=== PATIENT | female | born 1965 | race Two or more races ===

== ENCOUNTER 2025-03-26 10:30 | Inpatient (IN) | payer MEDICAID, SELFPAY ==
[2025-03-26] VITALS (82 sets, daily range): BP systolic 72–193; BP diastolic 50–134; PULSE 66–100; RESP 12–48; TEMP 36.9–38.8; O2SAT 77–100; BMI 35.6
--- NOTE | 2025-03-26 | XR_ITS ---
Examinations: MRI Brain without intravenous contrast. MRA brain without intravenous contrast. MRA carotids without intravenous contrast 3-D vascular reconstructions Date and time of exam: March 26, 2025, 1659 hours INDICATIONS: Altered mental status today, Acute-appearing right frontal lobe areas of edema on CT brain scan today Technique: Multiple axial and sagittal images of the brain have been obtained MRA brain carotid images without contrast obtained, including 3-D postprocessing, vascular maximum intensity projection images Findings: [place] is not enlarged. The optic chiasm and infundibular stalk are not remarkable. Prepontine and interpeduncular cisterns are not enlarged. No localized enlargement of the medulla or barbara. Fourth ventricle and cerebellar tonsils normal in position. Subacute hemorrhage is not seen. Fourth ventricle is midline. Mass in the cerebellopontine angle region is not evident. 7th and 8th nerve complexes exhibits symmetry. Globes are symmetrical with no retro-orbital mass. Increased white matter signal prominent Diffusion-weighted images demonstrate foci restricted diffusion including deficits on the ADC map, including right occipital lobe, left occipital lobe, bilateral frontal lobes, bilateral parietal lobes Mass-effect upon the ventricular system is not identified. MRA carotid images degraded by patient motion. MRA brain images no large vessel occlusions Impression: Multiple embolic-type foci of restricted diffusion bilateral occipital lobes, bilateral frontal and bilateral parietal lobes most consistent with acute infarcts I would recommend follow-up brain MRI post intravenous contrast to exclude less likely possibility of cerebral metastases
--- NOTE | 2025-03-26 10:38 | EDNOTE_ITS ---
Altered Mental Status RME/HPI General Chief Complaint: Altered Mental Status Stated Complaint: AMS Time Seen by Provider: 03/26/25 10:38 Arrival date/time: 03/26/25 10:30 RME / HPI RME / HPI narrative: DR. BATES MAIN ED EVALUATION: 59-year-old female with past medical history of diabetes mellitus and opioid use presents to the Emergency Department [facility] from home with complaint of altered mental status. Per EMS, patient was noted to have altered mental status with respiratory rate of 4 en route. Narcan was administered, total of 8 mg, resulting in improved mentation. Upon becoming more awake she complained of hurting in the bones , but continues to be altered. History is limited. Related Data Allergies Allergy/AdvReac Type Severity Reaction Status Date / Time No Known Allergies Allergy Verified 03/26/25 11:03 Review of Systems Review of Systems ROS Unobtainable: unobtainable due to mental status Past Medical History Past Medical History Comments PMH COMMENT: diabetes mellitus and opioid use ED Exam Narrative Physical exam: Constitutional: Awake, alert, nontoxic, no acute distress HEENT: NC, AT, EOMI Neck: Supple CV: RRR, no m/r/g Lungs: CTAB, no w/r/r, no respiratory distress. Abd: Soft, NT, NT, no HSM noted to palpation Extremities: Large ulceration in the right distal leg, anterior aspect; chronic venous changes in bilateral legs. Neuro: AAOx3, CN 2-12 GIBL, no acute neuro deficit noted. Skin: Warm, dry, intact Course Course Course Narrative: 1138h: Patient with history of diabetes, on methadone. Likely opiate overdose this morning. Did respond to 4 mg intranasal Narcan x 2 for total 8 mg prior to arrival with improved mentation though still quite sleepy on arrival. Was given an additional 0.4 mg IV Narcan with significant improvement in mentation as well as blood pressure though now is quite combative and requiring restraints. Patient did require BiPAP due to hypoxia and respiratory distress on arrival. ABG has been ordered and is currently pending at this time. Patient combative, stating that she hurts all over and stating 'I gotta get out of here , yelling loudly. Required dose of versed 2mg IV. Sepsis alert was called due to abnormal vitals and elevated rectal temperature. All labs pending at this time. Chest x-ray does show infiltrate in addition to pulmonary edema. Aspiration? Dose of Abx ordered in addition to lasix given concern for pb mild pulmonary edema possibly secondary to narcan used for narcotic reversal. 1237h: labs reviewed - bgl noted to be elevated 500's. Insulin dose ordered. 1245: Reviewed head CT findings, most consistent with acute right frontal lobe infarcts. A stroke alert was called. 1310h: Teleneurology evaluated patient. Stroke is noted on CT. Likely greater than 4 hours old. Patient does have renal dysfunction -unknown if new or not. GFR is 19. Teleneurology requesting numbers of family to discuss. ED had tried calling them, no answer. Numbers were given to neuro. 1324h: Teleneurology called back. Request that instead of CT angio we do an MRA of the head and neck as well as MRI brain without contrast. Ordered. 1358h: Patient going for MRI now. Family is at bedside and confirmed that patient's last known well was at 1030 last night. Patient was found on the floor by her at 5:00 this morning. He tried to arouse her and when he could not he left her there and went to work after he called patient's sister. Patient's sister arrived at around 9:00 this morning and found patient still lying on the floor of the bathroom. Patient sister reports that her medical history includes diabetes, asthma, hypertension, chronic right leg wound for the past year. Notes that she used to be on methadone but has been off methadone for a while as patient stopped the medication herself. Patient's lactate has come back elevated at 4. Blood pressure is in the 80s systolic. Patient's sister notes also that she has had a cough ongoing for the past few days. Given the cough, fever, abnormal lung sounds, x-ray findings, and lab results thus far, consistent with pneumonia. She is already receiving IV antibiotics now. Will give fluid bolus. 1450h: While preparing to take patient to MRI, they were unable to take her with BiPAP. When removing BiPAP, sats noted to dip down to the low 90s. Airway not secure. Decision made to intubate patient. See procedure note. Breath sounds heard bilaterally. Post intubation x-ray ordered. 1525h: Chest x-ray reviewed. Initial x-ray showing tube just at the right bronchus. Pulled back 2 cm and x-ray repeated. Repeat chest x-ray okay. Tube secured at 22 cm at the lip. 1800h: Patient currently in MRI. In stable condition at this time. Diagnoses include pneumonia, stroke, sepsis, UTI. Receiving IV fluids, IV antibiotics. Repeat lactate pending. Repeat blood gas pending as well. ICU has evaluated patient for admission. If MRI is negative, plan to admit at this facility. Patient is signed out to Dr. Wilkins pending MRI. Quality Measures none Orders Category Date Time Status 24 HR Medical Restraints Q2HR Care 03/26/25 10:30 Completed Pool Finisher NOW Care 03/26/25 10:38 Active Continuous Pulse Oximetry NOW Care 03/26/25 10:38 Completed EKG (ED ONLY) *Do not use* NOW Care 03/26/25 10:38 Completed Insert IV STAT Care 03/26/25 10:38 Active MRI Screening NOW Care 03/26/25 13:23 Active Consult to Neurology / Tele-Neurology Routine Cons 03/26/25 12:[address] angio stroke protocol Stat Exams 03/26/25 12:[address] head/brain wo con Stat Exams 03/26/25 11:28 Completed EKG (ED Only) Stat Exams 03/26/25 10:38 Draft MR stroke protocol brain wo con with MRA head and neck Exams 03/26/25 Ordered Stat XR chest 1V portable Stat Exams 03/26/25 10:38 Completed XR chest 1V post procedure Stat Exams 03/26/25 14:53 Completed ABG [Arterial Blood Gas] Stat Lab 03/26/25 15:42 Ordered ABG [Arterial Blood Gas] Stat Lab 03/26/25 16:23 Ordered Arterial Blood Gas Stat Lab 03/26/25 11:44 Completed B-Type Natriuretic Peptide Stat Lab 03/26/25 12:05 Completed Beta Hydroxybutyrate Stat Lab 03/26/25 15:02 Completed Blood Culture (Lab) Stat Lab 03/26/25 12:05 Received CBC Stat Lab 03/26/25 12:05 Completed Comprehensive Metabolic Panel Stat Lab 03/26/25 11:18 Completed Creatine Kinase Stat Lab 03/26/25 11:18 Completed Drug Screen,Urine Stat Lab 03/26/25 13:27 Completed Lactate (Lactic Acid) Stat Lab 03/26/25 13:36 Completed Lactic Acid, 3 HR Stat Lab 03/26/25 16:46 Ordered Magnesium Stat Lab 03/26/25 11:18 Completed Partial Thromboplastin Time Stat Lab 03/26/25 12:05 Completed Procalcitonin Stat Lab 03/26/25 11:18 Completed Prothrombin Time with INR Stat Lab 03/26/25 12:05 Completed Sputum Culture and Gram Stain Stat Lab 03/26/25 16:20 Received Troponin I Stat Lab 03/26/25 11:18 Completed Urinalysis Stat Lab 03/26/25 13:27 Completed Urine Culture Stat Lab 03/26/25 13:27 Received VBG [Venous Blood Gas] Stat Lab 03/26/25 11:18 Completed ALBUTEROL RT 3ml [Proventil Rt 3ml] Med 03/26/25 10:39 Discontinued 2.5 mg INH X1 ONE Acetaminophen Ivpb [Ofirmev Inj] Med 03/26/25 13:25 Discontinued 1,000 mg in 100 ml IV NOW Albuterol/Ipratr Rt Jennifer [Duoneb Rt Jennifer] Med 03/26/25 10:39 Discontinued 3 ml INH X1 ONE Dexmedetomidine 400 Mcg Ivpb [Precedex Ivpb] Med 03/26/25 14:22 Active 400 mcg in 100 ml IV 0.2 mcg/kg/hr Doxycycline Inj [Vibramycin Inj] 100 mg Med 03/26/25 12:40 Discontinued Sodium Chloride 0.9% (Pop) [NS 0.9% mini bag] 100 ml IV X1 Etomidate Inj [Amidate Inj] Med 03/26/25 14:12 Discontinued 20 mg .ROUTE .STK-MED ONE Furosemide Inj [Lasix Inj] Med 03/26/25 11:27 Discontinued 60 mg IVP X1 ONE Insulin Regular Med 03/26/25 12:36 Discontinued 10 unit IV X1 ONE Ketamine Inj Med 03/26/25 14:18 Discontinued 100 mg IVP X1 ONE Midazolam Inj [Versed Inj] Med 03/26/25 11:16 Discontinued 2 mg IV PRN ONE NALOXONE INJ (Syringe) [Narcan Inj (Syringe)] Med 03/26/25 10:39 Discontinued 0.4 mg IV X1 ONE Ringers Lactated 1000 ml [Lactated Ringers] 1,000 ml Med 03/26/25 17:51 Active IV 999 mls/hr Rocuronium Inj [Zemuron Inj] Med 03/26/25 14:13 Discontinued 100 mg .ROUTE .STK-MED ONE Rocuronium Inj [Zemuron Inj] Med 03/26/25 14:18 Discontinued 88 mg IV X1 ONE Sodium Chloride 0.9% 1000 ml [Ns] 1,000 ml Med 03/26/25 13:58 Discontinued IV 999 mls/hr Sodium Chloride Rt Jennifer 10% [NS Rt Jennifer 10%] Med 03/26/25 15:42 Discontinued 5 ml INH X1 ONE cefTRIAXone/D5w 1gm IV premix [Rocephin/D5w 1gm IV Med 03/26/25 12:40 Active premix] 1 gm in 50 ml IV QDAY BiPAP / CPAP NOW RT 03/26/25 11:10 Active Oxygen Delivery NOW RT 03/26/25 10:38 Active Sputum Induction PRN RT 03/26/25 15:45 Ordered Vital Signs Vital signs: Vital Signs Temperature 101.3 F H 03/26/25 10:30 Pulse Rate 94 03/26/25 10:30 Respiratory Rate 35 H 03/26/25 10:30 Blood Pressure 107/78 03/26/25 10:30 Pulse Oximetry (%) 98 03/26/25 10:30 Oxygen Delivery Method BiPAP 03/26/25 10:30 Fraction of Inspired Oxygen 100 03/26/25 10:30 PROCEDURES: Intubation Time out performed: Yes sedative: Ketamine Mg Given: 100 paralytic: Rocuronium Mg Given: 88 Laryngoscope: Ava (4) ET Tube Size: 7 ET Tube Uncuffed: No Tube Secured Depth (cm): 24 Tube Secured Location: lips Tube Placement Confirmation: visualized tube passing through cords, equal breath sounds bilaterally, no breath sounds over epigastrium and confirmation by capnometry Patient Tolerated Procedure: well and no complications Intubation Complications: none Altered Mental Status MDM Narrative MDM Narrative:: INancy, am scribing for and in the presence of Dr. Bates. Patient data External records reviewed:: EMS form Clinical information provided by:: EMS Social determinants that could affect healthcare access:: substance use Patient has the following chronic illnesses:: diabetes mellitus and opioid use How is presenting disease/condition affected by chronic disease/condition?: exacerbated by Evaluation data The following diagnostics were reviewed and interpreted by me:: lab results, radiology exam(s) and EKG tracing(s) (My interpretation: EKG performed at 1042 hours, sinus rhythm, rate 92, no STEMI ) Lab and/or radiology exams considered but not ordered:: none Interpretation Summary: Procedure(s): CT head/brain wo con Accession Number(s): [id number] cc: Rao Weller MD; Lila Bates MD; NO PRIMARY/FAMILY,PHYSICIAN~ Examination: CT brain head without contrast. 2-D sagittal coronal reconstructions Date and time of exam:March 26, 2025, 1230 hours INDICATIONS: Altered mental status today CTDI: vol (mGy):49.1 DLP: (mGycm):1036 Technique: Multiple CT axial sections of the brain have been obtained, 5 mm slice thickness. Contrast has not been administered. 2-D sagittal, coronal reconstructions have been obtained Low dose protocols were performed. One or more of the following dose reduction techniques were used; automated exposure control, adjustment of the mA and/or KV according to patient size, use of iterative reconstruction technique. Findings: Abnormal low density areas in the right frontal lobe which appear acute, axial image 13 measuring 16 mm and axial image 23, measuring 19 mm No acute hemorrhage Ventricles are normal in size Cranial vault intact IMPRESSION: Findings most consistent with acute right frontal lobe infarcts, recommend brain MRI MRA stroke protocol follow-up Dictated By: Rao Weller MD Procedure(s): XR chest 1V post procedure Accession Number(s): [id number] cc: Rao Weller MD; Lila Bates MD; NO PRIMARY/FAMILY,PHYSICIAN~ Examination: AP chest single view TECHNIQUE: AP portable supine chest single view Date and time: 03/26/2025 1524 hours, comparison March 26, 2025 INDICATIONS: Hypoxic respiratory failure postintubation FINDINGS: Endotracheal tube tip 11 mm above jerardo Heart failure with cardiomegaly vascular congestion no pulmonary edema Bibasilar pneumonia Prominent osteopenia IMPRESSION: Heart failure pattern Significant bibasilar pneumonia and/or edema, clinical correlation advised Endotracheal tube tip 11 mm above jerardo Dictated By: Rao Weller MD Procedure(s): XR chest 1V portable Accession Number(s): [id number] cc: Rao Weller MD; Lila Bates MD~ Examination: AP chest single view TECHNIQUE: AP portable semiupright chest single view Date and time: March 26, 2025 1053 hours INDICATIONS: Shortness of breath today. FINDINGS: Bibasilar pneumonia. Mild prominence left ventricle Moderate vascular congestion including central vascular engorgement Prominent osteopenia IMPRESSION: Bibasilar pneumonia Suspicious for mild associated heart failure Dictated By: Rao Weller MD Medications / Prescriptions Medications or Prescriptions considered but not ordered:: none Medication administrations:: Medication Administration History Ceftriaxone Sodium/Dextrose (Rocephin/D5w 1gm Iv Premix) 1 gm in 50 mls @ 100 mls/hr IV QDAY CRIS Stop: 04/02/25 12:39 Last Infusion: 03/26/25 14:09 Dose: Infused Documented By: Admin: 03/26/25 13:09 Dose: 100 mls/hr Documented By: ELLIE Dexmedetomidine/Sodium Chloride (Precedex Ivpb) 400 mcg in 100 mls @ 4.423 mls/hr IV .[id number] PRN; Protocol PRN Reason: Per PROTOCOL Stop: 04/25/25 14:17 Last Titration: 03/26/25 15:28 Dose: 0.2 mcg/kg/hr, 4.423 mls/hr Documented By: Admin: 03/26/25 15:27 Dose: 0.2 mcg/kg/hr, 4.423 mls/hr Documented By: ELLIE Co-signed By: GISEL Lactated Ringer's (Lactated Ringers) 1,000 mls @ 999 mls/hr IV .Q1H1M ONE Stop: 03/26/25 18:51 Discontinued Medications Albuterol (Albuterol Rt 2.5 Mg/3 Ml Nebu) 2.5 mg INH X1 ONE Stop: 03/26/25 10:40 Last Admin: 03/26/25 11:41 Dose: 2.5 mg Documented By: DANIE Albuterol/Ipratropium (Albuterol/Ipratropium (Duoneb) Rt Jennifer 3 Ml Nebu) 3 ml INH X1 ONE Stop: 03/26/25 10:40 Last Admin: 03/26/25 11:41 Dose: 3 ml Documented By: DANIE Etomidate (Etomidate Inj 2 Mg/Ml Vial 10 Ml) Confirm Administered Dose 20 mg .ROUTE .STK-MED ONE Stop: 03/26/25 14:13 Furosemide (Furosemide Inj 10 Mg/Ml 4ml Vial) 60 mg IVP X1 ONE Stop: 03/26/25 11:28 Last Admin: 03/26/25 11:36 Dose: 60 mg Documented By: KORINA Doxycycline Hyclate 100 mg/ (Sodium Chloride) 100 mls @ 100 mls/hr IV X1 ONE Stop: 03/26/25 13:39 Last Infusion: 03/26/25 16:43 Dose: Infused Documented By: Admin: 03/26/25 13:35 Dose: 100 mls/hr Documented By: ELLIE Acetaminophen (Ofirmev Inj) 1,000 mg in 100 mls @ 250 mls/hr IV NOW ONE Stop: 03/26/25 13:48 Last Infusion: 03/26/25 14:10 Dose: Infused Documented By: Admin: 03/26/25 13:35 Dose: 250 mls/hr Documented By: ELLIE Sodium Chloride (Ns) 1,000 mls @ 999 mls/hr IV .Q1H1M ONE Stop: 03/26/25 14:58 Last Infusion: 03/26/25 15:00 Dose: Infused Documented By: Admin: 03/26/25 14:09 Dose: 999 mls/hr Documented By: ELLIE Insulin Human Regular (Insulin Hum Regular 1 Unit/0.01 Ml (Per Unit)) 10 unit IV X1 ONE Stop: 03/26/25 12:37 Last Admin: 03/26/25 13:08 Dose: 10 unit Documented By: ELLIE Co-signed By: Ketamine HCl (Ketamine 50 Mg/Ml Vial 10 Ml) 100 mg IVP X1 ONE Stop: 03/26/25 14:19 Last Admin: 03/26/25 14:39 Dose: 100 mg Documented By: ELLIE Midazolam HCl (Midazolam Inj 1 Mg/Ml Vial 2 Ml) 2 mg IV PRN ONE Stop: 03/26/25 11:17 Last Admin: 03/26/25 11:36 Dose: 2 mg Documented By: KORINA Naloxone HCl (Naloxone Inj 1 Mg/Ml Syringe 2 Ml) 0.4 mg IV X1 ONE Stop: 03/26/25 10:40 Last Admin: 03/26/25 10:45 Dose: 0.4 mg Documented By: ELLIE Rocuronium [place] (Rocuronium Inj 10 Mg/Ml Vial 10 Ml) 88 mg 1 mg/kg (88 mg) IV X1 ONE Stop: 03/26/25 14:19 Last Admin: 03/26/25 14:45 Dose: 88 mg Documented By: ELLIE Co-signed By: Rocuronium [place] (Rocuronium Inj 10 Mg/Ml Vial 10 Ml) Confirm Administered Dose 100 mg .ROUTE .STK-MED ONE Stop: 03/26/25 14:14 Sodium Chloride (Sodium Chloride Rt 10% 15 Ml Nebu) 5 ml INH X1 ONE Stop: 03/26/25 15:43 see above Consultations Consultation(s) initiated? (list below): Yes Consultation #1 (Physician, Specialty, Details): See above under course. Diagnosis Differential diagnosis altered mental status: other (opioid overdose, diabetic foot infection/osteomyelitis, cellulitis) Most likely diagnosis given after review of the tests above:: Pneumonia CVA Uncontrolled diabetes mellitus Sepsis UTI Admission Indicated Admission indicated?: indicated Admission Request Was there a request for admission?: Yes Admission Attestation Admission request attestation: Discussed case with stone repairer regarding admission. Discussed patients ED course, exam findings, labs, and radiology results. The stone repairer agrees to accept the patient for admission pending the MRI brain. Disposition Plan Disposition Plan: Admit Critical Care Time Critical Care Time Critical Care Time: Yes Total Critical Care Time (min.): 72 Attestation: The high probability of a clinically significant, sudden or life threatening deterioration of the [cardiovascular and neurologic] system(s) required my full and direct attention, intervention and personal management. The aggregate critical care time was [72] minutes. This time is in addition to time spent performing reported procedures but includes the following: [x] Data Review and interpretation [x] Patient assessment and monitoring of vital signs [x] Documentation [x] Medication orders and management Discharge Plan Plan Patient Disposition: Admit Acute Care w/in Hospital Patient condition on transfer: Stable Prescriptions/Referrals Referrals: No Primary/Family,Physician [Primary Care Provider] - In 1 week Problem List Clinical Impression: Pneumonia, Ischemic cerebrovascular accident (CVA), Uncontrolled diabetes mellitus Patient/Caregiver Discharge Instructions Print Language: [place] Stand Alone Forms: Rosa Elena Award Info., Patient Portal Info Letter
--- NOTE | 2025-03-26 10:38 | EKG_ITS ---
[facility] Test Date: 2025-03-26 Pat Name: MARCOS MULLER Department: Room: - Gender: Female Director Of Respiratory Therapy: : 1965 Requested By: Lila Combs Order Number: [id number] Reading MD: Lila Combs Measurements Intervals [place] Rate: 92 P: 56 RI: 173 QRS: 32 QRSD: 90 T: 64 QT: 356 QTc: 442 Interpretive Statements SINUS RHYTHM LOW QRS VOLTAGE IN PRECORDIAL LEADS [QRS DEFLECTION < 1.0 mV IN CHEST LEADS] No previous ECG available for comparison /store/S0/[id number].pdf
[2025-03-26] MEDS: NALOXONE INJ 1 MG/ML SYRINGE 2 ML 0.4 MG IV (10:45)
--- NOTE | 2025-03-26 11:01 | PC.NURSE ---
rt at bedside to place pt on bipap
--- NOTE | 2025-03-26 11:28 | XR_ITS ---
Examination: CT brain head without contrast. 2-D sagittal coronal reconstructions Date and time of exam:March 26, 2025, 1230 hours INDICATIONS: Altered mental status today CTDI: vol (mGy):49.1 DLP: (mGycm):1036 Technique: Multiple CT axial sections of the brain have been obtained, 5 mm slice thickness. Contrast has not been administered. 2-D sagittal, coronal reconstructions have been obtained Low dose protocols were performed. One or more of the following dose reduction techniques were used; automated exposure control, adjustment of the mA and/or KV according to patient size, use of iterative reconstruction technique. Findings: Abnormal low density areas in the right frontal lobe which appear acute, axial image 13 measuring 16 mm and axial image 23, measuring 19 mm No acute hemorrhage Ventricles are normal in size Cranial vault intact IMPRESSION: Findings most consistent with acute right frontal lobe infarcts, recommend brain MRI MRA stroke protocol follow-up
--- NOTE | 2025-03-26 11:30 | PC.NURSE ---
pt increased agitation md aware and ordered versed ivp. pt is moving all over bed and pulling her lines and monitor off. pt unable to sitt still on gurney. placed side pad on bed for safety.
[2025-03-26 11:36] LABS: Base Excess, Venous -10 (-3-3); O2 Saturation, Venous 64 % (96-97); PCO2, Venous 48 mmHg (36-56); PO2, Venous 37 mmHg (15-58); pH, Venous 7.19 (7.33-7.66)
[2025-03-26] MEDS: MIDAZOLAM INJ 1 MG/ML VIAL 2 ML 2 MG IV (11:36)
[2025-03-26] MEDS: FUROSEMIDE INJ 10 MG/ML 4ML VIAL 60 MG IVP (11:36)
[2025-03-26] MEDS: ALBUTEROL/IPRATROPIUM (Duoneb) RT SOL 3 ML NEBU INH (11:41)
[2025-03-26] MEDS: ALBUTEROL RT 2.5 MG/3 ML NEBU INH (11:41)
[2025-03-26 11:50] LABS: Base Excess -8 (-3-3); HCO3 18 mEq/L (20-26); Inspired Oxygen, FIO2 100 %; O2 Saturation 100 % (91-98); PCO2 40 mmHg (32.0-48.0); PO2 146 mmHg (83-108); pH, Arterial 7.27 (7.35-7.45)
[2025-03-26 11:52] LABS: Allen Test Performed/OK; Puncture Site Left Radial
[2025-03-26 12:13] LABS: Alanine Aminotransferase 61 U/L (10-49); Albumin, Serum 4.1 gm/dL (3.5-5.0); Albumin/Globulin Ratio 1.5 (1.2-2.2); Alkaline Phosphatase 87 U/L (46-116); Anion Gap 19 (7-16); Aspartate Amino Transferase 146 U/L (0-34); BUN/Creatinine Ratio 5 Ratio (12-20); Bilirubin,Total 1.6 mg/dL (0.3-1.2); Blood Urea Nitrogen 14 mg/dL (9-23); Calcium 9.4 mg/dL (8.3-10.6); Calcium (Corrected) 9.4 mg/dL (8.5-10.1); Carbon Dioxide 18.1 mMol/L (20.0-31.0); Chloride 99 mMol/L (98-107); Creatinine (Component) 2.8 mg/dL (0.6-1.3); Estimated Creatinine Clearance 22.6 mL/min (>60); Globulin 2.8 gm/dL (2.3-3.5); Magnesium 2.0 mg/dL (1.6-2.6); Osmolality,Calculated 297 (275-295); Potassium 4.3 mMol/L (3.4-5.1); Sodium 136 mMol/L (136-145); Total Protein 6.9 gm/dL (5.7-8.2); eGFR 19 See Note
[2025-03-26 12:18] LABS: Troponin I 0.427 ng/mL (0.0-0.045)
[2025-03-26 12:19] LABS: Basophils # (Auto) 0.1 Thou/mm3 (0.0-0.2); Basophils % (Auto) 0 % (0-2.5); Eosinophils # (Auto) 0.1 Thou/mm3 (0.0-0.5); Eosinophils % (Auto) 1 % (0-10); Hematocrit 48.3 % (36.0-46.0); Hemoglobin 15.1 g/dL (12.0-16.0); Immature Granulocytes Auto 0.12 Thou/mm3 (0.00-0.00); Lymphocytes # (Auto) 1.2 Thou/mm3 (1.0-4.8); Lymphocytes % (Auto) 9 % (10-50); Mean Corpuscular HGB Conc 31.3 g/dl (31.0-37.0); Mean Corpuscular Hemoglobin 29.5 pg (25.0-35.0); Mean Corpuscular Volume 95 fL (80-100); Monocytes # (Auto) 0.7 Thou/mm3 (0.0-0.8); Monocytes % (Auto) 6 % (0-12); Neutrophils # (Auto) 10.9 Thou/mm3 (1.8-7.7); Neutrophils % (Auto) 83 % (37-80); Nucleated Red Blood Cell # 0.21 Thou/mm3 (0.00-0.00); Nucleated Red Blood Cell % 2 /100 WBC (0); Platelet Count 279 Thou/mm3 (140-440); RDW Standard Deviation 54.2 fL (36.4-46.3); Red Blood Count 5.11 Miln/mm3 (4.00-5.20); White Blood Count 13.1 Thou/mm3 (3.6-11.0)
[2025-03-26 12:20] LABS: Glucose 550 mg/dL (74-106)
[2025-03-26 12:35] LABS: INR 1.2 (0.9-1.3); Partial Thromboplastin Time 26.0 Seconds (22.0-36.0); Prothrombin Time 13.3 Seconds (9.0-12.2)
--- NOTE | 2025-03-26 12:45 | PC.NURSE ---
md at bedside and pt ct is showing infarct and she wants stroke alert called. sister is at bedside and stated that she talk to her yesterday night on phone around 2230. so last known well is called at 2230 yesterday.
[2025-03-26] MEDS: INSULIN HUM REGULAR 1 UNIT/0.01 ML (PER UNIT) 10 UNIT IV (13:08)
[2025-03-26] MEDS: cefTRIAXone/D5w 1gm IV premix 1 GM/50 ML BAG IV (13:09)
[2025-03-26 13:24] LABS: B-Type Natriuretic Peptide 297 pg/mL (0-100)
--- NOTE | 2025-03-26 13:24 | ESCONSULT_ITS ---
Tele Neuro Consultation Consultation Date 03/26/25 Most Recent Vital Signs Last Vital Signs Temp 101.3 F H 03/26/25 10:30 Pulse 89 03/26/25 13:06 Resp 23 H 03/26/25 13:06 BP 91/74 03/26/25 13:06 Pulse Ox 94 L 03/26/25 13:06 O2 Del Method BiPAP 03/26/25 13:06 O2 Flow Rate 15 03/26/25 10:59 FiO2 100 03/26/25 11:57 Laboratory-Coagulation Panel PT 13.3 Seconds (9.0-12.2) H 03/26/25 12:05 INR 1.2 (0.9-1.3) 03/26/25 12:05 APTT 26.0 Seconds (22.0-36.0) 03/26/25 12:05 Consultation Narrative [facility] Tele[facility]urology Consult Services Patient Name:???Vashti Ross Date of :???1965 Identification Number:???N - [id number] Date of Service:???03/26/2025 12:46:36 Diagnosis:?I63.89 - Cerebrovascular accident (CVA) due to other mechanism ([facility]) Impression: ?59F presented after she was found down with AMS and pinpoint pupils and HCT shows 2 right frontal lobe infarcts. Hx methadone use and had some response to narcan but now comatose again. Not a thrombolytic candidate 2/2 unable to verify care eligibility and completed infarcts noted on HCT. Stat vessel imaging (MRA H&N and MRI wo) to assure not an IR candidate given exam out of proportion to HCT findings but AMS may be 2/2 opiate overdose given response to narcan. Rec toxic metabolic infectious workup (U/A, COVID/flu +/-RSV, chest xray, UDS, NH3 etc as per ED MD/primary team discretion), rec admission for CVA workup. ASA 325 mg for now (or ASA rectally) Our recommendations are outlined below. Recommendations: ? Stroke/Telemetry Floor ? Neuro Checks (Q1) ? Bedside Swallow Eval ? DVT Prophylaxis ? IV Fluids, Normal Saline ? Head of Bed 30 Degrees ? Euglycemia and Avoid Hyperthermia (PRN Acetaminophen) ? Aspirin per rectum ? Antihypertensives PRN if Blood pressure is greater than 220/120 or there is a concern for End organ damage/contraindications for permissive HTN. If blood pressure is greater than 220/120 give labetalol PO or IV or Vasotec IV with a goal of 15% reduction in BP during the first 24 hours. ?TTE with bubble (if not done in the past 2-3 months) Sign Out: ? Discussed with Emergency Department Provider Advanced Imaging: Advanced Imaging Deferred because: Advanced Imaging not obtained at this time. Reason: ED MD to arrange for Stat MRA H&N and MRI brain wo imaging as Cr too elevated for CTA H&N Metrics: Last Known Well: 03/26/2025 08:45:00 Dispatch Time: 03/26/2025 12:46:36 Arrival Time: 03/26/2025 10:38:00 Initial Response Time: 03/26/2025 12:49:32Symptoms: found down with AMS and pinpoint pupils and HCT shows 2 right frontal lobe infarcts. Initial patient interaction: 03/26/2025 12:52:09 NIHSS Assessment Completed: 03/26/2025 12:56:17Patient is not a candidate for Thrombolytic. Thrombolytic Medical Decision: 03/26/2025 12:56:20Patient was not deemed candidate for Thrombolytic because of following reasons: Significant head trauma or stroke in previous [address] Head: I personally reviewed all the CT images that were available to me and it showed: 2 acute infarcts in right frontal lobe. Primary Provider Notified of Diagnostic Impression and Management Plan on: 03/26/2025 13:23:40 History of Present Illness:Patient is a 59 year old Female. Patient was brought by EMS for symptoms of found down with AMS and pinpoint pupils and HCT shows 2 right frontal lobe infarcts. 59F was found down in bathroom of her home and HCT shows 2 right frontal lobe infarcts so code stroke was called. Had reportedly been in bathroom for 1 hour. Had pinpoint pupils and decreased respirations. Was hypotensive and hypoxic in the 80s and altered. Got narcan with EMS x 2 with EMS and then another dose in ED. She is on methadone at home. Had family at the house when EMS arrived but limited history was given to EMS. Patient is unable to give own history so history taken from review of the medical record and from EMS and/or family. In ED got versed 2 mg to get HCT scan. She was combative after the narcan in the ED and now she is on bipap and comatose again. HCT shows 2 acute infarcts in right frontal lobe and code stroke was called. LKN: 8:45 to 9:15 am possibly Sister [phone] and mother [phone] were called and no answer Past Medical History: Other PMH:? methadone use Medications: Anticoagulant use:??Unknown Antiplatelet use:?Unknown Reviewed EMR for current medications Allergies:? Reviewed Social History: Smoking: No Alcohol Use: No Drug Use: No Family History: There is no family history of premature cerebrovascular disease pertinent to this consultation ROS : 14 Points Review of Systems was performed and was negative except mentioned in HPI. Past Surgical History: There Is No Surgical History Contributory To Today?s Visit NIHSS may not be reliable due to: Patient is comatose Examination: BP(94/63),?Pulse(91),?Blood Glucose(550) 1A: Level of Consciousness - Postures or Unresponsive?+ 3 1B: Ask Month and Age - Could Not Answer Either Question Correctly?+ 2 1C: Blink Eyes & Squeeze Hands - Performs Both Tasks?+ 0 2: Test Horizontal Extraocular Movements - Normal?+ 0 3: Test Visual Meyer - No Visual Loss?+ 0 4: Test Facial Palsy (Use Grimace if Obtunded) - Normal symmetry?+ 0 5A: Test Left Arm Motor Drift - No Movement?+ 4 5B: Test Right Arm Motor Drift - No Movement?+ 4 6A: Test Left Leg Motor Drift - No Movement?+ 4 6B: Test Right Leg Motor Drift - No Movement?+ 4 7: Test Limb Ataxia (FNF/Heel-Palma) - Does Not Understand?+ 0 8: Test Sensation - Complete Loss: Cannot Sense Being Touched At All?+ 2 9: Test Language/Aphasia - Coma/Unresponsive?+ 3 10: Test Dysarthria - Mute/Anarthric?+ 2 11: Test Extinction/Inattention - No abnormality?+ 0 NIHSS Score:?28 NIHSS Free Text :?comatose, no spontaneous movements, no WD to pain, + doll's Pre-Morbid Modified [place] Scale:Unable to assess Spoke with :?Dr. Lila Grady This consult was conducted in real time using interactive audio and video technology. Patient was informed of the technology being used for this visit and agreed to proceed. Patient located in hospital and provider located at home/office setting. Patient is being evaluated for possible acute neurologic impairment and high probability of imminent or life-threatening deterioration. I spent total of 37 minutes providing care to this patient, including time for face to face visit via telemedicine, review of medical records, imaging studies and discussion of findings with providers, the patient and/or family. Dr Sachin Garcia [facility] For Inpatient follow-up with [facility] physician please call [facility] at . As we are not an outpatient service for any post hospital discharge needs please contact the hospital for assistance. If you have any questions for the [facility] physicians or need to reconsult for clinical or diagnostic changes please contact us via [facility] at . Signature :Mendel Garcia
[2025-03-26 13:31] LABS: Collection Type, Urine Clean Catch
[2025-03-26] MEDS: ACETAMINOPHEN IVPB 1,000 MG/100 ML VIAL 250 MG IV (13:35)
[2025-03-26] MEDS: DOXYCYCLINE INJ 100 MG in SODIUM CHLORIDE 0.9% (POP) 100 ML IV (13:35)
--- NOTE | 2025-03-26 13:37 | PC.CC ---
Richelle OCONNELL and Stroke and Sepsis Coordinator, Mamie RN made contact with [facility] as the patient does not have family at bedside and patient is requiring some medical consensus. ANISH and Mamie attempted to contact family on demographics but one number was disconnected and the other one no one answered. [facility] will [facility] out to the home and will make contact with HAILE Hatch
[2025-03-26 13:43] LABS: Creatine Kinase 9752 U/L (34-171); Procalcitonin 43.23 ng/ml (0.0-0.49)
[2025-03-26 13:55] LABS: Lactate (Lactic Acid) 4.7 mMol/L (0.4-2.0)
[2025-03-26] MEDS: SODIUM CHLORIDE 0.9% 1000 ML 1,000 ML 999 ML IV ×2 (14:09→20:00)
[2025-03-26 14:10] LABS: Bacteria,Urine 4+; Bilirubin,Urine Negative (Negative); Blood,Urine 3+ (Negative); Calcium Oxalate Crystals,Urine 3+; Color,Urine Drk-Yellow (Lt Yel-Yel); Glucose, Urine 3+ (Negative); Ketones,Urine 1+ (Negative); Leukocyte Esterase,Urine Positive (Negative); Nitrite,Urine Negative (Negative); PH,Urine 5.5 (5.0-7.0); Protein,Urine 2+ (Neg - Trace); RBC,Urine 10 /hpf (0-3); Specific Gravity,Urine 1.024 (1.001-1.035); Squamous Epithelial Cell,Urine 10 /hpf (0-5); Urobilinogen,Urine 2.0 mg/dL (0.0-1.0); WBC,Urine 112 /hpf (0-5)
[2025-03-26 14:13] LABS: Clarity,Urine Turbid (Clear/Hazy)
[2025-03-26 14:18] LABS: Amphetamine/Methamp Scrn,U Positive (Negative); Barbiturate Screen,Urine Negative (Negative); Benzodiazepines Screen,Urine Negative (Negative); Benzoylecgonine Screen, Ur Negative (Negative); Fentanyl Screen,Urine Negative (Negative); Opiate Screen,Urine Negative (Negative); THC Screen,Urine Positive (Negative)
[2025-03-26] MEDS: KETAMINE 50 MG/ML VIAL 10 ML 100 MG IVP (14:39)
[2025-03-26] MEDS: ROCURONIUM INJ 10 MG/ML VIAL 10 ML 88 MG IV (14:45)
--- NOTE | 2025-03-26 14:50 | PC.NURSE ---
pt intubated by doctor Grady. pt intubated with size 7 tube and placement 24 at lip, + color change on detector, and lung sound heard bilateral with + chest rise a fall. rt also at bedside.
--- NOTE | 2025-03-26 14:53 | XR_ITS ---
Examination: AP chest single view TECHNIQUE: AP portable supine chest single view Date and time: 03/26/2025 1524 hours, comparison March 26, 2025 INDICATIONS: Hypoxic respiratory failure postintubation FINDINGS: Endotracheal tube tip 11 mm above jerardo Heart failure with cardiomegaly vascular congestion no pulmonary edema Bibasilar pneumonia Prominent osteopenia IMPRESSION: Heart failure pattern Significant bibasilar pneumonia and/or edema, clinical correlation advised Endotracheal tube tip 11 mm above jerardo
[2025-03-26 15:18] LABS: Beta Hydroxybutyrate 0.3 mmol/L (<0.6)
--- NOTE | 2025-03-26 15:22 | PC.NURSE ---
MD Grady moved et tube according to xray placement of tube 22cm at lip.
[2025-03-26] MEDS: DEXMEDETOMIDINE 400 MCG IVPB 400 MCG/100 ML BAG IV (15:27)
[2025-03-26 16:46] LABS: Reflex Lactate? Y
--- NOTE | 2025-03-26 17:43 | PC.NURSE ---
pt is in MRI
--- NOTE | 2025-03-26 17:49 | PC.NURSE ---
pt brought in by ambulance due to altered mental status found in bathroom on the ground by family. unknown down time. per ems pt had pinpoint pupils and low/shallow resp rate of 8 so Narcan 8mg was given IN in total. pt bs was 554 and has hx of dm, pt s/p narcan woke up and had low o2 sat in the 90s and became more alert, so pt was placed on o2 and gcs of 11/12. pt still confused. breathing labored and even. pt is on alarm security or surveillance monitor and pulse ox doctor vazquez at bedside. pt will be placed on bipap and is not keeping monitor and line in place, rt called to bedside.
--- NOTE | 2025-03-26 18:41 | PC.NURSE ---
pt is back from mri
--- NOTE | 2025-03-26 18:41 | PC.NURSE ---
removed old linen and cleaned pt.
[2025-03-26 18:49] LABS: Base Excess -9 (-3-3); HCO3 21 mEq/L (20-26); Inspired Oxygen, FIO2 100 %; O2 Saturation 90 % (91-98); PCO2 58 mmHg (32.0-48.0); PO2 68 mmHg (83-108)
[2025-03-26 18:53] LABS: Lactic Acid, 3 HR 4.4 mMol/L (0.4-2.0)
[2025-03-26 18:54] LABS: Allen Test Performed/OK; Puncture Site Right Radial; pH, Arterial 7.16 (7.35-7.45)
[2025-03-26] MEDS: RINGERS LACTATED 1000 ML 1,000 ML 999 ML IV (18:57)
--- NOTE | 2025-03-26 18:58 | ECHO_ITS ---
Transthoracic Echo Report Ht (in): 62 Wt (lb): 195 Exam Location: Echo Lab Status: Emergency Mount Loader: Maddy Sosa Indications: Procedure Performed: BP: 87 / 58 HR: 78 MEASUREMENTS (Male / Female) Normal Values 2D ECHO LV Diastolic Diameter PLAX 4.0 cm 4.2 - 5.9 / 3.9 - 5.3 cm LV Systolic Diameter PLAX 3.0 cm IVS Diastolic Thickness 1.1 cm 0.6 - 1.0 / 0.6 - 0.9 cm LVPW Diastolic Thickness 1.1 cm 0.6 - 1.0 / 0.6 - 0.9 cm LV Relative Wall Thickness 0.6 LVOT Diameter 1.8 cm LA Systolic Diameter LX 3.4 cm 3.0 - 4.0 / 2.7 - 3.8 cm LV Ejection Fraction MOD BP 43.2 % >= 55 % LV Cardiac Index MOD BP 1549.5 cm?/min?m? LV Ejection Fraction MOD 4C 45.8 % LV Cardiac Index MOD 4C 1506.7 cm?/min?m? LV Ejection Fraction 4C AL 45.5 % LV Cardiac Index 4C AL 1500.8 cm?/min?m? LV Ejection Fraction MOD 2C 40.5 % LV Cardiac Index MOD 2C 1467.9 cm?/min?m? LV Ejection Fraction 2C AL 40.7 % LV Cardiac Index 2C AL 1481.8 cm?/min?m? LA Volume Index 19.5 cm?/m? 16 - 28 cm?/m? Ascending Aorta Diameter 2.2 cm M-MODE Aortic Root Diameter MM 2.4 cm LA Systolic Diameter MM 4.1 cm LA Ao Ratio MM 1.7 AV Cusp Separation MM 1.9 cm DOPPLER AV Peak Velocity 123.0 cm/s AV Peak Gradient 6.1 mmHg AV Mean Gradient 4.0 mmHg AV Velocity Time Integral 26.4 cm AI Peak Velocity 406.0 cm/s AI Peak Gradient 65.9 mmHg AI Pressure Half Time 751.0 ms LVOT Peak Velocity 93.1 cm/s LVOT Peak Gradient 3.5 mmHg LVOT Velocity Time Integral 14.5 cm LVOT Cardiac Index 1432.9 cm?/min?m? AV Area Cont Eq vti 1.4 cm? AV Area Cont Eq pk 1.9 cm? MV Area PHT 3.9 cm? MR Peak Velocity 327.0 cm/s MR Peak Gradient 42.8 mmHg Mitral E Point Velocity 49.0 cm/s Mitral A Point Velocity 74.7 cm/s Mitral E to A Ratio 0.7 LV E' Lateral Velocity 4.1 cm/s Mitral E to LV E' Lateral Ratio 11.9 LV E' Septal Velocity 3.4 cm/s Mitral E to LV E' Septal Ratio 14.5 PV Peak Velocity 78.7 cm/s PV Peak Gradient 2.5 mmHg FINDINGS Left Ventricle Normal left ventricular size, wall thickness. Normal left ventricular diastolic filling pattern for age. The ejection fraction is visually estimated at 35-40%. Global left ventricular systolic function is moderately decreased. There is grade I diastolic dysfunction of the left ventricle (impaired relaxation pattern). Right Ventricle The right ventricle is normal in size. The right ventricular systolic function is mildly decreased. Left Atrium The left atrium is normal by two-dimensional, color flow and Doppler imaging with no structural abnormalities, no thrombus formation present. Right Atrium The right atrium is normal by two-dimensional imaging, color flow and Doppler imaging with no structural abnormalities, no thrombus formation present. Atrial Septum The interatrial septum appears normal with no evidence of a shunt. Aorta The aorta is normal by two-dimensional, color flow and Doppler interrogation. Mitral Valve The mitral valve is normal by two-dimensional, color flow and Doppler interrogation. Mild mitral regurgitation. Aortic Valve [id number] aortic valve regurgitation. Tricuspid Valve There is trace tricuspid valve regurgitation. Small vegetation seen on the tricuspid valve. Pulmonic Valve The pulmonic valve is not well visualized. There is no significant pulmonic valve regurgitation. Vessels The pulmonary artery appears normal. The inferior vena cava pulmonary and hepatic veins appear normal. Pericardium The pericardium is normal by two-dimensional imaging. There is no significant pericardial effusion. CONCLUSIONS Indication: stroke Normal size left bentricle with mild apical and global hypokinesis LVEF 40-45% Evidence of Tricuspid valve vegetation suggestive of endocarditis The RV is normal in size. The right ventricular systolic function is mildly decreased. Aortic valve sclerosis thickened wih mild aortic regurgitation Mitral valve thickening with mild mitral regurgitation. Matilde Julian (Electronically Signed) Final Date: 28 March 2025 00:18
--- NOTE | 2025-03-26 19:05 | PC.NURSE ---
New order for ventilator changes per Dr. Grady via telephone and read back as follows: increase Respiratory rate to 28 and I-time to 0.5, notified RT at bedside of new orders
--- NOTE | 2025-03-26 19:10 | PC.LAC ---
Notified by Dr. Grady to adjust vent settings to Respirations to 28 and I-time to 0.5 notified RT of new order
--- NOTE | 2025-03-26 19:14 | XR_ITS ---
Examination: Retroperitoneal ultrasound, complete Technique: Multiple high resolution grayscale images of the retroperitoneum obtained, including kidneys and bladder. Exam date and time:March 26, 20252010 hours INDICATIONS: Acute renal insufficiency today on laboratory examination FINDINGS: Right kidney 9.7 cm renal cortex 1.4 cm Lateral 21 mm cyst Left kidney 10.6 cm renal cortex 2.0 cm Mild right and moderate left renal parenchymal scar formation No hydronephrosis Contracted urinary bladder IMPRESSION: Small kidneys, right renal cortical thinning Mild right and moderate left renal parenchymal scar formation
--- NOTE | 2025-03-26 19:29 | PC.NURSE ---
Clarified b/p parameters with Dr. Grady-current B/p 103/66, Per Dr. Grady b/p navin.
--- NOTE | 2025-03-26 19:32 | PC.RT ---
per DR. og vent settings change to RR28, ti of .28 per abg results no other changes at this time spo2 92%
--- NOTE | 2025-03-26 19:46 | PC.NURSE ---
PT B/P 78/50 MAP 59, saturations 84% on ventilator. RT called to bedside-pt bagged, notified Dr. Grady via phone new orders received for levophed and 1 liter bolus-see OCT.
[2025-03-26] MEDS: Norepinephrine/D5W 8mg/250ml 8 MG/250 ML BAG 8.292 MG IV (20:00)
[2025-03-26 20:01] LABS: Thyroid Stimulating Hormone 1.59 uIU/mL (0.55-4.78)
--- NOTE | 2025-03-26 20:20 | ESHP_ITS ---
<Statement entered by Vj Anna MD - 03/28/25 22:39> Patient is intubated and could not take history, most of the history is taken from the chart review and the mother A 59-year-old female with significant past medical history of diabetes mellitus, hypertension, asthma, chronic right leg wound is brought to the hospital in view of altered sensorium. Patient appeared to be lying unconscious on the floor around 4 AM on the day of admission by her but he left for work and patient was lying down on the floor. Informed her mother and sister about her condition who came home and found the patient unconscious, patient following which EMS was called and patient was brought into the hospital. EMS noted that patient had pinpoint pupils and respiratory rate of 4 for which she was given multiple doses of Narcan to total dose of around 8 mg following which patient appears to be more alert. In the ED, patient was noted to have febrile episode of 101.3 ?F 8 and respiratory rate, 35 with low saturation for which patient was started on BiPAP. Later as patient is becoming more altered and hypoxic patient was intubated in the ED. Patient also noted to have bilateral inspiratory crackles for which she was given a dose of Lasix 60 mg and also later 2 L of fluid is given in view of suspected sepsis. Labs done at that time showed elevated WBC 13.1, creatinine 2.8, bicarb 18.1, lactate 4.7, glucose 550, AST 146, ALT 61, creatinine kinase 9752, procalcitonin 43.23. Also patient noted to have multiple embolic stroke on MRI with MR angiogram for which teleneuro was consulted and patient was started on aspirin and atorvastatin, could not give thrombolysis as patient came out of the window.. Patient is admitted into the ICU for acute hypoxic respiratory failure, severe sepsis, acute kidney injury and shock requiring the vasopressors. Patient plan of care was discussed with the Coal Handling Supervisor Dr. Miguel A Anna, PGY2 Documentation for date of: 03/26/25 HPI History of Present Illness History of present illness: Limited history as patient was being intubated A 59-year-old female with a past medical history of diabetes, hypertension, asthma, and a chronic right leg wound was brought to the Emergency Department after being found unresponsive. According to her mother at the bedside, the patient's last known well was at 10:30 PM the previous night and did not complain of anything. She was discovered on the bathroom floor at 5:00 AM by her , who was unable to rouse her. He contacted the patient's sister and then left for work. Patient's mother arrived at 9:00 AM and found the patient still on the floor, at which point she called for an ambulance. EMS noted pinpoint pupils, a respiratory rate of 4, hypotension, and hypoxia in the 80s. A total of 8 mg of Narcan was administered, which improved her mentation. ED course: In ED: Initial vitals were temperature 101.3, heart rate 94, respiratory rate 35, blood pressure 107/78, 88% on BiPAP. Patient did require BiPAP due to hypoxia and respiratory distress on arrival. CT head showed 2 right frontal lobe infarcts and no hemorrhage. ABG showed pH 7.27, PCO2 40. Bicarb level was 18.1, anion gap 19, creatinine 2.8, glucose 550, lactic acid 4.7, total bilirubin 1.6, AST 146, ALT 61, creatinine kinase 9752, troponin I 0.427, BNP 297, procalcitonin 43.23. Patient received 0.4 mg IV Narcan with significant improvement in mentation as well as blood pressure though was quite combative and requiring restraints. However became very combative and therefore received Versed 2 mg IV x 1. Chest x-ray shows cardiomegaly with vascular congestion and no pulmonary edema, possible bibasilar pneumonia. Urine tox showed positive for urine amphetamine/methamphetamine and marijuana. Patient was intubated in the ER as GCS was <8. Past medical history: As stated above Medications: pending med recon Allergies: NKDA Past surgical history: Unable to obtain at this time Past social history: Active smoker 18-mhtr-ywtq history, remote heroin abuse, methamphetamine use, marijuana use Patient has been admitted to ICU as intubated due to low GCS. Review of Systems Review of Systems Narrative Review of Systems: All systems reviewed negative unless stated otherwise above. Exam Vital Signs Temp Pulse Resp BP Pulse Ox O2 Del Method O2 Flow Rate 99.1 F 90 23 H 78/50 L 94 L BiPAP 15 03/26/25 19:00 03/26/25 20:00 03/26/25 19:20 03/26/25 20:00 03/26/25 19:20 03/26/25 13:26 03/26/25 10:59 FiO2 100 03/26/25 14:50 Narrative Exam General: Awake, slightly drowsy as being currently intubated, nontoxic, no acute distress HEENT: NC, AT, EOMI Neck: Supple CV: S1+S2. RRR. No m/r/g Lungs: Reduced air entry bilaterally, insp crackles, no work of breathing, no respiratory distress. Abd: Soft, nontender, nondistended, bowel sounds present, no organomegaly Extremities: From the neck to the top of the chest there was erythema noted likely from pressure lesion, large ulceration in the right distal leg in anterior aspect as well as pressure lesion; chronic venous changes in bilateral legs, pedal pulses present bilaterally Neuro: Limited however the patient was following command and no focal neurologic deficit could be appreciated Skin: Warm, dry, intact Results: Labs 03/28/25 15:25 03/28/25 15:25 Labs: Short CBC 03/26/25 Range/Units 12:05 WBC 13.1 H (3.6-11.0) Thou/mm3 Hgb 15.1 (12.0-16.0) g/dL Hct 48.3 H (36.0-46.0) % Plt Count 279 (140-440) Thou/mm3 BMP 03/26/25 11:18 Sodium 136 Potassium 4.3 Chloride 99 Carbon Dioxide 18.1 L BUN 14 Creatinine 2.8 H Glucose 550 H* Calcium 9.4 Cardiac Enzymes 03/26/25 Range/Units 11:18 Total Creatine Kinase 9752 H (34-171) U/L Troponin I 0.427 H* (0.0-0.045) ng/mL Liver Function 03/26/25 Range/Units 11:18 Total Bilirubin 1.6 H (0.3-1.2) mg/dL AST 146 H (0-34) U/L ALT 61 H (10-49) U/L Alkaline Phosphatase 87 (46-116) U/L Albumin 4.1 (3.5-5.0) gm/dL Urine 03/26/25 Range/Units 13:27 Urine Color Drk-Yellow A (Lt Yel-Yel) Urine Clarity Turbid A (Clear/Hazy) Urine pH 5.5 (5.0-7.0) Ur Specific [place] 1.024 (1.001-1.035) Urine Protein 2+ A (Neg - Trace) Urine Glucose (UA) 3+ A (Negative) ABG Interpretation ABG results: 03/26/25 03/26/25 03/26/25 11:18 11:44 16:23 ABG pH 7.27 L Cancelled ABG pCO2 40 Cancelled ABG pO2 146 H Cancelled ABG HCO3 18 L Cancelled ABG O2 Saturation 100 H Cancelled ABG Base Excess -8 L Cancelled VBG pH 7.19 L VBG pCO2 48 VBG pO2 37 VBG Base Excess -10 L 03/26/25 18:43 ABG pH 7.16 L* D ABG pCO2 58 H D ABG pO2 68 L D ABG HCO3 21 ABG O2 Saturation 90 L ABG Base Excess -9 L VBG pH VBG pCO2 VBG pO2 VBG Base Excess Quality Measures Quality Measures none Medications Home Medications and Allergies Allergies Allergy/AdvReac Type Severity Reaction Status Date / Time No Known Allergies Allergy Verified 03/26/25 11:03 Visit Medications Acetaminophen (Acetaminophen 325 Mg Tablet) 650 mg PO Q4HR PRN PRN Reason: Pain Scale 1-3 fever >100.4 Stop: 04/25/25 18:57 Albuterol/Ipratropium (Albuterol/Ipratropium (Duoneb) Rt Jennifer 3 Ml Nebu) 3 ml INH Q6HRRT [facility] Stop: 04/26/25 00:59 Aspirin (Aspirin Ec 81 Mg Tabec) 81 mg PO QDAY [facility] Stop: 04/26/25 08:59 Atorvastatin Calcium (Atorvastatin Calcium 20 Mg Tablet) 80 mg PO HS [facility] Stop: 04/25/25 20:59 Clopidogrel Bisulfate (Clopidogrel Bisulfate 75 Mg Tablet) 75 mg PO QDAY [facility] Stop: 04/25/25 19:14 Dextrose (Dextrose 50%-Water Inj 50 Ml Syringe) 25 ml IV Q15MIN PRN PRN Reason: BG 50-70 responsive npo pt Stop: 04/25/25 19:08 Dextrose (Dextrose 50%-Water Inj 50 Ml Syringe) 50 ml IV Q15MIN PRN PRN Reason: BG <50 OR BG <70 & pt unresponsive Stop: 04/25/25 19:08 Glucagon (Glucagon Inj 1 Mg Vial) 1 mg IM Q15MIN PRN PRN Reason: BG <70, and no IV access Heparin Sodium (Porcine) (Heparin Sod Inj 5000 Unit/Ml Vial) 5,000 unit SC Q12HR [facility] Stop: 04/09/25 20:59 Dexmedetomidine/Sodium Chloride (Precedex Ivpb) 400 mcg in 100 mls @ 4.423 mls/hr IV .[id number] PRN; Protocol PRN Reason: Per PROTOCOL Stop: 04/25/25 14:17 Last Titration: 03/26/25 19:13 Dose: 0.4 mcg/kg/hr, 8.845 mls/hr Vancomycin HCl 1,500 mg/ (Sodium Chloride) 500 mls @ 198 mls/hr IV X1 ONE Stop: 03/26/25 22:01 Norepinephrine/Dextrose (Levophed In D5w 8mg/250ml) 8 mg in 250 mls @ 8.292 mls/hr IV .Q24H PRN; Protocol PRN Reason: PER PROTOCOL Stop: 04/25/25 19:49 Last Admin: 03/26/25 20:00 Dose: 0.05 mcg/kg/min, 8.292 mls/hr Piperacillin/Tazobactam/Dextrose (Zosyn) 2.25 gm in 50 mls @ 100 mls/hr IV QDAY [facility] Stop: 04/02/25 20:14 Sodium Chloride (Ns) 1,000 mls @ 999 mls/hr IV .Q1H1M ONE Stop: 03/26/25 21:17 Insulin Human Lispro (Insulin Lispro (Admelog) 1 Unit/0.01 Ml Unit) 0 unit SC AC [facility]; Protocol Stop: 04/26/25 07:29 Pantoprazole Sodium (Pantoprazole Inj 40 Mg Vial) 40 mg IVP QDAY [facility] Stop: 04/25/25 19:14 Pharmacy Consult (Vancomycin Pharmacy To Dose 1 Each Each) 1 each IV QDAY [facility] Stop: 04/25/25 19:14 Discontinued Medications Albuterol (Albuterol Rt 2.5 Mg/3 Ml Nebu) 2.5 mg INH X1 ONE Stop: 03/26/25 10:40 Last Admin: 03/26/25 11:41 Dose: 2.5 mg Albuterol/Ipratropium (Albuterol/Ipratropium (Duoneb) Rt Jennifer 3 Ml Nebu) 3 ml INH X1 ONE Stop: 03/26/25 10:40 Last Admin: 03/26/25 11:41 Dose: 3 ml Aspirin (Aspirin 81 Mg Chew) 324 mg PO X1 ONE Stop: 03/26/25 19:06 Furosemide (Furosemide Inj 10 Mg/Ml 4ml Vial) 60 mg IVP X1 ONE Stop: 03/26/25 11:28 Last Admin: 03/26/25 11:36 Dose: 60 mg Ceftriaxone Sodium/Dextrose (Rocephin/D5w 1gm Iv Premix) 1 gm in 50 mls @ 100 mls/hr IV QDAY [facility] Stop: 04/02/25 12:39 Last Infusion: 03/26/25 14:09 Dose: Infused Doxycycline Hyclate 100 mg/ (Sodium Chloride) 100 mls @ 100 mls/hr IV X1 ONE Stop: 03/26/25 13:39 Last Infusion: 03/26/25 16:43 Dose: Infused Acetaminophen (Ofirmev Inj) 1,000 mg in 100 mls @ 250 mls/hr IV NOW ONE Stop: 03/26/25 13:48 Last Infusion: 03/26/25 14:10 Dose: Infused Sodium Chloride (Ns) 1,000 mls @ 999 mls/hr IV .Q1H1M ONE Stop: 03/26/25 14:58 Last Infusion: 03/26/25 15:00 Dose: Infused Lactated Ringer's (Lactated Ringers) 1,000 mls @ 999 mls/hr IV .Q1H1M ONE Stop: 03/26/25 18:51 Last Admin: 03/26/25 18:57 Dose: 999 mls/hr Insulin Human Regular (Insulin Hum Regular 1 Unit/0.01 Ml (Per Unit)) 10 unit IV X1 ONE Stop: 03/26/25 12:37 Last Admin: 03/26/25 13:08 Dose: 10 unit Ketamine HCl (Ketamine 50 Mg/Ml Vial 10 Ml) 100 mg IVP X1 ONE Stop: 03/26/25 14:19 Last Admin: 03/26/25 14:39 Dose: 100 mg Midazolam HCl (Midazolam Inj 1 Mg/Ml Vial 2 Ml) 2 mg IV PRN ONE Stop: 03/26/25 11:17 Last Admin: 03/26/25 11:36 Dose: 2 mg Naloxone HCl (Naloxone Inj 1 Mg/Ml Syringe 2 Ml) 0.4 mg IV X1 ONE Stop: 03/26/25 10:40 Last Admin: 03/26/25 10:45 Dose: 0.4 mg Rocuronium [place] (Rocuronium Inj 10 Mg/Ml Vial 10 Ml) 88 mg 1 mg/kg (88 mg) IV X1 ONE Stop: 03/26/25 14:19 Last Admin: 03/26/25 14:45 Dose: 88 mg Sodium Chloride (Sodium Chloride Rt 10% 15 Ml Nebu) 5 ml INH X1 ONE Stop: 03/26/25 15:43 Last Admin: 03/26/25 19:33 Dose: Not Given Assessment & Plan Plan Summary A 59-year-old female with a past medical history of diabetes, hypertension, asthma, and a chronic right leg wound was brought to the Emergency Department after being found unresponsive. Patient found to have embolic type stroke. Patient intubated and admitted to ICU for low GCS. ENERGY SYSTEMS ENGINEER: #CVA CT head showed right frontal lobe infarcts MRI brain showed Multiple embolic-type foci of restricted diffusion bilateral occipital lobes, bilateral frontal and bilateral parietal lobes most consistent with acute infarcts. No large vessel occlusion. Plan - ASA 324mg loading dose followed by ASA 81mg daily + Plavix 75mg daily - Atorvastatin 80mg daily - ECHO with bubble study - Carotid doppler study - Ordered TSH, A1C, Vit B12 - Neuro Checks q1hr - Speech referral - PT referral - DVT Prophylaxis heparin - Antihypertensives PRN if Blood pressure is greater than 220/120 or there is a concern for end organ damage #Acute encephalopathy Found unconscious DDx Sepsis vs Metabolic vs Drugs vs Stroke Urine tox positive for meth and marijuana Stroke positive Drug overdose -> patient responded to narcan Plan - Intubate and mechanical ventilation and on precedex and want to make sure patient not too sedated to perform neurochecks - RAAS 0 - Treat sepsis - Correct acidosis - Trend lactate CVS: #NSTEMI, Type 1 vs 2 Trop elevated but CK also elevated EKG showed sinus rythym, no elevation in ST Plan - Trend trop q6h - ECHO to check wall motion abnormality - Hold off on heparin drip #Possible CHF BNP 297 Bilat insp crackles lungs Bital pitting edema +2 CXR shows vascular congestion Plan - ECHO - Strict I/Os - Daily weights RESP: #Acute Hypoxic resp failure #Respiratory acidosis 2/2 to sepsis, altered mental status, and pulmonary edema ABG: pH 7.16, pCO2 58, pO2 68, FiO2 100 Plan - Intubate + Mechanical ventilation - Increase RR on ventilator - Duonebs #Community-acquired pneumonia Based on the patient's fever, ongoing cough, and abnormal lung sounds, coupled with supporting chest x-ray and lab results, the findings are consistent with pneumonia Plan - Obtain sputum culture - Start Zosyn and Vancomycin empirically #Hx of Asthma - Does not appear to have asthma exacerbation GI: #Transaminitis + Hyperbilirubminmia Alcohol vs Viral infection vs CBD stone Plan - Viral hep panel - Trend LFTs - Consider doing abdominal US (later consider CT abdomen if LFTS worsening) - GI ppx protonix 40mg daily NEPHRO #KINJAL DDX: Pre-renal vs Intra-renal vs Post-renal vs Rhabdo vs CKD vs Cardiorenal Cr 2.8 BUN 14 Plan - Jane - Strict I/Os - NICOM to check fluid status and if fluid responsive give fluids - Urine electrolytes - Renal US - Avoid nephrotoxins - Renally dose meds #Rhabdomyolsis CK 9752 Received 2L in ED Plan - Need to be cautious as suspecting vol overload state #HAGMA 2/2 to LA from sepsis Betahydroxy level normal Plan - Tx sepsis ENDO: #Hx of T2DM BG 550 Plan - Ordered A1c - Insulin SS - Hypoglycemia protocol HEME: #Leukocytosis WBC 13.1 2/2 to sepsis Plan - Tx sepsis ID: #Severe sepsis Increased WBC, SBP <90, RR >22, Procal elevated, LA Source likely Urine in combo with CAP UA turbid, 2+protein, 3+ glucose, ketone +1, blood 3+, leuk positive, calcium oxalate crystals, WBC 112. Rbc 10 Plan - Received 2L LR so far - Need to be cautious as vol overloaded - Zosyn (renally-dosed) and Vancomycin - MRSA screen pending - Follow Blood, urine culture, - Send sputum sample - Trend lactic acid q6h Health Maintenance: Diet: N.p.o. GI prophylaxis: Protonix DVT prophylaxis: Heparin subcut 5000 units every 12 hours Antibiotics: Vancomycin and Zosyn CODE STATUS: Full Disposition: ICU Case discussed with my attending Dr. Grady, and senior resident, Dr. Shoshana Johnson MD PGY-1 Attending Provider Attestation/Addendum Patient seen and examined in the ER and discussed with ICU residents. In brief this is a 59-year-old female who was brought to the ER for altered mentation. She was found down at home last known well time was 1030. Head CT showed 2 acute embolic CVAs. A MRI was ordered for further evaluation to exclude LVO. The MRI was negative therefore patient was admitted to the ICU. In the ED she was found to be altered with a progressive decline in her mentation requiring intubation. She was noted to have acute kidney injury likely secondary to her rhabdomyolysis, fluids were started and a Jane was placed. She has minimal urinary output therefore anticipate she might progress to requiring dialysis. On physical exam she was obtunded and on BiPAP, pupils equal and reactive, neck supple, lungs clear to auscultation no expiratory wheezes or crackles heard at time of exam. There was a small pressure injury located on the patient's chest wall and neck. Heart rate regular and rhythmic, no bruits or murmurs auscultated, no increased work of breathing. Abdomen is obese, soft, nontender, bowel sounds present, no rebound or guarding. Extremities with edema of bilateral lower extremities both feet are cool and dusky to touch, radial pulses are palpable, no clubbing or cyanosis. Subtle mottling over bilateral distal lower extremities. There are demarcations on bilateral upper thighs consistent with tissue pressure injuries. Later in the evening she started to become hypotensive requiring vasopressor support. There was also some difficulty oxygenating her and she required an elevated PEEP with a heart percent FiO2. She will be deeply sedated and NMB as needed. 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
[2025-03-26 20:30] LABS: Chloride,Urine Random 23.2 mMol/L (55.0-125.0); Potassium,Urine Random 26 mMol/L (12-62); Sodium,Urine Random 34.2 mMol/L (20.0-110.0)
--- NOTE | 2025-03-26 20:30 | XR_ITS ---
Examination: Carotid arterial duplex scan, ultrasound. Date and time of exam: March 26, 2025 2038 hours INDICATIONS: Onset altered mental status today, multiple embolic-type acute infarcts on brain MRI study today Technique: Multiple sonographic images have been obtained of the carotid arteries and vertebral arteries, B-mode/grayscale imaging and Doppler spectral analysis and color flow Peak systolic and diastolic velocities have been recorded. Systolic diastolic ratios have been calculated. Findings: Right peak systolic velocities: Distal internal carotid artery peak systolic velocity is 1.2 M/sec Proximal internal carotid artery peak systolic velocity is 0.4 M/sec Carotid bifurcation peak systolic velocity is 0.6 M/sec External carotid artery peak systolic velocity is 1.4 M/sec Vertebral artery flow is antegrade. Left peak systolic velocities: Distal internal carotid artery peak systolic velocity is 0.6 M/sec Proximal internal carotid artery peak systolic velocity is .4 M/sec Carotid bifurcation peak systolic velocity is 0.6 M/sec External carotid artery peak systolic velocity is 0.9 M/sec Vertebral artery flow is antegrade Doppler waveform analysis demonstrates spectral broadening on the right Impression: Right internal carotid artery demonstrates 20-40% stenosis. Left internal carotid artery demonstrates 0-10% stenosis.
--- NOTE | 2025-03-26 20:33 | XR_ITS ---
Examination: AP chest single view TECHNIQUE: AP portable supine chest single view Date and time: March 26, 2025 2105 hours Comparison March 26, 2025 1524 hours INDICATIONS: Shortness of breath weakness chest pain beginning today. FINDINGS: Significant bibasilar pneumonia. Mild retrocardiac contour with prominent vascular congestion. Orogastric tube tip at the GE junction Tracheal tube tip 3 cm above jerardo IMPRESSION: Significant bibasilar pneumonia Early heart failure. Advance the orogastric tube 10 cm
--- NOTE | 2025-03-26 20:52 | PC.NURSE ---
Belongings given to Mother, clothing as follows shirt, pants, underwear.
[2025-03-26 22:27] LABS: Hepatitis B Surface Antigen Non Reactive (Non React); Vitamin B12 529 pg/mL (211-911)
[2025-03-26 22:32] LABS: Basophils # (Auto) 0.0 Thou/mm3 (0.0-0.2); Basophils % (Auto) 0 % (0-2.5); Eosinophils # (Auto) 0.1 Thou/mm3 (0.0-0.5); Eosinophils % (Auto) 1 % (0-10); Hematocrit 45.2 % (36.0-46.0); Hemoglobin 13.6 g/dL (12.0-16.0); Immature Granulocytes Auto 0.10 Thou/mm3 (0.00-0.00); Lymphocytes # (Auto) 1.4 Thou/mm3 (1.0-4.8); Lymphocytes % (Auto) 13 % (10-50); Mean Corpuscular HGB Conc 30.1 g/dl (31.0-37.0); Mean Corpuscular Hemoglobin 29.1 pg (25.0-35.0); Mean Corpuscular Volume 97 fL (80-100); Monocytes # (Auto) 0.8 Thou/mm3 (0.0-0.8); Monocytes % (Auto) 7 % (0-12); Neutrophils # (Auto) 8.6 Thou/mm3 (1.8-7.7); Neutrophils % (Auto) 78 % (37-80); Nucleated Red Blood Cell # 0.05 Thou/mm3 (0.00-0.00); Nucleated Red Blood Cell % 1 /100 WBC (0); Platelet Count 224 Thou/mm3 (140-440); RDW Standard Deviation 56.6 fL (36.4-46.3); Red Blood Count 4.67 Miln/mm3 (4.00-5.20); White Blood Count 11.1 Thou/mm3 (3.6-11.0)
[2025-03-26 22:41] LABS: Hepatitis A Antibody IgM Non Reactive (Non React); Hepatitis B Core Antibody IgM Non Reactive (Non React); Hepatitis C Antibody Reactive (Non React)
[2025-03-26] MEDS: ASPIRIN 81 MG CHEW 324 MG PO (22:46)
[2025-03-26] MEDS: HEPARIN SOD INJ 5000 UNIT/ML VIAL SC (22:48)
[2025-03-26] MEDS: ATORVASTATIN CALCIUM 20 MG TABLET 80 MG PO (22:49)
[2025-03-26] MEDS: CLOPIDOGREL BISULFATE 75 MG TABLET PO (22:49)
[2025-03-26] MEDS: Vancomycin Inj 1,500 MG in SODIUM CHLORIDE 0.9% 500 ML 500 ML 198 MG IV (22:50)
[2025-03-26] MEDS: PIPER/TAZO INJ 3.375 GM in SODIUM CHLORIDE 0.9% (Popper) 50 ML IV (22:53)
[2025-03-26 22:55] LABS: Lactate (Lactic Acid) 4.5 mMol/L (0.4-2.0)
[2025-03-26] MEDS: INSULIN DEGLUDEC 5 UNIT/0.05 ML (PER 5 UNITS) 18 UNIT SC (22:55)
[2025-03-26 23:01] LABS: Alanine Aminotransferase 110 U/L (10-49); Albumin, Serum 3.0 gm/dL (3.5-5.0); Albumin/Globulin Ratio 1.3 (1.2-2.2); Alkaline Phosphatase 67 U/L (46-116); Anion Gap 12 (7-16); Aspartate Amino Transferase 242 U/L (0-34); BUN/Creatinine Ratio 5 Ratio (12-20); Bilirubin,Total 0.8 mg/dL (0.3-1.2); Blood Urea Nitrogen 14 mg/dL (9-23); Calcium 7.5 mg/dL (8.3-10.6); Calcium (Corrected) 8.3 mg/dL (8.5-10.1); Carbon Dioxide 19.1 mMol/L (20.0-31.0); Chloride 97 mMol/L (98-107); Creatine Kinase 13418 U/L (34-171); Creatinine (Component) 2.7 mg/dL (0.6-1.3); Estimated Creatinine Clearance 23.5 mL/min (>60); Globulin 2.4 gm/dL (2.3-3.5); Magnesium 1.6 mg/dL (1.6-2.6); Osmolality,Calculated 291 (275-295); Phosphorous 5.0 mg/dL (2.4-5.1); Potassium 4.6 mMol/L (3.4-5.1); Sodium 128 mMol/L (136-145); Total Protein 5.4 gm/dL (5.7-8.2); eGFR 20 See Note
--- NOTE | 2025-03-26 23:15 | XR_ITS ---
Examination: AP chest single view TECHNIQUE: AP portable supine chest single view Date and time: 2024 0252 hours Comparison March 26, 2025 INDICATIONS: Post orogastric tube placement, hypoxic respiratory failure postintubation FINDINGS: Bibasilar pneumonia mild improvement at the right base compared with March 26, 2025 Endotracheal tube tip 4 cm above [place]. Orogastric tube in the stomach satisfactory position Enlarged cardiac contour with prominent vascular congestion IMPRESSION: Interval orogastric tube in satisfactory position
[2025-03-26 23:23] LABS: Glucose > 700 mg/dL (74-106); Troponin I 0.954 ng/mL (0.0-0.045)
[2025-03-27] VITALS (153 sets, daily range): BP systolic 34–300; BP diastolic 8–138; PULSE 49–133; RESP 23–42; TEMP 37.1–37.9; O2SAT 51–100; BMI 37.6; BMI 37.8
[2025-03-27] MEDS: fentaNYL CIT INJ 50 mCg/ML AMP 2ML IVP ×2 (00:01→06:40)
[2025-03-27 00:23] LABS: Base Excess -8 (-3-3); HCO3 19 mEq/L (20-26); Inspired Oxygen, FIO2 80 %; O2 Saturation 96 % (91-98); PCO2 44 mmHg (32.0-48.0); PO2 80 mmHg (83-108); pH, Arterial 7.24 (7.35-7.45)
[2025-03-27 00:24] LABS: Allen Test Performed/OK; Puncture Site Right Radial
[2025-03-27] MEDS: INSULIN LISPRO (AdmeLOG) 1 UNIT/0.01 ML UNIT SC ×5 (00:28→23:32)
[2025-03-27] MEDS: DEXMEDETOMIDINE 400 MCG IVPB 400 MCG/100 ML BAG 17.69 MCG IV (00:51)
[2025-03-27] MEDS: fentaNYL 2,500 MCG/250 ML BAG 2,500 MCG/250 ML BAG IV (00:59)
[2025-03-27 01:45] LABS: Reflex Lactate? Y
[2025-03-27 02:10] LABS: Anion Gap 12 (7-16); BUN/Creatinine Ratio 7 Ratio (12-20); Blood Urea Nitrogen 20 mg/dL (9-23); Calcium 7.8 mg/dL (8.3-10.6); Carbon Dioxide 19.0 mMol/L (20.0-31.0); Chloride 108 mMol/L (98-107); Creatinine (Component) 2.8 mg/dL (0.6-1.3); Estimated Creatinine Clearance 22.6 mL/min (>60); Osmolality,Calculated 299 (275-295); Potassium 4.5 mMol/L (3.4-5.1); Sodium 139 mMol/L (136-145); eGFR 19 See Note
[2025-03-27 02:13] LABS: Glucose 434 mg/dL (74-106)
[2025-03-27 02:32] LABS: Lactic Acid, 3 HR 2.9 mMol/L (0.4-2.0)
--- NOTE | 2025-03-27 02:37 | PC.RT ---
releaved RT Don at 17:30 from MRI spo2 at 93% at 17:30, hr 80s, at 18:21 hr 97 spo2 89% pt was reposition and changed spo2 improved to 94% pt on ACVC 480, Ti .90, RR20, fio2 100% peep of 12, RT dc at 18:43
--- NOTE | 2025-03-27 02:40 | PC.RT ---
at 19:43 RT called due to low spo2, immediately responded to assessed pt, spo2 84% suctined pt, sats not improving, started ventilating with ambu bag at 100% fio2 peep 12, sats not improving pt hypotensive at 19:52 b/p 70/53, spo2 86%, at 20:05 113/[address] pt back on ventilator on current settings, sats to low 90s at 20:05 113/72 DR. echo San at bedside by this time, DR. holden with acvc of 480, RR28, Ti .50, peep of 12 no other changes RT dc 20:05
[2025-03-27 02:46] LABS: Basophils # (Auto) 0.0 Thou/mm3 (0.0-0.2); Basophils % (Auto) 0 % (0-2.5); Eosinophils # (Auto) 0.1 Thou/mm3 (0.0-0.5); Eosinophils % (Auto) 1 % (0-10); Hematocrit 44.9 % (36.0-46.0); Hemoglobin 13.8 g/dL (12.0-16.0); Immature Granulocytes Auto 0.15 Thou/mm3 (0.00-0.00); Lymphocytes # (Auto) 1.3 Thou/mm3 (1.0-4.8); Lymphocytes % (Auto) 10 % (10-50); Mean Corpuscular HGB Conc 30.7 g/dl (31.0-37.0); Mean Corpuscular Hemoglobin 29.0 pg (25.0-35.0); Mean Corpuscular Volume 94 fL (80-100); Monocytes # (Auto) 1.0 Thou/mm3 (0.0-0.8); Monocytes % (Auto) 7 % (0-12); Neutrophils # (Auto) 10.5 Thou/mm3 (1.8-7.7); Neutrophils % (Auto) 81 % (37-80); Nucleated Red Blood Cell # 0.06 Thou/mm3 (0.00-0.00); Nucleated Red Blood Cell % 1 /100 WBC (0); Platelet Count 262 Thou/mm3 (140-440); RDW Standard Deviation 54.6 fL (36.4-46.3); Red Blood Count 4.76 Miln/mm3 (4.00-5.20); White Blood Count 13.0 Thou/mm3 (3.6-11.0)
[2025-03-27 03:13] LABS: Alanine Aminotransferase 115 U/L (10-49); Albumin, Serum 3.1 gm/dL (3.5-5.0); Albumin/Globulin Ratio 1.3 (1.2-2.2); Alkaline Phosphatase 70 U/L (46-116); Anion Gap 11 (7-16); Aspartate Amino Transferase 216 U/L (0-34); BUN/Creatinine Ratio 7 Ratio (12-20); Bilirubin,Total 1.0 mg/dL (0.3-1.2); Blood Urea Nitrogen 20 mg/dL (9-23); Calcium 7.9 mg/dL (8.3-10.6); Calcium (Corrected) 8.6 mg/dL (8.5-10.1); Carbon Dioxide 18.7 mMol/L (20.0-31.0); Cardiac Risk Estimate 3.0 RATIO (3.7-5.6); Chloride 109 mMol/L (98-107); Cholesterol 90 mg/dL (132-200); Creatinine (Component) 2.8 mg/dL (0.6-1.3); Estimated Creatinine Clearance 22.6 mL/min (>60); Globulin 2.4 gm/dL (2.3-3.5); HDL Cholesterol 30 mg/dL (40-60); LDL Cholesterol,Calculated 22 mg/dL (0-130); Osmolality,Calculated 298 (275-295); Potassium 4.5 mMol/L (3.4-5.1); Sodium 139 mMol/L (136-145); Thyroid Stimulating Hormone 2.43 uIU/mL (0.55-4.78); Total Protein 5.5 gm/dL (5.7-8.2); Triglycerides 190 mg/dL (30-150); eGFR 19 See Note
[2025-03-27 03:19] LABS: Creatine Kinase 10800 U/L (34-171)
[2025-03-27 03:21] LABS: Glucose 421 mg/dL (74-106)
[2025-03-27 03:22] LABS: Troponin I 0.956 ng/mL (0.0-0.045)
[2025-03-27 04:13] LABS: Base Excess -7 (-3-3); HCO3 19 mEq/L (20-26); O2 Saturation 97 % (91-98); PCO2 43 mmHg (32.0-48.0); PO2 83 mmHg (83-108); pH, Arterial 7.26 (7.35-7.45)
[2025-03-27] MEDS: INSULIN LISPRO (AdmeLOG) 1 UNIT/0.01 ML UNIT 10 UNIT SC (04:13)
[2025-03-27 04:15] LABS: Allen Test Performed/OK; Inspired Oxygen, FIO2 75 %; Puncture Site Right Radial
[2025-03-27] MEDS: DEXMEDETOMIDINE 400 MCG IVPB 400 MCG/100 ML BAG 26.535 MCG IV ×4 (05:32→23:37)
[2025-03-27] MEDS: PIPER/TAZO INJ 3.375 GM in SODIUM CHLORIDE 0.9% (Popper) 50 ML IV (05:39)
[2025-03-27 05:48] LABS: Lactate (Lactic Acid) 2.5 mMol/L (0.4-2.0)
[2025-03-27] MEDS: ALBUTEROL/IPRATROPIUM (Duoneb) RT SOL 3 ML NEBU INH ×3 (06:24→19:04)
[2025-03-27] MEDS: MIDAZOLAM INJ 1 MG/ML VIAL 2 ML 2 MG IVP (07:24)
[2025-03-27 07:27] LABS: Vancomycin,Random 35.1 mcg/mL
[2025-03-27 07:34] LABS: Misc Send Out* See Sep Rpt
--- NOTE | 2025-03-27 07:53 | XR_ITS ---
Examination: AP chest single view Technique one AP portable supine chest single view Date and time: March 27, 2025 0810 hours Comparison March 27, 2025 INDICATIONS: Hypoxic respiratory failure postintubation, status post placement temporary dialysis catheter today FINDINGS: Mild prominence cardiac contour Bibasilar mild opacity., Consider mild pneumonia Endotracheal tube tip 4.4 cm above jerardo. The orogastric tube is in the stomach the tip is below the level of the film Right internal jugular temporary dialysis catheter tip SVC no pneumothorax Prominent vascular congestion IMPRESSION: Right internal jugular temporary dialysis catheter tip SVC satisfactory position, no pneumothorax
[2025-03-27] MEDS: Norepinephrine/D5W 8mg/250ml 8 MG/250 ML BAG 165.846 MG IV (08:08)
[2025-03-27] MEDS: DOBUTamine/D5w 500 MG IVPB 500 MG/250 ML BAG 6.998 MG IV (08:10)
[2025-03-27] MEDS: EPINEPHrine in NS 16 MG IVPB 16 MG/250 ML BAG 4.373 MG IV (08:10)
[2025-03-27 08:12] LABS: Base Excess, Venous -8 (-3-3); O2 Saturation, Venous 85 % (96-97); PCO2, Venous 49 mmHg (36-56); PO2, Venous 54 mmHg (15-58); pH, Venous 7.21 (7.33-7.66)
[2025-03-27 08:13] LABS: Base Excess -8 (-3-3); HCO3 18 mEq/L (20-26); Inspired Oxygen, FIO2 80 %; O2 Saturation 101 % (91-98); PCO2 37 mmHg (32.0-48.0); PO2 174 mmHg (83-108); pH, Arterial 7.30 (7.35-7.45)
[2025-03-27] MEDS: VASOPRESSIN IN NS IVPB 20 UNIT/100 ML BAG 9 UNIT IV (08:13)
[2025-03-27 08:17] LABS: Lactate (Lactic Acid) 2.7 mMol/L (0.4-2.0)
[2025-03-27 08:19] LABS: Allen Test Not Performed; Puncture Site Arterial Line
--- NOTE | 2025-03-27 08:27 | EKG_ITS ---
[facility] Test Date: 2025-03-27 Pat Name: MARCOS MULLER Department: Room: S254A Gender: Female Beater Out Leveling Machine: BRANDI : [id number] Requested By: Anna Marie San Order Number: [id number] Reading MD: Anna Marie San Measurements Intervals [place] Rate: 84 P: -84 GA: 225 QRS: -74 QRSD: 134 T: 76 QT: 434 QTc: 516 Interpretive Statements SINUS RHYTHM WITH FIRST DEGREE AV BLOCK INTRAVENTRICULAR CONDUCTION DELAY POSSIBLE ANTERIOR MYOCARDIAL INFARCTION , OF INDETERMINATE AGE Compared to ECG 03/26/2025 10:42:05 First degree AV block now present Intraventricular conduction delay now present Myocardial infarct finding now present /store/S0/[id number].pdf
--- NOTE | 2025-03-27 08:38 | PC.PT ---
Per ICU coating and embossing unit operator and chart review, patient is currently intubated and not stable to work with PT. Will cancel PT eval at this time.
[2025-03-27 08:40] LABS: Alanine Aminotransferase 109 U/L (10-49); Albumin, Serum 2.9 gm/dL (3.5-5.0); Albumin/Globulin Ratio 1.5 (1.2-2.2); Alkaline Phosphatase 70 U/L (46-116); Anion Gap 12 (7-16); Aspartate Amino Transferase 170 U/L (0-34); BUN/Creatinine Ratio 8 Ratio (12-20); Bilirubin,Total 0.7 mg/dL (0.3-1.2); Blood Urea Nitrogen 25 mg/dL (9-23); Calcium 7.9 mg/dL (8.3-10.6); Calcium (Corrected) 8.8 mg/dL (8.5-10.1); Carbon Dioxide 19.2 mMol/L (20.0-31.0); Chloride 109 mMol/L (98-107); Creatinine (Component) 3.3 mg/dL (0.6-1.3); Estimated Creatinine Clearance 19.8 mL/min (>60); Globulin 2.0 gm/dL (2.3-3.5); Glucose 327 mg/dL (74-106); Osmolality,Calculated 296 (275-295); Potassium 4.4 mMol/L (3.4-5.1); Sodium 140 mMol/L (136-145); Total Protein 4.9 gm/dL (5.7-8.2); eGFR 16 See Note
[2025-03-27 08:45] LABS: Basophils # (Auto) 0.0 Thou/mm3 (0.0-0.2); Basophils % (Auto) 0 % (0-2.5); Eosinophils # (Auto) 0.0 Thou/mm3 (0.0-0.5); Eosinophils % (Auto) 0 % (0-10); Hematocrit 44.0 % (36.0-46.0); Hemoglobin 13.6 g/dL (12.0-16.0); Immature Granulocytes Auto 0.34 Thou/mm3 (0.00-0.00); Lymphocytes # (Auto) 4.1 Thou/mm3 (1.0-4.8); Lymphocytes % (Auto) 24 % (10-50); Mean Corpuscular HGB Conc 30.9 g/dl (31.0-37.0); Mean Corpuscular Hemoglobin 29.4 pg (25.0-35.0); Mean Corpuscular Volume 95 fL (80-100); Monocytes # (Auto) 1.2 Thou/mm3 (0.0-0.8); Monocytes % (Auto) 7 % (0-12); Neutrophils # (Auto) 11.9 Thou/mm3 (1.8-7.7); Neutrophils % (Auto) 67 % (37-80); Nucleated Red Blood Cell # 0.15 Thou/mm3 (0.00-0.00); Nucleated Red Blood Cell % 1 /100 WBC (0); Platelet Count 269 Thou/mm3 (140-440); RDW Standard Deviation 55.4 fL (36.4-46.3); Red Blood Count 4.62 Miln/mm3 (4.00-5.20); White Blood Count 17.6 Thou/mm3 (3.6-11.0)
[2025-03-27 08:47] LABS: Reflex Lactate? Y
--- NOTE | 2025-03-27 08:53 | PC.SS ---
Patient is a 59 year old female presenting to the hospital for stroke. WATER SKI ASSEMBLER made bedside contact with patient, at bedside was doctors. Patient was not alert and oriented. WATER SKI ASSEMBLER placed phone call to sister Germaine, phone disconnected. WATER SKI ASSEMBLER called mother Daphne ph:[phone]. Patient stated that in case of emergency she will make medical decisions on her behalf. Prior to hospitalization patient did not use any DME, does not have PCP but mother reported that when she is not feeling well patient goes to [facility] [place]. Patients pharmacy [facility] choice is [facility] [address]. Patients mother stated that once medically clear patient will return home with mother. WATER SKI ASSEMBLER informed patients mother that doctors/bedside nurse may call to provide updates or in case of emergency and to make sure someone is available to speak, mother confirmed. D/C: HOME PCP: [facility] Next of kin: Daphne Schroeder, mother,
--- NOTE | 2025-03-27 09:10 | PC.SS ---
ss update: Patient is still intubated, on catheter, IV antibiotics.
[2025-03-27] MEDS: ALBUMIN HUMAN 25% IVPB 25 GM/100 ML BTL IV ×2 (09:18→09:29)
[2025-03-27 09:20] LABS: Lactic Acid, 3 HR 3.0 mMol/L (0.4-2.0)
--- NOTE | 2025-03-27 09:45 | ESOP_ITS ---
PROCEDURES: Procedure Date / Time 03/27/25 07:30 Central Line Placement Right IJ: Indication(s): shock and poor, or inadequate peripheral venous access Informed consent obtained: implied and procedure done urgently Time out done, and the following verified: correct patient, side and site, procedure, patient position and implants and/or equipment Patient placed on monitor/pulse ox: Yes Hand Hygiene: scrub, soap & water and alcohol-based hand rub Max Sterile Barrier Techniques used: cap, mask, sterile gown, sterile gloves and sterile full body drape Central line prep: Chlorhexidine scrub and sterile drapes applied Local anesthesia used: other anesthetic Ultrasound used for placement: Yes Sterile Technique if Ultrasound used, including sterile gel: yes Central line lumen inserted: triple Post procedure: sutured in place, good blood return, all ports aspirated, flushed, capped and sterile dressing applied Post procedure x-ray: tip of catheter in good position and no pneumothorax seen Patient tolerated procedure: well and no complications EBL(ml): 10 Complications: none Procedure comment: A time out was performed. My hands were washed immediately prior to the procedure. I wore a surgical cap, mask with protective eyewear, full gown and sterile gloves throughout the procedure. The patient was placed in Trendelenburg position. The Right neck was prepped using chlorhexidine scrub and draped in sterile fashion using a three quarter sheet drape and sterile towels. Skin preparation was allowed to dry prior to skin puncture. Anatomic landmarks were identified. Using real-time ultrasound, with sterile probe cover and sterile gel, the introducer needle was inserted into the vein under direct ultrasound visualization. Venous blood was withdrawn. The syringe was removed and a guidewire was advanced into the introducer needle. The guidewire was visualized in the appropriate vein by ultrasound. A small incision was made at the skin surface with a scalpel and the introducer needle was exchanged for a dilator over the guidewire. After appropriate dilation was obtained, the dilator was exchanged over the wire for an [antimicrobial coated] Triflow catheter. The wire was removed and the catheter was sutured in place. A biopatch was placed at the insertion site. A sterile op-site was placed over the catheter and biopatch. The patient tolerated the procedure without any hemodynamic compromise. At time of procedure completion, all ports aspirated and flushed properly. Procedure done under supervision of Rubbish Collection Supervisor, Dr. Miguel A Anna, [email or web address] Attending note I was present and available for the entire procedure.
[2025-03-27] MEDS: CLOPIDOGREL BISULFATE 75 MG TABLET NG (09:54)
[2025-03-27] MEDS: ASPIRIN 81 MG CHEW NG (09:54)
[2025-03-27] MEDS: HEPARIN SOD INJ 5000 UNIT/ML VIAL SC ×3 (09:54→21:28)
[2025-03-27 11:18] LABS: Reflex Lactate? Y
[2025-03-27] MEDS: BUMETANIDE INJ 0.25 MG/ML VIAL 4 ML 1 MG IVP (11:23)
--- NOTE | 2025-03-27 11:30 | XR_ITS ---
Examination: Arterial duplex lower extremity study. Date and time of exam: March 27, 2025 1150 hours INDICATIONS: Decreased peripheral pulses in the right leg on clinical examination today Findings: Duplex sonographic imaging of the lower extremity arteries using B-mode/Canales scale imaging and Doppler spectral analysis and color flow. Right common femoral artery demonstrates triphasic flow. Right superficial femoral artery demonstrates triphasic flow. Right popliteal artery demonstrates triphasic flow. Right posterior tibial artery demonstrated triphasic flow. Left common femoral artery demonstrates triphasic flow. Left superficial femoral artery demonstrates triphasic flow. Left popliteal artery demonstrates triphasic flow. Left posterior tibial artery demonstrates triphasic flow Impression: No significant obstructive arterial disease
--- NOTE | 2025-03-27 11:31 | XR_ITS ---
Examination: Abdomen sonogram, Limited Date and time of exam: March 27, 2025 1206 hours INDICATIONS: Elevated transaminase laboratory values on examination today Technique: Real-time arzate scale transabdominal sonographic images of the upper abdomen obtained. Findings: 10 mm gallstone Gallbladder wall 0.3 cm with free fluid around the gallbladder wall Common bile duct enlarged 0.6 cm Pancreatic head 2.3 cm Liver 18.5 cm fatty infiltration Normal hepatopedal portal venous flow Patent IVC IMPRESSION: Cholelithiasis Thickened gallbladder wall with fluid around the gallbladder and enlarged common bile duct 0.6 mm, consider MRCP follow-up to exclude cholecystitis
[2025-03-27 11:51] LABS: Troponin I 2.032 ng/mL (0.0-0.045)
[2025-03-27] MEDS: PIPER/TAZO 3.375 GM PREMIX 3.375 GM/50 ML BAG IV ×2 (14:38→21:28)
[2025-03-27] MEDS: fentaNYL 2,500 MCG/250 ML BAG 2,500 MCG/250 ML BAG 30 MCG IV ×2 (14:42→23:01)
--- NOTE | 2025-03-27 14:59 | PD.RESCONSUL ---
HPI Data of Consult Consult date: 03/27/25 Requesting Physician: Luann Grady MD Admitting Provider: Luann Grady MD Attending Provider: Luann Grady MD Primary Care Provider: Physician No Primary/Family Consult Narrative Reason for consult: KINJAL, oligoanuria-needing CRRT History of present illness: (patient was intubated during this short story writer's visit so the following narrative was constructed primarily via chart checking) Vashti Ross is a 59-year-old F with a PMH of diabetes, hypertension, asthma, substance use disorder (including opiates, probable methamphetamine, and marijuana) on methadone previously, and a chronic right leg wound brought in by ambulance from her home for altered mental status. Per ED rendition of EMS report, patient was noted to be altered with a respiratory rate of 4 en route to [facility]. A total of 8 mg of Narcan was administered at this time which initially improved mentation. Upon arrival, patient was noted to be somnolent and given an additional 0.4 mg of IV Narcan which made her more active but also more combative. She was also noted to be hypoxic and in respiratory distress upon arrival which led her to be put on BiPAP. During her agitated episode, patient endorsed that she hurt all over and loudly yelled that I gotta get out of here . She was eventually given 2 mg of IV Versed and put on restraints due to her continued agitation. Later, she was taken for an MRI which required removal of her BiPAP but upon removal a subsequent drop in O2 saturation to the low 90s was noted. It was deemed that her airway was not secure and the decision was made to intubate the patient. After the MRI was performed, patient was eventually admitted to the ICU. From family collateral, it was learned that patient's last known well time was 22:30 on 03/26. Patient had been found on the floor by her at 05:00 on 03/27 whereupon he tried to rouse her from her stupor, failed, called patient's sister to notify her about patient's condition, and finally left her to go to work. Patient's sister arrived around 09:00 and found patient still lying on the bathroom whereupon this short story writer assumes she called for an ambulance to bring the patient to the ED. In the ED, vitals showed: BP 107/78 HR 94 RR 35 Temp 101.3 SpO2 98% on 15 L BiPAP ED Course: CBC showed high WBC 13.1 w/ neutrophilic predominance but was otherwise WNL. Coagulation panel showed high PT 13.3. ABG showed acidic pH 7.27, normal pCO2 40, high pO2 146, low HCO3 18. CMP showed low carbon dioxide 18.1, high anion gap 19, high creatinine 2.8, low eGFR 19, very high blood glucose 550, very high lactic acid 4.7, high bilirubin 1.6, high AST 146, high ALT 61, high total creatine kinase 9752, very high troponin I 0.427, high BNP 297, and high procalcitonin 43.23. UA showed 2+ protein, 3+ glucose, 1+ ketones, 3+ blood, high RBC 10, high WBC 112, 3+ calcium oxalate crystals, 4+ bacteria, normal random sodium 34.2, normal random potassium 26, and low random chloride 23.2. UDS was (+) for amphetamines/methamphetamines and marijuana. Serological studies were reactive for hepatitis C antibody. Imaging: Head CT showed findings most consistent with acute right frontal lobe infarcts. Brain MRI showed multiple embolic-type foci of restricted diffusion in the bilateral occipital lobes, bilateral frontal lobes, and bilateral parietal lobes most consistent with acute infarcts. CXR showed bibasilar pneumonia and findings suspicious for mild associated heart failure. Renal US showed small kidneys with right renal cortical thinning as well as mild right and moderate left renal parenchymal scar formation. Carotid doppler study showed 20-40% stenosis of the right internal carotid artery and 0-10% stenosis of the left internal carotid artery. EKG was unremarkable. In the ED, patient was given Duoneb Precedex, doxycycline, etomidate, Lasix, regular insulin, ketamine, Versed, naloxone, 1 L LR bolus, Zemuron, and 1 L NS bolus. Patient was intubated due to low GCS and was admitted to the ICU. Nephrology was consulted due to patient's need for urgent hemodialysis. Neurology is also following. cc:: cc: Luann Grady MD Review of Systems Review of Systems ROS Unobtainable: unobtainable due to mental status and due to endotracheal tube Past Medical History Past Medical History CARDIAC: Negative Congestive Heart Failure RESPIRATORY: Positive Respiratory Disorders (asthma); Negative Chronic Obstructive Pulmonary Disease (COPD) GENITOURINARY: Negative Renal Disease MUSCULOSKELETAL: Positive Musculoskeletal Disorders ENDOCRINE: Positive Diabetes Mellitus Type 2; Negative Diabetes Mellitus Type 1 Social History SMOKING STATUS: Unknown if ever smoked Past Medical History Comments PMH COMMENT: unobtainable due to mental status and due to endotracheal tube Exam Vital Signs Temp Pulse Resp BP Pulse Ox O2 Del Method O2 Flow Rate 100.0 F 61 34 H 48/36 L 87 L Mechanical Ventilation 15 03/26/25 21:20 03/27/25 08:10 03/27/25 06:24 03/27/25 08:10 03/27/25 07:20 03/26/25 21:05 03/26/25 10:59 FiO2 80 03/27/25 06:24 Narrative Exam General: Intubated, unconscious HEENT: NCAT Neck: Supple CV: S1+S2. RRR. No m/r/g Lungs: Reduced air entry bilaterally, insp crackles, no work of breathing, no respiratory distress. Abd: Soft, nontender, nondistended, bowel sounds present, no organomegaly Extremities: From the neck to the top of the chest there was erythema noted likely from pressure lesion, large ulceration in the right distal leg in anterior aspect as well as pressure lesion; chronic venous changes in bilateral legs, pedal pulses present bilaterally Neuro: Unable to assess due to patient's level of consciousness and intubated status Skin: Warm, dry, intact Results Labs 03/27/25 18:48 03/27/25 18:43 Labs: Short CBC 03/26/25 03/26/25 03/27/25 Range/Units 12:05 22:10 02:17 WBC 13.1 H 11.1 H 13.0 H (3.6-11.0) Thou/mm3 Hgb 15.1 13.6 13.8 (12.0-16.0) g/dL Hct 48.3 H 45.2 44.9 (36.0-46.0) % Plt Count 279 224 D 262 D (140-440) Thou/mm3 03/27/25 Range/Units 08:29 WBC 17.6 H (3.6-11.0) Thou/mm3 Hgb 13.6 (12.0-16.0) g/dL Hct 44.0 (36.0-46.0) % Plt Count 269 (140-440) Thou/mm3 BMP 03/26/25 03/26/25 03/27/25 11:18 22:10 01:20 Sodium 136 128 L 139 D Potassium 4.3 4.6 4.5 Chloride 99 97 L 108 H Carbon Dioxide 18.1 L 19.1 L 19.0 L BUN 14 14 20 Creatinine 2.8 H 2.7 H 2.8 H Glucose 550 H* > 700 H* D 434 H* D Calcium 9.4 7.5 L D 7.8 L 03/27/25 03/27/25 02:17 07:55 Sodium 139 140 Potassium 4.5 4.4 Chloride 109 H 109 H Carbon Dioxide 18.7 L 19.2 L BUN 20 25 H Creatinine 2.8 H 3.3 H D Glucose 421 H* 327 H D Calcium 7.9 L 7.9 L Cardiac Enzymes 03/26/25 03/26/25 03/27/25 Range/Units 11:18 22:10 02:17 Total Creatine Kinase 9752 H 93510 H D 35477 H D (34-171) U/L Troponin I 0.427 H* 0.954 H* D 0.956 H* (0.0-0.045) ng/mL Liver Function 03/26/25 03/26/25 03/27/25 Range/Units 11:18 22:10 02:17 Total Bilirubin 1.6 H 0.8 D 1.0 (0.3-1.2) mg/dL AST 146 H 242 H 216 H (0-34) U/L ALT 61 H 110 H 115 H (10-49) U/L Alkaline Phosphatase 87 67 D 70 (46-116) U/L Albumin 4.1 3.0 L D 3.1 L (3.5-5.0) gm/dL 03/27/25 Range/Units 07:55 Total Bilirubin 0.7 (0.3-1.2) mg/dL AST 170 H (0-34) U/L ALT 109 H (10-49) U/L Alkaline Phosphatase 70 (46-116) U/L Albumin 2.9 L (3.5-5.0) gm/dL Urine 03/26/25 Range/Units 13:27 Urine Color Drk-Yellow A (Lt Yel-Yel) Urine Clarity Turbid A (Clear/Hazy) Urine pH 5.5 (5.0-7.0) Ur Specific [place] 1.024 (1.001-1.035) Urine Protein 2+ A (Neg - Trace) Urine Glucose (UA) 3+ A (Negative) ABG Interpretation ABG results: 03/26/25 03/26/25 03/26/25 11:18 11:44 16:23 ABG pH 7.27 L Cancelled ABG pCO2 40 Cancelled ABG pO2 146 H Cancelled ABG HCO3 18 L Cancelled ABG O2 Saturation 100 H Cancelled ABG Base Excess -8 L Cancelled VBG pH 7.19 L VBG pCO2 48 VBG pO2 37 VBG Base Excess -10 L 03/26/25 03/27/25 03/27/25 18:43 00:17 04:04 ABG pH 7.16 L* D 7.24 L 7.26 L ABG pCO2 58 H D 44 D 43 ABG pO2 68 L D 80 L 83 ABG HCO3 21 19 L 19 L ABG O2 Saturation 90 L 96 97 ABG Base Excess -9 L -8 L -7 L VBG pH VBG pCO2 VBG pO2 VBG Base Excess 03/27/25 07:55 ABG pH 7.30 L ABG pCO2 37 ABG pO2 174 H D ABG HCO3 18 L ABG O2 Saturation 101 H ABG Base Excess -8 L VBG pH 7.21 L VBG pCO2 49 VBG pO2 54 VBG Base Excess -8 L Quality Measures Quality Measures none Medications Home Medications and Allergies Allergies Allergy/AdvReac Type Severity Reaction Status Date / Time No Known Allergies Allergy Verified 03/26/25 11:03 Visit Medications Acetaminophen (Acetaminophen 325 Mg Tablet) 650 mg PO Q4HR PRN PRN Reason: Pain Scale 1-3 fever >100.4 Stop: 04/25/25 18:57 Albuterol/Ipratropium (Albuterol/Ipratropium (Duoneb) Rt Jennifer 3 Ml Nebu) 3 ml INH Q6HRRT CRIS Stop: 04/26/25 00:59 Last Admin: 03/27/25 07:27 Dose: Not Given Aspirin (Aspirin 81 Mg Chew) 81 mg NG QDAY CRIS Stop: 04/26/25 08:59 Last Admin: 03/27/25 09:54 Dose: 81 mg Atorvastatin Calcium (Atorvastatin Calcium 20 Mg Tablet) 80 mg PO HS CRIS Stop: 04/25/25 20:59 Last Admin: 03/26/25 22:49 Dose: 80 mg Dextrose (Dextrose 50%-Water Inj 50 Ml Syringe) 25 ml IV Q15MIN PRN PRN Reason: BG 50-70 responsive npo pt Stop: 04/25/25 20:19 Dextrose (Dextrose 50%-Water Inj 50 Ml Syringe) 50 ml IV Q15MIN PRN PRN Reason: BG <50 OR BG <70 & pt unresponsive Stop: 04/25/25 20:19 Glucagon (Glucagon Inj 1 Mg Vial) 1 mg IM Q15MIN PRN PRN Reason: BG <70, and no IV access Heparin Sodium (Porcine) (Heparin Sod Inj 5000 Unit/Ml Vial) 5,000 unit SC Q12HR CRIS Stop: 04/09/25 20:59 Last Admin: 03/27/25 09:54 Dose: 5,000 unit Norepinephrine/Dextrose (Levophed In D5w 8mg/250ml) 8 mg in 250 mls @ 8.292 mls/hr IV .Q24H PRN; Protocol PRN Reason: PER PROTOCOL Stop: 04/25/25 19:49 Last Titration: 03/27/25 10:45 Dose: 0.09 mcg/kg/min, 14.926 mls/hr Dexmedetomidine/Sodium Chloride (Precedex Ivpb) 400 mcg in 100 mls @ 4.423 mls/hr IV .[id number] PRN; Protocol PRN Reason: Per PROTOCOL Stop: 04/25/25 14:17 Last Admin: 03/27/25 10:08 Dose: 1.2 mcg/kg/hr, 26.535 mls/hr Fentanyl Citrate (Sublimaze Inj 2,500 Mcg/250 Ml Bag) 2,500 mcg in 250 mls @ 2.5 mls/hr IV .Q24H PRN; Protocol PRN Reason: PER PROTOCOL Stop: 03/31/25 23:52 Last Titration: 03/27/25 10:00 Dose: 175 mcg/hr, 17.5 mls/hr Piperacillin/Tazobactam/Dextrose (Zosyn) 3.375 gm in 50 mls @ 12.5 mls/hr IV Q8HR CRIS Stop: 04/03/25 13:59 Vasopressin/Sodium Chloride (Vasostrict/Ns Ivpb) 20 unit in 100 mls @ 9 mls/hr IV .Q11H7M PRN; Protocol PRN Reason: PER PROTOCOL Stop: 04/26/25 07:13 Last Titration: 03/27/25 08:23 Dose: 0 unit/min, 0 mls/hr Epinephrine/Sodium Chloride (Adrenalin/Ns 16 Mg Ivpb) 16 mg in 250 mls @ 4.373 mls/hr IV .Q24H PRN; Protocol PRN Reason: Per Protocol Stop: 04/26/25 07:41 Last Titration: 03/27/25 08:22 Dose: 132 mcg/kg/min, 11,545.875 mls/hr Dobutamine HCl/Dextrose (Dobutrex/D5w Ivpb) 500 mg in 250 mls @ 2.799 mls/hr IV .Q24H CRIS Stop: 04/26/25 08:09 Last Infusion: 03/27/25 08:22 Dose: 0 mcg/kg/min, 0 mls/hr Esmolol HCl (Esmolol In Ns 2000 Mg Ivpb) 2,000 mg in 100 mls @ 13.995 mls/hr IV .Q7H9M PRN; Protocol PRN Reason: PER PROTOCOL Stop: 04/26/25 08:23 Insulin Human Lispro (Insulin Lispro (Admelog) 1 Unit/0.01 Ml Unit) 0 unit SC Q6HR CRIS; Protocol Stop: 04/25/25 20:29 Pantoprazole Sodium (Pantoprazole Inj 40 Mg Vial) 40 mg IVP QDAY [facility] Stop: 04/25/25 19:14 Last Admin: 03/27/25 09:53 Dose: 40 mg Pharmacy Consult (Vancomycin Pharmacy To Dose 1 Each Each) 1 each IV QDAY [facility] Stop: 04/25/25 19:14 Last Admin: 03/27/25 10:04 Dose: Not Given Discontinued Medications Albuterol (Albuterol Rt 2.5 Mg/3 Ml Nebu) 2.5 mg INH X1 ONE Stop: 03/26/25 10:40 Last Admin: 03/26/25 11:41 Dose: 2.5 mg Albuterol/Ipratropium (Albuterol/Ipratropium (Duoneb) Rt Jennifer 3 Ml Nebu) 3 ml INH X1 ONE Stop: 03/26/25 10:40 Last Admin: 03/26/25 11:41 Dose: 3 ml Aspirin (Aspirin 81 Mg Chew) 324 mg PO X1 ONE Stop: 03/26/25 19:06 Last Admin: 03/26/25 22:46 Dose: 324 mg Aspirin (Aspirin Ec 81 Mg Tabec) 81 mg PO QDAY [facility] Stop: 04/26/25 08:59 Last Admin: 03/27/25 10:18 Dose: Not Given Bumetanide (Bumetanide Inj 0.25 Mg/Ml Vial 4 Ml) 1 mg IVP X1 ONE Stop: 03/27/25 10:47 Clopidogrel Bisulfate (Clopidogrel Bisulfate 75 Mg Tablet) 75 mg PO QDAY [facility] Stop: 04/25/25 19:14 Last Admin: 03/27/25 10:18 Dose: Not Given Clopidogrel Bisulfate (Clopidogrel Bisulfate 75 Mg Tablet) 75 mg NG QDAY [facility] Stop: 04/25/25 19:14 Last Admin: 03/27/25 09:54 Dose: 75 mg Esmolol HCl (Esmolol Inj 10 Mg/Ml Vial 10 Ml) 45 mg IVP X1 ONE Stop: 03/27/25 08:31 Last Admin: 03/27/25 10:04 Dose: Not Given Fentanyl Citrate (Fentanyl Cit Inj 50 Mcg/Ml Amp 2ml) 50 mcg IVP X1 ONE Stop: 03/26/25 23:50 Last Admin: 03/27/25 00:01 Dose: 50 mcg Fentanyl Citrate (Fentanyl Cit Inj 50 Mcg/Ml Amp 2ml) 50 mcg IM X1 ONE Stop: 03/26/25 23:51 Fentanyl Citrate (Fentanyl Cit Inj 50 Mcg/Ml Amp 2ml) 50 mcg IVP X1 ONE Stop: 03/27/25 06:36 Last Admin: 03/27/25 06:40 Dose: 50 mcg Furosemide (Furosemide Inj 10 Mg/Ml 4ml Vial) 60 mg IVP X1 ONE Stop: 03/26/25 11:28 Last Admin: 03/26/25 11:36 Dose: 60 mg Ceftriaxone Sodium/Dextrose (Rocephin/D5w 1gm Iv Premix) 1 gm in 50 mls @ 100 mls/hr IV QDAY [facility] Stop: 04/02/25 12:39 Last Infusion: 03/26/25 14:09 Dose: Infused Doxycycline Hyclate 100 mg/ (Sodium Chloride) 100 mls @ 100 mls/hr IV X1 ONE Stop: 03/26/25 13:39 Last Infusion: 03/26/25 16:43 Dose: Infused Acetaminophen (Ofirmev Inj) 1,000 mg in 100 mls @ 250 mls/hr IV NOW ONE Stop: 03/26/25 13:48 Last Infusion: 03/26/25 14:10 Dose: Infused Sodium Chloride (Ns) 1,000 mls @ 999 mls/hr IV .Q1H1M ONE Stop: 03/26/25 14:58 Last Infusion: 03/26/25 15:00 Dose: Infused Dexmedetomidine/Sodium Chloride (Precedex Ivpb) 400 mcg in 100 mls @ 4.423 mls/hr IV .[id number] PRN; Protocol PRN Reason: Per PROTOCOL Stop: 04/25/25 14:17 Last Titration: 03/27/25 00:43 Dose: 0.8 mcg/kg/hr, 17.69 mls/hr Lactated Ringer's (Lactated Ringers) 1,000 mls @ 999 mls/hr IV .Q1H1M ONE Stop: 03/26/25 18:51 Last Admin: 03/26/25 18:57 Dose: 999 mls/hr Vancomycin HCl 1,500 mg/ (Sodium Chloride) 500 mls @ 198 mls/hr IV X1 ONE Stop: 03/26/25 22:01 Last Admin: 03/26/25 22:50 Dose: 198 mls/hr Piperacillin Sod/Tazobactam (Sod 3.375 gm/ Sodium Chloride) 50 mls @ 100 mls/hr IV X1 ONE Stop: 03/26/25 20:44 Last Admin: 03/26/25 22:53 Dose: 100 mls/hr Sodium Chloride (Ns) 1,000 mls @ 999 mls/hr IV .Q1H1M ONE Stop: 03/26/25 21:17 Last Infusion: 03/26/25 21:00 Dose: Infused Dexmedetomidine/Sodium Chloride (Precedex Ivpb) 400 mcg in 100 mls @ 4.423 mls/hr IV .[id number] PRN; Protocol PRN Reason: Per PROTOCOL Stop: 04/25/25 14:17 Piperacillin/Tazobactam/Dextrose (Zosyn) 2.25 gm in 50 mls @ 100 mls/hr IV X1 ONE Stop: 03/26/25 21:14 Last Admin: 03/27/25 00:38 Dose: Not Given Piperacillin Sod/Tazobactam (Sod 3.375 gm/ Sodium Chloride) 50 mls @ 12.5 mls/hr IV Q12HR [facility] Stop: 04/03/25 08:59 Piperacillin Sod/Tazobactam (Sod 3.375 gm/ Sodium Chloride) 50 mls @ 12.5 mls/hr IV Q6HR [facility] Stop: 04/03/25 04:59 Last Admin: 03/27/25 05:39 Dose: 12.5 mls/hr Sodium Chloride (Ns) 500 mls @ 999 mls/hr IV .Q31M ONE Stop: 03/27/25 07:53 Last Admin: 03/27/25 10:03 Dose: Not Given Albumin Human (Albuminar-25 Ivpb) 25 gm in 100 mls @ 100 mls/hr IV QDAY [facility]IS Stop: 03/30/25 07:45 Last Admin: 03/27/25 09:29 Dose: 100 mls/hr Esmolol HCl (Esmolol In Ns 2000 Mg Ivpb) 2,000 mg in 100 mls @ 139.95 mls/hr IV .Q43M PRN; Protocol PRN Reason: PER PROTOCOL Stop: 04/26/25 08:23 Insulin Degludec (Insulin Degludec 5 Unit/0.05 Ml (Per 5 Units)) 18 unit SC X1 ONE Stop: 03/26/25 20:46 Last Admin: 03/26/25 22:55 Dose: 18 unit Insulin Human Lispro (Insulin Lispro (Admelog) 1 Unit/0.01 Ml Unit) 0 unit SC AC CRIS; Protocol Stop: 04/26/25 07:29 Insulin Human Lispro (Insulin Lispro (Admelog) 1 Unit/0.01 Ml Unit) 0 unit SC Q6HR CRIS; Protocol Stop: 04/25/25 20:29 Insulin Human Lispro (Insulin Lispro (Admelog) 1 Unit/0.01 Ml Unit) 0 unit SC Q6HR CRIS; Protocol Stop: 04/25/25 20:29 Last Admin: 03/27/25 05:40 Dose: 5 unit Insulin Human Lispro (Insulin Lispro (Admelog) 1 Unit/0.01 Ml Unit) 10 unit SC X1 ONE Stop: 03/27/25 04:00 Last Admin: 03/27/25 04:13 Dose: 10 unit Insulin Human Regular (Insulin Hum Regular 1 Unit/0.01 Ml (Per Unit)) 10 unit IV X1 ONE Stop: 03/26/25 12:37 Last Admin: 03/26/25 13:08 Dose: 10 unit Ketamine HCl (Ketamine 50 Mg/Ml Vial 10 Ml) 100 mg IVP X1 ONE Stop: 03/26/25 14:19 Last Admin: 03/26/25 14:39 Dose: 100 mg Midazolam HCl (Midazolam Inj 1 Mg/Ml Vial 2 Ml) 2 mg IV PRN ONE Stop: 03/26/25 11:17 Last Admin: 03/26/25 11:36 Dose: 2 mg Midazolam HCl (Midazolam Inj 1 Mg/Ml Vial 2 Ml) 2 mg IVP X1 ONE Stop: 03/27/25 07:25 Last Admin: 03/27/25 07:24 Dose: 2 mg Naloxone HCl (Naloxone Inj 1 Mg/Ml Syringe 2 Ml) 0.4 mg IV X1 ONE Stop: 03/26/25 10:40 Last Admin: 03/26/25 10:45 Dose: 0.4 mg Rocuronium [place] (Rocuronium Inj 10 Mg/Ml Vial 10 Ml) 88 mg 1 mg/kg (88 mg) IV X1 ONE Stop: 03/26/25 14:19 Last Admin: 03/26/25 14:45 Dose: 88 mg Sodium Chloride (Sodium Chloride Rt 10% 15 Ml Nebu) 5 ml INH X1 ONE Stop: 03/26/25 15:43 Last Admin: 03/26/25 19:33 Dose: Not Given Assessment & Plan Plan Vashti Ross is a 59-year-old F with a PMH of diabetes, hypertension, asthma, substance use disorder (including opiates, probable methamphetamine, and marijuana) on methadone previously, and a chronic right leg wound brought in by ambulance from her home for altered mental status. Patient was intubated due to low GCS and was admitted to the ICU. Nephrology was consulted due to patient's need for urgent hemodialysis and will be receiving it today. #KINJAL vs. KINJAL on CKD vs. CKD Stage IV #likely 2/2 multifactorial etiologies including intravascular depletion, diabetic nephropathy, blood pressure derangements, glomerular diseases, sepsis-induced ATN, rhabdomyolysis, cardiorenal syndrome, crystalline nephropathy associated with oxalate, or atheroembolic disease #Rhabdomyolysis Admission creatinine 2.8 (baseline: unknown), eGFR 19 Other notable labs include: blood glucose 550, total CK 9752, troponin 0.427, UDS(+) for amphetamines/methamphetamines In the contexts of fluids, patient is s/p 3.5 L Diagnostic Inquiry -No current recommendation Treatment Plan -Urgent hemodialysis today -Monitor renal panel -Avoid nephrotoxic agents (aminoglycosides, NSAIDs, radiographic contrast) -Adjust medication dosing based on patient's impaired renal function -Hold any KRISSY/ARB/diuretics #Other medical problems #CVA #Acute encephalopathy #NSTEMI, Type 1 vs Type 2 #??CHF #Acute hypoxic respiratory failure #Respiratory acidosis #Community-acquired pneumonia #Transaminitis + hyperbilirubinemia #HAGMA #Hx of T2DM #Leukocytosis #Severe sepsis Treatment Plan -Continue management per primary care team (ICU) Health Maintenance: Diet: N.p.o. GI prophylaxis: Protonix DVT prophylaxis: Heparin subcut 5000 units every 12 hours Antibiotics: Vancomycin and Zosyn CODE STATUS: Full Disposition: ICU I have examined the patient and conferred with my attending, Dr. Zelaya, regarding them. James Collins, PGY-1 Internal Medicine Attending Provider Attestation/Addendum Patient seen and examined with resident physician Dr. Collins. Note reviewed, agree with findings and recommendations. Patient currently seen in ICU. On the ventilator. Currently on pressors. Significant edema noted. Decided to proceed with CRRT due to hemodynamic instability. Etiology remains multifactorial. CRRT 16 hours- Tablo Blood flow 150-200 Dialysate flow 100 mL Saline flush 50 to 80 mL/h 2K 3.5 calcium Ultrafiltration 1 to 2 L 40 bicarbonate Citrasate No heparin Renal panel every 6 hours while on CRRT Plan of care discussed with the ICU nurse. Please see dialysis flowsheet for further details. Spoke to ICU team, Dr. Grady. Critical care time spent more than 45 minutes regarding plan of care and disease management. Thank you Luann for allowing me to participate in the care of Ms. Kingston 712 pm-spoke to ICU team apparently patient has high venous pressures and clotted off the dialyzer. Will resume with heparin 100 units/h with the same above orders. Have been talking to ICU nurses and guiding them.
--- NOTE | 2025-03-27 15:38 | PC.DIETICIAN ---
Nutrition prescription Vital 1.2 at 20 ml/hr via NG tube by pump. Advance 10 ml every 8 hrs to goal rate of 50 ml/hr x 24 hrs. If no IV fluids, water flushes of 25 ml/hr (or per MD).
[2025-03-27 15:39] LABS: Lactate (Lactic Acid) 2.3 mMol/L (0.4-2.0)
--- NOTE | 2025-03-27 15:46 | PC.CC ---
Urology Teacher received request from ICU care team to go and speak to Pt Mother Daphne Schroeder [phone] and Scottie Barone [phone] regarding next of kin/person to notify for care of Pt. Urology Teacher encounter Pt mother and at bedside. Pt mother explained is person to notify/decision maker for Pt. confirmed and agreed to be person to notify/decision maker. Both Pt mother and in agreement. Demographics were confirmed with Pt mother and . ICU care team and registration were notified of the change.
--- NOTE | 2025-03-27 16:01 | ESPR_ITS ---
Documentation for date of: 03/27/25 Subjective Subjective Interval history: A 59-year-old female with a past medical history of diabetes, hypertension, asthma, and a chronic right leg wound was brought to the Emergency Department after being found unresponsive. According to her mother at the bedside, the patient's last known well was at 10:30 PM the previous night and did not complain of anything. She was discovered on the bathroom floor at 5:00 AM by her , who was unable to rouse her. He contacted the patient's sister and then left for work. Patient's mother arrived at 9:00 AM and found the patient still on the floor, at which point she called for an ambulance. EMS noted pinpoint pupils, a respiratory rate of 4, hypotension, and hypoxia in the 80s. A total of 8 mg of Narcan was administered, which improved her mentation. ED course: In ED: Initial vitals were temperature 101.3, heart rate 94, respiratory rate 35, blood pressure 107/78, 88% on BiPAP. Patient did require BiPAP due to hypoxia and respiratory distress on arrival. CT head showed 2 right frontal lobe infarcts and no hemorrhage. ABG showed pH 7.27, PCO2 40. Bicarb level was 18.1, anion gap 19, creatinine 2.8, glucose 550, lactic acid 4.7, total bilirubin 1.6, AST 146, ALT 61, creatinine kinase 9752, troponin I 0.427, BNP 297, procalcitonin 43.23. Patient received 0.4 mg IV Narcan with significant improvement in mentation as well as blood pressure though was quite combative and requiring restraints. However became very combative and therefore received Versed 2 mg IV x 1. Chest x-ray shows cardiomegaly with vascular congestion and no pulmonary edema, possible bibasilar pneumonia. Urine tox showed positive for urine amphetamine/methamphetamine and marijuana. Patient was intubated in the ER as GCS was <8. 03/27/2025: Patient is seen and examined at bedside in the ICU. This morning, patient suddenly developed hypotension around 7 AM for which a bolus of LR is given followed by patient was started on dobutamine, Levophed and epinephrine drip. Immediately arterial line and dialysis line with the prior flow is placed in the right internal jugular vein. Later the blood pressure improved significantly and dobutamine, epinephrine drip was discontinued. During the time of hypotension, patient was found to have multiple arrhythmias which resolved after discontinuation of dobutamine and epinephrine drip. Repeat labs were sent at that time that showed WBC 17.6, bicarb 19.2, BUN 25, creatinine 3.3, glucose 327, lactate 2.7, AST 170, ALT 109. Continued vasopressors. Later in the afternoon, patient was noted to have elevation in the troponin from 2-20.9 and noted no EKG changes showing ST and T wave changes. Metal Dealer, Dr. Nayak is consulted in view of suspected infective endocarditis and elevated troponins. He recommended no heparin drip for now as patient had suspected infective endocarditis. Neurologist, Dr Oliver is consulted regarding the anticoagulation. Consulted, Dr. Zelaya the data software engineer for acute kidney injury and fluid overload for which patient was started on CRRT. Exam Vital Signs Temp Pulse Resp BP Pulse Ox O2 Del Method O2 Flow Rate 100.0 F 76 35 H 108/65 100 Mechanical Ventilation 15 03/27/25 14:00 03/27/25 15:45 03/27/25 14:00 03/27/25 15:45 03/27/25 14:00 03/27/25 12:00 03/26/25 10:59 FiO2 80 03/27/25 14:00 Narrative Exam General: Sedated and mechanically ventilated. obese. HEENT: Normocephalic, atraumatic, mucous membranes moist. Heart: Regular rate and rhythm, no murmurs. Lungs: Clear to auscultation with no wheezing or crackles. Abdomen: Soft, nondistended, nontender, positive bowel sounds. ?No guarding or rebound tenderness. Neurologic: Sedated and mechanically ventilated.Bilateral pupils are equal and reacting to light. Extremities: Noted bilateral pitting edema edema extending up to the knees, noted surgical scar on the left knee likely from TKR. Noted chronic wound of 5 x 6 cm in the right lower extremity. Noted tissue pressure injuries on the upper lateral right and left thigh. Also noted infected area in the right toe. Peripheral pulses are feeble Skin: No rash or ecchymoses. Objective Labs 03/28/25 15:25 03/28/25 18:41 Labs: Laboratory Results - last 24 hr 03/26/25 03/26/25 03/26/25 12:05 13:27 16:23 WBC RBC Hgb Hct MCV MCH MCHC RDW Std Deviation Plt Count Neut % (Auto) Lymph % (Auto) [place] % (Auto) Eos % (Auto) Baso % (Auto) Neut # (Auto) Lymph # (Auto) [place] # (Auto) Eos # (Auto) Baso # (Auto) Immature Gran # (Auto) Absolute Nucleated RBC Immature Gran % Nucleated RBC % Puncture Site Cancelled ABG pH Cancelled ABG pCO2 Cancelled ABG pO2 Cancelled ABG HCO3 Cancelled ABG O2 Saturation Cancelled ABG Base Excess Cancelled VBG pH VBG pCO2 VBG pO2 VBG O2 Sat (Slime) VBG Base Excess Oxygen Liter Flow Cancelled FiO2 Cancelled Sodium Potassium Chloride Carbon Dioxide Anion Gap BUN Creatinine Estim Creat Clear Calc eGFR BUN/Creatinine Ratio Glucose Estimated Ave Glu mg/dL Hemoglobin A1c Calculated Osmolality Lactic Acid Calcium Corrected Calcium Phosphorus Magnesium Total Bilirubin AST ALT Alkaline Phosphatase Total Creatine Kinase Troponin I Total Protein Albumin Globulin Albumin/Globulin Ratio Triglycerides Cholesterol LDL Cholesterol, Calc HDL Cholesterol Cholesterol/HDL Ratio Vitamin B12 529 TSH 1.59 Ur Random Sodium 34.2 Ur Random Potassium 26 Ur Random Chloride 23.2 L Random Vancomycin Hepatitis A IgM Ab Non Reactive Hep Bs Antigen Non Reactive Hep B Core IgM Ab Non Reactive Hepatitis C Antibody Reactive A 03/26/25 03/26/25 03/26/25 18:40 18:43 22:10 WBC 11.1 H RBC 4.67 Hgb 13.6 Hct 45.2 MCV 97 MCH 29.1 MCHC 30.1 L RDW Std Deviation 56.6 H Plt Count 224 D Neut % (Auto) 78 Lymph % (Auto) 13 [place] % (Auto) 7 Eos % (Auto) 1 Baso % (Auto) 0 Neut # (Auto) 8.6 H Lymph # (Auto) 1.4 [place] # (Auto) 0.8 Eos # (Auto) 0.1 Baso # (Auto) 0.0 Immature Gran # (Auto) 0.10 H Absolute Nucleated RBC 0.05 H Immature Gran % 1 H Nucleated RBC % 1 H Puncture Site Right Radial ABG pH 7.16 L* D ABG pCO2 58 H D ABG pO2 68 L D ABG HCO3 21 ABG O2 Saturation 90 L ABG Base Excess -9 L VBG pH VBG pCO2 VBG pO2 VBG O2 Sat (Slime) VBG Base Excess Oxygen Liter Flow FiO2 100 Sodium 128 L Potassium 4.6 Chloride 97 L Carbon Dioxide 19.1 L Anion Gap 12 BUN 14 Creatinine 2.7 H Estim Creat Clear Calc 23.5 L eGFR 20 L BUN/Creatinine Ratio 5 L Glucose > 700 H* D Estimated Ave Glu mg/dL Hemoglobin A1c Calculated Osmolality 291 Lactic Acid 4.4 H* Calcium 7.5 L D Corrected Calcium 8.3 L Phosphorus 5.0 Magnesium 1.6 Total Bilirubin 0.8 D AST 242 H ALT 110 H Alkaline Phosphatase 67 D Total Creatine Kinase 84221 H D Troponin I 0.954 H* D Total Protein 5.4 L Albumin 3.0 L D Globulin 2.4 Albumin/Globulin Ratio 1.3 Triglycerides Cholesterol LDL Cholesterol, Calc HDL Cholesterol Cholesterol/HDL Ratio Vitamin B12 TSH Ur Random Sodium Ur Random Potassium Ur Random Chloride Random Vancomycin Hepatitis A IgM Ab Hep Bs Antigen Hep B Core IgM Ab Hepatitis C Antibody 03/26/25 03/27/25 03/27/25 22:39 00:17 01:20 WBC RBC Hgb Hct MCV MCH MCHC RDW Std Deviation Plt Count Neut % (Auto) Lymph % (Auto) [place] % (Auto) Eos % (Auto) Baso % (Auto) Neut # (Auto) Lymph # (Auto) [place] # (Auto) Eos # (Auto) Baso # (Auto) Immature Gran # (Auto) Absolute Nucleated RBC Immature Gran % Nucleated RBC % Puncture Site Right Radial ABG pH 7.24 L ABG pCO2 44 D ABG pO2 80 L ABG HCO3 19 L ABG O2 Saturation 96 ABG Base Excess -8 L VBG pH VBG pCO2 VBG pO2 VBG O2 Sat (Slime) VBG Base Excess Oxygen Liter Flow FiO2 80 Sodium 139 D Potassium 4.5 Chloride 108 H Carbon Dioxide 19.0 L Anion Gap 12 BUN 20 Creatinine 2.8 H Estim Creat Clear Calc 22.6 L eGFR 19 L BUN/Creatinine Ratio 7 L Glucose 434 H* D Estimated Ave Glu mg/dL Hemoglobin A1c Calculated Osmolality 299 H Lactic Acid 4.5 H* Calcium 7.8 L Corrected Calcium Phosphorus Magnesium Total Bilirubin AST ALT Alkaline Phosphatase Total Creatine Kinase Troponin I Total Protein Albumin Globulin Albumin/Globulin Ratio Triglycerides Cholesterol LDL Cholesterol, Calc HDL Cholesterol Cholesterol/HDL Ratio Vitamin B12 TSH Ur Random Sodium Ur Random Potassium Ur Random Chloride Random Vancomycin Hepatitis A IgM Ab Hep Bs Antigen Hep B Core IgM Ab Hepatitis C Antibody 03/27/25 03/27/2525 02:17 03:42 04:04 WBC 13.0 H RBC 4.76 Hgb 13.8 Hct 44.9 MCV 94 MCH 29.0 MCHC 30.7 L RDW Std Deviation 54.6 H Plt Count 262 D Neut % (Auto) 81 H Lymph % (Auto) 10 [place] % (Auto) 7 Eos % (Auto) 1 Baso % (Auto) 0 Neut # (Auto) 10.5 H Lymph # (Auto) 1.3 [place] # (Auto) 1.0 H Eos # (Auto) 0.1 Baso # (Auto) 0.0 Immature Gran # (Auto) 0.15 H Absolute Nucleated RBC 0.06 H Immature Gran % 1 H Nucleated RBC % 1 H Puncture Site Cancelled Right Radial ABG pH Cancelled 7.26 L ABG pCO2 Cancelled 43 ABG pO2 Cancelled 83 ABG HCO3 Cancelled 19 L ABG O2 Saturation Cancelled 97 ABG Base Excess Cancelled -7 L VBG pH VBG pCO2 VBG pO2 VBG O2 Sat (Slime) VBG Base Excess Oxygen Liter Flow Cancelled FiO2 Cancelled 75 Sodium 139 Potassium 4.5 Chloride 109 H Carbon Dioxide 18.7 L Anion Gap 11 BUN 20 Creatinine 2.8 H Estim Creat Clear Calc 22.6 L eGFR 19 L BUN/Creatinine Ratio 7 L Glucose 421 H* Estimated Ave Glu mg/dL Cancelled Hemoglobin A1c Cancelled Calculated Osmolality 298 H Lactic Acid 2.9 H 2.5 H Calcium 7.9 L Corrected Calcium 8.6 Phosphorus Magnesium Total Bilirubin 1.0 AST 216 H ALT 115 H Alkaline Phosphatase 70 Total Creatine Kinase 95653 H D Troponin I 0.956 H* Total Protein 5.5 L Albumin 3.1 L Globulin 2.4 Albumin/Globulin Ratio 1.3 Triglycerides 190 H Cholesterol 90 L LDL Cholesterol, Calc 22 HDL Cholesterol 30 L Cholesterol/HDL Ratio 3.0 L Vitamin B12 TSH 2.43 Ur Random Sodium Ur Random Potassium Ur Random Chloride Random Vancomycin 35.1 Hepatitis A IgM Ab Hep Bs Antigen Hep B Core IgM Ab Hepatitis C Antibody 03/27/25 03/27/25 03/27/25 07:55 08:29 09:10 WBC 17.6 H RBC 4.62 Hgb 13.6 Hct 44.0 MCV 95 MCH 29.4 MCHC 30.9 L RDW Std Deviation 55.4 H Plt Count 269 Neut % (Auto) 67 Lymph % (Auto) 24 [place] % (Auto) 7 Eos % (Auto) 0 Baso % (Auto) 0 Neut # (Auto) 11.9 H Lymph # (Auto) 4.1 [place] # (Auto) 1.2 H Eos # (Auto) 0.0 Baso # (Auto) 0.0 Immature Gran # (Auto) 0.34 H Absolute Nucleated RBC 0.15 H Immature Gran % 2 H Nucleated RBC % 1 H Puncture Site Arterial Line ABG pH 7.30 L ABG pCO2 37 ABG pO2 174 H D ABG HCO3 18 L ABG O2 Saturation 101 H ABG Base Excess -8 L VBG pH 7.21 L VBG pCO2 49 VBG pO2 54 VBG O2 Sat (Slime) 85 L VBG Base Excess -8 L Oxygen Liter Flow FiO2 80 Sodium 140 Potassium 4.4 Chloride 109 H Carbon Dioxide 19.2 L Anion Gap 12 BUN 25 H Creatinine 3.3 H D Estim Creat Clear Calc 19.8 L eGFR 16 L BUN/Creatinine Ratio 8 L Glucose [address] Glu mg/dL Hemoglobin A1c Calculated Osmolality 296 H Lactic Acid 2.7 H 3.0 H Calcium 7.9 L Corrected Calcium 8.8 Phosphorus Magnesium Total Bilirubin 0.7 AST 170 H ALT 109 H Alkaline Phosphatase 70 Total Creatine Kinase Troponin I 2.032 H* D Total Protein 4.9 L Albumin 2.9 L Globulin 2.0 L Albumin/Globulin Ratio 1.5 Triglycerides Cholesterol LDL Cholesterol, Calc HDL Cholesterol Cholesterol/HDL Ratio Vitamin B12 TSH Ur Random Sodium Ur Random Potassium Ur Random Chloride Random Vancomycin Hepatitis A IgM Ab Hep Bs Antigen Hep B Core IgM Ab Hepatitis C Antibody 03/27/25 15:09 WBC RBC Hgb Hct MCV MCH MCHC RDW Std Deviation Plt Count Neut % (Auto) Lymph % (Auto) [place] % (Auto) Eos % (Auto) Baso % (Auto) Neut # (Auto) Lymph # (Auto) [place] # (Auto) Eos # (Auto) Baso # (Auto) Immature Gran # (Auto) Absolute Nucleated RBC Immature Gran % Nucleated RBC % Puncture Site ABG pH ABG pCO2 ABG pO2 ABG HCO3 ABG O2 Saturation ABG Base Excess VBG pH VBG pCO2 VBG pO2 VBG O2 Sat (Slime) VBG Base Excess Oxygen Liter Flow FiO2 Sodium Potassium Chloride Carbon Dioxide Anion Gap BUN Creatinine Estim Creat Clear Calc eGFR BUN/Creatinine Ratio Glucose Estimated Ave Glu mg/dL Hemoglobin A1c Calculated Osmolality Lactic Acid 2.3 H Calcium Corrected Calcium Phosphorus Magnesium Total Bilirubin AST ALT Alkaline Phosphatase Total Creatine Kinase Troponin I Total Protein Albumin Globulin Albumin/Globulin Ratio Triglycerides Cholesterol LDL Cholesterol, Calc HDL Cholesterol Cholesterol/HDL Ratio Vitamin B12 TSH Ur Random Sodium Ur Random Potassium Ur Random Chloride Random Vancomycin Hepatitis A IgM Ab Hep Bs Antigen Hep B Core IgM Ab Hepatitis C Antibody ABG Interpretation ABG results: 03/26/25 03/26/25 03/26/25 11:18 11:44 16:23 ABG pH 7.27 L Cancelled ABG pCO2 40 Cancelled ABG pO2 146 H Cancelled ABG HCO3 18 L Cancelled ABG O2 Saturation 100 H Cancelled ABG Base Excess -8 L Cancelled VBG pH 7.19 L VBG pCO2 48 VBG pO2 37 VBG Base Excess -10 L 03/26/25 03/27/25 03/27/25 18:43 00:17 03:42 ABG pH 7.16 L* D 7.24 L Cancelled ABG pCO2 58 H D 44 D Cancelled ABG pO2 68 L D 80 L Cancelled ABG HCO3 21 19 L Cancelled ABG O2 Saturation 90 L 96 Cancelled ABG Base Excess -9 L -8 L Cancelled VBG pH VBG pCO2 VBG pO2 VBG Base Excess 03/27/25 03/27/25 04:04 07:55 ABG pH 7.26 L 7.30 L ABG pCO2 43 37 ABG pO2 83 174 H D ABG HCO3 19 L 18 L ABG O2 Saturation 97 101 H ABG Base Excess -7 L -8 L VBG pH 7.21 L VBG pCO2 49 VBG pO2 54 VBG Base Excess -8 L Quality Measures Quality Measures none Assessment & Plan Assessment Current Active Medications: Generic Name Dose Route Start Last Admin Trade Name Freq PRN Reason Stop Dose Admin Acetaminophen 650 mg 03/26/25 18:58 Acetaminophen 325 Mg Tablet PO 04/25/25 18:57 Q4HR PRN Pain Scale 1-3 fever >100.4 Albuterol/Ipratropium 3 ml 03/27/25 01:00 03/27/25 07:27 Albuterol/Ipratropium (Duoneb) Rt Jennifer 3 Ml Nebu INH 04/26/25 00:59 Not Given Q6HRRT CRIS Aspirin 81 mg 03/27/25 10:00 03/27/25 09:54 Aspirin 81 Mg Chew NG 04/26/25 08:59 81 mg QDAY CRIS Administration Atorvastatin Calcium 80 mg 03/26/25 21:00 03/26/25 22:49 Atorvastatin Calcium 20 Mg Tablet PO 04/25/25 20:59 80 mg HS CRIS Administration Dextrose 25 ml 03/26/25 20:20 Dextrose 50%-Water Inj 50 Ml Syringe IV 04/25/25 20:19 Q15MIN PRN BG 50-70 responsive npo pt Dextrose 50 ml 03/26/25 20:20 Dextrose 50%-Water Inj 50 Ml Syringe IV 04/25/25 20:19 Q15MIN PRN BG <50 OR BG <70 & pt unresponsive Glucagon 1 mg 03/26/25 20:20 Glucagon Inj 1 Mg Vial IM Q15MIN PRN BG <70, and no IV access Heparin Sodium (Porcine) 5,000 unit 03/27/25 14:00 03/27/25 14:39 Heparin Sod Inj 5000 Unit/Ml Vial SC 04/10/25 13:59 5,000 unit Q8HR CRIS Administration Norepinephrine/Dextrose 8 mg in 250 mls @ 8.292 mls/hr 03/26/25 19:50 03/27/25 15:40 Levophed In D5w 8mg/250ml IV 04/25/25 19:49 0.07 mcg/kg/min .Q24H PRN 11.609 mls/hr PER PROTOCOL Titration Protocol 0.05 MCG/KG/MIN Dexmedetomidine/Sodium Chloride 400 mcg in 100 mls @ 4.423 mls/hr 03/26/25 23:53 03/27/25 15:00 Precedex Ivpb IV 04/25/25 14:17 1.4 mcg/kg/hr .[id number] PRN 30.958 mls/hr Per PROTOCOL Titration Protocol 0.2 MCG/KG/HR Fentanyl Citrate 2,500 mcg in 250 mls @ 2.5 mls/hr 03/26/25 23:53 03/27/25 15:00 Sublimaze Inj 2,500 Mcg/250 Ml Bag IV 03/31/25 23:52 300 mcg/hr .Q24H PRN 30 mls/hr PER PROTOCOL Titration Protocol 25 MCG/HR Piperacillin/Tazobactam/Dextrose 3.375 gm in 50 mls @ 12.5 mls/hr 03/27/25 14:00 03/27/25 14:38 Zosyn IV 04/03/25 13:59 12.5 mls/hr Q8HR CRIS Administration Vasopressin/Sodium Chloride 20 unit in 100 mls @ 9 mls/hr 03/27/25 07:14 03/27/25 08:23 Vasostrict/Ns Ivpb IV 04/26/25 07:13 0 unit/min .Q11H7M PRN 0 mls/hr PER PROTOCOL Titration Protocol 0.03 UNIT/MIN Epinephrine/Sodium Chloride 16 mg in 250 mls @ 4.373 mls/hr 03/27/25 07:42 03/27/25 08:22 Adrenalin/Ns 16 Mg Ivpb IV 04/26/25 07:41 132 mcg/kg/min .Q24H PRN 11,545.875 mls/hr Per Protocol Titration Protocol 0.05 MCG/KG/MIN Dobutamine HCl/Dextrose 500 mg in 250 mls @ 2.799 mls/hr 03/27/25 08:10 03/27/25 08:22 Dobutrex/D5w Ivpb IV 04/26/25 08:09 0 mcg/kg/min .Q24H CRIS 0 mls/hr Infusion 1 MCG/KG/MIN Esmolol HCl 2,000 mg in 100 mls @ 13.995 mls/hr 03/27/25 08:32 Esmolol In Ns 2000 Mg Ivpb IV 04/26/25 08:23 .Q7H9M PRN PER PROTOCOL Protocol 50 MCG/KG/MIN Insulin Human Lispro 0 unit 03/27/25 06:33 03/27/25 12:53 Insulin Lispro (Admelog) 1 Unit/0.01 Ml Unit SC 04/25/25 20:29 6 unit Q6HR CRIS Administration Protocol Pantoprazole Sodium 40 mg 03/26/25 19:15 03/27/25 09:53 Pantoprazole Inj 40 Mg Vial IVP 04/25/25 19:14 40 mg QDAY CRIS Administration Pharmacy Consult 1 each 03/26/25 19:15 03/27/25 10:04 Vancomycin Pharmacy To Dose 1 Each Each IV 04/25/25 19:14 Not Given QDAY CRIS Plan A 59-year-old female with a past medical history of diabetes, hypertension, asthma, and a chronic right leg wound was brought to the Emergency Department after being found unresponsive. Patient found to have embolic type stroke. Patient intubated and admitted to ICU for low GCS. 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 He informed patient's sister and mother about her condition and they came back to home around 9 AM and patient is still unconscious for which EMS is called and patient is brought to the ED. - En route to the hospital, in view of respiratory rate of 4 patient was given multiple doses of Narcan total of 8 mg that resulted in improving the mentations following which patient appears to be more alert - At the time of examination in the ED, patient is able to follow some commands appropriately but appeared very lethargic. Dx: - Labs at the time of admission showed WBC 13.1, bicarb 18.1, anion gap 19, glucose 550, lactate 4.7, total bilirubin 1.6, AST 146, ALT 61, total creatinine kinase 9752, procalcitonin 43.23 - Urine analysis showed turbid urine with 2+ proteinuria, 3+ glucosuria, 1+ ketones, 3+ blood, 10 RBC, 112 WBC, 10 squamous epithelial cells, 3+ calcium oxalate crystals, 4+ urine bacteria - Urine toxicology tested positive for amphetamines and marijuana - CT head showed abnormal low-density areas in the right frontal lobe - Brain MRI with MR angiogram showed multiple embolic foci of restricted diffusion bilateral occipital lobes, bilateral frontal and bilateral parotid lobes, most consistent with acute infarct Rx: - Will continue sedation for now as patient is becoming agitated and pulling out the tubes and becoming dyssynchronous with the ventilator. - RAAS score = -2 - Will treat underlying sepsis, stroke, metabolic causes, rhabdomyolysis RRx: - If despite all the underlying conditions are treated and patient is still altered, we will repeat brain imaging # CVA - bilateral embolic stroke - DDx: Cardiac thrombus versus infective endocarditis vegetation versus paroxysmal A-fib - Infective endocarditis: Patient presented to the hospital with chief complaints of fever, tachycardia and altered sensorium and on examination, also noted to have left right great toe ischemic area. In the setting of all of this, suspected to have infective endocarditis - Cardiac thrombus: Patient tested positive for methamphetamine abuse. Also noted to have features of heart failure including bilateral pedal edema and bilateral diffuse crackles at the time of admission. Patient might be having cardiomyopathy causing LV dysfunction and a formation of LV thrombus, but less suspected as patient had multiple bilateral embolic strokes -Paroxysmal A-fib: Patient does not follow-up with any primary care provider and exact history was not known. As the patient is having embolic stroke could be having possible paroxysmal A-fib causing the stroke Dx: - Echocardiogram with bubble study is ordered - Will continue telemetry monitoring - TSH is 2.43, A1c did not result due to lab error and was sent to [facility], [id number] Rx: - Will continue aspirin and atorvastatin for now - Will look for the causes of emboli CVS: # Shock DDx: Combined cardiogenic and septic shock - At the time of admission, patient was noted to have bilateral lower extremity edema and bilateral diffuse inspiratory crackles -possible heart failure in the setting of methamphetamine abuse, diabetes, hypertension - Also noted to have temperature of 101.8 ?F at the time of admission, likely due to some ongoing infection. Fits into 2/3 qsofa criteria. Noted to have GCS less than 15 and respiratory rate 35/min. - Suspecting sepsis worsening the underlying heart failure resulting in suspected possible combined septic and cardiogenic shock. - Patient Lasix 60 mg and 2 L bolus in the ED Dx: - Labs at the time of admission showed WBC 13.1, procalcitonin 43.23 - Urinalysis showed turbid urine with 2+ proteinuria, 3+ glucosuria, 112 WBC, 4+ bacteria suggestive of UTI - Blood cultures and urine cultures were sent - Echocardiogram is ordered Rx: - Patient appears fluid overloaded, will not give any more IV fluids - Patient is started on Levophed and will be titrate according to the blood pressures - Will continue antibiotics [vancomycin and Zosyn [03/27- - Will continue to monitor vitals RRx: -If needed will start vasopressin and epinephrine as needed # NSTEMI, likely type II - In the setting of demand ischemia - Troponin at the time of admission is 0.427, peaked at 20.920 and later down trended - EKG did not show any ST-T wave changes Plan - Will continue telemetry monitoring - Metal Dealer, Dr. Nayak is consulted and will follow the recommendations # Suspected possible CHF - Unsure whether patient is regular methamphetamine user, as family members is not aware of the use - Patient also have severe uncontrolled diabetes mellitus, which could also contribute to the ischemic heart disease and CHF Plan - Will follow-up on echocardiogram - Removing fluid through CRRT Pulmoary # Acute hypoxic respiratory failure # Respiratory acidosis DDx: Sepsis, acute encephalopathy, pulmonary edema, combined - Per patient family, patient does not have any previous history of respiratory problems and is not using any inhalers. Not a smoker Dx: - ABG at the time of admission showed pH 7.16, pCO2 58, pO2 68, FiO2 100% - Repeat ABG done on 03/27/2024 showed pH 7.3, pCO2 37, bicarb 18. Rx: - Patient is intubated, sedated and placed on mechanical ventilator - Will treat the underlying cause - Once the patient mentation improves and becomes hemodynamically stable, we will trying to wean off the ventilator if patient successfully passes SBT # History of asthma - Unclear if patient is using inhalers or if she has recent exacerbations - Currently does not appear to be in any exacerbations GI # Transaminitis # Hyperbilirubinemia - At the time of admission patient was found to have bilirubin of 1.6, AST 146, ALT 61 DDx: Fatty liver versus chronic liver disease versus viral hepatitis versus secondary to ongoing septic shock and possible suspected ischemia Dx: - Tested positive for hepatitis C antibody - Liver ultrasound showed 10 mm gallstone, CBD enlarged 0.6 cm, liver 18.5 cm fatty infiltration Rx: -Will continue to monitor liver functions - Will treat underlying sepsis and shock - Patient has to follow-up with professional soccer player on discharge on outpatient basis for follow-up on hepatitis C, currently does not suspect any active viral hepatitis # Renal # KINJAL DDx: Prerenal versus ATN in the setting of shock versus possible cardiorenal syndrome versus CKD in the setting of diabetes mellitus and hypertension versus atheroembolic versus rhabdomyolysis - Patient does not follow-up any primary care doctor and unsure of her baseline kidney functions Dx: - Patient noted to have decreased urine output and oliguric since the time of admission - Creatinine at the time of admission is 2.8 Rx: - Will continue to monitor renal functions - Will continue to monitor urine output - Will renally dose medication and avoid nephrotoxic medications - [employer], Dr. Zelaya is consulted and patient is started on CRRT through dialysis catheter placement in the right IJV. # High anion gap metabolic acidosis, resolved # Lactic acidosis - Likely in the setting of ongoing shock, likely due to sepsis - At the time of admission, anion gap is 19, lactate is 4.7 - Anion gap improved on day of admission and lactic acidosis is slowly improving after starting CRRT Rx: - Will continue CRRT - Will continue to monitor lab values # Rhabdomyolysis, resolving - Patient happened to be on the floor lying down for 4 to 5 hours - CT head at the time of presentation is 9752 and received 2 L of fluid in the ED, as patient is fluid overloaded cannot give more fluids - CK levels continue to trend down slowly Rx: - Will continue to monitor CK levels - Will continue CRRT Endo # Uncontrolled type 2 diabetes mellitus - Patient is not following any primary care provider and not taking medications properly per patient's family - Blood glucose at the time of admission is 550 for which patient was given 10 units of lispro in the ED - The patient had high anion gap metabolic acidosis, tested negative for beta- hydroxybutyrate and DKA is ruled out Plan - HbA1c sent, but did not result at due to lab error and the sample was sent to [facility] per chart review - Started on insulin lispro sliding scale and degludec 12 units subcutaneous at bedtime - Will titrate degludec according to FBS Hematology # Leukocytosis - WBC at the time of admission is 13.1, likely due to active ongoing sepsis Plan - Will continue to monitor CBC and will treat with antibiotics ID # Severe sepsis - Patient presented 2/3 qSOFA criteria including GCS less than 15 and respiratory rate 35 - Blood culture, urine culture were sent - Urinalysis is suggestive of UTI, likely the source of infection Plan - Will continue Zosyn and vancomycin - Will tailor antibiotics according to the culture results Musculoskeletal # Chronic right leg wound - Likely from uncontrolled diabetes mellitus and venous congestion - On physical examination, noted 5 x 6 cm wound with well-healing granulation tissue Plan - Will refer to wound care - Arterial Doppler was ordered which showed no PAD in bilateral lower extremities Health Maintenance: Diet: N.p.o. GI prophylaxis: Protonix DVT prophylaxis: Heparin subcut 5000 units every 8 hours Antibiotics: Vancomycin and Zosyn CODE STATUS: Full Disposition: ICU Case discussed with my attending Dr. Miguel A Anna, PGY2 Attending Provider Attestation/Addendum Patient seen and examined with resident. In brief is a 59-year-old female who was found at home unresponsive. 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 She was intubated for airway protection. She was brought up to the ICU. Overnight she was hypotensive requiring vasopressor support. On physical exam she is intubated, sedated, ET tube and OG tube are in place, lungs are clear, tachycardic, no increased work of breathing, no murmurs auscultated at this time, abdomen is soft and nontender, mobilizes all 4 extremities. There is evidence of pressure injury to the tissues on bilateral thighs as well as on her chest and neck. She has developed acute kidney injury with no urinary output requiring dialysis. The acute kidney injury is in the setting of shock as well as rhabdomyolysis. There is a high suspicion for underlying endocarditis given the multiple embolic CVAs that she has. An echocardiogram is currently pending. A bedside echo was performed and she appears to have a somewhat decreased EF with no significant pericardial effusion. This was done at the time the patient was on 3 vasopressors and dobutamine. Initially patient dropped her pressures requiring increase in the Levophed to 1 claus per kilogram per minute and then the rapid addition of vasopressin. She still had a MAP in the high 40s low 50s therefore an epinephrine drip was started. Given the results of the bedside echo dobutamine was ordered. After approximately 5 to 10 minutes her blood pressure rapidly increased to a reported systolic blood pressure of 300. All vasopressors were stopped as was a dobutamine. Esmolol was ordered. However prior to being able to give the esmolol patient's blood pressure returned to the low 140s 150s. After about another 20 minutes she required Levophed once more for MAP less than 65. She has been hemodynamically labile. She did not require any additional vasopressor support after that initial episode. For her respiratory failure she is intubated and on mechanical ventilation. Overnight she was on a high PEEP due to difficulty with oxygenation. This morning able to calm down somewhat on her FiO2. She did not require any additional vasopressor support after that initial episode. She has been tenuous throughout the day. Given her rhabdo and KINJAL along with lactic acidosis CRRT was initiated. Case was discussed with ICU team and family at bedside Case was discussed with nephrology Labs, imaging and records reviewed Approximately 95 critical care minutes required for evaluation, exam, review, intervention, discussion formulation plan of care of this critically ill patient who is hemodynamically unstable along with respiratory failure at high risk for further and ongoing decompensation. This time is not inclusive of any procedures.
[2025-03-27] MEDS: DEXMEDETOMIDINE 400 MCG IVPB 400 MCG/100 ML BAG 30.958 MCG IV ×2 (17:05→20:22)
[2025-03-27 17:27] LABS: Creatine Kinase 5964 U/L (34-171)
[2025-03-27] MEDS: PROPOFOL 1,000 MG IVPB 1,000 MG/100 ML VIAL 2.799 MG IV (17:32)
[2025-03-27 17:45] LABS: Troponin I 20.920 ng/mL (0.0-0.045)
--- NOTE | 2025-03-27 18:01 | EKG_ITS ---
[facility] Test Date: 2025-03-27 Pat Name: MARCOS MULLER [facility] [employer]: BALDEMAR : 1965 Requested By: Vj Anna Order Number: [id number] Reading MD: Vj Anna Measurements Intervals [place] Rate: 72 P: 40 TN: 172 QRS: 41 QRSD: 92 T: 85 QT: 369 QTc: 404 Interpretive Statements SINUS RHYTHM NONSPECIFIC T-WAVE ABNORMALITY Compared to ECG 03/27/2025 08:44:44 T-wave abnormality now present First degree AV block no longer present Intraventricular conduction delay no longer present Myocardial infarct finding no longer present /store/[id number]
[2025-03-27 18:38] LABS: Reflex Lactate? Y
[2025-03-27 19:10] LABS: Basophils # (Auto) 0.1 Thou/mm3 (0.0-0.2); Basophils % (Auto) 1 % (0-2.5); Eosinophils # (Auto) 0.0 Thou/mm3 (0.0-0.5); Eosinophils % (Auto) 0 % (0-10); Hematocrit 43.5 % (36.0-46.0); Hemoglobin 13.6 g/dL (12.0-16.0); Immature Granulocytes Auto 0.46 Thou/mm3 (0.00-0.00); Lymphocytes # (Auto) 1.6 Thou/mm3 (1.0-4.8); Lymphocytes % (Auto) 10 % (10-50); Mean Corpuscular HGB Conc 31.3 g/dl (31.0-37.0); Mean Corpuscular Hemoglobin 29.1 pg (25.0-35.0); Mean Corpuscular Volume 93 fL (80-100); Monocytes # (Auto) 1.2 Thou/mm3 (0.0-0.8); Monocytes % (Auto) 8 % (0-12); Neutrophils # (Auto) 11.6 Thou/mm3 (1.8-7.7); Neutrophils % (Auto) 77 % (37-80); Nucleated Red Blood Cell # 0.21 Thou/mm3 (0.00-0.00); Nucleated Red Blood Cell % 1 /100 WBC (0); Platelet Count 212 Thou/mm3 (140-440); RDW Standard Deviation 52.4 fL (36.4-46.3); Red Blood Count 4.67 Miln/mm3 (4.00-5.20); White Blood Count 15.0 Thou/mm3 (3.6-11.0)
[2025-03-27 19:13] LABS: Base Excess, Venous -2 (-3-3); Lactic Acid, 3 HR 2.1 mMol/L (0.4-2.0); O2 Saturation, Venous 86 % (96-97); PCO2, Venous 48 mmHg (36-56); PO2, Venous 52 mmHg (15-58); pH, Venous 7.31 (7.33-7.66)
[2025-03-27 19:18] LABS: Base Excess -2 (-3-3); HCO3 23 mEq/L (20-26); Inspired Oxygen, FIO2 80 %; O2 Saturation 97 % (91-98); PCO2 41 mmHg (32.0-48.0); PO2 79 mmHg (83-108); pH, Arterial 7.36 (7.35-7.45)
[2025-03-27 19:21] LABS: Allen Test Performed/OK; Puncture Site Arterial Line
[2025-03-27 19:38] LABS: Alanine Aminotransferase 114 U/L (10-49); Albumin, Serum 3.1 gm/dL (3.5-5.0); Albumin/Globulin Ratio 1.4 (1.2-2.2); Alkaline Phosphatase 93 U/L (46-116); Anion Gap 12 (7-16); Aspartate Amino Transferase 179 U/L (0-34); BUN/Creatinine Ratio 8 Ratio (12-20); Bilirubin,Total 0.7 mg/dL (0.3-1.2); Blood Urea Nitrogen 20 mg/dL (9-23); Calcium 8.0 mg/dL (8.3-10.6); Calcium (Corrected) 8.7 mg/dL (8.5-10.1); Carbon Dioxide 22.2 mMol/L (20.0-31.0); Chloride 104 mMol/L (98-107); Creatinine (Component) 2.4 mg/dL (0.6-1.3); Estimated Creatinine Clearance 26.6 mL/min (>60); Globulin 2.2 gm/dL (2.3-3.5); Glucose 226 mg/dL (74-106); Osmolality,Calculated 285 (275-295); Potassium 3.8 mMol/L (3.4-5.1); Sodium 138 mMol/L (136-145); Total Protein 5.3 gm/dL (5.7-8.2); eGFR 23 See Note
--- NOTE | 2025-03-27 19:39 | ESCONSULT_ITS ---
<Statement entered by Michael Nayak MD - 03/29/25 19:20> I personally evaluated examined this patient who has methamphetamine abuse came to the hospital with multiple problems hypoxic respiratory failure hypotension requiring vasopressors after multiple vasopressors troponin level jumped up to 20 appears to be combination of possible septic shock and cardiogenic shock. Clinically she has embolic phenomena bilateral cerebral infarctions as well as embolic phenomena to the foot possibly acute kidney injury with embolization to kidney critically ill unstable patient. Will obtain a cardiac echo for assessment of cardiac thrombi and endocarditis. She has had a high fever and GPC bacteria blood cultures hence we will continue to monitor the results. There is a possibility patient may have have infective endocarditis bacterial endocarditis with embolic phenomena hence anticoagulation should be withheld. Evaluate the patient with resident physician agree with the treatment plan and recommendation as documented by Dr. Dasilva HPI Data of Consult Requesting Physician: Luann Grady MD Admitting Provider: Luann Grady MD Attending Provider: Luann Grady MD Primary Care Provider: Physician No Primary/Family Consult Narrative History of present illness: Hospital Course: A 59-year-old F with PMH of DM, HTN, asthma, and chronic R leg wound was found unresponsive at home. LKW was 10:30 PM, discovered on the bathroom floor at 5 AM with pinpoint pupils, hypoventilation (RR 4), hypotension, and hypoxia. EMS gave total 8 mg Narcan with improved mentation. In ED, T 101.3, HR 94, BP 107/78, RR 35, SpO2 88% on BiPAP. She was intubated for GCS <8. CT head revealed R frontal infarcts, later MRI confirmed multiple embolic infarcts bilaterally. Utox positive for meth and marijuana. CXR showed cardiomegaly, vascular congestion, possible bibasilar PNA. Labs significant for AG metabolic acidosis, BG >700, KINJAL (Cr 2.7?3.3), rhabdomyolysis (CK >13k), transaminitis, elevated lactate, procalcitonin, and troponin. Current management include acute encephalopathy from multifactorial causes (stroke, sepsis, drug intoxication), acute hypoxic respiratory failure, severe sepsis likely 2/2 CAP and UTI, NSTEMI, KINJAL with rhabdo, and metabolic acidosis. Also concern for CHF given BNP elevation, vascular congestion, and edema. Cardiology was consulted for concern for acute coronary syndrome. Past medical history: As stated above Medications: pending med recon Allergies: NKDA Past surgical history: Unable to obtain at this time Past social history: Active smoker [id number]-wese history, remote heroin abuse, methamphetamine use, marijuana use Assessment: Presentation with bacteremia, endocarditis, acute cephalopathy, renal failure, troponinemia as a result of myocardial infarction, and distal extremity embolic phenomena is consistent with widespread, multisystem embolic disease. The likely nature is septic emboli with the source most likely cardiac given history of substance abuse disorder including METHAMPHETAMINE use.. TTE showed tricuspid vegetation, unable to rule out left valvular vegetation and will need further evaluation with SYLVIE. Anticoagulation are contraindicated in this case. Recommended continue ANTIBIOTICS and medical management including mechanical ventilation and pressor support. cc:: cc: Luann Grady MD Exam Vital Signs Temp Pulse Resp BP Pulse Ox O2 Del Method O2 Flow Rate 99.7 F 74 32 H 138/92 H 100 Mechanical Ventilation 15 03/27/25 16:03/27/25 19:22 03/27/25 19:22 03/27/25 19:22 03/27/25 19:22 03/27/25 16:02 03/26/25 10:59 FiO2 80 03/27/25 19:22 Narrative Exam General: Sedated and mechanically ventilated. obese. HEENT: Normocephalic, atraumatic, mucous membranes moist. Heart: Regular rate and rhythm, no murmurs. Lungs: Clear to auscultation with no wheezing or crackles. Abdomen: Soft, nondistended, nontender, positive bowel sounds. ?No guarding or rebound tenderness. Neurologic: Sedated and mechanically ventilated.Bilateral pupils are equal and reacting to light. Extremities: Noted bilateral pitting edema edema extending up to the knees, noted surgical scar on the left knee likely from TKR. Noted chronic wound of 5 x 6 cm in the right lower extremity. Noted tissue pressure injuries on the upper lateral right and left thigh. Also noted infected area in the right toe. Peripheral pulses are feeble Skin: No rash or ecchymoses. Results Labs 03/28/25:03/28/25 18:41 Labs: Short CBC 03/26/25 03/27/25 03/27/25 Range/Units 22:10 02:17 08:29 WBC 11.1 H 13.0 H 17.6 H (3.6-11.0) Thou/mm3 Hgb 13.6 13.8 13.6 (12.0-16.0) g/dL Hct 45.2 44.9 44.0 (36.0-46.0) % Plt Count 224 D 262 D 269 (140-440) Thou/mm3 03/27/25 Range/Units 18:48 WBC 15.0 H (3.6-11.0) Thou/mm3 Hgb 13.6 (12.0-16.0) g/dL Hct 43.5 (36.0-46.0) % Plt Count 212 D (140-440) Thou/mm3 BMP 03/26/25 03/27/25 03/27/25 22:10 01:20 02:17 Sodium 128 L 139 D 139 Potassium 4.6 4.5 4.5 Chloride 97 L 108 H 109 H Carbon Dioxide 19.1 L 19.0 L 18.7 L BUN 14 20 20 Creatinine 2.7 H 2.8 H 2.8 H Glucose > 700 H* D 434 H* D 421 H* Calcium 7.5 L D 7.8 L 7.9 L 03/27/25 07:55 Sodium 140 Potassium 4.4 Chloride 109 H Carbon Dioxide 19.2 L BUN 25 H Creatinine 3.3 H D Glucose 327 H D Calcium 7.9 L Cardiac Enzymes 03/26/25 03/27/25 03/27/25 Range/Units 22:10 02:17 09:10 Total Creatine Kinase 69030 H D 92081 H D (34-171) U/L Troponin I 0.954 H* D 0.956 H* 2.032 H* D (0.0-0.045) ng/mL 03/27/25 Range/Units 15:09 Total Creatine Kinase 5964 H D (34-171) U/L Troponin I 20.920 H* D (0.0-0.045) ng/mL Liver Function 03/26/25 03/27/25 03/27/25 Range/Units 22:10 02:17 07:55 Total Bilirubin 0.8 D 1.0 0.7 (0.3-1.2) mg/dL AST 242 H 216 H 170 H (0-34) U/L ALT 110 H 115 H 109 H (10-49) U/L Alkaline Phosphatase 67 D 70 70 (46-116) U/L Albumin 3.0 L D 3.1 L 2.9 L (3.5-5.0) gm/dL ABG Interpretation ABG results: 03/26/25 03/26/25 03/26/25 11:18 11:44 16:23 ABG pH 7.27 L Cancelled ABG pCO2 40 Cancelled ABG pO2 146 H Cancelled ABG HCO3 18 L Cancelled ABG O2 Saturation 100 H Cancelled ABG Base Excess -8 L Cancelled VBG pH 7.19 L VBG pCO2 48 VBG pO2 37 VBG Base Excess -10 L 03/26/25 03/27/25 03/27/25 18:43 00:17 03:42 ABG pH 7.16 L* D 7.24 L Cancelled ABG pCO2 58 H D 44 D Cancelled ABG pO2 68 L D 80 L Cancelled ABG HCO3 21 19 L Cancelled ABG O2 Saturation 90 L 96 Cancelled ABG Base Excess -9 L -8 L Cancelled VBG pH VBG pCO2 VBG pO2 VBG Base Excess 03/27/25 03/27/25 03/27/25 04:04 07:55 18:48 ABG pH 7.26 L 7.30 L ABG pCO2 43 37 ABG pO2 83 174 H D ABG HCO3 19 L 18 L ABG O2 Saturation 97 101 H ABG Base Excess -7 L -8 L VBG pH 7.21 L 7.31 L VBG pCO2 49 48 VBG pO2 54 52 VBG Base Excess -8 L -2 03/27/25 19:07 ABG pH 7.36 ABG pCO2 41 ABG pO2 79 L D ABG HCO3 23 ABG O2 Saturation 97 ABG Base Excess -2 VBG pH VBG pCO2 VBG pO2 VBG Base Excess Quality Measures Quality Measures none Medications Home Medications and Allergies Allergies Allergy/AdvReac Type Severity Reaction Status Date / Time No Known Allergies Allergy Verified 03/26/25 11:03 Visit Medications Acetaminophen (Acetaminophen 325 Mg Tablet) 650 mg PO Q4HR PRN PRN Reason: Pain Scale 1-3 fever >100.4 Stop: 04/25/25 18:57 Albuterol/Ipratropium (Albuterol/Ipratropium (Duoneb) Rt Jennifer 3 Ml Nebu) 3 ml INH Q6HRRT [facility] Stop: 04/26/25 00:59 Last Admin: 03/27/25 19:04 Dose: 3 ml Aspirin (Aspirin 81 Mg Chew) 81 mg NG QDAY CRIS Stop: 04/26/25 08:59 Last Admin: 03/27/25 09:54 Dose: 81 mg Atorvastatin Calcium (Atorvastatin Calcium 20 Mg Tablet) 80 mg PO HS CRIS Stop: 04/25/25 20:59 Last Admin: 03/26/25 22:49 Dose: 80 mg Dextrose (Dextrose 50%-Water Inj 50 Ml Syringe) 25 ml IV Q15MIN PRN PRN Reason: BG 50-70 responsive npo pt Stop: 04/25/25 20:19 Dextrose (Dextrose 50%-Water Inj 50 Ml Syringe) 50 ml IV Q15MIN PRN PRN Reason: BG <50 OR BG <70 & pt unresponsive Stop: 04/25/25 20:19 Glucagon (Glucagon Inj 1 Mg Vial) 1 mg IM Q15MIN PRN PRN Reason: BG <70, and no IV access Heparin Sodium (Porcine) (Heparin Sod Inj 5000 Unit/Ml Vial) 5,000 unit SC Q8HR CRIS Stop: 04/10/25 13:59 Last Admin: 03/27/25 14:39 Dose: 5,000 unit Norepinephrine/Dextrose (Levophed In D5w 8mg/250ml) 8 mg in 250 mls @ 8.292 mls/hr IV .Q24H PRN; Protocol PRN Reason: PER PROTOCOL Stop: 04/25/25 19:49 Last Titration: 03/27/25 18:00 Dose: 0.05 mcg/kg/min, 8.292 mls/hr Dexmedetomidine/Sodium Chloride (Precedex Ivpb) 400 mcg in 100 mls @ 4.423 mls/hr IV .[id number] PRN; Protocol PRN Reason: Per PROTOCOL Stop: 04/25/25 14:17 Last Titration: 03/27/25 18:00 Dose: 1.4 mcg/kg/hr, 30.958 mls/hr Fentanyl Citrate (Sublimaze Inj 2,500 Mcg/250 Ml Bag) 2,500 mcg in 250 mls @ 2.5 mls/hr IV .Q24H PRN; Protocol PRN Reason: PER PROTOCOL Stop: 03/31/25 23:52 Last Titration: 03/27/25 18:00 Dose: 300 mcg/hr, 30 mls/hr Piperacillin/Tazobactam/Dextrose (Zosyn) 3.375 gm in 50 mls @ 12.5 mls/hr IV Q8HR CRIS Stop: 04/03/25 13:59 Last Admin: 03/27/25 14:38 Dose: 12.5 mls/hr Vasopressin/Sodium Chloride (Vasostrict/Ns Ivpb) 20 unit in 100 mls @ 9 mls/hr IV .Q11H7M PRN; Protocol PRN Reason: PER PROTOCOL Stop: 04/26/25 07:13 Last Titration: 03/27/25 08:23 Dose: 0 unit/min, 0 mls/hr Epinephrine/Sodium Chloride (Adrenalin/Ns 16 Mg Ivpb) 16 mg in 250 mls @ 4.373 mls/hr IV .Q24H PRN; Protocol PRN Reason: Per Protocol Stop: 04/26/25 07:41 Last Titration: 03/27/25 08:22 Dose: 132 mcg/kg/min, 11,545.875 mls/hr Dobutamine HCl/Dextrose (Dobutrex/D5w Ivpb) 500 mg in 250 mls @ 2.799 mls/hr IV .Q24H CRIS Stop: 04/26/25 08:09 Last Infusion: 03/27/25 08:22 Dose: 0 mcg/kg/min, 0 mls/hr Esmolol HCl (Esmolol In Ns 2000 Mg Ivpb) 2,000 mg in 100 mls @ 13.995 mls/hr IV .Q7H9M PRN; Protocol PRN Reason: PER PROTOCOL Stop: 04/26/25 08:23 Propofol (Diprivan Ivpb) 1,000 mg in 100 mls @ 2.799 mls/hr IV .Q24H PRN; Protocol PRN Reason: PER PROTOCOL Stop: 04/26/25 17:33 Last Titration: 03/27/25 18:00 Dose: 15 mcg/kg/min, 8.397 mls/hr Insulin Human Lispro (Insulin Lispro (Admelog) 1 Unit/0.01 Ml Unit) 0 unit SC Q6HR CRIS; Protocol Stop: 04/25/25 20:29 Last Admin: 03/27/25 18:45 Dose: 4 unit Pantoprazole Sodium (Pantoprazole Inj 40 Mg Vial) 40 mg IVP QDAY [facility] Stop: 04/25/25 19:14 Last Admin: 03/27/25 09:53 Dose: 40 mg Pharmacy Consult (Vancomycin Pharmacy To Dose 1 Each Each) 1 each IV QDAY [facility] Stop: 04/25/25 19:14 Last Admin: 03/27/25 10:04 Dose: Not Given Discontinued Medications Albuterol (Albuterol Rt 2.5 Mg/3 Ml Nebu) 2.5 mg INH X1 ONE Stop: 03/26/25 10:40 Last Admin: 03/26/25 11:41 Dose: 2.5 mg Albuterol/Ipratropium (Albuterol/Ipratropium (Duoneb) Rt Jennifer 3 Ml Nebu) 3 ml INH X1 ONE Stop: 03/26/25 10:40 Last Admin: 03/26/25 11:41 Dose: 3 ml Aspirin (Aspirin 81 Mg Chew) 324 mg PO X1 ONE Stop: 03/26/25 19:06 Last Admin: 03/26/25 22:46 Dose: 324 mg Aspirin (Aspirin Ec 81 Mg Tabec) 81 mg PO QDAY [facility] Stop: 04/26/25 08:59 Last Admin: 03/27/25 10:18 Dose: Not Given Bumetanide (Bumetanide Inj 0.25 Mg/Ml Vial 4 Ml) 1 mg IVP X1 ONE Stop: 03/27/25 10:47 Last Admin: 03/27/25 11:23 Dose: 1 mg Clopidogrel Bisulfate (Clopidogrel Bisulfate 75 Mg Tablet) 75 mg PO QDAY [facility] Stop: 04/25/25 19:14 Last Admin: 03/27/25 10:18 Dose: Not Given Clopidogrel Bisulfate (Clopidogrel Bisulfate 75 Mg Tablet) 75 mg NG QDAY [facility] Stop: 04/25/25 19:14 Last Admin: 03/27/25 09:54 Dose: 75 mg Esmolol HCl (Esmolol Inj 10 Mg/Ml Vial 10 Ml) 45 mg IVP X1 ONE Stop: 03/27/25 08:31 Last Admin: 03/27/25 10:04 Dose: Not Given Fentanyl Citrate (Fentanyl Cit Inj 50 Mcg/Ml Amp 2ml) 50 mcg IVP X1 ONE Stop: 03/26/25 23:50 Last Admin: 03/27/25 00:01 Dose: 50 mcg Fentanyl Citrate (Fentanyl Cit Inj 50 Mcg/Ml Amp 2ml) 50 mcg IM X1 ONE Stop: 03/26/25 23:51 Fentanyl Citrate (Fentanyl Cit Inj 50 Mcg/Ml Amp 2ml) 50 mcg IVP X1 ONE Stop: 03/27/25 06:36 Last Admin: 03/27/25 06:40 Dose: 50 mcg Furosemide (Furosemide Inj 10 Mg/Ml 4ml Vial) 60 mg IVP X1 ONE Stop: 03/26/25 11:28 Last Admin: 03/26/25 11:36 Dose: 60 mg Heparin Sodium (Porcine) (Heparin Sod Inj 5000 Unit/Ml Vial) 5,000 unit SC Q12HR [facility] Stop: 04/09/25 20:59 Last Admin: 03/27/25 09:54 Dose: 5,000 unit Ceftriaxone Sodium/Dextrose (Rocephin/D5w 1gm Iv Premix) 1 gm in 50 mls @ 100 mls/hr IV QDAY CRIS Stop: 04/02/25 12:39 Last Infusion: 03/26/25 14:09 Dose: Infused Doxycycline Hyclate 100 mg/ (Sodium Chloride) 100 mls @ 100 mls/hr IV X1 ONE Stop: 03/26/25 13:39 Last Infusion: 03/26/25 16:43 Dose: Infused Acetaminophen (Ofirmev Inj) 1,000 mg in 100 mls @ 250 mls/hr IV NOW ONE Stop: 03/26/25 13:48 Last Infusion: 03/26/25 14:10 Dose: Infused Sodium Chloride (Ns) 1,000 mls @ 999 mls/hr IV .Q1H1M ONE Stop: 03/26/25 14:58 Last Infusion: 03/26/25 15:00 Dose: Infused Dexmedetomidine/Sodium Chloride (Precedex Ivpb) 400 mcg in 100 mls @ 4.423 mls/hr IV .[id number] PRN; Protocol PRN Reason: Per PROTOCOL Stop: 04/25/25 14:17 Last Titration: 03/27/25 00:43 Dose: 0.8 mcg/kg/hr, 17.69 mls/hr Lactated Ringer's (Lactated Ringers) 1,000 mls @ 999 mls/hr IV .Q1H1M ONE Stop: 03/26/25 18:51 Last Admin: 03/26/25 18:57 Dose: 999 mls/hr Vancomycin HCl 1,500 mg/ (Sodium Chloride) 500 mls @ 198 mls/hr IV X1 ONE Stop: 03/26/25 22:01 Last Admin: 03/26/25 22:50 Dose: 198 mls/hr Piperacillin Sod/Tazobactam (Sod 3.375 gm/ Sodium Chloride) 50 mls @ 100 mls/hr IV X1 ONE Stop: 03/26/25 20:44 Last Admin: 03/26/25 22:53 Dose: 100 mls/hr Sodium Chloride (Ns) 1,000 mls @ 999 mls/hr IV .Q1H1M ONE Stop: 03/26/25 21:17 Last Infusion: 03/26/25 21:00 Dose: Infused Dexmedetomidine/Sodium Chloride (Precedex Ivpb) 400 mcg in 100 mls @ 4.423 mls/hr IV .[id number] PRN; Protocol PRN Reason: Per PROTOCOL Stop: 04/25/25 14:17 Piperacillin/Tazobactam/Dextrose (Zosyn) 2.25 gm in 50 mls @ 100 mls/hr IV X1 ONE Stop: 03/26/25 21:14 Last Admin: 03/27/25 00:38 Dose: Not Given Piperacillin Sod/Tazobactam (Sod 3.375 gm/ Sodium Chloride) 50 mls @ 12.5 mls/hr IV Q12HR CRIS Stop: 04/03/25 08:59 Piperacillin Sod/Tazobactam (Sod 3.375 gm/ Sodium Chloride) 50 mls @ 12.5 mls/hr IV Q6HR CRIS Stop: 04/03/25 04:59 Last Admin: 03/27/25 05:39 Dose: 12.5 mls/hr Sodium Chloride (Ns) 500 mls @ 999 mls/hr IV .Q31M ONE Stop: 03/27/25 07:53 Last Admin: 03/27/25 10:03 Dose: Not Given Albumin Human (Albuminar-25 Ivpb) 25 gm in 100 mls @ 100 mls/hr IV QDAY [facility] Stop: 03/30/25 07:45 Last Admin: 03/27/25 09:29 Dose: 100 mls/hr Esmolol HCl (Esmolol In Ns 2000 Mg Ivpb) 2,000 mg in 100 mls @ 139.95 mls/hr IV .Q43M PRN; Protocol PRN Reason: PER PROTOCOL Stop: 04/26/25 08:23 Insulin Degludec (Insulin Degludec 5 Unit/0.05 Ml (Per 5 Units)) 18 unit SC X1 ONE Stop: 03/26/25 20:46 Last Admin: 03/26/25 22:55 Dose: 18 unit Insulin Human Lispro (Insulin Lispro (Admelog) 1 Unit/0.01 Ml Unit) 0 unit SC AC CRSI; Protocol Stop: 04/26/25 07:29 Insulin Human Lispro (Insulin Lispro (Admelog) 1 Unit/0.01 Ml Unit) 0 unit SC Q6HR CRIS; Protocol Stop: 04/25/25 20:29 Insulin Human Lispro (Insulin Lispro (Admelog) 1 Unit/0.01 Ml Unit) 0 unit SC Q6HR CRIS; Protocol Stop: 04/25/25 20:29 Last Admin: 03/27/25 05:40 Dose: 5 unit Insulin Human Lispro (Insulin Lispro (Admelog) 1 Unit/0.01 Ml Unit) 10 unit SC X1 ONE Stop: 03/27/25 04:00 Last Admin: 03/27/25 04:13 Dose: 10 unit Insulin Human Regular (Insulin Hum Regular 1 Unit/0.01 Ml (Per Unit)) 10 unit IV X1 ONE Stop: 03/26/25 12:37 Last Admin: 03/26/25 13:08 Dose: 10 unit Ketamine HCl (Ketamine 50 Mg/Ml Vial 10 Ml) 100 mg IVP X1 ONE Stop: 03/26/25 14:19 Last Admin: 03/26/25 14:39 Dose: 100 mg Midazolam HCl (Midazolam Inj 1 Mg/Ml Vial 2 Ml) 2 mg IV PRN ONE Stop: 03/26/25 11:17 Last Admin: 03/26/25 11:36 Dose: 2 mg Midazolam HCl (Midazolam Inj 1 Mg/Ml Vial 2 Ml) 2 mg IVP X1 ONE Stop: 03/27/25 07:25 Last Admin: 03/27/25 07:24 Dose: 2 mg Naloxone HCl (Naloxone Inj 1 Mg/Ml Syringe 2 Ml) 0.4 mg IV X1 ONE Stop: 03/26/25 10:40 Last Admin: 03/26/25 10:45 Dose: 0.4 mg Rocuronium [place] (Rocuronium Inj 10 Mg/Ml Vial 10 Ml) 88 mg 1 mg/kg (88 mg) IV X1 ONE Stop: 03/26/25 14:19 Last Admin: 03/26/25 14:45 Dose: 88 mg Sodium Chloride (Sodium Chloride Rt 10% 15 Ml Nebu) 5 ml INH X1 ONE Stop: 03/26/25 15:43 Last Admin: 03/26/25 19:33 Dose: Not Given Assessment & Plan Plan This is a 59-year-old female with PMHx of drug use disorder, presented to ED with acute encephalopathy requiring intubation with findings of multi embolic disease involving multiple systems including brain and left distal extremity, acute and failure with the cause likely renal emboli, with findings of vegetations on SYLVIE. Admitted to ICU for ventilator support, pressor support for likely septic shock, and CRRT. 1. Acute encephalopathy, multifactorial, related to metabolic derangement and embolic CVA. 2. Septic shock in settings of endocarditis with bacteremia 3. Heart failure with reduced ejection fraction EF 40-45%. 3. NSTEMI type type I (embolic GA) vs. Type 2 (demand ischemia 2/2 shock) 4. Acute renal failure likely 2/2 septic shock vs. renal emboli vs. rhabdomyolysis IMPRESSION: This is a critically ill patient with multifactorial encephalopathy and acute multifocal embolic strokes, likely secondary to infective endocarditis. Echocardiogram shows a normal-sized LV with mild apical and global hypokinesis, LVEF 40?45%, mildly decreased RV systolic function, and tricuspid valve vegetation. Additional valvular findings include aortic valve sclerosis with mild AR and mitral valve thickening with mild MR. She is in septic shock, requiring vasopressors, and has developed troponinemia related to hemodynamic instability. The patient is intubated for acute hypoxemic respiratory failure with significant space ventilation and concern for PE. She also has acute kidney injury from sepsis and rhabdomyolysis, a newly diagnosed hepatitis C with transaminitis, poorly controlled diabetes, leukocytosis, UTI with pansensitive E. coli, and ischemic changes in the left toe likely due to vasopressor use or embolic phenomena. She has a history of methamphetamine use contributing to overall risk, and her condition is complicated by recurrent ventricular arrhythmias. RECOMMENDATIONS: Prognosis overall is guarded. Management should focus on medical therapy and supportive care, as the patient is not a candidate for surgical or percutaneous intervention given the combination of septic endocarditis, impaired ventricular function, and poor overall prognosis. Anticoagulation is much indicated in this case given the nature of the emboli and septic. Continue with ASPIRIN and high-dose statin, and careful hemodynamic support with vasopressors while avoiding wide BP fluctuations. Treat the endocarditis with appropriate IV antibiotics and will follow-up with SYLVIE to evaluate for left-sided vegetations. Continue with CRRT for renal failure. Case was discussed with attending physician, Dr. Nayak. Wandy Dasilva DO PGY II This document was transcribed using voice recognition technology. Minor inaccuracies may be present.
[2025-03-27 19:41] LABS: INR 1.2 (0.9-1.3); Partial Thromboplastin Time 28.2 Seconds (22.0-36.0); Prothrombin Time 13.3 Seconds (9.0-12.2)
[2025-03-27 21:14] LABS: Lactate (Lactic Acid) 1.8 mMol/L (0.4-2.0)
[2025-03-27] MEDS: INSULIN DEGLUDEC 5 UNIT/0.05 ML (PER 5 UNITS) 12 UNIT SC (21:28)
[2025-03-27] MEDS: ATORVASTATIN CALCIUM 20 MG TABLET 80 MG PO (21:28)
[2025-03-27 22:24] LABS: Troponin I 14.934 ng/mL (0.0-0.045)
[2025-03-28] VITALS (129 sets, daily range): BP systolic 47–228; BP diastolic 0–111; PULSE 42–83; RESP 21–36; TEMP 36.4–36.9; O2SAT 43–100
[2025-03-28] MEDS: ALBUTEROL/IPRATROPIUM (Duoneb) RT SOL 3 ML NEBU INH ×3 (00:22→18:23)
--- NOTE | 2025-03-28 00:28 | PD.EDADDENDU ---
Emergency Room Addendum Addendum Narrative: Procedure note: I was called the patient's bedside up in the ICU room [address] Celis to put in a dialysis catheter. The patient's left groin was prepped using chlorhexidine for skin cleansing and the left femoral vein was entered with the needle and the guidewire was threaded. The skin was incised and is 11 blade scalpel and using 2 sequential dilators the left femoral vein was expanded. The dialysis catheter was then threaded over a wire into the vessel. There was blood return from each of the lines and each of the lines was flushed and sutured in place and sterilely dressed.
--- NOTE | 2025-03-28 01:07 | XR_ITS ---
Examination: AP chest single view Technique one AP portable semiupright chest single view Date and time: March 28, 2025, 0118 hours COMPARISON: March 27, 2025 INDICATIONS: Hypoxic respiratory failure, postintubation FINDINGS: Minor prominence left ventricle. Moderate vascular congestion. Right perihilar opacity consistent with pneumonia. Endotracheal tube tip 5.8 cm above Toma. Temporary right internal jugular dialysis catheter tip SVC. The orogastric tube is in the stomach satisfactory position IMPRESSION: Right perihilar basilar pneumonia
[2025-03-28] MEDS: HEPARIN SOD INJ 1000 UNIT/ML VIAL 10 ML 1600 UNIT INDWELLCAT (01:36)
--- NOTE | 2025-03-28 01:39 | PD.RESPROC ---
PROCEDURES: Procedure Date / Time 03/28/25 0139 Central Line Placement Right IJ: Indication(s): other (Initial R dialysis line wasn't working with CRRT, threaded new line in same location of R IJ) Informed consent obtained: implied Time out done, and the following verified: correct patient, side and site, procedure, patient position and implants and/or equipment Patient placed on monitor/pulse ox: Yes Hand Hygiene: scrub, soap & water and alcohol-based hand rub Max Sterile Barrier Techniques used: cap, mask, sterile gown, sterile gloves and sterile full body drape Central line prep: Chlorhexidine scrub and sterile drapes applied Central line lumen inserted: triple Post procedure: sutured in place, good blood return, all ports aspirated, flushed, capped and sterile dressing applied Post procedure x-ray: tip of catheter in good position Patient tolerated procedure: well and no complications EBL(ml): 5 Complications: none Procedure comment: Previous R IJ dialysis line was exchanged with new dialysis line. Lots of clots noted after replacing line. CXR appears to have R IJ dialysis line in place, and resumed CRRT. Procedure done under supervision of ED physician, DO. Amanda Saunders, PGY-3
[2025-03-28] MEDS: Norepinephrine/D5W 8mg/250ml 8 MG/250 ML BAG 33.169 MG IV (01:49)
[2025-03-28 04:17] LABS: Base Excess 1 (-3-3); HCO3 27 mEq/L (20-26); Inspired Oxygen, FIO2 21 %; O2 Saturation 96 % (91-98); PCO2 45 mmHg (32.0-48.0); PO2 73 mmHg (83-108); pH, Arterial 7.38 (7.35-7.45)
[2025-03-28 04:18] LABS: Allen Test Performed/OK; Puncture Site Arterial Line
[2025-03-28] MEDS: PROPOFOL 1,000 MG IVPB 1,000 MG/100 ML VIAL 8.397 MG IV (04:54)
--- NOTE | 2025-03-28 05:00 | XR_ITS ---
Examination: AP chest single view Technique one AP portable semiupright chest single view Date and time: March 28, 2025, 0742 hrs., Comparison March 28, 2025 Indications: Hypoxic respiratory failure. Findings: Mild enlargement cardiac contour Right perihilar basilar pneumonia Right temporary dialysis catheter via internal jugular vein satisfactory position Tracheal tube tip 4.5 cm above jerardo. Orogastric tube in stomach Impression: Persistent right perihilar basilar pneumonia.
[2025-03-28] MEDS: HEPARIN SOD INJ 5000 UNIT/ML VIAL SC ×3 (05:27→21:27)
[2025-03-28] MEDS: PIPER/TAZO 3.375 GM PREMIX 3.375 GM/50 ML BAG IV ×3 (05:27→21:26)
[2025-03-28 05:53] LABS: Basophils # (Auto) 0.0 Thou/mm3 (0.0-0.2); Basophils % (Auto) 0 % (0-2.5); Eosinophils # (Auto) 0.1 Thou/mm3 (0.0-0.5); Eosinophils % (Auto) 1 % (0-10); Hematocrit 43.1 % (36.0-46.0); Hemoglobin 13.6 g/dL (12.0-16.0); Immature Granulocytes Auto 0.33 Thou/mm3 (0.00-0.00); Lymphocytes # (Auto) 1.6 Thou/mm3 (1.0-4.8); Lymphocytes % (Auto) 11 % (10-50); Mean Corpuscular HGB Conc 31.6 g/dl (31.0-37.0); Mean Corpuscular Hemoglobin 29.4 pg (25.0-35.0); Mean Corpuscular Volume 93 fL (80-100); Monocytes # (Auto) 1.0 Thou/mm3 (0.0-0.8); Monocytes % (Auto) 6 % (0-12); Neutrophils # (Auto) 12.6 Thou/mm3 (1.8-7.7); Neutrophils % (Auto) 81 % (37-80); Nucleated Red Blood Cell # 0.12 Thou/mm3 (0.00-0.00); Nucleated Red Blood Cell % 1 /100 WBC (0); Platelet Count 198 Thou/mm3 (140-440); RDW Standard Deviation 52.7 fL (36.4-46.3); Red Blood Count 4.63 Miln/mm3 (4.00-5.20); White Blood Count 15.7 Thou/mm3 (3.6-11.0)
[2025-03-28 06:33] LABS: Alanine Aminotransferase 104 U/L (10-49); Albumin, Serum 3.0 gm/dL (3.5-5.0); Albumin/Globulin Ratio 1.3 (1.2-2.2); Alkaline Phosphatase 107 U/L (46-116); Anion Gap 12 (7-16); Aspartate Amino Transferase 148 U/L (0-34); BUN/Creatinine Ratio 9 Ratio (12-20); Bilirubin,Total 0.8 mg/dL (0.3-1.2); Blood Urea Nitrogen 15 mg/dL (9-23); Calcium 8.6 mg/dL (8.3-10.6); Calcium (Corrected) 9.4 mg/dL (8.5-10.1); Carbon Dioxide 25.4 mMol/L (20.0-31.0); Chloride 101 mMol/L (98-107); Creatinine (Component) 1.6 mg/dL (0.6-1.3); Estimated Creatinine Clearance 40.0 mL/min (>60); Globulin 2.4 gm/dL (2.3-3.5); Glucose 170 mg/dL (74-106); Osmolality,Calculated 280 (275-295); Potassium 3.8 mMol/L (3.4-5.1); Sodium 138 mMol/L (136-145); Total Protein 5.4 gm/dL (5.7-8.2); Vancomycin,Random 7.7 mcg/mL; eGFR 37 See Note
[2025-03-28 06:39] LABS: Troponin I 8.789 ng/mL (0.0-0.045)
[2025-03-28] MEDS: fentaNYL 2,500 MCG/250 ML BAG 2,500 MCG/250 ML BAG 15 MCG IV (07:25)
--- NOTE | 2025-03-28 08:42 | PCS.ST ---
Pt is intubated at this time. Will cancel Speech consult.
--- NOTE | 2025-03-28 08:54 | PD.INTPROC ---
PROCEDURES: Procedure Date / Time 03/27/25 0715 Arterial Line Indication(s): shock and inability to monitor non-invasive BP Informed consent obtained: procedure done urgently Time out done, and the following verified: correct patient, side and site, procedure and patient position Technique used: guide wire technique Post-Procedure: line sutured into place and dry sterile dressing placed Patient tolerated procedure: well and no complications EBL(ml): 5 Complications: none Site: right and femoral
[2025-03-28 09:47] LABS: Creatine Kinase 3666 U/L (34-171)
[2025-03-28] MEDS: VANCOMYCIN/NS 500 MG IVPB 100 ML 120 MG IV (09:50)
[2025-03-28] MEDS: ASPIRIN 81 MG CHEW NG (09:59)
--- NOTE | 2025-03-28 10:25 | PC.NURSE ---
Dr. Zelaya and Dr. BATES AT bedside, Dr. Zelaya increase goal removal to 2400 and increased time to 17 hours ( 1 hour increased).
--- NOTE | 2025-03-28 11:28 | ESPR_ITS ---
Documentation for date of: 03/28/25 Subjective Subjective Interval history: Reason for consult: KINJAL, oligoanuria-needing CRRT History of present illness: (patient was intubated during this program writer's visit so the following narrative was constructed primarily via chart checking) Vashti Ross is a 59-year-old F with a PMH of diabetes, hypertension, asthma, substance use disorder (including opiates, probable methamphetamine, and marijuana) on methadone previously, and a chronic right leg wound brought in by ambulance from her home for altered mental status. Per ED rendition of EMS report, patient was noted to be altered with a respiratory rate of 4 en route to [facility]. A total of 8 mg of Narcan was administered at this time which initially improved mentation. Upon arrival, patient was noted to be somnolent and given an additional 0.4 mg of IV Narcan which made her more active but also more combative. She was also noted to be hypoxic and in respiratory distress upon arrival which led her to be put on BiPAP. During her agitated episode, patient endorsed that she hurt all over and loudly yelled that I gotta get out of here . She was eventually given 2 mg of IV Versed and put on restraints due to her continued agitation. Later, she was taken for an MRI which required removal of her BiPAP but upon removal a subsequent drop in O2 saturation to the low 90s was noted. It was deemed that her airway was not secure and the decision was made to intubate the patient. After the MRI was performed, patient was eventually admitted to the ICU. From family collateral, it was learned that patient's last known well time was 22:30 on 03/26. Patient had been found on the floor by her at 05:00 on 03/27 whereupon he tried to rouse her from her stupor, failed, called patient's sister to notify her about patient's condition, and finally left her to go to work. Patient's sister arrived around 09:00 and found patient still lying on the bathroom whereupon this program writer assumes she called for an ambulance to bring the patient to the ED. In the ED, vitals showed: BP 107/78 HR 94 RR 35 Temp 101.3 SpO2 98% on 15 L BiPAP ED Course: CBC showed high WBC 13.1 w/ neutrophilic predominance but was otherwise WNL. Coagulation panel showed high PT 13.3. ABG showed acidic pH 7.27, normal pCO2 40, high pO2 146, low HCO3 18. CMP showed low carbon dioxide 18.1, high anion gap 19, high creatinine 2.8, low eGFR 19, very high blood glucose 550, very high lactic acid 4.7, high bilirubin 1.6, high AST 146, high ALT 61, high total creatine kinase 9752, very high troponin I 0.427, high BNP 297, and high procalcitonin 43.23. UA showed 2+ protein, 3+ glucose, 1+ ketones, 3+ blood, high RBC 10, high WBC 112, 3+ calcium oxalate crystals, 4+ bacteria, normal random sodium 34.2, normal random potassium 26, and low random chloride 23.2. UDS was (+) for amphetamines/methamphetamines and marijuana. Serological studies were reactive for hepatitis C antibody. Imaging: Head CT showed findings most consistent with acute right frontal lobe infarcts. Brain MRI showed multiple embolic-type foci of restricted diffusion in the b ilateral occipital lobes, bilateral frontal lobes, and bilateral parietal lobes most consistent with acute infarcts. CXR showed bibasilar pneumonia and findings suspicious for mild associated heart failure. Renal US showed small kidneys with right renal cortical thinning as well as mild right and moderate left renal parenchymal scar formation. Carotid doppler study showed 20-40% stenosis of the right internal carotid artery and 0-10% stenosis of the left internal carotid artery. EKG was unremarkable. In the ED, patient was given Duoneb Precedex, doxycycline, etomidate, Lasix, regular insulin, ketamine, Versed, naloxone, 1 L LR bolus, Zemuron, and 1 L NS bolus. Patient was intubated due to low GCS and was admitted to the ICU. Nephrology was consulted due to patient's need for urgent hemodialysis. Neurology is also following. Interval History 03/28/2025: No overnight events. Patient seen and examined at bedside; they remained intubated and unable to describe their current experience. Notable labs today include: WBC bump to 15.7 from 15.0, creatinine drop to 1.6 from 2.4, blood glucose 170, AST drop to 148 from 179, ALT dropped to 104 from 114, total CK drop to 3666 from 5964, and troponin I drop to 8.789 from 14.934. Urine culture was positive for E. coli and 1 of 2 blood cultures was positive for GPC's (current speciation still pending). She remains without urinary output and has required CRRT. Her echocardiogram came back today showing decreased ejection fraction of 40 to 45% along with vegetations of the tricuspid valve (suggestive of endocarditis). From nephrology's standpoint, patient will be receiving hemodialysis today. Exam Vital Signs Temp Pulse Resp BP Pulse Ox O2 Del Method O2 Flow Rate 97.9 F 65 32 H 126/74 97 Mechanical Ventilation 15 03/28/25 08:00 03/28/25 11:14 03/28/25 06:38 03/28/25 11:14 03/28/25 10:27 03/28/25 10:00 03/26/25 10:59 FiO2 80 03/28/25 10:27 Narrative Exam General: Intubated, unconscious HEENT: NCAT Neck: Supple CV: S1+S2. RRR. No m/r/g Lungs: Reduced air entry bilaterally, insp crackles, no work of breathing, no respiratory distress. Abd: Soft, nontender, nondistended, bowel sounds present, no organomegaly Extremities: Left toe appears slightly darker than right toe. From the neck to the top of the chest there was erythema noted likely from pressure lesion, large ulceration in the right distal leg in anterior aspect as well as pressure lesion; chronic venous changes in bilateral legs, pedal pulses present bilaterally Neuro: Unable to assess due to patient's level of consciousness and intubated status Skin: Warm, dry, intact Objective Labs 03/28/25 15:25 03/28/25 18:41 Labs: Laboratory Results - last 24 hr 03/27/25 03/27/25 03/27/25 03:42 09:10 15:09 WBC RBC Hgb Hct MCV MCH MCHC RDW Std Deviation Plt Count Neut % (Auto) Lymph % (Auto) Franklin % (Auto) Eos % (Auto) Baso % (Auto) Neut # (Auto) Lymph # (Auto) Franklin # (Auto) Eos # (Auto) Baso # (Auto) Immature Gran # (Auto) Absolute Nucleated RBC Immature Gran % Nucleated RBC % PT INR APTT Puncture Site Cancelled ABG pH Cancelled ABG pCO2 Cancelled ABG pO2 Cancelled ABG HCO3 Cancelled ABG O2 Saturation Cancelled ABG Base Excess Cancelled VBG pH VBG pCO2 VBG pO2 VBG O2 Sat (Slime) VBG Base Excess Oxygen Liter Flow Cancelled FiO2 Cancelled Sodium Potassium Chloride Carbon Dioxide Anion Gap BUN Creatinine Estim Creat Clear Calc eGFR BUN/Creatinine Ratio Glucose Calculated Osmolality Lactic Acid 2.3 H Calcium Corrected Calcium Total Bilirubin AST ALT Alkaline Phosphatase Total Creatine Kinase 5964 H D Troponin I 2.032 H* D 20.920 H* D Total Protein Albumin Globulin Albumin/Globulin Ratio Random Vancomycin 03/27/25 03/27/25 03/27/25 18:43 18:48 19:07 WBC 15.0 H RBC 4.67 Hgb 13.6 Hct 43.5 MCV 93 MCH 29.1 MCHC 31.3 RDW Std Deviation 52.4 H Plt Count 212 D Neut % (Auto) 77 Lymph % (Auto) 10 Franklin % (Auto) 8 Eos % (Auto) 0 Baso % (Auto) 1 Neut # (Auto) 11.6 H Lymph # (Auto) 1.6 Franklin # (Auto) 1.2 H Eos # (Auto) 0.0 Baso # (Auto) 0.1 Immature Gran # (Auto) 0.46 H Absolute Nucleated RBC 0.21 H Immature Gran % 3 H Nucleated RBC % 1 H PT 13.3 H INR 1.2 APTT 28.2 Puncture Site Arterial Line ABG pH 7.36 ABG pCO2 41 ABG pO2 79 L D ABG HCO3 23 ABG O2 Saturation 97 ABG Base Excess -2 VBG pH 7.31 L VBG pCO2 48 VBG pO2 52 VBG O2 Sat (Slime) 86 L VBG Base Excess -2 Oxygen Liter Flow FiO2 80 Sodium 138 Potassium 3.8 D Chloride 104 Carbon Dioxide 22.2 Anion Gap 12 BUN 20 Creatinine 2.4 H D Estim Creat Clear Calc 26.6 L eGFR 23 L BUN/Creatinine Ratio 8 L Glucose 226 H D Calculated Osmolality 285 Lactic Acid 2.1 H Calcium 8.0 L Corrected Calcium 8.7 Total Bilirubin 0.7 AST 179 H ALT 114 H Alkaline Phosphatase 93 D Total Creatine Kinase Troponin I Total Protein 5.3 L Albumin 3.1 L Globulin 2.2 L Albumin/Globulin Ratio 1.4 Random Vancomycin 03/27/25 03/28/25 03/28/25 20:50 04:06 05:15 WBC 15.7 H RBC 4.63 Hgb 13.6 Hct 43.1 MCV 93 MCH 29.4 MCHC 31.6 RDW Std Deviation 52.7 H Plt Count 198 Neut % (Auto) 81 H Lymph % (Auto) 11 Franklin % (Auto) 6 Eos % (Auto) 1 Baso % (Auto) 0 Neut # (Auto) 12.6 H Lymph # (Auto) 1.6 Franklin # (Auto) 1.0 H Eos # (Auto) 0.1 Baso # (Auto) 0.0 Immature Gran # (Auto) 0.33 H Absolute Nucleated RBC 0.12 H Immature Gran % 2 H Nucleated RBC % 1 H PT INR APTT Puncture Site Arterial Line ABG pH 7.38 ABG pCO2 45 ABG pO2 73 L ABG HCO3 27 H ABG O2 Saturation 96 ABG Base Excess 1 VBG pH VBG pCO2 VBG pO2 VBG O2 Sat (Slime) VBG Base Excess Oxygen Liter Flow FiO2 21 Sodium 138 Potassium 3.8 Chloride 101 Carbon Dioxide 25.4 Anion Gap 12 BUN 15 Creatinine 1.6 H D Estim Creat Clear Calc 40.0 L eGFR 37 L BUN/Creatinine Ratio 9 L Glucose 170 H D Calculated Osmolality 280 Lactic Acid 1.8 Calcium 8.6 Corrected Calcium 9.4 Total Bilirubin 0.8 AST 148 H ALT 104 H Alkaline Phosphatase 107 Total Creatine Kinase 3666 H D Troponin I 14.934 H* D 8.789 H* D Total Protein 5.4 L Albumin 3.0 L Globulin 2.4 Albumin/Globulin Ratio 1.3 Random Vancomycin 7.7 ABG Interpretation ABG results: 03/26/25 03/26/25 03/26/25 11:18 11:44 16:23 ABG pH 7.27 L Cancelled ABG pCO2 40 Cancelled ABG pO2 146 H Cancelled ABG HCO3 18 L Cancelled ABG O2 Saturation 100 H Cancelled ABG Base Excess -8 L Cancelled VBG pH 7.19 L VBG pCO2 48 VBG pO2 37 VBG Base Excess -10 L 03/26/25 03/27/25 03/27/25 18:43 00:17 03:42 ABG pH 7.16 L* D 7.24 L Cancelled ABG pCO2 58 H D 44 D Cancelled ABG pO2 68 L D 80 L Cancelled ABG HCO3 21 19 L Cancelled ABG O2 Saturation 90 L 96 Cancelled ABG Base Excess -9 L -8 L Cancelled VBG pH VBG pCO2 VBG pO2 VBG Base Excess 03/27/25 03/27/25 03/27/25 04:04 07:55 18:48 ABG pH 7.26 L 7.30 L ABG pCO2 43 37 ABG pO2 83 174 H D ABG HCO3 19 L 18 L ABG O2 Saturation 97 101 H ABG Base Excess -7 L -8 L VBG pH 7.21 L 7.31 L VBG pCO2 49 48 VBG pO2 54 52 VBG Base Excess -8 L -2 03/27/25 03/28/25 19:07 04:06 ABG pH 7.36 7.38 ABG pCO2 41 45 ABG pO2 79 L D 73 L ABG HCO3 23 27 H ABG O2 Saturation 97 96 ABG Base Excess -2 1 VBG pH VBG pCO2 VBG pO2 VBG Base Excess Quality Measures Quality Measures none Assessment & Plan Assessment Current Active Medications: Generic Name Dose Route Start Last Admin Trade Name Freq PRN Reason Stop Dose Admin Acetaminophen 650 mg 03/26/25 18:58 Acetaminophen 325 Mg Tablet PO 04/25/25 18:57 Q4HR PRN Pain Scale 1-3 fever >100.4 Albuterol/Ipratropium 3 ml 03/27/25 01:00 03/28/25 06:29 Albuterol/Ipratropium (Duoneb) Rt Jennifer 3 Ml Nebu INH 04/26/25 00:59 3 ml Q6HRRT CRIS Administration Aspirin 81 mg 03/28/25 10:00 03/28/25 09:59 Aspirin 81 Mg Chew NG 04/27/25 09:59 81 mg QDAY CRIS Administration Atorvastatin Calcium 80 mg 03/26/25 21:00 03/27/25 21:28 Atorvastatin Calcium 20 Mg Tablet PO 04/25/25 20:59 80 mg HS CRIS Administration Dextrose 25 ml 03/26/25 20:20 Dextrose 50%-Water Inj 50 Ml Syringe IV 04/25/25 20:19 Q15MIN PRN BG 50-70 responsive npo pt Dextrose 50 ml 03/26/25 20:20 Dextrose 50%-Water Inj 50 Ml Syringe IV 04/25/25 20:19 Q15MIN PRN BG <50 OR BG <70 & pt unresponsive Glucagon 1 mg 03/26/25 20:20 Glucagon Inj 1 Mg Vial IM Q15MIN PRN BG <70, and no IV access Heparin Sodium (Porcine) 5,000 unit 03/27/25 14:00 03/28/25 05:27 Heparin Sod Inj 5000 Unit/Ml Vial SC 04/10/25 13:59 5,000 unit Q8HR CRIS Administration Norepinephrine/Dextrose 8 mg in 250 mls @ 8.292 mls/hr 03/26/25 19:50 03/28/25 10:30 Levophed In D5w 8mg/250ml IV 04/25/25 19:49 0.12 mcg/kg/min .Q24H PRN 19.901 mls/hr PER PROTOCOL Titration Protocol 0.05 MCG/KG/MIN Dexmedetomidine/Sodium Chloride 400 mcg in 100 mls @ 4.423 mls/hr 03/26/25 23:53 03/28/25 10:00 Precedex Ivpb IV 04/25/25 14:17 0.2 mcg/kg/hr .[id number] PRN 4.423 mls/hr Per PROTOCOL Titration Protocol 0.2 MCG/KG/HR Fentanyl Citrate 2,500 mcg in 250 mls @ 2.5 mls/hr 03/26/25 23:53 03/28/25 10:00 Sublimaze Inj 2,500 Mcg/250 Ml Bag IV 03/31/25 23:52 150 mcg/hr .Q24H PRN 15 mls/hr PER PROTOCOL Titration Protocol 25 MCG/HR Piperacillin/Tazobactam/Dextrose 3.375 gm in 50 mls @ 12.5 mls/hr 03/27/25 14:00 03/28/25 05:27 Zosyn IV 04/03/25 13:59 12.5 mls/hr Q8HR CRIS Administration Vasopressin/Sodium Chloride 20 unit in 100 mls @ 9 mls/hr 03/27/25 07:14 03/27/25 08:23 Vasostrict/Ns Ivpb IV 04/26/25 07:13 0 unit/min .Q11H7M PRN 0 mls/hr PER PROTOCOL Titration Protocol 0.03 UNIT/MIN Epinephrine/Sodium Chloride 16 mg in 250 mls @ 4.373 mls/hr 03/27/25 07:42 03/27/25 08:22 Adrenalin/Ns 16 Mg Ivpb IV 04/26/25 07:41 0 mcg/kg/min .Q24H PRN 0 mls/hr Per Protocol Titration Protocol 0.05 MCG/KG/MIN Dobutamine HCl/Dextrose 500 mg in 250 mls @ 2.799 mls/hr 03/27/25 08:10 03/28/25 09:43 Dobutrex/D5w Ivpb IV 04/26/25 08:09 Not Given .Q24H CRIS 1 MCG/KG/MIN Esmolol HCl 2,000 mg in 100 mls @ 13.995 mls/hr 03/27/25 08:32 Esmolol In Ns 2000 Mg Ivpb IV 04/26/25 08:23 .Q7H9M PRN PER PROTOCOL Protocol 50 MCG/KG/MIN Propofol 1,000 mg in 100 mls @ 2.799 mls/hr 03/27/25 17:34 03/28/25 10:00 Diprivan Ivpb IV 04/26/25 17:33 20 mcg/kg/min .Q24H PRN 11.196 mls/hr PER PROTOCOL Titration Protocol 5 MCG/KG/MIN Insulin Degludec 12 unit 03/27/25 21:00 03/27/25 21:28 Insulin Degludec 5 Unit/0.05 Ml (Per 5 Units) SC 04/26/25 20:59 12 unit HS CRIS Administration Insulin Human Lispro 0 unit 03/27/25 06:33 03/28/25 05:25 Insulin Lispro (Admelog) 1 Unit/0.01 Ml Unit SC 04/25/25 20:29 Not Given Q6HR CRIS Protocol Pantoprazole Sodium 40 mg 03/26/25 19:15 03/28/25 09:50 Pantoprazole Inj 40 Mg Vial IVP 04/25/25 19:14 40 mg QDAY CRIS Administration Pharmacy Consult 1 each 03/26/25 19:15 03/28/25 09:59 Vancomycin Pharmacy To Dose 1 Each Each IV 04/25/25 19:14 Not Given QDAY CRIS Plan Vashti Ross is a 59-year-old F with a PMH of diabetes, hypertension, asthma, substance use disorder (including opiates, probable methamphetamine, and marijuana) on methadone previously, and a chronic right leg wound brought in by ambulance from her home for altered mental status. Patient was intubated due to low GCS and was admitted to the ICU. Today, she remains without urinary output and has required CRRT. Her echocardiogram came back showing decreased ejection fraction of 40 to 45% along with vegetations of the tricuspid valve. From nephrology's standpoint, patient will be receiving hemodialysis today. #KINJAL vs. KINJAL on CKD vs. CKD Stage IV #likely 2/2 multifactorial etiologies including intravascular depletion, diabetic nephropathy, blood pressure derangements, glomerular diseases, sepsis- induced ATN, rhabdomyolysis, cardiorenal syndrome, crystalline nephropathy associated with oxalate, or atheroembolic disease #Rhabdomyolysis Admission creatinine 2.8 (baseline: unknown), eGFR 19 Other notable labs include: blood glucose 550, total CK 9752, troponin 0.427, UDS(+) for amphetamines/methamphetamines Diagnostic Inquiry -No current recommendation Treatment Plan -Urgent hemodialysis today -Monitor renal panel -Avoid nephrotoxic agents (aminoglycosides, NSAIDs, radiographic contrast) -Adjust medication dosing based on patient's impaired renal function -Hold any KRISSY/ARB/diuretics #Other medical problems #CVA #Acute encephalopathy #NSTEMI, Type 1 vs Type 2 #??CHF #Acute hypoxic respiratory failure #Respiratory acidosis #Community-acquired pneumonia #Transaminitis + hyperbilirubinemia #HAGMA #Hx of T2DM #Leukocytosis #Severe sepsis Treatment Plan -Continue management per primary care team (ICU) Health Maintenance: Diet: N.p.o. GI prophylaxis: Protonix DVT prophylaxis: Heparin subcut 5000 units every 12 hours Antibiotics: Vancomycin and Zosyn CODE STATUS: Full Disposition: ICU I have examined the patient and conferred with my attending, Dr. Zelaya, regarding them. James Collins, PGY-1 Internal Medicine Attending Provider Attestation/Addendum Patient seen and examined with resident physician Dr. Collins. Note reviewed, agree with findings and recommendations. Patient currently seen in ICU. On the ventilator. Currently on pressors. Significant edema noted. Decided to proceed with CRRT due to hemodynamic instability. Etiology remains multifactorial. at bedside. CRRT 16 hours- Tablo Blood flow 150-200 Dialysate flow 100 mL Saline flush 50 to 100 mL/h 2K 3.5 calcium Ultrafiltration 1 to 2 L 40 bicarbonate Citrasate Due to high TMP-added heparin 100- 200 units/h Renal panel every 6 hours while on CRRT Plan of care discussed with the ICU nurse. Please see dialysis flowsheet for further details. Spoke to ICU team, Dr. Grady. Critical care time spent more than 45 minutes regarding plan of care and disease management. Thank you Luann for allowing me to participate in the care of Ms. Kingston 4 pm-spoke to ICU team apparently patient has high TMP- and clotted off the dialyzer. Will resume with heparin 200 units/h with the same above orders. Have been talking to ICU nurses and guiding them.
--- NOTE | 2025-03-28 12:44 | PD.INTPROG ---
Documentation for date of: 03/28/25 Subjective Subjective Interval history: This is a 59-year-old female who presented to the ER on 26 March. She was brought to the ER for altered mentation. She was found unresponsive lying on the bathroom floor. Her last known well time was 1030 night prior. Upon arrival to the ER she was found to be altered slightly combative. However her mental status declined and she was ultimately intubated for airway protection with a GCS less than 8. She was also noted to have rhabdomyolysis and acute kidney injury. MRI revealed multiple embolic infarcts bilaterally throughout all hemispheres. She was initially hypotensive and given IV fluids for resuscitation however she remained hypotensive requiring vasopressor support. Cultures were obtained. Urine culture was positive for E. coli. 1 out of 2 blood culture on arrival was positive for GPC's current speciation still pending. She is on broad-spectrum antibiotic coverage. She has had no urinary output and has required CRRT. 03/28-her echocardiogram came back overnight which shows a decreased EF of 40 to 45% along with vegetations on tricuspid valve. She remains afebrile with a Tmax of 100.2 yesterday afternoon. She has had minimal urinary output. She does wake up and become restless and agitated when sedation is lightened. Critical Care Note Critical care time (min.): 53 Exam Vital Signs Temp Pulse Resp BP Pulse Ox O2 Del Method O2 Flow Rate 97.9 F 66 32 H 114/70 93 L Mechanical Ventilation 15 03/28/25 08:00 03/28/25 12:30 03/28/25 06:38 03/28/25 12:30 03/28/25 11:43 03/28/25 11:43 03/26/25 10:59 FiO2 80 03/28/25 11:43 Narrative Exam General-no acute distress, intubated, sedated, critically ill, obese HEENT-normocephalic, atraumatic, sclera anicteric, oral mucosa is hydrated, ET tube and OG tube in place Chest-lung avalos are diminished, no wheezes auscultated, heart rate regular and rhythmic, no increased work of breathing Abdomen-obese, soft, nontender, bowel sounds present, no rebound or guarding Extremities-edema, ischemia of left foot 1st and 2nd digits, the area of ischemia has been demarcated and does not appear to be increasing, bilateral feet are cool to touch however left greater than right, pulses are not palpable however are dopplerable on both feet. 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 Labs 03/28/25 05:15 03/28/25 05:15 Labs: Laboratory Results - last 24 hr 03/27/25 03/27/25 03/27/25 03:42 15:09 18:43 WBC RBC Hgb Hct MCV MCH MCHC RDW Std Deviation Plt Count Neut % (Auto) Lymph % (Auto) [place] % (Auto) Eos % (Auto) Baso % (Auto) Neut # (Auto) Lymph # (Auto) [place] # (Auto) Eos # (Auto) Baso # (Auto) Immature Gran # (Auto) Absolute Nucleated RBC Immature Gran % Nucleated RBC % PT 13.3 H INR 1.2 APTT 28.2 Puncture Site Cancelled ABG pH Cancelled ABG pCO2 Cancelled ABG pO2 Cancelled ABG HCO3 Cancelled ABG O2 Saturation Cancelled ABG Base Excess Cancelled VBG pH VBG pCO2 VBG pO2 VBG O2 Sat (Slime) VBG Base Excess Oxygen Liter Flow Cancelled FiO2 Cancelled Sodium 138 Potassium 3.8 D Chloride 104 Carbon Dioxide 22.2 Anion Gap 12 BUN 20 Creatinine 2.4 H D Estim Creat Clear Calc 26.6 L eGFR 23 L BUN/Creatinine Ratio 8 L Glucose 226 H D Calculated Osmolality 285 Lactic Acid 2.3 H Calcium 8.0 L Corrected Calcium 8.7 Total Bilirubin 0.7 AST 179 H ALT 114 H Alkaline Phosphatase 93 D Total Creatine Kinase 5964 H D Troponin I 20.920 H* D Total Protein 5.3 L Albumin 3.1 L Globulin 2.2 L Albumin/Globulin Ratio 1.4 Random Vancomycin 03/27/25 03/27/25 03/27/25 18:48 19:07 20:50 WBC 15.0 H RBC 4.67 Hgb 13.6 Hct 43.5 MCV 93 MCH 29.1 MCHC 31.3 RDW Std Deviation 52.4 H Plt Count 212 D Neut % (Auto) 77 Lymph % (Auto) 10 [place] % (Auto) 8 Eos % (Auto) 0 Baso % (Auto) 1 Neut # (Auto) 11.6 H Lymph # (Auto) 1.6 [place] # (Auto) 1.2 H Eos # (Auto) 0.0 Baso # (Auto) 0.1 Immature Gran # (Auto) 0.46 H Absolute Nucleated RBC 0.21 H Immature Gran % 3 H Nucleated RBC % 1 H PT INR APTT Puncture Site Arterial Line ABG pH 7.36 ABG pCO2 41 ABG pO2 79 L D ABG HCO3 23 ABG O2 Saturation 97 ABG Base Excess -2 VBG pH 7.31 L VBG pCO2 48 VBG pO2 52 VBG O2 Sat (Slime) 86 L VBG Base Excess -2 Oxygen Liter Flow FiO2 80 Sodium Potassium Chloride Carbon Dioxide Anion Gap BUN Creatinine Estim Creat Clear Calc eGFR BUN/Creatinine Ratio Glucose Calculated Osmolality Lactic Acid 2.1 H 1.8 Calcium Corrected Calcium Total Bilirubin AST ALT Alkaline Phosphatase Total Creatine Kinase Troponin I 14.934 H* D Total Protein Albumin Globulin Albumin/Globulin Ratio Random Vancomycin 03/28/25 03/28/25 04:06 05:15 WBC 15.7 H RBC 4.63 Hgb 13.6 Hct 43.1 MCV 93 MCH 29.4 MCHC 31.6 RDW Std Deviation 52.7 H Plt Count 198 Neut % (Auto) 81 H Lymph % (Auto) 11 [place] % (Auto) 6 Eos % (Auto) 1 Baso % (Auto) 0 Neut # (Auto) 12.6 H Lymph # (Auto) 1.6 [place] # (Auto) 1.0 H Eos # (Auto) 0.1 Baso # (Auto) 0.0 Immature Gran # (Auto) 0.33 H Absolute Nucleated RBC 0.12 H Immature Gran % 2 H Nucleated RBC % 1 H PT INR APTT Puncture Site Arterial Line ABG pH 7.38 ABG pCO2 45 ABG pO2 73 L ABG HCO3 27 H ABG O2 Saturation 96 ABG Base Excess 1 VBG pH VBG pCO2 VBG pO2 VBG O2 Sat (Slime) VBG Base Excess Oxygen Liter Flow FiO2 21 Sodium 138 Potassium 3.8 Chloride 101 Carbon Dioxide 25.4 Anion Gap 12 BUN 15 Creatinine 1.6 H D Estim Creat Clear Calc 40.0 L eGFR 37 L BUN/Creatinine Ratio 9 L Glucose 170 H D Calculated Osmolality 280 Lactic Acid Calcium 8.6 Corrected Calcium 9.4 Total Bilirubin 0.8 AST 148 H ALT 104 H Alkaline Phosphatase 107 Total Creatine Kinase 3666 H D Troponin I 8.789 H* D Total Protein 5.4 L Albumin 3.0 L Globulin 2.4 Albumin/Globulin Ratio 1.3 Random Vancomycin 7.7 Assessment & Plan Additional Assessment Additional Assessment: In summary this is a 59-year-old female admitted to the ICU with septic shock, acute renal failure and 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 Encephalopathy- multifactorial and related to both metabolic issues and mult acute embolic strokes - remains on sedation 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 -Neurology consulted Drug use-utox pos for meth CV Endocarditis-1 culture is positive for GPC's however these have not been identified as of yet -Echocardiogram shows vegetations on the tricuspid valve -Tricuspid valve vegetations do not readily explain the patient's bilateral embolic CVAs -May require SYLVIE to evaluate for any vegetations on the aortic valve Troponinemia-this was in the setting of shock followed by extreme hypertension -Patient had had a systolic blood pressure in the 60s on vasopressors and then systolic blood pressure increased to 300 which rapidly dropped once pressors were held -Patient's troponin of 20 at 3 PM 03/27 likely related to this event now trending down -On aspirin and statin - EKG obtained -Discussed with cardiology Shock-currently on Levophed and vasopressin -Hemodynamic numbers obtained and suggestive of distributive picture -Bedside echo was performed which showed a bit of a decrease in the patient's contractility -Formal echocardiogram obtained which showed a EF of 40 to 45% along with a tricuspid vegetation -Patient is not fluid responsive Ischemic left toe-this has been delineated and does not appear to be increasing -May be secondary to vasopressors versus embolic shower to the foot - arterial doppler did not show occlusion or severe PAD Resp Acute respiratory failure-patient is intubated on mechanical ventilation - She is currently requiring high FiO2 and PEEP though her chest x-ray does not appear that bad - Question any underlying PE - CO2 on ABG is 45 and her end-tidal CO2 is 20 - Patient has significant space - Will send for CT angio Renal Acute renal failure-in the setting of sepsis, shock and rhabdomyolysis -Likely secondary to rhabdo with a component of sepsis -Given her embolic CVAs cannot rule out embolic event to the kidneys as well Rhabdomyolysis-originally given IV fluids however patient developed renal failure - CK levels have trended down - Improved with dialysis GI GI prophylaxis-currently on a PPI Hepatitis C-this is a new diagnosis and will need follow-up as an outpatient Transaminitis-patient's LFTs were elevated upon arrival - This is in the setting of shock and therefore may be related to an ischemic hepatitis - Patient does also have positive hepatitis C therefore the elevated LFTs may also be due to active hep C - Currently improving Nutrition-to be started on tube feeds today Endo Diabetes-poorly controlled, she has been started on long-acting along with a sliding scale - Adjust as needed Heme Leukocytosis-likely secondary to underlying infection DVT prophylaxis-heparin 5000 units every 8 ID Sepsis-currently on vancomycin and Zosyn. Initial blood cultures 1 out of 2 bottles was positive for GPC however further edification are still pending. Her MRSA swab is positive UTI-her urine culture grew out E. coli which is pansensitive Case discussed with ICU team and nephrology Labs, imaging and records reviewed Discussed with family at bedside Approximately 53 critical care minutes required for evaluation, exam, review, intervention, discussion formation plan of care for this critically ill patient with shock and respiratory failure at high risk for further ongoing decompensation Provider Notation Provider Notation: Although this document has been carefully reviewed, there may still be some phonetic and other typographical errors. These errors are purely grammatical due to imperfections in the software program and should not be construed in any way to compromise the substance of the patient's medical care during this visit. Thank you for the opportunity and privilege in assisting you with this patient's care and management.
--- NOTE | 2025-03-28 13:04 | XR_ITS ---
Examination: CTA chest with intravenous contrast 2-D reconstructions 3-D reconstructions, vascular Date and time of exam: March 28, 2000 2514 hours INDICATIONS: Hypoxemia hypoxemic respiratory failure CTDI: vol (mGy) today DLP: (mGycm) 630 Technique: Multiple axial sections of the thorax have been obtained. 3 mm slice thickness, from below the hemidiaphragms to above the apices of the lungs. Mediastinal and lung density settings have been obtained. 2-D sagittal and coronal reconstructions. 3-D angiographic renderings, 3-D volume renderings, 3D post processing, vascular maximum intensity projections obtained. Contrast administered is 100 cc Isovue-370 intravenous. Low dose protocols were performed. One or more of the following dose reduction techniques were used; automated exposure control, adjustment of the mA and/or KV according to patient size, use of iterative reconstruction technique. Findings: No thoracic aortic aneurysmal dilatation or dissection Positive for multiple right lower pulmonary artery filling defects Positive for left upper lobe pulmonary artery filling defects No emboli in the main pulmonary artery segments Pneumonia versus infarction in both lower lung zones The liver is irregular in contour Orogastric tube in satisfactory position Endotracheal tube 4 cm above [place] IMPRESSION: Positive for multiple right lower lobe pulmonary artery and left upper lobe pulmonary artery emboli Infarction versus pneumonia at the lung bases
[2025-03-28] MEDS: PROPOFOL 1,000 MG IVPB 1,000 MG/100 ML VIAL 13.995 MG IV ×2 (13:10→22:13)
[2025-03-28] MEDS: DEXMEDETOMIDINE 400 MCG IVPB 400 MCG/100 ML BAG 8.845 MCG IV (13:11)
[2025-03-28 13:45] LABS: Base Excess 2 (-3-3); HCO3 27 mEq/L (20-26); Inspired Oxygen, FIO2 80 %; O2 Saturation 99 % (91-98); PCO2 44 mmHg (32.0-48.0); PO2 105 mmHg (83-108); pH, Arterial 7.41 (7.35-7.45)
[2025-03-28 13:46] LABS: Allen Test Not Performed; Puncture Site Arterial Line
[2025-03-28] MEDS: HEPARIN SOD INJ 1000 UNIT/ML VIAL 10 ML 2600 UNIT INDWELLCAT ×2 (14:50→19:33)
[2025-03-28] MEDS: Norepinephrine/D5W 8mg/250ml 8 MG/250 ML BAG 23.218 MG IV (16:00)
[2025-03-28 16:45] LABS: Albumin, Serum 2.5 gm/dL (3.5-5.0); Anion Gap 12 (7-16); BUN/Creatinine Ratio 8 Ratio (12-20); Blood Urea Nitrogen 8 mg/dL (9-23); Calcium 7.1 mg/dL (8.3-10.6); Calcium (Corrected) 8.3 mg/dL (8.5-10.1); Carbon Dioxide 22.4 mMol/L (20.0-31.0); Chloride 106 mMol/L (98-107); Creatinine (Component) 1.0 mg/dL (0.6-1.3); Estimated Creatinine Clearance 64.2 mL/min (>60); Glucose 131 mg/dL (74-106); Osmolality,Calculated 279 (275-295); Phosphorous 2.1 mg/dL (2.4-5.1); Potassium 3.2 mMol/L (3.4-5.1); Sodium 140 mMol/L (136-145); eGFR > 60 See Note
[2025-03-28 16:58] LABS: Syphilis Nonreactive (Nonreactive)
--- NOTE | 2025-03-28 17:07 | PC.NURSE ---
Addendum entered by Julia Wagoner RN 03/28/25 20:14: at approx 1625- pt's blood pressure dropped to 47/33 HR in 40's, emergency titration entered and sedation held momentarily, Dr. Dotty Nayak and Dr. Mcginnis at bedside. at approx 1720 pt become agitated emergency titration order entered, Dr. Mcdowell at beside. Original Note: at 1409, tablo alerted high venous pressure, unable to clear, unable to return blood, wasted cartridge and lines with blood. at [address] Zelaya and Dr. Grady made aware, new labs ordered
[2025-03-28 17:19] LABS: Basophils # (Auto) 0.0 Thou/mm3 (0.0-0.2); Basophils % (Auto) 0 % (0-2.5); Eosinophils # (Auto) 0.1 Thou/mm3 (0.0-0.5); Eosinophils % (Auto) 1 % (0-10); Hematocrit 34.6 % (36.0-46.0); Hemoglobin 10.9 g/dL (12.0-16.0); Immature Granulocytes Auto 0.86 Thou/mm3 (0.00-0.00); Lymphocytes # (Auto) 1.0 Thou/mm3 (1.0-4.8); Lymphocytes % (Auto) 7 % (10-50); Mean Corpuscular HGB Conc 31.5 g/dl (31.0-37.0); Mean Corpuscular Hemoglobin 29.4 pg (25.0-35.0); Mean Corpuscular Volume 93 fL (80-100); Monocytes # (Auto) 0.8 Thou/mm3 (0.0-0.8); Monocytes % (Auto) 5 % (0-12); Neutrophils # (Auto) 12.4 Thou/mm3 (1.8-7.7); Neutrophils % (Auto) 82 % (37-80); Nucleated Red Blood Cell # 0.19 Thou/mm3 (0.00-0.00); Nucleated Red Blood Cell % 1 /100 WBC (0); Platelet Count 145 Thou/mm3 (140-440); RDW Standard Deviation 52.5 fL (36.4-46.3); Red Blood Count 3.71 Miln/mm3 (4.00-5.20); White Blood Count 15.2 Thou/mm3 (3.6-11.0)
[2025-03-28] MEDS: POT PHOS 15 mMol in NS 250 ML 15 MMOL/250 ML BAG 62.5 MMOL IV ×2 (17:45→21:28)
[2025-03-28 19:11] LABS: Lactate (Lactic Acid) 1.8 mMol/L (0.4-2.0)
[2025-03-28 19:32] LABS: Albumin, Serum 2.6 gm/dL (3.5-5.0); Anion Gap 12 (7-16); BUN/Creatinine Ratio 10 Ratio (12-20); Blood Urea Nitrogen 8 mg/dL (9-23); Calcium 7.8 mg/dL (8.3-10.6); Calcium (Corrected) 8.9 mg/dL (8.5-10.1); Carbon Dioxide 23.6 mMol/L (20.0-31.0); Chloride 103 mMol/L (98-107); Creatinine (Component) 0.8 mg/dL (0.6-1.3); Estimated Creatinine Clearance 80.3 mL/min (>60); Glucose 129 mg/dL (74-106); Osmolality,Calculated 277 (275-295); Phosphorous 2.4 mg/dL (2.4-5.1); Potassium 3.5 mMol/L (3.4-5.1); Sodium 139 mMol/L (136-145); eGFR > 60 See Note
[2025-03-28] MEDS: DEXMEDETOMIDINE 400 MCG IVPB 400 MCG/100 ML BAG 30.958 MCG IV (19:42)
--- NOTE | 2025-03-28 20:42 | ESPR_ITS ---
<Statement entered by Michael Nayak MD - 03/29/25 19:21> I personally examined this patient evaluated reviewed a cardiac echo that showed evidence of tricuspid valve vegetation does not explain the left-sided systemic embolization patient may have pulmonary evaluation with septic emboli. Clinically patient is very unstable having a lot of fluctuation hypertension and hypotension requiring multiple vasopressors quite sensitive. Cardiac echo showed evidence of mild LV dysfunction ejection fraction 45% with apical hypokinesis and definite evidence of tricuspid valve vegetation but nothing on the left side. Yamilet alanmendy SYLVIE for confirmation of left-sided findings to explain embolization and systemic emboli. Prognosis poor condition critical. Documentation for date of: 03/28/25 Subjective Subjective Interval history: No acute overnight events. Continued with sedation and mechanical ventilation. Continued on pressure support for low MAP appears to be fluctuating, sensitive to VASOPRESSIN, as expected and septic shock. Exam Vital Signs Temp Pulse Resp BP Pulse Ox O2 Del Method O2 Flow Rate 98.4 F 64 28 H 120/61 92 L Mechanical Ventilation 15 03/28/25 19:45 03/28/25 19:45 03/28/25 19:45 03/28/25 19:45 03/28/25 19:45 03/28/25 16:16 03/26/25 10:59 FiO2 70 03/28/25 18:23 Narrative Exam General: Sedated and mechanically ventilated. obese. HEENT: Normocephalic, atraumatic, mucous membranes moist. Heart: Regular rate and rhythm, no murmurs. Lungs: Clear to auscultation with no wheezing or crackles. Abdomen: Soft, nondistended, nontender, positive bowel sounds. ?No guarding or rebound tenderness. Neurologic: Sedated and mechanically ventilated.Bilateral pupils are equal and reacting to light. Extremities: Noted bilateral pitting edema edema extending up to the knees, noted surgical scar on the left knee likely from TKR. Noted chronic wound of 5 x 6 cm in the right lower extremity. Noted tissue pressure injuries on the upper lateral right and left thigh. Also noted infected area in the right toe. Peripheral pulses are feeble Skin: No rash or ecchymoses. Objective Labs 03/28/25 15:25 03/28/25 18:41 Labs: Laboratory Results - last 24 hr 03/27/25 03/28/25 03/28/25 20:50 04:06 05:15 WBC 15.7 H RBC 4.63 Hgb 13.6 Hct 43.1 MCV 93 MCH 29.4 MCHC 31.6 RDW Std Deviation 52.7 H Plt Count 198 Neut % (Auto) 81 H Lymph % (Auto) 11 [place] % (Auto) 6 Eos % (Auto) 1 Baso % (Auto) 0 Neut # (Auto) 12.6 H Lymph # (Auto) 1.6 [place] # (Auto) 1.0 H Eos # (Auto) 0.1 Baso # (Auto) 0.0 Immature Gran # (Auto) 0.33 H Absolute Nucleated RBC 0.12 H Immature Gran % 2 H Nucleated RBC % 1 H Puncture Site Arterial Line ABG pH 7.38 ABG pCO2 45 ABG pO2 73 L ABG HCO3 27 H ABG O2 Saturation 96 ABG Base Excess 1 FiO2 21 Sodium 138 Potassium 3.8 Chloride 101 Carbon Dioxide 25.4 Anion Gap 12 BUN 15 Creatinine 1.6 H D Estim Creat Clear Calc 40.0 L eGFR 37 L BUN/Creatinine Ratio 9 L Glucose 170 H D Calculated Osmolality 280 Lactic Acid 1.8 Calcium 8.6 Corrected Calcium 9.4 Phosphorus Total Bilirubin 0.8 AST 148 H ALT 104 H Alkaline Phosphatase 107 Total Creatine Kinase 3666 H D Troponin I 14.934 H* D 8.789 H* D Total Protein 5.4 L Albumin 3.0 L Globulin 2.4 Albumin/Globulin Ratio 1.3 Random Vancomycin 7.7 Syphilis Serology 03/28/25 03/28/25 03/28/25 13:37 15:25 18:41 WBC 15.2 H RBC 3.71 L Hgb 10.9 L D Hct 34.6 L MCV 93 MCH 29.4 MCHC 31.5 RDW Std Deviation 52.5 H Plt Count 145 D Neut % (Auto) 82 H Lymph % (Auto) 7 L [place] % (Auto) 5 Eos % (Auto) 1 Baso % (Auto) 0 Neut # (Auto) 12.4 H Lymph # (Auto) 1.0 [place] # (Auto) 0.8 Eos # (Auto) 0.1 Baso # (Auto) 0.0 Immature Gran # (Auto) 0.86 H Absolute Nucleated RBC 0.19 H Immature Gran % 6 H Nucleated RBC % 1 H Puncture Site Arterial Line ABG pH 7.41 ABG pCO2 44 ABG pO2 105 D ABG HCO3 27 H ABG O2 Saturation 99 H ABG Base Excess 2 FiO2 80 Sodium 140 139 Potassium 3.2 L D 3.5 Chloride 106 103 Carbon Dioxide 22.4 23.6 Anion Gap 12 12 BUN 8 L 8 L Creatinine 1.0 D 0.8 Estim Creat Clear Calc 64.2 80.3 eGFR > 60 > 60 BUN/Creatinine Ratio 8 L 10 L Glucose 131 H 129 H Calculated Osmolality 279 277 Lactic Acid 1.8 Calcium 7.1 L D 7.8 L Corrected Calcium 8.3 L 8.9 Phosphorus 2.1 L 2.4 Total Bilirubin AST ALT Alkaline Phosphatase Total Creatine Kinase Troponin I Total Protein Albumin 2.5 L D 2.6 L Globulin Albumin/Globulin Ratio Random Vancomycin Syphilis Serology Nonreactive ABG Interpretation ABG results: 03/26/25 03/26/25 03/26/25 11:18 11:44 16:23 ABG pH 7.27 L Cancelled ABG pCO2 40 Cancelled ABG pO2 146 H Cancelled ABG HCO3 18 L Cancelled ABG O2 Saturation 100 H Cancelled ABG Base Excess -8 L Cancelled VBG pH 7.19 L VBG pCO2 48 VBG pO2 37 VBG Base Excess -10 L 03/26/25 03/27/25 03/27/25 18:43 00:17 03:42 ABG pH 7.16 L* D 7.24 L Cancelled ABG pCO2 58 H D 44 D Cancelled ABG pO2 68 L D 80 L Cancelled ABG HCO3 21 19 L Cancelled ABG O2 Saturation 90 L 96 Cancelled ABG Base Excess -9 L -8 L Cancelled VBG pH VBG pCO2 VBG pO2 VBG Base Excess 03/27/25 03/27/25 03/27/25 04:04 07:55 18:48 ABG pH 7.26 L 7.30 L ABG pCO2 43 37 ABG pO2 83 174 H D ABG HCO3 19 L 18 L ABG O2 Saturation 97 101 H ABG Base Excess -7 L -8 L VBG pH 7.21 L 7.31 L VBG pCO2 49 48 VBG pO2 54 52 VBG Base Excess -8 L -2 03/27/25 03/28/25 03/28/25 19:07 04:06 13:37 ABG pH 7.36 7.38 7.41 ABG pCO2 41 45 44 ABG pO2 79 L D 73 L 105 D ABG HCO3 23 27 H 27 H ABG O2 Saturation 97 96 99 H ABG Base Excess -2 1 2 VBG pH VBG pCO2 VBG pO2 VBG Base Excess Quality Measures Quality Measures none Assessment & Plan Assessment Current Active Medications: Generic Name Dose Route Start Last Admin Trade Name Freq PRN Reason Stop Dose Admin Acetaminophen 650 mg 03/26/25 18:58 Acetaminophen 325 Mg Tablet PO 04/25/25 18:57 Q4HR PRN Pain Scale 1-3 fever >100.4 Albuterol/Ipratropium 3 ml 03/27/25 01:00 03/28/25 18:23 Albuterol/Ipratropium (Duoneb) Rt Jennifer 3 Ml Nebu INH 04/26/25 00:59 3 ml Q6HRRT CRIS Administration Aspirin 81 mg 03/28/25 10:00 03/28/25 09:59 Aspirin 81 Mg Chew NG 04/27/25 09:59 81 mg QDAY CRIS Administration Atorvastatin Calcium 80 mg 03/26/25 21:00 03/27/25 21:28 Atorvastatin Calcium 20 Mg Tablet PO 04/25/25 20:59 80 mg HS CRIS Administration Dextrose 25 ml 03/26/25 20:20 Dextrose 50%-Water Inj 50 Ml Syringe IV 04/25/25 20:19 Q15MIN PRN BG 50-70 responsive npo pt Dextrose 50 ml 03/26/25 20:20 Dextrose 50%-Water Inj 50 Ml Syringe IV 04/25/25 20:19 Q15MIN PRN BG <50 OR BG <70 & pt unresponsive Glucagon 1 mg 03/26/25 20:20 Glucagon Inj 1 Mg Vial IM Q15MIN PRN BG <70, and no IV access Heparin Sodium (Porcine) 5,000 unit 03/27/25 14:00 03/28/25 15:36 Heparin Sod Inj 5000 Unit/Ml Vial SC 04/10/25 13:59 5,000 unit Q8HR CRIS Administration Norepinephrine/Dextrose 8 mg in 250 mls @ 8.292 mls/hr 03/26/25 19:50 03/28/25 18:00 Levophed In D5w 8mg/250ml IV 04/25/25 19:49 0.12 mcg/kg/min .Q24H PRN 19.901 mls/hr PER PROTOCOL Titration Protocol 0.05 MCG/KG/MIN Dexmedetomidine/Sodium Chloride 400 mcg in 100 mls @ 4.423 mls/hr 03/26/25 23:53 03/28/25 17:20 Precedex Ivpb IV 04/25/25 14:17 1.4 mcg/kg/hr .[id number] PRN 30.958 mls/hr Per PROTOCOL Titration Protocol 0.2 MCG/KG/HR Fentanyl Citrate 2,500 mcg in 250 mls @ 2.5 mls/hr 03/26/25 23:53 03/28/25 18:00 Sublimaze Inj 2,500 Mcg/250 Ml Bag IV 03/31/25 23:52 250 mcg/hr .Q24H PRN 25 mls/hr PER PROTOCOL Titration Protocol 25 MCG/HR Piperacillin/Tazobactam/Dextrose 3.375 gm in 50 mls @ 12.5 mls/hr 03/27/25 14:00 03/28/25 15:36 Zosyn IV 04/03/25 13:59 12.5 mls/hr Q8HR CRIS Administration Propofol 1,000 mg in 100 mls @ 2.799 mls/hr 03/27/25 17:34 03/28/25 16:00 Diprivan Ivpb IV 04/26/25 17:33 25 mcg/kg/min .Q24H PRN 13.995 mls/hr PER PROTOCOL Titration Protocol 5 MCG/KG/MIN Vasopressin/Sodium Chloride 20 unit in 100 mls @ 9 mls/hr 03/28/25 16:27 Vasostrict/Ns Ivpb IV 04/27/25 16:26 .Q11H7M PRN PER PROTOCOL Protocol 0.03 UNIT/MIN Epinephrine/Sodium Chloride 16 mg in 250 mls @ 4.416 mls/hr 03/28/25 16:28 Adrenalin/Ns 16 Mg Ivpb IV 04/27/25 16:27 .Q24H PRN Per Protocol Protocol 0.05 MCG/KG/MIN Potassium Phosphate 15 mmol in 250 mls @ 62.5 mls/hr 03/28/25 17:34 03/28/25 17:45 Pot Phos 15 Mmol In Ns 250 Ml IV 03/29/25 01:33 62.5 mls/hr Q4H CRIS Administration Insulin Degludec 12 unit 03/27/25 21:00 03/27/25 21:28 Insulin Degludec 5 Unit/0.05 Ml (Per 5 Units) SC 04/26/25 20:59 12 unit HS CRIS Administration Insulin Human Lispro 0 unit 03/27/25 06:33 03/28/25 18:30 Insulin Lispro (Admelog) 1 Unit/0.01 Ml Unit SC 04/25/25 20:29 Not Given Q6HR [facility] Protocol Pantoprazole Sodium 40 mg 03/26/25 19:15 03/28/25 09:50 Pantoprazole Inj 40 Mg Vial IVP 04/25/25 19:14 40 mg QDAY CRIS Administration Pharmacy Consult 1 each 03/26/25 19:15 03/28/25 09:59 Vancomycin Pharmacy To Dose 1 Each Each IV 04/25/25 19:14 Not Given QDAY [facility] Plan This is a 59-year-old female with PMHx of drug use disorder, presented to ED with acute encephalopathy requiring intubation with findings of multi embolic disease involving multiple systems including brain and left distal extremity, acute and failure with the cause likely renal emboli, with findings of vegetations on SYLVIE. Admitted to ICU for ventilator support, pressor support for likely septic shock, and CRRT. 1. Acute encephalopathy, multifactorial, related to metabolic derangement and embolic CVA. 2. Septic shock in settings of endocarditis with bacteremia 3. Heart failure with reduced ejection fraction EF 40-45%. 3. NSTEMI type type I (embolic IL) vs. Type 2 (demand ischemia 2/2 shock) 4. Acute renal failure likely 2/2 septic shock vs. renal emboli vs. rhabdomyolysis IMPRESSION: This is a critically ill patient with multifactorial encephalopathy and acute multifocal embolic strokes, likely secondary to infective endocarditis. Echocardiogram shows a normal-sized LV with mild apical and global hypokinesis, LVEF 40?45%, mildly decreased RV systolic function, and tricuspid valve vegetation. Additional valvular findings include aortic valve sclerosis with mild AR and mitral valve thickening with mild MR. She is in septic shock, requiring vasopressors, and has developed troponinemia related to hemodynamic instability. The patient is intubated for acute hypoxemic respiratory failure with significant space ventilation and concern for PE. She also has acute kidney injury from sepsis and rhabdomyolysis, a newly diagnosed hepatitis C with transaminitis, poorly controlled diabetes, leukocytosis, UTI with pansensitive E. coli, and ischemic changes in the left toe likely due to vasopressor use or embolic phenomena. She has a history of methamphetamine use contributing to overall risk, and her condition is complicated by recurrent ventricular arrhythmias. RECOMMENDATIONS: Prognosis overall is guarded. Management should focus on medical therapy and supportive care, as the patient is not a candidate for surgical or percutaneous intervention given the combination of septic endocarditis, impaired ventricular function, and poor overall prognosis. Anticoagulation is much indicated in this case given the nature of the emboli and septic. Continue with ASPIRIN and high-dose statin, and careful hemodynamic support with vasopressors while avoiding wide BP fluctuations. Treat the endocarditis with appropriate IV antibiotics and will follow-up with SYLVIE to evaluate for left-sided vegetations. Continue with CRRT for renal failure. Case was discussed with attending physician, Dr. Nayak. Wandy Dasilva, PGY II This docu
[2025-03-28] MEDS: ATORVASTATIN CALCIUM 20 MG TABLET 80 MG PO (21:28)
--- NOTE | 2025-03-28 22:07 | ESPR_ITS ---
Documentation for date of: 03/28/25 Subjective Subjective Interval history: Patient was seen in ICU today, continues to remain intubated and on [facility] vent support, receiving sedation and pressors. No changes reported. Exam - Neurology Vital Signs Temp Pulse Resp BP Pulse Ox O2 Del Method O2 Flow Rate 98.4 F 64 28 H 120/61 92 L Mechanical Ventilation 15 03/28/25 19:45 03/28/25 19:45 03/28/25 19:45 03/28/25 19:45 03/28/25 19:45 03/28/25 16:16 03/26/25 10:59 FiO2 70 03/28/25 18:23 Narrative Exam GENERAL APPEARANCE: Well hydrated, well-nourished in no acute distress. HEENT: Normocephalic, atraumatic, extraocular movements intact. Pupils: Equal reacting to light and accommodation NECK: Supple, no JVD or bruits. CARDIOVASULAR: Heart: S1, S2 heard, regular without S3-S4 or murmur no rubs or gallops. LUNGS/CHEST: Clear to auscultation bilaterally. No rails, rhonchi, or wheezing. Normal inspection. ABDOMEN: Soft, nontender, with normal bowel sounds. No pulsatile masses. No rebound, rigidity, or guarding. Normal inspection and palpation. EXTREMITIES: Normal inspection and palpation. No edema, clubbing or cyanosis. SKIN: Warm and dry without rashes. Normal inspection. MUSCULOSKELETAL: No cervical, thoracic, lumbar or midline bony tenderness. Normal inspection. NEURO: Resting under the effect of sedation, exam is limited but no focal neurological deficit noted. No signs of meningeal irritation noted. PSYCHIATRIC: Limited Objective Labs 04/12/25 07:36 04/12/25 07:36 Labs: Laboratory Results - last 24 hr 03/27/25 03/28/25 03/28/25 20:50 04:06 05:15 WBC 15.7 H RBC 4.63 Hgb 13.6 Hct 43.1 MCV 93 MCH 29.4 MCHC 31.6 RDW Std Deviation 52.7 H Plt Count 198 Neut % (Auto) 81 H Lymph % (Auto) 11 [place] % (Auto) 6 Eos % (Auto) 1 Baso % (Auto) 0 Neut # (Auto) 12.6 H Lymph # (Auto) 1.6 [place] # (Auto) 1.0 H Eos # (Auto) 0.1 Baso # (Auto) 0.0 Immature Gran # (Auto) 0.33 H Absolute Nucleated RBC 0.12 H Immature Gran % 2 H Nucleated RBC % 1 H Puncture Site Arterial Line ABG pH 7.38 ABG pCO2 45 ABG pO2 73 L ABG HCO3 27 H ABG O2 Saturation 96 ABG Base Excess 1 FiO2 21 Sodium 138 Potassium 3.8 Chloride 101 Carbon Dioxide 25.4 Anion Gap 12 BUN 15 Creatinine 1.6 H D Estim Creat Clear Calc 40.0 L eGFR 37 L BUN/Creatinine Ratio 9 L Glucose 170 H D Calculated Osmolality 280 Lactic Acid Calcium 8.6 Corrected Calcium 9.4 Phosphorus Total Bilirubin 0.8 AST 148 H ALT 104 H Alkaline Phosphatase 107 Total Creatine Kinase 3666 H D Troponin I 14.934 H* D 8.789 H* D Total Protein 5.4 L Albumin 3.0 L Globulin 2.4 Albumin/Globulin Ratio 1.3 Random Vancomycin 7.7 Syphilis Serology 03/28/25 03/28/25 03/28/25 13:37 15:25 18:41 WBC 15.2 H RBC 3.71 L Hgb 10.9 L D Hct 34.6 L MCV 93 MCH 29.4 MCHC 31.5 RDW Std Deviation 52.5 H Plt Count 145 D Neut % (Auto) 82 H Lymph % (Auto) 7 L [place] % (Auto) 5 Eos % (Auto) 1 Baso % (Auto) 0 Neut # (Auto) 12.4 H Lymph # (Auto) 1.0 [place] # (Auto) 0.8 Eos # (Auto) 0.1 Baso # (Auto) 0.0 Immature Gran # (Auto) 0.86 H Absolute Nucleated RBC 0.19 H Immature Gran % 6 H Nucleated RBC % 1 H Puncture Site Arterial Line ABG pH 7.41 ABG pCO2 44 ABG pO2 105 D ABG HCO3 27 H ABG O2 Saturation 99 H ABG Base Excess 2 FiO2 80 Sodium 140 139 Potassium 3.2 L D 3.5 Chloride 106 103 Carbon Dioxide 22.4 23.6 Anion Gap 12 12 BUN 8 L 8 L Creatinine 1.0 D 0.8 Estim Creat Clear Calc 64.2 80.3 eGFR > 60 > 60 BUN/Creatinine Ratio 8 L 10 L Glucose 131 H 129 H Calculated Osmolality 279 277 Lactic Acid 1.8 Calcium 7.1 L D 7.8 L Corrected Calcium 8.3 L 8.9 Phosphorus 2.1 L 2.4 Total Bilirubin AST ALT Alkaline Phosphatase Total Creatine Kinase Troponin I Total Protein Albumin 2.5 L D 2.6 L Globulin Albumin/Globulin Ratio Random Vancomycin Syphilis Serology Nonreactive ABG Interpretation ABG results: 03/26/25 03/26/25 03/26/25 11:18 11:44 16:23 ABG pH 7.27 L Cancelled ABG pCO2 40 Cancelled ABG pO2 146 H Cancelled ABG HCO3 18 L Cancelled ABG O2 Saturation 100 H Cancelled ABG Base Excess -8 L Cancelled VBG pH 7.19 L VBG pCO2 48 VBG pO2 37 VBG Base Excess -10 L 03/26/25 03/27/25 03/27/25 18:43 00:17 03:42 ABG pH 7.16 L* D 7.24 L Cancelled ABG pCO2 58 H D 44 D Cancelled ABG pO2 68 L D 80 L Cancelled ABG HCO3 21 19 L Cancelled ABG O2 Saturation 90 L 96 Cancelled ABG Base Excess -9 L -8 L Cancelled VBG pH VBG pCO2 VBG pO2 VBG Base Excess 03/27/25 03/27/25 03/27/25 04:04 07:55 18:48 ABG pH 7.26 L 7.30 L ABG pCO2 43 37 ABG pO2 83 174 H D ABG HCO3 19 L 18 L ABG O2 Saturation 97 101 H ABG Base Excess -7 L -8 L VBG pH 7.21 L 7.31 L VBG pCO2 49 48 VBG pO2 54 52 VBG Base Excess -8 L -2 03/27/25 03/28/25 03/28/25 19:07 04:06 13:37 ABG pH 7.36 7.38 7.41 ABG pCO2 41 45 44 ABG pO2 79 L D 73 L 105 D ABG HCO3 23 27 H 27 H ABG O2 Saturation 97 96 99 H ABG Base Excess -2 1 2 VBG pH VBG pCO2 VBG pO2 VBG Base Excess Assessment & Plan Assessment and plan (1) Ischemic cerebrovascular accident (CVA): Status: Acute Assessment and plan: MRI brain: Multiple embolic-type foci of restricted diffusion bilateral occipital lobes, bilateral frontal and bilateral parietal lobes most consistent with acute infarcts Echo: Normal size left bentricle with mild apical and global hypokinesis LVEF 40-45% Evidence of Tricuspid valve vegetation suggestive of endocarditis The RV is normal in size. The right ventricular systolic function is mildly decreased. Aortic valve sclerosis thickened wih mild aortic regurgitation Mitral valve thickening with mild mitral regurgitation. Recommend to hold off on anticoagulation. FU with SYLVIE and repeat CT head in 48 hours when she is stable. (2) Uncontrolled diabetes mellitus: Status: Chronic Assessment and plan: now improving on Insulin per sliding scale. (3) Pneumonia: Status: Acute Assessment and plan: on IV antibiotics Additional Assessment & Plan Additional Plan: (1) Ischemic cerebrovascular accident (CVA): Status: Acute Assessment and plan: With the recent CTs showing findings suspicious for subarachnoid and intracerebral hemorrhage Continue with aspirin 81 mg and statin Follow-up with the hypercoagulopathy workup Her condition is very unfortunate and family is made aware of the situation with the repeat CT head findings of persistent bleed and not being able to go back on antiocoagulant therapy. Will do a repeat CT head without contrast tomorrow. (2) Uncontrolled diabetes mellitus: Status: Chronic Assessment and plan: Continue to check fingerstick glucose and follow sliding scale insulin per protocol (3) Pulmonary embolism: Status: Chronic Assessment and plan: She got the IVC filter placement Anticoagulation is difficult to decide from concurrent intracerebral and subarachnoid hemorrhage on the CT head
[2025-03-28 22:09] LABS: Hematocrit 36.9 % (36.0-46.0); Hemoglobin 11.9 g/dL (12.0-16.0)
[2025-03-28 22:25] LABS: Albumin, Serum 2.8 gm/dL (3.5-5.0); Anion Gap 10 (7-16); BUN/Creatinine Ratio 9 Ratio (12-20); Blood Urea Nitrogen 12 mg/dL (9-23); Calcium 8.3 mg/dL (8.3-10.6); Calcium (Corrected) 9.3 mg/dL (8.5-10.1); Carbon Dioxide 26.7 mMol/L (20.0-31.0); Chloride 99 mMol/L (98-107); Creatinine (Component) 1.3 mg/dL (0.6-1.3); Estimated Creatinine Clearance 49.4 mL/min (>60); Glucose 160 mg/dL (74-106); Osmolality,Calculated 274 (275-295); Phosphorous 4.4 mg/dL (2.4-5.1); Potassium 4.2 mMol/L (3.4-5.1); Sodium 136 mMol/L (136-145); eGFR 48 See Note
[2025-03-29] VITALS (125 sets, daily range): BP systolic 72–190; BP diastolic 40–98; PULSE 44–91; RESP 19–44; TEMP 36.7–37.2; O2SAT 83–100; BMI 37.2
[2025-03-29] MEDS: fentaNYL 2,500 MCG/250 ML BAG 2,500 MCG/250 ML BAG IV (00:01)
[2025-03-29] MEDS: DEXMEDETOMIDINE 400 MCG IVPB 400 MCG/100 ML BAG 30.958 MCG IV ×8 (00:01→23:32)
[2025-03-29] MEDS: ALBUTEROL/IPRATROPIUM (Duoneb) RT SOL 3 ML NEBU INH ×4 (00:34→17:59)
[2025-03-29] MEDS: PROPOFOL 1,000 MG IVPB 1,000 MG/100 ML VIAL 13.995 MG IV (04:19)
--- NOTE | 2025-03-29 05:00 | XR_ITS ---
Examination: AP chest single view Technique one AP portable semiupright chest single view Date and time: March 29, 2025 0548 hours, comparison March 28, 2025 INDICATIONS: Hypoxic respiratory failure postintubation today FINDINGS: Bibasilar significant pneumonia Normal heart size. Endotracheal tube tip 6.9 cm above [place]. Right internal jugular temporary dialysis catheter tip in SVC Moderate vascular congestion IMPRESSION: Significant bibasilar pneumonia
[2025-03-29 05:11] LABS: Base Excess 1 (-3-3); HCO3 27 mEq/L (20-26); Inspired Oxygen, FIO2 21 %; O2 Saturation 98 % (91-98); PCO2 45 mmHg (32.0-48.0); PO2 72 mmHg (83-108); pH, Arterial 7.38 (7.35-7.45)
[2025-03-29 05:15] LABS: Allen Test Performed/OK; Puncture Site Right Femoral
[2025-03-29 05:21] LABS: Basophils # (Auto) 0.0 Thou/mm3 (0.0-0.2); Basophils % (Auto) 0 % (0-2.5); Eosinophils # (Auto) 0.1 Thou/mm3 (0.0-0.5); Eosinophils % (Auto) 0 % (0-10); Hematocrit 34.9 % (36.0-46.0); Hemoglobin 11.1 g/dL (12.0-16.0); Immature Granulocytes Auto 1.09 Thou/mm3 (0.00-0.00); Lymphocytes # (Auto) 1.3 Thou/mm3 (1.0-4.8); Lymphocytes % (Auto) 8 % (10-50); Mean Corpuscular HGB Conc 31.8 g/dl (31.0-37.0); Mean Corpuscular Hemoglobin 29.4 pg (25.0-35.0); Mean Corpuscular Volume 92 fL (80-100); Monocytes # (Auto) 1.2 Thou/mm3 (0.0-0.8); Monocytes % (Auto) 7 % (0-12); Neutrophils # (Auto) 13.2 Thou/mm3 (1.8-7.7); Neutrophils % (Auto) 78 % (37-80); Nucleated Red Blood Cell # 0.05 Thou/mm3 (0.00-0.00); Nucleated Red Blood Cell % 0 /100 WBC (0); Platelet Count 139 Thou/mm3 (140-440); RDW Standard Deviation 51.1 fL (36.4-46.3); Red Blood Count 3.78 Miln/mm3 (4.00-5.20); White Blood Count 16.8 Thou/mm3 (3.6-11.0)
[2025-03-29 05:41] LABS: Alanine Aminotransferase 77 U/L (10-49); Albumin, Serum 2.6 gm/dL (3.5-5.0); Albumin/Globulin Ratio 1.2 (1.2-2.2); Alkaline Phosphatase 126 U/L (46-116); Anion Gap 12 (7-16); Aspartate Amino Transferase 88 U/L (0-34); BUN/Creatinine Ratio 10 Ratio (12-20); Bilirubin,Total 0.7 mg/dL (0.3-1.2); Blood Urea Nitrogen 18 mg/dL (9-23); Calcium 7.9 mg/dL (8.3-10.6); Calcium (Corrected) 9.0 mg/dL (8.5-10.1); Carbon Dioxide 25.3 mMol/L (20.0-31.0); Chloride 99 mMol/L (98-107); Creatinine (Component) 1.8 mg/dL (0.6-1.3); Estimated Creatinine Clearance 35.7 mL/min (>60); Globulin 2.2 gm/dL (2.3-3.5); Glucose 197 mg/dL (74-106); Osmolality,Calculated 278 (275-295); Potassium 4.1 mMol/L (3.4-5.1); Sodium 136 mMol/L (136-145); Total Protein 4.8 gm/dL (5.7-8.2); eGFR 32 See Note
[2025-03-29] MEDS: HEPARIN SOD INJ 5000 UNIT/ML VIAL SC ×3 (06:06→21:41)
[2025-03-29] MEDS: PIPER/TAZO 3.375 GM PREMIX 3.375 GM/50 ML BAG IV ×3 (06:08→21:43)
[2025-03-29] MEDS: ASPIRIN 81 MG CHEW NG (08:01)
--- NOTE | 2025-03-29 10:00 | XR_ITS ---
Examination: Venous duplex lower extremity sonogram, bilateral. Date and time of exam: March 29, 2025 1042 hrs. Indications: Positive for pulmonary artery emboli on CT chest study March 28, 2025 Technique: Multiple sonographic images of the deep venous system have been obtained. B-mode/2-D grayscale imaging of vascular structures and Doppler spectral analysis (waveforms) and color performed Both legs are examined. Findings: Negative for DVT in the right lower extremity Extensive chronic nonocclusive DVT involving the common femoral left superficial femoral, popliteal, peroneal, posterior tibial and greater saphenous veins Tubular structures in the right popliteal fossa 6.0 cm in left popliteal fossa 4.6 cm which may represent popliteal cysts Impression: Extensive nonocclusive DVT in the left lower extremity since
[2025-03-29] MEDS: VANCOMYCIN/NS 500 MG IVPB 100 ML 120 MG IV (10:11)
--- NOTE | 2025-03-29 11:08 | ESPR_ITS ---
Documentation for date of: 03/29/25 Subjective Subjective Interval history: Reason for consult: KINJAL, oligoanuria-needing CRRT History of present illness: (patient was intubated during this auto service writer's visit so the following narrative was constructed primarily via chart checking) Vashti Ross is a 59-year-old F with a PMH of diabetes, hypertension, asthma, substance use disorder (including opiates, probable methamphetamine, and marijuana) on methadone previously, and a chronic right leg wound brought in by ambulance from her home for altered mental status. Per ED rendition of EMS report, patient was noted to be altered with a respiratory rate of 4 en route to [facility]. A total of 8 mg of Narcan was administered at this time which initially improved mentation. Upon arrival, patient was noted to be somnolent and given an additional 0.4 mg of IV Narcan which made her more active but also more combative. She was also noted to be hypoxic and in respiratory distress upon arrival which led her to be put on BiPAP. During her agitated episode, patient endorsed that she hurt all over and loudly yelled that I gotta get out of here . She was eventually given 2 mg of IV Versed and put on restraints due to her continued agitation. Later, she was taken for an MRI which required removal of her BiPAP but upon removal a subsequent drop in O2 saturation to the low 90s was noted. It was deemed that her airway was not secure and the decision was made to intubate the patient. After the MRI was performed, patient was eventually admitted to the ICU. From family collateral, it was learned that patient's last known well time was 22:30 on 03/26. Patient had been found on the floor by her at 05:00 on 03/27 whereupon he tried to rouse her from her stupor, failed, called patient's sister to notify her about patient's condition, and finally left her to go to work. Patient's sister arrived around 09:00 and found patient still lying on the bathroom whereupon this auto service writer assumes she called for an ambulance to bring the patient to the ED. In the ED, vitals showed: BP 107/78 HR 94 RR 35 Temp 101.3 SpO2 98% on 15 L BiPAP ED Course: CBC showed high WBC 13.1 w/ neutrophilic predominance but was otherwise WNL. Coagulation panel showed high PT 13.3. ABG showed acidic pH 7.27, normal pCO2 40, high pO2 146, low HCO3 18. CMP showed low carbon dioxide 18.1, high anion gap 19, high creatinine 2.8, low eGFR 19, very high blood glucose 550, very high lactic acid 4.7, high bilirubin 1.6, high AST 146, high ALT 61, high total creatine kinase 9752, very high troponin I 0.427, high BNP 297, and high procalcitonin 43.23. UA showed 2+ protein, 3+ glucose, 1+ ketones, 3+ blood, high RBC 10, high WBC 112, 3+ calcium oxalate crystals, 4+ bacteria, normal random sodium 34.2, normal random potassium 26, and low random chloride 23.2. UDS was (+) for amphetamines/methamphetamines and marijuana. Serological studies were reactive for hepatitis C antibody. Imaging: Head CT showed findings most consistent with acute right frontal lobe infarcts. Brain MRI showed multiple embolic-type foci of restricted diffusion in the b ilateral occipital lobes, bilateral frontal lobes, and bilateral parietal lobes most consistent with acute infarcts. CXR showed bibasilar pneumonia and findings suspicious for mild associated heart failure. Renal US showed small kidneys with right renal cortical thinning as well as mild right and moderate left renal parenchymal scar formation. Carotid doppler study showed 20-40% stenosis of the right internal carotid artery and 0-10% stenosis of the left internal carotid artery. EKG was unremarkable. In the ED, patient was given Duoneb Precedex, doxycycline, etomidate, Lasix, regular insulin, ketamine, Versed, naloxone, 1 L LR bolus, Zemuron, and 1 L NS bolus. Patient was intubated due to low GCS and was admitted to the ICU. Nephrology was consulted due to patient's need for urgent hemodialysis. Neurology is also following. Interval History 03/28/2025: No overnight events. Patient seen and examined at bedside; they remained intubated and unable to describe their current experience. Notable labs today include: WBC bump to 15.7 from 15.0, creatinine drop to 1.6 from 2.4, blood glucose 170, AST drop to 148 from 179, ALT dropped to 104 from 114, total CK drop to 3666 from 5964, and troponin I drop to 8.789 from 14.934. Urine culture was positive for E. coli and 1 of 2 blood cultures was positive for GPC's (current speciation still pending). She remains without urinary output and has required CRRT. Her echocardiogram came back today showing decreased ejection fraction of 40 to 45% along with vegetations of the tricuspid valve (suggestive of endocarditis). From nephrology's standpoint, patient will be receiving hemodialysis today. 03/29/2025: Patient seen and examined in the ICU. Intubated and unable to follow commands. On exam, she opens eyes spontaneously, extremities are cold and edematous. she remains on pressors,BP 90s/50s wbc 16.8, Cr 1.8 from 1.3. HD today Exam Vital Signs Temp Pulse Resp BP Pulse Ox O2 Del Method O2 Flow Rate 98.2 F 51 L 36 H 125/98 H 97 Mechanical Ventilation 15 03/29/25 04:00 03/29/25 10:06 03/29/25 06:40 03/29/25 10:06 03/29/25 10:06 03/28/25 16:16 03/26/25 10:59 FiO2 40 03/29/25 10:06 Narrative Exam General: Intubated, spontaneously eye opening HEENT: NCAT CV: S1+S2. RRR. No m/r/g Lungs: scattered ronchi, no wheezing appreciated today Abd: Soft, nontender, nondistended, bowel sounds present, no organomegaly Extremities: Left toe appears slightly darker than right toe. From the neck to the top of the chest there was erythema noted likely from pressure lesion, large ulceration in the right distal leg in anterior aspect as well as pressure lesion; chronic venous changes in bilateral legs, pedal pulses present bilaterally Neuro: not able to follow commands of open eyes. Objective Labs 03/29/25 04:56 03/29/25 04:56 Labs: Laboratory Results - last 24 hr 03/28/25 03/28/25 03/28/25 13:37 15:25 18:41 WBC 15.2 H RBC 3.71 L Hgb 10.9 L D Hct 34.6 L MCV 93 MCH 29.4 MCHC 31.5 RDW Std Deviation 52.5 H Plt Count 145 D Neut % (Auto) 82 H Lymph % (Auto) 7 L [place] % (Auto) 5 Eos % (Auto) 1 Baso % (Auto) 0 Neut # (Auto) 12.4 H Lymph # (Auto) 1.0 [place] # (Auto) 0.8 Eos # (Auto) 0.1 Baso # (Auto) 0.0 Immature Gran # (Auto) 0.86 H Absolute Nucleated RBC 0.19 H Immature Gran % 6 H Nucleated RBC % 1 H Puncture Site Arterial Line ABG pH 7.41 ABG pCO2 44 ABG pO2 105 D ABG HCO3 27 H ABG O2 Saturation 99 H ABG Base Excess 2 FiO2 80 Sodium 140 139 Potassium 3.2 L D 3.5 Chloride 106 103 Carbon Dioxide 22.4 23.6 Anion Gap 12 12 BUN 8 L 8 L Creatinine 1.0 D 0.8 Estim Creat Clear Calc 64.2 80.3 eGFR > 60 > 60 BUN/Creatinine Ratio 8 L 10 L Glucose 131 H 129 H Calculated Osmolality 279 277 Lactic Acid 1.8 Calcium 7.1 L D 7.8 L Corrected Calcium 8.3 L 8.9 Phosphorus 2.1 L 2.4 Total Bilirubin AST ALT Alkaline Phosphatase Total Protein Albumin 2.5 L D 2.6 L Globulin Albumin/Globulin Ratio Syphilis Serology Nonreactive 03/28/25 03/29/25 03/29/25 21:58 04:45 04:56 WBC 16.8 H RBC 3.78 L Hgb 11.9 L 11.1 L Hct 36.9 34.9 L MCV 92 MCH 29.4 MCHC 31.8 RDW Std Deviation 51.1 H Plt Count 139 L Neut % (Auto) 78 Lymph % (Auto) 8 L [place] % (Auto) 7 Eos % (Auto) 0 Baso % (Auto) 0 Neut # (Auto) 13.2 H Lymph # (Auto) 1.3 [place] # (Auto) 1.2 H Eos # (Auto) 0.1 Baso # (Auto) 0.0 Immature Gran # (Auto) 1.09 H Absolute Nucleated RBC 0.05 H Immature Gran % 7 H Nucleated RBC % 0 Puncture Site Right Femoral ABG pH 7.38 ABG pCO2 45 ABG pO2 72 L D ABG HCO3 27 H ABG O2 Saturation 98 ABG Base Excess 1 FiO2 21 Sodium 136 136 Potassium 4.2 D 4.1 Chloride 99 99 Carbon Dioxide 26.7 25.3 Anion Gap 10 12 BUN 12 18 Creatinine 1.3 D 1.8 H D Estim Creat Clear Calc 49.4 L 35.7 L eGFR 48 L 32 L BUN/Creatinine Ratio 9 L 10 L Glucose 160 H 197 H Calculated Osmolality 274 L 278 Lactic Acid Calcium 8.3 7.9 L Corrected Calcium 9.3 9.0 Phosphorus 4.4 Total Bilirubin 0.7 AST 88 H ALT 77 H Alkaline Phosphatase 126 H Total Protein 4.8 L Albumin 2.8 L 2.6 L Globulin 2.2 L Albumin/Globulin Ratio 1.2 Syphilis Serology ABG Interpretation ABG results: 03/26/25 03/26/25 03/26/25 11:18 11:44 16:23 ABG pH 7.27 L Cancelled ABG pCO2 40 Cancelled ABG pO2 146 H Cancelled ABG HCO3 18 L Cancelled ABG O2 Saturation 100 H Cancelled ABG Base Excess -8 L Cancelled VBG pH 7.19 L VBG pCO2 48 VBG pO2 37 VBG Base Excess -10 L 03/26/25 03/27/25 03/27/25 18:43 00:17 03:42 ABG pH 7.16 L* D 7.24 L Cancelled ABG pCO2 58 H D 44 D Cancelled ABG pO2 68 L D 80 L Cancelled ABG HCO3 21 19 L Cancelled ABG O2 Saturation 90 L 96 Cancelled ABG Base Excess -9 L -8 L Cancelled VBG pH VBG pCO2 VBG pO2 VBG Base Excess 03/27/25 03/27/25 03/27/25 04:04 07:55 18:48 ABG pH 7.26 L 7.30 L ABG pCO2 43 37 ABG pO2 83 174 H D ABG HCO3 19 L 18 L ABG O2 Saturation 97 101 H ABG Base Excess -7 L -8 L VBG pH 7.21 L 7.31 L VBG pCO2 49 48 VBG pO2 54 52 VBG Base Excess -8 L -2 03/27/25 03/28/25 03/28/25 19:07 04:06 13:37 ABG pH 7.36 7.38 7.41 ABG pCO2 41 45 44 ABG pO2 79 L D 73 L 105 D ABG HCO3 23 27 H 27 H ABG O2 Saturation 97 96 99 H ABG Base Excess -2 1 2 VBG pH VBG pCO2 VBG pO2 VBG Base Excess 03/29/25 04:45 ABG pH 7.38 ABG pCO2 45 ABG pO2 72 L D ABG HCO3 27 H ABG O2 Saturation 98 ABG Base Excess 1 VBG pH VBG pCO2 VBG pO2 VBG Base Excess Quality Measures Quality Measures none Assessment & Plan Assessment Current Active Medications: Generic Name Dose Route Start Last Admin Trade Name Freq PRN Reason Stop Dose Admin Acetaminophen 650 mg 03/26/25 18:58 Acetaminophen 325 Mg Tablet PO 04/25/25 18:57 Q4HR PRN Pain Scale 1-3 fever >100.4 Albuterol/Ipratropium 3 ml 03/27/25 01:00 03/29/25 06:39 Albuterol/Ipratropium (Duoneb) Rt Jennifer 3 Ml Nebu INH 04/26/25 00:59 3 ml Q6HRRT CRIS Administration Aspirin 81 mg 03/28/25 10:00 03/29/25 08:01 Aspirin 81 Mg Chew NG 04/27/25 09:59 81 mg QDAY CRIS Administration Atorvastatin Calcium 80 mg 03/26/25 21:00 03/28/25 21:28 Atorvastatin Calcium 20 Mg Tablet PO 04/25/25 20:59 80 mg HS CRIS Administration Dextrose 25 ml 03/26/25 20:20 Dextrose 50%-Water Inj 50 Ml Syringe IV 04/25/25 20:19 Q15MIN PRN BG 50-70 responsive npo pt Dextrose 50 ml 03/26/25 20:20 Dextrose 50%-Water Inj 50 Ml Syringe IV 04/25/25 20:19 Q15MIN PRN BG <50 OR BG <70 & pt unresponsive Epoetin Servando 10,000 unit 03/29/25 15:00 Epoetin Servando-Epbx Inj 10,000 Unit/Ml Vial (Esrd) SC 03/29/25 15:01 X1 ONE Glucagon 1 mg 03/26/25 20:20 Glucagon Inj 1 Mg Vial IM Q15MIN PRN BG <70, and no IV access Heparin Sodium (Porcine) 5,000 unit 03/27/25 14:00 03/29/25 06:06 Heparin Sod Inj 5000 Unit/Ml Vial SC 04/10/25 13:59 5,000 unit Q8HR RCIS Administration Heparin Sodium (Porcine) 2,600 unit 03/28/25 19:33 03/28/25 19:33 Heparin Sod Inj 1000 Unit/Ml Vial 10 Ml INDWELLCAT 04/11/25 19:32 2,600 unit X1 PRN Administration DIALYSIS Norepinephrine/Dextrose 8 mg in 250 mls @ 8.292 mls/hr 03/26/25 19:50 03/29/25 10:00 Levophed In D5w 8mg/250ml IV 04/25/25 19:49 0.06 mcg/kg/min .Q24H PRN 9.951 mls/hr PER PROTOCOL Titration Protocol 0.05 MCG/KG/MIN Dexmedetomidine/Sodium Chloride 400 mcg in 100 mls @ 4.423 mls/hr 03/26/25 23:53 03/29/25 10:18 Precedex Ivpb IV 04/25/25 14:17 1.4 mcg/kg/hr .[id number] PRN 30.958 mls/hr Per PROTOCOL Administration Protocol 0.2 MCG/KG/HR Fentanyl Citrate 2,500 mcg in 250 mls @ 2.5 mls/hr 03/26/25 23:53 03/29/25 10:03 Sublimaze Inj 2,500 Mcg/250 Ml Bag IV 03/31/25 23:52 0 mcg/hr .Q24H PRN 0 mls/hr PER PROTOCOL Titration Protocol 25 MCG/HR Piperacillin/Tazobactam/Dextrose 3.375 gm in 50 mls @ 12.5 mls/hr 03/27/25 14:00 03/29/25 06:08 Zosyn IV 04/03/25 13:59 12.5 mls/hr Q8HR CRIS Administration Propofol 1,000 mg in 100 mls @ 2.799 mls/hr 03/27/25 17:34 03/29/25 10:03 Diprivan Ivpb IV 04/26/25 17:33 0 mcg/kg/min .Q24H PRN 0 mls/hr PER PROTOCOL Titration Protocol 5 MCG/KG/MIN Vasopressin/Sodium Chloride 20 unit in 100 mls @ 9 mls/hr 03/28/25 16:27 Vasostrict/Ns Ivpb IV 04/27/25 16:26 .[id number] PRN PER PROTOCOL Protocol 0.03 UNIT/MIN Epinephrine/Sodium Chloride 16 mg in 250 mls @ 4.416 mls/hr 03/28/25 16:28 Adrenalin/Ns 16 Mg Ivpb IV 04/27/25 16:27 .Q24H PRN Per Protocol Protocol 0.05 MCG/KG/MIN Albumin Human 25 gm in 100 mls @ 100 mls/min 03/29/25 10:36 Albuminar-25 Ivpb IV PRN PRN DIALYSIS Insulin Degludec 12 unit 03/27/25 21:00 03/29/25 02:48 Insulin Degludec 5 Unit/0.05 Ml (Per 5 Units) SC 04/26/25 20:59 Not Given HS [facility] Insulin Human Lispro 0 unit 03/27/25 06:33 03/29/25 06:28 Insulin Lispro (Admelog) 1 Unit/0.01 Ml Unit SC 04/25/25 20:29 Not Given Q6HR [facility] Protocol Mupirocin 0 gm 03/29/25 08:30 Mupirocin Oint 2% 15 Gm Tube TOP 04/05/25 08:29 TID [facility] Pantoprazole Sodium 40 mg 03/26/25 19:15 03/29/25 08:01 Pantoprazole Inj 40 Mg Vial IVP 04/25/25 19:14 40 mg QDAY [facility] Administration Pharmacy Consult 1 each 03/26/25 19:15 03/29/25 10:11 Vancomycin Pharmacy To Dose 1 Each Each IV 04/25/25 19:14 Not Given QDAY [facility] Plan Vashti Ross is a 59-year-old F with a PMH of diabetes, hypertension, asthma, substance use disorder (including opiates, probable methamphetamine, and marijuana) on methadone previously, and a chronic right leg wound brought in by ambulance from her home for altered mental status. Patient was intubated due to low GCS and was admitted to the ICU. Plan for HD today #KINJAL vs. KINJAL on CKD vs. CKD Stage IV #likely 2/2 multifactorial etiologies including intravascular depletion, diabetic nephropathy, blood pressure derangements, glomerular diseases, sepsis- induced ATN, rhabdomyolysis, cardiorenal syndrome, crystalline nephropathy associated with oxalate, or atheroembolic disease #Rhabdomyolysis Admission creatinine 2.8 (baseline: unknown), eGFR 19 Other notable labs include: blood glucose 550, total CK 9752, troponin 0.427, UDS(+) for amphetamines/methamphetamines on 03/29 BUN 18 from 12, Cr 1.8 from 1.3 HD: 03/28 CRRT, HD 03/29 Treatment Plan -hemodialysis today -Monitor renal panel -Avoid nephrotoxic agents (aminoglycosides, NSAIDs, radiographic contrast) -Adjust medication dosing based on patient's impaired renal function -Hold any KRISSY/ARB/diuretics #Other medical problems #CVA #Acute encephalopathy #NSTEMI, Type 1 vs Type 2 #??CHF #Acute hypoxic respiratory failure #Respiratory acidosis #Community-acquired pneumonia #Transaminitis + hyperbilirubinemia #HAGMA #Hx of T2DM #Leukocytosis #Severe sepsis Treatment Plan -Continue management per primary care team (ICU) Plan discussed with nephrology attending Dr. Nathalie Vallejo MD Internal Medicine PGY-1 Attending Provider Attestation/Addendum Patient seen and examined with resident physician Dr. Vallejo. Note reviewed, agree with findings and recommendations. Patient currently seen in ICU. On the ventilator. Currently on pressors. Significant edema noted. Patient received 2 days of CRRT. On minimal dose of pressors. Decided to proceed with conventional dialysis. Patient open her eyes today. Patient currently seen on dialysis. Tolerating dialysis without any problems. Hemodialysis for 3 hours, 2K, ultrafiltration 2-3 L, Epogen 6000, no heparin ordered. Plan of care discussed with the dialysis nurse. Please see dialysis flowsheet for further details. Plan of care discussed with the ICU nurse. Spoke to ICU team, Dr. Grady. Critical care time spent more than 35 minutes regarding plan of care and disease management. Thank you Luann for allowing me to participate in the care of Ms. Kingston
[2025-03-29] MEDS: INSULIN LISPRO (AdmeLOG) 1 UNIT/0.01 ML UNIT SC (11:45)
[2025-03-29] MEDS: MUPIROCIN OINT 2% 15 GM TUBE TOP ×3 (11:46→21:44)
--- NOTE | 2025-03-29 12:26 | ESPR_ITS ---
Documentation for date of: 03/29/25 Subjective Subjective Interval history: A 59-year-old female with a past medical history of diabetes, hypertension, asthma, and a chronic right leg wound was brought to the Emergency Department after being found unresponsive. According to her mother at the bedside, the patient's last known well was at 10:30 PM the previous night and did not complain of anything. She was discovered on the bathroom floor at 5:00 AM by her , who was unable to rouse her. He contacted the patient's sister and then left for work. Patient's mother arrived at 9:00 AM and found the patient still on the floor, at which point she called for an ambulance. EMS noted pinpoint pupils, a respiratory rate of 4, hypotension, and hypoxia in the 80s. A total of 8 mg of Narcan was administered, which improved her mentation. Interval History: 03/27/2025: Patient is seen and examined at bedside in the ICU. This morning, patient suddenly developed hypotension around 7 AM for which a bolus of LR is given followed by patient was started on dobutamine, Levophed and epinephrine drip. Immediately arterial line and dialysis line with the prior flow is placed in the right internal jugular vein. Later the blood pressure improved significantly and dobutamine, epinephrine drip was discontinued. During the time of hypotension, patient was found to have multiple arrhythmias which resolved after discontinuation of dobutamine and epinephrine drip. Repeat labs were sent at that time that showed WBC 17.6, bicarb 19.2, BUN 25, creatinine 3.3, glucose 327, lactate 2.7, AST 170, ALT 109. Continued vasopressors. Later in the afternoon, patient was noted to have elevation in the troponin from 2-20.9 and noted no EKG changes showing ST and T wave changes. Ultrasound Supervisor, Dr. Nayak is consulted in view of suspected infective endocarditis and elevated troponins. He recommended no heparin drip for now as patient had suspected infective endocarditis. Neurologist, Dr Oliver is consulted regarding the anticoagulation. Consulted, Dr. Zelaya the rn transport for acute kidney injury and fluid overload for which patient was started on CRRT. 03/28/2025 The overnight echocardiogram showed a decreased ejection fraction of 40-45% and vegetations on the tricuspid valve. The patient remains largely afebrile, with a maximum temperature of 100.2?F yesterday afternoon. Her urinary output is minimal. When sedation is lightened, she becomes restless and agitated. 03/29/2025 Yesterday evening, the patient experienced vasovagal episodes while being transported for a CT pulmonary angiogram. She has been weaned from three sedatives down to a single agent, now on Precedex. The first three digits of her right hand appear more dusky than yesterday, raising concern for septic emboli. Cardiology is scheduled to perform a transesophageal echocardiogram tomorrow to assess for any left-sided cardiac vegetations. Neurology, unable to perform a full assessment yesterday due to her deep sedation, has ordered an EEG and feels it is still high-risk to initiate therapeutic anticoagulation at this stage due to the risk of hemorrhagic conversion. A final decision on anticoagulation will be deferred until the SYLVIE results are available. One of four blood culture bottles from March 26 was positive for gram-positive cocci, which could be a contaminant. Another set of blood cultures was drawn on March 27, and the 48- hour final results are pending. Exam Vital Signs Temp Pulse Resp BP Pulse Ox O2 Del Method O2 Flow Rate 98.2 F 61 29 H 125/98 H 100 Mechanical Ventilation 15 03/29/25 04:00 03/29/25 12:15 03/29/25 12:15 03/29/25 10:06 03/29/25 12:15 03/28/25 16:16 03/26/25 10:59 FiO2 40 03/29/25 12:15 Narrative Exam General: Sedated and mechanically ventilated. obese. HEENT: Normocephalic, atraumatic, mucous membranes moist. Heart: Regular rate and rhythm, no murmurs. Lungs: Clear to auscultation with no wheezing or crackles. Abdomen: Soft, nondistended, nontender, positive bowel sounds. ?No guarding or rebound tenderness. Neurologic: Sedated and mechanically ventilated.Bilateral pupils are equal and reacting to light. Extremities:There is demarcated ischemia of the 1st and 2nd digits of the left foot, which does not appear to be progressing. Both feet are cool to the touch, with the left being more so. While pulses are not palpable, they are audible by Doppler on both feet. A surgical scar is noted on the left knee, likely from a TKR. Additionally, there is a chronic 5 x 6 cm wound on the right lower extremity with an infected area on the right toe The 2nd and 3rd digits of the right hand appear dusky today, raising concern for septic emboli. The patient's left upper arm has open sores from popped blisters. Both arms are noted to be edematous. Bilateral pitting edema extends up to the knees. Tissue pressure injuries are also present on the upper lateral aspects of both thighs. Objective Labs 03/29/25 04:56 03/29/25 04:56 Labs: Laboratory Results - last 24 hr 03/28/25 03/28/25 03/28/25 13:37 15:25 18:41 WBC 15.2 H RBC 3.71 L Hgb 10.9 L D Hct 34.6 L MCV 93 MCH 29.4 MCHC 31.5 RDW Std Deviation 52.5 H Plt Count 145 D Neut % (Auto) 82 H Lymph % (Auto) 7 L Jun[place] % (Auto) 5 Eos % (Auto) 1 Baso % (Auto) 0 Neut # (Auto) 12.4 H Lymph # (Auto) 1.0 [place] # (Auto) 0.8 Eos # (Auto) 0.1 Baso # (Auto) 0.0 Immature Gran # (Auto) 0.86 H Absolute Nucleated RBC 0.19 H Immature Gran % 6 H Nucleated RBC % 1 H Puncture Site Arterial Line ABG pH 7.41 ABG pCO2 44 ABG pO2 105 D ABG HCO3 27 H ABG O2 Saturation 99 H ABG Base Excess 2 FiO2 80 Sodium 140 139 Potassium 3.2 L D 3.5 Chloride 106 103 Carbon Dioxide 22.4 23.6 Anion Gap 12 12 BUN 8 L 8 L Creatinine 1.0 D 0.8 Estim Creat Clear Calc 64.2 80.3 eGFR > 60 > 60 BUN/Creatinine Ratio 8 L 10 L Glucose 131 H 129 H Calculated Osmolality 279 277 Lactic Acid 1.8 Calcium 7.1 L D 7.8 L Corrected Calcium 8.3 L 8.9 Phosphorus 2.1 L 2.4 Total Bilirubin AST ALT Alkaline Phosphatase Total Protein Albumin 2.5 L D 2.6 L Globulin Albumin/Globulin Ratio Syphilis Serology Nonreactive 03/28/25 03/29/25 03/29/25 21:58 04:45 04:56 WBC 16.8 H RBC 3.78 L Hgb 11.9 L 11.1 L Hct 36.9 34.9 L MCV 92 MCH 29.4 MCHC 31.8 RDW Std Deviation 51.1 H Plt Count 139 L Neut % (Auto) 78 Lymph % (Auto) 8 L Jun[place] % (Auto) 7 Eos % (Auto) 0 Baso % (Auto) 0 Neut # (Auto) 13.2 H Lymph # (Auto) 1.3 [place] # (Auto) 1.2 H Eos # (Auto) 0.1 Baso # (Auto) 0.0 Immature Gran # (Auto) 1.09 H Absolute Nucleated RBC 0.05 H Immature Gran % 7 H Nucleated RBC % 0 Puncture Site Right Femoral ABG pH 7.38 ABG pCO2 45 ABG pO2 72 L D ABG HCO3 27 H ABG O2 Saturation 98 ABG Base Excess 1 FiO2 21 Sodium 136 136 Potassium 4.2 D 4.1 Chloride 99 99 Carbon Dioxide 26.7 25.3 Anion Gap 10 12 BUN 12 18 Creatinine 1.3 D 1.8 H D Estim Creat Clear Calc 49.4 L 35.7 L eGFR 48 L 32 L BUN/Creatinine Ratio 9 L 10 L Glucose 160 H 197 H Calculated Osmolality 274 L 278 Lactic Acid Calcium 8.3 7.9 L Corrected Calcium 9.3 9.0 Phosphorus 4.4 Total Bilirubin 0.7 AST 88 H ALT 77 H Alkaline Phosphatase 126 H Total Protein 4.8 L Albumin 2.8 L 2.6 L Globulin 2.2 L Albumin/Globulin Ratio 1.2 Syphilis Serology ABG Interpretation ABG results: 03/26/25 03/26/25 03/26/25 11:18 11:44 16:23 ABG pH 7.27 L Cancelled ABG pCO2 40 Cancelled ABG pO2 146 H Cancelled ABG HCO3 18 L Cancelled ABG O2 Saturation 100 H Cancelled ABG Base Excess -8 L Cancelled VBG pH 7.19 L VBG pCO2 48 VBG pO2 37 VBG Base Excess -10 L 03/26/25 03/27/25 03/27/25 18:43 00:17 03:42 ABG pH 7.16 L* D 7.24 L Cancelled ABG pCO2 58 H D 44 D Cancelled ABG pO2 68 L D 80 L Cancelled ABG HCO3 21 19 L Cancelled ABG O2 Saturation 90 L 96 Cancelled ABG Base Excess -9 L -8 L Cancelled VBG pH VBG pCO2 VBG pO2 VBG Base Excess 03/27/25 03/27/25 03/27/25 04:04 07:55 18:48 ABG pH 7.26 L 7.30 L ABG pCO2 43 37 ABG pO2 83 174 H D ABG HCO3 19 L 18 L ABG O2 Saturation 97 101 H ABG Base Excess -7 L -8 L VBG pH 7.21 L 7.31 L VBG pCO2 49 48 VBG pO2 54 52 VBG Base Excess -8 L -2 03/27/25 03/28/25 03/28/25 19:07 04:06 13:37 ABG pH 7.36 7.38 7.41 ABG pCO2 41 45 44 ABG pO2 79 L D 73 L 105 D ABG HCO3 23 27 H 27 H ABG O2 Saturation 97 96 99 H ABG Base Excess -2 1 2 VBG pH VBG pCO2 VBG pO2 VBG Base Excess 03/29/25 04:45 ABG pH 7.38 ABG pCO2 45 ABG pO2 72 L D ABG HCO3 27 H ABG O2 Saturation 98 ABG Base Excess 1 VBG pH VBG pCO2 VBG pO2 VBG Base Excess Quality Measures Quality Measures none Assessment & Plan Assessment Current Active Medications: Generic Name Dose Route Start Last Admin Trade Name Freq PRN Reason Stop Dose Admin Acetaminophen 650 mg 03/26/25 18:58 Acetaminophen 325 Mg Tablet PO 04/25/25 18:57 Q4HR PRN Pain Scale 1-3 fever >100.4 Albuterol/Ipratropium 3 ml 03/27/25 01:00 03/29/25 12:14 Albuterol/Ipratropium (Duoneb) Rt Jennifer 3 Ml Nebu INH 04/26/25 00:59 3 ml Q6HRRT CRIS Administration Aspirin 81 mg 03/28/25 10:00 03/29/25 08:01 Aspirin 81 Mg Chew NG 04/27/25 09:59 81 mg QDAY CRIS Administration Atorvastatin Calcium 80 mg 03/26/25 21:00 03/28/25 21:28 Atorvastatin Calcium 20 Mg Tablet PO 04/25/25 20:59 80 mg HS CRIS Administration Dextrose 25 ml 03/26/25 20:20 Dextrose 50%-Water Inj 50 Ml Syringe IV 04/25/25 20:19 Q15MIN PRN BG 50-70 responsive npo pt Dextrose 50 ml 03/26/25 20:20 Dextrose 50%-Water Inj 50 Ml Syringe IV 04/25/25 20:19 Q15MIN PRN BG <50 OR BG <70 & pt unresponsive Epoetin Servando 10,000 unit 03/29/25 15:00 Epoetin Servando-Epbx Inj 10,000 Unit/Ml Vial (Esrd) SC 03/29/25 15:01 X1 ONE Glucagon 1 mg 03/26/25 20:20 Glucagon Inj 1 Mg Vial IM Q15MIN PRN BG <70, and no IV access Heparin Sodium (Porcine) 5,000 unit 03/27/25 14:00 03/29/25 06:06 Heparin Sod Inj 5000 Unit/Ml Vial SC 04/10/25 13:59 5,000 unit Q8HR CRIS Administration Heparin Sodium (Porcine) 2,600 unit 03/28/25 19:33 03/28/25 19:33 Heparin Sod Inj 1000 Unit/Ml Vial 10 Ml INDWELLCAT 04/11/25 19:32 2,600 unit X1 PRN Administration DIALYSIS Norepinephrine/Dextrose 8 mg in 250 mls @ 8.292 mls/hr 03/26/25 19:50 03/29/25 10:00 Levophed In D5w 8mg/250ml IV 04/25/25 19:49 0.06 mcg/kg/min .Q24H PRN 9.951 mls/hr PER PROTOCOL Titration Protocol 0.05 MCG/KG/MIN Dexmedetomidine/Sodium Chloride 400 mcg in 100 mls @ 4.423 mls/hr 03/26/25 23:53 03/29/25 10:18 Precedex Ivpb IV 04/25/25 14:17 1.4 mcg/kg/hr .[id number] PRN 30.958 mls/hr Per PROTOCOL Administration Protocol 0.2 MCG/KG/HR Fentanyl Citrate 2,500 mcg in 250 mls @ 2.5 mls/hr 03/26/25 23:53 03/29/25 10:03 Sublimaze Inj 2,500 Mcg/250 Ml Bag IV 03/31/25 23:52 0 mcg/hr .Q24H PRN 0 mls/hr PER PROTOCOL Titration Protocol 25 MCG/HR Piperacillin/Tazobactam/Dextrose 3.375 gm in 50 mls @ 12.5 mls/hr 03/27/25 14:00 03/29/25 06:08 Zosyn IV 04/03/25 13:59 12.5 mls/hr Q8HR CRIS Administration Propofol 1,000 mg in 100 mls @ 2.799 mls/hr 03/27/25 17:34 03/29/25 10:03 Diprivan Ivpb IV 04/26/25 17:33 0 mcg/kg/min .Q24H PRN 0 mls/hr PER PROTOCOL Titration Protocol 5 MCG/KG/MIN Vasopressin/Sodium Chloride 20 unit in 100 mls @ 9 mls/hr 03/28/25 16:27 Vasostrict/Ns Ivpb IV 04/27/25 16:26 .Q11H7M PRN PER PROTOCOL Protocol 0.03 UNIT/MIN Epinephrine/Sodium Chloride 16 mg in 250 mls @ 4.416 mls/hr 03/28/25 16:28 Adrenalin/Ns 16 Mg Ivpb IV 04/27/25 16:27 .Q24H PRN Per Protocol Protocol 0.05 MCG/KG/MIN Albumin Human 25 gm in 100 mls @ 100 mls/min 03/29/25 10:36 Albuminar-25 Ivpb IV PRN PRN DIALYSIS Insulin Degludec 12 unit 03/27/25 21:00 03/29/25 02:48 Insulin Degludec 5 Unit/0.05 Ml (Per 5 Units) PA 04/26/25 20:59 Not Given HS [facility] Insulin Human Lispro 0 unit 03/27/25 06:33 03/29/25 11:45 Insulin Lispro (Admelog) 1 Unit/0.01 Ml Unit PA 04/25/25 20:29 3 unit Q6HR CRIS Administration Protocol Mupirocin 0 gm 03/29/25 08:30 03/29/25 11:46 Mupirocin Oint 2% 15 Gm Tube TOP 04/05/25 08:29 1 applicator TID CRIS Administration Pantoprazole Sodium 40 mg 03/26/25 19:15 03/29/25 08:01 Pantoprazole Inj 40 Mg Vial IVP 04/25/25 19:14 40 mg QDAY CRIS Administration Pharmacy Consult 1 each 03/26/25 19:15 03/29/25 10:11 Vancomycin Pharmacy To Dose 1 Each Each IV 04/25/25 19:14 Not Given QDAY CRIS Plan A 59-year-old female with a past medical history of diabetes, hypertension, asthma, and a chronic right leg wound was brought to the Emergency Department after being found unresponsive. Patient admitted to the ICU with septic shock, acute renal failure and acute respiratory failure. 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: #Possible Endocarditis ECHO shows vegetagetions on tricuspid valve CTPA shows multiple right lower lobe pulmonary artery and left upper lobe pulmonary artery emboli Right hand 2nd and 3rd digits appear more ischemic today Patel's Criteria not fully met (currently 1 major and 2 minor) for infective endocarditis Plan ?Cardiology to do SYLVIE tomorrow to assess for vegetations in the left heart #Troponinemia, resolving Likely was in the setting of shock followed by really high hypertension Troponins peaked at 20 on 03/27 at 3 PM Troponins have been since trending down Rx ?EKG obtained ?Continue aspirin and high intensity statin ?Cardiology following, appreciate recs #Shock Likely distributive based on the NICOM readings Bedside echo showed decrease in contractility of the heart Echocardiogram showed ejection fraction of 40 to 45% along with tricuspid vegetations Patient is not fluid responsive Patient is currently just on Levophed RX: ?Treat underlying infection #Ischemic left toe Demarcated and has not been increasing in size DDX: 2/2 to vasopressors vs. embolism to the foot Arterial doppler showed no occlusion or severe PAD RX: ?Monitor PULM: #Acute respiratory failure Likely secondary to bilateral pulmonary embolism Patient is intubated and on AC/VC mechanical ventilation Requiring high FiO2 and high PEEP ABG CO2 45 and end-tidal CO2 27 today Patient has multiple PEs and it explains the significant space RX: - AC/VC mechanical ventilation adjustments as necessary #Bilateral pulmonary embolism Etiology unclear at this stage tricuspid vegetation versus left lower extremity vegetation Due to multiple embolic CVAs patient is not a candidate for heparin drip at this point in time RX: ?Patient requires IVC filter, ordered to tomorrow AM NEPRO: #KINJAL In the setting of sepsis, shock, and rhabdomyolysis RX: ?Continue dialysis as recommended by nephrology, Dr. Zelaya following #Rhabdomyolysis, improving 03/27 CK peaked at 10,800 03/28 CK level 3666 RX: ?Levels improving with dialysis GI: #New diagnosis of Hepatitis C Rx ? Follow-up outpatient #Transaminitis, improving Likely due to ischemic hepatitis but patient also is hep C positive RX: ?Follow with a.m. labs ENDO: #Type 2 diabetes mellitus, poorly controlled RX: ?Started on insulin degludec 12 units nightly ?Insulin sliding scale HEME: #Leukocytosis, stable Likely due to to infection RX: ?Continue antibiotics #Normocytic anemia Likely in the setting of blood loss from CRRT RX: ?Monitor with a.m. labs ?Transfuse if hemoglobin less than 7 ID: #Sepsis Source urinary tract infection, urine culture grew E. coli which is pansensitive 1 blood culture from March 26 positive for Staphylococcus hominis However the other 3 blood culture bottles have been negative MRSA swab positive RX: ?Continue Zosyn ?Continue vancomycin ?Added mupirocin ointment Health Maintenance: Diet: Tube feeds with 100 mL flushes every 4 hours GI prophylaxis: Protonix DVT prophylaxis: Heparin 5000 units every 8 hours Antibiotics: Zosyn and vancomycin (03/26? CODE STATUS: Full code Disposition: ICU Case discussed with my attending Dr. Miguel A Johnson MD PGY-1
--- NOTE | 2025-03-29 13:02 | ESPR_ITS ---
Documentation for date of: 03/29/25 Subjective Subjective Interval history: This is a 59-year-old female who presented to the ER on 26 March. She was brought to the ER for altered mentation. She was found unresponsive lying on the bathroom floor. Her last known well time was 1030 night prior. Upon arrival to the ER she was found to be altered slightly combative. However her mental status declined and she was ultimately intubated for airway protection with a GCS less than 8. She was also noted to have rhabdomyolysis and acute kidney injury. MRI revealed multiple embolic infarcts bilaterally throughout all hemispheres. She was initially hypotensive and given IV fluids for resuscitation however she remained hypotensive requiring vasopressor support. Cultures were obtained. Urine culture was positive for E. coli. 1 out of 2 blood culture on arrival was positive for GPC's current speciation still pending. She is on broad-spectrum antibiotic coverage. She has had no urinary output and has required CRRT. 03/28-her echocardiogram came back overnight which shows a decreased EF of 40 to 45% along with vegetations on tricuspid valve. She remains afebrile with a Tmax of 100.2 yesterday afternoon. She has had minimal urinary output. She does wake up and become restless and agitated when sedation is lightened. 03/29-no acute overnight events, patient underwent CT angio of the chest overnight which demonstrated multiple PEs both on the left and right. Continues to be in a virtually anuric state with minimal urinary output and approximately 5 cc an hour. She is afebrile. She is agitated when sedation is lightened however does not follow commands Critical Care Note Critical care time (min.): 50 Exam Vital Signs Temp Pulse Resp BP Pulse Ox O2 Del Method O2 Flow Rate 98.2 F 61 29 H 125/98 H 100 Mechanical Ventilation 15 03/29/25 04:00 03/29/25 12:15 03/29/25 12:15 03/29/25 10:06 03/29/25 12:15 03/28/25 16:16 03/26/25 10:59 FiO2 40 03/29/25 12:15 Narrative Exam [id number], intubated, sedated, obese HEENT-normocephalic, atraumatic, sclera anicteric, pupils small and sluggish, ET tube and OG tube in place Chest-lungs clear to auscultation bilaterally, heart rate regular rhythmic, no bridge murmurs auscultated on exam, no increased work of breathing Abdomen-soft, nontender, bowel sounds diminished, no apparent discomfort on deep palpation Extremities-edema, pulses dopplerable in bilateral lower extremities, left foot with ischemic toes mostly the greater toe, both feet are cool to touch, right 2nd and 3rd digits appear more ischemic today than they did yesterday, there is a bullae present on the patient's left upper arm and an area of denuded skin from prior IV insertion site, there are pressure injuries on the left shoulder as well as bilateral thighs Drips Levophed Vent AC VC Physical Exam Completion Physical Exam Complete?: Yes 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 Labs 03/29/25 04:56 03/29/25 04:56 Labs: Laboratory Results - last 24 hr 03/28/25 03/28/25 03/28/25 13:37 15:25 18:41 WBC 15.2 H RBC 3.71 L Hgb 10.9 L D Hct 34.6 L MCV 93 MCH 29.4 MCHC 31.5 RDW Std Deviation 52.5 H Plt Count 145 D Neut % (Auto) 82 H Lymph % (Auto) 7 L [place] % (Auto) 5 Eos % (Auto) 1 Baso % (Auto) 0 Neut # (Auto) 12.4 H Lymph # (Auto) 1.0 [place] # (Auto) 0.8 Eos # (Auto) 0.1 Baso # (Auto) 0.0 Immature Gran # (Auto) 0.86 H Absolute Nucleated RBC 0.19 H Immature Gran % 6 H Nucleated RBC % 1 H Puncture Site Arterial Line ABG pH 7.41 ABG pCO2 44 ABG pO2 105 D ABG HCO3 27 H ABG O2 Saturation 99 H ABG Base Excess 2 FiO2 80 Sodium 140 139 Potassium 3.2 L D 3.5 Chloride 106 103 Carbon Dioxide 22.4 23.6 Anion Gap 12 12 BUN 8 L 8 L Creatinine 1.0 D 0.8 Estim Creat Clear Calc 64.2 80.3 eGFR > 60 > 60 BUN/Creatinine Ratio 8 L 10 L Glucose 131 H 129 H Calculated Osmolality 279 277 Lactic Acid 1.8 Calcium 7.1 L D 7.8 L Corrected Calcium 8.3 L 8.9 Phosphorus 2.1 L 2.4 Total Bilirubin AST ALT Alkaline Phosphatase Total Protein Albumin 2.5 L D 2.6 L Globulin Albumin/Globulin Ratio Syphilis Serology Nonreactive 03/28/25 03/29/25 03/29/25 21:58 04:45 04:56 WBC 16.8 H RBC 3.78 L Hgb 11.9 L 11.1 L Hct 36.9 34.9 L MCV 92 MCH 29.4 MCHC 31.8 RDW Std Deviation 51.1 H Plt Count 139 L Neut % (Auto) 78 Lymph % (Auto) 8 L [place] % (Auto) 7 Eos % (Auto) 0 Baso % (Auto) 0 Neut # (Auto) 13.2 H Lymph # (Auto) 1.3 [place] # (Auto) 1.2 H Eos # (Auto) 0.1 Baso # (Auto) 0.0 Immature Gran # (Auto) 1.09 H Absolute Nucleated RBC 0.05 H Immature Gran % 7 H Nucleated RBC % 0 Puncture Site Right Femoral ABG pH 7.38 ABG pCO2 45 ABG pO2 72 L D ABG HCO3 27 H ABG O2 Saturation 98 ABG Base Excess 1 FiO2 21 Sodium 136 136 Potassium 4.2 D 4.1 Chloride 99 99 Carbon Dioxide 26.7 25.3 Anion Gap 10 12 BUN 12 18 Creatinine 1.3 D 1.8 H D Estim Creat Clear Calc 49.4 L 35.7 L eGFR 48 L 32 L BUN/Creatinine Ratio 9 L 10 L Glucose 160 H 197 H Calculated Osmolality 274 L 278 Lactic Acid Calcium 8.3 7.9 L Corrected Calcium 9.3 9.0 Phosphorus 4.4 Total Bilirubin 0.7 AST 88 H ALT 77 H Alkaline Phosphatase 126 H Total Protein 4.8 L Albumin 2.8 L 2.6 L Globulin 2.2 L Albumin/Globulin Ratio 1.2 Syphilis Serology Assessment & Plan Additional Assessment Additional Assessment: In summary this is a 59-year-old female admitted to the ICU with septic shock, acute renal failure and acute respiratory failure 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 Encephalopathy- multifactorial and related to both metabolic issues and mult acute embolic strokes - Sedation vacation today and see if the patient is able to be oriented 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 -Neurology consulted Drug use-utox pos for meth CV Endocarditis-1 culture is positive for GPC's however these have not been identified as of yet -Echocardiogram shows vegetations on the tricuspid valve -Tricuspid valve vegetations do not readily explain the patient's bilateral embolic CVAs -May require SYLVIE to evaluate for any vegetations on the aortic valve - Discussed with cardiology today and SYLVIE for tomorrow Troponinemia-this was in the setting of shock followed by extreme hypertension -Patient had had a systolic blood pressure in the 60s on vasopressors and then systolic blood pressure increased to 300 which rapidly dropped once pressors were held -Patient's troponin of 20 at 3 PM 03/27 likely related to this event now trending down -On aspirin and statin - EKG obtained -Discussed with cardiology Shock-currently on Levophed and vasopressin -Hemodynamic numbers obtained and suggestive of distributive picture -Bedside echo was performed which showed a bit of a decrease in the patient's contractility -Formal echocardiogram obtained which showed a EF of 40 to 45% along with a tricuspid vegetation -Patient is not fluid responsive Ischemic left toe-this has been delineated and does not appear to be increasing -May be secondary to vasopressors versus embolic shower to the foot - arterial doppler did not show occlusion or severe PAD Resp Acute respiratory failure-patient is intubated on mechanical ventilation - She is currently requiring high FiO2 and PEEP though her chest x-ray does not appear that bad - Question any underlying PE - CO2 on ABG is 45 and her end-tidal CO2 is 20 - Patient has significant space - CT angio done last night shows mult b/l PE -> LE venous doppler - Multiple PEs explain the patient's significant space Pulmonary embolism-unclear if this is from patient's tricuspid vegetation versus a lower extremity Doppler - Given the question of infective endocarditis resulting in multiple embolic CVAs patient is not a great candidate for a heparin drip - Should the patient have a DVT would require an IVC filter Renal Acute renal failure-in the setting of sepsis, shock and rhabdomyolysis -Likely secondary to rhabdo with a component of sepsis -Given her embolic CVAs cannot rule out embolic event to the kidneys as well - No significant renal recovery as of yet Rhabdomyolysis-originally given IV fluids however patient developed renal failure - CK levels have trended down - Improved with dialysis GI GI prophylaxis-currently on a PPI Hepatitis C-this is a new diagnosis and will need follow-up as an outpatient Transaminitis-patient's LFTs were elevated upon arrival - This is in the setting of shock and therefore may be related to an ischemic hepatitis - Patient does also have positive hepatitis C therefore the elevated LFTs may also be due to active hep C - Currently improving Nutrition-to be started on tube feeds today Endo Diabetes-poorly controlled, she has been started on long-acting along with a sliding scale - Adjust as needed Heme Leukocytosis-likely secondary to underlying infection -More or less stable Anemia-patient had a drop in his hemoglobin and this is from blood loss on CRRT yesterday -Patient had issues with clotting on the CRRT machine and had a significant blood loss -Hemoglobin is 11.1 no indication for transfusion DVT prophylaxis-heparin 5000 units every 8 ID Sepsis-currently on vancomycin and Zosyn. Initial blood cultures 1 out of 2 bottles was positive for GPC however further edification are still pending. Her MRSA swab is positive UTI-her urine culture grew out E. coli which is pansensitive Case discussed with ICU team and nephrology Labs, imaging and records reviewed Discussed with family at bedside Approximately 50 critical care minutes required for evaluation, exam, review, intervention, discussion formation plan of care for this critically ill patient with shock and respiratory failure at high risk for further ongoing decompensation Provider Notation Provider Notation: Although this document has been carefully reviewed, there may still be some phonetic and other typographical errors. These errors are purely grammatical due to imperfections in the software program and should not be construed in any way to compromise the substance of the patient's medical care during this visit. Thank you for the opportunity and privilege in assisting you with this patient's care and management.
--- NOTE | 2025-03-29 14:30 | XR_ITS ---
Examination: AP chest single view Technique one AP portable supine chest single view Date and time: March 29, 2025, 1441 hrs., Comparison March 29, 2025 0548 hrs. Indications: Post orogastric tube placement. Findings: Orogastric tube in the stomach, tip is below level of the film Right internal jugular temporary dialysis catheter satisfactory position Endotracheal tube tip 6.8 cm above jerardo. Enlarged cardiac contour again noted with bibasilar pneumonia Impression: Orogastric tube satisfactory position
[2025-03-29] MEDS: ALBUMIN HUMAN 25% IVPB 25 GM/100 ML BTL IV (14:38)
--- NOTE | 2025-03-29 14:39 | PC.NURSE ---
BP TRENDING DOWN, WILL ADMIN PRN ALBUMIN AND CONT. TO MONITOR. BEDSIDE NURSE MARCELLUS NOTIFED.
--- NOTE | 2025-03-29 14:44 | ESPR_ITS ---
<Statement entered by Michael Nayak MD - 03/29/25 19:22> I personally evaluated the patient examined in intensive care and remains critical condition hypotensive on vasopressors multiple vasopressors still have embolization systemic embolization with possible cardiogenic emboli versus septic emboli continue to monitor blood culture results we will plan on transesophageal echo tomorrow. Able to the patient present physician and team agree with the treatment plan and recommendations condition critical prognosis poor agree with the findings of Dr. Clif Portillo PGY1 will continue to monitor the patient closely Documentation for date of: 03/29/25 Subjective Subjective Interval history: Patient had a CTA done overnight that was positive for extensive chronic nonocclusive DVT involving the common femoral, left superficial femoral, popliteal, peroneal, posterior tibial, and greater saphenous veins. Chest x-ray this morning was positive for significant bibasilar pneumonia. She has physical exam findings suspicious for septic emboli including dusky digits on the right hand. She is still sedated and intubated. Cardiology plans for SYLVIE on 03/30/2025 Exam Vital Signs Temp Pulse Resp BP Pulse Ox O2 Del Method O2 Flow Rate 98.1 F 58 L 29 H 95/59 L 91 L Mechanical Ventilation 15 03/29/25 12:56 03/29/25 14:35 03/29/25 12:56 03/29/25 14:35 03/29/25 12:56 03/28/25 16:16 03/26/25 10:59 FiO2 40 03/29/25 12:15 Narrative Exam General: Ill-appearing obese lady, sedated, mechanically ventilated. Neurologic: Sedated, pupils are round and reactive to light. HEENT: Normocephalic, atraumatic, mucous membranes moist. Heart: Regular rate and rhythm, normal S1 and S2, no murmurs. Lungs: Clear to auscultation bilaterally with no wheezing or crackles. Abdomen: Obese, soft, nondistended, positive bowel sounds. No guarding or rebound tenderness. Extremities: Bilateral lower extremity pitting edema below the knees. Surgical scar left knee. Chronic wound of 5 x 6 cm in the right lower extremity. Tissue pressure injuries on the upper lateral right and left thigh. Infected area in the right toe. Dusky right handed digits. Skin: Warm. Dry. No rash or ecchymoses. Objective Labs 03/29/25 04:56 03/29/25 04:56 Labs: Laboratory Results - last 24 hr 03/28/25 03/28/25 03/28/25 15:25 18:41 21:58 WBC 15.2 H RBC 3.71 L Hgb 10.9 L D 11.9 L Hct 34.6 L 36.9 MCV 93 MCH 29.4 MCHC 31.5 RDW Std Deviation 52.5 H Plt Count 145 D Neut % (Auto) 82 H Lymph % (Auto) 7 L [place] % (Auto) 5 Eos % (Auto) 1 Baso % (Auto) 0 Neut # (Auto) 12.4 H Lymph # (Auto) 1.0 [place] # (Auto) 0.8 Eos # (Auto) 0.1 Baso # (Auto) 0.0 Immature Gran # (Auto) 0.86 H Absolute Nucleated RBC 0.19 H Immature Gran % 6 H Nucleated RBC % 1 H Puncture Site ABG pH ABG pCO2 ABG pO2 ABG HCO3 ABG O2 Saturation ABG Base Excess FiO2 Sodium 140 139 136 Potassium 3.2 L D 3.5 4.2 D Chloride 106 103 99 Carbon Dioxide 22.4 23.6 26.7 Anion Gap 12 12 10 BUN 8 L 8 L 12 Creatinine 1.0 D 0.8 1.3 D Estim Creat Clear Calc 64.2 80.3 49.4 L eGFR > 60 > 60 48 L BUN/Creatinine Ratio 8 L 10 L 9 L Glucose 131 H 129 H 160 H Calculated Osmolality 279 277 274 L Lactic Acid 1.8 Calcium 7.1 L D 7.8 L 8.3 Corrected Calcium 8.3 L 8.9 9.3 Phosphorus 2.1 L 2.4 4.4 Total Bilirubin AST ALT Alkaline Phosphatase Total Protein Albumin 2.5 L D 2.6 L 2.8 L Globulin Albumin/Globulin Ratio Syphilis Serology Nonreactive 03/29/25 03/29/25 04:45 04:56 WBC 16.8 H RBC 3.78 L Hgb 11.1 L Hct 34.9 L MCV 92 MCH 29.4 MCHC 31.8 RDW Std Deviation 51.1 H Plt Count 139 L Neut % (Auto) 78 Lymph % (Auto) 8 L [place] % (Auto) 7 Eos % (Auto) 0 Baso % (Auto) 0 Neut # (Auto) 13.2 H Lymph # (Auto) 1.3 [place] # (Auto) 1.2 H Eos # (Auto) 0.1 Baso # (Auto) 0.0 Immature Gran # (Auto) 1.09 H Absolute Nucleated RBC 0.05 H Immature Gran % 7 H Nucleated RBC % 0 Puncture Site Right Femoral ABG pH 7.38 ABG pCO2 45 ABG pO2 72 L D ABG HCO3 27 H ABG O2 Saturation 98 ABG Base Excess 1 FiO2 21 Sodium 136 Potassium 4.1 Chloride 99 Carbon Dioxide 25.3 Anion Gap 12 BUN 18 Creatinine 1.8 H D Estim Creat Clear Calc 35.7 L eGFR 32 L BUN/Creatinine Ratio 10 L Glucose 197 H Calculated Osmolality 278 Lactic Acid Calcium 7.9 L Corrected Calcium 9.0 Phosphorus Total Bilirubin 0.7 AST 88 H ALT 77 H Alkaline Phosphatase 126 H Total Protein 4.8 L Albumin 2.6 L Globulin 2.2 L Albumin/Globulin Ratio 1.2 Syphilis Serology ABG Interpretation ABG results: 03/26/25 03/26/25 03/26/25 11:18 11:44 16:23 ABG pH 7.27 L Cancelled ABG pCO2 40 Cancelled ABG pO2 146 H Cancelled ABG HCO3 18 L Cancelled ABG O2 Saturation 100 H Cancelled ABG Base Excess -8 L Cancelled VBG pH 7.19 L VBG pCO2 48 VBG pO2 37 VBG Base Excess -10 L 03/26/25 03/27/25 03/27/25 18:43 00:17 03:42 ABG pH 7.16 L* D 7.24 L Cancelled ABG pCO2 58 H D 44 D Cancelled ABG pO2 68 L D 80 L Cancelled ABG HCO3 21 19 L Cancelled ABG O2 Saturation 90 L 96 Cancelled ABG Base Excess -9 L -8 L Cancelled VBG pH VBG pCO2 VBG pO2 VBG Base Excess 03/27/25 03/27/25 03/27/25 04:04 07:55 18:48 ABG pH 7.26 L 7.30 L ABG pCO2 43 37 ABG pO2 83 174 H D ABG HCO3 19 L 18 L ABG O2 Saturation 97 101 H ABG Base Excess -7 L -8 L VBG pH 7.21 L 7.31 L VBG pCO2 49 48 VBG pO2 54 52 VBG Base Excess -8 L -2 08/03/28/25 03/28/25 19:07 04:06 13:37 ABG pH 7.36 7.38 7.41 ABG pCO2 41 45 44 ABG pO2 79 L D 73 L 105 D ABG HCO3 23 27 H 27 H ABG O2 Saturation 97 96 99 H ABG Base Excess -2 1 2 VBG pH VBG pCO2 VBG pO2 VBG Base Excess 03/29/25 04:45 ABG pH 7.38 ABG pCO2 45 ABG pO2 72 L D ABG HCO3 27 H ABG O2 Saturation 98 ABG Base Excess 1 VBG pH VBG pCO2 VBG pO2 VBG Base Excess Quality Measures Quality Measures none Assessment & Plan Assessment Current Active Medications: Generic Name Dose Route Start Last Admin Trade Name Freq PRN Reason Stop Dose Admin Acetaminophen 650 mg 03/26/25 18:58 Acetaminophen 325 Mg Tablet PO 04/25/25 18:57 Q4HR PRN Pain Scale 1-3 fever >100.4 Albuterol/Ipratropium 3 ml 03/27/25 01:00 03/29/25 12:14 Albuterol/Ipratropium (Duoneb) Rt Jennifer 3 Ml Nebu INH 04/26/25 00:59 3 ml Q6HRRT CRIS Administration Aspirin 81 mg 03/28/25 10:00 03/29/25 08:01 Aspirin 81 Mg Chew NG 04/27/25 09:59 81 mg QDAY CRIS Administration Atorvastatin Calcium 80 mg 03/26/25 21:00 03/28/25 21:28 Atorvastatin Calcium 20 Mg Tablet PO 04/25/25 20:59 80 mg HS CRIS Administration Dextrose 25 ml 03/26/25 20:20 Dextrose 50%-Water Inj 50 Ml Syringe IV 04/25/25 20:19 Q15MIN PRN BG 50-70 responsive npo pt Dextrose 50 ml 03/26/25 20:20 Dextrose 50%-Water Inj 50 Ml Syringe IV 04/25/25 20:19 Q15MIN PRN BG <50 OR BG <70 & pt unresponsive Epoetin Servando 10,000 unit 03/29/25 15:00 Epoetin Servando-Epbx Inj 10,000 Unit/Ml Vial (Esrd) SC 03/29/25 15:01 X1 ONE Glucagon 1 mg 03/26/25 20:20 Glucagon Inj 1 Mg Vial IM Q15MIN PRN BG <70, and no IV access Heparin Sodium (Porcine) 5,000 unit 03/27/25 14:00 03/29/25 13:34 Heparin Sod Inj 5000 Unit/Ml Vial SC 04/10/25 13:59 5,000 unit Q8HR CRIS Administration Heparin Sodium (Porcine) 2,600 unit 03/28/25 19:33 03/28/25 19:33 Heparin Sod Inj 1000 Unit/Ml Vial 10 Ml INDWELLCAT 04/11/25 19:32 2,600 unit X1 PRN Administration DIALYSIS Norepinephrine/Dextrose 8 mg in 250 mls @ 8.292 mls/hr 03/26/25 19:50 03/29/25 13:00 Levophed In D5w 8mg/250ml IV 04/25/25 19:49 0.04 mcg/kg/min .Q24H PRN 6.634 mls/hr PER PROTOCOL Titration Protocol 0.05 MCG/KG/MIN Dexmedetomidine/Sodium Chloride 400 mcg in 100 mls @ 4.423 mls/hr 03/26/25 23:53 03/29/25 13:23 Precedex Ivpb IV 04/25/25 14:17 1.4 mcg/kg/hr .[id number] PRN 30.958 mls/hr Per PROTOCOL Administration Protocol 0.2 MCG/KG/HR Fentanyl Citrate 2,500 mcg in 250 mls @ 2.5 mls/hr 03/26/25 23:53 03/29/25 10:03 Sublimaze Inj 2,500 Mcg/250 Ml Bag IV 03/31/25 23:52 0 mcg/hr .Q24H PRN 0 mls/hr PER PROTOCOL Titration Protocol 25 MCG/HR Piperacillin/Tazobactam/Dextrose 3.375 gm in 50 mls @ 12.5 mls/hr 03/27/25 14:00 03/29/25 13:34 Zosyn IV 04/03/25 13:59 12.5 mls/hr Q8HR CRIS Administration Propofol 1,000 mg in 100 mls @ 2.799 mls/hr 03/27/25 17:34 03/29/25 10:03 Diprivan Ivpb IV 04/26/25 17:33 0 mcg/kg/min .Q24H PRN 0 mls/hr PER PROTOCOL Titration Protocol 5 MCG/KG/MIN Vasopressin/Sodium Chloride 20 unit in 100 mls @ 9 mls/hr 03/28/25 16:27 Vasostrict/Ns Ivpb IV 04/27/25 16:26 .[id number] PRN PER PROTOCOL Protocol 0.03 UNIT/MIN Epinephrine/Sodium Chloride 16 mg in 250 mls @ 4.416 mls/hr 03/28/25 16:28 Adrenalin/Ns 16 Mg Ivpb IV 04/27/25 16:27 .Q24H PRN Per Protocol Protocol 0.05 MCG/KG/MIN Albumin Human 25 gm in 100 mls @ 100 mls/min 03/29/25 10:36 03/29/25 14:38 Albuminar-25 Ivpb IV 100 mls/min PRN PRN Administration DIALYSIS Insulin Degludec 12 unit 03/27/25 21:00 03/29/25 02:48 Insulin Degludec 5 Unit/0.05 Ml (Per 5 Units) SC 04/26/25 20:59 Not Given HS [facility] Insulin Human Lispro 0 unit 03/27/25 06:33 03/29/25 11:45 Insulin Lispro (Admelog) 1 Unit/0.01 Ml Unit SC 04/25/25 20:29 3 unit Q6HR [facility] Administration Protocol Mupirocin 0 gm 03/29/25 08:30 03/29/25 13:34 Mupirocin Oint 2% 15 Gm Tube TOP 04/05/25 08:29 1 applicatio TID CRIS Administration Pantoprazole Sodium 40 mg 03/26/25 19:15 03/29/25 08:01 Pantoprazole Inj 40 Mg Vial IVP 04/25/25 19:14 40 mg QDAY [facility] Administration Pharmacy Consult 1 each 03/26/25 19:15 03/29/25 10:11 Vancomycin Pharmacy To Dose 1 Each Each IV 04/25/25 19:14 Not Given QDAY [facility] Plan This is a 59-year-old female with PMHx of drug use disorder, presented to ED with acute encephalopathy requiring intubation with findings of multi embolic disease involving multiple systems including brain and left distal extremity, acute and failure with the cause likely renal emboli, with findings of vegetations on SYLVIE. Admitted to ICU for ventilator support, pressor support for likely septic shock, and CRRT. 1. Acute encephalopathy, multifactorial, related to metabolic derangement and embolic CVA. 2. Septic shock in settings of endocarditis with bacteremia 3. Heart failure with reduced ejection fraction EF 40-45%. 3. NSTEMI type type I (embolic CA) vs. Type 2 (demand ischemia 2/2 shock) 4. Acute renal failure likely 2/2 septic shock vs. renal emboli vs. rhabdomyolysis IMPRESSION: This is a critically ill patient with multifactorial encephalopathy and acute multifocal embolic strokes, likely secondary to infective endocarditis. Echocardiogram shows a normal-sized LV with mild apical and global hypokinesis, LVEF 40?45%, mildly decreased RV systolic function, and tricuspid valve vegetation. Additional valvular findings include aortic valve sclerosis with mild AR and mitral valve thickening with mild MR. She is in septic shock, requiring vasopressors, and has developed troponinemia related to hemodynamic instability. The patient is intubated for acute hypoxemic respiratory failure with significant space ventilation and concern for PE. She also has acute kidney injury from sepsis and rhabdomyolysis, a newly diagnosed hepatitis C with transaminitis, poorly controlled diabetes, leukocytosis, UTI with pansensitive E. coli, and ischemic changes in the left toe likely due to vasopressor use or embolic phenomena. She has a history of methamphetamine use contributing to overall risk, and her condition is complicated by recurrent ventricular arrhythmias. RECOMMENDATIONS: Prognosis overall is guarded. Management should focus on medical therapy and supportive care, as the patient is not a candidate for surgical or percutaneous intervention given the combination of septic endocarditis, impaired ventricular function, and poor overall prognosis. Anticoagulation is much indicated in this case given the nature of the emboli and septic. Continue with ASPIRIN and high-dose statin, and careful hemodynamic support with vasopressors while avoiding wide BP fluctuations. Treat the endocarditis with appropriate IV antibiotics and will follow-up with SYLVIE (planned for 03/30/2025) to evaluate for left-sided vegetations. Continue with CRRT for renal failure. Patient was seen and discussed with my attending physician Dr. Nayak. Clif Portillo DO PGY-1.
--- NOTE | 2025-03-29 15:30 | PC.RT ---
Attempted to do EEG at this time; however patient was receiving approx. 2 more hours of bedside dialysis which did not leave me adequate space for me to set up EEG.
[2025-03-29] MEDS: HEPARIN SOD INJ 1000 UNIT/ML VIAL 10 ML 2600 UNIT INDWELLCAT (16:53)
[2025-03-29] MEDS: Norepinephrine/D5W 8mg/250ml 8 MG/250 ML BAG 9.951 MG IV (16:54)
[2025-03-29] MEDS: EPOETIN ALFA-EPBX INJ 10,000 UNIT/ML VIAL (ESRD) 10000 UNIT SC (16:59)
[2025-03-29] MEDS: PROPOFOL 1,000 MG IVPB 1,000 MG/100 ML VIAL 11.196 MG IV (19:24)
--- NOTE | 2025-03-29 21:23 | PD.NEUROPROG ---
Documentation for date of: 03/29/25 Subjective Subjective Interval history: Patient was seen in ICU today, continues to remain intubated and on [facility] vent support, receiving sedation and pressors. No changes reported. Exam - Neurology Vital Signs Temp Pulse Resp BP Pulse Ox O2 Del Method O2 Flow Rate 98.9 F 64 28 H 131/68 H 95 Mechanical Ventilation 15 03/29/25 20:00 03/29/25 21:15 03/29/25 18:00 03/29/25 21:15 03/29/25 21:15 03/29/25 16:01 03/26/25 10:59 FiO2 40 03/29/25 20:00 Narrative Exam GENERAL APPEARANCE: Well hydrated, well-nourished in no acute distress. HEENT: Normocephalic, atraumatic, extraocular movements intact. Pupils: Equal reacting to light and accommodation NECK: Supple, no JVD or bruits. CARDIOVASULAR: Heart: S1, S2 heard, regular without S3-S4 or murmur no rubs or gallops. LUNGS/CHEST: Clear to auscultation bilaterally. No rails, rhonchi, or wheezing. Normal inspection. ABDOMEN: Soft, nontender, with normal bowel sounds. No pulsatile masses. No rebound, rigidity, or guarding. Normal inspection and palpation. EXTREMITIES: Normal inspection and palpation. No edema, clubbing or cyanosis. SKIN: Warm and dry without rashes. Normal inspection. MUSCULOSKELETAL: No cervical, thoracic, lumbar or midline bony tenderness. Normal inspection. NEURO: Resting under the effect of sedation, exam is limited but no focal neurological deficit noted. No signs of meningeal irritation noted. PSYCHIATRIC: Limited Objective Labs 04/12/25 07:36 04/12/25 07:36 Labs: Laboratory Results - last 24 hr 03/26/25 03/28/25 03/29/25 12:05 21:58 04:45 WBC 13.1 H RBC 5.11 Hgb 15.1 11.9 L Hct 48.3 H 36.9 MCV 95 MCH 29.5 MCHC 31.3 RDW Std Deviation 54.2 H Plt Count 279 Neut % (Auto) 83 H Lymph % (Auto) 9 L [place] % (Auto) 6 Eos % (Auto) 1 Baso % (Auto) 0 Neut # (Auto) 10.9 H Lymph # (Auto) 1.2 [place] # (Auto) 0.7 Eos # (Auto) 0.1 Baso # (Auto) 0.1 Immature Gran # (Auto) 0.12 H Absolute Nucleated RBC 0.21 H Immature Gran % 1 H Nucleated RBC % 2 H Puncture Site Right Femoral ABG pH 7.38 ABG pCO2 45 ABG pO2 72 L D ABG HCO3 27 H ABG O2 Saturation 98 ABG Base Excess 1 FiO2 21 Sodium 136 Potassium 4.2 D Chloride 99 Carbon Dioxide 26.7 Anion Gap 10 BUN 12 Creatinine 1.3 D Estim Creat Clear Calc 49.4 L eGFR 48 L BUN/Creatinine Ratio 9 L Glucose 160 H Calculated Osmolality 274 L Calcium 8.3 Corrected Calcium 9.3 Phosphorus 4.4 Total Bilirubin AST ALT Alkaline Phosphatase Total Protein Albumin 2.8 L Globulin Albumin/Globulin Ratio 03/29/25 04:56 WBC 16.8 H RBC 3.78 L Hgb 11.1 L Hct 34.9 L MCV 92 MCH 29.4 MCHC 31.8 RDW Std Deviation 51.1 H Plt Count 139 L Neut % (Auto) 78 Lymph % (Auto) 8 L [place] % (Auto) 7 Eos % (Auto) 0 Baso % (Auto) 0 Neut # (Auto) 13.2 H Lymph # (Auto) 1.3 [place] # (Auto) 1.2 H Eos # (Auto) 0.1 Baso # (Auto) 0.0 Immature Gran # (Auto) 1.09 H Absolute Nucleated RBC 0.05 H Immature Gran % 7 H Nucleated RBC % 0 Puncture Site ABG pH ABG pCO2 ABG pO2 ABG HCO3 ABG O2 Saturation ABG Base Excess FiO2 Sodium 136 Potassium 4.1 Chloride 99 Carbon Dioxide 25.3 Anion Gap 12 BUN 18 Creatinine 1.8 H D Estim Creat Clear Calc 35.7 L eGFR 32 L BUN/Creatinine Ratio 10 L Glucose 197 H Calculated Osmolality 278 Calcium 7.9 L Corrected Calcium 9.0 Phosphorus Total Bilirubin 0.7 AST 88 H ALT 77 H Alkaline Phosphatase 126 H Total Protein 4.8 L Albumin 2.6 L Globulin 2.2 L Albumin/Globulin Ratio 1.2 ABG Interpretation ABG results: 03/26/25 03/26/25 03/26/25 11:18 11:44 16:23 ABG pH 7.27 L Cancelled ABG pCO2 40 Cancelled ABG pO2 146 H Cancelled ABG HCO3 18 L Cancelled ABG O2 Saturation 100 H Cancelled ABG Base Excess -8 L Cancelled VBG pH 7.19 L VBG pCO2 48 VBG pO2 37 VBG Base Excess -10 L 03/26/25 03/27/25 03/27/25 18:43 00:17 03:42 ABG pH 7.16 L* D 7.24 L Cancelled ABG pCO2 58 H D 44 D Cancelled ABG pO2 68 L D 80 L Cancelled ABG HCO3 21 19 L Cancelled ABG O2 Saturation 90 L 96 Cancelled ABG Base Excess -9 L -8 L Cancelled VBG pH VBG pCO2 VBG pO2 VBG Base Excess 03/27/25 03/27/25 03/27/25 04:04 07:55 18:48 ABG pH 7.26 L 7.30 L ABG pCO2 43 37 ABG pO2 83 174 H D ABG HCO3 19 L 18 L ABG O2 Saturation 97 101 H ABG Base Excess -7 L -8 L VBG pH 7.21 L 7.31 L VBG pCO2 49 48 VBG pO2 54 52 VBG Base Excess -8 L -2 03/27/25 03/28/25 03/28/25 19:07 04:06 13:37 ABG pH 7.36 7.38 7.41 ABG pCO2 41 45 44 ABG pO2 79 L D 73 L 105 D ABG HCO3 23 27 H 27 H ABG O2 Saturation 97 96 99 H ABG Base Excess -2 1 2 VBG pH VBG pCO2 VBG pO2 VBG Base Excess 03/29/25 04:45 ABG pH 7.38 ABG pCO2 45 ABG pO2 72 L D ABG HCO3 27 H ABG O2 Saturation 98 ABG Base Excess 1 VBG pH VBG pCO2 VBG pO2 VBG Base Excess Assessment & Plan Assessment and plan (1) Ischemic cerebrovascular accident (CVA): Status: Acute Assessment and plan: MRI brain Echo: FU with SYLVIE and repeat CT head without tomorrow when she is stable. ordered EEG as well. (2) Uncontrolled diabetes mellitus: Status: Chronic Assessment and plan: now improving on Insulin per sliding scale. (3) Pneumonia: Status: Acute Assessment and plan: on antibiotics (4) Pulmonary embolism: Status: Chronic Assessment and plan: will decide about Anticoagulation after the repeat CT head tomorrow. Additional Assessment & Plan Additional Plan: (1) Ischemic cerebrovascular accident (CVA): Status: Acute Assessment and plan: With the recent CTs showing findings suspicious for subarachnoid and intracerebral hemorrhage Continue with aspirin 81 mg and statin Follow-up with the hypercoagulopathy workup Her condition is very unfortunate and family is made aware of the situation with the repeat CT head findings of persistent bleed and not being able to go back on antiocoagulant therapy. Will do a repeat CT head without contrast tomorrow. (2) Uncontrolled diabetes mellitus: Status: Chronic Assessment and plan: Continue to check fingerstick glucose and follow sliding scale insulin per protocol (3) Pulmonary embolism: Status: Chronic Assessment and plan: She got the IVC filter placement Anticoagulation is difficult to decide from concurrent intracerebral and subarachnoid hemorrhage on the CT head
[2025-03-29] MEDS: ATORVASTATIN CALCIUM 20 MG TABLET 80 MG PO (21:38)
[2025-03-30] VITALS (121 sets, daily range): BP systolic 85–200; BP diastolic 18–112; PULSE 55–81; RESP 15–38; TEMP 35.9–37.7; O2SAT 85–98; BMI 38.0
[2025-03-30] MEDS: DEXMEDETOMIDINE 400 MCG IVPB 400 MCG/100 ML BAG 30.958 MCG IV ×7 (02:50→23:23)
--- NOTE | 2025-03-30 04:46 | RESP.EEG ---
EEG completed and ready for review
--- NOTE | 2025-03-30 05:00 | XR_ITS ---
Examination: AP chest single view Technique : AP portable semiupright chest single view Date and time: March 30, 2025 0528 hours, comparison March 29, 2025 INDICATIONS: Hypoxic respiratory failure this week. FINDINGS: Significant bibasilar pneumonia. Mild prominence left ventricle. Endotracheal tube tip 6 cm above jerardo. Temporary dialysis catheter tip right atrium Moderate vascular congestion IMPRESSION: Significant bibasilar pneumonia remains Orogastric tube in the stomach, the tip is below the level film
[2025-03-30 05:07] LABS: Base Excess 2 (-3-3); HCO3 26 mEq/L (20-26); O2 Saturation 93 % (91-98); PCO2 40 mmHg (32.0-48.0); PO2 66 mmHg (83-108); pH, Arterial 7.42 (7.35-7.45)
[2025-03-30 05:08] LABS: Allen Test Performed/OK; Inspired Oxygen, FIO2 40 %; Puncture Site Arterial Line
[2025-03-30] MEDS: PROPOFOL 1,000 MG IVPB 1,000 MG/100 ML VIAL 11.196 MG IV (06:00)
[2025-03-30] MEDS: MUPIROCIN OINT 2% 15 GM TUBE TOP ×3 (06:04→21:55)
[2025-03-30] MEDS: HEPARIN SOD INJ 5000 UNIT/ML VIAL SC ×3 (06:05→21:53)
[2025-03-30 06:18] LABS: Basophils # (Auto) 0.0 Thou/mm3 (0.0-0.2); Basophils % (Auto) 0 % (0-2.5); Eosinophils # (Auto) 0.1 Thou/mm3 (0.0-0.5); Eosinophils % (Auto) 1 % (0-10); Hematocrit 30.5 % (36.0-46.0); Hemoglobin 9.7 g/dL (12.0-16.0); Immature Granulocytes Auto 1.52 Thou/mm3 (0.00-0.00); Lymphocytes # (Auto) 1.1 Thou/mm3 (1.0-4.8); Lymphocytes % (Auto) 9 % (10-50); Mean Corpuscular HGB Conc 31.8 g/dl (31.0-37.0); Mean Corpuscular Hemoglobin 29.0 pg (25.0-35.0); Mean Corpuscular Volume 91 fL (80-100); Monocytes # (Auto) 0.6 Thou/mm3 (0.0-0.8); Monocytes % (Auto) 6 % (0-12); Neutrophils # (Auto) 8.0 Thou/mm3 (1.8-7.7); Neutrophils % (Auto) 71 % (37-80); Nucleated Red Blood Cell # 0.05 Thou/mm3 (0.00-0.00); Nucleated Red Blood Cell % 0 /100 WBC (0); Platelet Count 137 Thou/mm3 (140-440); RDW Standard Deviation 50.6 fL (36.4-46.3); Red Blood Count 3.34 Miln/mm3 (4.00-5.20); White Blood Count 11.4 Thou/mm3 (3.6-11.0)
[2025-03-30] MEDS: PIPER/TAZO 3.375 GM PREMIX 3.375 GM/50 ML BAG IV (06:43)
[2025-03-30] MEDS: ALBUTEROL/IPRATROPIUM (Duoneb) RT SOL 3 ML NEBU INH ×3 (06:50→19:14)
[2025-03-30 07:00] LABS: Alanine Aminotransferase 59 U/L (10-49); Albumin, Serum 2.9 gm/dL (3.5-5.0); Albumin/Globulin Ratio 1.4 (1.2-2.2); Alkaline Phosphatase 98 U/L (46-116); Anion Gap 12 (7-16); Aspartate Amino Transferase 64 U/L (0-34); BUN/Creatinine Ratio 10 Ratio (12-20); Bilirubin,Total 0.5 mg/dL (0.3-1.2); Blood Urea Nitrogen 25 mg/dL (9-23); Calcium 8.1 mg/dL (8.3-10.6); Calcium (Corrected) 9.0 mg/dL (8.5-10.1); Carbon Dioxide 24.9 mMol/L (20.0-31.0); Chloride 99 mMol/L (98-107); Creatinine (Component) 2.4 mg/dL (0.6-1.3); Estimated Creatinine Clearance 27.4 mL/min (>60); Globulin 2.1 gm/dL (2.3-3.5); Glucose 203 mg/dL (74-106); Osmolality,Calculated 282 (275-295); Potassium 3.6 mMol/L (3.4-5.1); Sodium 136 mMol/L (136-145); Total Protein 5.0 gm/dL (5.7-8.2); Vancomycin,Random 12.6 mcg/mL; eGFR 23 See Note
[2025-03-30] MEDS: fentaNYL 2,500 MCG/250 ML BAG 2,500 MCG/250 ML BAG 12.5 MCG IV (07:00)
[2025-03-30] MEDS: VANCOMYCIN/NS 500 MG IVPB 100 ML 120 MG IV (09:25)
[2025-03-30] MEDS: ASPIRIN 81 MG CHEW NG (09:25)
--- NOTE | 2025-03-30 09:30 | PC.NURSE ---
Nurse notified of no radiologist being available to do IVC filter today.
--- NOTE | 2025-03-30 09:33 | XR_ITS ---
Examination: CT brain head without contrast. 2-D sagittal coronal reconstructions Date and time of exam:March 30, 2025 1056 hours, comparison March 26, 2025 INDICATIONS: Altered mental status today CTDI: vol (mGy):51.5 DLP: (mGycm):1081 Technique: Multiple CT axial sections of the brain have been obtained, 5 mm slice thickness. Contrast has not been administered. 2-D sagittal, coronal reconstructions have been obtained Low dose protocols were performed. One or more of the following dose reduction techniques were used; automated exposure control, adjustment of the mA and/or KV according to patient size, use of iterative reconstruction technique. Findings: Again noted focal edema in the right frontal lobe stable compared to the prior study Interval focal edema in the left frontal parietal lobe, axial image 10, measuring 13 mm Interval low density in the left occipital parietal lobe, 25 mm, axial image 21 and additional low density in the left occipital lobe 16 mm axial image 29 Ventricles are not enlarged No acute hemorrhage density IMPRESSION: Additional focal areas of edema most consistent with hemorrhagic infarcts in the left frontal parietal lobe and left occipital lobe as above
--- NOTE | 2025-03-30 10:05 | PD.RESPRO ---
Documentation for date of: 03/30/25 Subjective Subjective Interval history: Reason for consult: KINJAL, oligoanuria-needing CRRT History of present illness: (patient was intubated during this software writer's visit so the following narrative was constructed primarily via chart checking) Vashti Ross is a 59-year-old F with a PMH of diabetes, hypertension, asthma, substance use disorder (including opiates, probable methamphetamine, and marijuana) on methadone previously, and a chronic right leg wound brought in by ambulance from her home for altered mental status. Per ED rendition of EMS report, patient was noted to be altered with a respiratory rate of 4 en route to [facility]. A total of 8 mg of Narcan was administered at this time which initially improved mentation. Upon arrival, patient was noted to be somnolent and given an additional 0.4 mg of IV Narcan which made her more active but also more combative. She was also noted to be hypoxic and in respiratory distress upon arrival which led her to be put on BiPAP. During her agitated episode, patient endorsed that she hurt all over and loudly yelled that I gotta get out of here . She was eventually given 2 mg of IV Versed and put on restraints due to her continued agitation. Later, she was taken for an MRI which required removal of her BiPAP but upon removal a subsequent drop in O2 saturation to the low 90s was noted. It was deemed that her airway was not secure and the decision was made to intubate the patient. After the MRI was performed, patient was eventually admitted to the ICU. From family collateral, it was learned that patient's last known well time was 22:30 on 03/26. Patient had been found on the floor by her at 05:00 on 03/27 whereupon he tried to rouse her from her stupor, failed, called patient's sister to notify her about patient's condition, and finally left her to go to work. Patient's sister arrived around 09:00 and found patient still lying on the bathroom whereupon this software writer assumes she called for an ambulance to bring the patient to the ED. In the ED, vitals showed: BP 107/78 HR 94 RR 35 Temp 101.3 SpO2 98% on 15 L BiPAP ED Course: CBC showed high WBC 13.1 w/ neutrophilic predominance but was otherwise WNL. Coagulation panel showed high PT 13.3. ABG showed acidic pH 7.27, normal pCO2 40, high pO2 146, low HCO3 18. CMP showed low carbon dioxide 18.1, high anion gap 19, high creatinine 2.8, low eGFR 19, very high blood glucose 550, very high lactic acid 4.7, high bilirubin 1.6, high AST 146, high ALT 61, high total creatine kinase 9752, very high troponin I 0.427, high BNP 297, and high procalcitonin 43.23. UA showed 2+ protein, 3+ glucose, 1+ ketones, 3+ blood, high RBC 10, high WBC 112, 3+ calcium oxalate crystals, 4+ bacteria, normal random sodium 34.2, normal random potassium 26, and low random chloride 23.2. UDS was (+) for amphetamines/methamphetamines and marijuana. Serological studies were reactive for hepatitis C antibody. Imaging: Head CT showed findings most consistent with acute right frontal lobe infarcts. Brain MRI showed multiple embolic-type foci of restricted diffusion in the bilateral occipital lobes, bilateral frontal lobes, and bilateral parietal lobes most consistent with acute infarcts. CXR showed bibasilar pneumonia and findings suspicious for mild associated heart failure. Renal US showed small kidneys with right renal cortical thinning as well as mild right and moderate left renal parenchymal scar formation. Carotid doppler study showed 20-40% stenosis of the right internal carotid artery and 0-10% stenosis of the left internal carotid artery. EKG was unremarkable. In the ED, patient was given Duoneb Precedex, doxycycline, etomidate, Lasix, regular insulin, ketamine, Versed, naloxone, 1 L LR bolus, Zemuron, and 1 L NS bolus. Patient was intubated due to low GCS and was admitted to the ICU. Nephrology was consulted due to patient's need for urgent hemodialysis. Neurology is also following. Interval History 03/28/2025: No overnight events. Patient seen and examined at bedside; they remained intubated and unable to describe their current experience. Notable labs today include: WBC bump to 15.7 from 15.0, creatinine drop to 1.6 from 2.4, blood glucose 170, AST drop to 148 from 179, ALT dropped to 104 from 114, total CK drop to 3666 from 5964, and troponin I drop to 8.789 from 14.934. Urine culture was positive for E. coli and 1 of 2 blood cultures was positive for GPC's (current speciation still pending). She remains without urinary output and has required CRRT. Her echocardiogram came back today showing decreased ejection fraction of 40 to 45% along with vegetations of the tricuspid valve (suggestive of endocarditis). From nephrology's standpoint, patient will be receiving hemodialysis today. 03/29/2025: Patient seen and examined in the ICU. Intubated and unable to follow commands. On exam, she opens eyes spontaneously, extremities are cold and edematous. she remains on pressors,BP 90s/50s wbc 16.8, Cr 1.8 from 1.3.Extensive chronic nonocclusive DVT involving the common femoral left superficial femoral, popliteal, peroneal, posterior tibial and greater saphenous veins HD today 03/30/2025: Patient seen and examined in the ICU, yesterday she was noted to be following commands in the afternoon, today however she is on several sedative medications. She remains on pressors, BP 110s to 120s/60s, WBC 11 from 16. LFT downtrending. BUN 25 from 18, Cr 2.4 from 1.8. On exam her LLE has dark fourth toe and big toe suspect embolic etiology, pending IVC filter per primary team. Exam Vital Signs Temp Pulse Resp BP Pulse Ox O2 Del Method O2 Flow Rate 98.7 F 58 L 28 H 96/57 L 87 L Mechanical Ventilation 15 03/30/25 04:00 03/30/25 07:30 03/30/25 06:50 03/30/25 07:30 03/30/25 07:30 03/29/25 16:01 03/26/25 10:59 FiO2 40 03/30/25 07:47 Narrative Exam General: Sedated and intubated and mechanically ventilated. HEENT: Normocephalic, atraumatic, mucous membranes moist. Heart: Regular rate and rhythm, no murmurs. Lungs: scattered ronchi. Abdomen: Soft, nondistended, nontender, positive bowel sounds. Neurologic: Sedated and mechanically ventilated.Bilateral pupils are equal and reacting to light. Extremities:There is demarcated ischemia of left foot of 1st and 4th digit. L knee surgical scar. UE bandaged. and restrained. Objective Labs 03/30/25 12:39 03/30/25 05:37 Labs: Laboratory Results - last 24 hr 03/26/25 03/27/25 03/30/25 12:05 02:17 04:50 WBC 13.1 H RBC 5.11 Hgb 15.1 Hct 48.3 H MCV 95 MCH 29.5 MCHC 31.3 RDW Std Deviation 54.2 H Plt Count 279 Neut % (Auto) 83 H Lymph % (Auto) 9 L [place] % (Auto) 6 Eos % (Auto) 1 Baso % (Auto) 0 Neut # (Auto) 10.9 H Lymph # (Auto) 1.2 [place] # (Auto) 0.7 Eos # (Auto) 0.1 Baso # (Auto) 0.1 Immature Gran # (Auto) 0.12 H Absolute Nucleated RBC 0.21 H Immature Gran % 1 H Nucleated RBC % 2 H Puncture Site Arterial Line ABG pH 7.42 ABG pCO2 40 ABG pO2 66 L ABG HCO3 26 ABG O2 Saturation 93 ABG Base Excess 2 FiO2 40 Sodium Potassium Chloride Carbon Dioxide Anion Gap BUN Creatinine Estim Creat Clear Calc eGFR BUN/Creatinine Ratio Glucose Calculated Osmolality Calcium Corrected Calcium Total Bilirubin AST ALT Alkaline Phosphatase Total Protein Albumin Globulin Albumin/Globulin Ratio Random Vancomycin Misc Test Result See Sep Rpt 03/30/25 05:37 WBC 11.4 H D RBC 3.34 L Hgb 9.7 L Hct 30.5 L MCV 91 MCH 29.0 MCHC 31.8 RDW Std Deviation 50.6 H Plt Count 137 L Neut % (Auto) 71 Lymph % (Auto) 9 L [place] % (Auto) 6 Eos % (Auto) 1 Baso % (Auto) 0 Neut # (Auto) 8.0 H Lymph # (Auto) 1.1 [place] # (Auto) 0.6 Eos # (Auto) 0.1 Baso # (Auto) 0.0 Immature Gran # (Auto) 1.52 H Absolute Nucleated RBC 0.05 H Immature Gran % 13 H Nucleated RBC % 0 Puncture Site ABG pH ABG pCO2 ABG pO2 ABG HCO3 ABG O2 Saturation ABG Base Excess FiO2 Sodium 136 Potassium 3.6 D Chloride 99 Carbon Dioxide 24.9 Anion Gap 12 BUN 25 H Creatinine 2.4 H D Estim Creat Clear Calc 27.4 L eGFR 23 L BUN/Creatinine Ratio 10 L Glucose 203 H Calculated Osmolality 282 Calcium 8.1 L Corrected Calcium 9.0 Total Bilirubin 0.5 AST 64 H ALT 59 H Alkaline Phosphatase 98 D Total Protein 5.0 L Albumin 2.9 L Globulin 2.1 L Albumin/Globulin Ratio 1.4 Random Vancomycin 12.6 Misc Test Result ABG Interpretation ABG results: 03/26/25 03/26/25 03/26/25 11:18 11:44 16:23 ABG pH 7.27 L Cancelled ABG pCO2 40 Cancelled ABG pO2 146 H Cancelled ABG HCO3 18 L Cancelled ABG O2 Saturation 100 H Cancelled ABG Base Excess -8 L Cancelled VBG pH 7.19 L VBG pCO2 48 VBG pO2 37 VBG Base Excess -10 L 03/26/25 03/27/25 03/27/25 18:43 00:17 03:42 ABG pH 7.16 L* D 7.24 L Cancelled ABG pCO2 58 H D 44 D Cancelled ABG pO2 68 L D 80 L Cancelled ABG HCO3 21 19 L Cancelled ABG O2 Saturation 90 L 96 Cancelled ABG Base Excess -9 L -8 L Cancelled VBG pH VBG pCO2 VBG pO2 VBG Base Excess 03/27/25 03/27/25 03/27/25 04:04 07:55 18:48 ABG pH 7.26 L 7.30 L ABG pCO2 43 37 ABG pO2 83 174 H D ABG HCO3 19 L 18 L ABG O2 Saturation 97 101 H ABG Base Excess -7 L -8 L VBG pH 7.21 L 7.31 L VBG pCO2 49 48 VBG pO2 54 52 VBG Base Excess -8 L -2 03/27/25 03/28/25 03/28/25 19:07 04:06 13:37 ABG pH 7.36 7.38 7.41 ABG pCO2 41 45 44 ABG pO2 79 L D 73 L 105 D ABG HCO3 23 27 H 27 H ABG O2 Saturation 97 96 99 H ABG Base Excess -2 1 2 VBG pH VBG pCO2 VBG pO2 VBG Base Excess 03/29/25 03/30/25 04:45 04:50 ABG pH 7.38 7.42 ABG pCO2 45 40 ABG pO2 72 L D 66 L ABG HCO3 27 H 26 ABG O2 Saturation 98 93 ABG Base Excess 1 2 VBG pH VBG pCO2 VBG pO2 VBG Base Excess Quality Measures Quality Measures VTE prophylaxis Assessment & Plan Assessment Current Active Medications: Generic Name Dose Route Start Last Admin Trade Name Juan Manuel PRN Reason Stop Dose Admin Acetaminophen 650 mg 03/26/25 18:58 Acetaminophen 325 Mg Tablet PO 04/25/25 18:57 Q4HR PRN Pain Scale 1-3 fever >100.4 Albuterol/Ipratropium 3 ml 03/27/25 01:00 03/30/25 06:50 Albuterol/Ipratropium (Duoneb) Rt Jennifer 3 Ml Nebu INH 04/26/25 00:59 3 ml Q6HRRT CRIS Administration Aspirin 81 mg 03/28/25 10:00 03/30/25 09:25 Aspirin 81 Mg Chew NG 04/27/25 09:59 81 mg QDAY CRIS Administration Atorvastatin Calcium 80 mg 03/26/25 21:00 03/29/25 21:38 Atorvastatin Calcium 20 Mg Tablet PO 04/25/25 20:59 80 mg HS CRIS Administration Dextrose 25 ml 03/26/25 20:20 Dextrose 50%-Water Inj 50 Ml Syringe IV 04/25/25 20:19 Q15MIN PRN BG 50-70 responsive npo pt Dextrose 50 ml 03/26/25 20:20 Dextrose 50%-Water Inj 50 Ml Syringe IV 04/25/25 20:19 Q15MIN PRN BG <50 OR BG <70 & pt unresponsive Glucagon 1 mg 03/26/25 20:20 Glucagon Inj 1 Mg Vial IM Q15MIN PRN BG <70, and no IV access Heparin Sodium (Porcine) 5,000 unit 03/27/25 14:00 03/30/25 06:05 Heparin Sod Inj 5000 Unit/Ml Vial SC 04/10/25 13:59 5,000 unit Q8HR CRIS Administration Heparin Sodium (Porcine) 2,600 unit 03/28/25 19:33 03/29/25 16:53 Heparin Sod Inj 1000 Unit/Ml Vial 10 Ml INDWELLCAT 04/11/25 19:32 2,600 unit X1 PRN Administration DIALYSIS Norepinephrine/Dextrose 8 mg in 250 mls @ 8.292 mls/hr 03/26/25 19:50 03/30/25 09:35 Levophed In D5w 8mg/250ml IV 04/25/25 19:49 0.03 mcg/kg/min .Q24H PRN 4.975 mls/hr PER PROTOCOL Titration Protocol 0.05 MCG/KG/MIN Dexmedetomidine/Sodium Chloride 400 mcg in 100 mls @ 4.423 mls/hr 03/26/25 23:53 03/30/25 09:18 Precedex Ivpb IV 04/25/25 14:17 1.4 mcg/kg/hr .[id number] PRN 30.958 mls/hr Per PROTOCOL Administration Protocol 0.2 MCG/KG/HR Fentanyl Citrate 2,500 mcg in 250 mls @ 2.5 mls/hr 03/26/25 23:53 03/30/25 08:00 Sublimaze Inj 2,500 Mcg/250 Ml Bag IV 03/31/25 23:52 125 mcg/hr .Q24H PRN 12.5 mls/hr PER PROTOCOL Titration Protocol 25 MCG/HR Piperacillin/Tazobactam/Dextrose 3.375 gm in 50 mls @ 12.5 mls/hr 03/27/25 14:00 03/30/25 06:43 Zosyn IV 04/03/25 13:59 12.5 mls/hr Q8HR CRIS Administration Propofol 1,000 mg in 100 mls @ 2.799 mls/hr 03/27/25 17:34 03/30/25 08:00 Diprivan Ivpb IV 04/26/25 17:33 20 mcg/kg/min .Q24H PRN 11.196 mls/hr PER PROTOCOL Titration Protocol 5 MCG/KG/MIN Epinephrine/Sodium Chloride 16 mg in 250 mls @ 4.416 mls/hr 03/28/25 16:28 Adrenalin/Ns 16 Mg Ivpb IV 04/27/25 16:27 .Q24H PRN Per Protocol Protocol 0.05 MCG/KG/MIN Albumin Human 25 gm in 100 mls @ 100 mls/min 03/29/25 10:36 03/29/25 14:38 Albuminar-25 Ivpb IV 100 mls/min PRN PRN Administration DIALYSIS Vancomycin/Sodium Chloride 100 mls @ 120 mls/hr 03/30/25 10:00 03/30/25 09:25 Vancomycin/Ns 500 Mg Ivpb IV 03/30/25 10:49 120 mls/hr X1 ONE Administration Insulin Degludec 20 unit 03/30/25 21:00 Insulin Degludec 5 Unit/0.05 Ml (Per 5 Units) SC 04/29/25 20:59 HS [facility] Insulin Human Lispro 0 unit 03/27/25 06:33 03/30/25 08:46 Insulin Lispro (Admelog) 1 Unit/0.01 Ml Unit SC 04/25/25 20:29 Not Given Q6HR [facility] Protocol Mupirocin 0 gm 03/29/25 08:30 03/30/25 06:04 Mupirocin Oint 2% 15 Gm Tube TOP 04/05/25 08:29 1 applicatio TID [facility] Administration Pantoprazole Sodium 40 mg 03/26/25 19:15 03/30/25 09:25 Pantoprazole Inj 40 Mg Vial IVP 04/25/25 19:14 40 mg QDAY CRIS Administration Pharmacy Consult 1 each 03/26/25 19:15 03/30/25 09:26 Vancomycin Pharmacy To Dose 1 Each Each IV 04/25/25 19:14 Not Given QDAY [facility] Plan Vashti Ross is a 59-year-old F with a PMH of diabetes, hypertension, asthma, substance use disorder (including opiates, probable methamphetamine, and marijuana) on methadone previously, and a chronic right leg wound brought in by ambulance from her home for altered mental status. Patient was intubated due to low GCS and was admitted to the ICU. echo with tricuspid vegitations and EF 40-45%, pending SYLVIE, pt with extensive PE and extensive non occlusive DVT of LLE, pending IVC filter. Plan for HD today #KINJAL vs. KINJAL on CKD vs. CKD Stage IV- resolving #likely 2/2 multifactorial etiologies including intravascular depletion, diabetic nephropathy, blood pressure derangements, glomerular diseases, sepsis-induced ATN, rhabdomyolysis, cardiorenal syndrome, crystalline nephropathy associated with oxalate, or atheroembolic disease #Rhabdomyolysis Admission creatinine 2.8 (baseline: unknown), eGFR 19 Other notable labs include: blood glucose 550, total CK 9752, troponin 0.427, UDS(+) for amphetamines/methamphetamines on 03/29 BUN 18 from 12, Cr 1.8 from 1.3 on 03/30 BUN 24 from 18, Cr 2.4 from 1.8 HD: 03/28 CRRT, HD 03/29, 03/30 Treatment Plan -HD today -Monitor renal panel -Avoid nephrotoxic agents (aminoglycosides, NSAIDs, radiographic contrast) -Adjust medication dosing based on patient's impaired renal function -Hold any KRISSY/ARB/diuretics #Other medical problems #CVA #Acute encephalopathy #NSTEMI, Type 1 vs Type 2 #Multiple PE - CTA Positive for multiple right lower lobe pulmonary artery and left upper lobe pulmonary artery emboli #Extensive nonocclusive DVT LLE -pending IVC filter #CHF - echo with EF 40 -45% #Endocarditis -TTE with tricuspid vegitations -pending SYLVIE #Acute hypoxic respiratory failure #Respiratory acidosis #Community-acquired pneumonia #Transaminitis + hyperbilirubinemia #HAGMA #Hx of T2DM #Leukocytosis #septic shock -Continue management per primary care team (ICU) Plan discussed with nephrology attending Dr. Nathalie Vallejo MD Internal Medicine PGY-1 Attending Provider Attestation/Addendum Patient seen and examined with resident physician Dr. Vallejo. Note reviewed, agree with findings and recommendations. Patient currently seen in ICU. On the ventilator. Currently on pressors. Significant edema noted. Patient received 2 days of CRRT. On minimal dose of pressors. Decided to proceed with conventional dialysis. Patient currently seen on dialysis. Tolerating dialysis without any problems. Hemodialysis for 3 hours, 2K, ultrafiltration 2-3 L, Epogen 6000, no heparin ordered. Plan of care discussed with the dialysis nurse. Please see dialysis flowsheet for further details. Plan of care discussed with the ICU nurse. Spoke to ICU team, Dr. Grady. Critical care time spent more than 35 minutes regarding plan of care and disease management. Thank you Luann for allowing me to participate in the care of Ms. Kingston
[2025-03-30] MEDS: cefTRIAXone 2 GM in SODIUM CHLORIDE 0.9% (Popper) 50 ML IV (11:26)
[2025-03-30 13:01] LABS: Hematocrit 34.1 % (36.0-46.0); Hemoglobin 10.8 g/dL (12.0-16.0)
[2025-03-30 13:21] LABS: AFP Non-Pregnant 2.00 ng/mL (<8.10); Carcinoembryonic Antigen 4.8 ng/mL (0.0-5.0)
[2025-03-30 13:28] LABS: C-Reactive Protein 22.1 mg/dL (0.0-0.9)
[2025-03-30 13:41] LABS: Sed Rate (ESR) 79 mm/hr (0-30)
--- NOTE | 2025-03-30 14:13 | XR_ITS ---
Examination: Tibia-Fibula, right , 2 views Technique: Tibia-fibula AP lateral 2 views Date and time of exam: March 30, 2025 1446 hours INDICATIONS: Nonhealing ulcer right lower leg this week. FINDINGS: Severe osteopenia No cortical bone destruction involving the tibia fibula No foreign bodies Cortex of the anterior tibia is diffusely thickened IMPRESSION: No evelina cortical bone destruction Cortex of the anterior tibia is diffusely thickened, seen with chronic osteomyelitis, consider MRI lower extremity without contrast follow-up
[2025-03-30] MEDS: HEPARIN SOD INJ 1000 UNIT/ML VIAL 10 ML 2600 UNIT INDWELLCAT (14:24)
--- NOTE | 2025-03-30 14:25 | ESPR_ITS ---
Documentation for date of: 03/30/25 Subjective Subjective Interval history: Patient is a 59 year old female with a past medical history of hypertension, diabetes mellitus, asthma, chronic right leg wound who was admitted on 03/26/2025 stroke, with multiple embolic type foci who required ICU for mechanical ventilation as patient unable to protect airway. 03/30/2025: Patient is currently schedule for SYLVIE at 2 PM. Weaned off sedation and able to follow commands. Currently holding off heparin drip until SYLVIE, edema and possible hemorrhage noted on repeat Ct. Exam Vital Signs Temp Pulse Resp BP Pulse Ox O2 Del Method O2 Flow Rate 96.6 F L 56 L 29 H 106/49 L 98 Mechanical Ventilation 15 03/30/25 14:04 03/30/25 14:15 03/30/25 14:04 03/30/25 14:15 03/30/25 14:04 03/30/25 12:15 03/26/25 10:59 FiO2 40 03/30/25 14:04 Narrative Exam General Appearance: Alert & Oriented X0, well-nourished [sex] who is lying in bed in mild distress, left 1st and 2nd digit noted for echomosis. HEENT: Skull symmetrical and atraumatic. Conjunctivae pale pink and moist. Pupils equal, round, reactive to light and accommodation (PERRL). External ear without lesion or discharge. Straight, nares patient, mucosa pink, no discharge. No thyroid nodule appreciated. Cardio: Normal Rate and Rhythm with S1 and S2 heart sounds. No murmurs or extra heart sounds auscultated. No bruits on carotid auscultation. No peripheral edema or cyanosis. Lungs: Symmetric with good expansion. Chest and back non-tender. Breath sounds vesicular without crackles, wheezing or rhonchi Abdomen: Non-tender, Non-distended, Normal Reactive Bowel Sounds Neuro: Alert, Yes cooperative, oriented to person, place, and time. Speech not clear as pateint is currently sedated. CN grossly intact. Upper motor strength 4/5 and Lower motor strength 4/5. withdrawals to painful stimuli Objective Labs 04/01/25 04:44 04/01/25 04:44 Labs: Laboratory Results - last 24 hr 03/26/25 03/27/25 03/30/25 12:05 02:17 04:50 WBC 13.1 H RBC 5.11 Hgb 15.1 Hct 48.3 H MCV 95 MCH 29.5 MCHC 31.3 RDW Std Deviation 54.2 H Plt Count 279 Neut % (Auto) 83 H Lymph % (Auto) 9 L Nelson % (Auto) 6 Eos % (Auto) 1 Baso % (Auto) 0 Neut # (Auto) 10.9 H Lymph # (Auto) 1.2 Nelson # (Auto) 0.7 Eos # (Auto) 0.1 Baso # (Auto) 0.1 Immature Gran # (Auto) 0.12 H Absolute Nucleated RBC 0.21 H Immature Gran % 1 H Nucleated RBC % 2 H ESR Puncture Site Arterial Line ABG pH 7.42 ABG pCO2 40 ABG pO2 66 L ABG HCO3 26 ABG O2 Saturation 93 ABG Base Excess 2 FiO2 40 Sodium Potassium Chloride Carbon Dioxide Anion Gap BUN Creatinine Estim Creat Clear Calc eGFR BUN/Creatinine Ratio Glucose Calculated Osmolality Calcium Corrected Calcium Total Bilirubin AST ALT Alkaline Phosphatase C-Reactive Prot, Quant Total Protein Albumin Globulin Albumin/Globulin Ratio Tumor Marker AFP Carcinoembryonic Ag Random Vancomycin Misc Test Result See Apr03/30/25 03/30/25 05:37 12:39 WBC 11.4 H D RBC 3.34 L Hgb 9.7 L 10.8 L Hct 30.5 L 34.1 L MCV 91 MCH 29.0 MCHC 31.8 RDW Std Deviation 50.6 H Plt Count 137 L Neut % (Auto) 71 Lymph % (Auto) 9 L Nelson % (Auto) 6 Eos % (Auto) 1 Baso % (Auto) 0 Neut # (Auto) 8.0 H Lymph # (Auto) 1.1 Nelson # (Auto) 0.6 Eos # (Auto) 0.1 Baso # (Auto) 0.0 Immature Gran # (Auto) 1.52 H Absolute Nucleated RBC 0.05 H Immature Gran % 13 H Nucleated RBC % 0 ESR 79 H Puncture Site ABG pH ABG pCO2 ABG pO2 ABG HCO3 ABG O2 Saturation ABG Base Excess FiO2 Sodium 136 Potassium 3.6 D Chloride 99 Carbon Dioxide 24.9 Anion Gap 12 BUN 25 H Creatinine 2.4 H D Estim Creat Clear Calc 27.4 L eGFR 23 L BUN/Creatinine Ratio 10 L Glucose 203 H Calculated Osmolality 282 Calcium 8.1 L Corrected Calcium 9.0 Total Bilirubin 0.5 AST 64 H ALT 59 H Alkaline Phosphatase 98 D C-Reactive Prot, Quant 22.1 H Total Protein 5.0 L Albumin 2.9 L Globulin 2.1 L Albumin/Globulin Ratio 1.4 Tumor Marker AFP 2.00 Carcinoembryonic Ag 4.8 Random Vancomycin 12.6 Misc Test Result ABG Interpretation ABG results: 03/26/25 03/26/25 03/26/25 11:18 11:44 16:23 ABG pH 7.27 L Cancelled ABG pCO2 40 Cancelled ABG pO2 146 H Cancelled ABG HCO3 18 L Cancelled ABG O2 Saturation 100 H Cancelled ABG Base Excess -8 L Cancelled VBG pH 7.19 L VBG pCO2 48 VBG pO2 37 VBG Base Excess -10 L 03/26/25 03/27/25 03/27/25 18:43 00:17 03:42 ABG pH 7.16 L* D 7.24 L Cancelled ABG pCO2 58 H D 44 D Cancelled ABG pO2 68 L D 80 L Cancelled ABG HCO3 21 19 L Cancelled ABG O2 Saturation 90 L 96 Cancelled ABG Base Excess -9 L -8 L Cancelled VBG pH VBG pCO2 VBG pO2 VBG Base Excess 03/27/25 03/27/25 03/27/25 04:04 07:55 18:48 ABG pH 7.26 L 7.30 L ABG pCO2 43 37 ABG pO2 83 174 H D ABG HCO3 19 L 18 L ABG O2 Saturation 97 101 H ABG Base Excess -7 L -8 L VBG pH 7.21 L 7.31 L VBG pCO2 49 48 VBG pO2 54 52 VBG Base Excess -8 L -2 03/27/25 03/28/25 03/28/25 19:07 04:06 13:37 ABG pH 7.36 7.38 7.41 ABG pCO2 41 45 44 ABG pO2 79 L D 73 L 105 D ABG HCO3 23 27 H 27 H ABG O2 Saturation 97 96 99 H ABG Base Excess -2 1 2 VBG pH VBG pCO2 VBG pO2 VBG Base Excess 03/29/25 03/30/25 04:45 04:50 ABG pH 7.38 7.42 ABG pCO2 45 40 ABG pO2 72 L D 66 L ABG HCO3 27 H 26 ABG O2 Saturation 98 93 ABG Base Excess 1 2 VBG pH VBG pCO2 VBG pO2 VBG Base Excess Quality Measures Quality Measures VTE prophylaxis Assessment & Plan Assessment Current Active Medications: Generic Name Dose Route Start Last Admin Trade Name Juan Manuel PRN Reason Stop Dose Admin Acetaminophen 650 mg 03/26/25 18:58 Acetaminophen 325 Mg Tablet PO 04/25/25 18:57 Q4HR PRN Pain Scale 1-3 fever >100.4 Albuterol/Ipratropium 3 ml 03/27/25 01:00 03/30/25 12:47 Albuterol/Ipratropium (Duoneb) Rt Jennifer 3 Ml Nebu INH 04/26/25 00:59 3 ml Q6HRRT CRIS Administration Aspirin 81 mg 03/28/25 10:00 03/30/25 09:25 Aspirin 81 Mg Chew NG 04/27/25 09:59 81 mg QDAY CRIS Administration Atorvastatin Calcium 80 mg 03/26/25 21:00 03/29/25 21:38 Atorvastatin Calcium 20 Mg Tablet PO 04/25/25 20:59 80 mg HS CRIS Administration Atropine Sulfate 1 mg 03/30/25 10:33 Atropine Sulf Inj 0.1 Mg/Ml Syr 10 Ml IV 04/29/25 10:32 X1 PRN Bradycardia < 35 for greater t Dextrose 25 ml 03/26/25 20:20 Dextrose 50%-Water Inj 50 Ml Syringe IV 04/25/25 20:19 Q15MIN PRN BG 50-70 responsive npo pt Dextrose 50 ml 03/26/25 20:20 Dextrose 50%-Water Inj 50 Ml Syringe IV 04/25/25 20:19 Q15MIN PRN BG <50 OR BG <70 & pt unresponsive Glucagon 1 mg 03/26/25 20:20 Glucagon Inj 1 Mg Vial IM Q15MIN PRN BG <70, and no IV access Heparin Sodium (Porcine) 5,000 unit 03/27/25 14:00 03/30/25 13:41 Heparin Sod Inj 5000 Unit/Ml Vial SC 04/10/25 13:59 5,000 unit Q8HR CRIS Administration Heparin Sodium (Porcine) 2,600 unit 03/28/25 19:33 03/30/25 14:24 Heparin Sod Inj 1000 Unit/Ml Vial 10 Ml INDWELLCAT 04/11/25 19:32 2,600 unit X1 PRN Administration DIALYSIS Norepinephrine/Dextrose 8 mg in 250 mls @ 8.292 mls/hr 03/26/25 19:50 03/30/25 13:55 Levophed In D5w 8mg/250ml IV 04/25/25 19:49 0 mcg/kg/min .Q24H PRN 0 mls/hr PER PROTOCOL Titration Protocol 0.05 MCG/KG/MIN Dexmedetomidine/Sodium Chloride 400 mcg in 100 mls @ 4.423 mls/hr 03/26/25 23:53 03/30/25 14:00 Precedex Ivpb IV 04/25/25 14:17 1.4 mcg/kg/hr .[id number] PRN 30.958 mls/hr Per PROTOCOL Titration Protocol 0.2 MCG/KG/HR Fentanyl Citrate 2,500 mcg in 250 mls @ 2.5 mls/hr 03/26/25 23:53 03/30/25 11:24 Sublimaze Inj 2,500 Mcg/250 Ml Bag IV 03/31/25 23:52 0 mcg/hr .Q24H PRN 0 mls/hr PER PROTOCOL Titration Protocol 25 MCG/HR Propofol 1,000 mg in 100 mls @ 2.799 mls/hr 03/27/25 17:34 03/30/25 11:24 Diprivan Ivpb IV 04/26/25 17:33 0 mcg/kg/min .Q24H PRN 0 mls/hr PER PROTOCOL Titration Protocol 5 MCG/KG/MIN Epinephrine/Sodium Chloride 16 mg in 250 mls @ 4.416 mls/hr 03/28/25 16:28 Adrenalin/Ns 16 Mg Ivpb IV 04/27/25 16:27 .Q24H PRN Per Protocol Protocol 0.05 MCG/KG/MIN Albumin Human 25 gm in 100 mls @ 100 mls/min 03/29/25 10:36 03/29/25 14:38 Albuminar-25 Ivpb IV 100 mls/min PRN PRN Administration DIALYSIS Ceftriaxone Sodium 2 gm/ 50 mls @ 100 mls/hr 03/30/25 10:45 03/30/25 11:26 Sodium Chloride IV 04/06/25 10:44 100 mls/hr QDAY CRIS Administration Insulin Degludec 20 unit 03/30/25 21:00 Insulin Degludec 5 Unit/0.05 Ml (Per 5 Units) SC 04/29/25 20:59 HS COUNTS INCLUDE 234 BEDS AT THE [facility] Insulin Human Lispro 0 unit 03/27/25 06:33 03/30/25 13:12 Insulin Lispro (Admelog) 1 Unit/0.01 Ml Unit NM 04/25/25 20:29 Not Given Q6HR COUNTS INCLUDE 234 BEDS AT THE [facility] Protocol Mupirocin 0 gm 03/29/25 08:30 03/30/25 06:04 Mupirocin Oint 2% 15 Gm Tube TOP 04/05/25 08:29 1 applicatio TID COUNTS INCLUDE 234 BEDS AT THE [facility] Administration Pantoprazole Sodium 40 mg 03/26/25 19:15 03/30/25 09:25 Pantoprazole Inj 40 Mg Vial IVP 04/25/25 19:14 40 mg QDAY COUNTS INCLUDE 234 BEDS AT THE [facility] Administration Pharmacy Consult 1 each 03/26/25 19:15 03/30/25 09:26 Vancomycin Pharmacy To Dose 1 Each Each IV 04/25/25 19:14 Not Given QDAY COUNTS INCLUDE 234 BEDS AT THE [facility] Plan Patient is a 59 year old female with a past medical history of hypertension, diabetes mellitus, asthma, chronic right leg wound who was admitted on 03/26/2025 stroke, with multiple embolic type foci who required ICU for mechanical ventilation as patient unable to protect airway. #Acute Encephaloapthy, likely multifactorial given substance use disorder and CVA #Acute Multiple mbolic type foci occipital lobes, bilateral frontal and bilateral parietal lobe Given possible history of substance use disorder with positive Utox, heart failure, and emoblic stroke, concern for endocarditis given ehco finding of vegetation like structure. CT head Repeat (03/30/2025): Additional focal areas of edema most consistent w/ hemorrhagic infarcts in the left pareital lobe and left occipital lobe MRI: Multiple Embolic type Foci Utox positive: meth and THC Plan: -ICU team working on transfer -continue Atorvastatin 80 mg HS -Holding Aspirin 81 mg HS given repeat CT noted edema and possible hemorrhagic infarcts. -Pending SYLVIE report -EGG pending read -Aspiration precautions. #Shock #Luekocytosis #Sepsis, concern for bacteremia, concern for endocarditis #CHF HFrEF 40-45% (03/26/2025) #Tricuspid valve vegetation, endocarditis #Acute renal failure #Rhabdomyolysis #Acute Respiraotry fialure, mechanical ventilation #PE #Hepatitis C #Hyperglycemia, uncontroleld #Diabetes Mellitus #Substance Use Disorder - The patient's plan was discussed with attending Dr. Benito Sy MD PGY2 Internal Medicine Attending Provider Attestation/Addendum I personally have seen and examined the patient at the bedside and agreed with the residents findings, assessment and plan of care. Impression Acute embolic CVA Ischemic encephalopathy Plan/recommendations: follow-up with repeat CT head and transesophageal echocardiogram to decide about anticoagulation therapy to be safe.
--- NOTE | 2025-03-30 14:27 | ECHO_ITS ---
Transesophageal Echo Report Ht (in): 5 Wt (lb): 208 Exam Location: Echo Lab Status: Inpatient Director Of Online Merchandising: Jeane Recio Indications: Procedure Performed: BP: 115 / 60 HR: 120 Medications 100mcg fentanyl and 4mg versed FINDINGS Left Ventricle Normal left ventricular size, wall thickness, systolic function with no obvious regional wall motion abnormalities Right Ventricle The right ventricle is normal in size and systolic function. Left Atrium The left atrial cavity size is severely increased. Atrial Appendages The left atrial appendage appears normal with no evidence for thrombus. Atrial Septum A patent foramen ovale is present with [id number] shunt a patent foramen ovale is present demonstrated by agitated saline injection. Aorta The aorta is normal by two-dimensional measuring 3.1 cm , color flow and Doppler interrogation. Mitral Valve The mitral valve is normal by two-dimensional, color flow and Doppler interrogation. Moderate mitral regurgitation. Aortic Valve The aortic valve is trileaflet and normal by two-dimensional, color flow and Doppler interrogation. Trace to mild aortic valve regurgitation. Tricuspid Valve The tricuspid valve is normal by two-dimensional, color flow and Doppler interrogation. There is trace tricuspid valve regurgitation. Pulmonic Valve The pulmonic valve is normal by two-dimensional, color flow and Doppler interrogation. There is no significant pulmonic valve regurgitation. Vessels The pulmonary artery appears normal. The inferior vena cava pulmonary and hepatic veins appear normal. Pericardium The pericardium is normal by two-dimensional imaging. There is no significant pericardial effusion. CONCLUSIONS Indication: Stroke Atrial septal aneurysm present and bubble study positive for PFO especially with increased right atrial pressure. [Maximal oscillation of the atrial septal aneurysm up to 15 mm into the left atrium and base measured up to 23 mm] No evidence of any echodensities or vegetations on any of the valves. Mild MR, mild AI and trace TR. Normal LV size and function. Normal RV size and function. No evidence of any LA or MARISELA thrombus. Normal pulmonary vein flow. No evidence of any pericardial effusion. Joshua Fernandez (Electronically Signed) Final Date: 30 March 2025 20:14
--- NOTE | 2025-03-30 14:47 | ESCONSULT_ITS ---
HPI Data of Consult Requesting Physician: Luann Grady MD Admitting Provider: Luann Grady MD Attending Provider: Luann Grady MD Primary Care Provider: Physician No Primary/Family Consult Narrative History of present illness: The patient is a 59-year-old female with a past medical history of diabetes mellitus type 2, hypertension, asthma, chronic right leg wounds, history of methamphetamine abuse, HCV positive status, who was admitted to the hospital for septic shock and acute encephalopathy requiring intubation, NSTEMI, heart failure with reduced ejection fraction, acute kidney injury, and concern for vegetations. Airport Operations Specialist Dr. Tamra Nayak was consulted initially, echocardiogram was done which showed normal-sized LV with apical and global hypokinesis, LVEF 40 to 45%, and tricuspid valve regurgitation mildly decreased RV systolic function. The patient was found unconscious at home, patient was brought to hospital [facility] by EMS, Patient was given Narcan with some initial response but then became comatose again, stroke alert was called in the ER, initial head CT showed 2 acute infarction right frontal lobe. Patient was also noted to be febrile and respiratory rate 35. Hypoxia, patient was started on BiPAP, but later as patient GCS continue to worsen, patient was intubated for airway protection. Patient also received IV fluids in the emergency room as part of sepsis protocol but he was concern for volume overload as he was noted to have bilateral respiratory crackles for which she was given Lasix . Initially fish fryer Dr. Tamra Nayak was consulted for possible cardiogenic shock and an echocardiogram was ordered to rule out cardioembolic phenomenon or endocarditis. Given that patient had high-grade fever and the GPC blood cultures were positive, echocardiogram showed evidence of mild LV dysfunction EF 45%, with apical hypokinesis, and definite evidence of tricuspid valve vegetation. Structural fish fryer Dr. Fernandez was consulted for SYLVIE to confirm evidence of vegetation versus presence of shunt. Neurologist Dr. Oliver also followed the patient, recommended getting SYLVIE, improving glycemic control, no recommendation for anticoagulation at this point due to concern for septic emboli and concern for hemorrhagic conversion. Outbound Sales Professional Dr Zelaya is following the patient for acute on chronic kidney injury, patient currently on hemodialysis Airport Operations Specialist Dr. Landon Nayak is following the patient for acute on chronic heart failure. Structural fish fryer Dr Fernandez is consulted for SYLVIE Head CT showed finding consistent with acute right lobe infarcts Brain MRI showed multiple areas of restricted diffusion consistent with embolic type infarcts in the bilateral occipital lobe, bilateral frontal lobe, bilateral parietal lobes. Chest x-ray consistent with bibasilar pneumonia and findings concerning for mild heart failure. Renal ultrasound showed small kidneys with parenchymal scar formation Carotid duplex study showed 20 to 40% stenosis of right ICA and 0 to 10% stenosis of left ICA. EKG showed sinus rhythm CT angiogram on 03/28/2025 positive for multiple right lower lobe pulmonary artery and left upper lobe pulmonary artery emboli, infarction versus pneumonia at lung bases. Repeat head CT on 03/30/2025 showed additional focal areas of edema most consistent with hemorrhagic infarcts in the left frontal parietal lobe and left occipital lobe. cc:: cc: Luann Grady MD Review of Systems Review of Systems ROS Unobtainable: unobtainable due to mental status and due to endotracheal tube Past Medical History Past Medical History CARDIAC: Negative Cardiac Disorders (post menopause) or Congestive Heart Failure RESPIRATORY: Positive Respiratory Disorders (asthma) and Asthma; Negative Chronic Obstructive Pulmonary Disease (COPD) GENITOURINARY: Positive Renal Disease MUSCULOSKELETAL: Positive Musculoskeletal Disorders ENDOCRINE: Positive Diabetes Mellitus Type 2; Negative Diabetes Mellitus Type 1 HEMATOLOGIC: Negative Sickle Cell Disease Social History SMOKING STATUS: Unknown if ever smoked Past Medical History Comments PMH COMMENT: unobtainable due to mental status and due to endotracheal tube Exam Vital Signs Temp Pulse Resp BP Pulse Ox O2 Del Method O2 Flow Rate 96.6 F L 62 25 H 92/59 L 95 Mechanical Ventilation 15 03/30/25 14:04 03/30/25 14:30 03/30/25 14:30 03/30/25 14:30 03/30/25 14:30 03/30/25 12:15 03/26/25 10:59 FiO2 40 03/30/25 14:04 Narrative Exam General: Currently intubated and mechanically ventilated, G-tube in place, currently undergoing hemodialysis Skin: Intact, no cyanosis or edema noted. HEENT: Atraumatic/normocephalic, JACKLYN, neck supple Heart: RRR, S1 and S2 without clicks or murmurs Lungs: Clear on auscultation bilaterally, no difficulty breathing Abdomen: Soft, nontender. Bowel sounds present . Vascular: Peripheral pulses palpable Neuro: No focal neurological deficits noted. Extremities: Bilateral lower extremity chronic wounds, right leg is covered in surgical gauze which is clean and dry. Results Labs 03/30/25 12:39 03/30/25 05:37 Labs: Short CBC 03/26/25 03/30/25 03/30/25 Range/Units 12:05 05:37 12:39 WBC 13.1 H 11.4 H D (3.6-11.0) Thou/mm3 Hgb 15.1 9.7 L 10.8 L (12.0-16.0) g/dL Hct 48.3 H 30.5 L 34.1 L (36.0-46.0) % Plt Count 279 137 L (140-440) Thou/mm3 BMP 03/30/25 05:37 Sodium 136 Potassium 3.6 D Chloride 99 Carbon Dioxide 24.9 BUN 25 H Creatinine 2.4 H D Glucose 203 H Calcium 8.1 L Liver Function 03/30/25 Range/Units 05:37 Total Bilirubin 0.5 (0.3-1.2) mg/dL AST 64 H (0-34) U/L ALT 59 H (10-49) U/L Alkaline Phosphatase 98 D (46-116) U/L Albumin 2.9 L (3.5-5.0) gm/dL ABG Interpretation ABG results: 03/26/25 03/26/25 03/26/25 11:18 11:44 16:23 ABG pH 7.27 L Cancelled ABG pCO2 40 Cancelled ABG pO2 146 H Cancelled ABG HCO3 18 L Cancelled ABG O2 Saturation 100 H Cancelled ABG Base Excess -8 L Cancelled VBG pH 7.19 L VBG pCO2 48 VBG pO2 37 VBG Base Excess -10 L 03/26/25 03/27/25 03/27/25 18:43 00:17 03:42 ABG pH 7.16 L* D 7.24 L Cancelled ABG pCO2 58 H D 44 D Cancelled ABG pO2 68 L D 80 L Cancelled ABG HCO3 21 19 L Cancelled ABG O2 Saturation 90 L 96 Cancelled ABG Base Excess -9 L -8 L Cancelled VBG pH VBG pCO2 VBG pO2 VBG Base Excess 03/27/25 03/27/25 03/27/25 04:04 07:55 18:48 ABG pH 7.26 L 7.30 L ABG pCO2 43 37 ABG pO2 83 174 H D ABG HCO3 19 L 18 L ABG O2 Saturation 97 101 H ABG Base Excess -7 L -8 L VBG pH 7.21 L 7.31 L VBG pCO2 49 48 VBG pO2 54 52 VBG Base Excess -8 L -2 03/27/25 03/28/25 03/28/25 19:07 04:06 13:37 ABG pH 7.36 7.38 7.41 ABG pCO2 41 45 44 ABG pO2 79 L D 73 L 105 D ABG HCO3 23 27 H 27 H ABG O2 Saturation 97 96 99 H ABG Base Excess -2 1 2 VBG pH VBG pCO2 VBG pO2 VBG Base Excess 03/29/25 03/30/25 04:45 04:50 ABG pH 7.38 7.42 ABG pCO2 45 40 ABG pO2 72 L D 66 L ABG HCO3 27 H 26 ABG O2 Saturation 98 93 ABG Base Excess 1 2 VBG pH VBG pCO2 VBG pO2 VBG Base Excess Quality Measures Quality Measures VTE prophylaxis Medications Home Medications and Allergies Allergies Allergy/AdvReac Type Severity Reaction Status Date / Time No Known Allergies Allergy Verified 03/26/25 11:03 Visit Medications Acetaminophen (Acetaminophen 325 Mg Tablet) 650 mg PO Q4HR PRN PRN Reason: Pain Scale 1-3 fever >100.4 Stop: 04/25/25 18:57 Albuterol/Ipratropium (Albuterol/Ipratropium (Duoneb) Rt Jennifer 3 Ml Nebu) 3 ml INH Q6HRRT [facility] Stop: 04/26/25 00:59 Last Admin: 03/30/25 12:47 Dose: 3 ml Aspirin (Aspirin 81 Mg Chew) 81 mg NG QDAY [facility] Stop: 04/27/25 09:59 Last Admin: 03/30/25 09:25 Dose: 81 mg Atorvastatin Calcium (Atorvastatin Calcium 20 Mg Tablet) 80 mg PO HS [facility] Stop: 04/25/25 20:59 Last Admin: 03/29/25 21:38 Dose: 80 mg Atropine Sulfate (Atropine Sulf Inj 0.1 Mg/Ml Syr 10 Ml) 1 mg IV X1 PRN PRN Reason: Bradycardia < 35 for greater t Stop: 04/29/25 10:32 Dextrose (Dextrose 50%-Water Inj 50 Ml Syringe) 25 ml IV Q15MIN PRN PRN Reason: BG 50-70 responsive npo pt Stop: 04/25/25 20:19 Dextrose (Dextrose 50%-Water Inj 50 Ml Syringe) 50 ml IV Q15MIN PRN PRN Reason: BG <50 OR BG <70 & pt unresponsive Stop: 04/25/25 20:19 Glucagon (Glucagon Inj 1 Mg Vial) 1 mg IM Q15MIN PRN PRN Reason: BG <70, and no IV access Heparin Sodium (Porcine) (Heparin Sod Inj 5000 Unit/Ml Vial) 5,000 unit SC Q8HR [facility] Stop: 04/10/25 13:59 Last Admin: 03/30/25 13:41 Dose: 5,000 unit Heparin Sodium (Porcine) (Heparin Sod Inj 1000 Unit/Ml Vial 10 Ml) 2,600 unit INDWELLCAT X1 PRN PRN Reason: DIALYSIS Stop: 04/11/25 19:32 Last Admin: 03/30/25 14:24 Dose: 2,600 unit Norepinephrine/Dextrose (Levophed In D5w 8mg/250ml) 8 mg in 250 mls @ 8.292 mls/hr IV .Q24H PRN; Protocol PRN Reason: PER PROTOCOL Stop: 04/25/25 19:49 Last Titration: 03/30/25 13:55 Dose: 0 mcg/kg/min, 0 mls/hr Dexmedetomidine/Sodium Chloride (Precedex Ivpb) 400 mcg in 100 mls @ 4.423 mls/hr IV .[id number] PRN; Protocol PRN Reason: Per PROTOCOL Stop: 04/25/25 14:17 Last Titration: 03/30/25 14:00 Dose: 1.4 mcg/kg/hr, 30.958 mls/hr Fentanyl Citrate (Sublimaze Inj 2,500 Mcg/250 Ml Bag) 2,500 mcg in 250 mls @ 2.5 mls/hr IV .Q24H PRN; Protocol PRN Reason: PER PROTOCOL Stop: 03/31/25 23:52 Last Titration: 03/30/25 11:24 Dose: 0 mcg/hr, 0 mls/hr Propofol (Diprivan Ivpb) 1,000 mg in 100 mls @ 2.799 mls/hr IV .Q24H PRN; Protocol PRN Reason: PER PROTOCOL Stop: 04/26/25 17:33 Last Titration: 03/30/25 11:24 Dose: 0 mcg/kg/min, 0 mls/hr Epinephrine/Sodium Chloride (Adrenalin/Ns 16 Mg Ivpb) 16 mg in 250 mls @ 4.416 mls/hr IV .Q24H PRN; Protocol PRN Reason: Per Protocol Stop: 04/27/25 16:27 Albumin Human (Albuminar-25 Ivpb) 25 gm in 100 mls @ 100 mls/min IV PRN PRN PRN Reason: DIALYSIS Last Admin: 03/29/25 14:38 Dose: 100 mls/min Ceftriaxone Sodium 2 gm/ (Sodium Chloride) 50 mls @ 100 mls/hr IV QDAY [facility] Stop: 04/06/25 10:44 Last Admin: 03/30/25 11:26 Dose: 100 mls/hr Insulin Degludec (Insulin Degludec 5 Unit/0.05 Ml (Per 5 Units)) 20 unit SC HS [facility] Stop: 04/29/25 20:59 Insulin Human Lispro (Insulin Lispro (Admelog) 1 Unit/0.01 Ml Unit) 0 unit SC Q6HR [facility]; Protocol Stop: 04/25/25 20:29 Last Admin: 03/30/25 13:12 Dose: Not Given Mupirocin (Mupirocin Oint 2% 15 Gm Tube) 0 gm TOP TID [facility] Stop: 04/05/25 08:29 Last Admin: 03/30/25 06:04 Dose: 1 applicatio Pantoprazole Sodium (Pantoprazole Inj 40 Mg Vial) 40 mg IVP QDAY [facility] Stop: 04/25/25 19:14 Last Admin: 03/30/25 09:25 Dose: 40 mg Pharmacy Consult (Vancomycin Pharmacy To Dose 1 Each Each) 1 each IV QDAY [facility] Stop: 04/25/25 19:14 Last Admin: 03/30/25 09:26 Dose: Not Given Discontinued Medications Albuterol (Albuterol Rt 2.5 Mg/3 Ml Nebu) 2.5 mg INH X1 ONE Stop: 03/26/25 10:40 Last Admin: 03/26/25 11:41 Dose: 2.5 mg Albuterol/Ipratropium (Albuterol/Ipratropium (Duoneb) Rt Jennifer 3 Ml Nebu) 3 ml INH X1 ONE Stop: 03/26/25 10:40 Last Admin: 03/26/25 11:41 Dose: 3 ml Aspirin (Aspirin 81 Mg Chew) 324 mg PO X1 ONE Stop: 03/26/25 19:06 Last Admin: 03/26/25 22:46 Dose: 324 mg Aspirin (Aspirin Ec 81 Mg Tabec) 81 mg PO QDAY [facility] Stop: 04/26/25 08:59 Last Admin: 03/27/25 10:18 Dose: Not Given Aspirin (Aspirin 81 Mg Chew) 81 mg NG QDAY [facility] Stop: 04/26/25 08:59 Last Admin: 03/28/25 09:58 Dose: Not Given Aspirin (Aspirin 81 Mg Chew) 81 mg NG QDAY [facility] Stop: 04/26/25 08:59 Bumetanide (Bumetanide Inj 0.25 Mg/Ml Vial 4 Ml) 1 mg IVP X1 ONE Stop: 03/27/25 10:47 Last Admin: 03/27/25 11:23 Dose: 1 mg Clopidogrel Bisulfate (Clopidogrel Bisulfate 75 Mg Tablet) 75 mg PO QDAY [facility] Stop: 04/25/25 19:14 Last Admin: 03/27/25 10:18 Dose: Not Given Clopidogrel Bisulfate (Clopidogrel Bisulfate 75 Mg Tablet) 75 mg NG QDAY [facility] Stop: 04/25/25 19:14 Last Admin: 03/27/25 09:54 Dose: 75 mg Epoetin Servando (Epoetin Servando-Epbx Inj 10,000 Unit/Ml Vial (Esrd)) 10,000 unit SC X1 ONE Stop: 03/29/25 15:01 Last Admin: 03/29/25 16:59 Dose: 10,000 unit Esmolol HCl (Esmolol Inj 10 Mg/Ml Vial 10 Ml) 45 mg IVP X1 ONE Stop: 03/27/25 08:31 Last Admin: 03/27/25 10:04 Dose: Not Given Fentanyl Citrate (Fentanyl Cit Inj 50 Mcg/Ml Amp 2ml) 50 mcg IVP X1 ONE Stop: 03/26/25 23:50 Last Admin: 03/27/25 00:01 Dose: 50 mcg Fentanyl Citrate (Fentanyl Cit Inj 50 Mcg/Ml Amp 2ml) 50 mcg IM X1 ONE Stop: 03/26/25 23:51 Fentanyl Citrate (Fentanyl Cit Inj 50 Mcg/Ml Amp 2ml) 50 mcg IVP X1 ONE Stop: 03/27/25 06:36 Last Admin: 03/27/25 06:40 Dose: 50 mcg Furosemide (Furosemide Inj 10 Mg/Ml 4ml Vial) 60 mg IVP X1 ONE Stop: 03/26/25 11:28 Last Admin: 03/26/25 11:36 Dose: 60 mg Heparin Sodium (Porcine) (Heparin Sod Inj 5000 Unit/Ml Vial) 5,000 unit SC Q12HR [facility] Stop: 04/09/25 20:59 Last Admin: 03/27/25 09:54 Dose: 5,000 unit Heparin Sodium (Porcine) (Heparin Sod Inj 1000 Unit/Ml Vial 10 Ml) 1,600 unit INDWELLCAT X1 ONE Stop: 03/27/25 20:07 Last Admin: 03/28/25 01:36 Dose: 1,600 unit Heparin Sodium (Porcine) (Heparin Sod Inj 1000 Unit/Ml Vial 10 Ml) 2,600 unit INDWELLCAT X1 ONE Stop: 03/28/25 19:05 Last Admin: 03/28/25 14:50 Dose: 2,600 unit Heparin Sodium (Porcine) (Heparin Sod Inj 1000 Unit/Ml Vial 10 Ml) 2.6 unit INDWELLCAT X1 PRN PRN Reason: Dialysis Stop: 04/11/25 20:48 Ceftriaxone Sodium/Dextrose (Rocephin/D5w 1gm Iv Premix) 1 gm in 50 mls @ 100 mls/hr IV QDAY [facility] Stop: 04/02/25 12:39 Last Infusion: 03/26/25 14:09 Dose: Infused Doxycycline Hyclate 100 mg/ (Sodium Chloride) 100 mls @ 100 mls/hr IV X1 ONE Stop: 03/26/25 13:39 Last Infusion: 03/26/25 16:43 Dose: Infused Acetaminophen (Ofirmev Inj) 1,000 mg in 100 mls @ 250 mls/hr IV NOW ONE Stop: 03/26/25 13:48 Last Infusion: 03/26/25 14:10 Dose: Infused Sodium Chloride (Ns) 1,000 mls @ 999 mls/hr IV .Q1H1M ONE Stop: 03/26/25 14:58 Last Infusion: 03/26/25 15:00 Dose: Infused Dexmedetomidine/Sodium Chloride (Precedex Ivpb) 400 mcg in 100 mls @ 4.423 mls/hr IV .[id number] PRN; Protocol PRN Reason: Per PROTOCOL Stop: 04/25/25 14:17 Last Titration: 03/27/25 00:43 Dose: 0.8 mcg/kg/hr, 17.69 mls/hr Lactated Ringer's (Lactated Ringers) 1,000 mls @ 999 mls/hr IV .Q1H1M ONE Stop: 03/26/25 18:51 Last Admin: 03/26/25 18:57 Dose: 999 mls/hr Vancomycin HCl 1,500 mg/ (Sodium Chloride) 500 mls @ 198 mls/hr IV X1 ONE Stop: 03/26/25 22:01 Last Admin: 03/26/25 22:50 Dose: 198 mls/hr Piperacillin Sod/Tazobactam (Sod 3.375 gm/ Sodium Chloride) 50 mls @ 100 mls/hr IV X1 ONE Stop: 03/26/25 20:44 Last Admin: 03/26/25 22:53 Dose: 100 mls/hr Sodium Chloride (Ns) 1,000 mls @ 999 mls/hr IV .Q1H1M ONE Stop: 03/26/25 21:17 Last Infusion: 03/26/25 21:00 Dose: Infused Dexmedetomidine/Sodium Chloride (Precedex Ivpb) 400 mcg in 100 mls @ 4.423 mls/hr IV .[id number] PRN; Protocol PRN Reason: Per PROTOCOL Stop: 04/25/25 14:17 Piperacillin/Tazobactam/Dextrose (Zosyn) 2.25 gm in 50 mls @ 100 mls/hr IV X1 ONE Stop: 03/26/25 21:14 Last Admin: 03/27/25 00:38 Dose: Not Given Piperacillin Sod/Tazobactam (Sod 3.375 gm/ Sodium Chloride) 50 mls @ 12.5 mls/hr IV Q12HR [facility] Stop: 04/03/25 08:59 Piperacillin Sod/Tazobactam (Sod 3.375 gm/ Sodium Chloride) 50 mls @ 12.5 mls/hr IV Q6HR [facility] Stop: 04/03/25 04:59 Last Infusion: 03/27/25 19:00 Dose: Infused Piperacillin/Tazobactam/Dextrose (Zosyn) 3.375 gm in 50 mls @ 12.5 mls/hr IV Q8HR [facility] Stop: 04/03/25 13:59 Last Admin: 03/30/25 06:43 Dose: 12.5 mls/hr Vasopressin/Sodium Chloride (Vasostrict/Ns Ivpb) 20 unit in 100 mls @ 9 mls/hr IV .Q11H7M PRN; Protocol PRN Reason: PER PROTOCOL Stop: 04/26/25 07:13 Last Titration: 03/27/25 08:23 Dose: 0 unit/min, 0 mls/hr Sodium Chloride (Ns) 500 mls @ 999 mls/hr IV .Q31M ONE Stop: 03/27/25 07:53 Last Admin: 03/27/25 10:03 Dose: Not Given Epinephrine/Sodium Chloride (Adrenalin/Ns 16 Mg Ivpb) 16 mg in 250 mls @ 4.373 mls/hr IV .Q24H PRN; Protocol PRN Reason: Per Protocol Stop: 04/26/25 07:41 Last Titration: 03/27/25 08:22 Dose: 0 mcg/kg/min, 0 mls/hr Albumin Human (Albuminar-25 Ivpb) 25 gm in 100 mls @ 100 mls/hr IV QDAY [facility] Stop: 03/30/25 07:45 Last Infusion: 03/27/25 19:00 Dose: Infused Dobutamine HCl/Dextrose (Dobutrex/D5w Ivpb) 500 mg in 250 mls @ 2.799 mls/hr IV .Q24H [facility] Stop: 04/26/25 08:09 Last Admin: 03/28/25 09:43 Dose: Not Given Esmolol HCl (Esmolol In Ns 2000 Mg Ivpb) 2,000 mg in 100 mls @ 139.95 mls/hr IV .Q43M PRN; Protocol PRN Reason: PER PROTOCOL Stop: 04/26/25 08:23 Esmolol HCl (Esmolol In Ns 2000 Mg Ivpb) 2,000 mg in 100 mls @ 13.995 mls/hr IV .Q7H9M PRN; Protocol PRN Reason: PER PROTOCOL Stop: 04/26/25 08:23 Vancomycin/Sodium Chloride (Vancomycin/Ns 500 Mg Ivpb) 100 mls @ 120 mls/hr IV X1 ONE Stop: 03/28/25 10:49 Last Admin: 03/28/25 09:50 Dose: 120 mls/hr Vasopressin/Sodium Chloride (Vasostrict/Ns Ivpb) 20 unit in 100 mls @ 9 mls/hr IV .Q11H7M PRN; Protocol PRN Reason: PER PROTOCOL Stop: 04/27/25 16:26 Potassium Phosphate (Pot Phos 15 Mmol In Ns 250 Ml) 15 mmol in 250 mls @ 62.5 mls/hr IV Q4H [facility] Stop: 03/29/25 01:33 Last Admin: 03/28/25 21:28 Dose: 62.5 mls/hr Vancomycin/Sodium Chloride (Vancomycin/Ns 500 Mg Ivpb) 100 mls @ 120 mls/hr IV X1 ONE Stop: 03/29/25 10:49 Last Admin: 03/29/25 10:11 Dose: 120 mls/hr Vancomycin/Sodium Chloride (Vancomycin/Ns 750 Mg Ivpb) 750 mg in 150 mls @ 120 mls/hr IV X1 ONE Stop: 03/30/25 11:14 Vancomycin/Sodium Chloride (Vancomycin/Ns 500 Mg Ivpb) 100 mls @ 120 mls/hr IV X1 ONE Stop: 03/30/25 10:49 Last Admin: 03/30/25 09:25 Dose: 120 mls/hr Insulin Degludec (Insulin Degludec 5 Unit/0.05 Ml (Per 5 Units)) 18 unit SC X1 ONE Stop: 03/26/25 20:46 Last Admin: 03/26/25 22:55 Dose: 18 unit Insulin Degludec (Insulin Degludec 5 Unit/0.05 Ml (Per 5 Units)) 12 unit SC HS [facility] Stop: 04/26/25 20:59 Last Admin: 03/29/25 21:51 Dose: Not Given Insulin Degludec (Insulin Degludec 5 Unit/0.05 Ml (Per 5 Units)) 18 unit SC HS [facility] Stop: 04/29/25 20:59 Insulin Human Lispro (Insulin Lispro (Admelog) 1 Unit/0.01 Ml Unit) 0 unit SC AC [facility]; Protocol Stop: 04/26/25 07:29 Insulin Human Lispro (Insulin Lispro (Admelog) 1 Unit/0.01 Ml Unit) 0 unit SC Q6HR [facility]; Protocol Stop: 04/25/25 20:29 Insulin Human Lispro (Insulin Lispro (Admelog) 1 Unit/0.01 Ml Unit) 0 unit SC Q6HR [facility]; Protocol Stop: 04/25/25 20:29 Last Admin: 03/27/25 05:40 Dose: 5 unit Insulin Human Lispro (Insulin Lispro (Admelog) 1 Unit/0.01 Ml Unit) 10 unit SC X1 ONE Stop: 03/27/25 04:00 Last Admin: 03/27/25 04:13 Dose: 10 unit Insulin Human Regular (Insulin Hum Regular 1 Unit/0.01 Ml (Per Unit)) 10 unit IV X1 ONE Stop: 03/26/25 12:37 Last Admin: 03/26/25 13:08 Dose: 10 unit Ketamine HCl (Ketamine 50 Mg/Ml Vial 10 Ml) 100 mg IVP X1 ONE Stop: 03/26/25 14:19 Last Admin: 03/26/25 14:39 Dose: 100 mg Midazolam HCl (Midazolam Inj 1 Mg/Ml Vial 2 Ml) 2 mg IV PRN ONE Stop: 03/26/25 11:17 Last Admin: 03/26/25 11:36 Dose: 2 mg Midazolam HCl (Midazolam Inj 1 Mg/Ml Vial 2 Ml) 2 mg IVP X1 ONE Stop: 03/27/25 07:25 Last Admin: 03/27/25 07:24 Dose: 2 mg Midazolam HCl (Midazolam Inj 1 Mg/Ml Vial 2 Ml) 2 mg IVP X1 ONE Stop: 03/28/25 18:11 Last Admin: 03/28/25 18:24 Dose: Not Given Naloxone HCl (Naloxone Inj 1 Mg/Ml Syringe 2 Ml) 0.4 mg IV X1 ONE Stop: 03/26/25 10:40 Last Admin: 03/26/25 10:45 Dose: 0.4 mg Rocuronium [place] (Rocuronium Inj 10 Mg/Ml Vial 10 Ml) 88 mg 1 mg/kg (88 mg) IV X1 ONE Stop: 03/26/25 14:19 Last Admin: 03/26/25 14:45 Dose: 88 mg Sodium Chloride (Sodium Chloride Rt 10% 15 Ml Nebu) 5 ml INH X1 ONE Stop: 03/26/25 15:43 Last Admin: 03/26/25 19:33 Dose: Not Given Assessment & Plan Plan The patient is a 59-year-old female with a past medical history of diabetes mellitus type 2, hypertension, asthma, chronic right leg wounds, history of methamphetamine abuse, HCV positive status, who was admitted to the hospital for septic shock and acute encephalopathy requiring intubation, NSTEMI, heart failure with reduced ejection fraction, acute kidney injury, and concern for vegetations. Airport Operations Specialist Dr. Tamra Nayak was consulted initially, echocardiogram was done which showed normal-sized LV with apical and global hypokinesis, LVEF 40 to 45%, and tricuspid valve regurgitation mildly decreased RV systolic function. The patient was found unconscious at home, patient was brought to hospital [facility] by EMS, Patient was given Narcan with some initial response but then became comatose again, stroke alert was called in the ER, initial head CT showed 2 acute infarction right frontal lobe. Patient was also noted to be febrile and respiratory rate 35 and Hypoxic, patient was started on BiPAP, but later as patient GCS continue to worsen, patient was intubated for airway protection. Patient also received IV fluids in the emergency room as part of sepsis protocol but he was concern for volume overload as he was noted to have bilateral respiratory crackles for which she was given Lasix . Initially fish fryer Dr. Landon Nayak was consulted for possible cardiogenic shock and an echocardiogram was ordered to rule out cardioembolic phenomenon or endocarditis. Given that patient had high-grade fever and the GPC blood cultures were positive, echocardiogram showed evidence of mild LV dysfunction EF 45%, with apical hypokinesis, and definite evidence of tricuspid valve vegetation. Structural fish fryer Dr. Fernandez was consulted for SYLVIE to confirm evidence of vegetation and or presence of shunt. Problems: 1. Acute stroke-rule out cardioembolic source 2. Acute hypoxic respiratory failure on mechanical ventilation 3. 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 Bilateral pulmonary embolism 5. KINJAL/ATN requiring hemodialysis 6. Septic shock 7. Sepsis 8. GPC bacteremia?staph hominis 1/2 bottles, negative repeat blood cultures 9. Pneumonia secondary to Klebsiella pneumonia, Streptococcus pneumonia 10. Acute Encephalopathy 11. LLE DVT 12. NSTEMI , type [address] Oliver also followed the patient, recommended getting SYLVIE, improving glycemic control, no recommendation for anticoagulation at this point due to concern for septic emboli and concern for hemorrhagic conversion. Outbound Sales Professional Dr Zelaya is following the patient for acute on chronic kidney injury, patient currently on hemodialysis. [employer] Operations Specialist Dr. Tamra Nayak is following the patient for acute on chronic heart failure. Structural fish fryer Dr Fernandez is consulted for SYLVIE. Head CT showed finding consistent with acute right lobe infarcts, Brain MRI showed multiple areas of restricted diffusion consistent with embolic type infarcts in the bilateral occipital lobe, bilateral frontal lobe, bilateral parietal lobes. Chest x-ray consistent with bibasilar pneumonia and findings concerning for mild heart failure. Renal ultrasound showed small kidneys with parenchymal scar formation, Carotid duplex study showed 20 to 40% stenosis of right ICA and 0 to 10% stenosis of left ICA. EKG showed sinus rhythm, CT angiogram on 03/28/2025 positive for multiple right lower lobe pulmonary artery and left upper lobe pulmonary artery emboli, infarction versus pneumonia at lung bases. Repeat head CT on 03/30/2025 showed additional focal areas of edema most consistent with hemorrhagic infarcts in the left frontal parietal lobe and left occipital lobe. LE Duplex US shows extensive non occlusive DVT left lower extremity . Patient presents with pulmonary embolism of uncertain origin, possibly secondary to tricuspid valve vegetations or lower extremity deep vein thrombosis (DVT) confirmed on Doppler ultrasound. Due to suspected infective endocarditis with multiple embolic cerebrovascular accidents, anticoagulation with a heparin drip is contraindicated. An inferior vena cava (IVC) filter placement is planned to mitigate further embolic risk. MRI confirmed multiple embolic cerebrovascular accidents, likely secondary to infective endocarditis. Neurology has been consulted. A repeat head CT revealed new lesions concerning for possible hemorrhagic transformation. Urine toxicology was positive for methamphetamine, which may have contributed to the patient's clinical instability. Patient is being treated for sepsis with vancomycin and piperacillin-tazobactam; initial blood cultures show one of two bottles positive for gram-positive cocci, pending further speciation. MRSA nasal screening is positive. Urine culture grew pansensitive Escherichia coli, consistent with a urinary tract infection. Imaging of the right lower extremity ulcer reveals possible cortical thickening on X-ray, prompting recommendation for MRI to evaluate for osteomyelitis. On 03/27/2025 Patient experienced significant troponinemia, likely secondary to demand ischemia in the setting of hemodynamic instability?initial hypotension requiring vasopressors (SBP in 60s), followed by a hypertensive surge (SBP up to 300 mmHg) that resolved after discontinuation of vasopressors. Peak troponin reached 20 ng/mL on 03/27 at 3 PM and is now trending downward, consistent with Type 2 MA. Recommendations: to follow ? Keep pt NPO for SYLVIE today afternoon. ? Keep K > 4 and Magnesium > 2 ? Continue aspirin and high-dose statin therapy. ? Continue appropriate intravenous antibiotics for treatment of possible endocarditis and bacteremia. ? Continue CRRT/HD for ongoing renal failure management. Rest of the management deferred to primary team. Thank you for cardiology consultation. We appreciate the opportunity to participate in this patient's care. Will continue to follow-up on this patient This case was discussed with fish fryer, Dr. Fernandez. Raul Chu MD PG3 Attending Provider Attestation/Addendum I have personally seen and examined the patient separately on the above date of service and discussed the plan of care with the resident. I reviewed the resident Dr. Carter consultation progress note and agree with the resident findings and plan in the note above and have also edited the documentation to reflect my findings and plan. A 59-year-old female with multiple comorbidities as noted above presented to the hospital for further evaluation of acute encephalopathy and was found unresponsive at home. Had some response to Narcan but still was comatose and unresponsive on arrival. Patient was intubated and placed on mechanical ventilation and admitted to the ICU. Patient also had NSTEMI with troponins elevated up to 20 along with mild systolic congestive heart failure with an EF of 40 to 45%. Patient was also being treated for septic shock. Further evaluation with a CT head showed acute right sided infarct and eventually brain MRI was done which showed embolic type infarcts in the bilateral occipital lobe bilateral frontal lobe and bilateral bilateral lobes. Patient had CT chest which also showed multiple right lower lobe pulmonary artery as well as left upper lobe pulmonary artery emboli along with infectious versus pneumonia at lung bases. Duplex showed extensive nonocclusive DVT of the left lower extremity. Carotid duplex study showed mild disease. EKG with normal sinus rhythm and telemetry showed the same. Cardiology Dr. Tamra Nayak was consulted for further evaluation of the elevated troponins as well as the heart failure. An echocardiogram was performed to rule out cardioembolic phenomenon for the stroke and showed questionable evidence of vegetation on the tricuspid valve and patient also had high-grade fever along with GPC positive blood cultures. EF is 40 to 45% with some apical hypokinesis but overall image quality was poor given the patient's intubated status and on mechanical ventilation. I was consulted for further evaluation of cardioembolic source for acute bilateral stroke. Patient has high clinical probability of cardioembolic stroke and will need to rule out left-sided sedations elevated as any paradoxical embolism of the right side vegetations. Also will need to rule out any kind of PFO or ASD. Patient has an appropriate indication for the SYLVIE. Patient unable to provide much history as she is intubated and sedated. She does have a history of positive methamphetamine abuse. Most of the history was obtained from chart review There is no history of any swallowing problems or any kind of esophageal interventions or previous surgeries. No evidence of any previous gastric ulcers bleeding and any other hematemesis or hematochezia. No issues with anesthesia as patient already been intubated and sedated. Patient will benefit from the SYLVIE and discussed with the primary fish fryer Dr. Nayak as well as the ICU team Dr. Nayak and decision was made to perform the SYLVIE. Patient has been n.p.o. since this morning and the tube feeds have been stopped. Will plan for the SYLVIE later this afternoon and will follow-up with results. Joshua Fernandez M.D. Interventional Cardiology
[2025-03-30 15:23] LABS: HIV (1&2) Antibody Rapid Non-Reactive
--- NOTE | 2025-03-30 15:28 | PD.INTPROG ---
Documentation for date of: 03/30/25 Subjective Subjective Interval history: This is a 59-year-old female who presented to the ER on 26 March. She was brought to the ER for altered mentation. She was found unresponsive lying on the bathroom floor. Her last known well time was 1030 night prior. Upon arrival to the ER she was found to be altered slightly combative. However her mental status declined and she was ultimately intubated for airway protection with a GCS less than 8. She was also noted to have rhabdomyolysis and acute kidney injury. MRI revealed multiple embolic infarcts bilaterally throughout all hemispheres. She was initially hypotensive and given IV fluids for resuscitation however she remained hypotensive requiring vasopressor support. Cultures were obtained. Urine culture was positive for E. coli. 1 out of 2 blood culture on arrival was positive for GPC's current speciation still pending. She is on broad-spectrum antibiotic coverage. She has had no urinary output and has required CRRT. 03/28-her echocardiogram came back overnight which shows a decreased EF of 40 to 45% along with vegetations on tricuspid valve. She remains afebrile with a Tmax of 100.2 yesterday afternoon. She has had minimal urinary output. She does wake up and become restless and agitated when sedation is lightened. 03/29-no acute overnight events, patient underwent CT angio of the chest overnight which demonstrated multiple PEs both on the left and right. Continues to be in a virtually anuric state with minimal urinary output and approximately 5 cc an hour. She is afebrile. She is agitated when sedation is lightened however does not follow commands 03/30-no acute overnight events, this morning when sedation held the patient is able to follow commands. Remains anuric, afebrile Critical Care Note Critical care time (min.): 53 Exam Vital Signs Temp Pulse Resp BP Pulse Ox O2 Del Method O2 Flow Rate 96.6 F L 61 31 H 92/56 L 96 Mechanical Ventilation 15 03/30/25 14:04 03/30/25 15:00 03/30/25 15:00 03/30/25 15:00 03/30/25 15:00 03/30/25 12:15 03/26/25 10:59 FiO2 40 03/30/25 14:04 Narrative Exam General-no acute distress, GCS 11 T, obese HEENT-normocephalic, atraumatic, sclera icteric, pupils equal and reactive, ET tube and OG tube in place Chest-diminished with occasional expiratory wheeze, heart regular rhythmic, no bridge murmurs auscultated at time of exam, no increased work of breathing Abdomen-obese, soft, nontender, bowel sounds present, no rebound or guarding Extremities-improving edema bilateral lower extremities, improving ischemia of the left toes where the left great 3rd and 5th toe have began to demarcate, improved ischemia of the right hand, ulcerated lesion which does not appear grossly infected on the right lower extremity Vent AC VC Drips Precedex propofol Fentanyl Physical Exam Completion Physical Exam Complete?: Yes Objective - [employer] Labs 03/30/25 12:39 03/30/25 05:37 Labs: Laboratory Results - last 24 hr 03/27/25 03/30/25 03/30/25 02:17 04:50 05:37 WBC 11.4 H D RBC 3.34 L Hgb 9.7 L Hct 30.5 L MCV 91 MCH 29.0 MCHC 31.8 RDW Std Deviation 50.6 H Plt Count 137 L Neut % (Auto) 71 Lymph % (Auto) 9 L Edmunds % (Auto) 6 Eos % (Auto) 1 Baso % (Auto) 0 Neut # (Auto) 8.0 H Lymph # (Auto) 1.1 Edmunds # (Auto) 0.6 Eos # (Auto) 0.1 Baso # (Auto) 0.0 Immature Gran # (Auto) 1.52 H Absolute Nucleated RBC 0.05 H Immature Gran % 13 H Nucleated RBC % 0 ESR Puncture Site Arterial Line ABG pH 7.42 ABG pCO2 40 ABG pO2 66 L ABG HCO3 26 ABG O2 Saturation 93 ABG Base Excess 2 FiO2 40 Sodium 136 Potassium 3.6 D Chloride 99 Carbon Dioxide 24.9 Anion Gap 12 BUN 25 H Creatinine 2.4 H D Estim Creat Clear Calc 27.4 L eGFR 23 L BUN/Creatinine Ratio 10 L Glucose 203 H Calculated Osmolality 282 Calcium 8.1 L Corrected Calcium 9.0 Total Bilirubin 0.5 AST 64 H ALT 59 H Alkaline Phosphatase 98 D C-Reactive Prot, Quant Total Protein 5.0 L Albumin 2.9 L Globulin 2.1 L Albumin/Globulin Ratio 1.4 Tumor Marker AFP Carcinoembryonic Ag Random Vancomycin 12.6 HIV 1&2 Antibody Rapid Misc Test Result See Apr Rpt 03/30/25 12:39 WBC RBC Hgb 10.8 L Hct 34.1 L MCV MCH MCHC RDW Std Deviation Plt Count Neut % (Auto) Lymph % (Auto) Edmunds % (Auto) Eos % (Auto) Baso % (Auto) Neut # (Auto) Lymph # (Auto) Edmunds # (Auto) Eos # (Auto) Baso # (Auto) Immature Gran # (Auto) Absolute Nucleated RBC Immature Gran % Nucleated RBC % ESR 79 H Puncture Site ABG pH ABG pCO2 ABG pO2 ABG HCO3 ABG O2 Saturation ABG Base Excess FiO2 Sodium Potassium Chloride Carbon Dioxide Anion Gap BUN Creatinine Estim Creat Clear Calc eGFR BUN/Creatinine Ratio Glucose Calculated Osmolality Calcium Corrected Calcium Total Bilirubin AST ALT Alkaline Phosphatase C-Reactive Prot, Quant 22.1 H Total Protein Albumin Globulin Albumin/Globulin Ratio Tumor Marker AFP 2.00 Carcinoembryonic Ag 4.8 Random Vancomycin HIV 1&2 Antibody Rapid Non-Reactive Misc Test Result Assessment & Plan Problem List (1) Ischemic cerebrovascular accident (CVA): Status: Acute (2) Uncontrolled diabetes mellitus: Status: Acute (3) Pneumonia: Status: Acute Additional Assessment Additional Assessment: In summary this is a 59-year-old female admitted to the ICU with septic shock, acute renal failure and acute respiratory failure a/p [employer] Encephalopathy- multifactorial and related to both metabolic issues and mult acute embolic strokes - Sedation vacation performed and patient found to be able to follow commands 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 -Neurology consulted -Repeat head CT read as new lesions question of hemorrhage Drug use-utox pos for meth - Unclear if there is any IVDA CV Endocarditis-1 culture is positive for GPC's identified as Staph hominis therefore likely contaminant -Other 3 cultures have been negative to date -Echocardiogram shows vegetations on the tricuspid valve -Tricuspid valve vegetations do not readily explain the patient's bilateral embolic CVAs -Patient pending a SYLVIE today if this is negative will obtain a CT angio of the aorta Troponinemia-this was in the setting of shock followed by extreme hypertension -Patient had had a systolic blood pressure in the 60s on vasopressors and then systolic blood pressure increased to 300 which rapidly dropped once pressors were held -Patient's troponin of 20 at 3 PM 03/27 likely related to this event now trending down -On aspirin and statin - EKG obtained -Discussed with cardiology Shock-currently resolved -Had been distributive secondary to sepsis -Bedside echo was performed which showed a bit of a decrease in the patient's contractility -Formal echocardiogram obtained which showed a EF of 40 to 45% along with a tricuspid vegetation -Patient is not fluid responsive Ischemic left toe-this has been delineated and does not appear to be increasing -May be secondary to vasopressors versus embolic shower to the foot - arterial doppler did not show occlusion or severe PAD - Will eventually need surgical consultation for possible amputation of toe Resp Acute respiratory failure-patient is intubated on mechanical ventilation -Patient had multiple PEs that were seen - CO2 on ABG is 45 and her end-tidal CO2 is 20 - Patient has significant space - CT angio done last night shows mult b/l PE -> LE venous doppler - Multiple PEs explain the patient's significant space - Today patient tolerating PSV with good weaning parameters Pulmonary embolism-unclear if this is from patient's tricuspid vegetation versus a lower extremity Doppler - Given the question of infective endocarditis resulting in multiple embolic CVAs patient is not a great candidate for a heparin drip -DVT noted on lower extremity Doppler - Will need IVC filter Pneumonia-patient's cultures grew out strep pneumo and Klebsiella pneumo both are pansensitive -Continue for 7 days of antibiotics Renal Acute renal failure-in the setting of sepsis, shock and rhabdomyolysis -Likely secondary to rhabdo with a component of sepsis -Given her embolic CVAs cannot rule out embolic event to the kidneys as well - No significant renal recovery as of yet - Continues on intermittent hemodialysis Rhabdomyolysis-improved GI GI prophylaxis-currently on a PPI Hepatitis C-this is a new diagnosis and will need follow-up as an outpatient Transaminitis-patient's LFTs were elevated upon arrival - This is in the setting of shock and therefore may be related to an ischemic hepatitis - Patient does also have positive hepatitis C therefore the elevated LFTs may also be due to active hep C - Currently improving Nutrition-tolerating tube feeds Endo Diabetes-poorly controlled, she has been started on long-acting along with a sliding scale - Adjust as needed Heme Leukocytosis-likely secondary to underlying infection -More or less stable Anemia-patient had a drop in his hemoglobin and this is from blood loss on CRRT yesterday -Patient had issues with clotting on the CRRT machine and had a significant blood loss -Hemoglobin is 11.1 no indication for transfusion DVT prophylaxis-heparin 5000 units every 8 ID Sepsis-currently on vancomycin and Zosyn. Initial blood cultures 1 out of 2 bottles was positive for GPC however further edification are still pending. Her MRSA swab is positive UTI-her urine culture grew out E. coli which is pansensitive Right lower extremity ulcer- x-ray performed and shows question of cortical thickening and recommended MRI to eval for osteo Case discussed with ICU team and nephrology Labs, imaging and records reviewed Approximately 53 critical care minutes required for evaluation, exam, review, intervention, discussion formation plan of care for this critically ill patient with shock and respiratory failure at high risk for further ongoing decompensation Provider Notation Provider Notation: Although this document has been carefully reviewed, there may still be some phonetic and other typographical errors. These errors are purely grammatical due to imperfections in the software program and should not be construed in any way to compromise the substance of the patient's medical care during this visit. Thank you for the opportunity and privilege in assisting you with this patient's care and management.
[2025-03-30] MEDS: fentaNYL CIT INJ 50 mCg/ML AMP 2ML 100 MCG IVP (15:38)
[2025-03-30] MEDS: MIDAZOLAM INJ 1 MG/ML VIAL 2 ML 4 MG IVP (15:38)
--- NOTE | 2025-03-30 17:23 | PC.CC ---
Addendum entered by Saqib Cristobal RN 03/30/25 19:28: confirmed with Nanci at [facility] receipt of images. She stated she will push it through. She will reach out if she needs anything else. Informed my phone will roll over to the house sup or she can call the unit directly. contact info provided. Addendum entered by Saqib Cristobal RN 03/30/25 19:23: completed uploading images via [employer]. transfer packet initiated w/ 2 CDS. Packet left on Transfer nurse desk. Handoff report given to ICU charge Kari. Original Note: received transfer request for [facility] for PFO repair. Pt has mult suresh infarct in brain and ext BLE Dvt's and PE's. pt is intubated. Clinicals sent to [facility] TC.
--- NOTE | 2025-03-30 17:28 | PD.RESPRO ---
Documentation for date of: 03/30/25 Subjective Subjective Interval history: Patient is seen and examined at bedside in the ICU. Noted no acute overnight events. Patient is still anuric. Vitals are stable and patient is coming down on vasopressor needs and stopped in the morning. Still on sedation, propofol, fentanyl and Precedex. Noted to have episodes of bradycardia when patient is moved around. Labs done this morning showed WBC 11.4, hemoglobin 10.8, platelets 137. BUN 25, creatinine 2.4, glucose 203, AST and ALT are continuously downtrending. Patient appears to be responding when weaned off sedation but is not able to follow the commands. Received HD today. SYLVIE is done by Dr. Fernandez and noted to have atrial septal aneurysm, PFO which is likely cause of multiple embolic stroke. Repeat head CT done this morning showed new infarcts and hemorrhagic transformation. Patient could not be anticoagulated in view of hemorrhagic transformation. Patient was pending IVC filter placement today but could not be done as Dr. Orona is not available. Trying to transfer the patient out as patient needs PFO closure for further prevention of strokes. Exam Vital Signs Temp Pulse Resp BP Pulse Ox O2 Del Method O2 Flow Rate 96.6 F L 66 27 H 144/72 H 96 Mechanical Ventilation 15 03/30/25 14:04 03/30/25 15:31 03/30/25 15:31 03/30/25 15:31 03/30/25 15:31 03/30/25 12:15 03/26/25 10:59 FiO2 40 03/30/25 14:04 Narrative Exam General: sedated and mechanically ventilated HEENT: Normocephalic, atraumatic, mucous membranes moist. Heart: Regular rate and rhythm, no murmurs. Lungs: Clear to auscultation with no wheezing or crackles. Abdomen: Soft, nondistended, nontender, positive bowel sounds. ?No guarding or rebound tenderness. Neurologic: sedated and mechanically ventilated Extremities: Bilateral pitting 4+ pedal edema extending up to the knees. Noted scar on the left knee likely from TKR. Chronic ulcer 5 x 6 cm is noted on right lateral lower extremity approximately 10 cm below the knee. Skin: Noted tissue pressure injuries on right thigh and left thigh. Objective Labs 03/30/25 12:39 03/30/25 05:37 Labs: Laboratory Results - last 24 hr 03/27/25 03/30/25 03/30/25 02:17 04:50 05:37 WBC 11.4 H D RBC 3.34 L Hgb 9.7 L Hct 30.5 L MCV 91 MCH 29.0 MCHC 31.8 RDW Std Deviation 50.6 H Plt Count 137 L Neut % (Auto) 71 Lymph % (Auto) 9 L Preston % (Auto) 6 Eos % (Auto) 1 Baso % (Auto) 0 Neut # (Auto) 8.0 H Lymph # (Auto) 1.1 Preston # (Auto) 0.6 Eos # (Auto) 0.1 Baso # (Auto) 0.0 Immature Gran # (Auto) 1.52 H Absolute Nucleated RBC 0.05 H Immature Gran % 13 H Nucleated RBC % 0 ESR Puncture Site Arterial Line ABG pH 7.42 ABG pCO2 40 ABG pO2 66 L ABG HCO3 26 ABG O2 Saturation 93 ABG Base Excess 2 FiO2 40 Sodium 136 Potassium 3.6 D Chloride 99 Carbon Dioxide 24.9 Anion Gap 12 BUN 25 H Creatinine 2.4 H D Estim Creat Clear Calc 27.4 L eGFR 23 L BUN/Creatinine Ratio 10 L Glucose 203 H Calculated Osmolality 282 Calcium 8.1 L Corrected Calcium 9.0 Total Bilirubin 0.5 AST 64 H ALT 59 H Alkaline Phosphatase 98 D C-Reactive Prot, Quant Total Protein 5.0 L Albumin 2.9 L Globulin 2.1 L Albumin/Globulin Ratio 1.4 Tumor Marker AFP Carcinoembryonic Ag Random Vancomycin 12.6 HIV 1&2 Antibody Rapid Misc Test Result See Apr Rpt 03/30/25 12:39 WBC RBC Hgb 10.8 L Hct 34.1 L MCV MCH MCHC RDW Std Deviation Plt Count Neut % (Auto) Lymph % (Auto) Preston % (Auto) Eos % (Auto) Baso % (Auto) Neut # (Auto) Lymph # (Auto) Preston # (Auto) Eos # (Auto) Baso # (Auto) Immature Gran # (Auto) Absolute Nucleated RBC Immature Gran % Nucleated RBC % ESR 79 H Puncture Site ABG pH ABG pCO2 ABG pO2 ABG HCO3 ABG O2 Saturation ABG Base Excess FiO2 Sodium Potassium Chloride Carbon Dioxide Anion Gap BUN Creatinine Estim Creat Clear Calc eGFR BUN/Creatinine Ratio Glucose Calculated Osmolality Calcium Corrected Calcium Total Bilirubin AST ALT Alkaline Phosphatase C-Reactive Prot, Quant 22.1 H Total Protein Albumin Globulin Albumin/Globulin Ratio Tumor Marker AFP 2.00 Carcinoembryonic Ag 4.8 Random Vancomycin HIV 1&2 Antibody Rapid Non-Reactive Misc Test Result ABG Interpretation ABG results: 03/26/25 03/26/25 03/26/25 11:18 11:44 16:23 ABG pH 7.27 L Cancelled ABG pCO2 40 Cancelled ABG pO2 146 H Cancelled ABG HCO3 18 L Cancelled ABG O2 Saturation 100 H Cancelled ABG Base Excess -8 L Cancelled VBG pH 7.19 L VBG pCO2 48 VBG pO2 37 VBG Base Excess -10 L 03/26/25 03/27/25 03/27/25 18:43 00:17 03:42 ABG pH 7.16 L* D 7.24 L Cancelled ABG pCO2 58 H D 44 D Cancelled ABG pO2 68 L D 80 L Cancelled ABG HCO3 21 19 L Cancelled ABG O2 Saturation 90 L 96 Cancelled ABG Base Excess -9 L -8 L Cancelled VBG pH VBG pCO2 VBG pO2 VBG Base Excess 03/27/25 03/27/25 03/27/25 04:04 07:55 18:48 ABG pH 7.26 L 7.30 L ABG pCO2 43 37 ABG pO2 83 174 H D ABG HCO3 19 L 18 L ABG O2 Saturation 97 101 H ABG Base Excess -7 L -8 L VBG pH 7.21 L 7.31 L VBG pCO2 49 48 VBG pO2 54 52 VBG Base Excess -8 L -2 03/27/25 03/28/25 03/28/25 19:07 04:06 13:37 ABG pH 7.36 7.38 7.41 ABG pCO2 41 45 44 ABG pO2 79 L D 73 L 105 D ABG HCO3 23 27 H 27 H ABG O2 Saturation 97 96 99 H ABG Base Excess -2 1 2 VBG pH VBG pCO2 VBG pO2 VBG Base Excess 03/29/25 03/30/25 04:45 04:50 ABG pH 7.38 7.42 ABG pCO2 45 40 ABG pO2 72 L D 66 L ABG HCO3 27 H 26 ABG O2 Saturation 98 93 ABG Base Excess 1 2 VBG pH VBG pCO2 VBG pO2 VBG Base Excess Quality Measures Quality Measures VTE prophylaxis Assessment & Plan Assessment Current Active Medications: Generic Name Dose Route Start Last Admin Trade Name Frejulissa PRN Reason Stop Dose Admin Acetaminophen 650 mg 03/26/25 18:58 Acetaminophen 325 Mg Tablet PO 04/25/25 18:57 Q4HR PRN Pain Scale 1-3 fever >100.4 Albuterol/Ipratropium 3 ml 03/27/25 01:00 03/30/25 12:47 Albuterol/Ipratropium (Duoneb) Rt Jennifer 3 Ml Nebu INH 04/26/25 00:59 3 ml Q6HRRT CRIS Administration Aspirin 81 mg 03/28/25 10:00 03/30/25 09:25 Aspirin 81 Mg Chew NG 04/27/25 09:59 81 mg QDAY CRIS Administration Atorvastatin Calcium 80 mg 03/26/25 21:00 03/29/25 21:38 Atorvastatin Calcium 20 Mg Tablet PO 04/25/25 20:59 80 mg HS CRIS Administration Atropine Sulfate 1 mg 03/30/25 10:33 Atropine Sulf Inj 0.1 Mg/Ml Syr 10 Ml IV 04/29/25 10:32 X1 PRN Bradycardia < 35 for greater t Dextrose 25 ml 03/26/25 20:20 Dextrose 50%-Water Inj 50 Ml Syringe IV 04/25/25 20:19 Q15MIN PRN BG 50-70 responsive npo pt Dextrose 50 ml 03/26/25 20:20 Dextrose 50%-Water Inj 50 Ml Syringe IV 04/25/25 20:19 Q15MIN PRN BG <50 OR BG <70 & pt unresponsive Glucagon 1 mg 03/26/25 20:20 Glucagon Inj 1 Mg Vial IM Q15MIN PRN BG <70, and no IV access Heparin Sodium (Porcine) 5,000 unit 03/27/25 14:00 03/30/25 13:41 Heparin Sod Inj 5000 Unit/Ml Vial SC 04/10/25 13:59 5,000 unit Q8HR CRIS Administration Heparin Sodium (Porcine) 2,600 unit 03/28/25 19:33 03/30/25 14:24 Heparin Sod Inj 1000 Unit/Ml Vial 10 Ml INDWELLCAT 04/11/25 19:32 2,600 unit X1 PRN Administration DIALYSIS Norepinephrine/Dextrose 8 mg in 250 mls @ 8.292 mls/hr 03/26/25 19:50 03/30/25 17:00 Levophed In D5w 8mg/250ml IV 04/25/25 19:49 0.01 mcg/kg/min .Q24H PRN 1.658 mls/hr PER PROTOCOL Titration Protocol 0.05 MCG/KG/MIN Dexmedetomidine/Sodium Chloride 400 mcg in 100 mls @ 4.423 mls/hr 03/26/25 23:53 03/30/25 17:00 Precedex Ivpb IV 04/25/25 14:17 1.4 mcg/kg/hr .[id number] PRN 30.958 mls/hr Per PROTOCOL Titration Protocol 0.2 MCG/KG/HR Fentanyl Citrate 2,500 mcg in 250 mls @ 2.5 mls/hr 03/26/25 23:53 03/30/25 11:24 Sublimaze Inj 2,500 Mcg/250 Ml Bag IV 03/31/25 23:52 0 mcg/hr .Q24H PRN 0 mls/hr PER PROTOCOL Titration Protocol 25 MCG/HR Propofol 1,000 mg in 100 mls @ 2.799 mls/hr 03/27/25 17:34 03/30/25 11:24 Diprivan Ivpb IV 04/26/25 17:33 0 mcg/kg/min .Q24H PRN 0 mls/hr PER PROTOCOL Titration Protocol 5 MCG/KG/MIN Epinephrine/Sodium Chloride 16 mg in 250 mls @ 4.416 mls/hr 03/28/25 16:28 Adrenalin/Ns 16 Mg Ivpb IV 04/27/25 16:27 .Q24H PRN Per Protocol Protocol 0.05 MCG/KG/MIN Albumin Human 25 gm in 100 mls @ 100 mls/min 03/29/25 10:36 03/29/25 14:38 Albuminar-25 Ivpb IV 100 mls/min PRN PRN Administration DIALYSIS Ceftriaxone Sodium 2 gm/ 50 mls @ 100 mls/hr 03/30/25 10:45 03/30/25 11:26 Sodium Chloride IV 04/06/25 10:44 100 mls/hr QDAY CRIS Administration Insulin Degludec 20 unit 03/30/25 21:00 Insulin Degludec 5 Unit/0.05 Ml (Per 5 Units) SC 04/29/25 20:59 HS CRIS Insulin Human Lispro 0 unit 03/27/25 06:33 03/30/25 13:12 Insulin Lispro (Admelog) 1 Unit/0.01 Ml Unit SC 04/25/25 20:29 Not Given Q6HR [facility] Protocol Mupirocin 0 gm 03/29/25 08:30 03/30/25 06:04 Mupirocin Oint 2% 15 Gm Tube TOP 04/05/25 08:29 1 applicatio TID [facility] Administration Pantoprazole Sodium 40 mg 03/26/25 19:15 03/30/25 09:25 Pantoprazole Inj 40 Mg Vial IVP 04/25/25 19:14 40 mg QDAY [facility] Administration Pharmacy Consult 1 each 03/26/25 19:15 03/30/25 09:26 Vancomycin Pharmacy To Dose 1 Each Each IV 04/25/25 19:14 Not Given QDAY [facility] Plan A 59-year-old female with a past medical history of diabetes, hypertension, asthma, and a chronic right leg wound was brought to the Emergency Department after being found unresponsive. Patient found to have embolic type stroke. 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 He informed patient's sister and mother about her condition and they came back to home around 9 AM and patient is still unconscious for which EMS is called and patient is brought to the ED. - En route to the hospital, in view of respiratory rate of 4 patient was given multiple doses of Narcan total of 8 mg that resulted in improving the mentations following which patient appears to be more alert - At the time of examination in the ED, patient is able to follow some commands appropriately but appeared very lethargic. Dx: - Labs at the time of admission showed WBC 13.1, bicarb 18.1, anion gap 19, glucose 550, lactate 4.7, total bilirubin 1.6, AST 146, ALT 61, total creatinine kinase 9752, procalcitonin 43.23 - Urine analysis showed turbid urine with 2+ proteinuria, 3+ glucosuria, 1+ ketones, 3+ blood, 10 RBC, 112 WBC, 10 squamous epithelial cells, 3+ calcium oxalate crystals, 4+ urine bacteria - Urine toxicology tested positive for amphetamines and marijuana - CT head showed abnormal low-density areas in the right frontal lobe - Brain MRI with MR angiogram showed multiple embolic foci of restricted diffusion bilateral occipital lobes, bilateral frontal and bilateral parotid lobes, most consistent with acute infarct Rx: - Will continue sedation for now as patient is becoming agitated and pulling out the tubes and becoming dyssynchronous with the ventilator. - RAAS score = -2 - Patient should be ideally on anticoagulation but repeat CT head done on 03/30/2025 showed hemorrhagic infarcts due to which patient cannot be placed on anticoagulation. Planning to place IVC filter tomorrow RRx: - If despite all the underlying conditions are treated and patient is still altered, we will repeat brain imaging # CVA - bilateral embolic stroke - Patient came in with altered sensorium and head CT at the time showed multiple bilateral infarcts, likely embolic - Patient has extensive DVT in the left lower extremity also noted to have pulmonary embolism, patient might be having embolism through PFO and reaching the systemic circulation. Dx: - Echocardiogram - Normal size left bentricle with mild apical and global hypokinesis LVEF 40-45%. Evidence of Tricuspid valve vegetation suggestive of endocarditis The RV is normal in size. The right ventricular systolic function is mildly decreased. Aortic valve sclerosis thickened wih mild aortic regurgitation. Mitral valve thickening with mild mitral regurgitation. - SYLVIE was done on 03/30/2025 that confirmed no vegetations noted to have atrial aneurysm bulging into left atrium, bubble study done showed PFO -Venous Doppler of left lower extremity extensive chronic nonocclusive DVT involving the common femoral left superficial femoral, popliteal, peroneal, posterior tibial and greater saphenous veins. Tubular structures in the right popliteal fossa 6.0 cm in left popliteal fossa 4.6 cm which may represent popliteal cysts - TSH is 2.43, A1c - 13.6, B12 529 Rx: - Will continue aspirin and atorvastatin for now - Cannot start on heparin drip as patient noted to have hemorrhagic infarcts on repeat CT head done on 03/30/2025 - IVC filter placement is ordered, pending - Will transfer outpatient for further management. CVS: # Shock, resolved DDx: Combined cardiogenic and septic shock - At the time of admission, patient was noted to have bilateral lower extremity edema and bilateral diffuse inspiratory crackles -possible heart failure in the setting of methamphetamine abuse, diabetes, hypertension - Also noted to have temperature of 101.8 ?F at the time of admission, likely due to some ongoing infection. Fits into 2/3 qsofa criteria. Noted to have GCS less than 15 and respiratory rate 35/min. - Suspecting sepsis worsening the underlying heart failure resulting in suspected possible combined septic and cardiogenic shock. - Patient Lasix 60 mg and 2 L bolus in the ED Dx: - Labs at the time of admission showed WBC 13.1, procalcitonin 43.23 - Urinalysis showed turbid urine with 2+ proteinuria, 3+ glucosuria, 112 WBC, 4+ bacteria suggestive of UTI - Blood cultures and urine cultures were sent, E.coli in the urine and pansensitive, Blood cultures is negative - Echocardiogram is ordered Rx: - Patient is started on Levophed and weaned off completely as of 03/30/2025 - Initially patient was started on vancomycin and Zosyn [03/27-03/30], discontinued Vanco and Zosyn, started on ceftriaxone 2 g IV once daily [03/30- - Will continue to monitor vitals # NSTEMI, likely type II - In the setting of demand ischemia - Troponin at the time of admission is 0.427, peaked at 20.920 and later down trended - EKG did not show any ST-T wave changes Plan - Will continue telemetry monitoring - Water Main Installer Helper, Dr. Nayak is consulted and will follow the recommendations # HFrEF, EF 40 to 45% - Unsure whether patient is regular methamphetamine user, as family members is not aware of the use - Patient also have severe uncontrolled diabetes mellitus, which could also contribute to the ischemic heart disease and CHF Plan - Patient should be started on GDMT but in the setting of ongoing acute kidney injury and recovering shock, will hold GDMT for now - Once the patient is hemodynamically stable and off the ventilator, will recommend to do repeat echocardiogram and if still found to have HFrEF, needed to be started on GDMT - Removing fluid through CRRT Pulmoary # Pulmonary embolism - Patient was noted to have mismatch between end-tidal CO2 and arterial CO2, also noted to have increased oxygen requirements on the ventilator for which CTA chest was ordered on 03/28/2025 - CTA chest - Positive for multiple right lower pulmonary artery filling defects. Positive for left upper lobe pulmonary artery filling defects. No emboli in the main pulmonary artery segments Pneumonia versus infarction in both lower lung zones - Echocardiogram did not show any RV strain, though patient noted to have elevated troponin with peak level at 20.920, later down trended - EKG did not show any signs suggestive of pulmonary embolism Rx: - Patient cannot be anticoagulated as of now as patient had hemorrhagic infarcts in the brain - Pending IVC filter by Dr. Murillo, will reach out to him again tomorrow - Patient is not a candidate of mechanical thrombectomy as of now and does not seem to be in right heart failure # Acute hypoxic respiratory failure # Respiratory acidosis, resolved DDx: Sepsis, acute encephalopathy, pulmonary edema, pulmonary embolism, combined - Per patient family, patient does not have any previous history of respiratory problems and is not using any inhalers. Not a smoker Dx: - ABG at the time of admission showed pH 7.16, pCO2 58, pO2 68, FiO2 100% - Repeat ABG done on 03/27/2024 showed pH 7.3, pCO2 37, bicarb 18. - Repeat ABGs done after 03/28/2025 is within normal limits - CTA chest Positive for multiple right lower pulmonary artery filling defects. Positive for left upper lobe pulmonary artery filling defects. No emboli in the main pulmonary artery segments Pneumonia versus infarction in both lower lung zones Rx: - Patient is intubated, sedated and placed on mechanical ventilator - Though patient had pulmonary embolism, patient oxygen needs on the ventilator is coming down and noted to have only mild pulmonary embolism. - Planning to place patient on pressure support followed by SBT and if patient passes it, we will try to extubate her tomorrow if the transfer process is still pending by that time - Will continue Precedex drip for now # History of asthma - Unclear if patient is using inhalers or if she has recent exacerbations - Currently does not appear to be in any exacerbations GI # Transaminitis, resolving # Hyperbilirubinemia, resolved - At the time of admission patient was found to have bilirubin of 1.6, AST 146, ALT 61 ---> 8/18, AST 64, ALT 59 DDx: Fatty liver versus chronic liver disease versus viral hepatitis versus secondary to ongoing septic shock and possible suspected ischemia Dx: - Tested positive for hepatitis C antibody - Liver ultrasound showed 10 mm gallstone, CBD enlarged 0.6 cm, liver 18.5 cm fatty infiltration Rx: - Will continue to monitor liver functions - Underlying shock - resolved - Patient has to follow-up with education administrator on discharge on outpatient basis for follow-up on hepatitis C, currently does not suspect any active viral hepatitis # Renal # KINJAL DDx: Prerenal versus ATN in the setting of shock versus possible cardiorenal syndrome versus CKD in the setting of diabetes mellitus and hypertension versus embolic versus rhabdomyolysis - Patient does not follow-up any primary care doctor and unsure of her baseline kidney functions Dx: - Patient noted to have decreased urine output and oliguric since the time of admission - Creatinine at the time of admission is 2.8 --> 03/30, 2.4 - Patient is still anuric Rx: - Will continue to monitor renal functions - Will continue to monitor urine output - Will renally dose medication and avoid nephrotoxic medications - Rag Cutting Machine Feeder, Dr. Zelaya is consulted and patient is started on CRRT through dialysis catheter placement in the right IJV on 03/27 - Received HD on 03/29, 03/30 # High anion gap metabolic acidosis, resolved # Lactic acidosis, resolved - Likely in the setting of ongoing shock, likely due to sepsis - At the time of admission, anion gap is 19, lactate is 4.7 ---> 03/30, AG 12, Lactate 1.8 - Anion gap improved on day of admission and lactic acidosis is slowly improving after starting CRRT Rx: - Received CRRT on 03/27 and 03/28, HD on 03/29, 03/30 - Will continue to monitor lab values # Rhabdomyolysis, resolving - Patient happened to be on the floor lying down for 4 to 5 hours - CT head at the time of presentation is 9752 and received 2 L of fluid in the ED, as patient is fluid overloaded cannot give more fluids - CK levels continue to trend down slowly Rx: - Will continue to monitor CK levels Endo # Uncontrolled type 2 diabetes mellitus - Patient is not following any primary care provider and not taking medications properly per patient's family - Blood glucose at the time of admission is 550 for which patient was given 10 units of lispro in the ED - The patient had high anion gap metabolic acidosis, tested negative for beta-hydroxybutyrate and DKA is ruled out Plan - HbA1c sent - 13.6 - Started on insulin lispro sliding scale and degludec 12 units subcutaneous at bedtime, increased to 18 units on 03/30 bassed on morning blood sugars - Will titrate degludec according to FBS Hematology # Leukocytosis, resolving - WBC at the time of admission is 13.1, likely due to active ongoing sepsis ---> 03/30, 11.4 Plan - Will continue to monitor CBC and will treat with antibiotics ID # Severe sepsis - Patient presented 2/3 qSOFA criteria including GCS less than 15 and respiratory rate 35 - Blood culture, urine culture were sent - Urinalysis is suggestive of UTI, likely the source of infection - E.Coli , pansensitive Plan - Stopped Zosyn and vancomycin on 03/30, will continue ceftriaxone 2g IV (03/30 - # UTI - Urinalysis at the time of admission is significant for urinary tract infection - Urine culture showed E. coli which is pansensitive Plan - Will continue ceftriaxone Musculoskeletal # Chronic right leg wound - Likely from uncontrolled diabetes mellitus and venous congestion - On physical examination, noted 5 x 6 cm wound with well-healing granulation tissue Plan - Will refer to wound care - Arterial Doppler was ordered which showed no PAD in bilateral lower extremities Health Maintenance: Diet: OG tube feeds GI prophylaxis: Protonix DVT prophylaxis: Heparin subcut 5000 units every 8 hours Antibiotics: Ceftriaxone CODE STATUS: Full Disposition: ICU Case discussed with my attending Dr. Miguel A Anna, PGY2
[2025-03-30 19:02] LABS: Creatine Kinase 1187 U/L (34-171)
--- NOTE | 2025-03-30 19:20 | PD.RESDS ---
Planned Discharge Date 03/30/25 DS: Providers Provider Date of admission: 03/26/25 18:59 Primary care physician: Physician No Primary/Family Admitting Provider: Luann Grady MD Attending Provider on Admission: Luann Grady MD Consults: 03/26/25 12:47 Consult to Neurology / Tele-Neurology Routine Comment: Consulting Provider: [facility] 03/27/25 09:42 Consult to Nephrology Routine Comment: Acute kidney injury Consulting Provider: Jr Zelaya 03/27/25 18:32 Consult to Cardiology Routine Comment: Consulting Provider: Michael Nayak 03/27/25 19:26 Consult to Neurology / Tele-Neurology Routine Comment: Consulting Provider: Jose Oliver 03/27/25 19:37 Referral Wound Care Routine Comment: mult. areas of sdti, ulceration to right lower leg Attending Provider on DC: Vj Anna MD Discharging Provider: Vj Anna MD Hospital Course Hospital Course Hospital course: 59-year-old female with significant past medical history of diabetes mellitus, hypertension, asthma, chronic right leg ulcer presented to the hospital in view of altered mental status. ED course: Initially patient was given multiple doses of Narcan up to 8 mg by the EMS and woke pinpoint pupils and respiratory rate of 4 for which patient appeared to be responded well at the time of time. In the ED, patient noted to have temperature of 101.3 ?F, respiratory rate 35 with low saturation for which patient was initially started on BiPAP and as the patient's oxygen needs are increasing and also getting more altered patient was intubated in the ED and later admitted to ICU for further management. Hospital course: Labs done at the time of admission showed elevated WBC 13.1, creatinine 2.8, bicarb 18.1, lactate 4.7, glucose 550, AST 146, ALT 61, creatinine kinase 9752, procalcitonin 43.23. CT head done on 03/26/2025 showed acute right frontal lobe infarcts. Brain MRI with MR angiogram showed multiple embolic type foci of restricted diffusion bilateral occipital lobes, bilateral frontal and parietal lobes consistent with acute infarct. Patient was admitted in view of stroke, acute kidney injury, acute liver failure, shock. Emergency Room Clinician, regional sales associate and neurologist was consulted. Patient was started on CRRT on 03/27/2025 in view of multisystem organ failure and shock, likely distributive [septic]. Echocardiogram done on 03/26/2025 showed mild apical and global hypokinesis, LVEF 40 to 45% with evidence of tricuspid valve vegetation suggestive of endocarditis. Later as the patient's FiO2 needs continued to go up on the ventilator, suspected pulmonary embolism and CTA chest on 03/28/2025 which showed bilateral multiple pulmonary emboli involving mainly right lower lobe pulmonary artery and left upper lobe. Venous Doppler showed extensive nonocclusive DVT in the left lower extremity extending up to common femoral vein. Could not start on anticoagulation as patient is suspected to have infective endocarditis. Repeat head CT was done on 03/30/2025 showed hemorrhagic transformation of the infarct so could not start patient on the heparin drip. SYLVIE done on 03/30/2025 showed no vegetations but showed atrial septal aneurysm and PFO. Blood cultures came back positive for staphylococcus hominis only in 1 bottle, likely contaminant. Urine culture showed E. coli which is pansensitive. Patient is treated with vasopressors, antibiotics, renal replacement therapy. Patient received 2 hemodialysis sessions on 03/29, 03/30. Patient was weaned off vasopressors as of 03/30/2025. In view of multiple embolic strokes in the setting of PFO and as it needs closure to prevent further embolic strokes, patient will need higher level of care, so we will transfer the patient out for further management Time Spent with Patient Time attestation: Total time spent providing and/or coordinating discharge services: Exam Vital Signs Temp Pulse Resp BP Pulse Ox O2 Del Method O2 Flow Rate 96.6 F L 70 25 H 151/76 H 93 L Mechanical Ventilation 15 03/30/25 14:04 03/30/25 19:04 03/30/25 18:30 03/30/25 19:04 03/30/25 19:04 03/30/25 12:15 03/26/25 10:59 FiO2 40 03/30/25 19:04 Discharge Plan Plan Patient condition on transfer: Stable Prescriptions/Referrals Referrals: No Primary/Family,Physician [Primary Care Provider] - Patient/Caregiver Discharge Instructions Print Language: Faroese
--- NOTE | 2025-03-30 20:43 | ESPR_ITS ---
<Statement entered by Michael Nayak MD - 04/02/25 22:47> I personally evaluated this patient in the ICU still critical condition intubated mechanical ventilation underwent transesophageal echo that showed evidence of interatrial septal floppiness though his described aneurysms not really aneurysm with fenestrated septum with possibly significant [id number] shunting with bubble study positive patient also has DVT high likelihood that she probably has thromboembolism paradoxical through the right atrium to the left side and systemic embolization multiple organs including multi-infarct strokes and hemorrhagic transformation splenic infarction possibly AKA from kidney embolization and also left lower extremity bluish discoloration. Patient's condition is critical do not think there is any indication to transfer this patient at this time for any emergency closure of PFO which is not indicated maybe once she is stable. Patient does not have any evidence of endocarditis. The patient the resident physician PGY [address] EDINSON HALL Documentation for date of: 03/30/25 Subjective Subjective Interval history: Continued on intubation and MV. Evidently, she had findings of new infarcts and hemorrhagic conversion on head CT today. SYLVIE was done by Dr. Fernandez, showing atrial septal aneurysm, PFO which is likely cause of multiple embolic stroke at this point. She is currently pending transfer to higher level of care. Exam Vital Signs Temp Pulse Resp BP Pulse Ox O2 Del Method O2 Flow Rate 100 F 66 25 H 110/59 L 92 L Mechanical Ventilation 15 03/30/25 20:00 03/30/25 20:00 03/30/25 20:00 03/30/25 20:00 03/30/25 20:00 03/30/25 12:15 03/26/25 10:59 FiO2 40 03/30/25 20:00 Narrative Exam General: Sedated and mechanically ventilated. obese. HEENT: Normocephalic, atraumatic, mucous membranes moist. Heart: Regular rate and rhythm, no murmurs. Lungs: Clear to auscultation with no wheezing or crackles. Abdomen: Soft, nondistended, nontender, positive bowel sounds. ?No guarding or rebound tenderness. Neurologic: Sedated and mechanically ventilated.Bilateral pupils are equal and reacting to light. Extremities: Noted bilateral pitting edema edema extending up to the knees, noted surgical scar on the left knee likely from TKR. Noted chronic wound of 5 x 6 cm in the right lower extremity. Noted tissue pressure injuries on the upper lateral right and left thigh. Also noted infected area in the right toe. Peripheral pulses are feeble Skin: No rash or ecchymoses. Objective Labs 03/30/25 12:39 03/30/25 05:37 Labs: Laboratory Results - last 24 hr 03/27/25 03/30/25 03/30/25 02:17 04:50 05:37 WBC 11.4 H D RBC 3.34 L Hgb 9.7 L Hct 30.5 L MCV 91 MCH 29.0 MCHC 31.8 RDW Std Deviation 50.6 H Plt Count 137 L Neut % (Auto) 71 Lymph % (Auto) 9 L [place] % (Auto) 6 Eos % (Auto) 1 Baso % (Auto) 0 Neut # (Auto) 8.0 H Lymph # (Auto) 1.1 [place] # (Auto) 0.6 Eos # (Auto) 0.1 Baso # (Auto) 0.0 Immature Gran # (Auto) 1.52 H Absolute Nucleated RBC 0.05 H Immature Gran % 13 H Nucleated RBC % 0 ESR Puncture Site Arterial Line ABG pH 7.42 ABG pCO2 40 ABG pO2 66 L ABG HCO3 26 ABG O2 Saturation 93 ABG Base Excess 2 FiO2 40 Sodium 136 Potassium 3.6 D Chloride 99 Carbon Dioxide 24.9 Anion Gap 12 BUN 25 H Creatinine 2.4 H D Estim Creat Clear Calc 27.4 L eGFR 23 L BUN/Creatinine Ratio 10 L Glucose 203 H Calculated Osmolality 282 Calcium 8.1 L Corrected Calcium 9.0 Total Bilirubin 0.5 AST 64 H ALT 59 H Alkaline Phosphatase 98 D Total Creatine Kinase C-Reactive Prot, Quant Total Protein 5.0 L Albumin 2.9 L Globulin 2.1 L Albumin/Globulin Ratio 1.4 Tumor Marker AFP Carcinoembryonic Ag Random Vancomycin 12.6 HIV 1&2 Antibody Rapid Misc Test Result See Apr Rpt 03/30/25 03/30/25 12:39 18:25 WBC RBC Hgb 10.8 L Hct 34.1 L MCV MCH MCHC RDW Std Deviation Plt Count Neut % (Auto) Lymph % (Auto) [place] % (Auto) Eos % (Auto) Baso % (Auto) Neut # (Auto) Lymph # (Auto) [place] # (Auto) Eos # (Auto) Baso # (Auto) Immature Gran # (Auto) Absolute Nucleated RBC Immature Gran % Nucleated RBC % ESR 79 H Puncture Site ABG pH ABG pCO2 ABG pO2 ABG HCO3 ABG O2 Saturation ABG Base Excess FiO2 Sodium Potassium Chloride Carbon Dioxide Anion Gap BUN Creatinine Estim Creat Clear Calc eGFR BUN/Creatinine Ratio Glucose Calculated Osmolality Calcium Corrected Calcium Total Bilirubin AST ALT Alkaline Phosphatase Total Creatine Kinase 1187 H D C-Reactive Prot, Quant 22.1 H Total Protein Albumin Globulin Albumin/Globulin Ratio Tumor Marker AFP 2.00 Carcinoembryonic Ag 4.8 Random Vancomycin HIV 1&2 Antibody Rapid Non-Reactive Misc Test Result ABG Interpretation ABG results: 03/26/25 03/26/25 03/26/25 11:18 11:44 16:23 ABG pH 7.27 L Cancelled ABG pCO2 40 Cancelled ABG pO2 146 H Cancelled ABG HCO3 18 L Cancelled ABG O2 Saturation 100 H Cancelled ABG Base Excess -8 L Cancelled VBG pH 7.19 L VBG pCO2 48 VBG pO2 37 VBG Base Excess -10 L 03/26/25 03/27/25 03/27/25 18:43 00:17 03:42 ABG pH 7.16 L* D 7.24 L Cancelled ABG pCO2 58 H D 44 D Cancelled ABG pO2 68 L D 80 L Cancelled ABG HCO3 21 19 L Cancelled ABG O2 Saturation 90 L 96 Cancelled ABG Base Excess -9 L -8 L Cancelled VBG pH VBG pCO2 VBG pO2 VBG Base Excess 03/27/25 03/27/25 03/27/25 04:04 07:55 18:48 ABG pH 7.26 L 7.30 L ABG pCO2 43 37 ABG pO2 83 174 H D ABG HCO3 19 L 18 L ABG O2 Saturation 97 101 H ABG Base Excess -7 L -8 L VBG pH 7.21 L 7.31 L VBG pCO2 49 48 VBG pO2 54 52 VBG Base Excess -8 L -2 03/27/25 03/28/25 03/28/25 19:07 04:06 13:37 ABG pH 7.36 7.38 7.41 ABG pCO2 41 45 44 ABG pO2 79 L D 73 L 105 D ABG HCO3 23 27 H 27 H ABG O2 Saturation 97 96 99 H ABG Base Excess -2 1 2 VBG pH VBG pCO2 VBG pO2 VBG Base Excess 03/29/25 03/30/25 04:45 04:50 ABG pH 7.38 7.42 ABG pCO2 45 40 ABG pO2 72 L D 66 L ABG HCO3 27 H 26 ABG O2 Saturation 98 93 ABG Base Excess 1 2 VBG pH VBG pCO2 VBG pO2 VBG Base Excess Quality Measures Quality Measures VTE prophylaxis Assessment & Plan Assessment Current Active Medications: Generic Name Dose Route Start Last Admin Trade Name Freq PRN Reason Stop Dose Admin Acetaminophen 650 mg 03/26/25 18:58 Acetaminophen 325 Mg Tablet PO 04/25/25 18:57 Q4HR PRN Pain Scale 1-3 fever >100.4 Albuterol/Ipratropium 3 ml 03/27/25 01:00 03/30/25 19:14 Albuterol/Ipratropium (Duoneb) Rt Jennifer 3 Ml Nebu INH 04/26/25 00:59 3 ml Q6HRRT CRIS Administration Aspirin 81 mg 03/28/25 10:00 03/30/25 09:25 Aspirin 81 Mg Chew NG 04/27/25 09:59 81 mg QDAY CRIS Administration Atorvastatin Calcium 80 mg 03/26/25 21:00 03/29/25 21:38 Atorvastatin Calcium 20 Mg Tablet PO 04/25/25 20:59 80 mg HS CRIS Administration Atropine Sulfate 1 mg 03/30/25 10:33 Atropine Sulf Inj 0.1 Mg/Ml Syr 10 Ml IV 04/29/25 10:32 X1 PRN Bradycardia < 35 for greater t Dextrose 25 ml 03/26/25 20:20 Dextrose 50%-Water Inj 50 Ml Syringe IV 04/25/25 20:19 Q15MIN PRN BG 50-70 responsive npo pt Dextrose 50 ml 03/26/25 20:20 Dextrose 50%-Water Inj 50 Ml Syringe IV 04/25/25 20:19 Q15MIN PRN BG <50 OR BG <70 & pt unresponsive Glucagon 1 mg 03/26/25 20:20 Glucagon Inj 1 Mg Vial IM Q15MIN PRN BG <70, and no IV access Heparin Sodium (Porcine) 5,000 unit 03/27/25 14:00 03/30/25 13:41 Heparin Sod Inj 5000 Unit/Ml Vial SC 04/10/25 13:59 5,000 unit Q8HR CRIS Administration Heparin Sodium (Porcine) 2,600 unit 03/28/25 19:33 03/30/25 14:24 Heparin Sod Inj 1000 Unit/Ml Vial 10 Ml INDWELLCAT 04/11/25 19:32 2,600 unit X1 PRN Administration DIALYSIS Norepinephrine/Dextrose 8 mg in 250 mls @ 8.292 mls/hr 03/26/25 19:50 03/30/25 17:43 Levophed In D5w 8mg/250ml IV 04/25/25 19:49 0 mcg/kg/min .Q24H PRN 0 mls/hr PER PROTOCOL Titration Protocol 0.05 MCG/KG/MIN Dexmedetomidine/Sodium Chloride 400 mcg in 100 mls @ 4.423 mls/hr 03/26/25 23:53 03/30/25 20:00 Precedex Ivpb IV 04/25/25 14:17 1.4 mcg/kg/hr .[id number] PRN 30.958 mls/hr Per PROTOCOL Titration Protocol 0.2 MCG/KG/HR Fentanyl Citrate 2,500 mcg in 250 mls @ 2.5 mls/hr 03/26/25 23:53 03/30/25 11:24 Sublimaze Inj 2,500 Mcg/250 Ml Bag IV 03/31/25 23:52 0 mcg/hr .Q24H PRN 0 mls/hr PER PROTOCOL Titration Protocol 25 MCG/HR Propofol 1,000 mg in 100 mls @ 2.799 mls/hr 03/27/25 17:34 03/30/25 11:24 Diprivan Ivpb IV 04/26/25 17:33 0 mcg/kg/min .Q24H PRN 0 mls/hr PER PROTOCOL Titration Protocol 5 MCG/KG/MIN Epinephrine/Sodium Chloride 16 mg in 250 mls @ 4.416 mls/hr 03/28/25 16:28 Adrenalin/Ns 16 Mg Ivpb IV 04/27/25 16:27 .Q24H PRN Per Protocol Protocol 0.05 MCG/KG/MIN Albumin Human 25 gm in 100 mls @ 100 mls/min 03/29/25 10:36 03/29/25 14:38 Albuminar-25 Ivpb IV 100 mls/min PRN PRN Administration DIALYSIS Ceftriaxone Sodium 2 gm/ 50 mls @ 100 mls/hr 03/30/25 10:45 03/30/25 11:26 Sodium Chloride IV 04/06/25 10:44 100 mls/hr QDAY CRIS Administration Insulin Degludec 20 unit 03/30/25 21:00 Insulin Degludec 5 Unit/0.05 Ml (Per 5 Units) SC 04/29/25 20:59 HS [facility] Insulin Human Lispro 0 unit 03/27/25 06:33 03/30/25 18:19 Insulin Lispro (Admelog) 1 Unit/0.01 Ml Unit SC 04/25/25 20:29 Not Given Q6HR [facility] Protocol Mupirocin 0 gm 03/29/25 08:30 03/30/25 14:00 Mupirocin Oint 2% 15 Gm Tube TOP 04/05/25 08:29 1 applicatio TID [facility] Administration Pantoprazole Sodium 40 mg 03/26/25 19:15 03/30/25 09:25 Pantoprazole Inj 40 Mg Vial IVP 04/25/25 19:14 40 mg QDAY CRIS Administration Pharmacy Consult 1 each 03/26/25 19:15 03/30/25 09:26 Vancomycin Pharmacy To Dose 1 Each Each IV 04/25/25 19:14 Not Given QDAY [facility] Plan This is a 59-year-old female with PMHx of drug use disorder, presented to ED with acute encephalopathy requiring intubation with findings of multi embolic disease involving multiple systems including brain and left distal extremity, acute and failure with the cause likely renal emboli, with findings of vegetations on SYLVIE. Admitted to ICU for ventilator support, pressor support for likely septic shock, and CRRT. 1. Acute encephalopathy, multifactorial, related to metabolic derangement and embolic CVA. 2. Septic shock in settings of endocarditis with bacteremia 3. Heart failure with reduced ejection fraction EF 40-45%. 3. NSTEMI type type I (embolic [place]) vs. Type 2 (demand ischemia 2/2 shock) 4. Acute renal failure likely 2/2 septic shock vs. renal emboli vs. rhabdomyolysis 5. Atrial septal aneurysm and PFO noted on SYLVIE IMPRESSION: The patient suffered multiple embolic strokes, as confirmed by MRI showing restricted diffusion in bilateral occipital, frontal, and parietal lobes. SYLVIE is pending but suspected source of emboli includes tricuspid valve vegetations in the setting of possible infective endocarditis, supported by gram-positive cocci in blood cultures, MRSA nasal positivity, and clinical sepsis. Anticoagulation is withheld due to concern for septic emboli and hemorrhagic transformation, as repeat CT revealed new hemorrhagic infarcts. Additional embolic sources include extensive non-occlusive DVT in the left leg and pulmonary emboli on CTA. An IVC filter is planned. The patient also has [id number] kidney injury on hemodialysis, Type 2 [place] with elevated troponin likely from hemodynamic instability, and is being treated empirically for sepsis and a UTI. RECOMMENDATIONS: Prognosis overall is guarded. Anticoagulation remains contraindicated due to evidence of hemorrhagic conversion on repeat head CT, making management complex. The patient is being transferred to a higher level of care [facility] for further evaluation and management, including potential PFO closure once clinically stable. In the interim, continue high-dose statin therapy. Maintain close hemodynamic monitoring with avoidance of blood pressure extremes to minimize further neurologic injury. The patient is not a candidate for surgical or percutaneous intervention at this time due to ongoing sepsis, reduced ventricular function, and overall poor prognosis. Infective endocarditis treatment with IV antibiotics should continue as planned. CRRT should be maintained for renal support, and multidisciplinary coordination remains essential during this transition of care. Maintain potassium >4.0 and magnesium >2.0. Continue with presser support as needed to maintain a MAP > 65. Patient was seen and discussed with my attending physician Dr. Nayak. Clif Portillo DO PGY-1.
--- NOTE | 2025-03-30 21:32 | EVENTNT_ITS ---
Documentation for date of: 03/30/25 Event Note Event Note: Peer to peer discussion was done at 9 PM today, with cardiothoracic surgeon at [facility]. The case was presented to him, and he reported that there is low suspicion of embolic stroke because of the small PFO, and recommended getting further hypercoagulability workup before considering PFO closure. He also suggested considering anticoagulation, but was informed that there was questionable hemorrhagic stroke conversion on CT head done today. However, he also reported that he would reach out to his neurology team, and have further discussion regarding the patient. The patient's management plan was discussed with my attending physician MD Juvencio Cota MD, PGY3
[2025-03-30] MEDS: ATORVASTATIN CALCIUM 20 MG TABLET 80 MG PO (21:55)
[2025-03-31] VITALS (111 sets, daily range): BP systolic 69–223; BP diastolic 38–127; PULSE 57–92; RESP 11–63; TEMP 36.2–37.7; O2SAT 72–99; BMI 37.3
--- NOTE | 2025-03-31 00:01 | PC.RT ---
patient desating, heart rate unstable to adminsiter, patient jeni's down and desated to 80's
[2025-03-31] MEDS: DEXMEDETOMIDINE 400 MCG IVPB 400 MCG/100 ML BAG 30.958 MCG IV ×4 (02:33→19:29)
[2025-03-31 04:55] LABS: Base Excess 0 (-3-3); HCO3 25 mEq/L (20-26); Inspired Oxygen, FIO2 50 %; O2 Saturation 92 % (91-98); PCO2 41 mmHg (32.0-48.0); PO2 63 mmHg (83-108); pH, Arterial 7.39 (7.35-7.45)
--- NOTE | 2025-03-31 05:00 | XR_ITS ---
Examination: AP chest single view TECHNIQUE: AP portable semiupright chest single view Date and time: March 31, 2025 0525 hours, comparison March 30, 2025 INDICATIONS: Hypoxic respiratory failure, history significant pneumonia FINDINGS: Mild heart failure with prominent vascular congestion Bibasilar pneumonia. Right internal jugular dialysis catheter tip SVC Endotracheal tube tip 5.7 cm above jerardo. The orogastric tube is in the stomach. IMPRESSION: Mild heart failure. Bibasilar pneumonia again noted
[2025-03-31 05:01] LABS: Allen Test Not Performed; Puncture Site Arterial Line
[2025-03-31] MEDS: HEPARIN SOD INJ 5000 UNIT/ML VIAL SC ×3 (05:57→21:24)
[2025-03-31] MEDS: MUPIROCIN OINT 2% 15 GM TUBE TOP ×3 (05:58→21:24)
[2025-03-31] MEDS: ALBUTEROL/IPRATROPIUM (Duoneb) RT SOL 3 ML NEBU INH ×2 (06:24→18:06)
[2025-03-31] MEDS: fentaNYL 2,500 MCG/250 ML BAG 2,500 MCG/250 ML BAG 22.5 MCG IV (06:44)
[2025-03-31 06:54] LABS: Vancomycin,Random 16.4 mcg/mL
--- NOTE | 2025-03-31 07:29 | PC.CC ---
Addendum entered by Toya Kan RN 03/31/25 17:01: Made aware by lFaquita BE that transfer was cancelled Addendum entered by Toya Kan RN 03/31/25 16:45: [place] [facility] [place], gave them ICU phone number for return call. Hand off given to Charge Nurse Flaquita. Addendum entered by Toya Kan RN 03/31/25 16:35: Vu called back at this time and asked for [facility] financial department Renetta Sanchez called back and states they are not contracted with [facility] and suggested to try [facility] Addendum entered by Toya Kan RN 03/31/25 15:22: Laura from [facility] called at this time, she states she got the request for auth and she will send it to her director, her phone number is [phone] Addendum entered by Toya Kan RN 03/31/25 15:03: I called the call Center and was given the oscar number of Marisa Duarte her phone number is [phone], called and left voicemail will wait for call back Addendum entered by Toya Kan RN 03/31/25 13:56: Spoke to Michell at [facility], she verified patient is assigned to them and states to fax the request to [phone], chart faxed, she also gave phone number for urgent auth [phone]. Called the urgent prior auth tayler and Rao stated they only handle outpatient and to call face sheet and clinicals now faxed to [phone] and [phone] and to call the call center at [phone] Addendum entered by Toya Kan RN 03/31/25 13:40: Spoke to Joan at [facility] who states patient can be transferred to any hospital as long as they submit a one time signle case auth. She also states to try and call [facility] at [phone] Addendum entered by Toya Kan RN 03/31/25 13:00: Called [facility] who states ken do not have request for transfer, asked what hospitals they are contracted with and they state they don't have any hospital on file for patient and that patient goes by last name Barone for their info. I was told to call the hospital notification line to start request, I called and was told I needed to discuss cse with [facility], I explained [facility] sent me to them they said it takes 24 hours to get auth processed and their is no way to know if they got request. Again they directed me to call [facility] and to refax the request. Chart was refaxed to [phone]. Attempted to call [facility] back and phone continued to ring and then just stopped unable to leave message. Addendum entered by Toya Kan RN 03/31/25 12:55: [facility] called back at this time and declined due to insurance not working with [facility], explained its an emergent case and they still declined Addendum entered by Toya Kan RN 03/31/25 12:08: Cathryn from [facility] insurance called asking for patient face sheet, face sheet faxed. Addendum entered by Toya Kan RN 03/31/25 10:00: Spoke to Maryanne at [facility] for possible transfer, chart faxed will wait for call back Addendum entered by Toya Kan RN 03/31/25 09:33: Spoke to Elva [employer], she said a request for auth needs to be faxed, request faxed with all clinical documentation, she said for updates call [facility] department at [phone] Addendum entered by Toya Kan RN 03/31/25 08:29: 0815- Spoke to Bernard at [facility] initiate transfer, chart faxed, Bernard asked to notify insurance, will follow up Addendum entered by Toya Kan RN 03/31/25 07:47: Spoke to Celia at [facility] who states they are waiting for their Student Affairs Dean to speak with Neurology no update since last night, case is still open, [facility] has no beds will keep trying other facilities. Original Note: 0710- Spoke to Shameka at [facility] who states they are in report and no beds are available and to call back at 0730 for more information 0725- Spoke to Bernard at [facility] for possible transfer, he states they are giving report and to call back in 15 minutes
--- NOTE | 2025-03-31 08:00 | XR_ITS ---
Examination: Percutaneous placement retrievable inferior venacavogram filter Inferior venacavogram Fluoroscopy Selective catheterization inferior vena cava Ultrasound-guided venous access right common femoral vein. AP Abdomen, portable, 11 Date: March 31, 2025, 1215 hours INDICATIONS: Venous Doppler March 29, 2025 extensive DVT in the left lower extremity Informed consent provided. Time out performed Technique And Findings: Skin prepped over the right groin. 1 % Lidocaine administered for local anesthesia. Sterile drape applied. Maximum sterile barrier technique, hand hygiene, ultrasound sterile technique. Ultrasound utilized for localization right common femoral vein. Utilizing ultrasonographic guidance, puncture right common femoral vein with a 21-gauge needle. Placement 0.18 wire guide through the needle into the common femoral vein under fluoroscopic guidance. Placement 5 Andorran introducer catheter over the wire guide. Core removed and 0.35 wire guide and placed in the IVC under fluoroscopic guidance. Percutaneous retrievable IVC filter deployment catheter then placed over the wire guide under fluoroscopic guidance to the level L4 level. Inferior venacavogram performed, hand injection 20 cc Isovue 300, serial filming 2 frames per second with the [facility] [place] subtraction apparatus Normal caliber inferior vena cava and normal position renal veins. Retrievable IVC filter then deployed below the renal veins and above the IVC bifurcation. No complications observed. Impression: Successful percutaneous placement retrievable IVC filter Normal inferior vena cavogram. Selective catheterization inferior vena cava. Successful ultrasound-guided venous access right common femoral vein. Fluoroscopy 0.5 minute radiation dose 147.36 milligray 11 spot fluoroscopic abdomen films. AP abdomen completion procedure demonstrates satisfactory position IVC filter.
--- NOTE | 2025-03-31 08:30 | ESPR_ITS ---
Documentation for date of: 03/31/25 Subjective Subjective Interval history: The patient is evaluated bedside, currently seen off sedation, off pressors, continued mechanical ventilation, the patient is able to respond to simple commands and elevate her limbs when asked. IVC filter placement scheduled for today. SYLVIE yesterday had showed A patent foramen ovale with [id number] shunt a patent foramen ovale is present demonstrated by agitated saline injection as well as Atrial septal aneurysm, likely source of Paradoxical Embolism causing strokes in the setting of DVT. Currently holding off on anticoagulation due to concern for hemorrhagic conversion of infarct. Dr Fernandez recommended transfer to [facility] for closure of shunt. We will sign off on this case, care handed over to Dr Goins. Exam Vital Signs Temp Pulse Resp BP Pulse Ox O2 Del Method O2 Flow Rate 99.1 F 58 L 26 H 101/60 99 Mechanical Ventilation 15 03/31/25 03:35 03/31/25 06:30 03/31/25 07:37 03/31/25 06:30 03/31/25 06:30 03/31/25 03:35 03/26/25 10:59 FiO2 40 03/31/25 07:37 Narrative Exam General: Off sedation, off pressors, mechanically ventilated. Able to follow simple commands. HEENT: Normocephalic, atraumatic, mucous membranes moist. Heart: Regular rate and rhythm, no murmurs. Lungs: Clear to auscultation with no wheezing or crackles. Abdomen: Soft, nondistended, nontender, positive bowel sounds. ?No guarding or rebound tenderness. Neurologic: Off sedation, mechanically ventilated.Bilateral pupils are equal and reacting to light. Extremities: Noted improvement bilateral pitting edema edema extending up to the knees, noted surgical scar on the left knee likely from TKR. Noted chronic wound of 5 x 6 cm in the right lower extremity. Noted tissue pressure injuries on the upper lateral right and left thigh. Also noted infected area in the right toe. Peripheral pulses are feeble. Noted left toe area of purpleish discolored, well-demarcated, possible gangrene Skin: No rash or ecchymoses. Tattoos anterior chest noted Objective Labs 04/12/25 07:36 04/12/25 07:36 Labs: Laboratory Results - last 24 hr 03/30/25 03/30/25 03/31/25 12:39 18:25 04:40 Hgb 10.8 L Hct 34.1 L ESR 79 H Puncture Site Arterial Line ABG pH 7.39 ABG pCO2 41 ABG pO2 63 L ABG HCO3 25 ABG O2 Saturation 92 ABG Base Excess 0 FiO2 50 Total Creatine Kinase 1187 H D C-Reactive Prot, Quant 22.1 H Tumor Marker AFP 2.00 Carcinoembryonic Ag 4.8 Random Vancomycin HIV 1&2 Antibody Rapid Non-Reactive 03/31/25 04:43 Hgb Hct ESR Puncture Site ABG pH ABG pCO2 ABG pO2 ABG HCO3 ABG O2 Saturation ABG Base Excess FiO2 Total Creatine Kinase C-Reactive Prot, Quant Tumor Marker AFP Carcinoembryonic Ag Random Vancomycin 16.4 HIV 1&2 Antibody Rapid ABG Interpretation ABG results: 03/26/25 03/26/25 03/26/25 11:18 11:44 16:23 ABG pH 7.27 L Cancelled ABG pCO2 40 Cancelled ABG pO2 146 H Cancelled ABG HCO3 18 L Cancelled ABG O2 Saturation 100 H Cancelled ABG Base Excess -8 L Cancelled VBG pH 7.19 L VBG pCO2 48 VBG pO2 37 VBG Base Excess -10 L 03/26/25 03/27/25 03/27/25 18:43 00:17 03:42 ABG pH 7.16 L* D 7.24 L Cancelled ABG pCO2 58 H D 44 D Cancelled ABG pO2 68 L D 80 L Cancelled ABG HCO3 21 19 L Cancelled ABG O2 Saturation 90 L 96 Cancelled ABG Base Excess -9 L -8 L Cancelled VBG pH VBG pCO2 VBG pO2 VBG Base Excess 03/27/25 03/27/25 03/27/25 04:04 07:55 18:48 ABG pH 7.26 L 7.30 L ABG pCO2 43 37 ABG pO2 83 174 H D ABG HCO3 19 L 18 L ABG O2 Saturation 97 101 H ABG Base Excess -7 L -8 L VBG pH 7.21 L 7.31 L VBG pCO2 49 48 VBG pO2 54 52 VBG Base Excess -8 L -2 03/27/25 03/28/25 03/28/25 19:07 04:06 13:37 ABG pH 7.36 7.38 7.41 ABG pCO2 41 45 44 ABG pO2 79 L D 73 L 105 D ABG HCO3 23 27 H 27 H ABG O2 Saturation 97 96 99 H ABG Base Excess -2 1 2 VBG pH VBG pCO2 VBG pO2 VBG Base Excess 03/29/25 03/30/25 03/31/25 04:45 04:50 04:40 ABG pH 7.38 7.42 7.39 ABG pCO2 45 40 41 ABG pO2 72 L D 66 L 63 L ABG HCO3 27 H 26 25 ABG O2 Saturation 98 93 92 ABG Base Excess 1 2 0 VBG pH VBG pCO2 VBG pO2 VBG Base Excess Quality Measures Quality Measures VTE prophylaxis Assessment & Plan Assessment Current Active Medications: Generic Name Dose Route Start Last Admin Trade Name Freq PRN Reason Stop Dose Admin Acetaminophen 650 mg 03/26/25 18:58 Acetaminophen 325 Mg Tablet PO 04/25/25 18:57 Q4HR PRN Pain Scale 1-3 fever >100.4 Albuterol/Ipratropium 3 ml 03/27/25 01:00 03/31/25 06:24 Albuterol/Ipratropium (Duoneb) Rt Jennifer 3 Ml Nebu INH 04/26/25 00:59 3 ml Q6HRRT CRIS Administration Aspirin 81 mg 03/28/25 10:00 03/30/25 09:25 Aspirin 81 Mg Chew NG 04/27/25 09:59 81 mg QDAY CRIS Administration Atorvastatin Calcium 80 mg 03/26/25 21:00 03/30/25 21:55 Atorvastatin Calcium 20 Mg Tablet PO 04/25/25 20:59 80 mg HS CRIS Administration Atropine Sulfate 1 mg 03/30/25 10:33 Atropine Sulf Inj 0.1 Mg/Ml Syr 10 Ml IV 04/29/25 10:32 X1 PRN Bradycardia < 35 for greater t Dextrose 25 ml 03/26/25 20:20 Dextrose 50%-Water Inj 50 Ml Syringe IV 04/25/25 20:19 Q15MIN PRN BG 50-70 responsive npo pt Dextrose 50 ml 03/26/25 20:20 Dextrose 50%-Water Inj 50 Ml Syringe IV 04/25/25 20:19 Q15MIN PRN BG <50 OR BG <70 & pt unresponsive Glucagon 1 mg 03/26/25 20:20 Glucagon Inj 1 Mg Vial IM Q15MIN PRN BG <70, and no IV access Heparin Sodium (Porcine) 5,000 unit 03/27/25 14:00 03/31/25 05:57 Heparin Sod Inj 5000 Unit/Ml Vial SC 04/10/25 13:59 5,000 unit Q8HR CRIS Administration Heparin Sodium (Porcine) 2,600 unit 03/28/25 19:33 03/30/25 14:24 Heparin Sod Inj 1000 Unit/Ml Vial 10 Ml INDWELLCAT 04/11/25 19:32 2,600 unit X1 PRN Administration DIALYSIS Norepinephrine/Dextrose 8 mg in 250 mls @ 8.292 mls/hr 03/26/25 19:50 03/31/25 08:00 Levophed In D5w 8mg/250ml IV 04/25/25 19:49 0 mcg/kg/min .Q24H PRN 0 mls/hr PER PROTOCOL Titration Protocol 0.05 MCG/KG/MIN Dexmedetomidine/Sodium Chloride 400 mcg in 100 mls @ 4.423 mls/hr 03/26/25 23:53 03/31/25 08:00 Precedex Ivpb IV 04/25/25 14:17 1.4 mcg/kg/hr .[id number] PRN 30.958 mls/hr Per PROTOCOL Titration Protocol 0.2 MCG/KG/HR Fentanyl Citrate 2,500 mcg in 250 mls @ 2.5 mls/hr 03/26/25 23:53 03/31/25 07:12 Sublimaze Inj 2,500 Mcg/250 Ml Bag IV 03/31/25 23:52 0 mcg/hr .Q24H PRN 0 mls/hr PER PROTOCOL Titration Protocol 25 MCG/HR Propofol 1,000 mg in 100 mls @ 2.799 mls/hr 03/27/25 17:34 03/31/25 07:12 Diprivan Ivpb IV 04/26/25 17:33 0 mcg/kg/min .Q24H PRN 0 mls/hr PER PROTOCOL Titration Protocol 5 MCG/KG/MIN Epinephrine/Sodium Chloride 16 mg in 250 mls @ 4.416 mls/hr 03/28/25 16:28 Adrenalin/Ns 16 Mg Ivpb IV 04/27/25 16:27 .Q24H PRN Per Protocol Protocol 0.05 MCG/KG/MIN Albumin Human 25 gm in 100 mls @ 100 mls/min 03/29/25 10:36 03/29/25 14:38 Albuminar-25 Ivpb IV 100 mls/min PRN PRN Administration DIALYSIS Ceftriaxone Sodium 2 gm/ 50 mls @ 100 mls/hr 03/30/25 10:45 03/30/25 11:26 Sodium Chloride IV 04/06/25 10:44 100 mls/hr QDAY CRIS Administration Vancomycin/Sodium Chloride 100 mls @ 120 mls/hr 03/31/25 10:00 Vancomycin/Ns 500 Mg Ivpb IV 03/31/25 10:49 X1 ONE Insulin Degludec 20 unit 03/30/25 21:00 03/30/25 21:55 Insulin Degludec 5 Unit/0.05 Ml (Per 5 Units) SC 04/29/25 20:59 Not Given HS [facility] Insulin Human Lispro 0 unit 03/27/25 06:33 03/31/25 05:52 Insulin Lispro (Admelog) 1 Unit/0.01 Ml Unit SC 04/25/25 20:29 Not Given Q6HR [facility] Protocol Mupirocin 0 gm 03/29/25 08:30 03/31/25 05:58 Mupirocin Oint 2% 15 Gm Tube TOP 04/05/25 08:29 1 applicatio TID CRIS Administration Pantoprazole Sodium 40 mg 03/26/25 19:15 03/30/25 09:25 Pantoprazole Inj 40 Mg Vial IVP 04/25/25 19:14 40 mg QDAY CRIS Administration Pharmacy Consult 1 each 03/26/25 19:15 03/30/25 09:26 Vancomycin Pharmacy To Dose 1 Each Each IV 04/25/25 19:14 Not Given QDAY CRIS Plan The patient is a 59-year-old female with a past medical history of diabetes mellitus type 2, hypertension, asthma, chronic right leg wounds, history of methamphetamine abuse, HCV positive status, who was admitted to the hospital for septic shock and acute encephalopathy requiring intubation, NSTEMI, heart failure with reduced ejection fraction, acute kidney injury, and concern for vegetations. Press Worker Helper Dr. Tamra Nayak was consulted initially, echocardiogram was done which showed normal-sized LV with apical and global hypokinesis, LVEF 40 to 45%, and tricuspid valve regurgitation mildly decreased RV systolic function. The patient was found unconscious at home, patient was brought to hospital BIBA by EMS, Patient was given Narcan with some initial response but then became comatose again, stroke alert was called in the ER, initial head CT showed 2 acute infarction right frontal lobe. Patient was also noted to be febrile and respiratory rate 35 and Hypoxic, patient was started on BiPAP, but later as patient GCS continue to worsen, patient was intubated for airway protection. Patient also received IV fluids in the emergency room as part of sepsis protocol but he was concern for volume overload as he was noted to have bilateral respiratory crackles for which she was given Lasix . Initially adapted physical education aide Dr. Landon Nayak was consulted for possible cardiogenic shock and an echocardiogram was ordered to rule out cardioembolic phenomenon or endocarditis. Given that patient had high-grade fever and the GPC blood cultures were positive, echocardiogram showed evidence of mild LV dysfunction EF 45%, with apical hypokinesis, and definite evidence of tricuspid valve vegetation. Structural adapted physical education aide Dr. Fernandez was consulted for SYLVIE to confirm evidence of vegetation and or presence of shunt. Problems: 1. Acute stroke-2/2 Paradoxical Embolism 2. Acute hypoxic respiratory failure on mechanical ventilation 3. Ruled out tricuspid valve infective endocarditis 4. Bilateral pulmonary embolism 5. KINJAL/ATN requiring hemodialysis 6. Septic shock 7. Sepsis 8. GPC bacteremia?staph hominis 1/2 bottles, negative repeat blood cultures 9. Pneumonia secondary to Klebsiella pneumonia, Streptococcus pneumonia 10. Acute Encephalopathy 11. LLE DVT 12. NSTEMI , type [address] Oliver also followed the patient, recommended getting SYLVIE, improving glycemic control, no recommendation for anticoagulation at this point due to concern for septic emboli and concern for hemorrhagic conversion. Worker'S Compensation Claims Examiner Dr Zelaya is following the patient for acute on chronic kidney injury, patient currently on hemodialysis. Press Worker Helper Dr. Tamra Nayak is following the patient for acute on chronic heart failure. Structural adapted physical education aide Dr Fernandez is consulted for SYLVIE. Head CT showed finding consistent with acute right lobe infarcts, Brain MRI showed multiple areas of restricted diffusion consistent with embolic type infarcts in the bilateral occipital lobe, bilateral frontal lobe, bilateral parietal lobes. Chest x-ray consistent with bibasilar pneumonia and findings concerning for mild heart failure. Renal ultrasound showed small kidneys with parenchymal scar formation, Carotid duplex study showed 20 to 40% stenosis of right ICA and 0 to 10% stenosis of left ICA. EKG showed sinus rhythm, CT angiogram on 03/28/2025 positive for multiple right lower lobe pulmonary artery and left upper lobe pulmonary artery emboli, infarction versus pneumonia at lung bases. Repeat head CT on 03/30/2025 showed additional focal areas of edema most consistent with hemorrhagic infarcts in the left frontal parietal lobe and left occipital lobe. LE Duplex US shows extensive non occlusive DVT left lower extremity . Patient presents with pulmonary embolism of uncertain origin, possibly secondary to tricuspid valve vegetations or lower extremity deep vein thrombosis (DVT) confirmed on Doppler ultrasound. Due to suspected infective endocarditis with multiple embolic cerebrovascular accidents, anticoagulation with a heparin drip is contraindicated. An inferior vena cava (IVC) filter placement is planned to mitigate further embolic risk. MRI confirmed multiple embolic cerebrovascular accidents, likely secondary to infective endocarditis. Neurology has been consulted. A repeat head CT revealed new lesions concerning for possible hemorrhagic transformation. Urine toxicology was positive for methamphetamine, which may have contributed to the patient's clinical instability. Patient is being treated for sepsis with vancomycin and piperacillin-tazobactam; initial blood cultures show one of two bottles positive for gram-positive cocci, pending further speciation. MRSA nasal screening is positive. Urine culture grew pansensitive Escherichia coli, consistent with a urinary tract infection. Imaging of the right lower extremity ulcer reveals possible cortical thickening on X-ray, prompting recommendation for MRI to evaluate for osteomyelitis. Of note, on 03/27/2025 Patient experienced significant troponinemia, likely secondary to demand ischemia in the setting of hemodynamic instability?initial hypotension requiring vasopressors (SBP in 60s), followed by a hypertensive surge (SBP up to 300 mmHg) that resolved after discontinuation of vasopressors. Peak troponin reached 20 ng/mL on 03/27 at 3 PM and is now trending downward, consistent with Type 2 MT. SYLVIE findings: 03/30/2025. Atrial septal aneurysm present and bubble study positive for PFO especially with increased right atrial pressure. Maximal oscillation of the atrial septal aneurysm up to 15 mm into the left atrium and base measured up to 23 mm, No evidence of any echo densities or vegetations on any of the valves. Mild MR, mild AI and trace TR. 03/31/2025- The patient is evaluated bedside, currently seen off sedation, off pressors, continued mechanical ventilation, the patient is able to respond to simple commands and elevate her limbs when asked. IVC filter placement scheduled for today. SYLVIE yesterday had showed atrial septal aneurysm, likely source of embolic strokes in the setting of DVT. Currently holding off on anticoagulation due to concern for hemorrhagic conversion of infarct. Recommendations: ? Dr Fernandez recommended transfer to higher center for further care if the patient continues to deteriorate given the complex multisystem involvement with the acute stroke and hypoxic respiratory failure, septic shock - Alternatively patient could get an IVC filter for now to prevent further clot burden which is leading to the paradoxical embolism with the stroke. ? Keep K > 4 and Magnesium > 2 ? Continue aspirin and high-dose statin therapy. ? Continue appropriate intravenous antibiotics for treatment of possible endocarditis and bacteremia. ? Continue CRRT/HD for ongoing renal failure management. Rest of the management deferred to primary team. Thank you for cardiology consultation. We appreciate the opportunity to participate in this patient's care. We will sign off on this case, care handed over to Dr Goins. This case was discussed with adapted physical education aide, Dr. Fernandez. Raul Chu MD PG3 Attending Provider Attestation/Addendum I have personally seen and examined the patient separately on the above date of service and discussed the plan of care with the resident. I reviewed the resident Dr. Carter consultation progress note and agree with the resident findings and plan in the note above and have also edited the documentation to reflect my findings and plan. I have personally seen and examined the patient separately on the above date of service and discussed the plan of care with the resident. I reviewed the resident Dr. Carter consultation progress note and agree with the resident findings and plan in the note above and have also edited the documentation to reflect my findings and plan. A 59-year-old female with multiple comorbidities as noted above presented to the hospital for further evaluation of acute encephalopathy and was found unresponsive at home. Had some response to Narcan but still was comatose and unresponsive on arrival. Patient was intubated and placed on mechanical ventilation and admitted to the ICU. Patient also had NSTEMI with troponins elevated up to 20 along with mild systolic congestive heart failure with an EF of 40 to 45%. Patient was also being treated for septic shock. Further evaluation with a CT head showed acute right sided infarct and eventually brain MRI was done which showed embolic type infarcts in the bilateral occipital lobe bilateral frontal lobe and bilateral bilateral lobes. Patient had CT chest which also showed multiple right lower lobe pulmonary artery as well as left upper lobe pulmonary artery emboli along with infectious versus pneumonia at lung bases. Duplex showed extensive nonocclusive DVT of the left lower extremity. Carotid duplex study showed mild disease. EKG with normal sinus rhythm and telemetry showed the same. Cardiology Dr. Tamra Nayak was consulted for further evaluation of the elevated troponins as well as the heart failure. An echocardiogram was performed to rule out cardioembolic phenomenon for the stroke and showed questionable evidence of vegetation on the tricuspid valve and patient also had high-grade fever along with GPC positive blood cultures. EF is 40 to 45% with some apical hypokinesis but overall image quality was poor given the patient's intubated status and on mechanical ventilation. I was consulted for further evaluation of cardioembolic source for acute bilateral stroke. Patient has high clinical probability of cardioembolic stroke and will need to rule out left-sided sedations elevated as any paradoxical embolism of the right side vegetations. Also will need to rule out any kind of PFO or ASD. Patient has an appropriate indication for the SYLVIE. Patient unable to provide much history as she is intubated and sedated. She does have a history of positive methamphetamine abuse. Most of the history was obtained from chart review There is no history of any swallowing problems or any kind of esophageal interventions or previous surgeries. No evidence of any previous gastric ulcers bleeding and any other hematemesis or hematochezia. No issues with anesthesia as patient already been intubated and sedated. Patient will benefit from the SYLVIE and discussed with the primary adapted physical education aide Dr. Nayak as well as the ICU team Dr. Nayak and decision was made to perform the SYLVIE. Patient has been n.p.o. since this morning and the tube feeds have been stopped. Will plan for the SYLVIE later this afternoon and will follow-up with results. SYLVIE completed on 03/31/2025 showed Atrial septal aneurysm present and bubble study positive for PFO especially with increased right atrial pressure. Maximal oscillation of the atrial septal aneurysm up to 15 mm into the left atrium and base measured up to 23 mm, No evidence of any echo densities or vegetations on any of the valves. Mild MR, mild AI and trace TR. Given her overall presentation and the workup till now, patient most likely has paradoxical embolism in the setting of DVT due to the significant atrial septal aneurysm along with small PFO. No anticoagulation could be given because of the possible hemorrhagic transformation of the recent acute infarcts. Primary team planning for IVC filter placement today which is also an appropriate approach to prevent further clot burden that is causing a paradoxical embolism and the strokes. If the patient continues to deteriorate and patient should be transferred to a higher level of care given her presentation of acute stroke, acute hypoxic respiratory failure on mechanical ventilation, septic shock and the DVT with PFO Management of rest of the medical conditions as per primary team and other consultants. Thank you for the consult and allowing me to participate in the care of the patient. Cardiology will sign off for now and Dr. Nayak will follow Joshua Fernandez M.D. Interventional Cardiology
[2025-03-31 08:58] LABS: Basophils # (Auto) 0.0 Thou/mm3 (0.0-0.2); Basophils % (Auto) 0 % (0-2.5); Eosinophils # (Auto) 0.2 Thou/mm3 (0.0-0.5); Eosinophils % (Auto) 1 % (0-10); Hematocrit 33.2 % (36.0-46.0); Hemoglobin 10.4 g/dL (12.0-16.0); Immature Granulocytes Auto 2.66 Thou/mm3 (0.00-0.00); Lymphocytes # (Auto) 2.3 Thou/mm3 (1.0-4.8); Lymphocytes % (Auto) 13 % (10-50); Mean Corpuscular HGB Conc 31.3 g/dl (31.0-37.0); Mean Corpuscular Hemoglobin 29.4 pg (25.0-35.0); Mean Corpuscular Volume 94 fL (80-100); Monocytes # (Auto) 1.2 Thou/mm3 (0.0-0.8); Monocytes % (Auto) 7 % (0-12); Neutrophils # (Auto) 10.6 Thou/mm3 (1.8-7.7); Neutrophils % (Auto) 62 % (37-80); Nucleated Red Blood Cell # 0.08 Thou/mm3 (0.00-0.00); Nucleated Red Blood Cell % 1 /100 WBC (0); Platelet Count 157 Thou/mm3 (140-440); RDW Standard Deviation 52.0 fL (36.4-46.3); Red Blood Count 3.54 Miln/mm3 (4.00-5.20); White Blood Count 16.9 Thou/mm3 (3.6-11.0)
[2025-03-31] MEDS: cefTRIAXone 2 GM in SODIUM CHLORIDE 0.9% (Popper) 50 ML IV (09:02)
[2025-03-31 09:20] LABS: INR 1.1 (0.9-1.3); Partial Thromboplastin Time 28.0 Seconds (22.0-36.0); Prothrombin Time 11.7 Seconds (9.0-12.2)
[2025-03-31 09:24] LABS: Alanine Aminotransferase 70 U/L (10-49); Albumin, Serum 3.2 gm/dL (3.5-5.0); Albumin/Globulin Ratio 1.4 (1.2-2.2); Alkaline Phosphatase 112 U/L (46-116); Anion Gap 14 (7-16); Aspartate Amino Transferase 76 U/L (0-34); BUN/Creatinine Ratio 10 Ratio (12-20); Bilirubin,Total 0.4 mg/dL (0.3-1.2); Blood Urea Nitrogen 32 mg/dL (9-23); Calcium 8.9 mg/dL (8.3-10.6); Calcium (Corrected) 9.5 mg/dL (8.5-10.1); Carbon Dioxide 24.7 mMol/L (20.0-31.0); Chloride 100 mMol/L (98-107); Creatinine (Component) 3.1 mg/dL (0.6-1.3); Estimated Creatinine Clearance 20.9 mL/min (>60); Globulin 2.3 gm/dL (2.3-3.5); Glucose 175 mg/dL (74-106); Osmolality,Calculated 288 (275-295); Potassium 3.8 mMol/L (3.4-5.1); Sodium 139 mMol/L (136-145); Total Protein 5.5 gm/dL (5.7-8.2); eGFR 17 See Note
--- NOTE | 2025-03-31 09:47 | XR_ITS ---
Examination: CTA chest, with intravenous contrast. CTA abdomen, with intravenous contrast. CTA pelvis, with intravenous contrast. 2-D sagittal and coronal reconstructions. 3-D reconstructions. Date and time of exam: March 31, 2025 1408 hours INDICATIONS: Unresponsive patient with multiple embolic acute infarcts on brain MRI this morning CTDI vol (mgy) 20.3 DLP (MGycm) 1272 Technique: Multiple CTA images, 2.0 mm slice thickness, obtained chest, abdomen, pelvis, with the high-resolution 64 slice scanner. 100 cc Isovue-370 is administered intravenously. Sagittal and coronal 2-D reconstructions are obtained. 3-D reconstructions, angiographic images are obtained. 3-D postprocessing, including vascular maximum intensity projections. Low dose protocols were performed. One or more of the following dose reduction techniques were used; automated exposure control, adjustment of the mA and/or KV according to patient size, use of iterative reconstruction technique. Findings: No thoracic aortic aneurysm dilatation Positive for pulmonary artery emboli in left upper lobe, bilateral lower lobe as well as right upper lobe pulmonary arteries No left atrial thrombus depicted Large splenic artery infarct with decreased opacification splenic parenchyma and thrombus in upper lobe splenic artery Mild enlargement cardiac contour COPD Pneumonia versus infarction in the right upper lobe and both bases IMPRESSION: No left atrial thrombus noted Again noted pulmonary artery emboli in upper and lower lobe pulmonary artery branches Pneumonia versus infarction in the right upper lobe and both bases Large splenic infarct with thrombus in upper lobe splenic arteries
[2025-03-31] MEDS: VANCOMYCIN/NS 500 MG IVPB 100 ML 120 MG IV (09:49)
[2025-03-31] MEDS: DEXMEDETOMIDINE 400 MCG IVPB 400 MCG/100 ML BAG IV (10:30)
--- NOTE | 2025-03-31 10:43 | PD.RESPRO ---
Documentation for date of: 03/31/25 Subjective Subjective Interval history: Reason for consult: KINJAL, oligoanuria-needing CRRT History of present illness: (patient was intubated during this ticket writer's visit so the following narrative was constructed primarily via chart checking) Vashti Ross is a 59-year-old F with a PMH of diabetes, hypertension, asthma, substance use disorder (including opiates, probable methamphetamine, and marijuana) on methadone previously, and a chronic right leg wound brought in by ambulance from her home for altered mental status. Per ED rendition of EMS report, patient was noted to be altered with a respiratory rate of 4 en route to [facility]. A total of 8 mg of Narcan was administered at this time which initially improved mentation. Upon arrival, patient was noted to be somnolent and given an additional 0.4 mg of IV Narcan which made her more active but also more combative. She was also noted to be hypoxic and in respiratory distress upon arrival which led her to be put on BiPAP. During her agitated episode, patient endorsed that she hurt all over and loudly yelled that I gotta get out of here . She was eventually given 2 mg of IV Versed and put on restraints due to her continued agitation. Later, she was taken for an MRI which required removal of her BiPAP but upon removal a subsequent drop in O2 saturation to the low 90s was noted. It was deemed that her airway was not secure and the decision was made to intubate the patient. After the MRI was performed, patient was eventually admitted to the ICU. From family collateral, it was learned that patient's last known well time was 22:30 on 03/26. Patient had been found on the floor by her at 05:00 on 03/27 whereupon he tried to rouse her from her stupor, failed, called patient's sister to notify her about patient's condition, and finally left her to go to work. Patient's sister arrived around 09:00 and found patient still lying on the bathroom whereupon this ticket writer assumes she called for an ambulance to bring the patient to the ED. In the ED, vitals showed: BP 107/78 HR 94 RR 35 Temp 101.3 SpO2 98% on 15 L BiPAP ED Course: CBC showed high WBC 13.1 w/ neutrophilic predominance but was otherwise WNL. Coagulation panel showed high PT 13.3. ABG showed acidic pH 7.27, normal pCO2 40, high pO2 146, low HCO3 18. CMP showed low carbon dioxide 18.1, high anion gap 19, high creatinine 2.8, low eGFR 19, very high blood glucose 550, very high lactic acid 4.7, high bilirubin 1.6, high AST 146, high ALT 61, high total creatine kinase 9752, very high troponin I 0.427, high BNP 297, and high procalcitonin 43.23. UA showed 2+ protein, 3+ glucose, 1+ ketones, 3+ blood, high RBC 10, high WBC 112, 3+ calcium oxalate crystals, 4+ bacteria, normal random sodium 34.2, normal random potassium 26, and low random chloride 23.2. UDS was (+) for amphetamines/methamphetamines and marijuana. Serological studies were reactive for hepatitis C antibody. Imaging: Head CT showed findings most consistent with acute right frontal lobe infarcts. Brain MRI showed multiple embolic-type foci of restricted diffusion in the bilateral occipital lobes, bilateral frontal lobes, and bilateral parietal lobes most consistent with acute infarcts. CXR showed bibasilar pneumonia and findings suspicious for mild associated heart failure. Renal US showed small kidneys with right renal cortical thinning as well as mild right and moderate left renal parenchymal scar formation. Carotid doppler study showed 20-40% stenosis of the right internal carotid artery and 0-10% stenosis of the left internal carotid artery. EKG was unremarkable. In the ED, patient was given Duoneb Precedex, doxycycline, etomidate, Lasix, regular insulin, ketamine, Versed, naloxone, 1 L LR bolus, Zemuron, and 1 L NS bolus. Patient was intubated due to low GCS and was admitted to the ICU. Nephrology was consulted due to patient's need for urgent hemodialysis. Neurology is also following. Interval History 03/28/2025: No overnight events. Patient seen and examined at bedside; they remained intubated and unable to describe their current experience. Notable labs today include: WBC bump to 15.7 from 15.0, creatinine drop to 1.6 from 2.4, blood glucose 170, AST drop to 148 from 179, ALT dropped to 104 from 114, total CK drop to 3666 from 5964, and troponin I drop to 8.789 from 14.934. Urine culture was positive for E. coli and 1 of 2 blood cultures was positive for GPC's (current speciation still pending). She remains without urinary output and has required CRRT. Her echocardiogram came back today showing decreased ejection fraction of 40 to 45% along with vegetations of the tricuspid valve (suggestive of endocarditis). From nephrology's standpoint, patient will be receiving hemodialysis today. 03/29/2025: Patient seen and examined in the ICU. Intubated and unable to follow commands. On exam, she opens eyes spontaneously, extremities are cold and edematous. she remains on pressors,BP 90s/50s wbc 16.8, Cr 1.8 from 1.3.Extensive chronic nonocclusive DVT involving the common femoral left superficial femoral, popliteal, peroneal, posterior tibial and greater saphenous veins HD today 03/30/2025: Patient seen and examined in the ICU, yesterday she was noted to be following commands in the afternoon, today however she is on several sedative medications. She remains on pressors, BP 110s to 120s/60s, WBC 11 from 16. LFT downtrending. BUN 25 from 18, Cr 2.4 from 1.8. On exam her LLE has dark fourth toe and big toe suspect embolic etiology, pending IVC filter per primary team. 03/31/2025: Patient seen and examined in the ICU, pt is noted to be able to follow simple comands, she remains intubated. SBP 130s-160s. WBC 16 from 11, BUN 32 from 25, Cr 3.1 from 2.4. IVC filter placement scheduled for today. SYLVIE yesterday had showed atrial septal aneurysm, likely source of embolic strokes in the setting of DVT. Currently holding off on anticoagulation due to concern for hemorrhagic conversion of infarct per CARDS, Dr Fernandez recommended transfer to [facility] for closure of shunt. Plan for HD today. Exam Vital Signs Temp Pulse Resp BP Pulse Ox O2 Del Method O2 Flow Rate 98.4 F 72 26 H 137/66 H 88 L Mechanical Ventilation 15 03/31/25 08:01 03/31/25 10:30 03/31/25 07:37 03/31/25 10:30 03/31/25 10:30 03/31/25 08:01 08/14/25 10:59 FiO2 40 03/31/25 09:17 Narrative Exam General: Off sedation, mechanically ventilated. Able to follow simple commands. HEENT: Normocephalic, atraumatic, mucous membranes moist. Heart: Regular rate and rhythm, no murmurs. Lungs: Clear to auscultation . Abdomen: Soft, nondistended, nontender, positive bowel sounds. ?No guarding or rebound tenderness. Neurologic: Off sedation, mechanically ventilated. Extremities: Noted improvement bilateral pitting edema edema extending up to the knees, noted surgical scar on the left knee likely from TKR. Noted chronic wound of 5 x 6 cm in the right lower extremity. Noted tissue pressure injuries on the upper lateral right and left thigh. Also noted infected area in the right toe. Peripheral pulses are difficult to appreciate by palpation. There is demarcated ischemia of left foot of 1st and 4th digit. L knee surgical scar. UE bandaged. and restrained Objective Labs 03/31/25 08:22 03/31/25 08:22 Labs: Laboratory Results - last 24 hr 03/30/25 03/30/25 03/31/25 12:39 18:25 04:40 WBC RBC Hgb 10.8 L Hct 34.1 L MCV MCH MCHC RDW Std Deviation Plt Count Neut % (Auto) Lymph % (Auto) [place] % (Auto) Eos % (Auto) Baso % (Auto) Neut # (Auto) Lymph # (Auto) [place] # (Auto) Eos # (Auto) Baso # (Auto) Immature Gran # (Auto) Absolute Nucleated RBC Immature Gran % Nucleated RBC % ESR 79 H PT INR APTT Puncture Site Arterial Line ABG pH 7.39 ABG pCO2 41 ABG pO2 63 L ABG HCO3 25 ABG O2 Saturation 92 ABG Base Excess 0 FiO2 50 Sodium Potassium Chloride Carbon Dioxide Anion Gap BUN Creatinine Estim Creat Clear Calc eGFR BUN/Creatinine Ratio Glucose Calculated Osmolality Calcium Corrected Calcium Total Bilirubin AST ALT Alkaline Phosphatase Total Creatine Kinase 1187 H D C-Reactive Prot, Quant 22.1 H Total Protein Albumin Globulin Albumin/Globulin Ratio Tumor Marker AFP 2.00 Carcinoembryonic Ag 4.8 Random Vancomycin HIV 1&2 Antibody Rapid Non-Reactive 03/31/25 03/31/25 04:43 08:22 WBC 16.9 H D RBC 3.54 L Hgb 10.4 L Hct 33.2 L MCV 94 MCH 29.4 MCHC 31.3 RDW Std Deviation 52.0 H Plt Count 157 Neut % (Auto) 62 Lymph % (Auto) 13 [place] % (Auto) 7 Eos % (Auto) 1 Baso % (Auto) 0 Neut # (Auto) 10.6 H Lymph # (Auto) 2.3 [place] # (Auto) 1.2 H Eos # (Auto) 0.2 Baso # (Auto) 0.0 Immature Gran # (Auto) 2.66 H Absolute Nucleated RBC 0.08 H Immature Gran % 16 H Nucleated RBC % 1 H ESR PT 11.7 INR 1.1 APTT 28.0 Puncture Site ABG pH ABG pCO2 ABG pO2 ABG HCO3 ABG O2 Saturation ABG Base Excess FiO2 Sodium 139 Potassium 3.8 Chloride 100 Carbon Dioxide 24.7 Anion Gap 14 BUN 32 H Creatinine 3.1 H D Estim Creat Clear Calc 20.9 L eGFR 17 L BUN/Creatinine Ratio 10 L Glucose 175 H Calculated Osmolality 288 Calcium 8.9 Corrected Calcium 9.5 Total Bilirubin 0.4 AST 76 H ALT 70 H Alkaline Phosphatase 112 Total Creatine Kinase C-Reactive Prot, Quant Total Protein 5.5 L Albumin 3.2 L Globulin 2.3 Albumin/Globulin Ratio 1.4 Tumor Marker AFP Carcinoembryonic Ag Random Vancomycin 16.4 HIV 1&2 Antibody Rapid ABG Interpretation ABG results: 03/26/25 03/26/25 03/26/25 11:18 11:44 16:23 ABG pH 7.27 L Cancelled ABG pCO2 40 Cancelled ABG pO2 146 H Cancelled ABG HCO3 18 L Cancelled ABG O2 Saturation 100 H Cancelled ABG Base Excess -8 L Cancelled VBG pH 7.19 L VBG pCO2 48 VBG pO2 37 VBG Base Excess -10 L 03/26/25 03/27/25 03/27/25 18:43 00:17 03:42 ABG pH 7.16 L* D 7.24 L Cancelled ABG pCO2 58 H D 44 D Cancelled ABG pO2 68 L D 80 L Cancelled ABG HCO3 21 19 L Cancelled ABG O2 Saturation 90 L 96 Cancelled ABG Base Excess -9 L -8 L Cancelled VBG pH VBG pCO2 VBG pO2 VBG Base Excess 03/27/25 03/27/25 03/27/25 04:04 07:55 18:48 ABG pH 7.26 L 7.30 L ABG pCO2 43 37 ABG pO2 83 174 H D ABG HCO3 19 L 18 L ABG O2 Saturation 97 101 H ABG Base Excess -7 L -8 L VBG pH 7.21 L 7.31 L VBG pCO2 49 48 VBG pO2 54 52 VBG Base Excess -8 L -2 03/27/25 03/28/25 03/28/25 19:07 04:06 13:37 ABG pH 7.36 7.38 7.41 ABG pCO2 41 45 44 ABG pO2 79 L D 73 L 105 D ABG HCO3 23 27 H 27 H ABG O2 Saturation 97 96 99 H ABG Base Excess -2 1 2 VBG pH VBG pCO2 VBG pO2 VBG Base Excess 03/29/25 03/30/25 03/31/25 04:45 04:50 04:40 ABG pH 7.38 7.42 7.39 ABG pCO2 45 40 41 ABG pO2 72 L D 66 L 63 L ABG HCO3 27 H 26 25 ABG O2 Saturation 98 93 92 ABG Base Excess 1 2 0 VBG pH VBG pCO2 VBG pO2 VBG Base Excess Quality Measures Quality Measures VTE prophylaxis Assessment & Plan Assessment Current Active Medications: Generic Name Dose Route Start Last Admin Trade Name Freq PRN Reason Stop Dose Admin Acetaminophen 650 mg 03/26/25 18:58 Acetaminophen 325 Mg Tablet PO 04/25/25 18:57 Q4HR PRN Pain Scale 1-3 fever >100.4 Albuterol/Ipratropium 3 ml 03/27/25 01:00 03/31/25 06:24 Albuterol/Ipratropium (Duoneb) Rt Jennifer 3 Ml Nebu INH 04/26/25 00:59 3 ml Q6HRRT CRIS Administration Atorvastatin Calcium 80 mg 03/26/25 21:00 03/30/25 21:55 Atorvastatin Calcium 20 Mg Tablet PO 04/25/25 20:59 80 mg HS CRIS Administration Atropine Sulfate 1 mg 03/30/25 10:33 Atropine Sulf Inj 0.1 Mg/Ml Syr 10 Ml IV 04/29/25 10:32 X1 PRN Bradycardia < 35 for greater t Dextrose 25 ml 03/26/25 20:20 Dextrose 50%-Water Inj 50 Ml Syringe IV 04/25/25 20:19 Q15MIN PRN BG 50-70 responsive npo pt Dextrose 50 ml 03/26/25 20:20 Dextrose 50%-Water Inj 50 Ml Syringe IV 04/25/25 20:19 Q15MIN PRN BG <50 OR BG <70 & pt unresponsive Glucagon 1 mg 03/26/25 20:20 Glucagon Inj 1 Mg Vial IM Q15MIN PRN BG <70, and no IV access Heparin Sodium (Porcine) 5,000 unit 03/27/25 14:00 03/31/25 05:57 Heparin Sod Inj 5000 Unit/Ml Vial SC 04/10/25 13:59 5,000 unit Q8HR CRIS Administration Heparin Sodium (Porcine) 2,600 unit 03/28/25 19:33 03/30/25 14:24 Heparin Sod Inj 1000 Unit/Ml Vial 10 Ml INDWELLCAT 04/11/25 19:32 2,600 unit X1 PRN Administration DIALYSIS Norepinephrine/Dextrose 8 mg in 250 mls @ 8.292 mls/hr 03/26/25 19:50 03/31/25 08:00 Levophed In D5w 8mg/250ml IV 04/25/25 19:49 0 mcg/kg/min .Q24H PRN 0 mls/hr PER PROTOCOL Titration Protocol 0.05 MCG/KG/MIN Dexmedetomidine/Sodium Chloride 400 mcg in 100 mls @ 4.423 mls/hr 03/26/25 23:53 03/31/25 09:17 Precedex Ivpb IV 04/25/25 14:17 Infused .[id number] PRN Titration Per PROTOCOL Protocol 0.2 MCG/KG/HR Fentanyl Citrate 2,500 mcg in 250 mls @ 2.5 mls/hr 03/26/25 23:53 03/31/25 07:12 Sublimaze Inj 2,500 Mcg/250 Ml Bag IV 03/31/25 23:52 0 mcg/hr .Q24H PRN 0 mls/hr PER PROTOCOL Titration Protocol 25 MCG/HR Propofol 1,000 mg in 100 mls @ 2.799 mls/hr 03/27/25 17:34 03/31/25 07:12 Diprivan Ivpb IV 04/26/25 17:33 0 mcg/kg/min .Q24H PRN 0 mls/hr PER PROTOCOL Titration Protocol 5 MCG/KG/MIN Epinephrine/Sodium Chloride 16 mg in 250 mls @ 4.416 mls/hr 03/28/25 16:28 Adrenalin/Ns 16 Mg Ivpb IV 04/27/25 16:27 .Q24H PRN Per Protocol Protocol 0.05 MCG/KG/MIN Albumin Human 25 gm in 100 mls @ 100 mls/min 03/29/25 10:36 03/29/25 14:38 Albuminar-25 Ivpb IV 100 mls/min PRN PRN Administration DIALYSIS Ceftriaxone Sodium 2 gm/ 50 mls @ 100 mls/hr 03/30/25 10:45 03/31/25 09:02 Sodium Chloride IV 04/06/25 10:44 100 mls/hr QDAY CRIS Administration Vancomycin/Sodium Chloride 100 mls @ 120 mls/hr 03/31/25 10:00 03/31/25 09:49 Vancomycin/Ns 500 Mg Ivpb IV 03/31/25 10:49 120 mls/hr X1 ONE Administration Insulin Degludec 20 unit 03/30/25 21:00 03/30/25 21:55 Insulin Degludec 5 Unit/0.05 Ml (Per 5 Units) SC 04/29/25 20:59 Not Given HS CRIS Insulin Human Lispro 0 unit 03/27/25 06:33 03/31/25 05:52 Insulin Lispro (Admelog) 1 Unit/0.01 Ml Unit SC 04/25/25 20:29 Not Given Q6HR [facility] Protocol Mupirocin 0 gm 03/29/25 08:30 03/31/25 05:58 Mupirocin Oint 2% 15 Gm Tube TOP 04/05/25 08:29 1 applicatio TID CRIS Administration Pantoprazole Sodium 40 mg 03/26/25 19:15 03/31/25 09:03 Pantoprazole Inj 40 Mg Vial IVP 04/25/25 19:14 40 mg QDAY CRIS Administration Pharmacy Consult 1 each 03/26/25 19:15 03/31/25 09:53 Vancomycin Pharmacy To Dose 1 Each Each IV 04/25/25 19:14 Not Given QDAY CRIS Plan Vashti Ross is a 59-year-old F with a PMH of diabetes, hypertension, asthma, substance use disorder (including opiates, probable methamphetamine, and marijuana) on methadone previously, and a chronic right leg wound brought in by ambulance from her home for altered mental status. Patient was intubated due to low GCS and was admitted to the ICU. echo with tricuspid vegitations and EF 40-45%, pt with extensive PE and extensive non occlusive DVT of LLE, SYLVIE performed yesterday revealed atrial septal aneurysm, likely source of embolic strokes in the setting of DVT. per cards, holding off on anticoagulation due to concern for hemorrhagic conversion of infarct. Dr Fernandez recommended transfer to [facility] for closure of shunt. s/p IVC filter today, Plan for HD today #KINJAL vs. KINJAL on CKD vs. CKD Stage IV #likely 2/2 multifactorial etiologies including intravascular depletion, diabetic nephropathy, blood pressure derangements, glomerular diseases, sepsis-induced ATN, rhabdomyolysis, cardiorenal syndrome, crystalline nephropathy associated with oxalate, or atheroembolic disease #Rhabdomyolysis Admission creatinine 2.8 (baseline: unknown), eGFR 19 Other notable labs include: blood glucose 550, total CK 9752, troponin 0.427, UDS(+) for amphetamines/methamphetamines on 03/29 BUN 18 from 12, Cr 1.8 from 1.3 on 03/30 BUN 24 from 18, Cr 2.4 from 1.8 on 03/31 BUN 32 from 24, Cr 3.1 from 2.4 HD: 03/28 CRRT, HD 03/29, 03/30, 03/31 Treatment Plan -HD today -Monitor renal panel -Avoid nephrotoxic agents (aminoglycosides, NSAIDs, radiographic contrast) -Adjust medication dosing based on patient's impaired renal function -Hold any KRISSY/ARB/diuretics #Other medical problems #CVA #Acute encephalopathy #NSTEMI, Type 1 vs Type 2 #Multiple PE - CTA Positive for multiple right lower lobe pulmonary artery and left upper lobe pulmonary artery emboli #Extensive nonocclusive DVT LLE -s/p IVC filter #CHF - echo with EF 40 -45% #Endocarditis -TTE with tricuspid vegitations #Atrial aneurysm - SYLVIE with Atrial septal aneurysm present and bubble study positive for PFO especially with increased right atrial pressure. - pending transfer for repair shunt #Acute hypoxic respiratory failure #Respiratory acidosis #Community-acquired pneumonia #Transaminitis + hyperbilirubinemia #HAGMA #Hx of T2DM #Leukocytosis uptrending #septic shock #Left toes gangreen vs Atheroembolism of left lower extremity toes -Continue management per primary care team (ICU) Plan discussed with nephrology attending Dr. Nathalie Vallejo MD Internal Medicine PGY-1 Attending Provider Attestation/Addendum Patient seen and examined with resident physician Dr. Vallejo. Note reviewed, agree with findings and recommendations. Patient currently seen in ICU. Currently on pressors. Significant edema noted. Patient received 2 days of CRRT. On minimal dose of pressors. Decided to proceed with conventional dialysis. Patient currently seen on dialysis. Tolerating dialysis without any problems. Hemodialysis for 3 hours, 2K, ultrafiltration 2-3 L, Epogen 6000, no heparin ordered. Plan of care discussed with the dialysis nurse. Please see dialysis flowsheet for further details. Plan of care discussed with the ICU nurse. Spoke to ICU team, Dr. Grady. Critical care time spent more than 35 minutes regarding plan of care and disease management. Thank you Luann for allowing me to participate in the care of Ms. Kingston
--- NOTE | 2025-03-31 11:31 | PD.INTPROG ---
Documentation for date of: 03/31/25 Subjective Subjective Interval history: This is a 59-year-old female who presented to the ER on 26 March. She was brought to the ER for altered mentation. She was found unresponsive lying on the bathroom floor. Her last known well time was 1030 night prior. Upon arrival to the ER she was found to be altered slightly combative. However her mental status declined and she was ultimately intubated for airway protection with a GCS less than 8. She was also noted to have rhabdomyolysis and acute kidney injury. MRI revealed multiple embolic infarcts bilaterally throughout all hemispheres. She was initially hypotensive and given IV fluids for resuscitation however she remained hypotensive requiring vasopressor support. Cultures were obtained. Urine culture was positive for E. coli. 1 out of 2 blood culture on arrival was positive for GPC's current speciation still pending. She is on broad-spectrum antibiotic coverage. She has had no urinary output and has required CRRT. 03/28-her echocardiogram came back overnight which shows a decreased EF of 40 to 45% along with vegetations on tricuspid valve. She remains afebrile with a Tmax of 100.2 yesterday afternoon. She has had minimal urinary output. She does wake up and become restless and agitated when sedation is lightened. 03/29-no acute overnight events, patient underwent CT angio of the chest overnight which demonstrated multiple PEs both on the left and right. Continues to be in a virtually anuric state with minimal urinary output and approximately 5 cc an hour. She is afebrile. She is agitated when sedation is lightened however does not follow commands 03/30-no acute overnight events, this morning when sedation held the patient is able to follow commands. Remains with minimal urinary output though appears to have picked up a little bit this morning, afebrile , yesterday underwent transesophageal echocardiogram where a atrial septal aneurysm was noted as well as a small PFO. There were no vegetations reported on any of the valves Critical Care Note Critical care time (min.): 50 Exam Vital Signs Temp Pulse Resp BP Pulse Ox O2 Del Method O2 Flow Rate 98.4 F 72 26 H 137/66 H 88 L Mechanical Ventilation 15 03/31/25 08:01 03/31/25 10:30 03/31/25 07:37 03/31/25 10:30 03/31/25 10:30 03/31/25 08:01 03/26/25 10:59 FiO2 40 03/31/25 09:17 Narrative Exam General-intubated, sedated, obese body habitus, GCS 11 T when stimulated HEENT-normocephalic, atraumatic, sclera anicteric, pupils equal and reactive, oral mucosa is hydrated, ET tube in OG tube Chest-lungs clear to auscultation bilaterally, heart rate regular rhythmic, no bridge murmurs auscultated times exam, no increase in work of breathing Abdomen-obese, soft, nontender, bowel sounds present, no rebound or guarding Extremities- improving edema of bilateral lower extremities,ischemic area on left great toe and left fifth toe, pulses palpable, no clubbing, no mottling, patient does appear to move all 4 extremities Vent PSV Drips Propofol Precedex Fentanyl Physical Exam Completion Physical Exam Complete?: Yes 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 [employer] Labs 03/31/25 08:22 03/31/25 08:22 Labs: Laboratory Results - last 24 hr 03/30/25 03/30/25 03/31/25 12:39 18:25 04:40 WBC RBC Hgb 10.8 L Hct 34.1 L MCV MCH MCHC RDW Std Deviation Plt Count Neut % (Auto) Lymph % (Auto) [place] % (Auto) Eos % (Auto) Baso % (Auto) Neut # (Auto) Lymph # (Auto) [place] # (Auto) Eos # (Auto) Baso # (Auto) Immature Gran # (Auto) Absolute Nucleated RBC Immature Gran % Nucleated RBC % ESR 79 H PT INR APTT Puncture Site Arterial Line ABG pH 7.39 ABG pCO2 41 ABG pO2 63 L ABG HCO3 25 ABG O2 Saturation 92 ABG Base Excess 0 FiO2 50 Sodium Potassium Chloride Carbon Dioxide Anion Gap BUN Creatinine Estim Creat Clear Calc eGFR BUN/Creatinine Ratio Glucose Calculated Osmolality Calcium Corrected Calcium Total Bilirubin AST ALT Alkaline Phosphatase Total Creatine Kinase 1187 H D C-Reactive Prot, Quant 22.1 H Total Protein Albumin Globulin Albumin/Globulin Ratio Tumor Marker AFP 2.00 Carcinoembryonic Ag 4.8 Random Vancomycin HIV 1&2 Antibody Rapid Non-Reactive 03/31/25 03/31/25 04:43 08:22 WBC 16.9 H D RBC 3.54 L Hgb 10.4 L Hct 33.2 L MCV 94 MCH 29.4 MCHC 31.3 RDW Std Deviation 52.0 H Plt Count 157 Neut % (Auto) 62 Lymph % (Auto) 13 [place] % (Auto) 7 Eos % (Auto) 1 Baso % (Auto) 0 Neut # (Auto) 10.6 H Lymph # (Auto) 2.3 [place] # (Auto) 1.2 H Eos # (Auto) 0.2 Baso # (Auto) 0.0 Immature Gran # (Auto) 2.66 H Absolute Nucleated RBC 0.08 H Immature Gran % 16 H Nucleated RBC % 1 H ESR PT 11.7 INR 1.1 APTT 28.0 Puncture Site ABG pH ABG pCO2 ABG pO2 ABG HCO3 ABG O2 Saturation ABG Base Excess FiO2 Sodium 139 Potassium 3.8 Chloride 100 Carbon Dioxide 24.7 Anion Gap 14 BUN 32 H Creatinine 3.1 H D Estim Creat Clear Calc 20.9 L eGFR 17 L BUN/Creatinine Ratio 10 L Glucose 175 H Calculated Osmolality 288 Calcium 8.9 Corrected Calcium 9.5 Total Bilirubin 0.4 AST 76 H ALT 70 H Alkaline Phosphatase 112 Total Creatine Kinase C-Reactive Prot, Quant Total Protein 5.5 L Albumin 3.2 L Globulin 2.3 Albumin/Globulin Ratio 1.4 Tumor Marker AFP Carcinoembryonic Ag Random Vancomycin 16.4 HIV 1&2 Antibody Rapid Assessment & Plan Problem List (1) Ischemic cerebrovascular accident (CVA): Status: Acute (2) Uncontrolled diabetes mellitus: Status: Acute (3) Pneumonia: Status: Acute Additional Assessment Additional Assessment: In summary this is a 59-year-old female admitted to the ICU with septic shock, acute renal failure and acute 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 Encephalopathy- multifactorial and related to both metabolic issues and mult acute embolic strokes -Patient is off all sedation - Gradual improvement Embolic CVA- 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 -Neurology consulted -Repeat head CT read as new lesions question of hemorrhage -Given the results of the patient's transesophageal echocardiogram yesterday which did not show any valvular lesions unclear the source of patient's emboli -Will perform CT angio of the aorta to evaluate for pathology -Patient's PEs can be explained by her lower extremity DVT however her multiple embolic CVAs and evidence of distal embolic events are unclear Drug use-utox pos for meth - Unclear if there is any IVDA CV Endocarditis-this diagnosis does not appear to be present now - Her echocardiogram reported a tricuspid vegetation however this was not seen on transesophageal echocardiogram. There were no valvular lesions reported - She does not have any persistently positive blood cultures Troponinemia-this was in the setting of shock followed by extreme hypertension -Patient had had a systolic blood pressure in the 60s on vasopressors and then systolic blood pressure increased to 300 which rapidly dropped once pressors were held -Patient's troponin of 20 at 3 PM 03/27 likely related to this event now trending down -On aspirin and statin - EKG obtained -Discussed with cardiology Shock-currently resolved Heart failure with reduced EF-patient's echocardiogram reported EF of 40 to 45% -Will need additional workup once she is overall improved -Will need beta-alisia and ACEI/ARB Ischemic left toe-this has been delineated and does not appear to be increasing -May be secondary to vasopressors versus embolic shower to the foot - arterial doppler did not show occlusion or severe PAD - Will eventually need surgical consultation for possible amputation of toe Resp Acute respiratory failure- improved - Today she has good weaning parameters and will extubate Pulmonary embolism- 2/2 LE DVT - has mult embolic CVAs with some hemorrhagic component - place IVC filter due to bleeding risk Pneumonia-patient's cultures grew out strep pneumo and Klebsiella pneumo both are pansensitive -Continue for 7 days of antibiotics Renal Acute renal failure-in the setting of sepsis, shock and rhabdomyolysis -Likely secondary to rhabdo with a component of sepsis -Given her embolic CVAs cannot rule out embolic event to the kidneys as well - No significant renal recovery as of yet - Continues on intermittent hemodialysis Rhabdomyolysis-improved GI GI prophylaxis-currently on a PPI Hepatitis C-this is a new diagnosis and will need follow-up as an outpatient Transaminitis-patient's LFTs were elevated upon arrival - This is in the setting of shock and therefore may be related to an ischemic hepatitis - Patient does also have positive hepatitis C therefore the elevated LFTs may also be due to active hep C - Currently improving Nutrition- NPO till swallow eval Endo Diabetes-poorly controlled, she has been started on long-acting along with a sliding scale - Adjust as needed Heme Leukocytosis-likely secondary to underlying infection -More or less stable Anemia- no active bleeding - stable DVT prophylaxis-heparin 5000 units every 8 ID Sepsis-2/2 PNA - bcx grew staph hominis -> likely contaminant - sputum cx with strep and klebsiella UTI-her urine culture grew out E. coli which is pansensitive Right lower extremity ulcer- x-ray performed and shows question of cortical thickening and recommended MRI to eval for osteo Case discussed with ICU team and nephrology d/w cardiology yesterday who recommended transfer for repair of PFO and aneurysm Labs, imaging and records reviewed Approximately 50 critical care minutes required for evaluation, exam, review, intervention, discussion formation plan of care for this critically ill patient with shock and respiratory failure at high risk for further ongoing decompensation Provider Notation Provider Notation: Although this document has been carefully reviewed, there may still be some phonetic and other typographical errors. These errors are purely grammatical due to imperfections in the software program and should not be construed in any way to compromise the substance of the patient's medical care during this visit. Thank you for the opportunity and privilege in assisting you with this patient's care and management.
[2025-03-31] MEDS: HALOPERIDOL LACT INJ 5 MG/ML VIAL IV (13:39)
--- NOTE | 2025-03-31 14:41 | PD.RESPRO ---
Documentation for date of: 03/31/25 Subjective Subjective Interval history: Patient is a 59 year old female with a past medical history of hypertension, diabetes mellitus, asthma, chronic right leg wound who was admitted on 03/26/2025 stroke, with multiple embolic type foci who required ICU for mechanical ventilation as patient unable to protect airway. 03/30/2025: Patient is currently schedule for SYLVIE at 2 PM. Weaned off sedation and able to follow commands. Currently holding off heparin drip until SYLVIE, edema and possible hemorrhage noted on repeat Ct. 03/31/2025: Overnight, ICU team spoke with cardiothoracic surgeon, given small PFO currently hodling off transfer until they speak with neurology. Given concern for cerebral edema and possible hemorrhage no anticoagulation. Primary team ordered IVC filter given new emoblic like strokes, placement completed. Precedex resumed, propofolol, and fentany. Chest/Abdomen/Pelvis CTA obtained noted penumonia versus infarct in the right upper lobes and both bases. Large splenic infract with thrombus in upper lobe splenic arteries (consider follow up, US) Exam Vital Signs Temp Pulse Resp BP Pulse Ox O2 Del Method O2 Flow Rate 98.4 F 73 23 H 158/69 H 93 L Oxy Mask 6 03/31/25 08:01 03/31/25 13:12 03/31/25 13:12 03/31/25 13:12 03/31/25 13:12 03/31/25 13:12 03/31/25 13:12 FiO2 40 03/31/25 09:17 Narrative Exam General Appearance: Alert & Oriented X0, well-nourished female who is lying in bed in mild distress, left 1st and 2nd digit noted for echomosis. HEENT: Skull symmetrical and atraumatic. Conjunctivae pale pink and moist. Pupils equal, round, reactive to light and accommodation (PERRL). External ear without lesion or discharge. Straight, nares patient, mucosa pink, no discharge. No thyroid nodule appreciated. Cardio: Normal Rate and Rhythm with S1 and S2 heart sounds. No murmurs or extra heart sounds auscultated. No bruits on carotid auscultation. No peripheral edema or cyanosis. Lungs: Symmetric with good expansion. Chest and back non-tender. Breath sounds vesicular without crackles, wheezing or rhonchi Abdomen: Non-tender, Non-distended, Normal Reactive Bowel Sounds Neuro: Alert, Yes cooperative, oriented to person, place, and time. Speech not clear as pateint is currently sedated. CN grossly intact. Upper motor strength 4/5 and Lower motor strength 4/5. withdrawals to painful stimuli Objective Labs 04/01/25 04:44 04/01/25 04:44 Labs: Laboratory Results - last 24 hr 03/30/25 03/30/25 03/31/25 12:39 18:25 04:40 WBC RBC Hgb Hct MCV MCH MCHC RDW Std Deviation Plt Count Neut % (Auto) Lymph % (Auto) [place] % (Auto) Eos % (Auto) Baso % (Auto) Neut # (Auto) Lymph # (Auto) [place] # (Auto) Eos # (Auto) Baso # (Auto) Immature Gran # (Auto) Absolute Nucleated RBC Immature Gran % Nucleated RBC % PT INR APTT Puncture Site Arterial Line ABG pH 7.39 ABG pCO2 41 ABG pO2 63 L ABG HCO3 25 ABG O2 Saturation 92 ABG Base Excess 0 FiO2 50 Sodium Potassium Chloride Carbon Dioxide Anion Gap BUN Creatinine Estim Creat Clear Calc eGFR BUN/Creatinine Ratio Glucose Calculated Osmolality Calcium Corrected Calcium Total Bilirubin AST ALT Alkaline Phosphatase Total Creatine Kinase 1187 H D Total Protein Albumin Globulin Albumin/Globulin Ratio Random Vancomycin HIV 1&2 Antibody Rapid Non-Reactive 03/31/25 03/31/25 04:43 08:22 WBC 16.9 H D RBC 3.54 L Hgb 10.4 L Hct 33.2 L MCV 94 MCH 29.4 MCHC 31.3 RDW Std Deviation 52.0 H Plt Count 157 Neut % (Auto) 62 Lymph % (Auto) 13 [place] % (Auto) 7 Eos % (Auto) 1 Baso % (Auto) 0 Neut # (Auto) 10.6 H Lymph # (Auto) 2.3 [place] # (Auto) 1.2 H Eos # (Auto) 0.2 Baso # (Auto) 0.0 Immature Gran # (Auto) 2.66 H Absolute Nucleated RBC 0.08 H Immature Gran % 16 H Nucleated RBC % 1 H PT 11.7 INR 1.1 APTT 28.0 Puncture Site ABG pH ABG pCO2 ABG pO2 ABG HCO3 ABG O2 Saturation ABG Base Excess FiO2 Sodium 139 Potassium 3.8 Chloride 100 Carbon Dioxide 24.7 Anion Gap 14 BUN 32 H Creatinine 3.1 H D Estim Creat Clear Calc 20.9 L eGFR 17 L BUN/Creatinine Ratio 10 L Glucose 175 H Calculated Osmolality 288 Calcium 8.9 Corrected Calcium 9.5 Total Bilirubin 0.4 AST 76 H ALT 70 H Alkaline Phosphatase 112 Total Creatine Kinase Total Protein 5.5 L Albumin 3.2 L Globulin 2.3 Albumin/Globulin Ratio 1.4 Random Vancomycin 16.4 HIV 1&2 Antibody Rapid ABG Interpretation ABG results: 03/26/25 03/26/25 03/26/25 11:18 11:44 16:23 ABG pH 7.27 L Cancelled ABG pCO2 40 Cancelled ABG pO2 146 H Cancelled ABG HCO3 18 L Cancelled ABG O2 Saturation 100 H Cancelled ABG Base Excess -8 L Cancelled VBG pH 7.19 L VBG pCO2 48 VBG pO2 37 VBG Base Excess -10 L 03/26/25 03/27/25 03/27/25 18:43 00:17 03:42 ABG pH 7.16 L* D 7.24 L Cancelled ABG pCO2 58 H D 44 D Cancelled ABG pO2 68 L D 80 L Cancelled ABG HCO3 21 19 L Cancelled ABG O2 Saturation 90 L 96 Cancelled ABG Base Excess -9 L -8 L Cancelled VBG pH VBG pCO2 VBG pO2 VBG Base Excess 03/27/25 03/27/25 03/27/25 04:04 07:55 18:48 ABG pH 7.26 L 7.30 L ABG pCO2 43 37 ABG pO2 83 174 H D ABG HCO3 19 L 18 L ABG O2 Saturation 97 101 H ABG Base Excess -7 L -8 L VBG pH 7.21 L 7.31 L VBG pCO2 49 48 VBG pO2 54 52 VBG Base Excess -8 L -2 03/27/25 03/28/25 03/28/25 19:07 04:06 13:37 ABG pH 7.36 7.38 7.41 ABG pCO2 41 45 44 ABG pO2 79 L D 73 L 105 D ABG HCO3 23 27 H 27 H ABG O2 Saturation 97 96 99 H ABG Base Excess -2 1 2 VBG pH VBG pCO2 VBG pO2 VBG Base Excess 03/29/25 03/30/25 03/31/25 04:45 04:50 04:40 ABG pH 7.38 7.42 7.39 ABG pCO2 45 40 41 ABG pO2 72 L D 66 L 63 L ABG HCO3 27 H 26 25 ABG O2 Saturation 98 93 92 ABG Base Excess 1 2 0 VBG pH VBG pCO2 VBG pO2 VBG Base Excess Quality Measures Quality Measures VTE prophylaxis Assessment & Plan Assessment Current Active Medications: Generic Name Dose Route Start Last Admin Trade Name Alanq PRN Reason Stop Dose Admin Acetaminophen 650 mg 03/26/25 18:58 Acetaminophen 325 Mg Tablet PO 04/25/25 18:57 Q4HR PRN Pain Scale 1-3 fever >100.4 Albuterol/Ipratropium 3 ml 03/27/25 01:00 03/31/25 14:28 Albuterol/Ipratropium (Duoneb) Rt Jennifer 3 Ml Nebu INH 04/26/25 00:59 Not Given Q6HRRT CRIS Atorvastatin Calcium 80 mg 03/26/25 21:00 03/30/25 21:55 Atorvastatin Calcium 20 Mg Tablet PO 04/25/25 20:59 80 mg HS CRIS Administration Atropine Sulfate 1 mg 03/30/25 10:33 Atropine Sulf Inj 0.1 Mg/Ml Syr 10 Ml IV 04/29/25 10:32 X1 PRN Bradycardia < 35 for greater t Dextrose 25 ml 03/26/25 20:20 Dextrose 50%-Water Inj 50 Ml Syringe IV 04/25/25 20:19 Q15MIN PRN BG 50-70 responsive npo pt Dextrose 50 ml 03/26/25 20:20 Dextrose 50%-Water Inj 50 Ml Syringe IV 04/25/25 20:19 Q15MIN PRN BG <50 OR BG <70 & pt unresponsive Glucagon 1 mg 03/26/25 20:20 Glucagon Inj 1 Mg Vial IM Q15MIN PRN BG <70, and no IV access Haloperidol Lactate 5 mg 03/31/25 12:00 Haloperidol Lact Inj 5 Mg/Ml Vial IV 04/05/25 11:59 X1 PRN AGITATION (SEVERE) Heparin Sodium (Porcine) 5,000 unit 03/27/25 14:00 03/31/25 05:57 Heparin Sod Inj 5000 Unit/Ml Vial SC 04/10/25 13:59 5,000 unit Q8HR CRIS Administration Heparin Sodium (Porcine) 2,600 unit 03/28/25 19:33 03/30/25 14:24 Heparin Sod Inj 1000 Unit/Ml Vial 10 Ml INDWELLCAT 04/11/25 19:32 2,600 unit X1 PRN Administration DIALYSIS Norepinephrine/Dextrose 8 mg in 250 mls @ 8.292 mls/hr 03/26/25 19:50 03/31/25 08:00 Levophed In D5w 8mg/250ml IV 04/25/25 19:49 0 mcg/kg/min .Q24H PRN 0 mls/hr PER PROTOCOL Titration Protocol 0.05 MCG/KG/MIN Dexmedetomidine/Sodium Chloride 400 mcg in 100 mls @ 4.423 mls/hr 03/26/25 23:53 03/31/25 11:00 Precedex Ivpb IV 04/25/25 14:17 0.4 mcg/kg/hr .[id number] PRN 8.845 mls/hr Per PROTOCOL Titration Protocol 0.2 MCG/KG/HR Fentanyl Citrate 2,500 mcg in 250 mls @ 2.5 mls/hr 03/26/25 23:53 03/31/25 07:12 Sublimaze Inj 2,500 Mcg/250 Ml Bag IV 03/31/25 23:52 0 mcg/hr .Q24H PRN 0 mls/hr PER PROTOCOL Titration Protocol 25 MCG/HR Propofol 1,000 mg in 100 mls @ 2.799 mls/hr 03/27/25 17:34 03/31/25 07:12 Diprivan Ivpb IV 04/26/25 17:33 0 mcg/kg/min .Q24H PRN 0 mls/hr PER PROTOCOL Titration Protocol 5 MCG/KG/MIN Epinephrine/Sodium Chloride 16 mg in 250 mls @ 4.416 mls/hr 03/28/25 16:28 Adrenalin/Ns 16 Mg Ivpb IV 04/27/25 16:27 .Q24H PRN Per Protocol Protocol 0.05 MCG/KG/MIN Albumin Human 25 gm in 100 mls @ 100 mls/min 03/29/25 10:36 03/29/25 14:38 Albuminar-25 Ivpb IV 100 mls/min PRN PRN Administration DIALYSIS Ceftriaxone Sodium 2 gm/ 50 mls @ 100 mls/hr 03/30/25 10:45 03/31/25 09:02 Sodium Chloride IV 04/06/25 10:44 100 mls/hr QDAY CRIS Administration Insulin Degludec 20 unit 03/30/25 21:00 03/30/25 21:55 Insulin Degludec 5 Unit/0.05 Ml (Per 5 Units) SC 04/29/25 20:59 Not Given HS CRIS Insulin Human Lispro 0 unit 03/27/25 06:33 03/31/25 05:52 Insulin Lispro (Admelog) 1 Unit/0.01 Ml Unit SC 04/25/25 20:29 Not Given Q6HR CRIS Protocol Mupirocin 0 gm 03/29/25 08:30 03/31/25 05:58 Mupirocin Oint 2% 15 Gm Tube TOP 04/05/25 08:29 1 applicatio TID CRIS Administration Pantoprazole Sodium 40 mg 03/26/25 19:15 03/31/25 09:03 Pantoprazole Inj 40 Mg Vial IVP 04/25/25 19:14 40 mg QDAY CRIS Administration Pharmacy Consult 1 each 03/26/25 19:15 03/31/25 09:53 Vancomycin Pharmacy To Dose 1 Each Each IV 04/25/25 19:14 Not Given QDAY CRIS Plan Patient is a 59 year old female with a past medical history of hypertension, diabetes mellitus, asthma, chronic right leg wound who was admitted on 03/26/2025 stroke, with multiple embolic type foci who required ICU for mechanical ventilation as patient unable to protect airway. #Acute Encephaloapthy, likely multifactorial given substance use disorder and CVA #Acute Multiple mbolic type foci occipital lobes, bilateral frontal and bilateral parietal lobe Currently holding off anticoagulation given concern for CT images noted to hemorrhagic areas. Given PE and small PFO, PE could be the cause of embolism vs endocardititis but less likely as negative SYLVIE for vegation. Although leukocytosis noted, less likely secondary to endocarditis in origin and more likely secondary to ischemia vs less likely increased coagulopathy as no previous history of DVTs. IVC filtered ordered by primary team. Lydia would benefit from [facility] per cardiology, likely not a candidate from thrombectomy as patient is unstable. Chest/Abdomen/Pelvis CTA obtained noted penumonia versus infarct in the right upper lobes and both bases. Large splenic infract with thrombus in upper lobe splenic arteries (consider follow up, US to confirm splenic thrombus) CT head Repeat (03/30/2025): Additional focal areas of edema most consistent w/ hemorrhagic infarcts in the left pareital lobe and left occipital lobe MRI: Multiple Embolic type Foci Utox positive: meth and THC Plan: -ICU team working on transfer -continue Atorvastatin 80 mg HS -Holding Aspirin 81 mg HS & Plavix given repeat CT noted edema and possible hemorrhagic infarcts. -EGG pending read -Aspiration precautions. #Shock, improved. #Luekocytosis #Sepsis, concern for bacteremia, concern for endocarditis #CHF HFrEF 40-45% (03/26/2025) #Tricuspid valve vegetation, endocarditis #Acute renal failure #Rhabdomyolysis #Acute Respiraotry fialure, mechanical ventilation #PE #Hepatitis C #Hyperglycemia, uncontroleld #Diabetes Mellitus #Substance Use Disorder - The patient's plan was discussed with attending Dr. Benito Sy MD PGY2 Internal Medicine Attending Provider Attestation/Addendum I personally have seen and examined the patient at the bedside and agreed with the residents findings, assessment and plan of care. Impression Acute embolic CVA Ischemic encephalopathy with mental status improving: Plan/recommendations: follow-up with repeat CT head to decide about anticoagulation therapy to be safe as she is having embolic phenomena in multiple areas PFO alone cannot explain the process Will discuss with tertiary center colleagues to decide about optimal management as transfer is not possible.
--- NOTE | 2025-03-31 16:07 | PC.SS ---
Update: Patient has been extubated. On oxymask. Speech evaluation is pending. Patient receiving dialyis today. Neprology consulting, Dr. Zelaya. Patient is NPO. Patient receiving IV antibiotics. Patient not receiving pressor support.
[2025-03-31] MEDS: ALBUMIN HUMAN 25% IVPB 25 GM/100 ML BTL IV (17:00)
--- NOTE | 2025-03-31 17:03 | PC.NURSE ---
BP LOW, WILL ADMIN PRN ALBUMIN AND CONT. TO MONITOR
--- NOTE | 2025-03-31 17:05 | XR_ITS ---
Examination: CT brain head without contrast. 2-D sagittal coronal reconstructions Date and time of exam:April 01, 2025 0837 hours, comparison March 30, 2025 INDICATIONS: Generalized headaches today, focal areas of edema in the left parietal lobe on CT brain study March 30, 2025 CTDI: vol (mGy):57.5 DLP: (mGycm):1202 Technique: Multiple CT axial sections of the brain have been obtained, 5 mm slice thickness. Contrast has not been administered. 2-D sagittal, coronal reconstructions have been obtained Low dose protocols were performed. One or more of the following dose reduction techniques were used; automated exposure control, adjustment of the mA and/or KV according to patient size, use of iterative reconstruction technique. Findings: Interval hemorrhage density likely subarachnoid in the right frontal convexity axial image 12 and left frontal parietal convexity axial image 12 Interval hemorrhage density in the right frontal sulci axial image 21 No midline shift Ventricles are not enlarged IMPRESSION: Interval multiple areas of subarachnoid hemorrhage as above, suggest continued follow-up
[2025-03-31 17:43] LABS: Base Excess -3 (-3-3); HCO3 21 mEq/L (20-26); Inspired O2, VO2 Liters 4 L/min; O2 Saturation 96 % (91-98); PCO2 36 mmHg (32.0-48.0); PO2 80 mmHg (83-108); pH, Arterial 7.39 (7.35-7.45)
[2025-03-31 17:44] LABS: Puncture Site Arterial Line
[2025-03-31 17:45] LABS: Allen Test Not Performed
[2025-03-31] MEDS: HEPARIN SOD INJ 1000 UNIT/ML VIAL 10 ML 2600 UNIT INDWELLCAT (18:01)
--- NOTE | 2025-03-31 18:01 | PD.RESPRO ---
Documentation for date of: 03/31/25 Subjective Subjective Interval history: 03/30/2025: Patient is seen and examined at bedside in the ICU. Noted no acute overnight events. Patient is still anuric. Vitals are stable and patient is coming down on vasopressor needs and stopped in the morning. Still on sedation, propofol, fentanyl and Precedex. Noted to have episodes of bradycardia when patient is moved around. Labs done this morning showed WBC 11.4, hemoglobin 10.8, platelets 137. BUN 25, creatinine 2.4, glucose 203, AST and ALT are continuously downtrending. Patient appears to be responding when weaned off sedation but is not able to follow the commands. Received HD today. SYLVIE is done by Dr. Fernandez and noted to have atrial septal aneurysm, PFO which is likely cause of multiple embolic stroke. Repeat head CT done this morning showed new infarcts and hemorrhagic transformation. Patient could not be anticoagulated in view of hemorrhagic transformation. Patient was pending IVC filter placement today but could not be done as Dr. Orona is not available. Trying to transfer the patient out as patient needs PFO closure for further prevention of strokes. 03/31/2025: No acute overnight events. Overnight, Dr. Olivarez talked to [facility] for transfer in view of PFO closure, but cardiothoracic surgeon from [facility] reported that patient is unlikely to have embolic strokes from a small PFO and recommended further workup to look for other causes of embolic strokes. Patient is still anuric. Vitals are stable and patient is off the vasopressors. All the sedation was turned off and patient was started on SBT which she passed when and later got extubated to oxygen. Labs done today showed leukocytosis 16.9, BUN 32, creatinine 3.1, AST 76, ALT 70, CK 1187. Ordered CT angio chest to look for any abnormalities in the aorta that could be causing the embolus and it did not reveal anything significant but abdomen/pelvis imaging showed splenic infarct, noted thrombus in the left upper splenic arteries. Neurologist, Dr. Oliver recommended to repeat head CT to look for any further hemorrhage before starting anticoagulation. Head CT will be done tomorrow as patient got contrast today and the radiologist recommended that contrast could be still present in the body resulting in the false results. Consulted heme-onc specialist, Dr. Krishna. Hypercoagulable workup was sent. Received HD after CT angio was done Exam Vital Signs Temp Pulse Resp BP Pulse Ox O2 Del Method O2 Flow Rate 97.2 F 65 24 H 109/48 L 97 Oxy Mask 4 03/31/25 17:53 03/31/25 18:01 03/31/25 17:53 03/31/25 18:01 03/31/25 17:53 03/31/25 13:12 03/31/25 17:53 FiO2 40 03/31/25 09:17 Narrative Exam General: sedated and mechanically ventilated HEENT: Normocephalic, atraumatic, mucous membranes moist. Heart: Regular rate and rhythm, no murmurs. Lungs: Clear to auscultation with no wheezing or crackles. Abdomen: Soft, nondistended, nontender, positive bowel sounds. ?No guarding or rebound tenderness. Neurologic: sedated and mechanically ventilated Extremities: Bilateral pitting 4+ pedal edema extending up to the knees. Noted scar on the left knee likely from TKR. Chronic ulcer 5 x 6 cm is noted on right lateral lower extremity approximately 10 cm below the knee. Skin: Noted tissue pressure injuries on right thigh and left thigh. Objective Labs 03/31/25 08:22 03/31/25 08:22 Labs: Laboratory Results - last 24 hr 03/30/25 03/31/25 03/31/25 18:25 04:40 04:43 WBC RBC Hgb Hct MCV MCH MCHC RDW Std Deviation Plt Count Neut % (Auto) Lymph % (Auto) [place] % (Auto) Eos % (Auto) Baso % (Auto) Neut # (Auto) Lymph # (Auto) [place] # (Auto) Eos # (Auto) Baso # (Auto) Immature Gran # (Auto) Absolute Nucleated RBC Immature Gran % Nucleated RBC % PT INR APTT Puncture Site Arterial Line ABG pH 7.39 ABG pCO2 41 ABG pO2 63 L ABG HCO3 25 ABG O2 Saturation 92 ABG Base Excess 0 Oxygen Liter Flow FiO2 50 Sodium Potassium Chloride Carbon Dioxide Anion Gap BUN Creatinine Estim Creat Clear Calc eGFR BUN/Creatinine Ratio Glucose Calculated Osmolality Calcium Corrected Calcium Total Bilirubin AST ALT Alkaline Phosphatase Total Creatine Kinase 1187 H D Total Protein Albumin Globulin Albumin/Globulin Ratio Random Vancomycin 16.4 03/31/25 03/31/25 08:22 17:30 WBC 16.9 H D RBC 3.54 L Hgb 10.4 L Hct 33.2 L MCV 94 MCH 29.4 MCHC 31.3 RDW Std Deviation 52.0 H Plt Count 157 Neut % (Auto) 62 Lymph % (Auto) 13 [place] % (Auto) 7 Eos % (Auto) 1 Baso % (Auto) 0 Neut # (Auto) 10.6 H Lymph # (Auto) 2.3 [place] # (Auto) 1.2 H Eos # (Auto) 0.2 Baso # (Auto) 0.0 Immature Gran # (Auto) 2.66 H Absolute Nucleated RBC 0.08 H Immature Gran % 16 H Nucleated RBC % 1 H PT 11.7 INR 1.1 APTT 28.0 Puncture Site Arterial Line ABG pH 7.39 ABG pCO2 36 ABG pO2 80 L ABG HCO3 21 ABG O2 Saturation 96 ABG Base Excess -3 Oxygen Liter Flow 4 FiO2 Sodium 139 Potassium 3.8 Chloride 100 Carbon Dioxide 24.7 Anion Gap 14 BUN 32 H Creatinine 3.1 H D Estim Creat Clear Calc 20.9 L eGFR 17 L BUN/Creatinine Ratio 10 L Glucose 175 H Calculated Osmolality 288 Calcium 8.9 Corrected Calcium 9.5 Total Bilirubin 0.4 AST 76 H ALT 70 H Alkaline Phosphatase 112 Total Creatine Kinase Total Protein 5.5 L Albumin 3.2 L Globulin 2.3 Albumin/Globulin Ratio 1.4 Random Vancomycin ABG Interpretation ABG results: 03/26/25 03/26/25 03/26/25 11:18 11:44 16:23 ABG pH 7.27 L Cancelled ABG pCO2 40 Cancelled ABG pO2 146 H Cancelled ABG HCO3 18 L Cancelled ABG O2 Saturation 100 H Cancelled ABG Base Excess -8 L Cancelled VBG pH 7.19 L VBG pCO2 48 VBG pO2 37 VBG Base Excess -10 L 03/26/25 03/27/25 03/27/25 18:43 00:17 03:42 ABG pH 7.16 L* D 7.24 L Cancelled ABG pCO2 58 H D 44 D Cancelled ABG pO2 68 L D 80 L Cancelled ABG HCO3 21 19 L Cancelled ABG O2 Saturation 90 L 96 Cancelled ABG Base Excess -9 L -8 L Cancelled VBG pH VBG pCO2 VBG pO2 VBG Base Excess 03/27/25 03/27/25 03/27/25 04:04 07:55 18:48 ABG pH 7.26 L 7.30 L ABG pCO2 43 37 ABG pO2 83 174 H D ABG HCO3 19 L 18 L ABG O2 Saturation 97 101 H ABG Base Excess -7 L -8 L VBG pH 7.21 L 7.31 L VBG pCO2 49 48 VBG pO2 54 52 VBG Base Excess -8 L -2 03/27/25 03/28/25 03/28/25 19:07 04:06 13:37 ABG pH 7.36 7.38 7.41 ABG pCO2 41 45 44 ABG pO2 79 L D 73 L 105 D ABG HCO3 23 27 H 27 H ABG O2 Saturation 97 96 99 H ABG Base Excess -2 1 2 VBG pH VBG pCO2 VBG pO2 VBG Base Excess 03/29/25 03/30/25 03/31/25 04:45 04:50 04:40 ABG pH 7.38 7.42 7.39 ABG pCO2 45 40 41 ABG pO2 72 L D 66 L 63 L ABG HCO3 27 H 26 25 ABG O2 Saturation 98 93 92 ABG Base Excess 1 2 0 VBG pH VBG pCO2 VBG pO2 VBG Base Excess 03/31/25 17:30 ABG pH 7.39 ABG pCO2 36 ABG pO2 80 L ABG HCO3 21 ABG O2 Saturation 96 ABG Base Excess -3 VBG pH VBG pCO2 VBG pO2 VBG Base Excess Quality Measures Quality Measures VTE prophylaxis Assessment & Plan Assessment Current Active Medications: Generic Name Dose Route Start Last Admin Trade Name Freq PRN Reason Stop Dose Admin Acetaminophen 650 mg 03/26/25 18:58 Acetaminophen 325 Mg Tablet PO 04/25/25 18:57 Q4HR PRN Pain Scale 1-3 fever >100.4 Albuterol/Ipratropium 3 ml 03/27/25 01:00 03/31/25 14:28 Albuterol/Ipratropium (Duoneb) Rt Jennifer 3 Ml Nebu INH 04/26/25 00:59 Not Given Q6HRRT CRIS Atorvastatin Calcium 80 mg 03/26/25 21:00 03/30/25 21:55 Atorvastatin Calcium 20 Mg Tablet PO 04/25/25 20:59 80 mg HS CRIS Administration Atropine Sulfate 1 mg 03/30/25 10:33 Atropine Sulf Inj 0.1 Mg/Ml Syr 10 Ml IV 04/29/25 10:32 X1 PRN Bradycardia < 35 for greater t Dextrose 25 ml 03/26/25 20:20 Dextrose 50%-Water Inj 50 Ml Syringe IV 04/25/25 20:19 Q15MIN PRN BG 50-70 responsive npo pt Dextrose 50 ml 03/26/25 20:20 Dextrose 50%-Water Inj 50 Ml Syringe IV 04/25/25 20:19 Q15MIN PRN BG <50 OR BG <70 & pt unresponsive Glucagon 1 mg 03/26/25 20:20 Glucagon Inj 1 Mg Vial IM Q15MIN PRN BG <70, and no IV access Haloperidol Lactate 5 mg 03/31/25 12:00 03/31/25 13:39 Haloperidol Lact Inj 5 Mg/Ml Vial IV 04/05/25 11:59 5 mg X1 PRN Administration AGITATION (SEVERE) Heparin Sodium (Porcine) 5,000 unit 03/27/25 14:00 03/31/25 14:47 Heparin Sod Inj 5000 Unit/Ml Vial SC 04/10/25 13:59 5,000 unit Q8HR CRIS Administration Heparin Sodium (Porcine) 2,600 unit 03/28/25 19:33 03/30/25 14:24 Heparin Sod Inj 1000 Unit/Ml Vial 10 Ml INDWELLCAT 04/11/25 19:32 2,600 unit X1 PRN Administration DIALYSIS Norepinephrine/Dextrose 8 mg in 250 mls @ 8.292 mls/hr 03/26/25 19:50 03/31/25 08:00 Levophed In D5w 8mg/250ml IV 04/25/25 19:49 0 mcg/kg/min .Q24H PRN 0 mls/hr PER PROTOCOL Titration Protocol 0.05 MCG/KG/MIN Dexmedetomidine/Sodium Chloride 400 mcg in 100 mls @ 4.423 mls/hr 03/26/25 23:53 03/31/25 17:00 Precedex Ivpb IV 04/25/25 14:17 1.4 mcg/kg/hr .[id number] PRN 30.958 mls/hr Per PROTOCOL Titration Protocol 0.2 MCG/KG/HR Fentanyl Citrate 2,500 mcg in 250 mls @ 2.5 mls/hr 03/26/25 23:53 03/31/25 07:12 Sublimaze Inj 2,500 Mcg/250 Ml Bag IV 03/31/25 23:52 0 mcg/hr .Q24H PRN 0 mls/hr PER PROTOCOL Titration Protocol 25 MCG/HR Propofol 1,000 mg in 100 mls @ 2.799 mls/hr 03/27/25 17:34 03/31/25 07:12 Diprivan Ivpb IV 04/26/25 17:33 0 mcg/kg/min .Q24H PRN 0 mls/hr PER PROTOCOL Titration Protocol 5 MCG/KG/MIN Epinephrine/Sodium Chloride 16 mg in 250 mls @ 4.416 mls/hr 03/28/25 16:28 Adrenalin/Ns 16 Mg Ivpb IV 04/27/25 16:27 .Q24H PRN Per Protocol Protocol 0.05 MCG/KG/MIN Albumin Human 25 gm in 100 mls @ 100 mls/min 03/29/25 10:36 03/31/25 17:00 Albuminar-25 Ivpb IV 100 mls/min PRN PRN Administration DIALYSIS Ceftriaxone Sodium 2 gm/ 50 mls @ 100 mls/hr 03/30/25 10:45 03/31/25 09:02 Sodium Chloride IV 04/06/25 10:44 100 mls/hr QDAY [facility] Administration Insulin Degludec 20 unit 03/30/25 21:00 03/30/25 21:55 Insulin Degludec 5 Unit/0.05 Ml (Per 5 Units) NC 04/29/25 20:59 Not Given HS [facility] Insulin Human Lispro 0 unit 03/27/25 06:33 03/31/25 17:22 Insulin Lispro (Admelog) 1 Unit/0.01 Ml Unit SC 04/25/25 20:29 Not Given Q6HR [facility] Protocol Mupirocin 0 gm 03/29/25 08:30 03/31/25 14:48 Mupirocin Oint 2% 15 Gm Tube TOP 04/05/25 08:29 1 applicatio TID CRIS Administration Pantoprazole Sodium 40 mg 03/26/25 19:15 03/31/25 09:03 Pantoprazole Inj 40 Mg Vial IVP 04/25/25 19:14 40 mg QDAY CRIS Administration Pharmacy Consult 1 each 03/26/25 19:15 03/31/25 09:53 Vancomycin Pharmacy To Dose 1 Each Each IV 04/25/25 19:14 Not Given QDAY CRIS Plan A 59-year-old female with a past medical history of diabetes, hypertension, asthma, and a chronic right leg wound was brought to the Emergency Department after being found unresponsive. Patient found to have embolic type stroke. 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 - Likely due to multiple strokes Plan - Will try to reorient patient - Will try to wean her off the Precedex drip - Will repeat head CT tomorrow to see if there is any further bleeding from the infarcts # CVA - bilateral embolic stroke - Patient came in with altered sensorium and head CT at the time showed multiple bilateral infarcts, likely embolic - Patient has extensive DVT in the left lower extremity also noted to have pulmonary embolism, patient might be having embolism through PFO and reaching the systemic circulation. Dx: - Echocardiogram - Normal size left bentricle with mild apical and global hypokinesis LVEF 40-45%. Evidence of Tricuspid valve vegetation suggestive of endocarditis The RV is normal in size. The right ventricular systolic function is mildly decreased. Aortic valve sclerosis thickened wih mild aortic regurgitation. Mitral valve thickening with mild mitral regurgitation. - SYLVIE was done on 03/30/2025 that confirmed no vegetations noted to have atrial aneurysm bulging into left atrium, bubble study done showed PFO -Venous Doppler of left lower extremity extensive chronic nonocclusive DVT involving the common femoral left superficial femoral, popliteal, peroneal, posterior tibial and greater saphenous veins. Tubular structures in the right popliteal fossa 6.0 cm in left popliteal fossa 4.6 cm which may represent popliteal cysts - TSH is 2.43, A1c - 13.6, B12 529 Rx: - Will continue atorvastatin and stopped Aspirin for now as patient had embolic stroke - Cannot start on heparin drip as patient noted to have hemorrhagic infarcts on repeat CT head done on 03/30/2025, Repeat Head CT on 03/31/2025. - IVC filter placement is done on 03/31/2025 to prevent further embolic strokes through PFO from DVT - No need of urgent PFO closure as per Dr. Nayak. CVS: # Shock, resolved DDx: Combined cardiogenic and septic shock - At the time of admission, patient was noted to have bilateral lower extremity edema and bilateral diffuse inspiratory crackles -possible heart failure in the setting of methamphetamine abuse, diabetes, hypertension - Also noted to have temperature of 101.8 ?F at the time of admission, likely due to some ongoing infection. Fits into 2/3 qsofa criteria. Noted to have GCS less than 15 and respiratory rate 35/min. - Suspecting sepsis worsening the underlying heart failure resulting in suspected possible combined septic and cardiogenic shock. - Patient Lasix 60 mg and 2 L bolus in the ED Dx: - Labs at the time of admission showed WBC 13.1, procalcitonin 43.23 - Urinalysis showed turbid urine with 2+ proteinuria, 3+ glucosuria, 112 WBC, 4+ bacteria suggestive of UTI - Blood cultures and urine cultures were sent, E.coli in the urine and pansensitive, Blood cultures is negative - Echocardiogram is ordered Rx: - Patient is started on Levophed and weaned off completely as of 03/30/2025 - Initially patient was started on vancomycin and Zosyn [03/27-03/30], discontinued Vanco and Zosyn, started on ceftriaxone 2 g IV once daily [03/30- - Will continue to monitor vitals # NSTEMI, likely type II - In the setting of demand ischemia - Troponin at the time of admission is 0.427, peaked at 20.920 and later down trended - EKG did not show any ST-T wave changes Plan - Will continue telemetry monitoring - Heavy Mobile Equipment Operator, Dr. Nayak is consulted and will follow the recommendations # HFrEF, EF 40 to 45% - Unsure whether patient is regular methamphetamine user, as family members is not aware of the use - Patient also have severe uncontrolled diabetes mellitus, which could also contribute to the ischemic heart disease and CHF Plan - Patient should be started on GDMT but in the setting of ongoing acute kidney injury and recovering shock, will hold GDMT for now - Once the patient is hemodynamically stable and off the ventilator, will recommend to do repeat echocardiogram and if still found to have HFrEF, needed to be started on GDMT - Removing fluid through CRRT/HD # DVT - Patient was noted to have left lower extremity nonocclusive chronic DVT extending up to the left common femoral vein - Could not place on anticoagulation due to suspected hemorrhages in the head - IVC filter was placed on 03/31/2025 to prevent further pulmonary embolism and paradoxical emboli. Pulmoary # Pulmonary embolism - Patient was noted to have mismatch between end-tidal CO2 and arterial CO2, also noted to have increased oxygen requirements on the ventilator for which CTA chest was ordered on 03/28/2025 - CTA chest - Positive for multiple right lower pulmonary artery filling defects. Positive for left upper lobe pulmonary artery filling defects. No emboli in the main pulmonary artery segments Pneumonia versus infarction in both lower lung zones - Echocardiogram did not show any RV strain, though patient noted to have elevated troponin with peak level at 20.920, later down trended - EKG did not show any signs suggestive of pulmonary embolism Rx: - Patient cannot be anticoagulated as of now as patient had hemorrhagic infarcts in the brain - IVC filter is by Dr. Murillo on 03/31/2025 - Patient is not a candidate of mechanical thrombectomy as of now and does not seem to be in right heart failure # Acute hypoxic respiratory failure, resolving # Respiratory acidosis, resolved DDx: Sepsis, acute encephalopathy, pulmonary edema, pulmonary embolism, combined - Per patient family, patient does not have any previous history of respiratory problems and is not using any inhalers. Not a smoker Dx: - ABG at the time of admission showed pH 7.16, pCO2 58, pO2 68, FiO2 100% - Repeat ABG done on 03/27/2024 showed pH 7.3, pCO2 37, bicarb 18. - Repeat ABGs done after 03/28/2025 is within normal limits - CTA chest Positive for multiple right lower pulmonary artery filling defects. Positive for left upper lobe pulmonary artery filling defects. No emboli in the main pulmonary artery segments Pneumonia versus infarction in both lower lung zones Rx: - Patient is intubated, sedated and placed on mechanical ventilator on 03/26 and extubated on 03/31 - Though patient had pulmonary embolism, patient oxygen needs is coming down and noted to have only mild pulmonary embolism. - Will continue oxygen as needed for now. # History of asthma - Unclear if patient is using inhalers or if she has recent exacerbations - Currently does not appear to be in any exacerbations GI # Transaminitis, resolving # Hyperbilirubinemia, resolved - At the time of admission patient was found to have bilirubin of 1.6, AST 146, ALT 61 ---> 03/30, AST 64, ALT 59 DDx: Fatty liver versus chronic liver disease versus viral hepatitis versus secondary to ongoing septic shock and possible suspected ischemia Dx: - Tested positive for hepatitis C antibody - Liver ultrasound showed 10 mm gallstone, CBD enlarged 0.6 cm, liver 18.5 cm fatty infiltration Rx: - Will continue to monitor liver functions - Underlying shock - resolved - Patient has to follow-up with etcher hand on discharge on outpatient basis for follow-up on hepatitis C, currently does not suspect any active viral hepatitis # Renal # KINJAL DDx: Prerenal versus ATN in the setting of shock versus possible cardiorenal syndrome versus CKD in the setting of diabetes mellitus and hypertension versus embolic versus rhabdomyolysis - Patient does not follow-up any primary care doctor and unsure of her baseline kidney functions Dx: - Patient noted to have decreased urine output and oliguric since the time of admission - Creatinine at the time of admission is 2.8 --> 03/30, 2.4 --> 03/31, 3.1 - Patient is still anuric Rx: - Will continue to monitor renal functions - Will continue to monitor urine output - Will renally dose medication and avoid nephrotoxic medications - Game Breeding Farm Manager, Dr. Zelaya is consulted and patient is started on CRRT through dialysis catheter placement in the right IJV on 03/27 - Received HD on 03/29, 03/30, 03/31 # High anion gap metabolic acidosis, resolved # Lactic acidosis, resolved - Likely in the setting of ongoing shock, likely due to sepsis - At the time of admission, anion gap is 19, lactate is 4.7 ---> 03/30, AG 12, Lactate 1.8 - Anion gap improved on day of admission and lactic acidosis is slowly improving after starting CRRT Rx: - Received CRRT on 03/27 and 03/28, HD on 03/29, 03/30, 03/31 - Will continue to monitor lab values # Rhabdomyolysis, resolved - Patient happened to be on the floor lying down for 4 to 5 hours - CT head at the time of presentation is 9752 and received 2 L of fluid in the ED, as patient is fluid overloaded cannot give more fluids - CK levels continue to trend down slowly to 1187 Endo # Uncontrolled type 2 diabetes mellitus - Patient is not following any primary care provider and not taking medications properly per patient's family - Blood glucose at the time of admission is 550 for which patient was given 10 units of lispro in the ED - The patient had high anion gap metabolic acidosis, tested negative for beta-hydroxybutyrate and DKA is ruled out Plan - HbA1c sent - 13.6 - Started on insulin lispro sliding scale and degludec 12 units subcutaneous at bedtime, increased to 18 units on 03/30 based on morning blood sugars - Will titrate degludec according to FBS Hematology # Leukocytosis, resolving - WBC at the time of admission is 13.1, likely due to active ongoing sepsis ---> 03/30, 11.4 Plan - Will continue to monitor CBC and will treat with antibiotics ID # Severe sepsis - Patient presented 2/3 qSOFA criteria including GCS less than 15 and respiratory rate 35 - Blood culture, urine culture were sent - Urinalysis is suggestive of UTI, likely the source of infection - E.Coli , pansensitive Plan - Stopped Zosyn and vancomycin on 03/30, will continue ceftriaxone 2g IV (03/30 - # UTI - Urinalysis at the time of admission is significant for urinary tract infection - Urine culture showed E. coli which is pansensitive Plan - Will continue ceftriaxone Musculoskeletal # Chronic right leg wound - Likely from uncontrolled diabetes mellitus and venous congestion - On physical examination, noted 5 x 6 cm wound with well-healing granulation tissue Plan - Will refer to wound care - Arterial Doppler was ordered which showed no PAD in bilateral lower extremities Health Maintenance: Diet: NPO GI prophylaxis: Protonix DVT prophylaxis: Heparin subcut 5000 units every 8 hours Antibiotics: Ceftriaxone CODE STATUS: Full Disposition: ICU Case discussed with my attending Dr. Miguel A Anna, PGY2
--- NOTE | 2025-03-31 20:43 | ESPR_ITS ---
<Statement entered by Michael Nayak MD - 04/02/25 22:48> I personally examined the patient evaluate the patient and educated with PGY [address] WANDY HALL and agree with the treatment plan recommendation patient did have multi infarction severe embolization from paradoxical emboli evidence of endocarditis hemorrhagic transformation hence anticoagulation was withheld. Patient's condition somewhat more stable but still critical condition evaluated patient with resident physician agree with treatment plan recommendation as documented Documentation for date of: 03/31/25 Subjective Subjective Interval history: No acute overnight events. She was successfully extubated, showing some improvement in neurological status. Transfer for PFO closure was discussed but deemed unnecessary as the small PFO was unlikely to explain embolic strokes. Patient remains stable, off vasopressors, successfully extubated to oxygen, and continues further workup for embolic stroke including hypercoagulable evaluation and repeat head CT. Exam Vital Signs Temp Pulse Resp BP Pulse Ox O2 Del Method O2 Flow Rate 97.2 F 70 17 100/55 L 94 L Oxy Mask 4 03/31/25 18:36 03/31/25 19:45 03/31/25 19:45 03/31/25 19:45 03/31/25 19:45 03/31/25 13:12 03/31/25 18:36 FiO2 40 03/31/25 09:17 Narrative Exam General: Off sedation, appears comfortable. HEENT: Normocephalic, atraumatic, mucous membranes moist. Heart: Regular rate and rhythm, no murmurs. Lungs: Clear to auscultation with no wheezing or crackles. Abdomen: Soft, nondistended, nontender, positive bowel sounds. ?No guarding or rebound tenderness. Neurologic: Sedated and mechanically ventilated.Bilateral pupils are equal and reacting to light. Extremities: Noted bilateral pitting edema edema extending up to the knees, noted surgical scar on the left knee likely from TKR. Noted chronic wound of 5 x 6 cm in the right lower extremity. Noted tissue pressure injuries on the upper lateral right and left thigh. Also noted infected area in the right toe. Peripheral pulses are feeble Skin: No rash or ecchymoses. Objective Labs 03/31/25 08:22 03/31/25 08:22 Labs: Laboratory Results - last 24 hr 03/31/25 03/31/25 03/31/25 04:40 04:43 08:22 WBC 16.9 H D RBC 3.54 L Hgb 10.4 L Hct 33.2 L MCV 94 MCH 29.4 MCHC 31.3 RDW Std Deviation 52.0 H Plt Count 157 Neut % (Auto) 62 Lymph % (Auto) 13 [place] % (Auto) 7 Eos % (Auto) 1 Baso % (Auto) 0 Neut # (Auto) 10.6 H Lymph # (Auto) 2.3 [place] # (Auto) 1.2 H Eos # (Auto) 0.2 Baso # (Auto) 0.0 Immature Gran # (Auto) 2.66 H Absolute Nucleated RBC 0.08 H Immature Gran % 16 H Nucleated RBC % 1 H PT 11.7 INR 1.1 APTT 28.0 Puncture Site Arterial Line ABG pH 7.39 ABG pCO2 41 ABG pO2 63 L ABG HCO3 25 ABG O2 Saturation 92 ABG Base Excess 0 Oxygen Liter Flow FiO2 50 Sodium 139 Potassium 3.8 Chloride 100 Carbon Dioxide 24.7 Anion Gap 14 BUN 32 H Creatinine 3.1 H D Estim Creat Clear Calc 20.9 L eGFR 17 L BUN/Creatinine Ratio 10 L Glucose 175 H Calculated Osmolality 288 Calcium 8.9 Corrected Calcium 9.5 Total Bilirubin 0.4 AST 76 H ALT 70 H Alkaline Phosphatase 112 Total Protein 5.5 L Albumin 3.2 L Globulin 2.3 Albumin/Globulin Ratio 1.4 Random Vancomycin 16.4 03/31/25 17:30 WBC RBC Hgb Hct MCV MCH MCHC RDW Std Deviation Plt Count Neut % (Auto) Lymph % (Auto) [place] % (Auto) Eos % (Auto) Baso % (Auto) Neut # (Auto) Lymph # (Auto) [place] # (Auto) Eos # (Auto) Baso # (Auto) Immature Gran # (Auto) Absolute Nucleated RBC Immature Gran % Nucleated RBC % PT INR APTT Puncture Site Arterial Line ABG pH 7.39 ABG pCO2 36 ABG pO2 80 L ABG HCO3 21 ABG O2 Saturation 96 ABG Base Excess -3 Oxygen Liter Flow 4 FiO2 Sodium Potassium Chloride Carbon Dioxide Anion Gap BUN Creatinine Estim Creat Clear Calc eGFR BUN/Creatinine Ratio Glucose Calculated Osmolality Calcium Corrected Calcium Total Bilirubin AST ALT Alkaline Phosphatase Total Protein Albumin Globulin Albumin/Globulin Ratio Random Vancomycin ABG Interpretation ABG results: 03/26/25 03/26/25 03/26/25 11:18 11:44 16:23 ABG pH 7.27 L Cancelled ABG pCO2 40 Cancelled ABG pO2 146 H Cancelled ABG HCO3 18 L Cancelled ABG O2 Saturation 100 H Cancelled ABG Base Excess -8 L Cancelled VBG pH 7.19 L VBG pCO2 48 VBG pO2 37 VBG Base Excess -10 L 03/26/25 03/27/25 03/27/25 18:43 00:17 03:42 ABG pH 7.16 L* D 7.24 L Cancelled ABG pCO2 58 H D 44 D Cancelled ABG pO2 68 L D 80 L Cancelled ABG HCO3 21 19 L Cancelled ABG O2 Saturation 90 L 96 Cancelled ABG Base Excess -9 L -8 L Cancelled VBG pH VBG pCO2 VBG pO2 VBG Base Excess 03/27/25 03/27/25 03/27/25 04:04 07:55 18:48 ABG pH 7.26 L 7.30 L ABG pCO2 43 37 ABG pO2 83 174 H D ABG HCO3 19 L 18 L ABG O2 Saturation 97 101 H ABG Base Excess -7 L -8 L VBG pH 7.21 L 7.31 L VBG pCO2 49 48 VBG pO2 54 52 VBG Base Excess -8 L -2 03/27/25 03/28/25 03/28/25 19:07 04:06 13:37 ABG pH 7.36 7.38 7.41 ABG pCO2 41 45 44 ABG pO2 79 L D 73 L 105 D ABG HCO3 23 27 H 27 H ABG O2 Saturation 97 96 99 H ABG Base Excess -2 1 2 VBG pH VBG pCO2 VBG pO2 VBG Base Excess 03/29/25 03/30/25 03/31/25 04:45 04:50 04:40 ABG pH 7.38 7.42 7.39 ABG pCO2 45 40 41 ABG pO2 72 L D 66 L 63 L ABG HCO3 27 H 26 25 ABG O2 Saturation 98 93 92 ABG Base Excess 1 2 0 VBG pH VBG pCO2 VBG pO2 VBG Base Excess 03/31/25 17:30 ABG pH 7.39 ABG pCO2 36 ABG pO2 80 L ABG HCO3 21 ABG O2 Saturation 96 ABG Base Excess -3 VBG pH VBG pCO2 VBG pO2 VBG Base Excess Quality Measures Quality Measures VTE prophylaxis Assessment & Plan Assessment Current Active Medications: Generic Name Dose Route Start Last Admin Trade Name Juan Manuel PRN Reason Stop Dose Admin Acetaminophen 650 mg 03/26/25 18:58 Acetaminophen 325 Mg Tablet PO 04/25/25 18:57 Q4HR PRN Pain Scale 1-3 fever >100.4 Albuterol/Ipratropium 3 ml 03/27/25 01:00 03/31/25 18:06 Albuterol/Ipratropium (Duoneb) Rt Jennifer 3 Ml Nebu INH 04/26/25 00:59 3 ml Q6HRRT [facility] Administration Atorvastatin Calcium 80 mg 03/26/25 21:00 03/30/25 21:55 Atorvastatin Calcium 20 Mg Tablet PO 04/25/25 20:59 80 mg HS [facility] Administration Atropine Sulfate 1 mg 03/30/25 10:33 Atropine Sulf Inj 0.1 Mg/Ml Syr 10 Ml IV 04/29/25 10:32 X1 PRN Bradycardia < 35 for greater t Dextrose 25 ml 03/26/25 20:20 Dextrose 50%-Water Inj 50 Ml Syringe IV 04/25/25 20:19 Q15MIN PRN BG 50-70 responsive npo pt Dextrose 50 ml 03/26/25 20:20 Dextrose 50%-Water Inj 50 Ml Syringe IV 04/25/25 20:19 Q15MIN PRN BG <50 OR BG <70 & pt unresponsive Glucagon 1 mg 03/26/25 20:20 Glucagon Inj 1 Mg Vial IM Q15MIN PRN BG <70, and no IV access Haloperidol Lactate 5 mg 03/31/25 12:00 03/31/25 13:39 Haloperidol Lact Inj 5 Mg/Ml Vial IV 04/05/25 11:59 5 mg X1 PRN Administration AGITATION (SEVERE) Heparin Sodium (Porcine) 5,000 unit 03/27/25 14:00 03/31/25 14:47 Heparin Sod Inj 5000 Unit/Ml Vial SC 04/10/25 13:59 5,000 unit Q8HR [facility] Administration Heparin Sodium (Porcine) 2,600 unit 03/28/25 19:33 03/31/25 18:01 Heparin Sod Inj 1000 Unit/Ml Vial 10 Ml INDWELLCAT 04/11/25 19:32 2,600 unit X1 PRN Administration DIALYSIS Norepinephrine/Dextrose 8 mg in 250 mls @ 8.292 mls/hr 03/26/25 19:50 03/31/25 08:00 Levophed In D5w 8mg/250ml IV 04/25/25 19:49 0 mcg/kg/min .Q24H PRN 0 mls/hr PER PROTOCOL Titration Protocol 0.05 MCG/KG/MIN Dexmedetomidine/Sodium Chloride 400 mcg in 100 mls @ 4.423 mls/hr 03/26/25 23:53 03/31/25 19:31 Precedex Ivpb IV 04/25/25 14:17 1.2 mcg/kg/hr .[id number] PRN 26.535 mls/hr Per PROTOCOL Titration Protocol 0.2 MCG/KG/HR Fentanyl Citrate 2,500 mcg in 250 mls @ 2.5 mls/hr 03/26/25 23:53 03/31/25 07:12 Sublimaze Inj 2,500 Mcg/250 Ml Bag IV 03/31/25 23:52 0 mcg/hr .Q24H PRN 0 mls/hr PER PROTOCOL Titration Protocol 25 MCG/HR Propofol 1,000 mg in 100 mls @ 2.799 mls/hr 03/27/25 17:34 03/31/25 07:12 Diprivan Ivpb IV 04/26/25 17:33 0 mcg/kg/min .Q24H PRN 0 mls/hr PER PROTOCOL Titration Protocol 5 MCG/KG/MIN Epinephrine/Sodium Chloride 16 mg in 250 mls @ 4.416 mls/hr 03/28/25 16:28 Adrenalin/Ns 16 Mg Ivpb IV 04/27/25 16:27 .Q24H PRN Per Protocol Protocol 0.05 MCG/KG/MIN Albumin Human 25 gm in 100 mls @ 100 mls/min 03/29/25 10:36 03/31/25 17:00 Albuminar-25 Ivpb IV 100 mls/min PRN PRN Administration DIALYSIS Ceftriaxone Sodium 2 gm/ 50 mls @ 100 mls/hr 03/30/25 10:45 03/31/25 09:02 Sodium Chloride IV 04/06/25 10:44 100 mls/hr QDAY [facility] Administration Insulin Degludec 20 unit 03/30/25 21:00 03/30/25 21:55 Insulin Degludec 5 Unit/0.05 Ml (Per 5 Units) SC 04/29/25 20:59 Not Given HS [facility] Insulin Human Lispro 0 unit 03/27/25 06:33 03/31/25 17:22 Insulin Lispro (Admelog) 1 Unit/0.01 Ml Unit SC 04/25/25 20:29 Not Given Q6HR [facility] Protocol Mupirocin 0 gm 03/29/25 08:30 03/31/25 14:48 Mupirocin Oint 2% 15 Gm Tube TOP 04/05/25 08:29 1 applicatio TID [facility] Administration Pantoprazole Sodium 40 mg 03/26/25 19:15 03/31/25 09:03 Pantoprazole Inj 40 Mg Vial IVP 04/25/25 19:14 40 mg QDAY [facility] Administration Pharmacy Consult 1 each 03/26/25 19:15 03/31/25 09:53 Vancomycin Pharmacy To Dose 1 Each Each IV 04/25/25 19:14 Not Given QDAY [facility] Plan This is a 59-year-old female with PMHx of drug use disorder, presented to ED with acute encephalopathy requiring intubation with findings of multi embolic disease involving multiple systems including brain and left distal extremity, acute and failure with the cause likely renal emboli, with findings of vegetations on SYLVIE. Admitted to ICU for ventilator support, pressor support for likely septic shock, and CRRT. 1. Acute encephalopathy, multifactorial, related to metabolic derangement and embolic CVA. 2. Septic shock in settings of endocarditis with bacteremia 3. Heart failure with reduced ejection fraction EF 40-45%. 3. NSTEMI type type I (embolic HI) vs. Type 2 (demand ischemia 2/2 shock) 4. Acute renal failure likely 2/2 septic shock vs. renal emboli vs. rhabdomyolysis 5. Atrial septal aneurysm and PFO noted on SYLVIE 6. Pulmonary embolism 7. DVT IMPRESSION: Patient remains anuric but hemodynamically stable and off vasopressors. Sedation has been discontinued, she passed a spontaneous breathing trial, and was successfully extubated to oxygen. Transfer for PFO closure was discussed with [facility] but deemed unnecessary, as the small PFO is unlikely to account for embolic strokes. Further evaluation is ongoing. CT angiography of the chest revealed no aortic abnormalities, but abdomen/pelvis imaging showed a splenic infarct with thrombus in the left upper splenic artery. Neurology recommends a repeat head CT prior to initiating anticoagulation to exclude further hemorrhage; this is planned for tomorrow due to recent contrast administration. A hypercoagulable workup has been sent. Patient has a left lower extremity non-occlusive chronic DVT extending to the left common femoral vein. Anticoagulation is currently withheld due to suspected intracranial hemorrhages. An IVC filter was placed on 03/31/2025 to prevent further pulmonary or paradoxical emboli. Patient demonstrated a mismatch between end-tidal and arterial CO? and increased oxygen requirements, prompting CTA chest on 03/28/2025. Imaging showed multiple right lower and left upper pulmonary artery filling defects, with no emboli in the main pulmonary arteries. Pneumonia versus infarction was noted in both lower lung zones. Echocardiogram showed no right ventricular strain, though troponin peaked at 20.920 before downtrending. EKG did not suggest PE. Anticoagulation is currently deferred due to hemorrhagic brain infarcts. Patient is not a candidate for mechanical thrombectomy and shows no evidence of right heart failure. The IVC filter was placed. RECOMMENDATIONS: Prognosis overall remains guarded. Anticoagulation remains contraindicated due to evidence of hemorrhagic conversion on repeat head CT, making management complex. The patient is being transferred to a higher level of care [facility] for further evaluation and management, including potential PFO closure once clinically stable. In the interim, continue high-dose statin therapy. Maintain close hemodynamic monitoring with avoidance of blood pressure extremes to minimize further neurologic injury. The patient is not a candidate for surgical or percutaneous intervention at this time due to ongoing sepsis, reduced ventricular function, and overall poor prognosis. CRRT should be maintained for renal support, and multidisciplinary coordination remains essential during this transition of care. Maintain potassium >4.0 and magnesium >2.0. Continue with presser support as needed to maintain a MAP > 65. Case was discussed with attending physician, Dr. Nayak. Wandy Hall, PGY II This document was transcribed using voice recognition technology. Minor inaccuracies may be present.
[2025-04-01] VITALS (77 sets, daily range): BP systolic 78–213; BP diastolic 42–113; PULSE 53–85; RESP 14–27; TEMP 36.6–37.2; O2SAT 85–98; BMI 36.1
[2025-04-01] MEDS: ALBUTEROL/IPRATROPIUM (Duoneb) RT SOL 3 ML NEBU INH ×4 (00:04→19:22)
[2025-04-01] MEDS: DEXMEDETOMIDINE 400 MCG IVPB 400 MCG/100 ML BAG 17.69 MCG IV (00:07)
[2025-04-01] MEDS: MUPIROCIN OINT 2% 15 GM TUBE TOP ×3 (05:48→21:51)
[2025-04-01] MEDS: HEPARIN SOD INJ 5000 UNIT/ML VIAL SC ×3 (05:49→21:41)
[2025-04-01 06:09] LABS: Basophils # (Auto) 0.0 Thou/mm3 (0.0-0.2); Basophils % (Auto) 0 % (0-2.5); Eosinophils # (Auto) 0.1 Thou/mm3 (0.0-0.5); Eosinophils % (Auto) 1 % (0-10); Hematocrit 31.9 % (36.0-46.0); Hemoglobin 10.0 g/dL (12.0-16.0); Immature Granulocytes Auto 3.55 Thou/mm3 (0.00-0.00); Lymphocytes # (Auto) 1.7 Thou/mm3 (1.0-4.8); Lymphocytes % (Auto) 10 % (10-50); Mean Corpuscular HGB Conc 31.3 g/dl (31.0-37.0); Mean Corpuscular Hemoglobin 29.2 pg (25.0-35.0); Mean Corpuscular Volume 93 fL (80-100); Monocytes # (Auto) 1.2 Thou/mm3 (0.0-0.8); Monocytes % (Auto) 7 % (0-12); Neutrophils # (Auto) 10.6 Thou/mm3 (1.8-7.7); Neutrophils % (Auto) 62 % (37-80); Nucleated Red Blood Cell # 0.05 Thou/mm3 (0.00-0.00); Nucleated Red Blood Cell % 0 /100 WBC (0); Platelet Count 204 Thou/mm3 (140-440); RDW Standard Deviation 52.9 fL (36.4-46.3); Red Blood Count 3.43 Miln/mm3 (4.00-5.20); White Blood Count 17.2 Thou/mm3 (3.6-11.0)
[2025-04-01 06:46] LABS: Alanine Aminotransferase 74 U/L (10-49); Albumin, Serum 3.4 gm/dL (3.5-5.0); Albumin/Globulin Ratio 1.4 (1.2-2.2); Alkaline Phosphatase 113 U/L (46-116); Anion Gap 22 (7-16); Aspartate Amino Transferase 76 U/L (0-34); BUN/Creatinine Ratio 9 Ratio (12-20); Bilirubin,Total 0.3 mg/dL (0.3-1.2); Blood Urea Nitrogen 34 mg/dL (9-23); Calcium 9.1 mg/dL (8.3-10.6); Calcium (Corrected) 9.6 mg/dL (8.5-10.1); Carbon Dioxide 19.2 mMol/L (20.0-31.0); Chloride 100 mMol/L (98-107); Creatinine (Component) 3.6 mg/dL (0.6-1.3); Estimated Creatinine Clearance 17.7 mL/min (>60); Globulin 2.4 gm/dL (2.3-3.5); Glucose 176 mg/dL (74-106); Osmolality,Calculated 292 (275-295); Potassium 3.8 mMol/L (3.4-5.1); Sodium 141 mMol/L (136-145); Total Protein 5.8 gm/dL (5.7-8.2); Vancomycin,Random 19.8 mcg/mL; eGFR 14 See Note
--- NOTE | 2025-04-01 07:38 | PD.RESPRO ---
Documentation for date of: 04/01/25 Exam Vital Signs Temp Pulse Resp BP Pulse Ox O2 Del Method O2 Flow Rate 98.9 F 83 14 152/50 H 95 Oxy Mask 4 03/31/25 20:00 04/01/25 06:07 04/01/25 06:07 04/01/25 06:01 04/01/25 06:07 03/31/25 13:12 04/01/25 06:07 FiO2 40 03/31/25 09:17 Objective Labs 04/01/25 04:44 04/01/25 04:44 Labs: Laboratory Results - last 24 hr 03/31/25 03/31/25 04/01/25 08:22 17:30 04:44 WBC 16.9 H D 17.2 H RBC 3.54 L 3.43 L Hgb 10.4 L 10.0 L Hct 33.2 L 31.9 L MCV 94 93 MCH 29.4 29.2 MCHC 31.3 31.3 RDW Std Deviation 52.0 H 52.9 H Plt Count 157 204 D Neut % (Auto) 62 62 Lymph % (Auto) 13 10 [place] % (Auto) 7 7 Eos % (Auto) 1 1 Baso % (Auto) 0 0 Neut # (Auto) 10.6 H 10.6 H Lymph # (Auto) 2.3 1.7 [place] # (Auto) 1.2 H 1.2 H Eos # (Auto) 0.2 0.1 Baso # (Auto) 0.0 0.0 Immature Gran # (Auto) 2.66 H 3.55 H Absolute Nucleated RBC 0.08 H 0.05 H Immature Gran % 16 H 21 H Nucleated RBC % 1 H 0 PT 11.7 INR 1.1 APTT 28.0 Puncture Site Arterial Line ABG pH 7.39 ABG pCO2 36 ABG pO2 80 L ABG HCO3 21 ABG O2 Saturation 96 ABG Base Excess -3 Oxygen Liter Flow 4 Sodium 139 141 Potassium 3.8 3.8 Chloride 100 100 Carbon Dioxide 24.7 19.2 L Anion Gap 14 22 H BUN 32 H 34 H Creatinine 3.1 H D 3.6 H D Estim Creat Clear Calc 20.9 L 17.7 L eGFR 17 L 14 L* BUN/Creatinine Ratio 10 L 9 L Glucose 175 H 176 H Calculated Osmolality 288 292 Calcium 8.9 9.1 Corrected Calcium 9.5 9.6 Total Bilirubin 0.4 0.3 AST 76 H 76 H ALT 70 H 74 H Alkaline Phosphatase 112 113 Total Protein 5.5 L 5.8 Albumin 3.2 L 3.4 L Globulin 2.3 2.4 Albumin/Globulin Ratio 1.4 1.4 Random Vancomycin 19.8 ABG Interpretation ABG results: 03/26/25 03/26/25 03/26/25 11:18 11:44 16:23 ABG pH 7.27 L Cancelled ABG pCO2 40 Cancelled ABG pO2 146 H Cancelled ABG HCO3 18 L Cancelled ABG O2 Saturation 100 H Cancelled ABG Base Excess -8 L Cancelled VBG pH 7.19 L VBG pCO2 48 VBG pO2 37 VBG Base Excess -10 L 03/26/25 03/27/25 03/27/25 18:43 00:17 03:42 ABG pH 7.16 L* D 7.24 L Cancelled ABG pCO2 58 H D 44 D Cancelled ABG pO2 68 L D 80 L Cancelled ABG HCO3 21 19 L Cancelled ABG O2 Saturation 90 L 96 Cancelled ABG Base Excess -9 L -8 L Cancelled VBG pH VBG pCO2 VBG pO2 VBG Base Excess 03/27/25 03/27/25 03/27/25 04:04 07:55 18:48 ABG pH 7.26 L 7.30 L ABG pCO2 43 37 ABG pO2 83 174 H D ABG HCO3 19 L 18 L ABG O2 Saturation 97 101 H ABG Base Excess -7 L -8 L VBG pH 7.21 L 7.31 L VBG pCO2 49 48 VBG pO2 54 52 VBG Base Excess -8 L -2 03/27/25 03/28/25 03/28/25 19:07 04:06 13:37 ABG pH 7.36 7.38 7.41 ABG pCO2 41 45 44 ABG pO2 79 L D 73 L 105 D ABG HCO3 23 27 H 27 H ABG O2 Saturation 97 96 99 H ABG Base Excess -2 1 2 VBG pH VBG pCO2 VBG pO2 VBG Base Excess 03/29/25 03/30/25 03/31/25 04:45 04:50 04:40 ABG pH 7.38 7.42 7.39 ABG pCO2 45 40 41 ABG pO2 72 L D 66 L 63 L ABG HCO3 27 H 26 25 ABG O2 Saturation 98 93 92 ABG Base Excess 1 2 0 VBG pH VBG pCO2 VBG pO2 VBG Base Excess 03/31/25 17:30 ABG pH 7.39 ABG pCO2 36 ABG pO2 80 L ABG HCO3 21 ABG O2 Saturation 96 ABG Base Excess -3 VBG pH VBG pCO2 VBG pO2 VBG Base Excess Quality Measures Quality Measures VTE prophylaxis Assessment & Plan Assessment Current Active Medications: Generic Name Dose Route Start Last Admin Trade Name Freq PRN Reason Stop Dose Admin Acetaminophen 650 mg 03/26/25 18:58 Acetaminophen 325 Mg Tablet PO 04/25/25 18:57 Q4HR PRN Pain Scale 1-3 fever >100.4 Albuterol/Ipratropium 3 ml 03/27/25 01:00 04/01/25 06:06 Albuterol/Ipratropium (Duoneb) Rt Jennifer 3 Ml Nebu INH 04/26/25 00:59 3 ml Q6HRRT [facility] Administration Atorvastatin Calcium 80 mg 03/26/25 21:00 03/31/25 21:22 Atorvastatin Calcium 20 Mg Tablet PO 04/25/25 20:59 Not Given HS [facility] Atropine Sulfate 1 mg 03/30/25 10:33 Atropine Sulf Inj 0.1 Mg/Ml Syr 10 Ml IV 04/29/25 10:32 X1 PRN Bradycardia < 35 for greater t Dextrose 25 ml 03/26/25 20:20 Dextrose 50%-Water Inj 50 Ml Syringe IV 04/25/25 20:19 Q15MIN PRN BG 50-70 responsive npo pt Dextrose 50 ml 03/26/25 20:20 Dextrose 50%-Water Inj 50 Ml Syringe IV 04/25/25 20:19 Q15MIN PRN BG <50 OR BG <70 & pt unresponsive Glucagon 1 mg 03/26/25 20:20 Glucagon Inj 1 Mg Vial IM Q15MIN PRN BG <70, and no IV access Haloperidol Lactate 5 mg 03/31/25 12:00 03/31/25 13:39 Haloperidol Lact Inj 5 Mg/Ml Vial IV 04/05/25 11:59 5 mg X1 PRN Administration AGITATION (SEVERE) Heparin Sodium (Porcine) 5,000 unit 03/27/25 14:00 04/01/25 05:49 Heparin Sod Inj 5000 Unit/Ml Vial SC 04/10/25 13:59 5,000 unit Q8HR [facility] Administration Heparin Sodium (Porcine) 2,600 unit 03/28/25 19:33 03/31/25 18:01 Heparin Sod Inj 1000 Unit/Ml Vial 10 Ml INDWELLCAT 04/11/25 19:32 2,600 unit X1 PRN Administration DIALYSIS Norepinephrine/Dextrose 8 mg in 250 mls @ 8.292 mls/hr 03/26/25 19:50 03/31/25 08:00 Levophed In D5w 8mg/250ml IV 04/25/25 19:49 0 mcg/kg/min .Q24H PRN 0 mls/hr PER PROTOCOL Titration Protocol 0.05 MCG/KG/MIN Dexmedetomidine/Sodium Chloride 400 mcg in 100 mls @ 4.423 mls/hr 03/26/25 23:53 04/01/25 07:00 Precedex Ivpb IV 04/25/25 14:17 Infused .[id number] PRN Titration Per PROTOCOL Protocol 0.2 MCG/KG/HR Propofol 1,000 mg in 100 mls @ 2.799 mls/hr 03/27/25 17:34 03/31/25 07:12 Diprivan Ivpb IV 04/26/25 17:33 0 mcg/kg/min .Q24H PRN 0 mls/hr PER PROTOCOL Titration Protocol 5 MCG/KG/MIN Epinephrine/Sodium Chloride 16 mg in 250 mls @ 4.416 mls/hr 03/28/25 16:28 Adrenalin/Ns 16 Mg Ivpb IV 04/27/25 16:27 .Q24H PRN Per Protocol Protocol 0.05 MCG/KG/MIN Albumin Human 25 gm in 100 mls @ 100 mls/min 03/29/25 10:36 03/31/25 18:45 Albuminar-25 Ivpb IV Infused PRN PRN Infusion DIALYSIS Ceftriaxone Sodium 2 gm/ 50 mls @ 100 mls/hr 03/30/25 10:45 03/31/25 09:02 Sodium Chloride IV 04/06/25 10:44 100 mls/hr QDAY [facility] Administration Insulin Degludec 20 unit 03/30/25 21:00 04/01/25 00:10 Insulin Degludec 5 Unit/0.05 Ml (Per 5 Units) SC 04/29/25 20:59 Not Given HS [facility] Insulin Human Lispro 0 unit 03/27/25 06:33 04/01/25 05:57 Insulin Lispro (Admelog) 1 Unit/0.01 Ml Unit SC 04/25/25 20:29 Not Given Q6HR [facility] Protocol Mupirocin 0 gm 03/29/25 08:30 04/01/25 05:48 Mupirocin Oint 2% 15 Gm Tube TOP 04/05/25 08:29 1 applicatio TID [facility] Administration Pantoprazole Sodium 40 mg 03/26/25 19:15 03/31/25 09:03 Pantoprazole Inj 40 Mg Vial IVP 04/25/25 19:14 40 mg QDAY [facility] Administration Pharmacy Consult 1 each 03/26/25 19:15 03/31/25 09:53 Vancomycin Pharmacy To Dose 1 Each Each IV 04/25/25 19:14 Not Given QDAY [facility]
[2025-04-01] MEDS: DEXMEDETOMIDINE 400 MCG IVPB 400 MCG/100 ML BAG 22.113 MCG IV ×4 (08:00→23:05)
--- NOTE | 2025-04-01 08:21 | PD.INTPROG ---
Documentation for date of: 04/01/25 Subjective Subjective Interval history: This is a 59-year-old female who presented to the ER on 26 March. She was brought to the ER for altered mentation. She was found unresponsive lying on the bathroom floor. Her last known well time was 1030 night prior. Upon arrival to the ER she was found to be altered slightly combative. However her mental status declined and she was ultimately intubated for airway protection with a GCS less than 8. She was also noted to have rhabdomyolysis and acute kidney injury. MRI revealed multiple embolic infarcts bilaterally throughout all hemispheres. She was initially hypotensive and given IV fluids for resuscitation however she remained hypotensive requiring vasopressor support. Cultures were obtained. Urine culture was positive for E. coli. 1 out of 2 blood culture on arrival was positive for GPC's current speciation still pending. She is on broad-spectrum antibiotic coverage. She has had no urinary output and has required CRRT. 03/28-her echocardiogram came back overnight which shows a decreased EF of 40 to 45% along with vegetations on tricuspid valve. She remains afebrile with a Tmax of 100.2 yesterday afternoon. She has had minimal urinary output. She does wake up and become restless and agitated when sedation is lightened. 03/29-no acute overnight events, patient underwent CT angio of the chest overnight which demonstrated multiple PEs both on the left and right. Continues to be in a virtually anuric state with minimal urinary output and approximately 5 cc an hour. She is afebrile. She is agitated when sedation is lightened however does not follow commands 03/31-no acute overnight events, this morning when sedation held the patient is able to follow commands. Remains with minimal urinary output though appears to have picked up a little bit this morning, afebrile , yesterday underwent transesophageal echocardiogram where a atrial septal aneurysm was noted as well as a small PFO. There were no vegetations reported on any of the valves 04/01- no acute overnight events, extubated on 03/31 and doing well, today is verbalizing that she wants to go home but a bit confused, afebrile, has started to have an increase in UOP with 670cc out over the last 24hrs transfer cancelled yesterday since there is no large PFO and no vegetations for endocarditis Critical Care Note Critical care time (min.): 48 Exam Vital Signs Temp Pulse Resp BP Pulse Ox O2 Del Method O2 Flow Rate 98.9 F 83 14 152/50 H 95 Oxy Mask 4 03/31/25 20:00 04/01/25 06:07 04/01/25 06:07 04/01/25 06:01 04/01/25 06:07 03/31/25 13:12 04/01/25 06:07 FiO2 40 03/31/25 09:17 Narrative Exam Gen- NAD, awake and talking, appears to be oriented, obese, restless HEENT- NC/AT, mucosa dry, sclera anicteric, EOMI Chest- LCTAB, HRRR, no increase in WOB Abd- obese, s/nt/bs+ Ext- localized area of ischemic on L great and 5toe, pulses palp, no clubbing, area of livedo reticularis on thighs Drips precedex Physical Exam Completion Physical Exam Complete?: Yes Objective - [employer] Labs 04/01/25 04:44 04/01/25 04:44 Labs: Laboratory Results - last 24 hr 03/31/25 03/31/25 04/01/25 08:22 17:30 04:44 WBC 16.9 H D 17.2 H RBC 3.54 L 3.43 L Hgb 10.4 L 10.0 L Hct 33.2 L 31.9 L MCV 94 93 MCH 29.4 29.2 MCHC 31.3 31.3 RDW Std Deviation 52.0 H 52.9 H Plt Count 157 204 D Neut % (Auto) 62 62 Lymph % (Auto) 13 10 [place] % (Auto) 7 7 Eos % (Auto) 1 1 Baso % (Auto) 0 0 Neut # (Auto) 10.6 H 10.6 H Lymph # (Auto) 2.3 1.7 [place] # (Auto) 1.2 H 1.2 H Eos # (Auto) 0.2 0.1 Baso # (Auto) 0.0 0.0 Immature Gran # (Auto) 2.66 H 3.55 H Absolute Nucleated RBC 0.08 H 0.05 H Immature Gran % 16 H 21 H Nucleated RBC % 1 H 0 PT 11.7 INR 1.1 APTT 28.0 Puncture Site Arterial Line ABG pH 7.39 ABG pCO2 36 ABG pO2 80 L ABG HCO3 21 ABG O2 Saturation 96 ABG Base Excess -3 Oxygen Liter Flow 4 Sodium 139 141 Potassium 3.8 3.8 Chloride 100 100 Carbon Dioxide 24.7 19.2 L Anion Gap 14 22 H BUN 32 H 34 H Creatinine 3.1 H D 3.6 H D Estim Creat Clear Calc 20.9 L 17.7 L eGFR 17 L 14 L* BUN/Creatinine Ratio 10 L 9 L Glucose 175 H 176 H Calculated Osmolality 288 292 Calcium 8.9 9.1 Corrected Calcium 9.5 9.6 Total Bilirubin 0.4 0.3 AST 76 H 76 H ALT 70 H 74 H Alkaline Phosphatase 112 113 Total Protein 5.5 L 5.8 Albumin 3.2 L 3.4 L Globulin 2.3 2.4 Albumin/Globulin Ratio 1.4 1.4 Random Vancomycin 19.8 Assessment & Plan Problem List (1) Ischemic cerebrovascular accident (CVA): Status: Acute (2) Uncontrolled diabetes mellitus: Status: Acute (3) Pneumonia: Status: Acute Additional Assessment Additional Assessment: In summary this is a 59-year-old female admitted to the ICU with septic shock, acute renal failure and acute respiratory failure a/p WHEAT WASHER Encephalopathy- multifactorial and related to both metabolic issues and mult acute embolic strokes - Gradual resolving - will need reorientation however shows daily improvement Embolic CVA- 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 -Neurology consulted -Repeat head CT read as new lesions question of hemorrhage -Given the results of the patient's transesophageal echocardiogram 03/30 which did not show any valvular lesions unclear the source of patient's emboli -Will perform CT angio of the aorta to evaluate for pathology -Patient's PEs can be explained by her lower extremity DVT however her multiple embolic CVAs and evidence of distal embolic events are unclear Drug use-utox pos for meth CV Endocarditis-this diagnosis does not appear to be present now - Her echocardiogram reported a tricuspid vegetation however this was not seen on transesophageal echocardiogram. There were no valvular lesions reported - She does not have any persistently positive blood cultures - no endocarditis Troponinemia-this was in the setting of shock followed by extreme hypertension -Patient had had a systolic blood pressure in the 60s on vasopressors and then systolic blood pressure increased to 300 which rapidly dropped once pressors were held -Patient's troponin of 20 at 3 PM 03/27 likely related to this event now trending down -On aspirin and statin - EKG obtained -Discussed with cardiology Shock-currently resolved Heart failure with reduced EF-patient's echocardiogram reported EF of 40 to 45% -Will need additional workup once she is overall improved -Will need and ACEI/ARB - started on coreg 3.125mg q12 today Ischemic left toe-this has been delineated and does not appear to be increasing -May be secondary to vasopressors versus embolic shower to the foot - arterial doppler did not show occlusion or severe PAD - Will eventually need surgical consultation for possible amputation of toe - no change Resp Acute respiratory failure- extubated - on 3lts NC Pulmonary embolism- 2/2 LE DVT - has mult embolic CVAs with some hemorrhagic component - place IVC filter due to bleeding risk Pneumonia-patient's cultures grew out strep pneumo and Klebsiella pneumo both are pansensitive -Continue for 7 days of abx - on ceftri Renal Acute renal failure-in the setting of sepsis, shock and rhabdomyolysis -Likely secondary to rhabdo with a component of sepsis -Given her embolic CVAs cannot rule out embolic event to the kidneys as well - showing recovery with UOP of 600+cc over the last 24hrs - give additional bumex today - d/w nephrology - renal biopsy AGMA- check LA, beta hydroxy - may be in setting of KINJAL with no HD in the last 48hrs Rhabdomyolysis-improved GI GI prophylaxis- extubated therefore will stop PPI Hepatitis C-this is a new diagnosis and will need follow-up as an outpatient Transaminitis-patient's LFTs were elevated upon arrival - This is in the setting of shock and therefore may be related to an ischemic hepatitis - Patient does also have positive hepatitis C therefore the elevated LFTs may also be due to active hep C - Currently improving Nutrition- NPO till swallow eval Endo Diabetes-poorly controlled, she has been started on long-acting along with a sliding scale - Adjust as needed Heme Leukocytosis-likely secondary to underlying infection -More or less stable Anemia- no active bleeding - stable DVT prophylaxis-heparin 5000 units every 8 thrombosis- pt has been found to have a R DVT which appeared chronic along with PE, arterial splenic thrombosus, embolic CVAs - a IVC filter was placed for DVT given the concern for hemorrhage on prior HCT - CTA chest/abd/pelvis done yesterday - given the new finding of arterial thrombosis as well the likelihood of an underlying hypercoagulable state is high - suspect antiphospholipid syndrome and possible CAPS given that there are more than 3 systems involved - Abs pending and will eval feasibility of obtaining renal biopsy or skin biopsy ID Sepsis-2/2 PNA - bcx grew staph hominis -> likely contaminant - sputum cx with strep and klebsiella UTI-her urine culture grew out E. coli which is pansensitive Right lower extremity ulcer- x-ray performed and shows question of cortical thickening and recommended MRI to eval for osteo Case discussed with ICU team and nephrology Labs, imaging and records reviewed Approximately 48 critical care minutes required for evaluation, exam, review, intervention, discussion formation plan of care for this critically ill patient with shock and respiratory failure at high risk for further ongoing decompensation Provider Notation Provider Notation: Although this document has been carefully reviewed, there may still be some phonetic and other typographical errors. These errors are purely grammatical due to imperfections in the software program and should not be construed in any way to compromise the substance of the patient's medical care during this visit. Thank you for the opportunity and privilege in assisting you with this patient's care and management.
--- NOTE | 2025-04-01 08:49 | ESPR_ITS ---
Documentation for date of: 04/01/25 Subjective Subjective Interval history: 03/30/2025: Patient is seen and examined at bedside in the ICU. Noted no acute overnight events. Patient is still anuric. Vitals are stable and patient is coming down on vasopressor needs and stopped in the morning. Still on sedation, propofol, fentanyl and Precedex. Noted to have episodes of bradycardia when patient is moved around. Labs done this morning showed WBC 11.4, hemoglobin 10.8, platelets 137. BUN 25, creatinine 2.4, glucose 203, AST and ALT are continuously downtrending. Patient appears to be responding when weaned off sedation but is not able to follow the commands. Received HD today. SYLVIE is done by Dr. Fernandez and noted to have atrial septal aneurysm, PFO which is likely cause of multiple embolic stroke. Repeat head CT done this morning showed new infarcts and hemorrhagic transformation. Patient could not be anticoagulated in view of hemorrhagic transformation. Patient was pending IVC filter placement today but could not be done as Dr. Orona is not available. Trying to transfer the patient out as patient needs PFO closure for further prevention of strokes. 03/31/2025: No acute overnight events. Overnight, Dr. Olivarez talked to [facility] for transfer in view of PFO closure, but cardiothoracic surgeon from [facility] reported that patient is unlikely to have embolic strokes from a small PFO and recommended further workup to look for other causes of embolic strokes. Patient is still anuric. Vitals are stable and patient is off the vasopressors. All the sedation was turned off and patient was started on SBT which she passed when and later got extubated to oxygen. Labs done today showed leukocytosis 16.9, BUN 32, creatinine 3.1, AST 76, ALT 70, CK 1187. Ordered CT angio chest to look for any abnormalities in the aorta that could be causing the embolus and it did not reveal anything significant but abdomen/pelvis imaging showed splenic infarct, noted thrombus in the left upper splenic arteries. Neurologist, Dr. Oliver recommended to repeat head CT to look for any further hemorrhage before starting anticoagulation. Head CT will be done tomorrow as patient got contrast today and the radiologist recommended that contrast could be still present in the body resulting in the false results. Consulted heme-onc specialist, Dr. Krishna. Hypercoagulable workup was sent. Received HD after CT angio was done 04/01/2025: Overnight, patient appears to be a little bit agitated for which patient was started on Precedex drip and noted to be singing all night. Otherwise patient is doing well and noted to have improvement in her speech and mental status overnight. Noted to have 670 mL of urine output in the last 24 hours. Vitals are stable and patient is off vasopressors and noted to be having elevated blood pressures this morning for which patient was started on carvedilol and amlodipine. Labs done today showed mildly elevated WBC likely reactive in the setting of contrast that patient received yesterday. CBC showed high anion gap metabolic acidosis likely due to mild uremia and lactate is 1.1. Hypercoagulable workup was sent as patient noted to have both arterial and venous thrombi, still pending results. Will continue aspirin for now. Repeat head CT was done to rule out any hemorrhage to start patient on coagulation, results are still pending. Will follow-up with Dr Oliver further decision on starting anticoagulation. Referral to speech therapy and physical therapy was done. Reservoir Engineering Manager, Dr. Zelaya is following the patient and recommended no HD for today as patient's urine output is improving. Will do CT-guided renal biopsy to rule out autoimmune diseases. Stopped transfer process for now. I signed anticipating downgrade in the next 24 hours. Exam Vital Signs Temp Pulse Resp BP Pulse Ox O2 Del Method O2 Flow Rate 98.9 F 83 14 152/50 H 95 Oxy Mask 4 03/31/25 20:00 04/01/25 06:07 04/01/25 06:07 04/01/25 06:01 04/01/25 06:07 03/31/25 13:12 04/01/25 06:07 FiO2 40 03/31/25 09:17 Narrative Exam General: Awake. Oriented HEENT: Normocephalic, atraumatic, mucous membranes moist. Heart: Regular rate and rhythm, no murmurs. Lungs: Clear to auscultation with no wheezing or crackles. on oxygen through oxymask, 2 litres Abdomen: Soft, nondistended, nontender, positive bowel sounds. ?No guarding or rebound tenderness. Neurologic: Alert and oriented x3, no gross neurological deficit, and patient able to move all 4 extremities. Extremities: Bilateral pitting 2+ pedal edema noted in lower extremities, noted necrosis and distal part of left great toe and fifth toe. Noted large chronic ulcer on the right lower extremity Skin: Noted livedo reticularis in the bilateral lower extremities. Objective Labs 04/01/25 04:44 04/01/25 04:44 Labs: Laboratory Results - last 24 hr 03/31/25 03/31/25 04/01/25 08:22 17:30 04:44 WBC 16.9 H D 17.2 H RBC 3.54 L 3.43 L Hgb 10.4 L 10.0 L Hct 33.2 L 31.9 L MCV 94 93 MCH 29.4 29.2 MCHC 31.3 31.3 RDW Std Deviation 52.0 H 52.9 H Plt Count 157 204 D Neut % (Auto) 62 62 Lymph % (Auto) 13 10 Walsh % (Auto) 7 7 Eos % (Auto) 1 1 Baso % (Auto) 0 0 Neut # (Auto) 10.6 H 10.6 H Lymph # (Auto) 2.3 1.7 Walsh # (Auto) 1.2 H 1.2 H Eos # (Auto) 0.2 0.1 Baso # (Auto) 0.0 0.0 Immature Gran # (Auto) 2.66 H 3.55 H Absolute Nucleated RBC 0.08 H 0.05 H Immature Gran % 16 H 21 H Nucleated RBC % 1 H 0 PT 11.7 INR 1.1 APTT 28.0 Puncture Site Arterial Line ABG pH 7.39 ABG pCO2 36 ABG pO2 80 L ABG HCO3 21 ABG O2 Saturation 96 ABG Base Excess -3 Oxygen Liter Flow 4 Sodium 139 141 Potassium 3.8 3.8 Chloride 100 100 Carbon Dioxide 24.7 19.2 L Anion Gap 14 22 H BUN 32 H 34 H Creatinine 3.1 H D 3.6 H D Estim Creat Clear Calc 20.9 L 17.7 L eGFR 17 L 14 L* BUN/Creatinine Ratio 10 L 9 L Glucose 175 H 176 H Calculated Osmolality 288 292 Calcium 8.9 9.1 Corrected Calcium 9.5 9.6 Total Bilirubin 0.4 0.3 AST 76 H 76 H ALT 70 H 74 H Alkaline Phosphatase 112 113 Total Protein 5.5 L 5.8 Albumin 3.2 L 3.4 L Globulin 2.3 2.4 Albumin/Globulin Ratio 1.4 1.4 Random Vancomycin 19.8 ABG Interpretation ABG results: 03/26/25 03/26/25 03/26/25 11:18 11:44 16:23 ABG pH 7.27 L Cancelled ABG pCO2 40 Cancelled ABG pO2 146 H Cancelled ABG HCO3 18 L Cancelled ABG O2 Saturation 100 H Cancelled ABG Base Excess -8 L Cancelled VBG pH 7.19 L VBG pCO2 48 VBG pO2 37 VBG Base Excess -10 L 03/26/25 03/27/25 03/27/25 18:43 00:17 03:42 ABG pH 7.16 L* D 7.24 L Cancelled ABG pCO2 58 H D 44 D Cancelled ABG pO2 68 L D 80 L Cancelled ABG HCO3 21 19 L Cancelled ABG O2 Saturation 90 L 96 Cancelled ABG Base Excess -9 L -8 L Cancelled VBG pH VBG pCO2 VBG pO2 VBG Base Excess 03/27/25 03/27/25 03/27/25 04:04 07:55 18:48 ABG pH 7.26 L 7.30 L ABG pCO2 43 37 ABG pO2 83 174 H D ABG HCO3 19 L 18 L ABG O2 Saturation 97 101 H ABG Base Excess -7 L -8 L VBG pH 7.21 L 7.31 L VBG pCO2 49 48 VBG pO2 54 52 VBG Base Excess -8 L -2 03/27/25 03/28/25 03/28/25 19:07 04:06 13:37 ABG pH 7.36 7.38 7.41 ABG pCO2 41 45 44 ABG pO2 79 L D 73 L 105 D ABG HCO3 23 27 H 27 H ABG O2 Saturation 97 96 99 H ABG Base Excess -2 1 2 VBG pH VBG pCO2 VBG pO2 VBG Base Excess 03/29/25 03/30/25 03/31/25 04:45 04:50 04:40 ABG pH 7.38 7.42 7.39 ABG pCO2 45 40 41 ABG pO2 72 L D 66 L 63 L ABG HCO3 27 H 26 25 ABG O2 Saturation 98 93 92 ABG Base Excess 1 2 0 VBG pH VBG pCO2 VBG pO2 VBG Base Excess 03/31/25 17:30 ABG pH 7.39 ABG pCO2 36 ABG pO2 80 L ABG HCO3 21 ABG O2 Saturation 96 ABG Base Excess -3 VBG pH VBG pCO2 VBG pO2 VBG Base Excess Quality Measures Quality Measures VTE prophylaxis Assessment & Plan Assessment Current Active Medications: Generic Name Dose Route Start Last Admin Trade Name Frejulissa PRN Reason Stop Dose Admin Acetaminophen 650 mg 03/26/25 18:58 Acetaminophen 325 Mg Tablet PO 04/25/25 18:57 Q4HR PRN Pain Scale 1-3 fever >100.4 Albuterol/Ipratropium 3 ml 03/27/25 01:00 04/01/25 06:06 Albuterol/Ipratropium (Duoneb) Rt Jennifer 3 Ml Nebu INH 04/26/25 00:59 3 ml Q6HRRT CRIS Administration Atorvastatin Calcium 80 mg 03/26/25 21:00 03/31/25 21:22 Atorvastatin Calcium 20 Mg Tablet PO 04/25/25 20:59 Not Given HS CRIS Atropine Sulfate 1 mg 03/30/25 10:33 Atropine Sulf Inj 0.1 Mg/Ml Syr 10 Ml IV 04/29/25 10:32 X1 PRN Bradycardia < 35 for greater t Dextrose 25 ml 03/26/25 20:20 Dextrose 50%-Water Inj 50 Ml Syringe IV 04/25/25 20:19 Q15MIN PRN BG 50-70 responsive npo pt Dextrose 50 ml 03/26/25 20:20 Dextrose 50%-Water Inj 50 Ml Syringe IV 04/25/25 20:19 Q15MIN PRN BG <50 OR BG <70 & pt unresponsive Glucagon 1 mg 03/26/25 20:20 Glucagon Inj 1 Mg Vial IM Q15MIN PRN BG <70, and no IV access Haloperidol Lactate 5 mg 03/31/25 12:00 03/31/25 13:39 Haloperidol Lact Inj 5 Mg/Ml Vial IV 04/05/25 11:59 5 mg X1 PRN Administration AGITATION (SEVERE) Haloperidol Lactate 5 mg 04/01/25 08:21 Haloperidol Lact Inj 5 Mg/Ml Vial IV X1 PRN AGITATION (SEVERE) Heparin Sodium (Porcine) 5,000 unit 03/27/25 14:00 04/01/25 05:49 Heparin Sod Inj 5000 Unit/Ml Vial SC 04/10/25 13:59 5,000 unit Q8HR CRIS Administration Heparin Sodium (Porcine) 2,600 unit 03/28/25 19:33 03/31/25 18:01 Heparin Sod Inj 1000 Unit/Ml Vial 10 Ml INDWELLCAT 04/11/25 19:32 2,600 unit X1 PRN Administration DIALYSIS Norepinephrine/Dextrose 8 mg in 250 mls @ 8.292 mls/hr 03/26/25 19:50 03/31/25 08:00 Levophed In D5w 8mg/250ml IV 04/25/25 19:49 0 mcg/kg/min .Q24H PRN 0 mls/hr PER PROTOCOL Titration Protocol 0.05 MCG/KG/MIN Dexmedetomidine/Sodium Chloride 400 mcg in 100 mls @ 4.423 mls/hr 03/26/25 23:53 04/01/25 08:00 Precedex Ivpb IV 04/25/25 14:17 1 mcg/kg/hr .[id number] PRN 22.113 mls/hr Per PROTOCOL Administration Protocol 0.2 MCG/KG/HR Propofol 1,000 mg in 100 mls @ 2.799 mls/hr 03/27/25 17:34 03/31/25 07:12 Diprivan Ivpb IV 04/26/25 17:33 0 mcg/kg/min .Q24H PRN 0 mls/hr PER PROTOCOL Titration Protocol 5 MCG/KG/MIN Albumin Human 25 gm in 100 mls @ 100 mls/min 03/29/25 10:36 03/31/25 18:45 Albuminar-25 Ivpb IV Infused PRN PRN Infusion DIALYSIS Ceftriaxone Sodium/Dextrose 1 gm in 50 mls @ 100 mls/hr 04/01/25 09:00 Rocephin/D5w 1gm Iv Premix IV 04/08/25 08:59 QDAY [facility] Insulin Degludec 20 unit 03/30/25 21:00 04/01/25 00:10 Insulin Degludec 5 Unit/0.05 Ml (Per 5 Units) SC 04/29/25 20:59 Not Given HS [facility] Insulin Human Lispro 0 unit 03/27/25 06:33 04/01/25 05:57 Insulin Lispro (Admelog) 1 Unit/0.01 Ml Unit SC 04/25/25 20:29 Not Given Q6HR [facility] Protocol Mupirocin 0 gm 03/29/25 08:30 04/01/25 05:48 Mupirocin Oint 2% 15 Gm Tube TOP 04/05/25 08:29 1 applicatio TID CRIS Administration Pantoprazole Sodium 40 mg 03/26/25 19:15 03/31/25 09:03 Pantoprazole Inj 40 Mg Vial IVP 04/25/25 19:14 40 mg QDAY CRIS Administration Plan A 59-year-old female with a past medical history of diabetes, hypertension, asthma, and a chronic right leg wound was brought to the Emergency Department after being found unresponsive. Patient found to have embolic type stroke. 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 - Likely due to multiple strokes Plan - Will try to reorient patient - Will try to wean her off the Precedex drip - Repeat Head CT, pending today # CVA - bilateral embolic stroke - Patient came in with altered sensorium and head CT at the time showed multiple bilateral infarcts, likely embolic - Patient has extensive DVT in the left lower extremity also noted to have pulmonary embolism, patient might be having embolism through PFO and reaching the systemic circulation. Dx: - Echocardiogram - Normal size left bentricle with mild apical and global hypokinesis LVEF 40-45%. Evidence of Tricuspid valve vegetation suggestive of endocarditis The RV is normal in size. The right ventricular systolic function is mildly decreased. Aortic valve sclerosis thickened wih mild aortic regurgitation. Mitral valve thickening with mild mitral regurgitation. - SYLVIE was done on 03/30/2025 that confirmed no vegetations noted to have atrial aneurysm bulging into left atrium, bubble study done showed PFO -Venous Doppler of left lower extremity extensive chronic nonocclusive DVT involving the common femoral left superficial femoral, popliteal, peroneal, posterior tibial and greater saphenous veins. Tubular structures in the right popliteal fossa 6.0 cm in left popliteal fossa 4.6 cm which may represent popliteal cysts - TSH is 2.43, A1c - 13.6, B12 529 Rx: - Will continue atorvastatin and Aspirin for now - Cannot start on heparin drip as patient noted to have hemorrhagic infarcts on repeat CT head done on 03/30/2025, Repeat Head CT on 04/01/2025. Pending read - IVC filter placement is done on 03/31/2025 to prevent further embolic strokes through PFO from DVT - No need of urgent PFO closure as per Dr. Nayak. - Referral speech therapy and physical therapy was done, pending recommendations - Hypercoaugulable workup ordered in view of suspected Antiphospholipid syndrome due to DVT and other infarcts CVS: # Shock, resolved DDx: Combined cardiogenic and septic shock - At the time of admission, patient was noted to have bilateral lower extremity edema and bilateral diffuse inspiratory crackles -possible heart failure in the setting of methamphetamine abuse, diabetes, hypertension - Also noted to have temperature of 101.8 ?F at the time of admission, likely due to some ongoing infection. Fits into 2/3 qsofa criteria. Noted to have GCS less than 15 and respiratory rate 35/min. - Suspecting sepsis worsening the underlying heart failure resulting in suspected possible combined septic and cardiogenic shock. - Patient Lasix 60 mg and 2 L bolus in the ED Dx: - Labs at the time of admission showed WBC 13.1, procalcitonin 43.23 - Urinalysis showed turbid urine with 2+ proteinuria, 3+ glucosuria, 112 WBC, 4+ bacteria suggestive of UTI - Blood cultures and urine cultures were sent, E.coli in the urine and pansensitive, Blood cultures is negative - Echocardiogram is ordered Rx: - Patient is started on Levophed and weaned off completely as of 03/30/2025 - Initially patient was started on vancomycin and Zosyn [03/27-03/30], discontinued Vanco and Zosyn, started on ceftriaxone 2 g IV once daily [03/30- - Will continue to monitor vitals # Hypertension - Patient noted to have history of hypertension but not using any medications before coming to the hospital - As of 04/01/2025, patient blood pressure was noted to be elevated with systolic blood pressure around 180-190 Plan - Patient was started on amlodipine and carvedilol - Will continue to monitor blood pressures and titrate medications as needed # NSTEMI, likely type II - In the setting of demand ischemia - Troponin at the time of admission is 0.427, peaked at 20.920 and later down trended - EKG did not show any ST-T wave changes Plan - Will continue telemetry monitoring - Medication Assistant, Dr. Nayak is consulted and will follow the recommendations # HFrEF, EF 40 to 45% - Unsure whether patient is regular methamphetamine user, as family members is not aware of the use - Patient also have severe uncontrolled diabetes mellitus, which could also contribute to the ischemic heart disease and CHF Plan - Patient should be started on GDMT but in the setting of ongoing acute kidney injury and recovering shock, will hold GDMT for now - Once the patient is hemodynamically stable and off the ventilator, will recommend to do repeat echocardiogram and if still found to have HFrEF, needed to be started on GDMT - Removed fluid through CRRT/HD - 1 dose of Bumex is given on 03/31 and 04/01. # DVT - Patient was noted to have left lower extremity nonocclusive chronic DVT extending up to the left common femoral vein. - Could not place on anticoagulation due to suspected hemorrhages in the head. - IVC filter was placed on 03/31/2025 to prevent further pulmonary embolism and suspected paradoxical emboli. Pulmoary # Pulmonary embolism - Patient was noted to have mismatch between end-tidal CO2 and arterial CO2, also noted to have increased oxygen requirements on the ventilator for which CTA chest was ordered on 03/28/2025 - CTA chest - Positive for multiple right lower pulmonary artery filling defects. Positive for left upper lobe pulmonary artery filling defects. No emboli in the main pulmonary artery segments Pneumonia versus infarction in both lower lung zones - Echocardiogram did not show any RV strain, though patient noted to have elevated troponin with peak level at 20.920, later down trended - EKG did not show any signs suggestive of pulmonary embolism Rx: - Patient cannot be anticoagulated as of now as patient had hemorrhagic infarcts in the brain - IVC filter is by Dr. Murillo on 03/31/2025 - Patient is not a candidate of mechanical thrombectomy as of now and does not seem to be in right heart failure # Acute hypoxic respiratory failure, resolving # Respiratory acidosis, resolved DDx: Sepsis, acute encephalopathy, pulmonary edema, pulmonary embolism, combined - Per patient family, patient does not have any previous history of respiratory problems and is not using any inhalers. Not a smoker Dx: - ABG at the time of admission showed pH 7.16, pCO2 58, pO2 68, FiO2 100% - Repeat ABG done on 03/27/2024 showed pH 7.3, pCO2 37, bicarb 18. - Repeat ABGs done after 03/28/2025 is within normal limits - CTA chest Positive for multiple right lower pulmonary artery filling defects. Positive for left upper lobe pulmonary artery filling defects. No emboli in the main pulmonary artery segments Pneumonia versus infarction in both lower lung zones Rx: - Patient is intubated, sedated and placed on mechanical ventilator on 03/26 and extubated on 03/31 - Though patient had pulmonary embolism, patient oxygen needs is coming down and noted to have only mild pulmonary embolism. - Will continue oxygen as needed for now. # History of asthma - Unclear if patient is using inhalers or if she has recent exacerbations - Currently does not appear to be in any exacerbations GI # Transaminitis, resolving # Hyperbilirubinemia, resolved - At the time of admission patient was found to have bilirubin of 1.6, AST 146, ALT 61 ---> 03/31, AST 76, ALT 74 DDx: Fatty liver versus chronic liver disease versus viral hepatitis versus secondary to ongoing septic shock and possible suspected ischemia Dx: - Tested positive for hepatitis C antibody - Liver ultrasound showed 10 mm gallstone, CBD enlarged 0.6 cm, liver 18.5 cm fatty infiltration Rx: - Will continue to monitor liver functions - Underlying shock - resolved - Patient has to follow-up with carburetor rebuilder on discharge on outpatient basis for follow-up on hepatitis C, currently does not suspect any active viral hepatitis # Renal # KINJAL DDx: Prerenal versus ATN in the setting of shock versus possible cardiorenal syndrome versus CKD in the setting of diabetes mellitus and hypertension versus embolic versus rhabdomyolysis - Patient does not follow-up any primary care doctor and unsure of her baseline kidney functions Dx: - Patient noted to have decreased urine output and oliguric since the time of admission - Creatinine at the time of admission is 2.8 --> 03/30, 2.4 --> 03/31, 3.1 - Patient is still anuric Rx: - Will continue to monitor renal functions - Will continue to monitor urine output - Will renally dose medication and avoid nephrotoxic medications - Reservoir Engineering Manager, Dr. Zelaya is consulted and patient is started on CRRT through dialysis catheter placement in the right IJV on 03/27 - Received HD on 03/29, 03/30, 03/31 # High anion gap metabolic acidosis # Lactic acidosis, resolved - Likely in the setting of ongoing shock, likely due to sepsis - At the time of admission, anion gap is 19, lactate is 4.7 ---> 04/01, AG 22, Lactate 1.1 - Anion gap improved on day of admission and lactic acidosis is slowly improving after starting CRRT Rx: - Received CRRT on 03/27 and 03/28, HD on 03/29, 03/30, 03/31 - Will continue to monitor lab values # Rhabdomyolysis, resolved - Patient happened to be on the floor lying down for 4 to 5 hours and also tested positive for methamphetamine on urine toxicology - CT head at the time of presentation is 9752 and received 2 L of fluid in the ED, as patient is fluid overloaded cannot give more fluids - CK levels continue to trend down slowly to 1187 Endo # Uncontrolled type 2 diabetes mellitus - Patient is not following any primary care provider and not taking medications properly per patient's family - Blood glucose at the time of admission is 550 for which patient was given 10 units of lispro in the ED - The patient had high anion gap metabolic acidosis, tested negative for beta- hydroxybutyrate and DKA is ruled out Plan - HbA1c sent - 13.6 - Started on insulin lispro sliding scale and degludec 12 units subcutaneous at bedtime, increased to 18 units on 03/30 based on morning blood sugars - Will titrate degludec according to FBS Hematology # Leukocytosis, resolving - WBC at the time of admission is 13.1, likely due to active ongoing sepsis ---> 04/01, 17.2 - likely elevated in the setting of contrast Plan - Will continue to monitor CBC and will treat with antibiotics ID # Severe sepsis - Patient presented 2/3 qSOFA criteria including GCS less than 15 and respiratory rate 35 - Blood culture, urine culture were sent - Urinalysis is suggestive of UTI, likely the source of infection - E.Coli , pansensitive Plan - Stopped Zosyn and vancomycin on 03/30, will continue ceftriaxone 2g IV (03/30 - # UTI - Urinalysis at the time of admission is significant for urinary tract infection - Urine culture showed E. coli which is pansensitive Plan - Will continue ceftriaxone Musculoskeletal # Chronic right leg wound - Likely from uncontrolled diabetes mellitus and venous congestion - On physical examination, noted 5 x 6 cm wound with well-healing granulation tissue Plan - Will refer to wound care - Arterial Doppler was ordered which showed no PAD in bilateral lower extremities Health Maintenance: Diet: NPO, pending speech eval GI prophylaxis: Protonix DVT prophylaxis: Heparin subcut 5000 units every 8 hours Antibiotics: Ceftriaxone CODE STATUS: Full Disposition: ICU Case discussed with my attending Dr. Miguel A Anna, PGY2
--- NOTE | 2025-04-01 08:53 | PD.RESPRO ---
Documentation for date of: 04/01/25 Subjective Subjective Interval history: Reason for consult: KINJAL, oligoanuria-needing CRRT History of present illness: (patient was intubated during this greeting card writer's visit so the following narrative was constructed primarily via chart checking) Vashti Ross is a 59-year-old F with a PMH of diabetes, hypertension, asthma, substance use disorder (including opiates, probable methamphetamine, and marijuana) on methadone previously, and a chronic right leg wound brought in by ambulance from her home for altered mental status. Per ED rendition of EMS report, patient was noted to be altered with a respiratory rate of 4 en route to [facility]. A total of 8 mg of Narcan was administered at this time which initially improved mentation. Upon arrival, patient was noted to be somnolent and given an additional 0.4 mg of IV Narcan which made her more active but also more combative. She was also noted to be hypoxic and in respiratory distress upon arrival which led her to be put on BiPAP. During her agitated episode, patient endorsed that she hurt all over and loudly yelled that I gotta get out of here . She was eventually given 2 mg of IV Versed and put on restraints due to her continued agitation. Later, she was taken for an MRI which required removal of her BiPAP but upon removal a subsequent drop in O2 saturation to the low 90s was noted. It was deemed that her airway was not secure and the decision was made to intubate the patient. After the MRI was performed, patient was eventually admitted to the ICU. From family collateral, it was learned that patient's last known well time was 22:30 on 03/26. Patient had been found on the floor by her at 05:00 on 03/27 whereupon he tried to rouse her from her stupor, failed, called patient's sister to notify her about patient's condition, and finally left her to go to work. Patient's sister arrived around 09:00 and found patient still lying on the bathroom whereupon this greeting card writer assumes she called for an ambulance to bring the patient to the ED. In the ED, vitals showed: BP 107/78 HR 94 RR 35 Temp 101.3 SpO2 98% on 15 L BiPAP ED Course: CBC showed high WBC 13.1 w/ neutrophilic predominance but was otherwise WNL. Coagulation panel showed high PT 13.3. ABG showed acidic pH 7.27, normal pCO2 40, high pO2 146, low HCO3 18. CMP showed low carbon dioxide 18.1, high anion gap 19, high creatinine 2.8, low eGFR 19, very high blood glucose 550, very high lactic acid 4.7, high bilirubin 1.6, high AST 146, high ALT 61, high total creatine kinase 9752, very high troponin I 0.427, high BNP 297, and high procalcitonin 43.23. UA showed 2+ protein, 3+ glucose, 1+ ketones, 3+ blood, high RBC 10, high WBC 112, 3+ calcium oxalate crystals, 4+ bacteria, normal random sodium 34.2, normal random potassium 26, and low random chloride 23.2. UDS was (+) for amphetamines/methamphetamines and marijuana. Serological studies were reactive for hepatitis C antibody. Imaging: Head CT showed findings most consistent with acute right frontal lobe infarcts. Brain MRI showed multiple embolic-type foci of restricted diffusion in the bilateral occipital lobes, bilateral frontal lobes, and bilateral parietal lobes most consistent with acute infarcts. CXR showed bibasilar pneumonia and findings suspicious for mild associated heart failure. Renal US showed small kidneys with right renal cortical thinning as well as mild right and moderate left renal parenchymal scar formation. Carotid doppler study showed 20-40% stenosis of the right internal carotid artery and 0-10% stenosis of the left internal carotid artery. EKG was unremarkable. In the ED, patient was given Duoneb Precedex, doxycycline, etomidate, Lasix, regular insulin, ketamine, Versed, naloxone, 1 L LR bolus, Zemuron, and 1 L NS bolus. Patient was intubated due to low GCS and was admitted to the ICU. Nephrology was consulted due to patient's need for urgent hemodialysis. Neurology is also following. Interval History 03/28/2025: No overnight events. Patient seen and examined at bedside; they remained intubated and unable to describe their current experience. Notable labs today include: WBC bump to 15.7 from 15.0, creatinine drop to 1.6 from 2.4, blood glucose 170, AST drop to 148 from 179, ALT dropped to 104 from 114, total CK drop to 3666 from 5964, and troponin I drop to 8.789 from 14.934. Urine culture was positive for E. coli and 1 of 2 blood cultures was positive for GPC's (current speciation still pending). She remains without urinary output and has required CRRT. Her echocardiogram came back today showing decreased ejection fraction of 40 to 45% along with vegetations of the tricuspid valve (suggestive of endocarditis). From nephrology's standpoint, patient will be receiving hemodialysis today. 03/29/2025: Patient seen and examined in the ICU. Intubated and unable to follow commands. On exam, she opens eyes spontaneously, extremities are cold and edematous. she remains on pressors,BP 90s/50s wbc 16.8, Cr 1.8 from 1.3.Extensive chronic nonocclusive DVT involving the common femoral left superficial femoral, popliteal, peroneal, posterior tibial and greater saphenous veins HD today 03/30/2025: Patient seen and examined in the ICU, yesterday she was noted to be following commands in the afternoon, today however she is on several sedative medications. She remains on pressors, BP 110s to 120s/60s, WBC 11 from 16. LFT downtrending. BUN 25 from 18, Cr 2.4 from 1.8. On exam her LLE has dark fourth toe and big toe suspect embolic etiology, pending IVC filter per primary team. 03/31/2025: Patient seen and examined in the ICU, pt is noted to be able to follow simple comands, she remains intubated. SBP 130s-160s. WBC 16 from 11, BUN 32 from 25, Cr 3.1 from 2.4. IVC filter placement scheduled for today. SYLVIE yesterday had showed atrial septal aneurysm, likely source of embolic strokes in the setting of DVT. Currently holding off on anticoagulation due to concern for hemorrhagic conversion of infarct per CARDS, Dr Fernandez recommended transfer to [facility] for closure of shunt. Plan for HD today. 04/01/2025: Patient seen and examined in the ICU. pt is extubated, oxymask in place. alert and oriented, answering questions appropriately and following commands. SBP 150s, WBC 17 from 16, CO 19, BUN 34, Cr 3.6, eGFR 14, Lactic acid 1.1, UOP 650 very clear urine. had 1x bumex yesterday, d/c transfer order for PFO repair, pt states that she has had 2 miscarrages in the past, query antiphospholipid syndrome. CTA chest/ AP Large splenic infarct with thrombus in upper lobe splenic arteries. Plan to hold HD. Exam Vital Signs Temp Pulse Resp BP Pulse Ox O2 Del Method O2 Flow Rate 98.9 F 83 14 152/50 H 95 Oxy Mask 4 03/31/25 20:00 04/01/25 06:07 04/01/25 06:07 04/01/25 06:01 04/01/25 06:07 03/31/25 13:12 04/01/25 06:07 FiO2 40 03/31/25 09:17 Narrative Exam General: alert and oriented, following commands, conversational, answering questions appropriately HEENT: Normocephalic, atraumatic, mucous membranes moist, Mouth with stickly mucus Heart: Regular rate and rhythm, no murmurs. Lungs: Clear to auscultation . Abdomen: Soft, nondistended, nontender, positive bowel sounds. ?No guarding or rebound tenderness. , hernandez in place with clear dilute urine Neurologic: alert and oriented, Extremities: Noted chronic wound of 5 x 6 cm in the right lower extremity. Noted tissue pressure injuries on the upper lateral right and left thigh. Also noted infected area in the right toe. Peripheral pulses are 2+ There is demarcated ischemia of left foot of 1st and 5th digit. L knee surgical scar. UE bandaged. and restrained Objective Labs 04/01/25 04:44 04/01/25 04:44 Labs: Laboratory Results - last 24 hr 03/31/25 03/31/25 04/01/25 08:22 17:30 04:44 WBC 16.9 H D 17.2 H RBC 3.54 L 3.43 L Hgb 10.4 L 10.0 L Hct 33.2 L 31.9 L MCV 94 93 MCH 29.4 29.2 MCHC 31.3 31.3 RDW Std Deviation 52.0 H 52.9 H Plt Count 157 204 D Neut % (Auto) 62 62 Lymph % (Auto) 13 10 [place] % (Auto) 7 7 Eos % (Auto) 1 1 Baso % (Auto) 0 0 Neut # (Auto) 10.6 H 10.6 H Lymph # (Auto) 2.3 1.7 [place] # (Auto) 1.2 H 1.2 H Eos # (Auto) 0.2 0.1 Baso # (Auto) 0.0 0.0 Immature Gran # (Auto) 2.66 H 3.55 H Absolute Nucleated RBC 0.08 H 0.05 H Immature Gran % 16 H 21 H Nucleated RBC % 1 H 0 PT 11.7 INR 1.1 APTT 28.0 Puncture Site Arterial Line ABG pH 7.39 ABG pCO2 36 ABG pO2 80 L ABG HCO3 21 ABG O2 Saturation 96 ABG Base Excess -3 Oxygen Liter Flow 4 Sodium 139 141 Potassium 3.8 3.8 Chloride 100 100 Carbon Dioxide 24.7 19.2 L Anion Gap 14 22 H BUN 32 H 34 H Creatinine 3.1 H D 3.6 H D Estim Creat Clear Calc 20.9 L 17.7 L eGFR 17 L 14 L* BUN/Creatinine Ratio 10 L 9 L Glucose 175 H 176 H Calculated Osmolality 288 292 Calcium 8.9 9.1 Corrected Calcium 9.5 9.6 Total Bilirubin 0.4 0.3 AST 76 H 76 H ALT 70 H 74 H Alkaline Phosphatase 112 113 Total Protein 5.5 L 5.8 Albumin 3.2 L 3.4 L Globulin 2.3 2.4 Albumin/Globulin Ratio 1.4 1.4 Random Vancomycin 19.8 ABG Interpretation ABG results: 03/26/25 03/26/25 03/26/25 11:18 11:44 16:23 ABG pH 7.27 L Cancelled ABG pCO2 40 Cancelled ABG pO2 146 H Cancelled ABG HCO3 18 L Cancelled ABG O2 Saturation 100 H Cancelled ABG Base Excess -8 L Cancelled VBG pH 7.19 L VBG pCO2 48 VBG pO2 37 VBG Base Excess -10 L 03/26/25 03/27/25 03/27/25 18:43 00:17 03:42 ABG pH 7.16 L* D 7.24 L Cancelled ABG pCO2 58 H D 44 D Cancelled ABG pO2 68 L D 80 L Cancelled ABG HCO3 21 19 L Cancelled ABG O2 Saturation 90 L 96 Cancelled ABG Base Excess -9 L -8 L Cancelled VBG pH VBG pCO2 VBG pO2 VBG Base Excess 03/27/25 03/27/25 03/27/25 04:04 07:55 18:48 ABG pH 7.26 L 7.30 L ABG pCO2 43 37 ABG pO2 83 174 H D ABG HCO3 19 L 18 L ABG O2 Saturation 97 101 H ABG Base Excess -7 L -8 L VBG pH 7.21 L 7.31 L VBG pCO2 49 48 VBG pO2 54 52 VBG Base Excess -8 L -2 03/27/25 03/28/25 03/28/25 19:07 04:06 13:37 ABG pH 7.36 7.38 7.41 ABG pCO2 41 45 44 ABG pO2 79 L D 73 L 105 D ABG HCO3 23 27 H 27 H ABG O2 Saturation 97 96 99 H ABG Base Excess -2 1 2 VBG pH VBG pCO2 VBG pO2 VBG Base Excess 03/29/25 03/30/25 03/31/25 04:45 04:50 04:40 ABG pH 7.38 7.42 7.39 ABG pCO2 45 40 41 ABG pO2 72 L D 66 L 63 L ABG HCO3 27 H 26 25 ABG O2 Saturation 98 93 92 ABG Base Excess 1 2 0 VBG pH VBG pCO2 VBG pO2 VBG Base Excess 03/31/25 17:30 ABG pH 7.39 ABG pCO2 36 ABG pO2 80 L ABG HCO3 21 ABG O2 Saturation 96 ABG Base Excess -3 VBG pH VBG pCO2 VBG pO2 VBG Base Excess Quality Measures Quality Measures VTE prophylaxis Assessment & Plan Assessment Current Active Medications: Generic Name Dose Route Start Last Admin Trade Name Freq PRN Reason Stop Dose Admin Acetaminophen 650 mg 03/26/25 18:58 Acetaminophen 325 Mg Tablet PO 04/25/25 18:57 Q4HR PRN Pain Scale 1-3 fever >100.4 Albuterol/Ipratropium 3 ml 03/27/25 01:00 04/01/25 06:06 Albuterol/Ipratropium (Duoneb) Rt Jennifer 3 Ml Nebu INH 04/26/25 00:59 3 ml Q6HRRT CRIS Administration Atorvastatin Calcium 80 mg 03/26/25 21:00 03/31/25 21:22 Atorvastatin Calcium 20 Mg Tablet PO 04/25/25 20:59 Not Given HS CRIS Atropine Sulfate 1 mg 03/30/25 10:33 Atropine Sulf Inj 0.1 Mg/Ml Syr 10 Ml IV 04/29/25 10:32 X1 PRN Bradycardia < 35 for greater t Carvedilol 3.125 mg 04/01/25 17:30 Carvedilol 3.125 Mg Tablet PO 05/01/25 17:29 BIDWM CRIS Dextrose 25 ml 03/26/25 20:20 Dextrose 50%-Water Inj 50 Ml Syringe IV 04/25/25 20:19 Q15MIN PRN BG 50-70 responsive npo pt Dextrose 50 ml 03/26/25 20:20 Dextrose 50%-Water Inj 50 Ml Syringe IV 04/25/25 20:19 Q15MIN PRN BG <50 OR BG <70 & pt unresponsive Glucagon 1 mg 03/26/25 20:20 Glucagon Inj 1 Mg Vial IM Q15MIN PRN BG <70, and no IV access Haloperidol Lactate 5 mg 03/31/25 12:00 03/31/25 13:39 Haloperidol Lact Inj 5 Mg/Ml Vial IV 04/05/25 11:59 5 mg X1 PRN Administration AGITATION (SEVERE) Haloperidol Lactate 5 mg 04/01/25 08:21 Haloperidol Lact Inj 5 Mg/Ml Vial IV X1 PRN AGITATION (SEVERE) Heparin Sodium (Porcine) 5,000 unit 03/27/25 14:00 04/01/25 05:49 Heparin Sod Inj 5000 Unit/Ml Vial SC 04/10/25 13:59 5,000 unit Q8HR CRIS Administration Heparin Sodium (Porcine) 2,600 unit 03/28/25 19:33 03/31/25 18:01 Heparin Sod Inj 1000 Unit/Ml Vial 10 Ml INDWELLCAT 04/11/25 19:32 2,600 unit X1 PRN Administration DIALYSIS Norepinephrine/Dextrose 8 mg in 250 mls @ 8.292 mls/hr 03/26/25 19:50 03/31/25 08:00 Levophed In D5w 8mg/250ml IV 04/25/25 19:49 0 mcg/kg/min .Q24H PRN 0 mls/hr PER PROTOCOL Titration Protocol 0.05 MCG/KG/MIN Dexmedetomidine/Sodium Chloride 400 mcg in 100 mls @ 4.423 mls/hr 03/26/25 23:53 04/01/25 08:00 Precedex Ivpb IV 04/25/25 14:17 1 mcg/kg/hr .[id number] PRN 22.113 mls/hr Per PROTOCOL Administration Protocol 0.2 MCG/KG/HR Albumin Human 25 gm in 100 mls @ 100 mls/min 03/29/25 10:36 03/31/25 18:45 Albuminar-25 Ivpb IV Infused PRN PRN Infusion DIALYSIS Ceftriaxone Sodium/Dextrose 1 gm in 50 mls @ 100 mls/hr 04/01/25 09:00 Rocephin/D5w 1gm Iv Premix IV 04/08/25 08:59 QDAY [facility] Insulin Degludec 20 unit 03/30/25 21:00 04/01/25 00:10 Insulin Degludec 5 Unit/0.05 Ml (Per 5 Units) SC 04/29/25 20:59 Not Given HS CRIS Insulin Human Lispro 0 unit 03/27/25 06:33 04/01/25 05:57 Insulin Lispro (Admelog) 1 Unit/0.01 Ml Unit SC 04/25/25 20:29 Not Given Q6HR [facility] Protocol Mupirocin 0 gm 03/29/25 08:30 04/01/25 05:48 Mupirocin Oint 2% 15 Gm Tube TOP 04/05/25 08:29 1 applicatio TID [facility] Administration Plan Vashti Ross is a 59-year-old F with a PMH of diabetes, hypertension, asthma, substance use disorder (including opiates, probable methamphetamine, and marijuana) on methadone previously, and a chronic right leg wound brought in by ambulance from her home for altered mental status. Patient was intubated due to low GCS and was admitted to the ICU. echo with tricuspid vegitations and EF 40-45%, pt with extensive PE and extensive non occlusive DVT of LLE, SYLVIE revealed atrial septal aneurysm, likely source of embolic strokes in the setting of DVT. per cards, holding off on anticoagulation due to concern for hemorrhagic conversion of infarct. d/c transfer order to [facility] for closure of shunt (PFO is likely chronic) . s/p IVC filter, Hold HD today, good UOP dilute #KINJAL vs. KINJAL on CKD vs. CKD Stage IV #likely 2/2 multifactorial etiologies including intravascular depletion, diabetic nephropathy, blood pressure derangements, glomerular diseases, sepsis-induced ATN, rhabdomyolysis, cardiorenal syndrome, crystalline nephropathy associated with oxalate, or atheroembolic disease #Rhabdomyolysis Admission creatinine 2.8 (baseline: unknown), eGFR 19 Other notable labs include: blood glucose 550, total CK 9752, troponin 0.427, UDS(+) for amphetamines/methamphetamines on 03/29 BUN 18 from 12, Cr 1.8 from 1.3 on 03/30 BUN 24 from 18, Cr 2.4 from 1.8 on 03/31 BUN 32 from 24, Cr 3.1 from 2.4 on 04/01 BUN 34 from 32, Cr 3.6 from 3.1, 650 UOP clear and dilute HD: 03/28 CRRT, HD 03/29, 03/30, 03/31 Treatment Plan - HOLD HD today -Monitor renal panel -Avoid nephrotoxic agents (aminoglycosides, NSAIDs, radiographic contrast) -Adjust medication dosing based on patient's impaired renal function -Hold any KRISSY/ARB/diuretics #Other medical problems #CVA- pending repeat CT head #Acute encephalopathy #NSTEMI, Type 1 vs Type 2 #query APS (hx of miscarriages) #Multiple PE - CTA Positive for multiple right lower lobe pulmonary artery and left upper lobe pulmonary artery emboli #Extensive nonocclusive DVT LLE -s/p IVC filter #CHF - echo with EF 40 -45% #Endocarditis -TTE with tricuspid vegitations #Atrial aneurysm - SYLVIE with Atrial septal aneurysm present and bubble study positive for PFO especially with increased right atrial pressure. #Large splenic infarct with thrombus in upper lobe splenic arteries #Acute hypoxic respiratory failure #Respiratory acidosis #Community-acquired pneumonia #Transaminitis + hyperbilirubinemia #HAGMA #T2DM #Leukocytosis uptrending #septic shock #Left toes gangreen vs Atheroembolism of left lower extremity toes -Continue management per primary care team (ICU) Plan discussed with nephrology attending Dr. Nathalie Vallejo MD Internal Medicine PGY-1 Attending Provider Attestation/Addendum Patient seen and examined with resident physician Dr. Vallejo. Note reviewed, agree with findings and recommendations. Patient currently seen in ICU. Currently on pressors. Significant edema noted. Patient received 2 days of CRRT. On minimal dose of pressors. Decided to proceed with conventional dialysis. Patient so far received 3 dialysis treatments. Started to make urine. 1 dose of Bumex was given yesterday. Will hold dialysis today. Spoke to Dr. Grady-probably patient has hypercoagulable // thrombotic disorder. Patient has both arterial infarcts, venous thrombosis CT brain yesterday showed questionable subarachnoid hemorrhage. With KINJAL-repeat urinalysis to rule out hematuria/proteinuria. Patient stated she had 2 abortions in the past. Not sure on history. Plan of care discussed with the ICU nurse. Spoke to ICU team, Dr. Grady. Critical care time spent more than 42 minutes regarding plan of care and disease management. Will proceed with CT-guided renal biopsy to rule out atheroembolic disease in the kidney vs other etiology Thank you Luann for allowing me to participate in the care of Ms. Kingston
[2025-04-01 09:11] LABS: Lactate (Lactic Acid) 1.1 mMol/L (0.4-2.0)
[2025-04-01] MEDS: cefTRIAXone/D5w 1gm IV premix 1 GM/50 ML BAG IV (09:25)
[2025-04-01] MEDS: BUMETANIDE INJ 0.25 MG/ML VIAL 4 ML 1 MG IVP (10:03)
--- NOTE | 2025-04-01 10:10 | PD.RESPRO ---
Documentation for date of: 04/01/25 Subjective Subjective Interval history: Patient is a 59 year old female with a past medical history of hypertension, diabetes mellitus, asthma, chronic right leg wound who was admitted on 03/26/2025 stroke, with multiple embolic type foci who required ICU for mechanical ventilation as patient unable to protect airway. 03/30/2025: Patient is currently schedule for SYLVIE at 2 PM. Weaned off sedation and able to follow commands. Currently holding off heparin drip until SYLVIE, edema and possible hemorrhage noted on repeat Ct. 03/31/2025: Overnight, ICU team spoke with cardiothoracic surgeon, given small PFO currently hodling off transfer until they speak with neurology. Given concern for cerebral edema and possible hemorrhage no anticoagulation. Primary team ordered IVC filter given new emoblic like strokes, placement completed. Precedex resumed, propofolol, and fentany. Chest/Abdomen/Pelvis CTA obtained noted penumonia versus infarct in the right upper lobes and both bases. Large splenic infract with thrombus in upper lobe splenic arteries (consider follow up, US) 04/01/2025: Patient is currently off sedation and off mechanical ventilation, saturnating well on 4 liters oxy mask. Patient is alert and orientated to name, location, and but not time. Patient albe to follow commands but still appears tired from sedation. Patient slow to track. NO dialysis today. Repeat CT (03/31/2025): Interval hemorrhage likely subarachnoid in the right frontal convexity. Interval hemorrhage desnity in the right front sulci. No midline shift. Ventrilces not enlarged. Repeat CT head in the next 24 hours. Asprin & Atorvastatin. Exam Vital Signs Temp Pulse Resp BP Pulse Ox O2 Del Method O2 Flow Rate 98.9 F 77 14 174/66 H 95 Oxy Mask 4 03/31/25 20:00 04/01/25 10:03 04/01/25 06:07 04/01/25 10:03 04/01/25 06:07 03/31/25 13:12 04/01/25 06:07 FiO2 40 03/31/25 09:17 Narrative Exam General Appearance: Alert & Oriented X2, well-nourished female who is lying in bed in mild distress, left 1st and 2nd digit noted for echomosis. HEENT: Skull symmetrical and atraumatic. Conjunctivae pale pink and moist. Pupils equal, round, reactive to light and accommodation (PERRL). Able to track but delayed. no nystagmus noted. Cardio: Normal Rate and Rhythm with S1 and S2 heart sounds. No murmurs or extra heart sounds auscultated. No bruits on carotid auscultation. No peripheral edema or cyanosis. Lungs: Symmetric with good expansion. Chest and back non-tender. Breath sounds vesicular without crackles, wheezing or rhonchi Abdomen: Non-tender, Non-distended, Normal Reactive Bowel Sounds Neuro: Alert, Yes cooperative, Yes oriented to person, place, and time. Speech not clear as patient is currently sedated. CN grossly intact. Upper motor strength 3/5 and Lower motor strength 2/5. withdrawals to painful stimuli Objective Labs 04/02/25 04:25 04/02/25 04:25 Labs: Laboratory Results - last 24 hr 03/31/25 04/01/25 04/01/25 17:30 04:44 09:01 WBC 17.2 H RBC 3.43 L Hgb 10.0 L Hct 31.9 L MCV 93 MCH 29.2 MCHC 31.3 RDW Std Deviation 52.9 H Plt Count 204 D Neut % (Auto) 62 Lymph % (Auto) 10 [place] % (Auto) 7 Eos % (Auto) 1 Baso % (Auto) 0 Neut # (Auto) 10.6 H Lymph # (Auto) 1.7 [place] # (Auto) 1.2 H Eos # (Auto) 0.1 Baso # (Auto) 0.0 Immature Gran # (Auto) 3.55 H Absolute Nucleated RBC 0.05 H Immature Gran % 21 H Nucleated RBC % 0 Puncture Site Arterial Line ABG pH 7.39 ABG pCO2 36 ABG pO2 80 L ABG HCO3 21 ABG O2 Saturation 96 ABG Base Excess -3 Oxygen Liter Flow 4 Sodium 141 Potassium 3.8 Chloride 100 Carbon Dioxide 19.2 L Anion Gap 22 H BUN 34 H Creatinine 3.6 H D Estim Creat Clear Calc 17.7 L eGFR 14 L* BUN/Creatinine Ratio 9 L Glucose 176 H Calculated Osmolality 292 Lactic Acid 1.1 Calcium 9.1 Corrected Calcium 9.6 Total Bilirubin 0.3 AST 76 H ALT 74 H Alkaline Phosphatase 113 Total Protein 5.8 Albumin 3.4 L Globulin 2.4 Albumin/Globulin Ratio 1.4 Random Vancomycin 19.8 ABG Interpretation ABG results: 03/26/25 03/26/25 03/26/25 11:18 11:44 16:23 ABG pH 7.27 L Cancelled ABG pCO2 40 Cancelled ABG pO2 146 H Cancelled ABG HCO3 18 L Cancelled ABG O2 Saturation 100 H Cancelled ABG Base Excess -8 L Cancelled VBG pH 7.19 L VBG pCO2 48 VBG pO2 37 VBG Base Excess -10 L 03/26/25 03/27/25 03/27/25 18:43 00:17 03:42 ABG pH 7.16 L* D 7.24 L Cancelled ABG pCO2 58 H D 44 D Cancelled ABG pO2 68 L D 80 L Cancelled ABG HCO3 21 19 L Cancelled ABG O2 Saturation 90 L 96 Cancelled ABG Base Excess -9 L -8 L Cancelled VBG pH VBG pCO2 VBG pO2 VBG Base Excess 03/27/25 03/27/25 03/27/25 04:04 07:55 18:48 ABG pH 7.26 L 7.30 L ABG pCO2 43 37 ABG pO2 83 174 H D ABG HCO3 19 L 18 L ABG O2 Saturation 97 101 H ABG Base Excess -7 L -8 L VBG pH 7.21 L 7.31 L VBG pCO2 49 48 VBG pO2 54 52 VBG Base Excess -8 L -2 03/27/25 03/28/25 03/28/25 19:07 04:06 13:37 ABG pH 7.36 7.38 7.41 ABG pCO2 41 45 44 ABG pO2 79 L D 73 L 105 D ABG HCO3 23 27 H 27 H ABG O2 Saturation 97 96 99 H ABG Base Excess -2 1 2 VBG pH VBG pCO2 VBG pO2 VBG Base Excess 03/29/25 03/30/25 03/31/25 04:45 04:50 04:40 ABG pH 7.38 7.42 7.39 ABG pCO2 45 40 41 ABG pO2 72 L D 66 L 63 L ABG HCO3 27 H 26 25 ABG O2 Saturation 98 93 92 ABG Base Excess 1 2 0 VBG pH VBG pCO2 VBG pO2 VBG Base Excess 03/31/25 17:30 ABG pH 7.39 ABG pCO2 36 ABG pO2 80 L ABG HCO3 21 ABG O2 Saturation 96 ABG Base Excess -3 VBG pH VBG pCO2 VBG pO2 VBG Base Excess Quality Measures Quality Measures VTE prophylaxis Assessment & Plan Assessment Current Active Medications: Generic Name Dose Route Start Last Admin Trade Name Freq PRN Reason Stop Dose Admin Acetaminophen 650 mg 04/01/25 09:12 Acetaminophen 325 Mg Tablet PO 04/25/25 18:57 Q4HR PRN Pain Scale 1-3 OR fever >100.4 Albuterol/Ipratropium 3 ml 03/27/25 01:00 04/01/25 06:06 Albuterol/Ipratropium (Duoneb) Rt Jennifer 3 Ml Nebu INH 04/26/25 00:59 3 ml Q6HRRT CRIS Administration Amlodipine Besylate 5 mg 04/01/25 09:30 04/01/25 10:03 Amlodipine Besylate 5 Mg Tablet PO 05/01/25 09:29 5 mg QDAY CRIS Administration Aspirin 81 mg 04/01/25 09:30 Aspirin Ec 81 Mg Tabec PO 05/01/25 09:29 QDAY CRIS Atorvastatin Calcium 80 mg 03/26/25 21:00 03/31/25 21:22 Atorvastatin Calcium 20 Mg Tablet PO 04/25/25 20:59 Not Given HS CRIS Atropine Sulfate 1 mg 03/30/25 10:33 Atropine Sulf Inj 0.1 Mg/Ml Syr 10 Ml IV 04/29/25 10:32 X1 PRN Bradycardia < 35 for greater t Carvedilol 6.25 mg 04/01/25 17:30 Carvedilol 3.125 Mg Tablet PO 05/01/25 17:29 BIDWM CRIS Dextrose 25 ml 03/26/25 20:20 Dextrose 50%-Water Inj 50 Ml Syringe IV 04/25/25 20:19 Q15MIN PRN BG 50-70 responsive npo pt Dextrose 50 ml 03/26/25 20:20 Dextrose 50%-Water Inj 50 Ml Syringe IV 04/25/25 20:19 Q15MIN PRN BG <50 OR BG <70 & pt unresponsive Glucagon 1 mg 03/26/25 20:20 Glucagon Inj 1 Mg Vial IM Q15MIN PRN BG <70, and no IV access Haloperidol Lactate 5 mg 04/01/25 08:21 Haloperidol Lact Inj 5 Mg/Ml Vial IV X1 PRN AGITATION (SEVERE) Heparin Sodium (Porcine) 5,000 unit 03/27/25 14:00 04/01/25 05:49 Heparin Sod Inj 5000 Unit/Ml Vial SC 04/10/25 13:59 5,000 unit Q8HR CRIS Administration Heparin Sodium (Porcine) 2,600 unit 03/28/25 19:33 03/31/25 18:01 Heparin Sod Inj 1000 Unit/Ml Vial 10 Ml INDWELLCAT 04/11/25 19:32 2,600 unit X1 PRN Administration DIALYSIS Norepinephrine/Dextrose 8 mg in 250 mls @ 8.292 mls/hr 03/26/25 19:50 03/31/25 08:00 Levophed In D5w 8mg/250ml IV 04/25/25 19:49 0 mcg/kg/min .Q24H PRN 0 mls/hr PER PROTOCOL Titration Protocol 0.05 MCG/KG/MIN Dexmedetomidine/Sodium Chloride 400 mcg in 100 mls @ 4.423 mls/hr 03/26/25 23:53 04/01/25 08:00 Precedex Ivpb IV 04/25/25 14:17 1 mcg/kg/hr .[id number] PRN 22.113 mls/hr Per PROTOCOL Administration Protocol 0.2 MCG/KG/HR Albumin Human 25 gm in 100 mls @ 100 mls/min 03/29/25 10:36 03/31/25 18:45 Albuminar-25 Ivpb IV Infused PRN PRN Infusion DIALYSIS Ceftriaxone Sodium/Dextrose 1 gm in 50 mls @ 100 mls/hr 04/01/25 09:00 04/01/25 09:25 Rocephin/D5w 1gm Iv Premix IV 04/08/25 08:59 100 mls/hr QDAY CRIS Administration Insulin Degludec 20 unit 03/30/25 21:00 04/01/25 00:10 Insulin Degludec 5 Unit/0.05 Ml (Per 5 Units) SC 04/29/25 20:59 Not Given HS CRIS Insulin Human Lispro 0 unit 03/27/25 06:33 04/01/25 05:57 Insulin Lispro (Admelog) 1 Unit/0.01 Ml Unit SC 04/25/25 20:29 Not Given Q6HR [facility] Protocol Mupirocin 0 gm 03/29/25 08:30 04/01/25 05:48 Mupirocin Oint 2% 15 Gm Tube TOP 04/05/25 08:29 1 applicatio TID [facility] Administration Plan Patient is a 59 year old female with a past medical history of hypertension, diabetes mellitus, asthma, chronic right leg wound who was admitted on 03/26/2025 stroke, with multiple embolic type foci who required ICU for mechanical ventilation as patient unable to protect airway. #Acute Encephaloapthy, likely multifactorial given substance use disorder and CVA #Acute Multiple mbolic type foci occipital lobes, bilateral frontal and bilateral parietal lobe Currently holding off anticoagulation given concern for CT images noted to hemorrhagic areas. Given PE and small PFO, PE could be the cause of embolism vs endocardititis but less likely as negative SYLVIE for vegation. Although leukocytosis noted, less likely secondary to endocarditis in origin and more likely secondary to ischemia vs less likely increased coagulopathy as no previous history of DVTs. Coagulopathy panel ordered by primary team. IVC filtered ordered by primary team. Patient would benefit from [facility] per cardiology, likely not a candidate from thrombectomy as patient is unstable. CT Head: Interval multiple areas of subarachnoid hemorrhage as above Chest/Abdomen/Pelvis CTA obtained noted penumonia versus infarct in the right upper lobes and both bases. Large splenic infract with thrombus in upper lobe splenic arteries (consider follow up, US to confirm splenic thrombus) CT head Repeat (03/30/2025): Additional focal areas of edema most consistent w/ hemorrhagic infarcts in the left pareital lobe and left occipital lobe MRI: Multiple Embolic type Foci Utox positive: meth and THC Plan: -Repeat CT head in 24 hours. -Transfer less likely -continue Atorvastatin 80 mg HS & Aspirin 81 mg once daily -Aspiration precautions. #Shock, improved. #Luekocytosis #Sepsis, concern for bacteremia, concern for endocarditis #CHF HFrEF 40-45% (03/26/2025) #Tricuspid valve vegetation, endocarditis #Acute renal failure #Rhabdomyolysis #Acute Respiraotry fialure, mechanical ventilation #PE #Hepatitis C #Hyperglycemia, uncontroleld #Diabetes Mellitus #Substance Use Disorder - The patient's plan was discussed with attending Dr. Benito Sy MD PGY2 Internal Medicine Attending Provider Attestation/Addendum I personally have seen and examined the patient at the bedside and I agreed with the resident's findings, assessment and plan of care. Impression: Multiple embolic phenomena including ischemic CVA involving multiple vascular territories with possible subarachnoid hemorrhage/subdural hemorrhage Plan/recommendations will follow-up with repeat CT head to decide about further treatment and possibility of starting anticoagulant therapy
[2025-04-01 10:17] LABS: Path Review Blood Smear Sent to Pathologist
[2025-04-01] MEDS: LABETALOL INJ 5 MG/ML VIAL 20 ML 10 MG IVP (11:09)
[2025-04-01 13:33] LABS: Beta Hydroxybutyrate 1.6 mmol/L (<0.6)
--- NOTE | 2025-04-01 16:56 | PC.SS ---
Update: Patient on 4L oxymask. P.O. feeding. Patient receiving IV antibiotics. Patient not receiving pressor support. Cardiology and nephrology are consulting.
--- NOTE | 2025-04-01 16:57 | PC.SS ---
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 Referral for outpatient dialysis to be submitted. Cardiologist is Dr. Zelaya.
[2025-04-01] MEDS: INSULIN LISPRO (AdmeLOG) 1 UNIT/0.01 ML UNIT SC (17:57)
[2025-04-01 19:30] LABS: Albumin, Serum 3.2 gm/dL (3.5-5.0); Anion Gap 15 (7-16); BUN/Creatinine Ratio 8 Ratio (12-20); Blood Urea Nitrogen 38 mg/dL (9-23); Calcium 8.3 mg/dL (8.3-10.6); Calcium (Corrected) 8.9 mg/dL (8.5-10.1); Carbon Dioxide 22.8 mMol/L (20.0-31.0); Chloride 100 mMol/L (98-107); Creatinine (Component) 4.5 mg/dL (0.6-1.3); Estimated Creatinine Clearance 14.2 mL/min (>60); Glucose 221 mg/dL (74-106); Osmolality,Calculated 291 (275-295); Phosphorous 6.6 mg/dL (2.4-5.1); Potassium 3.6 mMol/L (3.4-5.1); Sodium 138 mMol/L (136-145); eGFR 11 See Note
--- NOTE | 2025-04-01 19:44 | ESPR_ITS ---
<Statement entered by Michael Nayak MD - 04/02/25 22:49> I personally examined evaluated the patient was extubated successfully improving clinically not have any further embolization Shortness of breath or chest pain was not reported. Patient did have IVC filter placed successfully decrease the chance of further embolization hopefully the stability for now but patient may be candidate for PFO closure later on but for now she is too unstable to have any particular invasive procedures or transfer to any other hospital not indicated. I will sign of the patient's cardiology care right now if there is a problem with cardiovascular issues or arrhythmias or other issues I will be glad to see your patient again treatment plan recommendations discussed agree with treatment plan recommendation as documented by PGY [address] WANDY HALL Documentation for date of: 04/01/25 Subjective Subjective Interval history: No acute overnight events. Neurologically, she is making good progress overall, off sedation, continued on OxiMax. She is starting to make some urine, vitals are stable, off pressors. Repeat head CT showed new hemorrhagic conversion's. Exam Vital Signs Temp Pulse Resp BP Pulse Ox O2 Del Method O2 Flow Rate 97.8 F 66 19 101/54 L 94 L Oxy Mask 4 04/01/25 12:00 04/01/25 19:22 04/01/25 19:22 04/01/25 18:45 04/01/25 19:22 04/01/25 12:00 04/01/25 19:22 FiO2 40 03/31/25 09:17 Narrative Exam General: Off sedation, appears comfortable. HEENT: Normocephalic, atraumatic, mucous membranes moist. Heart: Regular rate and rhythm, no murmurs. Lungs: Clear to auscultation with no wheezing or crackles. Abdomen: Soft, nondistended, nontender, positive bowel sounds. ?No guarding or rebound tenderness. Neurologic: Sedated and mechanically ventilated.Bilateral pupils are equal and reacting to light. Extremities: Noted bilateral pitting edema edema extending up to the knees, noted surgical scar on the left knee likely from TKR. Noted chronic wound of 5 x 6 cm in the right lower extremity. Noted tissue pressure injuries on the upper lateral right and left thigh. Also noted infected area in the right toe. Peripheral pulses are feeble Skin: No rash or ecchymoses. Objective Labs 04/01/25 04:44 04/01/25 18:49 Labs: Laboratory Results - last 24 hr 04/01/25 04/01/25 04/01/25 04:44 09:01 13:00 WBC 17.2 H RBC 3.43 L Hgb 10.0 L Hct 31.9 L MCV 93 MCH 29.2 MCHC 31.3 RDW Std Deviation 52.9 H Plt Count 204 D Neut % (Auto) 62 Lymph % (Auto) 10 [place] % (Auto) 7 Eos % (Auto) 1 Baso % (Auto) 0 Neut # (Auto) 10.6 H Lymph # (Auto) 1.7 [place] # (Auto) 1.2 H Eos # (Auto) 0.1 Baso # (Auto) 0.0 Immature Gran # (Auto) 3.55 H Absolute Nucleated RBC 0.05 H Immature Gran % 21 H Nucleated RBC % 0 Smear Path Review Sent to Pathologist Sodium 141 Potassium 3.8 Chloride 100 Carbon Dioxide 19.2 L Anion Gap 22 H BUN 34 H Creatinine 3.6 H D Estim Creat Clear Calc 17.7 L eGFR 14 L* BUN/Creatinine Ratio 9 L Glucose 176 H Calculated Osmolality 292 Lactic Acid 1.1 Calcium 9.1 Corrected Calcium 9.6 Phosphorus Total Bilirubin 0.3 AST 76 H ALT 74 H Alkaline Phosphatase 113 Total Protein 5.8 Albumin 3.4 L Globulin 2.4 Albumin/Globulin Ratio 1.4 Beta-Hydroxybutyrate/Acetoacetate 1.6 H Random Vancomycin 19.8 04/01/25 18:49 WBC RBC Hgb Hct MCV MCH MCHC RDW Std Deviation Plt Count Neut % (Auto) Lymph % (Auto) [place] % (Auto) Eos % (Auto) Baso % (Auto) Neut # (Auto) Lymph # (Auto) [place] # (Auto) Eos # (Auto) Baso # (Auto) Immature Gran # (Auto) Absolute Nucleated RBC Immature Gran % Nucleated RBC % Smear Path Review Sodium 138 Potassium 3.6 Chloride 100 Carbon Dioxide 22.8 Anion Gap 15 BUN 38 H Creatinine 4.5 H* D Estim Creat Clear Calc 14.2 L eGFR 11 L* BUN/Creatinine Ratio 8 L Glucose 221 H Calculated Osmolality 291 Lactic Acid Calcium 8.3 Corrected Calcium 8.9 Phosphorus 6.6 H Total Bilirubin AST ALT Alkaline Phosphatase Total Protein Albumin 3.2 L Globulin Albumin/Globulin Ratio Beta-Hydroxybutyrate/Acetoacetate Random Vancomycin ABG Interpretation ABG results: 03/26/25 03/26/25 03/26/25 11:18 11:44 16:23 ABG pH 7.27 L Cancelled ABG pCO2 40 Cancelled ABG pO2 146 H Cancelled ABG HCO3 18 L Cancelled ABG O2 Saturation 100 H Cancelled ABG Base Excess -8 L Cancelled VBG pH 7.19 L VBG pCO2 48 VBG pO2 37 VBG Base Excess -10 L 03/26/25 03/27/25 03/27/25 18:43 00:17 03:42 ABG pH 7.16 L* D 7.24 L Cancelled ABG pCO2 58 H D 44 D Cancelled ABG pO2 68 L D 80 L Cancelled ABG HCO3 21 19 L Cancelled ABG O2 Saturation 90 L 96 Cancelled ABG Base Excess -9 L -8 L Cancelled VBG pH VBG pCO2 VBG pO2 VBG Base Excess 03/27/25 03/27/25 03/27/25 04:04 07:55 18:48 ABG pH 7.26 L 7.30 L ABG pCO2 43 37 ABG pO2 83 174 H D ABG HCO3 19 L 18 L ABG O2 Saturation 97 101 H ABG Base Excess -7 L -8 L VBG pH 7.21 L 7.31 L VBG pCO2 49 48 VBG pO2 54 52 VBG Base Excess -8 L -2 03/27/25 03/28/25 03/28/25 19:07 04:06 13:37 ABG pH 7.36 7.38 7.41 ABG pCO2 41 45 44 ABG pO2 79 L D 73 L 105 D ABG HCO3 23 27 H 27 H ABG O2 Saturation 97 96 99 H ABG Base Excess -2 1 2 VBG pH VBG pCO2 VBG pO2 VBG Base Excess 03/29/25 03/30/25 03/31/25 04:45 04:50 04:40 ABG pH 7.38 7.42 7.39 ABG pCO2 45 40 41 ABG pO2 72 L D 66 L 63 L ABG HCO3 27 H 26 25 ABG O2 Saturation 98 93 92 ABG Base Excess 1 2 0 VBG pH VBG pCO2 VBG pO2 VBG Base Excess 03/31/25 17:30 ABG pH 7.39 ABG pCO2 36 ABG pO2 80 L ABG HCO3 21 ABG O2 Saturation 96 ABG Base Excess -3 VBG pH VBG pCO2 VBG pO2 VBG Base Excess Quality Measures Quality Measures VTE prophylaxis Assessment & Plan Assessment Current Active Medications: Generic Name Dose Route Start Last Admin Trade Name Freq PRN Reason Stop Dose Admin Acetaminophen 650 mg 04/01/25 09:12 Acetaminophen 325 Mg Tablet PO 04/25/25 18:57 Q4HR PRN Pain Scale 1-3 OR fever >100.4 Albuterol/Ipratropium 3 ml 03/27/25 01:00 04/01/25 19:22 Albuterol/Ipratropium (Duoneb) Rt Jennifer 3 Ml Nebu INH 04/26/25 00:59 3 ml Q6HRRT CRIS Administration Amlodipine Besylate 10 mg 04/02/25 09:00 Amlodipine Besylate 5 Mg Tablet PO 05/02/25 08:59 QDAY CRIS Aspirin 81 mg 04/01/25 09:30 04/01/25 12:43 Aspirin Ec 81 Mg Tabec PO 05/01/25 09:29 Not Given QDAY CRIS Atorvastatin Calcium 80 mg 03/26/25 21:00 03/31/25 21:22 Atorvastatin Calcium 20 Mg Tablet PO 04/25/25 20:59 Not Given HS CRIS Atropine Sulfate 1 mg 03/30/25 10:33 Atropine Sulf Inj 0.1 Mg/Ml Syr 10 Ml IV 04/29/25 10:32 X1 PRN Bradycardia < 35 for greater t Carvedilol 6.25 mg 04/01/25 17:30 04/01/25 17:57 Carvedilol 3.125 Mg Tablet PO 05/01/25 17:29 6.25 mg BIDWM CRIS Administration Dextrose 25 ml 03/26/25 20:20 Dextrose 50%-Water Inj 50 Ml Syringe IV 04/25/25 20:19 Q15MIN PRN BG 50-70 responsive npo pt Dextrose 50 ml 03/26/25 20:20 Dextrose 50%-Water Inj 50 Ml Syringe IV 04/25/25 20:19 Q15MIN PRN BG <50 OR BG <70 & pt unresponsive Glucagon 1 mg 03/26/25 20:20 Glucagon Inj 1 Mg Vial IM Q15MIN PRN BG <70, and no IV access Haloperidol Lactate 5 mg 04/01/25 08:21 Haloperidol Lact Inj 5 Mg/Ml Vial IV X1 PRN AGITATION (SEVERE) Heparin Sodium (Porcine) 5,000 unit 03/27/25 14:00 04/01/25 14:34 Heparin Sod Inj 5000 Unit/Ml Vial SC 04/10/25 13:59 5,000 unit Q8HR CRIS Administration Heparin Sodium (Porcine) 2,600 unit 03/28/25 19:33 03/31/25 18:01 Heparin Sod Inj 1000 Unit/Ml Vial 10 Ml INDWELLCAT 04/11/25 19:32 2,600 unit X1 PRN Administration DIALYSIS Hydralazine HCl 25 mg 04/01/25 14:00 04/01/25 14:33 Hydralazine Hcl 25 Mg Tablet PO 05/01/25 13:59 25 mg TID CRIS Administration Norepinephrine/Dextrose 8 mg in 250 mls @ 8.292 mls/hr 03/26/25 19:50 03/31/25 08:00 Levophed In D5w 8mg/250ml IV 04/25/25 19:49 0 mcg/kg/min .Q24H PRN 0 mls/hr PER PROTOCOL Titration Protocol 0.05 MCG/KG/MIN Dexmedetomidine/Sodium Chloride 400 mcg in 100 mls @ 4.423 mls/hr 03/26/25 23:53 04/01/25 18:00 Precedex Ivpb IV 04/25/25 14:17 1 mcg/kg/hr .[id number] PRN 22.113 mls/hr Per PROTOCOL Administration Protocol 0.2 MCG/KG/HR Albumin Human 25 gm in 100 mls @ 100 mls/min 03/29/25 10:36 03/31/25 18:45 Albuminar-25 Ivpb IV Infused PRN PRN Infusion DIALYSIS Ceftriaxone Sodium/Dextrose 1 gm in 50 mls @ 100 mls/hr 04/01/25 09:00 04/01/25 09:25 Rocephin/D5w 1gm Iv Premix IV 04/08/25 08:59 100 mls/hr QDAY CRIS Administration Insulin Degludec 24 unit 04/01/25 21:00 Insulin Degludec 5 Unit/0.05 Ml (Per 5 Units) SC 05/01/25 20:59 HS CRIS Insulin Human Lispro 0 unit 03/27/25 06:33 04/01/25 17:57 Insulin Lispro (Admelog) 1 Unit/0.01 Ml Unit SC 04/25/25 20:29 3 unit Q6HR CRIS Administration Protocol Labetalol HCl 10 mg 04/01/25 11:16 Labetalol Inj 5 Mg/Ml Vial 20 Ml IVP 05/01/25 11:29 Q4HR PRN if SBP>140 Mupirocin 0 gm 03/29/25 08:30 04/01/25 14:42 Mupirocin Oint 2% 15 Gm Tube TOP 04/05/25 08:29 1 applicatio TID CRIS Administration Plan This is a 59-year-old female with PMHx of drug use disorder, presented to ED with acute encephalopathy requiring intubation with findings of multi embolic disease involving multiple systems including brain and left distal extremity, acute and failure with the cause likely renal emboli, with findings of vegetations on SYLVIE. Admitted to ICU for ventilator support, pressor support for likely septic shock, and CRRT. 1. Acute encephalopathy, multifactorial, related to metabolic derangement and embolic CVA. 2. Septic shock in settings of endocarditis with bacteremia 3. Heart failure with reduced ejection fraction EF 40-45%. 3. NSTEMI type type I (embolic [place]) vs. Type 2 (demand ischemia 2/2 shock) 4. Acute renal failure likely 2/2 septic shock vs. renal emboli vs. rhabdomyolysis 5. Atrial septal aneurysm and PFO noted on SYLVIE 6. Pulmonary embolism 7. DVT IMPRESSION: Patient remains anuric but hemodynamically stable and off vasopressors. Sedation has been discontinued, she passed a spontaneous breathing trial, and was successfully extubated to oxygen. Transfer for PFO closure was discussed with [place] but deemed unnecessary, as the small PFO is unlikely to account for embolic strokes. Further evaluation is ongoing. CT angiography of the chest revealed no aortic abnormalities, but abdomen/pelvis imaging showed a splenic infarct with thrombus in the left upper splenic artery. Neurology recommends a repeat head CT prior to initiating anticoagulation to exclude further hemorrhage; this is planned for tomorrow due to recent contrast administration. A hypercoagulable workup has been sent. Patient has a left lower extremity non-occlusive chronic DVT extending to the left common femoral vein. Anticoagulation is currently withheld due to suspected intracranial hemorrhages. An IVC filter was placed on 03/31/2025 to prevent further pulmonary or paradoxical emboli. Patient demonstrated a mismatch between end-tidal and arterial CO? and increased oxygen requirements, prompting CTA chest on 03/28/2025. Imaging showed multiple right lower and left upper pulmonary artery filling defects, with no emboli in the main pulmonary arteries. Pneumonia versus infarction was noted in both lower lung zones. Echocardiogram showed no right ventricular strain, though troponin peaked at 20.920 before downtrending. EKG did not suggest PE. Anticoagulation is currently deferred due to hemorrhagic brain infarcts. Patient is not a candidate for mechanical thrombectomy and shows no evidence of right heart failure. The IVC filter was placed. RECOMMENDATIONS: Prognosis overall remains guarded. Anticoagulation remains contraindicated due to evidence of hemorrhagic conversion on repeat head CT, making management complex. The patient is being transferred to a higher level of care HLOC for further evaluation and management, including potential PFO closure once clinically stable. In the interim, continue high-dose statin therapy. Maintain close hemodynamic monitoring with avoidance of blood pressure extremes to minimize further neurologic injury. The patient is not a candidate for surgical or percutaneous intervention at this time due to ongoing sepsis, reduced ventricular function, and overall poor prognosis. CRRT should be maintained for renal support, and multidisciplinary coordination remains essential during this transition of care. Maintain potassium >4.0 and magnesium >2.0. Cardiology will sign off. Please consult as needed. Case was discussed with attending physician, Dr. Nayak. Wandy Hall DO PGY II This document was transcribed using voice recognition technology. Minor inaccuracies may be present.
[2025-04-01 20:13] LABS: Collection Type, Urine Catheter
[2025-04-01 20:41] LABS: Bacteria,Urine 1+; Bilirubin,Urine Negative (Negative); Blood,Urine 2+ (Negative); Budding Yeast,Urine Present; Clarity,Urine Turbid (Clear/Hazy); Color,Urine Lt-Yellow (Lt Yel-Yel); Glucose, Urine Negative (Negative); Ketones,Urine Negative (Negative); Leukocyte Esterase,Urine Positive (Negative); Nitrite,Urine Negative (Negative); PH,Urine 6.5 (5.0-7.0); Protein,Urine Trace (Neg - Trace); RBC,Urine 176 /hpf (0-3); Specific Gravity,Urine 1.010 (1.001-1.035); Squamous Epithelial Cell,Urine 3 /hpf (0-5); Urobilinogen,Urine Negative mg/dL (0.0-1.0); WBC,Urine 54 /hpf (0-5)
[2025-04-01 21:07] LABS: Creatinine,Random Urine 20 mg/dL (30-125); Protein Total, Random Urine 68 mg/dL (1-14)
[2025-04-01] MEDS: INSULIN DEGLUDEC 5 UNIT/0.05 ML (PER 5 UNITS) 24 UNIT SC (21:30)
[2025-04-01] MEDS: ATORVASTATIN CALCIUM 20 MG TABLET 80 MG PO (21:44)
[2025-04-02] VITALS (31 sets, daily range): BP systolic 117–193; BP diastolic 49–88; PULSE 52–160; RESP 9–39; TEMP 36–36.6; O2SAT 85–100; BMI 36.3; BMI 12.0
[2025-04-02] MEDS: INSULIN LISPRO (AdmeLOG) 1 UNIT/0.01 ML UNIT SC ×4 (00:16→21:16)
[2025-04-02] MEDS: hydrALAZINE INJ 20 MG/ML VIAL 10 MG IVP (03:25)
[2025-04-02] MEDS: DEXMEDETOMIDINE 400 MCG IVPB 400 MCG/100 ML BAG 22.113 MCG IV ×2 (03:37→08:04)
--- NOTE | 2025-04-02 04:19 | EKG_ITS ---
[facility] Test Date: 2025-04-02 Pat Name: MARCOS MULLER [facility] Gender[facility] Female Security And Compliance Analyst: ECOBN1 : 1965 Requested By: Juvencio Olivarez Order Number: [id number] Reading MD: Juvencio Olivarez Measurements Intervals [place] Rate: 57 P: 59 [place]: 170 QRS: 31 QRSD: 94 T: 57 QT: 409 QTc: 400 Interpretive Statements SINUS BRADYCARDIA WITH SINUS ARRHYTHMIA Compared to ECG 03/27/2025 20:01:33 Sinus rhythm no longer present T-wave abnormality no longer present /store/S0/[id number]/ecg/[id number].pdf
--- NOTE | 2025-04-02 04:25 | PC.NURSE ---
pt complaining of midsternal chest pressure called Dr Olivarez orders for ekg and troponin
[2025-04-02] MEDS: HEPARIN SOD INJ 5000 UNIT/ML VIAL SC ×3 (05:42→21:16)
[2025-04-02] MEDS: MUPIROCIN OINT 2% 15 GM TUBE TOP ×3 (05:43→21:17)
[2025-04-02 06:01] LABS: Basophils # (Auto) 0.1 Thou/mm3 (0.0-0.2); Basophils % (Auto) 0 % (0-2.5); Eosinophils # (Auto) 0.2 Thou/mm3 (0.0-0.5); Eosinophils % (Auto) 1 % (0-10); Hematocrit 32.8 % (36.0-46.0); Hemoglobin 10.7 g/dL (12.0-16.0); Immature Granulocytes Auto 2.63 Thou/mm3 (0.00-0.00); Lymphocytes # (Auto) 1.9 Thou/mm3 (1.0-4.8); Lymphocytes % (Auto) 12 % (10-50); Mean Corpuscular HGB Conc 32.6 g/dl (31.0-37.0); Mean Corpuscular Hemoglobin 29.2 pg (25.0-35.0); Mean Corpuscular Volume 90 fL (80-100); Monocytes # (Auto) 1.0 Thou/mm3 (0.0-0.8); Monocytes % (Auto) 6 % (0-12); Neutrophils # (Auto) 10.9 Thou/mm3 (1.8-7.7); Neutrophils % (Auto) 65 % (37-80); Nucleated Red Blood Cell # 0.04 Thou/mm3 (0.00-0.00); Nucleated Red Blood Cell % 0 /100 WBC (0); Platelet Count 251 Thou/mm3 (140-440); RDW Standard Deviation 49.6 fL (36.4-46.3); Red Blood Count 3.66 Miln/mm3 (4.00-5.20); White Blood Count 16.7 Thou/mm3 (3.6-11.0)
[2025-04-02] MEDS: ALBUTEROL/IPRATROPIUM (Duoneb) RT SOL 3 ML NEBU INH ×4 (06:31→19:16)
[2025-04-02 06:35] LABS: Alanine Aminotransferase 70 U/L (10-49); Albumin, Serum 3.3 gm/dL (3.5-5.0); Albumin/Globulin Ratio 1.3 (1.2-2.2); Alkaline Phosphatase 118 U/L (46-116); Anion Gap 14 (7-16); Aspartate Amino Transferase 49 U/L (0-34); BUN/Creatinine Ratio 11 Ratio (12-20); Bilirubin,Total 0.3 mg/dL (0.3-1.2); Blood Urea Nitrogen 52 mg/dL (9-23); Calcium 9.3 mg/dL (8.3-10.6); Calcium (Corrected) 9.9 mg/dL (8.5-10.1); Carbon Dioxide 22.6 mMol/L (20.0-31.0); Chloride 101 mMol/L (98-107); Creatinine (Component) 4.9 mg/dL (0.6-1.3); Estimated Creatinine Clearance 13.1 mL/min (>60); Globulin 2.5 gm/dL (2.3-3.5); Glucose 144 mg/dL (74-106); Osmolality,Calculated 292 (275-295); Potassium 3.8 mMol/L (3.4-5.1); Sodium 138 mMol/L (136-145); Total Protein 5.8 gm/dL (5.7-8.2); Vancomycin,Random 18.6 mcg/mL; eGFR 10 See Note
[2025-04-02 06:39] LABS: Troponin I 0.373 ng/mL (0.0-0.045)
--- NOTE | 2025-04-02 07:43 | PC.SS ---
SHUTTLE SPOTTER conducted phone contact with [facility] staff, Ashanti [phone]; to provide update that patient might require outpatient dialysis. SHUTTLE SPOTTER informed that patient is being monitored and that [facility] has access to [employer] enabling dialysis center to review/obtain clinicals to initiate chair time schedule. Due to this capacity no need to generate referral on [facility] per [facility] staff. SHUTTLE SPOTTER confirmed that order for TB test and Hep panel has been requested.
[2025-04-02] MEDS: ASPIRIN EC 81 MG TABEC PO (08:03)
[2025-04-02] MEDS: cefTRIAXone/D5w 1gm IV premix 1 GM/50 ML BAG IV (08:04)
--- NOTE | 2025-04-02 08:57 | ESPR_ITS ---
Documentation for date of: 04/02/25 Subjective Subjective Interval history: Reason for consult: KINJAL, oligoanuria-needing CRRT History of present illness: (patient was intubated during this senior copywriter's visit so the following narrative was constructed primarily via chart checking) Vashti Ross is a 59-year-old F with a PMH of diabetes, hypertension, asthma, substance use disorder (including opiates, probable methamphetamine, and marijuana) on methadone previously, and a chronic right leg wound brought in by ambulance from her home for altered mental status. Per ED rendition of EMS report, patient was noted to be altered with a respiratory rate of 4 en route to [facility]. A total of 8 mg of Narcan was administered at this time which initially improved mentation. Upon arrival, patient was noted to be somnolent and given an additional 0.4 mg of IV Narcan which made her more active but also more combative. She was also noted to be hypoxic and in respiratory distress upon arrival which led her to be put on BiPAP. During her agitated episode, patient endorsed that she hurt all over and loudly yelled that I gotta get out of here . She was eventually given 2 mg of IV Versed and put on restraints due to her continued agitation. Later, she was taken for an MRI which required removal of her BiPAP but upon removal a subsequent drop in O2 saturation to the low 90s was noted. It was deemed that her airway was not secure and the decision was made to intubate the patient. After the MRI was performed, patient was eventually admitted to the ICU. From family collateral, it was learned that patient's last known well time was 22:30 on 03/26. Patient had been found on the floor by her at 05:00 on 03/27 whereupon he tried to rouse her from her stupor, failed, called patient's sister to notify her about patient's condition, and finally left her to go to work. Patient's sister arrived around 09:00 and found patient still lying on the bathroom whereupon this senior copywriter assumes she called for an ambulance to bring the patient to the ED. In the ED, vitals showed: BP 107/78 HR 94 RR 35 Temp 101.3 SpO2 98% on 15 L BiPAP ED Course: CBC showed high WBC 13.1 w/ neutrophilic predominance but was otherwise WNL. Coagulation panel showed high PT 13.3. ABG showed acidic pH 7.27, normal pCO2 40, high pO2 146, low HCO3 18. CMP showed low carbon dioxide 18.1, high anion gap 19, high creatinine 2.8, low eGFR 19, very high blood glucose 550, very high lactic acid 4.7, high bilirubin 1.6, high AST 146, high ALT 61, high total creatine kinase 9752, very high troponin I 0.427, high BNP 297, and high procalcitonin 43.23. UA showed 2+ protein, 3+ glucose, 1+ ketones, 3+ blood, high RBC 10, high WBC 112, 3+ calcium oxalate crystals, 4+ bacteria, normal random sodium 34.2, normal random potassium 26, and low random chloride 23.2. UDS was (+) for amphetamines/methamphetamines and marijuana. Serological studies were reactive for hepatitis C antibody. Imaging: Head CT showed findings most consistent with acute right frontal lobe infarcts. Brain MRI showed multiple embolic-type foci of restricted diffusion in the b ilateral occipital lobes, bilateral frontal lobes, and bilateral parietal lobes most consistent with acute infarcts. CXR showed bibasilar pneumonia and findings suspicious for mild associated heart failure. Renal US showed small kidneys with right renal cortical thinning as well as mild right and moderate left renal parenchymal scar formation. Carotid doppler study showed 20-40% stenosis of the right internal carotid artery and 0-10% stenosis of the left internal carotid artery. EKG was unremarkable. In the ED, patient was given Duoneb Precedex, doxycycline, etomidate, Lasix, regular insulin, ketamine, Versed, naloxone, 1 L LR bolus, Zemuron, and 1 L NS bolus. Patient was intubated due to low GCS and was admitted to the ICU. Nephrology was consulted due to patient's need for urgent hemodialysis. Neurology is also following. Interval History 03/28/2025: No overnight events. Patient seen and examined at bedside; they remained intubated and unable to describe their current experience. Notable labs today include: WBC bump to 15.7 from 15.0, creatinine drop to 1.6 from 2.4, blood glucose 170, AST drop to 148 from 179, ALT dropped to 104 from 114, total CK drop to 3666 from 5964, and troponin I drop to 8.789 from 14.934. Urine culture was positive for E. coli and 1 of 2 blood cultures was positive for GPC's (current speciation still pending). She remains without urinary output and has required CRRT. Her echocardiogram came back today showing decreased ejection fraction of 40 to 45% along with vegetations of the tricuspid valve (suggestive of endocarditis). From nephrology's standpoint, patient will be receiving hemodialysis today. 03/29/2025: Patient seen and examined in the ICU. Intubated and unable to follow commands. On exam, she opens eyes spontaneously, extremities are cold and edematous. she remains on pressors,BP 90s/50s wbc 16.8, Cr 1.8 from 1.3.Extensive chronic nonocclusive DVT involving the common femoral left superficial femoral, popliteal, peroneal, posterior tibial and greater saphenous veins HD today 03/30/2025: Patient seen and examined in the ICU, yesterday she was noted to be following commands in the afternoon, today however she is on several sedative medications. She remains on pressors, BP 110s to 120s/60s, WBC 11 from 16. LFT downtrending. BUN 25 from 18, Cr 2.4 from 1.8. On exam her LLE has dark fourth toe and big toe suspect embolic etiology, pending IVC filter per primary team. 03/31/2025: Patient seen and examined in the ICU, pt is noted to be able to follow simple comands, she remains intubated. SBP 130s-160s. WBC 16 from 11, BUN 32 from 25, Cr 3.1 from 2.4. IVC filter placement scheduled for today. SYLVIE yesterday had showed atrial septal aneurysm, likely source of embolic strokes in the setting of DVT. Currently holding off on anticoagulation due to concern for hemorrhagic conversion of infarct per CARDS, Dr Fernandez recommended transfer to [facility] for closure of shunt. Plan for HD today. 04/01/2025: Patient seen and examined in the ICU. pt is extubated, oxymask in place. alert and oriented, answering questions appropriately and following commands. SBP 150s, WBC 17 from 16, CO 19, BUN 34, Cr 3.6, eGFR 14, Lactic acid 1.1, UOP 650 very clear urine. had 1x bumex yesterday, d/c transfer order for PFO repair, pt states that she has had 2 miscarrages in the past, query antiphospholipid syndrome. CTA chest/ AP Large splenic infarct with thrombus in upper lobe splenic arteries. Plan to hold HD. 04/02/2025: Patient seen and examined in the ICU. pt remains extubated, on NC. alert and oriented x3, SBP 130s -150s WBC 16, K 3.5, BUN 52 from 34, Cr 4.9 from 3.6, eGFR 10, phos 6.6. pending hypercoag labs. UOP 1700cc (urine protein creatnine ratio: 3.4) hold off on renal biopsy today, Plan to HOLD HD. Plan to give IV bumex and albumin. Exam Vital Signs Temp Pulse Resp BP Pulse Ox O2 Del Method O2 Flow Rate 97.3 F 74 22 H 159/82 H 92 L Oxy Mask 4 04/02/25 04:01 04/02/25 08:04 04/02/25 07:00 04/02/25 08:04 04/02/25 07:00 04/01/25 12:00 04/02/25 00:00 FiO2 40 03/31/25 09:17 Narrative Exam General: alert and orientedx3 following commands, conversational, answering questions appropriately HEENT: Normocephalic, atraumatic, mucous membranes moist, Heart: Regular rate and rhythm, no murmurs. Lungs: Clear to auscultation . Abdomen: Soft, nondistended, nontender, positive bowel sounds. ?No guarding or rebound tenderness. , hernandez in place with clear dilute urine Neurologic: alert and oriented, Extremities: Noted chronic wound of 5 x 6 cm in the right lower extremity. Noted tissue pressure injuries on the upper lateral right and left thigh. Also noted infected area in the right toe. Peripheral pulses are 2+ There is demarcated ischemia of left foot of 1st and 5th digit. L knee surgical scar. UE bandaged. Objective Labs 04/02/25 04:25 04/02/25 04:25 Labs: Laboratory Results - last 24 hr 04/01/25 04/01/25 04/01/25 04:44 09:01 13:00 WBC RBC Hgb Hct MCV MCH MCHC RDW Std Deviation Plt Count Neut % (Auto) Lymph % (Auto) [place] % (Auto) Eos % (Auto) Baso % (Auto) Neut # (Auto) Lymph # (Auto) [place] # (Auto) Eos # (Auto) Baso # (Auto) Immature Gran # (Auto) Absolute Nucleated RBC Immature Gran % Nucleated RBC % Smear Path Review Sent to Pathologist Sodium Potassium Chloride Carbon Dioxide Anion Gap BUN Creatinine Estim Creat Clear Calc eGFR BUN/Creatinine Ratio Glucose Calculated Osmolality Lactic Acid 1.1 Calcium Corrected Calcium Phosphorus Total Bilirubin AST ALT Alkaline Phosphatase Troponin I Total Protein Albumin Globulin Albumin/Globulin Ratio Beta-Hydroxybutyrate/Acetoacetate 1.6 H Ur Collection Type Urine Color Urine Clarity Urine pH Ur Specific [place] Urine Protein Urine Glucose (UA) Urine Ketones Urine Blood Urine Nitrite Urine Bilirubin Urine Urobilinogen (Auto) Ur Leukocyte Esterase Urine RBC Urine WBC Ur Squamous Epith Cells Urine Bacteria Urine Yeast (Budding) Ur Random Creatinine U Random Total Protein Random Vancomycin 04/01/25 04/01/25 04/02/25 18:49 19:45 04:25 WBC 16.7 H RBC 3.66 L Hgb 10.7 L Hct 32.8 L MCV 90 MCH 29.2 MCHC 32.6 RDW Std Deviation 49.6 H Plt Count 251 D Neut % (Auto) 65 Lymph % (Auto) 12 [place] % (Auto) 6 Eos % (Auto) 1 Baso % (Auto) 0 Neut # (Auto) 10.9 H Lymph # (Auto) 1.9 [place] # (Auto) 1.0 H Eos # (Auto) 0.2 Baso # (Auto) 0.1 Immature Gran # (Auto) 2.63 H Absolute Nucleated RBC 0.04 H Immature Gran % 16 H Nucleated RBC % 0 Smear Path Review Sodium 138 138 Potassium 3.6 3.8 Chloride 100 101 Carbon Dioxide 22.8 22.6 Anion Gap 15 14 BUN 38 H 52 H Creatinine 4.5 H* D 4.9 H* Estim Creat Clear Calc 14.2 L 13.1 L eGFR 11 L* 10 L* BUN/Creatinine Ratio 8 L 11 L Glucose 221 H 144 H D Calculated Osmolality 291 292 Lactic Acid Calcium 8.3 9.3 Corrected Calcium 8.9 9.9 Phosphorus 6.6 H Total Bilirubin 0.3 AST 49 H ALT 70 H Alkaline Phosphatase 118 H Troponin I 0.373 H* Total Protein 5.8 Albumin 3.2 L 3.3 L Globulin 2.5 Albumin/Globulin Ratio 1.3 Beta-Hydroxybutyrate/Acetoacetate Ur Collection Type Catheter Urine Color Lt-Yellow Urine Clarity Turbid A Urine pH 6.5 Ur Specific [place] 1.010 Urine Protein Trace Urine Glucose (UA) Negative Urine Ketones Negative Urine Blood 2+ A Urine Nitrite Negative Urine Bilirubin Negative Urine Urobilinogen (Auto) Negative Ur Leukocyte Esterase Positive Urine RBC 176 H Urine WBC 54 H Ur Squamous Epith Cells 3 Urine Bacteria 1+ A Urine Yeast (Budding) Present A Ur Random Creatinine 20 L U Random Total Protein 68 H Random Vancomycin 18.6 ABG Interpretation ABG results: 03/26/25 03/26/25 03/26/25 11:18 11:44 16:23 ABG pH 7.27 L Cancelled ABG pCO2 40 Cancelled ABG pO2 146 H Cancelled ABG HCO3 18 L Cancelled ABG O2 Saturation 100 H Cancelled ABG Base Excess -8 L Cancelled VBG pH 7.19 L VBG pCO2 48 VBG pO2 37 VBG Base Excess -10 L 03/26/25 03/27/25 03/27/25 18:43 00:17 03:42 ABG pH 7.16 L* D 7.24 L Cancelled ABG pCO2 58 H D 44 D Cancelled ABG pO2 68 L D 80 L Cancelled ABG HCO3 21 19 L Cancelled ABG O2 Saturation 90 L 96 Cancelled ABG Base Excess -9 L -8 L Cancelled VBG pH VBG pCO2 VBG pO2 VBG Base Excess 03/27/25 03/27/25 03/27/25 04:04 07:55 18:48 ABG pH 7.26 L 7.30 L ABG pCO2 43 37 ABG pO2 83 174 H D ABG HCO3 19 L 18 L ABG O2 Saturation 97 101 H ABG Base Excess -7 L -8 L VBG pH 7.21 L 7.31 L VBG pCO2 49 48 VBG pO2 54 52 VBG Base Excess -8 L -2 03/27/25 03/28/25 03/28/25 19:07 04:06 13:37 ABG pH 7.36 7.38 7.41 ABG pCO2 41 45 44 ABG pO2 79 L D 73 L 105 D ABG HCO3 23 27 H 27 H ABG O2 Saturation 97 96 99 H ABG Base Excess -2 1 2 VBG pH VBG pCO2 VBG pO2 VBG Base Excess 03/29/25 03/30/25 03/31/25 04:45 04:50 04:40 ABG pH 7.38 7.42 7.39 ABG pCO2 45 40 41 ABG pO2 72 L D 66 L 63 L ABG HCO3 27 H 26 25 ABG O2 Saturation 98 93 92 ABG Base Excess 1 2 0 VBG pH VBG pCO2 VBG pO2 VBG Base Excess 03/31/25 17:30 ABG pH 7.39 ABG pCO2 36 ABG pO2 80 L ABG HCO3 21 ABG O2 Saturation 96 ABG Base Excess -3 VBG pH VBG pCO2 VBG pO2 VBG Base Excess Quality Measures Quality Measures VTE prophylaxis Assessment & Plan Assessment Current Active Medications: Generic Name Dose Route Start Last Admin Trade Name Freq PRN Reason Stop Dose Admin Acetaminophen 650 mg 04/01/25 09:12 Acetaminophen 325 Mg Tablet PO 04/25/25 18:57 Q4HR PRN Pain Scale 1-3 OR fever >100.4 Albuterol/Ipratropium 3 ml 03/27/25 01:00 04/02/25 06:31 Albuterol/Ipratropium (Duoneb) Rt Jennifer 3 Ml Nebu INH 04/26/25 00:59 3 ml Q6HRRT CRIS Administration Amlodipine Besylate 10 mg 04/02/25 09:00 04/02/25 08:04 Amlodipine Besylate 5 Mg Tablet PO 05/02/25 08:59 10 mg QDAY CRIS Administration Aspirin 81 mg 04/01/25 09:30 04/02/25 08:03 Aspirin Ec 81 Mg Tabec PO 05/01/25 09:29 81 mg QDAY CRIS Administration Atorvastatin Calcium 80 mg 03/26/25 21:00 04/01/25 21:44 Atorvastatin Calcium 20 Mg Tablet PO 04/25/25 20:59 80 mg HS CRIS Administration Atropine Sulfate 1 mg 03/30/25 10:33 Atropine Sulf Inj 0.1 Mg/Ml Syr 10 Ml IV 04/29/25 10:32 X1 PRN Bradycardia < 35 for greater t Carvedilol 6.25 mg 04/01/25 17:30 04/02/25 07:45 Carvedilol 3.125 Mg Tablet PO 05/01/25 17:29 6.25 mg BIDWM CRIS Administration Dextrose 25 ml 03/26/25 20:20 Dextrose 50%-Water Inj 50 Ml Syringe IV 04/25/25 20:19 Q15MIN PRN BG 50-70 responsive npo pt Dextrose 50 ml 03/26/25 20:20 Dextrose 50%-Water Inj 50 Ml Syringe IV 04/25/25 20:19 Q15MIN PRN BG <50 OR BG <70 & pt unresponsive Glucagon 1 mg 03/26/25 20:20 Glucagon Inj 1 Mg Vial IM Q15MIN PRN BG <70, and no IV access Haloperidol Lactate 5 mg 04/01/25 08:21 Haloperidol Lact Inj 5 Mg/Ml Vial IV X1 PRN AGITATION (SEVERE) Heparin Sodium (Porcine) 5,000 unit 03/27/25 14:00 04/02/25 05:42 Heparin Sod Inj 5000 Unit/Ml Vial SC 04/10/25 13:59 5,000 unit Q8HR CRIS Administration Heparin Sodium (Porcine) 2,600 unit 03/28/25 19:33 03/31/25 18:01 Heparin Sod Inj 1000 Unit/Ml Vial 10 Ml INDWELLCAT 04/11/25 19:32 2,600 unit X1 PRN Administration DIALYSIS Hydralazine HCl 25 mg 04/01/25 14:00 04/02/25 05:42 Hydralazine Hcl 25 Mg Tablet PO 05/01/25 13:59 25 mg TID CRIS Administration Norepinephrine/Dextrose 8 mg in 250 mls @ 8.292 mls/hr 03/26/25 19:50 03/31/25 08:00 Levophed In D5w 8mg/250ml IV 04/25/25 19:49 0 mcg/kg/min .Q24H PRN 0 mls/hr PER PROTOCOL Titration Protocol 0.05 MCG/KG/MIN Dexmedetomidine/Sodium Chloride 400 mcg in 100 mls @ 4.423 mls/hr 03/26/25 23:53 04/02/25 08:04 Precedex Ivpb IV 04/25/25 14:17 1 mcg/kg/hr .[id number] PRN 22.113 mls/hr Per PROTOCOL Administration Protocol 0.2 MCG/KG/HR Albumin Human 25 gm in 100 mls @ 100 mls/min 03/29/25 10:36 03/31/25 18:45 Albuminar-25 Ivpb IV Infused PRN PRN Infusion DIALYSIS Ceftriaxone Sodium/Dextrose 1 gm in 50 mls @ 100 mls/hr 04/01/25 09:00 04/02/25 08:04 Rocephin/D5w 1gm Iv Premix IV 04/08/25 08:59 100 mls/hr QDAY CRIS Administration Albumin Human 25 gm in 100 mls @ 100 mls/hr 04/02/25 08:19 Albuminar-25 Ivpb IV 04/02/25 09:18 X1 ONE Insulin Degludec 24 unit 04/01/25 21:00 04/01/25 21:30 Insulin Degludec 5 Unit/0.05 Ml (Per 5 Units) SC 05/01/25 20:59 24 unit HS CRIS Administration Insulin Human Lispro 0 unit 04/02/25 07:30 04/02/25 07:54 Insulin Lispro (Admelog) 1 Unit/0.01 Ml Unit SC 05/02/25 07:29 Not Given ACHS CRIS Protocol Labetalol HCl 10 mg 04/01/25 11:16 Labetalol Inj 5 Mg/Ml Vial 20 Ml IVP 05/01/25 11:29 Q4HR PRN if SBP>140 Mupirocin 0 gm 03/29/25 08:30 04/02/25 05:43 Mupirocin Oint 2% 15 Gm Tube TOP 04/05/25 08:29 1 applicatio TID CRIS Administration Plan Vashti Ross is a 59-year-old F with a PMH of diabetes, hypertension, asthma, substance use disorder (including opiates, probable methamphetamine, and marijuana) on methadone previously, and a chronic right leg wound brought in by ambulance from her home for altered mental status. Patient was intubated due to low GCS and was admitted to the ICU. echo with tricuspid vegitations and EF 40- 45%, pt with extensive PE and extensive non occlusive DVT of LLE, SYLVIE revealed atrial septal aneurysm, likely source of embolic strokes in the setting of DVT. per cards, holding off on anticoagulation due to concern for hemorrhagic conversion of infarct. s/p IVC filter, found to have borderline nephrotic range proteinuria, pending renal biopsy, continue holding hd, plan for IV bumex and lasix #KINJAL vs. KINJAL on CKD vs. CKD Stage IV #likely 2/2 multifactorial etiologies including intravascular depletion, diabetic nephropathy, blood pressure derangements, glomerular diseases, sepsis- induced ATN, rhabdomyolysis, cardiorenal syndrome, crystalline nephropathy associated with oxalate, or atheroembolic disease #borderline nephrotic range proteinuria #Rhabdomyolysis Admission creatinine 2.8 (baseline: unknown), eGFR 19 Other notable labs include: blood glucose 550, total CK 9752, troponin 0.427, UDS(+) for amphetamines/methamphetamines on 03/29 BUN 18 from 12, Cr 1.8 from 1.3 on 03/30 BUN 24 from 18, Cr 2.4 from 1.8 on 03/31 BUN 32 from 24, Cr 3.1 from 2.4 on 04/01 BUN 34 from 32, Cr 3.6 from 3.1, 650 UOP clear and dilute, UrProt:Cr: 3.4. on 04/02 BUN 54 from 38, Cr 4.9 from 4.5, UOP 1770 clear and dilute HD: 03/28 CRRT, HD 03/29, 03/30, 03/31 Treatment Plan - HOLD HD today - hold getting CT guided renal biopsy, to assess proteinuria - IV bumex - IV albumin -Monitor renal panel -Avoid nephrotoxic agents (aminoglycosides, NSAIDs, radiographic contrast) -Adjust medication dosing based on patient's impaired renal function -Hold any KRISSY/ARB/diuretics #Other medical problems #CVA #?subarachnoid hemorrhage #Acute encephalopathy #NSTEMI, Type 1 vs Type 2 #query APS (hx of miscarriages) #Multiple PE - CTA Positive for multiple right lower lobe pulmonary artery and left upper lobe pulmonary artery emboli #Extensive nonocclusive DVT LLE -s/p IVC filter #CHF - echo with EF 40 -45% #Endocarditis -TTE with tricuspid vegitations #Atrial aneurysm - SYLVIE with Atrial septal aneurysm present and bubble study positive for PFO especially with increased right atrial pressure. #Large splenic infarct with thrombus in upper lobe splenic arteries #Acute hypoxic respiratory failure #Respiratory acidosis #Community-acquired pneumonia #Transaminitis + hyperbilirubinemia #HAGMA #T2DM #Leukocytosis uptrending #septic shock #Left toes gangreen vs Atheroembolism of left lower extremity toes -Continue management per primary care team (ICU) Plan discussed with nephrology attending Dr. Nathalie Vallejo MD Internal Medicine PGY-1 Attending Provider Attestation/Addendum Patient seen and examined with resident physician Dr. Vallejo. Note reviewed, agree with findings and recommendations. Patient currently seen in ICU. Currently on pressors. Significant edema noted. Patient received 2 days of CRRT. On minimal dose of pressors. Decided to proceed with conventional dialysis. Patient so far received 3 dialysis treatments. Started to make urine. 1 dose of Bumex was given yesterday. Will hold dialysis today. Spoke to Dr. Grady-probably patient has hypercoagulable // thrombotic disorder. Patient has both arterial infarcts, venous thrombosis CT brain yesterday showed questionable subarachnoid hemorrhage. With KINJAL-repeat urinalysis to rule out hematuria/proteinuria. Patient stated she had 2 abortions in the past. Not sure on history. Plan of care discussed with the ICU nurse. Spoke to ICU team, Dr. Grady. Critical care time spent more than 40 minutes regarding plan of care and disease management. Patient started to make urine. Suspect ischemic ATN. Hold off on kidney biopsy. hold off on dialysis today.. Patient more alert and awake.
[2025-04-02 10:22] LABS: ANA Screen, IFA POSITIVE (NEGATIVE); ANA Titer 1:40 titer
[2025-04-02 11:14] LABS: Misc Send Out* See Sep Rpt
--- NOTE | 2025-04-02 11:36 | ESPR_ITS ---
Documentation for date of: 04/02/25 Subjective Subjective Interval history: 03/30/2025: Patient is seen and examined at bedside in the ICU. Noted no acute overnight events. Patient is still anuric. Vitals are stable and patient is coming down on vasopressor needs and stopped in the morning. Still on sedation, propofol, fentanyl and Precedex. Noted to have episodes of bradycardia when patient is moved around. Labs done this morning showed WBC 11.4, hemoglobin 10.8, platelets 137. BUN 25, creatinine 2.4, glucose 203, AST and ALT are continuously downtrending. Patient appears to be responding when weaned off sedation but is not able to follow the commands. Received HD today. SYLVIE is done by Dr. Fernandez and noted to have atrial septal aneurysm, PFO which is likely cause of multiple embolic stroke. Repeat head CT done this morning showed new infarcts and hemorrhagic transformation. Patient could not be anticoagulated in view of hemorrhagic transformation. Patient was pending IVC filter placement today but could not be done as Dr. Orona is not available. Trying to transfer the patient out as patient needs PFO closure for further prevention of strokes. 03/31/2025: No acute overnight events. Overnight, Dr. Olivarez talked to [facility] for transfer in view of PFO closure, but cardiothoracic surgeon from [place] reported that patient is unlikely to have embolic strokes from a small PFO and recommended further workup to look for other causes of embolic strokes. Patient is still anuric. Vitals are stable and patient is off the vasopressors. All the sedation was turned off and patient was started on SBT which she passed when and later got extubated to oxygen. Labs done today showed leukocytosis 16.9, BUN 32, creatinine 3.1, AST 76, ALT 70, CK 1187. Ordered CT angio chest to look for any abnormalities in the aorta that could be causing the embolus and it did not reveal anything significant but abdomen/pelvis imaging showed splenic infarct, noted thrombus in the left upper splenic arteries. Neurologist, Dr. Oliver recommended to repeat head CT to look for any further hemorrhage before starting anticoagulation. Head CT will be done tomorrow as patient got contrast today and the radiologist recommended that contrast could be still present in the body resulting in the false results. Consulted heme-onc specialist, Dr. Krishna. Hypercoagulable workup was sent. Received HD after CT angio was done 04/01/2025: Overnight, patient appears to be a little bit agitated for which patient was started on Precedex drip and noted to be singing all night. Otherwise patient is doing well and noted to have improvement in her speech and mental status overnight. Noted to have 670 mL of urine output in the last 24 hours. Vitals are stable and patient is off vasopressors and noted to be having elevated blood pressures this morning for which patient was started on carvedilol and amlodipine. Labs done today showed mildly elevated WBC likely reactive in the setting of contrast that patient received yesterday. CBC showed high anion gap metabolic acidosis likely due to mild uremia and lactate is 1.1. Hypercoagulable workup was sent as patient noted to have both arterial and venous thrombi, still pending results. Will continue aspirin for now. Repeat head CT was done to rule out any hemorrhage to start patient on coagulation, results are still pending. Will follow-up with Dr Oliver further decision on starting anticoagulation. Referral to speech therapy and physical therapy was done. [employer], Dr. Zelaya is following the patient and recommended no HD for today as patient's urine output is improving. Will do CT-guided renal biopsy to rule out autoimmune diseases. Stopped transfer process for now. Anticipating downgrade in the next 24 hours. 04/02/2025: No acute overnight events. Patient is off vasopressors and is alert, awake and oriented. On physical examination, has difficulty in raising the objects but noted no weakness in the extremities. Maintaining adequate amount of urine output. Vitals are stable. Labs done this morning showed mildly elevated creatinine. Still although hypercoagulable workup is pending. Repeat CT head was done today to monitor progression of hemorrhage but appears to be stable. As patient vitals are stable and does not require any ICU level of care, will downgrade to floors for further management. Recommended to follow-up on hypercoagulable workup and start on appropriate treatment as needed Exam Vital Signs Temp Pulse Resp BP Pulse Ox O2 Del Method O2 Flow Rate 97.3 F 74 22 H 159/82 H 92 L Oxy Mask 4 04/02/25 04:01 04/02/25 08:04 04/02/25 07:00 04/02/25 08:04 04/02/25 07:00 04/01/25 12:00 04/02/25 00:00 FiO2 40 03/31/25 09:17 Narrative Exam General: Awake. Oriented HEENT: Normocephalic, atraumatic, mucous membranes moist. Heart: Regular rate and rhythm, no murmurs. Lungs: Clear to auscultation with no wheezing or crackles. on oxygen through oxymask, 2 litres Abdomen: Soft, nondistended, nontender, positive bowel sounds. ?No guarding or rebound tenderness. Neurologic: Alert and oriented x3, noted difficulty in tracing objects, and patient able to move all 4 extremities. Extremities: Bilateral pitting 2+ pedal edema noted in lower extremities, noted necrosis and distal part of left great toe and fifth toe. Noted large chronic ulcer on the right lower extremity Skin: Noted livedo reticularis in the bilateral lower extremities. Objective Labs 04/03/25 05:28 04/03/25 20:58 Labs: Laboratory Results - last 24 hr 03/28/25 04/01/25 04/01/25 15:25 13:00 18:49 WBC RBC Hgb Hct MCV MCH MCHC RDW Std Deviation Plt Count Neut % (Auto) Lymph % (Auto) Fannin % (Auto) Eos % (Auto) Baso % (Auto) Neut # (Auto) Lymph # (Auto) Fannin # (Auto) Eos # (Auto) Baso # (Auto) Immature Gran # (Auto) Absolute Nucleated RBC Immature Gran % Nucleated RBC % Sodium 138 Potassium 3.6 Chloride 100 Carbon Dioxide 22.8 Anion Gap 15 BUN 38 H Creatinine 4.5 H* D Estim Creat Clear Calc 14.2 L eGFR 11 L* BUN/Creatinine Ratio 8 L Glucose 221 H Calculated Osmolality 291 Calcium 8.3 Corrected Calcium 8.9 Phosphorus 6.6 H Total Bilirubin AST ALT Alkaline Phosphatase Troponin I Total Protein Albumin 3.2 L Globulin Albumin/Globulin Ratio Beta-Hydroxybutyrate/Acetoacetate 1.6 H Ur Collection Type Urine Color Urine Clarity Urine pH Ur Specific Sheldon Urine Protein Urine Glucose (UA) Urine Ketones Urine Blood Urine Nitrite Urine Bilirubin Urine Urobilinogen (Auto) Ur Leukocyte Esterase Urine RBC Urine WBC Ur Squamous Epith Cells Urine Bacteria Urine Yeast (Budding) Ur Random Creatinine U Random Total Protein Random Vancomycin EFFIE Screen POSITIVE A EFFIE Titer 1:40 H EFFIE Titer 2 1:40 H EFFIE Titer 3 TNP EFFIE Pattern EFFIE Pattern 2 EFFIE Pattern 3 TNP 04/01/25 04/02/25 19:45 04:25 WBC 16.7 H RBC 3.66 L Hgb 10.7 L Hct 32.8 L MCV 90 MCH 29.2 MCHC 32.6 RDW Std Deviation 49.6 H Plt Count 251 D Neut % (Auto) 65 Lymph % (Auto) 12 Fannin % (Auto) 6 Eos % (Auto) 1 Baso % (Auto) 0 Neut # (Auto) 10.9 H Lymph # (Auto) 1.9 Fannin # (Auto) 1.0 H Eos # (Auto) 0.2 Baso # (Auto) 0.1 Immature Gran # (Auto) 2.63 H Absolute Nucleated RBC 0.04 H Immature Gran % 16 H Nucleated RBC % 0 Sodium 138 Potassium 3.8 Chloride 101 Carbon Dioxide 22.6 Anion Gap 14 BUN 52 H Creatinine 4.9 H* Estim Creat Clear Calc 13.1 L eGFR 10 L* BUN/Creatinine Ratio 11 L Glucose 144 H D Calculated Osmolality 292 Calcium 9.3 Corrected Calcium 9.9 Phosphorus Total Bilirubin 0.3 AST 49 H ALT 70 H Alkaline Phosphatase 118 H Troponin I 0.373 H* Total Protein 5.8 Albumin 3.3 L Globulin 2.5 Albumin/Globulin Ratio 1.3 Beta-Hydroxybutyrate/Acetoacetate Ur Collection Type Catheter Urine Color Lt-Yellow Urine Clarity Turbid A Urine pH 6.5 Ur Specific Sheldon 1.010 Urine Protein Trace Urine Glucose (UA) Negative Urine Ketones Negative Urine Blood 2+ A Urine Nitrite Negative Urine Bilirubin Negative Urine Urobilinogen (Auto) Negative Ur Leukocyte Esterase Positive Urine RBC 176 H Urine WBC 54 H Ur Squamous Epith Cells 3 Urine Bacteria 1+ A Urine Yeast (Budding) Present A Ur Random Creatinine 20 L U Random Total Protein 68 H Random Vancomycin 18.6 EFFIE Screen EFFIE Titer EFFIE Titer 2 EFFIE Titer 3 EFFIE Pattern EFFIE Pattern 2 EFFIE Pattern 3 ABG Interpretation ABG results: 03/26/25 03/26/25 03/26/25 11:18 11:44 16:23 ABG pH 7.27 L Cancelled ABG pCO2 40 Cancelled ABG pO2 146 H Cancelled ABG HCO3 18 L Cancelled ABG O2 Saturation 100 H Cancelled ABG Base Excess -8 L Cancelled VBG pH 7.19 L VBG pCO2 48 VBG pO2 37 VBG Base Excess -10 L 03/26/25 03/27/25 03/27/25 18:43 00:17 03:42 ABG pH 7.16 L* D 7.24 L Cancelled ABG pCO2 58 H D 44 D Cancelled ABG pO2 68 L D 80 L Cancelled ABG HCO3 21 19 L Cancelled ABG O2 Saturation 90 L 96 Cancelled ABG Base Excess -9 L -8 L Cancelled VBG pH VBG pCO2 VBG pO2 VBG Base Excess 03/27/25 03/27/25 03/27/25 04:04 07:55 18:48 ABG pH 7.26 L 7.30 L ABG pCO2 43 37 ABG pO2 83 174 H D ABG HCO3 19 L 18 L ABG O2 Saturation 97 101 H ABG Base Excess -7 L -8 L VBG pH 7.21 L 7.31 L VBG pCO2 49 48 VBG pO2 54 52 VBG Base Excess -8 L -2 03/27/25 03/28/25 03/28/25 19:07 04:06 13:37 ABG pH 7.36 7.38 7.41 ABG pCO2 41 45 44 ABG pO2 79 L D 73 L 105 D ABG HCO3 23 27 H 27 H ABG O2 Saturation 97 96 99 H ABG Base Excess -2 1 2 VBG pH VBG pCO2 VBG pO2 VBG Base Excess 03/29/25 03/30/25 03/31/25 04:45 04:50 04:40 ABG pH 7.38 7.42 7.39 ABG pCO2 45 40 41 ABG pO2 72 L D 66 L 63 L ABG HCO3 27 H 26 25 ABG O2 Saturation 98 93 92 ABG Base Excess 1 2 0 VBG pH VBG pCO2 VBG pO2 VBG Base Excess 03/31/25 17:30 ABG pH 7.39 ABG pCO2 36 ABG pO2 80 L ABG HCO3 21 ABG O2 Saturation 96 ABG Base Excess -3 VBG pH VBG pCO2 VBG pO2 VBG Base Excess Quality Measures Quality Measures VTE prophylaxis Assessment & Plan Assessment Current Active Medications: Generic Name Dose Route Start Last Admin Trade Name Freq PRN Reason Stop Dose Admin Acetaminophen 650 mg 04/01/25 09:12 Acetaminophen 325 Mg Tablet PO 04/25/25 18:57 Q4HR PRN Pain Scale 1-3 OR fever >100.4 Albuterol/Ipratropium 3 ml 03/27/25 01:00 04/02/25 06:31 Albuterol/Ipratropium (Duoneb) Rt Jennifer 3 Ml Nebu INH 04/26/25 00:59 3 ml Q6HRRT CRIS Administration Amlodipine Besylate 10 mg 04/02/25 09:00 04/02/25 08:04 Amlodipine Besylate 5 Mg Tablet PO 05/02/25 08:59 10 mg QDAY CRIS Administration Aspirin 81 mg 04/01/25 09:30 04/02/25 08:03 Aspirin Ec 81 Mg Tabec PO 05/01/25 09:29 81 mg QDAY CRIS Administration Atorvastatin Calcium 80 mg 03/26/25 21:00 04/01/25 21:44 Atorvastatin Calcium 20 Mg Tablet PO 04/25/25 20:59 80 mg HS CRIS Administration Carvedilol 6.25 mg 04/01/25 17:30 04/02/25 07:45 Carvedilol 3.125 Mg Tablet PO 05/01/25 17:29 6.25 mg BIDWM CRIS Administration Dextrose 25 ml 03/26/25 20:20 Dextrose 50%-Water Inj 50 Ml Syringe IV 04/25/25 20:19 Q15MIN PRN BG 50-70 responsive npo pt Dextrose 50 ml 03/26/25 20:20 Dextrose 50%-Water Inj 50 Ml Syringe IV 04/25/25 20:19 Q15MIN PRN BG <50 OR BG <70 & pt unresponsive Glucagon 1 mg 03/26/25 20:20 Glucagon Inj 1 Mg Vial IM Q15MIN PRN BG <70, and no IV access Heparin Sodium (Porcine) 5,000 unit 03/27/25 14:00 04/02/25 05:42 Heparin Sod Inj 5000 Unit/Ml Vial SC 04/10/25 13:59 5,000 unit Q8HR CRIS Administration Heparin Sodium (Porcine) 2,600 unit 03/28/25 19:33 03/31/25 18:01 Heparin Sod Inj 1000 Unit/Ml Vial 10 Ml INDWELLCAT 04/11/25 19:32 2,600 unit X1 PRN Administration DIALYSIS Hydralazine HCl 25 mg 04/01/25 14:00 04/02/25 05:42 Hydralazine Hcl 25 Mg Tablet PO 05/01/25 13:59 25 mg TID CRIS Administration Albumin Human 25 gm in 100 mls @ 100 mls/min 03/29/25 10:36 03/31/25 18:45 Albuminar-25 Ivpb IV Infused PRN PRN Infusion DIALYSIS Ceftriaxone Sodium/Dextrose 1 gm in 50 mls @ 100 mls/hr 04/01/25 09:00 04/02/25 08:04 Rocephin/D5w 1gm Iv Premix IV 04/08/25 08:59 100 mls/hr QDAY CRIS Administration Insulin Degludec 24 unit 04/01/25 21:00 04/01/25 21:30 Insulin Degludec 5 Unit/0.05 Ml (Per 5 Units) SC 05/01/25 20:59 24 unit HS CRIS Administration Insulin Human Lispro 0 unit 04/02/25 07:30 04/02/25 07:54 Insulin Lispro (Admelog) 1 Unit/0.01 Ml Unit SC 05/02/25 07:29 Not Given ACHS CRIS Protocol Labetalol HCl 10 mg 04/01/25 11:16 Labetalol Inj 5 Mg/Ml Vial 20 Ml IVP 05/01/25 11:29 Q4HR PRN if SBP>140 Mupirocin 0 gm 03/29/25 08:30 04/02/25 05:43 Mupirocin Oint 2% 15 Gm Tube TOP 04/05/25 08:29 1 applicatio TID CRIS Administration Plan A 59-year-old female with a past medical history of diabetes, hypertension, asthma, and a chronic right leg wound was brought to the Emergency Department after being found unresponsive. Patient found to have embolic type stroke. Patient intubated and admitted to ICU for low GCS. 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 - Likely due to multiple strokes Plan - Will try to reorient patient - Will try to wean her off the Precedex drip - Repeat Head CT on 04/02/2025 did show stable hemorrhage # CVA - bilateral embolic stroke - Patient came in with altered sensorium and head CT at the time showed multiple bilateral infarcts, likely embolic - Patient has extensive DVT in the left lower extremity also noted to have pulmonary embolism, patient might be having embolism through PFO and reaching the systemic circulation. Dx: - Echocardiogram - Normal size left bentricle with mild apical and global hypokinesis LVEF 40-45%. Evidence of Tricuspid valve vegetation suggestive of endocarditis The RV is normal in size. The right ventricular systolic function is mildly decreased. Aortic valve sclerosis thickened wih mild aortic regurgitation. Mitral valve thickening with mild mitral regurgitation. - SYLVIE was done on 03/30/2025 that confirmed no vegetations noted to have atrial aneurysm bulging into left atrium, bubble study done showed PFO -Venous Doppler of left lower extremity extensive chronic nonocclusive DVT involving the common femoral left superficial femoral, popliteal, peroneal, posterior tibial and greater saphenous veins. Tubular structures in the right popliteal fossa 6.0 cm in left popliteal fossa 4.6 cm which may represent popliteal cysts - TSH is 2.43, A1c - 13.6, B12 529 Rx: - Will continue atorvastatin and Aspirin for now - Cannot start on heparin drip as patient noted to have hemorrhagic infarcts on repeat CT head done on 03/30/2025, Repeat Head CT on 04/01/2025. Pending read - IVC filter placement is done on 03/31/2025 to prevent further embolic strokes through PFO from DVT - No need of urgent PFO closure as per Dr. Nayak. - Referral speech therapy and physical therapy was done, will appreciate recommendations - Hypercoaugulable workup ordered in view of suspected Antiphospholipid syndrome due to DVT and other infarcts CVS: # Shock, resolved DDx: Combined cardiogenic and septic shock - At the time of admission, patient was noted to have bilateral lower extremity edema and bilateral diffuse inspiratory crackles -possible heart failure in the setting of methamphetamine abuse, diabetes, hypertension - Also noted to have temperature of 101.8 ?F at the time of admission, likely due to some ongoing infection. Fits into 2/3 qsofa criteria. Noted to have GCS less than 15 and respiratory rate 35/min. - Suspecting sepsis worsening the underlying heart failure resulting in suspected possible combined septic and cardiogenic shock. - Patient Lasix 60 mg and 2 L bolus in the ED Dx: - Labs at the time of admission showed WBC 13.1, procalcitonin 43.23 - Urinalysis showed turbid urine with 2+ proteinuria, 3+ glucosuria, 112 WBC, 4+ bacteria suggestive of UTI - Blood cultures and urine cultures were sent, E.coli in the urine and pansensitive, Blood cultures is negative - Echocardiogram is ordered Rx: - Patient is started on Levophed and weaned off completely as of 03/30/2025 - Initially patient was started on vancomycin and Zosyn [03/27-03/30], discontinued Vanco and Zosyn, started on ceftriaxone 2 g IV once daily [03/30- - Will continue to monitor vitals # Hypertension - Patient noted to have history of hypertension but not using any medications before coming to the hospital - As of 04/01/2025, patient blood pressure was noted to be elevated with systolic blood pressure around 180-190 Plan - Patient was started on amlodipine and carvedilol - Will continue to monitor blood pressures and titrate medications as needed # NSTEMI, likely type II - In the setting of demand ischemia - Troponin at the time of admission is 0.427, peaked at 20.920 and later down trended - EKG did not show any ST-T wave changes Plan - Will continue telemetry monitoring - [employer], Dr. Nayak is consulted and will follow the recommendations # HFrEF, EF 40 to 45% - Unsure whether patient is regular methamphetamine user, as family members is not aware of the use - Patient also have severe uncontrolled diabetes mellitus, which could also contribute to the ischemic heart disease and CHF Plan - Patient should be started on GDMT but in the setting of ongoing acute kidney injury and recovering shock, will hold GDMT for now - Once the patient is hemodynamically stable and off the ventilator, will recommend to do repeat echocardiogram and if still found to have HFrEF, needed to be started on GDMT - Removed fluid through CRRT/HD - 1 dose of Bumex is given on 03/31 and 04/01. # DVT - Patient was noted to have left lower extremity nonocclusive chronic DVT extending up to the left common femoral vein. - Could not place on anticoagulation due to suspected hemorrhages in the head. - IVC filter was placed on 03/31/2025 to prevent further pulmonary embolism and suspected paradoxical emboli. Pulmoary # Pulmonary embolism - Patient was noted to have mismatch between end-tidal CO2 and arterial CO2, also noted to have increased oxygen requirements on the ventilator for which CTA chest was ordered on 03/28/2025 - CTA chest - Positive for multiple right lower pulmonary artery filling defects. Positive for left upper lobe pulmonary artery filling defects. No emboli in the main pulmonary artery segments Pneumonia versus infarction in both lower lung zones - Echocardiogram did not show any RV strain, though patient noted to have elevated troponin with peak level at 20.920, later down trended - EKG did not show any signs suggestive of pulmonary embolism Rx: - Patient cannot be anticoagulated as of now as patient had hemorrhagic infarcts in the brain - IVC filter is by Dr. Murillo on 03/31/2025 - Patient is not a candidate of mechanical thrombectomy as of now and does not seem to be in right heart failure # Acute hypoxic respiratory failure, resolving # Respiratory acidosis, resolved DDx: Sepsis, acute encephalopathy, pulmonary edema, pulmonary embolism, combined - Per patient family, patient does not have any previous history of respiratory problems and is not using any inhalers. Not a smoker Dx: - ABG at the time of admission showed pH 7.16, pCO2 58, pO2 68, FiO2 100% - Repeat ABG done on 03/27/2024 showed pH 7.3, pCO2 37, bicarb 18. - Repeat ABGs done after 03/28/2025 is within normal limits - CTA chest Positive for multiple right lower pulmonary artery filling defects. Positive for left upper lobe pulmonary artery filling defects. No emboli in the main pulmonary artery segments Pneumonia versus infarction in both lower lung zones Rx: - Patient is intubated, sedated and placed on mechanical ventilator on 03/26 and extubated on 03/31 - Though patient had pulmonary embolism, patient oxygen needs is coming down and noted to have only mild pulmonary embolism. - Will continue oxygen as needed for now. # History of asthma - Unclear if patient is using inhalers or if she has recent exacerbations - Currently does not appear to be in any exacerbations GI # Transaminitis, resolving # Hyperbilirubinemia, resolved - At the time of admission patient was found to have bilirubin of 1.6, AST 146, ALT 61 ---> 03/31, AST 76, ALT 74 DDx: Fatty liver versus chronic liver disease versus viral hepatitis versus secondary to ongoing septic shock and possible suspected ischemia Dx: - Tested positive for hepatitis C antibody - Liver ultrasound showed 10 mm gallstone, CBD enlarged 0.6 cm, liver 18.5 cm fatty infiltration Rx: - Will continue to monitor liver functions - Underlying shock - resolved - Patient has to follow-up with operating room coordinator on discharge on outpatient basis for follow-up on hepatitis C, currently does not suspect any active viral hepatitis # Renal # KINJAL DDx: Prerenal versus ATN in the setting of shock versus possible cardiorenal syndrome versus CKD in the setting of diabetes mellitus and hypertension versus embolic versus rhabdomyolysis - Patient does not follow-up any primary care doctor and unsure of her baseline kidney functions Dx: - Patient noted to have decreased urine output and oliguric since the time of admission - Creatinine at the time of admission is 2.8 --> 03/30, 2.4 --> 03/31, 3.1 - Patient is still anuric Rx: - Will continue to monitor renal functions - Will continue to monitor urine output - Will renally dose medication and avoid nephrotoxic medications - [employer], Dr. Zelaya is consulted and patient is started on CRRT through dialysis catheter placement in the right IJV on 03/27 - Received HD on 03/29, 03/30, 03/31 # High anion gap metabolic acidosis # Lactic acidosis, resolved - Likely in the setting of ongoing shock, likely due to sepsis - At the time of admission, anion gap is 19, lactate is 4.7 ---> 04/01, AG 22, Lactate 1.1 - Anion gap improved on day of admission and lactic acidosis is slowly improving after starting CRRT Rx: - Received CRRT on 03/27 and 03/28, HD on 03/29, 03/30, 03/31 - Will continue to monitor lab values # Rhabdomyolysis, resolved - Patient happened to be on the floor lying down for 4 to 5 hours and also tested positive for methamphetamine on urine toxicology - CT head at the time of presentation is 9752 and received 2 L of fluid in the ED, as patient is fluid overloaded cannot give more fluids - CK levels continue to trend down slowly to 1187 Endo # Uncontrolled type 2 diabetes mellitus - Patient is not following any primary care provider and not taking medications properly per patient's family - Blood glucose at the time of admission is 550 for which patient was given 10 units of lispro in the ED - The patient had high anion gap metabolic acidosis, tested negative for beta- hydroxybutyrate and DKA is ruled out Plan - HbA1c sent - 13.6 - Started on insulin lispro sliding scale and degludec 12 units subcutaneous at bedtime, increased to 18 units on 03/30 based on morning blood sugars - Will titrate degludec according to FBS Hematology # Leukocytosis, resolving - WBC at the time of admission is 13.1, likely due to active ongoing sepsis ---> 04/01, 17.2 - likely elevated in the setting of contrast Plan - Will continue to monitor CBC and will treat with antibiotics ID # Severe sepsis - Patient presented 2/3 qSOFA criteria including GCS less than 15 and respiratory rate 35 - Blood culture, urine culture were sent - Urinalysis is suggestive of UTI, likely the source of infection - E.Coli , pansensitive Plan - Stopped Zosyn and vancomycin on 03/30, will continue ceftriaxone 2g IV (03/30 - # UTI - Urinalysis at the time of admission is significant for urinary tract infection - Urine culture showed E. coli which is pansensitive Plan - Will continue ceftriaxone Musculoskeletal # Chronic right leg wound - Likely from uncontrolled diabetes mellitus and venous congestion - On physical examination, noted 5 x 6 cm wound with well-healing granulation tissue Plan - Will refer to wound care - Arterial Doppler was ordered which showed no PAD in bilateral lower extremities Health Maintenance: Diet: Npureed GI prophylaxis: Protonix DVT prophylaxis: Heparin subcut 5000 units every 8 hours Antibiotics: Ceftriaxone CODE STATUS: Full Disposition: ICU Case discussed with my attending Dr. Ravi Anna, PGY2 Attending Provider Attestation/Addendum Patient seen and examined with the above resident, Vj Anna MD. I agree with the findings, assessment, and plan of care as documented except for any differences below. 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 Small PFO possible cause of paradoxical emboli though would not explain other findings. Hypercoaguable workup appropriately being done. Also features of vascuilitis. Will send additional testing for ANCA though history not suggestive of typical GPA/eGPA. 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 At this point, serial head CT shows stable findings with no expansion of small ICH. Patient's neurologic exam is unchanged. Hold off on steroids at this time until serologic markers help to make diagnosis. A punch biopsy was sent already though not from lateral wound on right ordonez. May warrant renal biopsy as well especially if rneal recovery garza snot occur, favor ATN form shock. Wound reportedly was after trauma and delayed healing for months though granulation tissue shows improvement with surrounding scar noted. Vasculitis can be associated with pyoderma gangrenosum and wounds as such. Ultimately to be answered still is role of anticoagulation with significant ICH. reasonable to start VTE prophylaxis but will need to concur with neurology about role of systemic AC. AN IVC filter is in place for now, but still may warrant AC due to arterial embolic phenomenon as well. Complete course of ceftriaxone as UTI and pneumonia possible cause of septic shock which has now resolved. Patient and family updated on plan of care. Can be transferred to medicine zuñiga for ongoing management and monitoring given neurologic stability on exam and by imaging. Total critical care time: I personally spent 45 minutes for review of physiologic parameters, directing plan of care, and coordination of care with other specialists. This is exclusive of time spent teaching housestaff or performing any separate billable procedures. Patient remained at significant risk of further morbidity and mortality warranting close monitoring and care only available in the ICU. Critical care services for pulmonary embolis, intracranial hemorrhage, and acute renal failure.
[2025-04-02] MEDS: BUMETANIDE INJ 0.25 MG/ML VIAL 4 ML 2 MG IVP (11:45)
[2025-04-02] MEDS: ALBUMIN HUMAN 25% IVPB 25 GM/100 ML BTL IV (11:46)
[2025-04-02 11:51] LABS: RA Screen Negative (Negative)
--- NOTE | 2025-04-02 13:14 | XR_ITS ---
Examination: CT brain head without contrast. 2-D sagittal coronal reconstructions Date and time of exam:April 02, 2025 1422 hours, comparison April 01, 2025 INDICATIONS: Multiple areas of subarachnoid hemorrhage on CT brain scan April 01, 2025 CTDI: vol (mGy):52.7 DLP: (mGycm):1071 Technique: Multiple CT axial sections of the brain have been obtained, 5 mm slice thickness. Contrast has not been administered. 2-D sagittal, coronal reconstructions have been obtained Low dose protocols were performed. One or more of the following dose reduction techniques were used; automated exposure control, adjustment of the mA and/or KV according to patient size, use of iterative reconstruction technique. Findings: Again noted areas of subarachnoid hemorrhage right frontal convexity, axial image 13, left parietal convexity axial image 13 and more caudad in the right frontal convexity axial image 22 No additional areas of hemorrhage density The ventricles are not enlarged No mass effect or midline shift IMPRESSION: Stable multiple areas of subarachnoid hemorrhage compared to April 01, 2025
--- NOTE | 2025-04-02 14:27 | ESPR_ITS ---
Documentation for date of: 04/02/25 Subjective Subjective Interval history: Patient is a 59 year old female with a past medical history of hypertension, diabetes mellitus, asthma, chronic right leg wound who was admitted on 03/26/2025 stroke, with multiple embolic type foci who required ICU for mechanical ventilation as patient unable to protect airway. 03/30/2025: Patient is currently schedule for SYLVIE at 2 PM. Weaned off sedation and able to follow commands. Currently holding off heparin drip until SYLVIE, edema and possible hemorrhage noted on repeat Ct. 03/31/2025: Overnight, ICU team spoke with cardiothoracic surgeon, given small PFO currently hodling off transfer until they speak with neurology. Given concern for cerebral edema and possible hemorrhage no anticoagulation. Primary team ordered IVC filter given new emoblic like strokes, placement completed. Precedex resumed, propofolol, and fentany. Chest/Abdomen/Pelvis CTA obtained noted penumonia versus infarct in the right upper lobes and both bases. Large splenic infract with thrombus in upper lobe splenic arteries (consider follow up, US) 04/01/2025: Patient is currently off sedation and off mechanical ventilation, saturnating well on 4 liters oxy mask. Patient is alert and orientated to name, location, and but not time. Patient albe to follow commands but still appears tired from sedation. Patient slow to track. NO dialysis today. Repeat CT (03/31/2025): Interval hemorrhage likely subarachnoid in the right frontal convexity. Interval hemorrhage desnity in the right front sulci. No midline shift. Ventrilces not enlarged. Repeat CT head in the next 24 hours. Asprin & Atorvastatin. 04/02/2025: Patient downgraded this evening to floors team. Pending hypercoagulable labs. NO dialysis scheduled for today. Repeat CT head noted for stable multiple areas of subarachonid hemorrhage. No changes to Aspirin & Atorvastatin. Improved confusion. Concern for loss of vision right eye field. Exam Vital Signs Temp Pulse Resp BP Pulse Ox O2 Del Method O2 Flow Rate 97.3 F 81 20 133/55 H 99 Oxy Mask 2 04/02/25 04:01 04/02/25 12:57 04/02/25 12:57 04/02/25 11:45 04/02/25 12:57 04/01/25 12:00 04/02/25 12:57 FiO2 40 03/31/25 09:17 Narrative Exam General Appearance: Alert & Oriented X2, well-nourished female who is lying in bed in mild distress, left 1st and 2nd digit noted for echomosis. HEENT: Skull symmetrical and atraumatic. Conjunctivae pale pink and moist. Pupils equal, round, reactive to light and accommodation (PERRL). Able to track but delayed. no nystagmus noted. Concern for Right eye vision loss Cardio: Normal Rate and Rhythm with S1 and S2 heart sounds. No murmurs or extra heart sounds auscultated. No bruits on carotid auscultation. No peripheral edema or cyanosis. Lungs: Symmetric with good expansion. Chest and back non-tender. Breath sounds vesicular without crackles, wheezing or rhonchi Abdomen: Non-tender, Non-distended, Normal Reactive Bowel Sounds Neuro: Alert, Yes cooperative, Yes oriented to person, place, and time. Speech not clear as patient is currently sedated. CN grossly intact. Upper motor strength 3/5 and Lower motor strength 2/5. withdrawals to painful stimuli Objective Labs 04/02/25 04:25 04/02/25 04:25 Labs: Laboratory Results - last 24 hr 03/28/25 04/01/25 04/01/25 15:25 18:49 19:45 WBC RBC Hgb Hct MCV MCH MCHC RDW Std Deviation Plt Count Neut % (Auto) Lymph % (Auto) [place] % (Auto) Eos % (Auto) Baso % (Auto) Neut # (Auto) Lymph # (Auto) [place] # (Auto) Eos # (Auto) Baso # (Auto) Immature Gran # (Auto) Absolute Nucleated RBC Immature Gran % Nucleated RBC % Sodium 138 Potassium 3.6 Chloride 100 Carbon Dioxide 22.8 Anion Gap 15 BUN 38 H Creatinine 4.5 H* D Estim Creat Clear Calc 14.2 L eGFR 11 L* BUN/Creatinine Ratio 8 L Glucose 221 H Calculated Osmolality 291 Calcium 8.3 Corrected Calcium 8.9 Phosphorus 6.6 H Total Bilirubin AST ALT Alkaline Phosphatase Troponin I Total Protein Albumin 3.2 L Globulin Albumin/Globulin Ratio Ur Collection Type Catheter Urine Color Lt-Yellow Urine Clarity Turbid A Urine pH 6.5 Ur Specific [place] 1.010 Urine Protein Trace Urine Glucose (UA) Negative Urine Ketones Negative Urine Blood 2+ A Urine Nitrite Negative Urine Bilirubin Negative Urine Urobilinogen (Auto) Negative Ur Leukocyte Esterase Positive Urine RBC 176 H Urine WBC 54 H Ur Squamous Epith Cells 3 Urine Bacteria 1+ A Urine Yeast (Budding) Present A Ur Random Creatinine 20 L U Random Total Protein 68 H Random Vancomycin Rheumatoid Factor EFFIE Screen POSITIVE A EFFIE Titer 1:40 H EFFIE Titer 2 1:40 H EFFIE Titer 3 TNP EFFIE Pattern EFFIE Pattern 2 EFFIE Pattern 3 TNP 04/02/25 04:25 WBC 16.7 H RBC 3.66 L Hgb 10.7 L Hct 32.8 L MCV 90 MCH 29.2 MCHC 32.6 RDW Std Deviation 49.6 H Plt Count 251 D Neut % (Auto) 65 Lymph % (Auto) 12 [place] % (Auto) 6 Eos % (Auto) 1 Baso % (Auto) 0 Neut # (Auto) 10.9 H Lymph # (Auto) 1.9 [place] # (Auto) 1.0 H Eos # (Auto) 0.2 Baso # (Auto) 0.1 Immature Gran # (Auto) 2.63 H Absolute Nucleated RBC 0.04 H Immature Gran % 16 H Nucleated RBC % 0 Sodium 138 Potassium 3.8 Chloride 101 Carbon Dioxide 22.6 Anion Gap 14 BUN 52 H Creatinine 4.9 H* Estim Creat Clear Calc 13.1 L eGFR 10 L* BUN/Creatinine Ratio 11 L Glucose 144 H D Calculated Osmolality 292 Calcium 9.3 Corrected Calcium 9.9 Phosphorus Total Bilirubin 0.3 AST 49 H ALT 70 H Alkaline Phosphatase 118 H Troponin I 0.373 H* Total Protein 5.8 Albumin 3.3 L Globulin 2.5 Albumin/Globulin Ratio 1.3 Ur Collection Type Urine Color Urine Clarity Urine pH Ur Specific [place] Urine Protein Urine Glucose (UA) Urine Ketones Urine Blood Urine Nitrite Urine Bilirubin Urine Urobilinogen (Auto) Ur Leukocyte Esterase Urine RBC Urine WBC Ur Squamous Epith Cells Urine Bacteria Urine Yeast (Budding) Ur Random Creatinine U Random Total Protein Random Vancomycin 18.6 Rheumatoid Factor Negative EFFIE Screen EFFIE Titer EFFIE Titer 2 EFFIE Titer 3 EFFIE Pattern EFFIE Pattern 2 EFFIE Pattern 3 ABG Interpretation ABG results: 03/26/25 03/26/25 03/26/25 11:18 11:44 16:23 ABG pH 7.27 L Cancelled ABG pCO2 40 Cancelled ABG pO2 146 H Cancelled ABG HCO3 18 L Cancelled ABG O2 Saturation 100 H Cancelled ABG Base Excess -8 L Cancelled VBG pH 7.19 L VBG pCO2 48 VBG pO2 37 VBG Base Excess -10 L 03/26/25 03/27/25 03/27/25 18:43 00:17 03:42 ABG pH 7.16 L* D 7.24 L Cancelled ABG pCO2 58 H D 44 D Cancelled ABG pO2 68 L D 80 L Cancelled ABG HCO3 21 19 L Cancelled ABG O2 Saturation 90 L 96 Cancelled ABG Base Excess -9 L -8 L Cancelled VBG pH VBG pCO2 VBG pO2 VBG Base Excess 03/27/25 03/27/25 03/27/25 04:04 07:55 18:48 ABG pH 7.26 L 7.30 L ABG pCO2 43 37 ABG pO2 83 174 H D ABG HCO3 19 L 18 L ABG O2 Saturation 97 101 H ABG Base Excess -7 L -8 L VBG pH 7.21 L 7.31 L VBG pCO2 49 48 VBG pO2 54 52 VBG Base Excess -8 L -2 03/27/25 03/28/25 03/28/25 19:07 04:06 13:37 ABG pH 7.36 7.38 7.41 ABG pCO2 41 45 44 ABG pO2 79 L D 73 L 105 D ABG HCO3 23 27 H 27 H ABG O2 Saturation 97 96 99 H ABG Base Excess -2 1 2 VBG pH VBG pCO2 VBG pO2 VBG Base Excess 03/29/25 03/30/25 03/31/25 04:45 04:50 04:40 ABG pH 7.38 7.42 7.39 ABG pCO2 45 40 41 ABG pO2 72 L D 66 L 63 L ABG HCO3 27 H 26 25 ABG O2 Saturation 98 93 92 ABG Base Excess 1 2 0 VBG pH VBG pCO2 VBG pO2 VBG Base Excess 03/31/25 17:30 ABG pH 7.39 ABG pCO2 36 ABG pO2 80 L ABG HCO3 21 ABG O2 Saturation 96 ABG Base Excess -3 VBG pH VBG pCO2 VBG pO2 VBG Base Excess Quality Measures Quality Measures VTE prophylaxis Assessment & Plan Assessment Current Active Medications: Generic Name Dose Route Start Last Admin Trade Name Freq PRN Reason Stop Dose Admin Acetaminophen 650 mg 04/01/25 09:12 Acetaminophen 325 Mg Tablet PO 04/25/25 18:57 Q4HR PRN Pain Scale 1-3 OR fever >100.4 Albuterol/Ipratropium 3 ml 03/27/25 01:00 04/02/25 12:57 Albuterol/Ipratropium (Duoneb) Rt Jennifer 3 Ml Nebu INH 04/26/25 00:59 3 ml Q6HRRT CRIS Administration Amlodipine Besylate 10 mg 04/02/25 09:00 04/02/25 08:04 Amlodipine Besylate 5 Mg Tablet PO 05/02/25 08:59 10 mg QDAY CRIS Administration Aspirin 81 mg 04/01/25 09:30 04/02/25 08:03 Aspirin Ec 81 Mg Tabec PO 05/01/25 09:29 81 mg QDAY CRIS Administration Atorvastatin Calcium 80 mg 03/26/25 21:00 04/01/25 21:44 Atorvastatin Calcium 20 Mg Tablet PO 04/25/25 20:59 80 mg HS CRIS Administration Carvedilol 6.25 mg 04/01/25 17:30 04/02/25 07:45 Carvedilol 3.125 Mg Tablet PO 05/01/25 17:29 6.25 mg BIDWM CRIS Administration Dextrose 25 ml 03/26/25 20:20 Dextrose 50%-Water Inj 50 Ml Syringe IV 04/25/25 20:19 Q15MIN PRN BG 50-70 responsive npo pt Dextrose 50 ml 03/26/25 20:20 Dextrose 50%-Water Inj 50 Ml Syringe IV 04/25/25 20:19 Q15MIN PRN BG <50 OR BG <70 & pt unresponsive Glucagon 1 mg 03/26/25 20:20 Glucagon Inj 1 Mg Vial IM Q15MIN PRN BG <70, and no IV access Heparin Sodium (Porcine) 5,000 unit 03/27/25 14:00 04/02/25 05:42 Heparin Sod Inj 5000 Unit/Ml Vial SC 04/10/25 13:59 5,000 unit Q8HR CRIS Administration Heparin Sodium (Porcine) 2,600 unit 03/28/25 19:33 03/31/25 18:01 Heparin Sod Inj 1000 Unit/Ml Vial 10 Ml INDWELLCAT 04/11/25 19:32 2,600 unit X1 PRN Administration DIALYSIS Hydralazine HCl 25 mg 04/01/25 14:00 04/02/25 05:42 Hydralazine Hcl 25 Mg Tablet PO 05/01/25 13:59 25 mg TID CRIS Administration Albumin Human 25 gm in 100 mls @ 100 mls/min 03/29/25 10:36 03/31/25 18:45 Albuminar-25 Ivpb IV Infused PRN PRN Infusion DIALYSIS Ceftriaxone Sodium/Dextrose 1 gm in 50 mls @ 100 mls/hr 04/01/25 09:00 04/02/25 08:04 Rocephin/D5w 1gm Iv Premix IV 04/08/25 08:59 100 mls/hr QDAY CRIS Administration Insulin Degludec 24 unit 04/01/25 21:00 04/01/25 21:30 Insulin Degludec 5 Unit/0.05 Ml (Per 5 Units) SC 05/01/25 20:59 24 unit HS CRIS Administration Insulin Human Lispro 0 unit 04/02/25 07:30 04/02/25 07:54 Insulin Lispro (Admelog) 1 Unit/0.01 Ml Unit SC 05/02/25 07:29 Not Given ACHS [facility] Protocol Labetalol HCl 10 mg 04/01/25 11:16 Labetalol Inj 5 Mg/Ml Vial 20 Ml IVP 05/01/25 11:29 Q4HR PRN if SBP>140 Mupirocin 0 gm 03/29/25 08:30 04/02/25 05:43 Mupirocin Oint 2% 15 Gm Tube TOP 04/05/25 08:29 1 applicatio TID CRIS Administration Plan Patient is a 59 year old female with a past medical history of hypertension, diabetes mellitus, asthma, chronic right leg wound who was admitted on 03/26/2025 stroke, with multiple embolic type foci who required ICU for mechanical ventilation as patient unable to protect airway. #Acute Encephaloapthy, likely multifactorial given substance use disorder and CVA #Acute Multiple mbolic type foci occipital lobes, bilateral frontal and bilateral parietal lobe Currently holding off anticoagulation given concern for CT images noted to hemorrhagic areas. Given PE and small PFO, PE could be the cause of embolism vs endocardititis but less likely as negative SYLVIE for vegation. Although leukocytosis noted, less likely secondary to endocarditis in origin and more likely secondary to ischemia vs less likely increased coagulopathy as no previous history of DVTs. Coagulopathy panel ordered by primary team. IVC filtered ordered by primary team. Patient would benefit from [facility] center per cardiology, likely not a candidate from thrombectomy as patient is unstable. CT Head: Interval multiple areas of subarachnoid hemorrhage as above Chest/Abdomen/Pelvis CTA obtained noted penumonia versus infarct in the right upper lobes and both bases. Large splenic infract with thrombus in upper lobe splenic arteries (consider follow up, US to confirm splenic thrombus) CT head Repeat (03/30/2025): Additional focal areas of edema most consistent w/ hemorrhagic infarcts in the left pareital lobe and left occipital lobe MRI: Multiple Embolic type Foci Utox positive: meth and THC Plan: -continue Atorvastatin 80 mg HS & Aspirin 81 mg once daily -Pending hypercoagulatin panel -Aspiration precautions. #Shock, improved. #Luekocytosis #Sepsis, concern for bacteremia, concern for endocarditis #CHF HFrEF 40-45% (03/26/2025) #Tricuspid valve vegetation, endocarditis #Acute renal failure #Rhabdomyolysis #Acute Respiraotry fialure, mechanical ventilation #PE #Hepatitis C #Hyperglycemia, uncontroleld #Diabetes Mellitus #Substance Use Disorder - The patient's plan was discussed with attending Dr. Benito Sy MD PGY2 Internal Medicine Attending Provider Attestation/Addendum I personally have seen and examined the patient at the bedside and agree with resident's findings, assessment and plan of care. Impression: Multiple embolic phenomena: Etiology unknown, likely vasculitis from systemic causes, workup is pending Plan/recommendations As the CT head continue to show stable subarachnoid hemorrhage, hold off on anticoagulant, follow-up with the hypercoagulopathy workup Continue with aspirin and statin and physical therapy evaluation
--- NOTE | 2025-04-02 16:29 | ESPR_ITS ---
<Statement entered by Mele Rivera MD - 04/02/25 17:45> Senior Resident Attestation: I supervised/discussed management plan with internet marketing consultant physician Dr. Rand, and was involved in the care of this patient. I personally saw and examined the patient and discussed the assessment and plan with the entire medicine team, including my attending. I agree with the assessment and plan as documented. Patient was downgraded from ICU today. Her neurological status is improving. Pending workup for antiphospholipid syndrome. Neurology and cardiology are following. Patient's care was discussed with attending physician, Dr. Graham. Mele Rivera MD PGY-3. Documentation for date of: 04/02/25 Subjective Subjective Interval history: 59F with PMH of DM, HTN, asthma, drug use disorder, and a chronic right leg wound was brought to the ED after being found unresponsive at home where she was found to have acute encephalopathy with low GCS requiring intubation and ICU admission for ventilator support, pressor support for likely septic shock, and CRRT.. Patient found to have multi embolic disease involving multiple systems including brain and left distal extremity, acute and failure with the cause likely renal emboli. Patient is currently undergoing hypercoagulable workup as source of emboli remains unclear. 04/02/25: At 1600 sign out was received from the ICU team for down grade to the medicine floor. Patient was examined and evaluated at bedside. Patient did not have any complaints. Per ICU team, no acute overnight events. Neurologically, she is making good progress overall, off sedation, continued on OxiMax. She is starting to make some urine, vitals are stable, off pressors. UOP 1700cc. Exam Vital Signs Temp Pulse Resp BP Pulse Ox O2 Del Method O2 Flow Rate 97.3 F 81 20 133/55 H 99 Oxy Mask 2 04/02/25 04:01 04/02/25 12:57 04/02/25 12:57 04/02/25 11:45 04/02/25 12:57 04/01/25 12:00 04/02/25 12:57 FiO2 40 03/31/25 09:17 Narrative Exam General: Off sedation, appears comfortable. Poor hygiene. HEENT: Normocephalic, atraumatic, mucous membranes moist. Heart: Regular rate and rhythm, no murmurs. Lungs: Clear to auscultation with no wheezing or crackles. Abdomen: Soft, nondistended, nontender, positive bowel sounds. ?No guarding or rebound tenderness. Neurologic: Bilateral pupils are equal and reacting to light. Able to move all extremities. Muscle strength 4/5 throughout. Extremities: Noted surgical scar on the left knee likely from TKR. Noted chronic wound of 5 x 6 cm in the right lower extremity. Noted tissue pressure injuries on the upper lateral right and left thigh. Also noted infected area in the right toe and left 1st and 5th toes. Skin: No rash or ecchymoses. Objective Labs 04/03/25 05:28 04/03/25 05:28 Labs: Laboratory Results - last 24 hr 03/28/25 04/01/25 04/01/25 15:25 18:49 19:45 WBC RBC Hgb Hct MCV MCH MCHC RDW Std Deviation Plt Count Neut % (Auto) Lymph % (Auto) Day % (Auto) Eos % (Auto) Baso % (Auto) Neut # (Auto) Lymph # (Auto) Day # (Auto) Eos # (Auto) Baso # (Auto) Immature Gran # (Auto) Absolute Nucleated RBC Immature Gran % Nucleated RBC % Sodium 138 Potassium 3.6 Chloride 100 Carbon Dioxide 22.8 Anion Gap 15 BUN 38 H Creatinine 4.5 H* D Estim Creat Clear Calc 14.2 L eGFR 11 L* BUN/Creatinine Ratio 8 L Glucose 221 H Calculated Osmolality 291 Calcium 8.3 Corrected Calcium 8.9 Phosphorus 6.6 H Total Bilirubin AST ALT Alkaline Phosphatase Troponin I Total Protein Albumin 3.2 L Globulin Albumin/Globulin Ratio Ur Collection Type Catheter Urine Color Lt-Yellow Urine Clarity Turbid A Urine pH 6.5 Ur Specific [place] 1.010 Urine Protein Trace Urine Glucose (UA) Negative Urine Ketones Negative Urine Blood 2+ A Urine Nitrite Negative Urine Bilirubin Negative Urine Urobilinogen (Auto) Negative Ur Leukocyte Esterase Positive Urine RBC 176 H Urine WBC 54 H Ur Squamous Epith Cells 3 Urine Bacteria 1+ A Urine Yeast (Budding) Present A Ur Random Creatinine 20 L U Random Total Protein 68 H Random Vancomycin Rheumatoid Factor EFFIE Screen POSITIVE A EFFIE Titer 1:40 H EFFIE Titer 2 1:40 H EFFIE Titer 3 TNP EFFIE Pattern EFFIE Pattern 2 EFFIE Pattern 3 TNP 04/02/25 04:25 WBC 16.7 H RBC 3.66 L Hgb 10.7 L Hct 32.8 L MCV 90 MCH 29.2 MCHC 32.6 RDW Std Deviation 49.6 H Plt Count 251 D Neut % (Auto) 65 Lymph % (Auto) 12 Day % (Auto) 6 Eos % (Auto) 1 Baso % (Auto) 0 Neut # (Auto) 10.9 H Lymph # (Auto) 1.9 Day # (Auto) 1.0 H Eos # (Auto) 0.2 Baso # (Auto) 0.1 Immature Gran # (Auto) 2.63 H Absolute Nucleated RBC 0.04 H Immature Gran % 16 H Nucleated RBC % 0 Sodium 138 Potassium 3.8 Chloride 101 Carbon Dioxide 22.6 Anion Gap 14 BUN 52 H Creatinine 4.9 H* Estim Creat Clear Calc 13.1 L eGFR 10 L* BUN/Creatinine Ratio 11 L Glucose 144 H D Calculated Osmolality 292 Calcium 9.3 Corrected Calcium 9.9 Phosphorus Total Bilirubin 0.3 AST 49 H ALT 70 H Alkaline Phosphatase 118 H Troponin I 0.373 H* Total Protein 5.8 Albumin 3.3 L Globulin 2.5 Albumin/Globulin Ratio 1.3 Ur Collection Type Urine Color Urine Clarity Urine pH Ur Specific [place] Urine Protein Urine Glucose (UA) Urine Ketones Urine Blood Urine Nitrite Urine Bilirubin Urine Urobilinogen (Auto) Ur Leukocyte Esterase Urine RBC Urine WBC Ur Squamous Epith Cells Urine Bacteria Urine Yeast (Budding) Ur Random Creatinine U Random Total Protein Random Vancomycin 18.6 Rheumatoid Factor Negative EFFIE Screen EFFIE Titer EFFIE Titer 2 EFFIE Titer 3 EFFIE Pattern EFFIE Pattern 2 EFFIE Pattern 3 ABG Interpretation ABG results: 03/26/25 03/26/25 03/26/25 11:18 11:44 16:23 ABG pH 7.27 L Cancelled ABG pCO2 40 Cancelled ABG pO2 146 H Cancelled ABG HCO3 18 L Cancelled ABG O2 Saturation 100 H Cancelled ABG Base Excess -8 L Cancelled VBG pH 7.19 L VBG pCO2 48 VBG pO2 37 VBG Base Excess -10 L 03/26/25 03/27/25 03/27/25 18:43 00:17 03:42 ABG pH 7.16 L* D 7.24 L Cancelled ABG pCO2 58 H D 44 D Cancelled ABG pO2 68 L D 80 L Cancelled ABG HCO3 21 19 L Cancelled ABG O2 Saturation 90 L 96 Cancelled ABG Base Excess -9 L -8 L Cancelled VBG pH VBG pCO2 VBG pO2 VBG Base Excess 03/27/25 03/27/25 03/27/25 04:04 07:55 18:48 ABG pH 7.26 L 7.30 L ABG pCO2 43 37 ABG pO2 83 174 H D ABG HCO3 19 L 18 L ABG O2 Saturation 97 101 H ABG Base Excess -7 L -8 L VBG pH 7.21 L 7.31 L VBG pCO2 49 48 VBG pO2 54 52 VBG Base Excess -8 L -2 03/27/25 03/28/25 03/28/25 19:07 04:06 13:37 ABG pH 7.36 7.38 7.41 ABG pCO2 41 45 44 ABG pO2 79 L D 73 L 105 D ABG HCO3 23 27 H 27 H ABG O2 Saturation 97 96 99 H ABG Base Excess -2 1 2 VBG pH VBG pCO2 VBG pO2 VBG Base Excess 03/29/25 03/30/25 03/31/25 04:45 04:50 04:40 ABG pH 7.38 7.42 7.39 ABG pCO2 45 40 41 ABG pO2 72 L D 66 L 63 L ABG HCO3 27 H 26 25 ABG O2 Saturation 98 93 92 ABG Base Excess 1 2 0 VBG pH VBG pCO2 VBG pO2 VBG Base Excess 03/31/25 17:30 ABG pH 7.39 ABG pCO2 36 ABG pO2 80 L ABG HCO3 21 ABG O2 Saturation 96 ABG Base Excess -3 VBG pH VBG pCO2 VBG pO2 VBG Base Excess Quality Measures Quality Measures VTE prophylaxis Assessment & Plan Assessment Current Active Medications: Generic Name Dose Route Start Last Admin Trade Name Freq PRN Reason Stop Dose Admin Acetaminophen 650 mg 04/01/25 09:12 Acetaminophen 325 Mg Tablet PO 04/25/25 18:57 Q4HR PRN Pain Scale 1-3 OR fever >100.4 Albuterol/Ipratropium 3 ml 03/27/25 01:00 04/02/25 12:57 Albuterol/Ipratropium (Duoneb) Rt Jennifer 3 Ml Nebu INH 04/26/25 00:59 3 ml Q6HRRT CRIS Administration Amlodipine Besylate 10 mg 04/02/25 09:00 04/02/25 08:04 Amlodipine Besylate 5 Mg Tablet PO 05/02/25 08:59 10 mg QDAY CRIS Administration Aspirin 81 mg 04/01/25 09:30 04/02/25 08:03 Aspirin Ec 81 Mg Tabec PO 05/01/25 09:29 81 mg QDAY CRIS Administration Atorvastatin Calcium 80 mg 03/26/25 21:00 04/01/25 21:44 Atorvastatin Calcium 20 Mg Tablet PO 04/25/25 20:59 80 mg HS CRIS Administration Carvedilol 6.25 mg 04/01/25 17:30 04/02/25 07:45 Carvedilol 3.125 Mg Tablet PO 05/01/25 17:29 6.25 mg BIDWM CRIS Administration Dextrose 25 ml 03/26/25 20:20 Dextrose 50%-Water Inj 50 Ml Syringe IV 04/25/25 20:19 Q15MIN PRN BG 50-70 responsive npo pt Dextrose 50 ml 03/26/25 20:20 Dextrose 50%-Water Inj 50 Ml Syringe IV 04/25/25 20:19 Q15MIN PRN BG <50 OR BG <70 & pt unresponsive Glucagon 1 mg 03/26/25 20:20 Glucagon Inj 1 Mg Vial IM Q15MIN PRN BG <70, and no IV access Heparin Sodium (Porcine) 5,000 unit 03/27/25 14:00 04/02/25 05:42 Heparin Sod Inj 5000 Unit/Ml Vial SC 04/10/25 13:59 5,000 unit Q8HR CRIS Administration Heparin Sodium (Porcine) 2,600 unit 03/28/25 19:33 03/31/25 18:01 Heparin Sod Inj 1000 Unit/Ml Vial 10 Ml INDWELLCAT 04/11/25 19:32 2,600 unit X1 PRN Administration DIALYSIS Hydralazine HCl 25 mg 04/01/25 14:00 04/02/25 05:42 Hydralazine Hcl 25 Mg Tablet PO 05/01/25 13:59 25 mg TID CRIS Administration Albumin Human 25 gm in 100 mls @ 100 mls/min 03/29/25 10:36 03/31/25 18:45 Albuminar-25 Ivpb IV Infused PRN PRN Infusion DIALYSIS Ceftriaxone Sodium/Dextrose 1 gm in 50 mls @ 100 mls/hr 04/01/25 09:00 04/02/25 08:04 Rocephin/D5w 1gm Iv Premix IV 04/08/25 08:59 100 mls/hr QDAY CRIS Administration Insulin Degludec 24 unit 04/01/25 21:00 04/01/25 21:30 Insulin Degludec 5 Unit/0.05 Ml (Per 5 Units) SC 05/01/25 20:59 24 unit HS CRIS Administration Insulin Human Lispro 0 unit 04/02/25 07:30 04/02/25 07:54 Insulin Lispro (Admelog) 1 Unit/0.01 Ml Unit SC 05/02/25 07:29 Not Given ACHS [facility] Protocol Labetalol HCl 10 mg 04/01/25 11:16 Labetalol Inj 5 Mg/Ml Vial 20 Ml IVP 05/01/25 11:29 Q4HR PRN if SBP>140 Mupirocin 0 gm 03/29/25 08:30 04/02/25 05:43 Mupirocin Oint 2% 15 Gm Tube TOP 04/05/25 08:29 1 applicatio TID [facility] Administration Plan 59F with PMH of DM, HTN, asthma, drug use disorder, and a chronic right leg wound was brought to the ED after being found unresponsive at home where she was found to have acute encephalopathy with low GCS requiring intubation and ICU admission for ventilator support, pressor support for likely septic shock, and CRRT.. Patient found to have multi embolic disease involving multiple systems including brain and left distal extremity, acute and failure with the cause likely renal emboli. #Acute encephalopathy, multifactorial, related to metabolic derangement, substance use, and embolic CVA (Resolving) #Acute Multiple mbolic type foci occipital lobes, bilateral frontal and bilateral parietal lobe #Atrial septal aneurysm #PFO #Subarachnoid hemorrhage #Endocarditis #Tricuspid valve vegetation Patient came in with altered sensorium and head CT at the time showed multiple bilateral infarcts, likely embolic. Patient was weaned off sedation and extubated on 03/31/2025, tolerated well. Currently, patient is improving and is alert and oriented. Patient has extensive DVT in the left lower extremity also noted to have pulmonary embolism, patient might be having embolism through PFO and reaching the systemic circulation. TTE showed normal size left ventricle with mild apical and global hypokinesis LVEF 40-45%. Evidence of Tricuspid valve vegetation suggestive of endocarditis The RV is normal in size. The right ventricular systolic function is mildly decreased. Aortic valve sclerosis thickened wih mild aortic regurgitation. Mitral valve thickening with mild mitral regurgitation. SYLVIE (03/30/25) confirmed no vegetations. Noted to have atrial aneurysm bulging into left atrium, bubble study done showed PFO EEG from 04/02/25 shows diffuse slowing suggestive of a diffuse encephalopathy of vascular origin. Per neurology team, given PE and small PFO, PE could be the cause of embolism vs endocardititis but less likely as negative SYLVIE for vegation. Although leukocytosis noted, less likely secondary to endocarditis in origin and more likely secondary to ischemia vs less likely increased coagulopathy as no previous history of DVTs Plan: - Will continue atorvastatin and Aspirin for now - Cannot start on heparin drip as patient noted to have hemorrhagic infarcts on repeat CT head done on 03/30/2025. Repeat CT head from 04/02 showed stable multiple areas of subarachnoid hemorrhage compared to 04/01 - IVC filter placement is done on 03/31/2025 to prevent further embolic strokes through PFO from DVT - No need of urgent PFO closure as per Dr. Nayak. - PT and speech therapy - Pending hypercoaugulable workup due to suspected Antiphospholipid syndrome due to DVT and other infarcts - Pending MR venogram brain - Hematology Dr. Krishna was consulted, appreciate recs #Septic shock in settings of endocarditis with bacteremia (Resolved) # UTI At the time of admission, patient was noted to have bilateral lower extremity edema and bilateral diffuse inspiratory crackles -possible heart failure in the setting of methamphetamine abuse, diabetes, hypertension. Also noted to have temperature of 101.8 ?F at the time of admission, likely due to some ongoing infection. Fits into 2/3 qsofa criteria. Noted to have GCS less than 15 and respiratory rate 35/min. Suspecting sepsis worsening the underlying heart failure resulting in suspected possible combined septic and cardiogenic shock. DDx: Combined cardiogenic and septic shock WBC on admission 13.1 now at 16.7 (likely elevated in the setting of contrast), procalcitonin 43.23. UA showed turbid urine with 2+ proteinuria, 3+ glucosuria, 112 WBC, 4+ bacteria suggestive of UTI. Urine culture positive for E.coli, blood cultures negative. Echo confirmed no vegetation. Patient was started on Levophed and weaned off completely on 03/30/2025 Plan: - Initially patient was started on vancomycin and Zosyn [03/27-03/30], discontinued Vanco and Zosyn, - Continue ceftriaxone 2 g IV once daily (03/30-) - Will continue to monitor vitals # Acute hypoxic respiratory failure, resolving # Respiratory acidosis, resolved #Pneumonia Per patient family, patient does not have any previous history of respiratory problems and is not using any inhalers. Not a smoker. ABG at the time of admission showed pH 7.16, pCO2 58, pO2 68, FiO2 100%. Repeat ABG done on 03/27/2024 showed pH 7.3, pCO2 37, bicarb 18. Repeat ABGs done after 03/28/2025 is within normal limits. CTA chest Positive for multiple right lower pulmonary artery filling defects. Positive for left upper lobe pulmonary artery filling defects. No emboli in the main pulmonary artery segments. Pneumonia versus infarction in both lower lung zones. CXR shows bibasilar pneumonia DDx: Sepsis, acute encephalopathy, pulmonary edema, pulmonary embolism, combined. Patient was intubated, sedated and placed on mechanical ventilator on 03/26 and extubated on 03/31. Though patient had pulmonary embolism, patient oxygen needs is coming down. Currently saturating 92% at RA. Plan: - Continue ABx as above - Will continue oxygen as needed for now. # KINJAL #Acute renal failure likely 2/2 septic shock vs. renal emboli vs. rhabdomyolysis Patient does not follow-up any primary care doctor and unsure of her baseline kidney functions. Patient noted to have decreased urine output and oliguric since the time of admission. Creatinine at the time of admission is 2.8 --> 03/30, 2.4 --> 03/31, 3.1 --> 04/01, 4.9 Patient was anuric however now makes urine with UOP of 1700cc. DDx: Prerenal versus ATN in the setting of shock versus possible cardiorenal syndrome versus CKD in the setting of diabetes mellitus and hypertension versus embolic versus rhabdomyolysis Plan: - IV albumin - IV Bumex as needed - Will continue to monitor urine output - Monitor renal panel - Avoid nephrotoxic agents (aminoglycosides, NSAIDs, radiographic contrast) - Adjust medication dosing based on patient's impaired renal function - Hold any KRISSY/ARB/diuretics - Rotary Drier Operator, Dr. Zelaya is consulted and patient is started on CRRT through dialysis catheter placement in the right IJV on 03/27 - Received HD on 03/29, 03/30, 03/31 - Hold getting CT guided renal biopsy, to assess proteinuria # HFrEF, EF 40 to 45% #Substance Use Disorder Unsure whether patient is regular methamphetamine user, as family members is not aware of the use. Patient also have severe uncontrolled diabetes mellitus, which could also contribute to the ischemic heart disease and CHF. Plan: - Ordered repeat TTE. Patient is hemodynamically stable and off ventilator, if still found to have HFrEF, needed to be started on GDMT - Patient should be started on GDMT but in the setting of ongoing acute kidney injury and recovering shock, will hold GDMT for now\ - Removed fluid through CRRT/HD #NSTEMI type type I (embolic NC) vs. Type 2 (demand ischemia 2/2 shock) In the setting of demand ischemia. Troponin at the time of admission is 0.427, peaked at 20.920 and later down trended. EKG did not show any ST-T wave changes Plan: - Will continue telemetry monitoring - Shark Biologist, Dr. Nayak is consulted and will follow the recommendations # Pulmonary embolism # DVT Patient was noted to have mismatch between end-tidal CO2 and arterial CO2, also noted to have increased oxygen requirements on the ventilator for which CTA chest was ordered on 03/28/2025 CTA chest was positive for multiple right lower pulmonary artery filling defects. Positive for left upper lobe pulmonary artery filling defects. No emboli in the main pulmonary artery segments. Pneumonia versus infarction in both lower lung zones. Echocardiogram did not show any RV strain, though patient noted to have elevated troponin with peak level at 20.920, later down trended. EKG did not show any signs suggestive of pulmonary embolism. Venous doppler of LLE showed extensive chronic nonocclusive DVT involving the common femoral left superficial femoral, popliteal, peroneal, posterior tibial and greater saphenous veins. Tubular structures in the right popliteal fossa 6.0 cm in left popliteal fossa Plan: - Patient cannot be anticoagulated as of now as patient had hemorrhagic infarcts in the brain and is high risk for bleeding - IVC filter is by Dr. Murillo on 03/31/2025 - Patient is not a candidate of mechanical thrombectomy as of now and does not seem to be in right heart failure #Hypertension Patient noted to have history of hypertension but not using any medications before coming to the hospital BP initially elevated with SBP around 180-190. Now stablizied around 130s-140s. Plan - Continue amlodipine and carvedilol - Will continue to monitor blood pressures and titrate medications as needed # Transaminitis, resolving # Hyperbilirubinemia, resolved #Hepatitis C At the time of admission patient was found to have bilirubin of 1.6, AST 146, ALT 61 ---> 03/31, AST 76, ALT 74 DDx: Fatty liver versus chronic liver disease versus viral hepatitis versus secondary to ongoing septic shock and possible suspected ischemia Tested positive for hepatitis C antibody. Liver ultrasound showed 10 mm gallstone, CBD enlarged 0.6 cm, liver 18.5 cm fatty infiltration Plan: - Will continue to monitor liver functions - Patient has to follow-up with clinical rehab specialist on discharge on outpatient basis for follow-up on hepatitis C, currently does not suspect any active viral hepatitis # High anion gap metabolic acidosis # Lactic acidosis, resolved Likely in the setting of ongoing shock, likely due to sepsis. At the time of admission, anion gap is 19, lactate is 4.7 ---> 04/01, AG 22, Lactate 1.1 Anion gap improved on day of admission and lactic acidosis is slowly improving after starting CRRT. Plan: - Received CRRT on 03/27 and 03/28, HD on 03/29, 03/30, 03/31 - Will continue to monitor lab values # Rhabdomyolysis, resolved Patient happened to be on the floor lying down for 4 to 5 hours and also tested positive for methamphetamine on urine toxicology CK at the time of presentation is 9752 and received 2 L of fluid in the ED, as patient is fluid overloaded cannot give more fluids CK levels continue to trend down slowly to 1187. Plan: -CTM # Uncontrolled type 2 diabetes mellitus Patient is not following any primary care provider and not taking medications properly per patient's family. Blood glucose at the time of admission is 550 for which patient was given 10 units of lispro in the ED. The patient had high anion gap metabolic acidosis, tested negative for beta- hydroxybutyrate and DKA is ruled out. A1C: 13.6 Plan: - Started on insulin lispro sliding scale and degludec 12 units subcutaneous at bedtime, increased to 18 units on 03/30 based on morning blood sugars - Will titrate degludec according to FBS # Chronic right leg wound Likely from uncontrolled diabetes mellitus and venous congestion. On physical examination, noted 5 x 6 cm wound with well-healing granulation tissue. Arterial Doppler was ordered which showed no PAD in bilateral lower extremities Plan - Referral placed for wound care # History of asthma Unclear if patient is using inhalers or if she has recent exacerbations. Currently does not appear to be in any exacerbations Plan: -CTM Health Maintenance: Diet: cons carb GI prophylaxis: Protonix DVT prophylaxis: Heparin subcut 5000 units every 8 hours Antibiotics: Ceftriaxone CODE STATUS: Full Disposition: ICU downgrade to tele Case discussed with attending Dr. Graham and senior resident Dr. Miguel Rand DO, PGY-1 Attending Provider Attestation/Addendum Ran, Florecita Graham DO, attest that I was physically present for the ramos portions of the service and evaluated the patient with the resident and I reviewed and discussed the case with the resident and agree with the resident's findings and plans of care as documented above Patient is a 59-year-old female with past medical history of diabetes mellitus, hypertension, asthma, chronic right leg ulcer who was brought to the ED due to altered mental starts. Patient was found unresponsive by her family members with pinpoint pupils. Patient was down for at least 7 hours. She received Narcan by EMS with some improvement of mentation. Upon evaluation in the ED, patient had a GCS of less than 8 and was subsequently intubated for airway protection. She was also noted to have a temperature of 101.3, respiratory rate of 35, blood pressure 107/78 heart rate of 94 at the time of presentation. Labs done at that time showed elevated WBC 13.1, creatinine 2.8, bicarb 18.1, lactate 4.7, glucose 550, AST 146, ALT 61, creatinine kinase 9752, procalcitonin 43.23. UDS was noted to be positive for marijuana and methamphetamine. Head CT was done showing 2 acute embolic CVAs. An MRI was also done showing multiple embolic type foci of restricted diffusion in bilateral occipital lobes, bilateral frontal and bilateral parietal lobes. Patient was subsequently admitted to the ICU for acute hypoxic respiratory failure, acute toxic metabolic encephalopathy and rhabdomyolysis. Due to KINJAL on CKD due to multiorgan failure and septic shock, patient was started on CRRT over the course of her ICU stay. An echocardiogram was done on during which patient was found to have a mild apical and global hypokinesis, LVEF of 40 to 45% with tricuspid valve vegetations suggestive of endocarditis. A CTA was also done due to patient's increasing negative FiO2 on the ventilator on 03/28/2025 during which she was found to have multiple bilateral PEs and moving mainly the right lower lobe pulmonary artery and left upper lobe. A venous Doppler also showed extensive nonocclusive DVT in the left lower extremity extending up to the common femoral vein. Due to the concern for hemorrhagic transformation of the patient's embolic CVA, anticoagulation was held. Moreover, the suspicion for infective endocarditis as the cause for the multiple emboli would not indicate for anticoagulation. A repeat head CT was done during 03/1820 which did show hemorrhagic transformation with interval multiple areas of subarachnoid hemorrhage involving the right frontal convexity, left frontal parietal convexity in the right frontal sulci. A SYLVIE had been done as well on 03/30/2025 during which no vegetations were seen, but patient had a atrial septal aneurysm and PFO. Blood cultures have been positive for Staph hominis only 1 bottle, more likely secondary to contamination. A urine culture was done showing pansensitive E. coli. Patient had initially been on vancomycin and Zosyn since admission and switched to Rocephin current 2 g IV daily since 03/30. Transfer had been initially initiated on 03/30 for higher level of care due to the concern of multiple embolic strokes in the setting of PFO. However, cardiothoracic surgery at [facility] had low suspicion for embolic stroke caused by small PFO and recommended hypercoagulable workup before considering PFO closure. An IVC filter was placed on 03/31/2025. CT a of chest abdomen pelvis was also done that day showing no left atrial thrombus, PE in upper and lower pulmonary artery branches,pneumonia versus infarct in the right upper lobe and both bases and large splenic infarct with thrombus in upper lobe splenic arteries. Patient was extubated on 03/31. Patient's mental status has been improving, did not require any dialysis yesterday. Hypercoagulable workup has been initiated. Repeat CT head was done showing stable areas of subarachnoid hemorrhage. Anticoagulation remains to be held. Skin biopsy was done at bedside yesterday of livedo reticularis. Patient has since been downgraded from the ICU. He appears to have a right-sided neglect on exam. She does require some prompting with commands. Left right leg ulcer appears to be healing and no drainage noted. It does not appear to be infected. Left big toe and fifth digit appears to be necrotic. No peripheral edema noted. No murmurs noted on cardiac exam. Lungs are clear to auscultation bilaterally. Patient cannot recall why she came to the hospital. She appears to be somewhat confused but is A and O x 3. Gross sensation is intact. Muscle strength is 4+ out of 5 in all 4 extremities. Remains on 2 L nasal cannula at this time. Patient is in no acute distress. and mother are at bedside. Will follow with hypercoagulable workup. Will order physical therapy to work with patient. Patient has an A1c of 13.6. And patient states that she only takes metformin outpatient. She also reports history of hypertension with which she takes medication for. Blood glucose currently within normal range. Will uptitrate insulin as needed. Will have diabetic education provided to patient. Patient may need a biopsy of the kidneys to assess for proteinuria as recommended by nephrology. Cardiology had been following for NSTEMI. However, patient is deemed a poor candidate for surgical or percutaneous intervention at this time.
--- NOTE | 2025-04-02 16:37 | PC.SS ---
Patient downgraded from ICU on today's date, 04-02-25.
--- NOTE | 2025-04-02 17:10 | ECHO_ITS ---
Transthoracic Echo Report Ht (in): 62 Wt (lb): 198 Exam Location: Echo Lab Status: Inpatient Yarn Carrier: Maddy Sosa Indications: Procedure Performed: BP: 110 / 58 HR: 73 Technical Quality: Poor MEASUREMENTS (Male / Female) Normal Values 2D ECHO LV Diastolic Diameter PLAX 4.7 cm 4.2 - 5.9 / 3.9 - 5.3 cm LV Systolic Diameter PLAX 2.8 cm IVS Diastolic Thickness 1.1 cm 0.6 - 1.0 / 0.6 - 0.9 cm LVPW Diastolic Thickness 1.0 cm 0.6 - 1.0 / 0.6 - 0.9 cm LV Relative Wall Thickness 0.4 LVOT Diameter 1.9 cm LA Volume Index 14.5 cm?/m? 16 - 28 cm?/m? M-MODE Aortic Root Diameter MM 2.8 cm LA Systolic Diameter MM 4.0 cm LA Ao Ratio MM 1.4 AV Cusp Separation MM 2.1 cm DOPPLER AV Peak Velocity 204.0 cm/s AV Peak Gradient 16.6 mmHg AV Mean Gradient 9.0 mmHg AV Velocity Time Integral 34.7 cm LVOT Peak Velocity 154.0 cm/s LVOT Peak Gradient 9.5 mmHg LVOT Velocity Time Integral 36.0 cm LVOT Cardiac Index 3679.3 cm?/min?m? AV Area Cont Eq vti 2.9 cm? AV Area Cont Eq pk 2.1 cm? MV Area PHT 4.6 cm? Mitral E Point Velocity 65.0 cm/s Mitral A Point Velocity 85.4 cm/s Mitral E to A Ratio 0.8 LV E' Lateral Velocity 9.7 cm/s Mitral E to LV E' Lateral Ratio 6.7 LV E' Septal Velocity 6.0 cm/s Mitral E to LV E' Septal Ratio 10.9 TR Peak Velocity 246.0 cm/s TR Peak Gradient 24.2 mmHg PV Peak Velocity 156.0 cm/s PV Peak Gradient 9.7 mmHg FINDINGS Left Ventricle Normal left ventricular size, wall thickness, systolic function with no obvious regional wall motion abnormalities. The ejection fraction is visually estimated at 65-70 %. There is grade I diastolic dysfunction of the left ventricle (impaired relaxation pattern). Right Ventricle The right ventricle is normal in size and systolic function. Left Atrium The left atrium is normal by two-dimensional, color flow and Doppler imaging with no structural abnormalities, no thrombus formation present. Right Atrium The right atrium is normal by two-dimensional imaging, color flow and Doppler imaging with no structural abnormalities, no thrombus formation present. Atrial Septum The interatrial septum appears normal with no evidence of a shunt. Aorta The aorta is normal by two-dimensional, color flow and Doppler interrogation. Mitral Valve The mitral valve is normal by two-dimensional, color flow and Doppler interrogation. Trace mitral regurgitation. Aortic Valve The aortic valve is trileaflet and normal by two-dimensional, color flow and Doppler interrogation. There is no significant aortic valve regurgitation. Tricuspid Valve The tricuspid valve is normal by two-dimensional, color flow and Doppler interrogation. There is trace tricuspid valve regurgitation. Pulmonic Valve The pulmonic valve is not well visualized. There is no significant pulmonic valve regurgitation. Vessels The pulmonary artery appears normal. The inferior vena cava pulmonary and hepatic veins appear normal. Pericardium The pericardium is normal by two-dimensional imaging. There is no significant pericardial effusion. CONCLUSIONS Indication: Evaluate for HFrEF Normal LV size and hyperdynamic function. There is grade I diastolic dysfunction. Estimated EF is 65-70%. Normal RV size and function. Estimated RVSP 25-30 mm hg. 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 Trace to mild AI. Mild MR and trace TR. No evidence of any pericardial effusion. Atrial septal aneurysm present but not well visualized as the SYLVIE completed previously. No bubbl;e study performed but was positive on SYLVIE. Joshua Fernandez (Electronically Signed) Final Date: 05 April 2025 14:34
--- NOTE | 2025-04-02 18:08 | ESPR_ITS ---
RE: MARCOS MULLER : 1965 DATE OF SERVICE: 04/02/2025 SUBJECTIVE: The patient is a 59-year-old female admitted to the hospital because of respiratory failure, multiple thrombotic emboli to the brain, pulmonary embolus and splenic infarct. She is extubated. She is currently on telemetry. She is alert, responding to verbal command. PHYSICAL EXAMINATION: General: She is alert. Vital Signs: She is afebrile. Vitals stable. HEENT: Pupils are reactive to light and accommodation. Sclerae nonicteric. Neck: Supple. There are no JVD or palpable masses. Lungs: There is good air entry bilaterally. Heart: Regular. Abdomen: Soft. Bowel sounds are present. Extremities: With more than 3+ pitting edema bilaterally. She has a chronic wound on her right lower leg. Central Nervous System: The patient follows simple commands. PLAN AND RECOMMENDATIONS: The patient's coagulation blood work is all pending. Her WBC count is 16.7, hemoglobin 10.7, hematocrit 32.8 with normal indices, platelet count 251,000. We will continue the present plan of treatment. DT: 17:23:27 TT: 18:07:00 Ref: [id number] - TID: [id number]
[2025-04-02] MEDS: INSULIN DEGLUDEC 5 UNIT/0.05 ML (PER 5 UNITS) 24 UNIT SC (21:15)
[2025-04-02] MEDS: ATORVASTATIN CALCIUM 20 MG TABLET 80 MG PO (21:15)
[2025-04-02] MEDS: ACETAMINOPHEN 325 MG TABLET 650 MG PO (21:21)
[2025-04-03] VITALS (24 sets, daily range): BP systolic 86–149; BP diastolic 46–108; PULSE 45–97; RESP 13–26; TEMP 36.1–36.6; O2SAT 85–98; BMI 36.4
--- NOTE | 2025-04-03 | XR_ITS ---
Examination: MRV brain without contrast Date and time: April 03, 2025, 1836 hours INDICATIONS: Altered mental status beginning March 26, 2025, brain MRI March 26, 2025 multiple embolic type acute infarcts TECHNIQUE AND FINDINGS: MR venous angiographic images obtained without intravenous contrast, top over right left lateral rotational images. Sagittal sinus is open Straight sinus internal cerebral vein as well as right transverse sinus visualized Left transverse sinus is not visualized, which probably relates to the larger right transverse sinus Portions of the internal jugular vein also fill on the right IMPRESSION: Sagittal sinus straight sinus and right transverse sinus do fill No diagnostic finding of the left transverse sinus or left internal jugular vein, suggest ultrasound venous Doppler upper extremities to confirm no thrombus in the internal jugular veins
[2025-04-03] MEDS: ALBUTEROL/IPRATROPIUM (Duoneb) RT SOL 3 ML NEBU INH ×3 (00:48→19:33)
[2025-04-03] MEDS: HEPARIN SOD INJ 5000 UNIT/ML VIAL SC ×2 (05:31→21:41)
[2025-04-03] MEDS: MUPIROCIN OINT 2% 15 GM TUBE TOP ×2 (05:31→21:39)
[2025-04-03 06:16] LABS: Basophils # (Auto) 0.0 Thou/mm3 (0.0-0.2); Basophils % (Auto) 0 % (0-2.5); Eosinophils # (Auto) 0.2 Thou/mm3 (0.0-0.5); Eosinophils % (Auto) 1 % (0-10); Hematocrit 34.0 % (36.0-46.0); Hemoglobin 10.9 g/dL (12.0-16.0); Immature Granulocytes Auto 1.67 Thou/mm3 (0.00-0.00); Lymphocytes # (Auto) 1.7 Thou/mm3 (1.0-4.8); Lymphocytes % (Auto) 10 % (10-50); Mean Corpuscular HGB Conc 32.1 g/dl (31.0-37.0); Mean Corpuscular Hemoglobin 28.8 pg (25.0-35.0); Mean Corpuscular Volume 90 fL (80-100); Monocytes # (Auto) 0.9 Thou/mm3 (0.0-0.8); Monocytes % (Auto) 6 % (0-12); Neutrophils # (Auto) 11.9 Thou/mm3 (1.8-7.7); Neutrophils % (Auto) 73 % (37-80); Nucleated Red Blood Cell # 0.00 Thou/mm3 (0.00-0.00); Nucleated Red Blood Cell % 0 /100 WBC (0); Platelet Count 332 Thou/mm3 (140-440); RDW Standard Deviation 50.1 fL (36.4-46.3); Red Blood Count 3.79 Miln/mm3 (4.00-5.20); White Blood Count 16.4 Thou/mm3 (3.6-11.0)
--- NOTE | 2025-04-03 06:39 | PC.NURSE ---
DR. ELLIOTT NOTIFIED OF PT'S C/O ABDOMINAL PAIN, FLACC 5 , PT DENIES NAUSEA. PT DENIES HUNGER PAIN. NO DISTENTION NOTED. STATED WILL COME TO EVALUATE PT. NO NEW ORDER.
[2025-04-03 06:40] LABS: Alanine Aminotransferase 65 U/L (10-49); Albumin, Serum 3.5 gm/dL (3.5-5.0); Albumin/Globulin Ratio 1.3 (1.2-2.2); Alkaline Phosphatase 87 U/L (46-116); Anion Gap 16 (7-16); Aspartate Amino Transferase 42 U/L (0-34); BUN/Creatinine Ratio 11 Ratio (12-20); Bilirubin,Total 0.4 mg/dL (0.3-1.2); Blood Urea Nitrogen 59 mg/dL (9-23); Calcium 9.1 mg/dL (8.3-10.6); Calcium (Corrected) 9.5 mg/dL (8.5-10.1); Carbon Dioxide 25.4 mMol/L (20.0-31.0); Chloride 97 mMol/L (98-107); Creatinine (Component) 5.5 mg/dL (0.6-1.3); Estimated Creatinine Clearance 11.6 mL/min (>60); Globulin 2.8 gm/dL (2.3-3.5); Glucose 141 mg/dL (74-106); Magnesium 2.0 mg/dL (1.6-2.6); Osmolality,Calculated 294 (275-295); Phosphorous 5.3 mg/dL (2.4-5.1); Potassium 3.6 mMol/L (3.4-5.1); Sodium 138 mMol/L (136-145); Total Protein 6.3 gm/dL (5.7-8.2); eGFR 8 See Note
[2025-04-03] MEDS: ACETAMINOPHEN 325 MG TABLET 650 MG PO (08:21)
[2025-04-03] MEDS: cefTRIAXone/D5w 1gm IV premix 1 GM/50 ML BAG IV (08:22)
[2025-04-03] MEDS: ASPIRIN EC 81 MG TABEC PO (08:22)
--- NOTE | 2025-04-03 08:42 | PD.RESPRO ---
Documentation for date of: 04/03/25 Subjective Subjective Interval history: Reason for consult: KINJAL, oligoanuria-needing CRRT History of present illness: (patient was intubated during this abstract writer's visit so the following narrative was constructed primarily via chart checking) Vashti Ross is a 59-year-old F with a PMH of diabetes, hypertension, asthma, substance use disorder (including opiates, probable methamphetamine, and marijuana) on methadone previously, and a chronic right leg wound brought in by ambulance from her home for altered mental status. Per ED rendition of EMS report, patient was noted to be altered with a respiratory rate of 4 en route to [facility]. A total of 8 mg of Narcan was administered at this time which initially improved mentation. Upon arrival, patient was noted to be somnolent and given an additional 0.4 mg of IV Narcan which made her more active but also more combative. She was also noted to be hypoxic and in respiratory distress upon arrival which led her to be put on BiPAP. During her agitated episode, patient endorsed that she hurt all over and loudly yelled that I gotta get out of here . She was eventually given 2 mg of IV Versed and put on restraints due to her continued agitation. Later, she was taken for an MRI which required removal of her BiPAP but upon removal a subsequent drop in O2 saturation to the low 90s was noted. It was deemed that her airway was not secure and the decision was made to intubate the patient. After the MRI was performed, patient was eventually admitted to the ICU. From family collateral, it was learned that patient's last known well time was 22:30 on 03/26. Patient had been found on the floor by her at 05:00 on 03/27 whereupon he tried to rouse her from her stupor, failed, called patient's sister to notify her about patient's condition, and finally left her to go to work. Patient's sister arrived around 09:00 and found patient still lying on the bathroom whereupon this abstract writer assumes she called for an ambulance to bring the patient to the ED. In the ED, vitals showed: BP 107/78 HR 94 RR 35 Temp 101.3 SpO2 98% on 15 L BiPAP ED Course: CBC showed high WBC 13.1 w/ neutrophilic predominance but was otherwise WNL. Coagulation panel showed high PT 13.3. ABG showed acidic pH 7.27, normal pCO2 40, high pO2 146, low HCO3 18. CMP showed low carbon dioxide 18.1, high anion gap 19, high creatinine 2.8, low eGFR 19, very high blood glucose 550, very high lactic acid 4.7, high bilirubin 1.6, high AST 146, high ALT 61, high total creatine kinase 9752, very high troponin I 0.427, high BNP 297, and high procalcitonin 43.23. UA showed 2+ protein, 3+ glucose, 1+ ketones, 3+ blood, high RBC 10, high WBC 112, 3+ calcium oxalate crystals, 4+ bacteria, normal random sodium 34.2, normal random potassium 26, and low random chloride 23.2. UDS was (+) for amphetamines/methamphetamines and marijuana. Serological studies were reactive for hepatitis C antibody. Imaging: Head CT showed findings most consistent with acute right frontal lobe infarcts. Brain MRI showed multiple embolic-type foci of restricted diffusion in the bilateral occipital lobes, bilateral frontal lobes, and bilateral parietal lobes most consistent with acute infarcts. CXR showed bibasilar pneumonia and findings suspicious for mild associated heart failure. Renal US showed small kidneys with right renal cortical thinning as well as mild right and moderate left renal parenchymal scar formation. Carotid doppler study showed 20-40% stenosis of the right internal carotid artery and 0-10% stenosis of the left internal carotid artery. EKG was unremarkable. In the ED, patient was given Duoneb Precedex, doxycycline, etomidate, Lasix, regular insulin, ketamine, Versed, naloxone, 1 L LR bolus, Zemuron, and 1 L NS bolus. Patient was intubated due to low GCS and was admitted to the ICU. Nephrology was consulted due to patient's need for urgent hemodialysis. Neurology is also following. Interval History 03/28/2025: No overnight events. Patient seen and examined at bedside; they remained intubated and unable to describe their current experience. Notable labs today include: WBC bump to 15.7 from 15.0, creatinine drop to 1.6 from 2.4, blood glucose 170, AST drop to 148 from 179, ALT dropped to 104 from 114, total CK drop to 3666 from 5964, and troponin I drop to 8.789 from 14.934. Urine culture was positive for E. coli and 1 of 2 blood cultures was positive for GPC's (current speciation still pending). She remains without urinary output and has required CRRT. Her echocardiogram came back today showing decreased ejection fraction of 40 to 45% along with vegetations of the tricuspid valve (suggestive of endocarditis). From nephrology's standpoint, patient will be receiving hemodialysis today. 03/29/2025: Patient seen and examined in the ICU. Intubated and unable to follow commands. On exam, she opens eyes spontaneously, extremities are cold and edematous. she remains on pressors,BP 90s/50s wbc 16.8, Cr 1.8 from 1.3.Extensive chronic nonocclusive DVT involving the common femoral left superficial femoral, popliteal, peroneal, posterior tibial and greater saphenous veins HD today 03/30/2025: Patient seen and examined in the ICU, yesterday she was noted to be following commands in the afternoon, today however she is on several sedative medications. She remains on pressors, BP 110s to 120s/60s, WBC 11 from 16. LFT downtrending. BUN 25 from 18, Cr 2.4 from 1.8. On exam her LLE has dark fourth toe and big toe suspect embolic etiology, pending IVC filter per primary team. 03/31/2025: Patient seen and examined in the ICU, pt is noted to be able to follow simple comands, she remains intubated. SBP 130s-160s. WBC 16 from 11, BUN 32 from 25, Cr 3.1 from 2.4. IVC filter placement scheduled for today. SYLVIE yesterday had showed atrial septal aneurysm, likely source of embolic strokes in the setting of DVT. Currently holding off on anticoagulation due to concern for hemorrhagic conversion of infarct per CARDS, Dr Fernandez recommended transfer to [facility] for closure of shunt. Plan for HD today. 04/01/2025: Patient seen and examined in the ICU. pt is extubated, oxymask in place. alert and oriented, answering questions appropriately and following commands. SBP 150s, WBC 17 from 16, CO 19, BUN 34, Cr 3.6, eGFR 14, Lactic acid 1.1, UOP 650 very clear urine. had 1x bumex yesterday, d/c transfer order for PFO repair, pt states that she has had 2 miscarrages in the past, query antiphospholipid syndrome. CTA chest/ AP Large splenic infarct with thrombus in upper lobe splenic arteries. Plan to hold HD. 04/02/2025: Patient seen and examined in the ICU. pt remains extubated, on NC. alert and oriented x3, SBP 130s -150s WBC 16, K 3.5, BUN 52 from 34, Cr 4.9 from 3.6, eGFR 10, phos 6.6. pending hypercoag labs. UOP 1700cc (urine protein creatnine ratio: 3.4) hold off on renal biopsy today, Plan to HOLD HD. Plan to give IV bumex and albumin. 04/03/2025: Patient seen and examined, was downgraded from the ICU. She is alert and oriented x3, appears uncomfortable on exam, reports abdominal pain, Afebrile, normotensive, wbc 16 K 3.6, BUN 59 Cr 5.5 from 4.9, on exam she has diffuse tenderness to palpation, pain out of proportion to exam, no rebound, no guarding. grimaces with light palpation, CTA AP 03/31 with Large splenic infarct with thrombus in upper lobe splenic arteries and PEs noted again, query wheter pt has mesinnteic ischemia vs ischemic colitis. Plan for HD today Exam Vital Signs Temp Pulse Resp BP Pulse Ox O2 Del Method O2 Flow Rate 97.5 F 85 17 142/95 H 95 Nasal Cannula 2 04/03/25 08:00 04/03/25 08:22 04/03/25 08:00 04/03/25 08:22 04/03/25 08:00 04/03/25 08:00 04/03/25 08:00 FiO2 40 03/31/25 09:17 Narrative Exam General: alert and orientedx3 following commands, appears uncomfortable on exam HEENT: Normocephalic, atraumatic, mucous membranes dry, Heart: Regular rate and rhythm, no murmurs. Lungs: Clear to auscultation . Abdomen: Soft, nondistended, diffusely tender ,pain out of proportion to exam, positive bowel sounds. ?No guarding or rebound tenderness. , hernandez in place with clear dilute urine Neurologic: alert and oriented, Extremities: Noted chronic wound of 5 x 6 cm in the right lower extremity. Noted tissue pressure injuries on the upper lateral right and left thigh. Also noted infected area in the right toe. Peripheral pulses are 2+ There is demarcated ischemia of left foot of 1st and 5th digit. L knee surgical scar. Objective Labs 04/04/25 05:28 04/04/25 05:28 Labs: Laboratory Results - last 24 hr 03/28/25 04/02/25 04/03/25 15:25 04:25 05:28 WBC 16.4 H RBC 3.79 L Hgb 10.9 L Hct 34.0 L MCV 90 MCH 28.8 MCHC 32.1 RDW Std Deviation 50.1 H Plt Count 332 D Neut % (Auto) 73 Lymph % (Auto) 10 [place] % (Auto) 6 Eos % (Auto) 1 Baso % (Auto) 0 Neut # (Auto) 11.9 H Lymph # (Auto) 1.7 [place] # (Auto) 0.9 H Eos # (Auto) 0.2 Baso # (Auto) 0.0 Immature Gran # (Auto) 1.67 H Absolute Nucleated RBC 0.00 Immature Gran % 10 H Nucleated RBC % 0 Sodium 138 Potassium 3.6 Chloride 97 L Carbon Dioxide 25.4 Anion Gap 16 BUN 59 H Creatinine 5.5 H* D Estim Creat Clear Calc 11.6 L eGFR 8 L* BUN/Creatinine Ratio 11 L Glucose 141 H Calculated Osmolality 294 Calcium 9.1 Corrected Calcium 9.5 Phosphorus 5.3 H Magnesium 2.0 Total Bilirubin 0.4 AST 42 H ALT 65 H Alkaline Phosphatase 87 D Total Protein 6.3 Albumin 3.5 Globulin 2.8 Albumin/Globulin Ratio 1.3 Rheumatoid Factor Negative EFFIE Screen POSITIVE A EFFIE Titer 1:40 H EFFIE Titer 2 1:40 H EFFIE Titer 3 TNP EFFIE Pattern EFFIE Pattern 2 EFFIE Pattern 3 TNP ABG Interpretation ABG results: 03/26/25 03/26/25 03/26/25 11:18 11:44 16:23 ABG pH 7.27 L Cancelled ABG pCO2 40 Cancelled ABG pO2 146 H Cancelled ABG HCO3 18 L Cancelled ABG O2 Saturation 100 H Cancelled ABG Base Excess -8 L Cancelled VBG pH 7.19 L VBG pCO2 48 VBG pO2 37 VBG Base Excess -10 L 03/26/25 03/27/25 03/27/25 18:43 00:17 03:42 ABG pH 7.16 L* D 7.24 L Cancelled ABG pCO2 58 H D 44 D Cancelled ABG pO2 68 L D 80 L Cancelled ABG HCO3 21 19 L Cancelled ABG O2 Saturation 90 L 96 Cancelled ABG Base Excess -9 L -8 L Cancelled VBG pH VBG pCO2 VBG pO2 VBG Base Excess 03/27/25 03/27/25 03/27/25 04:04 07:55 18:48 ABG pH 7.26 L 7.30 L ABG pCO2 43 37 ABG pO2 83 174 H D ABG HCO3 19 L 18 L ABG O2 Saturation 97 101 H ABG Base Excess -7 L -8 L VBG pH 7.21 L 7.31 L VBG pCO2 49 48 VBG pO2 54 52 VBG Base Excess -8 L -2 03/27/25 03/28/25 03/28/25 19:07 04:06 13:37 ABG pH 7.36 7.38 7.41 ABG pCO2 41 45 44 ABG pO2 79 L D 73 L 105 D ABG HCO3 23 27 H 27 H ABG O2 Saturation 97 96 99 H ABG Base Excess -2 1 2 VBG pH VBG pCO2 VBG pO2 VBG Base Excess 03/29/25 03/30/25 03/31/25 04:45 04:50 04:40 ABG pH 7.38 7.42 7.39 ABG pCO2 45 40 41 ABG pO2 72 L D 66 L 63 L ABG HCO3 27 H 26 25 ABG O2 Saturation 98 93 92 ABG Base Excess 1 2 0 VBG pH VBG pCO2 VBG pO2 VBG Base Excess 03/31/25 17:30 ABG pH 7.39 ABG pCO2 36 ABG pO2 80 L ABG HCO3 21 ABG O2 Saturation 96 ABG Base Excess -3 VBG pH VBG pCO2 VBG pO2 VBG Base Excess Quality Measures Quality Measures VTE prophylaxis Assessment & Plan Assessment Current Active Medications: Generic Name Dose Route Start Last Admin Trade Name Freq PRN Reason Stop Dose Admin Acetaminophen 650 mg 04/01/25 09:12 04/03/25 08:21 Acetaminophen 325 Mg Tablet PO 04/25/25 18:57 650 mg Q4HR PRN Administration Pain Scale 1-3 OR fever >100.4 Albuterol/Ipratropium 3 ml 03/27/25 01:00 04/03/25 07:04 Albuterol/Ipratropium (Duoneb) Rt Jennifer 3 Ml Nebu INH 04/26/25 00:59 3 ml Q6HRRT CRIS Administration Amlodipine Besylate 10 mg 04/02/25 09:00 04/03/25 08:22 Amlodipine Besylate 5 Mg Tablet PO 05/02/25 08:59 10 mg QDAY CRIS Administration Aspirin 81 mg 04/01/25 09:30 04/03/25 08:22 Aspirin Ec 81 Mg Tabec PO 05/01/25 09:29 81 mg QDAY CRIS Administration Atorvastatin Calcium 80 mg 03/26/25 21:00 04/02/25 21:15 Atorvastatin Calcium 20 Mg Tablet PO 04/25/25 20:59 80 mg HS CRIS Administration Carvedilol 6.25 mg 04/01/25 17:30 04/03/25 08:21 Carvedilol 3.125 Mg Tablet PO 05/01/25 17:29 6.25 mg BIDWM CRIS Administration Dextrose 25 ml 03/26/25 20:20 Dextrose 50%-Water Inj 50 Ml Syringe IV 04/25/25 20:19 Q15MIN PRN BG 50-70 responsive npo pt Dextrose 50 ml 03/26/25 20:20 Dextrose 50%-Water Inj 50 Ml Syringe IV 04/25/25 20:19 Q15MIN PRN BG <50 OR BG <70 & pt unresponsive Glucagon 1 mg 03/26/25 20:20 Glucagon Inj 1 Mg Vial IM Q15MIN PRN BG <70, and no IV access Heparin Sodium (Porcine) 5,000 unit 03/27/25 14:00 04/03/25 05:31 Heparin Sod Inj 5000 Unit/Ml Vial SC 04/10/25 13:59 5,000 unit Q8HR CRIS Administration Heparin Sodium (Porcine) 2,600 unit 03/28/25 19:33 03/31/25 18:01 Heparin Sod Inj 1000 Unit/Ml Vial 10 Ml INDWELLCAT 04/11/25 19:32 2,600 unit X1 PRN Administration DIALYSIS Hydralazine HCl 25 mg 04/01/25 14:00 04/03/25 05:32 Hydralazine Hcl 25 Mg Tablet PO 05/01/25 13:59 Not Given TID CRIS Albumin Human 25 gm in 100 mls @ 100 mls/min 03/29/25 10:36 03/31/25 18:45 Albuminar-25 Ivpb IV Infused PRN PRN Infusion DIALYSIS Ceftriaxone Sodium/Dextrose 1 gm in 50 mls @ 100 mls/hr 04/01/25 09:00 04/03/25 08:22 Rocephin/D5w 1gm Iv Premix IV 04/08/25 08:59 100 mls/hr QDAY CRIS Administration Insulin Degludec 24 unit 04/01/25 21:00 04/02/25 21:15 Insulin Degludec 5 Unit/0.05 Ml (Per 5 Units) SC 05/01/25 20:59 24 unit HS CRIS Administration Insulin Human Lispro 0 unit 04/02/25 07:30 04/03/25 07:19 Insulin Lispro (Admelog) 1 Unit/0.01 Ml Unit SC 05/02/25 07:29 Not Given ACHS [facility] Protocol Labetalol HCl 10 mg 04/01/25 11:16 Labetalol Inj 5 Mg/Ml Vial 20 Ml IVP 05/01/25 11:29 Q4HR PRN if SBP>140 Mupirocin 0 gm 03/29/25 08:30 04/03/25 05:31 Mupirocin Oint 2% 15 Gm Tube TOP 04/05/25 08:29 1 applicatio TID [facility] Administration Plan Vashti Ross is a 59-year-old F with a PMH of diabetes, hypertension, asthma, substance use disorder (including opiates, probable methamphetamine, and marijuana) on methadone previously, and a chronic right leg wound brought in by ambulance from her home for altered mental status. Patient was intubated due to low GCS and was admitted to the ICU. echo with tricuspid vegitations and EF 40-45%, pt with extensive PE and extensive non occlusive DVT of LLE, SYLVIE revealed atrial septal aneurysm, likely source of embolic strokes in the setting of DVT. per cards, holding off on anticoagulation due to concern for hemorrhagic conversion of infarct. s/p IVC filter, found to have borderline nephrotic range proteinuria, pending renal biopsy, on exam today she has diffuse abdominal pain, query mesenteric ischemia vs ischemic colitis. HD today. #KINJAL vs. KINJAL on CKD vs. CKD Stage IV #likely 2/2 multifactorial etiologies including intravascular depletion, diabetic nephropathy, blood pressure derangements, glomerular diseases, sepsis-induced ATN, rhabdomyolysis, cardiorenal syndrome, crystalline nephropathy associated with oxalate, or atheroembolic disease #borderline nephrotic range proteinuria #Rhabdomyolysis Admission creatinine 2.8 (baseline: unknown), eGFR 19 Other notable labs include: blood glucose 550, total CK 9752, troponin 0.427, UDS(+) for amphetamines/methamphetamines on 03/29 BUN 18 from 12, Cr 1.8 from 1.3 on 03/30 BUN 24 from 18, Cr 2.4 from 1.8 on 03/31 BUN 32 from 24, Cr 3.1 from 2.4 on 04/01 BUN 34 from 32, Cr 3.6 from 3.1, 650 UOP clear and dilute, UrProt:Cr: 3.4. on 04/02 BUN 54 from 38, Cr 4.9 from 4.5, UOP 1770 clear and dilute on 04/03 BUN 59, Cr 5.5 from 4.9, UOP 650 HD: 03/28 CRRT, HD 03/29, 03/30, 03/31, 04/03 Treatment Plan - HD today - pending CT guided renal biopsy, to assess proteinuria - HOLDING IV bumex - IV albumin -Monitor renal panel -Avoid nephrotoxic agents (aminoglycosides, NSAIDs, radiographic contrast) -Adjust medication dosing based on patient's impaired renal function -Hold any KRISSY/ARB/diuretics #Other medical problems #CVA #?subarachnoid hemorrhage #Acute encephalopathy #NSTEMI, Type 1 vs Type 2 #query APS (hx of miscarriages) -consulted Dr Krishna #Multiple PE - CTA Positive for multiple right lower lobe pulmonary artery and left upper lobe pulmonary artery emboli #Extensive nonocclusive DVT LLE -s/p IVC filter #CHF - echo with EF 40 -45% #Endocarditis -TTE with tricuspid vegitations #Atrial aneurysm - SYLVIE with Atrial septal aneurysm present and bubble study positive for PFO especially with increased right atrial pressure. #Large splenic infarct with thrombus in upper lobe splenic arteries #query acute mesenteric ischemia vs ischemic colitis on 04/03 pt has diffuse abdominal pain out of proportion to exam. #Acute hypoxic respiratory failure- resolved #Respiratory acidosis #Community-acquired pneumonia #Transaminitis + hyperbilirubinemia #HAGMA #T2DM #Leukocytosis persistent #septic shock- resolved, off pressors, #Left toes gangreen vs Atheroembolism of left lower extremity toes -Continue management per primary care team (ICU) Plan discussed with nephrology attending Dr. Nathalie Vallejo MD Internal Medicine PGY-1 Attending Provider Attestation/Addendum Patient seen and examined with resident physician Dr. Vallejo. Note reviewed, agree with findings and recommendations. Patient currently seen in ICU. Currently on pressors. Significant edema noted. Patient received 2 days of CRRT, 3 conventional dialysis.. at bedside. 04/03/2025 moved out of ICU. Patient has hypercoagulable // thrombotic disorder. Patient has both arterial infarcts, venous thrombosis cannot give heparin due to subarachnoid hemorrhage. CT brain yesterday showed questionable subarachnoid hemorrhage. Patient currently seen on dialysis. Tolerating dialysis without any problems. Hemodialysis for 3 hours, 2K, ultrafiltration 1-2 L, Epogen 6000, no heparin ordered. Plan of care discussed with the dialysis nurse. Please see dialysis flowsheet for further details. Complaining of abdominal pain. Spoke to Dr. Graham-ordered CT angiography. Will do dialysis again tomorrow. Suspect ischemic ATN. Hold off on kidney biopsy. Patient more alert and awake.
--- NOTE | 2025-04-03 09:48 | ESPR_ITS ---
<Statement entered by Kentrell Hendricks MD - 04/03/25 18:32> Patient was examined and case was reviewed with team including attending physician. Note reviewed, I agree with most of its contents and agree with the patient's care as documented by Dr. Rand Patient seen evaluated the bedside. Vital signs stable at this time. Patient noted to have diffuse abdominal pain. For which right upper quadrant ultrasound was ordered. Patient was taken to dialysis and had rapid response due to diffuse abdominal pain, dilaudid 1mg was given and with adequate response. CTA of the abdomen pelvis was ordered to rule out ischemic colitis or mesenteric ischemia. If CTA shows mesenteric obstruction patient will require stat transfer to a higher level of care. Will continue to follow closely at this time. Case discussed with my attending Dr. Santos Hendricks MD PGY-2 Disclaimer: Despite multiple revisions, due to the dictation software being used, the document bellow may not be free of grammatical errors including phonetic/typographic errors. However, this does not deter from our commitment to providing health care in the patient's best interest in mind. Documentation for date of: 04/03/25 Subjective Subjective Interval history: 04/03/25: STACIE. VSS. Patient reports diffuse abdominal pain which has started this morning. Patient had 5 bowel movements from 1600 to 1800 yesterday. On exam, abdomen is soft but mildly distended with tenderness to palpation throughout mainly in RUQ and LUQ. Patient will be taken by the nephrology team for HD today. Exam Vital Signs Temp Pulse Resp BP Pulse Ox O2 Del Method O2 Flow Rate 97.5 F 85 17 142/95 H 95 Nasal Cannula 2 04/03/25 08:00 04/03/25 08:22 04/03/25 08:00 04/03/25 08:22 04/03/25 08:00 04/03/25 08:00 04/03/25 08:00 FiO2 40 03/31/25 09:17 Narrative Exam General: Off sedation, appears comfortable. Poor hygiene. A/O x2 HEENT: Normocephalic, atraumatic, mucous membranes moist. Heart: Regular rate and rhythm, no murmurs. Lungs: Clear to auscultation with no wheezing or crackles. Abdomen: Soft, mildly distended, tenedrness to palpation throughout but mainly in RUQ and LUQ. No guarding or rebound tenderness. Neurologic: Bilateral pupils are equal and reacting to light. Able to move all extremities. Muscle strength 4/5 throughout. Extremities: Noted surgical scar on the left knee likely from TKR. Noted chronic wound of 5 x 6 cm in the right lower extremity. Noted tissue pressure injuries on the upper lateral right and left thigh. Also noted infected area in the right toe and left 1st and 5th toes. Skin: No rash or ecchymoses. Objective Labs 04/04/25 05:28 04/04/25 05:28 Labs: Laboratory Results - last 24 hr 03/28/25 04/02/25 04/03/25 15: 04:25 05:28 WBC 16.4 H RBC 3.79 L Hgb 10.9 L Hct 34.0 L MCV 90 MCH 28.8 MCHC 32.1 RDW Std Deviation 50.1 H Plt Count 332 D Neut % (Auto) 73 Lymph % (Auto) 10 [place] % (Auto) 6 Eos % (Auto) 1 Baso % (Auto) 0 Neut # (Auto) 11.9 H Lymph # (Auto) 1.7 [place] # (Auto) 0.9 H Eos # (Auto) 0.2 Baso # (Auto) 0.0 Immature Gran # (Auto) 1.67 H Absolute Nucleated RBC 0.00 Immature Gran % 10 H Nucleated RBC % 0 Sodium 138 Potassium 3.6 Chloride 97 L Carbon Dioxide 25.4 Anion Gap 16 BUN 59 H Creatinine 5.5 H* D Estim Creat Clear Calc 11.6 L eGFR 8 L* BUN/Creatinine Ratio 11 L Glucose 141 H Calculated Osmolality 294 Calcium 9.1 Corrected Calcium 9.5 Phosphorus 5.3 H Magnesium 2.0 Total Bilirubin 0.4 AST 42 H ALT 65 H Alkaline Phosphatase 87 D Total Protein 6.3 Albumin 3.5 Globulin 2.8 Albumin/Globulin Ratio 1.3 Rheumatoid Factor Negative EFFIE Screen POSITIVE A EFFIE Titer 1:40 H EFFIE Titer 2 1:40 H EFFIE Titer 3 TNP EFFIE Pattern EFFIE Pattern 2 EFFIE Pattern 3 TNP ABG Interpretation ABG results: 03/26/25 03/26/25 03/26/25 11:18 11:44 16:23 ABG pH 7.27 L Cancelled ABG pCO2 40 Cancelled ABG pO2 146 H Cancelled ABG HCO3 18 L Cancelled ABG O2 Saturation 100 H Cancelled ABG Base Excess -8 L Cancelled VBG pH 7.19 L VBG pCO2 48 VBG pO2 37 VBG Base Excess -10 L 03/26/25 03/27/25 03/27/25 18:43 00:17 03:42 ABG pH 7.16 L* D 7.24 L Cancelled ABG pCO2 58 H D 44 D Cancelled ABG pO2 68 L D 80 L Cancelled ABG HCO3 21 19 L Cancelled ABG O2 Saturation 90 L 96 Cancelled ABG Base Excess -9 L -8 L Cancelled VBG pH VBG pCO2 VBG pO2 VBG Base Excess 03/27/25 03/27/25 03/27/25 04:04 07:55 18:48 ABG pH 7.26 L 7.30 L ABG pCO2 43 37 ABG pO2 83 174 H D ABG HCO3 19 L 18 L ABG O2 Saturation 97 101 H ABG Base Excess -7 L -8 L VBG pH 7.21 L 7.31 L VBG pCO2 49 48 VBG pO2 54 52 VBG Base Excess -8 L -2 03/27/25 03/28/25 03/28/25 19:07 04:06 13:37 ABG pH 7.36 7.38 7.41 ABG pCO2 41 45 44 ABG pO2 79 L D 73 L 105 D ABG HCO3 23 27 H 27 H ABG O2 Saturation 97 96 99 H ABG Base Excess -2 1 2 VBG pH VBG pCO2 VBG pO2 VBG Base Excess 03/29/25 03/30/25 03/31/25 04:45 04:50 04:40 ABG pH 7.38 7.42 7.39 ABG pCO2 45 40 41 ABG pO2 72 L D 66 L 63 L ABG HCO3 27 H 26 25 ABG O2 Saturation 98 93 92 ABG Base Excess 1 2 0 VBG pH VBG pCO2 VBG pO2 VBG Base Excess 03/31/25 17:30 ABG pH 7.39 ABG pCO2 36 ABG pO2 80 L ABG HCO3 21 ABG O2 Saturation 96 ABG Base Excess -3 VBG pH VBG pCO2 VBG pO2 VBG Base Excess Quality Measures Quality Measures VTE prophylaxis Assessment & Plan Assessment Current Active Medications: Generic Name Dose Route Start Last Admin Trade Name Freq PRN Reason Stop Dose Admin Acetaminophen 650 mg 04/01/25 09:12 04/03/25 08:21 Acetaminophen 325 Mg Tablet PO 04/25/25 18:57 650 mg Q4HR PRN Administration Pain Scale 1-3 OR fever >100.4 Albuterol/Ipratropium 3 ml 03/27/25 01:00 04/03/25 07:04 Albuterol/Ipratropium (Duoneb) Rt Jennifer 3 Ml Nebu INH 04/26/25 00:59 3 ml Q6HRRT CRIS Administration Amlodipine Besylate 10 mg 04/02/25 09:00 04/03/25 08:22 Amlodipine Besylate 5 Mg Tablet PO 05/02/25 08:59 10 mg QDAY CRIS Administration Aspirin 81 mg 04/01/25 09:30 04/03/25 08:22 Aspirin Ec 81 Mg Tabec PO 05/01/25 09:29 81 mg QDAY CRIS Administration Atorvastatin Calcium 80 mg 03/26/25 21:00 04/02/25 21:15 Atorvastatin Calcium 20 Mg Tablet PO 04/25/25 20:59 80 mg HS CRIS Administration Carvedilol 6.25 mg 04/01/25 17:30 04/03/25 08:21 Carvedilol 3.125 Mg Tablet PO 05/01/25 17:29 6.25 mg BIDWM CRIS Administration Dextrose 25 ml 03/26/25 20:20 Dextrose 50%-Water Inj 50 Ml Syringe IV 04/25/25 20:19 Q15MIN PRN BG 50-70 responsive npo pt Dextrose 50 ml 03/26/25 20:20 Dextrose 50%-Water Inj 50 Ml Syringe IV 04/25/25 20:19 Q15MIN PRN BG <50 OR BG <70 & pt unresponsive Glucagon 1 mg 03/26/25 20:20 Glucagon Inj 1 Mg Vial IM Q15MIN PRN BG <70, and no IV access Heparin Sodium (Porcine) 5,000 unit 03/27/25 14:00 04/03/25 05:31 Heparin Sod Inj 5000 Unit/Ml Vial SC 04/10/25 13:59 5,000 unit Q8HR CRIS Administration Heparin Sodium (Porcine) 2,600 unit 03/28/25 19:33 03/31/25 18:01 Heparin Sod Inj 1000 Unit/Ml Vial 10 Ml INDWELLCAT 04/11/25 19:32 2,600 unit X1 PRN Administration DIALYSIS Hydralazine HCl 25 mg 04/01/25 14:00 04/03/25 05:32 Hydralazine Hcl 25 Mg Tablet PO 05/01/25 13:59 Not Given TID CRIS Albumin Human 25 gm in 100 mls @ 100 mls/min 03/29/25 10:36 03/31/25 18:45 Albuminar-25 Ivpb IV Infused PRN PRN Infusion DIALYSIS Ceftriaxone Sodium/Dextrose 1 gm in 50 mls @ 100 mls/hr 04/01/25 09:00 04/03/25 08:22 Rocephin/D5w 1gm Iv Premix IV 04/08/25 08:59 100 mls/hr QDAY CRIS Administration Insulin Degludec 24 unit 04/01/25 21:00 04/02/25 21:15 Insulin Degludec 5 Unit/0.05 Ml (Per 5 Units) SC 05/01/25 20:59 24 unit HS CRIS Administration Insulin Human Lispro 0 unit 04/02/25 07:30 04/03/25 07:19 Insulin Lispro (Admelog) 1 Unit/0.01 Ml Unit SC 05/02/25 07:29 Not Given ACHS [facility] Protocol Labetalol HCl 10 mg 04/01/25 11:16 Labetalol Inj 5 Mg/Ml Vial 20 Ml IVP 05/01/25 11:29 Q4HR PRN if SBP>140 Mupirocin 0 gm 03/29/25 08:30 04/03/25 05:31 Mupirocin Oint 2% 15 Gm Tube TOP 04/05/25 08:29 1 applicatio TID CRIS Administration Plan 59F with PMH of DM, HTN, asthma, drug use disorder, and a chronic right leg wound was brought to the ED after being found unresponsive at home where she was found to have acute encephalopathy with low GCS requiring intubation and ICU admission for ventilator support, pressor support for likely septic shock, and CRRT.. Patient found to have multi embolic disease involving multiple systems including brain and left distal extremity, acute and failure with the cause likely renal emboli. #Acute encephalopathy, multifactorial, related to metabolic derangement, substance use, and embolic CVA (Resolving) #Acute Multiple mbolic type foci occipital lobes, bilateral frontal and bilateral parietal lobe #Atrial septal aneurysm #PFO #Subarachnoid hemorrhage #Endocarditis #Tricuspid valve vegetation Patient came in with altered sensorium and head CT at the time showed multiple bilateral infarcts, likely embolic. Patient was weaned off sedation and extubated on 03/31/2025, tolerated well. Currently, patient is improving and is alert and oriented. Patient has extensive DVT in the left lower extremity also noted to have pulmonary embolism, patient might be having embolism through PFO and reaching the systemic circulation. TTE showed normal size left ventricle with mild apical and global hypokinesis LVEF 40-45%. Evidence of Tricuspid valve vegetation suggestive of endocarditis The RV is normal in size. The right ventricular systolic function is mildly decreased. Aortic valve sclerosis thickened wih mild aortic regurgitation. Mitral valve thickening with mild mitral regurgitation. SYLVIE (03/30/25) confirmed no vegetations. Noted to have atrial aneurysm bulging into left atrium, bubble study done showed PFO EEG from 04/02/25 shows diffuse slowing suggestive of a diffuse encephalopathy of vascular origin. Per neurology team, given PE and small PFO, PE could be the cause of embolism vs endocardititis but less likely as negative SYLVIE for vegation. Although leukocytosis noted, less likely secondary to endocarditis in origin and more likely secondary to ischemia vs less likely increased coagulopathy as no previous history of DVTs. Hematology Dr. Krishna was consulted who agreed with the current plan. Plan: - Will continue atorvastatin and Aspirin for now - Cannot start on heparin drip as patient noted to have hemorrhagic infarcts on repeat CT head done on 03/30/2025. Repeat CT head from 04/02 showed stable multiple areas of subarachnoid hemorrhage compared to 04/01 - IVC filter placement is done on 03/31/2025 to prevent further embolic strokes through PFO from DVT - No need of urgent PFO closure as per Dr. Nayak. - PT and speech therapy - Pending hypercoaugulable workup due to suspected Antiphospholipid syndrome due to DVT and other infarcts - Pending MR venogram brain #Septic shock in settings of endocarditis with bacteremia (Resolved) # UTI At the time of admission, patient was noted to have bilateral lower extremity edema and bilateral diffuse inspiratory crackles -possible heart failure in the setting of methamphetamine abuse, diabetes, hypertension. Also noted to have temperature of 101.8 ?F at the time of admission, likely due to some ongoing infection. Fits into 2/3 qsofa criteria. Noted to have GCS less than 15 and respiratory rate 35/min. Suspecting sepsis worsening the underlying heart failure resulting in suspected possible combined septic and cardiogenic shock. DDx: Combined cardiogenic and septic shock WBC on admission 13.1 now at 16.4 (down from 16.7 yesterday) (likely elevated in the setting of contrast), procalcitonin 43.23. UA showed turbid urine with 2+ proteinuria, 3+ glucosuria, 112 WBC, 4+ bacteria suggestive of UTI. Urine culture positive for E.coli, blood cultures negative. Echo confirmed no vegetation. Patient was started on Levophed and weaned off completely on 03/30/2025 Plan: - Initially patient was started on vancomycin and Zosyn [03/27-03/30], discontinued Vanco and Zosyn, - Continue ceftriaxone 2 g IV once daily (03/30-) - Will continue to monitor vitals # Acute hypoxic respiratory failure, resolving # Respiratory acidosis, resolved #Pneumonia Per patient family, patient does not have any previous history of respiratory problems and is not using any inhalers. Not a smoker. ABG at the time of admission showed pH 7.16, pCO2 58, pO2 68, FiO2 100%. Repeat ABG done on 03/27/2024 showed pH 7.3, pCO2 37, bicarb 18. Repeat ABGs done after 03/28/2025 is within normal limits. CTA chest Positive for multiple right lower pulmonary artery filling defects. Positive for left upper lobe pulmonary artery filling defects. No emboli in the main pulmonary artery segments. Pneumonia versus infarction in both lower lung zones. CXR shows bibasilar pneumonia DDx: Sepsis, acute encephalopathy, pulmonary edema, pulmonary embolism, combined. Patient was intubated, sedated and placed on mechanical ventilator on 03/26 and extubated on 03/31. Though patient had pulmonary embolism, patient oxygen needs is coming down. Currently saturating 92% at RA. Plan: - Continue ABx as above - Will continue oxygen as needed for now. #KINJAL #Acute renal failure likely 2/2 septic shock vs. renal emboli vs. rhabdomyolysis Patient does not follow-up any primary care doctor and unsure of her baseline kidney functions. Patient noted to have decreased urine output and oliguric since the time of admission. Creatinine at the time of admission is 2.8 --> 03/30, 2.4 --> 03/31, 3.1 --> 04/01, 4.9 --> 04/03, 5.5 UOP of 400 DDx: Prerenal versus ATN in the setting of shock versus possible cardiorenal syndrome versus CKD in the setting of diabetes mellitus and hypertension versus embolic versus rhabdomyolysis Plan: - HD today - IV albumin - Held IV Bumex - Will continue to monitor urine output - Monitor renal panel - Avoid nephrotoxic agents (aminoglycosides, NSAIDs, radiographic contrast) - Adjust medication dosing based on patient's impaired renal function - Hold any KRISSY/ARB/diuretics - Lockstitch Waistband Setter, Dr. Zelaya is consulted and patient is started on CRRT through dialysis catheter placement in the right IJV on 03/27 - Received HD on 03/29, 03/30, 03/31, 04/03 - Hold getting CT guided renal biopsy, to assess proteinuria # HFrEF, EF 40 to 45% #Substance Use Disorder Unsure whether patient is regular methamphetamine user, as family members is not aware of the use. Patient also have severe uncontrolled diabetes mellitus, which could also contribute to the ischemic heart disease and CHF. Plan: - Pending repeat TTE. Patient is hemodynamically stable and off ventilator, if still found to have HFrEF, needed to be started on GDMT - Patient should be started on GDMT but in the setting of ongoing acute kidney injury and recovering shock, will hold GDMT for now - Removed fluid through CRRT/HD #NSTEMI type type I (embolic OR) vs. Type 2 (demand ischemia 2/2 shock) In the setting of demand ischemia. Troponin at the time of admission is 0.427, peaked at 20.920 and later down trended. EKG did not show any ST-T wave changes Plan: - Will continue telemetry monitoring - Dba, Dr. Nayak is consulted and will follow the recommendations # Pulmonary embolism # DVT Patient was noted to have mismatch between end-tidal CO2 and arterial CO2, also noted to have increased oxygen requirements on the ventilator for which CTA chest was ordered on 03/28/2025 CTA chest was positive for multiple right lower pulmonary artery filling defects. Positive for left upper lobe pulmonary artery filling defects. No emboli in the main pulmonary artery segments. Pneumonia versus infarction in both lower lung zones. Echocardiogram did not show any RV strain, though patient noted to have elevated troponin with peak level at 20.920, later down trended. EKG did not show any signs suggestive of pulmonary embolism. Venous doppler of LLE showed extensive chronic nonocclusive DVT involving the common femoral left superficial femoral, popliteal, peroneal, posterior tibial and greater saphenous veins. Tubular structures in the right popliteal fossa 6.0 cm in left popliteal fossa Plan: - Patient cannot be anticoagulated as of now as patient had hemorrhagic infarcts in the brain and is high risk for bleeding - IVC filter is by Dr. Murillo on 03/31/2025 - Patient is not a candidate of mechanical thrombectomy as of now and does not seem to be in right heart failure #Hypertension Patient noted to have history of hypertension but not using any medications before coming to the hospital BP initially elevated with SBP around 180-190. Now stablizied around 130s-140s. Plan - Continue amlodipine and carvedilol - Will continue to monitor blood pressures and titrate medications as needed #Abdominal pain Patient reported diffuse abdominal pain today (04/03/25). On exam, diffuse TTP noted mainly in RUQ and LUQ with no peritinic signs. Her LUQ could be due to the renal infarc that has been noted on recent CT. We will order RUQ US to further assess and rule out Budd Chiari. Patient had 5 bowel movements yesterday. Differentials: Budd chiari vs constipation vs ileus vs ischemic colitis vs flatulence, etc Lactate: 1.1 Plan: - Ordered RUQ US - If US unremarkable, we will consider ordering CTA abdomen to rule out ischemic colitis # Transaminitis, resolving # Hyperbilirubinemia, resolved #Hepatitis C At the time of admission patient was found to have bilirubin of 1.6, AST 146, ALT 61 ---> 8/, AST 76, ALT 74 --> 8/, AST 42 , ALT 65 DDx: Fatty liver versus chronic liver disease versus viral hepatitis versus secondary to ongoing septic shock and possible suspected ischemia Tested positive for hepatitis C antibody. Liver ultrasound showed 10 mm gallstone, CBD enlarged 0.6 cm, liver 18.5 cm fatty infiltration Plan: - Will continue to monitor liver functions - Patient has to follow-up with hoop flaring machine operator helper on discharge on outpatient basis for follow-up on hepatitis C, currently does not suspect any active viral hepatitis # High anion gap metabolic acidosis # Lactic acidosis, resolved Likely in the setting of ongoing shock, likely due to sepsis. At the time of admission, anion gap is 19, lactate is 4.7 ---> 04/01, AG 22, Lactate 1.1 --> 04/03 AG 16, lactate 1.1 Anion gap improved on day of admission and lactic acidosis is slowly improving after starting CRRT. Plan: - Received CRRT on 03/27 and 03/28, HD on 03/29, 03/30, 03/31 - Will continue to monitor lab values # Rhabdomyolysis, resolved Patient happened to be on the floor lying down for 4 to 5 hours and also tested positive for methamphetamine on urine toxicology CK at the time of presentation is 9752 and received 2 L of fluid in the ED, as patient is fluid overloaded cannot give more fluids CK levels continue to trend down slowly to 1187. Plan: -CTM # Uncontrolled type 2 diabetes mellitus Patient is not following any primary care provider and not taking medications properly per patient's family. Blood glucose at the time of admission is 550 for which patient was given 10 units of lispro in the ED. The patient had high anion gap metabolic acidosis, tested negative for beta- hydroxybutyrate and DKA is ruled out. A1C: 13.6 Plan: - Started on insulin lispro sliding scale and degludec 12 units subcutaneous at bedtime, increased to 18 units on 03/30 based on morning blood sugars - Will titrate degludec according to FBS # Chronic right leg wound Likely from uncontrolled diabetes mellitus and venous congestion. On physical examination, noted 5 x 6 cm wound with well-healing granulation tissue. Arterial Doppler was ordered which showed no PAD in bilateral lower extremities Plan - Wound care consulted - Start Vitamin C 250mg BID - Start Zinc sulfate 220mg Qday x14 days (04/03-) - Nephro-Vu # History of asthma Unclear if patient is using inhalers or if she has recent exacerbations. Currently does not appear to be in any exacerbations Plan: -CTM Health Maintenance: Diet: cons carb GI prophylaxis: Protonix DVT prophylaxis: Heparin subcut 5000 units every 8 hours Antibiotics: Ceftriaxone CODE STATUS: Full Disposition: ICU downgrade to tele Case discussed with attending Dr. Graham and senior resident Dr. Adis Rand DO, PGY-1 Attending Provider Attestation/Addendum Florecita Tong DO, attest that I was physically present for the ramos portions of the service and evaluated the patient with the resident and I reviewed and discussed the case with the resident and agree with the resident's findings and plans of care as documented above Patient seen and evaluated this AM. Patient complaining of upper abdominal pain, worse in epigastric region. Patient had 5 BMs last night. There is mild palpable distension in epigastric region. However, abdomen is otherwise soft on palpation. Tenderness does not appear more tender on palpation. She is otherwise sitting up in bed in no acute distress. Brother at bedside. Mild crackles noted in b/l Lung avalos. Pending hypercoagulable workup. RUQ US ordered for abdominal pain. Patient's brother reported that the pain was triggered after she ate her breakfast. Patient had a rapid response at 2:09pm in dialysis during which patient was in some distress due to the persistent abdominal pain. She had received 2mg of morphine without any improvement. 1mg of diaudid was given. CTA ordered to rule out mesenteric ischemia. If mesenteric AA are found to be obstructed, patient will likely need transfer to tertiary care center for further evaluation given patient's multiple comorbidities.
--- NOTE | 2025-04-03 10:29 | XR_ITS ---
Examination: Abdomen sonogram, Limited Date and time of exam: April 03, 2025 1615 hours INDICATIONS: Right upper abdominal pain onset today Technique: Real-time arzate scale transabdominal sonographic images of the upper abdomen obtained. Findings: No gallstones. Gallbladder wall 0.45 cm no edema Common bile duct 0.7 cm no stones Pancreatic head 3.5 cm Liver 21.0 cm fatty infiltration no focal liver lesions Normal hepatopedal portal venous flow Patent IVC IMPRESSION: Negative for gallstones Gallbladder wall is thickened 0.45 cm Pancreatic head is prominent 3.5 cm Moderate hepatomegaly Consider MRCP follow-up to exclude cholecystitis and assess the prominent pancreatic head
[2025-04-03 11:29] LABS: Lactate (Lactic Acid) 1.1 mMol/L (0.4-2.0)
[2025-04-03] MEDS: MORPHINE SULF INJ 10 MG/ML VIAL 2 MG IVP (13:27)
--- NOTE | 2025-04-03 14:13 | EKG_ITS ---
[facility] Test Date: 2025-04-03 Pat Name: MARCOS MULLER [facility] Gender[facility] Female Sheriffs Officer: BRANDI : 1965 Requested By: Thomas Rand Order Number: [id number] Reading MD: Thomas Rand Measurements Intervals [place] Rate: 81 P: 64 UT: 169 QRS: 36 QRSD: 87 T: 38 QT: 361 QTc: 421 Interpretive Statements SINUS RHYTHM Compared to ECG 04/02/2025 04:25:30 Sinus bradycardia no longer present Sinus arrhythmia no longer present /store/[id number]
--- NOTE | 2025-04-03 14:18 | EVENTNT_ITS ---
<Statement entered by Kentrell Hendricks MD - 04/03/25 17:26> Patient was examined and case was reviewed with team including attending physician. Note reviewed, I agree with most of its contents and agree with the patient's care. Kentrell Hendricks MD PGY-2 Documentation for date of: 04/03/25 1400 Event Note Event Note: Rapid was called at 1400 04/03/25 for abdominal pain while patient was receiving HD. Vitals: BP 145/108, MAP 122 and HR of 79. Saturating at RA with no signs of respiratory distress. CV and Lung exam unremarkable. Abdomen was examined which was soft mildy distended with no rigidity or guarding. Tenderness to palpation noted mainly in epigastric region.. Patient received 2mg of Morphine previously and was given 1mg of dilaudid with improvement of symptoms. Patient will be taken for CTA abdomen once dialysis session ends (35 minutes left as the rapid response event was ended). Patient remains hemodynamically stable.
[2025-04-03] MEDS: HYDROmorphone INJ 2 MG/ML VIAL 1 MG IVP ×2 (14:20→22:31)
--- NOTE | 2025-04-03 14:31 | XR_ITS ---
Examination: CTA abdomen, with intravenous contrast. CTA pelvis, with intravenous contrast. 2-D sagittal and coronal reconstructions. 3-D reconstructions. Date and time of exam: April 03, 2025 1608 hours, comparison March 31, 2025 INDICATIONS: Abdominal pain and distention today CTDI vol (mgy) 12.1 DLP (MGycm) 700 Technique: Multiple CTA images, 2.0 mm slice thickness, obtained abdomen, pelvis, with the high-resolution 64 slice scanner. 2-D sagittal coronal reconstructions Intravenous administration 100 cc Isovue 370 Low-dose protocols, adjustment TUNDE be according to patient's size FINDINGS: Again noted pulmonary artery emboli and lower lobe pulmonary artery branches Mass contiguous with the right hilum 32 mm Mass in the right lower lobe 28 mm Pneumonia left base Liver is irregular in contour Large splenic infarct is again noted No pancreatic mass Suspicious for gallbladder sludge Nodular thickening left adrenal gland measuring 24 mm No hydronephrosis Aorta normal size IVC filter Mildly fluid distended small bowel loops 22 mm fat-containing umbilical hernia Trace ascites throughout the abdomen No free air, no ischemic bowel noted No bowel obstruction Atrophic anteverted uterus with calcified uterine fundal mass IMPRESSION: Again noted pulmonary emboli and lower lobe pulmonary artery branches 32 mm mass contiguous with the right hilum 20 mm mass in the right lower lobe Pneumonia left base Cirrhosis Mild ascites Suspicious for gallbladder sludge Left adrenal gland Mass. 24 mm Mildly fluid distended small bowel loops No obstruction or findings diagnostic for ischemic bowel 22 mm umbilical hernia containing incarcerated fat
[2025-04-03] MEDS: FAMOTIDINE INJ 10 MG/ML VIAL 2 ML 20 MG IVP (17:24)
--- NOTE | 2025-04-03 18:02 | ESPR_ITS ---
RE: MARCOS MULLER : 1965 DATE OF SERVICE: 04/03/2025 SUBJECTIVE: Ms. Muller is a 59-year-old female admitted to the hospital because of respiratory failure, multiple emboli to the brain and lungs, and also has a splenic infarct. She was recently seen by Dr. Oliver, but no consultation is there at the moment and a staff mentioned to me that she can move her legs and she also had a dialysis done today. PHYSICAL EXAMINATION: General: She is sleepy. Vital Signs: Stable. HEENT: Pupils are reactive to light. Neck: Supple. There is no JVD or palpable mass. Lungs: There is good air entry bilaterally. Heart: Regular. Abdomen: Soft. Bowel sounds are present. Extremities: More than 3+ pitting edema. There is chronic wound on the right lower leg. Central Nervous System: The patient is able to move her lower extremities. LABORATORY DATA: Blood work today, WBC count 16.4, hemoglobin 10.9, hematocrit 34.0, and platelet count 332,000. Sodium is 138, potassium 3.6, chloride is 97, BUN 50, creatinine 5.5, and GFR is 8. Other coagulation studies are pending. PLAN AND RECOMMENDATIONS: We will continue the anticoagulant treatment as advised. DT: 17:31:16 TT: 18:00:00 Ref: [id number] - TID: [id number]
[2025-04-03 18:10] LABS: Troponin I 0.130 ng/mL (0.0-0.045)
--- NOTE | 2025-04-03 18:38 | ESPR_ITS ---
RE: MARCOS MULLER : 1965 DATE OF SERVICE: 04/03/2025 SUBJECTIVE: Ms. Muller is a 59-year-old female admitted to hospital because of respiratory failure, multiple thrombotic emboli to the brain and lung, and also has a splenic infarct. She had a dialysis done today. At the moment, she is sleepy and staff mentioned to me that she is able to move her lower extremities. PHYSICAL EXAMINATION: Vital Signs: She is afebrile. Vitals stable. Neck: Supple. There is no JVD or palpable mass. Lungs: There is good air entry bilaterally. Heart: Regular. Abdomen: Soft. Bowel sounds are present. Extremities: 3+ edema and she has a chronic wound in her right leg. Central Nervous System: Staff mentioned that she is able to move her lower extremities, but she is at the moment sleepy. PLAN AND RECOMMENDATIONS: Her blood work today has a WBC count of 16.4, hemoglobin 10.9, hematocrit 34.0 with normal indices, and platelet count is 332,000. BUN is 59, creatinine is 5.5, and GFR is 8. Coagulation studies are still pending. I will sign her off and she has to take anticoagulant for some time, especially for 1 year because of the pulmonary emboli or if the neurologist recommended for longer period of time, but I will sign off in the meantime. DT: 17:34:07 TT: 18:14:00 Ref: [id number] - TID: [id number] MTDD
[2025-04-03 21:12] LABS: Lactate (Lactic Acid) 1.1 mMol/L (0.4-2.0)
[2025-04-03 21:33] LABS: Alanine Aminotransferase 60 U/L (10-49); Albumin, Serum 3.6 gm/dL (3.5-5.0); Albumin/Globulin Ratio 1.2 (1.2-2.2); Alkaline Phosphatase 88 U/L (46-116); Anion Gap 15 (7-16); Aspartate Amino Transferase 39 U/L (0-34); BUN/Creatinine Ratio 9 Ratio (12-20); Bilirubin,Total 0.5 mg/dL (0.3-1.2); Blood Urea Nitrogen 34 mg/dL (9-23); Calcium 9.1 mg/dL (8.3-10.6); Calcium (Corrected) 9.4 mg/dL (8.5-10.1); Carbon Dioxide 23.7 mMol/L (20.0-31.0); Chloride 99 mMol/L (98-107); Creatinine (Component) 4.0 mg/dL (0.6-1.3); Estimated Creatinine Clearance 15.6 mL/min (>60); Globulin 2.9 gm/dL (2.3-3.5); Glucose 132 mg/dL (74-106); Osmolality,Calculated 285 (275-295); Potassium 3.8 mMol/L (3.4-5.1); Sodium 138 mMol/L (136-145); Total Protein 6.5 gm/dL (5.7-8.2); eGFR 12 See Note
--- NOTE | 2025-04-03 22:12 | XR_ITS ---
Examination: AP chest single view TECHNIQUE: AP portable upright chest single view Date and time: April 04, 2025, 0012 hours, comparison March 31, 2025 INDICATIONS: Posterior orogastric tube placement FINDINGS: Orogastric tube tip in the body of the stomach satisfactory position Right internal jugular dialysis catheter tip SVC Endotracheal tube tip 3 cm above Toma Mild enlargement cardiac contour Bibasilar pneumonia Moderate vascular congestion Prominent osteopenia IMPRESSION: Orogastric tube tip body of the stomach satisfactory position
--- NOTE | 2025-04-03 23:11 | PD.NEUROPROG ---
Documentation for date of: 04/03/25 Subjective Subjective Interval history: Patient was seen in dialysis room today, c/o abdominal pain today and had to call [employer] this morning Exam - Neurology Vital Signs Temp Pulse Resp BP Pulse Ox O2 Del Method O2 Flow Rate 97.8 F 77 20 147/72 H 91 L Nasal Cannula 3 04/03/25 20:00 04/03/25 21:03 04/03/25 20:00 04/03/25 21:03 04/03/25 20:00 04/03/25 20:00 04/03/25 20:00 FiO2 40 03/31/25 09:17 Narrative Exam GENERAL APPEARANCE: Well hydrated, well-nourished in no acute distress. HEENT: Normocephalic, atraumatic, extraocular movements intact. Pupils: Equal reacting to light and accommodation NECK: Supple, no JVD or bruits. CARDIOVASULAR: Heart: S1, S2 heard, regular without S3-S4 or murmur no rubs or gallops. LUNGS/CHEST: Clear to auscultation bilaterally. No rails, rhonchi, or wheezing. Normal inspection. ABDOMEN: Soft, nontender, with normal bowel sounds. No pulsatile masses. No rebound, rigidity, or guarding. Normal inspection and palpation. EXTREMITIES: Normal inspection and palpation. No edema, clubbing or cyanosis. SKIN: Warm and dry without rashes. Normal inspection. MUSCULOSKELETAL: No cervical, thoracic, lumbar or midline bony tenderness. Normal inspection. NEURO: Alert, awake and oriented x2. Cranial nerves: II through XII grossly intact. Speech and language: Normal with no dysarthria or dysphasia. Motor system: Tone and bulk: Normal: Strength: Moves all 4 extremities; No pronator drift noted. Deep tendon reflexes: 2+ bilaterally symmetrical. Plantar reflex: Downgoing bilaterally. Sensory system: Intact to all modalities of sensation bilaterally. Coordination: Intact to sceknb-jahd-qbbac and xtnq-ddqb-hlxk test bilaterally. No ataxia, no dysmetria, or dysdiadochokinesia noted. No intention tremors noted. Gait: Normal. Toe, heel, tandem walk all are normal. Romberg: Negative. No signs of meningeal irritation noted. PSYCHIATRIC: Normal mood and affect. Objective Labs 04/06/25 04:52 04/06/25 04:52 Labs: Laboratory Results - last 24 hr 04/03/25 04/03/25 04/03/25 05:28 11:24 12:11 WBC 16.4 H RBC 3.79 L Hgb 10.9 L Hct 34.0 L MCV 90 MCH 28.8 MCHC 32.1 RDW Std Deviation 50.1 H Plt Count 332 D Neut % (Auto) 73 Lymph % (Auto) 10 [place] % (Auto) 6 Eos % (Auto) 1 Baso % (Auto) 0 Neut # (Auto) 11.9 H Lymph # (Auto) 1.7 [place] # (Auto) 0.9 H Eos # (Auto) 0.2 Baso # (Auto) 0.0 Immature Gran # (Auto) 1.67 H Absolute Nucleated RBC 0.00 Immature Gran % 10 H Nucleated RBC % 0 Sodium 138 Potassium 3.6 Chloride 97 L Carbon Dioxide 25.4 Anion Gap 16 BUN 59 H Creatinine 5.5 H* D Estim Creat Clear Calc 11.6 L eGFR 8 L* BUN/Creatinine Ratio 11 L Glucose 141 H Calculated Osmolality 294 Lactic Acid 1.1 Calcium 9.1 Corrected Calcium 9.5 Phosphorus 5.3 H Magnesium 2.0 Total Bilirubin 0.4 AST 42 H ALT 65 H Alkaline Phosphatase 87 D Troponin I 0.130 H* D Total Protein 6.3 Albumin 3.5 Globulin 2.8 Albumin/Globulin Ratio 1.3 04/03/25 20:58 WBC RBC Hgb Hct MCV MCH MCHC RDW Std Deviation Plt Count Neut % (Auto) Lymph % (Auto) [place] % (Auto) Eos % (Auto) Baso % (Auto) Neut # (Auto) Lymph # (Auto) [place] # (Auto) Eos # (Auto) Baso # (Auto) Immature Gran # (Auto) Absolute Nucleated RBC Immature Gran % Nucleated RBC % Sodium 138 Potassium 3.8 Chloride 99 Carbon Dioxide 23.7 Anion Gap 15 BUN 34 H Creatinine 4.0 H D Estim Creat Clear Calc 15.6 L eGFR 12 L* BUN/Creatinine Ratio 9 L Glucose 132 H Calculated Osmolality 285 Lactic Acid 1.1 Calcium 9.1 Corrected Calcium 9.4 Phosphorus Magnesium Total Bilirubin 0.5 AST 39 H ALT 60 H Alkaline Phosphatase 88 Troponin I Total Protein 6.5 Albumin 3.6 Globulin 2.9 Albumin/Globulin Ratio 1.2 ABG Interpretation ABG results: 03/26/25 03/26/25 03/26/25 11:18 11:44 16:23 ABG pH 7.27 L Cancelled ABG pCO2 40 Cancelled ABG pO2 146 H Cancelled ABG HCO3 18 L Cancelled ABG O2 Saturation 100 H Cancelled ABG Base Excess -8 L Cancelled VBG pH 7.19 L VBG pCO2 48 VBG pO2 37 VBG Base Excess -10 L 03/26/25 03/27/25 03/27/25 18:43 00:17 03:42 ABG pH 7.16 L* D 7.24 L Cancelled ABG pCO2 58 H D 44 D Cancelled ABG pO2 68 L D 80 L Cancelled ABG HCO3 21 19 L Cancelled ABG O2 Saturation 90 L 96 Cancelled ABG Base Excess -9 L -8 L Cancelled VBG pH VBG pCO2 VBG pO2 VBG Base Excess 03/27/25 03/27/25 03/27/25 04:04 07:55 18:48 ABG pH 7.26 L 7.30 L ABG pCO2 43 37 ABG pO2 83 174 H D ABG HCO3 19 L 18 L ABG O2 Saturation 97 101 H ABG Base Excess -7 L -8 L VBG pH 7.21 L 7.31 L VBG pCO2 49 48 VBG pO2 54 52 VBG Base Excess -8 L -2 03/27/25 03/28/25 03/28/25 19:07 04:06 13:37 ABG pH 7.36 7.38 7.41 ABG pCO2 41 45 44 ABG pO2 79 L D 73 L 105 D ABG HCO3 23 27 H 27 H ABG O2 Saturation 97 96 99 H ABG Base Excess -2 1 2 VBG pH VBG pCO2 VBG pO2 VBG Base Excess 03/29/25 03/30/25 03/31/25 04:45 04:50 04:40 ABG pH 7.38 7.42 7.39 ABG pCO2 45 40 41 ABG pO2 72 L D 66 L 63 L ABG HCO3 27 H 26 25 ABG O2 Saturation 98 93 92 ABG Base Excess 1 2 0 VBG pH VBG pCO2 VBG pO2 VBG Base Excess 03/31/25 17:30 ABG pH 7.39 ABG pCO2 36 ABG pO2 80 L ABG HCO3 21 ABG O2 Saturation 96 ABG Base Excess -3 VBG pH VBG pCO2 VBG pO2 VBG Base Excess Assessment & Plan Assessment and plan (1) Ischemic cerebrovascular accident (CVA): Status: Acute (2) Uncontrolled diabetes mellitus: Status: Chronic (3) Pneumonia: Status: Acute Additional Assessment & Plan Additional Plan: (1) Ischemic cerebrovascular accident (CVA): Status: Acute Assessment and plan: With the recent CTs showing findings suspicious for subarachnoid and intracerebral hemorrhage Continue with aspirin 81 mg and statin Follow-up with the hypercoagulopathy workup Continue with the physical therapy and Occupational Therapy as she tolerates (2) Uncontrolled diabetes mellitus: Status: Chronic Assessment and plan: Continue to check fingerstick glucose and follow sliding scale insulin per protocol (3) Pulmonary embolism: Status: Chronic Assessment and plan: She got the IVC filter placement Anticoagulation is difficult to decide from concurrent intracerebral and subarachnoid hemorrhage on the CT head
[2025-04-04] VITALS (25 sets, daily range): BP systolic 100–143; BP diastolic 53–77; PULSE 60–89; RESP 16–20; TEMP 36.3–36.9; O2SAT 90–96; BMI 36.4
[2025-04-04] MEDS: ALBUTEROL/IPRATROPIUM (Duoneb) RT SOL 3 ML NEBU INH ×3 (00:26→18:30)
[2025-04-04] MEDS: HYDROmorphone INJ 2 MG/ML VIAL 1 MG IVP ×3 (03:44→21:05)
[2025-04-04] MEDS: HEPARIN SOD INJ 5000 UNIT/ML VIAL SC ×3 (05:39→21:06)
[2025-04-04] MEDS: MUPIROCIN OINT 2% 15 GM TUBE TOP ×3 (05:40→21:15)
[2025-04-04 06:07] LABS: Basophils # (Auto) 0.1 Thou/mm3 (0.0-0.2); Basophils % (Auto) 1 % (0-2.5); Eosinophils # (Auto) 0.1 Thou/mm3 (0.0-0.5); Eosinophils % (Auto) 0 % (0-10); Hematocrit 31.2 % (36.0-46.0); Hemoglobin 9.7 g/dL (12.0-16.0); Immature Granulocytes Auto 1.35 Thou/mm3 (0.00-0.00); Lymphocytes # (Auto) 2.1 Thou/mm3 (1.0-4.8); Lymphocytes % (Auto) 10 % (10-50); Mean Corpuscular HGB Conc 31.1 g/dl (31.0-37.0); Mean Corpuscular Hemoglobin 28.4 pg (25.0-35.0); Mean Corpuscular Volume 92 fL (80-100); Monocytes # (Auto) 1.3 Thou/mm3 (0.0-0.8); Monocytes % (Auto) 6 % (0-12); Neutrophils # (Auto) 16.7 Thou/mm3 (1.8-7.7); Neutrophils % (Auto) 77 % (37-80); Nucleated Red Blood Cell # 0.00 Thou/mm3 (0.00-0.00); Nucleated Red Blood Cell % 0 /100 WBC (0); Platelet Count 350 Thou/mm3 (140-440); RDW Standard Deviation 51.4 fL (36.4-46.3); Red Blood Count 3.41 Miln/mm3 (4.00-5.20); White Blood Count 21.6 Thou/mm3 (3.6-11.0)
[2025-04-04 06:31] LABS: Alanine Aminotransferase 55 U/L (10-49); Albumin, Serum 3.4 gm/dL (3.5-5.0); Albumin/Globulin Ratio 1.1 (1.2-2.2); Alkaline Phosphatase 87 U/L (46-116); Anion Gap 15 (7-16); Aspartate Amino Transferase 33 U/L (0-34); BUN/Creatinine Ratio 9 Ratio (12-20); Bilirubin,Total 0.4 mg/dL (0.3-1.2); Blood Urea Nitrogen 41 mg/dL (9-23); Calcium 9.2 mg/dL (8.3-10.6); Calcium (Corrected) 9.7 mg/dL (8.5-10.1); Carbon Dioxide 24.6 mMol/L (20.0-31.0); Chloride 100 mMol/L (98-107); Creatinine (Component) 4.4 mg/dL (0.6-1.3); Estimated Creatinine Clearance 14.2 mL/min (>60); Globulin 3.1 gm/dL (2.3-3.5); Glucose 125 mg/dL (74-106); Magnesium 2.0 mg/dL (1.6-2.6); Osmolality,Calculated 290 (275-295); Phosphorous 6.5 mg/dL (2.4-5.1); Potassium 3.8 mMol/L (3.4-5.1); Sodium 140 mMol/L (136-145); Total Protein 6.5 gm/dL (5.7-8.2); eGFR 11 See Note
--- NOTE | 2025-04-04 08:27 | ESPR_ITS ---
<Statement entered by Mele Rivera MD - 04/04/25 16:03> Senior Resident Attestation: I supervised/discussed management plan with internal controls manager physician Dr. Rand, and was involved in the care of this patient. I personally saw and examined the patient and discussed the assessment and plan with the entire medicine team, including my attending. I agree with the assessment and plan as documented. Patient was seen and examined at bedside. She reports her abdominal pain has improved. Overnight CT showed incarcerated umbilical fat, NG tube was placed and general surgery was consulted. General surgery did not recommend any surgical intervention at this time. Patient pulled the NG tube in the morning today. She reports her abdominal pain is much better now. Her diet was resumed. Her antibiotics were changed from ceftriaxone to cefepime and vancomycin due to elevated WBCs. Patient will also have additional hemodialysis session today. Patient's care was discussed with attending physician, Dr. Garcia. Mele Rivera MD PGY-3. Documentation for date of: 04/04/25 Subjective Subjective Interval history: 04/04/25: Patient reported diffuse abdominal pain yesterday and [employer] was called for abdominal pain while she was receiving hemodialysis. Patient was hemodynamically stable. CTA abdomen and pelvis was ordered which showed 22mm umbilical hernia with incarcerated fat. OG tube was placed initially for suspected SBO vs bowel obstruction however patient pulled it out. Dr. Wood was consulted who recommended no surgical intervention at this time due to patient's multiple active problems such as PE and subarachinoid hemorrgahe and CVA as this incarcerated umbiolicla fat hernia is most likely chronic. Patient's pain has improved and currently reports minimal abdominal pain. Patient's diet was advanced to full liquid diet. Vital signs remain stable and patient has no other complaints. Saturating 90- 96% on 4L. Exam Vital Signs Temp Pulse Resp BP Pulse Ox O2 Del Method O2 Flow Rate 98.3 F 81 19 100/54 L 92 L Nasal Cannula 4 04/04/25 04:00 04/04/25 06:32 04/04/25 06:32 04/04/25 05:37 04/04/25 06:32 04/04/25 04:00 04/04/25 06:32 FiO2 40 03/31/25 09:17 Narrative Exam General: Off sedation, appears comfortable. Poor hygiene. A/O x2 HEENT: Normocephalic, atraumatic, mucous membranes moist. Heart: Regular rate and rhythm, no murmurs. Lungs: Clear to auscultation with no wheezing or crackles. Abdomen: Soft, mildly distended, mild discomfort to palpation throughout. No guarding or rebound tenderness. Neurologic: Bilateral pupils are equal and reacting to light. Able to move all extremities. Muscle strength 4/5 throughout. Extremities: Noted surgical scar on the left knee likely from TKR. Noted chronic wound of 5 x 6 cm in the right lower extremity. Noted tissue pressure injuries on the upper lateral right and left thigh. Also noted infected area in the right toe and left 1st and 5th toes. Skin: No rash or ecchymoses. Objective Labs 04/05/25 05:00 04/05/25 05:47 Labs: Laboratory Results - last 24 hr 04/03/25 04/03/25 04/03/25 11:24 12:11 20:58 WBC RBC Hgb Hct MCV MCH MCHC RDW Std Deviation Plt Count Neut % (Auto) Lymph % (Auto) Becker % (Auto) Eos % (Auto) Baso % (Auto) Neut # (Auto) Lymph # (Auto) Becker # (Auto) Eos # (Auto) Baso # (Auto) Immature Gran # (Auto) Absolute Nucleated RBC Immature Gran % Nucleated RBC % Sodium 138 Potassium 3.8 Chloride 99 Carbon Dioxide 23.7 Anion Gap 15 BUN 34 H Creatinine 4.0 H D Estim Creat Clear Calc 15.6 L eGFR 12 L* BUN/Creatinine Ratio 9 L Glucose 132 H Calculated Osmolality 285 Lactic Acid 1.1 1.1 Calcium 9.1 Corrected Calcium 9.4 Phosphorus Magnesium Total Bilirubin 0.5 AST 39 H ALT 60 H Alkaline Phosphatase 88 Troponin I 0.130 H* D Total Protein 6.5 Albumin 3.6 Globulin 2.9 Albumin/Globulin Ratio 1.2 04/04/25 05:28 WBC 21.6 H D RBC 3.41 L Hgb 9.7 L Hct 31.2 L MCV 92 MCH 28.4 MCHC 31.1 RDW Std Deviation 51.4 H Plt Count 350 Neut % (Auto) 77 Lymph % (Auto) 10 Becker % (Auto) 6 Eos % (Auto) 0 Baso % (Auto) 1 Neut # (Auto) 16.7 H Lymph # (Auto) 2.1 Becker # (Auto) 1.3 H Eos # (Auto) 0.1 Baso # (Auto) 0.1 Immature Gran # (Auto) 1.35 H Absolute Nucleated RBC 0.00 Immature Gran % 6 H Nucleated RBC % 0 Sodium 140 Potassium 3.8 Chloride 100 Carbon Dioxide 24.6 Anion Gap 15 BUN 41 H Creatinine 4.4 H* Estim Creat Clear Calc 14.2 L eGFR 11 L* BUN/Creatinine Ratio 9 L Glucose 125 H Calculated Osmolality 290 Lactic Acid Calcium 9.2 Corrected Calcium 9.7 Phosphorus 6.5 H Magnesium 2.0 Total Bilirubin 0.4 AST 33 ALT 55 H Alkaline Phosphatase 87 Troponin I Total Protein 6.5 Albumin 3.4 L Globulin 3.1 Albumin/Globulin Ratio 1.1 L ABG Interpretation ABG results: 03/26/25 03/26/25 03/26/25 11:18 11:44 16:23 ABG pH 7.27 L Cancelled ABG pCO2 40 Cancelled ABG pO2 146 H Cancelled ABG HCO3 18 L Cancelled ABG O2 Saturation 100 H Cancelled ABG Base Excess -8 L Cancelled VBG pH 7.19 L VBG pCO2 48 VBG pO2 37 VBG Base Excess -10 L 03/26/25 03/27/25 03/27/25 18:43 00:17 03:42 ABG pH 7.16 L* D 7.24 L Cancelled ABG pCO2 58 H D 44 D Cancelled ABG pO2 68 L D 80 L Cancelled ABG HCO3 21 19 L Cancelled ABG O2 Saturation 90 L 96 Cancelled ABG Base Excess -9 L -8 L Cancelled VBG pH VBG pCO2 VBG pO2 VBG Base Excess 03/27/25 03/27/25 03/27/25 04:04 07:55 18:48 ABG pH 7.26 L 7.30 L ABG pCO2 43 37 ABG pO2 83 174 H D ABG HCO3 19 L 18 L ABG O2 Saturation 97 101 H ABG Base Excess -7 L -8 L VBG pH 7.21 L 7.31 L VBG pCO2 49 48 VBG pO2 54 52 VBG Base Excess -8 L -2 03/27/25 03/28/25 03/28/25 19:07 04:06 13:37 ABG pH 7.36 7.38 7.41 ABG pCO2 41 45 44 ABG pO2 79 L D 73 L 105 D ABG HCO3 23 27 H 27 H ABG O2 Saturation 97 96 99 H ABG Base Excess -2 1 2 VBG pH VBG pCO2 VBG pO2 VBG Base Excess 03/29/25 03/30/25 03/31/25 04:45 04:50 04:40 ABG pH 7.38 7.42 7.39 ABG pCO2 45 40 41 ABG pO2 72 L D 66 L 63 L ABG HCO3 27 H 26 25 ABG O2 Saturation 98 93 92 ABG Base Excess 1 2 0 VBG pH VBG pCO2 VBG pO2 VBG Base Excess 03/31/25 17:30 ABG pH 7.39 ABG pCO2 36 ABG pO2 80 L ABG HCO3 21 ABG O2 Saturation 96 ABG Base Excess -3 VBG pH VBG pCO2 VBG pO2 VBG Base Excess Quality Measures Quality Measures VTE prophylaxis Assessment & Plan Assessment Current Active Medications: Generic Name Dose Route Start Last Admin Trade Name Freq PRN Reason Stop Dose Admin Acetaminophen 650 mg 04/01/25 09:12 04/03/25 08:21 Acetaminophen 325 Mg Tablet PO 04/25/25 18:57 650 mg Q4HR PRN Administration Pain Scale 1-3 OR fever >100.4 Albuterol/Ipratropium 3 ml 03/27/25 01:00 04/04/25 06:31 Albuterol/Ipratropium (Duoneb) Rt Jennifer 3 Ml Nebu INH 04/26/25 00:59 3 ml Q6HRRT CRIS Administration Amlodipine Besylate 10 mg 04/02/25 09:00 04/03/25 08:22 Amlodipine Besylate 5 Mg Tablet PO 05/02/25 08:59 10 mg QDAY CRIS Administration Ascorbic Acid 250 mg 04/03/25 12:00 04/03/25 21:03 Ascorbic Acid 250 Mg Tablet PO 05/03/25 11:59 Not Given BID CRIS Aspirin 81 mg 04/01/25 09:30 04/03/25 08:22 Aspirin Ec 81 Mg Tabec PO 05/01/25 09:29 81 mg QDAY CRIS Administration Atorvastatin Calcium 80 mg 03/26/25 21:00 04/03/25 21:03 Atorvastatin Calcium 20 Mg Tablet PO 04/25/25 20:59 Not Given HS CRIS Carvedilol 6.25 mg 04/01/25 17:30 04/03/25 17:27 Carvedilol 3.125 Mg Tablet PO 05/01/25 17:29 Not Given BIDWM CRIS Dextrose 25 ml 03/26/25 20:20 Dextrose 50%-Water Inj 50 Ml Syringe IV 04/25/25 20:19 Q15MIN PRN BG 50-70 responsive npo pt Dextrose 50 ml 03/26/25 20:20 Dextrose 50%-Water Inj 50 Ml Syringe IV 04/25/25 20:19 Q15MIN PRN BG <50 OR BG <70 & pt unresponsive Glucagon 1 mg 03/26/25 20:20 Glucagon Inj 1 Mg Vial IM Q15MIN PRN BG <70, and no IV access Heparin Sodium (Porcine) 5,000 unit 03/27/25 14:00 04/04/25 05:39 Heparin Sod Inj 5000 Unit/Ml Vial SC 04/10/25 13:59 5,000 unit Q8HR CRIS Administration Heparin Sodium (Porcine) 2,600 unit 03/28/25 19:33 03/31/25 18:01 Heparin Sod Inj 1000 Unit/Ml Vial 10 Ml INDWELLCAT 04/11/25 19:32 2,600 unit X1 PRN Administration DIALYSIS Hydralazine HCl 25 mg 04/01/25 14:00 04/04/25 05:37 Hydralazine Hcl 25 Mg Tablet PO 05/01/25 13:59 Not Given TID CRIS Hydromorphone HCl 1 mg 04/03/25 15:33 04/04/25 03:44 Hydromorphone Inj 2 Mg/Ml Vial IVP 04/08/25 15:32 1 mg Q4HR PRN Administration PAIN SCALE 4-10(Mod-Sev Albumin Human 25 gm in 100 mls @ 100 mls/min 03/29/25 10:36 03/31/25 18:45 Albuminar-25 Ivpb IV Infused PRN PRN Infusion DIALYSIS Ceftriaxone Sodium/Dextrose 1 gm in 50 mls @ 100 mls/hr 04/01/25 09:00 04/03/25 19:19 Rocephin/D5w 1gm Iv Premix IV 04/08/25 08:59 Infused QDAY CRIS Infusion Insulin Degludec 24 unit 04/01/25 21:00 04/03/25 21:38 Insulin Degludec 5 Unit/0.05 Ml (Per 5 Units) [place] 05/01/25 20:59 Not Given HS [facility] Insulin Human Lispro 0 unit 04/04/25 06:00 04/04/25 05:36 Insulin Lispro (Admelog) 1 Unit/0.01 Ml Unit SC 05/04/25 05:59 Not Given Q6HR [facility] Protocol Labetalol HCl 10 mg 04/01/25 11:16 Labetalol Inj 5 Mg/Ml Vial 20 Ml IVP 05/01/25 11:29 Q4HR PRN if SBP>140 Mupirocin 0 gm 03/29/25 08:30 04/04/25 05:40 Mupirocin Oint 2% 15 Gm Tube TOP 04/05/25 08:29 1 applicatio TID [facility] Administration Vitamin B Complex/Vit C/Folic Acid 1 tab 04/03/25 12:00 04/03/25 13:17 Vit B12/Vit C/Fa (Nephrovite) Tablet PO 05/03/25 11:59 Not Given QDAY [facility] Zinc Sulfate 220 mg 04/03/25 12:00 04/03/25 13:17 Zinc Sulfate 220 Mg Capsule PO 04/17/25 11:59 Not Given QDAY [facility] Plan 59F with PMH of DM, HTN, asthma, drug use disorder, and a chronic right leg wound was brought to the ED after being found unresponsive at home where she was found to have acute encephalopathy with low GCS requiring intubation and ICU admission for ventilator support, pressor support for likely septic shock, and CRRT.. Patient found to have multi embolic disease involving multiple systems including brain and left distal extremity, acute and failure with the cause likely renal emboli. #Acute encephalopathy, multifactorial, related to metabolic derangement, substance use, and embolic CVA (Resolving) #Acute Multiple mbolic type foci occipital lobes, bilateral frontal and bilateral parietal lobe #Atrial septal aneurysm #PFO #Subarachnoid hemorrhage #Endocarditis #Tricuspid valve vegetation Patient came in with altered sensorium and head CT at the time showed multiple bilateral infarcts, likely embolic. Patient was weaned off sedation and extubated on 03/31/2025, tolerated well. Currently, patient is improving and is alert and oriented. Patient has extensive DVT in the left lower extremity also noted to have pulmonary embolism, patient might be having embolism through PFO and reaching the systemic circulation. TTE showed normal size left ventricle with mild apical and global hypokinesis LVEF 40-45%. Evidence of Tricuspid valve vegetation suggestive of endocarditis The RV is normal in size. The right ventricular systolic function is mildly decreased. Aortic valve sclerosis thickened wih mild aortic regurgitation. Mitral valve thickening with mild mitral regurgitation. SYLVIE (03/30/25) confirmed no vegetations. Noted to have atrial aneurysm bulging into left atrium, bubble study done showed PFO EEG from 04/02/25 shows diffuse slowing suggestive of a diffuse encephalopathy of vascular origin. Per neurology team, given PE and small PFO, PE could be the cause of embolism vs endocardititis but less likely as negative SYLVIE for vegation. Although leukocytosis noted, less likely secondary to endocarditis in origin and more likely secondary to ischemia vs less likely increased coagulopathy as no previous history of DVTs. Hematology Dr. Krishna was consulted who agreed with the current plan. MR venogram negative for any thrombus Plan: - Will continue atorvastatin and Aspirin for now - Start Vancomycin and cefepime 2g to cover for endocarditis (04/04/25-) - Cannot start on heparin drip as patient noted to have hemorrhagic infarcts on repeat CT head done on 03/30/2025. Repeat CT head from 04/02 showed stable multiple areas of subarachnoid hemorrhage compared to 04/01 - IVC filter placement is done on 03/31/2025 to prevent further embolic strokes through PFO from DVT - No need of urgent PFO closure as per Dr. Nayak. - PT and speech therapy - Pending hypercoaugulable workup due to suspected Antiphospholipid syndrome due to DVT and other infarcts (Called [facility], results are estimated to be out by Sunday 04/08) #Septic shock in settings of endocarditis with bacteremia (Resolved) # UTI At the time of admission, patient was noted to have bilateral lower extremity edema and bilateral diffuse inspiratory crackles -possible heart failure in the setting of methamphetamine abuse, diabetes, hypertension. Also noted to have temperature of 101.8 ?F at the time of admission, likely due to some ongoing infection. Fits into 2/3 qsofa criteria. Noted to have GCS less than 15 and respiratory rate 35/min. Suspecting sepsis worsening the underlying heart failure resulting in suspected possible combined septic and cardiogenic shock. DDx: Combined cardiogenic and septic shock Patient was started on Levophed and weaned off completely on 03/30/2025 WBC on admission 13.1, procalcitonin 43.23. UA showed turbid urine with 2+ proteinuria, 3+ glucosuria, 112 WBC, 4+ bacteria suggestive of UTI. Urine culture positive for E.coli, blood cultures negative. TTE showed vegetations of the trisupid valve concerning for endocarditis. WBC uptrending to 21.6 Initially patient was started on vancomycin and Zosyn [03/27-03/30], discontinued Vanco and Zosyn, Started on Rocephin (03/30-04/04) Plan: - Stop ceftriaxone 2 g IV once daily (03/30-) - Start Vancomycin and cefepime 2g - Will continue to monitor vitals # Acute hypoxic respiratory failure, resolving # Respiratory acidosis, resolved #Pneumonia Per patient family, patient does not have any previous history of respiratory problems and is not using any inhalers. Not a smoker. ABG at the time of admission showed pH 7.16, pCO2 58, pO2 68, FiO2 100%. Repeat ABG done on 03/27/2024 showed pH 7.3, pCO2 37, bicarb 18. Repeat ABGs done after 03/28/2025 is within normal limits. CTA chest Positive for multiple right lower pulmonary artery filling defects. Positive for left upper lobe pulmonary artery filling defects. No emboli in the main pulmonary artery segments. Pneumonia versus infarction in both lower lung zones. CXR shows bibasilar pneumonia DDx: Sepsis, acute encephalopathy, pulmonary edema, pulmonary embolism, combined. Patient was intubated, sedated and placed on mechanical ventilator on 03/26 and extubated on 03/31. Though patient had pulmonary embolism, patient oxygen needs is coming down. Currently saturating 90-96% at 4L. CTA abd&pelvis on 04/04 still reveals pneumonia at the left base Plan: - Continue ABx as above - Will continue oxygen as needed for now. #KINJAL #Acute renal failure likely 2/2 septic shock vs. renal emboli vs. rhabdomyolysis Patient does not follow-up any primary care doctor and unsure of her baseline kidney functions. Patient noted to have decreased urine output and oliguric since the time of admission. Creatinine at the time of admission is 2.8 --> 03/30, 2.4 --> 03/31, 3.1 --> 04/01, 4.9 --> 04/03, 5.5 DDx: Prerenal versus ATN in the setting of shock versus possible cardiorenal syndrome versus CKD in the setting of diabetes mellitus and hypertension versus embolic versus rhabdomyolysis Patient received HD yesterday; however, given persistant abnormal electrolyte, patient will have another HD today. Plan: - HD today - IV albumin prn - Held IV Bumex - Will continue to monitor urine output - Monitor renal panel - Avoid nephrotoxic agents (aminoglycosides, NSAIDs, radiographic contrast) - Adjust medication dosing based on patient's impaired renal function - Hold any KRISSY/ARB/diuretics - Multiple Pressure Riveter Operator, Dr. Zelaya is consulted and patient was started on CRRT through dialysis catheter placement in the right IJV on 03/27 - Received HD on 03/29, 03/30, 03/31, 04/03, 04/04 - Hold getting CT guided renal biopsy, to assess proteinuria # HFrEF, EF 40 to 45% #Substance Use Disorder Unsure whether patient is regular methamphetamine user, as family members is not aware of the use. Patient also have severe uncontrolled diabetes mellitus, which could also contribute to the ischemic heart disease and CHF. Plan: - Pending repeat TTE. Patient is hemodynamically stable and off ventilator, if still found to have HFrEF, needed to be started on GDMT - Patient should be started on GDMT but in the setting of ongoing acute kidney injury and recovering shock, will hold GDMT for now - Removed fluid through CRRT/HD #NSTEMI type type I (embolic DC) vs. Type 2 (demand ischemia 2/2 shock) In the setting of demand ischemia. Troponin at the time of admission is 0.427, peaked at 20.920 and later down trended. EKG did not show any ST-T wave changes Plan: - Will continue telemetry monitoring - Doctor Of Naprapathic Medicine, Dr. Nayak is consulted and will follow the recommendations # Pulmonary embolism # DVT Patient was noted to have mismatch between end-tidal CO2 and arterial CO2, also noted to have increased oxygen requirements on the ventilator for which CTA chest was ordered on 03/28/2025 CTA chest was positive for multiple right lower pulmonary artery filling defects. Positive for left upper lobe pulmonary artery filling defects. No emboli in the main pulmonary artery segments. Pneumonia versus infarction in both lower lung zones. Echocardiogram did not show any RV strain, though patient noted to have elevated troponin with peak level at 20.920, later down trended. EKG did not show any signs suggestive of pulmonary embolism. Venous doppler of LLE showed extensive chronic nonocclusive DVT involving the common femoral left superficial femoral, popliteal, peroneal, posterior tibial and greater saphenous veins. Tubular structures in the right popliteal fossa 6.0 cm in left popliteal fossa Plan: - Patient cannot be anticoagulated as of now as patient had hemorrhagic infarcts in the brain and is high risk for bleeding - IVC filter is by Dr. Murillo on 03/31/2025 - Patient is not a candidate of mechanical thrombectomy as of now and does not seem to be in right heart failure #Hypertension Patient noted to have history of hypertension but not using any medications before coming to the hospital BP initially elevated with SBP around 180-190. Now stablizied around 130s-140s. Plan - Continue amlodipine and carvedilol - Will continue to monitor blood pressures and titrate medications as needed #Abdominal pain #Umbilical hernia with incarcerated fat #Gallbladder sludge #Prominent pancreatic head #Right hilum mass #Right lower lobe mass #Left adrenal gland mass #Uterine fundal mass Patient reported diffuse abdominal pain today (04/03/25). On exam, diffuse TTP noted mainly in RUQ and LUQ with no peritinic signs. Her LUQ could be due to the renal infarct that has been noted on recent CT. Lactate: 1.1 [employer] was called while receiving HD. CTA abd&pelvis was ordered which showed gallbladder sludge and 22mm umbilical hernia with incarcerated fat and negative for any bowel ischemia. Patient was placed NPO and OG tube was inserted however later was pulled out by pt. General surgery Dr. Wood was consulted who recommended no surgical intervention at this time given current comorbidities and the fact that the hernia is most likely chronic. RUQ US was ordered due to concern for budd chiari which was negative for gallstones, however showed thickened gallbladder wall of 0.45cm and prominent pancreatic head of 3.5cm and moderate hepatomegaly. Below incidental findings were also noted in the CTA abd&pelvis: Mass contiguous with the right hilum 32 mm Mass in the right lower lobe 28 mm Nodular thickening left adrenal gland measuring 24 mm Atrophic anteverted uterus with calcified uterine fundal mass Plan: - CTM - Advanced diet to full liquid. We will assess for patient''s tolerance and assess for bowel movement and passing flatulence. Will consult surgery again if indicated. - Patient will need to follow up with PCP upon discharge for the incidental findings listed above # Transaminitis, resolving # Hyperbilirubinemia, resolved #Hepatitis C At the time of admission patient was found to have bilirubin of 1.6, AST 146, ALT 61 ---> 03/31, AST 76, ALT 74 --> 04/03, AST 42 , ALT 65 DDx: Fatty liver versus chronic liver disease versus viral hepatitis versus secondary to ongoing septic shock and possible suspected ischemia Tested positive for hepatitis C antibody. Liver ultrasound showed 10 mm gallstone, CBD enlarged 0.6 cm, liver 18.5 cm fatty infiltration Plan: - Will continue to monitor liver functions - Patient has to follow-up with apparatus cleaner on discharge on outpatient basis for follow-up on hepatitis C, currently does not suspect any active viral hepatitis # High anion gap metabolic acidosis # Lactic acidosis, resolved Likely in the setting of ongoing shock, likely due to sepsis. At the time of admission, anion gap is 19, lactate is 4.7 ---> 04/01, AG 22, Lactate 1.1 --> 04/03 AG 16, lactate 1.1 Anion gap improved on day of admission and lactic acidosis is slowly improving after starting CRRT. Plan: - Received CRRT on 03/27 and 03/28, HD on 03/29, 03/30, 03/31, 04/03, 04/04 - Will continue to monitor lab values # Rhabdomyolysis, resolved Patient happened to be on the floor lying down for 4 to 5 hours and also tested positive for methamphetamine on urine toxicology CK at the time of presentation is 9752 and received 2 L of fluid in the ED, as patient is fluid overloaded cannot give more fluids CK levels continue to trend down slowly to 1187. Plan: -CTM # Uncontrolled type 2 diabetes mellitus Patient is not following any primary care provider and not taking medications properly per patient's family. Blood glucose at the time of admission is 550 for which patient was given 10 units of lispro in the ED. The patient had high anion gap metabolic acidosis, tested negative for beta- hydroxybutyrate and DKA is ruled out. A1C: 13.6 Plan: - Started on insulin lispro sliding scale and degludec 12 units subcutaneous at bedtime, increased to 18 units on 03/30 based on morning blood sugars - Will titrate degludec according to FBS # Chronic right leg wound Likely from uncontrolled diabetes mellitus and venous congestion. On physical examination, noted 5 x 6 cm wound with well-healing granulation tissue. Arterial Doppler was ordered which showed no PAD in bilateral lower extremities Plan - Wound care consulted - Continue Vitamin C 250mg BID - Continue Zinc sulfate 220mg Qday x14 days (04/03-) - Nephro-Vu # History of asthma Unclear if patient is using inhalers or if she has recent exacerbations. Currently does not appear to be in any exacerbations Plan: -CTM Health Maintenance: Diet: Full liquid with cons carb GI prophylaxis: Protonix DVT prophylaxis: Heparin subcut 5000 units every 8 hours Antibiotics: Ceftriaxone CODE STATUS: Full Disposition: ICU downgrade to tele Case discussed with attending Dr. Garcia and senior resident Dr. Miguel Rand DO, PGY-1 Attending Provider Attestation/Addendum I Gemini Garcia MD reviewed the note and agree with the resident's assessment & plan with modifications/additions/exceptions as below. I have personally reviewed labs, imaging, home meds/prior records, examined the patient, formulated and discussed management plan with the IM team. Patient with history of substance use, cirrhosis and heavy smoking admitted for multiple embolic strokes with hemorrhagic conversion, DVT PE s/p IVC filter placement, patent [place]ig[place] ov[place], splenic infarct, hilar and adrenal masses, acute renal failure currently on HD along with HCAP. Overnight remained hemodynamically stable however had significant leukocytosis, continue antibiotic therapy with cefepime and vancomycin, pending hypercoagulability workup. Holding anticoagulation in the setting of recent hemorrhagic conversion of ischemic stroke. Appreciate neurology and nephrology input regarding management
[2025-04-04] MEDS: cefTRIAXone/D5w 1gm IV premix 1 GM/50 ML BAG IV (09:13)
[2025-04-04] MEDS: ASPIRIN EC 81 MG TABEC PO (09:13)
[2025-04-04] MEDS: VIT B12/Vit C/FA (Nephrovite) TABLET 1 TAB PO (09:14)
[2025-04-04] MEDS: ZINC SULFATE 220 MG CAPSULE PO (09:14)
[2025-04-04] MEDS: ASCORBIC ACID 250 MG TABLET PO ×2 (10:09→21:13)
--- NOTE | 2025-04-04 11:06 | ESPR_ITS ---
Documentation for date of: 04/04/25 Subjective Subjective Interval history: Reason for consult: KINJAL, oligoanuria-needing CRRT History of present illness: (patient was intubated during this telegraphic typewriter repairer's visit so the following narrative was constructed primarily via chart checking) Vashti Ross is a 59-year-old F with a PMH of diabetes, hypertension, asthma, substance use disorder (including opiates, probable methamphetamine, and marijuana) on methadone previously, and a chronic right leg wound brought in by ambulance from her home for altered mental status. Per ED rendition of EMS report, patient was noted to be altered with a respiratory rate of 4 en route to [facility]. A total of 8 mg of Narcan was administered at this time which initially improved mentation. Upon arrival, patient was noted to be somnolent and given an additional 0.4 mg of IV Narcan which made her more active but also more combative. She was also noted to be hypoxic and in respiratory distress upon arrival which led her to be put on BiPAP. During her agitated episode, patient endorsed that she hurt all over and loudly yelled that I gotta get out of here . She was eventually given 2 mg of IV Versed and put on restraints due to her continued agitation. Later, she was taken for an MRI which required removal of her BiPAP but upon removal a subsequent drop in O2 saturation to the low 90s was noted. It was deemed that her airway was not secure and the decision was made to intubate the patient. After the MRI was performed, patient was eventually admitted to the ICU. From family collateral, it was learned that patient's last known well time was 22:30 on 03/26. Patient had been found on the floor by her at 05:00 on 03/27 whereupon he tried to rouse her from her stupor, failed, called patient's sister to notify her about patient's condition, and finally left her to go to work. Patient's sister arrived around 09:00 and found patient still lying on the bathroom whereupon this telegraphic typewriter repairer assumes she called for an ambulance to bring the patient to the ED. In the ED, vitals showed: BP 107/78 HR 94 RR 35 Temp 101.3 SpO2 98% on 15 L BiPAP ED Course: CBC showed high WBC 13.1 w/ neutrophilic predominance but was otherwise WNL. Coagulation panel showed high PT 13.3. ABG showed acidic pH 7.27, normal pCO2 40, high pO2 146, low HCO3 18. CMP showed low carbon dioxide 18.1, high anion gap 19, high creatinine 2.8, low eGFR 19, very high blood glucose 550, very high lactic acid 4.7, high bilirubin 1.6, high AST 146, high ALT 61, high total creatine kinase 9752, very high troponin I 0.427, high BNP 297, and high procalcitonin 43.23. UA showed 2+ protein, 3+ glucose, 1+ ketones, 3+ blood, high RBC 10, high WBC 112, 3+ calcium oxalate crystals, 4+ bacteria, normal random sodium 34.2, normal random potassium 26, and low random chloride 23.2. UDS was (+) for amphetamines/methamphetamines and marijuana. Serological studies were reactive for hepatitis C antibody. Imaging: Head CT showed findings most consistent with acute right frontal lobe infarcts. Brain MRI showed multiple embolic-type foci of restricted diffusion in the b ilateral occipital lobes, bilateral frontal lobes, and bilateral parietal lobes most consistent with acute infarcts. CXR showed bibasilar pneumonia and findings suspicious for mild associated heart failure. Renal US showed small kidneys with right renal cortical thinning as well as mild right and moderate left renal parenchymal scar formation. Carotid doppler study showed 20-40% stenosis of the right internal carotid artery and 0-10% stenosis of the left internal carotid artery. EKG was unremarkable. In the ED, patient was given Duoneb Precedex, doxycycline, etomidate, Lasix, regular insulin, ketamine, Versed, naloxone, 1 L LR bolus, Zemuron, and 1 L NS bolus. Patient was intubated due to low GCS and was admitted to the ICU. Nephrology was consulted due to patient's need for urgent hemodialysis. Neurology is also following. Interval History 03/28/2025: No overnight events. Patient seen and examined at bedside; they remained intubated and unable to describe their current experience. Notable labs today include: WBC bump to 15.7 from 15.0, creatinine drop to 1.6 from 2.4, blood glucose 170, AST drop to 148 from 179, ALT dropped to 104 from 114, total CK drop to 3666 from 5964, and troponin I drop to 8.789 from 14.934. Urine culture was positive for E. coli and 1 of 2 blood cultures was positive for GPC's (current speciation still pending). She remains without urinary output and has required CRRT. Her echocardiogram came back today showing decreased ejection fraction of 40 to 45% along with vegetations of the tricuspid valve (suggestive of endocarditis). From nephrology's standpoint, patient will be receiving hemodialysis today. 03/29/2025: Patient seen and examined in the ICU. Intubated and unable to follow commands. On exam, she opens eyes spontaneously, extremities are cold and edematous. she remains on pressors,BP 90s/50s wbc 16.8, Cr 1.8 from 1.3.Extensive chronic nonocclusive DVT involving the common femoral left superficial femoral, popliteal, peroneal, posterior tibial and greater saphenous veins HD today 03/30/2025: Patient seen and examined in the ICU, yesterday she was noted to be following commands in the afternoon, today however she is on several sedative medications. She remains on pressors, BP 110s to 120s/60s, WBC 11 from 16. LFT downtrending. BUN 25 from 18, Cr 2.4 from 1.8. On exam her LLE has dark fourth toe and big toe suspect embolic etiology, pending IVC filter per primary team. 03/31/2025: Patient seen and examined in the ICU, pt is noted to be able to follow simple comands, she remains intubated. SBP 130s-160s. WBC 16 from 11, BUN 32 from 25, Cr 3.1 from 2.4. IVC filter placement scheduled for today. SYLVIE yesterday had showed atrial septal aneurysm, likely source of embolic strokes in the setting of DVT. Currently holding off on anticoagulation due to concern for hemorrhagic conversion of infarct per CARDS, Dr Fernandez recommended transfer to [facility] for closure of shunt. Plan for HD today. 04/01/2025: Patient seen and examined in the ICU. pt is extubated, oxymask in place. alert and oriented, answering questions appropriately and following commands. SBP 150s, WBC 17 from 16, CO 19, BUN 34, Cr 3.6, eGFR 14, Lactic acid 1.1, UOP 650 very clear urine. had 1x bumex yesterday, d/c transfer order for PFO repair, pt states that she has had 2 miscarrages in the past, query antiphospholipid syndrome. CTA chest/ AP Large splenic infarct with thrombus in upper lobe splenic arteries. Plan to hold HD. 04/02/2025: Patient seen and examined in the ICU. pt remains extubated, on NC. alert and oriented x3, SBP 130s -150s WBC 16, K 3.5, BUN 52 from 34, Cr 4.9 from 3.6, eGFR 10, phos 6.6. pending hypercoag labs. UOP 1700cc (urine protein creatnine ratio: 3.4) hold off on renal biopsy today, Plan to HOLD HD. Plan to give IV bumex and albumin. 04/03/2025: Patient seen and examined, was downgraded from the ICU. She is alert and oriented x3, appears uncomfortable on exam, reports abdominal pain, Afebrile, normotensive, wbc 16 K 3.6, BUN 59 Cr 5.5 from 4.9, on exam she has diffuse tenderness to palpation, pain out of proportion to exam, no rebound, no guarding. grimaces with light palpation, CTA AP 03/31 with Large splenic infarct with thrombus in upper lobe splenic arteries and PEs noted again, query wheter pt has mesinnteic ischemia vs ischemic colitis. Plan for HD today 04/04/2025, Patient seen and examined at bedside. She is A&Ox3, she appears more comfortable on exam, abdominal pain is resolved, CTA abdomen was negative for acute intrabdominal findings to expain abdominal pain. Plan for HD today given she had contrast yesterday, Cr 4.4 from 4.0, BUN 41 from 59. Exam Vital Signs Temp Pulse Resp BP Pulse Ox O2 Del Method O2 Flow Rate 98.0 F 78 18 119/66 90 L Nasal Cannula 4 04/04/25 10:27 04/04/25 11:04 04/04/25 10:27 04/04/25 11:04 04/04/25 10:27 04/04/25 08:00 04/04/25 10:27 FiO2 40 03/31/25 09:17 Narrative Exam General: alert and orientedx3 following commands, appears comfortable on exam HEENT: Normocephalic, atraumatic, mucous membranes dry, Heart: Regular rate and rhythm, no murmurs. Lungs: Clear to auscultation . Abdomen: Soft, nondistended, non tender, positive bowel sounds. ?No guarding or rebound tenderness. Neurologic: alert and oriented, Extremities: Noted chronic wound of 5 x 6 cm in the right lower extremity bandaged with kerlix. Noted tissue pressure injuries on the upper lateral right and left thigh. Also noted infected area in the right toe. Peripheral pulses are 2+ There is demarcated ischemia of left foot of 1st and 5th digit. L knee surgical scar. Objective Labs 04/06/25 04:52 04/06/25 04:52 Labs: Laboratory Results - last 24 hr 04/03/25 04/03/25 04/03/25 11:24 12:11 20:58 WBC RBC Hgb Hct MCV MCH MCHC RDW Std Deviation Plt Count Neut % (Auto) Lymph % (Auto) [place] % (Auto) Eos % (Auto) Baso % (Auto) Neut # (Auto) Lymph # (Auto) [place] # (Auto) Eos # (Auto) Baso # (Auto) Immature Gran # (Auto) Absolute Nucleated RBC Immature Gran % Nucleated RBC % Sodium 138 Potassium 3.8 Chloride 99 Carbon Dioxide 23.7 Anion Gap 15 BUN 34 H Creatinine 4.0 H D Estim Creat Clear Calc 15.6 L eGFR 12 L* BUN/Creatinine Ratio 9 L Glucose 132 H Calculated Osmolality 285 Lactic Acid 1.1 1.1 Calcium 9.1 Corrected Calcium 9.4 Phosphorus Magnesium Total Bilirubin 0.5 AST 39 H ALT 60 H Alkaline Phosphatase 88 Troponin I 0.130 H* D Total Protein 6.5 Albumin 3.6 Globulin 2.9 Albumin/Globulin Ratio 1.2 04/04/25 05:28 WBC 21.6 H D RBC 3.41 L Hgb 9.7 L Hct 31.2 L MCV 92 MCH 28.4 MCHC 31.1 RDW Std Deviation 51.4 H Plt Count 350 Neut % (Auto) 77 Lymph % (Auto) 10 [place] % (Auto) 6 Eos % (Auto) 0 Baso % (Auto) 1 Neut # (Auto) 16.7 H Lymph # (Auto) 2.1 [place] # (Auto) 1.3 H Eos # (Auto) 0.1 Baso # (Auto) 0.1 Immature Gran # (Auto) 1.35 H Absolute Nucleated RBC 0.00 Immature Gran % 6 H Nucleated RBC % 0 Sodium 140 Potassium 3.8 Chloride 100 Carbon Dioxide 24.6 Anion Gap 15 BUN 41 H Creatinine 4.4 H* Estim Creat Clear Calc 14.2 L eGFR 11 L* BUN/Creatinine Ratio 9 L Glucose 125 H Calculated Osmolality 290 Lactic Acid Calcium 9.2 Corrected Calcium 9.7 Phosphorus 6.5 H Magnesium 2.0 Total Bilirubin 0.4 AST 33 ALT 55 H Alkaline Phosphatase 87 Troponin I Total Protein 6.5 Albumin 3.4 L Globulin 3.1 Albumin/Globulin Ratio 1.1 L ABG Interpretation ABG results: 03/26/25 03/26/25 03/26/25 11:18 11:44 16:23 ABG pH 7.27 L Cancelled ABG pCO2 40 Cancelled ABG pO2 146 H Cancelled ABG HCO3 18 L Cancelled ABG O2 Saturation 100 H Cancelled ABG Base Excess -8 L Cancelled VBG pH 7.19 L VBG pCO2 48 VBG pO2 37 VBG Base Excess -10 L 03/26/25 03/27/25 03/27/25 18:43 00:17 03:42 ABG pH 7.16 L* D 7.24 L Cancelled ABG pCO2 58 H D 44 D Cancelled ABG pO2 68 L D 80 L Cancelled ABG HCO3 21 19 L Cancelled ABG O2 Saturation 90 L 96 Cancelled ABG Base Excess -9 L -8 L Cancelled VBG pH VBG pCO2 VBG pO2 VBG Base Excess 03/27/25 03/27/25 03/27/25 04:04 07:55 18:48 ABG pH 7.26 L 7.30 L ABG pCO2 43 37 ABG pO2 83 174 H D ABG HCO3 19 L 18 L ABG O2 Saturation 97 101 H ABG Base Excess -7 L -8 L VBG pH 7.21 L 7.31 L VBG pCO2 49 48 VBG pO2 54 52 VBG Base Excess -8 L -2 03/27/25 03/28/25 03/28/25 19:07 04:06 13:37 ABG pH 7.36 7.38 7.41 ABG pCO2 41 45 44 ABG pO2 79 L D 73 L 105 D ABG HCO3 23 27 H 27 H ABG O2 Saturation 97 96 99 H ABG Base Excess -2 1 2 VBG pH VBG pCO2 VBG pO2 VBG Base Excess 03/29/25 03/30/25 03/31/25 04:45 04:50 04:40 ABG pH 7.38 7.42 7.39 ABG pCO2 45 40 41 ABG pO2 72 L D 66 L 63 L ABG HCO3 27 H 26 25 ABG O2 Saturation 98 93 92 ABG Base Excess 1 2 0 VBG pH VBG pCO2 VBG pO2 VBG Base Excess 03/31/25 17:30 ABG pH 7.39 ABG pCO2 36 ABG pO2 80 L ABG HCO3 21 ABG O2 Saturation 96 ABG Base Excess -3 VBG pH VBG pCO2 VBG pO2 VBG Base Excess Quality Measures Quality Measures VTE prophylaxis Assessment & Plan Assessment Current Active Medications: Generic Name Dose Route Start Last Admin Trade Name Freq PRN Reason Stop Dose Admin Acetaminophen 650 mg 04/01/25 09:12 04/03/25 08:21 Acetaminophen 325 Mg Tablet PO 04/25/25 18:57 650 mg Q4HR PRN Administration Pain Scale 1-3 OR fever >100.4 Albuterol/Ipratropium 3 ml 03/27/25 01:00 04/04/25 06:31 Albuterol/Ipratropium (Duoneb) Rt Jennifer 3 Ml Nebu INH 04/26/25 00:59 3 ml Q6HRRT CRIS Administration Amlodipine Besylate 10 mg 04/02/25 09:00 04/04/25 09:14 Amlodipine Besylate 5 Mg Tablet PO 05/02/25 08:59 10 mg QDAY CRIS Administration Ascorbic Acid 250 mg 04/03/25 12:00 04/04/25 10:09 Ascorbic Acid 250 Mg Tablet PO 05/03/25 11:59 250 mg BID CRIS Administration Aspirin 81 mg 04/01/25 09:30 04/04/25 09:13 Aspirin Ec 81 Mg Tabec PO 05/01/25 09:29 81 mg QDAY CRIS Administration Atorvastatin Calcium 80 mg 03/26/25 21:00 04/03/25 21:03 Atorvastatin Calcium 20 Mg Tablet PO 04/25/25 20:59 Not Given HS CRIS Carvedilol 6.25 mg 04/01/25 17:30 04/04/25 09:14 Carvedilol 3.125 Mg Tablet PO 05/01/25 17:29 6.25 mg BIDWM CRIS Administration Dextrose 25 ml 03/26/25 20:20 Dextrose 50%-Water Inj 50 Ml Syringe IV 04/25/25 20:19 Q15MIN PRN BG 50-70 responsive npo pt Dextrose 50 ml 03/26/25 20:20 Dextrose 50%-Water Inj 50 Ml Syringe IV 04/25/25 20:19 Q15MIN PRN BG <50 OR BG <70 & pt unresponsive Glucagon 1 mg 03/26/25 20:20 Glucagon Inj 1 Mg Vial IM Q15MIN PRN BG <70, and no IV access Heparin Sodium (Porcine) 5,000 unit 03/27/25 14:00 04/04/25 05:39 Heparin Sod Inj 5000 Unit/Ml Vial SC 04/10/25 13:59 5,000 unit Q8HR CRIS Administration Heparin Sodium (Porcine) 2,600 unit 03/28/25 19:33 03/31/25 18:01 Heparin Sod Inj 1000 Unit/Ml Vial 10 Ml INDWELLCAT 04/11/25 19:32 2,600 unit X1 PRN Administration DIALYSIS Hydralazine HCl 25 mg 04/01/25 14:00 04/04/25 05:37 Hydralazine Hcl 25 Mg Tablet PO 05/01/25 13:59 Not Given TID CRIS Hydromorphone HCl 1 mg 04/03/25 15:33 04/04/25 11:00 Hydromorphone Inj 2 Mg/Ml Vial IVP 04/08/25 15:32 1 mg Q4HR PRN Administration PAIN SCALE 4-10(Mod-Sev Albumin Human 25 gm in 100 mls @ 100 mls/min 03/29/25 10:36 03/31/25 18:45 Albuminar-25 Ivpb IV Infused PRN PRN Infusion DIALYSIS Ceftriaxone Sodium/Dextrose 1 gm in 50 mls @ 100 mls/hr 04/01/25 09:00 04/04/25 09:13 Rocephin/D5w 1gm Iv Premix IV 04/08/25 08:59 100 mls/hr QDAY CRIS Administration Insulin Degludec 24 unit 04/01/25 21:00 04/03/25 21:38 Insulin Degludec 5 Unit/0.05 Ml (Per 5 Units) SC 05/01/25 20:59 Not Given HS CRIS Insulin Human Lispro 0 unit 04/04/25 06:00 04/04/25 05:36 Insulin Lispro (Admelog) 1 Unit/0.01 Ml Unit SC 05/04/25 05:59 Not Given Q6HR [facility] Protocol Labetalol HCl 10 mg 04/01/25 11:16 Labetalol Inj 5 Mg/Ml Vial 20 Ml IVP 05/01/25 11:29 Q4HR PRN if SBP>140 Mupirocin 0 gm 03/29/25 08:30 04/04/25 05:40 Mupirocin Oint 2% 15 Gm Tube TOP 04/05/25 08:29 1 applicatio TID CRIS Administration Vitamin B Complex/Vit C/Folic Acid 1 tab 04/03/25 12:00 04/04/25 09:14 Vit B12/Vit C/Fa (Nephrovite) Tablet PO 05/03/25 11:59 1 tab QDAY CRIS Administration Zinc Sulfate 220 mg 04/03/25 12:00 04/04/25 09:14 Zinc Sulfate 220 Mg Capsule PO 04/17/25 11:59 220 mg QDAY CRIS Administration Plan Vashti Ross is a 59-year-old F with a PMH of diabetes, hypertension, asthma, substance use disorder (including opiates, probable methamphetamine, and marijuana) on methadone previously, and a chronic right leg wound brought in by ambulance from her home for altered mental status. Patient was intubated due to low GCS and was admitted to the ICU. echo with tricuspid vegitations and EF 40- 45%, pt with extensive PE and extensive non occlusive DVT of LLE, SYLVIE revealed atrial septal aneurysm, likely source of embolic strokes in the setting of DVT. per cards, holding off on anticoagulation due to concern for hemorrhagic conversion of infarct. s/p IVC filter, found to have borderline nephrotic range proteinuria, abdominal pain resolved, CTA AP without new intrabdominal findings, HD today. #KINJAL vs. KINJAL on CKD vs. CKD Stage IV #likely 2/2 multifactorial etiologies including intravascular depletion, diabetic nephropathy, blood pressure derangements, glomerular diseases, sepsis- induced ATN, rhabdomyolysis, cardiorenal syndrome, crystalline nephropathy associated with oxalate, or atheroembolic disease #borderline nephrotic range proteinuria #query ischemic ATN #Rhabdomyolysis Admission creatinine 2.8 (baseline: unknown), eGFR 19 Other notable labs include: blood glucose 550, total CK 9752, troponin 0.427, UDS(+) for amphetamines/methamphetamines on 03/29 BUN 18 from 12, Cr 1.8 from 1.3 on 03/30 BUN 24 from 18, Cr 2.4 from 1.8 on 03/31 BUN 32 from 24, Cr 3.1 from 2.4 on 04/01 BUN 34 from 32, Cr 3.6 from 3.1, 650 UOP clear and dilute, UrProt:Cr: 3.4. on 04/02 BUN 54 from 38, Cr 4.9 from 4.5, UOP 1770 clear and dilute on 04/03 BUN 59, Cr 5.5 from 4.9, UOP 650- CTA done on 04/04 BUN 41, Cr 4.4 from 4.0, UOP is unmeasured HD: 03/28 CRRT, HD 03/29, 03/30, 03/31, 04/03, 04/04 Treatment Plan - HD today (pt had IV contrast 04/03) - IV albumin -Monitor renal panel -Avoid nephrotoxic agents (aminoglycosides, NSAIDs, radiographic contrast) -Adjust medication dosing based on patient's impaired renal function -Hold any KRISSY/ARB/diuretics #Other medical problems #CVA #subarachnoid hemorrhage #Acute encephalopathy #NSTEMI, Type 1 vs Type 2 #query APS (hx of miscarriages) multiple thrombi, lung, spleen, LE, -consulted Dr Krishna #Multiple PE - CTA Positive for multiple right lower lobe pulmonary artery and left upper lobe pulmonary artery emboli #Extensive nonocclusive DVT LLE -s/p IVC filter #CHF - echo with EF 40 -45% #Endocarditis -TTE with tricuspid vegitations #Atrial aneurysm - SYLVIE with Atrial septal aneurysm present and bubble study positive for PFO especially with increased right atrial pressure. #Large splenic infarct with thrombus in upper lobe splenic arteries #query acute mesenteric ischemia vs ischemic colitis on 04/03 pt has diffuse abdominal pain out of proportion to exam. #Acute hypoxic respiratory failure- resolved #Respiratory acidosis #Community-acquired pneumonia #Transaminitis + hyperbilirubinemia #HAGMA #T2DM #PNA #Leukocytosis persistent #septic shock- resolved, off pressors, #Left toes gangreen vs Atheroembolism of left lower extremity toes -Continue management per primary care team (ICU) Plan discussed with nephrology attending Dr. Nathalie Vallejo MD Internal Medicine PGY-1 Attending Provider Attestation/Addendum Patient seen and examined with resident physician Dr. Vallejo. Note reviewed, agree with findings and recommendations. Patient currently seen in ICU. Currently on pressors. Significant edema noted. Patient received 2 days of CRRT, 3 conventional dialysis.. at bedside. 04/05/2025 moved out of ICU. Patient has hypercoagulable // thrombotic disorder. Patient has both arterial infarcts, venous thrombosis cannot give heparin due to subarachnoid hemorrhage. CT brain yesterday showed questionable subarachnoid hemorrhage. CT angiography did not show any mesenteric occlusion. Did receive 100 mL Isovue contrast. Did get receive dialysis yesterday. Abdominal pain much better.More alert. Will need a permacath on Sunday if WBC is better. No recovery in the kidney function yet. Suspect ischemic ATN.
--- NOTE | 2025-04-04 13:07 | PD.SURCONS ---
HPI Consult details Consult date: 04/04/25 Reason for consultation narrative: Incarcerated umbilical hernia History of present illness: 59-year-old female with history of diabetes was admitted 9 days ago with respiratory failure acute kidney injury and sepsis. During hospitalization patient was intubated due to respiratory failure and required pressor support for sepsis. She was started on dialysis for renal failure. She was noted to have multiple thromboembolic events causing multifocal infarcts in the brain, large splenic infarct and pulmonary embolism. Recently she was noted to have subarachnoid hemorrhage. She could not be anticoagulated so an IVC filter was placed. A CT scan was obtained that revealed fat-containing incarcerated umbilical hernia without evidence of bowel obstruction. Review of Systems Review of Systems ROS Unobtainable: unobtainable due to mental status Past Medical History Surgical History OTHER SURGICAL HX: Left knee replacement Meds Home Medications and Allergies Home Medications ?Medication ?Instructions ?Recorded ?Confirmed ?Type metformin 500 mg tablet 500 mg PO DAILY 04/04/25 04/04/25 History Allergies Allergy/AdvReac Type Severity Reaction Status Date / Time No Known Allergies Allergy Verified 03/26/25 11:03 Exam Vital Signs Temp Pulse Resp BP Pulse Ox O2 Del Method O2 Flow Rate 97.7 F 69 18 126/56 L 94 L Nasal Cannula 5 04/04/25 12:58 04/04/25 12:58 04/04/25 12:58 04/04/25 12:58 04/04/25 12:58 04/04/25 08:00 04/04/25 12:58 FiO2 40 03/31/25 09:17 Constitutional Constitutional: no acute distress Routine Abdominal Exam Comments: Abdomen is soft and nondistended. She has an umbilical hernia that is most likely chronically incarcerated without overlying erythema or edema Assessment & Plan Additional Assessment Additional comments: Chronically incarcerated umbilical hernia without evidence of bowel obstruction Plan Patient is at extreme high risk for surgical intervention at this time due to her PE, subarachnoid hemorrhage and CVA. Her umbilical hernia is most likely chronic and does not require intervention at this time. I will sign off, please call for any questions.
[2025-04-04] MEDS: VANCOMYCIN/WATER 1250 MG IVPB 250 ML 120 MG IV (14:16)
[2025-04-04] MEDS: CEFEPIME INJ 2 GM in SODIUM CHLORIDE 0.9% (Popper) 50 ML IV (14:42)
--- NOTE | 2025-04-04 15:31 | PC.SS ---
1531-Per afternoon rounding; Pt is staying. Will be doing dialysis today. No d/c date at this time.
[2025-04-04] MEDS: INSULIN LISPRO (AdmeLOG) 1 UNIT/0.01 ML UNIT SC (17:46)
[2025-04-04] MEDS: INSULIN DEGLUDEC 5 UNIT/0.05 ML (PER 5 UNITS) 24 UNIT SC (21:04)
[2025-04-04] MEDS: ATORVASTATIN CALCIUM 20 MG TABLET 80 MG PO (21:13)
[2025-04-05] VITALS (15 sets, daily range): BP systolic 118–142; BP diastolic 61–93; PULSE 74–101; RESP 13–22; TEMP 36.4–37.4; O2SAT 91–100; BMI 35.7
[2025-04-05] MEDS: ALBUTEROL/IPRATROPIUM (Duoneb) RT SOL 3 ML NEBU INH ×4 (01:08→18:31)
[2025-04-05] MEDS: HYDROmorphone INJ 2 MG/ML VIAL 1 MG IVP ×4 (04:14→19:38)
[2025-04-05] MEDS: HEPARIN SOD INJ 5000 UNIT/ML VIAL SC ×2 (06:01→14:10)
[2025-04-05] MEDS: MUPIROCIN OINT 2% 15 GM TUBE TOP (06:02)
[2025-04-05 06:14] LABS: Basophils # (Auto) 0.2 Thou/mm3 (0.0-0.2); Basophils % (Auto) 1 % (0-2.5); Eosinophils # (Auto) 0.2 Thou/mm3 (0.0-0.5); Eosinophils % (Auto) 1 % (0-10); Hematocrit 31.3 % (36.0-46.0); Hemoglobin 9.6 g/dL (12.0-16.0); Immature Granulocytes Auto 1.28 Thou/mm3 (0.00-0.00); Lymphocytes # (Auto) 2.3 Thou/mm3 (1.0-4.8); Lymphocytes % (Auto) 13 % (10-50); Mean Corpuscular HGB Conc 30.7 g/dl (31.0-37.0); Mean Corpuscular Hemoglobin 28.4 pg (25.0-35.0); Mean Corpuscular Volume 93 fL (80-100); Monocytes # (Auto) 1.4 Thou/mm3 (0.0-0.8); Monocytes % (Auto) 8 % (0-12); Neutrophils # (Auto) 12.2 Thou/mm3 (1.8-7.7); Neutrophils % (Auto) 70 % (37-80); Nucleated Red Blood Cell # 0.00 Thou/mm3 (0.00-0.00); Nucleated Red Blood Cell % 0 /100 WBC (0); Platelet Count 418 Thou/mm3 (140-440); RDW Standard Deviation 52.3 fL (36.4-46.3); Red Blood Count 3.38 Miln/mm3 (4.00-5.20); White Blood Count 17.6 Thou/mm3 (3.6-11.0)
[2025-04-05 07:06] LABS: Alanine Aminotransferase 43 U/L (10-49); Albumin, Serum 3.4 gm/dL (3.5-5.0); Albumin/Globulin Ratio 1.2 (1.2-2.2); Alkaline Phosphatase 90 U/L (46-116); Anion Gap 17 (7-16); Aspartate Amino Transferase 33 U/L (0-34); BUN/Creatinine Ratio 10 Ratio (12-20); Bilirubin,Total 0.4 mg/dL (0.3-1.2); Blood Urea Nitrogen 37 mg/dL (9-23); Calcium 9.3 mg/dL (8.3-10.6); Calcium (Corrected) 9.8 mg/dL (8.5-10.1); Carbon Dioxide 24.5 mMol/L (20.0-31.0); Chloride 97 mMol/L (98-107); Creatinine (Component) 3.7 mg/dL (0.6-1.3); Estimated Creatinine Clearance 16.7 mL/min (>60); Globulin 2.9 gm/dL (2.3-3.5); Glucose 141 mg/dL (74-106); Magnesium 1.8 mg/dL (1.6-2.6); Osmolality,Calculated 286 (275-295); Phosphorous 6.1 mg/dL (2.4-5.1); Potassium 3.9 mMol/L (3.4-5.1); Sodium 138 mMol/L (136-145); Total Protein 6.3 gm/dL (5.7-8.2); eGFR 14 See Note
--- NOTE | 2025-04-05 07:24 | ESPR_ITS ---
<Statement entered by Mele Rivera MD - 04/05/25 15:21> Senior Resident Attestation: I supervised/discussed management plan with phd intern physician Dr. Molina, and was involved in the care of this patient. I personally saw and examined the patient and discussed the assessment and plan with the entire medicine team, including my attending. I agree with the assessment and plan as documented. Patient is white cell count is improving after initiation of cefepime and vancomycin yesterday. Discussed with nephrology, will defer permanent catheter insertion tomorrow, plan is to do hemodialysis and remove temporary catheter for several days, make sure blood cultures are negative and will place new permacath after. Patient's care was discussed with attending physician, Dr. Garcia. Mele Rivera MD PGY-3. Documentation for date of: 04/05/25 Subjective Subjective Interval history: Afebrile, HR 67-101, RR 15-22, BP 105/63 - 136/65, 97% spO2 on 5L Patient evaluated at bedside. Started Sevelamer 800 mg TID with meals for elevated phosphate despite HD yesterday. SYLVIE showed no vegetations. Will continues to treat hospital-acquired PNA with Cefepime and Vancomycin. Re-ordered blood cx x2 and sputum cx + gram stain given that patient continues to have elevated WBC. Cannot put in new dialysis catheter if risk of bacteremia. Will f/u with cultures prior to putting in new tunneled catheter. Will f/u with neurology to determine when to start blood thinner. Dr. Oliver rec another CT head w/o for confirmation of stable subarachnoid hemorrhage. Exam Vital Signs Temp Pulse Resp BP Pulse Ox O2 Del Method O2 Flow Rate 97.6 F 100 20 121/62 97 Nasal Cannula 5 04/05/25 04:00 04/05/25 06:27 04/05/25 06:27 04/05/25 06:01 04/05/25 06:27 04/05/25 04:00 04/05/25 06:27 FiO2 40 04/05/25 04:00 Narrative Exam General: Off sedation, appears comfortable. Poor hygiene. A/O x2 HEENT: Normocephalic, atraumatic, mucous membranes moist. Heart: Regular rate and rhythm, no murmurs. Lungs: Clear to auscultation with no wheezing or crackles. Abdomen: Soft, mildly distended, mild discomfort to palpation throughout. No guarding or rebound tenderness. Neurologic: Bilateral pupils are equal and reacting to light. Able to move all extremities. Muscle strength 4/5 throughout. Extremities: Noted surgical scar on the left knee likely from TKR. Noted chronic wound of 5 x 6 cm in the right lower extremity. Noted tissue pressure injuries on the upper lateral right and left thigh. Also noted infected area in the right toe and left 1st and 5th toes. Skin: No rash or ecchymoses. Objective Labs 04/05/25 05:00 04/05/25 05:47 Labs: Laboratory Results - last 24 hr 04/05/25 04/05/25 05:00 05:47 WBC 17.6 H RBC 3.38 L Hgb 9.6 L Hct 31.3 L MCV 93 MCH 28.4 MCHC 30.7 L RDW Std Deviation 52.3 H Plt Count 418 D Neut % (Auto) 70 Lymph % (Auto) 13 [place] % (Auto) 8 Eos % (Auto) 1 Baso % (Auto) 1 Neut # (Auto) 12.2 H Lymph # (Auto) 2.3 [place] # (Auto) 1.4 H Eos # (Auto) 0.2 Baso # (Auto) 0.2 Immature Gran # (Auto) 1.28 H Absolute Nucleated RBC 0.00 Immature Gran % 7 H Nucleated RBC % 0 Sodium 138 Potassium 3.9 Chloride 97 L Carbon Dioxide 24.5 Anion Gap 17 H BUN 37 H Creatinine 3.7 H D Estim Creat Clear Calc 16.7 L eGFR 14 L* BUN/Creatinine Ratio 10 L Glucose 141 H Calculated Osmolality 286 Calcium 9.3 Corrected Calcium 9.8 Phosphorus 6.1 H Magnesium 1.8 Total Bilirubin 0.4 AST 33 ALT 43 Alkaline Phosphatase 90 Total Protein 6.3 Albumin 3.4 L Globulin 2.9 Albumin/Globulin Ratio 1.2 ABG Interpretation ABG results: 03/26/25 03/26/25 03/26/25 11:18 11:44 16:23 ABG pH 7.27 L Cancelled ABG pCO2 40 Cancelled ABG pO2 146 H Cancelled ABG HCO3 18 L Cancelled ABG O2 Saturation 100 H Cancelled ABG Base Excess -8 L Cancelled VBG pH 7.19 L VBG pCO2 48 VBG pO2 37 VBG Base Excess -10 L 03/26/25 03/27/25 03/27/25 18:43 00:17 03:42 ABG pH 7.16 L* D 7.24 L Cancelled ABG pCO2 58 H D 44 D Cancelled ABG pO2 68 L D 80 L Cancelled ABG HCO3 21 19 L Cancelled ABG O2 Saturation 90 L 96 Cancelled ABG Base Excess -9 L -8 L Cancelled VBG pH VBG pCO2 VBG pO2 VBG Base Excess 03/27/25 03/27/25 03/27/25 04:04 07:55 18:48 ABG pH 7.26 L 7.30 L ABG pCO2 43 37 ABG pO2 83 174 H D ABG HCO3 19 L 18 L ABG O2 Saturation 97 101 H ABG Base Excess -7 L -8 L VBG pH 7.21 L 7.31 L VBG pCO2 49 48 VBG pO2 54 52 VBG Base Excess -8 L -2 03/27/25 03/28/25 03/28/25 19:07 04:06 13:37 ABG pH 7.36 7.38 7.41 ABG pCO2 41 45 44 ABG pO2 79 L D 73 L 105 D ABG HCO3 23 27 H 27 H ABG O2 Saturation 97 96 99 H ABG Base Excess -2 1 2 VBG pH VBG pCO2 VBG pO2 VBG Base Excess 03/29/25 03/30/25 03/31/25 04:45 04:50 04:40 ABG pH 7.38 7.42 7.39 ABG pCO2 45 40 41 ABG pO2 72 L D 66 L 63 L ABG HCO3 27 H 26 25 ABG O2 Saturation 98 93 92 ABG Base Excess 1 2 0 VBG pH VBG pCO2 VBG pO2 VBG Base Excess 03/31/25 17:30 ABG pH 7.39 ABG pCO2 36 ABG pO2 80 L ABG HCO3 21 ABG O2 Saturation 96 ABG Base Excess -3 VBG pH VBG pCO2 VBG pO2 VBG Base Excess Quality Measures Quality Measures VTE prophylaxis Assessment & Plan Assessment Current Active Medications: Generic Name Dose Route Start Last Admin Trade Name Freq PRN Reason Stop Dose Admin Acetaminophen 650 mg 04/01/25 09:12 04/03/25 08:21 Acetaminophen 325 Mg Tablet PO 04/25/25 18:57 650 mg Q4HR PRN Administration Pain Scale 1-3 OR fever >100.4 Albuterol/Ipratropium 3 ml 03/27/25 01:00 04/05/25 06:27 Albuterol/Ipratropium (Duoneb) Rt Jennifer 3 Ml Nebu INH 04/26/25 00:59 3 ml Q6HRRT CIRS Administration Amlodipine Besylate 10 mg 04/02/25 09:00 04/04/25 09:14 Amlodipine Besylate 5 Mg Tablet PO 05/02/25 08:59 10 mg QDAY CRIS Administration Ascorbic Acid 250 mg 04/03/25 12:00 04/04/25 21:13 Ascorbic Acid 250 Mg Tablet PO 05/03/25 11:59 250 mg BID CRIS Administration Aspirin 81 mg 04/01/25 09:30 04/04/25 09:13 Aspirin Ec 81 Mg Tabec PO 05/01/25 09:29 81 mg QDAY CRIS Administration Atorvastatin Calcium 80 mg 03/26/25 21:00 04/04/25 21:13 Atorvastatin Calcium 20 Mg Tablet PO 04/25/25 20:59 80 mg HS CRIS Administration Carvedilol 6.25 mg 04/01/25 17:30 04/04/25 17:45 Carvedilol 3.125 Mg Tablet PO 05/01/25 17:29 Not Given BIDWM CRIS Dextrose 25 ml 03/26/25 20:20 Dextrose 50%-Water Inj 50 Ml Syringe IV 04/25/25 20:19 Q15MIN PRN BG 50-70 responsive npo pt Dextrose 50 ml 03/26/25 20:20 Dextrose 50%-Water Inj 50 Ml Syringe IV 04/25/25 20:19 Q15MIN PRN BG <50 OR BG <70 & pt unresponsive Glucagon 1 mg 03/26/25 20:20 Glucagon Inj 1 Mg Vial IM Q15MIN PRN BG <70, and no IV access Heparin Sodium (Porcine) 5,000 unit 03/27/25 14:00 04/05/25 06:01 Heparin Sod Inj 5000 Unit/Ml Vial SC 04/10/25 13:59 5,000 unit Q8HR CRIS Administration Heparin Sodium (Porcine) 2,600 unit 03/28/25 19:33 03/31/25 18:01 Heparin Sod Inj 1000 Unit/Ml Vial 10 Ml INDWELLCAT 04/11/25 19:32 2,600 unit X1 PRN Administration DIALYSIS Hydralazine HCl 25 mg 04/01/25 14:00 04/05/25 06:01 Hydralazine Hcl 25 Mg Tablet PO 05/01/25 13:59 Not Given TID CRIS Hydromorphone HCl 1 mg 04/03/25 15:33 04/05/25 04:14 Hydromorphone Inj 2 Mg/Ml Vial IVP 04/08/25 15:32 1 mg Q4HR PRN Administration PAIN SCALE 4-10(Mod-Sev Albumin Human 25 gm in 100 mls @ 100 mls/min 03/29/25 10:36 03/31/25 18:45 Albuminar-25 Ivpb IV Infused PRN PRN Infusion DIALYSIS Cefepime HCl 2 gm/ Sodium 50 mls @ 100 mls/hr 04/04/25 12:45 04/04/25 14:42 Chloride IV 04/11/25 12:44 100 mls/hr QDAY@1800 CRIS Administration Insulin Degludec 24 unit 04/01/25 21:00 04/04/25 21:04 Insulin Degludec 5 Unit/0.05 Ml (Per 5 Units) MO 05/01/25 20:59 24 unit HS [facility] Administration Insulin Human Lispro 0 unit 04/04/25 21:00 04/04/25 20:53 Insulin Lispro (Admelog) 1 Unit/0.01 Ml Unit MO 05/04/25 20:59 Not Given ACHS [facility] Protocol Labetalol HCl 10 mg 04/01/25 11:16 Labetalol Inj 5 Mg/Ml Vial 20 Ml IVP 05/01/25 11:29 Q4HR PRN if SBP>140 Mupirocin 0 gm 03/29/25 08:30 04/05/25 06:02 Mupirocin Oint 2% 15 Gm Tube TOP 04/05/25 08:29 1 applicatio TID CRIS Administration Pharmacy Consult 1 each 04/04/25 12:30 Vancomycin Pharmacy To Dose 1 Each Each IV 05/04/25 12:29 QDAY PRN PROTOCOL Vitamin B Complex/Vit C/Folic Acid 1 tab 04/03/25 12:00 04/04/25 09:14 Vit B12/Vit C/Fa (Nephrovite) Tablet PO 05/03/25 11:59 1 tab QDAY CRIS Administration Zinc Sulfate 220 mg 04/03/25 12:00 04/04/25 09:14 Zinc Sulfate 220 Mg Capsule PO 04/17/25 11:59 220 mg QDAY CRIS Administration Plan 59F with PMH of DM, HTN, asthma, drug use disorder, and a chronic right leg wound was brought to the ED after being found unresponsive at home where she was found to have acute encephalopathy with low GCS requiring intubation and ICU admission for ventilator support, pressor support for likely septic shock, and CRRT.. Patient found to have multi embolic disease involving multiple systems including brain and left distal extremity, acute and failure with the cause likely renal emboli. #Acute encephalopathy, multifactorial, related to metabolic derangement, substance use, and embolic CVA (Resolving) #Acute Multiple embolic type foci occipital lobes, bilateral frontal and bilateral parietal lobe #Atrial septal aneurysm #PFO #Subarachnoid hemorrhage #Endocarditis - r/o #Tricuspid valve vegetation - r/o Patient came in with altered sensorium and head CT at the time showed multiple bilateral infarcts, likely embolic. Patient was weaned off sedation and extubated on 03/31/2025, tolerated well. Currently, patient is improving and is alert and oriented. Patient has extensive DVT in the left lower extremity also noted to have pulmonary embolism, patient might be having embolism through PFO and reaching the systemic circulation. TTE showed normal size left ventricle with mild apical and global hypokinesis LVEF 40-45%. Evidence of Tricuspid valve vegetation suggestive of endocarditis The RV is normal in size. The right ventricular systolic function is mildly decreased. Aortic valve sclerosis thickened wih mild aortic regurgitation. Mitral valve thickening with mild mitral regurgitation. SYLVIE (03/30/25) confirmed no vegetations. Noted to have atrial aneurysm bulging into left atrium, bubble study done showed PFO EEG from 04/02/25 shows diffuse slowing suggestive of a diffuse encephalopathy of vascular origin. Per neurology team, given PE and small PFO, PE could be the cause of embolism vs endocardititis but less likely as negative SYLVIE for vegation. Although leukocytosis noted, less likely secondary to endocarditis in origin and more likely secondary to ischemia vs less likely increased coagulopathy as no previous history of DVTs. Hematology Dr. Krishna was consulted who agreed with the current plan. MR venogram negative for any thrombus Plan: - Will continue atorvastatin and Aspirin for now - Continue Vancomycin and cefepime 2g to cover for HAP (04/04/25-) - Cannot start on heparin drip as patient noted to have hemorrhagic infarcts on repeat CT head done on 03/30/2025. Repeat CT head from 04/02 showed stable multiple areas of subarachnoid hemorrhage compared to 04/01 - IVC filter placement is done on 03/31/2025 to prevent further embolic strokes through PFO from DVT - No need of urgent PFO closure as per Dr. Nayak. - PT and speech therapy - Pending hypercoaugulable workup due to suspected Antiphospholipid syndrome due to DVT and other infarcts (Called [facility], results are estimated to be out by Sunday 04/08) - Re-ordered blood cx x2 and sputum cx + gram stain given that patient continues to have elevated WBC. - Pending CT head w/o #Septic shock in settings of Hospital-Acquired PNA (Resolved) # UTI At the time of admission, patient was noted to have bilateral lower extremity edema and bilateral diffuse inspiratory crackles -possible heart failure in the setting of methamphetamine abuse, diabetes, hypertension. Also noted to have temperature of 101.8 ?F at the time of admission, likely due to some ongoing infection. Fits into 2/3 qsofa criteria. Noted to have GCS less than 15 and respiratory rate 35/min. Suspecting sepsis worsening the underlying heart failure resulting in suspected possible combined septic and cardiogenic shock. DDx: Combined cardiogenic and septic shock Patient was started on Levophed and weaned off completely on 03/30/2025 WBC on admission 13.1, procalcitonin 43.23. UA showed turbid urine with 2+ proteinuria, 3+ glucosuria, 112 WBC, 4+ bacteria suggestive of UTI. Urine culture positive for E.coli, blood cultures negative. TTE showed vegetations of the trisupid valve concerning for endocarditis. WBC uptrending to 21.6 Initially patient was started on vancomycin and Zosyn [03/27-03/30], discontinued Vanco and Zosyn, Started on Rocephin (03/30-04/04) Plan: - Vancomycin (pharmacy to dose) cefepime 2g - Will continue to monitor vitals # Acute hypoxic respiratory failure, resolving # Respiratory acidosis, resolved #Pneumonia Per patient family, patient does not have any previous history of respiratory problems and is not using any inhalers. Not a smoker. ABG at the time of admission showed pH 7.16, pCO2 58, pO2 68, FiO2 100%. Repeat ABG done on 03/27/2024 showed pH 7.3, pCO2 37, bicarb 18. Repeat ABGs done after 03/28/2025 is within normal limits. CTA chest Positive for multiple right lower pulmonary artery filling defects. Positive for left upper lobe pulmonary artery filling defects. No emboli in the main pulmonary artery segments. Pneumonia versus infarction in both lower lung zones. CXR shows bibasilar pneumonia DDx: Sepsis, acute encephalopathy, pulmonary edema, pulmonary embolism, combined. Patient was intubated, sedated and placed on mechanical ventilator on 03/26 and extubated on 03/31. Though patient had pulmonary embolism, patient oxygen needs is coming down. Currently saturating 90-96% at 4L. CTA abd&pelvis on 04/04 still reveals pneumonia at the left base Plan: - Continue ABx as above - Will continue oxygen as needed for now. #KINJAL #Acute renal failure likely 2/2 septic shock vs. renal emboli vs. rhabdomyolysis Patient does not follow-up any primary care doctor and unsure of her baseline kidney functions. Patient noted to have decreased urine output and oliguric since the time of admission. Creatinine at the time of admission is 2.8 --> 03/30, 2.4 --> 03/31, 3.1 --> 04/01, 4.9 --> 04/03, 5.5 DDx: Prerenal versus ATN in the setting of shock versus possible cardiorenal syndrome versus CKD in the setting of diabetes mellitus and hypertension versus embolic versus rhabdomyolysis Patient received HD yesterday; however, given persistant abnormal electrolyte, patient will have another HD today. Plan: - IV albumin prn - Held IV Bumex - Will continue to monitor urine output - Monitor renal panel - Avoid nephrotoxic agents (aminoglycosides, NSAIDs, radiographic contrast) - Adjust medication dosing based on patient's impaired renal function - Hold any KRISSY/ARB/diuretics - Handy Worker, Dr. Zelaya is consulted and patient was started on CRRT through dialysis catheter placement in the right IJV on 03/27 - Received HD on 03/29, 03/30, 03/31, 04/03, 04/04 - Hold getting CT guided renal biopsy, to assess proteinuria - Started Sevelamer 800 mg TID with meals for hyperphosphatemia despite HD yesterday - Cannot put in new dialysis catheter if risk of bacteremia. Will f/u with blood and sputum cultures prior to putting in new tunneled catheter. # HFrEF, EF 40 to 45% #Substance Use Disorder Unsure whether patient is regular methamphetamine user, as family members is not aware of the use. Patient also have severe uncontrolled diabetes mellitus, which could also contribute to the ischemic heart disease and CHF. Plan: - Patient should be started on GDMT but in the setting of ongoing acute kidney injury and recovering shock, will hold GDMT for now - Removed fluid through CRRT/HD #NSTEMI type type I (embolic MD) vs. Type 2 (demand ischemia 2/2 shock) In the setting of demand ischemia. Troponin at the time of admission is 0.427, peaked at 20.920 and later down trended. EKG did not show any ST-T wave changes Plan: - Will continue telemetry monitoring - Metal Dealer, Dr. Nayak is consulted and will follow the recommendations # Pulmonary embolism # DVT Patient was noted to have mismatch between end-tidal CO2 and arterial CO2, also noted to have increased oxygen requirements on the ventilator for which CTA chest was ordered on 03/28/2025 CTA chest was positive for multiple right lower pulmonary artery filling defects. Positive for left upper lobe pulmonary artery filling defects. No emboli in the main pulmonary artery segments. Pneumonia versus infarction in both lower lung zones. Echocardiogram did not show any RV strain, though patient noted to have elevated troponin with peak level at 20.920, later down trended. EKG did not show any signs suggestive of pulmonary embolism. Venous doppler of LLE showed extensive chronic nonocclusive DVT involving the common femoral left superficial femoral, popliteal, peroneal, posterior tibial and greater saphenous veins. Tubular structures in the right popliteal fossa 6.0 cm in left popliteal fossa Plan: - Patient cannot be anticoagulated as of now as patient had hemorrhagic infarcts in the brain and is high risk for bleeding - IVC filter is by Dr. Murillo on 03/31/2025 - Patient is not a candidate of mechanical thrombectomy as of now and does not seem to be in right heart failure #Hypertension Patient noted to have history of hypertension but not using any medications before coming to the hospital BP initially elevated with SBP around 180-190. Now stablizied around 130s-140s. Plan - Continue amlodipine and carvedilol - Will continue to monitor blood pressures and titrate medications as needed #Abdominal pain #Umbilical hernia with incarcerated fat #Gallbladder sludge #Prominent pancreatic head #Right hilum mass #Right lower lobe mass #Left adrenal gland mass #Uterine fundal mass Patient reported diffuse abdominal pain today (04/03/25). On exam, diffuse TTP noted mainly in RUQ and LUQ with no peritinic signs. Her LUQ could be due to the renal infarct that has been noted on recent CT. Lactate: 1.1 NURSE OBGYN was called while receiving HD. CTA abd&pelvis was ordered which showed gallbladder sludge and 22mm umbilical hernia with incarcerated fat and negative for any bowel ischemia. Patient was placed NPO and OG tube was inserted however later was pulled out by pt. General surgery Dr. Wood was consulted who recommended no surgical intervention at this time given current comorbidities and the fact that the hernia is most likely chronic. RUQ US was ordered due to concern for budd chiari which was negative for gallstones, however showed thickened gallbladder wall of 0.45cm and prominent pancreatic head of 3.5cm and moderate hepatomegaly. Below incidental findings were also noted in the CTA abd&pelvis: Mass contiguous with the right hilum 32 mm Mass in the right lower lobe 28 mm Nodular thickening left adrenal gland measuring 24 mm Atrophic anteverted uterus with calcified uterine fundal mass Plan: - CTM - Advanced diet to full liquid. We will assess for patient''s tolerance and assess for bowel movement and passing flatulence. Will consult surgery again if indicated. - Patient will need to follow up with PCP upon discharge for the incidental findings listed above # Transaminitis, resolving # Hyperbilirubinemia, resolved #Hepatitis C At the time of admission patient was found to have bilirubin of 1.6, AST 146, ALT 61 ---> 8/19, AST 76, ALT 74 --> 8/22, AST 42 , ALT 65 DDx: Fatty liver versus chronic liver disease versus viral hepatitis versus secondary to ongoing septic shock and possible suspected ischemia Tested positive for hepatitis C antibody. Liver ultrasound showed 10 mm gallstone, CBD enlarged 0.6 cm, liver 18.5 cm fatty infiltration Plan: - Will continue to monitor liver functions - Patient has to follow-up with chair post machine operator on discharge on outpatient basis for follow-up on hepatitis C, currently does not suspect any active viral hepatitis # High anion gap metabolic acidosis # Lactic acidosis, resolved Likely in the setting of ongoing shock, likely due to sepsis. At the time of admission, anion gap is 19, lactate is 4.7 ---> 04/01, AG 22, Lactate 1.1 --> 04/03 AG 16, lactate 1.1 Anion gap improved on day of admission and lactic acidosis is slowly improving after starting CRRT. Plan: - Received CRRT on 03/27 and 03/28, HD on 03/29, 03/30, 03/31, 04/03, 04/04 - Will continue to monitor lab values # Rhabdomyolysis, resolved Patient happened to be on the floor lying down for 4 to 5 hours and also tested positive for methamphetamine on urine toxicology CK at the time of presentation is 9752 and received 2 L of fluid in the ED, as patient is fluid overloaded cannot give more fluids CK levels continue to trend down slowly to 1187. Plan: -CTM # Uncontrolled type 2 diabetes mellitus Patient is not following any primary care provider and not taking medications properly per patient's family. Blood glucose at the time of admission is 550 for which patient was given 10 units of lispro in the ED. The patient had high anion gap metabolic acidosis, tested negative for beta- hydroxybutyrate and DKA is ruled out. A1C: 13.6 Patient achieving appropriate glucose control with current regimen Plan: - Degludec 24 U QHS + ISS step 3 - Will titrate degludec according to FBS # Chronic right leg wound Likely from uncontrolled diabetes mellitus and venous congestion. On physical examination, noted 5 x 6 cm wound with well-healing granulation tissue. Arterial Doppler was ordered which showed no PAD in bilateral lower extremities Plan - Wound care consulted - Continue Vitamin C 250mg BID - Continue Zinc sulfate 220mg Qday x14 days (04/03-) - Nephro-Vu # History of asthma Unclear if patient is using inhalers or if she has recent exacerbations. Currently does not appear to be in any exacerbations Plan: -CTM Health Maintenance: Diet: Full liquid with cons carb GI prophylaxis: Protonix DVT prophylaxis: Heparin subcut 5000 units every 8 hours Antibiotics: Cefepime 2 g IV, Vancomycin (pharm to dose) CODE STATUS: Full Disposition: HAP management Case discussed with attending Dr. Garcia and senior resident Dr. Miguel Molina MD PGY1 Attending Provider Attestation/Addendum I Gemini Garcia MD reviewed the note and agree with the resident's assessment & plan with modifications/additions/exceptions as below. I have personally reviewed labs, imaging, home meds/prior records, examined the patient, formulated and discussed management plan with the IM team. Patient with history of substance use, cirrhosis and heavy smoking admitted for multiple embolic strokes with hemorrhagic conversion, DVT PE s/p IVC filter placement, patent [place], splenic infarct, hilar and adrenal masses, acute renal failure currently on HD along with HCAP. Overnight remained hemodynamically stable, leukocytosis improved, continue antibiotic therapy with cefepime and vancomycin, pending hypercoagulability workup. Repeat blood culture, sputum culture to ensure no bacteremia in the setting of questionable infective endocarditis prior to obtaining tunneled dialysis access. Holding anticoagulation in the setting of recent hemorrhagic conversion of ischemic stroke, follow-up with neurology recommendation regarding initiation of anticoagulation. Appreciate neurology and nephrology input regarding management
[2025-04-05] MEDS: SEVELAMER CARBONATE 800 MG TABLET PO ×3 (08:31→17:13)
[2025-04-05] MEDS: ZINC SULFATE 220 MG CAPSULE PO (08:31)
[2025-04-05] MEDS: VIT B12/Vit C/FA (Nephrovite) TABLET 1 TAB PO (08:31)
[2025-04-05] MEDS: ASCORBIC ACID 250 MG TABLET PO ×2 (08:34→20:08)
[2025-04-05] MEDS: ASPIRIN EC 81 MG TABEC PO (08:34)
--- NOTE | 2025-04-05 10:26 | PD.RESPRO ---
Documentation for date of: 04/05/25 Subjective Subjective Interval history: Reason for consult: KINJAL, oligoanuria-needing CRRT History of present illness: (patient was intubated during this bond underwriter's visit so the following narrative was constructed primarily via chart checking) Vashti Ross is a 59-year-old F with a PMH of diabetes, hypertension, asthma, substance use disorder (including opiates, probable methamphetamine, and marijuana) on methadone previously, and a chronic right leg wound brought in by ambulance from her home for altered mental status. Per ED rendition of EMS report, patient was noted to be altered with a respiratory rate of [address] [facility]. A total of 8 mg of Narcan was administered at this time which initially improved mentation. Upon arrival, patient was noted to be somnolent and given an additional 0.4 mg of IV Narcan which made her more active but also more combative. She was also noted to be hypoxic and in respiratory distress upon arrival which led her to be put on BiPAP. During her agitated episode, patient endorsed that she hurt all over and loudly yelled that I gotta get out of here . She was eventually given 2 mg of IV Versed and put on restraints due to her continued agitation. Later, she was taken for an MRI which required removal of her BiPAP but upon removal a subsequent drop in O2 saturation to the low 90s was noted. It was deemed that her airway was not secure and the decision was made to intubate the patient. After the MRI was performed, patient was eventually admitted to the ICU. From family collateral, it was learned that patient's last known well time was 22:30 on 03/26. Patient had been found on the floor by her at 05:00 on 03/27 whereupon he tried to rouse her from her stupor, failed, called patient's sister to notify her about patient's condition, and finally left her to go to work. Patient's sister arrived around 09:00 and found patient still lying on the bathroom whereupon this bond underwriter assumes she called for an ambulance to bring the patient to the ED. In the ED, vitals showed: BP 107/78 HR 94 RR 35 Temp 101.3 SpO2 98% on 15 L BiPAP ED Course: CBC showed high WBC 13.1 w/ neutrophilic predominance but was otherwise WNL. Coagulation panel showed high PT 13.3. ABG showed acidic pH 7.27, normal pCO2 40, high pO2 146, low HCO3 18. CMP showed low carbon dioxide 18.1, high anion gap 19, high creatinine 2.8, low eGFR 19, very high blood glucose 550, very high lactic acid 4.7, high bilirubin 1.6, high AST 146, high ALT 61, high total creatine kinase 9752, very high troponin I 0.427, high BNP 297, and high procalcitonin 43.23. UA showed 2+ protein, 3+ glucose, 1+ ketones, 3+ blood, high RBC 10, high WBC 112, 3+ calcium oxalate crystals, 4+ bacteria, normal random sodium 34.2, normal random potassium 26, and low random chloride 23.2. UDS was (+) for amphetamines/methamphetamines and marijuana. Serological studies were reactive for hepatitis C antibody. Imaging: Head CT showed findings most consistent with acute right frontal lobe infarcts. Brain MRI showed multiple embolic-type foci of restricted diffusion in the bilateral occipital lobes, bilateral frontal lobes, and bilateral parietal lobes most consistent with acute infarcts. CXR showed bibasilar pneumonia and findings suspicious for mild associated heart failure. Renal US showed small kidneys with right renal cortical thinning as well as mild right and moderate left renal parenchymal scar formation. Carotid doppler study showed 20-40% stenosis of the right internal carotid artery and 0-10% stenosis of the left internal carotid artery. EKG was unremarkable. In the ED, patient was given Duoneb Precedex, doxycycline, etomidate, Lasix, regular insulin, ketamine, Versed, naloxone, 1 L LR bolus, Zemuron, and 1 L NS bolus. Patient was intubated due to low GCS and was admitted to the ICU. Nephrology was consulted due to patient's need for urgent hemodialysis. Neurology is also following. Interval History 03/28/2025: No overnight events. Patient seen and examined at bedside; they remained intubated and unable to describe their current experience. Notable labs today include: WBC bump to 15.7 from 15.0, creatinine drop to 1.6 from 2.4, blood glucose 170, AST drop to 148 from 179, ALT dropped to 104 from 114, total CK drop to 3666 from 5964, and troponin I drop to 8.789 from 14.934. Urine culture was positive for E. coli and 1 of 2 blood cultures was positive for GPC's (current speciation still pending). She remains without urinary output and has required CRRT. Her echocardiogram came back today showing decreased ejection fraction of 40 to 45% along with vegetations of the tricuspid valve (suggestive of endocarditis). From nephrology's standpoint, patient will be receiving hemodialysis today. 03/29/2025: Patient seen and examined in the ICU. Intubated and unable to follow commands. On exam, she opens eyes spontaneously, extremities are cold and edematous. she remains on pressors,BP 90s/50s wbc 16.8, Cr 1.8 from 1.3.Extensive chronic nonocclusive DVT involving the common femoral left superficial femoral, popliteal, peroneal, posterior tibial and greater saphenous veins HD today 03/30/2025: Patient seen and examined in the ICU, yesterday she was noted to be following commands in the afternoon, today however she is on several sedative medications. She remains on pressors, BP 110s to 120s/60s, WBC 11 from 16. LFT downtrending. BUN 25 from 18, Cr 2.4 from 1.8. On exam her LLE has dark fourth toe and big toe suspect embolic etiology, pending IVC filter per primary team. 03/31/2025: Patient seen and examined in the ICU, pt is noted to be able to follow simple comands, she remains intubated. SBP 130s-160s. WBC 16 from 11, BUN 32 from 25, Cr 3.1 from 2.4. IVC filter placement scheduled for today. SYLVIE yesterday had showed atrial septal aneurysm, likely source of embolic strokes in the setting of DVT. Currently holding off on anticoagulation due to concern for hemorrhagic conversion of infarct per CARDS, Dr Fernandez recommended transfer to [facility] for closure of shunt. Plan for HD today. 04/01/2025: Patient seen and examined in the ICU. pt is extubated, oxymask in place. alert and oriented, answering questions appropriately and following commands. SBP 150s, WBC 17 from 16, CO 19, BUN 34, Cr 3.6, eGFR 14, Lactic acid 1.1, UOP 650 very clear urine. had 1x bumex yesterday, d/c transfer order for PFO repair, pt states that she has had 2 miscarrages in the past, query antiphospholipid syndrome. CTA chest/ AP Large splenic infarct with thrombus in upper lobe splenic arteries. Plan to hold HD. 04/02/2025: Patient seen and examined in the ICU. pt remains extubated, on NC. alert and oriented x3, SBP 130s -150s WBC 16, K 3.5, BUN 52 from 34, Cr 4.9 from 3.6, eGFR 10, phos 6.6. pending hypercoag labs. UOP 1700cc (urine protein creatnine ratio: 3.4) hold off on renal biopsy today, Plan to HOLD HD. Plan to give IV bumex and albumin. 04/03/2025: Patient seen and examined, was downgraded from the ICU. She is alert and oriented x3, appears uncomfortable on exam, reports abdominal pain, Afebrile, normotensive, wbc 16 K 3.6, BUN 59 Cr 5.5 from 4.9, on exam she has diffuse tenderness to palpation, pain out of proportion to exam, no rebound, no guarding. grimaces with light palpation, CTA AP 03/31 with Large splenic infarct with thrombus in upper lobe splenic arteries and PEs noted again, query wheter pt has mesinnteic ischemia vs ischemic colitis. Plan for HD today 04/04/2025: Patient seen and examined at bedside. She is A&Ox3, she appears more comfortable on exam, abdominal pain is resolved, CTA abdomen was negative for acute intrabdominal findings to expain abdominal pain. Plan for HD today given she had contrast yesterday, Cr 4.4 from 4.0, BUN 41 from 59. 04/01/2025: Patient was seen and examined at bedside this AM. No acute events overnight. Patient tolerating diet, adequate urine output and mentation is at baseline. Patient endorses improvement of abdominal pain. Patient underwent hemodialysis on 04/03/2025, RFT shows creatinine 3.7 and GFR 14 at this time. Will evaluate for next hemodialysis session tomorrow. Medical management to continue as per primary team. Renal function trending appropriately at this time. Avoid nephrotoxic agents, avoid excessive fluids and renally dose medications. Exam Vital Signs Temp Pulse Resp BP Pulse Ox O2 Del Method O2 Flow Rate 98.2 F 91 19 142/69 H 100 Nasal Cannula 5 04/05/25 08:00 04/05/25 08:34 04/05/25 08:00 04/05/25 08:34 04/05/25 08:00 04/05/25 08:00 04/05/25 08:00 FiO2 40 04/05/25 04:00 Narrative Exam Constitutional Alert, oriented x3 and elderly. Indonesian-speaking, medical radiation tech used. HEENT Vision grossly intact, PERRL. Patent nares. Trachea midline. Respiratory Chest normal on inspection and clear to auscultation bilaterally. Cardiovascular S1 and S2 audible, RRR. 3/6 murmur, no carotid bruit. No gross JVD. Abdominal Soft and BS + ; non tender to palpation in all quadrants. Genitourinary No bladder tenderness, no flank pain. Normal to palpation. Musculoskeletal Extremities tone within normal limits. RLE wound bandaged, no discharge. Unable to wear SCDs at this time. Neurological CN II - XII grossly intact. Extremity motor and sensation grossly intact. Skin Warm, dry and intact. Left knee surgical scar. Psychiatric Patient has a good affect, is cooperative. Objective Labs 04/06/25 04:52 04/06/25 04:52 Labs: Laboratory Results - last 24 hr 04/05/25 04/05/25 05:00 05:47 WBC 17.6 H RBC 3.38 L Hgb 9.6 L Hct 31.3 L MCV 93 MCH 28.4 MCHC 30.7 L RDW Std Deviation 52.3 H Plt Count 418 D Neut % (Auto) 70 Lymph % (Auto) 13 Dukes % (Auto) 8 Eos % (Auto) 1 Baso % (Auto) 1 Neut # (Auto) 12.2 H Lymph # (Auto) 2.3 Dukes # (Auto) 1.4 H Eos # (Auto) 0.2 Baso # (Auto) 0.2 Immature Gran # (Auto) 1.28 H Absolute Nucleated RBC 0.00 Immature Gran % 7 H Nucleated RBC % 0 Sodium 138 Potassium 3.9 Chloride 97 L Carbon Dioxide 24.5 Anion Gap 17 H BUN 37 H Creatinine 3.7 H D Estim Creat Clear Calc 16.7 L eGFR 14 L* BUN/Creatinine Ratio 10 L Glucose 141 H Calculated Osmolality 286 Calcium 9.3 Corrected Calcium 9.8 Phosphorus 6.1 H Magnesium 1.8 Total Bilirubin 0.4 AST 33 ALT 43 Alkaline Phosphatase 90 Total Protein 6.3 Albumin 3.4 L Globulin 2.9 Albumin/Globulin Ratio 1.2 ABG Interpretation ABG results: 03/26/25 03/26/25 03/26/25 11:18 11:44 16:23 ABG pH 7.27 L Cancelled ABG pCO2 40 Cancelled ABG pO2 146 H Cancelled ABG HCO3 18 L Cancelled ABG O2 Saturation 100 H Cancelled ABG Base Excess -8 L Cancelled VBG pH 7.19 L VBG pCO2 48 VBG pO2 37 VBG Base Excess -10 L 03/26/25 03/27/25 03/27/25 18:43 00:17 03:42 ABG pH 7.16 L* D 7.24 L Cancelled ABG pCO2 58 H D 44 D Cancelled ABG pO2 68 L D 80 L Cancelled ABG HCO3 21 19 L Cancelled ABG O2 Saturation 90 L 96 Cancelled ABG Base Excess -9 L -8 L Cancelled VBG pH VBG pCO2 VBG pO2 VBG Base Excess 03/27/25 03/27/25 03/27/25 04:04 07:55 18:48 ABG pH 7.26 L 7.30 L ABG pCO2 43 37 ABG pO2 83 174 H D ABG HCO3 19 L 18 L ABG O2 Saturation 97 101 H ABG Base Excess -7 L -8 L VBG pH 7.21 L 7.31 L VBG pCO2 49 48 VBG pO2 54 52 VBG Base Excess -8 L -2 03/27/25 03/28/25 03/28/25 19:07 04:06 13:37 ABG pH 7.36 7.38 7.41 ABG pCO2 41 45 44 ABG pO2 79 L D 73 L 105 D ABG HCO3 23 27 H 27 H ABG O2 Saturation 97 96 99 H ABG Base Excess -2 1 2 VBG pH VBG pCO2 VBG pO2 VBG Base Excess 03/29/25 03/30/25 03/31/25 04:45 04:50 04:40 ABG pH 7.38 7.42 7.39 ABG pCO2 45 40 41 ABG pO2 72 L D 66 L 63 L ABG HCO3 27 H 26 25 ABG O2 Saturation 98 93 92 ABG Base Excess 1 2 0 VBG pH VBG pCO2 VBG pO2 VBG Base Excess 03/31/25 17:30 ABG pH 7.39 ABG pCO2 36 ABG pO2 80 L ABG HCO3 21 ABG O2 Saturation 96 ABG Base Excess -3 VBG pH VBG pCO2 VBG pO2 VBG Base Excess Quality Measures Quality Measures VTE prophylaxis Assessment & Plan Assessment Current Active Medications: Generic Name Dose Route Start Last Admin Trade Name Freq PRN Reason Stop Dose Admin Acetaminophen 650 mg 04/01/25 09:12 04/03/25 08:21 Acetaminophen 325 Mg Tablet PO 04/25/25 18:57 650 mg Q4HR PRN Administration Pain Scale 1-3 OR fever >100.4 Albuterol/Ipratropium 3 ml 03/27/25 01:00 04/05/25 06:27 Albuterol/Ipratropium (Duoneb) Rt Jennifer 3 Ml Nebu INH 04/26/25 00:59 3 ml Q6HRRT CRIS Administration Amlodipine Besylate 10 mg 04/02/25 09:00 04/05/25 08:34 Amlodipine Besylate 5 Mg Tablet PO 05/02/25 08:59 10 mg QDAY CRIS Administration Ascorbic Acid 250 mg 04/03/25 12:00 04/05/25 08:34 Ascorbic Acid 250 Mg Tablet PO 05/03/25 11:59 250 mg BID CRIS Administration Aspirin 81 mg 04/01/25 09:30 04/05/25 08:34 Aspirin Ec 81 Mg Tabec PO 05/01/25 09:29 81 mg QDAY CRIS Administration Atorvastatin Calcium 80 mg 03/26/25 21:00 04/04/25 21:13 Atorvastatin Calcium 20 Mg Tablet PO 04/25/25 20:59 80 mg HS CRIS Administration Carvedilol 6.25 mg 04/01/25 17:30 04/05/25 08:31 Carvedilol 3.125 Mg Tablet PO 05/01/25 17:29 6.25 mg BIDWM CRIS Administration Dextrose 25 ml 03/26/25 20:20 Dextrose 50%-Water Inj 50 Ml Syringe IV 04/25/25 20:19 Q15MIN PRN BG 50-70 responsive npo pt Dextrose 50 ml 03/26/25 20:20 Dextrose 50%-Water Inj 50 Ml Syringe IV 04/25/25 20:19 Q15MIN PRN BG <50 OR BG <70 & pt unresponsive Glucagon 1 mg 03/26/25 20:20 Glucagon Inj 1 Mg Vial IM Q15MIN PRN BG <70, and no IV access Heparin Sodium (Porcine) 5,000 unit 03/27/25 14:00 04/05/25 06:01 Heparin Sod Inj 5000 Unit/Ml Vial SC 04/10/25 13:59 5,000 unit Q8HR CRIS Administration Heparin Sodium (Porcine) 2,600 unit 03/28/25 19:33 03/31/25 18:01 Heparin Sod Inj 1000 Unit/Ml Vial 10 Ml INDWELLCAT 04/11/25 19:32 2,600 unit X1 PRN Administration DIALYSIS Hydralazine HCl 25 mg 04/01/25 14:00 04/05/25 06:01 Hydralazine Hcl 25 Mg Tablet PO 05/01/25 13:59 Not Given TID CRIS Hydromorphone HCl 1 mg 04/03/25 15:33 04/05/25 08:29 Hydromorphone Inj 2 Mg/Ml Vial IVP 04/08/25 15:32 1 mg Q4HR PRN Administration PAIN SCALE 4-10(Mod-Sev Albumin Human 25 gm in 100 mls @ 100 mls/min 03/29/25 10:36 03/31/25 18:45 Albuminar-25 Ivpb IV Infused PRN PRN Infusion DIALYSIS Cefepime HCl 2 gm/ Sodium 50 mls @ 100 mls/hr 04/04/25 12:45 04/04/25 14:42 Chloride IV 04/11/25 12:44 100 mls/hr QDAY@1800 CRIS Administration Vancomycin/Sodium Chloride 100 mls @ 60 mls/hr 04/05/25 10:00 Vancomycin/Ns 500 Mg Ivpb IV 04/05/25 11:39 X1 ONE Insulin Degludec 24 unit 04/01/25 21:00 04/04/25 21:04 Insulin Degludec 5 Unit/0.05 Ml (Per 5 Units) SC 05/01/25 20:59 24 unit HS CRIS Administration Insulin Human Lispro 0 unit 04/04/25 21:00 04/05/25 07:35 Insulin Lispro (Admelog) 1 Unit/0.01 Ml Unit SC 05/04/25 20:59 Not Given ACHS [facility] Protocol Labetalol HCl 10 mg 04/01/25 11:16 Labetalol Inj 5 Mg/Ml Vial 20 Ml IVP 05/01/25 11:29 Q4HR PRN if SBP>140 Pharmacy Consult 1 each 04/04/25 12:30 Vancomycin Pharmacy To Dose 1 Each Each IV 05/04/25 12:29 QDAY PRN PROTOCOL Sevelamer Carbonate 800 mg 04/05/25 08:00 04/05/25 08:31 Sevelamer Carbonate 800 Mg Tablet PO 05/05/25 07:59 800 mg TIDWM CRIS Administration Vitamin B Complex/Vit C/Folic Acid 1 tab 04/03/25 12:00 04/05/25 08:31 Vit B12/Vit C/Fa (Nephrovite) Tablet PO 05/03/25 11:59 1 tab QDAY CRIS Administration Zinc Sulfate 220 mg 04/03/25 12:00 04/05/25 08:31 Zinc Sulfate 220 Mg Capsule PO 04/17/25 11:59 220 mg QDAY CRIS Administration Plan Vashti Ross is a 59-year-old F with a PMH of diabetes, hypertension, asthma, substance use disorder (including opiates, probable methamphetamine, and marijuana) on methadone previously, and a chronic right leg wound brought in by ambulance from her home for altered mental status. Patient was intubated due to low GCS and was admitted to the ICU. echo with tricuspid vegitations and EF 40-45%, pt with extensive PE and extensive non occlusive DVT of LLE, SYLVIE revealed atrial septal aneurysm, likely source of embolic strokes in the setting of DVT. per cards, holding off on anticoagulation due to concern for hemorrhagic conversion of infarct. s/p IVC filter, found to have borderline nephrotic range proteinuria, abdominal pain resolved, CTA AP without new intrabdominal findings, HD today. KINJAL on CKD Stage IV Nephrotic range proteinuria Secondary to Ischemic ATN Rhabdomyolysis DDx: multifactorial etiologies including intravascular depletion, diabetic nephropathy, blood pressure derangements, glomerular diseases, sepsis-induced ATN, rhabdomyolysis, cardiorenal syndrome, crystalline nephropathy associated with oxalate, or atheroembolic disease - Admission creatinine 2.8 (baseline: unknown), eGFR 19 - Possible kidney damage from elevated blood glucose 550 on admission, in addition to CK 9752 and U tox positive for amphetamines/methamphetamines - HD: 03/28 CRRT, HD 03/29, 03/30, 03/31, 04/03 - RFT: (04/04) BUN 41, CR 4.4 and GFR 11 --> (04/05) BUN 37, Cr 2.7 and GFR 14 Plan: - Nephrology consulted for worsening CKD while inpatient - Will evaluate for next hemodialysis session tomorrow. Renal function trending appropriately at this time. - Avoid nephrotoxic agents, avoid excessive fluids and renally dose medications. - Hold any KRISSY/ARB/diuretics as KINJAL causing worsening of CKD Other medical problems: CVA- Subarachnoid hemorrhage In the setting of History of PE Extensive nonocclusive DVT LLE Secondary to Hypercoagulable state Antiphospholipid syndrome, pending rule out - Patient has a hx of miscarriages. Never got coagulation workup - CTA Positive for multiple right lower lobe pulmonary artery and left upper lobe pulmonary artery emboli - Of note, multiple thrombi, lung, spleen, LE, Plan: - Primary team consulted Dr Krishna for hematology workup - s/p IVC filter in place HF mrEF 40 -45% History of Endocarditis Atrial aneurysm NSTEMI, likely type 2 demand ischemia - echo with EF 40 -45% - TTE with tricuspid vegitations - SYLVIE with Atrial septal aneurysm present and bubble study positive for PFO especially with increased right atrial pressure Plan: - Management as per primary team - Recommend cardiology consultation inpatient and close follow-up Splenic infarct with thrombus in upper lobe splenic arteries Acute mesenteric ischemia vs ischemic colitis - 04/03 pt has diffuse abdominal pain out of proportion to exam. Plan: - Recommend GI consultation inpatient and close outpatient follow-up T2DM Leukocytosis and AHRF 2/2 PNA - improved Septic shock- resolved, off pressors, Left toes gangreen vs Atheroembolism of left lower extremity toes Plan discussed with attending Dr. Nathalie Bassett M.D. PGY3 Disclaimer: Minor errors in feed inspection supervisor may be present as this note was dictated using voice recognition software. Attending Provider Attestation/Addendum Patient seen and examined with resident physician Dr. Bassett. Note reviewed, agree with findings and recommendations. Patient currently seen in ICU. Currently on pressors. Significant edema noted. Patient received 2 days of CRRT, 3 conventional dialysis.. at bedside. 04/06/2025 moved out of ICU. Patient has hypercoagulable // thrombotic disorder. Patient has both arterial infarcts, venous thrombosis cannot give heparin due to subarachnoid hemorrhage. CT brain yesterday showed questionable subarachnoid hemorrhage. CT angiography did not show any mesenteric occlusion. Did receive 100 mL Isovue contrast. Did get receive dialysis sunday Abdominal pain much better.More alert. Will need a permacath on Sunday if WBC is better. No recovery in the kidney function yet. Suspect ischemic ATN. Next HD in am.
[2025-04-05] MEDS: VANCOMYCIN/NS 500 MG IVPB 100 ML 60 MG IV (10:29)
[2025-04-05] MEDS: NICOTINE PATCH 21 MG/24 HR PATCH.TD24 TOP ×2 (10:49→14:10)
[2025-04-05] MEDS: INSULIN LISPRO (AdmeLOG) 1 UNIT/0.01 ML UNIT SC ×2 (12:36→17:09)
--- NOTE | 2025-04-05 13:58 | PC.NURSE ---
Pt has been restless all day. consistently pulling off tele box leads. Pt said she is a smoker and needs a cigarette. Called and made aware. Order for nicotine patch placed. Gave patient nicotine patch on left shoulder. Went back in the room at 1350, Patch no longer there and patient doesn't know what happened to it. Called and made aware. New order placed for nicotine patch. will place on pack to keep out of reach of pulling.
--- NOTE | 2025-04-05 14:15 | PC.RT ---
sputum sample collected, sent to lab.
--- NOTE | 2025-04-05 16:17 | PC.SS ---
Per afternoon rounding note: Pt on a Drip antibiotic. No d/c date at this time. ?
[2025-04-05] MEDS: CEFEPIME INJ 2 GM in SODIUM CHLORIDE 0.9% (Popper) 50 ML IV (17:13)
--- NOTE | 2025-04-05 20:00 | PC.NURSE ---
at change of shift, patient was agitated, restless and climbing out of bed. she was stating she had pain and kept pulling chest leads off. While in the room redressing patient, she grabbed her triflow and tried to pull it out stating she wanted to go home and would pull it out. We restrained patient educating her. After about 30 min, I went in and he appeared more oriented and cooperative. I removed restraints and patient began pulling off gown and leads right away and attmepting to get out of bed. I reapplied wrist restraints and is tolerating well.
[2025-04-05] MEDS: ATORVASTATIN CALCIUM 20 MG TABLET 80 MG PO (20:08)
--- NOTE | 2025-04-05 23:55 | PD.VPROG1 ---
Telemedicine visit statement This visit was conducted with the use of interactive audio and video telecommunications system that permits real time communication between the patient and the provider. Patient's verbal consent for virtual visit was obtained on 04/05/25 at 2355. Documentation for date of: 04/05/25 Subjective Subjective Interval history: Patient is in telemetry, no new symptoms reported. Virtual exam Vital Signs Temp Pulse Resp BP Pulse Ox O2 Del Method O2 Flow Rate 97.6 F 74 20 131/63 H 91 L Room Air 5 04/05/25 20:00 04/05/25 20:00 04/05/25 20:00 04/05/25 20:00 04/05/25 20:00 04/05/25 20:00 04/05/25 08:00 FiO2 40 04/05/25 04:00 Objective Labs 04/06/25 04:52 04/06/25 04:52 Labs: Laboratory Results - last 24 hr 04/05/25 04/05/25 05:00 05:47 WBC 17.6 H RBC 3.38 L Hgb 9.6 L Hct 31.3 L MCV 93 MCH 28.4 MCHC 30.7 L RDW Std Deviation 52.3 H Plt Count 418 D Neut % (Auto) 70 Lymph % (Auto) 13 [place] % (Auto) 8 Eos % (Auto) 1 Baso % (Auto) 1 Neut # (Auto) 12.2 H Lymph # (Auto) 2.3 [place] # (Auto) 1.4 H Eos # (Auto) 0.2 Baso # (Auto) 0.2 Immature Gran # (Auto) 1.28 H Absolute Nucleated RBC 0.00 Immature Gran % 7 H Nucleated RBC % 0 Sodium 138 Potassium 3.9 Chloride 97 L Carbon Dioxide 24.5 Anion Gap 17 H BUN 37 H Creatinine 3.7 H D Estim Creat Clear Calc 16.7 L eGFR 14 L* BUN/Creatinine Ratio 10 L Glucose 141 H Calculated Osmolality 286 Calcium 9.3 Corrected Calcium 9.8 Phosphorus 6.1 H Magnesium 1.8 Total Bilirubin 0.4 AST 33 ALT 43 Alkaline Phosphatase 90 Total Protein 6.3 Albumin 3.4 L Globulin 2.9 Albumin/Globulin Ratio 1.2 ABG Interpretation ABG results: 03/26/25 03/26/25 03/26/25 11:18 11:44 16:23 ABG pH 7.27 L Cancelled ABG pCO2 40 Cancelled ABG pO2 146 H Cancelled ABG HCO3 18 L Cancelled ABG O2 Saturation 100 H Cancelled ABG Base Excess -8 L Cancelled VBG pH 7.19 L VBG pCO2 48 VBG pO2 37 VBG Base Excess -10 L 03/26/25 03/27/25 03/27/25 18:43 00:17 03:42 ABG pH 7.16 L* D 7.24 L Cancelled ABG pCO2 58 H D 44 D Cancelled ABG pO2 68 L D 80 L Cancelled ABG HCO3 21 19 L Cancelled ABG O2 Saturation 90 L 96 Cancelled ABG Base Excess -9 L -8 L Cancelled VBG pH VBG pCO2 VBG pO2 VBG Base Excess 03/27/25 03/27/25 03/27/25 04:04 07:55 18:48 ABG pH 7.26 L 7.30 L ABG pCO2 43 37 ABG pO2 83 174 H D ABG HCO3 19 L 18 L ABG O2 Saturation 97 101 H ABG Base Excess -7 L -8 L VBG pH 7.21 L 7.31 L VBG pCO2 49 48 VBG pO2 54 52 VBG Base Excess -8 L -2 03/27/25 03/28/25 03/28/25 19:07 04:06 13:37 ABG pH 7.36 7.38 7.41 ABG pCO2 41 45 44 ABG pO2 79 L D 73 L 105 D ABG HCO3 23 27 H 27 H ABG O2 Saturation 97 96 99 H ABG Base Excess -2 1 2 VBG pH VBG pCO2 VBG pO2 VBG Base Excess 03/29/25 03/30/25 03/31/25 04:45 04:50 04:40 ABG pH 7.38 7.42 7.39 ABG pCO2 45 40 41 ABG pO2 72 L D 66 L 63 L ABG HCO3 27 H 26 25 ABG O2 Saturation 98 93 92 ABG Base Excess 1 2 0 VBG pH VBG pCO2 VBG pO2 VBG Base Excess 03/31/25 17:30 ABG pH 7.39 ABG pCO2 36 ABG pO2 80 L ABG HCO3 21 ABG O2 Saturation 96 ABG Base Excess -3 VBG pH VBG pCO2 VBG pO2 VBG Base Excess Assessment & Plan Problem List (1) Ischemic cerebrovascular accident (CVA): Status: Acute Assessment and plan: With the recent CTs showing findings suspicious for subarachnoid and intracerebral hemorrhage Will do a repeat CT head to decide about starting anticoagulant therapy Follow-up with the hypercoagulopathy workup With the physical therapy and Occupational Therapy as she tolerates (2) Uncontrolled diabetes mellitus: Status: Chronic Assessment and plan: Continue to check fingerstick glucose and follow sliding scale insulin per protocol (3) Pulmonary embolism: Status: Chronic Assessment and plan: She got the IVC filter placement Anticoagulation is difficult to decide from concurrent intracerebral and subarachnoid hemorrhage on the CT head
[2025-04-06] VITALS (31 sets, daily range): BP systolic 96–154; BP diastolic 54–83; PULSE 57–93; RESP 16–21; TEMP 36.1–37.1; O2SAT 88–98; BMI 36.1
[2025-04-06] MEDS: HYDROmorphone INJ 2 MG/ML VIAL 1 MG IVP ×2 (02:42→22:54)
[2025-04-06] MEDS: HEPARIN SOD INJ 5000 UNIT/ML VIAL SC ×3 (05:35→22:34)
[2025-04-06 06:17] LABS: Basophils # (Auto) 0.1 Thou/mm3 (0.0-0.2); Basophils % (Auto) 1 % (0-2.5); Eosinophils # (Auto) 0.3 Thou/mm3 (0.0-0.5); Eosinophils % (Auto) 2 % (0-10); Hematocrit 31.3 % (36.0-46.0); Hemoglobin 10.4 g/dL (12.0-16.0); Immature Granulocytes Auto 0.79 Thou/mm3 (0.00-0.00); Lymphocytes # (Auto) 2.3 Thou/mm3 (1.0-4.8); Lymphocytes % (Auto) 14 % (10-50); Mean Corpuscular HGB Conc 33.2 g/dl (31.0-37.0); Mean Corpuscular Hemoglobin 29.6 pg (25.0-35.0); Mean Corpuscular Volume 89 fL (80-100); Monocytes # (Auto) 1.3 Thou/mm3 (0.0-0.8); Monocytes % (Auto) 8 % (0-12); Neutrophils # (Auto) 11.1 Thou/mm3 (1.8-7.7); Neutrophils % (Auto) 70 % (37-80); Nucleated Red Blood Cell # 0.00 Thou/mm3 (0.00-0.00); Nucleated Red Blood Cell % 0 /100 WBC (0); Platelet Count 501 Thou/mm3 (140-440); RDW Standard Deviation 48.6 fL (36.4-46.3); Red Blood Count 3.51 Miln/mm3 (4.00-5.20); White Blood Count 15.8 Thou/mm3 (3.6-11.0)
[2025-04-06] MEDS: ALBUTEROL/IPRATROPIUM (Duoneb) RT SOL 3 ML NEBU INH ×3 (06:30→18:19)
[2025-04-06 06:35] LABS: Alanine Aminotransferase 41 U/L (10-49); Albumin, Serum 3.4 gm/dL (3.5-5.0); Albumin/Globulin Ratio 1.2 (1.2-2.2); Alkaline Phosphatase 81 U/L (46-116); Anion Gap 15 (7-16); Aspartate Amino Transferase 31 U/L (0-34); BUN/Creatinine Ratio 11 Ratio (12-20); Bilirubin,Total 0.4 mg/dL (0.3-1.2); Blood Urea Nitrogen 43 mg/dL (9-23); Calcium 9.4 mg/dL (8.3-10.6); Calcium (Corrected) 9.9 mg/dL (8.5-10.1); Carbon Dioxide 24.5 mMol/L (20.0-31.0); Chloride 97 mMol/L (98-107); Creatinine (Component) 4.0 mg/dL (0.6-1.3); Estimated Creatinine Clearance 15.5 mL/min (>60); Globulin 2.9 gm/dL (2.3-3.5); Glucose 126 mg/dL (74-106); Magnesium 1.6 mg/dL (1.6-2.6); Osmolality,Calculated 284 (275-295); Phosphorous 5.5 mg/dL (2.4-5.1); Potassium 3.8 mMol/L (3.4-5.1); Sodium 136 mMol/L (136-145); Total Protein 6.3 gm/dL (5.7-8.2); Vancomycin,Random 32.9 mcg/mL; eGFR 12 See Note
[2025-04-06 06:56] LABS: Protein C Activity* 132 % normal (70-180)
[2025-04-06 07:02] LABS: Hexagonal Phase Confirm WEAKLY POSITIVE (NEGATIVE); PTT-LA Screen 45 seconds (< OR = 40); Thrombin Clotting Time 17 sec (13-19); dRVVT Screen 44 seconds (< OR = 45)
[2025-04-06 07:02] LABS: Protein S Activity* 87 % normal (60-140)
[2025-04-06] MEDS: ALBUMIN HUMAN 25% IVPB 25 GM/100 ML BTL IV (09:15)
--- NOTE | 2025-04-06 09:18 | PC.NURSE ---
BP TRENDING DOWN, PT REMAINS ASYMPTOMATIC WILL ADMIN PRN ALBUMIN AND CONT. TO MONITOR
--- NOTE | 2025-04-06 10:03 | PD.RESPRO ---
Documentation for date of: 04/06/25 Subjective Subjective Interval history: Reason for consult: KINJAL, oligoanuria-needing CRRT History of present illness: (patient was intubated during this automotive service writer's visit so the following narrative was constructed primarily via chart checking) Vashti Ross is a 59-year-old F with a PMH of diabetes, hypertension, asthma, substance use disorder (including opiates, probable methamphetamine, and marijuana) on methadone previously, and a chronic right leg wound brought in by ambulance from her home for altered mental status. Per ED rendition of EMS report, patient was noted to be altered with a respiratory rate of 4 en route to [facility]. A total of 8 mg of Narcan was administered at this time which initially improved mentation. Upon arrival, patient was noted to be somnolent and given an additional 0.4 mg of IV Narcan which made her more active but also more combative. She was also noted to be hypoxic and in respiratory distress upon arrival which led her to be put on BiPAP. During her agitated episode, patient endorsed that she hurt all over and loudly yelled that I gotta get out of here . She was eventually given 2 mg of IV Versed and put on restraints due to her continued agitation. Later, she was taken for an MRI which required removal of her BiPAP but upon removal a subsequent drop in O2 saturation to the low 90s was noted. It was deemed that her airway was not secure and the decision was made to intubate the patient. After the MRI was performed, patient was eventually admitted to the ICU. From family collateral, it was learned that patient's last known well time was 22:30 on 03/26. Patient had been found on the floor by her at 05:00 on 03/27 whereupon he tried to rouse her from her stupor, failed, called patient's sister to notify her about patient's condition, and finally left her to go to work. Patient's sister arrived around 09:00 and found patient still lying on the bathroom whereupon this automotive service writer assumes she called for an ambulance to bring the patient to the ED. In the ED, vitals showed: BP 107/78 HR 94 RR 35 Temp 101.3 SpO2 98% on 15 L BiPAP ED Course: CBC showed high WBC 13.1 w/ neutrophilic predominance but was otherwise WNL. Coagulation panel showed high PT 13.3. ABG showed acidic pH 7.27, normal pCO2 40, high pO2 146, low HCO3 18. CMP showed low carbon dioxide 18.1, high anion gap 19, high creatinine 2.8, low eGFR 19, very high blood glucose 550, very high lactic acid 4.7, high bilirubin 1.6, high AST 146, high ALT 61, high total creatine kinase 9752, very high troponin I 0.427, high BNP 297, and high procalcitonin 43.23. UA showed 2+ protein, 3+ glucose, 1+ ketones, 3+ blood, high RBC 10, high WBC 112, 3+ calcium oxalate crystals, 4+ bacteria, normal random sodium 34.2, normal random potassium 26, and low random chloride 23.2. UDS was (+) for amphetamines/methamphetamines and marijuana. Serological studies were reactive for hepatitis C antibody. Imaging: Head CT showed findings most consistent with acute right frontal lobe infarcts. Brain MRI showed multiple embolic-type foci of restricted diffusion in the bilateral occipital lobes, bilateral frontal lobes, and bilateral parietal lobes most consistent with acute infarcts. CXR showed bibasilar pneumonia and findings suspicious for mild associated heart failure. Renal US showed small kidneys with right renal cortical thinning as well as mild right and moderate left renal parenchymal scar formation. Carotid doppler study showed 20-40% stenosis of the right internal carotid artery and 0-10% stenosis of the left internal carotid artery. EKG was unremarkable. In the ED, patient was given Duoneb Precedex, doxycycline, etomidate, Lasix, regular insulin, ketamine, Versed, naloxone, 1 L LR bolus, Zemuron, and 1 L NS bolus. Patient was intubated due to low GCS and was admitted to the ICU. Nephrology was consulted due to patient's need for urgent hemodialysis. Neurology is also following. Interval History 03/28/2025: No overnight events. Patient seen and examined at bedside; they remained intubated and unable to describe their current experience. Notable labs today include: WBC bump to 15.7 from 15.0, creatinine drop to 1.6 from 2.4, blood glucose 170, AST drop to 148 from 179, ALT dropped to 104 from 114, total CK drop to 3666 from 5964, and troponin I drop to 8.789 from 14.934. Urine culture was positive for E. coli and 1 of 2 blood cultures was positive for GPC's (current speciation still pending). She remains without urinary output and has required CRRT. Her echocardiogram came back today showing decreased ejection fraction of 40 to 45% along with vegetations of the tricuspid valve (suggestive of endocarditis). From nephrology's standpoint, patient will be receiving hemodialysis today. 03/29/2025: Patient seen and examined in the ICU. Intubated and unable to follow commands. On exam, she opens eyes spontaneously, extremities are cold and edematous. she remains on pressors,BP 90s/50s wbc 16.8, Cr 1.8 from 1.3.Extensive chronic nonocclusive DVT involving the common femoral left superficial femoral, popliteal, peroneal, posterior tibial and greater saphenous veins HD today 03/30/2025: Patient seen and examined in the ICU, yesterday she was noted to be following commands in the afternoon, today however she is on several sedative medications. She remains on pressors, BP 110s to 120s/60s, WBC 11 from 16. LFT downtrending. BUN 25 from 18, Cr 2.4 from 1.8. On exam her LLE has dark fourth toe and big toe suspect embolic etiology, pending IVC filter per primary team. 03/31/2025: Patient seen and examined in the ICU, pt is noted to be able to follow simple comands, she remains intubated. SBP 130s-160s. WBC 16 from 11, BUN 32 from 25, Cr 3.1 from 2.4. IVC filter placement scheduled for today. SYLVIE yesterday had showed atrial septal aneurysm, likely source of embolic strokes in the setting of DVT. Currently holding off on anticoagulation due to concern for hemorrhagic conversion of infarct per CARDS, Dr Fernandez recommended transfer to [facility] for closure of shunt. Plan for HD today. 04/01/2025: Patient seen and examined in the ICU. pt is extubated, oxymask in place. alert and oriented, answering questions appropriately and following commands. SBP 150s, WBC 17 from 16, CO 19, BUN 34, Cr 3.6, eGFR 14, Lactic acid 1.1, UOP 650 very clear urine. had 1x bumex yesterday, d/c transfer order for PFO repair, pt states that she has had 2 miscarrages in the past, query antiphospholipid syndrome. CTA chest/ AP Large splenic infarct with thrombus in upper lobe splenic arteries. Plan to hold HD. 04/02/2025: Patient seen and examined in the ICU. pt remains extubated, on NC. alert and oriented x3, SBP 130s -150s WBC 16, K 3.5, BUN 52 from 34, Cr 4.9 from 3.6, eGFR 10, phos 6.6. pending hypercoag labs. UOP 1700cc (urine protein creatnine ratio: 3.4) hold off on renal biopsy today, Plan to HOLD HD. Plan to give IV bumex and albumin. 04/03/2025: Patient seen and examined, was downgraded from the ICU. She is alert and oriented x3, appears uncomfortable on exam, reports abdominal pain, Afebrile, normotensive, wbc 16 K 3.6, BUN 59 Cr 5.5 from 4.9, on exam she has diffuse tenderness to palpation, pain out of proportion to exam, no rebound, no guarding. grimaces with light palpation, CTA AP 03/31 with Large splenic infarct with thrombus in upper lobe splenic arteries and PEs noted again, query wheter pt has mesinnteic ischemia vs ischemic colitis. Plan for HD today 04/04/2025: Patient seen and examined at bedside. She is A&Ox3, she appears more comfortable on exam, abdominal pain is resolved, CTA abdomen was negative for acute intrabdominal findings to expain abdominal pain. Plan for HD today given she had contrast yesterday, Cr 4.4 from 4.0, BUN 41 from 59. 04/05/2025: Patient was seen and examined at bedside this AM. No acute events overnight. Patient tolerating diet, adequate urine output and mentation is at baseline. Patient endorses improvement of abdominal pain. Patient underwent hemodialysis on 04/03/2025, RFT shows creatinine 3.7 and GFR 14 at this time. Will evaluate for next hemodialysis session tomorrow. Medical management to continue as per primary team. Renal function trending appropriately at this time. Avoid nephrotoxic agents, avoid excessive fluids and renally dose medications. 04/06/2025: patient seen and examined in HD, she was noted to be mildly agitated overnight (given quetiapine 25 overnight). She has no acute complaints, on exam she appears somnolent, per medications documented she did not have any pain meds given recently during time of interview and exam. SBP 150s Pos elevated to 5.5, BUN 43, Cr 4.0 from 3.7. Exam Vital Signs Temp Pulse Resp BP Pulse Ox O2 Del Method O2 Flow Rate 96.9 F 80 18 122/72 98 Room Air 4 04/06/25 08:12 04/06/25 09:48 04/06/25 08:12 04/06/25 09:48 04/06/25 08:12 04/06/25 08:00 04/06/25 08:12 FiO2 40 04/05/25 04:00 Narrative Exam General:somnolent, appears comfortable on exam HEENT: Normocephalic, atraumatic, mucous membranes dry, Heart: Regular rate and rhythm, + murmurs. Lungs: Clear to auscultation . Abdomen: Soft, nondistended, non tender, positive bowel sounds. ?No guarding or rebound tenderness. Neurologic: alert and oriented, Extremities: Noted chronic wound of 5 x 6 cm in the right lower extremity bandaged with kerlix. Noted tissue pressure injuries on the upper lateral right and left thigh. Also noted infected area in the right toe. Peripheral pulses are 2+ There is demarcated ischemia of left foot of 1st and 5th digit. L knee surgical scar. Objective Labs 04/06/25 04:52 04/06/25 04:52 Labs: Laboratory Results - last 24 hr 04/01/25 04/01/25 04/06/25 04:44 09:01 04:52 WBC 15.8 H RBC 3.51 L Hgb 10.4 L Hct 31.3 L MCV 89 MCH 29.6 MCHC 33.2 RDW Std Deviation 48.6 H Plt Count 501 H D Neut % (Auto) 70 Lymph % (Auto) 14 [place] % (Auto) 8 Eos % (Auto) 2 Baso % (Auto) 1 Neut # (Auto) 11.1 H Lymph # (Auto) 2.3 [place] # (Auto) 1.3 H Eos # (Auto) 0.3 Baso # (Auto) 0.1 Immature Gran # (Auto) 0.79 H Absolute Nucleated RBC 0.00 Immature Gran % 5 H Nucleated RBC % 0 Lupus Anticoagulant SEE NOTE LA PTT Screen 45 H LA Thrombin Time 17 LA dRVVT Screen Ratio 44 LA dRVVT Confirm Ratio TNP LA dRVVT Mix Ratio TNP dRVVT Mix Interpret TNP Hexagonal Phase Confirm WEAKLY POSITIVE A Protein C Activity 132 Protein S Activity 87 Sodium 136 Potassium 3.8 Chloride 97 L Carbon Dioxide 24.5 Anion Gap 15 BUN 43 H Creatinine 4.0 H Estim Creat Clear Calc 15.5 L eGFR 12 L* BUN/Creatinine Ratio 11 L Glucose 126 H Calculated Osmolality 284 Calcium 9.4 Corrected Calcium 9.9 Phosphorus 5.5 H Magnesium 1.6 Total Bilirubin 0.4 AST 31 ALT 41 Alkaline Phosphatase 81 Total Protein 6.3 Albumin 3.4 L Globulin 2.9 Albumin/Globulin Ratio 1.2 Random Vancomycin 32.9 ABG Interpretation ABG results: 03/26/25 03/26/25 03/26/25 11:18 11:44 16:23 ABG pH 7.27 L Cancelled ABG pCO2 40 Cancelled ABG pO2 146 H Cancelled ABG HCO3 18 L Cancelled ABG O2 Saturation 100 H Cancelled ABG Base Excess -8 L Cancelled VBG pH 7.19 L VBG pCO2 48 VBG pO2 37 VBG Base Excess -10 L 03/26/25 03/27/25 03/27/25 18:43 00:17 03:42 ABG pH 7.16 L* D 7.24 L Cancelled ABG pCO2 58 H D 44 D Cancelled ABG pO2 68 L D 80 L Cancelled ABG HCO3 21 19 L Cancelled ABG O2 Saturation 90 L 96 Cancelled ABG Base Excess -9 L -8 L Cancelled VBG pH VBG pCO2 VBG pO2 VBG Base Excess 03/27/25 03/27/25 03/27/25 04:04 07:55 18:48 ABG pH 7.26 L 7.30 L ABG pCO2 43 37 ABG pO2 83 174 H D ABG HCO3 19 L 18 L ABG O2 Saturation 97 101 H ABG Base Excess -7 L -8 L VBG pH 7.21 L 7.31 L VBG pCO2 49 48 VBG pO2 54 52 VBG Base Excess -8 L -2 03/27/25 03/28/25 03/28/25 19:07 04:06 13:37 ABG pH 7.36 7.38 7.41 ABG pCO2 41 45 44 ABG pO2 79 L D 73 L 105 D ABG HCO3 23 27 H 27 H ABG O2 Saturation 97 96 99 H ABG Base Excess -2 1 2 VBG pH VBG pCO2 VBG pO2 VBG Base Excess 03/29/25 03/30/25 03/31/25 04:45 04:50 04:40 ABG pH 7.38 7.42 7.39 ABG pCO2 45 40 41 ABG pO2 72 L D 66 L 63 L ABG HCO3 27 H 26 25 ABG O2 Saturation 98 93 92 ABG Base Excess 1 2 0 VBG pH VBG pCO2 VBG pO2 VBG Base Excess 03/31/25 17:30 ABG pH 7.39 ABG pCO2 36 ABG pO2 80 L ABG HCO3 21 ABG O2 Saturation 96 ABG Base Excess -3 VBG pH VBG pCO2 VBG pO2 VBG Base Excess Quality Measures Quality Measures VTE prophylaxis Assessment & Plan Assessment Current Active Medications: Generic Name Dose Route Start Last Admin Trade Name Freq PRN Reason Stop Dose Admin Acetaminophen 650 mg 04/01/25 09:12 04/03/25 08:21 Acetaminophen 325 Mg Tablet PO 04/25/25 18:57 650 mg Q4HR PRN Administration Pain Scale 1-3 OR fever >100.4 Albuterol/Ipratropium 3 ml 03/27/25 01:00 04/06/25 06:30 Albuterol/Ipratropium (Duoneb) Rt Jennifer 3 Ml Nebu INH 04/26/25 00:59 3 ml Q6HRRT CRIS Administration Amlodipine Besylate 10 mg 04/02/25 09:00 04/05/25 08:34 Amlodipine Besylate 5 Mg Tablet PO 05/02/25 08:59 10 mg QDAY CRIS Administration Ascorbic Acid 250 mg 04/03/25 12:00 04/05/25 20:08 Ascorbic Acid 250 Mg Tablet PO 05/03/25 11:59 250 mg BID CRIS Administration Aspirin 81 mg 04/01/25 09:30 04/05/25 08:34 Aspirin Ec 81 Mg Tabec PO 05/01/25 09:29 81 mg QDAY CRIS Administration Atorvastatin Calcium 80 mg 03/26/25 21:00 04/05/25 20:08 Atorvastatin Calcium 20 Mg Tablet PO 04/25/25 20:59 80 mg HS CRIS Administration Carvedilol 6.25 mg 04/01/25 17:30 04/05/25 17:10 Carvedilol 3.125 Mg Tablet PO 05/01/25 17:29 6.25 mg BIDWM CRIS Administration Dextrose 25 ml 03/26/25 20:20 Dextrose 50%-Water Inj 50 Ml Syringe IV 04/25/25 20:19 Q15MIN PRN BG 50-70 responsive npo pt Dextrose 50 ml 03/26/25 20:20 Dextrose 50%-Water Inj 50 Ml Syringe IV 04/25/25 20:19 Q15MIN PRN BG <50 OR BG <70 & pt unresponsive Epoetin Servando 10,000 unit 04/06/25 12:00 Epoetin Servando-Epbx Inj 10,000 Unit/Ml Vial (Non-Esrd) SC 04/06/25 12:01 X1 ONE Glucagon 1 mg 03/26/25 20:20 Glucagon Inj 1 Mg Vial IM Q15MIN PRN BG <70, and no IV access Heparin Sodium (Porcine) 5,000 unit 03/27/25 14:00 04/06/25 05:35 Heparin Sod Inj 5000 Unit/Ml Vial SC 04/10/25 13:59 5,000 unit Q8HR CRIS Administration Heparin Sodium (Porcine) 2,600 unit 03/28/25 19:33 03/31/25 18:01 Heparin Sod Inj 1000 Unit/Ml Vial 10 Ml INDWELLCAT 04/11/25 19:32 2,600 unit X1 PRN Administration DIALYSIS Hydralazine HCl 25 mg 04/01/25 14:00 04/06/25 05:35 Hydralazine Hcl 25 Mg Tablet PO 05/01/25 13:59 25 mg TID CRIS Administration Hydromorphone HCl 1 mg 04/03/25 15:33 04/06/25 02:42 Hydromorphone Inj 2 Mg/Ml Vial IVP 04/08/25 15:32 1 mg Q4HR PRN Administration PAIN SCALE 4-10(Mod-Sev Albumin Human 25 gm in 100 mls @ 100 mls/min 03/29/25 10:36 03/31/25 18:45 Albuminar-25 Ivpb IV Infused PRN PRN Infusion DIALYSIS Cefepime HCl 2 gm/ Sodium 50 mls @ 100 mls/hr 04/04/25 12:45 04/05/25 19:44 Chloride IV 04/11/25 12:44 Infused QDAY@1800 CRIS Infusion Magnesium Sulfate 4 gm in 50 mls @ 12.5 mls/hr 04/06/25 08:22 Magnesium Sulfate Ivpb IV 04/06/25 12:21 X1 ONE Insulin Degludec 24 unit 04/01/25 21:00 04/05/25 20:18 Insulin Degludec 5 Unit/0.05 Ml (Per 5 Units) SC 05/01/25 20:59 Not Given HS CRIS Insulin Human Lispro 0 unit 04/04/25 21:00 04/05/25 20:18 Insulin Lispro (Admelog) 1 Unit/0.01 Ml Unit SC 05/04/25 20:59 Not Given ACHS [facility] Protocol Labetalol HCl 10 mg 04/01/25 11:16 Labetalol Inj 5 Mg/Ml Vial 20 Ml IVP 05/01/25 11:29 Q4HR PRN if SBP>140 Nicotine 21 mg 04/05/25 10:45 04/05/25 10:49 Nicotine Patch 21 Mg/24 Hr Patch.Td24 TOP 05/05/25 10:44 21 mg QDAY [facility] Administration Pharmacy Consult 1 each 04/04/25 12:30 Vancomycin Pharmacy To Dose 1 Each Each IV 05/04/25 12:29 QDAY PRN PROTOCOL Sevelamer Carbonate 800 mg 04/05/25 08:00 04/05/25 17:13 Sevelamer Carbonate 800 Mg Tablet PO 05/05/25 07:59 800 mg TIDWM CRIS Administration Vitamin B Complex/Vit C/Folic Acid 1 tab 04/03/25 12:00 04/05/25 08:31 Vit B12/Vit C/Fa (Nephrovite) Tablet PO 05/03/25 11:59 1 tab QDAY CRIS Administration Zinc Sulfate 220 mg 04/03/25 12:00 04/05/25 08:31 Zinc Sulfate 220 Mg Capsule PO 04/17/25 11:59 220 mg QDAY CRIS Administration Plan Vashti Ross is a 59-year-old F with a PMH of diabetes, hypertension, asthma, substance use disorder (including opiates, probable methamphetamine, and marijuana) on methadone previously, and a chronic right leg wound brought in by ambulance from her home for altered mental status. Patient was intubated due to low GCS and was admitted to the ICU. echo with tricuspid vegitations and EF 40-45%, pt with extensive PE and extensive non occlusive DVT of LLE, SYLVIE revealed atrial septal aneurysm, likely source of embolic strokes in the setting of DVT. per cards, holding off on anticoagulation due to concern for hemorrhagic conversion of infarct. s/p IVC filter, found to have borderline nephrotic range proteinuria, abdominal pain resolved, CTA AP without new intrabdominal findings, HD today. KINJAL on CKD Stage IV Nephrotic range proteinuria Secondary to Ischemic ATN Rhabdomyolysis DDx: multifactorial etiologies including intravascular depletion, diabetic nephropathy, blood pressure derangements, glomerular diseases, sepsis-induced ATN, rhabdomyolysis, cardiorenal syndrome, crystalline nephropathy associated with oxalate, or atheroembolic disease - Admission creatinine 2.8 (baseline: unknown), eGFR 19 - Possible kidney damage from elevated blood glucose 550 on admission, in addition to CK 9752 and U tox positive for amphetamines/methamphetamines - HD: 03/28 CRRT, HD 03/29, 03/30, 03/31, 04/03, 04/04, 04/06 - RFT: (04/04) BUN 41, CR 4.4 and GFR 11 --> (04/05) BUN 37, Cr 2.7 and GFR 14--> 04/06 BUN 43, Cr 4.0 Plan: - HD today - Nephrology consulted for worsening CKD while inpatient - Avoid nephrotoxic agents, avoid excessive fluids and renally dose medications. - Hold any KRISSY/ARB/diuretics as KINJAL causing worsening of CKD Other medical problems: CVA- Subarachnoid hemorrhage In the setting of History of PE Extensive nonocclusive DVT LLE Secondary to Hypercoagulable state Antiphospholipid syndrome, pending rule out - Patient has a hx of miscarriages. Never got coagulation workup - CTA Positive for multiple right lower lobe pulmonary artery and left upper lobe pulmonary artery emboli - Of note, multiple thrombi, lung, spleen, LE, Plan: - Primary team consulted Dr Krishna for hematology workup - s/p IVC filter in place HF mrEF 40 -45% History of Endocarditis Atrial aneurysm NSTEMI, likely type 2 demand ischemia - echo with EF 40 -45% - TTE with tricuspid vegitations - SYLVIE with Atrial septal aneurysm present and bubble study positive for PFO especially with increased right atrial pressure Splenic infarct with thrombus in upper lobe splenic arteries Acute mesenteric ischemia vs ischemic colitis - 04/03 pt has diffuse abdominal pain out of proportion to exam. Plan: - Recommend GI consultation inpatient and close outpatient follow-up T2DM Leukocytosis and AHRF 2/2 PNA - improved Septic shock- resolved, off pressors, Left toes gangreen vs Atheroembolism of left lower extremity toes - managment per primary team Plan discussed with nephrology attending Dr. Nathalie Vallejo MD Internal Medicine PGY-1 Attending Provider Attestation/Addendum Patient seen and examined with resident physician Dr. Bashir. note reviewed, agree with findings and recommendations. Patient received 2 days of CRRT, 4 conventional dialysis.. at bedside. 04/06/2025 moved out of ICU. Patient has hypercoagulable // thrombotic disorder. Patient has both arterial infarcts, venous thrombosis cannot give heparin due to subarachnoid hemorrhage. CT brain showed questionable subarachnoid hemorrhage. CT angiography did not show any mesenteric occlusion. Did receive 100 mL Isovue contrast. Abdominal pain much better. today she seems to be sleeping Suspected ischemic ATN with no recovery. Will need PermCath once white count improves. DC central line. Patient currently seen on dialysis. Tolerating dialysis without any problems. Hemodialysis for 3 hours, 2K, ultrafiltration 2 L, Epogen 6000, no heparin ordered. Plan of care discussed with the dialysis nurse. Please see dialysis flowsheet for further details. Outpatient dialysis arrangements will be made
--- NOTE | 2025-04-06 10:45 | PC.SS ---
SS follow up note; SS contacted [facility] and spoke to Lilli to check status on insurance verification. Lilli reported that TB test is pending. SS did a chart review, however no TB test has been done. SS notified Dr. Arceo and he informed SS they will submit TB order.
--- NOTE | 2025-04-06 11:01 | PC.SS ---
SS follow up note; SS contacted [facility] and spoke to Lilli to check status on insurance verification. Lilli reported that TB test is pending have not not yet received TB results. SS did a chart review, however no TB test was found. SS notified Dr. Arceo and he informed SS he would submit TB order.
[2025-04-06] MEDS: EPOETIN ALFA-EPBX INJ 10,000 UNIT/ML VIAL (NON-ESRD) 10000 UNIT SC (11:13)
--- NOTE | 2025-04-06 11:21 | ESPR_ITS ---
<Statement entered by Hayley Dubois MD - 04/10/25 15:07> I reviewed above note and agree with findings and plans. I have also personally examined the patient with medicine team and went over assessment and plan with medical team including internal grinder and resident physician. <Statement entered by Kentrell Hendricks MD - 04/06/25 16:19> Patient was examined and case was reviewed with team including attending physician. Note reviewed, I agree with most of its contents and agree with the patient's care as documented by Dr. Rand Patient seen and evaluated at the bedside. Overnight patient became agitated and required soft wrist restraints and 1 dose of Seroquel. Patient on hemodialysis session today would likely discontinue central line and plan for permanent tunneled dialysis catheter tomorrow. Case discussed with my attending Dr. Sherly Hendricks MD PGY-2 Disclaimer: Despite multiple revisions, due to the dictation software being used, the document bellow may not be free of grammatical errors including phonetic/typographic errors. However, this does not deter from our commitment to providing health care in the patient's best interest in mind. Documentation for date of: 04/06/25 Subjective Subjective Interval history: 04/06/25: Overnight, patient was noted to be agitated, soft straints were applied with 1x dose of seroquel. Otherwise no other acute events overnight with stable vital signs. Patient has completed her hemodyalisis today. Will discussed with the nephrology team today for possible discontinuation of the central line and tunneled cath placement tomorrow given negative blood culture again at 24 hour violet. Exam Vital Signs Temp Pulse Resp BP Pulse Ox O2 Del Method O2 Flow Rate 96.9 F 72 18 129/71 98 Room Air 4 04/06/25 10:43 04/06/25 11:00 04/06/25 10:43 04/06/25 11:00 04/06/25 08:12 04/06/25 08:00 04/06/25 08:12 FiO2 40 04/05/25 04:00 Narrative Exam General: Off sedation, appears comfortable. Poor hygiene. A/O x2 HEENT: Normocephalic, atraumatic, mucous membranes moist. Heart: Regular rate and rhythm, no murmurs. Lungs: Clear to auscultation with no wheezing or crackles. Abdomen: Soft, mildly distended, mild discomfort to palpation throughout. No guarding or rebound tenderness. Neurologic: Bilateral pupils are equal and reacting to light. Able to move all extremities. Muscle strength 4/5 throughout. Extremities: Noted surgical scar on the left knee likely from TKR. Noted chronic wound of 5 x 6 cm in the right lower extremity. Noted tissue pressure injuries on the upper lateral right and left thigh. Also noted infected area in the right toe and left 1st and 5th toes. Skin: No rash or ecchymoses. Objective Labs 04/06/25 04:52 04/06/25 04:52 Labs: Laboratory Results - last 24 hr 04/01/25 04/01/25 04/06/25 04:44 09:01 04:52 WBC 15.8 H RBC 3.51 L Hgb 10.4 L Hct 31.3 L MCV 89 MCH 29.6 MCHC 33.2 RDW Std Deviation 48.6 H Plt Count 501 H D Neut % (Auto) 70 Lymph % (Auto) 14 [place] % (Auto) 8 Eos % (Auto) 2 Baso % (Auto) 1 Neut # (Auto) 11.1 H Lymph # (Auto) 2.3 [place] # (Auto) 1.3 H Eos # (Auto) 0.3 Baso # (Auto) 0.1 Immature Gran # (Auto) 0.79 H Absolute Nucleated RBC 0.00 Immature Gran % 5 H Nucleated RBC % 0 Lupus Anticoagulant SEE NOTE LA PTT Screen 45 H LA Thrombin Time 17 LA dRVVT Screen Ratio 44 LA dRVVT Confirm Ratio TNP LA dRVVT Mix Ratio TNP dRVVT Mix Interpret TNP Hexagonal Phase Confirm WEAKLY POSITIVE A Protein C Activity 132 Protein S Activity 87 Sodium 136 Potassium 3.8 Chloride 97 L Carbon Dioxide 24.5 Anion Gap 15 BUN 43 H Creatinine 4.0 H Estim Creat Clear Calc 15.5 L eGFR 12 L* BUN/Creatinine Ratio 11 L Glucose 126 H Calculated Osmolality 284 Calcium 9.4 Corrected Calcium 9.9 Phosphorus 5.5 H Magnesium 1.6 Total Bilirubin 0.4 AST 31 ALT 41 Alkaline Phosphatase 81 Total Protein 6.3 Albumin 3.4 L Globulin 2.9 Albumin/Globulin Ratio 1.2 Random Vancomycin 32.9 ABG Interpretation ABG results: 03/26/25 03/26/25 03/26/25 11:18 11:44 16:23 ABG pH 7.27 L Cancelled ABG pCO2 40 Cancelled ABG pO2 146 H Cancelled ABG HCO3 18 L Cancelled ABG O2 Saturation 100 H Cancelled ABG Base Excess -8 L Cancelled VBG pH 7.19 L VBG pCO2 48 VBG pO2 37 VBG Base Excess -10 L 03/26/25 03/27/25 03/27/25 18:43 00:17 03:42 ABG pH 7.16 L* D 7.24 L Cancelled ABG pCO2 58 H D 44 D Cancelled ABG pO2 68 L D 80 L Cancelled ABG HCO3 21 19 L Cancelled ABG O2 Saturation 90 L 96 Cancelled ABG Base Excess -9 L -8 L Cancelled VBG pH VBG pCO2 VBG pO2 VBG Base Excess 03/27/25 03/27/25 03/27/25 04:04 07:55 18:48 ABG pH 7.26 L 7.30 L ABG pCO2 43 37 ABG pO2 83 174 H D ABG HCO3 19 L 18 L ABG O2 Saturation 97 101 H ABG Base Excess -7 L -8 L VBG pH 7.21 L 7.31 L VBG pCO2 49 48 VBG pO2 54 52 VBG Base Excess -8 L -2 03/27/25 03/28/25 03/28/25 19:07 04:06 13:37 ABG pH 7.36 7.38 7.41 ABG pCO2 41 45 44 ABG pO2 79 L D 73 L 105 D ABG HCO3 23 27 H 27 H ABG O2 Saturation 97 96 99 H ABG Base Excess -2 1 2 VBG pH VBG pCO2 VBG pO2 VBG Base Excess 03/29/25 03/30/25 03/31/25 04:45 04:50 04:40 ABG pH 7.38 7.42 7.39 ABG pCO2 45 40 41 ABG pO2 72 L D 66 L 63 L ABG HCO3 27 H 26 25 ABG O2 Saturation 98 93 92 ABG Base Excess 1 2 0 VBG pH VBG pCO2 VBG pO2 VBG Base Excess 03/31/25 17:30 ABG pH 7.39 ABG pCO2 36 ABG pO2 80 L ABG HCO3 21 ABG O2 Saturation 96 ABG Base Excess -3 VBG pH VBG pCO2 VBG pO2 VBG Base Excess Quality Measures Quality Measures VTE prophylaxis Assessment & Plan Assessment Current Active Medications: Generic Name Dose Route Start Last Admin Trade Name Frejulissa PRN Reason Stop Dose Admin Acetaminophen 650 mg 04/01/25 09:12 04/03/25 08:21 Acetaminophen 325 Mg Tablet PO 04/25/25 18:57 650 mg Q4HR PRN Administration Pain Scale 1-3 OR fever >100.4 Albuterol/Ipratropium 3 ml 03/27/25 01:00 04/06/25 06:30 Albuterol/Ipratropium (Duoneb) Rt Jennifer 3 Ml Nebu INH 04/26/25 00:59 3 ml Q6HRRT CRIS Administration Amlodipine Besylate 10 mg 04/02/25 09:00 04/05/25 08:34 Amlodipine Besylate 5 Mg Tablet PO 05/02/25 08:59 10 mg QDAY CRIS Administration Ascorbic Acid 250 mg 04/03/25 12:00 04/05/25 20:08 Ascorbic Acid 250 Mg Tablet PO 05/03/25 11:59 250 mg BID CRIS Administration Aspirin 81 mg 04/01/25 09:30 04/05/25 08:34 Aspirin Ec 81 Mg Tabec PO 05/01/25 09:29 81 mg QDAY CRIS Administration Atorvastatin Calcium 80 mg 03/26/25 21:00 04/05/25 20:08 Atorvastatin Calcium 20 Mg Tablet PO 04/25/25 20:59 80 mg HS CRIS Administration Carvedilol 6.25 mg 04/01/25 17:30 04/05/25 17:10 Carvedilol 3.125 Mg Tablet PO 05/01/25 17:29 6.25 mg BIDWM CRIS Administration Dextrose 25 ml 03/26/25 20:20 Dextrose 50%-Water Inj 50 Ml Syringe IV 04/25/25 20:19 Q15MIN PRN BG 50-70 responsive npo pt Dextrose 50 ml 03/26/25 20:20 Dextrose 50%-Water Inj 50 Ml Syringe IV 04/25/25 20:19 Q15MIN PRN BG <50 OR BG <70 & pt unresponsive Epoetin Servando 10,000 unit 04/06/25 12:00 04/06/25 11:13 Epoetin Servando-Epbx Inj 10,000 Unit/Ml Vial (Non-Esrd) SC 04/06/25 12:01 10,000 unit X1 ONE Administration Glucagon 1 mg 08/14/25 20:20 Glucagon Inj 1 Mg Vial IM Q15MIN PRN BG <70, and no IV access Heparin Sodium (Porcine) 5,000 unit 03/27/25 14:00 04/06/25 05:35 Heparin Sod Inj 5000 Unit/Ml Vial SC 04/10/25 13:59 5,000 unit Q8HR CRIS Administration Heparin Sodium (Porcine) 2,600 unit 03/28/25 19:33 03/31/25 18:01 Heparin Sod Inj 1000 Unit/Ml Vial 10 Ml INDWELLCAT 04/11/25 19:32 2,600 unit X1 PRN Administration DIALYSIS Hydralazine HCl 25 mg 04/01/25 14:00 04/06/25 05:35 Hydralazine Hcl 25 Mg Tablet PO 05/01/25 13:59 25 mg TID CRIS Administration Hydromorphone HCl 1 mg 04/03/25 15:33 04/06/25 02:42 Hydromorphone Inj 2 Mg/Ml Vial IVP 04/08/25 15:32 1 mg Q4HR PRN Administration PAIN SCALE 4-10(Mod-Sev Cefepime HCl 2 gm/ Sodium 50 mls @ 100 mls/hr 04/04/25 12:45 04/05/25 19:44 Chloride IV 04/11/25 12:44 Infused QDAY@1800 [facility] Infusion Magnesium Sulfate 4 gm in 50 mls @ 12.5 mls/hr 04/06/25 08:22 Magnesium Sulfate Ivpb IV 04/06/25 12:21 X1 ONE Insulin Degludec 24 unit 04/01/25 21:00 04/05/25 20:18 Insulin Degludec 5 Unit/0.05 Ml (Per 5 Units) DC 05/01/25 20:59 Not Given HS [facility] Insulin Human Lispro 0 unit 04/04/25 21:00 04/05/25 20:18 Insulin Lispro (Admelog) 1 Unit/0.01 Ml Unit DC 05/04/25 20:59 Not Given ACHS [facility] Protocol Labetalol HCl 10 mg 04/01/25 11:16 Labetalol Inj 5 Mg/Ml Vial 20 Ml IVP 05/01/25 11:29 Q4HR PRN if SBP>140 Nicotine 21 mg 04/05/25 10:45 04/05/25 10:49 Nicotine Patch 21 Mg/24 Hr Patch.Td24 TOP 05/05/25 10:44 21 mg QDAY CRIS Administration Pharmacy Consult 1 each 04/04/25 12:30 Vancomycin Pharmacy To Dose 1 Each Each IV 05/04/25 12:29 QDAY PRN PROTOCOL Sevelamer Carbonate 800 mg 04/05/25 08:00 04/05/25 17:13 Sevelamer Carbonate 800 Mg Tablet PO 05/05/25 07:59 800 mg TIDWM CRIS Administration Vitamin B Complex/Vit C/Folic Acid 1 tab 04/03/25 12:00 04/05/25 08:31 Vit B12/Vit C/Fa (Nephrovite) Tablet PO 05/03/25 11:59 1 tab QDAY CRIS Administration Zinc Sulfate 220 mg 04/03/25 12:00 04/05/25 08:31 Zinc Sulfate 220 Mg Capsule PO 04/17/25 11:59 220 mg QDAY CRIS Administration Plan 59F with PMH of DM, HTN, asthma, drug use disorder, and a chronic right leg wound was brought to the ED after being found unresponsive at home where she was found to have acute encephalopathy with low GCS requiring intubation and ICU admission for ventilator support, pressor support for likely septic shock, and CRRT. Patient found to have multi embolic disease involving multiple systems including brain and left distal extremity, acute and failure with the cause likely renal emboli. #Acute encephalopathy, multifactorial, related to metabolic derangement, substance use, and embolic CVA (Resolving) #Acute Multiple embolic type foci occipital lobes, bilateral frontal and bilateral parietal lobe #Atrial septal aneurysm #PFO #Subarachnoid hemorrhage #Endocarditis - r/o #Tricuspid valve vegetation - r/o Patient came in with altered sensorium and head CT at the time showed multiple bilateral infarcts, likely embolic. Patient was weaned off sedation and extubated on 03/31/2025, tolerated well. Currently, patient is improving and is alert and oriented. Patient has extensive DVT in the left lower extremity also noted to have pulmonary embolism, patient might be having embolism through PFO and reaching the systemic circulation. TTE showed normal size left ventricle with mild apical and global hypokinesis LVEF 40-45%. Evidence of Tricuspid valve vegetation suggestive of endocarditis The RV is normal in size. The right ventricular systolic function is mildly decreased. Aortic valve sclerosis thickened wih mild aortic regurgitation. Mitral valve thickening with mild mitral regurgitation. SYLVIE (03/30/25) confirmed no vegetations. Noted to have atrial aneurysm bulging into left atrium, bubble study done showed PFO EEG from 04/02/25 shows diffuse slowing suggestive of a diffuse encephalopathy of vascular origin. Per neurology team, given PE and small PFO, PE could be the cause of embolism vs endocardititis but less likely as negative SYLVIE for vegation. Although leukocytosis noted, less likely secondary to endocarditis in origin and more likely secondary to ischemia vs less likely increased coagulopathy as no previous history of DVTs. Hematology Dr. Krishna was consulted who agreed with the current plan. MR venogram negative for any thrombus New blood cx negative at 24 hour violet 1/2 samples positive for lupus anticoagulant. Weakly positive for hexagonal phase confirm test. Positive EFFIE. Pending the rest of hypercoagulopathy tests. Plan: - Will continue atorvastatin and Aspirin for now - Cannot start on heparin drip as patient noted to have hemorrhagic infarcts on repeat CT head done on 03/30/2025. Repeat CT head from 04/02 showed stable multiple areas of subarachnoid hemorrhage compared to 04/01 - IVC filter placement is done on 03/31/2025 to prevent further embolic strokes through PFO from DVT - No need of urgent PFO closure as per Dr. Nayak. - PT and speech therapy - Pending hypercoaugulable workup due to suspected Antiphospholipid syndrome due to DVT and other infarcts (Called [facility], results are estimated to be out by Sunday 04/08) - Pending CT head w/o. If stable hemorrhage noted, we will discuss with the neurology team for possibility of starting patient on anticoagulations #Septic shock #Hospital-Acquired PNA # UTI At the time of admission, patient was noted to have bilateral lower extremity edema and bilateral diffuse inspiratory crackles -possible heart failure in the setting of methamphetamine abuse, diabetes, hypertension. Also noted to have temperature of 101.8 ?F at the time of admission, likely due to some ongoing infection. Fits into 2/3 qsofa criteria. Noted to have GCS less than 15 and respiratory rate 35/min. Suspecting sepsis worsening the underlying heart failure resulting in suspected possible combined septic and cardiogenic shock. DDx: Combined cardiogenic and septic shock Patient was started on Levophed and weaned off completely on 03/30/2025 WBC on admission 13.1, procalcitonin 43.23. UA showed turbid urine with 2+ proteinuria, 3+ glucosuria, 112 WBC, 4+ bacteria suggestive of UTI. Urine culture positive for E.coli, blood cultures negative. TTE showed vegetations of the trisupid valve concerning for endocarditis. WBC now down trending to 15.8 from 21.6 two days ago. Patient remains afebrile. Initially patient was started on vancomycin and Zosyn [03/27-03/30], discontinued Vanco and Zosyn, Started on Rocephin (03/30-04/04) Plan: - Continue Vancomycin and cefepime 2g to cover for HAP (04/04/25-) - Re-ordered blood cx x2 and sputum cx + gram stain given that patient continues to have elevated WBC. - Will continue to monitor vitals # Acute hypoxic respiratory failure, resolving # Respiratory acidosis, resolved #Pneumonia Per patient family, patient does not have any previous history of respiratory problems and is not using any inhalers. Not a smoker. ABG at the time of admission showed pH 7.16, pCO2 58, pO2 68, FiO2 100%. Repeat ABG done on 03/27/2024 showed pH 7.3, pCO2 37, bicarb 18. Repeat ABGs done after 03/28/2025 is within normal limits. CTA chest Positive for multiple right lower pulmonary artery filling defects. Positive for left upper lobe pulmonary artery filling defects. No emboli in the main pulmonary artery segments. Pneumonia versus infarction in both lower lung zones. CXR shows bibasilar pneumonia DDx: Sepsis, acute encephalopathy, pulmonary edema, pulmonary embolism, combined. Patient was intubated, sedated and placed on mechanical ventilator on 03/26 and extubated on 03/31. Though patient had pulmonary embolism, patient oxygen needs is coming down. Currently saturating 90-96% at 4L. CTA abd&pelvis on 04/04 still reveals pneumonia at the left base Plan: - Continue ABx as above - Will continue oxygen as needed for now. #KINJAL #Acute renal failure likely 2/2 septic shock vs. renal emboli vs. rhabdomyolysis Patient does not follow-up any primary care doctor and unsure of her baseline kidney functions. Patient noted to have decreased urine output and oliguric since the time of admission. Creatinine at the time of admission is 2.8 --> 03/30, 2.4 --> 03/31, 3.1 --> 04/01, 4.9 --> 04/03, 5.5 DDx: Prerenal versus ATN in the setting of shock versus possible cardiorenal syndrome versus CKD in the setting of diabetes mellitus and hypertension versus embolic versus rhabdomyolysis Patient received HD yesterday; however, given persistant abnormal electrolyte, patient will have another HD today. Plan: - HD today. We will reassess for possibility of removing the central line and placing tunneled catheter tomorrow. Cannot put in new dialysis catheter if risk of bacteremia. Will f/u with blood and sputum cultures prior to putting in new tunneled catheter (blood cx negative at 24 hour violet). - IV albumin prn - Held IV Bumex - Will continue to monitor urine output - Monitor renal panel - Avoid nephrotoxic agents (aminoglycosides, NSAIDs, radiographic contrast) - Adjust medication dosing based on patient's impaired renal function - Hold any KRISSY/ARB/diuretics - Scalp Treatment Operator, Dr. Zelaya is consulted and patient was started on CRRT through dialysis catheter placement in the right IJV on 03/27 - Received HD on 03/29, 03/30, 03/31, 04/03, 04/04 - Hold getting CT guided renal biopsy, to assess proteinuria - Started Sevelamer 800 mg TID with meals for hyperphosphatemia despite HD yesterday # HFrEF, EF 40 to 45% #Substance Use Disorder Unsure whether patient is regular methamphetamine user, as family members is not aware of the use. Patient also have severe uncontrolled diabetes mellitus, which could also contribute to the ischemic heart disease and CHF. Plan: - Patient should be started on GDMT but in the setting of ongoing acute kidney injury and recovering shock, will hold GDMT for now - Removed fluid through CRRT/HD #NSTEMI type type I (embolic [place]) vs. Type 2 (demand ischemia 2/2 shock) In the setting of demand ischemia. Troponin at the time of admission is 0.427, peaked at 20.920 and later down trended. EKG did not show any ST-T wave changes Plan: - Will continue telemetry monitoring - Aerial Installer, Dr. Nayak is consulted and will follow the recommendations # Pulmonary embolism # DVT Patient was noted to have mismatch between end-tidal CO2 and arterial CO2, also noted to have increased oxygen requirements on the ventilator for which CTA chest was ordered on 03/28/2025 CTA chest was positive for multiple right lower pulmonary artery filling defects. Positive for left upper lobe pulmonary artery filling defects. No emboli in the main pulmonary artery segments. Pneumonia versus infarction in both lower lung zones. Echocardiogram did not show any RV strain, though patient noted to have elevated troponin with peak level at 20.920, later down trended. EKG did not show any signs suggestive of pulmonary embolism. Venous doppler of LLE showed extensive chronic nonocclusive DVT involving the common femoral left superficial femoral, popliteal, peroneal, posterior tibial and greater saphenous veins. Tubular structures in the right popliteal fossa 6.0 cm in left popliteal fossa Plan: - Patient cannot be anticoagulated as of now as patient had hemorrhagic infarcts in the brain and is high risk for bleeding - IVC filter is by Dr. Murillo on 03/31/2025 - Patient is not a candidate of mechanical thrombectomy as of now and does not seem to be in right heart failure #Hypertension Patient noted to have history of hypertension but not using any medications before coming to the hospital BP initially elevated with SBP around 180-190. Now stablizied around 130s-140s. Plan - Continue amlodipine and carvedilol - Will continue to monitor blood pressures and titrate medications as needed #Abdominal pain #Umbilical hernia with incarcerated fat #Gallbladder sludge #Prominent pancreatic head #Right hilum mass #Right lower lobe mass #Left adrenal gland mass #Uterine fundal mass Patient reported diffuse abdominal pain today (04/03/25). On exam, diffuse TTP noted mainly in RUQ and LUQ with no peritinic signs. Her LUQ could be due to the renal infarct that has been noted on recent CT. Lactate: 1.1 MEAT SERVICE TEAM MEMBER was called while receiving HD. CTA abd&pelvis was ordered which showed gallbladder sludge and 22mm umbilical hernia with incarcerated fat and negative for any bowel ischemia. Patient was placed NPO and OG tube was inserted however later was pulled out by pt. General surgery Dr. Wood was consulted who recommended no surgical intervention at this time given current comorbidities and the fact that the hernia is most likely chronic. RUQ US was ordered due to concern for budd chiari which was negative for gallstones, however showed thickened gallbladder wall of 0.45cm and prominent pancreatic head of 3.5cm and moderate hepatomegaly. Below incidental findings were also noted in the CTA abd&pelvis: Mass contiguous with the right hilum 32 mm Mass in the right lower lobe 28 mm Nodular thickening left adrenal gland measuring 24 mm Atrophic anteverted uterus with calcified uterine fundal mass Plan: - CTM - Advanced diet to full liquid. We will assess for patient''s tolerance and assess for bowel movement and passing flatulence. Will consult surgery again if indicated. - Patient will need to follow up with PCP upon discharge for the incidental findings listed above # Transaminitis, resolving # Hyperbilirubinemia, resolved #Hepatitis C At the time of admission patient was found to have bilirubin of 1.6, AST 146, ALT 61 ---> 03/31, AST 76, ALT 74 --> 04/03, AST 42 , ALT 65 DDx: Fatty liver versus chronic liver disease versus viral hepatitis versus secondary to ongoing septic shock and possible suspected ischemia Tested positive for hepatitis C antibody. Liver ultrasound showed 10 mm gallstone, CBD enlarged 0.6 cm, liver 18.5 cm fatty infiltration Plan: - Will continue to monitor liver functions - Patient has to follow-up with senior graphic designer on discharge on outpatient basis for follow-up on hepatitis C, currently does not suspect any active viral hepatitis # High anion gap metabolic acidosis # Lactic acidosis, resolved Likely in the setting of ongoing shock, likely due to sepsis. At the time of admission, anion gap is 19, lactate is 4.7 ---> /20, AG 22, Lactate 1.1 --> 8/ AG 16, lactate 1.1 Anion gap improved on day of admission and lactic acidosis is slowly improving after starting CRRT. Plan: - Received CRRT on 03/27 and 03/28, HD on 03/29, 03/30, 03/31, 04/03, 04/04, 04/06 - Will continue to monitor lab values # Rhabdomyolysis, resolved Patient happened to be on the floor lying down for 4 to 5 hours and also tested positive for methamphetamine on urine toxicology CK at the time of presentation is 9752 and received 2 L of fluid in the ED, as patient is fluid overloaded cannot give more fluids CK levels continue to trend down slowly to 1187. Plan: -CTM # Uncontrolled type 2 diabetes mellitus Patient is not following any primary care provider and not taking medications properly per patient's family. Blood glucose at the time of admission is 550 for which patient was given 10 units of lispro in the ED. The patient had high anion gap metabolic acidosis, tested negative for beta- hydroxybutyrate and DKA is ruled out. A1C: 13.6 Patient achieving appropriate glucose control with current regimen Plan: - Degludec 24 U QHS + ISS step 3 - Will titrate degludec according to FBS # Chronic right leg wound Likely from uncontrolled diabetes mellitus and venous congestion. On physical examination, noted 5 x 6 cm wound with well-healing granulation tissue. Arterial Doppler was ordered which showed no PAD in bilateral lower extremities Plan - Wound care consulted - Continue Vitamin C 250mg BID - Continue Zinc sulfate 220mg Qday x14 days (04/03-) - Nephro-Vu # History of asthma Unclear if patient is using inhalers or if she has recent exacerbations. Currently does not appear to be in any exacerbations Plan: -CTM Health Maintenance: Diet: Full liquid with cons carb GI prophylaxis: Protonix DVT prophylaxis: Heparin subcut 5000 units every 8 hours Antibiotics: Cefepime 2 g IV, Vancomycin (pharm to dose) CODE STATUS: Full Disposition: HAP management Case discussed with attending Dr. Dubois and senior resident Dr. Adis Rand, DO PGY1
[2025-04-06] MEDS: ZINC SULFATE 220 MG CAPSULE PO (12:57)
[2025-04-06] MEDS: ASCORBIC ACID 250 MG TABLET PO ×2 (12:57→22:22)
[2025-04-06] MEDS: NICOTINE PATCH 21 MG/24 HR PATCH.TD24 TOP (12:57)
[2025-04-06] MEDS: SEVELAMER CARBONATE 800 MG TABLET PO (12:57)
[2025-04-06] MEDS: ASPIRIN EC 81 MG TABEC PO (12:59)
[2025-04-06] MEDS: HEPARIN SOD INJ 1000 UNIT/ML VIAL 10 ML 2600 UNIT INDWELLCAT (13:13)
[2025-04-06] MEDS: Magnesium Sulfate 4 GM Ivpb 4 GM/50 ML BAG IV (13:13)
[2025-04-06] MEDS: TUBERCULIN PPD INJ 5 UNIT/0.1 ML DOSE ID (13:34)
--- NOTE | 2025-04-06 15:50 | PC.SS ---
SS follow up note; Patient's Insurance auth is pending for Chair time through [employer] [employer]. Cultures to resolve. Patient will discharge home when medically cleared.
--- NOTE | 2025-04-06 16:10 | XR_ITS ---
Examination: Arterial duplex lower extremity study. Date and time of exam: April 06, 2025, 1623 hours INDICATIONS: Nonhealing right ankle wounds years Findings: Duplex sonographic imaging of the lower extremity arteries using B-mode/Canales scale imaging and Doppler spectral analysis and color flow. Ankle brachial indices have been recorded. Right common femoral artery demonstrates triphasic flow. Right superficial femoral artery demonstrates triphasic flow. Right popliteal artery demonstrates triphasic flow. Right posterior tibial artery demonstrated triphasic flow. Right ankle/brachial index is 1.9. Left common femoral artery demonstrates triphasic flow. Left superficial femoral artery demonstrates triphasic flow. Left popliteal artery demonstrates triphasic flow. Left posterior tibial artery demonstrated triphasic flow. Left ankle/brachial index is 0.95. Impression: Abnormal left leg ankle brachial index consistent with obstructive arterial disease Given the patient's history, consider CTA abdominal aorta iliofemoral runoff post intravenous contrast follow-up
[2025-04-06] MEDS: HYDROmorphone INJ 2 MG/ML VIAL 0.5 MG IVP (16:19)
--- NOTE | 2025-04-06 20:51 | PD.NEUROPROG ---
Documentation for date of: 04/06/25 Subjective Subjective Interval history: Patient was seen in telemetry today, c/o generalized aches and pains and got restless and was given Dilaudid and is under the effect of it at present. Exam - Neurology Vital Signs Temp Pulse Resp BP Pulse Ox O2 Del Method O2 Flow Rate 97.9 F 72 16 122/68 90 L Room Air 4 04/06/25 16:00 04/06/25 18:19 04/06/25 18:19 04/06/25 16:21 04/06/25 18:19 04/06/25 16:00 04/06/25 12:00 FiO2 40 04/05/25 04:00 Narrative Exam GENERAL APPEARANCE: Well hydrated, well-nourished in no acute distress. HEENT: Normocephalic, atraumatic, extraocular movements intact. Pupils: Equal reacting to light and accommodation NECK: Supple, no JVD or bruits. CARDIOVASULAR: Heart: S1, S2 heard, regular without S3-S4 or murmur no rubs or gallops. LUNGS/CHEST: Clear to auscultation bilaterally. No rails, rhonchi, or wheezing. Normal inspection. ABDOMEN: Soft, nontender, with normal bowel sounds. No pulsatile masses. No rebound, rigidity, or guarding. Normal inspection and palpation. EXTREMITIES: Normal inspection and palpation. No edema, clubbing or cyanosis. SKIN: Warm and dry without rashes. Normal inspection. MUSCULOSKELETAL: No cervical, thoracic, lumbar or midline bony tenderness. Normal inspection. NEURO: Resting under the effect of Dilaudid, exam is limited but no focal neurological deficit noted. No signs of meningeal irritation noted. PSYCHIATRIC: Limited Objective Labs 04/07/25 04:43 04/07/25 04:43 Labs: Laboratory Results - last 24 hr 04/01/25 04/01/25 04/06/25 04:44 09:01 04:52 WBC 15.8 H RBC 3.51 L Hgb 10.4 L Hct 31.3 L MCV 89 MCH 29.6 MCHC 33.2 RDW Std Deviation 48.6 H Plt Count 501 H D Neut % (Auto) 70 Lymph % (Auto) 14 [place] % (Auto) 8 Eos % (Auto) 2 Baso % (Auto) 1 Neut # (Auto) 11.1 H Lymph # (Auto) 2.3 [place] # (Auto) 1.3 H Eos # (Auto) 0.3 Baso # (Auto) 0.1 Immature Gran # (Auto) 0.79 H Absolute Nucleated RBC 0.00 Immature Gran % 5 H Nucleated RBC % 0 Lupus Anticoagulant SEE NOTE LA PTT Screen 45 H LA Thrombin Time 17 LA dRVVT Screen Ratio 44 LA dRVVT Confirm Ratio TNP LA dRVVT Mix Ratio TNP dRVVT Mix Interpret TNP Hexagonal Phase Confirm WEAKLY POSITIVE A Protein C Activity 132 Protein S Activity 87 Sodium 136 Potassium 3.8 Chloride 97 L Carbon Dioxide 24.5 Anion Gap 15 BUN 43 H Creatinine 4.0 H Estim Creat Clear Calc 15.5 L eGFR 12 L* BUN/Creatinine Ratio 11 L Glucose 126 H Calculated Osmolality 284 Calcium 9.4 Corrected Calcium 9.9 Phosphorus 5.5 H Magnesium 1.6 Total Bilirubin 0.4 AST 31 ALT 41 Alkaline Phosphatase 81 Total Protein 6.3 Albumin 3.4 L Globulin 2.9 Albumin/Globulin Ratio 1.2 Random Vancomycin 32.9 ABG Interpretation ABG results: 03/26/25 03/26/25 03/26/25 11:18 11:44 16:23 ABG pH 7.27 L Cancelled ABG pCO2 40 Cancelled ABG pO2 146 H Cancelled ABG HCO3 18 L Cancelled ABG O2 Saturation 100 H Cancelled ABG Base Excess -8 L Cancelled VBG pH 7.19 L VBG pCO2 48 VBG pO2 37 VBG Base Excess -10 L 03/26/25 03/27/25 03/27/25 18:43 00:17 03:42 ABG pH 7.16 L* D 7.24 L Cancelled ABG pCO2 58 H D 44 D Cancelled ABG pO2 68 L D 80 L Cancelled ABG HCO3 21 19 L Cancelled ABG O2 Saturation 90 L 96 Cancelled ABG Base Excess -9 L -8 L Cancelled VBG pH VBG pCO2 VBG pO2 VBG Base Excess 03/27/25 03/27/25 03/27/25 04:04 07:55 18:48 ABG pH 7.26 L 7.30 L ABG pCO2 43 37 ABG pO2 83 174 H D ABG HCO3 19 L 18 L ABG O2 Saturation 97 101 H ABG Base Excess -7 L -8 L VBG pH 7.21 L 7.31 L VBG pCO2 49 48 VBG pO2 54 52 VBG Base Excess -8 L -2 03/27/25 03/28/25 03/28/25 19:07 04:06 13:37 ABG pH 7.36 7.38 7.41 ABG pCO2 41 45 44 ABG pO2 79 L D 73 L 105 D ABG HCO3 23 27 H 27 H ABG O2 Saturation 97 96 99 H ABG Base Excess -2 1 2 VBG pH VBG pCO2 VBG pO2 VBG Base Excess 03/29/25 03/30/25 03/31/25 04:45 04:50 04:40 ABG pH 7.38 7.42 7.39 ABG pCO2 45 40 41 ABG pO2 72 L D 66 L 63 L ABG HCO3 27 H 26 25 ABG O2 Saturation 98 93 92 ABG Base Excess 1 2 0 VBG pH VBG pCO2 VBG pO2 VBG Base Excess 03/31/25 17:30 ABG pH 7.39 ABG pCO2 36 ABG pO2 80 L ABG HCO3 21 ABG O2 Saturation 96 ABG Base Excess -3 VBG pH VBG pCO2 VBG pO2 VBG Base Excess Assessment & Plan Assessment and plan (1) Ischemic cerebrovascular accident (CVA): Status: Acute (2) Uncontrolled diabetes mellitus: Status: Chronic (3) Pneumonia: Status: Acute Additional Assessment & Plan Additional Plan: (1) Ischemic cerebrovascular accident (CVA): Status: Acute Assessment and plan: With the recent CTs showing findings suspicious for subarachnoid and intracerebral hemorrhage Continue with aspirin 81 mg and statin Follow-up with the hypercoagulopathy workup Continue with the physical therapy and Occupational Therapy as she tolerates Ordered repeat CT head to decide about further management (2) Uncontrolled diabetes mellitus: Status: Chronic Assessment and plan: Continue to check fingerstick glucose and follow sliding scale insulin per protocol (3) Pulmonary embolism: Status: Chronic Assessment and plan: She got the IVC filter placement Anticoagulation is difficult to decide from concurrent intracerebral and subarachnoid hemorrhage on the CT head
[2025-04-06] MEDS: CEFEPIME INJ 2 GM in SODIUM CHLORIDE 0.9% (Popper) 50 ML IV (22:20)
[2025-04-06] MEDS: ATORVASTATIN CALCIUM 20 MG TABLET 80 MG PO (22:21)
[2025-04-06] MEDS: GABAPENTIN 100 MG CAPSULE PO (22:22)
--- NOTE | 2025-04-06 22:43 | PC.NURSE ---
Made Dr. Miner aware of patients blood sugar 117 mg/dL clarifying if patient should have 24 units of long acting insulin tonight. patient to be NPO after midnight. per MD holden to give long acting Insulin now . to check Blood sugar at Midnight and make patient Q6 blood sugar check there after
[2025-04-06] MEDS: INSULIN DEGLUDEC 5 UNIT/0.05 ML (PER 5 UNITS) 24 UNIT SC (22:54)
[2025-04-07] VITALS (20 sets, daily range): BP systolic 113–148; BP diastolic 52–78; PULSE 72–103; RESP 13–20; TEMP 36.1–36.7; O2SAT 90–100; BMI 36.1
--- NOTE | 2025-04-07 | XR_ITS ---
Date: 04/07/2025, 2:16 PM. Exam: Attempted right dialysis catheter placement. INDICATION: Renal failure. PROCEDURE: After discussion of risk and benefits informed consent was obtained from the patient's . Patient was brought to the angiography suite and placed supine on the exam table. Preliminary ultrasound evaluation demonstrated the right IJ to be patent. The overlying skin was cleaned and draped in normal sterile surgical fashion. Conscious sedation was begun with direct continuous nursing supervision. Patient could not hold still and would not tolerate procedure. Local lidocaine could not be demonstrated due to patient motion. Procedure was terminated. IMPRESSION: Unsuccessful attempted right IJ PermCath placement. Patient could not tolerate procedure due to limitations of conscious sedation. If dialysis catheter is needed recommend placement in OR with anesthesia.
[2025-04-07] MEDS: ALBUTEROL/IPRATROPIUM (Duoneb) RT SOL 3 ML NEBU INH ×4 (01:41→18:50)
[2025-04-07] MEDS: GABAPENTIN 100 MG CAPSULE PO (05:45)
[2025-04-07 06:17] LABS: Basophils # (Auto) 0.1 Thou/mm3 (0.0-0.2); Basophils % (Auto) 1 % (0-2.5); Eosinophils # (Auto) 0.2 Thou/mm3 (0.0-0.5); Eosinophils % (Auto) 1 % (0-10); Hematocrit 33.4 % (36.0-46.0); Hemoglobin 10.7 g/dL (12.0-16.0); Immature Granulocytes Auto 0.77 Thou/mm3 (0.00-0.00); Lymphocytes # (Auto) 1.9 Thou/mm3 (1.0-4.8); Lymphocytes % (Auto) 14 % (10-50); Mean Corpuscular HGB Conc 32.0 g/dl (31.0-37.0); Mean Corpuscular Hemoglobin 29.0 pg (25.0-35.0); Mean Corpuscular Volume 91 fL (80-100); Monocytes # (Auto) 1.2 Thou/mm3 (0.0-0.8); Monocytes % (Auto) 9 % (0-12); Neutrophils # (Auto) 9.1 Thou/mm3 (1.8-7.7); Neutrophils % (Auto) 69 % (37-80); Nucleated Red Blood Cell # 0.00 Thou/mm3 (0.00-0.00); Nucleated Red Blood Cell % 0 /100 WBC (0); Platelet Count 505 Thou/mm3 (140-440); RDW Standard Deviation 50.4 fL (36.4-46.3); Red Blood Count 3.69 Miln/mm3 (4.00-5.20); White Blood Count 13.3 Thou/mm3 (3.6-11.0)
[2025-04-07 06:28] LABS: Protein C Activity* 148 % normal (70-180); Protein C Antigen, Total* 90 % normal (70-140)
[2025-04-07 06:30] LABS: Antithrombin III, Activity 85 % normal (80-135); Antithrombin III, Antigen 93 % normal (80-120); Protein S Activity* 69 % normal (60-140); Protein S Antigen, Total* 104 % normal (70-140)
[2025-04-07 06:39] LABS: Alanine Aminotransferase 29 U/L (10-49); Albumin, Serum 3.7 gm/dL (3.5-5.0); Albumin/Globulin Ratio 1.3 (1.2-2.2); Alkaline Phosphatase 72 U/L (46-116); Anion Gap 13 (7-16); Aspartate Amino Transferase 25 U/L (0-34); BUN/Creatinine Ratio 8 Ratio (12-20); Bilirubin,Total 0.5 mg/dL (0.3-1.2); Blood Urea Nitrogen 24 mg/dL (9-23); Calcium 9.4 mg/dL (8.3-10.6); Calcium (Corrected) 9.6 mg/dL (8.5-10.1); Carbon Dioxide 24.8 mMol/L (20.0-31.0); Chloride 100 mMol/L (98-107); Creatinine (Component) 3.0 mg/dL (0.6-1.3); Estimated Creatinine Clearance 20.7 mL/min (>60); Globulin 2.9 gm/dL (2.3-3.5); Glucose 120 mg/dL (74-106); Magnesium 2.3 mg/dL (1.6-2.6); Osmolality,Calculated 280 (275-295); Phosphorous 4.6 mg/dL (2.4-5.1); Potassium 4.1 mMol/L (3.4-5.1); Sodium 138 mMol/L (136-145); Total Protein 6.6 gm/dL (5.7-8.2); Vancomycin,Random 21.7 mcg/mL; eGFR 17 See Note
[2025-04-07] MEDS: HYDROmorphone INJ 2 MG/ML VIAL 1 MG IVP ×2 (07:49→20:11)
--- NOTE | 2025-04-07 08:02 | ESPR_ITS ---
<Statement entered by Hayley Dubois MD - 04/10/25 15:13> I reviewed above note and agree with findings and plans. I have also personally examined the patient with medicine team and went over assessment and plan with medical team including internet sales director and resident physician. <Statement entered by Kentrell Hendricks MD - 04/07/25 17:12> Patient was examined and case was reviewed with team including attending physician. Note reviewed, I agree with most of its contents and agree with the patient's care as documented by Dr. Rand Patient seen evaluated at the bedside. Vital signs labs reviewed. Spoke to the family in regards to patient needing anticoagulation for management of pulmonary embolism and DVT. Explained the risk versus benefits as patient has a subarachnoid bleed. Will await final recommendations by neurology in regards to anticoagulation. Patient and family expressed understanding. Case discussed with my attending Dr. Sherly Hendricks MD PGY-2 Disclaimer: Despite multiple revisions, due to the dictation software being used, the document bellow may not be free of grammatical errors including phonetic/typographic errors. However, this does not deter from our commitment to providing health care in the patient's best interest in mind. Documentation for date of: 04/07/25 Subjective Subjective Interval history: 04/07/25: NAEON. Patient remains afebrile with stable vital signs. Patient will undergo placement of perm cath for dialysis today with IR. Patient has been complaining of feet pain since yesterday. Gabapentin and dilaudid were given with good relief of symptoms yesterday. No other complaints at this time. Patient's brother and at bedside, discussed with them and patient regarding the current plan of starting anticoagulation medication if cleared by neurology team after the repeat CT scan. Explained to patient and their family members regarding risks and benefits of starting antocoagulaitons. Explained to them that if we dont start anticoagulations her PE and DVT may have negative consequenses and she may be at risk for more thrombuses and if we do start these medications she may be at risk for new brain hemorrhage or bleedings else where in her body. Patient and family understands the risks and benefits and agree with the plan of starting anticoagulations if prompted by the neurology team. Exam Vital Signs Temp Pulse Resp BP Pulse Ox O2 Del Method O2 Flow Rate 97.6 F 82 19 127/65 99 Room Air 4 08/26/25 00:00 04/07/25 06:24 04/07/25 06:24 04/07/25 05:42 04/07/25 06:24 04/07/25 00:00 04/06/25 12:00 FiO2 40 04/05/25 04:00 Narrative Exam General: Off sedation, appears comfortable. Poor hygiene. A/O x2 HEENT: Normocephalic, atraumatic, mucous membranes moist. Heart: Regular rate and rhythm, no murmurs. Lungs: Clear to auscultation with no wheezing or crackles. Abdomen: Soft, mildly distended, mild discomfort to palpation throughout. No guarding or rebound tenderness. Neurologic: Bilateral pupils are equal and reacting to light. Able to move all extremities. Muscle strength 4/5 throughout. Extremities: Noted surgical scar on the left knee likely from TKR. Noted chronic wound of 5 x 6 cm in the right lower extremity. Noted tissue pressure injuries on the upper lateral right and left thigh. Also noted infected area in the right toe and left 1st and 5th toes. Skin: No rash or ecchymoses. Objective Labs 04/07/25 04:43 04/07/25 04:43 Labs: Laboratory Results - last 24 hr 04/02/25 04/07/25 04:25 04:43 WBC 13.3 H RBC 3.69 L Hgb 10.7 L Hct 33.4 L MCV 91 MCH 29.0 MCHC 32.0 RDW Std Deviation 50.4 H Plt Count 505 H Neut % (Auto) 69 Lymph % (Auto) 14 Citrus % (Auto) 9 Eos % (Auto) 1 Baso % (Auto) 1 Neut # (Auto) 9.1 H Lymph # (Auto) 1.9 Citrus # (Auto) 1.2 H Eos # (Auto) 0.2 Baso # (Auto) 0.1 Immature Gran # (Auto) 0.77 H Absolute Nucleated RBC 0.00 Immature Gran % 6 H Nucleated RBC % 0 Protein C Antigen 90 Protein C Activity 148 Protein S Activity 69 Total Protein S Ag 104 Antithrombin III Ag 93 Antithrombin III Activ 85 Sodium 138 Potassium 4.1 Chloride 100 Carbon Dioxide 24.8 Anion Gap 13 BUN 24 H Creatinine 3.0 H D Estim Creat Clear Calc 20.7 L eGFR 17 L BUN/Creatinine Ratio 8 L Glucose 120 H Calculated Osmolality 280 Calcium 9.4 Corrected Calcium 9.6 Phosphorus 4.6 Magnesium 2.3 Total Bilirubin 0.5 AST 25 ALT 29 Alkaline Phosphatase 72 Total Protein 6.6 Albumin 3.7 Globulin 2.9 Albumin/Globulin Ratio 1.3 Random Vancomycin 21.7 ABG Interpretation ABG results: 03/26/25 03/26/25 03/26/25 11:18 11:44 16:23 ABG pH 7.27 L Cancelled ABG pCO2 40 Cancelled ABG pO2 146 H Cancelled ABG HCO3 18 L Cancelled ABG O2 Saturation 100 H Cancelled ABG Base Excess -8 L Cancelled VBG pH 7.19 L VBG pCO2 48 VBG pO2 37 VBG Base Excess -10 L 03/26/25 03/27/25 03/27/25 18:43 00:17 03:42 ABG pH 7.16 L* D 7.24 L Cancelled ABG pCO2 58 H D 44 D Cancelled ABG pO2 68 L D 80 L Cancelled ABG HCO3 21 19 L Cancelled ABG O2 Saturation 90 L 96 Cancelled ABG Base Excess -9 L -8 L Cancelled VBG pH VBG pCO2 VBG pO2 VBG Base Excess 03/27/25 03/27/25 03/27/25 04:04 07:55 18:48 ABG pH 7.26 L 7.30 L ABG pCO2 43 37 ABG pO2 83 174 H D ABG HCO3 19 L 18 L ABG O2 Saturation 97 101 H ABG Base Excess -7 L -8 L VBG pH 7.21 L 7.31 L VBG pCO2 49 48 VBG pO2 54 52 VBG Base Excess -8 L -2 03/27/25 03/28/25 03/28/25 19:07 04:06 13:37 ABG pH 7.36 7.38 7.41 ABG pCO2 41 45 44 ABG pO2 79 L D 73 L 105 D ABG HCO3 23 27 H 27 H ABG O2 Saturation 97 96 99 H ABG Base Excess -2 1 2 VBG pH VBG pCO2 VBG pO2 VBG Base Excess 03/29/25 03/30/25 03/31/25 04:45 04:50 04:40 ABG pH 7.38 7.42 7.39 ABG pCO2 45 40 41 ABG pO2 72 L D 66 L 63 L ABG HCO3 27 H 26 25 ABG O2 Saturation 98 93 92 ABG Base Excess 1 2 0 VBG pH VBG pCO2 VBG pO2 VBG Base Excess 03/31/25 17:30 ABG pH 7.39 ABG pCO2 36 ABG pO2 80 L ABG HCO3 21 ABG O2 Saturation 96 ABG Base Excess -3 VBG pH VBG pCO2 VBG pO2 VBG Base Excess Quality Measures Quality Measures VTE prophylaxis Assessment & Plan Assessment Current Active Medications: Generic Name Dose Route Start Last Admin Trade Name Freq PRN Reason Stop Dose Admin Acetaminophen 650 mg 04/01/25 09:12 04/03/25 08:21 Acetaminophen 325 Mg Tablet PO 04/25/25 18:57 650 mg Q4HR PRN Administration Pain Scale 1-3 OR fever >100.4 Albuterol/Ipratropium 3 ml 03/27/25 01:00 04/07/25 06:23 Albuterol/Ipratropium (Duoneb) Rt Jennifer 3 Ml Nebu INH 04/26/25 00:59 3 ml Q6HRRT CRIS Administration Amlodipine Besylate 10 mg 04/02/25 09:00 04/06/25 12:57 Amlodipine Besylate 5 Mg Tablet PO 05/02/25 08:59 10 mg QDAY CRIS Administration Ascorbic Acid 250 mg 04/03/25 12:00 04/06/25 22:22 Ascorbic Acid 250 Mg Tablet PO 05/03/25 11:59 250 mg BID CRIS Administration Aspirin 81 mg 04/01/25 09:30 04/06/25 12:59 Aspirin Ec 81 Mg Tabec PO 05/01/25 09:29 81 mg QDAY CRIS Administration Atorvastatin Calcium 80 mg 03/26/25 21:00 04/06/25 22:21 Atorvastatin Calcium 20 Mg Tablet PO 04/25/25 20:59 80 mg HS CRIS Administration Carvedilol 6.25 mg 04/01/25 17:30 04/06/25 21:50 Carvedilol 3.125 Mg Tablet PO 05/01/25 17:29 Not Given BIDWM CRIS Dextrose 25 ml 03/26/25 20:20 Dextrose 50%-Water Inj 50 Ml Syringe IV 04/25/25 20:19 Q15MIN PRN BG 50-70 responsive npo pt Dextrose 50 ml 03/26/25 20:20 Dextrose 50%-Water Inj 50 Ml Syringe IV 04/25/25 20:19 Q15MIN PRN BG <50 OR BG <70 & pt unresponsive Gabapentin 100 mg 04/06/25 22:00 04/07/25 05:45 Gabapentin 100 Mg Capsule PO 05/06/25 21:59 100 mg TID CRIS Administration Glucagon 1 mg 03/26/25 20:20 Glucagon Inj 1 Mg Vial IM Q15MIN PRN BG <70, and no IV access Heparin Sodium (Porcine) 5,000 unit 03/27/25 14:00 04/07/25 05:42 Heparin Sod Inj 5000 Unit/Ml Vial SC 04/10/25 13:59 Not Given Q8HR CRIS Heparin Sodium (Porcine) 2,600 unit 03/28/25 19:33 04/06/25 13:13 Heparin Sod Inj 1000 Unit/Ml Vial 10 Ml INDWELLCAT 04/11/25 19:32 2,600 unit X1 PRN Administration DIALYSIS Hydralazine HCl 25 mg 04/01/25 14:00 04/07/25 05:42 Hydralazine Hcl 25 Mg Tablet PO 05/01/25 13:59 Not Given TID CRIS Hydromorphone HCl 1 mg 04/03/25 15:33 04/07/25 07:49 Hydromorphone Inj 2 Mg/Ml Vial IVP 04/08/25 15:32 1 mg Q4HR PRN Administration PAIN SCALE 4-10(Mod-Sev Cefepime HCl 2 gm/ Sodium 50 mls @ 100 mls/hr 04/04/25 12:45 04/06/25 22:20 Chloride IV 04/11/25 12:44 100 mls/hr QDAY@1800 CRIS Administration Insulin Degludec 24 unit 04/01/25 21:00 04/06/25 22:54 Insulin Degludec 5 Unit/0.05 Ml (Per 5 Units) SC 05/01/25 20:59 24 unit HS [facility] Administration Insulin Human Lispro 0 unit 04/04/25 21:00 04/06/25 21:49 Insulin Lispro (Admelog) 1 Unit/0.01 Ml Unit SC 05/04/25 20:59 Not Given ACHS [facility] Protocol Labetalol HCl 10 mg 04/01/25 11:16 Labetalol Inj 5 Mg/Ml Vial 20 Ml IVP 05/01/25 11:29 Q4HR PRN if SBP>140 Nicotine 21 mg 04/05/25 10:45 04/06/25 12:57 Nicotine Patch 21 Mg/24 Hr Patch.Td24 TOP 05/05/25 10:44 21 mg QDAY CRIS Administration Pharmacy Consult 1 each 04/04/25 12:30 Vancomycin Pharmacy To Dose 1 Each Each IV 05/04/25 12:29 QDAY PRN PROTOCOL Sevelamer Carbonate 800 mg 04/05/25 08:00 04/06/25 21:51 Sevelamer Carbonate 800 Mg Tablet PO 05/05/25 07:59 Not Given TIDWM CRIS Vitamin B Complex/Vit C/Folic Acid 1 tab 04/03/25 12:00 04/06/25 15:26 Vit B12/Vit C/Fa (Nephrovite) Tablet PO 05/03/25 11:59 Not Given QDAY CRIS Zinc Sulfate 220 mg 04/03/25 12:00 04/06/25 12:57 Zinc Sulfate 220 Mg Capsule PO 04/17/25 11:59 220 mg QDAY CRIS Administration Plan 59F with PMH of DM, HTN, asthma, drug use disorder, and a chronic right leg wound was brought to the ED after being found unresponsive at home where she was found to have acute encephalopathy with low GCS requiring intubation and ICU admission for ventilator support, pressor support for likely septic shock, and CRRT. Patient found to have multi embolic disease involving multiple systems including brain and left distal extremity, acute and failure with the cause likely renal emboli. #Acute encephalopathy, multifactorial, related to metabolic derangement, substance use, and embolic CVA (Resolving) #Acute Multiple embolic type foci occipital lobes, bilateral frontal and bilateral parietal lobe #Atrial septal aneurysm #PFO #Subarachnoid hemorrhage #Endocarditis - r/o #Tricuspid valve vegetation - r/o -Patient came in with altered sensorium and head CT at the time showed multiple bilateral infarcts, likely embolic. Patient was weaned off sedation and extubated on 03/31/2025, tolerated well. Currently, patient is improving and is alert and oriented. Patient has extensive DVT in the left lower extremity also noted to have pulmonary embolism, patient might be having embolism through PFO and reaching the systemic circulation. -TTE showed normal size left ventricle with mild apical and global hypokinesis LVEF 40-45%. Evidence of Tricuspid valve vegetation suggestive of endocarditis. The RV is normal in size. The right ventricular systolic function is mildly decreased. Aortic valve sclerosis thickened wih mild aortic regurgitation. Mitral valve thickening with mild mitral regurgitation. -SYLVIE (03/30/25) confirmed no vegetations. Noted to have atrial aneurysm bulging into left atrium, bubble study done showed PFO -EEG from 04/02/25 shows diffuse slowing suggestive of a diffuse encephalopathy of vascular origin. Per neurology team, given PE and small PFO, PE could be the cause of embolism vs endocardititis but less likely as negative SYLVIE for vegation. Although leukocytosis noted, less likely secondary to endocarditis in origin and more likely secondary to ischemia vs less likely increased coagulopathy as no previous history of DVTs. Hematology Dr. Krishna was consulted who agreed with the current plan. MR venogram negative for any thrombus New blood cx negative 1/2 samples positive for lupus anticoagulant. Weakly positive for hexagonal phase confirm test. Positive EFFIE. Pending the rest of hypercoagulopathy tests. Repeat brain CT (04/07/25) shows slightly less prominent subtle subarachinoid hemorrhage in the frontoparietal convexities compared to the previous scan. Also, low-density acute infarctions are now evident in the left frontoparietal, left posterior parietal lobbes that were not seen in the previous scan. Plan: - Discussed with patient and their family members regarding the current plan of starting anticoagulation medication if cleared by neurology team after the repeat CT scan. Explained to patient and their family members regarding risks and benefits of starting anticoagulation. Explained to them that if we don't start anticoagulation her PE and DVT may have negative consequences and she may be at risk for more thromboses and if we do start these medications she may be at risk for new brain hemorrhage or bleedings else where in her body. Patient and family understands the risks and benefits and agree with the plan of starting anticoagulation if prompted by the neurology team. - Given current comorbidities and current active medical problems, after discussion with family members, we have consulted Hospice, appreciate recs. - Will continue atorvastatin and Aspirin for now - Cannot start on heparin drip as patient noted to have hemorrhagic infarcts on repeat CT head done on 03/30/2025. Repeat CT head from 04/02 showed stable multiple areas of subarachnoid hemorrhage compared to 04/01 - IVC filter placement is done on 03/31/2025 to prevent further embolic strokes through PFO from DVT - No need of urgent PFO closure as per Dr. Nayak. - PT and speech therapy - Pending hypercoaugulable workup due to suspected Antiphospholipid syndrome due to DVT and other infarcts (Called [facility], results are estimated to be out by Sunday 04/08) #Septic shock #Hospital-Acquired PNA # UTI At the time of admission, patient was noted to have bilateral lower extremity edema and bilateral diffuse inspiratory crackles -possible heart failure in the setting of methamphetamine abuse, diabetes, hypertension. Also noted to have temperature of 101.8 ?F at the time of admission, likely due to some ongoing infection. Fits into 2/3 qsofa criteria. Noted to have GCS less than 15 and respiratory rate 35/min. Suspecting sepsis worsening the underlying heart failure resulting in suspected possible combined septic and cardiogenic shock. DDx: Combined cardiogenic and septic shock Patient was started on Levophed and weaned off completely on 03/30/2025 WBC on admission 13.1, procalcitonin 43.23. UA showed turbid urine with 2+ proteinuria, 3+ glucosuria, 112 WBC, 4+ bacteria suggestive of UTI. Urine culture positive for E.coli, blood cultures negative. TTE showed vegetations of the trisupid valve concerning for endocarditis. WBC now down trending to 13.3 from 21.6 3 days ago. Patient remains afebrile. Initially patient was started on vancomycin and Zosyn [03/27-03/30], discontinued Vanco and Zosyn, Started on Rocephin (03/30-04/04) Blood cx and sputum culture negative Plan: - Continue Vancomycin and cefepime 2g to cover for HAP (04/04/25-) - Will continue to monitor vitals # Acute hypoxic respiratory failure, resolving # Respiratory acidosis, resolved #Pneumonia Per patient family, patient does not have any previous history of respiratory problems and is not using any inhalers. Not a smoker. ABG at the time of admission showed pH 7.16, pCO2 58, pO2 68, FiO2 100%. Repeat ABG done on 03/27/2024 showed pH 7.3, pCO2 37, bicarb 18. Repeat ABGs done after 03/28/2025 is within normal limits. CTA chest Positive for multiple right lower pulmonary artery filling defects. Positive for left upper lobe pulmonary artery filling defects. No emboli in the main pulmonary artery segments. Pneumonia versus infarction in both lower lung zones. CXR shows bibasilar pneumonia DDx: Sepsis, acute encephalopathy, pulmonary edema, pulmonary embolism, combined. Patient was intubated, sedated and placed on mechanical ventilator on 03/26 and extubated on 03/31. Though patient had pulmonary embolism, patient oxygen needs is coming down. CTA abd&pelvis on 04/04 still reveals pneumonia at the left base Plan: - Continue ABx as above - Will continue oxygen as needed for now. #KINJAL (Improving) #Acute renal failure likely 2/2 septic shock vs. renal emboli vs. rhabdomyolysis Patient does not follow-up any primary care doctor and unsure of her baseline kidney functions. Patient noted to have decreased urine output and oliguric since the time of admission. Creatinine at the time of admission is 2.8 --> 03/30, 2.4 --> 03/31, 3.1 --> 04/01, 4.9 --> 04/03, 5.5--> 04/07 3.0 DDx: Prerenal versus ATN in the setting of shock versus possible cardiorenal syndrome versus CKD in the setting of diabetes mellitus and hypertension versus embolic versus rhabdomyolysis Patient received HD yesterday; however, given persistant abnormal electrolyte, patient will have another HD today. Negative blood cx x2 Plan: - Patient did not tolerate perm cath placement today. We will reevaluate tomorrow - IV albumin prn - Held IV Bumex - Will continue to monitor urine output - Monitor renal panel - Avoid nephrotoxic agents (aminoglycosides, NSAIDs, radiographic contrast) - Adjust medication dosing based on patient's impaired renal function - Hold any KRISSY/ARB/diuretics - Hot Patcher, Dr. Zelaya is consulted and patient was started on CRRT through dialysis catheter placement in the right IJV on 03/27 - Received HD on 03/29, 03/30, 03/31, 04/03, 04/04 - Hold getting CT guided renal biopsy, to assess proteinuria - Started Sevelamer 800 mg TID with meals for hyperphosphatemia despite HD yesterday # HFrEF, EF 40 to 45% #Substance Use Disorder Unsure whether patient is regular methamphetamine user, as family members is not aware of the use. Patient also have severe uncontrolled diabetes mellitus, which could also contribute to the ischemic heart disease and CHF. Plan: - Patient should be started on GDMT but in the setting of ongoing acute kidney injury and recovering shock, will hold GDMT for now - Removed fluid through CRRT/HD #NSTEMI type type I (embolic HI) vs. Type 2 (demand ischemia 2/2 shock) In the setting of demand ischemia. Troponin at the time of admission is 0.427, peaked at 20.920 and later down trended. EKG did not show any ST-T wave changes Plan: - Will continue telemetry monitoring - [facility], Dr. Nayak is consulted and will follow the recommendations # Pulmonary embolism # DVT Patient was noted to have mismatch between end-tidal CO2 and arterial CO2, also noted to have increased oxygen requirements on the ventilator for which CTA chest was ordered on 03/28/2025 CTA chest was positive for multiple right lower pulmonary artery filling defects. Positive for left upper lobe pulmonary artery filling defects. No emboli in the main pulmonary artery segments. Pneumonia versus infarction in both lower lung zones. Echocardiogram did not show any RV strain, though patient noted to have elevated troponin with peak level at 20.920, later down trended. EKG did not show any signs suggestive of pulmonary embolism. Venous doppler of LLE showed extensive chronic nonocclusive DVT involving the common femoral left superficial femoral, popliteal, peroneal, posterior tibial and greater saphenous veins. Tubular structures in the right popliteal fossa 6.0 cm in left popliteal fossa Plan: - Patient cannot be anticoagulated as of now as patient had hemorrhagic infarcts in the brain and is high risk for bleeding - IVC filter is by Dr. Murillo on 03/31/2025 - Patient is not a candidate of mechanical thrombectomy as of now and does not seem to be in right heart failure #Hypertension Patient noted to have history of hypertension but not using any medications before coming to the hospital BP initially elevated with SBP around 180-190. Now stablizied around 130s-140s. Plan - Continue amlodipine and carvedilol - Will continue to monitor blood pressures and titrate medications as needed #Abdominal pain #Umbilical hernia with incarcerated fat #Gallbladder sludge #Prominent pancreatic head #Right hilum mass #Right lower lobe mass #Left adrenal gland mass #Uterine fundal mass Patient reported diffuse abdominal pain today (04/03/25). On exam, diffuse TTP noted mainly in RUQ and LUQ with no peritinic signs. Her LUQ could be due to the renal infarct that has been noted on recent CT. Lactate: 1.1 PROPULSION ENGINEER was called while receiving HD. CTA abd&pelvis was ordered which showed gallbladder sludge and 22mm umbilical hernia with incarcerated fat and negative for any bowel ischemia. Patient was placed NPO and OG tube was inserted however later was pulled out by pt. General surgery Dr. Wood was consulted who recommended no surgical intervention at this time given current comorbidities and the fact that the hernia is most likely chronic. RUQ US was ordered due to concern for budd chiari which was negative for gallstones, however showed thickened gallbladder wall of 0.45cm and prominent pancreatic head of 3.5cm and moderate hepatomegaly. Below incidental findings were also noted in the CTA abd&pelvis: Mass contiguous with the right hilum 32 mm Mass in the right lower lobe 28 mm Nodular thickening left adrenal gland measuring 24 mm Atrophic anteverted uterus with calcified uterine fundal mass Plan: - CTM - Advanced diet to full liquid. We will assess for patient''s tolerance and assess for bowel movement and passing flatulence. Will consult surgery again if indicated. - Patient will need to follow up with PCP upon discharge for the incidental findings listed above # Transaminitis, resolved # Hyperbilirubinemia, resolved #Hepatitis C At the time of admission patient was found to have bilirubin of 1.6, AST 146, ALT 61 ---> 8/19, AST 76, ALT 74 --> 8/, AST 42 , ALT 65--> 8/ AST 25, ALT 29 DDx: Fatty liver versus chronic liver disease versus viral hepatitis versus secondary to ongoing septic shock and possible suspected ischemia Tested positive for hepatitis C antibody. Liver ultrasound showed 10 mm gallstone, CBD enlarged 0.6 cm, liver 18.5 cm fatty infiltration Plan: - Will continue to monitor liver functions - Patient has to follow-up with wine fermenter on discharge on outpatient basis for follow-up on hepatitis C, currently does not suspect any active viral hepatitis # High anion gap metabolic acidosis # Lactic acidosis, resolved Likely in the setting of ongoing shock, likely due to sepsis. At the time of admission, anion gap is 19, lactate is 4.7 ---> 8/20, AG 22, Lactate 1.1 --> 8/22 AG 16, lactate 1.1 Anion gap improved on day of admission and lactic acidosis is slowly improving after starting CRRT. Plan: - Received CRRT on 03/27 and 03/28, HD on 03/29, 03/30, 03/31, 04/03, 04/04, 04/06 - Will continue to monitor lab values # Rhabdomyolysis, resolved Patient happened to be on the floor lying down for 4 to 5 hours and also tested positive for methamphetamine on urine toxicology CK at the time of presentation is 9752 and received 2 L of fluid in the ED, as patient is fluid overloaded cannot give more fluids CK levels continue to trend down slowly to 1187. Plan: -CTM # Uncontrolled type 2 diabetes mellitus Patient is not following any primary care provider and not taking medications properly per patient's family. Blood glucose at the time of admission is 550 for which patient was given 10 units of lispro in the ED. The patient had high anion gap metabolic acidosis, tested negative for beta- hydroxybutyrate and DKA is ruled out. A1C: 13.6 Patient achieving appropriate glucose control with current regimen Plan: - Degludec 24 U QHS + ISS step 3 - Will titrate degludec according to FBS # Chronic right leg wound Likely from uncontrolled diabetes mellitus and venous congestion. On physical examination, noted 5 x 6 cm wound with well-healing granulation tissue. Arterial Doppler was ordered which showed no PAD in bilateral lower extremities Plan - Wound care consulted - Continue Vitamin C 250mg BID - Continue Zinc sulfate 220mg Qday x14 days (04/03-) - Nephro-Vu # History of asthma Unclear if patient is using inhalers or if she has recent exacerbations. Currently does not appear to be in any exacerbations Plan: -CTM Health Maintenance: Diet: cons carb GI prophylaxis: Protonix DVT prophylaxis: Heparin subcut 5000 units every 8 hours Antibiotics: Cefepime 2 g IV, Vancomycin (pharm to dose) CODE STATUS: Full Disposition: HAP management Case discussed with attending Dr. Dubois and senior resident Dr. Adis Rand, DO PGY1
--- NOTE | 2025-04-07 08:16 | ESCONSULT_ITS ---
RE: MARCOS MULLER : 1965 DATE OF CONSULTATION: 04/06/2025 This consultation was dictated first time on 04/01/2025. REASON FOR CONSULTATION: 1. Multiple emboli to the brain and the lung. 2. Splenic artery infarct. HISTORY OF PRESENT ILLNESS: Ms. Muller is a 59-year-old female with past medical history of diabetes mellitus, hypertension, asthma, chronic right leg wound brought to the hospital because of altered consciousness. She was lying unconscious on the floor on the day of admission by her , but he left for work and the patient was lying down on the floor. Informed her mother and sister about her condition who came home and found the patient unconscious. EMT was called and the patient was brought to the hospital. The patient had pinpoint pupils. Respiratory rate was 4. She was given multiple doses of Narcan and the patient was more alert when she was in the ER. Her temperature was 101.3. Respiratory rate was 35 with low saturation for which the patient was started on BiPAP. She became more alert, hypoxic, and the patient was intubated in the emergency room, so most of the information was gathered through the record. She was also given Lasix and 2 L of fluid was given of the suspected sepsis. A WBC count was elevated at 13.1, creatinine of 2.8, bicarb was 18.1, lactate was 4.7, glucose was 550, AST was 146, ALT was 61, creatinine kinase was 9,752, prolactin was 43.23. She had multiple embolic strokes on MRI. She was started on aspirin and atorvastatin. No thrombolysis was given because she was out of the window. She was admitted to the hospital in ICU because of respiratory failure and because of multiple thrombi this consultation was obtained. PAST MEDICAL HISTORY: As mentioned above. PAST SURGICAL HISTORY: No information in regards to her surgery. ALLERGIES: Not known. SOCIAL HISTORY: Past history of active smoker, 46 pack per year history, remote heroin abuse, methamphetamine use, and marijuana use. PHYSICAL EXAMINATION: General: She is intubated. HEENT: Her pupils are reactive to light and accommodation. Sclerae nonicteric. Neck: Supple. No JVD or palpable mass. Lungs: Good air entry bilaterally. They are clear to auscultation or percussion. Heart: Regular. Abdomen: Soft. Bowel sounds are present. Extremities: 3+ pedal pulses. There is no cyanosis. There is edema with chronic wound on her right leg. 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 IMAGING: CT of the head done on 03/30/2025 showed abnormal focal area of edema and mass consistent with hemorrhagic infarct in the left frontal parietal lobe and left occipital lobe as above. CTA chest done on 03/28/2025 showed a positive or multiple right lower lobe pulmonary artery and left upper lobe pulmonary artery emboli. An MRI of the brain done on 03/26/2025 showed multiple embolic type of restricted diffusion, bilateral occipital lobes, bilateral frontal and bilateral parietal lobes, most consistent with acute infarct. ASSESSMENT AND PLAN: I have taken ordering some blood tests. I will follow this patient with you and I ordered according to the clinical situation. I thank you, Dr. Gerardo Walden, for letting me participate in the care of this interesting patient. If you have any questions, please follow this patient with regarding the clinical situation. I thank you, Dr. Gerardo Walden, for letting me participate in the care of this interesting patient. If you have any questions, please feel free to contact me. DT: 17:30:37 TT: 18:27:00 Ref: [id number] - TID: [id number]
--- NOTE | 2025-04-07 08:42 | ESCONSULT_ITS ---
RE: MARCOS MULLER : 1965 DATE OF CONSULTATION: 04/01/25 REFERRING PHYSICIAN: Dr. Luann Grady. REASON FOR CONSULTATION: 1. Bilateral pulmonary emboli. 2. Large splenic artery infarct with decreased opacification, splenic parenchyma and thrombus in upper lobe splenic artery. 3. Extensive nonocclusive DVT in the left lower extremity. HISTORY OF PRESENT ILLNESS: Ms. Baron is a 59-year-old female who is intubated, and information was gathered through the record. It is noted that she has a past medical history of diabetes mellitus, hypertension, asthma, and a chronic right leg wound. She was brought to the emergency room because of altered sensorium. She was unconscious, lying on the floor around 4 a.m. on the day of admission by her and then left for work. The patient was found lying on the floor and later on EMT were called, and the patient was brought to the hospital. The patient was found to be in sepsis. She had a temperature of 101.3. Respiratory rate was 35 with low saturation, and the patient was started on BiPAP. Later, as the patient was becoming more alert and hypoxic, the patient was intubated in the ER. She had bilateral respiratory crackles for which she was given Lasix and fluid for sepsis. WBC was 13.1, creatinine of 2.8, bicarb was 18.1, lactic acid was 4.7, glucose was 550, AST was 146, ALT was 66, prolactin was 43.23. She had multiple embolic strokes on MRI with MR angiogram for which teleneuro was consulted, and the patient was started on aspirin and atorvastatin. She was given thrombolysis treatment, but as the patient came out of the window and because of these multiple thrombotic events, this consultation was obtained. PAST MEDICAL HISTORY: As mentioned he has diabetes, hypertension, asthma, and chronic right leg wound. PAST SURGICAL HISTORY: No information regarding any surgeries. SOCIAL HISTORY: Active smoker, 11-[id number]-jwv-year history, remote heroin abuse, meth abuse, and also use of marijuana. No other information is available. ALLERGIES: NOT KNOWN. PHYSICAL EXAMINATION: GENERAL: She is intubated, but opens her eyes. HEENT: The pupils are dilated. NECK: Supple. LUNGS: She is intubated. Lungs has good air entry, but she is on vent support. HEART: Regular. ABDOMEN: Soft. Bowel sounds are present. EXTREMITIES: More than 3+ pitting edema with a dressing on the right lower leg. CENTRAL NERVOUS SYSTEM: The patient is intubated and sedated. LABORATORY DATA: Blood work today showed WBC of 17.2, hemoglobin 10, hematocrit 31.9, and platelet count of 204,000. IMAGING: Her CT of the chest, abdomen, and pelvis showed no left atrial thrombus. Again noted pulmonary artery emboli in upper and lower lobe pulmonary artery branches, pneumonia versus infarct in the right upper lobe in both bases. Large splenic infarct with thrombus in the upper lobe splenic arteries. Doppler study of the leg showed an extensive nonocclusive DVT in the left lower extremity. She already has an IVC filter, and transesophageal echocardiogram is pending. Carotid Dopplers, right internal carotid artery demonstrates 30-40% stenosis, left internal carotid artery demonstrates 0-10% stenosis. Echocardiogram is pending. An MRI of the head showed multiple embolic type foci of restricted diffusion, bilateral occipital lobe, bilateral frontal and bilateral parietal lobes, most consistent with acute infarct. Follow-up MRI was suggested. ASSESSMENT AND PLAN: I have taken the liberty of ordering some blood tests regarding this multiple thrombi and will make the recommendation accordingly. I thank you, Dr. Grady, for letting me participate in the care of this interesting patient. If you have any questions, please feel free to contact me. DT: 17:11:43 TT: 18:10:00 Ref: [id number] - TID: [id number] MTDD
--- NOTE | 2025-04-07 08:43 | ESPR_ITS ---
Documentation for date of: 04/07/25 Subjective Subjective Interval history: Reason for consult: KINJAL, oligoanuria-needing CRRT History of present illness: (patient was intubated during this consumer loan underwriter's visit so the following narrative was constructed primarily via chart checking) Vashti Ross is a 59-year-old F with a PMH of diabetes, hypertension, asthma, substance use disorder (including opiates, probable methamphetamine, and marijuana) on methadone previously, and a chronic right leg wound brought in by ambulance from her home for altered mental status. Per ED rendition of EMS report, patient was noted to be altered with a respiratory rate of [address] [facility]. A total of 8 mg of Narcan was administered at this time which initially improved mentation. Upon arrival, patient was noted to be somnolent and given an additional 0.4 mg of IV Narcan which made her more active but also more combative. She was also noted to be hypoxic and in respiratory distress upon arrival which led her to be put on BiPAP. During her agitated episode, patient endorsed that she hurt all over and loudly yelled that I gotta get out of here . She was eventually given 2 mg of IV Versed and put on restraints due to her continued agitation. Later, she was taken for an MRI which required removal of her BiPAP but upon removal a subsequent drop in O2 saturation to the low 90s was noted. It was deemed that her airway was not secure and the decision was made to intubate the patient. After the MRI was performed, patient was eventually admitted to the ICU. From family collateral, it was learned that patient's last known well time was 22:30 on 03/26. Patient had been found on the floor by her at 05:00 on 03/27 whereupon he tried to rouse her from her stupor, failed, called patient's sister to notify her about patient's condition, and finally left her to go to work. Patient's sister arrived around 09:00 and found patient still lying on the bathroom whereupon this consumer loan underwriter assumes she called for an ambulance to bring the patient to the ED. In the ED, vitals showed: BP 107/78 HR 94 RR 35 Temp 101.3 SpO2 98% on 15 L BiPAP ED Course: CBC showed high WBC 13.1 w/ neutrophilic predominance but was otherwise WNL. Coagulation panel showed high PT 13.3. ABG showed acidic pH 7.27, normal pCO2 40, high pO2 146, low HCO3 18. CMP showed low carbon dioxide 18.1, high anion gap 19, high creatinine 2.8, low eGFR 19, very high blood glucose 550, very high lactic acid 4.7, high bilirubin 1.6, high AST 146, high ALT 61, high total creatine kinase 9752, very high troponin I 0.427, high BNP 297, and high procalcitonin 43.23. UA showed 2+ protein, 3+ glucose, 1+ ketones, 3+ blood, high RBC 10, high WBC 112, 3+ calcium oxalate crystals, 4+ bacteria, normal random sodium 34.2, normal random potassium 26, and low random chloride 23.2. UDS was (+) for amphetamines/methamphetamines and marijuana. Serological studies were reactive for hepatitis C antibody. Imaging: Head CT showed findings most consistent with acute right frontal lobe infarcts. Brain MRI showed multiple embolic-type foci of restricted diffusion in the b ilateral occipital lobes, bilateral frontal lobes, and bilateral parietal lobes most consistent with acute infarcts. CXR showed bibasilar pneumonia and findings suspicious for mild associated heart failure. Renal US showed small kidneys with right renal cortical thinning as well as mild right and moderate left renal parenchymal scar formation. Carotid doppler study showed 20-40% stenosis of the right internal carotid artery and 0-10% stenosis of the left internal carotid artery. EKG was unremarkable. In the ED, patient was given Duoneb Precedex, doxycycline, etomidate, Lasix, regular insulin, ketamine, Versed, naloxone, 1 L LR bolus, Zemuron, and 1 L NS bolus. Patient was intubated due to low GCS and was admitted to the ICU. Nephrology was consulted due to patient's need for urgent hemodialysis. Neurology is also following. Interval History 03/28/2025: No overnight events. Patient seen and examined at bedside; they remained intubated and unable to describe their current experience. Notable labs today include: WBC bump to 15.7 from 15.0, creatinine drop to 1.6 from 2.4, blood glucose 170, AST drop to 148 from 179, ALT dropped to 104 from 114, total CK drop to 3666 from 5964, and troponin I drop to 8.789 from 14.934. Urine culture was positive for E. coli and 1 of 2 blood cultures was positive for GPC's (current speciation still pending). She remains without urinary output and has required CRRT. Her echocardiogram came back today showing decreased ejection fraction of 40 to 45% along with vegetations of the tricuspid valve (suggestive of endocarditis). From nephrology's standpoint, patient will be receiving hemodialysis today. 03/29/2025: Patient seen and examined in the ICU. Intubated and unable to follow commands. On exam, she opens eyes spontaneously, extremities are cold and edematous. she remains on pressors,BP 90s/50s wbc 16.8, Cr 1.8 from 1.3.Extensive chronic nonocclusive DVT involving the common femoral left superficial femoral, popliteal, peroneal, posterior tibial and greater saphenous veins HD today 03/30/2025: Patient seen and examined in the ICU, yesterday she was noted to be following commands in the afternoon, today however she is on several sedative medications. She remains on pressors, BP 110s to 120s/60s, WBC 11 from 16. LFT downtrending. BUN 25 from 18, Cr 2.4 from 1.8. On exam her LLE has dark fourth toe and big toe suspect embolic etiology, pending IVC filter per primary team. 03/31/2025: Patient seen and examined in the ICU, pt is noted to be able to follow simple comands, she remains intubated. SBP 130s-160s. WBC 16 from 11, BUN 32 from 25, Cr 3.1 from 2.4. IVC filter placement scheduled for today. SYLVIE yesterday had showed atrial septal aneurysm, likely source of embolic strokes in the setting of DVT. Currently holding off on anticoagulation due to concern for hemorrhagic conversion of infarct per CARDS, Dr Fernandez recommended transfer to [facility] for closure of shunt. Plan for HD today. 04/01/2025: Patient seen and examined in the ICU. pt is extubated, oxymask in place. alert and oriented, answering questions appropriately and following commands. SBP 150s, WBC 17 from 16, CO 19, BUN 34, Cr 3.6, eGFR 14, Lactic acid 1.1, UOP 650 very clear urine. had 1x bumex yesterday, d/c transfer order for PFO repair, pt states that she has had 2 miscarrages in the past, query antiphospholipid syndrome. CTA chest/ AP Large splenic infarct with thrombus in upper lobe splenic arteries. Plan to hold HD. 04/02/2025: Patient seen and examined in the ICU. pt remains extubated, on NC. alert and oriented x3, SBP 130s -150s WBC 16, K 3.5, BUN 52 from 34, Cr 4.9 from 3.6, eGFR 10, phos 6.6. pending hypercoag labs. UOP 1700cc (urine protein creatnine ratio: 3.4) hold off on renal biopsy today, Plan to HOLD HD. Plan to give IV bumex and albumin. 04/03/2025: Patient seen and examined, was downgraded from the ICU. She is alert and oriented x3, appears uncomfortable on exam, reports abdominal pain, Afebrile, normotensive, wbc 16 K 3.6, BUN 59 Cr 5.5 from 4.9, on exam she has diffuse tenderness to palpation, pain out of proportion to exam, no rebound, no guarding. grimaces with light palpation, CTA AP 03/31 with Large splenic infarct with thrombus in upper lobe splenic arteries and PEs noted again, query wheter pt has mesinnteic ischemia vs ischemic colitis. Plan for HD today 04/04/2025: Patient seen and examined at bedside. She is A&Ox3, she appears more comfortable on exam, abdominal pain is resolved, CTA abdomen was negative for acute intrabdominal findings to expain abdominal pain. Plan for HD today given she had contrast yesterday, Cr 4.4 from 4.0, BUN 41 from 59. 04/05/2025: Patient was seen and examined at bedside this AM. No acute events overnight. Patient tolerating diet, adequate urine output and mentation is at baseline. Patient endorses improvement of abdominal pain. Patient underwent hemodialysis on 04/03/2025, RFT shows creatinine 3.7 and GFR 14 at this time. Will evaluate for next hemodialysis session tomorrow. Medical management to continue as per primary team. Renal function trending appropriately at this time. Avoid nephrotoxic agents, avoid excessive fluids and renally dose medications. 04/06/2025: patient seen and examined in HD, she was noted to be mildly agitated overnight (given quetiapine 25 overnight). She has no acute complaints, on exam she appears somnolent, per medications documented she did not have any pain meds given recently during time of interview and exam. SBP 150s Pos elevated to 5.5, BUN 43, Cr 4.0 from 3.7. 04/07/2025: Patient seen and examined at bedside, she was noted to be agitated and uncomfortable on exam reporting vague abdominal pain and pointing to her left medial thigh. On exam abdomen is soft nontender nondistended no rebound or guarding noted on exam of her patient appears to be in moderate distress secondary to pain. BUN 24 from 43 creatinine 3.0 from 4.0. Kidney function is improving. Etiology of abdominal pain versus left lower extremity pain is unknown she has several clots, management per primary team. Urine output is not documented as patient is wearing briefs however briefs noted to be wet on exam previously making good urine. Pedal pulses are bounding bilaterally. repeat head CT with Low-density acute infarctions now evident in the left frontoparietal left posterior parietal lobes not seen on the April 02, 2025 exam Exam Vital Signs Temp Pulse Resp BP Pulse Ox O2 Del Method O2 Flow Rate 97.6 F 82 19 127/65 99 Room Air 4 04/07/25 00:00 04/07/25 06:24 04/07/25 06:24 04/07/25 05:42 04/07/25 06:24 04/07/25 00:00 04/06/25 12:00 FiO2 40 04/05/25 04:00 Narrative Exam General:awake and alert, in moderate distress, reporting abdominal pain. oriented x2, > uncomfortable HEENT: Normocephalic, atraumatic, mucous membranes dry, Heart: Regular rate and rhythm, + murmurs. Lungs: Clear to auscultation . Abdomen: Soft, nondistended, non tender, positive bowel sounds. ?No guarding or rebound tenderness. c/o vague abdominal pain, nonfocal, nonreproducable on exam Neurologic: alert and orientedx2 Extremities: Noted chronic wound of 5 x 6 cm in the right lower extremity bandaged with kerlix. Noted tissue pressure injuries on the upper lateral right and left thigh. Also noted infected area in the right toe. Peripheral pulses are 2+ There is demarcated ischemia of left foot of 1st and 5th digit. L knee surgical scar. Objective Labs 04/07/25 04:43 04/07/25 04:43 Labs: Laboratory Results - last 24 hr 04/02/25 04/07/25 04:25 04:43 WBC 13.3 H RBC 3.69 L Hgb 10.7 L Hct 33.4 L MCV 91 MCH 29.0 MCHC 32.0 RDW Std Deviation 50.4 H Plt Count 505 H Neut % (Auto) 69 Lymph % (Auto) 14 [place] % (Auto) 9 Eos % (Auto) 1 Baso % (Auto) 1 Neut # (Auto) 9.1 H Lymph # (Auto) 1.9 [place] # (Auto) 1.2 H Eos # (Auto) 0.2 Baso # (Auto) 0.1 Immature Gran # (Auto) 0.77 H Absolute Nucleated RBC 0.00 Immature Gran % 6 H Nucleated RBC % 0 Protein C Antigen 90 Protein C Activity 148 Protein S Activity 69 Total Protein S Ag 104 Antithrombin III Ag 93 Antithrombin III Activ 85 Sodium 138 Potassium 4.1 Chloride 100 Carbon Dioxide 24.8 Anion Gap 13 BUN 24 H Creatinine 3.0 H D Estim Creat Clear Calc 20.7 L eGFR 17 L BUN/Creatinine Ratio 8 L Glucose 120 H Calculated Osmolality 280 Calcium 9.4 Corrected Calcium 9.6 Phosphorus 4.6 Magnesium 2.3 Total Bilirubin 0.5 AST 25 ALT 29 Alkaline Phosphatase 72 Total Protein 6.6 Albumin 3.7 Globulin 2.9 Albumin/Globulin Ratio 1.3 Random Vancomycin 21.7 ABG Interpretation ABG results: 03/26/25 03/26/25 03/26/25 11:18 11:44 16:23 ABG pH 7.27 L Cancelled ABG pCO2 40 Cancelled ABG pO2 146 H Cancelled ABG HCO3 18 L Cancelled ABG O2 Saturation 100 H Cancelled ABG Base Excess -8 L Cancelled VBG pH 7.19 L VBG pCO2 48 VBG pO2 37 VBG Base Excess -10 L 03/26/25 03/27/25 03/27/25 18:43 00:17 03:42 ABG pH 7.16 L* D 7.24 L Cancelled ABG pCO2 58 H D 44 D Cancelled ABG pO2 68 L D 80 L Cancelled ABG HCO3 21 19 L Cancelled ABG O2 Saturation 90 L 96 Cancelled ABG Base Excess -9 L -8 L Cancelled VBG pH VBG pCO2 VBG pO2 VBG Base Excess 03/27/25 03/27/25 03/27/25 04:04 07:55 18:48 ABG pH 7.26 L 7.30 L ABG pCO2 43 37 ABG pO2 83 174 H D ABG HCO3 19 L 18 L ABG O2 Saturation 97 101 H ABG Base Excess -7 L -8 L VBG pH 7.21 L 7.31 L VBG pCO2 49 48 VBG pO2 54 52 VBG Base Excess -8 L -2 03/27/25 03/28/25 03/28/25 19:07 04:06 13:37 ABG pH 7.36 7.38 7.41 ABG pCO2 41 45 44 ABG pO2 79 L D 73 L 105 D ABG HCO3 23 27 H 27 H ABG O2 Saturation 97 96 99 H ABG Base Excess -2 1 2 VBG pH VBG pCO2 VBG pO2 VBG Base Excess 03/29/25 03/30/25 03/31/25 04:45 04:50 04:40 ABG pH 7.38 7.42 7.39 ABG pCO2 45 40 41 ABG pO2 72 L D 66 L 63 L ABG HCO3 27 H 26 25 ABG O2 Saturation 98 93 92 ABG Base Excess 1 2 0 VBG pH VBG pCO2 VBG pO2 VBG Base Excess 03/31/25 17:30 ABG pH 7.39 ABG pCO2 36 ABG pO2 80 L ABG HCO3 21 ABG O2 Saturation 96 ABG Base Excess -3 VBG pH VBG pCO2 VBG pO2 VBG Base Excess Quality Measures Quality Measures VTE prophylaxis Assessment & Plan Assessment Current Active Medications: Generic Name Dose Route Start Last Admin Trade Name Freq PRN Reason Stop Dose Admin Acetaminophen 650 mg 04/01/25 09:12 04/03/25 08:21 Acetaminophen 325 Mg Tablet PO 04/25/25 18:57 650 mg Q4HR PRN Administration Pain Scale 1-3 OR fever >100.4 Albuterol/Ipratropium 3 ml 03/27/25 01:00 04/07/25 06:23 Albuterol/Ipratropium (Duoneb) Rt Jennifer 3 Ml Nebu INH 04/26/25 00:59 3 ml Q6HRRT CRIS Administration Amlodipine Besylate 10 mg 04/02/25 09:00 04/06/25 12:57 Amlodipine Besylate 5 Mg Tablet PO 05/02/25 08:59 10 mg QDAY CRIS Administration Ascorbic Acid 250 mg 04/03/25 12:00 04/06/25 22:22 Ascorbic Acid 250 Mg Tablet PO 05/03/25 11:59 250 mg BID CRIS Administration Aspirin 81 mg 04/01/25 09:30 04/06/25 12:59 Aspirin Ec 81 Mg Tabec PO 05/01/25 09:29 81 mg QDAY CRIS Administration Atorvastatin Calcium 80 mg 03/26/25 21:00 04/06/25 22:21 Atorvastatin Calcium 20 Mg Tablet PO 04/25/25 20:59 80 mg HS CRIS Administration Carvedilol 6.25 mg 04/01/25 17:30 04/06/25 21:50 Carvedilol 3.125 Mg Tablet PO 05/01/25 17:29 Not Given BIDWM CRIS Dextrose 25 ml 03/26/25 20:20 Dextrose 50%-Water Inj 50 Ml Syringe IV 04/25/25 20:19 Q15MIN PRN BG 50-70 responsive npo pt Dextrose 50 ml 03/26/25 20:20 Dextrose 50%-Water Inj 50 Ml Syringe IV 04/25/25 20:19 Q15MIN PRN BG <50 OR BG <70 & pt unresponsive Gabapentin 100 mg 04/06/25 22:00 04/07/25 05:45 Gabapentin 100 Mg Capsule PO 05/06/25 21:59 100 mg TID CRIS Administration Glucagon 1 mg 03/26/25 20:20 Glucagon Inj 1 Mg Vial IM Q15MIN PRN BG <70, and no IV access Heparin Sodium (Porcine) 5,000 unit 03/27/25 14:00 04/07/25 05:42 Heparin Sod Inj 5000 Unit/Ml Vial SC 04/10/25 13:59 Not Given Q8HR CRIS Heparin Sodium (Porcine) 2,600 unit 03/28/25 19:33 04/06/25 13:13 Heparin Sod Inj 1000 Unit/Ml Vial 10 Ml INDWELLCAT 04/11/25 19:32 2,600 unit X1 PRN Administration DIALYSIS Hydralazine HCl 25 mg 04/01/25 14:00 04/07/25 05:42 Hydralazine Hcl 25 Mg Tablet PO 05/01/25 13:59 Not Given TID CRIS Hydromorphone HCl 1 mg 04/03/25 15:33 04/07/25 07:49 Hydromorphone Inj 2 Mg/Ml Vial IVP 04/08/25 15:32 1 mg Q4HR PRN Administration PAIN SCALE 4-10(Mod-Sev Cefepime HCl 2 gm/ Sodium 50 mls @ 100 mls/hr 04/04/25 12:45 04/06/25 22:20 Chloride IV 04/11/25 12:44 100 mls/hr QDAY@1800 CRIS Administration Insulin Degludec 24 unit 04/01/25 21:00 04/06/25 22:54 Insulin Degludec 5 Unit/0.05 Ml (Per 5 Units) SC 05/01/25 20:59 24 unit HS CRIS Administration Insulin Human Lispro 0 unit 04/04/25 21:00 04/06/25 21:49 Insulin Lispro (Admelog) 1 Unit/0.01 Ml Unit SC 05/04/25 20:59 Not Given ACHS [facility] Protocol Labetalol HCl 10 mg 04/01/25 11:16 Labetalol Inj 5 Mg/Ml Vial 20 Ml IVP 05/01/25 11:29 Q4HR PRN if SBP>140 Nicotine 21 mg 04/05/25 10:45 04/06/25 12:57 Nicotine Patch 21 Mg/24 Hr Patch.Td24 TOP 05/05/25 10:44 21 mg QDAY [facility] Administration Pharmacy Consult 1 each 04/04/25 12:30 Vancomycin Pharmacy To Dose 1 Each Each IV 05/04/25 12:29 QDAY PRN PROTOCOL Sevelamer Carbonate 800 mg 04/05/25 08:00 04/06/25 21:51 Sevelamer Carbonate 800 Mg Tablet PO 05/05/25 07:59 Not Given TIDWM [facility] Vitamin B Complex/Vit C/Folic Acid 1 tab 04/03/25 12:00 04/06/25 15:26 Vit B12/Vit C/Fa (Nephrovite) Tablet PO 05/03/25 11:59 Not Given QDAY CRIS Zinc Sulfate 220 mg 04/03/25 12:00 04/06/25 12:57 Zinc Sulfate 220 Mg Capsule PO 04/17/25 11:59 220 mg QDAY CRIS Administration Plan Vashti Ross is a 59-year-old F with a PMH of diabetes, hypertension, asthma, substance use disorder (including opiates, probable methamphetamine, and marijuana) on methadone previously, and a chronic right leg wound brought in by ambulance from her home for altered mental status. Patient was intubated due to low GCS and was admitted to the ICU. echo with tricuspid vegitations and EF 40- 45%, pt with extensive PE and extensive non occlusive DVT of LLE, SYLVIE revealed atrial septal aneurysm, likely source of embolic strokes in the setting of DVT. per cards, holding off on anticoagulation due to concern for hemorrhagic conversion of infarct. s/p IVC filter, found to have borderline nephrotic range proteinuria, CTA AP without new intrabdominal findings, again patient has vague abdominal pain. repeat ct head with new infarcts of the L frontoparietal and L posterior parietal lobes.no HD today. KINJAL on CKD Stage IV - improving Nephrotic range proteinuria Secondary to Ischemic ATN Rhabdomyolysis DDx: multifactorial etiologies including intravascular depletion, diabetic nephropathy, blood pressure derangements, glomerular diseases, sepsis-induced ATN, rhabdomyolysis, cardiorenal syndrome, crystalline nephropathy associated with oxalate, or atheroembolic disease - Admission creatinine 2.8 (baseline: unknown), eGFR 19 - Possible kidney damage from elevated blood glucose 550 on admission, in addition to CK 9752 and U tox positive for amphetamines/methamphetamines - HD: 03/28 CRRT, HD 03/29, 03/30, 03/31, 04/03, 04/04, 04/06 - RFT: (04/04) BUN 41, CR 4.4 and GFR 11 --> (04/05) BUN 37, Cr 2.7 and GFR 14--> 04/06 BUN 43, Cr 4.0--> 04/07 BUN 24, Cr 3.0 Plan: - no HD today - Nephrology consulted for worsening CKD while inpatient - Avoid nephrotoxic agents, avoid excessive fluids and renally dose medications. - Hold any KRISSY/ARB/diuretics as KINJAL causing worsening of CKD Other medical problems: CVA- Subarachnoid hemorrhage and multiple acute infarcts In the setting of History of PE Extensive nonocclusive DVT LLE Secondary to Hypercoagulable state Antiphospholipid syndrome, pending rule out - Patient has a hx of miscarriages. Never got coagulation workup - CTA Positive for multiple right lower lobe pulmonary artery and left upper lobe pulmonary artery emboli - Of note, multiple thrombi, lung, spleen, LE, - CThead 04/07 with Low-density acute infarctions now evident in the left frontoparietal left posterior parietal lobes not seen on the April 02, 2025 exam Plan: - Primary team consulted Dr Krishna for hematology workup - s/p IVC filter in place HF mrEF 40 -45% History of Endocarditis Atrial aneurysm NSTEMI, likely type 2 demand ischemia - echo with EF 40 -45% - TTE with tricuspid vegitations - SYLVIE with Atrial septal aneurysm present and bubble study positive for PFO especially with increased right atrial pressure Splenic infarct with thrombus in upper lobe splenic arteries Acute mesenteric ischemia vs ischemic colitis - 04/03 pt has diffuse abdominal pain out of proportion to exam. - 04/07 pt reports nonfocal abdominal pain, no rebound no guarding. T2DM Leukocytosis and AHRF 2/2 PNA - improved Septic shock- resolved, off pressors, Left toes gangreen vs Atheroembolism of left lower extremity toes agitation - managment per primary team Plan discussed with nephrology attending Dr. Nathalie Vallejo MD Internal Medicine PGY-1 Attending Provider Attestation/Addendum Patient seen and examined with resident physician Dr. Bashir. note reviewed, agree with findings and recommendations. Patient received 2 days of CRRT, 4 conventional dialysis.. at bedside. 04/07/2025 moved out of ICU. Patient has hypercoagulable // thrombotic disorder. Patient has both arterial infarcts, venous thrombosis cannot give heparin due to subarachnoid hemorrhage. CT brain showed questionable subarachnoid hemorrhage. CT angiography did not show any mesenteric occlusion. Did receive 100 mL Isovue contrast. Postcontrast did receive dialysis. Today she seems to be very restless and complaining of abdominal pain. Plan for DC on permacath and dialysis today were made Outpatient dialysis arrangements will be made Spoke to primary team
--- NOTE | 2025-04-07 11:28 | XR_ITS ---
Examination: CT brain head without contrast. 2-D sagittal coronal reconstructions Date and time of exam:April 07, 2025, 1040 hours, comparison April 02, 2025 INDICATIONS: CT brain scan March 30, 2025 dizziness confusion, brain MRI March 26, 2025 multiple acute infarcts, CT brain scan April 02, 2025 areas of subarachnoid hemorrhage bilaterally CTDI: vol (mGy):52.1 DLP: (mGycm):1066 Technique: Multiple CT axial sections of the brain have been obtained, 5 mm slice thickness. Contrast has not been administered. 2-D sagittal, coronal reconstructions have been obtained Low dose protocols were performed. One or more of the following dose reduction techniques were used; automated exposure control, adjustment of the mA and/or KV according to patient size, use of iterative reconstruction technique. Findings: No significant ventricular enlargement. Slightly less prominent subtle subarachnoid hemorrhage in the frontoparietal convexities compared to the April 02, 2025 exam There are subtle areas of low density consistent with acute infarctions in the left frontoparietal and left posterior parietal lobes not seen on the April 02, 2025 exam No new areas of hemorrhage No mass effect IMPRESSION: Slightly less prominent subtle subarachnoid hemorrhage in the frontoparietal convexities compared to April 02, 2025 Low-density acute infarctions now evident in the left frontoparietal left posterior parietal lobes not seen on the April 02, 2025 exam No mass effect
--- NOTE | 2025-04-07 11:29 | PC.SS ---
SS follow up note; Patient will get a dialysis cath today, possible discharge home within 2-3 days. Insurance verification pending for chair time.
[2025-04-07] MEDS: NICOTINE PATCH 21 MG/24 HR PATCH.TD24 TOP (11:30)
[2025-04-07 11:57] LABS: Cocci Serology, IgM Negative (Negative)
[2025-04-07 13:18] LABS: INR 1.1 (0.9-1.3); Partial Thromboplastin Time 29.6 Seconds (22.0-36.0); Prothrombin Time 12.2 Seconds (9.0-12.2)
--- NOTE | 2025-04-07 13:34 | PC.NURSE ---
patient scheduled for dialysis catheter insertion, Dr ayala notified of aspirin and heparin last dose yesterday 04/06/2025, ok to proceed with procedure.
[2025-04-07] MEDS: MIDAZOLAM INJ 1 MG/ML VIAL 2 ML IVP (14:53)
[2025-04-07] MEDS: LIDOCAINE INJ PF 1% 30 ML VIAL 5 ML EPID (15:00)
[2025-04-07] MEDS: HEPARIN SOD LOCK SYR 100 UNIT/ML 500 UNIT STFIELD (15:00)
[2025-04-07] MEDS: ceFAZolin/D5W 1 GM IVPB 1 GM/50 ML BAG IV (15:00)
[2025-04-07] MEDS: fentaNYL CIT INJ 50 mCg/ML AMP 2ML IVP (15:03)
--- NOTE | 2025-04-07 15:53 | PC.NURSE ---
patient consent was obtained for tunneled hemodialysis catheter from at bedside, patient was then taken to IR to start procedure, (see MAR for medications given) patient was yelling, moving and not staying still, we attempted with multiple times in telling patient to stay still, patient was not compliant, Dr said he can not do this due to patient not listening and not being able to stay still, Dr recommended to do this procedure in OR under anesthesia
[2025-04-07] MEDS: SEVELAMER CARBONATE 800 MG TABLET PO (17:16)
[2025-04-07] MEDS: CEFEPIME INJ 2 GM in SODIUM CHLORIDE 0.9% (Popper) 50 ML IV (17:26)
[2025-04-07] MEDS: INSULIN LISPRO (AdmeLOG) 1 UNIT/0.01 ML UNIT SC (18:00)
[2025-04-07] MEDS: ASCORBIC ACID 250 MG TABLET PO (20:23)
[2025-04-07] MEDS: ATORVASTATIN CALCIUM 20 MG TABLET 80 MG PO (20:23)
--- NOTE | 2025-04-07 23:32 | PD.VPROG1 ---
Telemedicine visit statement This visit was conducted with the use of phone was obtained on 04/07/25. Documentation for date of: 04/07/25 Subjective Subjective Interval history: Patient is in telemetry, no new symptoms reported. Virtual exam Vital Signs Temp Pulse Resp BP Pulse Ox O2 Del Method O2 Flow Rate 97.5 F 90 19 118/64 92 L Nasal Cannula 2 04/07/25 20:00 04/07/25 21:16 04/07/25 20:00 04/07/25 21:16 04/07/25 20:00 04/07/25 20:00 04/07/25 20:00 FiO2 40 04/05/25 04:00 Objective Labs 04/09/25 05:10 04/09/25 05:10 Labs: Laboratory Results - last 24 hr 04/02/25 04/07/25 04/07/25 04:25 04:43 08:17 WBC 13.3 H RBC 3.69 L Hgb 10.7 L Hct 33.4 L MCV 91 MCH 29.0 MCHC 32.0 RDW Std Deviation 50.4 H Plt Count 505 H Neut % (Auto) 69 Lymph % (Auto) 14 [place] % (Auto) 9 Eos % (Auto) 1 Baso % (Auto) 1 Neut # (Auto) 9.1 H Lymph # (Auto) 1.9 [place] # (Auto) 1.2 H Eos # (Auto) 0.2 Baso # (Auto) 0.1 Immature Gran # (Auto) 0.77 H Absolute Nucleated RBC 0.00 Immature Gran % 6 H Nucleated RBC % 0 PT 12.2 INR 1.1 APTT 29.6 Protein C Antigen 90 Protein C Activity 148 Protein S Activity 69 Total Protein S Ag 104 Antithrombin III Ag 93 Antithrombin III Activ 85 Sodium 138 Potassium 4.1 Chloride 100 Carbon Dioxide 24.8 Anion Gap 13 BUN 24 H Creatinine 3.0 H D Estim Creat Clear Calc 20.7 L eGFR 17 L BUN/Creatinine Ratio 8 L Glucose 120 H Calculated Osmolality 280 Calcium 9.4 Corrected Calcium 9.6 Phosphorus 4.6 Magnesium 2.3 Total Bilirubin 0.5 AST 25 ALT 29 Alkaline Phosphatase 72 Total Protein 6.6 Albumin 3.7 Globulin 2.9 Albumin/Globulin Ratio 1.3 Random Vancomycin 21.7 Coccidioides IgM Ab Negative ABG Interpretation ABG results: 03/26/25 03/26/2503/26/25 11:18 11:44 16:23 ABG pH 7.27 L Cancelled ABG pCO2 40 Cancelled ABG pO2 146 H Cancelled ABG HCO3 18 L Cancelled ABG O2 Saturation 100 H Cancelled ABG Base Excess -8 L Cancelled VBG pH 7.19 L VBG pCO2 48 VBG pO2 37 VBG Base Excess -10 L 03/26/25 03/27/25 03/27/25 18:43 00:17 03:42 ABG pH 7.16 L* D 7.24 L Cancelled ABG pCO2 58 H D 44 D Cancelled ABG pO2 68 L D 80 L Cancelled ABG HCO3 21 19 L Cancelled ABG O2 Saturation 90 L 96 Cancelled ABG Base Excess -9 L -8 L Cancelled VBG pH VBG pCO2 VBG pO2 VBG Base Excess 03/27/25 03/27/25 03/27/25 04:04 07:55 18:48 ABG pH 7.26 L 7.30 L ABG pCO2 43 37 ABG pO2 83 174 H D ABG HCO3 19 L 18 L ABG O2 Saturation 97 101 H ABG Base Excess -7 L -8 L VBG pH 7.21 L 7.31 L VBG pCO2 49 48 VBG pO2 54 52 VBG Base Excess -8 L -2 03/27/25 03/28/25 03/28/25 19:07 04:06 13:37 ABG pH 7.36 7.38 7.41 ABG pCO2 41 45 44 ABG pO2 79 L D 73 L 105 D ABG HCO3 23 27 H 27 H ABG O2 Saturation 97 96 99 H ABG Base Excess -2 1 2 VBG pH VBG pCO2 VBG pO2 VBG Base Excess 03/29/25 03/30/25 03/31/25 04:45 04:50 04:40 ABG pH 7.38 7.42 7.39 ABG pCO2 45 40 41 ABG pO2 72 L D 66 L 63 L ABG HCO3 27 H 26 25 ABG O2 Saturation 98 93 92 ABG Base Excess 1 2 0 VBG pH VBG pCO2 VBG pO2 VBG Base Excess 03/31/25 17:30 ABG pH 7.39 ABG pCO2 36 ABG pO2 80 L ABG HCO3 21 ABG O2 Saturation 96 ABG Base Excess -3 VBG pH VBG pCO2 VBG pO2 VBG Base Excess Assessment & Plan Problem List (1) Ischemic cerebrovascular accident (CVA): Status: Acute Assessment and plan: With the recent CTs showing findings suspicious for subarachnoid and intracerebral hemorrhage Will do a repeat CT head to decide about starting anticoagulant therapy Follow-up with the hypercoagulopathy workup With the physical therapy and Occupational Therapy as she tolerates (2) Uncontrolled diabetes mellitus: Status: Chronic Assessment and plan: Continue to check fingerstick glucose and follow sliding scale insulin per protocol (3) Pulmonary embolism: Status: Chronic Assessment and plan: She got the IVC filter placement Anticoagulation is difficult to decide from concurrent intracerebral and subarachnoid hemorrhage on the CT head
[2025-04-08] VITALS (13 sets, daily range): BP systolic 111–141; BP diastolic 54–77; PULSE 73–104; RESP 17–96; TEMP 36.1–36.7; O2SAT 91–100; BMI 33.3; BMI 11.0
[2025-04-08] MEDS: ALBUTEROL/IPRATROPIUM (Duoneb) RT SOL 3 ML NEBU INH ×2 (01:47→07:17)
[2025-04-08] MEDS: HALOPERIDOL LACT INJ 5 MG/ML VIAL IM (04:54)
--- NOTE | 2025-04-08 07:50 | ESPR_ITS ---
<Statement entered by Hayley Dubois MD - 04/10/25 15:14> I reviewed above note and agree with findings and plans. I have also personally examined the patient with medicine team and went over assessment and plan with medical team including bakery pastry internship and resident physician. <Statement entered by Kentrell Hendricks MD - 04/08/25 13:05> Patient was examined and case was reviewed with team including attending physician. Note reviewed, I agree with most of its contents and agree with the patient's care as documented by Dr. Rand Patient seen and evaluated at the bedside. Overnight patient became agitated and required multiple medications to calm her down. Patient currently with no IV access as she ripped them out. Patient is pending tunneled dialysis catheter placement at this time. In regards to anticoagulation patient has subarachnoid bleed, pulmonary embolism and DVTs with PFO. Discussed with neurology who does not recommend anticoagulation at this time due to the head bleed. Risk and benefits explained to the patient and family members were present expressed understanding all questions were answered. Skin biopsy from pathology reports showing focal mucinosis, hypercoagulable and rheumatologic labs still pending but should result today 04/08/2025, per [facility]. Case discussed with my attending Dr. Sherly Hendricks MD PGY-2 Disclaimer: Despite multiple revisions, due to the dictation software being used, the document bellow may not be free of grammatical errors including phonetic/typographic errors. However, this does not deter from our commitment to providing health care in the patient's best interest in mind. Documentation for date of: 04/08/25 Subjective Subjective Interval history: 04/08/25: Overnight, patient was noted to be agitated and pulling out her IV access and vital sign monitors. Benadryl, ativan, and haldol were given with good response. Otherwise, vital signs remain stable. We had an extensive discussion with patient's at bedside again regarding risks and benefits of starting anticoagulations. We discussed that given current brain hemorrhage, neurology team is advising against starting any anticoagulation medication at this time. We also discussed the potential hospice care referral; however, patient's now declines hospice. Exam Vital Signs Temp Pulse Resp BP Pulse Ox O2 Del Method O2 Flow Rate 96.9 F 86 23 H 138/67 H 100 Nasal Cannula 2 04/08/25 04:00 04/08/25 07:17 04/08/25 07:17 04/08/25 05:02 04/08/25 07:17 04/08/25 04:00 04/07/25 20:00 FiO2 40 04/05/25 04:00 Narrative Exam General: Off sedation, appears comfortable. Poor hygiene. A/O x2. Agitated at times. HEENT: Normocephalic, atraumatic, mucous membranes moist. Heart: Regular rate and rhythm, no murmurs. Lungs: Clear to auscultation with no wheezing or crackles. Abdomen: Soft, mildly distended, mild discomfort to palpation throughout. No guarding or rebound tenderness. Neurologic: Bilateral pupils are equal and reacting to light. Able to move all extremities. Muscle strength 4/5 throughout. Extremities: Noted surgical scar on the left knee likely from TKR. Noted chronic wound of 5 x 6 cm in the right lower extremity. Noted tissue pressure injuries on the upper lateral right and left thigh. Also noted infected area in the right toe and left 1st and 5th toes. Skin: No rash or ecchymoses. Objective Labs 04/07/25 04:43 04/07/25 04:43 Labs: Laboratory Results - last 24 hr 04/07/25 04/07/25 04:43 08:17 PT 12.2 INR 1.1 APTT 29.6 Coccidioides IgM Ab Negative ABG Interpretation ABG results: 03/26/25 03/26/25 03/26/25 11:18 11:44 16:23 ABG pH 7.27 L Cancelled ABG pCO2 40 Cancelled ABG pO2 146 H Cancelled ABG HCO3 18 L Cancelled ABG O2 Saturation 100 H Cancelled ABG Base Excess -8 L Cancelled VBG pH 7.19 L VBG pCO2 48 VBG pO2 37 VBG Base Excess -10 L 03/26/25 03/27/25 03/27/25 18:43 00:17 03:42 ABG pH 7.16 L* D 7.24 L Cancelled ABG pCO2 58 H D 44 D Cancelled ABG pO2 68 L D 80 L Cancelled ABG HCO3 21 19 L Cancelled ABG O2 Saturation 90 L 96 Cancelled ABG Base Excess -9 L -8 L Cancelled VBG pH VBG pCO2 VBG pO2 VBG Base Excess 03/27/25 03/27/25 03/27/25 04:04 07:55 18:48 ABG pH 7.26 L 7.30 L ABG pCO2 43 37 ABG pO2 83 174 H D ABG HCO3 19 L 18 L ABG O2 Saturation 97 101 H ABG Base Excess -7 L -8 L VBG pH 7.21 L 7.31 L VBG pCO2 49 48 VBG pO2 54 52 VBG Base Excess -8 L -2 03/27/25 03/28/25 03/28/25 19:07 04:06 13:37 ABG pH 7.36 7.38 7.41 ABG pCO2 41 45 44 ABG pO2 79 L D 73 L 105 D ABG HCO3 23 27 H 27 H ABG O2 Saturation 97 96 99 H ABG Base Excess -2 1 2 VBG pH VBG pCO2 VBG pO2 VBG Base Excess 03/29/25 03/30/25 03/31/25 04:45 04:50 04:40 ABG pH 7.38 7.42 7.39 ABG pCO2 45 40 41 ABG pO2 72 L D 66 L 63 L ABG HCO3 27 H 26 25 ABG O2 Saturation 98 93 92 ABG Base Excess 1 2 0 VBG pH VBG pCO2 VBG pO2 VBG Base Excess 03/31/25 17:30 ABG pH 7.39 ABG pCO2 36 ABG pO2 80 L ABG HCO3 21 ABG O2 Saturation 96 ABG Base Excess -3 VBG pH VBG pCO2 VBG pO2 VBG Base Excess Quality Measures Quality Measures VTE prophylaxis Assessment & Plan Assessment Current Active Medications: Generic Name Dose Route Start Last Admin Trade Name Juan Manuel PRN Reason Stop Dose Admin Acetaminophen 650 mg 04/01/25 09:12 04/03/25 08:21 Acetaminophen 325 Mg Tablet PO 04/25/25 18:57 650 mg Q4HR PRN Administration Pain Scale 1-3 OR fever >100.4 Albuterol/Ipratropium 3 ml 03/27/25 01:00 04/08/25 07:17 Albuterol/Ipratropium (Duoneb) Rt Jennifer 3 Ml Nebu INH 04/26/25 00:59 3 ml Q6HRRT CRIS Administration Amlodipine Besylate 10 mg 04/02/25 09:00 04/07/25 09:30 Amlodipine Besylate 5 Mg Tablet PO 05/02/25 08:59 Not Given QDAY CRIS Ascorbic Acid 250 mg 04/03/25 12:00 04/07/25 20:23 Ascorbic Acid 250 Mg Tablet PO 05/03/25 11:59 250 mg BID CRIS Administration Aspirin 81 mg 04/01/25 09:30 04/07/25 09:30 Aspirin Ec 81 Mg Tabec PO 05/01/25 09:29 Not Given QDAY CRIS Atorvastatin Calcium 80 mg 03/26/25 21:00 04/07/25 20:23 Atorvastatin Calcium 20 Mg Tablet PO 04/25/25 20:59 80 mg HS CRIS Administration Carvedilol 6.25 mg 04/01/25 17:30 04/07/25 17:16 Carvedilol 3.125 Mg Tablet PO 05/01/25 17:29 6.25 mg BIDWM CRIS Administration Dextrose 25 ml 03/26/25 20:20 Dextrose 50%-Water Inj 50 Ml Syringe IV 04/25/25 20:19 Q15MIN PRN BG 50-70 responsive npo pt Dextrose 50 ml 03/26/25 20:20 Dextrose 50%-Water Inj 50 Ml Syringe IV 04/25/25 20:19 Q15MIN PRN BG <50 OR BG <70 & pt unresponsive Gabapentin 100 mg 04/06/25 22:00 04/08/25 04:59 Gabapentin 100 Mg Capsule PO 05/06/25 21:59 Not Given TID CRIS Glucagon 1 mg 03/26/25 20:20 Glucagon Inj 1 Mg Vial IM Q15MIN PRN BG <70, and no IV access Heparin Sodium (Porcine) 5,000 unit 03/27/25 14:00 04/08/25 04:59 Heparin Sod Inj 5000 Unit/Ml Vial SC 04/10/25 13:59 Not Given Q8HR CRIS Heparin Sodium (Porcine) 2,600 unit 03/28/25 19:33 04/06/25 13:13 Heparin Sod Inj 1000 Unit/Ml Vial 10 Ml INDWELLCAT 04/11/25 19:32 2,600 unit X1 PRN Administration DIALYSIS Hydralazine HCl 25 mg 04/01/25 14:00 04/08/25 05:02 Hydralazine Hcl 25 Mg Tablet PO 05/01/25 13:59 Not Given TID [facility] Hydromorphone HCl 1 mg 04/03/25 15:33 04/07/25 20:11 Hydromorphone Inj 2 Mg/Ml Vial IVP 04/08/25 15:32 1 mg Q4HR PRN Administration PAIN SCALE 4-10(Mod-Sev Cefepime HCl 2 gm/ Sodium 50 mls @ 100 mls/hr 04/04/25 12:45 04/07/25 17:26 Chloride IV 04/11/25 12:44 100 mls/hr QDAY@1800 [facility] Administration Insulin Degludec 24 unit 04/01/25 21:00 04/07/25 21:17 Insulin Degludec 5 Unit/0.05 Ml (Per 5 Units) SC 05/01/25 20:59 Not Given HS CRIS Insulin Human Lispro 0 unit 04/04/25 21:00 04/07/25 20:20 Insulin Lispro (Admelog) 1 Unit/0.01 Ml Unit SC 05/04/25 20:59 Not Given ACHS [facility] Protocol Labetalol HCl 10 mg 04/01/25 11:16 Labetalol Inj 5 Mg/Ml Vial 20 Ml IVP 05/01/25 11:29 Q4HR PRN if SBP>140 Nicotine 21 mg 04/05/25 10:45 04/07/25 11:30 Nicotine Patch 21 Mg/24 Hr Patch.Td24 TOP 05/05/25 10:44 21 mg QDAY [facility] Administration Pharmacy Consult 1 each 04/04/25 12:30 Vancomycin Pharmacy To Dose 1 Each Each IV 05/04/25 12:29 QDAY PRN PROTOCOL Sevelamer Carbonate 800 mg 04/05/25 08:00 04/07/25 17:16 Sevelamer Carbonate 800 Mg Tablet PO 05/05/25 07:59 800 mg TIDWM [facility] Administration Vitamin B Complex/Vit C/Folic Acid 1 tab 04/03/25 12:00 04/07/25 09:30 Vit B12/Vit C/Fa (Nephrovite) Tablet PO 05/03/25 11:59 Not Given QDAY CRIS Zinc Sulfate 220 mg 04/03/25 12:00 04/07/25 09:30 Zinc Sulfate 220 Mg Capsule PO 04/17/25 11:59 Not Given QDAY [facility] Plan 59F with PMH of DM, HTN, asthma, drug use disorder, and a chronic right leg wound was brought to the ED after being found unresponsive at home where she was found to have acute encephalopathy with low GCS requiring intubation and ICU admission for ventilator support, pressor support for likely septic shock, and CRRT. Patient found to have multi embolic disease involving multiple systems including brain and left distal extremity, acute and failure with the cause likely renal emboli. #Acute encephalopathy, multifactorial, related to metabolic derangement, substance use, and embolic CVA (Resolving) #Acute Multiple embolic type foci occipital lobes, bilateral frontal and bilateral parietal lobe #Atrial septal aneurysm #PFO #Subarachnoid hemorrhage #Endocarditis - r/o #Tricuspid valve vegetation - r/o -Patient came in with altered sensorium and head CT at the time showed multiple bilateral infarcts, likely embolic. Patient was weaned off sedation and extubated on 03/31/2025, tolerated well. Currently, patient is improving and is alert and oriented. Patient has extensive DVT in the left lower extremity also noted to have pulmonary embolism, patient might be having embolism through PFO and reaching the systemic circulation. -TTE showed normal size left ventricle with mild apical and global hypokinesis LVEF 40-45%. Evidence of Tricuspid valve vegetation suggestive of endocarditis. The RV is normal in size. The right ventricular systolic function is mildly decreased. Aortic valve sclerosis thickened wih mild aortic regurgitation. Mitral valve thickening with mild mitral regurgitation. -SYLVIE (03/30/25) confirmed no vegetations. Noted to have atrial aneurysm bulging into left atrium, bubble study done showed PFO -EEG from 04/02/25 shows diffuse slowing suggestive of a diffuse encephalopathy of vascular origin. -Per neurology team, given PE and small PFO, PE could be the cause of embolism vs endocardititis but less likely as negative SYLVIE for vegation. Although leukocytosis noted, less likely secondary to endocarditis in origin and more likely secondary to ischemia vs less likely increased coagulopathy as no previous history of DVTs. -Hematology Dr. Krishna was consulted who agreed with the current plan. -MR venogram negative for any thrombus -New blood cx negative -1/2 samples positive for lupus anticoagulant. Weakly positive for hexagonal phase confirm test. Positive EFFIE. Pending the rest of hypercoagulopathy tests. -Repeat brain CT (04/07/25) shows slightly less prominent subtle subarachinoid hemorrhage in the frontoparietal convexities compared to the previous scan. Also, low-density acute infarctions are now evident in the left frontoparietal, left posterior parietal lobbes that were not seen in the previous scan. Plan: - Discussed with patient and their family members regarding the current plan of starting anticoagulation medication if cleared by neurology team. Explained to patient and their family members regarding risks and benefits of starting anticoagulation. Explained to them that if we don't start anticoagulation her PE and DVT may have negative consequences (ie. worsening of her current condition) and she may be at risk for more thromboses and on the other hand, if we do start these medications she may be at risk for new brain hemorrhage, worsening of current hemorrhage or bleedings else where in her body. Patient and family understands the risks and benefits and agree with the plan of starting anticoagulation if prompted by the neurology team. At this moment, the neurology team is advising against starting anticoagulation medications given new CT findings. - Patient's declined hospice care - Will continue atorvastatin and Aspirin for now - Cannot start on heparin drip as patient noted to have subtle hemorrhage on repeat CT head done on 04/07/2025. Repeat CT head from 04/02 showed stable multiple areas of subarachnoid hemorrhage compared to 04/01 - IVC filter placement is done on 03/31/2025 to prevent further embolic strokes through PFO from DVT - No need of urgent PFO closure as per Dr. Nayak. - PT and speech therapy - Pending hypercoaugulable workup due to suspected Antiphospholipid syndrome due to DVT and other infarcts (Called [facility], results are estimated to be out by Sunday 04/08) #Septic shock #Hospital-Acquired PNA # UTI At the time of admission, patient was noted to have bilateral lower extremity edema and bilateral diffuse inspiratory crackles -possible heart failure in the setting of methamphetamine abuse, diabetes, hypertension. Also noted to have temperature of 101.8 ?F at the time of admission, likely due to some ongoing infection. Fits into 2/3 qsofa criteria. Noted to have GCS less than 15 and respiratory rate 35/min. Suspecting sepsis worsening the underlying heart failure resulting in suspected possible combined septic and cardiogenic shock. DDx: Combined cardiogenic and septic shock Patient was started on Levophed and weaned off completely on 03/30/2025 WBC on admission 13.1, procalcitonin 43.23. UA showed turbid urine with 2+ proteinuria, 3+ glucosuria, 112 WBC, 4+ bacteria suggestive of UTI. Urine culture positive for E.coli, blood cultures negative. TTE showed vegetations of the trisupid valve concerning for endocarditis. WBC now down trending to 13.3 from 21.6 3 days ago. Patient remains afebrile. Initially patient was started on vancomycin and Zosyn [03/27-03/30], discontinued Vanco and Zosyn, Started on Rocephin (03/30-04/04) Blood cx and sputum culture negative Plan: - Continue Vancomycin and cefepime 2g to cover for HAP (04/04/25-) - Will continue to monitor vitals # Acute hypoxic respiratory failure, resolving # Respiratory acidosis, resolved Per patient family, patient does not have any previous history of respiratory problems and is not using any inhalers. Not a smoker. ABG at the time of admission showed pH 7.16, pCO2 58, pO2 68, FiO2 100%. Repeat ABG done on 03/27/2024 showed pH 7.3, pCO2 37, bicarb 18. Repeat ABGs done after 03/28/2025 is within normal limits. CTA chest Positive for multiple right lower pulmonary artery filling defects. Positive for left upper lobe pulmonary artery filling defects. No emboli in the main pulmonary artery segments. Pneumonia versus infarction in both lower lung zones. CXR shows bibasilar pneumonia DDx: Sepsis, acute encephalopathy, pulmonary edema, pulmonary embolism, combined. Patient was intubated, sedated and placed on mechanical ventilator on 03/26 and extubated on 03/31. Though patient had pulmonary embolism, patient oxygen needs is coming down. CTA abd&pelvis on 04/04 still reveals pneumonia at the left base Plan: - Continue ABx as above - Will continue oxygen as needed for now. #KINJAL (Improving) #Acute renal failure likely 2/2 septic shock vs. renal emboli vs. rhabdomyolysis Patient does not follow-up any primary care doctor and unsure of her baseline kidney functions. Patient noted to have decreased urine output and oliguric since the time of admission. Creatinine at the time of admission is 2.8 --> 03/30, 2.4 --> 03/31, 3.1 --> 04/01, 4.9 --> 04/03, 5.5--> 04/07 3.0 DDx: Prerenal versus ATN in the setting of shock versus possible cardiorenal syndrome versus CKD in the setting of diabetes mellitus and hypertension versus embolic versus rhabdomyolysis Patient received HD yesterday; however, given persistant abnormal electrolyte, patient will have another HD today. Negative blood cx x2 Plan: - Patient did not tolerate perm cath placement yesterday. Recommended by radiology team to perform this under anesthesia; however, given current active medical problems we predict poor outcomes if patient undergoes anesthesia at this time. Discussed the case with the nephrology team, as they recommend permenant catheter placement for dialysis that patient will need for upon discharge. We will coordinate this with the IR team for possibility of placing perm catheter. - IV albumin prn - Held IV Bumex - Will continue to monitor urine output - Monitor renal panel - Avoid nephrotoxic agents (aminoglycosides, NSAIDs, radiographic contrast) - Adjust medication dosing based on patient's impaired renal function - Hold any KRISSY/ARB/diuretics - Sld Teacher, Dr. Zelaya is consulted and patient was started on CRRT through dialysis catheter placement in the right IJV on 03/27 - Received HD on 03/29, 03/30, 03/31, 04/03, 04/04 - Hold getting CT guided renal biopsy, to assess proteinuria - Started Sevelamer 800 mg TID with meals for hyperphosphatemia despite HD yesterday # HFrEF, EF 40 to 45% #Substance Use Disorder Unsure whether patient is regular methamphetamine user, as family members is not aware of the use. Patient also have severe uncontrolled diabetes mellitus, which could also contribute to the ischemic heart disease and CHF. Plan: - Patient should be started on GDMT but in the setting of ongoing acute kidney injury and recovering shock, will hold GDMT for now - Removed fluid through CRRT/HD #NSTEMI type type I (embolic NE) vs. Type 2 (demand ischemia 2/2 shock) In the setting of demand ischemia. Troponin at the time of admission is 0.427, peaked at 20.920 and later down trended. EKG did not show any ST-T wave changes Plan: - Will continue telemetry monitoring - Perinatal Breastfeeding Assistant, Dr. Nayak is consulted and will follow the recommendations # Pulmonary embolism # DVT Patient was noted to have mismatch between end-tidal CO2 and arterial CO2, also noted to have increased oxygen requirements on the ventilator for which CTA chest was ordered on 03/28/2025 CTA chest was positive for multiple right lower pulmonary artery filling defects. Positive for left upper lobe pulmonary artery filling defects. No emboli in the main pulmonary artery segments. Pneumonia versus infarction in both lower lung zones. Echocardiogram did not show any RV strain, though patient noted to have elevated troponin with peak level at 20.920, later down trended. EKG did not show any signs suggestive of pulmonary embolism. Venous doppler of LLE showed extensive chronic nonocclusive DVT involving the common femoral left superficial femoral, popliteal, peroneal, posterior tibial and greater saphenous veins. Tubular structures in the right popliteal fossa 6.0 cm in left popliteal fossa Plan: - Patient cannot be anticoagulated as of now as patient had hemorrhagic infarcts in the brain and is high risk for bleeding and is currently have subtle subarachinoid hemorrhage - IVC filter is by Dr. Murillo on 03/31/2025 - Patient is not a candidate of mechanical thrombectomy as of now and does not seem to be in right heart failure #Hypertension Patient noted to have history of hypertension but not using any medications before coming to the hospital BP initially elevated with SBP around 180-190. Now stablizied around 130s-140s. Plan - Continue amlodipine and carvedilol - Will continue to monitor blood pressures and titrate medications as needed #Agitation Patient was noted to be agitated during night times recently and pulling out her IV access lines and vital sign monitors. Plan: -Start Seroquel 25 PO qhs #Abdominal pain #Umbilical hernia with incarcerated fat #Gallbladder sludge #Prominent pancreatic head #Right hilum mass #Right lower lobe mass #Left adrenal gland mass #Uterine fundal mass #Focal mucinosis Patient reported diffuse abdominal pain today (04/03/25). On exam, diffuse TTP noted mainly in RUQ and LUQ with no peritinic signs. Her LUQ could be due to the renal infarct that has been noted on recent CT. Lactate: 1.1 SERVICE DELIVERY CONSULTANT was called while receiving HD. CTA abd&pelvis was ordered which showed gallbladder sludge and 22mm umbilical hernia with incarcerated fat and negative for any bowel ischemia. Patient was placed NPO and OG tube was inserted however later was pulled out by pt. General surgery Dr. Wood was consulted who recommended no surgical intervention at this time given current comorbidities and the fact that the hernia is most likely chronic. RUQ US was ordered due to concern for budd chiari which was negative for gallstones, however showed thickened gallbladder wall of 0.45cm and prominent pancreatic head of 3.5cm and moderate hepatomegaly. Below incidental findings were also noted in the CTA abd&pelvis: Mass contiguous with the right hilum 32 mm Mass in the right lower lobe 28 mm Nodular thickening left adrenal gland measuring 24 mm Atrophic anteverted uterus with calcified uterine fundal mass Pathology report on 04/06 for the biopsy of the left medial knee skin shows benign skin with changes suggesting focal mucinosis without signs of neoplasia Plan: - CTM - Advanced diet to full liquid. We will assess for patient''s tolerance and assess for bowel movement and passing flatulence. Will consult surgery again if indicated. - Patient will need to follow up with PCP upon discharge for the incidental findings listed above # Transaminitis, resolved # Hyperbilirubinemia, resolved #Hepatitis C At the time of admission patient was found to have bilirubin of 1.6, AST 146, ALT 61 ---> 03/31, AST 76, ALT 74 --> 04/03, AST 42 , ALT 65--> 04/07 AST 25, ALT 29 DDx: Fatty liver versus chronic liver disease versus viral hepatitis versus secondary to ongoing septic shock and possible suspected ischemia Tested positive for hepatitis C antibody. Liver ultrasound showed 10 mm gallstone, CBD enlarged 0.6 cm, liver 18.5 cm fatty infiltration Plan: - Will continue to monitor liver functions - Patient has to follow-up with public policy analyst on discharge on outpatient basis for follow-up on hepatitis C, currently does not suspect any active viral hepatitis # High anion gap metabolic acidosis # Lactic acidosis, resolved Likely in the setting of ongoing shock, likely due to sepsis. At the time of admission, anion gap is 19, lactate is 4.7 ---> 04/01, AG 22, Lactate 1.1 --> 04/03 AG 16, lactate 1.1 Anion gap improved on day of admission and lactic acidosis is slowly improving after starting CRRT. Plan: - Received CRRT on 03/27 and 03/28, HD on 03/29, 03/30, 03/31, 04/03, 04/04, 04/06 - Will continue to monitor lab values # Rhabdomyolysis, resolved Patient happened to be on the floor lying down for 4 to 5 hours and also tested positive for methamphetamine on urine toxicology CK at the time of presentation is 9752 and received 2 L of fluid in the ED, as patient is fluid overloaded cannot give more fluids CK levels continue to trend down slowly to 1187. Plan: -CTM # Uncontrolled type 2 diabetes mellitus Patient is not following any primary care provider and not taking medications properly per patient's family. Blood glucose at the time of admission is 550 for which patient was given 10 units of lispro in the ED. The patient had high anion gap metabolic acidosis, tested negative for beta- hydroxybutyrate and DKA is ruled out. A1C: 13.6 Patient achieving appropriate glucose control with current regimen Plan: - Degludec 24 U QHS + ISS step 3 - Will titrate degludec according to FBS # Chronic right leg wound Likely from uncontrolled diabetes mellitus and venous congestion. On physical examination, noted 5 x 6 cm wound with well-healing granulation tissue. Arterial Doppler was ordered which showed no PAD in bilateral lower extremities Plan - Wound care consulted - Continue Vitamin C 250mg BID - Continue Zinc sulfate 220mg Qday x14 days (04/03-) - Nephro-Vu # History of asthma Unclear if patient is using inhalers or if she has recent exacerbations. Currently does not appear to be in any exacerbations Plan: -CTM Health Maintenance: Diet: cons carb GI prophylaxis: Protonix DVT prophylaxis: Heparin subcut 5000 units every 8 hours Antibiotics: Cefepime 2 g IV, Vancomycin (pharm to dose) CODE STATUS: Full Disposition: HAP management Case discussed with attending Dr. Dubois and senior resident Dr. Adis Rand, DO PGY1
[2025-04-08] MEDS: VIT B12/Vit C/FA (Nephrovite) TABLET 1 TAB PO (09:59)
[2025-04-08] MEDS: ZINC SULFATE 220 MG CAPSULE PO (09:59)
[2025-04-08] MEDS: ASPIRIN EC 81 MG TABEC PO (09:59)
[2025-04-08] MEDS: SEVELAMER CARBONATE 800 MG TABLET PO (09:59)
[2025-04-08] MEDS: NICOTINE PATCH 21 MG/24 HR PATCH.TD24 TOP (10:00)
[2025-04-08] MEDS: ASCORBIC ACID 250 MG TABLET PO (10:00)
--- NOTE | 2025-04-08 10:19 | PD.NEPHPROG ---
Documentation for date of: 04/08/25 Subjective Subjective Interval history: Interval history: Reason for consult: KINJAL, oligoanuria-needing CRRT History of present illness: (patient was intubated during this repairer typewriter's visit so the following narrative was constructed primarily via chart checking) Vashti Ross is a 59-year-old F with a PMH of diabetes, hypertension, asthma, substance use disorder (including opiates, probable methamphetamine, and marijuana) on methadone previously, and a chronic right leg wound brought in by ambulance from her home for altered mental status. Per ED rendition of EMS report, patient was noted to be altered with a respiratory rate of [address] [facility]. A total of 8 mg of Narcan was administered at this time which initially improved mentation. Upon arrival, patient was noted to be somnolent and given an additional 0.4 mg of IV Narcan which made her more active but also more combative. She was also noted to be hypoxic and in respiratory distress upon arrival which led her to be put on BiPAP. During her agitated episode, patient endorsed that she hurt all over and loudly yelled that I gotta get out of here . She was eventually given 2 mg of IV Versed and put on restraints due to her continued agitation. Later, she was taken for an MRI which required removal of her BiPAP but upon removal a subsequent drop in O2 saturation to the low 90s was noted. It was deemed that her airway was not secure and the decision was made to intubate the patient. After the MRI was performed, patient was eventually admitted to the ICU. From family collateral, it was learned that patient's last known well time was 22:30 on 03/26. Patient had been found on the floor by her at 05:00 on 03/27 whereupon he tried to rouse her from her stupor, failed, called patient's sister to notify her about patient's condition, and finally left her to go to work. Patient's sister arrived around 09:00 and found patient still lying on the bathroom whereupon this repairer typewriter assumes she called for an ambulance to bring the patient to the ED. In the ED, vitals showed: BP 107/78 HR 94 RR 35 Temp 101.3 SpO2 98% on 15 L BiPAP ED Course: CBC showed high WBC 13.1 w/ neutrophilic predominance but was otherwise WNL. Coagulation panel showed high PT 13.3. ABG showed acidic pH 7.27, normal pCO2 40, high pO2 146, low HCO3 18. CMP showed low carbon dioxide 18.1, high anion gap 19, high creatinine 2.8, low eGFR 19, very high blood glucose 550, very high lactic acid 4.7, high bilirubin 1.6, high AST 146, high ALT 61, high total creatine kinase 9752, very high troponin I 0.427, high BNP 297, and high procalcitonin 43.23. UA showed 2+ protein, 3+ glucose, 1+ ketones, 3+ blood, high RBC 10, high WBC 112, 3+ calcium oxalate crystals, 4+ bacteria, normal random sodium 34.2, normal random potassium 26, and low random chloride 23.2. UDS was (+) for amphetamines/methamphetamines and marijuana. Serological studies were reactive for hepatitis C antibody. Imaging: Head CT showed findings most consistent with acute right frontal lobe infarcts. Brain MRI showed multiple embolic-type foci of restricted diffusion in the bilateral occipital lobes, bilateral frontal lobes, and bilateral parietal lobes most consistent with acute infarcts. CXR showed bibasilar pneumonia and findings suspicious for mild associated heart failure. Renal US showed small kidneys with right renal cortical thinning as well as mild right and moderate left renal parenchymal scar formation. Carotid doppler study showed 20-40% stenosis of the right internal carotid artery and 0-10% stenosis of the left internal carotid artery. EKG was unremarkable. In the ED, patient was given Duoneb Precedex, doxycycline, etomidate, Lasix, regular insulin, ketamine, Versed, naloxone, 1 L LR bolus, Zemuron, and 1 L NS bolus. Patient was intubated due to low GCS and was admitted to the ICU. Nephrology was consulted due to patient's need for urgent hemodialysis. Neurology is also following. Interval History 04/05/2025: Patient was seen and examined at bedside this AM. No acute events overnight. Patient tolerating diet, adequate urine output and mentation is at baseline. Patient endorses improvement of abdominal pain. Patient underwent hemodialysis on 04/03/2025, RFT shows creatinine 3.7 and GFR 14 at this time. Will evaluate for next hemodialysis session tomorrow. Medical management to continue as per primary team. Renal function trending appropriately at this time. Avoid nephrotoxic agents, avoid excessive fluids and renally dose medications. 04/06/2025: patient seen and examined in HD, she was noted to be mildly agitated overnight (given quetiapine 25 overnight). She has no acute complaints, on exam she appears somnolent, per medications documented she did not have any pain meds given recently during time of interview and exam. SBP 150s Pos elevated to 5.5, BUN 43, Cr 4.0 from 3.7. 04/07/2025: Patient seen and examined at bedside, she was noted to be agitated and uncomfortable on exam reporting vague abdominal pain and pointing to her left medial thigh. On exam abdomen is soft nontender nondistended no rebound or guarding noted on exam of her patient appears to be in moderate distress secondary to pain. BUN 24 from 43 creatinine 3.0 from 4.0. Kidney function is improving. Etiology of abdominal pain versus left lower extremity pain is unknown she has several clots, management per primary team. Urine output is not documented as patient is wearing briefs however briefs noted to be wet on exam previously making good urine. Pedal pulses are bounding bilaterally. repeat head CT with Low-density acute infarctions now evident in the left frontoparietal left posterior parietal lobes not seen on the April 02, 2025 exam 04/08/2025 patient currently seen in telemetry. She remains agitated and uncomfortable. Labs and medications have been reviewed. Unable to get dialysis catheter yesterday as she was moving a lot and restless. Spoke to the primary team-will attempt with morphine and Ativan prior to PermCath placement. Also noted goals of care to be discussed with family pending. Review of Systems Review of Systems Narrative Review of Systems: Limited due to her mentation. Patient seems to be very restless and cannot complete review of systems Exam Vital Signs Temp Pulse Resp BP Pulse Ox O2 Del Method O2 Flow Rate 36.6 C 88 18 136/62 H 97 Room Air 2 04/08/25 08:00 04/08/25 10:00 04/08/25 08:00 04/08/25 10:00 04/08/25 08:00 04/08/25 08:00 04/07/25 20:00 FiO2 40 04/05/25 04:00 Narrative Exam General:awake and alert, in moderate distress, reporting abdominal pain. oriented x2, > uncomfortable HEENT: Normocephalic, atraumatic, mucous membranes dry, Heart: Regular rate and rhythm, + murmurs. Lungs: Clear to auscultation . Abdomen: Soft, nondistended, non tender, positive bowel sounds. ?No guarding or rebound tenderness. c/o vague abdominal pain, nonfocal, nonreproducable on exam Neurologic: alert and orientedx2 Extremities: Noted chronic wound of 5 x 6 cm in the right lower extremity bandaged with kerlix. Noted tissue pressure injuries on the upper lateral right and left thigh. Also noted infected area in the right toe. Peripheral pulses are 2+ There is demarcated ischemia of left foot of 1st and 5th digit. L knee surgical scar. Objective Labs 04/07/25 04:43 04/07/25 04:43 Labs: Laboratory Results - last 24 hr 04/07/25 04/07/25 04:43 08:17 PT 12.2 INR 1.1 APTT 29.6 Coccidioides IgM Ab Negative ABG Interpretation ABG results: 03/26/25 03/26/25 03/26/25 11:18 11:44 16:23 ABG pH 7.27 L Cancelled ABG pCO2 40 Cancelled ABG pO2 146 H Cancelled ABG HCO3 18 L Cancelled ABG O2 Saturation 100 H Cancelled ABG Base Excess -8 L Cancelled VBG pH 7.19 L VBG pCO2 48 VBG pO2 37 VBG Base Excess -10 L 03/26/25 03/27/25 03/27/25 18:43 00:17 03:42 ABG pH 7.16 L* D 7.24 L Cancelled ABG pCO2 58 H D 44 D Cancelled ABG pO2 68 L D 80 L Cancelled ABG HCO3 21 19 L Cancelled ABG O2 Saturation 90 L 96 Cancelled ABG Base Excess -9 L -8 L Cancelled VBG pH VBG pCO2 VBG pO2 VBG Base Excess 03/27/25 03/27/25 03/27/25 04:04 07:55 18:48 ABG pH 7.26 L 7.30 L ABG pCO2 43 37 ABG pO2 83 174 H D ABG HCO3 19 L 18 L ABG O2 Saturation 97 101 H ABG Base Excess -7 L -8 L VBG pH 7.21 L 7.31 L VBG pCO2 49 48 VBG pO2 54 52 VBG Base Excess -8 L -2 03/27/25 03/28/25 03/28/25 19:07 04:06 13:37 ABG pH 7.36 7.38 7.41 ABG pCO2 41 45 44 ABG pO2 79 L D 73 L 105 D ABG HCO3 23 27 H 27 H ABG O2 Saturation 97 96 99 H ABG Base Excess -2 1 2 VBG pH VBG pCO2 VBG pO2 VBG Base Excess 03/29/25 03/30/25 03/31/25 04:45 04:50 04:40 ABG pH 7.38 7.42 7.39 ABG pCO2 45 40 41 ABG pO2 72 L D 66 L 63 L ABG HCO3 27 H 26 25 ABG O2 Saturation 98 93 92 ABG Base Excess 1 2 0 VBG pH VBG pCO2 VBG pO2 VBG Base Excess 03/31/25 17:30 ABG pH 7.39 ABG pCO2 36 ABG pO2 80 L ABG HCO3 21 ABG O2 Saturation 96 ABG Base Excess -3 VBG pH VBG pCO2 VBG pO2 VBG Base Excess Assessment & Plan Assessment and plan (1) Ischemic cerebrovascular accident (CVA): Status: Acute (2) Uncontrolled diabetes mellitus: Status: Chronic (3) Pneumonia: Status: Acute Additional Assessment & Plan Additional Plan: Vashti Ross is a 59-year-old F with a PMH of diabetes, hypertension, asthma, substance use disorder (including opiates, probable methamphetamine, and marijuana) on methadone previously, and a chronic right leg wound brought in by ambulance from her home for altered mental status. Patient was intubated due to low GCS and was admitted to the ICU. echo with tricuspid vegitations and EF 40-45%, pt with extensive PE and extensive non occlusive DVT of LLE, SYLVIE revealed atrial septal aneurysm, likely source of embolic strokes in the setting of DVT. per cards, holding off on anticoagulation due to concern for hemorrhagic conversion of infarct. s/p IVC filter, found to have borderline nephrotic range proteinuria, CTA AP without new intrabdominal findings, again patient has vague abdominal pain. repeat ct head with new infarcts of the L frontoparietal and L posterior parietal lobes.no HD today. KINJAL on CKD Stage IV - improving Nephrotic range proteinuria Secondary to Ischemic ATN Rhabdomyolysis DDx: multifactorial etiologies including intravascular depletion, diabetic nephropathy, blood pressure derangements, glomerular diseases, sepsis-induced ATN, rhabdomyolysis, cardiorenal syndrome, crystalline nephropathy associated with oxalate, or atheroembolic disease - Admission creatinine 2.8 (baseline: unknown), eGFR 19 - Possible kidney damage from elevated blood glucose 550 on admission, in addition to CK 9752 and U tox positive for amphetamines/methamphetamines - HD: 03/28 CRRT, HD 03/29, 03/30, 03/31, 04/03, 04/04, 04/06 - RFT: (04/04) BUN 41, CR 4.4 and GFR 11 --> (04/05) BUN 37, Cr 2.7 and GFR 14--> 04/06 BUN 43, Cr 4.0--> 04/07 BUN 24, Cr 3.0 Plan: - HD today if dialysis catheter placed. Will discuss with family regarding goals of care. Not sure if patient can set an outpatient dialysis unit 3 times a week for 3 hours. - Nephrology consulted for worsening CKD while inpatient - Avoid nephrotoxic agents, avoid excessive fluids and renally dose medications. - Hold any KRISSY/ARB/diuretics as KINJAL causing worsening of CKD Other medical problems: CVA- Subarachnoid hemorrhage and multiple acute infarcts In the setting of History of PE Extensive nonocclusive DVT LLE Secondary to Hypercoagulable state Antiphospholipid syndrome, pending rule out - Patient has a hx of miscarriages. Never got coagulation workup - CTA Positive for multiple right lower lobe pulmonary artery and left upper lobe pulmonary artery emboli - Of note, multiple thrombi, lung, spleen, LE, - CThead 04/07 with Low-density acute infarctions now evident in the left frontoparietal left posterior parietal lobes not seen on the April 02, 2025 exam Plan: - Primary team consulted Dr Krishna for hematology workup - s/p IVC filter in place HF mrEF 40 -45% History of Endocarditis Atrial aneurysm NSTEMI, likely type 2 demand ischemia - echo with EF 40 -45% - TTE with tricuspid vegitations - SYLVIE with Atrial septal aneurysm present and bubble study positive for PFO especially with increased right atrial pressure Splenic infarct with thrombus in upper lobe splenic arteries Acute mesenteric ischemia vs ischemic colitis - 04/03 pt has diffuse abdominal pain out of proportion to exam. - 04/07 pt reports nonfocal abdominal pain, no rebound no guarding. T2DM Leukocytosis and AHRF 2/2 PNA - improved Septic shock- resolved, off pressors, Left toes gangreen vs Atheroembolism of left lower extremity toes agitation - managment per primary team Quality - progress note Quality Measures Quality Measures: VTE prophylaxis Reason for Continued Stay Reason for Continued Stay: further monitoring
[2025-04-08 11:53] LABS: Cocci Serology, IgG Negative (Negative)
--- NOTE | 2025-04-08 14:09 | PC.SS ---
Addendum entered by Cassidy Hayes 04/08/25 15:57: SS follow up note; SS contacted Ashanti from [facility] dialysis to check status on chair time and at the time chair time is still being established. SS will follow up tomorrow again. SS will stand by for further needs. Original Note: SS follow up note; SS will have Perm Cath Placement today. Patient will discharge home once chair time is established.
[2025-04-08] MEDS: GABAPENTIN 100 MG CAPSULE PO (14:55)
--- NOTE | 2025-04-08 15:11 | PC.NURSE ---
Attempted to start IV on patient. Initially she agreed to procedure but as RN was inspecting arm for potential insertion site, she became increasingly agitated, pulled arm away, started swinging it around and began to yell profanity expressing her desire to be left alone. Unable to start new IV
[2025-04-08] MEDS: INSULIN LISPRO (AdmeLOG) 1 UNIT/0.01 ML UNIT SC (16:48)
[2025-04-08 19:51] LABS: Albumin 2.4 g/dL (3.8-4.8); Alpha-1-Globulin 0.6 g/dL (0.2-0.3); Alpha-2-Globulin 1.0 g/dL (0.5-0.9); Beta-1-Globulin 0.2 g/dL (0.4-0.6); Beta-2-globulin 0.3 g/dL (0.2-0.5); Gamma Globulin 0.7 g/dL (0.8-1.7)
--- NOTE | 2025-04-08 21:29 | PC.NURSE ---
DR. ELLIOTT MADE AWARE PTS BS 97 DIDN'T HAVE DINNER, HOLD INSULIN, PT ALREADY HAS AN IV AND CEFEPIME INJ 2 X1 ORDER, HEPARIN STOP. ORDER RECEIVED, READ BACK AND CARRIED OUT.
[2025-04-08] MEDS: CEFEPIME INJ 2 GM in SODIUM CHLORIDE 0.9% (Popper) 50 ML IV (22:16)
--- NOTE | 2025-04-08 22:36 | PC.NURSE ---
PT SEDATED, UNSAFE TO GIVE PO MEDICATIONS, OXYGEN SAT 86% ROOM AIR, PT WAS PUT ON 4L NC SAT 95%, RR 17, OTHER VS WNL, PT IN NO DISTRESS, ABLE TO RESPOND TO HER NAME BEING CALLED. DR. ELLIOTT MADE AWARE. OTHER THAN INTERVENTIONS ALREADY INITIATED NO NEW MEDICATIONS. BING BANKS MADE AWARE.
--- NOTE | 2025-04-08 23:42 | PD.NEUROPROG ---
Documentation for date of: 04/08/25 Subjective Subjective Interval history: Patient was seen in [facility] today with his mom at bedside, c/o generalized aches and pains and got restless and was given Dilaudid and is under the effect of it at present. Exam - Neurology Vital Signs Temp Pulse Resp BP Pulse Ox O2 Del Method O2 Flow Rate 98.0 F 88 18 111/55 L 93 L Room Air 2 04/08/25 20:00 04/08/25 22:47 04/08/25 20:00 04/08/25 22:47 04/08/25 20:00 04/08/25 12:00 04/07/25 20:00 FiO2 40 04/05/25 04:00 Narrative Exam GENERAL APPEARANCE: Well hydrated, well-nourished in no acute distress. HEENT: Normocephalic, atraumatic, extraocular movements intact. Pupils: Equal reacting to light and accommodation NECK: Supple, no JVD or bruits. CARDIOVASULAR: Heart: S1, S2 heard, regular without S3-S4 or murmur no rubs or gallops. LUNGS/CHEST: Clear to auscultation bilaterally. No rails, rhonchi, or wheezing. Normal inspection. ABDOMEN: Soft, nontender, with normal bowel sounds. No pulsatile masses. No rebound, rigidity, or guarding. Normal inspection and palpation. EXTREMITIES: Normal inspection and palpation. No edema, clubbing or cyanosis. SKIN: Warm and dry without rashes. Normal inspection. MUSCULOSKELETAL: No cervical, thoracic, lumbar or midline bony tenderness. Normal inspection. NEURO: Resting under the effect of Dilaudid, exam is limited but no focal neurological deficit noted. No signs of meningeal irritation noted. PSYCHIATRIC: Limited Objective Labs 04/07/25 04:43 04/07/25 04:43 Labs: Laboratory Results - last 24 hr 04/07/25 08:17 Coccidioides IgG Ab Negative ABG Interpretation ABG results: 03/26/25 03/26/25 03/26/25 11:18 11:44 16:23 ABG pH 7.27 L Cancelled ABG pCO2 40 Cancelled ABG pO2 146 H Cancelled ABG HCO3 18 L Cancelled ABG O2 Saturation 100 H Cancelled ABG Base Excess -8 L Cancelled VBG pH 7.19 L VBG pCO2 48 VBG pO2 37 VBG Base Excess -10 L 03/26/25 03/27/25 03/27/25 18:43 00:17 03:42 ABG pH 7.16 L* D 7.24 L Cancelled ABG pCO2 58 H D 44 D Cancelled ABG pO2 68 L D 80 L Cancelled ABG HCO3 21 19 L Cancelled ABG O2 Saturation 90 L 96 Cancelled ABG Base Excess -9 L -8 L Cancelled VBG pH VBG pCO2 VBG pO2 VBG Base Excess 03/27/25 03/27/25 03/27/25 04:04 07:55 18:48 ABG pH 7.26 L 7.30 L ABG pCO2 43 37 ABG pO2 83 174 H D ABG HCO3 19 L 18 L ABG O2 Saturation 97 101 H ABG Base Excess -7 L -8 L VBG pH 7.21 L 7.31 L VBG pCO2 49 48 VBG pO2 54 52 VBG Base Excess -8 L -2 03/27/25 03/28/25 03/28/25 19:07 04:06 13:37 ABG pH 7.36 7.38 7.41 ABG pCO2 41 45 44 ABG pO2 79 L D 73 L 105 D ABG HCO3 23 27 H 27 H ABG O2 Saturation 97 96 99 H ABG Base Excess -2 1 2 VBG pH VBG pCO2 VBG pO2 VBG Base Excess 03/29/25 03/30/25 03/31/25 04:45 04:50 04:40 ABG pH 7.38 7.42 7.39 ABG pCO2 45 40 41 ABG pO2 72 L D 66 L 63 L ABG HCO3 27 H 26 25 ABG O2 Saturation 98 93 92 ABG Base Excess 1 2 0 VBG pH VBG pCO2 VBG pO2 VBG Base Excess 03/31/25 17:30 ABG pH 7.39 ABG pCO2 36 ABG pO2 80 L ABG HCO3 21 ABG O2 Saturation 96 ABG Base Excess -3 VBG pH VBG pCO2 VBG pO2 VBG Base Excess Assessment & Plan Assessment and plan (1) Ischemic cerebrovascular accident (CVA): Status: Acute (2) Uncontrolled diabetes mellitus: Status: Chronic (3) Pneumonia: Status: Acute Additional Assessment & Plan Additional Plan: (1) Ischemic cerebrovascular accident (CVA): Status: Acute Assessment and plan: With the recent CTs showing findings suspicious for subarachnoid and intracerebral hemorrhage Continue with aspirin 81 mg and statin Follow-up with the hypercoagulopathy workup Her condition is very unfortunate and family is made aware of the situation with the repeat CT head findings of persistent bleed and not being able to go back on antiocoagulant therapy. (2) Uncontrolled diabetes mellitus: Status: Chronic Assessment and plan: Continue to check fingerstick glucose and follow sliding scale insulin per protocol (3) Pulmonary embolism: Status: Chronic Assessment and plan: She got the IVC filter placement Anticoagulation is difficult to decide from concurrent intracerebral and subarachnoid hemorrhage on the CT head
[2025-04-09] VITALS (26 sets, daily range): BP systolic 97–150; BP diastolic 41–82; PULSE 68–90; RESP 16–94; TEMP 36.1–36.7; O2SAT 92–99; BMI 33.3
[2025-04-09] MEDS: ACETAMINOPHEN 325 MG TABLET 650 MG PO ×2 (05:32→09:36)
[2025-04-09] MEDS: GABAPENTIN 100 MG CAPSULE PO ×2 (05:32→15:37)
--- NOTE | 2025-04-09 05:57 | PC.NURSE ---
DR. ELLIOTT MADE AWARE PT IS AGITATED, SCREAMING, C/O GENERALIZED PAIN AND WANTS TO GET OUT OF BED.
--- NOTE | 2025-04-09 06:01 | XR_ITS ---
Examination: Abdomen AP single view Technique: AP portable supine abdomen, single view Exam date and time: April 09, 2025, 0606 hours INDICATIONS: Abdominal pain and distention today. FINDINGS: Nonobstructive bowel gas pattern. No free air. Calcified mass in the pelvis 27 mm, likely uterine fibroid degeneration. IVC filter L2-L3 level IMPRESSION: Nonobstructive bowel gas pattern.
--- NOTE | 2025-04-09 06:06 | PC.LAC ---
DR. MARCOS AT BEDSIDE, WAS MADE AWARE PT HALLUCINATING, SCREAMING, AND VERBAL ABUSIVE. NO NEW ORDERS CONTINUE TO MONITOR.
[2025-04-09] MEDS: HYDROcodone/APAP 5/325 TABLET 1 TAB PO (06:11)
[2025-04-09 06:16] LABS: Basophils # (Auto) 0.2 Thou/mm3 (0.0-0.2); Basophils % (Auto) 1 % (0-2.5); Eosinophils # (Auto) 0.3 Thou/mm3 (0.0-0.5); Eosinophils % (Auto) 2 % (0-10); Hematocrit 35.8 % (36.0-46.0); Hemoglobin 11.2 g/dL (12.0-16.0); Immature Granulocytes Auto 0.60 Thou/mm3 (0.00-0.00); Lymphocytes # (Auto) 2.0 Thou/mm3 (1.0-4.8); Lymphocytes % (Auto) 16 % (10-50); Mean Corpuscular HGB Conc 31.3 g/dl (31.0-37.0); Mean Corpuscular Hemoglobin 28.9 pg (25.0-35.0); Mean Corpuscular Volume 93 fL (80-100); Monocytes # (Auto) 1.3 Thou/mm3 (0.0-0.8); Monocytes % (Auto) 10 % (0-12); Neutrophils # (Auto) 8.6 Thou/mm3 (1.8-7.7); Neutrophils % (Auto) 66 % (37-80); Nucleated Red Blood Cell # 0.00 Thou/mm3 (0.00-0.00); Nucleated Red Blood Cell % 0 /100 WBC (0); Platelet Count 618 Thou/mm3 (140-440); RDW Standard Deviation 51.8 fL (36.4-46.3); Red Blood Count 3.87 Miln/mm3 (4.00-5.20); White Blood Count 13.0 Thou/mm3 (3.6-11.0)
[2025-04-09 06:29] LABS: Alanine Aminotransferase 20 U/L (10-49); Albumin, Serum 3.8 gm/dL (3.5-5.0); Albumin/Globulin Ratio 1.2 (1.2-2.2); Alkaline Phosphatase 74 U/L (46-116); Anion Gap 15 (7-16); Aspartate Amino Transferase 24 U/L (0-34); BUN/Creatinine Ratio 10 Ratio (12-20); Bilirubin,Total 0.6 mg/dL (0.3-1.2); Blood Urea Nitrogen 30 mg/dL (9-23); Calcium 10.2 mg/dL (8.3-10.6); Calcium (Corrected) 10.4 mg/dL (8.5-10.1); Carbon Dioxide 22.3 mMol/L (20.0-31.0); Chloride 102 mMol/L (98-107); Creatinine (Component) 3.0 mg/dL (0.6-1.3); Estimated Creatinine Clearance 19.9 mL/min (>60); Globulin 3.2 gm/dL (2.3-3.5); Glucose 126 mg/dL (74-106); Magnesium 1.9 mg/dL (1.6-2.6); Osmolality,Calculated 285 (275-295); Phosphorous 4.7 mg/dL (2.4-5.1); Potassium 4.0 mMol/L (3.4-5.1); Sodium 139 mMol/L (136-145); Total Protein 7.0 gm/dL (5.7-8.2); eGFR 17 See Note
[2025-04-09 06:33] LABS: DNA (ds) Antibody* <1 IU/mL; Factor V Leiden Mutation NEGATIVE
[2025-04-09 06:33] LABS: Protein, total, serum 5.2 g/dL (6.1-8.1)
[2025-04-09 08:21] LABS: Vancomycin,Random 14.1 mcg/mL
--- NOTE | 2025-04-09 08:24 | ESPR_ITS ---
<Statement entered by Hayley Dubois MD - 04/21/25 08:43> I reviewed above note and agree with findings and plans. I have also personally examined the patient with medicine team and went over assessment and plan with medical team including data analysis intern and resident physician. <Statement entered by Kentrell Hendricks MD - 04/09/25 18:33> Patient was examined and case was reviewed with team including attending physician. Note reviewed, I agree with most of its contents and agree with the patient's care as documented by Dr. Rand Patient seen evaluated the bedside. Around 4 AM patient became agitated and required Benadryl to calm the patient. Patient has been calm throughout the day. Patient also in need of dialysis so temporary dialysis catheter will be placed in the meantime well tunneled dialysis catheter is arranged. Case discussed with my attending Dr. Sherly Hendricks MD PGY-2 Disclaimer: Despite multiple revisions, due to the dictation software being used, the document bellow may not be free of grammatical errors including phonetic/typographic errors. However, this does not deter from our commitment to providing health care in the patient's best interest in mind. Documentation for date of: 04/09/25 Subjective Subjective Interval history: 04/09/25: Patient was evaluated and examined at bedside. When examined, patient was calm and cooperative however she has had episodes of agigations throughout the day. Temporary HD catheter was placed today by the ICU team. Exam Vital Signs Temp Pulse Resp BP Pulse Ox O2 Del Method O2 Flow Rate 97.1 F 85 18 123/60 92 L Room Air 3 04/09/25 04:00 04/09/25 05:32 04/09/25 04:00 04/09/25 05:32 04/09/25 04:00 04/09/25 00:00 04/09/25 00:15 FiO2 40 04/05/25 04:00 Narrative Exam General: Off sedation, appears comfortable. Poor hygiene. A/O x2. Agitated at times. HEENT: Normocephalic, atraumatic, mucous membranes moist. Heart: Regular rate and rhythm, no murmurs. Lungs: Clear to auscultation with no wheezing or crackles. Abdomen: Soft, mildly distended, mild discomfort to palpation throughout. No guarding or rebound tenderness. Neurologic: Bilateral pupils are equal and reacting to light. Able to move all extremities. Muscle strength 4/5 throughout. Extremities: Noted surgical scar on the left knee likely from TKR. Noted chronic wound of 5 x 6 cm in the right lower extremity. Noted tissue pressure injuries on the upper lateral right and left thigh. Also noted infected area in the right toe and left 1st and 5th toes. Skin: No rash or ecchymoses. Objective Labs 04/09/25 05:10 04/09/25 05:10 Labs: Laboratory Results - last 24 hr 04/02/25 04/02/25 04/07/25 04:25 11:00 08:17 WBC RBC Hgb Hct MCV MCH MCHC RDW Std Deviation Plt Count Neut % (Auto) Lymph % (Auto) Dale % (Auto) Eos % (Auto) Baso % (Auto) Neut # (Auto) Lymph # (Auto) Dale # (Auto) Eos # (Auto) Baso # (Auto) Immature Gran # (Auto) Absolute Nucleated RBC Immature Gran % Nucleated RBC % Factor V Leiden Mutat NEGATIVE Factor V Leiden Interp See Below Sodium Potassium Chloride Carbon Dioxide Anion Gap BUN Creatinine Estim Creat Clear Calc eGFR BUN/Creatinine Ratio Glucose Calculated Osmolality Calcium Corrected Calcium Phosphorus Magnesium Total Bilirubin AST ALT Alkaline Phosphatase Total Protein 5.2 L Albumin 2.4 L Globulin Albumin/Globulin Ratio Qwsll-5-Izyoetwlp 0.6 H Rgxtb-3-Xdtosnfnv 1.0 H Nfag-0-Aspemqtk 0.2 L Epvu-0-Fhzflobc 0.3 Gamma Globulins 0.7 L Abnorm Protein Band 1 TNP Abnorm Protein Band 2 TNP Abnorm Protein Band 3 TNP PEP Interpretation SEE NOTE Random Vancomycin Double Strand DNA Ab <1 Coccidioides IgG Ab Negative Misc Test Result See Sep Rpt 04/09/25 05:10 WBC 13.0 H RBC 3.87 L Hgb 11.2 L Hct 35.8 L MCV 93 MCH 28.9 MCHC 31.3 RDW Std Deviation 51.8 H Plt Count 618 H D Neut % (Auto) 66 Lymph % (Auto) 16 Dale % (Auto) 10 Eos % (Auto) 2 Baso % (Auto) 1 Neut # (Auto) 8.6 H Lymph # (Auto) 2.0 Dale # (Auto) 1.3 H Eos # (Auto) 0.3 Baso # (Auto) 0.2 Immature Gran # (Auto) 0.60 H Absolute Nucleated RBC 0.00 Immature Gran % 5 H Nucleated RBC % 0 Factor V Leiden Mutat Factor V Leiden Interp Sodium 139 Potassium 4.0 Chloride 102 Carbon Dioxide 22.3 Anion Gap 15 BUN 30 H Creatinine 3.0 H Estim Creat Clear Calc 19.9 L eGFR 17 L BUN/Creatinine Ratio 10 L Glucose 126 H Calculated Osmolality 285 Calcium 10.2 Corrected Calcium 10.4 H Phosphorus 4.7 Magnesium 1.9 Total Bilirubin 0.6 AST 24 ALT 20 Alkaline Phosphatase 74 Total Protein 7.0 Albumin 3.8 Globulin 3.2 Albumin/Globulin Ratio 1.2 Ebdsq-3-Xcxqjtomy Uufil-2-Lwanmlojj Oxfv-0-Uimsyild Qxuj-7-Oujnjblt Gamma Globulins Abnorm Protein Band 1 Abnorm Protein Band 2 Abnorm Protein Band 3 PEP Interpretation Random Vancomycin 14.1 Double Strand DNA Ab Coccidioides IgG Ab Misc Test Result ABG Interpretation ABG results: 03/26/25 03/26/25 03/26/25 11:18 11:44 16:23 ABG pH 7.27 L Cancelled ABG pCO2 40 Cancelled ABG pO2 146 H Cancelled ABG HCO3 18 L Cancelled ABG O2 Saturation 100 H Cancelled ABG Base Excess -8 L Cancelled VBG pH 7.19 L VBG pCO2 48 VBG pO2 37 VBG Base Excess -10 L 03/26/25 03/27/25 03/27/25 18:43 00:17 03:42 ABG pH 7.16 L* D 7.24 L Cancelled ABG pCO2 58 H D 44 D Cancelled ABG pO2 68 L D 80 L Cancelled ABG HCO3 21 19 L Cancelled ABG O2 Saturation 90 L 96 Cancelled ABG Base Excess -9 L -8 L Cancelled VBG pH VBG pCO2 VBG pO2 VBG Base Excess 03/27/25 03/27/25 03/27/25 04:04 07:55 18:48 ABG pH 7.26 L 7.30 L ABG pCO2 43 37 ABG pO2 83 174 H D ABG HCO3 19 L 18 L ABG O2 Saturation 97 101 H ABG Base Excess -7 L -8 L VBG pH 7.21 L 7.31 L VBG pCO2 49 48 VBG pO2 54 52 VBG Base Excess -8 L -2 08/03/28/25 03/28/25 19:07 04:06 13:37 ABG pH 7.36 7.38 7.41 ABG pCO2 41 45 44 ABG pO2 79 L D 73 L 105 D ABG HCO3 23 27 H 27 H ABG O2 Saturation 97 96 99 H ABG Base Excess -2 1 2 VBG pH VBG pCO2 VBG pO2 VBG Base Excess 03/29/25 03/30/25 03/31/25 04:45 04:50 04:40 ABG pH 7.38 7.42 7.39 ABG pCO2 45 40 41 ABG pO2 72 L D 66 L 63 L ABG HCO3 27 H 26 25 ABG O2 Saturation 98 93 92 ABG Base Excess 1 2 0 VBG pH VBG pCO2 VBG pO2 VBG Base Excess 03/31/25 17:30 ABG pH 7.39 ABG pCO2 36 ABG pO2 80 L ABG HCO3 21 ABG O2 Saturation 96 ABG Base Excess -3 VBG pH VBG pCO2 VBG pO2 VBG Base Excess Quality Measures Quality Measures VTE prophylaxis Assessment & Plan Assessment Current Active Medications: Generic Name Dose Route Start Last Admin Trade Name Freq PRN Reason Stop Dose Admin Acetaminophen 650 mg 04/01/25 09:12 04/09/25 05:32 Acetaminophen 325 Mg Tablet PO 04/25/25 18:57 650 mg Q4HR PRN Administration Pain Scale 1-3 OR fever >100.4 Albuterol/Ipratropium 3 ml 04/09/25 00:14 Albuterol/Ipratropium (Duoneb) Rt Jennifer 3 Ml Nebu INH 04/26/25 00:59 Q6HRRT PRN short Amlodipine Besylate 10 mg 04/02/25 09:00 04/08/25 10:00 Amlodipine Besylate 5 Mg Tablet PO 05/02/25 08:59 10 mg QDAY CRIS Administration Ascorbic Acid 250 mg 04/03/25 12:00 04/08/25 21:47 Ascorbic Acid 250 Mg Tablet PO 05/03/25 11:59 Not Given BID CRIS Aspirin 81 mg 04/01/25 09:30 04/08/25 09:59 Aspirin Ec 81 Mg Tabec PO 05/01/25 09:29 81 mg QDAY CRIS Administration Atorvastatin Calcium 80 mg 03/26/25 21:00 04/08/25 22:46 Atorvastatin Calcium 20 Mg Tablet PO 04/25/25 20:59 Not Given HS [facility] Carvedilol 6.25 mg 04/01/25 17:30 04/08/25 17:30 Carvedilol 3.125 Mg Tablet PO 05/01/25 17:29 Not Given BIDWM CRIS Dextrose 25 ml 03/26/25 20:20 Dextrose 50%-Water Inj 50 Ml Syringe IV 04/25/25 20:19 Q15MIN PRN BG 50-70 responsive npo pt Dextrose 50 ml 03/26/25 20:20 Dextrose 50%-Water Inj 50 Ml Syringe IV 04/25/25 20:19 Q15MIN PRN BG <50 OR BG <70 & pt unresponsive Gabapentin 100 mg 04/06/25 22:00 04/09/25 05:32 Gabapentin 100 Mg Capsule PO 05/06/25 21:59 100 mg TID CRIS Administration Glucagon 1 mg 03/26/25 20:20 Glucagon Inj 1 Mg Vial IM Q15MIN PRN BG <70, and no IV access Heparin Sodium (Porcine) 2,600 unit 03/28/25 19:33 04/06/25 13:13 Heparin Sod Inj 1000 Unit/Ml Vial 10 Ml INDWELLCAT 04/11/25 19:32 2,600 unit X1 PRN Administration DIALYSIS Hydralazine HCl 25 mg 04/01/25 14:00 04/09/25 05:32 Hydralazine Hcl 25 Mg Tablet PO 05/01/25 13:59 25 mg TID CRIS Administration Cefepime HCl 2 gm/ Sodium 50 mls @ 100 mls/hr 04/04/25 12:45 04/08/25 17:30 Chloride IV 04/11/25 12:44 Not Given QDAY@1800 [facility] Insulin Degludec 24 unit 04/01/25 21:00 04/08/25 21:18 Insulin Degludec 5 Unit/0.05 Ml (Per 5 Units) SC 05/01/25 20:59 Not Given HS [facility] Insulin Human Lispro 0 unit 04/04/25 21:00 04/09/25 07:44 Insulin Lispro (Admelog) 1 Unit/0.01 Ml Unit SC 05/04/25 20:59 Not Given ACHS [facility] Protocol Labetalol HCl 10 mg 04/01/25 11:16 Labetalol Inj 5 Mg/Ml Vial 20 Ml IVP 05/01/25 11:29 Q4HR PRN if SBP>140 Nicotine 21 mg 04/05/25 10:45 04/08/25 10:00 Nicotine Patch 21 Mg/24 Hr Patch.Td24 TOP 05/05/25 10:44 21 mg QDAY CRIS Administration Pharmacy Consult 1 each 04/04/25 12:30 Vancomycin Pharmacy To Dose 1 Each Each IV 05/04/25 12:29 QDAY PRN PROTOCOL Quetiapine Fumarate 25 mg 04/08/25 21:00 04/08/25 22:46 Quetiapine Fumarate 25 Mg Tablet PO 05/08/25 20:59 Not Given HS CRIS Sevelamer Carbonate 800 mg 04/05/25 08:00 04/08/25 17:30 Sevelamer Carbonate 800 Mg Tablet PO 05/05/25 07:59 Not Given TIDWM CRIS Vitamin B Complex/Vit C/Folic Acid 1 tab 04/03/25 12:00 04/08/25 09:59 Vit B12/Vit C/Fa (Nephrovite) Tablet PO 05/03/25 11:59 1 tab QDAY [facility] Administration Zinc Sulfate 220 mg 04/03/25 12:00 04/08/25 09:59 Zinc Sulfate 220 Mg Capsule PO 04/17/25 11:59 220 mg QDAY CRIS Administration Plan 59F with PMH of DM, HTN, asthma, drug use disorder, and a chronic right leg wound was brought to the ED after being found unresponsive at home where she was found to have acute encephalopathy with low GCS requiring intubation and ICU admission for ventilator support, pressor support for likely septic shock, and CRRT. Patient found to have multi embolic disease involving multiple systems including brain and left distal extremity, acute and failure with the cause likely renal emboli. #Acute encephalopathy, multifactorial, related to metabolic derangement, substance use, and embolic CVA (Resolving) #Acute Multiple embolic type foci occipital lobes, bilateral frontal and bilateral parietal lobe #Atrial septal aneurysm #PFO #Subarachnoid hemorrhage #Endocarditis - r/o #Tricuspid valve vegetation - r/o -Patient came in with altered sensorium and head CT at the time showed multiple bilateral infarcts, likely embolic. Patient was weaned off sedation and extubated on 03/31/2025, tolerated well. Currently, patient is improving and is alert and oriented. Patient has extensive DVT in the left lower extremity also noted to have pulmonary embolism, patient might be having embolism through PFO and reaching the systemic circulation. -TTE showed normal size left ventricle with mild apical and global hypokinesis LVEF 40-45%. Evidence of Tricuspid valve vegetation suggestive of endocarditis. The RV is normal in size. The right ventricular systolic function is mildly decreased. Aortic valve sclerosis thickened wih mild aortic regurgitation. Mitral valve thickening with mild mitral regurgitation. -SYLVIE (03/30/25) confirmed no vegetations. Noted to have atrial aneurysm bulging into left atrium, bubble study done showed PFO -EEG from 04/02/25 shows diffuse slowing suggestive of a diffuse encephalopathy of vascular origin. -Per neurology team, given PE and small PFO, PE could be the cause of embolism vs endocardititis but less likely as negative SYLVIE for vegation. Although leukocytosis noted, less likely secondary to endocarditis in origin and more likely secondary to ischemia vs less likely increased coagulopathy as no previous history of DVTs. -Hematology Dr. Krishna was consulted who agreed with the current plan. -MR venogram negative for any thrombus -New blood cx negative -1/2 samples positive for lupus anticoagulant. Weakly positive for hexagonal phase confirm test. Positive EFFIE. Pending the rest of hypercoagulopathy tests. -Repeat brain CT (04/07/25) shows slightly less prominent subtle subarachinoid hemorrhage in the frontoparietal convexities compared to the previous scan. Also, low-density acute infarctions are now evident in the left frontoparietal, left posterior parietal lobbes that were not seen in the previous scan. Plan: - Discussed with patient and their family members regarding the current plan of starting anticoagulation medication if cleared by neurology team. Explained to patient and their family members regarding risks and benefits of starting anticoagulation. Explained to them that if we don't start anticoagulation her PE and DVT may have negative consequences (ie. worsening of her current condition) and she may be at risk for more thromboses and on the other hand, if we do start these medications she may be at risk for new brain hemorrhage, worsening of current hemorrhage or bleedings else where in her body. Patient and family understands the risks and benefits and agree with the plan of starting anticoagulation if prompted by the neurology team. At this moment, the neurology team is advising against starting anticoagulation medications given new CT findings. - Patient's declined hospice care. Will reevaluate at a later time. - Will continue atorvastatin and Aspirin for now - Cannot start on heparin drip as patient noted to have subtle hemorrhage on repeat CT head done on 04/07/2025. Repeat CT head from 04/02 showed stable multiple areas of subarachnoid hemorrhage compared to 04/01 - IVC filter placement is done on 03/31/2025 to prevent further embolic strokes through PFO from DVT - No need of urgent PFO closure as per Dr. Nayak. - PT and speech therapy - Pending hypercoaugulable workup due to suspected Antiphospholipid syndrome due to DVT and other infarcts #Septic shock (resolved) #Hospital-Acquired PNA (Improved) # UTI (Improved) At the time of admission, patient was noted to have bilateral lower extremity edema and bilateral diffuse inspiratory crackles -possible heart failure in the setting of methamphetamine abuse, diabetes, hypertension. Also noted to have temperature of 101.8 ?F at the time of admission, likely due to some ongoing infection. Fits into 2/3 qsofa criteria. Noted to have GCS less than 15 and respiratory rate 35/min. Suspecting sepsis worsening the underlying heart failure resulting in suspected possible combined septic and cardiogenic shock. DDx: Combined cardiogenic and septic shock Patient was started on Levophed and weaned off completely on 03/30/2025 WBC on admission 13.1, procalcitonin 43.23. UA showed turbid urine with 2+ proteinuria, 3+ glucosuria, 112 WBC, 4+ bacteria suggestive of UTI. Urine culture positive for E.coli, blood cultures negative. TTE showed vegetations of the trisupid valve concerning for endocarditis. WBC now down trending to 13.0 from 21.6 3 days ago. Patient remains afebrile. Initially patient was started on vancomycin and Zosyn [03/27-03/30], discontinued Vanco and Zosyn, Started on Rocephin (03/30-04/04) Blood cx and sputum culture negative Plan: - Continue Vancomycin and cefepime 2g to cover for HAP (04/04/25-) - Will continue to monitor vitals # Acute hypoxic respiratory failure, resolving # Respiratory acidosis (resolved) Per patient family, patient does not have any previous history of respiratory problems and is not using any inhalers. Not a smoker. ABG at the time of admission showed pH 7.16, pCO2 58, pO2 68, FiO2 100%. Repeat ABG done on 03/27/2024 showed pH 7.3, pCO2 37, bicarb 18. Repeat ABGs done after 03/28/2025 is within normal limits. CTA chest Positive for multiple right lower pulmonary artery filling defects. Positive for left upper lobe pulmonary artery filling defects. No emboli in the main pulmonary artery segments. Pneumonia versus infarction in both lower lung zones. CXR shows bibasilar pneumonia DDx: Sepsis, acute encephalopathy, pulmonary edema, pulmonary embolism, combined. Patient was intubated, sedated and placed on mechanical ventilator on 03/26 and extubated on 03/31. Though patient had pulmonary embolism, patient oxygen needs is coming down. CTA abd&pelvis on 04/04 still reveals pneumonia at the left base Plan: - Continue ABx as above - Will continue oxygen as needed for now. #KINJAL (Improving) #Acute renal failure likely 2/2 septic shock vs. renal emboli vs. rhabdomyolysis Patient does not follow-up any primary care doctor and unsure of her baseline kidney functions. Patient noted to have decreased urine output and oliguric since the time of admission. Creatinine at the time of admission is 2.8 --> 03/30, 2.4 --> 03/31, 3.1 --> 04/01, 4.9 --> 04/03, 5.5--> 04/07 3.0-->04/09, 3.0 DDx: Prerenal versus ATN in the setting of shock versus possible cardiorenal syndrome versus CKD in the setting of diabetes mellitus and hypertension versus embolic versus rhabdomyolysis Patient received HD yesterday; however, given persistant abnormal electrolyte, patient will have another HD today. Negative blood cx x2 Plan: - Patient did not tolerate permanent cath placement (04/07/25). Recommended by radiology team to perform this under anesthesia; however, given current active medical problems we predict poor outcomes if patient undergoes anesthesia at this time. Discussed the case with the nephrology team, as they recommend permanent catheter placement for dialysis that patient will need for upon discharge. - IR refused repeating permanent catheter placement given patient's inadequate sedation in the last attempt as she was not cooperative. - Temporary HD cath was placed by ICU team (04/09/25). Patient will need a permanent cath placement prior to discharge, as this can be done on Sunday by IR here at [facility] or transfer to [facility]. - IV albumin prn - Held IV Bumex - Will continue to monitor urine output - Monitor renal panel - Avoid nephrotoxic agents (aminoglycosides, NSAIDs, radiographic contrast) - Adjust medication dosing based on patient's impaired renal function - Hold any KRISSY/ARB/diuretics - Analytical Technician, Dr. Zelaya is consulted and patient was started on CRRT through dialysis catheter placement in the right IJV on 03/27 - Received HD on 03/29, 03/30, 03/31, 04/03, 04/04 - Hold getting CT guided renal biopsy, to assess proteinuria - Started Sevelamer 800 mg TID with meals for hyperphosphatemia despite HD yesterday # HFrEF, EF 40 to 45% #Substance Use Disorder Unsure whether patient is regular methamphetamine user, as family members is not aware of the use. Patient also have severe uncontrolled diabetes mellitus, which could also contribute to the ischemic heart disease and CHF. Plan: - Patient should be started on GDMT but in the setting of ongoing acute kidney injury and recovering shock, will hold GDMT for now - Removed fluid through CRRT/HD #NSTEMI type type I (embolic [place]) vs. Type 2 (demand ischemia 2/2 shock) In the setting of demand ischemia. Troponin at the time of admission is 0.427, peaked at 20.920 and later down trended. EKG did not show any ST-T wave changes Plan: - Will continue telemetry monitoring - Puppet Engineer, Dr. Nayak is consulted and will follow the recommendations # Pulmonary embolism # DVT Patient was noted to have mismatch between end-tidal CO2 and arterial CO2, also noted to have increased oxygen requirements on the ventilator for which CTA chest was ordered on 03/28/2025 CTA chest was positive for multiple right lower pulmonary artery filling defects. Positive for left upper lobe pulmonary artery filling defects. No emboli in the main pulmonary artery segments. Pneumonia versus infarction in both lower lung zones. Echocardiogram did not show any RV strain, though patient noted to have elevated troponin with peak level at 20.920, later down trended. EKG did not show any signs suggestive of pulmonary embolism. Venous doppler of LLE showed extensive chronic nonocclusive DVT involving the common femoral left superficial femoral, popliteal, peroneal, posterior tibial and greater saphenous veins. Tubular structures in the right popliteal fossa 6.0 cm in left popliteal fossa Plan: - Patient cannot be anticoagulated as of now as patient had hemorrhagic infarcts in the brain and is high risk for bleeding and is currently have subtle subarachinoid hemorrhage - IVC filter is by Dr. Murillo on 03/31/2025 - Patient is not a candidate of mechanical thrombectomy as of now and does not seem to be in right heart failure #Hypertension (imporved) Patient noted to have history of hypertension but not using any medications before coming to the hospital BP initially elevated with SBP around 180-190. Now stabilized around 130s-140s. Plan - Continue amlodipine and carvedilol - Will continue to monitor blood pressures and titrate medications as needed #Agitation Patient was noted to be agitated during night times recently and pulling out her IV access lines and vital sign monitors. Plan: -Start Seroquel 25 PO qhs #Abdominal pain (resolved) #Umbilical hernia with incarcerated fat #Gallbladder sludge #Prominent pancreatic head #Right hilum mass #Right lower lobe mass #Left adrenal gland mass #Uterine fundal mass #Focal mucinosis Patient reported diffuse abdominal pain today (04/03/25). On exam, diffuse TTP noted mainly in RUQ and LUQ with no peritinic signs. Her LUQ could be due to the renal infarct that has been noted on recent CT. Lactate: 1.1 BIOCHEMISTRY TECHNOLOGIST was called while receiving HD. CTA abd&pelvis was ordered which showed gallbladder sludge and 22mm umbilical hernia with incarcerated fat and negative for any bowel ischemia. Patient was placed NPO and OG tube was inserted however later was pulled out by pt. General surgery Dr. Wood was consulted who recommended no surgical intervention at this time given current comorbidities and the fact that the hernia is most likely chronic. RUQ US was ordered due to concern for budd chiari which was negative for gallstones, however showed thickened gallbladder wall of 0.45cm and prominent pancreatic head of 3.5cm and moderate hepatomegaly. Below incidental findings were also noted in the CTA abd&pelvis: Mass contiguous with the right hilum 32 mm Mass in the right lower lobe 28 mm Nodular thickening left adrenal gland measuring 24 mm Atrophic anteverted uterus with calcified uterine fundal mass Pathology report on 04/06 for the biopsy of the left medial knee skin shows benign skin with changes suggesting focal mucinosis without signs of neoplasia Plan: - CTM - Advanced diet to full liquid. We will assess for patient''s tolerance and assess for bowel movement and passing flatulence. Will consult surgery again if indicated. - Patient will need to follow up with PCP upon discharge for the incidental findings listed above # Transaminitis (resolved) # Hyperbilirubinemia (resolved) #Hepatitis C At the time of admission patient was found to have bilirubin of 1.6, AST 146, ALT 61 ---> 03/31, AST 76, ALT 74 --> 04/03, AST 42 , ALT 65--> 04/07 AST 25, ALT 29 DDx: Fatty liver versus chronic liver disease versus viral hepatitis versus secondary to ongoing septic shock and possible suspected ischemia Tested positive for hepatitis C antibody. Liver ultrasound showed 10 mm gallstone, CBD enlarged 0.6 cm, liver 18.5 cm fatty infiltration Plan: - Will continue to monitor liver functions - Patient has to follow-up with hurl shaker on discharge on outpatient basis for follow-up on hepatitis C, currently does not suspect any active viral hepatitis # High anion gap metabolic acidosis (resolved) # Lactic acidosis (resolved) Likely in the setting of ongoing shock, likely due to sepsis. At the time of admission, anion gap is 19, lactate is 4.7 ---> /, AG 22, Lactate 1.1 --> 04/03 AG 16, lactate 1.1 Anion gap improved on day of admission and lactic acidosis is slowly improving after starting CRRT. Plan: - Received CRRT on 03/27 and 03/28, HD on 03/29, 03/30, 03/31, 04/03, 04/04, 04/06 - Will continue to monitor lab values # Rhabdomyolysis (resolved) Patient happened to be on the floor lying down for 4 to 5 hours and also tested positive for methamphetamine on urine toxicology CK at the time of presentation is [id number] and received 2 L of fluid in the ED, as patient is fluid overloaded cannot give more fluids CK levels continue to trend down slowly to 1187. Plan: -CTM # Uncontrolled type 2 diabetes mellitus Patient is not following any primary care provider and not taking medications properly per patient's family. Blood glucose at the time of admission is 550 for which patient was given 10 units of lispro in the ED. The patient had high anion gap metabolic acidosis, tested negative for beta- hydroxybutyrate and DKA is ruled out. A1C: 13.6 Patient achieving appropriate glucose control with current regimen Plan: - Degludec 24 U QHS + ISS step 3 - Will titrate degludec according to FBS # Chronic right leg wound Likely from uncontrolled diabetes mellitus and venous congestion. On physical examination, noted 5 x 6 cm wound with well-healing granulation tissue. Arterial Doppler was ordered which showed no PAD in bilateral lower extremities Plan - Wound care consulted - Continue Vitamin C 250mg BID - Continue Zinc sulfate 220mg Qday x14 days (04/03-) - Nephro-Vu # History of asthma Unclear if patient is using inhalers or if she has recent exacerbations. Currently does not appear to be in any exacerbations Plan: -CTM Health Maintenance: Diet: cons carb GI prophylaxis: Protonix DVT prophylaxis: Heparin subcut 5000 units every 8 hours Antibiotics: Cefepime 2 g IV, Vancomycin (pharm to dose) CODE STATUS: Full Disposition: HAP management Case discussed with attending Dr. Dubois and senior resident Dr. Adis Rand, PGY1
--- NOTE | 2025-04-09 08:45 | XR_ITS ---
Examination: Venous duplex lower extremity sonogram, bilateral. Date and time of exam: April 01, 2025 1052 hrs. Indications: Weakness and Doppler study March 29, 2025 extensive nonocclusive DVT in the left lower extremity Technique: Multiple sonographic images of the deep venous system have been obtained. B-mode/2-D grayscale imaging of vascular structures and Doppler spectral analysis (waveforms) and color performed Both legs are examined. Findings: Normal right lower extremity deep venous system Left lower extremity demonstrates acute occlusive thrombus in the left popliteal left peroneal veins, less extensive however compared to prior study Impression: Partial improvement in the vein thrombus left lower extremity compared to March 29, 2025
[2025-04-09] MEDS: ZINC SULFATE 220 MG CAPSULE PO (09:29)
[2025-04-09] MEDS: VIT B12/Vit C/FA (Nephrovite) TABLET 1 TAB PO (09:30)
[2025-04-09] MEDS: NICOTINE PATCH 21 MG/24 HR PATCH.TD24 TOP (09:30)
[2025-04-09] MEDS: ASPIRIN EC 81 MG TABEC PO (09:30)
[2025-04-09] MEDS: ASCORBIC ACID 250 MG TABLET PO (09:30)
[2025-04-09] MEDS: SEVELAMER CARBONATE 800 MG TABLET PO (09:31)
[2025-04-09] MEDS: VANCOMYCIN/NS 500 MG IVPB 100 ML 60 MG IV (09:36)
--- NOTE | 2025-04-09 10:27 | ESPR_ITS ---
Documentation for date of: 04/09/25 Subjective Subjective Interval history: History of present illness: (patient was intubated during this card writer hand's visit so the following narrative was constructed primarily via chart checking) Vashti Ross is a 59-year-old F with a PMH of diabetes, hypertension, asthma, substance use disorder (including opiates, probable methamphetamine, and marijuana) on methadone previously, and a chronic right leg wound brought in by ambulance from her home for altered mental status. Per ED rendition of EMS report, patient was noted to be altered with a respiratory rate of 4 en route to [facility]. A total of 8 mg of Narcan was administered at this time which initially improved mentation. Upon arrival, patient was noted to be somnolent and given an additional 0.4 mg of IV Narcan which made her more active but also more combative. She was also noted to be hypoxic and in respiratory distress upon arrival which led her to be put on BiPAP. During her agitated episode, patient endorsed that she hurt all over and loudly yelled that I gotta get out of here . She was eventually given 2 mg of IV Versed and put on restraints due to her continued agitation. Later, she was taken for an MRI which required removal of her BiPAP but upon removal a subsequent drop in O2 saturation to the low 90s was noted. It was deemed that her airway was not secure and the decision was made to intubate the patient. After the MRI was performed, patient was eventually admitted to the ICU. From family collateral, it was learned that patient's last known well time was 22:30 on 03/26. Patient had been found on the floor by her at 05:00 on 03/27 whereupon he tried to rouse her from her stupor, failed, called patient's sister to notify her about patient's condition, and finally left her to go to work. Patient's sister arrived around 09:00 and found patient still lying on the bathroom whereupon this card writer hand assumes she called for an ambulance to bring the patient to the ED. In the ED, vitals showed: BP 107/78 HR 94 RR 35 Temp 101.3 SpO2 98% on 15 L BiPAP ED Course: CBC showed high WBC 13.1 w/ neutrophilic predominance but was otherwise WNL. Coagulation panel showed high PT 13.3. ABG showed acidic pH 7.27, normal pCO2 40, high pO2 146, low HCO3 18. CMP showed low carbon dioxide 18.1, high anion gap 19, high creatinine 2.8, low eGFR 19, very high blood glucose 550, very high lactic acid 4.7, high bilirubin 1.6, high AST 146, high ALT 61, high total creatine kinase 9752, very high troponin I 0.427, high BNP 297, and high procalcitonin 43.23. UA showed 2+ protein, 3+ glucose, 1+ ketones, 3+ blood, high RBC 10, high WBC 112, 3+ calcium oxalate crystals, 4+ bacteria, normal random sodium 34.2, normal random potassium 26, and low random chloride 23.2. UDS was (+) for amphetamines/methamphetamines and marijuana. Serological studies were reactive for hepatitis C antibody. Imaging: Head CT showed findings most consistent with acute right frontal lobe infarcts. Brain MRI showed multiple embolic-type foci of restricted diffusion in the b ilateral occipital lobes, bilateral frontal lobes, and bilateral parietal lobes most consistent with acute infarcts. CXR showed bibasilar pneumonia and findings suspicious for mild associated heart failure. Renal US showed small kidneys with right renal cortical thinning as well as mild right and moderate left renal parenchymal scar formation. Carotid doppler study showed 20-40% stenosis of the right internal carotid artery and 0-10% stenosis of the left internal carotid artery. EKG was unremarkable. In the ED, patient was given Duoneb Precedex, doxycycline, etomidate, Lasix, regular insulin, ketamine, Versed, naloxone, 1 L LR bolus, Zemuron, and 1 L NS bolus. Patient was intubated due to low GCS and was admitted to the ICU. Nephrology was consulted due to patient's need for urgent hemodialysis. Neurology is also following. Interval History 04/05/2025: Patient was seen and examined at bedside this AM. No acute events overnight. Patient tolerating diet, adequate urine output and mentation is at baseline. Patient endorses improvement of abdominal pain. Patient underwent hemodialysis on 04/03/2025, RFT shows creatinine 3.7 and GFR 14 at this time. Will evaluate for next hemodialysis session tomorrow. Medical management to continue as per primary team. Renal function trending appropriately at this time. Avoid nephrotoxic agents, avoid excessive fluids and renally dose medications. 04/06/2025: patient seen and examined in HD, she was noted to be mildly agitated overnight (given quetiapine 25 overnight). She has no acute complaints, on exam she appears somnolent, per medications documented she did not have any pain meds given recently during time of interview and exam. SBP 150s Pos elevated to 5.5, BUN 43, Cr 4.0 from 3.7. 04/07/2025: Patient seen and examined at bedside, she was noted to be agitated and uncomfortable on exam reporting vague abdominal pain and pointing to her left medial thigh. On exam abdomen is soft nontender nondistended no rebound or guarding noted on exam of her patient appears to be in moderate distress secondary to pain. BUN 24 from 43 creatinine 3.0 from 4.0. Kidney function is improving. Etiology of abdominal pain versus left lower extremity pain is unknown she has several clots, management per primary team. Urine output is not documented as patient is wearing briefs however briefs noted to be wet on exam previously making good urine. Pedal pulses are bounding bilaterally. repeat head CT with Low-density acute infarctions now evident in the left frontoparietal left posterior parietal lobes not seen on the April 02, 2025 exam 04/08/2025 patient currently seen in telemetry. She remains agitated and uncomfortable. Labs and medications have been reviewed. Unable to get dialysis catheter yesterday as she was moving a lot and restless. Spoke to the primary team-will attempt with morphine and Ativan prior to PermCath placement. Also noted goals of care to be discussed with family pending. 04/09/2025 patient seen on telemetry patient's partner seen at bedside she appears much more comfortable compared to prior she reports low back pain versus buttock pain, and left calf pain. labs and medications have been reviewed. Radiologist reported that he was uncomfortable placing permanent dialysis catheter plan for temporary dialysis catheter placement today. BUN 30 from 24 creatinine stable at 3.0. She will likely have HD twice weekly. Exam Vital Signs Temp Pulse Resp BP Pulse Ox O2 Del Method O2 Flow Rate 97.4 F 90 18 130/65 95 Room Air 3 04/09/25 08:00 04/09/25 09:35 04/09/25 08:00 04/09/25 09:35 04/09/25 08:00 04/09/25 08:00 04/09/25 00:15 FiO2 40 04/05/25 04:00 Narrative Exam General:awake and alert, in no acute distress reporting moderate buttock/lower back pain oriented x2, comfortable HEENT: Normocephalic, atraumatic, mucous membranes dry, Heart: Regular rate and rhythm, + murmurs. Lungs: Clear to auscultation . Abdomen: Soft, nondistended, non tender, positive bowel sounds. ?No guarding or rebound tenderness. No abdominal pain today noted on exam nor patient report Neurologic: alert and orientedx2 Extremities: Noted chronic wound of 5 x 6 cm in the right lower extremity bandaged with kerlix. Noted tissue pressure injuries on the upper lateral right and left thigh. Also noted infected area in the right toe. Peripheral pulses are 2+ There is demarcated ischemia of left foot of 1st and 5th digit. L knee surgical scar. C/O left calf pain Objective Labs 04/09/25 05:10 04/09/25 05:10 Labs: Laboratory Results - last 24 hr 04/02/25 04/02/25 04/07/25 04:25 11:00 08:17 WBC RBC Hgb Hct MCV MCH MCHC RDW Std Deviation Plt Count Neut % (Auto) Lymph % (Auto) [place] % (Auto) Eos % (Auto) Baso % (Auto) Neut # (Auto) Lymph # (Auto) [place] # (Auto) Eos # (Auto) Baso # (Auto) Immature Gran # (Auto) Absolute Nucleated RBC Immature Gran % Nucleated RBC % Factor V Leiden Mutat NEGATIVE Factor V Leiden Interp See Below Sodium Potassium Chloride Carbon Dioxide Anion Gap BUN Creatinine Estim Creat Clear Calc eGFR BUN/Creatinine Ratio Glucose Calculated Osmolality Calcium Corrected Calcium Phosphorus Magnesium Total Bilirubin AST ALT Alkaline Phosphatase Total Protein 5.2 L Albumin 2.4 L Globulin Albumin/Globulin Ratio Fcayz-3-Bqfvvkxfi 0.6 H Ufqox-2-Lsimhwgjz 1.0 H Ewhp-4-Rurvsrrt 0.2 L Loft-7-Coerwsow 0.3 Gamma Globulins 0.7 L Abnorm Protein Band 1 TNP Abnorm Protein Band 2 TNP Abnorm Protein Band 3 TNP PEP Interpretation SEE NOTE Random Vancomycin Double Strand DNA Ab <1 Coccidioides IgG Ab Negative Misc Test Result See Apr Rpt 04/09/25 05:10 WBC 13.0 H RBC 3.87 L Hgb 11.2 L Hct 35.8 L MCV 93 MCH 28.9 MCHC 31.3 RDW Std Deviation 51.8 H Plt Count 618 H D Neut % (Auto) 66 Lymph % (Auto) 16 [place] % (Auto) 10 Eos % (Auto) 2 Baso % (Auto) 1 Neut # (Auto) 8.6 H Lymph # (Auto) 2.0 [place] # (Auto) 1.3 H Eos # (Auto) 0.3 Baso # (Auto) 0.2 Immature Gran # (Auto) 0.60 H Absolute Nucleated RBC 0.00 Immature Gran % 5 H Nucleated RBC % 0 Factor V Leiden Mutat Factor V Leiden Interp Sodium 139 Potassium 4.0 Chloride 102 Carbon Dioxide 22.3 Anion Gap 15 BUN 30 H Creatinine 3.0 H Estim Creat Clear Calc 19.9 L eGFR 17 L BUN/Creatinine Ratio 10 L Glucose 126 H Calculated Osmolality 285 Calcium 10.2 Corrected Calcium 10.4 H Phosphorus 4.7 Magnesium 1.9 Total Bilirubin 0.6 AST 24 ALT 20 Alkaline Phosphatase 74 Total Protein 7.0 Albumin 3.8 Globulin 3.2 Albumin/Globulin Ratio 1.2 Rrcuz-9-Vmnokibsv Zuqut-3-Wfzfwodfy Rsul-6-Rpxveova Zgji-5-Thnkzdij Gamma Globulins Abnorm Protein Band 1 Abnorm Protein Band 2 Abnorm Protein Band 3 PEP Interpretation Random Vancomycin 14.1 Double Strand DNA Ab Coccidioides IgG Ab Misc Test Result ABG Interpretation ABG results: 03/26/25 03/26/25 03/26/25 11:18 11:44 16:23 ABG pH 7.27 L Cancelled ABG pCO2 40 Cancelled ABG pO2 146 H Cancelled ABG HCO3 18 L Cancelled ABG O2 Saturation 100 H Cancelled ABG Base Excess -8 L Cancelled VBG pH 7.19 L VBG pCO2 48 VBG pO2 37 VBG Base Excess -10 L 03/26/25 03/27/25 03/27/25 18:43 00:17 03:42 ABG pH 7.16 L* D 7.24 L Cancelled ABG pCO2 58 H D 44 D Cancelled ABG pO2 68 L D 80 L Cancelled ABG HCO3 21 19 L Cancelled ABG O2 Saturation 90 L 96 Cancelled ABG Base Excess -9 L -8 L Cancelled VBG pH VBG pCO2 VBG pO2 VBG Base Excess 03/27/25 03/27/25 03/27/25 04:04 07:55 18:48 ABG pH 7.26 L 7.30 L ABG pCO2 43 37 ABG pO2 83 174 H D ABG HCO3 19 L 18 L ABG O2 Saturation 97 101 H ABG Base Excess -7 L -8 L VBG pH 7.21 L 7.31 L VBG pCO2 49 48 VBG pO2 54 52 VBG Base Excess -8 L -2 03/27/25 03/28/25 03/28/25 19:07 04:06 13:37 ABG pH 7.36 7.38 7.41 ABG pCO2 41 45 44 ABG pO2 79 L D 73 L 105 D ABG HCO3 23 27 H 27 H ABG O2 Saturation 97 96 99 H ABG Base Excess -2 1 2 VBG pH VBG pCO2 VBG pO2 VBG Base Excess 03/29/25 03/30/25 03/31/25 04:45 04:50 04:40 ABG pH 7.38 7.42 7.39 ABG pCO2 45 40 41 ABG pO2 72 L D 66 L 63 L ABG HCO3 27 H 26 25 ABG O2 Saturation 98 93 92 ABG Base Excess 1 2 0 VBG pH VBG pCO2 VBG pO2 VBG Base Excess 03/31/25 17:30 ABG pH 7.39 ABG pCO2 36 ABG pO2 80 L ABG HCO3 21 ABG O2 Saturation 96 ABG Base Excess -3 VBG pH VBG pCO2 VBG pO2 VBG Base Excess Quality Measures Quality Measures VTE prophylaxis Assessment & Plan Assessment Current Active Medications: Generic Name Dose Route Start Last Admin Trade Name Alanq PRN Reason Stop Dose Admin Acetaminophen 650 mg 04/01/25 09:12 04/09/25 09:36 Acetaminophen 325 Mg Tablet PO 04/25/25 18:57 650 mg Q4HR PRN Administration Pain Scale 1-3 OR fever >100.4 Albuterol/Ipratropium 3 ml 04/09/25 00:14 Albuterol/Ipratropium (Duoneb) Rt Jennifer 3 Ml Nebu INH 04/26/25 00:59 Q6HRRT PRN short Amlodipine Besylate 10 mg 04/02/25 09:00 04/09/25 09:35 Amlodipine Besylate 5 Mg Tablet PO 05/02/25 08:59 10 mg QDAY CRIS Administration Ascorbic Acid 250 mg 04/03/25 12:00 04/09/25 09:30 Ascorbic Acid 250 Mg Tablet PO 05/03/25 11:59 250 mg BID CRIS Administration Aspirin 81 mg 04/01/25 09:30 04/09/25 09:30 Aspirin Ec 81 Mg Tabec PO 05/01/25 09:29 81 mg QDAY CRIS Administration Atorvastatin Calcium 80 mg 03/26/25 21:00 04/08/25 22:46 Atorvastatin Calcium 20 Mg Tablet PO 04/25/25 20:59 Not Given HS CRIS Carvedilol 6.25 mg 04/01/25 17:30 04/09/25 09:30 Carvedilol 3.125 Mg Tablet PO 05/01/25 17:29 6.25 mg BIDWM CRIS Administration Dextrose 25 ml 03/26/25 20:20 Dextrose 50%-Water Inj 50 Ml Syringe IV 04/25/25 20:19 Q15MIN PRN BG 50-70 responsive npo pt Dextrose 50 ml 03/26/25 20:20 Dextrose 50%-Water Inj 50 Ml Syringe IV 04/25/25 20:19 Q15MIN PRN BG <50 OR BG <70 & pt unresponsive Gabapentin 100 mg 04/06/25 22:00 04/09/25 05:32 Gabapentin 100 Mg Capsule PO 05/06/25 21:59 100 mg TID CRIS Administration Glucagon 1 mg 03/26/25 20:20 Glucagon Inj 1 Mg Vial IM Q15MIN PRN BG <70, and no IV access Heparin Sodium (Porcine) 2,600 unit 03/28/25 19:33 04/06/25 13:13 Heparin Sod Inj 1000 Unit/Ml Vial 10 Ml INDWELLCAT 04/11/25 19:32 2,600 unit X1 PRN Administration DIALYSIS Hydralazine HCl 25 mg 04/01/25 14:00 04/09/25 05:32 Hydralazine Hcl 25 Mg Tablet PO 05/01/25 13:59 25 mg TID CRIS Administration Cefepime HCl 2 gm/ Sodium 50 mls @ 100 mls/hr 04/04/25 12:45 04/08/25 17:30 Chloride IV 04/11/25 12:44 Not Given QDAY@1800 CRIS Vancomycin/Sodium Chloride 100 mls @ 60 mls/hr 04/09/25 10:00 04/09/25 09:36 Vancomycin/Ns 500 Mg Ivpb IV 04/09/25 11:39 60 mls/hr X1 ONE Administration Insulin Degludec 24 unit 04/01/25 21:00 04/08/25 21:18 Insulin Degludec 5 Unit/0.05 Ml (Per 5 Units) SC 05/01/25 20:59 Not Given HS CRIS Insulin Human Lispro 0 unit 04/04/25 21:00 04/09/25 07:44 Insulin Lispro (Admelog) 1 Unit/0.01 Ml Unit SC 05/04/25 20:59 Not Given ACHS [facility] Protocol Labetalol HCl 10 mg 04/01/25 11:16 Labetalol Inj 5 Mg/Ml Vial 20 Ml IVP 05/01/25 11:29 Q4HR PRN if SBP>140 Nicotine 21 mg 04/05/25 10:45 04/09/25 09:30 Nicotine Patch 21 Mg/24 Hr Patch.Td24 TOP 05/05/25 10:44 21 mg QDAY [facility] Administration Pharmacy Consult 1 each 04/04/25 12:30 Vancomycin Pharmacy To Dose 1 Each Each IV 05/04/25 12:29 QDAY PRN PROTOCOL Quetiapine Fumarate 25 mg 04/08/25 21:00 04/08/25 22:46 Quetiapine Fumarate 25 Mg Tablet PO 05/08/25 20:59 Not Given HS CRIS Sevelamer Carbonate 800 mg 04/05/25 08:00 04/09/25 09:31 Sevelamer Carbonate 800 Mg Tablet PO 05/05/25 07:59 800 mg TIDWM CRIS Administration Vitamin B Complex/Vit C/Folic Acid 1 tab 04/03/25 12:00 04/09/25 09:30 Vit B12/Vit C/Fa (Nephrovite) Tablet PO 05/03/25 11:59 1 tab QDAY CRIS Administration Zinc Sulfate 220 mg 04/03/25 12:00 04/09/25 09:29 Zinc Sulfate 220 Mg Capsule PO 04/17/25 11:59 220 mg QDAY CRIS Administration Plan Vashti Ross is a 59-year-old F with a PMH of diabetes, hypertension, asthma, substance use disorder (including opiates, probable methamphetamine, and marijuana) on methadone previously, and a chronic right leg wound brought in by ambulance from her home for altered mental status. Patient was intubated due to low GCS and was admitted to the ICU. echo with tricuspid vegitations and EF 40- 45%, pt with extensive PE and extensive non occlusive DVT of LLE, SYLVIE revealed atrial septal aneurysm, likely source of embolic strokes in the setting of DVT. per cards, holding off on anticoagulation due to concern for hemorrhagic conversion of infarct. s/p IVC filter, found to have borderline nephrotic range proteinuria, CTA AP without new intrabdominal findings, repeat ct head with new infarcts of the L frontoparietal and L posterior parietal lobes.temporary HD catheter placed today. KINJAL on CKD Stage IV - improving Nephrotic range proteinuria Secondary to Ischemic ATN Rhabdomyolysis DDx: multifactorial etiologies including intravascular depletion, diabetic nephropathy, blood pressure derangements, glomerular diseases, sepsis-induced ATN, rhabdomyolysis, cardiorenal syndrome, crystalline nephropathy associated with oxalate, or atheroembolic disease - Admission creatinine 2.8 (baseline: unknown), eGFR 19 - Nephrology consulted for worsening CKD while inpatient - Possible kidney damage from elevated blood glucose 550 on admission, in addition to CK 9752 and U tox positive for amphetamines/methamphetamines - HD: 03/28 CRRT, HD 03/29, 03/30, 03/31, 04/03, 04/04, 04/06 - RFT: (04/04) BUN 41, CR 4.4 and GFR 11 --> (04/05) BUN 37, Cr 2.7 and GFR 14--> 04/06 BUN 43, Cr 4.0--> 04/07 BUN 24, Cr 3.0-->04/09 BUN 30 from 24, creatinine 3.0 Plan: - Temp HD catheter plan to be placed today, will initiate HD Will discuss with family regarding goals of care. Not sure if patient can set an outpatient dialysis unit 3 times a week for 3 hours. - Avoid nephrotoxic agents, avoid excessive fluids and renally dose medications. - Hold any KRISSY/ARB/diuretics as KINJAL causing worsening of CKD Other medical problems: CVA- Subarachnoid hemorrhage and multiple acute infarcts In the setting of History of PE Extensive nonocclusive DVT LLE Secondary to Hypercoagulable state Antiphospholipid syndrome, ruled out - Patient has a hx of miscarriages. Never got coagulation workup in the past - CTA Positive for multiple right lower lobe pulmonary artery and left upper lobe pulmonary artery emboli - Of note, multiple thrombi, lung, spleen, LE, - CThead 04/07 with Low-density acute infarctions now evident in the left frontoparietal left posterior parietal lobes not seen on the April 02, 2025 exa m Plan: - Primary team consulted Dr Krishna for hematology workup - s/p IVC filter in place HF mrEF 40 -45% History of Endocarditis Atrial aneurysm NSTEMI, likely type 2 demand ischemia - echo with EF 40 -45% - TTE with tricuspid vegitations - SYLVIE with Atrial septal aneurysm present and bubble study positive for PFO especially with increased right atrial pressure Splenic infarct with thrombus in upper lobe splenic arteries Acute mesenteric ischemia vs ischemic colitis - 04/03 pt has diffuse abdominal pain out of proportion to exam. - 04/07 pt reports nonfocal abdominal pain, no rebound no guarding.-Resolved T2DM Leukocytosis and AHRF 2/2 PNA - improved Septic shock- resolved, off pressors, Left toes gangreen vs Atheroembolism of left lower extremity toes Left calf pain agitation - managment per primary team Plan discussed with nephrology attending Dr. Nathalie Vallejo MD Internal Medicine PGY-1 Attending Provider Attestation/Addendum Patient seen and examined with resident physician Dr. Vallejo. note reviewed, agree with findings and recommendations. Patient received 2 days of CRRT, 4 conventional dialysis.. at bedside. 04/09/2025 patient currently seen in medical floor. She went to ICU to get dialysis catheter placement by Dr. Rodrigues. Apparently IR declined to do permcatheter due to her mentation. Patient has hypercoagulable // thrombotic disorder. Patient has both arterial infarcts, venous thrombosis cannot give heparin due to subarachnoid hemorrhage. CT brain showed questionable subarachnoid hemorrhage. CT angiography did not show any mesenteric occlusion. postcontrast did receive dialysis. Today she seems to be very restless and is currently on medications. post Vas-Cath patient is on dialysis Patient on dialysis. Very restless-Benadryl given. Hemodialysis for 3 hours, 2K, ultrafiltration 0 L, Epogen 6000, no heparin ordered. Plan of care discussed with the dialysis nurse. Please see dialysis flowsheet for further details. 2 hours, 15 minutes into dialysis patient was more restless that I had to stop dialysis. Will reevaluate tomorrow. Once she is more stable she needs permacath prior to discharge and outpatient dialysis arrangements to be done. Spoke to primary team Overall prognosis guarded. Noted family requesting all aggressive measures including dialysis at this point.
--- NOTE | 2025-04-09 10:58 | PD.EVENT ---
Documentation for date of: 04/09/25 Event Note Event Note: Patient without access for hemodialysis. Failed to receive tunneled dialysis due to inadequate sedation by IR. I have discussed with the patient's mother placement of temporary dialysis catheter in the femoral vein. She is agreeable. Will proceed with conscious sedation to which her mother also consented. We discussed the risks and benefits of the procedure as well as conscious sedation independent of this. See separate form. I personally examined the patient, she remains appropriate for conscious sedation and we will plan for close monitoring in the ICU setting with one-to-one nursing during and post procedure until recovery. End-tidal CO2 monitoring will be used throughout along with supplemental oxygen and all available resources required in case of oversedation and need for intervention. Patient to be transported to ICU for preprocedure and procedure will be done in ICU bed. All equipment available including ultrasound for guidance. Local infiltration with lidocaine will also be used since port adequate anesthesia with fentanyl and Versed for conscious sedation.
[2025-04-09] MEDS: INSULIN LISPRO (AdmeLOG) 1 UNIT/0.01 ML UNIT SC (11:50)
[2025-04-09] MEDS: MIDAZOLAM INJ 1 MG/ML VIAL 2 ML 0.5 MG IVP (12:40)
[2025-04-09] MEDS: LIDOCAINE HCL 1% 20 ML VIAL INFL (12:40)
[2025-04-09] MEDS: fentaNYL CIT INJ 50 mCg/ML AMP 2ML 12.5 MCG IVP (13:00)
[2025-04-09] MEDS: LIDOCAINE HCL 1% 20 ML VIAL 10 ML INFL (13:03)
[2025-04-09 13:52] LABS: Cardiolipin Ab IgA <2.0 APL-U/mL; Cardiolipin Ab IgG <2.0 GPL-U/mL
--- NOTE | 2025-04-09 14:17 | PC.SS ---
SS follow up note; SS contacted patient's , Scottie to inform him that Dr's were recommending SNF. Patient's informed SS that at the time he does not want SNF for patient and would like to have patient discharge home. SS will follow up with Team A to update.
--- NOTE | 2025-04-09 15:50 | PC.NURSE ---
Pt transferred to dialysis. Pt aaox4 and stable.
--- NOTE | 2025-04-09 20:08 | PC.NURSE ---
Code carito called due to patient becoming combative and confused. Patient pulling out lines; therefore restraints were initiated.
--- NOTE | 2025-04-09 20:56 | PC.NURSE ---
Pt refused ACHS blood sugar check. Pt remains aggressive and in restraints at this time.
--- NOTE | 2025-04-09 21:07 | ESPR_ITS ---
Documentation for date of: 04/09/25 Subjective Subjective Interval history: Patient was seen in [facility] today with her mom at bedside, c/o generalized aches and pains and get restless often. Exam - Neurology Vital Signs Temp Pulse Resp BP Pulse Ox O2 Del Method O2 Flow Rate 98.0 F 82 22 H 141/71 H 94 L Room Air 3 04/09/25 20:00 04/09/25 20:00 04/09/25 20:00 04/09/25 20:00 04/09/25 20:00 04/09/25 16:00 04/09/25 00:15 FiO2 40 04/05/25 04:00 Narrative Exam GENERAL APPEARANCE: Well hydrated, well-nourished in no acute distress. HEENT: Normocephalic, atraumatic, extraocular movements intact. Pupils: Equal reacting to light and accommodation NECK: Supple, no JVD or bruits. CARDIOVASULAR: Heart: S1, S2 heard, regular without S3-S4 or murmur no rubs or gallops. LUNGS/CHEST: Clear to auscultation bilaterally. No rails, rhonchi, or wheezing. Normal inspection. ABDOMEN: Soft, nontender, with normal bowel sounds. No pulsatile masses. No rebound, rigidity, or guarding. Normal inspection and palpation. EXTREMITIES: Normal inspection and palpation. No edema, clubbing or cyanosis. SKIN: Warm and dry without rashes. Normal inspection. MUSCULOSKELETAL: No cervical, thoracic, lumbar or midline bony tenderness. Normal inspection. NEURO: Resting under the effect of Dilaudid, exam is limited but no focal neurological deficit noted. No signs of meningeal irritation noted. PSYCHIATRIC: Limited Objective Labs 04/09/25 05:10 04/09/25 05:10 Labs: Laboratory Results - last 24 hr 04/02/25 04/02/25 04/09/25 04:25 11:00 05:10 WBC 13.0 H RBC 3.87 L Hgb 11.2 L Hct 35.8 L MCV 93 MCH 28.9 MCHC 31.3 RDW Std Deviation 51.8 H Plt Count 618 H D Neut % (Auto) 66 Lymph % (Auto) 16 Lares % (Auto) 10 Eos % (Auto) 2 Baso % (Auto) 1 Neut # (Auto) 8.6 H Lymph # (Auto) 2.0 Lares # (Auto) 1.3 H Eos # (Auto) 0.3 Baso # (Auto) 0.2 Immature Gran # (Auto) 0.60 H Absolute Nucleated RBC 0.00 Immature Gran % 5 H Nucleated RBC % 0 Factor V Leiden Mutat NEGATIVE Factor V Leiden Interp See Below Sodium 139 Potassium 4.0 Chloride 102 Carbon Dioxide 22.3 Anion Gap 15 BUN 30 H Creatinine 3.0 H Estim Creat Clear Calc 19.9 L eGFR 17 L BUN/Creatinine Ratio 10 L Glucose 126 H Calculated Osmolality 285 Calcium 10.2 Corrected Calcium 10.4 H Phosphorus 4.7 Magnesium 1.9 Total Bilirubin 0.6 AST 24 ALT 20 Alkaline Phosphatase 74 Total Protein 5.2 L 7.0 Albumin 2.4 L 3.8 Globulin 3.2 Albumin/Globulin Ratio 1.2 Opwwy-4-Cbndedeiz 0.6 H Yxskp-4-Cdtfnigua 1.0 H Svqf-7-Yebzdnab 0.2 L Cewv-2-Vecqaqdy 0.3 Gamma Globulins 0.7 L Abnorm Protein Band 1 TNP Abnorm Protein Band 2 TNP Abnorm Protein Band 3 TNP PEP Interpretation SEE NOTE Random Vancomycin 14.1 Double Strand DNA Ab <1 Misc Test Result See Sep Rpt ABG Interpretation ABG results: 03/26/25 03/26/25 03/26/25 11:18 11:44 16:23 ABG pH 7.27 L Cancelled ABG pCO2 40 Cancelled ABG pO2 146 H Cancelled ABG HCO3 18 L Cancelled ABG O2 Saturation 100 H Cancelled ABG Base Excess -8 L Cancelled VBG pH 7.19 L VBG pCO2 48 VBG pO2 37 VBG Base Excess -10 L 03/26/25 03/27/25 03/27/25 18:43 00:17 03:42 ABG pH 7.16 L* D 7.24 L Cancelled ABG pCO2 58 H D 44 D Cancelled ABG pO2 68 L D 80 L Cancelled ABG HCO3 21 19 L Cancelled ABG O2 Saturation 90 L 96 Cancelled ABG Base Excess -9 L -8 L Cancelled VBG pH VBG pCO2 VBG pO2 VBG Base Excess 03/27/25 03/27/25 03/27/25 04:04 07:55 18:48 ABG pH 7.26 L 7.30 L ABG pCO2 43 37 ABG pO2 83 174 H D ABG HCO3 19 L 18 L ABG O2 Saturation 97 101 H ABG Base Excess -7 L -8 L VBG pH 7.21 L 7.31 L VBG pCO2 49 48 VBG pO2 54 52 VBG Base Excess -8 L -2 03/27/25 03/28/25 03/28/25 19:07 04:06 13:37 ABG pH 7.36 7.38 7.41 ABG pCO2 41 45 44 ABG pO2 79 L D 73 L 105 D ABG HCO3 23 27 H 27 H ABG O2 Saturation 97 96 99 H ABG Base Excess -2 1 2 VBG pH VBG pCO2 VBG pO2 VBG Base Excess 03/29/25 03/30/25 03/31/25 04:45 04:50 04:40 ABG pH 7.38 7.42 7.39 ABG pCO2 45 40 41 ABG pO2 72 L D 66 L 63 L ABG HCO3 27 H 26 25 ABG O2 Saturation 98 93 92 ABG Base Excess 1 2 0 VBG pH VBG pCO2 VBG pO2 VBG Base Excess 03/31/25 17:30 ABG pH 7.39 ABG pCO2 36 ABG pO2 80 L ABG HCO3 21 ABG O2 Saturation 96 ABG Base Excess -3 VBG pH VBG pCO2 VBG pO2 VBG Base Excess Assessment & Plan Assessment and plan (1) Ischemic cerebrovascular accident (CVA): Status: Acute (2) Uncontrolled diabetes mellitus: Status: Chronic (3) Pneumonia: Status: Acute Additional Assessment & Plan Additional Plan: (1) Ischemic cerebrovascular accident (CVA): Status: Acute Assessment and plan: With the recent CTs showing findings suspicious for subarachnoid and intracerebral hemorrhage Continue with aspirin 81 mg and statin Follow-up with the hypercoagulopathy workup Her condition is very unfortunate and family is made aware of the situation with the repeat CT head findings of persistent bleed and not being able to go back on antiocoagulant therapy. (2) Uncontrolled diabetes mellitus: Status: Chronic Assessment and plan: Continue to check fingerstick glucose and follow sliding scale insulin per protocol (3) Pulmonary embolism: Status: Chronic Assessment and plan: She got the IVC filter placement Anticoagulation is difficult to decide from concurrent intracerebral and subarachnoid hemorrhage on the CT head
[2025-04-09] MEDS: OLANZapine INJ 10 MG, Sterile Water 2.1 ML IM (22:15)
[2025-04-10] VITALS (8 sets, daily range): BP systolic 136–152; BP diastolic 63–77; PULSE 72–91; RESP 18–97; TEMP 36.4–36.9; O2SAT 93–97; BMI 34.0; BMI 33.7
[2025-04-10 06:57] LABS: B2-Glycoprotein I Ab IgA <2.0 U/mL; B2-Glycoprotein I Ab IgG <2.0 U/mL; B2-Glycoprotein I Ab IgM <2.0 U/mL; Cardiolipin Ab IgM <2.0 MPL-U/mL; Factor V Leiden Mutation NEGATIVE; Phos.Serine Ab IgG <9 U (< OR = 30); Phos.Serine Ab IgM 12 U (< OR = 30); Prothrombin Fac II Mutation NEGATIVE
--- NOTE | 2025-04-10 07:20 | PC.NURSE ---
Pt very agitated non compliant attempting to pull on dialysis port.MD Rivera aware at bedside. Per MD continue with haldol and katherine soft restrains at this time. IV access attempted, unsuccessful pt not cooperating started spitting.
[2025-04-10] MEDS: HALOPERIDOL LACT INJ 5 MG/ML VIAL IM (07:38)
--- NOTE | 2025-04-10 07:39 | PC.NURSE ---
Attempted to insert iv with philip BEcharge machine operator pt immediately pulled it out, spitted, and attempted to kick us. Pt verbally stating does not want anymore tx, medications or to be poked again to leave her alone.
--- NOTE | 2025-04-10 07:42 | PC.NURSE ---
Attempted to provide education to pt on medication and reccomended tx as well as importance of having iv access d/t her current medical condition. pt stating fuck you bitch i don't care don't poke me again and leave. Made MD Rivera aware of pt refusing all care and medical devices.
--- NOTE | 2025-04-10 08:32 | PD.RESPRO ---
Documentation for date of: 04/10/25 Subjective Subjective Interval history: History of present illness: (patient was intubated during this check writer salesperson's visit so the following narrative was constructed primarily via chart checking) Vashti Ross is a 59-year-old F with a PMH of diabetes, hypertension, asthma, substance use disorder (including opiates, probable methamphetamine, and marijuana) on methadone previously, and a chronic right leg wound brought in by ambulance from her home for altered mental status. Per ED rendition of EMS report, patient was noted to be altered with a respiratory rate of 4 en route to [facility]. A total of 8 mg of Narcan was administered at this time which initially improved mentation. Upon arrival, patient was noted to be somnolent and given an additional 0.4 mg of IV Narcan which made her more active but also more combative. She was also noted to be hypoxic and in respiratory distress upon arrival which led her to be put on BiPAP. During her agitated episode, patient endorsed that she hurt all over and loudly yelled that I gotta get out of here . She was eventually given 2 mg of IV Versed and put on restraints due to her continued agitation. Later, she was taken for an MRI which required removal of her BiPAP but upon removal a subsequent drop in O2 saturation to the low 90s was noted. It was deemed that her airway was not secure and the decision was made to intubate the patient. After the MRI was performed, patient was eventually admitted to the ICU. From family collateral, it was learned that patient's last known well time was 22:30 on 03/26. Patient had been found on the floor by her at 05:00 on 03/27 whereupon he tried to rouse her from her stupor, failed, called patient's sister to notify her about patient's condition, and finally left her to go to work. Patient's sister arrived around 09:00 and found patient still lying on the bathroom whereupon this check writer salesperson assumes she called for an ambulance to bring the patient to the ED. In the ED, vitals showed: BP 107/78 HR 94 RR 35 Temp 101.3 SpO2 98% on 15 L BiPAP ED Course: CBC showed high WBC 13.1 w/ neutrophilic predominance but was otherwise WNL. Coagulation panel showed high PT 13.3. ABG showed acidic pH 7.27, normal pCO2 40, high pO2 146, low HCO3 18. CMP showed low carbon dioxide 18.1, high anion gap 19, high creatinine 2.8, low eGFR 19, very high blood glucose 550, very high lactic acid 4.7, high bilirubin 1.6, high AST 146, high ALT 61, high total creatine kinase 9752, very high troponin I 0.427, high BNP 297, and high procalcitonin 43.23. UA showed 2+ protein, 3+ glucose, 1+ ketones, 3+ blood, high RBC 10, high WBC 112, 3+ calcium oxalate crystals, 4+ bacteria, normal random sodium 34.2, normal random potassium 26, and low random chloride 23.2. UDS was (+) for amphetamines/methamphetamines and marijuana. Serological studies were reactive for hepatitis C antibody. Imaging: Head CT showed findings most consistent with acute right frontal lobe infarcts. Brain MRI showed multiple embolic-type foci of restricted diffusion in the bilateral occipital lobes, bilateral frontal lobes, and bilateral parietal lobes most consistent with acute infarcts. CXR showed bibasilar pneumonia and findings suspicious for mild associated heart failure. Renal US showed small kidneys with right renal cortical thinning as well as mild right and moderate left renal parenchymal scar formation. Carotid doppler study showed 20-40% stenosis of the right internal carotid artery and 0-10% stenosis of the left internal carotid artery. EKG was unremarkable. In the ED, patient was given Duoneb Precedex, doxycycline, etomidate, Lasix, regular insulin, ketamine, Versed, naloxone, 1 L LR bolus, Zemuron, and 1 L NS bolus. Patient was intubated due to low GCS and was admitted to the ICU. Nephrology was consulted due to patient's need for urgent hemodialysis. Neurology is also following. Interval History 04/05/2025: Patient was seen and examined at bedside this AM. No acute events overnight. Patient tolerating diet, adequate urine output and mentation is at baseline. Patient endorses improvement of abdominal pain. Patient underwent hemodialysis on 04/03/2025, RFT shows creatinine 3.7 and GFR 14 at this time. Will evaluate for next hemodialysis session tomorrow. Medical management to continue as per primary team. Renal function trending appropriately at this time. Avoid nephrotoxic agents, avoid excessive fluids and renally dose medications. 04/06/2025: patient seen and examined in HD, she was noted to be mildly agitated overnight (given quetiapine 25 overnight). She has no acute complaints, on exam she appears somnolent, per medications documented she did not have any pain meds given recently during time of interview and exam. SBP 150s Pos elevated to 5.5, BUN 43, Cr 4.0 from 3.7. 04/07/2025: Patient seen and examined at bedside, she was noted to be agitated and uncomfortable on exam reporting vague abdominal pain and pointing to her left medial thigh. On exam abdomen is soft nontender nondistended no rebound or guarding noted on exam of her patient appears to be in moderate distress secondary to pain. BUN 24 from 43 creatinine 3.0 from 4.0. Kidney function is improving. Etiology of abdominal pain versus left lower extremity pain is unknown she has several clots, management per primary team. Urine output is not documented as patient is wearing briefs however briefs noted to be wet on exam previously making good urine. Pedal pulses are bounding bilaterally. repeat head CT with Low-density acute infarctions now evident in the left frontoparietal left posterior parietal lobes not seen on the April 02, 2025 exam 04/08/2025 patient currently seen in telemetry. She remains agitated and uncomfortable. Labs and medications have been reviewed. Unable to get dialysis catheter yesterday as she was moving a lot and restless. Spoke to the primary team-will attempt with morphine and Ativan prior to PermCath placement. Also noted goals of care to be discussed with family pending. 04/09/2025 patient seen on telemetry patient's partner seen at bedside she appears much more comfortable compared to prior she reports low back pain versus buttock pain, and left calf pain. labs and medications have been reviewed. Radiologist reported that he was uncomfortable placing permanent dialysis catheter plan for temporary dialysis catheter placement today. BUN 30 from 24 creatinine stable at 3.0. She will likely have HD twice weekly. 04/10/2025: Patient seen while on telemetry her partner was not at bedside several nurses and HORSE EXERCISER's were at bedside trying to restrain patient she was using foul language and attempting to spit at staff yelling expletives primary team gave of cocktail of morphine 2mg , diphenhydramine 50 mg, olanzapine 1 dose, haloperidol 5 mg, lorazepam. Despite these interventions, the patient continues to be restrained as she has pulled out all of her IV lines. she was unable to complete hd session yesterday 2/2 agitation, nephrology team is concerned that she will pull out the temp HD cath. Exam Vital Signs Temp Pulse Resp BP Pulse Ox O2 Del Method O2 Flow Rate 98.0 F 91 19 152/74 H 93 L Room Air 3 04/10/25 04:00 04/10/25 04:00 04/10/25 04:00 04/10/25 04:00 04/10/25 04:00 04/10/25 04:00 04/09/25 00:15 FiO2 40 04/05/25 04:00 Narrative Exam Exam deferred due to agitation and not on restraints. From visual inspection exam seems grossly unchanged from prior moving all 4 extremities spontaneously patient appears to be confused however unable to completely ascertain mental status given agitation and combative behavior towards staff. Objective Labs 04/14/25 08:27 04/14/25 04:45 Labs: Laboratory Results - last 24 hr 04/01/25 04:44 Factor V Leiden Mutat NEGATIVE Factor V Leiden Interp See Below Beta-2 GPI IgG Ab <2.0 Beta-2 GPI IgM Ab <2.0 Beta-2-GPI IgA Ab <2.0 Phosphatidylserine IgM 12 Anti-Phospholipid Intrp SEE NOTE Anti-Cardiolipin IgG Ab <2.0 Anti-Cardiolipin IgA Ab <2.0 Anti-Cardiolipin IgM Ab <2.0 Phospholip A2 Rec IgG <9 Factor II Mutation NEGATIVE Ref Test Interpretation See Below ABG Interpretation ABG results: 03/26/25 03/26/25 03/26/25 11:18 11:44 16:23 ABG pH 7.27 L Cancelled ABG pCO2 40 Cancelled ABG pO2 146 H Cancelled ABG HCO3 18 L Cancelled ABG O2 Saturation 100 H Cancelled ABG Base Excess -8 L Cancelled VBG pH 7.19 L VBG pCO2 48 VBG pO2 37 VBG Base Excess -10 L 03/26/25 03/27/25 03/27/25 18:43 00:17 03:42 ABG pH 7.16 L* D 7.24 L Cancelled ABG pCO2 58 H D 44 D Cancelled ABG pO2 68 L D 80 L Cancelled ABG HCO3 21 19 L Cancelled ABG O2 Saturation 90 L 96 Cancelled ABG Base Excess -9 L -8 L Cancelled VBG pH VBG pCO2 VBG pO2 VBG Base Excess 03/27/25 03/27/25 03/27/25 04:04 07:55 18:48 ABG pH 7.26 L 7.30 L ABG pCO2 43 37 ABG pO2 83 174 H D ABG HCO3 19 L 18 L ABG O2 Saturation 97 101 H ABG Base Excess -7 L -8 L VBG pH 7.21 L 7.31 L VBG pCO2 49 48 VBG pO2 54 52 VBG Base Excess -8 L -2 03/27/25 03/28/25 03/28/25 19:07 04:06 13:37 ABG pH 7.36 7.38 7.41 ABG pCO2 41 45 44 ABG pO2 79 L D 73 L 105 D ABG HCO3 23 27 H 27 H ABG O2 Saturation 97 96 99 H ABG Base Excess -2 1 2 VBG pH VBG pCO2 VBG pO2 VBG Base Excess 03/29/25 03/30/25 03/31/25 04:45 04:50 04:40 ABG pH 7.38 7.42 7.39 ABG pCO2 45 40 41 ABG pO2 72 L D 66 L 63 L ABG HCO3 27 H 26 25 ABG O2 Saturation 98 93 92 ABG Base Excess 1 2 0 VBG pH VBG pCO2 VBG pO2 VBG Base Excess 03/31/25 17:30 ABG pH 7.39 ABG pCO2 36 ABG pO2 80 L ABG HCO3 21 ABG O2 Saturation 96 ABG Base Excess -3 VBG pH VBG pCO2 VBG pO2 VBG Base Excess Quality Measures Quality Measures VTE prophylaxis Assessment & Plan Assessment Current Active Medications: Generic Name Dose Route Start Last Admin Trade Name Freq PRN Reason Stop Dose Admin Acetaminophen 650 mg 04/01/25 09:12 04/09/25 09:36 Acetaminophen 325 Mg Tablet PO 04/25/25 18:57 650 mg Q4HR PRN Administration Pain Scale 1-3 OR fever >100.4 Albuterol/Ipratropium 3 ml 04/09/25 00:14 Albuterol/Ipratropium (Duoneb) Rt Jennifer 3 Ml Nebu INH 04/26/25 00:59 Q6HRRT PRN short Amlodipine Besylate 10 mg 04/02/25 09:00 04/10/25 07:59 Amlodipine Besylate 5 Mg Tablet PO 05/02/25 08:59 Not Given QDAY [facility] Ascorbic Acid 250 mg 04/03/25 12:00 04/10/25 07:59 Ascorbic Acid 250 Mg Tablet PO 05/03/25 11:59 Not Given BID CRIS Aspirin 81 mg 04/01/25 09:30 04/10/25 07:59 Aspirin Ec 81 Mg Tabec PO 05/01/25 09:29 Not Given QDAY [facility] Atorvastatin Calcium 80 mg 03/26/25 21:00 04/09/25 20:57 Atorvastatin Calcium 20 Mg Tablet PO 04/25/25 20:59 Not Given HS [facility] Carvedilol 6.25 mg 04/01/25 17:30 04/10/25 07:59 Carvedilol 3.125 Mg Tablet PO 05/01/25 17:29 Not Given BIDWM CRIS Dextrose 25 ml 03/26/25 20:20 Dextrose 50%-Water Inj 50 Ml Syringe IV 04/25/25 20:19 Q15MIN PRN BG 50-70 responsive npo pt Dextrose 50 ml 03/26/25 20:20 Dextrose 50%-Water Inj 50 Ml Syringe IV 04/25/25 20:19 Q15MIN PRN BG <50 OR BG <70 & pt unresponsive Gabapentin 100 mg 04/06/25 22:00 04/10/25 05:46 Gabapentin 100 Mg Capsule PO 05/06/25 21:59 Not Given TID [facility] Glucagon 1 mg 03/26/25 20:20 Glucagon Inj 1 Mg Vial IM Q15MIN PRN BG <70, and no IV access Heparin Sodium (Porcine) 3,000 unit 04/09/25 17:10 Heparin Sod Inj 1000 Unit/Ml Vial 10 Ml INDWELLCAT 04/23/25 17:09 X1 PRN DIALYSIS Hydralazine HCl 25 mg 04/01/25 14:00 04/10/25 05:46 Hydralazine Hcl 25 Mg Tablet PO 05/01/25 13:59 Not Given TID [facility] Cefepime HCl 2 gm/ Sodium 50 mls @ 100 mls/hr 04/04/25 12:45 04/09/25 18:28 Chloride IV 04/11/25 12:44 Not Given QDAY@1800 [facility] Insulin Degludec 24 unit 04/01/25 21:00 04/09/25 20:57 Insulin Degludec 5 Unit/0.05 Ml (Per 5 Units) SC 05/01/25 20:59 Not Given HS [facility] Insulin Human Lispro 0 unit 04/04/25 21:00 04/10/25 07:53 Insulin Lispro (Admelog) 1 Unit/0.01 Ml Unit SC 05/04/25 20:59 Not Given ACHS [facility] Protocol Labetalol HCl 10 mg 04/01/25 11:16 Labetalol Inj 5 Mg/Ml Vial 20 Ml IVP 05/01/25 11:29 Q4HR PRN if SBP>140 Nicotine 21 mg 04/05/25 10:45 04/10/25 07:59 Nicotine Patch 21 Mg/24 Hr Patch.Td24 TOP 05/05/25 10:44 Not Given QDAY [facility] Pharmacy Consult 1 each 04/04/25 12:30 Vancomycin Pharmacy To Dose 1 Each Each IV 05/04/25 12:29 QDAY PRN PROTOCOL Quetiapine Fumarate 25 mg 04/08/25 21:00 04/09/25 20:58 Quetiapine Fumarate 25 Mg Tablet PO 05/08/25 20:59 Not Given HS [facility] Sevelamer Carbonate 800 mg 04/05/25 08:00 04/10/25 07:59 Sevelamer Carbonate 800 Mg Tablet PO 05/05/25 07:59 Not Given TIDWM [facility] Vitamin B Complex/Vit C/Folic Acid 1 tab 04/03/25 12:00 04/10/25 07:59 Vit B12/Vit C/Fa (Nephrovite) Tablet PO 05/03/25 11:59 Not Given QDAY [facility] Zinc Sulfate 220 mg 04/03/25 12:00 04/10/25 07:59 Zinc Sulfate 220 Mg Capsule PO 04/17/25 11:59 Not Given QDAY [facility] Plan Vashti Ross is a 59-year-old F with a PMH of diabetes, hypertension, asthma, substance use disorder (including opiates, probable methamphetamine, and marijuana) on methadone previously, and a chronic right leg wound brought in by ambulance from her home for altered mental status. Patient was intubated due to low GCS and was admitted to the ICU. echo with tricuspid vegitations and EF 40-45%, pt with extensive PE and extensive non occlusive DVT of LLE, SYLVIE revealed atrial septal aneurysm, likely source of embolic strokes in the setting of DVT. per cards, holding off on anticoagulation due to concern for hemorrhagic conversion of infarct. s/p IVC filter, found to have nephrotic range proteinuria, repeat ct head with new infarcts of the L frontoparietal and L posterior parietal lobes.temporary HD catheter placed by dr. elizondo, pt has waxing and waning periods of behavioral changes suspected to be 2/2 frontoarietal infarcts. HD yesterday was cut short. KINJAL on CKD Stage IV - improving Nephrotic range proteinuria Secondary to Ischemic ATN Rhabdomyolysis DDx: multifactorial etiologies including intravascular depletion, diabetic nephropathy, blood pressure derangements, glomerular diseases, sepsis-induced ATN, rhabdomyolysis, cardiorenal syndrome, crystalline nephropathy associated with oxalate, or atheroembolic disease - Admission creatinine 2.8 (baseline: unknown), eGFR 19 - Nephrology consulted for worsening CKD while inpatient - Possible kidney damage from elevated blood glucose 550 on admission, in addition to CK 9752 and U tox positive for amphetamines/methamphetamines - HD: 03/28 CRRT, HD 03/29, 03/30, 03/31, 04/03, 04/04, 04/06, 04/09 labs unable to be drawn 2/2 agitation and no IV access - RFT:04/07 BUN 24, Cr 3.0-->04/09 BUN 30 from 24, creatinine 3.0, Plan: - Temp HD catheter placed: (pt has high risk of potentially pulling out catheter in aggitated state. - given aggressive agitation towards staff, unlikely that she will tolerate HD outpatient. plan to have additional conversation with family about goals of care. - Avoid nephrotoxic agents, avoid excessive fluids and renally dose medications. - Hold any KRISSY/ARB/diuretics as KINJAL causing worsening of CKD Other medical problems: Agitation and combative behavior query 2/2 frontoparietal infarcts unable to get labs pt at risk for pulling out hd tem cath CVA- Subarachnoid hemorrhage and multiple acute infarcts In the setting of History of PE Extensive nonocclusive DVT LLE Secondary to Hypercoagulable state Antiphospholipid syndrome, ruled out - Patient has a hx of miscarriages. Never got coagulation workup in the past - CTA Positive for multiple right lower lobe pulmonary artery and left upper lobe pulmonary artery emboli - Of note, multiple thrombi, lung, spleen, LE, - CThead 04/07 with Low-density acute infarctions now evident in the left frontoparietal left posterior parietal lobes not seen on the April 02, 2025 exam Plan: - Primary team consulted Dr Krishna for hematology workup - s/p IVC filter in place HF mrEF 40 -45% History of Endocarditis Atrial aneurysm NSTEMI, likely type 2 demand ischemia - echo with EF 40 -45% - TTE with tricuspid vegitations - SYLVIE with Atrial septal aneurysm present and bubble study positive for PFO especially with increased right atrial pressure Splenic infarct with thrombus in upper lobe splenic arteries Acute mesenteric ischemia vs ischemic colitis - 04/03 pt has diffuse abdominal pain out of proportion to exam. - 04/07 pt reports nonfocal abdominal pain, no rebound no guarding.-Resolved T2DM Leukocytosis and AHRF 2/2 PNA - improved Septic shock- resolved, off pressors, Left toes gangreen vs Atheroembolism of left lower extremity toes - managment per primary team Plan discussed with nephrology attending Dr. Nathalie Vallejo MD Internal Medicine PGY-1 Attending Provider Attestation/Addendum Patient seen and examined with resident physician Dr. Vallejo. note reviewed, agree with findings and recommendations. Patient received 2 days of CRRT, 5 conventional dialysis.. 04/10/2025 patient currently seen in medical floor. She went to ICU to get dialysis catheter placement by Dr. Elizondo. Apparently IR declined to do permcatheter due to her mentation. Patient has hypercoagulable // thrombotic disorder. Patient has both arterial infarcts, venous thrombosis cannot give heparin due to subarachnoid hemorrhage. CT brain showed questionable subarachnoid hemorrhage. CT angiography did not show any mesenteric occlusion. postcontrast did receive dialysis. Today she seems to be very restless and is currently on medications. post Vas-Cath patient did receive short run of dialysis and had to be taken out because of extreme restless symptoms. Noted family requesting all aggressive measures. Hold dialysis today.
[2025-04-10] MEDS: MORPHINE SULF INJ 10 MG/ML VIAL 2 MG IVP (09:54)
--- NOTE | 2025-04-10 10:20 | CHAP ---
Patient expressed gratitude for visit and Prayer.
--- NOTE | 2025-04-10 14:31 | PC.NURSE ---
Pt laying in bed comfortable, sleepy. Provided education to pt and significant other in regards to medication scheduled to give at this time per pt and significant other will prefer to hold of on medications to get rest and not be bothered at this time.
--- NOTE | 2025-04-10 15:29 | ESPR_ITS ---
<Statement entered by Hayley Dubois MD - 04/21/25 08:45> I reviewed above note and agree with findings and plans. I have also personally examined the patient with medicine team and went over assessment and plan with medical team including internet marketing director and resident physician. <Statement entered by Mele Rivera MD - 04/10/25 15:42> Senior Resident Attestation: I supervised/discussed management plan with internet marketing director physician Dr. Franklin, and was involved in the care of this patient. I personally saw and examined the patient and discussed the assessment and plan with the entire medicine team, including my attending. I agree with the assessment and plan as documented. Patient remains severely agitated and combative, was given diphenhydramine, lorazepam and haloperidol. Continues to be restrained as she pulled all her IV lines. Plan is to proceed with kidney biopsy and IR guided tunneled dialysis catheter placement once IR is available. Patient's care was discussed with attending physician, Dr. Dubois. Mele Rivera MD PGY-3. Documentation for date of: 04/10/25 Subjective Subjective Interval history: Patient was seen at the bedside this morning, where she was screaming help and expressing severe pain in her legs. She remains highly agitated and combative and was administered morphine 2mg , diphenhydramine 50 mg, olanzapine 1 dose, haloperidol 5 mg. Despite these interventions, the patient continues to be restrained as she has pulled out all of her IV lines. Due to her agitation, the patient was unable to complete dialysis yesterday. Exam Vital Signs Temp Pulse Resp BP Pulse Ox O2 Del Method O2 Flow Rate 97.5 F 77 20 139/63 H 96 Room Air 3 04/10/25 12:04/10/25 12:04/10/25 12:04/10/25 12:04/10/25 12:04/10/25 12:00 04/09/25 00:15 FiO2 40 04/05/25 04:00 Narrative Exam General: A/O x2. Severe agitated. HEENT: Normocephalic, atraumatic, mucous membranes moist. Heart: Regular rate and rhythm, no murmurs. Lungs: Clear to auscultation with no wheezing or crackles. Abdomen: Soft, mildly distended, mild discomfort to palpation throughout. No guarding or rebound tenderness. Neurologic: Bilateral pupils are equal and reacting to light. Able to move all extremities. Muscle strength 4/5 throughout. Extremities: Noted surgical scar on the left knee likely from TKR. Noted chronic wound of 5 x 6 cm in the right lower extremity. Noted tissue pressure injuries on the upper lateral right and left thigh. Also noted infected area in the right toe and left 1st and 5th toes. Skin: No rash or ecchymoses. Objective Labs 04/09/25 05:10 04/09/25 05:10 Labs: Laboratory Results - last 24 hr 04/01/25 04:44 Factor V Leiden Mutat NEGATIVE Factor V Leiden Interp See Below Beta-2 GPI IgG Ab <2.0 Beta-2 GPI IgM Ab <2.0 Beta-2-GPI IgA Ab <2.0 Phosphatidylserine IgM 12 Anti-Phospholipid Intrp SEE NOTE Anti-Cardiolipin IgG Ab <2.0 Anti-Cardiolipin IgA Ab <2.0 Anti-Cardiolipin IgM Ab <2.0 Phospholip A2 Rec IgG <9 Factor II Mutation NEGATIVE Ref Test Interpretation See Below ABG Interpretation ABG results: 03/26/25 03/26/25 03/26/25 11:18 11:44 16:23 ABG pH 7.27 L Cancelled ABG pCO2 40 Cancelled ABG pO2 146 H Cancelled ABG HCO3 18 L Cancelled ABG O2 Saturation 100 H Cancelled ABG Base Excess -8 L Cancelled VBG pH 7.19 L VBG pCO2 48 VBG pO2 37 VBG Base Excess -10 L 03/26/25 03/27/25 03/27/25 18:43 00:17 03:42 ABG pH 7.16 L* D 7.24 L Cancelled ABG pCO2 58 H D 44 D Cancelled ABG pO2 68 L D 80 L Cancelled ABG HCO3 21 19 L Cancelled ABG O2 Saturation 90 L 96 Cancelled ABG Base Excess -9 L -8 L Cancelled VBG pH VBG pCO2 VBG pO2 VBG Base Excess 03/27/25 03/27/25 03/27/25 04:04 07:55 18:48 ABG pH 7.26 L 7.30 L ABG pCO2 43 37 ABG pO2 83 174 H D ABG HCO3 19 L 18 L ABG O2 Saturation 97 101 H ABG Base Excess -7 L -8 L VBG pH 7.21 L 7.31 L VBG pCO2 49 48 VBG pO2 54 52 VBG Base Excess -8 L -2 03/27/25 03/28/25 03/28/25 19:07 04:06 13:37 ABG pH 7.36 7.38 7.41 ABG pCO2 41 45 44 ABG pO2 79 L D 73 L 105 D ABG HCO3 23 27 H 27 H ABG O2 Saturation 97 96 99 H ABG Base Excess -2 1 2 VBG pH VBG pCO2 VBG pO2 VBG Base Excess 03/29/25 03/30/25 03/31/25 04:45 04:50 04:40 ABG pH 7.38 7.42 7.39 ABG pCO2 45 40 41 ABG pO2 72 L D 66 L 63 L ABG HCO3 27 H 26 25 ABG O2 Saturation 98 93 92 ABG Base Excess 1 2 0 VBG pH VBG pCO2 VBG pO2 VBG Base Excess 03/31/25 17:30 ABG pH 7.39 ABG pCO2 36 ABG pO2 80 L ABG HCO3 21 ABG O2 Saturation 96 ABG Base Excess -3 VBG pH VBG pCO2 VBG pO2 VBG Base Excess Quality Measures Quality Measures VTE prophylaxis Assessment & Plan Assessment Current Active Medications: Generic Name Dose Route Start Last Admin Trade Name Freq PRN Reason Stop Dose Admin Acetaminophen 650 mg 04/01/25 09:12 04/09/25 09:36 Acetaminophen 325 Mg Tablet PO 04/25/25 18:57 650 mg Q4HR PRN Administration Pain Scale 1-3 OR fever >100.4 Albuterol/Ipratropium 3 ml 04/09/25 00:14 Albuterol/Ipratropium (Duoneb) Rt Jennifer 3 Ml Nebu INH 04/26/25 00:59 Q6HRRT PRN short Amlodipine Besylate 10 mg 04/02/25 09:00 04/10/25 07:59 Amlodipine Besylate 5 Mg Tablet PO 05/02/25 08:59 Not Given QDAY CRIS Ascorbic Acid 250 mg 04/03/25 12:00 04/10/25 07:59 Ascorbic Acid 250 Mg Tablet PO 05/03/25 11:59 Not Given BID CRIS Aspirin 81 mg 04/01/25 09:30 04/10/25 07:59 Aspirin Ec 81 Mg Tabec PO 05/01/25 09:29 Not Given QDAY ON LICENSE OF [facility] Atorvastatin Calcium 80 mg 03/26/25 21:00 04/09/25 20:57 Atorvastatin Calcium 20 Mg Tablet PO 04/25/25 20:59 Not Given HS ON LICENSE OF [facility] Carvedilol 6.25 mg 04/01/25 17:30 04/10/25 07:59 Carvedilol 3.125 Mg Tablet PO 05/01/25 17:29 Not Given BIDWM CRIS Dextrose 25 ml 03/26/25 20:20 Dextrose 50%-Water Inj 50 Ml Syringe IV 04/25/25 20:19 Q15MIN PRN BG 50-70 responsive npo pt Dextrose 50 ml 03/26/25 20:20 Dextrose 50%-Water Inj 50 Ml Syringe IV 04/25/25 20:19 Q15MIN PRN BG <50 OR BG <70 & pt unresponsive Gabapentin 100 mg 04/06/25 22:00 04/10/25 05:46 Gabapentin 100 Mg Capsule PO 05/06/25 21:59 Not Given TID ON LICENSE OF [facility] Glucagon 1 mg 03/26/25 20:20 Glucagon Inj 1 Mg Vial IM Q15MIN PRN BG <70, and no IV access Heparin Sodium (Porcine) 3,000 unit 04/09/25 17:10 Heparin Sod Inj 1000 Unit/Ml Vial 10 Ml INDWELLCAT 04/23/25 17:09 X1 PRN DIALYSIS Hydralazine HCl 25 mg 04/01/25 14:00 04/10/25 05:46 Hydralazine Hcl 25 Mg Tablet PO 05/01/25 13:59 Not Given TID ON LICENSE OF [facility] Cefepime HCl 2 gm/ Sodium 50 mls @ 100 mls/hr 04/04/25 12:45 04/09/25 18:28 Chloride IV 04/11/25 12:44 Not Given QDAY@1800 ON LICENSE OF [facility] Insulin Degludec 24 unit 04/01/25 21:00 04/09/25 20:57 Insulin Degludec 5 Unit/0.05 Ml (Per 5 Units) SC 05/01/25 20:59 Not Given HS ON LICENSE OF [facility] Insulin Human Lispro 0 unit 04/04/25 21:00 04/10/25 07:53 Insulin Lispro (Admelog) 1 Unit/0.01 Ml Unit SC 05/04/25 20:59 Not Given ACHS ON LICENSE OF [facility] Protocol Labetalol HCl 10 mg 04/01/25 11:16 Labetalol Inj 5 Mg/Ml Vial 20 Ml IVP 05/01/25 11:29 Q4HR PRN if SBP>140 Nicotine 21 mg 04/05/25 10:45 04/10/25 07:59 Nicotine Patch 21 Mg/24 Hr Patch.Td24 TOP 05/05/25 10:44 Not Given QDAY ON LICENSE OF [facility] Pharmacy Consult 1 each 04/04/25 12:30 Vancomycin Pharmacy To Dose 1 Each Each IV 05/04/25 12:29 QDAY PRN PROTOCOL Quetiapine Fumarate 25 mg 04/08/25 21:00 04/09/25 20:58 Quetiapine Fumarate 25 Mg Tablet PO 05/08/25 20:59 Not Given HS ON LICENSE OF [facility] Sevelamer Carbonate 800 mg 04/05/25 08:00 04/10/25 07:59 Sevelamer Carbonate 800 Mg Tablet PO 05/05/25 07:59 Not Given TIDWM ON LICENSE OF [facility] Vitamin B Complex/Vit C/Folic Acid 1 tab 04/03/25 12:00 04/10/25 07:59 Vit B12/Vit C/Fa (Nephrovite) Tablet PO 05/03/25 11:59 Not Given QDAY ON LICENSE OF [facility] Zinc Sulfate 220 mg 04/03/25 12:00 04/10/25 07:59 Zinc Sulfate 220 Mg Capsule PO 04/17/25 11:59 Not Given QDAY ON LICENSE OF [facility] Plan 59F with PMH of DM, HTN, asthma, drug use disorder, and a chronic right leg wound was brought to the ED after being found unresponsive at home where she was found to have acute encephalopathy with low GCS requiring intubation and ICU admission for ventilator support, pressor support for likely septic shock, and CRRT. Patient found to have multi embolic disease involving multiple systems including brain and left distal extremity, acute and failure with the cause likely renal emboli. #Acute encephalopathy, multifactorial, related to metabolic derangement, substance use, and embolic CVA (Resolving) #Acute Multiple embolic type foci occipital lobes, bilateral frontal and bilateral parietal lobe #Atrial septal aneurysm #PFO #Subarachnoid hemorrhage #Endocarditis - r/o #Tricuspid valve vegetation - r/o -Patient came in with altered sensorium and head CT at the time showed multiple bilateral infarcts, likely embolic. Patient was weaned off sedation and extubated on 03/31/2025, tolerated well. Currently, patient is improving and is alert and oriented. Patient has extensive DVT in the left lower extremity also noted to have pulmonary embolism, patient might be having embolism through PFO and reaching the systemic circulation. -TTE showed normal size left ventricle with mild apical and global hypokinesis LVEF 40-45%. Evidence of Tricuspid valve vegetation suggestive of endocarditis. The RV is normal in size. The right ventricular systolic function is mildly decreased. Aortic valve sclerosis thickened wih mild aortic regurgitation. Mitral valve thickening with mild mitral regurgitation. -SYLVIE (03/30/25) confirmed no vegetations. Noted to have atrial aneurysm bulging into left atrium, bubble study done showed PFO -EEG from 04/02/25 shows diffuse slowing suggestive of a diffuse encephalopathy of vascular origin. -Per neurology team, given PE and small PFO, PE could be the cause of embolism vs endocardititis but less likely as negative SYLVIE for vegation. Although leukocytosis noted, less likely secondary to endocarditis in origin and more likely secondary to ischemia vs less likely increased coagulopathy as no previous history of DVTs. -Hematology Dr. Krishna was consulted who agreed with the current plan. -MR venogram negative for any thrombus -New blood cx negative -1/2 samples positive for lupus anticoagulant. Weakly positive for hexagonal phase confirm test. Positive EFFIE. Pending the rest of hypercoagulopathy tests. -Repeat brain CT (04/07/25) shows slightly less prominent subtle subarachinoid hemorrhage in the frontoparietal convexities compared to the previous scan. Also, low-density acute infarctions are now evident in the left frontoparietal, left posterior parietal lobbes that were not seen in the previous scan. - 04/09 Positive cryoprecipitate but low < 1%. Plan: - Discussed with patient and their family members regarding the current plan of starting anticoagulation medication if cleared by neurology team. Explained to patient and their family members regarding risks and benefits of starting anticoagulation. Explained to them that if we don't start anticoagulation her PE and DVT may have negative consequences (ie. worsening of her current condition) and she may be at risk for more thromboses and on the other hand, if we do start these medications she may be at risk for new brain hemorrhage, worsening of current hemorrhage or bleedings else where in her body. Patient and family understands the risks and benefits and agree with the plan of starting anticoagulation if prompted by the neurology team. At this moment, the neurology team is advising against starting anticoagulation medications given new CT findings. - Patient's declined hospice care. Will reevaluate at a later time. - Will continue atorvastatin and Aspirin for now - Cannot start on heparin drip as patient noted to have subtle hemorrhage on repeat CT head done on 04/07/2025. Repeat CT head from 04/02 showed stable multiple areas of subarachnoid hemorrhage compared to 04/01 - IVC filter placement is done on 03/31/2025 to prevent further embolic strokes through PFO from DVT - No need of urgent PFO closure as per Dr. Nayak. - PT and speech therapy - Pending hypercoaugulable workup due to suspected Antiphospholipid syndrome due to DVT and other infarcts #Septic shock (resolved) #Hospital-Acquired PNA (Improved) # UTI (Improved) At the time of admission, patient was noted to have bilateral lower extremity edema and bilateral diffuse inspiratory crackles -possible heart failure in the setting of methamphetamine abuse, diabetes, hypertension. Also noted to have temperature of 101.8 ?F at the time of admission, likely due to some ongoing infection. Fits into 2/3 qsofa criteria. Noted to have GCS less than 15 and respiratory rate 35/min. Suspecting sepsis worsening the underlying heart failure resulting in suspected possible combined septic and cardiogenic shock. DDx: Combined cardiogenic and septic shock Patient was started on Levophed and weaned off completely on 03/30/2025 WBC on admission 13.1, procalcitonin 43.23. UA showed turbid urine with 2+ proteinuria, 3+ glucosuria, 112 WBC, 4+ bacteria suggestive of UTI. Urine culture positive for E.coli, blood cultures negative. TTE showed vegetations of the trisupid valve concerning for endocarditis. WBC now down trending to 13.0 from 21.6 3 days ago. Patient remains afebrile. Initially patient was started on vancomycin and Zosyn [03/27-03/30], discontinued Vanco and Zosyn, Started on Rocephin (03/30-04/04) Blood cx and sputum culture negative Plan: - Continue Vancomycin and cefepime 2g to cover for HAP (04/04/25-) - Will continue to monitor vitals # Acute hypoxic respiratory failure, resolving # Respiratory acidosis (resolved) Per patient family, patient does not have any previous history of respiratory problems and is not using any inhalers. Not a smoker. ABG at the time of admission showed pH 7.16, pCO2 58, pO2 68, FiO2 100%. Repeat ABG done on 03/27/2024 showed pH 7.3, pCO2 37, bicarb 18. Repeat ABGs done after 03/28/2025 is within normal limits. CTA chest Positive for multiple right lower pulmonary artery filling defects. Positive for left upper lobe pulmonary artery filling defects. No emboli in the main pulmonary artery segments. Pneumonia versus infarction in both lower lung zones. CXR shows bibasilar pneumonia DDx: Sepsis, acute encephalopathy, pulmonary edema, pulmonary embolism, combined. Patient was intubated, sedated and placed on mechanical ventilator on 03/26 and extubated on 03/31. Though patient had pulmonary embolism, patient oxygen needs is coming down. CTA abd&pelvis on 04/04 still reveals pneumonia at the left base Plan: - Continue ABx as above - Will continue oxygen as needed for now. #KINJAL (Improving) #Acute renal failure likely 2/2 septic shock vs. renal emboli vs. rhabdomyolysis Patient does not follow-up any primary care doctor and unsure of her baseline kidney functions. Patient noted to have decreased urine output and oliguric since the time of admission. Creatinine at the time of admission is 2.8 --> 03/30, 2.4 --> 03/31, 3.1 --> 04/01, 4.9 --> 04/03, 5.5--> 04/07 3.0-->04/09, 3.0 DDx: Prerenal versus ATN in the setting of shock versus possible cardiorenal syndrome versus CKD in the setting of diabetes mellitus and hypertension versus embolic versus rhabdomyolysis Patient received HD yesterday; however, given persistant abnormal electrolyte, patient will have another HD today. Negative blood cx x2 Plan: - Patient did not tolerate permanent cath placement (04/07/25). Recommended by radiology team to perform this under anesthesia; however, given current active medical problems we predict poor outcomes if patient undergoes anesthesia at this time. Discussed the case with the nephrology team, as they recommend permanent catheter placement for dialysis that patient will need for upon discharge. - IR refused repeating permanent catheter placement given patient's inadequate sedation in the last attempt as she was not cooperative. - Temporary HD cath was placed by ICU team (04/09/25). Patient will need a permanent cath placement prior to discharge, as this can be done on Sunday by IR here at [place] or transfer to [facility]. - IV albumin prn - Held IV Bumex - Will continue to monitor urine output - Monitor renal panel - Avoid nephrotoxic agents (aminoglycosides, NSAIDs, radiographic contrast) - Adjust medication dosing based on patient's impaired renal function - Hold any KRISSY/ARB/diuretics - Receiving Room Clerk, Dr. Zelaya is consulted and patient was started on CRRT through dialysis catheter placement in the right IJV on 03/27 - Received HD on 03/29, 03/30, 03/31, 04/03, 04/04 - Hold getting CT guided renal biopsy, to assess proteinuria - Started Sevelamer 800 mg TID with meals for hyperphosphatemia despite HD yesterday - Plan to do kidney biopsy on Saturday 04/14. Recommended by Dr. Rodrigues. # HFrEF, EF 40 to 45% #Substance Use Disorder Unsure whether patient is regular methamphetamine user, as family members is not aware of the use. Patient also have severe uncontrolled diabetes mellitus, which could also contribute to the ischemic heart disease and CHF. Plan: - Patient should be started on GDMT but in the setting of ongoing acute kidney injury and recovering shock, will hold GDMT for now - Removed fluid through CRRT/HD #NSTEMI type type I (embolic IN) vs. Type 2 (demand ischemia 2/2 shock) In the setting of demand ischemia. Troponin at the time of admission is 0.427, peaked at 20.920 and later down trended. EKG did not show any ST-T wave changes Plan: - Will continue telemetry monitoring - Pile Fabric Knitter, Dr. Nayak is consulted and will follow the recommendations # Pulmonary embolism # DVT Patient was noted to have mismatch between end-tidal CO2 and arterial CO2, also noted to have increased oxygen requirements on the ventilator for which CTA chest was ordered on 03/28/2025 CTA chest was positive for multiple right lower pulmonary artery filling defects. Positive for left upper lobe pulmonary artery filling defects. No emboli in the main pulmonary artery segments. Pneumonia versus infarction in both lower lung zones. Echocardiogram did not show any RV strain, though patient noted to have elevated troponin with peak level at 20.920, later down trended. EKG did not show any signs suggestive of pulmonary embolism. Venous doppler of LLE showed extensive chronic nonocclusive DVT involving the common femoral left superficial femoral, popliteal, peroneal, posterior tibial and greater saphenous veins. Tubular structures in the right popliteal fossa 6.0 cm in left popliteal fossa Plan: - Patient cannot be anticoagulated as of now as patient had hemorrhagic infarcts in the brain and is high risk for bleeding and is currently have subtle subarachinoid hemorrhage - IVC filter is by Dr. Murillo on 03/31/2025 - Patient is not a candidate of mechanical thrombectomy as of now and does not seem to be in right heart failure #Hypertension (imporved) Patient noted to have history of hypertension but not using any medications before coming to the hospital BP initially elevated with SBP around 180-190. Now stabilized around 130s-140s. Plan - Continue amlodipine and carvedilol - Will continue to monitor blood pressures and titrate medications as needed #Agitation Patient was noted to be agitated during night times recently and pulling out her IV access lines and vital sign monitors. Plan: -Start Seroquel 25 PO qhs #Abdominal pain (resolved) #Umbilical hernia with incarcerated fat #Gallbladder sludge #Prominent pancreatic head #Right hilum mass #Right lower lobe mass #Left adrenal gland mass #Uterine fundal mass #Focal mucinosis Patient reported diffuse abdominal pain today (04/03/25). On exam, diffuse TTP noted mainly in RUQ and LUQ with no peritinic signs. Her LUQ could be due to the renal infarct that has been noted on recent CT. Lactate: 1.1 OB/GYN DOCTOR was called while receiving HD. CTA abd&pelvis was ordered which showed gallbladder sludge and 22mm umbilical hernia with incarcerated fat and negative for any bowel ischemia. Patient was placed NPO and OG tube was inserted however later was pulled out by pt. General surgery Dr. Wood was consulted who recommended no surgical intervention at this time given current comorbidities and the fact that the hernia is most likely chronic. RUQ US was ordered due to concern for budd chiari which was negative for gallstones, however showed thickened gallbladder wall of 0.45cm and prominent pancreatic head of 3.5cm and moderate hepatomegaly. Below incidental findings were also noted in the CTA abd&pelvis: Mass contiguous with the right hilum 32 mm Mass in the right lower lobe 28 mm Nodular thickening left adrenal gland measuring 24 mm Atrophic anteverted uterus with calcified uterine fundal mass Pathology report on 04/06 for the biopsy of the left medial knee skin shows benign skin with changes suggesting focal mucinosis without signs of neoplasia Plan: - CTM - Advanced diet to full liquid. We will assess for patient''s tolerance and assess for bowel movement and passing flatulence. Will consult surgery again if indicated. - Patient will need to follow up with PCP upon discharge for the incidental findings listed above # Transaminitis (resolved) # Hyperbilirubinemia (resolved) #Hepatitis C At the time of admission patient was found to have bilirubin of 1.6, AST 146, ALT 61 ---> 03/31, AST 76, ALT 74 --> 04/03, AST 42 , ALT 65--> 04/07 AST 25, ALT 29 DDx: Fatty liver versus chronic liver disease versus viral hepatitis versus secondary to ongoing septic shock and possible suspected ischemia Tested positive for hepatitis C antibody. Liver ultrasound showed 10 mm gallstone, CBD enlarged 0.6 cm, liver 18.5 cm fatty infiltration Plan: - Will continue to monitor liver functions - Patient has to follow-up with screw machine operator on discharge on outpatient basis for follow-up on hepatitis C, currently does not suspect any active viral hepatitis # High anion gap metabolic acidosis (resolved) # Lactic acidosis (resolved) Likely in the setting of ongoing shock, likely due to sepsis. At the time of admission, anion gap is 19, lactate is 4.7 ---> 8/20, AG 22, Lactate 1.1 --> 8/22 AG 16, lactate 1.1 Anion gap improved on day of admission and lactic acidosis is slowly improving after starting CRRT. Plan: - Received CRRT on 03/27 and 03/28, HD on 03/29, 03/30, 03/31, 04/03, 04/04, 04/06 - Will continue to monitor lab values # Rhabdomyolysis (resolved) Patient happened to be on the floor lying down for 4 to 5 hours and also tested positive for methamphetamine on urine toxicology CK at the time of presentation is 9752 and received 2 L of fluid in the ED, as patient is fluid overloaded cannot give more fluids CK levels continue to trend down slowly to 1187. Plan: -CTM # Uncontrolled type 2 diabetes mellitus Patient is not following any primary care provider and not taking medications properly per patient's family. Blood glucose at the time of admission is 550 for which patient was given 10 units of lispro in the ED. The patient had high anion gap metabolic acidosis, tested negative for beta- hydroxybutyrate and DKA is ruled out. A1C: 13.6 Patient achieving appropriate glucose control with current regimen Plan: - Degludec 24 U QHS + ISS step 3 - Will titrate degludec according to FBS # Chronic right leg wound Likely from uncontrolled diabetes mellitus and venous congestion. On physical examination, noted 5 x 6 cm wound with well-healing granulation tissue. Arterial Doppler was ordered which showed no PAD in bilateral lower extremities Plan - Wound care consulted - Continue Vitamin C 250mg BID - Continue Zinc sulfate 220mg Qday x14 days (04/03-) - Nephro-Vu # History of asthma Unclear if patient is using inhalers or if she has recent exacerbations. Currently does not appear to be in any exacerbations Plan: -CTM Health Maintenance: Diet: cons carb GI prophylaxis: Protonix DVT prophylaxis: Heparin subcut 5000 units every 8 hours Antibiotics: Cefepime 2 g IV, Vancomycin (pharm to dose) CODE STATUS: Full Disposition: HAP management Case discussed with attending Dr. Dubois and senior resident Dr. Rivera. Ivanna Franklin DO PGY1
--- NOTE | 2025-04-10 16:27 | PC.SS ---
SS follow up note; Pending Kidney Biopsy and perm cath. Discharge home, still refusing SNF.
[2025-04-10] MEDS: INSULIN DEGLUDEC 5 UNIT/0.05 ML (PER 5 UNITS) 24 UNIT SC (20:06)
[2025-04-10] MEDS: ATORVASTATIN CALCIUM 20 MG TABLET 80 MG PO (20:06)
[2025-04-10] MEDS: INSULIN LISPRO (AdmeLOG) 1 UNIT/0.01 ML UNIT SC (20:06)
[2025-04-10] MEDS: ASCORBIC ACID 250 MG TABLET PO (20:06)
[2025-04-10] MEDS: GABAPENTIN 100 MG CAPSULE PO (21:37)
[2025-04-10 22:06] LABS: HCV RNA, PCR (Source Pt) <15 NOT DETECTED IU/mL
--- NOTE | 2025-04-10 22:42 | ESPR_ITS ---
Documentation for date of: 04/10/25 Subjective Subjective Interval history: Patient was seen in [facility] today at the bedside, c/o generalized aches and pains and get restless often. Exam - Neurology Vital Signs Temp Pulse Resp BP Pulse Ox O2 Del Method O2 Flow Rate 97.9 F 89 18 140/77 H 93 L Room Air 3 04/10/25 20:00 04/10/25 21:37 04/10/25 20:00 04/10/25 21:37 04/10/25 20:00 04/10/25 20:00 04/09/25 00:15 FiO2 40 04/05/25 04:00 Narrative Exam GENERAL APPEARANCE: Well hydrated, well-nourished in no acute distress. HEENT: Normocephalic, atraumatic, extraocular movements intact. Pupils: Equal reacting to light and accommodation NECK: Supple, no JVD or bruits. CARDIOVASULAR: Heart: S1, S2 heard, regular without S3-S4 or murmur no rubs or gallops. LUNGS/CHEST: Clear to auscultation bilaterally. No rails, rhonchi, or wheezing. Normal inspection. ABDOMEN: Soft, nontender, with normal bowel sounds. No pulsatile masses. No rebound, rigidity, or guarding. Normal inspection and palpation. EXTREMITIES: Normal inspection and palpation. No edema, clubbing or cyanosis. SKIN: Warm and dry without rashes. Normal inspection. MUSCULOSKELETAL: No cervical, thoracic, lumbar or midline bony tenderness. Normal inspection. NEURO: Resting under the effect of sedation, exam is limited but no focal neurological deficit noted. No signs of meningeal irritation noted. PSYCHIATRIC: Limited Objective Labs 04/09/25 05:10 04/09/25 05:10 Labs: Laboratory Results - last 24 hr 04/01/25 04:44 Factor V Leiden Mutat NEGATIVE Factor V Leiden Interp See Below Beta-2 GPI IgG Ab <2.0 Beta-2 GPI IgM Ab <2.0 Beta-2-GPI IgA Ab <2.0 Phosphatidylserine IgM 12 Anti-Phospholipid Intrp SEE NOTE Anti-Cardiolipin IgG Ab <2.0 Anti-Cardiolipin IgA Ab <2.0 Anti-Cardiolipin IgM Ab <2.0 Phospholip A2 Rec IgG <9 Factor II Mutation NEGATIVE Ref Test Interpretation See Below ABG Interpretation ABG results: 03/26/25 03/26/25 03/26/25 11:18 11:44 16:23 ABG pH 7.27 L Cancelled ABG pCO2 40 Cancelled ABG pO2 146 H Cancelled ABG HCO3 18 L Cancelled ABG O2 Saturation 100 H Cancelled ABG Base Excess -8 L Cancelled VBG pH 7.19 L VBG pCO2 48 VBG pO2 37 VBG Base Excess -10 L 03/26/25 03/27/25 03/27/25 18:43 00:17 03:42 ABG pH 7.16 L* D 7.24 L Cancelled ABG pCO2 58 H D 44 D Cancelled ABG pO2 68 L D 80 L Cancelled ABG HCO3 21 19 L Cancelled ABG O2 Saturation 90 L 96 Cancelled ABG Base Excess -9 L -8 L Cancelled VBG pH VBG pCO2 VBG pO2 VBG Base Excess 03/27/25 03/27/25 03/27/25 04:04 07:55 18:48 ABG pH 7.26 L 7.30 L ABG pCO2 43 37 ABG pO2 83 174 H D ABG HCO3 19 L 18 L ABG O2 Saturation 97 101 H ABG Base Excess -7 L -8 L VBG pH 7.21 L 7.31 L VBG pCO2 49 48 VBG pO2 54 52 VBG Base Excess -8 L -2 03/27/25 03/28/25 03/28/25 19:07 04:06 13:37 ABG pH 7.36 7.38 7.41 ABG pCO2 41 45 44 ABG pO2 79 L D 73 L 105 D ABG HCO3 23 27 H 27 H ABG O2 Saturation 97 96 99 H ABG Base Excess -2 1 2 VBG pH VBG pCO2 VBG pO2 VBG Base Excess 03/29/25 03/30/25 03/31/25 04:45 04:50 04:40 ABG pH 7.38 7.42 7.39 ABG pCO2 45 40 41 ABG pO2 72 L D 66 L 63 L ABG HCO3 27 H 26 25 ABG O2 Saturation 98 93 92 ABG Base Excess 1 2 0 VBG pH VBG pCO2 VBG pO2 VBG Base Excess 03/31/25 17:30 ABG pH 7.39 ABG pCO2 36 ABG pO2 80 L ABG HCO3 21 ABG O2 Saturation 96 ABG Base Excess -3 VBG pH VBG pCO2 VBG pO2 VBG Base Excess Assessment & Plan Assessment and plan (1) Ischemic cerebrovascular accident (CVA): Status: Acute (2) Uncontrolled diabetes mellitus: Status: Chronic (3) Pneumonia: Status: Acute Additional Assessment & Plan Additional Plan: (1) Ischemic cerebrovascular accident (CVA): Status: Acute Assessment and plan: With the recent CTs showing findings suspicious for subarachnoid and intracerebral hemorrhage Continue with aspirin 81 mg and statin Follow-up with the hypercoagulopathy workup Her condition is very unfortunate and family is made aware of the situation with the repeat CT head findings of persistent bleed and not being able to go back on antiocoagulant therapy. Will do a repeat CT head without contrast tomorrow. (2) Uncontrolled diabetes mellitus: Status: Chronic Assessment and plan: Continue to check fingerstick glucose and follow sliding scale insulin per protocol (3) Pulmonary embolism: Status: Chronic Assessment and plan: She got the IVC filter placement Anticoagulation is difficult to decide from concurrent intracerebral and subarachnoid hemorrhage on the CT head
[2025-04-11] VITALS (14 sets, daily range): BP systolic 103–135; BP diastolic 55–74; PULSE 66–87; RESP 16–96; TEMP 36.3–37.2; O2SAT 89–100
[2025-04-11 05:12] LABS: Basophils # (Auto) 0.1 Thou/mm3 (0.0-0.2); Basophils % (Auto) 1 % (0-2.5); Eosinophils # (Auto) 0.2 Thou/mm3 (0.0-0.5); Eosinophils % (Auto) 2 % (0-10); Hematocrit 30.2 % (36.0-46.0); Hemoglobin 9.4 g/dL (12.0-16.0); Immature Granulocytes Auto 0.30 Thou/mm3 (0.00-0.00); Lymphocytes # (Auto) 2.2 Thou/mm3 (1.0-4.8); Lymphocytes % (Auto) 21 % (10-50); Mean Corpuscular HGB Conc 31.1 g/dl (31.0-37.0); Mean Corpuscular Hemoglobin 29.3 pg (25.0-35.0); Mean Corpuscular Volume 94 fL (80-100); Monocytes # (Auto) 1.3 Thou/mm3 (0.0-0.8); Monocytes % (Auto) 13 % (0-12); Neutrophils # (Auto) 6.4 Thou/mm3 (1.8-7.7); Neutrophils % (Auto) 61 % (37-80); Nucleated Red Blood Cell # 0.00 Thou/mm3 (0.00-0.00); Nucleated Red Blood Cell % 0 /100 WBC (0); Platelet Count 467 Thou/mm3 (140-440); RDW Standard Deviation 53.9 fL (36.4-46.3); Red Blood Count 3.21 Miln/mm3 (4.00-5.20); White Blood Count 10.4 Thou/mm3 (3.6-11.0)
[2025-04-11] MEDS: GABAPENTIN 100 MG CAPSULE PO ×3 (05:26→22:00)
[2025-04-11 05:41] LABS: Alanine Aminotransferase 14 U/L (10-49); Albumin, Serum 3.5 gm/dL (3.5-5.0); Albumin/Globulin Ratio 1.3 (1.2-2.2); Alkaline Phosphatase 67 U/L (46-116); Anion Gap 14 (7-16); Aspartate Amino Transferase 21 U/L (0-34); BUN/Creatinine Ratio 11 Ratio (12-20); Bilirubin,Total 0.6 mg/dL (0.3-1.2); Blood Urea Nitrogen 26 mg/dL (9-23); Calcium 9.3 mg/dL (8.3-10.6); Calcium (Corrected) 9.7 mg/dL (8.5-10.1); Carbon Dioxide 27.3 mMol/L (20.0-31.0); Chloride 101 mMol/L (98-107); Creatinine (Component) 2.4 mg/dL (0.6-1.3); Estimated Creatinine Clearance 25.0 mL/min (>60); Globulin 2.8 gm/dL (2.3-3.5); Glucose 116 mg/dL (74-106); Magnesium 1.6 mg/dL (1.6-2.6); Osmolality,Calculated 288 (275-295); Phosphorous 4.0 mg/dL (2.4-5.1); Potassium 3.5 mMol/L (3.4-5.1); Sodium 142 mMol/L (136-145); Total Protein 6.3 gm/dL (5.7-8.2); eGFR 23 See Note
[2025-04-11 06:36] LABS: Vancomycin,Random 10.9 mcg/mL
--- NOTE | 2025-04-11 07:30 | ESPR_ITS ---
Documentation for date of: 04/11/25 Subjective Subjective Interval history: History of present illness: (patient was intubated during this marketing underwriter's visit so the following narrative was constructed primarily via chart checking) Vashti Ross is a 59-year-old F with a PMH of diabetes, hypertension, asthma, substance use disorder (including opiates, probable methamphetamine, and marijuana) on methadone previously, and a chronic right leg wound brought in by ambulance from her home for altered mental status. Per ED rendition of EMS report, patient was noted to be altered with a respiratory rate of 4 en route to [facility]. A total of 8 mg of Narcan was administered at this time which initially improved mentation. Upon arrival, patient was noted to be somnolent and given an additional 0.4 mg of IV Narcan which made her more active but also more combative. She was also noted to be hypoxic and in respiratory distress upon arrival which led her to be put on BiPAP. During her agitated episode, patient endorsed that she hurt all over and loudly yelled that I gotta get out of here . She was eventually given 2 mg of IV Versed and put on restraints due to her continued agitation. Later, she was taken for an MRI which required removal of her BiPAP but upon removal a subsequent drop in O2 saturation to the low 90s was noted. It was deemed that her airway was not secure and the decision was made to intubate the patient. After the MRI was performed, patient was eventually admitted to the ICU. From family collateral, it was learned that patient's last known well time was 22:30 on 03/26. Patient had been found on the floor by her at 05:00 on 03/27 whereupon he tried to rouse her from her stupor, failed, called patient's sister to notify her about patient's condition, and finally left her to go to work. Patient's sister arrived around 09:00 and found patient still lying on the bathroom whereupon this marketing underwriter assumes she called for an ambulance to bring the patient to the ED. In the ED, vitals showed: BP 107/78 HR 94 RR 35 Temp 101.3 SpO2 98% on 15 L BiPAP ED Course: CBC showed high WBC 13.1 w/ neutrophilic predominance but was otherwise WNL. Coagulation panel showed high PT 13.3. ABG showed acidic pH 7.27, normal pCO2 40, high pO2 146, low HCO3 18. CMP showed low carbon dioxide 18.1, high anion gap 19, high creatinine 2.8, low eGFR 19, very high blood glucose 550, very high lactic acid 4.7, high bilirubin 1.6, high AST 146, high ALT 61, high total creatine kinase 9752, very high troponin I 0.427, high BNP 297, and high procalcitonin 43.23. UA showed 2+ protein, 3+ glucose, 1+ ketones, 3+ blood, high RBC 10, high WBC 112, 3+ calcium oxalate crystals, 4+ bacteria, normal random sodium 34.2, normal random potassium 26, and low random chloride 23.2. UDS was (+) for amphetamines/methamphetamines and marijuana. Serological studies were reactive for hepatitis C antibody. Imaging: Head CT showed findings most consistent with acute right frontal lobe infarcts. Brain MRI showed multiple embolic-type foci of restricted diffusion in the b ilateral occipital lobes, bilateral frontal lobes, and bilateral parietal lobes most consistent with acute infarcts. CXR showed bibasilar pneumonia and findings suspicious for mild associated heart failure. Renal US showed small kidneys with right renal cortical thinning as well as mild right and moderate left renal parenchymal scar formation. Carotid doppler study showed 20-40% stenosis of the right internal carotid artery and 0-10% stenosis of the left internal carotid artery. EKG was unremarkable. In the ED, patient was given Duoneb Precedex, doxycycline, etomidate, Lasix, regular insulin, ketamine, Versed, naloxone, 1 L LR bolus, Zemuron, and 1 L NS bolus. Patient was intubated due to low GCS and was admitted to the ICU. Nephrology was consulted due to patient's need for urgent hemodialysis. Neurology is also following. Interval History 04/08/2025 patient currently seen in telemetry. She remains agitated and uncomfortable. Labs and medications have been reviewed. Unable to get dialysis catheter yesterday as she was moving a lot and restless. Spoke to the primary team-will attempt with morphine and Ativan prior to PermCath placement. Also noted goals of care to be discussed with family pending. 04/09/2025 patient seen on telemetry patient's partner seen at bedside she appears much more comfortable compared to prior she reports low back pain versus buttock pain, and left calf pain. labs and medications have been reviewed. Radiologist reported that he was uncomfortable placing permanent dialysis catheter plan for temporary dialysis catheter placement today. BUN 30 from 24 creatinine stable at 3.0. She will likely have HD twice weekly. 04/10/2025: Patient seen while on telemetry her partner was not at bedside several nurses and [employer]OUT EXECUTIVE's were at bedside trying to restrain patient she was using foul language and attempting to spit at staff yelling expletives primary team gave of cocktail of morphine 2mg , diphenhydramine 50 mg, olanzapine 1 dose, haloperidol 5 mg, lorazepam. Despite these interventions, the patient continues to be restrained as she has pulled out all of her IV lines. she was unable to complete hd session yesterday 2/ agitation, nephrology team is concerned that she will pull out the temp HD cath. 04/11/2025: Patient seen and examined on telemetry, patient reporting headache and generalized body pains no focal symptoms, of note patient on exam appears to have right hemineglect with inability to look to patient's right, unable to abduct OD, nurse noted that patient appeared to be getting increasingly agitated this morning, cursing at staff however less combative compared yesterday. Holding HD given patient's renal function appears to be improving creatinine today 2.4 from 3.0. Exam Vital Signs Temp Pulse Resp BP Pulse Ox O2 Del Method O2 Flow Rate 97.3 F 77 18 132/66 H 100 Room Air 3 04/11/25 04:00 04/11/25 05:26 04/11/25 04:00 04/11/25 05:26 04/11/25 04:00 04/11/25 04:00 04/09/25 00:15 FiO2 40 04/05/25 04:00 Narrative Exam General:awake and alert, patient appears very uncomfortable complaining of vague pain HEENT: Normocephalic, atraumatic, mucous membranes dry, Heart: Regular rate and rhythm, + murmurs. Lungs: CTAB Abdomen: Soft, nondistended, non tender, positive bowel sounds. ?No guarding or rebound tenderness. C/O for vague abdominal pain nonfocal Neurologic: alert and orientedx2, patient mildly agitated, noncombative. ?Right bereket neglect, unable to abduct right eye, PEERL, Extremities: Noted chronic wound of 5 x 6 cm in the right lower extremity bandaged with kerlix. Noted tissue pressure injuries on the upper lateral right and left thigh. Also noted infected area in the right toe. Peripheral pulses are 2+ There is demarcated ischemia of left foot of 1st and 5th digit. L knee surgical scar. C/O of right greater than left calf pain, Objective Labs 04/14/25 08:27 04/14/25 04:45 Labs: Laboratory Results - last 24 hr 04/11/25 04:08 WBC 10.4 RBC 3.21 L Hgb 9.4 L Hct 30.2 L MCV 94 MCH 29.3 MCHC 31.1 RDW Std Deviation 53.9 H Plt Count 467 H D Neut % (Auto) 61 Lymph % (Auto) 21 Burke % (Auto) 13 H Eos % (Auto) 2 Baso % (Auto) 1 Neut # (Auto) 6.4 Lymph # (Auto) 2.2 Burke # (Auto) 1.3 H Eos # (Auto) 0.2 Baso # (Auto) 0.1 Immature Gran # (Auto) 0.30 H Absolute Nucleated RBC 0.00 Immature Gran % 3 H Nucleated RBC % 0 Sodium 142 Potassium 3.5 D Chloride 101 Carbon Dioxide 27.3 Anion Gap 14 BUN 26 H Creatinine 2.4 H D Estim Creat Clear Calc 25.0 L eGFR 23 L BUN/Creatinine Ratio 11 L Glucose 116 H Calculated Osmolality 288 Calcium 9.3 Corrected Calcium 9.7 Phosphorus 4.0 Magnesium 1.6 Total Bilirubin 0.6 AST 21 ALT 14 Alkaline Phosphatase 67 Total Protein 6.3 Albumin 3.5 Globulin 2.8 Albumin/Globulin Ratio 1.3 Random Vancomycin 10.9 ABG Interpretation ABG results: 03/26/25 03/26/25 03/26/25 11:18 11:44 16:23 ABG pH 7.27 L Cancelled ABG pCO2 40 Cancelled ABG pO2 146 H Cancelled ABG HCO3 18 L Cancelled ABG O2 Saturation 100 H Cancelled ABG Base Excess -8 L Cancelled VBG pH 7.19 L VBG pCO2 48 VBG pO2 37 VBG Base Excess -10 L 03/26/25 03/27/25 03/27/25 18:43 00:17 03:42 ABG pH 7.16 L* D 7.24 L Cancelled ABG pCO2 58 H D 44 D Cancelled ABG pO2 68 L D 80 L Cancelled ABG HCO3 21 19 L Cancelled ABG O2 Saturation 90 L 96 Cancelled ABG Base Excess -9 L -8 L Cancelled VBG pH VBG pCO2 VBG pO2 VBG Base Excess 03/27/25 03/27/25 03/27/25 04:04 07:55 18:48 ABG pH 7.26 L 7.30 L ABG pCO2 43 37 ABG pO2 83 174 H D ABG HCO3 19 L 18 L ABG O2 Saturation 97 101 H ABG Base Excess -7 L -8 L VBG pH 7.21 L 7.31 L VBG pCO2 49 48 VBG pO2 54 52 VBG Base Excess -8 L -2 03/27/25 03/28/25 03/28/25 19:07 04:06 13:37 ABG pH 7.36 7.38 7.41 ABG pCO2 41 45 44 ABG pO2 79 L D 73 L 105 D ABG HCO3 23 27 H 27 H ABG O2 Saturation 97 96 99 H ABG Base Excess -2 1 2 VBG pH VBG pCO2 VBG pO2 VBG Base Excess 03/29/25 03/30/25 03/31/25 04:45 04:50 04:40 ABG pH 7.38 7.42 7.39 ABG pCO2 45 40 41 ABG pO2 72 L D 66 L 63 L ABG HCO3 27 H 26 25 ABG O2 Saturation 98 93 92 ABG Base Excess 1 2 0 VBG pH VBG pCO2 VBG pO2 VBG Base Excess 03/31/25 17:30 ABG pH 7.39 ABG pCO2 36 ABG pO2 80 L ABG HCO3 21 ABG O2 Saturation 96 ABG Base Excess -3 VBG pH VBG pCO2 VBG pO2 VBG Base Excess Quality Measures Quality Measures VTE prophylaxis Assessment & Plan Assessment Current Active Medications: Generic Name Dose Route Start Last Admin Trade Name Freq PRN Reason Stop Dose Admin Acetaminophen 650 mg 04/01/25 09:12 04/09/25 09:36 Acetaminophen 325 Mg Tablet PO 04/25/25 18:57 650 mg Q4HR PRN Administration Pain Scale 1-3 OR fever >100.4 Albuterol/Ipratropium 3 ml 04/09/25 00:14 Albuterol/Ipratropium (Duoneb) Rt Jennifer 3 Ml Nebu INH 04/26/25 00:59 Q6HRRT PRN short Amlodipine Besylate 10 mg 04/02/25 09:00 04/10/25 07:59 Amlodipine Besylate 5 Mg Tablet PO 05/02/25 08:59 Not Given QDAY CRIS Ascorbic Acid 250 mg 04/03/25 12:00 04/10/25 20:06 Ascorbic Acid 250 Mg Tablet PO 05/03/25 11:59 250 mg BID CRIS Administration Aspirin 81 mg 04/01/25 09:30 04/10/25 07:59 Aspirin Ec 81 Mg Tabec PO 05/01/25 09:29 Not Given QDAY CRIS Atorvastatin Calcium 80 mg 03/26/25 21:00 04/10/25 20:06 Atorvastatin Calcium 20 Mg Tablet PO 04/25/25 20:59 80 mg HS CRIS Administration Carvedilol 6.25 mg 04/01/25 17:30 04/10/25 17:13 Carvedilol 3.125 Mg Tablet PO 05/01/25 17:29 Not Given BIDWM CRIS Dextrose 25 ml 03/26/25 20:20 Dextrose 50%-Water Inj 50 Ml Syringe IV 04/25/25 20:19 Q15MIN PRN BG 50-70 responsive npo pt Dextrose 50 ml 03/26/25 20:20 Dextrose 50%-Water Inj 50 Ml Syringe IV 04/25/25 20:19 Q15MIN PRN BG <50 OR BG <70 & pt unresponsive Gabapentin 100 mg 04/06/25 22:00 04/11/25 05:26 Gabapentin 100 Mg Capsule PO 05/06/25 21:59 100 mg TID CRIS Administration Glucagon 1 mg 03/26/25 20:20 Glucagon Inj 1 Mg Vial IM Q15MIN PRN BG <70, and no IV access Heparin Sodium (Porcine) 3,000 unit 04/09/25 17:10 Heparin Sod Inj 1000 Unit/Ml Vial 10 Ml INDWELLCAT 04/23/25 17:09 X1 PRN DIALYSIS Hydralazine HCl 25 mg 04/01/25 14:00 04/11/25 05:26 Hydralazine Hcl 25 Mg Tablet PO 05/01/25 13:59 25 mg TID CRIS Administration Cefepime HCl 2 gm/ Sodium 50 mls @ 100 mls/hr 04/04/25 12:45 04/10/25 17:15 Chloride IV 04/11/25 12:44 Not Given QDAY@1800 CRIS Vancomycin/Sodium Chloride 750 mg in 150 mls @ 120 mls/hr 04/11/25 10:00 Vancomycin/Ns 750 Mg Ivpb IV 04/11/25 11:14 X1 ONE Magnesium Sulfate 4 gm in 50 mls @ 12.5 mls/hr 04/11/25 07:20 Magnesium Sulfate Ivpb IV 04/11/25 11:19 X1 ONE Insulin Degludec 24 unit 04/01/25 21:00 04/10/25 20:06 Insulin Degludec 5 Unit/0.05 Ml (Per 5 Units) SC 05/01/25 20:59 24 unit HS CRIS Administration Insulin Human Lispro 0 unit 04/04/25 21:00 04/10/25 20:06 Insulin Lispro (Admelog) 1 Unit/0.01 Ml Unit SC 05/04/25 20:59 3 unit ACHS CRIS Administration Protocol Labetalol HCl 10 mg 04/01/25 11:16 Labetalol Inj 5 Mg/Ml Vial 20 Ml IVP 05/01/25 11:29 Q4HR PRN if SBP>140 Nicotine 21 mg 04/05/25 10:45 04/10/25 07:59 Nicotine Patch 21 Mg/24 Hr Patch.Td24 TOP 05/05/25 10:44 Not Given QDAY [facility] Pharmacy Consult 1 each 04/04/25 12:30 Vancomycin Pharmacy To Dose 1 Each Each IV 05/04/25 12:29 QDAY PRN PROTOCOL Quetiapine Fumarate 25 mg 04/08/25 21:00 04/10/25 20:07 Quetiapine Fumarate 25 Mg Tablet PO 05/08/25 20:59 25 mg HS CRIS Administration Sevelamer Carbonate 800 mg 04/05/25 08:00 04/10/25 19:15 Sevelamer Carbonate 800 Mg Tablet PO 05/05/25 07:59 Not Given TIDWM [facility] Vitamin B Complex/Vit C/Folic Acid 1 tab 04/03/25 12:00 04/10/25 07:59 Vit B12/Vit C/Fa (Nephrovite) Tablet PO 05/03/25 11:59 Not Given QDAY CRIS Zinc Sulfate 220 mg 04/03/25 12:00 04/10/25 07:59 Zinc Sulfate 220 Mg Capsule PO 04/17/25 11:59 Not Given QDAY CRIS Plan Vashti Ross is a 59-year-old F with a PMH of diabetes, hypertension, asthma, substance use disorder (including opiates, probable methamphetamine, and marijuana) on methadone previously, and a chronic right leg wound brought in by ambulance from her home for altered mental status. Patient was intubated due to low GCS and was admitted to the ICU. echo with tricuspid vegitations and EF 40- 45%, pt with extensive PE and extensive non occlusive DVT of LLE, SYLVIE revealed atrial septal aneurysm, likely source of embolic strokes in the setting of DVT. per cards, holding off on anticoagulation due to concern for hemorrhagic conversion of infarct. s/p IVC filter, found to have nephrotic range proteinuria, repeat ct head with new infarcts of the L frontoparietal and L posterior parietal lobes.temporary HD catheter placed by dr. elizondo, pt has waxing and waning periods of behavioral changes suspected to be 2/2 frontoarietal infarcts. holding HD given improvement in her renal function. ?right sided hemineglect on exam 04/11. KINJAL on CKD Stage IV - improving Nephrotic range proteinuria Secondary to Ischemic ATN Rhabdomyolysis DDx: multifactorial etiologies including intravascular depletion, diabetic nephropathy, blood pressure derangements, glomerular diseases, sepsis-induced ATN, rhabdomyolysis, cardiorenal syndrome, crystalline nephropathy associated with oxalate, or atheroembolic disease - Admission creatinine 2.8 (baseline: unknown), eGFR 19 - Nephrology consulted for worsening CKD while inpatient - Possible kidney damage from elevated blood glucose 550 on admission, in addition to CK 9752 and U tox positive for amphetamines/methamphetamines - HD: 03/28 CRRT, HD 03/29, 03/30, 03/31, 04/03, 04/04, 04/06, 04/09 labs unable to be drawn 2/2 agitation and no IV access - RFT:04/11 Cr 2.4 from 3.0 improving Plan: - Temp HD catheter placed: (pt has high risk of potentially pulling out catheter in aggitated state. - holding HD given pt renal function is improving. - no need for renal biopsy, ok to d/c order per primary team - Avoid nephrotoxic agents, avoid excessive fluids and renally dose medications. - Hold any KRISSY/ARB/diuretics as KINJAL causing worsening of CKD Other medical problems: Agitation and combative behavior query 2/2 frontoparietal infarcts pt at risk for pulling out hd tem cath CVA- Subarachnoid hemorrhage and multiple acute infarcts ? New right hemineglect noted on exam 04/11 In the setting of History of PE Extensive nonocclusive DVT LLE Secondary to Hypercoagulable state Antiphospholipid syndrome, ruled out - Patient has a hx of miscarriages. Never got coagulation workup in the past - CTA Positive for multiple right lower lobe pulmonary artery and left upper lobe pulmonary artery emboli - Of note, multiple thrombi, lung, spleen, LE, - CThead 04/07 with Low-density acute infarctions now evident in the left frontoparietal left posterior parietal lobes not seen on the April 02, 2025 exam Plan: - Primary team consulted Dr Krishna for hematology workup - s/p IVC filter in place HF mrEF 40 -45% History of Endocarditis Atrial aneurysm NSTEMI, likely type 2 demand ischemia - echo with EF 40 -45% - TTE with tricuspid vegitations - SYLVIE with Atrial septal aneurysm present and bubble study positive for PFO especially with increased right atrial pressure Splenic infarct with thrombus in upper lobe splenic arteries T2DM Left toes gangreen vs Atheroembolism of left lower extremity toes - managment per primary team Plan discussed with nephrology attending Dr. Nathalie Vallejo MD Internal Medicine PGY-1 Attending Provider Attestation/Addendum Patient seen and examined with resident physician Dr. Vallejo. note reviewed, agree with findings and recommendations. Patient received 2 days of CRRT, 5 conventional dialysis.. 04/11/2025 patient currently seen in medical floor. She went to ICU to get dialysis catheter placement by Dr. Elizondo. Apparently IR declined to do permcatheter due to her mentation. Patient has hypercoagulable // thrombotic disorder. Patient has both arterial infarcts, venous thrombosis cannot give heparin due to subarachnoid hemorrhage. CT brain showed questionable subarachnoid hemorrhage. CT angiography did not show any mesenteric occlusion. postcontrast did receive dialysis. Today she seems to be very restless and is currently on medications. post Vas-Cath patient did receive short run of dialysis and had to be taken out because of extreme restless symptoms. Noted family requesting all aggressive measures. Hold dialysis today. Once she is more stable she needs permacath prior to discharge and outpatient dialysis arrangements to be done. Spoke to primary team Overall prognosis guarded. Noted family requesting all aggressive measures including dialysis at this point. Not able to come to outpatient setting with restlessness. Neurology on the case.
[2025-04-11] MEDS: SEVELAMER CARBONATE 800 MG TABLET PO ×3 (07:46→16:57)
[2025-04-11] MEDS: Magnesium Sulfate 4 GM Ivpb 4 GM/50 ML BAG IV (08:16)
[2025-04-11] MEDS: ASCORBIC ACID 250 MG TABLET PO ×2 (08:19→20:13)
[2025-04-11] MEDS: ASPIRIN EC 81 MG TABEC PO (08:20)
[2025-04-11] MEDS: VIT B12/Vit C/FA (Nephrovite) TABLET 1 TAB PO (08:21)
[2025-04-11] MEDS: ZINC SULFATE 220 MG CAPSULE PO (08:21)
[2025-04-11] MEDS: NICOTINE PATCH 21 MG/24 HR PATCH.TD24 TOP (08:21)
--- NOTE | 2025-04-11 10:12 | XR_ITS ---
Examination: CT brain head without contrast. 2-D sagittal coronal reconstructions Date and time of exam:April 11, 2025, 1351 hrs., Comparison April 07, 2025 Indications: Stroke history with areas of acute infarction in the left frontal parietal left posterior parietal lobes, subarachnoid hemorrhage in the frontal parietal convexities on CT brain scan April 07, 2025 CTDI: vol (mGy):49 DLP: (mGycm):982 Technique: Multiple CT axial sections of the brain have been obtained, 5 mm slice thickness. Contrast has not been administered. 2-D sagittal, coronal reconstructions have been obtained Low dose protocols were performed. One or more of the following dose reduction techniques were used; automated exposure control, adjustment of the mA and/or KV according to patient size, use of iterative reconstruction technique. Findings: Acute infarction in the left middle cerebral artery distribution, left frontal parietal lobe and to a lesser extent left occipital lobe Improvement in the subarachnoid hemorrhage, minimal in frontal convexity sulci axial image 23 No mass effect upon the ventricular system Impression: Acute infarction in left middle cerebral artery distribution, left frontal parietal lobe left occipital lobe Improvement in subarachnoid hemorrhage, minimal residual in right frontal convexity, axial image 23
[2025-04-11] MEDS: VANCOMYCIN/NS 750 MG IVPB 750 MG/150 ML BAG 120 MG IV (10:28)
--- NOTE | 2025-04-11 11:01 | PD.INTPROC ---
PROCEDURES: Procedure Date / Time 04/09/25 1241 Procedural Time Out Time out performed: Yes, correct patient, correct side, all appropriate resources available. Plan for conscious sedation reviewed. End-tidal CO2 monitoring placed along with supplemental oxygen readily available. Central Line Placement Right Femoral: Indication(s): other (Urgent hemodialysis) Informed consent obtained: obtained from surrogate decision maker Time out done, and the following verified: correct patient, side and site, procedure and patient position Patient placed on monitor/pulse ox: Yes Hand Hygiene: alcohol-based hand rub Max Sterile Barrier Techniques used: cap, mask, sterile gown, sterile gloves and sterile full body drape Central line prep: Chlorhexidine scrub Local anesthesia used: lidocaine 1% Amount of anesthesia used (mL): 35 Ultrasound used for placement: Yes Sterile Technique if Ultrasound used, including sterile gel: yes Central line lumen inserted: triple Post procedure: sutured in place, good blood return, all ports aspirated, flushed, capped and sterile dressing applied Patient tolerated procedure: well and no complications EBL(ml): 10 Complications: none
--- NOTE | 2025-04-11 11:21 | ESPR_ITS ---
<Statement entered by Joe Toney MD - 04/11/25 15:00> I attest that I was physically present for the evaluation, physical examination, lab and imaging review of the patient with the residents. I discussed the case with the residents and agree with the findings and plans of care as documented below. At bedside today, patient appears sleepy, resting comfortably at bed. at bedside stated that patient shows improvement compared to yesterday. Explained to him in detail about her ongoing problems and management plans. Follow-up head CT ordered as recommended by neurology, appreciate recommendations. Patient noted to have multiple masses around uterus, adrenal glands, lung, we will obtain oncology consult. Has been receiving dialysis through temporary dialysis catheter, if patient remains calm, we will attempt for permanent dialysis catheter on Sunday/Sunday. Patient is also awaiting renal biopsy. We will continue IV antibiotics for septic shock secondary to pneumonia and UTI, 10 days to be completed on 04/13/2025. Unable to start on anticoagulation due to concern for intracranial bleeding, after follow-up head CT today, we will discuss with neurology regarding anticoagulation. Hemoglobin noted to have decreased to 9.4 from 11.2, we will monitor closely for any active bleeding. Joe Toney MD <Statement entered by Kentrell Hendricks MD - 04/11/25 14:32> Patient was examined and case was reviewed with team including attending physician. Note reviewed, I agree with most of its contents and agree with the patient's care as documented by Dr. Rand Patient seen and evaluated at the bedside. No agitation noted. Vitals and labs reviewed. Ordered repeat head CT to evaluate subarachnoid bleed. Will reach out to neurology in regards to resuming anticoagulation after head CT results. Per nephrology patient will not have hemodialysis session today as labs are improving. Case discussed with my attending Dr. Feng Hendricks MD PGY-2 Disclaimer: Despite multiple revisions, due to the dictation software being used, the document bellow may not be free of grammatical errors including phonetic/typographic errors. However, this does not deter from our commitment to providing health care in the patient's best interest in mind. Documentation for date of: 04/11/25 Subjective Subjective Interval history: 04/11/25: Patient was evaluated and examined at bedside. Patient was resting comfortably, no agitation noted during our shift; however she was noted to be agitated at times recently requiring medical intervention and soft restraints. at bedside. We again explained patient's active medical problems and our approached to each individual problem, including risks and benefits and prognoses. At this time, patient's leukocytosis has resolved, however we will continue the IV Abx treatment for another 3 days (total of 10 days). In regards to hypercoagulable studies, some tests are still pending, we will reach out to the laboratory to follow up. Patient will undergo kidney biopsy on Sunday. Still helding any anticoagulation medication given brain hemorrhage, we will repeat brain CT with no contrast today and reassess thereafter. Given multiple incidental masses that were seen on recent CT scans concerning for malignancy including the uterus, adrenal glands, lung, and hilum, we will consult radiation oncology for their recommendations. Patient will need to be reasses on Sunday by IR for permenant catheter placement for dialsysis or be transferred to [facility] if IR team here is unable to perform such procedure. However, Patient's kidney function has been improving recently and electrolytes are within normal limits at this time. We will reassess again. Exam Vital Signs Temp Pulse Resp BP Pulse Ox O2 Del Method O2 Flow Rate 99.0 F 77 18 124/58 L 96 Room Air 3 04/11/25 08:00 04/11/25 09:36 04/11/25 09:36 04/11/25 08:21 04/11/25 09:36 04/11/25 08:00 04/09/25 00:15 FiO2 40 04/05/25 04:00 Narrative Exam General: A/O x2. Sleeping. HEENT: Normocephalic, atraumatic, mucous membranes moist. Heart: Regular rate and rhythm, no murmurs. Lungs: Clear to auscultation with no wheezing or crackles. Abdomen: Soft, mildly distended, mild discomfort to palpation throughout. No guarding or rebound tenderness. Neurologic: Bilateral pupils are equal and reacting to light. Able to move all extremities. Muscle strength 4/5 throughout. Extremities: Noted surgical scar on the left knee likely from TKR. Noted chronic wound of 5 x 6 cm in the right lower extremity. Noted tissue pressure injuries on the upper lateral right and left thigh. Also noted infected area in the right toe and left 1st and 5th toes. Skin: No rash or ecchymoses. Objective Labs 04/11/25 04:08 04/11/25 04:08 Labs: Laboratory Results - last 24 hr 04/11/25 04:08 WBC 10.4 RBC 3.21 L Hgb 9.4 L Hct 30.2 L MCV 94 MCH 29.3 MCHC 31.1 RDW Std Deviation 53.9 H Plt Count 467 H D Neut % (Auto) 61 Lymph % (Auto) 21 [place] % (Auto) 13 H Eos % (Auto) 2 Baso % (Auto) 1 Neut # (Auto) 6.4 Lymph # (Auto) 2.2 [place] # (Auto) 1.3 H Eos # (Auto) 0.2 Baso # (Auto) 0.1 Immature Gran # (Auto) 0.30 H Absolute Nucleated RBC 0.00 Immature Gran % 3 H Nucleated RBC % 0 Sodium 142 Potassium 3.5 D Chloride 101 Carbon Dioxide 27.3 Anion Gap 14 BUN 26 H Creatinine 2.4 H D Estim Creat Clear Calc 25.0 L eGFR 23 L BUN/Creatinine Ratio 11 L Glucose 116 H Calculated Osmolality 288 Calcium 9.3 Corrected Calcium 9.7 Phosphorus 4.0 Magnesium 1.6 Total Bilirubin 0.6 AST 21 ALT 14 Alkaline Phosphatase 67 Total Protein 6.3 Albumin 3.5 Globulin 2.8 Albumin/Globulin Ratio 1.3 Random Vancomycin 10.9 ABG Interpretation ABG results: 03/26/25 03/26/25 03/26/25 11:18 11:44 16:23 ABG pH 7.27 L Cancelled ABG pCO2 40 Cancelled ABG pO2 146 H Cancelled ABG HCO3 18 L Cancelled ABG O2 Saturation 100 H Cancelled ABG Base Excess -8 L Cancelled VBG pH 7.19 L VBG pCO2 48 VBG pO2 37 VBG Base Excess -10 L 03/26/25 03/27/25 03/27/25 18:43 00:17 03:42 ABG pH 7.16 L* D 7.24 L Cancelled ABG pCO2 58 H D 44 D Cancelled ABG pO2 68 L D 80 L Cancelled ABG HCO3 21 19 L Cancelled ABG O2 Saturation 90 L 96 Cancelled ABG Base Excess -9 L -8 L Cancelled VBG pH VBG pCO2 VBG pO2 VBG Base Excess 03/27/25 03/27/25 03/27/25 04:04 07:55 18:48 ABG pH 7.26 L 7.30 L ABG pCO2 43 37 ABG pO2 83 174 H D ABG HCO3 19 L 18 L ABG O2 Saturation 97 101 H ABG Base Excess -7 L -8 L VBG pH 7.21 L 7.31 L VBG pCO2 49 48 VBG pO2 54 52 VBG Base Excess -8 L -2 03/27/25 03/28/25 03/28/25 19:07 04:06 13:37 ABG pH 7.36 7.38 7.41 ABG pCO2 41 45 44 ABG pO2 79 L D 73 L 105 D ABG HCO3 23 27 H 27 H ABG O2 Saturation 97 96 99 H ABG Base Excess -2 1 2 VBG pH VBG pCO2 VBG pO2 VBG Base Excess 03/29/25 03/30/25 03/31/25 04:45 04:50 04:40 ABG pH 7.38 7.42 7.39 ABG pCO2 45 40 41 ABG pO2 72 L D 66 L 63 L ABG HCO3 27 H 26 25 ABG O2 Saturation 98 93 92 ABG Base Excess 1 2 0 VBG pH VBG pCO2 VBG pO2 VBG Base Excess 03/31/25 17:30 ABG pH 7.39 ABG pCO2 36 ABG pO2 80 L ABG HCO3 21 ABG O2 Saturation 96 ABG Base Excess -3 VBG pH VBG pCO2 VBG pO2 VBG Base Excess Quality Measures Quality Measures VTE prophylaxis Assessment & Plan Assessment Current Active Medications: Generic Name Dose Route Start Last Admin Trade Name Juan Manuel PRN Reason Stop Dose Admin Acetaminophen 650 mg 04/01/25 09:12 04/09/25 09:36 Acetaminophen 325 Mg Tablet PO 04/25/25 18:57 650 mg Q4HR PRN Administration Pain Scale 1-3 OR fever >100.4 Albuterol/Ipratropium 3 ml 04/11/25 10:04 Albuterol/Ipratropium (Duoneb) Rt Jennifer 3 Ml Nebu INH 04/26/25 00:59 Q6HRRT PRN SHORTNESS OF BREATH Amlodipine Besylate 10 mg 04/02/25 09:00 04/11/25 08:21 Amlodipine Besylate 5 Mg Tablet PO 05/02/25 08:59 Not Given QDAY CRIS Ascorbic Acid 250 mg 04/03/25 12:00 04/11/25 08:19 Ascorbic Acid 250 Mg Tablet PO 05/03/25 11:59 250 mg BID CRIS Administration Aspirin 81 mg 04/01/25 09:30 04/11/25 08:20 Aspirin Ec 81 Mg Tabec PO 05/01/25 09:29 81 mg QDAY CRIS Administration Atorvastatin Calcium 80 mg 03/26/25 21:00 04/10/25 20:06 Atorvastatin Calcium 20 Mg Tablet PO 04/25/25 20:59 80 mg HS CRIS Administration Carvedilol 6.25 mg 04/01/25 17:30 04/11/25 08:20 Carvedilol 3.125 Mg Tablet PO 05/01/25 17:29 6.25 mg BIDWM CRIS Administration Dextrose 25 ml 03/26/25 20:20 Dextrose 50%-Water Inj 50 Ml Syringe IV 04/25/25 20:19 Q15MIN PRN BG 50-70 responsive npo pt Dextrose 50 ml 03/26/25 20:20 Dextrose 50%-Water Inj 50 Ml Syringe IV 04/25/25 20:19 Q15MIN PRN BG <50 OR BG <70 & pt unresponsive Gabapentin 100 mg 04/06/25 22:00 04/11/25 05:26 Gabapentin 100 Mg Capsule PO 05/06/25 21:59 100 mg TID CRIS Administration Glucagon 1 mg 03/26/25 20:20 Glucagon Inj 1 Mg Vial IM Q15MIN PRN BG <70, and no IV access Heparin Sodium (Porcine) 3,000 unit 04/09/25 17:10 Heparin Sod Inj 1000 Unit/Ml Vial 10 Ml INDWELLCAT 04/23/25 17:09 X1 PRN DIALYSIS Hydralazine HCl 25 mg 04/01/25 14:00 04/11/25 05:26 Hydralazine Hcl 25 Mg Tablet PO 05/01/25 13:59 25 mg TID CRIS Administration Cefepime HCl 2 gm/ Sodium 50 mls @ 100 mls/hr 04/04/25 12:45 04/10/25 17:15 Chloride IV 04/11/25 12:44 Not Given QDAY@1800 [facility] Insulin Degludec 24 unit 04/01/25 21:00 04/10/25 20:06 Insulin Degludec 5 Unit/0.05 Ml (Per 5 Units) SC 05/01/25 20:59 24 unit HS CRIS Administration Insulin Human Lispro 0 unit 04/04/25 21:00 04/11/25 07:46 Insulin Lispro (Admelog) 1 Unit/0.01 Ml Unit SC 05/04/25 20:59 Not Given ACHS CRIS Protocol Labetalol HCl 10 mg 04/01/25 11:16 Labetalol Inj 5 Mg/Ml Vial 20 Ml IVP 05/01/25 11:29 Q4HR PRN if SBP>140 Nicotine 21 mg 04/05/25 10:45 04/11/25 08:21 Nicotine Patch 21 Mg/24 Hr Patch.Td24 TOP 05/05/25 10:44 21 mg QDAY CRIS Administration Pharmacy Consult 1 each 04/04/25 12:30 Vancomycin Pharmacy To Dose 1 Each Each IV 05/04/25 12:29 QDAY PRN PROTOCOL Quetiapine Fumarate 25 mg 04/08/25 21:00 04/10/25 20:07 Quetiapine Fumarate 25 Mg Tablet PO 05/08/25 20:59 25 mg HS CRIS Administration Sevelamer Carbonate 800 mg 04/05/25 08:00 04/11/25 07:46 Sevelamer Carbonate 800 Mg Tablet PO 05/05/25 07:59 800 mg TIDWM CRIS Administration Vitamin B Complex/Vit C/Folic Acid 1 tab 04/03/25 12:00 04/11/25 08:21 Vit B12/Vit C/Fa (Nephrovite) Tablet PO 05/03/25 11:59 1 tab QDAY CRIS Administration Zinc Sulfate 220 mg 04/03/25 12:00 04/11/25 08:21 Zinc Sulfate 220 Mg Capsule PO 04/17/25 11:59 220 mg QDAY CRIS Administration Plan 59F with PMH of DM, HTN, asthma, drug use disorder, and a chronic right leg wound was brought to the ED after being found unresponsive at home where she was found to have acute encephalopathy with low GCS requiring intubation and ICU admission for ventilator support, pressor support for likely septic shock, and CRRT. Patient found to have multi embolic disease involving multiple systems including brain and left distal extremity, acute and failure with the cause likely renal emboli. #Acute encephalopathy, multifactorial, related to metabolic derangement, substance use, and embolic CVA (Resolving) #Acute Multiple embolic type foci occipital lobes, bilateral frontal and bilateral parietal lobe #Atrial septal aneurysm #PFO #Subarachnoid hemorrhage #Endocarditis - r/o #Tricuspid valve vegetation - r/o -Patient came in with altered sensorium and head CT at the time showed multiple bilateral infarcts, likely embolic. Patient was weaned off sedation and extubated on 03/31/2025, tolerated well. Currently, patient is improving and is alert and oriented. Patient has extensive DVT in the left lower extremity also noted to have pulmonary embolism, patient might be having embolism through PFO and reaching the systemic circulation. -TTE showed normal size left ventricle with mild apical and global hypokinesis LVEF 40-45%. Evidence of Tricuspid valve vegetation suggestive of endocarditis. The RV is normal in size. The right ventricular systolic function is mildly decreased. Aortic valve sclerosis thickened wih mild aortic regurgitation. Mitral valve thickening with mild mitral regurgitation. -SYLVIE (03/30/25) confirmed no vegetations. Noted to have atrial aneurysm bulging into left atrium, bubble study done showed PFO -EEG from 04/02/25 shows diffuse slowing suggestive of a diffuse encephalopathy of vascular origin. -Per neurology team, given PE and small PFO, PE could be the cause of embolism vs endocardititis but less likely as negative SYLVIE for vegation. Although leukocytosis noted, less likely secondary to endocarditis in origin and more likely secondary to ischemia vs less likely increased coagulopathy as no previous history of DVTs. -Hematology Dr. Krishna was consulted who agreed with the current plan. -MR venogram negative for any thrombus -New blood cx negative - Pending the rest of hypercoagulopathy tests. -Repeat brain CT (04/07/25) shows slightly less prominent subtle subarachinoid hemorrhage in the frontoparietal convexities compared to the previous scan. Also, low-density acute infarctions are now evident in the left frontoparietal, left posterior parietal lobbes that were not seen in the previous scan. - Hypercoagulable studies: Positive cryoprecipitate but low < 1%, 1/2 samples positive for lupus anticoagulant. Weakly positive for hexagonal phase confirm test. Positive EFFIE. negative anti double-stranded. Plan: - Discussed with patient and their family members regarding the current plan of starting anticoagulation medication if cleared by neurology team. Explained to patient and their family members regarding risks and benefits of starting anticoagulation. Explained to them that if we don't start anticoagulation her PE and DVT may have negative consequences (ie. worsening of her current condition) and she may be at risk for more thromboses and on the other hand, if we do start these medications she may be at risk for new brain hemorrhage, worsening of current hemorrhage or bleedings else where in her body. Patient and family understands the risks and benefits and agree with the plan of starting anticoagulation if prompted by the neurology team. At this moment, the neurology team is advising against starting anticoagulation medications given new CT findings. - Patient's declined hospice care. Will reevaluate at a later time. - Pending repeat brain CT without contrast - Will continue atorvastatin and Aspirin for now - Cannot start on heparin drip as patient noted to have subtle hemorrhage on repeat CT head done on 04/07/2025. Repeat CT head from 04/02 showed stable multiple areas of subarachnoid hemorrhage compared to 04/01 - IVC filter placement is done on 03/31/2025 to prevent further embolic strokes through PFO from DVT - No need of urgent PFO closure as per Dr. Nayak. - PT and speech therapy - Pending the rest of hypercoaugulable workup due to suspected Antiphospholipid syndrome due to DVT and other infarcts #Septic shock (resolved) #Hospital-Acquired PNA (Improved) # UTI (Improved) At the time of admission, patient was noted to have bilateral lower extremity edema and bilateral diffuse inspiratory crackles -possible heart failure in the setting of methamphetamine abuse, diabetes, hypertension. Also noted to have temperature of 101.8 ?F at the time of admission, likely due to some ongoing infection. Fits into 2/3 qsofa criteria. Noted to have GCS less than 15 and respiratory rate 35/min. Suspecting sepsis worsening the underlying heart failure resulting in suspected possible combined septic and cardiogenic shock. DDx: Combined cardiogenic and septic shock Patient was started on Levophed and weaned off completely on 03/30/2025 WBC on admission 13.1, procalcitonin 43.23. UA showed turbid urine with 2+ proteinuria, 3+ glucosuria, 112 WBC, 4+ bacteria suggestive of UTI. Urine culture positive for E.coli, blood cultures negative. TTE showed vegetations of the trisupid valve concerning for endocarditis. Leukocytosis now resolved to 10.4. Patient remains afebrile. Initially patient was started on vancomycin and Zosyn [03/27-03/30], discontinued Vanco and Zosyn, Started on Rocephin (03/30-04/04) Blood cx and sputum culture negative Plan: - Continue Vancomycin and cefepime 2g to cover for HAP for another 3 days. To end on 04/13/25. (04/04/25-) - Will continue to monitor vitals # Acute hypoxic respiratory failure (resolving) # Respiratory acidosis (resolved) Per patient family, patient does not have any previous history of respiratory problems and is not using any inhalers. Not a smoker. ABG at the time of admission showed pH 7.16, pCO2 58, pO2 68, FiO2 100%. Repeat ABG done on 03/27/2024 showed pH 7.3, pCO2 37, bicarb 18. Repeat ABGs done after 03/28/2025 is within normal limits. CTA chest Positive for multiple right lower pulmonary artery filling defects. Positive for left upper lobe pulmonary artery filling defects. No emboli in the main pulmonary artery segments. Pneumonia versus infarction in both lower lung zones. CXR shows bibasilar pneumonia DDx: Sepsis, acute encephalopathy, pulmonary edema, pulmonary embolism, combined. Patient was intubated, sedated and placed on mechanical ventilator on 03/26 and extubated on 03/31. Though patient had pulmonary embolism, patient oxygen needs is coming down. CTA abd&pelvis on 04/04 still reveals pneumonia at the left base Plan: - Continue ABx as above - Will continue oxygen as needed for now. #KINJAL (Improving) #Acute renal failure likely 2/2 septic shock vs. renal emboli vs. rhabdomyolysis #Nephrotic range proteinuria Patient does not follow-up any primary care doctor and unsure of her baseline kidney functions. Patient noted to have decreased urine output and oliguric which have improved Creatinine at the time of admission is 2.8 --> 03/30, 2.4 --> 03/31, 3.1 --> 04/01, 4.9 --> 04/03, 5.5--> 04/07 3.0-->04/09, 3.0-->04/11 2.4 Possible kidney damage from elevated blood glucose 550 on admission, in addition to CK 9752 and U tox positive for amphetamines/methamphetamines DDx: multifactorial etiologies including intravascular depletion, diabetic nephropathy, blood pressure derangements, glomerular diseases, sepsis-induced ATN, rhabdomyolysis, cardiorenal syndrome, crystalline nephropathy associated with oxalate, or atheroembolic disease Cr improving wth electrolytes in normal ranges. No need for HD at this time. Negative blood cx x2 Plan: - Patient did not tolerate permanent cath placement (04/07/25). Recommended by radiology team to perform this under anesthesia; however, given current active medical problems we predict poor outcomes if patient undergoes anesthesia at this time. Discussed the case with the nephrology team, as they recommend permanent catheter placement for dialysis that patient will need for upon discharge. - IR refused repeating permanent catheter placement given patient's inadequate sedation during the last attempt as she was not cooperative. - Temporary HD cath was placed by ICU team (04/09/25). Patient will need a permanent cath placement prior to discharge, as this can be done on Sunday by IR here at [place] or transfer to [facility]. Though, kidney function is improving and she is making urine. We will reassess the need for perm cath at a later time again (pt has high risk of potentially pulling out catheter in agitated state). - holding HD given pt renal function is improving. - IV albumin prn - Held IV Bumex - Will continue to monitor urine output - Monitor renal panel - Avoid nephrotoxic agents (aminoglycosides, NSAIDs, radiographic contrast) - Adjust medication dosing based on patient's impaired renal function - Hold any KRISSY/ARB/diuretics - HD: 03/28 CRRT, HD 03/29, 03/30, 03/31, 04/03, 04/04, 04/06, 04/09 labs unable to be drawn 2/2 agitation and no IV access - Hold getting CT guided renal biopsy, to assess proteinuria - Started Sevelamer 800 mg TID with meals for hyperphosphatemia despite HD yesterday - Plan to do kidney biopsy on Saturday 04/14. Recommended by Dr. Rodrigues. # HFrEF, EF 40 to 45% #Substance Use Disorder Unsure whether patient is regular methamphetamine user, as family members is not aware of the use. Patient also have severe uncontrolled diabetes mellitus, which could also contribute to the ischemic heart disease and CHF. Plan: - Patient should be started on GDMT but in the setting of ongoing acute kidney injury and recovering shock, will hold GDMT for now - Removed fluid through CRRT/HD #NSTEMI type type I (embolic CO) vs. Type 2 (demand ischemia 2/2 shock) In the setting of demand ischemia. Troponin at the time of admission is 0.427, peaked at 20.920 and later down trended. EKG did not show any ST-T wave changes Plan: - Will continue telemetry monitoring - Compressed Gases Tester, Dr. Nayak is consulted and will follow the recommendations # Pulmonary embolism # DVT Patient was noted to have mismatch between end-tidal CO2 and arterial CO2, also noted to have increased oxygen requirements on the ventilator for which CTA chest was ordered on 03/28/2025 CTA chest was positive for multiple right lower pulmonary artery filling defects. Positive for left upper lobe pulmonary artery filling defects. No emboli in the main pulmonary artery segments. Pneumonia versus infarction in both lower lung zones. Echocardiogram did not show any RV strain, though patient noted to have elevated troponin with peak level at 20.920, later down trended. EKG did not show any signs suggestive of pulmonary embolism. Venous doppler of LLE showed extensive chronic nonocclusive DVT involving the common femoral left superficial femoral, popliteal, peroneal, posterior tibial and greater saphenous veins. Tubular structures in the right popliteal fossa 6.0 cm in left popliteal fossa Plan: - Patient cannot be anticoagulated as of now as patient had hemorrhagic infarcts in the brain and is high risk for bleeding and is currently have subtle subarachinoid hemorrhage - IVC filter is by Dr. Murillo on 03/31/2025 - Patient is not a candidate of mechanical thrombectomy as of now and does not seem to be in right heart failure #Hypertension (imporved) Patient noted to have history of hypertension but not using any medications before coming to the hospital BP initially elevated with SBP around 180-190. Now stabilized around 130s-140s. Plan - Held amloidipine - Continue carvedilol - Will continue to monitor blood pressures and titrate medications as needed #Agitation Patient was noted to be agitated at times recently and pulling out her IV access lines and vital sign monitors. Plan: -Continue Seroquel 25 PO qhs #Abdominal pain (resolved) #Umbilical hernia with incarcerated fat #Gallbladder sludge #Prominent pancreatic head #Right hilum mass #Right lower lobe mass #Left adrenal gland mass #Uterine fundal mass #Focal mucinosis Patient reported diffuse abdominal pain today (04/03/25). On exam, diffuse TTP noted mainly in RUQ and LUQ with no peritinic signs. Her LUQ could be due to the renal infarct that has been noted on recent CT. Lactate: 1.1 BUILD MANAGER was called while receiving HD. CTA abd&pelvis was ordered which showed gallbladder sludge and 22mm umbilical hernia with incarcerated fat and negative for any bowel ischemia. Patient was placed NPO and OG tube was inserted however later was pulled out by pt. General surgery Dr. Wood was consulted who recommended no surgical intervention at this time given current comorbidities and the fact that the hernia is most likely chronic. RUQ US was ordered due to concern for budd chiari which was negative for gallstones, however showed thickened gallbladder wall of 0.45cm and prominent pancreatic head of 3.5cm and moderate hepatomegaly. Below incidental findings were also noted in the CTA abd&pelvis: Mass contiguous with the right hilum 32 mm Mass in the right lower lobe 28 mm Nodular thickening left adrenal gland measuring 24 mm Atrophic anteverted uterus with calcified uterine fundal mass Pathology report on 04/06 for the biopsy of the left medial knee skin shows benign skin with changes suggesting focal mucinosis without signs of neoplasia Plan: - CTM - Consulted Radiation Oncology for suspected malignancy, appreciate recs - Patient will need to follow up with PCP upon discharge for the incidental findings listed above # Transaminitis (resolved) # Hyperbilirubinemia (resolved) #Hepatitis C At the time of admission patient was found to have bilirubin of 1.6, AST 146, ALT 61 ---> 8/, AST 76, ALT 74 --> /, AST 42 , ALT 65--> 04/07 AST 25, ALT 29 DDx: Fatty liver versus chronic liver disease versus viral hepatitis versus secondary to ongoing septic shock and possible suspected ischemia Tested positive for hepatitis C antibody. Liver ultrasound showed 10 mm gallstone, CBD enlarged 0.6 cm, liver 18.5 cm fatty infiltration Plan: - Will continue to monitor liver functions - Patient has to follow-up with special services coordinator on discharge on outpatient basis for follow-up on hepatitis C, currently does not suspect any active viral hepatitis # High anion gap metabolic acidosis (resolved) # Lactic acidosis (resolved) Likely in the setting of ongoing shock, likely due to sepsis. At the time of admission, anion gap is 19, lactate is 4.7 ---> 8/20, AG 22, Lactate 1.1 --> 04/03 AG 16, lactate 1.1 Anion gap improved on day of admission and lactic acidosis is slowly improving after starting CRRT. Plan: - Received CRRT on 03/27 and 03/28, HD on 03/29, 03/30, 03/31, 04/03, 04/04, 04/06 - Will continue to monitor lab values # Rhabdomyolysis (resolved) Patient happened to be on the floor lying down for 4 to 5 hours and also tested positive for methamphetamine on urine toxicology CK at the time of presentation is 9752 and received 2 L of fluid in the ED, as patient is fluid overloaded cannot give more fluids CK levels continue to trend down slowly to 1187. Plan: -CTM # Uncontrolled type 2 diabetes mellitus Patient is not following any primary care provider and not taking medications properly per patient's family. Blood glucose at the time of admission is 550 for which patient was given 10 units of lispro in the ED. The patient had high anion gap metabolic acidosis, tested negative for beta- hydroxybutyrate and DKA is ruled out. A1C: 13.6 Patient achieving appropriate glucose control with current regimen Plan: - Degludec 24 U QHS + ISS step 3 - Will titrate degludec according to FBS # Chronic right leg wound Likely from uncontrolled diabetes mellitus and venous congestion. On physical examination, noted 5 x 6 cm wound with well-healing granulation tissue. Arterial Doppler was ordered which showed no PAD in bilateral lower extremities Plan - Wound care consulted - Continue Vitamin C 250mg BID - Continue Zinc sulfate 220mg Qday x14 days (04/03-) - Nephro-Vu # History of asthma Unclear if patient is using inhalers or if she has recent exacerbations. Currently does not appear to be in any exacerbations Plan: -CTM Health Maintenance: Diet: cons carb GI prophylaxis: Protonix DVT prophylaxis: Held Heparin Antibiotics: Cefepime 2 g IV, Vancomycin (pharm to dose) CODE STATUS: Full Disposition: HAP management Case discussed with attending Dr. Toney and senior resident Dr. Arceo. Thomas Rand, DO PGY1
[2025-04-11] MEDS: INSULIN LISPRO (AdmeLOG) 1 UNIT/0.01 ML UNIT SC ×2 (12:11→20:14)
[2025-04-11 16:20] LABS: Partial Thromboplastin Time 26.5 Seconds (22.0-36.0)
[2025-04-11] MEDS: HEPARIN SOD INJ 5000 UNIT/ML VIAL 6700 UNIT IV (17:11)
[2025-04-11] MEDS: Heparin/D5w 25K 250 ML Ivpb 25,000 UNIT/250 ML BAG 15.059 UNIT IV (17:15)
--- NOTE | 2025-04-11 17:40 | PC.NURSE ---
Pt started on Heparin drip at 17:30. Pt in need of second IV. Attempted IV insertion and had second nurse attempt IV insertion. Unsuccessful. Called ICU charge to come place IV with ultrasound. ICU charge is unavailable at this time but will come when he can.
--- NOTE | 2025-04-11 19:00 | PC.NURSE ---
Came in at 1850 to do change of shift report with night nurse. Pt had pulled out IV that was running Heparin drip. IV tubing and phone tangled around patient. Avasure has been in room with patient. Paused Heparin drip at this time as we do not have IV access. Called ICU charge and made aware that we now need two IVs. They cannot come at this time but will come when available.
[2025-04-11] MEDS: ACETAMINOPHEN 325 MG TABLET 650 MG PO (19:13)
[2025-04-11] MEDS: INSULIN DEGLUDEC 5 UNIT/0.05 ML (PER 5 UNITS) 24 UNIT SC (20:13)
[2025-04-11] MEDS: ATORVASTATIN CALCIUM 20 MG TABLET 80 MG PO (20:13)
--- NOTE | 2025-04-11 20:59 | PC.NURSE ---
Pt pulled out her property assessment monitor, and trying to pulled out her IV,pt is on heparin drip, MD Chang made aware, new order to put bilateral wrist restraints on and ordered medicine to calm her down.
--- NOTE | 2025-04-11 23:10 | VVPN_ITS ---
Telemedicine visit statement This visit was conducted with the use of phone was obtained on 04/11/25 at 2310. Documentation for date of: 04/11/25 Subjective Subjective Interval history: Patient is in medsurg, no new symptoms reported. COntinues to be restless, agitated, looking for her mom, calling out names. Got a dose of Olanzapine. Virtual exam Vital Signs Temp Pulse Resp BP Pulse Ox O2 Del Method O2 Flow Rate 98.0 F 73 17 103/55 L 89 L Room Air 4 04/11/25 20:00 04/11/25 20:00 04/11/25 20:00 04/11/25 20:00 04/11/25 20:00 04/11/25 20:00 04/11/25 19:05 FiO2 40 04/05/25 04:00 Objective Labs 04/12/25 07:36 04/12/25 07:36 Labs: Laboratory Results - last 24 hr 04/11/25 04:08 WBC 10.4 RBC 3.21 L Hgb 9.4 L Hct 30.2 L MCV 94 MCH 29.3 MCHC 31.1 RDW Std Deviation 53.9 H Plt Count 467 H D Neut % (Auto) 61 Lymph % (Auto) 21 [place] % (Auto) 13 H Eos % (Auto) 2 Baso % (Auto) 1 Neut # (Auto) 6.4 Lymph # (Auto) 2.2 [place] # (Auto) 1.3 H Eos # (Auto) 0.2 Baso # (Auto) 0.1 Immature Gran # (Auto) 0.30 H Absolute Nucleated RBC 0.00 Immature Gran % 3 H Nucleated RBC % 0 APTT 26.5 Sodium 142 Potassium 3.5 D Chloride 101 Carbon Dioxide 27.3 Anion Gap 14 BUN 26 H Creatinine 2.4 H D Estim Creat Clear Calc 25.0 L eGFR 23 L BUN/Creatinine Ratio 11 L Glucose 116 H Calculated Osmolality 288 Calcium 9.3 Corrected Calcium 9.7 Phosphorus 4.0 Magnesium 1.6 Total Bilirubin 0.6 AST 21 ALT 14 Alkaline Phosphatase 67 Total Protein 6.3 Albumin 3.5 Globulin 2.8 Albumin/Globulin Ratio 1.3 Random Vancomycin 10.9 ABG Interpretation ABG results: 03/26/25 03/26/25 03/26/25 11:18 11:44 16:23 ABG pH 7.27 L Cancelled ABG pCO2 40 Cancelled ABG pO2 146 H Cancelled ABG HCO3 18 L Cancelled ABG O2 Saturation 100 H Cancelled ABG Base Excess -8 L Cancelled VBG pH 7.19 L VBG pCO2 48 VBG pO2 37 VBG Base Excess -10 L 03/26/25 03/27/25 03/27/25 18:43 00:17 03:42 ABG pH 7.16 L* D 7.24 L Cancelled ABG pCO2 58 H D 44 D Cancelled ABG pO2 68 L D 80 L Cancelled ABG HCO3 21 19 L Cancelled ABG O2 Saturation 90 L 96 Cancelled ABG Base Excess -9 L -8 L Cancelled VBG pH VBG pCO2 VBG pO2 VBG Base Excess 03/27/25 03/27/25 03/27/25 04:04 07:55 18:48 ABG pH 7.26 L 7.30 L ABG pCO2 43 37 ABG pO2 83 174 H D ABG HCO3 19 L 18 L ABG O2 Saturation 97 101 H ABG Base Excess -7 L -8 L VBG pH 7.21 L 7.31 L VBG pCO2 49 48 VBG pO2 54 52 VBG Base Excess -8 L -2 03/27/25 03/28/25 03/28/25 19:07 04:06 13:37 ABG pH 7.36 7.38 7.41 ABG pCO2 41 45 44 ABG pO2 79 L D 73 L 105 D ABG HCO3 23 27 H 27 H ABG O2 Saturation 97 96 99 H ABG Base Excess -2 1 2 VBG pH VBG pCO2 VBG pO2 VBG Base Excess 03/29/25 03/30/25 03/31/25 04:45 04:50 04:40 ABG pH 7.38 7.42 7.39 ABG pCO2 45 40 41 ABG pO2 72 L D 66 L 63 L ABG HCO3 27 H 26 25 ABG O2 Saturation 98 93 92 ABG Base Excess 1 2 0 VBG pH VBG pCO2 VBG pO2 VBG Base Excess 03/31/25 17:30 ABG pH 7.39 ABG pCO2 36 ABG pO2 80 L ABG HCO3 21 ABG O2 Saturation 96 ABG Base Excess -3 VBG pH VBG pCO2 VBG pO2 VBG Base Excess Assessment & Plan Problem List (1) Ischemic cerebrovascular accident (CVA): Status: Acute Assessment and plan: * started heparin infusion today as the repeat CT head did show improvement in the hge. (2) Uncontrolled diabetes mellitus: Status: Chronic Assessment and plan: Continue to check fingerstick glucose and follow sliding scale insulin per protocol (3) Pulmonary embolism: Status: Chronic Assessment and plan: She got the IVC filter placement Now, we started heparin infusion to keep the PTT at the lower limit of therapeutic range.
--- NOTE | 2025-04-11 23:33 | PC.NURSE ---
Pt been yelling, trying to kick staff. MD Chang made aware, no new order made at this time.
[2025-04-12] VITALS (12 sets, daily range): BP systolic 108–144; BP diastolic 60–72; PULSE 60–90; RESP 16–94; TEMP 36.1–37.1; O2SAT 90–96
[2025-04-12 00:51] LABS: Partial Thromboplastin Time 24.7 Seconds (22.0-36.0)
[2025-04-12] MEDS: HEPARIN SOD INJ 5000 UNIT/ML VIAL 6692 UNIT IVP (01:21)
[2025-04-12] MEDS: ACETAMINOPHEN 325 MG TABLET 650 MG PO ×3 (04:07→23:46)
--- NOTE | 2025-04-12 07:40 | PC.NURSE ---
Notified MD Arceo over the phone in regards to pts need for restrains and central line renewal. Per MD will renew orders this morning.
[2025-04-12 08:12] LABS: Basophils # (Auto) 0.1 Thou/mm3 (0.0-0.2); Basophils % (Auto) 1 % (0-2.5); Eosinophils # (Auto) 0.2 Thou/mm3 (0.0-0.5); Eosinophils % (Auto) 3 % (0-10); Hematocrit 30.7 % (36.0-46.0); Hemoglobin 9.5 g/dL (12.0-16.0); Immature Granulocytes Auto 0.31 Thou/mm3 (0.00-0.00); Lymphocytes # (Auto) 2.0 Thou/mm3 (1.0-4.8); Lymphocytes % (Auto) 23 % (10-50); Mean Corpuscular HGB Conc 30.9 g/dl (31.0-37.0); Mean Corpuscular Hemoglobin 29.3 pg (25.0-35.0); Mean Corpuscular Volume 95 fL (80-100); Monocytes # (Auto) 0.9 Thou/mm3 (0.0-0.8); Monocytes % (Auto) 10 % (0-12); Neutrophils # (Auto) 5.4 Thou/mm3 (1.8-7.7); Neutrophils % (Auto) 60 % (37-80); Nucleated Red Blood Cell # 0.00 Thou/mm3 (0.00-0.00); Nucleated Red Blood Cell % 0 /100 WBC (0); Platelet Count 463 Thou/mm3 (140-440); RDW Standard Deviation 55.5 fL (36.4-46.3); Red Blood Count 3.24 Miln/mm3 (4.00-5.20); White Blood Count 8.9 Thou/mm3 (3.6-11.0)
[2025-04-12 08:22] LABS: Alanine Aminotransferase 13 U/L (10-49); Albumin, Serum 3.5 gm/dL (3.5-5.0); Albumin/Globulin Ratio 1.2 (1.2-2.2); Alkaline Phosphatase 67 U/L (46-116); Anion Gap 12 (7-16); Aspartate Amino Transferase 22 U/L (0-34); BUN/Creatinine Ratio 13 Ratio (12-20); Bilirubin,Total 0.6 mg/dL (0.3-1.2); Blood Urea Nitrogen 29 mg/dL (9-23); Calcium 9.6 mg/dL (8.3-10.6); Calcium (Corrected) 10.0 mg/dL (8.5-10.1); Carbon Dioxide 24.5 mMol/L (20.0-31.0); Chloride 103 mMol/L (98-107); Creatinine (Component) 2.3 mg/dL (0.6-1.3); Estimated Creatinine Clearance 26.1 mL/min (>60); Globulin 2.9 gm/dL (2.3-3.5); Glucose 127 mg/dL (74-106); Magnesium 2.2 mg/dL (1.6-2.6); Osmolality,Calculated 285 (275-295); Phosphorous 4.3 mg/dL (2.4-5.1); Potassium 4.0 mMol/L (3.4-5.1); Sodium 139 mMol/L (136-145); Total Protein 6.4 gm/dL (5.7-8.2); Vancomycin,Random 17.3 mcg/mL; eGFR 24 See Note
[2025-04-12 08:32] LABS: Partial Thromboplastin Time 25.4 Seconds (22.0-36.0)
[2025-04-12] MEDS: Heparin/D5w 25K 250 ML Ivpb 25,000 UNIT/250 ML BAG 21.751 UNIT IV ×2 (08:53→22:11)
[2025-04-12] MEDS: HEPARIN SOD INJ 5000 UNIT/ML VIAL 6700 UNIT IVP (09:10)
[2025-04-12] MEDS: NICOTINE PATCH 21 MG/24 HR PATCH.TD24 TOP (09:15)
[2025-04-12] MEDS: ASCORBIC ACID 250 MG TABLET PO ×2 (09:15→21:44)
[2025-04-12] MEDS: ASPIRIN EC 81 MG TABEC PO (09:15)
[2025-04-12] MEDS: VIT B12/Vit C/FA (Nephrovite) TABLET 1 TAB PO (09:15)
[2025-04-12] MEDS: ZINC SULFATE 220 MG CAPSULE PO (09:16)
[2025-04-12] MEDS: SEVELAMER CARBONATE 800 MG TABLET PO ×2 (09:43→11:50)
--- NOTE | 2025-04-12 10:25 | ESPR_ITS ---
Documentation for date of: 04/12/25 Subjective Subjective Interval history: Interval history: Reason for consult: KINJAL, oligoanuria-needing CRRT History of present illness: (patient was intubated during this proposal lead writer's visit so the following narrative was constructed primarily via chart checking) Vashti Ross is a 59-year-old F with a PMH of diabetes, hypertension, asthma, substance use disorder (including opiates, probable methamphetamine, and marijuana) on methadone previously, and a chronic right leg wound brought in by ambulance from her home for altered mental status. Per ED rendition of EMS report, patient was noted to be altered with a respiratory rate of 4 en route to [facility]. A total of 8 mg of Narcan was administered at this time which initially improved mentation. Upon arrival, patient was noted to be somnolent and given an additional 0.4 mg of IV Narcan which made her more active but also more combative. She was also noted to be hypoxic and in respiratory distress upon arrival which led her to be put on BiPAP. During her agitated episode, patient endorsed that she hurt all over and loudly yelled that I gotta get out of here . She was eventually given 2 mg of IV Versed and put on restraints due to her continued agitation. Later, she was taken for an MRI which required removal of her BiPAP but upon removal a subsequent drop in O2 saturation to the low 90s was noted. It was deemed that her airway was not secure and the decision was made to intubate the patient. After the MRI was performed, patient was eventually admitted to the ICU. From family collateral, it was learned that patient's last known well time was 22:30 on 03/26. Patient had been found on the floor by her at 05:00 on 03/27 whereupon he tried to rouse her from her stupor, failed, called patient's sister to notify her about patient's condition, and finally left her to go to work. Patient's sister arrived around 09:00 and found patient still lying on the bathroom whereupon this proposal lead writer assumes she called for an ambulance to bring the patient to the ED. In the ED, vitals showed: BP 107/78 HR 94 RR 35 Temp 101.3 SpO2 98% on 15 L BiPAP ED Course: CBC showed high WBC 13.1 w/ neutrophilic predominance but was otherwise WNL. Coagulation panel showed high PT 13.3. ABG showed acidic pH 7.27, normal pCO2 40, high pO2 146, low HCO3 18. CMP showed low carbon dioxide 18.1, high anion gap 19, high creatinine 2.8, low eGFR 19, very high blood glucose 550, very high lactic acid 4.7, high bilirubin 1.6, high AST 146, high ALT 61, high total creatine kinase 9752, very high troponin I 0.427, high BNP 297, and high procalcitonin 43.23. UA showed 2+ protein, 3+ glucose, 1+ ketones, 3+ blood, high RBC 10, high WBC 112, 3+ calcium oxalate crystals, 4+ bacteria, normal random sodium 34.2, normal random potassium 26, and low random chloride 23.2. UDS was (+) for amphetamines/methamphetamines and marijuana. Serological studies were reactive for hepatitis C antibody. Imaging: Head CT showed findings most consistent with acute right frontal lobe infarcts. Brain MRI showed multiple embolic-type foci of restricted diffusion in the b ilateral occipital lobes, bilateral frontal lobes, and bilateral parietal lobes most consistent with acute infarcts. CXR showed bibasilar pneumonia and findings suspicious for mild associated heart failure. Renal US showed small kidneys with right renal cortical thinning as well as mild right and moderate left renal parenchymal scar formation. Carotid doppler study showed 20-40% stenosis of the right internal carotid artery and 0-10% stenosis of the left internal carotid artery. EKG was unremarkable. In the ED, patient was given Duoneb Precedex, doxycycline, etomidate, Lasix, regular insulin, ketamine, Versed, naloxone, 1 L LR bolus, Zemuron, and 1 L NS bolus. Patient was intubated due to low GCS and was admitted to the ICU. Nephrology was consulted due to patient's need for urgent hemodialysis. Neurology is also following. Interval History 04/05/2025: Patient was seen and examined at bedside this AM. No acute events overnight. Patient tolerating diet, adequate urine output and mentation is at baseline. Patient endorses improvement of abdominal pain. Patient underwent hemodialysis on 04/03/2025, RFT shows creatinine 3.7 and GFR 14 at this time. Will evaluate for next hemodialysis session tomorrow. Medical management to continue as per primary team. Renal function trending appropriately at this time. Avoid nephrotoxic agents, avoid excessive fluids and renally dose medications. 04/06/2025: patient seen and examined in HD, she was noted to be mildly agitated overnight (given quetiapine 25 overnight). She has no acute complaints, on exam she appears somnolent, per medications documented she did not have any pain meds given recently during time of interview and exam. SBP 150s Pos elevated to 5.5, BUN 43, Cr 4.0 from 3.7. 04/07/2025: Patient seen and examined at bedside, she was noted to be agitated and uncomfortable on exam reporting vague abdominal pain and pointing to her left medial thigh. On exam abdomen is soft nontender nondistended no rebound or guarding noted on exam of her patient appears to be in moderate distress secondary to pain. BUN 24 from 43 creatinine 3.0 from 4.0. Kidney function is improving. Etiology of abdominal pain versus left lower extremity pain is unknown she has several clots, management per primary team. Urine output is not documented as patient is wearing briefs however briefs noted to be wet on exam previously making good urine. Pedal pulses are bounding bilaterally. repeat head CT with Low-density acute infarctions now evident in the left frontoparietal left posterior parietal lobes not seen on the April 02, 2025 exam 04/12/2025 patient currently seen in telemetry. She remains agitated and uncomfortable. Labs and medications have been reviewed. Dialysis catheter by ICU team and did receive dialysis yesterday. Plans for transfer were made.. Spoke to the primary team. Review of Systems Review of Systems Narrative Review of Systems: Limited due to her mentation. Patient seems to be very restless and cannot complete review of systems Exam Vital Signs Temp Pulse Resp BP Pulse Ox O2 Del Method O2 Flow Rate 36.2 C 78 23 H 94/63 96 Room Air 3 04/14/25 12:12 04/14/25 12:12 04/14/25 12:12 04/14/25 12:12 04/14/25 12:12 04/14/25 12:04/13/25 22:47 FiO2 40 04/13/25 12:00 Narrative Exam General:awake and alert, patient appears very uncomfortable complaining of vague pain HEENT: Normocephalic, atraumatic, mucous membranes dry, Heart: Regular rate and rhythm, + murmurs. Lungs: CTAB Abdomen: Soft, nondistended, non tender, positive bowel sounds. ?No guarding or rebound tenderness. C/O for vague abdominal pain nonfocal Neurologic: alert and orientedx2, patient mildly agitated, noncombative. ?Right bereket neglect, unable to abduct right eye, PEERL, Extremities: wounds ++ Peripheral pulses are 2+ Objective Labs 04/14/25 22:23 04/14/25 04:45 Labs: Laboratory Results - last 24 hr 04/02/25 04/13/25 04/13/25 11:00 13:33 14:09 WBC RBC Hgb Hct MCV MCH MCHC RDW Std Deviation Plt Count Neut % (Auto) Lymph % (Auto) [place] % (Auto) Eos % (Auto) Baso % (Auto) Neut # (Auto) Lymph # (Auto) [place] # (Auto) Eos # (Auto) Baso # (Auto) Immature Gran # (Auto) Absolute Nucleated RBC Immature Gran % Nucleated RBC % PT INR APTT Sodium 140 Potassium 4.2 Chloride 103 Carbon Dioxide 23.6 Anion Gap 13 BUN 69 H Creatinine 2.5 H Estim Creat Clear Calc 24.1 L eGFR 22 L BUN/Creatinine Ratio 28 H Glucose 167 H Calculated Osmolality 303 H Calcium 8.8 Corrected Calcium 9.7 Phosphorus Magnesium Total Bilirubin 0.4 AST 14 ALT 8 L Alkaline Phosphatase 49 Total Protein 5.1 L Albumin 2.9 L Globulin 2.2 L Albumin/Globulin Ratio 1.3 CA 15-3 Antigen Cycl Citrul Peptide IgG <16 ANCA Screen NEGATIVE c-ANCA Titer TNP Anti-Proteinase 3 <1.0 p-ANCA Titer TNP Atypical p-ANCA Titer TNP Anti-Myeloperoxidase <1.0 Complement C3 142 Complement C4c 26 HCV RNA Quant (PCR) <15 NOT DETECTED HCV RNA (PCR) IU log10 <1.18 NOT DETECTED Blood Type AB Positive Antibody Screen NEGATIVE Crossmatch See Detail Blood Bank Wristband ID Yes 04/14/25 04/14/25 04/14/25 00:32 04:45 08:27 WBC 13.7 H RBC 2.70 L Hgb 8.0 L D 7.8 L 7.9 L Hct 24.0 L 23.6 L 23.7 L MCV 87 MCH 28.9 MCHC 33.1 RDW Std Deviation 50.9 H Plt Count 357 Neut % (Auto) 70 Lymph % (Auto) 18 [place] % (Auto) 7 Eos % (Auto) 1 Baso % (Auto) 0 Neut # (Auto) 9.6 H Lymph # (Auto) 2.5 [place] # (Auto) 1.0 H Eos # (Auto) 0.1 Baso # (Auto) 0.0 Immature Gran # (Auto) 0.58 H Absolute Nucleated RBC 0.00 Immature Gran % 4 H Nucleated RBC % 0 PT 13.0 H INR 1.2 APTT 23.8 D Sodium 140 Potassium 4.0 Chloride 102 Carbon Dioxide 24.3 Anion Gap 14 BUN 77 H Creatinine 2.3 H Estim Creat Clear Calc 26.2 L eGFR 24 L BUN/Creatinine Ratio 33 H Glucose 185 H Calculated Osmolality 307 H Calcium 9.0 Corrected Calcium 9.7 Phosphorus 3.6 Magnesium 1.4 L Total Bilirubin 0.6 AST 16 ALT 8 L Alkaline Phosphatase 50 Total Protein 5.6 L Albumin 3.1 L Globulin 2.5 Albumin/Globulin Ratio 1.2 CA 15-3 Antigen 7.6 Cycl Citrul Peptide IgG ANCA Screen c-ANCA Titer Anti-Proteinase 3 p-ANCA Titer Atypical p-ANCA Titer Anti-Myeloperoxidase Complement C3 Complement C4c HCV RNA Quant (PCR) HCV RNA (PCR) IU log10 Blood Type Antibody Screen Crossmatch Blood Bank Wristband ID ABG Interpretation ABG results: 03/26/25 03/26/25 03/26/25 11:18 11:44 16:23 ABG pH 7.27 L Cancelled ABG pCO2 40 Cancelled ABG pO2 146 H Cancelled ABG HCO3 18 L Cancelled ABG O2 Saturation 100 H Cancelled ABG Base Excess -8 L Cancelled VBG pH 7.19 L VBG pCO2 48 VBG pO2 37 VBG Base Excess -10 L 03/26/25 03/27/25 03/27/25 18:43 00:17 03:42 ABG pH 7.16 L* D 7.24 L Cancelled ABG pCO2 58 H D 44 D Cancelled ABG pO2 68 L D 80 L Cancelled ABG HCO3 21 19 L Cancelled ABG O2 Saturation 90 L 96 Cancelled ABG Base Excess -9 L -8 L Cancelled VBG pH VBG pCO2 VBG pO2 VBG Base Excess 03/27/25 03/27/25 03/27/25 04:04 07:55 18:48 ABG pH 7.26 L 7.30 L ABG pCO2 43 37 ABG pO2 83 174 H D ABG HCO3 19 L 18 L ABG O2 Saturation 97 101 H ABG Base Excess -7 L -8 L VBG pH 7.21 L 7.31 L VBG pCO2 49 48 VBG pO2 54 52 VBG Base Excess -8 L -2 03/27/25 03/28/25 03/28/25 19:07 04:06 13:37 ABG pH 7.36 7.38 7.41 ABG pCO2 41 45 44 ABG pO2 79 L D 73 L 105 D ABG HCO3 23 27 H 27 H ABG O2 Saturation 97 96 99 H ABG Base Excess -2 1 2 VBG pH VBG pCO2 VBG pO2 VBG Base Excess 03/29/25 03/30/25 03/31/25 04:45 04:50 04:40 ABG pH 7.38 7.42 7.39 ABG pCO2 45 40 41 ABG pO2 72 L D 66 L 63 L ABG HCO3 27 H 26 25 ABG O2 Saturation 98 93 92 ABG Base Excess 1 2 0 VBG pH VBG pCO2 VBG pO2 VBG Base Excess 03/31/25 04/13/25 17:30 13:33 ABG pH 7.39 ABG pCO2 36 ABG pO2 80 L ABG HCO3 21 ABG O2 Saturation 96 ABG Base Excess -3 VBG pH 7.49 VBG pCO2 32 L VBG pO2 68 H VBG Base Excess 1 Assessment & Plan Assessment and plan (1) Ischemic cerebrovascular accident (CVA): Status: Acute (2) Uncontrolled diabetes mellitus: Status: Chronic (3) Pneumonia: Status: Acute Additional Assessment & Plan Additional Plan: Vashti Ross is a 59-year-old F with a PMH of diabetes, hypertension, asthma, substance use disorder (including opiates, probable methamphetamine, and marijuana) on methadone previously, and a chronic right leg wound brought in by ambulance from her home for altered mental status. Patient was intubated due to low GCS and was admitted to the ICU. echo with tricuspid vegitations and EF 40- 45%, pt with extensive PE and extensive non occlusive DVT of LLE, SYLVIE revealed atrial septal aneurysm, likely source of embolic strokes in the setting of DVT. per cards, holding off on anticoagulation due to concern for hemorrhagic conversion of infarct. s/p IVC filter, found to have borderline nephrotic range proteinuria, CTA AP without new intrabdominal findings, again patient has vague abdominal pain. repeat ct head with new infarcts of the L frontoparietal and L posterior parietal lobes.no HD today. KINJAL on CKD Stage IV - improving Nephrotic range proteinuria Secondary to Ischemic ATN Rhabdomyolysis DDx: multifactorial etiologies including intravascular depletion, diabetic nephropathy, blood pressure derangements, glomerular diseases, sepsis-induced ATN, rhabdomyolysis, cardiorenal syndrome, crystalline nephropathy associated with oxalate, or atheroembolic disease - Admission creatinine 2.8 (baseline: unknown), eGFR 19 - Possible kidney damage from elevated blood glucose 550 on admission, in addition to CK 9752 and U tox positive for amphetamines/methamphetamines - HD: 03/28 CRRT, HD 03/29, 03/30, 03/31, 04/03, 04/04, 04/06 - RFT: (04/04) BUN 41, CR 4.4 and GFR 11 --> (04/05) BUN 37, Cr 2.7 and GFR 14--> 04/06 BUN 43, Cr 4.0--> 04/07 BUN 24, Cr 3.0 Plan: - HD today if dialysis catheter placed. Will discuss with family regarding goals of care. Not sure if patient can set an outpatient dialysis unit 3 times a week for 3 hours. - Nephrology consulted for worsening CKD while inpatient - Avoid nephrotoxic agents, avoid excessive fluids and renally dose medications. - Hold any KRISSY/ARB/diuretics as KINJAL causing worsening of CKD Other medical problems: CVA- Subarachnoid hemorrhage and multiple acute infarcts In the setting of History of PE Extensive nonocclusive DVT LLE Secondary to Hypercoagulable state Antiphospholipid syndrome, pending rule out - Patient has a hx of miscarriages. Never got coagulation workup - CTA Positive for multiple right lower lobe pulmonary artery and left upper lobe pulmonary artery emboli - Of note, multiple thrombi, lung, spleen, LE, - CThead 04/07 with Low-density acute infarctions now evident in the left frontoparietal left posterior parietal lobes not seen on the April 02, 2025 exam Plan: - Primary team consulted Dr Krishna for hematology workup - s/p IVC filter in place HF mrEF 40 -45% History of Endocarditis Atrial aneurysm NSTEMI, likely type 2 demand ischemia - echo with EF 40 -45% - TTE with tricuspid vegitations - SYLVIE with Atrial septal aneurysm present and bubble study positive for PFO especially with increased right atrial pressure Splenic infarct with thrombus in upper lobe splenic arteries Acute mesenteric ischemia vs ischemic colitis - 04/03 pt has diffuse abdominal pain out of proportion to exam. - 04/07 pt reports nonfocal abdominal pain, no rebound no guarding. T2DM Leukocytosis and AHRF 2/2 PNA - improved Septic shock- resolved, off pressors, Left toes gangreen vs Atheroembolism of left lower extremity toes agitation - managment per primary team Quality - progress note Quality Measures Quality Measures: VTE prophylaxis Reason for Continued Stay Reason for Continued Stay: further monitoring
--- NOTE | 2025-04-12 11:12 | ESPR_ITS ---
<Statement entered by Kentrell Hendricks MD - 04/14/25 08:09> Patient was examined and case was reviewed with team including attending physician. Note reviewed, I agree with most of its contents and agree with the patient's care. Kentrell Hendricks MD PGY-2 <Statement entered by Joe Toney MD - 04/13/25 17:05> I attest that I was physically present for the evaluation, physical examination, lab and imaging review of the patient with the residents. I discussed the case with the residents and agree with the findings and plans of care as documented above. Overnight, patient became agitated and received olanzapine and placed restraints.. At bedside this morning, patient appears calmer, alert and oriented x 2, able to answer questions and commands. Was moving all 4 extremities. She has been started on heparin drip since yesterday, CBC is stable. Discussed with neurology, recommended to obtain CT brain tomorrow to evaluate for any hemorrhage. Patient is planned for kidney biopsy on Sunday. Also awaiting oncology recommendations. Joe Toney MD Documentation for date of: 04/12/25 Subjective Subjective Interval history: 04/12/25: Overnight patient was noted to be agitated at times, Olanzapine x1 was given with order for soft restraints. Otherwise no acute events overnight and vital signs remained stable. Patient was examined and evaluated at bedside this morning. Patient was resting comfortably at bedside with at bedside who was again updated in regards to patient's current active problems and plan. Patient was started on heparin gtt yesterday, we will repeat brain CT w/o contrast tomorrow to evaluate for any potential brain hemorrhage. On Sunday patient will undergo kidney biopsy to evaluate for any underlying pathologies such as RCC. Exam Vital Signs Temp Pulse Resp BP Pulse Ox O2 Del Method O2 Flow Rate 97.0 F 79 19 122/72 93 L Nasal Cannula 2 04/12/25 08:00 04/12/25 10:02 04/12/25 10:02 04/12/25 09:15 04/12/25 10:02 04/12/25 08:00 04/12/25 08:00 FiO2 40 04/05/25 04:00 Narrative Exam General: A/O x2. Resting comfortably. Agitated at times. HEENT: Normocephalic, atraumatic, mucous membranes moist. Heart: Regular rate and rhythm, no murmurs. Lungs: Clear to auscultation with no wheezing or crackles. Abdomen: Soft, mildly distended, mild discomfort to palpation throughout. No guarding or rebound tenderness. Neurologic: Bilateral pupils are equal and reacting to light. Able to move all extremities. Muscle strength 4/5 throughout. Extremities: Noted surgical scar on the left knee likely from TKR. Noted chronic wound of 5 x 6 cm in the right lower extremity. Noted tissue pressure injuries on the upper lateral right and left thigh. Also noted infected area in the right toe and left 1st and 5th toes. Skin: No rash or ecchymoses. Objective Labs 04/12/25 07:36 04/12/25 07:36 Labs: Laboratory Results - last 24 hr 04/11/25 04/11/25 04/12/25 04:08 23:49 07:36 WBC 8.9 RBC 3.24 L Hgb 9.5 L Hct 30.7 L MCV 95 MCH 29.3 MCHC 30.9 L RDW Std Deviation 55.5 H Plt Count 463 H Neut % (Auto) 60 Lymph % (Auto) 23 [place] % (Auto) 10 Eos % (Auto) 3 Baso % (Auto) 1 Neut # (Auto) 5.4 Lymph # (Auto) 2.0 [place] # (Auto) 0.9 H Eos # (Auto) 0.2 Baso # (Auto) 0.1 Immature Gran # (Auto) 0.31 H Absolute Nucleated RBC 0.00 Immature Gran % 4 H Nucleated RBC % 0 APTT 26.5 24.7 25.4 Sodium 139 Potassium 4.0 D Chloride 103 Carbon Dioxide 24.5 Anion Gap 12 BUN 29 H Creatinine 2.3 H Estim Creat Clear Calc 26.1 L eGFR 24 L BUN/Creatinine Ratio 13 Glucose 127 H Calculated Osmolality 285 Calcium 9.6 Corrected Calcium 10.0 Phosphorus 4.3 Magnesium 2.2 Total Bilirubin 0.6 AST 22 ALT 13 Alkaline Phosphatase 67 Total Protein 6.4 Albumin 3.5 Globulin 2.9 Albumin/Globulin Ratio 1.2 Random Vancomycin 17.3 ABG Interpretation ABG results: 03/26/25 03/26/25 03/26/25 11:18 11:44 16:23 ABG pH 7.27 L Cancelled ABG pCO2 40 Cancelled ABG pO2 146 H Cancelled ABG HCO3 18 L Cancelled ABG O2 Saturation 100 H Cancelled ABG Base Excess -8 L Cancelled VBG pH 7.19 L VBG pCO2 48 VBG pO2 37 VBG Base Excess -10 L 03/26/25 03/27/25 03/27/25 18:43 00:17 03:42 ABG pH 7.16 L* D 7.24 L Cancelled ABG pCO2 58 H D 44 D Cancelled ABG pO2 68 L D 80 L Cancelled ABG HCO3 21 19 L Cancelled ABG O2 Saturation 90 L 96 Cancelled ABG Base Excess -9 L -8 L Cancelled VBG pH VBG pCO2 VBG pO2 VBG Base Excess 03/27/25 03/27/25 03/27/25 04:04 07:55 18:48 ABG pH 7.26 L 7.30 L ABG pCO2 43 37 ABG pO2 83 174 H D ABG HCO3 19 L 18 L ABG O2 Saturation 97 101 H ABG Base Excess -7 L -8 L VBG pH 7.21 L 7.31 L VBG pCO2 49 48 VBG pO2 54 52 VBG Base Excess -8 L -2 03/27/25 03/28/25 03/28/25 19:07 04:06 13:37 ABG pH 7.36 7.38 7.41 ABG pCO2 41 45 44 ABG pO2 79 L D 73 L 105 D ABG HCO3 23 27 H 27 H ABG O2 Saturation 97 96 99 H ABG Base Excess -2 1 2 VBG pH VBG pCO2 VBG pO2 VBG Base Excess 03/29/25 03/30/25 03/31/25 04:45 04:50 04:40 ABG pH 7.38 7.42 7.39 ABG pCO2 45 40 41 ABG pO2 72 L D 66 L 63 L ABG HCO3 27 H 26 25 ABG O2 Saturation 98 93 92 ABG Base Excess 1 2 0 VBG pH VBG pCO2 VBG pO2 VBG Base Excess 03/31/25 17:30 ABG pH 7.39 ABG pCO2 36 ABG pO2 80 L ABG HCO3 21 ABG O2 Saturation 96 ABG Base Excess -3 VBG pH VBG pCO2 VBG pO2 VBG Base Excess Quality Measures Quality Measures VTE prophylaxis Assessment & Plan Assessment Current Active Medications: Generic Name Dose Route Start Last Admin Trade Name Freq PRN Reason Stop Dose Admin Acetaminophen 650 mg 04/01/25 09:12 04/12/25 09:40 Acetaminophen 325 Mg Tablet PO 04/25/25 18:57 650 mg Q4HR PRN Administration Pain Scale 1-3 OR fever >100.4 Albuterol/Ipratropium 3 ml 04/11/25 10:04 Albuterol/Ipratropium (Duoneb) Rt Jennifer 3 Ml Nebu INH 04/26/25 00:59 Q6HRRT PRN SHORTNESS OF BREATH Amlodipine Besylate 10 mg 04/02/25 09:00 04/12/25 09:15 Amlodipine Besylate 5 Mg Tablet PO 05/02/25 08:59 10 mg QDAY CRIS Administration Ascorbic Acid 250 mg 04/03/25 12:00 04/12/25 09:15 Ascorbic Acid 250 Mg Tablet PO 05/03/25 11:59 250 mg BID CRIS Administration Aspirin 81 mg 04/01/25 09:30 04/12/25 09:15 Aspirin Ec 81 Mg Tabec PO 05/01/25 09:29 81 mg QDAY CRIS Administration Atorvastatin Calcium 80 mg 03/26/25 21:00 04/11/25 20:13 Atorvastatin Calcium 20 Mg Tablet PO 04/25/25 20:59 80 mg HS CRIS Administration Carvedilol 6.25 mg 04/01/25 17:30 04/12/25 09:15 Carvedilol 3.125 Mg Tablet PO 05/01/25 17:29 6.25 mg BIDWM CRIS Administration Dextrose 25 ml 03/26/25 20:20 Dextrose 50%-Water Inj 50 Ml Syringe IV 04/25/25 20:19 Q15MIN PRN BG 50-70 responsive npo pt Dextrose 50 ml 03/26/25 20:20 Dextrose 50%-Water Inj 50 Ml Syringe IV 04/25/25 20:19 Q15MIN PRN BG <50 OR BG <70 & pt unresponsive Gabapentin 100 mg 04/06/25 22:00 04/12/25 07:09 Gabapentin 100 Mg Capsule PO 05/06/25 21:59 Not Given TID CRIS Glucagon 1 mg 03/26/25 20:20 Glucagon Inj 1 Mg Vial IM Q15MIN PRN BG <70, and no IV access Heparin Sodium (Porcine) 3,000 unit 04/09/25 17:10 Heparin Sod Inj 1000 Unit/Ml Vial 10 Ml INDWELLCAT 04/23/25 17:09 X1 PRN DIALYSIS Hydralazine HCl 25 mg 04/01/25 14:00 04/12/25 07:09 Hydralazine Hcl 25 Mg Tablet PO 05/01/25 13:59 Not Given TID CRIS Heparin Sodium/Dextrose 25,000 unit in 250 mls @ 15.059 mls/hr 04/11/25 16:45 04/12/25 08:53 Heparin In D5w Ivpb IV 04/25/25 16:44 26 units/kg/hr .[id number] CRIS 21.751 mls/hr Administration Protocol 18 UNITS/KG/HR Insulin Degludec 24 unit 04/01/25 21:00 04/11/25 20:13 Insulin Degludec 5 Unit/0.05 Ml (Per 5 Units) SC 05/01/25 20:59 24 unit HS [facility] Administration Insulin Human Lispro 0 unit 04/04/25 21:00 04/12/25 09:44 Insulin Lispro (Admelog) 1 Unit/0.01 Ml Unit SC 05/04/25 20:59 Not Given ACHS [facility] Protocol Labetalol HCl 10 mg 04/01/25 11:16 Labetalol Inj 5 Mg/Ml Vial 20 Ml IVP 05/01/25 11:29 Q4HR PRN if SBP>140 Nicotine 21 mg 04/05/25 10:45 04/12/25 09:15 Nicotine Patch 21 Mg/24 Hr Patch.Td24 TOP 05/05/25 10:44 21 mg QDAY [facility] Administration Pharmacy Consult 1 each 04/04/25 12:30 Vancomycin Pharmacy To Dose 1 Each Each IV 05/04/25 12:29 QDAY PRN PROTOCOL Quetiapine Fumarate 25 mg 04/08/25 21:00 04/11/25 20:13 Quetiapine Fumarate 25 Mg Tablet PO 05/08/25 20:59 25 mg HS [facility] Administration Sevelamer Carbonate 800 mg 04/05/25 08:00 04/12/25 09:43 Sevelamer Carbonate 800 Mg Tablet PO 05/05/25 07:59 800 mg TIDWM [facility] Administration Vitamin B Complex/Vit C/Folic Acid 1 tab 04/03/25 12:00 04/12/25 09:15 Vit B12/Vit C/Fa (Nephrovite) Tablet PO 05/03/25 11:59 1 tab QDAY CRIS Administration Zinc Sulfate 220 mg 04/03/25 12:00 04/12/25 09:16 Zinc Sulfate 220 Mg Capsule PO 04/17/25 11:59 220 mg QDAY CRIS Administration Plan 59F with PMH of DM, HTN, asthma, drug use disorder, and a chronic right leg wound was brought to the ED after being found unresponsive (responsive after Narcan administration) at home where she was found to have acute encephalopathy with low GCS requiring intubation and ICU admission for ventilator support, pressor support for likely septic shock, and CRRT. Patient found to have multi embolic disease involving multiple systems including brain and left distal extremity, acute and failure with the cause likely renal emboli. #Acute encephalopathy, multifactorial, related to metabolic derangement, substance use, and embolic CVA (Resolving) #Acute Multiple embolic type foci occipital lobes, bilateral frontal and bilateral parietal lobe #Atrial septal aneurysm #PFO #Subarachnoid hemorrhage #Endocarditis - r/o #Tricuspid valve vegetation - r/o -Patient came in with altered sensorium and head CT at the time showed multiple bilateral infarcts, likely embolic. Patient was weaned off sedation and extubated on 03/31/2025, tolerated well. Currently, patient is improving and is alert and oriented. Patient has extensive DVT in the left lower extremity also noted to have pulmonary embolism, patient might be having embolism through PFO and reaching the systemic circulation. -TTE showed normal size left ventricle with mild apical and global hypokinesis LVEF 40-45%. Evidence of Tricuspid valve vegetation suggestive of endocarditis. The RV is normal in size. The right ventricular systolic function is mildly decreased. Aortic valve sclerosis thickened wih mild aortic regurgitation. Mitral valve thickening with mild mitral regurgitation. -SYLVIE (03/30/25) confirmed no vegetations. Noted to have atrial aneurysm bulging into left atrium, bubble study done showed PFO -EEG from 04/02/25 shows diffuse slowing suggestive of a diffuse encephalopathy of vascular origin. -Per neurology team, given PE and small PFO, PE could be the cause of embolism vs endocardititis but less likely as negative SYLVIE for vegation. Although leukocytosis noted, less likely secondary to endocarditis in origin and more likely secondary to ischemia vs less likely increased coagulopathy as no previous history of DVTs. -Hematology Dr. Krishna was consulted who agreed with the current plan. -MR venogram negative for any thrombus -New blood cx negative -Repeat brain CT (04/11/25) shows Acute infarction in left middle cerebral artery distribution, left frontal, parietal, left occipital lobes. Improvement in subarachnoid hemorrhage, minimal residual in right frontal convexity. - Hypercoagulable studies: Positive cryoprecipitate but low < 1%, 1/2 samples positive for lupus anticoagulant. Weakly positive for hexagonal phase confirm test. Positive EFFIE. negative anti double-stranded. Negative antiphopholipid panel, Normal protein C and S activity, normal antithrombin III, Negative Factor V liden, elevated alpha 1,2 globulins, low B1 globulin, negative factor II Plan: - Discussed with patient and their family members regarding the current plan of starting anticoagulation medication if cleared by neurology team. Explained to patient and their family members regarding risks and benefits of starting anticoagulation. Explained to them that if we don't start anticoagulation her PE and DVT may have negative consequences (ie. worsening of her current condition) and she may be at risk for more thromboses and on the other hand, if we do start these medications she may be at risk for new brain hemorrhage, worsening of current hemorrhage or bleedings else where in her body. Patient and family understands the risks and benefits and agree with the plan of starting anticoagulation if prompted by the neurology team. - Start heparin gtt with PTT at lower therapeutic level, per neurology recs - Repeat brain CT without contrast on Sunday (04/13/25) - Avoid sedative medication, monitor for any mental status changes - Will continue atorvastatin and Aspirin for now - IVC filter placement is done on 03/31/2025 to prevent further embolic strokes through PFO from DVT - No need of urgent PFO closure as per Dr. Nayak. - PT and speech therapy - Pending the rest of hypercoaugulable workup: ANCA, antiproteinase 3, anti myeloproxidase, complement C3 and C4 #Septic shock (resolved) #Hospital-Acquired PNA (Improved) # UTI (Improved) At the time of admission, patient was noted to have bilateral lower extremity edema and bilateral diffuse inspiratory crackles -possible heart failure in the setting of methamphetamine abuse, diabetes, hypertension. Also noted to have temperature of 101.8 ?F at the time of admission, likely due to some ongoing infection. Fits into 2/3 qsofa criteria. Noted to have GCS less than 15 and respiratory rate 35/min. Suspecting sepsis worsening the underlying heart failure resulting in suspected possible combined septic and cardiogenic shock. DDx: Combined cardiogenic and septic shock Patient was started on Levophed and weaned off completely on 03/30/2025 WBC on admission 13.1, procalcitonin 43.23. UA showed turbid urine with 2+ proteinuria, 3+ glucosuria, 112 WBC, 4+ bacteria suggestive of UTI. Urine culture positive for E.coli. Leukocytosis now resolved to 8.9. Patient remains afebrile. Initially patient was started on vancomycin and Zosyn [03/27-03/30], discontinued Vanco and Zosyn, Started on Rocephin (03/30-04/04) Blood cx and sputum culture negative Plan: - Continue Vancomycin and cefepime 2g to cover for HAP for another 2 days. To end on 04/13/25. (04/04/25-) - Will continue to monitor vitals # Acute hypoxic respiratory failure (resolving) # Respiratory acidosis (resolved) Per patient family, patient does not have any previous history of respiratory problems and is not using any inhalers. Not a smoker. ABG at the time of admission showed pH 7.16, pCO2 58, pO2 68, FiO2 100%. Repeat ABG done on 03/27/2024 showed pH 7.3, pCO2 37, bicarb 18. Repeat ABGs done after 03/28/2025 is within normal limits. CTA chest Positive for multiple right lower pulmonary artery filling defects. Positive for left upper lobe pulmonary artery filling defects. No emboli in the main pulmonary artery segments. Pneumonia versus infarction in both lower lung zones. CXR shows bibasilar pneumonia DDx: Sepsis, acute encephalopathy, pulmonary edema, pulmonary embolism, combined. Patient was intubated, sedated and placed on mechanical ventilator on 03/26 and extubated on 03/31. Though patient had pulmonary embolism, patient oxygen needs is coming down. CTA abd&pelvis on 04/04 still reveals pneumonia at the left base Plan: - Continue ABx as above - Will continue oxygen as needed for now. #KINJAL (Improving) #Acute renal failure likely 2/2 septic shock vs. renal emboli vs. rhabdomyolysis (improved) #Nephrotic range proteinuria Patient does not follow-up any primary care doctor and unsure of her baseline kidney functions. Patient noted to have decreased urine output and oliguric which have improved Creatinine at the time of admission is 2.8 --> 03/30, 2.4 --> 03/31, 3.1 --> 04/01, 4.9 --> 04/03, 5.5--> 04/07 3.0-->04/09, 3.0-->04/11 2.4--> 04/12 2.3 Possible kidney damage from elevated blood glucose 550 on admission, in addition to CK 9752 and U tox positive for amphetamines/methamphetamines DDx: multifactorial etiologies including intravascular depletion, diabetic nephropathy, blood pressure derangements, glomerular diseases, sepsis-induced ATN, rhabdomyolysis, cardiorenal syndrome, crystalline nephropathy associated with oxalate, or atheroembolic disease Cr improving wth electrolytes in normal ranges. No need for HD at this time. Negative blood cx x2 Plan: - Patient did not tolerate permanent cath placement (04/07/25). Recommended by radiology team to perform this under anesthesia; however, given current active medical problems we predict poor outcomes if patient undergoes anesthesia at this time. Discussed the case with the nephrology team, as they recommend permanent catheter placement for dialysis that patient will need for upon discharge. - IR refused repeating permanent catheter placement given patient's inadequate sedation during the last attempt as she was not cooperative. - Temporary HD cath was placed by ICU team (04/09/25). Patient will need a permanent cath placement prior to discharge, as this can be done on Sunday by IR here at [place] or transfer to [facility]. Though, kidney function is improving and she is making urine. We will reassess the need for perm cath at a later time again (pt has high risk of potentially pulling out catheter in agitated state). - holding HD given pt renal function is improving. - IV albumin prn - Held IV Bumex - Will continue to monitor urine output - Monitor renal panel - Avoid nephrotoxic agents (aminoglycosides, NSAIDs, radiographic contrast) - Adjust medication dosing based on patient's impaired renal function - Hold any KRISSY/ARB/diuretics - HD: 03/28 CRRT, HD 03/29, 03/30, 03/31, 04/03, 04/04, 04/06, 04/09 labs unable to be drawn 2/2 agitation and no IV access - Hold getting CT guided renal biopsy, to assess proteinuria - Started Sevelamer 800 mg TID with meals for hyperphosphatemia despite HD yesterday - Plan to do kidney biopsy on Saturday 04/14. Recommended by Dr. Rodrigues. # HFrEF, EF 40 to 45% #Substance Use Disorder Unsure whether patient is regular methamphetamine user, as family members is not aware of the use. Patient also have severe uncontrolled diabetes mellitus, which could also contribute to the ischemic heart disease and CHF. Plan: - Patient should be started on GDMT but in the setting of ongoing acute kidney injury and recovering shock, will hold GDMT for now - Removed fluid through CRRT/HD #NSTEMI type type I (embolic DE) vs. Type 2 (demand ischemia 2/2 shock) In the setting of demand ischemia. Troponin at the time of admission is 0.427, peaked at 20.920 and later down trended. EKG did not show any ST-T wave changes Plan: - Will continue telemetry monitoring - Surgical Scrub Technician, Dr. Nayak is consulted and will follow the recommendations # Pulmonary embolism # DVT Patient was noted to have mismatch between end-tidal CO2 and arterial CO2, also noted to have increased oxygen requirements on the ventilator for which CTA chest was ordered on 03/28/2025 CTA chest was positive for multiple right lower pulmonary artery filling defects. Positive for left upper lobe pulmonary artery filling defects. No emboli in the main pulmonary artery segments. Pneumonia versus infarction in both lower lung zones. Echocardiogram did not show any RV strain, though patient noted to have elevated troponin with peak level at 20.920, later down trended. EKG did not show any signs suggestive of pulmonary embolism. Venous doppler of LLE showed extensive chronic nonocclusive DVT involving the common femoral left superficial femoral, popliteal, peroneal, posterior tibial and greater saphenous veins. Tubular structures in the right popliteal fossa 6.0 cm in left popliteal fossa Plan: - Start heparin gtt with PTT at lower therapeutic level, per neurology recs - IVC filter is by Dr. Murillo on 03/31/2025 - Patient is not a candidate of mechanical thrombectomy as of now and does not seem to be in right heart failure #Hypertension (imporved) Patient noted to have history of hypertension but not using any medications before coming to the hospital BP initially elevated with SBP around 180-190. Now stabilized around 130s-140s. Plan - Held amloidipine - Continue carvedilol - Will continue to monitor blood pressures and titrate medications as needed #Agitation Patient was noted to be agitated at times recently and pulling out her IV access lines and vital sign monitors. Plan: - Continue Seroquel 25 PO qhs - Apply soft restraints if medically indicated #Abdominal pain (resolved) #Umbilical hernia with incarcerated fat #Gallbladder sludge #Prominent pancreatic head #Right hilum mass #Right lower lobe mass #Left adrenal gland mass #Uterine fundal mass #Focal mucinosis Patient reported diffuse abdominal pain today (04/03/25). On exam, diffuse TTP noted mainly in RUQ and LUQ with no peritinic signs. Her LUQ could be due to the renal infarct that has been noted on recent CT. Lactate: 1.1 LOCOMOTIVE INSPECTOR was called while receiving HD. CTA abd&pelvis was ordered which showed gallbladder sludge and 22mm umbilical hernia with incarcerated fat and negative for any bowel ischemia. Patient was placed NPO and OG tube was inserted however later was pulled out by pt. General surgery Dr. Wood was consulted who recommended no surgical intervention at this time given current comorbidities and the fact that the hernia is most likely chronic. RUQ US was ordered due to concern for budd chiari which was negative for gallstones, however showed thickened gallbladder wall of 0.45cm and prominent pancreatic head of 3.5cm and moderate hepatomegaly. Below incidental findings were also noted in the CTA abd&pelvis: Mass contiguous with the right hilum 32 mm Mass in the right lower lobe 28 mm Nodular thickening left adrenal gland measuring 24 mm Atrophic anteverted uterus with calcified uterine fundal mass Pathology report on 04/06 for the biopsy of the left medial knee skin shows benign skin with changes suggesting focal mucinosis without signs of neoplasia Plan: - CTM - Consulted Radiation Oncology for suspected malignancy, appreciate recs - Patient will need to follow up with PCP upon discharge for the incidental findings listed above # Transaminitis (resolved) # Hyperbilirubinemia (resolved) #Hepatitis C At the time of admission patient was found to have bilirubin of 1.6, AST 146, ALT 61 ---> 8/, AST 76, ALT 74 --> 04/03, AST 42 , ALT 65--> 04/07 AST 25, ALT 29 DDx: Fatty liver versus chronic liver disease versus viral hepatitis versus secondary to ongoing septic shock and possible suspected ischemia Tested positive for hepatitis C antibody. Liver ultrasound showed 10 mm gallstone, CBD enlarged 0.6 cm, liver 18.5 cm fatty infiltration Plan: - Patient has to follow-up with marking machine tender on discharge on outpatient basis for follow-up on hepatitis C, currently does not suspect any active viral hepatitis # High anion gap metabolic acidosis (resolved) # Lactic acidosis (resolved) Likely in the setting of ongoing shock, likely due to sepsis. At the time of admission, anion gap is 19, lactate is 4.7 ---> 04/01, AG 22, Lactate 1.1 --> 04/03 AG 16, lactate 1.1 Anion gap improved on day of admission and lactic acidosis is slowly improving after starting CRRT. Plan: - Received CRRT on 03/27 and 03/28, HD on 03/29, 03/30, 03/31, 04/03, 04/04, 04/06 - Will continue to monitor lab values # Rhabdomyolysis (resolved) Patient happened to be on the floor lying down for 4 to 5 hours and also tested positive for methamphetamine on urine toxicology CK at the time of presentation is 9752 and received 2 L of fluid in the ED, as patient is fluid overloaded cannot give more fluids CK levels continue to trend down slowly to 1187. Plan: -CTM # Uncontrolled type 2 diabetes mellitus Patient is not following any primary care provider and not taking medications properly per patient's family. Blood glucose at the time of admission is 550 for which patient was given 10 units of lispro in the ED. The patient had high anion gap metabolic acidosis, tested negative for beta- hydroxybutyrate and DKA is ruled out. A1C: 13.6 Patient achieving appropriate glucose control with current regimen Plan: - Degludec 24 U QHS + ISS step 3 - Will titrate degludec according to FBS # Chronic right leg wound Likely from uncontrolled diabetes mellitus and venous congestion. On physical examination, noted 5 x 6 cm wound with well-healing granulation tissue. Arterial Doppler was ordered which showed no PAD in bilateral lower extremities Plan - Wound care consulted - Continue Vitamin C 250mg BID - Continue Zinc sulfate 220mg Qday x14 days (04/03-) - Nephro-Vu # History of asthma Unclear if patient is using inhalers or if she has recent exacerbations. Currently does not appear to be in any exacerbations Plan: -CTM Health Maintenance: Diet: cons carb GI prophylaxis: Protonix DVT prophylaxis: Heparin gtt Antibiotics: Cefepime 2 g IV, Vancomycin (pharm to dose) CODE STATUS: Full Disposition: HAP management Case discussed with attending Dr. Toney and senior resident Dr. Arceo. Thomas Rand DO PGY1
[2025-04-12] MEDS: GABAPENTIN 100 MG CAPSULE PO ×2 (14:34→21:44)
[2025-04-12 16:51] LABS: Partial Thromboplastin Time 51.5 Seconds (22.0-36.0)
[2025-04-12] MEDS: OLANZapine INJ 10 MG, Sterile Water 2.1 ML IM (19:44)
[2025-04-12] MEDS: INSULIN LISPRO (AdmeLOG) 1 UNIT/0.01 ML UNIT SC (21:42)
[2025-04-12] MEDS: ATORVASTATIN CALCIUM 20 MG TABLET 80 MG PO (21:44)
[2025-04-12 22:14] LABS: Partial Thromboplastin Time 38.4 Seconds (22.0-36.0)
--- NOTE | 2025-04-12 22:28 | VVPN_ITS ---
Telemedicine visit statement This visit was conducted with the use of phone was obtained on 04/12/25 at 2228. Documentation for date of: 04/12/25 Subjective Subjective Interval history: Patient is in medsurg, no new symptoms reported. COntinues to be restless, agitated, looking for her mom, calling out names. Got a dose of Olanzapine. Virtual exam Vital Signs Temp Pulse Resp BP Pulse Ox O2 Del Method O2 Flow Rate 97.6 F 80 20 110/68 90 L Nasal Cannula 2 04/12/25 20:00 04/12/25 21:44 04/12/25 20:00 04/12/25 21:44 04/12/25 20:00 04/12/25 16:00 04/12/25 16:00 FiO2 40 04/05/25 04:00 Objective Labs 04/12/25 07:36 04/12/25 07:36 Labs: Laboratory Results - last 24 hr 04/11/25 04/12/25 04/12/25 23:49 07:36 15:33 WBC 8.9 RBC 3.24 L Hgb 9.5 L Hct 30.7 L MCV 95 MCH 29.3 MCHC 30.9 L RDW Std Deviation 55.5 H Plt Count 463 H Neut % (Auto) 60 Lymph % (Auto) 23 Bowman % (Auto) 10 Eos % (Auto) 3 Baso % (Auto) 1 Neut # (Auto) 5.4 Lymph # (Auto) 2.0 Bowman # (Auto) 0.9 H Eos # (Auto) 0.2 Baso # (Auto) 0.1 Immature Gran # (Auto) 0.31 H Absolute Nucleated RBC 0.00 Immature Gran % 4 H Nucleated RBC % 0 APTT 24.7 25.4 51.5 H D Sodium 139 Potassium 4.0 D Chloride 103 Carbon Dioxide 24.5 Anion Gap 12 BUN 29 H Creatinine 2.3 H Estim Creat Clear Calc 26.1 L eGFR 24 L BUN/Creatinine Ratio 13 Glucose 127 H Calculated Osmolality 285 Calcium 9.6 Corrected Calcium 10.0 Phosphorus 4.3 Magnesium 2.2 Total Bilirubin 0.6 AST 22 ALT 13 Alkaline Phosphatase 67 Total Protein 6.4 Albumin 3.5 Globulin 2.9 Albumin/Globulin Ratio 1.2 Random Vancomycin 17.3 04/12/25 21:49 WBC RBC Hgb Hct MCV MCH MCHC RDW Std Deviation Plt Count Neut % (Auto) Lymph % (Auto) Bowman % (Auto) Eos % (Auto) Baso % (Auto) Neut # (Auto) Lymph # (Auto) Bowman # (Auto) Eos # (Auto) Baso # (Auto) Immature Gran # (Auto) Absolute Nucleated RBC Immature Gran % Nucleated RBC % APTT 38.4 H D Sodium Potassium Chloride Carbon Dioxide Anion Gap BUN Creatinine Estim Creat Clear Calc eGFR BUN/Creatinine Ratio Glucose Calculated Osmolality Calcium Corrected Calcium Phosphorus Magnesium Total Bilirubin AST ALT Alkaline Phosphatase Total Protein Albumin Globulin Albumin/Globulin Ratio Random Vancomycin ABG Interpretation ABG results: 03/26/25 03/26/25 03/26/25 11:18 11:44 16:23 ABG pH 7.27 L Cancelled ABG pCO2 40 Cancelled ABG pO2 146 H Cancelled ABG HCO3 18 L Cancelled ABG O2 Saturation 100 H Cancelled ABG Base Excess -8 L Cancelled VBG pH 7.19 L VBG pCO2 48 VBG pO2 37 VBG Base Excess -10 L 03/26/25 03/27/25 03/27/25 18:43 00:17 03:42 ABG pH 7.16 L* D 7.24 L Cancelled ABG pCO2 58 H D 44 D Cancelled ABG pO2 68 L D 80 L Cancelled ABG HCO3 21 19 L Cancelled ABG O2 Saturation 90 L 96 Cancelled ABG Base Excess -9 L -8 L Cancelled VBG pH VBG pCO2 VBG pO2 VBG Base Excess 03/27/25 03/27/25 03/27/25 04:04 07:55 18:48 ABG pH 7.26 L 7.30 L ABG pCO2 43 37 ABG pO2 83 174 H D ABG HCO3 19 L 18 L ABG O2 Saturation 97 101 H ABG Base Excess -7 L -8 L VBG pH 7.21 L 7.31 L VBG pCO2 49 48 VBG pO2 54 52 VBG Base Excess -8 L -2 03/27/25 03/28/25 03/28/25 19:07 04:06 13:37 ABG pH 7.36 7.38 7.41 ABG pCO2 41 45 44 ABG pO2 79 L D 73 L 105 D ABG HCO3 23 27 H 27 H ABG O2 Saturation 97 96 99 H ABG Base Excess -2 1 2 VBG pH VBG pCO2 VBG pO2 VBG Base Excess 03/29/25 03/30/25 03/31/25 04:45 04:50 04:40 ABG pH 7.38 7.42 7.39 ABG pCO2 45 40 41 ABG pO2 72 L D 66 L 63 L ABG HCO3 27 H 26 25 ABG O2 Saturation 98 93 92 ABG Base Excess 1 2 0 VBG pH VBG pCO2 VBG pO2 VBG Base Excess 03/31/25 17:30 ABG pH 7.39 ABG pCO2 36 ABG pO2 80 L ABG HCO3 21 ABG O2 Saturation 96 ABG Base Excess -3 VBG pH VBG pCO2 VBG pO2 VBG Base Excess Assessment & Plan Problem List (1) Ischemic cerebrovascular accident (CVA): Status: Acute Assessment and plan: on heparin infusion since yesterday as the repeat CT head did show improvement in the hge. (2) Uncontrolled diabetes mellitus: Status: Chronic Assessment and plan: Continue to check fingerstick glucose and follow sliding scale insulin per protocol (3) Pulmonary embolism: Status: Chronic Assessment and plan: She got the IVC filter placement Now, we started heparin infusion to keep the PTT at the lower limit of therapeutic range.
--- NOTE | 2025-04-12 22:33 | PC.NURSE ---
catalina rossi called on patient around 1900 for patient hitting, spitting, kicking, screaming, cussing, and removing IV, oxygen, and claims adjustor. Restraints applied per order, dr noriega notified and ordered IM zyprexa.
[2025-04-12] MEDS: HEPARIN SOD INJ 5000 UNIT/ML VIAL 3356 UNIT IVP (22:42)
--- NOTE | 2025-04-12 23:13 | PC.NURSE ---
Nurse Sarah attempted to do wound care per orders and apply allevyns to ac. She is refusing care at this time as she is hitting, kicking, screaming, cussing, spitting, and is currently on restraints. Unable to do wound care at this time.
[2025-04-13] VITALS (30 sets, daily range): BP systolic 77–134; BP diastolic 46–74; PULSE 63–103; RESP 14–24; TEMP 36.1–36.6; O2SAT 87–100; BMI 34.0
--- NOTE | 2025-04-13 05:48 | PC.NURSE ---
Dr jean notified that lab came to draw patients timed ptt per heparion protocol, pt is refusing and cussing and screaming at lab. When lab tried to get blood from the patient she continues to shake her body so that they are not able to draw blood. Dr jean aware labs were not obtained and states to not titrate heparin drip and continue with the current rate.
--- NOTE | 2025-04-13 07:00 | XR_ITS ---
Examination: CT brain head without contrast. 2-D sagittal coronal reconstructions Date and time of exam:April 13, 2025, 0742 hrs., Comparison April 11, 2025, April 07, 2025 Indications: Acute infarction left middle cerebral artery distribution and subarachnoid hemorrhage on prior CT brain scans CTDI: vol (mGy):40.7 DLP: (mGycm):967 Technique: Multiple CT axial sections of the brain have been obtained, 5 mm slice thickness. Contrast has not been administered. 2-D sagittal, coronal reconstructions have been obtained Low dose protocols were performed. One or more of the following dose reduction techniques were used; automated exposure control, adjustment of the mA and/or KV according to patient size, use of iterative reconstruction technique. Findings: Infarcts in the left frontoparietal region occipital region again noted, as well as right frontal lobe Tiny area 3 mm of subarachnoid hemorrhage in the left parietal sulci image 15 again noted Tiny areas of subarachnoid hemorrhage in the frontal lobe infarct on the right again noted, axial image 23 No new areas of hemorrhage The ventricles are not enlarged No midline shift of the frontal horns Impression: Stable bilateral infarcts compared with April 11, 2025 Stable tiny areas of subarachnoid hemorrhage compared with April 11, 2025 No new areas of hemorrhage
--- NOTE | 2025-04-13 07:33 | ESPR_ITS ---
<Statement entered by Joe Toney MD - 04/13/25 17:07> I attest that I was physically present for the evaluation, physical examination, lab and imaging review of the patient with the residents. I discussed the case with the residents and agree with the findings and plans of care as documented below. Patient had a rapid response called this afternoon due to hypotension and excessive sleepiness. Her hemoglobin noted to be dropped to 5.7 from 9.5, repeat hemoglobin was 6.4. As per the nurses, patient has been having bloody/dark bowel movement. We ordered 1 L of normal saline bolus along with 2 units of PRBC. Patient's blood pressure started improving after the IV hydration. Repeat head CT, CTA chest/abdomen/pelvis was obtained to evaluate for internal bleeding. Patient is then transferred to ICU in anticipation of possible need for vasopressors and close monitoring. Joe Toney MD <Statement entered by Amie Boyce MD - 04/13/25 14:06> Note reviewed, I agree with most of its contents and agree with the patient's care as documented by Dr. Rand. Patient examined at bedside. This morning patient was arousable but lethargic as she received olanzapine and seroquel overnight due to agitation. Night team also reported that she was refusing blood draws. Draw was eventually taken from periphery to monitor coag pannel while on heparin drip. There was an acute drop in hemoglobin from 9.5 to 5.7. Repeat Hb was 6.4. There was a RR in the afternoon due to hypotension with BP 94/51, responding to sternal rub. She was given 1L bolus NS and 2 units prbc. ICU was consulted and upgraded for closer monitoring. Full body CT scans pending. The patient's management plan was discussed with my attending physician Dr. Toney. Amie Boyce, PGY-2 Documentation for date of: 04/13/25 Subjective Subjective Interval history: 04/13/25: Overnight, patient was noted to be agitated again, Olanzapine x1 10mg was given by neurology. This morning, patient refused AM blood draw. Antibiotics were discontinued as she has finished a [address] brain this morning at 7am revealed no new infarcts or hemorrhage. Once patient was in calmer state, phlobotomists were able to draw blood. CBC was significant for Hgb of 5.7 with repeat of 6.4. Patient's Hgb yesterday was 9.5. SOBT positive. Heparin drip was stopped due to suspected internal bleeding. At approximately 1300 rapid was called for hypotension of 70s/40s. Patient was noted to be more lethargic than her usual state. Repeat BP in 80s/60s with map of 65. Patient was saturating 94% on 4L. 1L bolus of NS was started which improved the BP to 90s/60s. 2 units of PRBC were ordered. Repeat head CT now showed more prominent hemorrhage in the posterior left parietal infarct compared with April 13, 2025 0725 hrs., , chest and abd&pelvis CT with no signs of other internal bleeding or new findings compared to before. ICU team was consulted. Patient was upgraded to ICU for close monitoring and further management. Exam Vital Signs Temp Pulse Resp BP Pulse Ox O2 Del Method O2 Flow Rate 97.5 F 91 19 110/64 92 L Nasal Cannula 2 04/13/25 04:00 04/13/25 04:00 04/13/25 04:00 04/13/25 04:00 04/13/25 04:00 04/13/25 00:00 04/13/25 00:00 FiO2 40 04/05/25 04:00 Narrative Exam General: A/O x2. Resting comfortably. Agitated at times. HEENT: Normocephalic, atraumatic, mucous membranes moist. Heart: Regular rate and rhythm, no murmurs. Lungs: Clear to auscultation with no wheezing or crackles. Abdomen: Soft, mildly distended, mild discomfort to palpation throughout. No guarding or rebound tenderness. left femoral temp cath in place. Neurologic: Bilateral pupils are equal and reacting to light. Able to move all extremities. Muscle strength 4/5 throughout. R hemineglect (unchanged from before) Extremities: Noted surgical scar on the left knee likely from TKR. Noted chronic wound of 5 x 6 cm in the right lower extremity. Noted tissue pressure injuries on the upper lateral right and left thigh. Also noted infected area in the right toe and left 1st and 5th toes. Skin: No rash or ecchymoses. Objective Labs 04/13/25 11:47 04/13/25 13:33 Labs: Laboratory Results - last 24 hr 04/12/25 04/12/25 04/12/25 07:36 15:33 21:49 WBC 8.9 RBC 3.24 L Hgb 9.5 L Hct 30.7 L MCV 95 MCH 29.3 MCHC 30.9 L RDW Std Deviation 55.5 H Plt Count 463 H Neut % (Auto) 60 Lymph % (Auto) 23 [place] % (Auto) 10 Eos % (Auto) 3 Baso % (Auto) 1 Neut # (Auto) 5.4 Lymph # (Auto) 2.0 [place] # (Auto) 0.9 H Eos # (Auto) 0.2 Baso # (Auto) 0.1 Immature Gran # (Auto) 0.31 H Absolute Nucleated RBC 0.00 Immature Gran % 4 H Nucleated RBC % 0 APTT 25.4 51.5 H D 38.4 H D Sodium 139 Potassium 4.0 D Chloride 103 Carbon Dioxide 24.5 Anion Gap 12 BUN 29 H Creatinine 2.3 H Estim Creat Clear Calc 26.1 L eGFR 24 L BUN/Creatinine Ratio 13 Glucose 127 H Calculated Osmolality 285 Calcium 9.6 Corrected Calcium 10.0 Phosphorus 4.3 Magnesium 2.2 Total Bilirubin 0.6 AST 22 ALT 13 Alkaline Phosphatase 67 Total Protein 6.4 Albumin 3.5 Globulin 2.9 Albumin/Globulin Ratio 1.2 Random Vancomycin 17.3 ABG Interpretation ABG results: 03/26/25 03/26/25 03/26/25 11:18 11:44 16:23 ABG pH 7.27 L Cancelled ABG pCO2 40 Cancelled ABG pO2 146 H Cancelled ABG HCO3 18 L Cancelled ABG O2 Saturation 100 H Cancelled ABG Base Excess -8 L Cancelled VBG pH 7.19 L VBG pCO2 48 VBG pO2 37 VBG Base Excess -10 L 03/26/25 03/27/25 03/27/25 18:43 00:17 03:42 ABG pH 7.16 L* D 7.24 L Cancelled ABG pCO2 58 H D 44 D Cancelled ABG pO2 68 L D 80 L Cancelled ABG HCO3 21 19 L Cancelled ABG O2 Saturation 90 L 96 Cancelled ABG Base Excess -9 L -8 L Cancelled VBG pH VBG pCO2 VBG pO2 VBG Base Excess 03/27/25 03/27/25 03/27/25 04:04 07:55 18:48 ABG pH 7.26 L 7.30 L ABG pCO2 43 37 ABG pO2 83 174 H D ABG HCO3 19 L 18 L ABG O2 Saturation 97 101 H ABG Base Excess -7 L -8 L VBG pH 7.21 L 7.31 L VBG pCO2 49 48 VBG pO2 54 52 VBG Base Excess -8 L -2 03/27/25 03/28/25 03/28/25 19:07 04:06 13:37 ABG pH 7.36 7.38 7.41 ABG pCO2 41 45 44 ABG pO2 79 L D 73 L 105 D ABG HCO3 23 27 H 27 H ABG O2 Saturation 97 96 99 H ABG Base Excess -2 1 2 VBG pH VBG pCO2 VBG pO2 VBG Base Excess 03/29/25 03/30/25 03/31/25 04:45 04:50 04:40 ABG pH 7.38 7.42 7.39 ABG pCO2 45 40 41 ABG pO2 72 L D 66 L 63 L ABG HCO3 27 H 26 25 ABG O2 Saturation 98 93 92 ABG Base Excess 1 2 0 VBG pH VBG pCO2 VBG pO2 VBG Base Excess 03/31/25 17:30 ABG pH 7.39 ABG pCO2 36 ABG pO2 80 L ABG HCO3 21 ABG O2 Saturation 96 ABG Base Excess -3 VBG pH VBG pCO2 VBG pO2 VBG Base Excess Quality Measures Quality Measures VTE prophylaxis Assessment & Plan Assessment Current Active Medications: Generic Name Dose Route Start Last Admin Trade Name Alanq PRN Reason Stop Dose Admin Acetaminophen 650 mg 04/01/25 09:12 04/12/25 23:46 Acetaminophen 325 Mg Tablet PO 04/25/25 18:57 650 mg Q4HR PRN Administration Pain Scale 1-3 OR fever >100.4 Albuterol/Ipratropium 3 ml 04/11/25 10:04 Albuterol/Ipratropium (Duoneb) Rt Jennifer 3 Ml Nebu INH 04/26/25 00:59 Q6HRRT PRN SHORTNESS OF BREATH Amlodipine Besylate 10 mg 04/02/25 09:00 04/12/25 09:15 Amlodipine Besylate 5 Mg Tablet PO 05/02/25 08:59 10 mg QDAY CRIS Administration Ascorbic Acid 250 mg 04/03/25 12:00 04/12/25 21:44 Ascorbic Acid 250 Mg Tablet PO 05/03/25 11:59 250 mg BID CRIS Administration Aspirin 81 mg 04/01/25 09:30 04/12/25 09:15 Aspirin Ec 81 Mg Tabec PO 05/01/25 09:29 81 mg QDAY CRIS Administration Atorvastatin Calcium 80 mg 03/26/25 21:00 04/12/25 21:44 Atorvastatin Calcium 20 Mg Tablet PO 04/25/25 20:59 80 mg HS CRIS Administration Carvedilol 6.25 mg 04/01/25 17:30 04/12/25 17:36 Carvedilol 3.125 Mg Tablet PO 05/01/25 17:29 Not Given BIDWM CRIS Dextrose 25 ml 03/26/25 20:20 Dextrose 50%-Water Inj 50 Ml Syringe IV 04/25/25 20:19 Q15MIN PRN BG 50-70 responsive npo pt Dextrose 50 ml 03/26/25 20:20 Dextrose 50%-Water Inj 50 Ml Syringe IV 04/25/25 20:19 Q15MIN PRN BG <50 OR BG <70 & pt unresponsive Gabapentin 100 mg 04/06/25 22:00 04/13/25 05:52 Gabapentin 100 Mg Capsule PO 05/06/25 21:59 Not Given TID CRIS Glucagon 1 mg 03/26/25 20:20 Glucagon Inj 1 Mg Vial IM Q15MIN PRN BG <70, and no IV access Heparin Sodium (Porcine) 3,000 unit 04/09/25 17:10 Heparin Sod Inj 1000 Unit/Ml Vial 10 Ml INDWELLCAT 04/23/25 17:09 X1 PRN DIALYSIS Hydralazine HCl 25 mg 04/01/25 14:00 04/13/25 05:50 Hydralazine Hcl 25 Mg Tablet PO 05/01/25 13:59 Not Given TID CRIS Heparin Sodium/Dextrose 25,000 unit in 250 mls @ 15.059 mls/hr 04/11/25 16:45 04/12/25 22:43 Heparin In D5w Ivpb IV 04/25/25 16:44 28 units/kg/hr .[id number] CRIS 23.425 mls/hr Titration Protocol 18 UNITS/KG/HR Insulin Degludec 24 unit 04/01/25 21:00 04/12/25 22:46 Insulin Degludec 5 Unit/0.05 Ml (Per 5 Units) SC 05/01/25 20:59 Not Given HS CRIS Insulin Human Lispro 0 unit 04/04/25 21:00 04/12/25 21:42 Insulin Lispro (Admelog) 1 Unit/0.01 Ml Unit SC 05/04/25 20:59 3 unit ACHS CRIS Administration Protocol Labetalol HCl 10 mg 04/01/25 11:16 Labetalol Inj 5 Mg/Ml Vial 20 Ml IVP 05/01/25 11:29 Q4HR PRN if SBP>140 Nicotine 21 mg 04/05/25 10:45 04/12/25 09:15 Nicotine Patch 21 Mg/24 Hr Patch.Td24 TOP 05/05/25 10:44 21 mg QDAY CRIS Administration Pharmacy Consult 1 each 04/04/25 12:30 Vancomycin Pharmacy To Dose 1 Each Each IV 05/04/25 12:29 QDAY PRN PROTOCOL Quetiapine Fumarate 25 mg 04/08/25 21:00 04/12/25 21:44 Quetiapine Fumarate 25 Mg Tablet PO 05/08/25 20:59 25 mg HS CRIS Administration Sevelamer Carbonate 800 mg 04/05/25 08:00 04/12/25 17:36 Sevelamer Carbonate 800 Mg Tablet PO 05/05/25 07:59 Not Given TIDWM [facility] Vitamin B Complex/Vit C/Folic Acid 1 tab 04/03/25 12:00 04/12/25 09:15 Vit B12/Vit C/Fa (Nephrovite) Tablet PO 05/03/25 11:59 1 tab QDAY CRIS Administration Zinc Sulfate 220 mg 04/03/25 12:00 04/12/25 09:16 Zinc Sulfate 220 Mg Capsule PO 04/17/25 11:59 220 mg QDAY CRIS Administration Plan 59F with PMH of DM, HTN, asthma, drug use disorder, and a chronic right leg wound was brought to the ED after being found unresponsive (responsive after Narcan administration) at home where she was found to have acute encephalopathy with low GCS requiring intubation and ICU admission for ventilator support, pressor support for likely septic shock, and CRRT. Patient found to have multi embolic disease involving multiple systems including brain and left distal extremity, acute and failure with the cause likely renal emboli. #Acute encephalopathy, multifactorial, related to metabolic derangement, substance use, and embolic CVA (Resolving) #Acute Multiple embolic type foci occipital lobes, bilateral frontal and bilateral parietal lobe #Atrial septal aneurysm #PFO #Subarachnoid hemorrhage #Endocarditis - r/o #Tricuspid valve vegetation - r/o -Patient came in with altered sensorium and head CT at the time showed multiple bilateral infarcts, likely embolic. Patient was weaned off sedation and extubated on 03/31/2025, tolerated well. Currently, patient is improving and is alert and oriented. Patient has extensive DVT in the left lower extremity also noted to have pulmonary embolism, patient might be having embolism through PFO and reaching the systemic circulation. -TTE showed normal size left ventricle with mild apical and global hypokinesis LVEF 40-45%. Evidence of Tricuspid valve vegetation suggestive of endocarditis. The RV is normal in size. The right ventricular systolic function is mildly decreased. Aortic valve sclerosis thickened wih mild aortic regurgitation. Mitral valve thickening with mild mitral regurgitation. -SYLVIE (03/30/25) confirmed no vegetations. Noted to have atrial aneurysm bulging into left atrium, bubble study done showed PFO -EEG from 04/02/25 shows diffuse slowing suggestive of a diffuse encephalopathy of vascular origin. -Per neurology team, given PE and small PFO, PE could be the cause of embolism vs endocardititis but less likely as negative SYLVIE for vegation. Although leukocytosis noted, less likely secondary to endocarditis in origin and more likely secondary to ischemia vs less likely increased coagulopathy as no previous history of DVTs. -Hematology Dr. Krishna was consulted who agreed with the current plan. -MR venogram negative for any thrombus -New blood cx negative -Repeat brain CT (04/11/25) shows Acute infarction in left middle cerebral artery distribution, left frontal, parietal, left occipital lobes. Improvement in subarachnoid hemorrhage, minimal residual in right frontal convexity. - Hypercoagulable studies: Positive cryoprecipitate but low < 1%, 1/2 samples positive for lupus anticoagulant. Weakly positive for hexagonal phase confirm test. Positive EFFIE. negative anti double-stranded. Negative antiphopholipid panel, Normal protein C and S activity, normal antithrombin III, Negative Factor V liden, elevated alpha 1,2 globulins, low B1 globulin, negative factor II Plan: - Repeat brain CT at 0700 today 04/13/25 showed no new infarcts or hemorrhage. - Patient was noted to have Hgb of 5.7 with [employer] HELPER called for hypotension of 70s/40s. Heparin drip was stopped. New brain CT at 1315 today 04/27 now shows more prominent hemorrhage in the posterior left parietal infarct compared with the one done earlier today. - Ordered PRBC x2 - ICU team was consulted. Patient will be upgraded to ICU for close monitoring and further treatment. - Discussed with patient and their family members regarding the current plan of starting anticoagulation medication if cleared by neurology team. Explained to patient and their family members regarding risks and benefits of starting anticoagulation. Explained to them that if we don't start anticoagulation her PE and DVT may have negative consequences (ie. worsening of her current condition) and she may be at risk for more thromboses and on the other hand, if we do start these medications she may be at risk for new brain hemorrhage, worsening of current hemorrhage or bleedings else where in her body. Patient and family understands the risks and benefits and agree with the plan of starting anticoagulation if prompted by the neurology team. - held heparin gtt - Avoid sedative medication, monitor for any mental status changes - Will continue atorvastatin and Aspirin for now - IVC filter placement is done on 03/31/2025 to prevent further embolic strokes through PFO from DVT - No need of urgent PFO closure as per Dr. Nayak. - Pending the rest of hypercoaugulable workup: ANCA, antiproteinase 3, anti myeloproxidase, complement C3 and C4 #Septic shock (resolved) #Hospital-Acquired PNA (Improved) # UTI (Improved) At the time of admission, patient was noted to have bilateral lower extremity edema and bilateral diffuse inspiratory crackles -possible heart failure in the setting of methamphetamine abuse, diabetes, hypertension. Also noted to have temperature of 101.8 ?F at the time of admission, likely due to some ongoing infection. Fits into 2/3 qsofa criteria. Noted to have GCS less than 15 and respiratory rate 35/min. Suspecting sepsis worsening the underlying heart failure resulting in suspected possible combined septic and cardiogenic shock. DDx: Combined cardiogenic and septic shock Patient was started on Levophed and weaned off completely on 03/30/2025 WBC on admission 13.1, procalcitonin 43.23. UA showed turbid urine with 2+ proteinuria, 3+ glucosuria, 112 WBC, 4+ bacteria suggestive of UTI. Urine culture positive for E.coli. Leukocytosis now resolved to 8.9. Patient remains afebrile. Initially patient was started on vancomycin and Zosyn [03/27-03/30], discontinued Vanco and Zosyn, Started on Rocephin (03/30-04/04) Blood cx and sputum culture negative Plan: - Finished Vancomycin and cefepime 2g to cover for HAP (04/04/25-04/13/25) - Will continue to monitor vitals # Acute hypoxic respiratory failure (resolving) # Respiratory acidosis (resolved) Per patient family, patient does not have any previous history of respiratory problems and is not using any inhalers. Not a smoker. ABG at the time of admission showed pH 7.16, pCO2 58, pO2 68, FiO2 100%. Repeat ABG done on 03/27/2024 showed pH 7.3, pCO2 37, bicarb 18. Repeat ABGs done after 03/28/2025 is within normal limits. CTA chest Positive for multiple right lower pulmonary artery filling defects. Positive for left upper lobe pulmonary artery filling defects. No emboli in the main pulmonary artery segments. Pneumonia versus infarction in both lower lung zones. CXR shows bibasilar pneumonia DDx: Sepsis, acute encephalopathy, pulmonary edema, pulmonary embolism, combined. Patient was intubated, sedated and placed on mechanical ventilator on 03/26 and extubated on 03/31. Though patient had pulmonary embolism, patient oxygen needs is coming down. Plan: - Will continue oxygen as needed for now. #KINJAL (Improving) #Acute renal failure likely 2/2 septic shock vs. renal emboli vs. rhabdomyolysis (improved) #Nephrotic range proteinuria Patient does not follow-up any primary care doctor and unsure of her baseline kidney functions. Patient noted to have decreased urine output and oliguric which have improved Creatinine at the time of admission is 2.8 --> 03/30, 2.4 --> 03/31, 3.1 --> 04/01, 4.9 --> 04/03, 5.5--> 04/07 3.0-->04/09, 3.0-->04/11 2.4--> 04/12 2.3 Possible kidney damage from elevated blood glucose 550 on admission, in addition to CK 9752 and U tox positive for amphetamines/methamphetamines DDx: multifactorial etiologies including intravascular depletion, diabetic nephropathy, blood pressure derangements, glomerular diseases, sepsis-induced ATN, rhabdomyolysis, cardiorenal syndrome, crystalline nephropathy associated with oxalate, or atheroembolic disease Cr improving wth electrolytes in normal ranges. No need for HD at this time. Negative blood cx x2 Plan: - Patient did not tolerate permanent cath placement (04/07/25). Recommended by radiology team to perform this under anesthesia; however, given current active medical problems we predict poor outcomes if patient undergoes anesthesia at this time. Discussed the case with the nephrology team, as they recommend permanent catheter placement for dialysis that patient will need for upon discharge. - IR refused repeating permanent catheter placement given patient's inadequate sedation during the last attempt as she was not cooperative. - Temporary HD cath was placed by ICU team (04/09/25). Patient will need a permanent cath placement prior to discharge, as this can be done on Sunday by IR here at [facility] or transfer to [facility]. Though, kidney function is improving and she is making urine. We will reassess the need for perm cath at a later time again (pt has high risk of potentially pulling out catheter in agitated state). - holding HD given pt renal function is improving. - IV albumin prn - Held IV Bumex - Will continue to monitor urine output - Monitor renal panel - Avoid nephrotoxic agents (aminoglycosides, NSAIDs, radiographic contrast) - Adjust medication dosing based on patient's impaired renal function - Hold any KRISSY/ARB/diuretics - HD: 03/28 CRRT, HD 03/29, 03/30, 03/31, 04/03, 04/04, 04/06, 04/09 labs unable to be drawn 2/2 agitation and no IV access - Hold getting CT guided renal biopsy, to assess proteinuria - Started Sevelamer 800 mg TID with meals for hyperphosphatemia despite HD yesterday - Plan to do kidney biopsy on Saturday 04/14. Recommended by Dr. Rodrigues. # HFrEF, EF 40 to 45% #Substance Use Disorder Unsure whether patient is regular methamphetamine user, as family members is not aware of the use. Patient also have severe uncontrolled diabetes mellitus, which could also contribute to the ischemic heart disease and CHF. Plan: - Patient should be started on GDMT but in the setting of ongoing acute kidney injury and recovering shock, will hold GDMT for now - Removed fluid through CRRT/HD #NSTEMI type type I (embolic AR) vs. Type 2 (demand ischemia 2/2 shock) In the setting of demand ischemia. Troponin at the time of admission is 0.427, peaked at 20.920 and later down trended. EKG did not show any ST-T wave changes Plan: - Will continue telemetry monitoring - [facility], Dr. Nayak is consulted and will follow the recommendations # Pulmonary embolism # DVT Patient was noted to have mismatch between end-tidal CO2 and arterial CO2, also noted to have increased oxygen requirements on the ventilator for which CTA chest was ordered on 03/28/2025 CTA chest was positive for multiple right lower pulmonary artery filling defects. Positive for left upper lobe pulmonary artery filling defects. No emboli in the main pulmonary artery segments. Pneumonia versus infarction in both lower lung zones. Echocardiogram did not show any RV strain, though patient noted to have elevated troponin with peak level at 20.920, later down trended. EKG did not show any signs suggestive of pulmonary embolism. Venous doppler of LLE showed extensive chronic nonocclusive DVT involving the common femoral left superficial femoral, popliteal, peroneal, posterior tibial and greater saphenous veins. Tubular structures in the right popliteal fossa 6.0 cm in left popliteal fossa Plan: - Held heparin gtt due to new brain hemorrhage and downtrending Hgb - IVC filter is by Dr. Murillo on 03/31/2025 - Patient is not a candidate of mechanical thrombectomy as of now and does not seem to be in right heart failure #Hypertension (imporved) Patient noted to have history of hypertension but not using any medications before coming to the hospital BP initially elevated with SBP around 180-190. Now stabilized around 130s-140s. Plan - Held amloidipine - Continue carvedilol - Will continue to monitor blood pressures and titrate medications as needed #Agitation Patient was noted to be agitated at times recently and pulling out her IV access lines and vital sign monitors. Plan: - Continue Seroquel 25 PO qhs - Apply soft restraints if medically indicated #Abdominal pain (resolved) #Umbilical hernia with incarcerated fat #Gallbladder sludge #Prominent pancreatic head #Right hilum mass #Right lower lobe mass #Left adrenal gland mass #Uterine fundal mass #Focal mucinosis Patient reported diffuse abdominal pain today (8/22/25). On exam, diffuse TTP noted mainly in RUQ and LUQ with no peritinic signs. Her LUQ could be due to the renal infarct that has been noted on recent CT. Lactate: 1.1 CHIMNEY BUILDER HELPER was called while receiving HD. CTA abd&pelvis was ordered which showed gallbladder sludge and 22mm umbilical hernia with incarcerated fat and negative for any bowel ischemia. Patient was placed NPO and OG tube was inserted however later was pulled out by pt. General surgery Dr. Wood was consulted who recommended no surgical intervention at this time given current comorbidities and the fact that the hernia is most likely chronic. RUQ US was ordered due to concern for budd chiari which was negative for gallstones, however showed thickened gallbladder wall of 0.45cm and prominent pancreatic head of 3.5cm and moderate hepatomegaly. Below incidental findings were also noted in the CTA abd&pelvis: Mass contiguous with the right hilum 32 mm Mass in the right lower lobe 28 mm Nodular thickening left adrenal gland measuring 24 mm Atrophic anteverted uterus with calcified uterine fundal mass Pathology report on 04/06 for the biopsy of the left medial knee skin shows benign skin with changes suggesting focal mucinosis without signs of neoplasia Plan: - CTM - Consulted Radiation Oncology for suspected malignancy, appreciate recs - Patient will need to follow up with PCP upon discharge for the incidental findings listed above # Transaminitis (resolved) # Hyperbilirubinemia (resolved) #Hepatitis C At the time of admission patient was found to have bilirubin of 1.6, AST 146, ALT 61 ---> 8/19, AST 76, ALT 74 --> 8/, AST 42 , ALT 65--> 8/ AST 25, ALT 29 DDx: Fatty liver versus chronic liver disease versus viral hepatitis versus secondary to ongoing septic shock and possible suspected ischemia Tested positive for hepatitis C antibody. Liver ultrasound showed 10 mm gallstone, CBD enlarged 0.6 cm, liver 18.5 cm fatty infiltration Plan: - Patient has to follow-up with [facility] on discharge on outpatient basis for follow-up on hepatitis C, currently does not suspect any active viral hepatitis # High anion gap metabolic acidosis (resolved) # Lactic acidosis (resolved) Likely in the setting of ongoing shock, likely due to sepsis. At the time of admission, anion gap is 19, lactate is 4.7 ---> 8/20, AG 22, Lactate 1.1 --> 04/03 AG 16, lactate 1.1 Anion gap improved on day of admission and lactic acidosis is slowly improving after starting CRRT. Plan: - Received CRRT on 03/27 and 03/28, HD on 03/29, 03/30, 03/31, 04/03, 04/04, 04/06 - Will continue to monitor lab values # Rhabdomyolysis (resolved) Patient happened to be on the floor lying down for 4 to 5 hours and also tested positive for methamphetamine on urine toxicology CK at the time of presentation is 9752 and received 2 L of fluid in the ED, as patient is fluid overloaded cannot give more fluids CK levels continue to trend down slowly to 1187. Plan: -CTM # Uncontrolled type 2 diabetes mellitus Patient is not following any primary care provider and not taking medications properly per patient's family. Blood glucose at the time of admission is 550 for which patient was given 10 units of lispro in the ED. The patient had high anion gap metabolic acidosis, tested negative for beta- hydroxybutyrate and DKA is ruled out. A1C: 13.6 Patient achieving appropriate glucose control with current regimen Plan: - Degludec 24 U QHS + ISS step 3 - Will titrate degludec according to FBS # Chronic right leg wound Likely from uncontrolled diabetes mellitus and venous congestion. On physical examination, noted 5 x 6 cm wound with well-healing granulation tissue. Arterial Doppler was ordered which showed no PAD in bilateral lower extremities Plan - Wound care consulted - Continue Vitamin C 250mg BID - Continue Zinc sulfate 220mg Qday x14 days (04/03-) - Nephro-Vu # History of asthma Unclear if patient is using inhalers or if she has recent exacerbations. Currently does not appear to be in any exacerbations Plan: -CTM Health Maintenance: Diet: cons carb GI prophylaxis: Protonix DVT prophylaxis: Held Heparin gtt Antibiotics: Finished a course of cefepime and vanco on 04/13/25 CODE STATUS: Full Disposition: ICU upgrade Case discussed with attending Dr. Toney and senior resident Dr. Boyce. Thomas Rand, DO PGY1
[2025-04-13] MEDS: NICOTINE PATCH 21 MG/24 HR PATCH.TD24 TOP (09:00)
[2025-04-13] MEDS: VIT B12/Vit C/FA (Nephrovite) TABLET 1 TAB PO (09:01)
[2025-04-13] MEDS: SEVELAMER CARBONATE 800 MG TABLET PO ×3 (09:01→18:04)
[2025-04-13] MEDS: ASPIRIN EC 81 MG TABEC PO (09:01)
[2025-04-13] MEDS: ZINC SULFATE 220 MG CAPSULE PO (09:01)
[2025-04-13] MEDS: ASCORBIC ACID 250 MG TABLET PO ×2 (09:02→20:30)
[2025-04-13 10:35] LABS: Basophils # (Auto) 0.1 Thou/mm3 (0.0-0.2); Basophils % (Auto) 0 % (0-2.5); Eosinophils # (Auto) 0.1 Thou/mm3 (0.0-0.5); Eosinophils % (Auto) 1 % (0-10); Immature Granulocytes Auto 0.52 Thou/mm3 (0.00-0.00); Lymphocytes # (Auto) 2.9 Thou/mm3 (1.0-4.8); Lymphocytes % (Auto) 24 % (10-50); Mean Corpuscular HGB Conc 30.8 g/dl (31.0-37.0); Mean Corpuscular Hemoglobin 29.2 pg (25.0-35.0); Mean Corpuscular Volume 95 fL (80-100); Monocytes # (Auto) 1.2 Thou/mm3 (0.0-0.8); Monocytes % (Auto) 10 % (0-12); Neutrophils # (Auto) 7.2 Thou/mm3 (1.8-7.7); Neutrophils % (Auto) 60 % (37-80); Nucleated Red Blood Cell # 0.00 Thou/mm3 (0.00-0.00); Nucleated Red Blood Cell % 0 /100 WBC (0); Platelet Count 382 Thou/mm3 (140-440); RDW Standard Deviation 54.4 fL (36.4-46.3); Red Blood Count 1.95 Miln/mm3 (4.00-5.20); White Blood Count 12.0 Thou/mm3 (3.6-11.0)
[2025-04-13 10:47] LABS: Hematocrit 18.5 % (36.0-46.0); Hemoglobin 5.7 g/dL (12.0-16.0)
[2025-04-13 11:12] LABS: Alanine Aminotransferase 9 U/L (10-49); Albumin, Serum 3.0 gm/dL (3.5-5.0); Albumin/Globulin Ratio 1.3 (1.2-2.2); Alkaline Phosphatase 51 U/L (46-116); Anion Gap 12 (7-16); Aspartate Amino Transferase 15 U/L (0-34); BUN/Creatinine Ratio 28 Ratio (12-20); Bilirubin,Total 0.4 mg/dL (0.3-1.2); Blood Urea Nitrogen 66 mg/dL (9-23); Calcium 8.8 mg/dL (8.3-10.6); Calcium (Corrected) 9.6 mg/dL (8.5-10.1); Carbon Dioxide 24.6 mMol/L (20.0-31.0); Chloride 103 mMol/L (98-107); Creatinine (Component) 2.4 mg/dL (0.6-1.3); Estimated Creatinine Clearance 25.1 mL/min (>60); Globulin 2.3 gm/dL (2.3-3.5); Glucose 157 mg/dL (74-106); Magnesium 1.8 mg/dL (1.6-2.6); Osmolality,Calculated 301 (275-295); Phosphorous 4.3 mg/dL (2.4-5.1); Potassium 4.4 mMol/L (3.4-5.1); Sodium 140 mMol/L (136-145); Total Protein 5.3 gm/dL (5.7-8.2); Vancomycin,Random 11.9 mcg/mL; eGFR 23 See Note
[2025-04-13 11:14] LABS: INR 1.3 (0.9-1.3); Prothrombin Time 14.3 Seconds (9.0-12.2)
[2025-04-13] MEDS: ACETAMINOPHEN 325 MG TABLET 650 MG PO (11:14)
[2025-04-13 11:19] LABS: Partial Thromboplastin Time > 139.0 Seconds (22.0-36.0)
[2025-04-13] MEDS: INSULIN LISPRO (AdmeLOG) 1 UNIT/0.01 ML UNIT SC ×2 (12:02→18:03)
[2025-04-13 12:27] LABS: OBS Card Lot # 0124; OBS Developer Lot # 224; OBS Performed By herns4; OBS QC OK? Yes; Occult Blood, Stool Positive (Negative)
[2025-04-13 12:50] LABS: Hematocrit 20.0 % (36.0-46.0); Hemoglobin 6.4 g/dL (12.0-16.0)
--- NOTE | 2025-04-13 13:02 | PC.NURSE ---
RR called d/t low bp and pt found lethargic.
--- NOTE | 2025-04-13 13:06 | XR_ITS ---
Examination: CT abdomen and pelvis without contrast. Coronal 3-D reconstructions. Sagittal 2-D reconstructions. Date and time of exam:April 13, 2025 1345 hrs., Comparison April 03, 2025 Indications: Gastrointestinal bleeding, abdominal pain and distention this week, cirrhosis diagnosis CTDI: vol (mGy): 20.6 DLP: (mGycm): 172 Technique: Axial images of the abdomen have been obtained, 3 mm slice thickness Intravenous contrast material has not been administered. Low dose protocols were performed. One or more of the following dose reduction techniques were used; automated exposure control, adjustment of the mA and/or KV according to patient size, use of iterative reconstruction technique. Findings: Prominent vascular congestion No focal liver lesions Small gallstones No pancreatic mass. 18 mm left adrenal nodule Low density in the spleen, 8 cm, consistent with splenic infarct, please see the CT abdomen study April 03, 2025 Moderate renal scar formation Aorta normal size 3 cm fat-containing hernia Normal appendix No diverticulitis Atrophic uterus with 26 mm calcified uterine area of fibroid degeneration Bladder intact Impression: Cholelithiasis 18 mm left adrenal nodule, consider elective MRI abdomen adrenal glands follow-up pre and postcontrast Splenic artery infarct again noted Moderate bilateral renal scar formation Consider nuclear medicine gastrointestinal bleeding study follow-up
--- NOTE | 2025-04-13 13:11 | XR_ITS ---
Examination: CT chest, without intravenous contrast. Sagittal and coronal 2-D reconstructions. Exam date and time: April 13, 2025, 1345 hrs., Comparison March 31, 2025 Indications: Chest pain shortness of breath this week, positive for pulmonary artery emboli on CTA chest March 31, 2025 CTDI:vol (mGy) 23.1 DLP: (mGycm) 783 Technique: Multiple 3.0 mm axial sections of the chest to been obtained. Bone and lung density settings are obtained. Sagittal and coronal 2-D reconstructions have been obtained. Low dose protocols were performed. One or more of the following dose reduction techniques were used; automated exposure control, adjustment of the mA and/or KV according to patient size, use of iterative reconstruction technique. Findings: No thoracic aortic aneurysmal dilatation. Pulmonary artery segments are not enlarged. Mild enlargement cardiac contour Moderate vascular congestion Bibasilar opacity, pneumonia versus pulmonary infarction, clinical correlation advised Prominent osteopenia Impression: Opacity right perihilar right base, consider pneumonia, pulmonary infarction, clinical correlation advised
--- NOTE | 2025-04-13 13:15 | XR_ITS ---
Examination: CT brain head without contrast. 2-D sagittal coronal reconstructions Date and time of exam:2024, 1343 hrs. Comparison: 04/13/2025 0725 hrs. CTDI: vol (mGy):49 DLP: (mGycm):966 Technique: Multiple CT axial sections of the brain have been obtained, 5 mm slice thickness. Contrast has not been administered. 2-D sagittal, coronal reconstructions have been obtained Low dose protocols were performed. One or more of the following dose reduction techniques were used; automated exposure control, adjustment of the mA and/or KV according to patient size, use of iterative reconstruction technique. Findings: More prominent hemorrhage in the posterior left parietal infarct, axial image 18-21 compared to the study 0725 hrs. this morning Small areas of hemorrhage in the right frontal current ct are stable compared to the [address] brain scan is otherwise unchanged Impression: Compared with April 13, 2025 0725 hrs., more prominent hemorrhage in the posterior left parietal infarct, axial images 18 through 21
[2025-04-13 13:22] LABS: Path Review Blood Smear Sent to Pathologist
[2025-04-13 13:38] LABS: Base Excess, Venous 1 (-3-3); Lactate (Lactic Acid) 1.8 mMol/L (0.4-2.0); O2 Saturation, Venous 96 % (96-97); PCO2, Venous 32 mmHg (36-56); PO2, Venous 68 mmHg (15-58); pH, Venous 7.49 (7.33-7.66)
[2025-04-13] MEDS: RINGERS LACTATED 1000 ML 1,000 ML 999 ML IV (13:53)
[2025-04-13 14:11] LABS: Alanine Aminotransferase 8 U/L (10-49); Albumin, Serum 2.9 gm/dL (3.5-5.0); Albumin/Globulin Ratio 1.3 (1.2-2.2); Alkaline Phosphatase 49 U/L (46-116); Anion Gap 13 (7-16); Aspartate Amino Transferase 14 U/L (0-34); BUN/Creatinine Ratio 28 Ratio (12-20); Bilirubin,Total 0.4 mg/dL (0.3-1.2); Blood Urea Nitrogen 69 mg/dL (9-23); Calcium 8.8 mg/dL (8.3-10.6); Calcium (Corrected) 9.7 mg/dL (8.5-10.1); Carbon Dioxide 23.6 mMol/L (20.0-31.0); Chloride 103 mMol/L (98-107); Creatinine (Component) 2.5 mg/dL (0.6-1.3); Estimated Creatinine Clearance 24.1 mL/min (>60); Globulin 2.2 gm/dL (2.3-3.5); Glucose 167 mg/dL (74-106); Osmolality,Calculated 303 (275-295); Potassium 4.2 mMol/L (3.4-5.1); Sodium 140 mMol/L (136-145); Total Protein 5.1 gm/dL (5.7-8.2); eGFR 22 See Note
--- NOTE | 2025-04-13 15:29 | ESCONSULT_ITS ---
<Statement entered by Angelito East MD - 04/14/25 07:05> I personally examined the patient and supervised PGY 1 resident, Dr. Collins, with plan of care for this patient. I agree with their documentation with the exceptions as listed below. 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 Initially she presented with weakness and altered mental status requiring intubation and admission to the ICU. Subsequently patient was stabilized and downgraded to the floor. During hospitalization she was found to have a PFO on SYLVIE which led to her multiple embolic infarcts. Also she was found to have multiple masses, including hilar, lung nodule, adrenal nodule with unclear source of primary etiology. Heme oncology and radiation oncology were consulted, currently awaiting recommendations. Tentatively the plan is for a left kidney biopsy tomorrow once cleared with interventional radiology to determine a primary source. Today patient was getting ready to be discharged when she had a sudden change in mentation and acute drop in hemoglobin from 9- 5.7. There was concern for worsening of hemorrhagic conversion of her stroke and she was upgraded to the ICU. Repeat CT brain did show mild worsening of hemorrhagic conversion. Neurology recommended for immediate cessation of heparin and aspirin due to fears of continued worsening of hemorrhagic stroke. GI was consulted for likely GI bleed secondary to heparin use and melena. Currently patient is to receive 2 units of PRBCs for her acute blood loss anemia, Lasix 40 mg IV was given before the first transfusion to avoid TACO due to her heart failure. Plan of care discussed with Attending Dr. Ravi East MD PGY 2 Disclaimer: This note was dictated by speech recognition. Minor errors in oyster bed worker may be present due to voice recognition software. HPI Data of Consult Requesting Physician: Hayley Dubois MD Admitting Provider: Luann Grady MD Attending Provider: Hayley Dubois MD Primary Care Provider: Physician No Primary/Family Consult Narrative History of present illness: Vashti Ross is a 59-year-old F with a PMH of 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 as well as DVT/PE that occurred during current hospitalization, PFO s/p 03/31/25 IVC filter placement, multiple masses spread throughout the body suspicious for metastasis (including locations at pancreatic head, right hilum, right lower lobe of the lung, left adrenal gland, and uterine fundus), chronically incarcerated umbilical hernia, stage IV CKD, HCV(+) status, mild CHF (EF of 40 to 45% from 03/28/25 echocardiogram), poorly controlled insulin-independent T2DM, hypertension, asthma, methamphetamine use disorder, and a chronic right leg wound who returns back to the ICU from floors for acute blood loss anemia concerning for worsening hemorrhagic stroke. Initially, patient was BIBA to the ED at [facility] around 09:00 on 03/27 after her sister came to check on her and called for an ambulance. Apparently, patient's first found her in a stuporous state at 05:00, tried to rouse her but failed, and then called patient's sister before leaving for work. Patient was noted to be altered with a respiratory rate of 4 en route to [facility]. A total of 8 mg of Narcan was administered at this time which initially improved mentation. Upon arrival, patient was noted to be somnolent and given an additional 0.4 mg of IV Narcan which made her more active but also more combative. She was also noted to be hypoxic and in respiratory distress upon arrival which led her to be put on BiPAP. During her agitated episode, patient endorsed that she hurt all over and loudly yelled that I gotta get out of here . She was eventually given 2 mg of IV Versed and put on restraints due to her continued agitation. Later, she was taken for an MRI which required removal of her BiPAP but upon removal a subsequent drop in O2 saturation to the low 90s was noted. It was deemed that her airway was not secure and the decision was made to intubate the patient. In the ED, vitals showed: BP 107/78 HR 94 RR 35 Temp 101.3 SpO2 98% on 15 L BiPAP ED Course: CBC showed high WBC 13.1 w/ neutrophilic predominance but was otherwise WNL. Coagulation panel showed high PT 13.3. ABG showed acidic pH 7.27, normal pCO2 40, high pO2 146, low HCO3 18. CMP showed low carbon dioxide 18.1, high anion gap 19, high creatinine 2.8, low eGFR 19, very high blood glucose 550, very high lactic acid 4.7, high bilirubin 1.6, high AST 146, high ALT 61, high total creatine kinase 9752, very high troponin I 0.427, high BNP 297, and high procalcitonin 43.23. UA showed 2+ protein, 3+ glucose, 1+ ketones, 3+ blood, high RBC 10, high WBC 112, 3+ calcium oxalate crystals, 4+ bacteria, normal random sodium 34.2, normal random potassium 26, and low random chloride 23.2. UDS was (+) for amphetamines/methamphetamines and marijuana. Serological studies were reactive for hepatitis C antibody. Imaging: Head CT showed findings most consistent with acute right frontal lobe infarcts. Brain MRI showed multiple embolic-type foci of restricted diffusion in the b ilateral occipital lobes, bilateral frontal lobes, and bilateral parietal lobes most consistent with acute infarcts. CXR showed bibasilar pneumonia and findings suspicious for mild associated heart failure. Renal US showed small kidneys with right renal cortical thinning as well as mild right and moderate left renal parenchymal scar formation. Carotid doppler study showed 20-40% stenosis of the right internal carotid artery and 0-10% stenosis of the left internal carotid artery. EKG was unremarkable. In the ED, patient was given Duoneb Precedex, doxycycline, etomidate, Lasix, regular insulin, ketamine, Versed, naloxone, 1 L LR bolus, Zemuron, and 1 L NS bolus. Patient was intubated due to low GCS and was admitted to the ICU for the 1st time. In the ICU, patient underwent management of acute hypoxic respiratory failure, acute toxic metabolic encephalopathy, and rhabdomyolysis. Due to KINJAL on CKD 2/2 multiorgan failure and septic shock, patient was started on CRRT over the course of her ICU stay. An 03/26/25 echocardiogram found mild apical and global hypokinesis with an LVEF of 40 to 45% with tricuspid valve vegetations suggestive of endocarditis. A CTA was also done due to patient's increasing negative FiO2 on the ventilator on 03/28 during which she was found to have multiple bilateral PEs mainly in the right lower lobe pulmonary artery and left upper lobe. A venous Doppler also showed extensive non-occlusive DVT in the left lower extremity extending up to the common femoral vein. Due to the concern for hemorrhagic transformation of the patient's embolic CVA as well as the suspicion that the multiple emboli were 2/2 infective endocarditis, anticoagulation was held. A repeat head CT was done during 03/30 which did show hemorrhagic transformation with multiple interval areas of subarachnoid hemorrhage involving the right frontal convexity as well as the left frontal parietal convexity in the right frontal sulci. A SYLVIE had been done as well on 03/30 during which no vegetations were seen, but patient was found to have an atrial septal aneurysm and PFO. Blood cultures at that point had been positive for Staphylococcus hominis in only 1 bottle, which was thought to be more likely secondary to contamination. A urine culture was done showing pansensitive E. coli. Patient had initially been on vancomycin and Zosyn since admission and was later switched to Rocephin 2 g IV daily beginning 03/30. Transfer had been initially initiated on 03/30 for higher level of care due to the concern of multiple embolic strokes in the setting of PFO. However, cardiothoracic surgery at [facility] had low suspicion for embolic stroke caused by small PFO and recommended hypercoagulability workup before considering PFO closure. An IVC filter was placed on 03/31. CT of chest abdomen pelvis was also done that day showing no left atrial thrombus, PE in upper and lower pulmonary artery branches, pneumonia versus infarct in the right upper lobe and both bases and large splenic infarct with thrombus in upper lobe splenic arteries. Patient was extubated on 03/31 and hypercoagulable workup was initiated. Repeat CT head on 03/31 was done showing stable areas of subarachnoid hemorrhage so anticoagulation. Skin biopsy was done at bedside of the livedo reticularis. Eventually patient was stabilized and downgraded to floors on 04/02. While on floors, it was found that patient had multiple masses spread throughout the body suspicious for metastasis (including locations at pancreatic head, right hilum, right lower lobe of the lung, left adrenal gland, and uterine fundus) but the source of the primary etiology is unclear. For the above finding, hematology- oncology and radiation-oncology were consulted. However, patient was being prepared for discharge on 04/13 when she had a sudden change in mentation and acute drop in hemoglobin from 9.5 to 5.7. As such, patient was readmitted to ICU for the 2nd time due to concern for worsening of hemorrhagic conversion of her stroke. Interval History 04/13/25: Patient seen and examined at bedside; she endorses symptoms of bilateral lower extremity pain and fatigue. Pertinent lab findings today include: WBC bump to 12.0 from 8.9, Hgb drop to 5.7 from 9.5 (MCV 95, RDW 54.4), normal platelet count 382, PT 14.3, INR 1.3, APTT >139.0, BUN 66, creatinine 2.4, glucose 157, calculated osmolality 301, and (+) stool occult blood. CTAP showed cholelithiasis, 18 mm left adrenal nodule, previously noted splenic artery infarct, and moderate bilateral renal scar formation. Chest CT showed an opacity at the right perihilar base suggesting possible pneumonia or pulmonary infarction. Head CT showed mild worsening of hemorrhagic conversion. Currently, patient is to receive 2 units of pRBCs for her acute blood loss anemia with one dose of IV Lasix 40 mg being given before the first transfusion to avoid TACO due to her heart failure. Per neurology recommendations, heparin has been stopped to prevent further worsening of hemorrhagic conversion and aspirin will be avoided. GI has been consulted for suspected acute blood loss anemia (in the setting of accompanying melena) 2/2 GI bleed 2/2 heparin use. As mentioned previously, hematology-oncology and radiation-oncology have been consulted for the multiple masses spread throughout the body. Tentatively, a left kidney biopsy is slated for tomorrow once cleared with interventional radiology in order to determine a primary source. cc:: cc: Hayley Dubois MD Review of Systems Review of Systems ROS Unobtainable: unobtainable due to mental status Past Medical History Past Medical History Comments H COMMENT: (deferred as patient remains acutely confused/agitated and is incapable of acting as a reliable historian) Exam Vital Signs Temp Pulse Resp BP Pulse Ox O2 Del Method O2 Flow Rate 97.1 F 84 16 134/67 H 92 L Room Air 2 04/13/25 13:02 04/13/25 13:02 04/13/25 13:04/13/25 13:04/13/25 13:04/13/25 12:00 04/13/25 12:00 FiO2 40 04/13/25 12:00 Narrative Exam Physical Exam: General: Alert, no acute distress. Skin: Pale-appearing. Cool skin. New ulcer of the L big toe over the proximal phalange with blackening of the distal portions of that toe. Head: Normocephalic, atraumatic. Eye: Slightly icteric. Bilateral corneal arcus noted. EOMI and PERRLA. Throat: Oral mucosa moist. Cardiovascular: Regular rate and rhythm, no murmur, normal peripheral perfusion, no edema. Respiratory: Lungs are clear to auscultation, respirations non labored, no crackles, no wheezing. Gastrointestinal: Soft, mildly distended, mild discomfort to palpation throughout. No guarding or rebound tenderness. Temporary left femoral catheter in place. Psychiatric: Cooperative, appropriate affect at first. Later, became confused and agitated (calling for mom to help her and screaming). Neuro: Mental status: Alert, oriented, appropriately responding to commands (at first). Speech/Language: Speech fluent, no word finding difficulty or paraphasic errors observed. Language-comprehension, repetition and naming intact. No dysarthria noted. Memory: Grossly recent and remote intact. Cranial Nerves: II: Right hemineglect noted (unchanged from before). Pupils 3-5 mm size BL round, reactive to light. III, IV, : EOMI, no nystagmus, no ptosis, no APD, smooth pursuit without saccadic intrusion, conjugate horizontal gaze intact. V: Gross sensation intact in V1, V2 and V3 distribution to crude touch. Jaw strength normal. VII: No facial asymmetry, able to smile symmetrically and BL good eye closure. VIII: Hearing intact in both ears per finger rubbing. IX, X: Symmetrical palate elevation, uvula in midline. XI: Symmetrical head rotation and shoulder shrug. IX, XII: Midline tongue protrusion. No fasciculations or atrophy noted. Sensory examination Significantly decreased sensation of crude touch in bilateral lower extremities. Crude touch in bilateral upper extremity grossly intact. Motor examination No drift in bilateral upper extremity 4/5 strength in bilateral upper extremity 3/5 strength in bilateral lower extremity No Dixon's or ankle clonus Gait Could not assess, patient is weak and currently bed-bound. Results Labs 04/14/25 22:23 04/14/25 04:45 Labs: Short CBC 04/13/25 04/13/25 Range/Units 09:58 11:47 WBC 12.0 H (3.6-11.0) Thou/mm3 Hgb 5.7 L* D 6.4 L* (12.0-16.0) g/dL Hct 18.5 L* 20.0 L* (36.0-46.0) % Plt Count 382 D (140-440) Thou/mm3 BMP 04/13/25 04/13/25 09:58 13:33 Sodium 140 140 Potassium 4.4 4.2 Chloride 103 103 Carbon Dioxide 24.6 23.6 BUN 66 H 69 H Creatinine 2.4 H 2.5 H Glucose 157 H 167 H Calcium 8.8 8.8 Liver Function 04/13/25 04/13/25 Range/Units 09:58 13:33 Total Bilirubin 0.4 0.4 (0.3-1.2) mg/dL AST 15 14 (0-34) U/L ALT 9 L 8 L (10-49) U/L Alkaline Phosphatase 51 D 49 (46-116) U/L Albumin 3.0 L D 2.9 L (3.5-5.0) gm/dL ABG Interpretation ABG results: 03/26/25 03/26/25 03/26/25 11:18 11:44 16:23 ABG pH 7.27 L Cancelled ABG pCO2 40 Cancelled ABG pO2 146 H Cancelled ABG HCO3 18 L Cancelled ABG O2 Saturation 100 H Cancelled ABG Base Excess -8 L Cancelled VBG pH 7.19 L VBG pCO2 48 VBG pO2 37 VBG Base Excess -10 L 03/26/25 03/27/25 03/27/25 18:43 00:17 03:42 ABG pH 7.16 L* D 7.24 L Cancelled ABG pCO2 58 H D 44 D Cancelled ABG pO2 68 L D 80 L Cancelled ABG HCO3 21 19 L Cancelled ABG O2 Saturation 90 L 96 Cancelled ABG Base Excess -9 L -8 L Cancelled VBG pH VBG pCO2 VBG pO2 VBG Base Excess 03/27/25 03/27/25 03/27/25 04:04 07:55 18:48 ABG pH 7.26 L 7.30 L ABG pCO2 43 37 ABG pO2 83 174 H D ABG HCO3 19 L 18 L ABG O2 Saturation 97 101 H ABG Base Excess -7 L -8 L VBG pH 7.21 L 7.31 L VBG pCO2 49 48 VBG pO2 54 52 VBG Base Excess -8 L -2 03/27/25 03/28/25 03/28/25 19:07 04:06 13:37 ABG pH 7.36 7.38 7.41 ABG pCO2 41 45 44 ABG pO2 79 L D 73 L 105 D ABG HCO3 23 27 H 27 H ABG O2 Saturation 97 96 99 H ABG Base Excess -2 1 2 VBG pH VBG pCO2 VBG pO2 VBG Base Excess 03/29/25 03/30/25 03/31/25 04:45 04:50 04:40 ABG pH 7.38 7.42 7.39 ABG pCO2 45 40 41 ABG pO2 72 L D 66 L 63 L ABG HCO3 27 H 26 25 ABG O2 Saturation 98 93 92 ABG Base Excess 1 2 0 VBG pH VBG pCO2 VBG pO2 VBG Base Excess 03/31/25 04/13/25 17:30 13:33 ABG pH 7.39 ABG pCO2 36 ABG pO2 80 L ABG HCO3 21 ABG O2 Saturation 96 ABG Base Excess -3 VBG pH 7.49 VBG pCO2 32 L VBG pO2 68 H VBG Base Excess 1 Quality Measures Quality Measures VTE prophylaxis Medications Home Medications and Allergies Home Medications ?Medication ?Instructions ?Recorded ?Confirmed ?Type metformin 500 mg tablet 500 mg PO DAILY 04/04/25 History Allergies Allergy/AdvReac Type Severity Reaction Status Date / Time No Known Allergies Allergy Verified 03/26/25 11:03 Visit Medications Acetaminophen (Acetaminophen 325 Mg Tablet) 650 mg PO Q4HR PRN PRN Reason: Pain Scale 1-3 OR fever >100.4 Stop: 04/25/25 18:57 Last Admin: 04/13/25 11:14 Dose: 650 mg Albuterol/Ipratropium (Albuterol/Ipratropium (Duoneb) Rt Jennifer 3 Ml Nebu) 3 ml INH Q6HRRT PRN PRN Reason: SHORTNESS OF BREATH Stop: 04/26/25 00:59 Amlodipine Besylate (Amlodipine Besylate 5 Mg Tablet) 10 mg PO QDAY [facility] Stop: 05/02/25 08:59 Last Admin: 04/13/25 09:02 Dose: 10 mg Ascorbic Acid (Ascorbic Acid 250 Mg Tablet) 250 mg PO BID [facility] Stop: 05/03/25 11:59 Last Admin: 04/13/25 09:02 Dose: 250 mg Atorvastatin Calcium (Atorvastatin Calcium 20 Mg Tablet) 80 mg PO HS [facility] Stop: 04/25/25 20:59 Last Admin: 04/12/25 21:44 Dose: 80 mg Carvedilol (Carvedilol 3.125 Mg Tablet) 6.25 mg PO BIDWM [facility] Stop: 05/01/25 17:29 Last Admin: 04/13/25 09:01 Dose: 6.25 mg Dextrose (Dextrose 50%-Water Inj 50 Ml Syringe) 25 ml IV Q15MIN PRN PRN Reason: BG 50-70 responsive npo pt Stop: 04/25/25 20:19 Dextrose (Dextrose 50%-Water Inj 50 Ml Syringe) 50 ml IV Q15MIN PRN PRN Reason: BG <50 OR BG <70 & pt unresponsive Stop: 04/25/25 20:19 Gabapentin (Gabapentin 100 Mg Capsule) 100 mg PO TID [facility] Stop: 05/06/25 21:59 Last Admin: 04/13/25 05:52 Dose: Not Given Glucagon (Glucagon Inj 1 Mg Vial) 1 mg IM Q15MIN PRN PRN Reason: BG <70, and no IV access Heparin Sodium (Porcine) (Heparin Sod Inj 1000 Unit/Ml Vial 10 Ml) 3,000 unit INDWELLCAT X1 PRN PRN Reason: DIALYSIS Stop: 04/23/25 17:09 Hydralazine HCl (Hydralazine Hcl 25 Mg Tablet) 25 mg PO TID [facility] Stop: 05/01/25 13:59 Last Admin: 04/13/25 05:50 Dose: Not Given Heparin Sodium/Dextrose (Heparin In D5w Ivpb) 25,000 unit in 250 mls @ 15.059 mls/hr IV .[id number] [facility]; Protocol Stop: 04/25/25 16:44 Last Titration: 04/13/25 10:57 Dose: Infused Insulin Degludec (Insulin Degludec 5 Unit/0.05 Ml (Per 5 Units)) 24 unit SC [facility] Stop: 05/01/25 20:59 Last Admin: 04/12/25 22:46 Dose: Not Given Insulin Human Lispro (Insulin Lispro (Admelog) 1 Unit/0.01 Ml Unit) 0 unit SC [facility]; Protocol Stop: 05/04/25 20:59 Last Admin: 04/13/25 12:02 Dose: 3 unit Labetalol HCl (Labetalol Inj 5 Mg/Ml Vial 20 Ml) 10 mg IVP Q4HR PRN PRN Reason: if SBP>140 Stop: 05/01/25 11:29 Nicotine (Nicotine Patch 21 Mg/24 Hr Patch.Td24) 21 mg TOP QDAY [facility] Stop: 05/05/25 10:44 Last Admin: 04/13/25 09:00 Dose: 21 mg Pharmacy Consult (Vancomycin Pharmacy To Dose 1 Each Each) 1 each IV QDAY PRN PRN Reason: PROTOCOL Stop: 05/04/25 12:29 Quetiapine Fumarate (Quetiapine Fumarate 25 Mg Tablet) 25 mg PO HS [facility] Stop: 05/08/25 20:59 Last Admin: 04/12/25 21:44 Dose: 25 mg Sevelamer Carbonate (Sevelamer Carbonate 800 Mg Tablet) 800 mg PO TIDWM [facility] Stop: 05/05/25 07:59 Last Admin: 04/13/25 11:14 Dose: 800 mg Vitamin B Complex/Vit C/Folic Acid (Vit B12/Vit C/Fa (Nephrovite) Tablet) 1 tab PO QDAY [facility] Stop: 05/03/25 11:59 Last Admin: 04/13/25 09:01 Dose: 1 tab Zinc Sulfate (Zinc Sulfate 220 Mg Capsule) 220 mg PO QDAY [facility] Stop: 04/17/25 11:59 Last Admin: 04/13/25 09:01 Dose: 220 mg Discontinued Medications Acetaminophen (Acetaminophen 325 Mg Tablet) 650 mg PO Q4HR PRN PRN Reason: Pain Scale 1-3 fever >100.4 Stop: 04/25/25 18:57 Hydrocodone Bitart/Acetaminophen (Hydrocodone/Apap 5/325 Tablet) 1 tab PO X1 ONE Stop: 04/09/25 06:02 Last Admin: 04/09/25 06:11 Dose: 1 tab Hydrocodone Bitart/Acetaminophen (Hydrocodone/Apap 5/325 Tablet) 1 tab PO X1 ONE Stop: 04/09/25 19:50 Albuterol (Albuterol Rt 2.5 Mg/3 Ml Nebu) 2.5 mg INH X1 ONE Stop: 03/26/25 10:40 Last Admin: 03/26/25 11:41 Dose: 2.5 mg Albuterol/Ipratropium (Albuterol/Ipratropium (Duoneb) Rt Jennifer 3 Ml Nebu) 3 ml INH X1 ONE Stop: 03/26/25 10:40 Last Admin: 03/26/25 11:41 Dose: 3 ml Albuterol/Ipratropium (Albuterol/Ipratropium (Duoneb) Rt Jennifer 3 Ml Nebu) 3 ml INH Q6HRRT [facility] Stop: 04/26/25 00:59 Last Admin: 04/08/25 18:34 Dose: Not Given Albuterol/Ipratropium (Albuterol/Ipratropium (Duoneb) Rt Jennifer 3 Ml Nebu) 3 ml INH Q6HRRT PRN PRN Reason: short Stop: 04/26/25 00:59 Amlodipine Besylate (Amlodipine Besylate 5 Mg Tablet) 5 mg PO QDAY [facility] Stop: 05/01/25 09:29 Last Admin: 04/01/25 10:03 Dose: 5 mg Amlodipine Besylate (Amlodipine Besylate 5 Mg Tablet) 5 mg PO X1 ONE Stop: 04/01/25 10:38 Last Admin: 04/01/25 10:42 Dose: 5 mg Aspirin (Aspirin 81 Mg Chew) 324 mg PO X1 ONE Stop: 03/26/25 19:06 Last Admin: 03/26/25 22:46 Dose: 324 mg Aspirin (Aspirin Ec 81 Mg Tabec) 81 mg PO QDAY [facility] Stop: 04/26/25 08:59 Last Admin: 03/27/25 10:18 Dose: Not Given Aspirin (Aspirin 81 Mg Chew) 81 mg NG QDAY [facility] Stop: 04/26/25 08:59 Last Admin: 03/28/25 09:58 Dose: Not Given Aspirin (Aspirin 81 Mg Chew) 81 mg NG QDAY [facility] Stop: 04/26/25 08:59 Aspirin (Aspirin 81 Mg Chew) 81 mg NG QDAY [facility] Stop: 04/27/25 09:59 Last Admin: 03/31/25 14:56 Dose: Not Given Aspirin (Aspirin Ec 81 Mg Tabec) 81 mg PO QDAY [facility] Stop: 05/01/25 09:29 Last Admin: 04/13/25 09:01 Dose: 81 mg Atropine Sulfate (Atropine Sulf Inj 0.1 Mg/Ml Syr 10 Ml) 1 mg IV X1 PRN PRN Reason: Bradycardia < 35 for greater t Stop: 04/29/25 10:32 Bumetanide (Bumetanide Inj 0.25 Mg/Ml Vial 4 Ml) 1 mg IVP X1 ONE Stop: 03/27/25 10:47 Last Admin: 03/27/25 11:23 Dose: 1 mg Bumetanide (Bumetanide Inj 0.25 Mg/Ml Vial 4 Ml) 1 mg IVP X1 ONE Stop: 03/31/25 11:38 Last Admin: 03/31/25 14:53 Dose: Not Given Bumetanide (Bumetanide Inj 0.25 Mg/Ml Vial 4 Ml) 1 mg IVP X1 ONE Stop: 04/01/25 09:30 Last Admin: 04/01/25 10:03 Dose: 1 mg Bumetanide (Bumetanide Inj 0.25 Mg/Ml Vial 4 Ml) 2 mg IVP X1 ONE Stop: 04/02/25 08:19 Last Admin: 04/02/25 11:45 Dose: 2 mg Carvedilol (Carvedilol 3.125 Mg Tablet) 3.125 mg PO BIDWM [facility] Stop: 05/01/25 17:29 Clopidogrel Bisulfate (Clopidogrel Bisulfate 75 Mg Tablet) 75 mg PO QDAY [facility] Stop: 04/25/25 19:14 Last Admin: 03/27/25 10:18 Dose: Not Given Clopidogrel Bisulfate (Clopidogrel Bisulfate 75 Mg Tablet) 75 mg NG QDAY [facility] Stop: 04/25/25 19:14 Last Admin: 03/27/25 09:54 Dose: 75 mg Olanzapine 10 mg/ Sterile (Water 2.1 ml) 0 mg IM QDAY ONE Stop: 04/09/25 21:43 Last Admin: 04/09/25 22:15 Dose: 1 dose Olanzapine 10 mg/ Sterile (Water 2.1 ml) 0 mg IM X1 ONE Stop: 04/12/25 19:10 Last Admin: 04/12/25 19:44 Dose: 10 dose Diazepam (Diazepam Inj 5 Mg/Ml Vial 2 Ml) 10 mg IVP X1 ONE Stop: 04/09/25 21:09 Diphenhydramine HCl (Diphenhydramine Inj 50 Mg/Ml Vial) 50 mg IVP X1 ONE Stop: 04/07/25 23:02 Last Admin: 04/07/25 23:15 Dose: 50 mg Diphenhydramine HCl (Diphenhydramine Inj 50 Mg/Ml Vial) 50 mg IVP X1 ONE Stop: 04/09/25 17:25 Last Admin: 04/09/25 17:26 Dose: 50 mg Diphenhydramine HCl (Diphenhydramine Inj 50 Mg/Ml Vial) 50 mg IVP X1 ONE Stop: 04/09/25 21:04 Epoetin Servando (Epoetin Servando-Epbx Inj 10,000 Unit/Ml Vial (Esrd)) 10,000 unit SC X1 ONE Stop: 03/29/25 15:01 Last Admin: 03/29/25 16:59 Dose: 10,000 unit Epoetin Servando (Epoetin Servando-Epbx Inj 10,000 Unit/Ml Vial (Non-Esrd)) 10,000 unit SC X1 ONE Stop: 04/06/25 12:01 Last Admin: 04/06/25 11:13 Dose: 10,000 unit Esmolol HCl (Esmolol Inj 10 Mg/Ml Vial 10 Ml) 45 mg IVP X1 ONE Stop: 03/27/25 08:31 Last Admin: 03/27/25 10:04 Dose: Not Given Famotidine (Famotidine Inj 10 Mg/Ml Vial 2 Ml) 20 mg IVP X1 ONE Stop: 04/03/25 14:13 Last Admin: 04/03/25 17:24 Dose: 20 mg Fentanyl Citrate (Fentanyl Cit Inj 50 Mcg/Ml Amp 2ml) 50 mcg IVP X1 ONE Stop: 03/26/25 23:50 Last Admin: 03/27/25 00:01 Dose: 50 mcg Fentanyl Citrate (Fentanyl Cit Inj 50 Mcg/Ml Amp 2ml) 50 mcg IM X1 ONE Stop: 03/26/25 23:51 Last Admin: 04/01/25 12:37 Dose: Not Given Fentanyl Citrate (Fentanyl Cit Inj 50 Mcg/Ml Amp 2ml) 50 mcg IVP X1 ONE Stop: 03/27/25 06:36 Last Admin: 03/27/25 06:40 Dose: 50 mcg Fentanyl Citrate (Fentanyl Cit Inj 50 Mcg/Ml Amp 2ml) 100 mcg IVP X1 ONE Stop: 03/30/25 15:39 Last Admin: 03/30/25 15:38 Dose: 100 mcg Fentanyl Citrate (Fentanyl Cit Inj 50 Mcg/Ml Amp 2ml) 50 mcg IVP X1 ONE Stop: 04/07/25 14:41 Last Admin: 04/07/25 15:03 Dose: 50 mcg Fentanyl Citrate (Fentanyl Cit Inj 50 Mcg/Ml Amp 2ml) 50 mcg IVP X1 ONE Stop: 04/09/25 12:14 Last Admin: 04/09/25 13:32 Dose: Not Given Fentanyl Citrate (Fentanyl Cit Inj 50 Mcg/Ml Amp 2ml) 12.5 mcg IVP X1 ONE Stop: 04/09/25 13:01 Last Admin: 04/09/25 13:00 Dose: 12.5 mcg Furosemide (Furosemide Inj 10 Mg/Ml 4ml Vial) 60 mg IVP X1 ONE Stop: 03/26/25 11:28 Last Admin: 03/26/25 11:36 Dose: 60 mg Furosemide (Furosemide Inj 10 Mg/Ml 4ml Vial) 40 mg IVP X1 ONE Stop: 04/13/25 15:05 Haloperidol Lactate (Haloperidol Lact Inj 5 Mg/Ml Vial) 5 mg IV X1 PRN PRN Reason: AGITATION (SEVERE) Stop: 04/05/25 11:59 Last Admin: 03/31/25 13:39 Dose: 5 mg Haloperidol Lactate (Haloperidol Lact Inj 5 Mg/Ml Vial) 5 mg IV X1 PRN PRN Reason: AGITATION (SEVERE) Haloperidol Lactate (Haloperidol Lact Inj 5 Mg/Ml Vial) 5 mg IM X1 ONE Stop: 04/08/25 04:42 Last Admin: 04/08/25 04:54 Dose: 5 mg Haloperidol Lactate (Haloperidol Lact Inj 5 Mg/Ml Vial) 5 mg IM X1 ONE Stop: 04/10/25 07:29 Last Admin: 04/10/25 07:38 Dose: 5 mg Haloperidol Lactate (Haloperidol Lact Inj 5 Mg/Ml Vial) 5 mg IM X1 ONE Stop: 04/10/25 08:17 Last Admin: 04/10/25 19:14 Dose: Not Given Heparin Sodium (Beef Lung) (Heparin Sod Lock Syr 100 Unit/Ml) 500 unit STFIELD X1 ONE Stop: 04/07/25 14:41 Last Admin: 04/07/25 15:00 Dose: 500 unit Heparin Sodium (Porcine) (Heparin Sod Inj 5000 Unit/Ml Vial) 5,000 unit SC Q12HR [facility] Stop: 04/09/25 20:59 Last Admin: 03/27/25 09:54 Dose: 5,000 unit Heparin Sodium (Porcine) (Heparin Sod Inj 5000 Unit/Ml Vial) 5,000 unit SC Q8HR CRIS Stop: 04/10/25 13:59 Last Admin: 04/08/25 14:51 Dose: Not Given Heparin Sodium (Porcine) (Heparin Sod Inj 1000 Unit/Ml Vial 10 Ml) 1,600 unit INDWELLCAT X1 ONE Stop: 03/27/25 20:07 Last Admin: 03/28/25 01:36 Dose: 1,600 unit Heparin Sodium (Porcine) (Heparin Sod Inj 1000 Unit/Ml Vial 10 Ml) 2,600 unit INDWELLCAT X1 ONE Stop: 03/28/25 19:05 Last Admin: 03/28/25 14:50 Dose: 2,600 unit Heparin Sodium (Porcine) (Heparin Sod Inj 1000 Unit/Ml Vial 10 Ml) 2.6 unit INDWELLCAT X1 PRN PRN Reason: Dialysis Stop: 04/11/25 20:48 Heparin Sodium (Porcine) (Heparin Sod Inj 1000 Unit/Ml Vial 10 Ml) 2,600 unit INDWELLCAT X1 PRN PRN Reason: DIALYSIS Stop: 04/11/25 19:32 Last Admin: 04/06/25 13:13 Dose: 2,600 unit Heparin Sodium (Porcine) (Heparin Sod Inj 5000 Unit/Ml Vial) 6,700 unit 80 unit/kg (6700 unit) IV X1 ONE; Protocol Stop: 04/11/25 16:31 Last Admin: 04/11/25 17:11 Dose: 6,700 unit Heparin Sodium (Porcine) (Heparin Sod Inj 5000 Unit/Ml Vial) 6,692 unit IVP X1 ONE Stop: 04/12/25 01:11 Last Admin: 04/12/25 01:21 Dose: 6,692 unit Heparin Sodium (Porcine) (Heparin Sod Inj 5000 Unit/Ml Vial) 6,700 unit IVP X1 ONE Stop: 04/12/25 09:04 Last Admin: 04/12/25 09:10 Dose: 6,700 unit Heparin Sodium (Porcine) (Heparin Sod Inj 5000 Unit/Ml Vial) 3,356 unit IVP X1 ONE Stop: 04/12/25 22:30 Last Admin: 04/12/25 22:42 Dose: 3,356 unit Hydralazine HCl (Hydralazine Inj 20 Mg/Ml Vial) 10 mg IVP X1 ONE Stop: 04/02/25 03:09 Last Admin: 04/02/25 03:25 Dose: 10 mg Hydromorphone HCl (Hydromorphone Inj 2 Mg/Ml Vial) 1 mg IVP X1 ONE Stop: 04/03/25 14:11 Last Admin: 04/03/25 14:20 Dose: 1 mg Hydromorphone HCl (Hydromorphone Inj 2 Mg/Ml Vial) 1 mg IVP Q4HR PRN PRN Reason: PAIN SCALE 4-10(Mod-Sev Stop: 04/08/25 15:32 Last Admin: 04/07/25 20:11 Dose: 1 mg Hydromorphone HCl (Hydromorphone Inj 2 Mg/Ml Vial) 0.5 mg IVP X1 ONE Stop: 04/06/25 16:09 Last Admin: 04/06/25 16:19 Dose: 0.5 mg Ceftriaxone Sodium/Dextrose (Rocephin/D5w 1gm Iv Premix) 1 gm in 50 mls @ 100 mls/hr IV QDAY CRIS Stop: 04/02/25 12:39 Last Infusion: 03/26/25 14:09 Dose: Infused Doxycycline Hyclate 100 mg/ (Sodium Chloride) 100 mls @ 100 mls/hr IV X1 ONE Stop: 03/26/25 13:39 Last Infusion: 03/26/25 16:43 Dose: Infused Acetaminophen (Ofirmev Inj) 1,000 mg in 100 mls @ 250 mls/hr IV NOW ONE Stop: 03/26/25 13:48 Last Infusion: 03/26/25 14:10 Dose: Infused Sodium Chloride (Ns) 1,000 mls @ 999 mls/hr IV .Q1H1M ONE Stop: 03/26/25 14:58 Last Infusion: 03/26/25 15:00 Dose: Infused Dexmedetomidine/Sodium Chloride (Precedex Ivpb) 400 mcg in 100 mls @ 4.423 mls/hr IV .[id number] PRN; Protocol PRN Reason: Per PROTOCOL Stop: 04/25/25 14:17 Last Titration: 03/27/25 00:43 Dose: 0.8 mcg/kg/hr, 17.69 mls/hr Lactated Ringer's (Lactated Ringers) 1,000 mls @ 999 mls/hr IV .Q1H1M ONE Stop: 03/26/25 18:51 Last Admin: 03/26/25 18:57 Dose: 999 mls/hr Vancomycin HCl 1,500 mg/ (Sodium Chloride) 500 mls @ 198 mls/hr IV X1 ONE Stop: 03/26/25 22:01 Last Admin: 03/26/25 22:50 Dose: 198 mls/hr Norepinephrine/Dextrose (Levophed In D5w 8mg/250ml) 8 mg in 250 mls @ 8.292 mls/hr IV .Q24H PRN; Protocol PRN Reason: PER PROTOCOL Stop: 04/25/25 19:49 Last Titration: 03/31/25 08:00 Dose: 0 mcg/kg/min, 0 mls/hr Piperacillin Sod/Tazobactam (Sod 3.375 gm/ Sodium Chloride) 50 mls @ 100 mls/hr IV X1 ONE Stop: 03/26/25 20:44 Last Admin: 03/26/25 22:53 Dose: 100 mls/hr Sodium Chloride (Ns) 1,000 mls @ 999 mls/hr IV .Q1H1M ONE Stop: 03/26/25 21:17 Last Infusion: 03/26/25 21:00 Dose: Infused Dexmedetomidine/Sodium Chloride (Precedex Ivpb) 400 mcg in 100 mls @ 4.423 mls/hr IV .[id number] PRN; Protocol PRN Reason: Per PROTOCOL Stop: 04/25/25 14:17 Piperacillin/Tazobactam/Dextrose (Zosyn) 2.25 gm in 50 mls @ 100 mls/hr IV X1 ONE Stop: 03/26/25 21:14 Last Admin: 03/27/25 00:38 Dose: Not Given Piperacillin Sod/Tazobactam (Sod 3.375 gm/ Sodium Chloride) 50 mls @ 12.5 mls/hr IV Q12HR CRIS Stop: 04/03/25 08:59 Dexmedetomidine/Sodium Chloride (Precedex Ivpb) 400 mcg in 100 mls @ 4.423 mls/hr IV .[id number] PRN; Protocol PRN Reason: Per PROTOCOL Stop: 04/25/25 14:17 Last Titration: 04/02/25 10:34 Dose: 0 mcg/kg/hr, 0 mls/hr Fentanyl Citrate (Sublimaze Inj 2,500 Mcg/250 Ml Bag) 2,500 mcg in 250 mls @ 2.5 mls/hr IV .Q24H PRN; Protocol PRN Reason: PER PROTOCOL Stop: 03/31/25 23:52 Last Titration: 03/31/25 07:12 Dose: 0 mcg/hr, 0 mls/hr Piperacillin Sod/Tazobactam (Sod 3.375 gm/ Sodium Chloride) 50 mls @ 12.5 mls/hr IV Q6HR CRIS Stop: 04/03/25 04:59 Last Infusion: 03/27/25 19:00 Dose: Infused Piperacillin/Tazobactam/Dextrose (Zosyn) 3.375 gm in 50 mls @ 12.5 mls/hr IV Q8HR CRIS Stop: 04/03/25 13:59 Last Admin: 03/30/25 06:43 Dose: 12.5 mls/hr Vasopressin/Sodium Chloride (Vasostrict/Ns Ivpb) 20 unit in 100 mls @ 9 mls/hr IV .Q11H7M PRN; Protocol PRN Reason: PER PROTOCOL Stop: 04/26/25 07:13 Last Titration: 03/27/25 08:23 Dose: 0 unit/min, 0 mls/hr Sodium Chloride (Ns) 500 mls @ 999 mls/hr IV .Q31M ONE Stop: 03/27/25 07:53 Last Admin: 03/27/25 10:03 Dose: Not Given Epinephrine/Sodium Chloride (Adrenalin/Ns 16 Mg Ivpb) 16 mg in 250 mls @ 4.373 mls/hr IV .Q24H PRN; Protocol PRN Reason: Per Protocol Stop: 04/26/25 07:41 Last Titration: 03/27/25 08:22 Dose: 0 mcg/kg/min, 0 mls/hr Albumin Human (Albuminar-25 Ivpb) 25 gm in 100 mls @ 100 mls/hr IV QDAY CR[facility] Stop: 03/30/25 07:45 Last Infusion: 03/27/25 19:00 Dose: Infused Dobutamine HCl/Dextrose (Dobutrex/D5w Ivpb) 500 mg in 250 mls @ 2.799 mls/hr IV .Q24H CRIS Stop: 04/26/25 08:09 Last Admin: 03/28/25 09:43 Dose: Not Given Esmolol HCl (Esmolol In Ns 2000 Mg Ivpb) 2,000 mg in 100 mls @ 139.95 mls/hr IV .Q43M PRN; Protocol PRN Reason: PER PROTOCOL Stop: 04/26/25 08:23 Esmolol HCl (Esmolol In Ns 2000 Mg Ivpb) 2,000 mg in 100 mls @ 13.995 mls/hr IV .Q7H9M PRN; Protocol PRN Reason: PER PROTOCOL Stop: 04/26/25 08:23 Propofol (Diprivan Ivpb) 1,000 mg in 100 mls @ 2.799 mls/hr IV .Q24H PRN; Protocol PRN Reason: PER PROTOCOL Stop: 04/26/25 17:33 Last Titration: 03/31/25 07:12 Dose: 0 mcg/kg/min, 0 mls/hr Vancomycin/Sodium Chloride (Vancomycin/Ns 500 Mg Ivpb) 100 mls @ 120 mls/hr IV X1 ONE Stop: 03/28/25 10:49 Last Admin: 03/28/25 09:50 Dose: 120 mls/hr Vasopressin/Sodium Chloride (Vasostrict/Ns Ivpb) 20 unit in 100 mls @ 9 mls/hr IV .Q11H7M PRN; Protocol PRN Reason: PER PROTOCOL Stop: 04/27/25 16:26 Epinephrine/Sodium Chloride (Adrenalin/Ns 16 Mg Ivpb) 16 mg in 250 mls @ 4.416 mls/hr IV .Q24H PRN; Protocol PRN Reason: Per Protocol Stop: 04/27/25 16:27 Potassium Phosphate (Pot Phos 15 Mmol In Ns 250 Ml) 15 mmol in 250 mls @ 62.5 mls/hr IV Q4H CRIS Stop: 03/29/25 01:33 Last Admin: 03/28/25 21:28 Dose: 62.5 mls/hr Vancomycin/Sodium Chloride (Vancomycin/Ns 500 Mg Ivpb) 100 mls @ 120 mls/hr IV X1 ONE Stop: 03/29/25 10:49 Last Admin: 03/29/25 10:11 Dose: 120 mls/hr Albumin Human (Albuminar-25 Ivpb) 25 gm in 100 mls @ 100 mls/min IV PRN PRN PRN Reason: DIALYSIS Last Admin: 04/06/25 09:15 Dose: 100 mls/min Vancomycin/Sodium Chloride (Vancomycin/Ns 750 Mg Ivpb) 750 mg in 150 mls @ 120 mls/hr IV X1 ONE Stop: 03/30/25 11:14 Vancomycin/Sodium Chloride (Vancomycin/Ns 500 Mg Ivpb) 100 mls @ 120 mls/hr IV X1 ONE Stop: 03/30/25 10:49 Last Admin: 03/30/25 09:25 Dose: 120 mls/hr Ceftriaxone Sodium 2 gm/ (Sodium Chloride) 50 mls @ 100 mls/hr IV QDAY [facility] Stop: 04/06/25 10:44 Last Admin: 03/31/25 09:02 Dose: 100 mls/hr Vancomycin/Sodium Chloride (Vancomycin/Ns 500 Mg Ivpb) 100 mls @ 120 mls/hr IV X1 ONE Stop: 03/31/25 10:49 Last Infusion: 03/31/25 18:45 Dose: Infused Ceftriaxone Sodium/Dextrose (Rocephin/D5w 1gm Iv Premix) 1 gm in 50 mls @ 100 mls/hr IV QDAY [facility] Stop: 04/08/25 08:59 Last Admin: 04/04/25 09:13 Dose: 100 mls/hr Albumin Human (Albuminar-25 Ivpb) 25 gm in 100 mls @ 100 mls/hr IV X1 ONE Stop: 04/02/25 09:18 Last Admin: 04/02/25 11:46 Dose: 100 mls/hr Sodium Chloride (Ns) 250 mls @ 999 mls/hr IV .Q16M ONE Stop: 04/03/25 15:18 Last Admin: 04/04/25 07:53 Dose: Not Given Cefepime HCl 2 gm/ Sodium (Chloride) 50 mls @ 100 mls/hr IV QDAY@1800 [facility] Stop: 04/11/25 12:44 Last Admin: 04/10/25 17:15 Dose: Not Given Vancomycin HCl (Vancomycin/Water 1250 Mg Ivpb) 250 mls @ 120 mls/hr IV X1 ONE Stop: 04/04/25 14:49 Last Admin: 04/04/25 14:16 Dose: 120 mls/hr Vancomycin/Sodium Chloride (Vancomycin/Ns 500 Mg Ivpb) 100 mls @ 60 mls/hr IV X1 ONE Stop: 04/05/25 11:39 Last Infusion: 04/05/25 19:44 Dose: Infused Magnesium Sulfate (Magnesium Sulfate Ivpb) 4 gm in 50 mls @ 12.5 mls/hr IV X1 ONE Stop: 04/06/25 12:21 Last Admin: 04/06/25 13:13 Dose: 12.5 mls/hr Cefazolin Sodium/Dextrose (Ancef Ivpb) 1 gm in 50 mls @ 100 mls/hr IV X1 ONE Stop: 04/07/25 15:09 Last Admin: 04/07/25 15:00 Dose: 100 mls/hr Cefepime HCl 2 gm/ Sodium (Chloride) 50 mls @ 100 mls/hr IV X1 ONE Stop: 04/08/25 22:20 Last Admin: 04/08/25 22:16 Dose: 100 mls/hr Vancomycin/Sodium Chloride (Vancomycin/Ns 500 Mg Ivpb) 100 mls @ 60 mls/hr IV X1 ONE Stop: 04/09/25 11:39 Last Admin: 04/09/25 09:36 Dose: 60 mls/hr Vancomycin/Sodium Chloride (Vancomycin/Ns 750 Mg Ivpb) 750 mg in 150 mls @ 120 mls/hr IV X1 ONE Stop: 04/11/25 11:14 Last Admin: 04/11/25 10:28 Dose: 120 mls/hr Magnesium Sulfate (Magnesium Sulfate Ivpb) 4 gm in 50 mls @ 12.5 mls/hr IV X1 ONE Stop: 04/11/25 11:19 Last Admin: 04/11/25 08:16 Dose: 12.5 mls/hr Lactated Ringer's (Lactated Ringers) 1,000 mls @ 999 mls/hr IV .Q1H1M ONE Stop: 04/13/25 14:05 Vancomycin/Sodium Chloride (Vancomycin/Ns 500 Mg Ivpb) 100 mls @ 120 mls/hr IV X1 ONE Stop: 04/13/25 14:19 Insulin Degludec (Insulin Degludec 5 Unit/0.05 Ml (Per 5 Units)) 18 unit SC X1 ONE Stop: 03/26/25 20:46 Last Admin: 03/26/25 22:55 Dose: 18 unit Insulin Degludec (Insulin Degludec 5 Unit/0.05 Ml (Per 5 Units)) 12 unit SC HS [facility] Stop: 04/26/25 20:59 Last Admin: 03/29/25 21:51 Dose: Not Given Insulin Degludec (Insulin Degludec 5 Unit/0.05 Ml (Per 5 Units)) 18 unit SC HS [facility] Stop: 04/29/25 20:59 Insulin Degludec (Insulin Degludec 5 Unit/0.05 Ml (Per 5 Units)) 20 unit SC HS [facility] Stop: 04/29/25 20:59 Last Admin: 04/01/25 00:10 Dose: Not Given Insulin Human Lispro (Insulin Lispro (Admelog) 1 Unit/0.01 Ml Unit) 0 unit SC AC [facility]; Protocol Stop: 04/26/25 07:29 Insulin Human Lispro (Insulin Lispro (Admelog) 1 Unit/0.01 Ml Unit) 0 unit SC Q6HR [facility]; Protocol Stop: 04/25/25 20:29 Insulin Human Lispro (Insulin Lispro (Admelog) 1 Unit/0.01 Ml Unit) 0 unit SC Q6HR [facility]; Protocol Stop: 04/25/25 20:29 Last Admin: 03/27/25 05:40 Dose: 5 unit Insulin Human Lispro (Insulin Lispro (Admelog) 1 Unit/0.01 Ml Unit) 10 unit SC X1 ONE Stop: 03/27/25 04:00 Last Admin: 03/27/25 04:13 Dose: 10 unit Insulin Human Lispro (Insulin Lispro (Admelog) 1 Unit/0.01 Ml Unit) 0 unit SC Q6HR [facility]; Protocol Stop: 04/25/25 20:29 Last Admin: 04/02/25 00:16 Dose: 3 unit Insulin Human Lispro (Insulin Lispro (Admelog) 1 Unit/0.01 Ml Unit) 0 unit SC [facility]; Protocol Stop: 05/02/25 07:29 Last Admin: 04/03/25 20:17 Dose: Not Given Insulin Human Lispro (Insulin Lispro (Admelog) 1 Unit/0.01 Ml Unit) 0 unit SC Q6HR [facility]; Protocol Stop: 05/04/25 05:59 Last Admin: 04/04/25 17:46 Dose: 3 unit Insulin Human Regular (Insulin Hum Regular 1 Unit/0.01 Ml (Per Unit)) 10 unit IV X1 ONE Stop: 03/26/25 12:37 Last Admin: 03/26/25 13:08 Dose: 10 unit Ketamine HCl (Ketamine 50 Mg/Ml Vial 10 Ml) 100 mg IVP X1 ONE Stop: 03/26/25 14:19 Last Admin: 03/26/25 14:39 Dose: 100 mg Labetalol HCl (Labetalol Inj 5 Mg/Ml Vial 20 Ml) 10 mg IVP X1 ONE Stop: 04/01/25 10:31 Last Admin: 04/01/25 12:33 Dose: Not Given Labetalol HCl (Labetalol Inj 5 Mg/Ml Vial 20 Ml) 10 mg IVP X1 ONE Stop: 04/01/25 11:05 Last Admin: 04/01/25 11:09 Dose: 10 mg Lidocaine HCl (Lidocaine Inj Pf 1% 30 Ml Vial) 5 ml EPID X1 ONE Stop: 04/07/25 14:41 Last Admin: 04/07/25 15:00 Dose: 5 ml Lidocaine HCl (Lidocaine Hcl 1% 20 Ml Vial) 20 ml INFL X1 ONE Stop: 04/09/25 12:14 Last Admin: 04/09/25 12:40 Dose: 20 ml Lidocaine HCl (Lidocaine Hcl 1% 20 Ml Vial) 10 ml INFL X1 ONE Stop: 04/09/25 13:04 Last Admin: 04/09/25 13:03 Dose: 10 ml Lorazepam (Lorazepam 0.5 Mg Tablet) 2 mg PO X1 ONE Stop: 04/08/25 01:31 Last Admin: 04/08/25 01:40 Dose: 2 mg Lorazepam (Lorazepam 0.5 Mg Tablet) 2 mg PO X1 ONE Stop: 04/08/25 04:37 Midazolam HCl (Midazolam Inj 1 Mg/Ml Vial 2 Ml) 2 mg IV PRN ONE Stop: 03/26/25 11:17 Last Admin: 03/26/25 11:36 Dose: 2 mg Midazolam HCl (Midazolam Inj 1 Mg/Ml Vial 2 Ml) 2 mg IVP X1 ONE Stop: 03/27/25 07:25 Last Admin: 03/27/25 07:24 Dose: 2 mg Midazolam HCl (Midazolam Inj 1 Mg/Ml Vial 2 Ml) 2 mg IVP X1 ONE Stop: 03/28/25 18:11 Last Admin: 03/28/25 18:24 Dose: Not Given Midazolam HCl (Midazolam Inj 1 Mg/Ml Vial 2 Ml) 4 mg IVP X1 ONE Stop: 03/30/25 15:39 Last Admin: 03/30/25 15:38 Dose: 4 mg Midazolam HCl (Midazolam Inj 1 Mg/Ml Vial 2 Ml) 1 mg IVP X1 ONE Stop: 04/07/25 14:41 Last Admin: 04/07/25 14:53 Dose: 1 mg Midazolam HCl (Midazolam Inj 1 Mg/Ml Vial 2 Ml) 2 mg IVP X1 ONE Stop: 04/09/25 12:14 Last Admin: 04/09/25 13:33 Dose: Not Given Midazolam HCl (Midazolam Inj 1 Mg/Ml Vial 2 Ml) 0.5 mg IVP X1 ONE Stop: 04/09/25 12:41 Last Admin: 04/09/25 12:40 Dose: 0.5 mg Midazolam HCl (Midazolam Inj 1 Mg/Ml Vial 2 Ml) 2 mg IM X1 ONE Stop: 04/10/25 08:19 Last Admin: 04/10/25 19:14 Dose: Not Given Morphine Sulfate (Morphine Sulf Inj 10 Mg/Ml Vial) 2 mg IVP X1 ONE Stop: 04/03/25 13:09 Last Admin: 04/03/25 13:27 Dose: 2 mg Morphine Sulfate (Morphine Sulf Inj 10 Mg/Ml Vial) 2 mg IM X1 ONE Stop: 04/10/25 07:45 Morphine Sulfate (Morphine Sulf Inj 10 Mg/Ml Vial) 2 mg IVP X1 ONE Stop: 04/10/25 09:50 Last Admin: 04/10/25 09:54 Dose: 2 mg Mupirocin (Mupirocin Oint 2% 15 Gm Tube) 0 gm TOP TID [facility] Stop: 04/05/25 08:29 Last Admin: 04/05/25 06:02 Dose: 1 applicatio Naloxone HCl (Naloxone Inj 1 Mg/Ml Syringe 2 Ml) 0.4 mg IV X1 ONE Stop: 03/26/25 10:40 Last Admin: 03/26/25 10:45 Dose: 0.4 mg Nicotine (Nicotine Patch 21 Mg/24 Hr Patch.Td24) 21 mg TOP X1 ONE Stop: 04/05/25 13:57 Last Admin: 04/05/25 14:10 Dose: 21 mg Olanzapine (Olanzapine 5 Mg Tablet) 10 mg PO X1 ONE Stop: 04/11/25 20:55 Last Admin: 04/11/25 21:27 Dose: 10 mg Pantoprazole Sodium (Pantoprazole Inj 40 Mg Vial) 40 mg IVP QDAY [facility] Stop: 04/25/25 19:14 Last Admin: 03/31/25 09:03 Dose: 40 mg Pharmacy Consult (Vancomycin Pharmacy To Dose 1 Each Each) 1 each IV QDAY [facility] Stop: 04/25/25 19:14 Last Admin: 03/31/25 09:53 Dose: Not Given Potassium Chloride (Potassium Chloride 20 Meq Tabcr) 40 meq PO X1 ONE Stop: 04/11/25 14:38 Last Admin: 04/11/25 15:05 Dose: 40 meq Quetiapine Fumarate (Quetiapine Fumarate 25 Mg Tablet) 25 mg PO X1 ONE Stop: 04/05/25 19:44 Last Admin: 04/05/25 20:08 Dose: 25 mg Rocuronium [place] (Rocuronium Inj 10 Mg/Ml Vial 10 Ml) 88 mg 1 mg/kg (88 mg) IV X1 ONE Stop: 03/26/25 14:19 Last Admin: 03/26/25 14:45 Dose: 88 mg Sodium Chloride (Sodium Chloride Rt 10% 15 Ml Nebu) 5 ml INH X1 ONE Stop: 03/26/25 15:43 Last Admin: 03/26/25 19:33 Dose: Not Given Sodium Chloride (Sodium Chloride Rt 10% 15 Ml Nebu) 5 ml INH X1 ONE Stop: 04/05/25 10:48 Tuberculin PPD (Tuberculin Ppd Inj 5 Unit/0.1 Ml Dose) 5 unit ID X1 ONE Stop: 04/01/25 16:59 Last Admin: 04/01/25 18:08 Dose: Not Given Tuberculin PPD (Tuberculin Ppd Inj 5 Unit/0.1 Ml Dose) 5 unit ID X1 ONE Stop: 04/06/25 10:46 Last Admin: 04/06/25 13:34 Dose: 5 unit Assessment & Plan Plan Vashti Ross is a 59-year-old F with a PMH of 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 as well as DVT/PE that occurred during current hospitalization, PFO s/p 03/31/25 IVC filter placement, multiple masses spread throughout the body suspicious for metastasis (including locations at pancreatic head, right hilum, right lower lobe of the lung, left adrenal gland, and uterine fundus), chronically incarcerated umbilical hernia, stage IV CKD, HCV(+) status, mild CHF (EF of 40 to 45% from 03/28/25 echocardiogram), poorly controlled insulin-independent T2DM, hypertension, asthma, methamphetamine use disorder, and a chronic right leg wound who returns back to the ICU from floors for acute blood loss anemia concerning for worsening hemorrhagic stroke. Pertinent lab findings today include: WBC bump to 12.0 from 8.9, Hgb drop to 5.7 from 9.5 (MCV 95, RDW 54.4), normal platelet count 382, PT 14.3, INR 1.3, APTT >139.0, BUN 66, creatinine 2.4, glucose 157, calculated osmolality 301, and (+) stool occult blood. CTAP showed cholelithiasis, 18 mm left adrenal nodule, previously noted splenic artery infarct, and moderate bilateral renal scar formation. Chest CT showed an opacity at the right perihilar base suggesting possible pneumonia or pulmonary infarction. Head CT showed mild worsening of hemorrhagic conversion. Currently, patient is to receive 2 units of pRBCs for her acute blood loss anemia with one dose of IV Lasix 40 mg being given before the first transfusion to avoid TACO due to her heart failure. Per neurology recommendations, heparin has been stopped to prevent further worsening of hemorrhagic conversion (seen on repeat head CT today) and aspirin will be avoided. GI has been consulted for suspected acute blood loss anemia (in the setting of accompanying melena) 2/2 GI bleed 2/2 heparin use. As mentioned previously, hematology-oncology and radiation-oncology have been consulted for the multiple masses spread throughout the body. Tentatively, a left kidney biopsy is slated for tomorrow once cleared with interventional radiology in order to determine a primary source. NEURO #Hemorrhagic conversion of recent ischemic infarcts #Subarachnoid hemorrhage #Recently s/p acute multiple embolic-type foci of the occipital lobes, bilateral frontal lobes, and bilateral parietal lobes #PFO #Atrial septal aneurysm #Endocarditis - r/o #Tricuspid valve vegetation - r/o Currently, there is a concern for worsening hemorrhagic stroke due to an acute drop in Hgb today to 5.7 from 9.5 that occurred concomitantly with WEIGHT SHIFTER called for a hypotensive episode of BP in the 70s/40s Other hematological lab values: normal platelet count 382, PT 14.3, INR 1.3, APTT >139.0, WBC bump to 12.0 from 8.9 04/[address] showed more prominent hemorrhage of the posterior left parietal infarct than an earlier head CT obtained on the same day (other areas of hemorrhage in the right frontal lobe remain stable) Working diagnosis is that the suspected hemorrhagic conversion is 2/2 heparin drip which was started around 2 days ago DDx: None Dx: -None Rx: -Per neurology recommendations, heparin will be held and aspirin will be avoided for now -2 units of pRBCs w/ a dose of IV Lasix 40 mg before first transfusion (to avoid TACO from patient's HF) -Head of bed elevation: 30 degrees or greater -Neurology has been consulted, awaiting recommendations RRx: -Repeat head CT to monitor status of bleeding and recently infarcted areas of the brain -Post-transfusion H&H CARDIO No active problems PULM No active problems GI #Acute blood loss anemia (suspected to be 2/2 GI bleed 2/2 heparin use) There is concern for a new GI bleed due to an acute drop in Hgb today to 5.7 from 9.5 in the setting of melena and (+) stool occult blood Working diagnosis is that the suspected acute blood loss anemia is 2/2 heparin drip which was started around 2 days ago DDx: worsening hemorrhagic conversion of recent ischemic infarcts Dx: -None Rx: -Heparin will be held and aspirin will be avoided for now as mentioned above -2 units of pRBCs w/ a dose of IV Lasix 40 mg before first transfusion (to avoid TACO from patient's HF) -GI has been consulted, awaiting recommendations RRx: -Post-transfusion H&H -Follow up on potential endoscopic studies in the near-future to determine source of bleeding NEPHRO #Multiple masses, including pancreatic, hilar, pulmonary, adrenal, renal, uterine Multiple masses spread throughout the body suspicious for metastasis (including locations at pancreatic head, right hilum, right lower lobe of the lung, left adrenal gland, left kidney and uterine fundus) DDx: metastatic malignancy originating from any of the above possible locations Dx: -None Rx: -Biopsy of left renal mass (once cleared by interventional radiology) to determine primary origin -Hematology-oncology and radiation-oncology have been consulted, awaiting recommendations RRx: -None URO No active problems HEME #Acute blood loss anemia (suspected to be 2/2 GI bleed 2/2 heparin use) See GI section #Hypercoagulable state ENDO No active problems ID No active problems MSK No active problems SKIN No active problems DVT prophylaxis: None (Bleeding Risk) GI prophylaxis: None (Bleeding Risk) Diet: Carbohydrate Consistent Low Jane: Present Lines: Peripheral IV, Central IV Antibiotics: Vancomycin CODE STATUS: FULL Reason for ICU care: acute blood loss anemia concerning for worsening hemorrhagic stroke (seen on 04/[address] in the setting of acute Hgb drop to 5.7 from 9.5) Patient plan of care was discussed with the attending vp genetic, Dr. Rodrigues . James Collins, PGY-1 Attending Provider Attestation/Addendum Patient seen and examined with the above resident, James Collins DO. I agree with the findings, assessment, and plan of care as document except for any differences below. Patient returns to ICU undifferentiated hypotension and acute encephalopathy. She does have concerning findings for possible bilateral lower extremity numbness and tingling, this should warrant imaging of the spine to exclude presence of underlying epidural lesion. Patient's hypercoagulable state continues to be unclear in etiology. 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 Neurology is following and we will repeat imaging in the interval. Patient did have acute blood loss with drop in hemoglobin though there is no evidence of gross bleeding at this point. Transfusion was given appropriately to push to hemoglobin back above goal of 7. Patient does have multiple masses that may be amenable to biopsy and hypercoagulable state secondary to malignancy. Nonetheless, patient should not be rechallenged she does have IVC filter and this may be the only safe option at this point given her significant history of bleeding with even controlled challenge. Patient and her updated on plan of care at bedside. Continue monitor closely in ICU given risk of rapid neurologic deterioration. Total critical care time: I personally spent 40 minutes for review of physiologic parameters, directing plan of care throughout today, coordination of care with other specialists, and counseling patient and family at bedside. This is exclusive of time spent teaching and staff performing separate billable procedures. Patient remains at significant risk for further morbidity and mortality warranting close monitoring care only available in the ICU. Critical care services required for cerebral infarct with hemorrhagic conversion, hypercoagulable state, pulmonary embolism, acute renal failure, and acute blood loss anemia, acute metabolic encephalopathy.
[2025-04-13] MEDS: VANCOMYCIN/NS 500 MG IVPB 100 ML 120 MG IV (16:02)
[2025-04-13] MEDS: GABAPENTIN 100 MG CAPSULE PO ×2 (16:03→21:30)
[2025-04-13] MEDS: FUROSEMIDE INJ 10 MG/ML 4ML VIAL 40 MG IVP (16:47)
[2025-04-13] MEDS: ATORVASTATIN CALCIUM 20 MG TABLET 80 MG PO (20:33)
[2025-04-13] MEDS: INSULIN DEGLUDEC 5 UNIT/0.05 ML (PER 5 UNITS) 24 UNIT SC (20:45)
--- NOTE | 2025-04-13 21:18 | PD.IMCONS ---
HPI Data of Consult Requesting Physician: Hayley Dubois MD Primary Care Provider: Physician No Primary/Family Consult Narrative Reason for consult: Acute drop in H/H 5.7/18.5 from 9.5 and 30.7, FOBT positive History of present illness: 59 years old female evaluated at request of the ICU team for acute drop in hemoglobin hematocrit to 5.7 and 18.5 from baseline of 9.5 and 30.7 Platelet count is 382,000 pro time INR is 1.3 Patient was on heparin with multiple occipital infarcts as well as pulmonary embolism in the right periphery in the right base However the heparin has been held because patient also has a subarachnoid bleed No no evidence of evelina hematemesis melena hematochezia or bright red bleeding per rectum Patient is somewhat agitated at the time of my Briefly patient was admitted on 03/26/2025 for altered mental status and and route received 8 mg of Narcan with improvement of the mental status went on to have hypoxic respiratory failure renal failure sepsis NSTEMI and multiple other metabolic disorders cc:: cc: Hayley Dubois MD Review of Systems Review of Systems ROS Unobtainable: unobtainable due to medical condition Past Medical History Surgical History OTHER SURGICAL HX: Diabetes mellitus type 2 Bronchial asthma Meds Home Medications and Allergies Home Medications ?Medication ?Instructions ?Recorded ?Confirmed ?Type metformin 500 mg tablet 500 mg PO DAILY 04/04/25 04/04/25 History Allergies Allergy/AdvReac Type Severity Reaction Status Date / Time No Known Allergies Allergy Verified 03/26/25 11:03 Exam Vital Signs Temp Pulse Resp BP Pulse Ox O2 Del Method O2 Flow Rate 97.8 F 84 23 H 113/60 95 Room Air 3 04/13/25 20:21 04/13/25 20:31 04/13/25 20:21 04/13/25 20:31 04/13/25 20:21 04/13/25 12:00 04/13/25 20:21 FiO2 40 04/13/25 12:00 Constitutional Comments: Chronically ill-appearing Routine Respiratory Exam Comments: Scattered rhonchi at the bases Routine Abdominal Exam Comments: Soft nontender Results Labs 04/13/25 11:47 04/13/25 13:33 Labs: Short CBC 04/13/25 04/13/25 Range/Units 09:58 11:47 WBC 12.0 H (3.6-11.0) Thou/mm3 Hgb 5.7 L* D 6.4 L* (12.0-16.0) g/dL Hct 18.5 L* 20.0 L* (36.0-46.0) % Plt Count 382 D (140-440) Thou/mm3 BMP 04/13/25 04/13/25 09:58 13:33 Sodium 140 140 Potassium 4.4 4.2 Chloride 103 103 Carbon Dioxide 24.6 23.6 BUN 66 H 69 H Creatinine 2.4 H 2.5 H Glucose 157 H 167 H Calcium 8.8 8.8 Liver Function 04/13/25 04/13/25 Range/Units 09:58 13:33 Total Bilirubin 0.4 0.4 (0.3-1.2) mg/dL AST 15 14 (0-34) U/L ALT 9 L 8 L (10-49) U/L Alkaline Phosphatase 51 D 49 (46-116) U/L Albumin 3.0 L D 2.9 L (3.5-5.0) gm/dL ABG Interpretation ABG results: 03/26/25 03/26/25 03/26/25 11:18 11:44 16:23 ABG pH 7.27 L Cancelled ABG pCO2 40 Cancelled ABG pO2 146 H Cancelled ABG HCO3 18 L Cancelled ABG O2 Saturation 100 H Cancelled ABG Base Excess -8 L Cancelled VBG pH 7.19 L VBG pCO2 48 VBG pO2 37 VBG Base Excess -10 L 03/26/25 03/27/25 03/27/25 18:43 00:17 03:42 ABG pH 7.16 L* D 7.24 L Cancelled ABG pCO2 58 H D 44 D Cancelled ABG pO2 68 L D 80 L Cancelled ABG HCO3 21 19 L Cancelled ABG O2 Saturation 90 L 96 Cancelled ABG Base Excess -9 L -8 L Cancelled VBG pH VBG pCO2 VBG pO2 VBG Base Excess 03/27/25 03/27/25 03/27/25 04:04 07:55 18:48 ABG pH 7.26 L 7.30 L ABG pCO2 43 37 ABG pO2 83 174 H D ABG HCO3 19 L 18 L ABG O2 Saturation 97 101 H ABG Base Excess -7 L -8 L VBG pH 7.21 L 7.31 L VBG pCO2 49 48 VBG pO2 54 52 VBG Base Excess -8 L -2 03/27/25 03/28/25 03/28/25 19:07 04:06 13:37 ABG pH 7.36 7.38 7.41 ABG pCO2 41 45 44 ABG pO2 79 L D 73 L 105 D ABG HCO3 23 27 H 27 H ABG O2 Saturation 97 96 99 H ABG Base Excess -2 1 2 VBG pH VBG pCO2 VBG pO2 VBG Base Excess 03/29/25 03/30/25 03/31/25 04:45 04:50 04:40 ABG pH 7.38 7.42 7.39 ABG pCO2 45 40 41 ABG pO2 72 L D 66 L 63 L ABG HCO3 27 H 26 25 ABG O2 Saturation 98 93 92 ABG Base Excess 1 2 0 VBG pH VBG pCO2 VBG pO2 VBG Base Excess 03/31/25 04/13/25 17:30 13:33 ABG pH 7.39 ABG pCO2 36 ABG pO2 80 L ABG HCO3 21 ABG O2 Saturation 96 ABG Base Excess -3 VBG pH 7.49 VBG pCO2 32 L VBG pO2 68 H VBG Base Excess 1 Assessment and Plan Additional Assessment & Plan Additional Plan: # Acute drop in hemoglobin hematocrit to 5.1 and 18.5 without any evidence of evelina GI bleeding although patient is FOBT positive which is not significant enough to explain this drop in hemoglobin hematocrit Other than the GI bleed which I believe is not the sole reason for drop in hemoglobin hematocrit as she is only Hemoccult positive without any evidence of evelina GI bleeding Suggestions Conservative management with blood transfusion Hold off doing any invasive GI workup at the moment unless and until patient has a evelina GI bleed Will follow the patient closely Thank you very much for the opportunity to participate in the care of this patient Other medical problems include Subarachnoid hemorrhage Multiple embolic strokes in occipital and parietal lobes Sepsis Metabolic/hepatic encephalopathy Hypoxic respiratory failure Gross electrolyte abnormalities Thank you very much for the opportunity to participate in care of this patient
--- NOTE | 2025-04-13 22:49 | ESPR_ITS ---
Documentation for date of: 04/13/25 Subjective Subjective Interval history: Patient was seen in ICU today at the bedside, no complaints at this time, Reviewed the events earlier in the day, with the second CT this afternoon showed bleed now int he right frontal and left parietal area. Exam - Neurology Vital Signs Temp Pulse Resp BP Pulse Ox O2 Del Method O2 Flow Rate 97.8 F 86 24 H 120/69 98 Room Air 3 04/13/25 22:47 04/13/25 22:47 04/13/25 22:47 04/13/25 22:47 04/13/25 22:47 04/13/25 12:00 04/13/25 22:47 FiO2 40 04/13/25 12:00 Narrative Exam GENERAL APPEARANCE: Well hydrated, well-nourished in no acute distress. HEENT: Normocephalic, atraumatic, extraocular movements intact. Pupils: Equal reacting to light and accommodation NECK: Supple, no JVD or bruits. CARDIOVASULAR: Heart: S1, S2 heard, regular without S3-S4 or murmur no rubs or gallops. LUNGS/CHEST: Clear to auscultation bilaterally. No rails, rhonchi, or wheezing. Normal inspection. ABDOMEN: Soft, nontender, with normal bowel sounds. No pulsatile masses. No rebound, rigidity, or guarding. Normal inspection and palpation. EXTREMITIES: Normal inspection and palpation. No edema, clubbing or cyanosis. SKIN: Warm and dry without rashes. Normal inspection. MUSCULOSKELETAL: No cervical, thoracic, lumbar or midline bony tenderness. Normal inspection. NEURO: Lethargic, but arousable, answers questions very well, no focal neurological deficit noted. No signs of meningeal irritation noted. PSYCHIATRIC: Limited Objective Labs 04/13/25 11:47 04/13/25 13:33 Labs: Laboratory Results - last 24 hr 04/13/25 04/13/25 04/13/25 09:58 11:45 11:47 WBC 12.0 H RBC 1.95 L* Hgb 5.7 L* D 6.4 L* Hct 18.5 L* 20.0 L* MCV 95 MCH 29.2 MCHC 30.8 L RDW Std Deviation 54.4 H Plt Count 382 D Neut % (Auto) 60 Lymph % (Auto) 24 [place] % (Auto) 10 Eos % (Auto) 1 Baso % (Auto) 0 Neut # (Auto) 7.2 Lymph # (Auto) 2.9 [place] # (Auto) 1.2 H Eos # (Auto) 0.1 Baso # (Auto) 0.1 Immature Gran # (Auto) 0.52 H Absolute Nucleated RBC 0.00 Immature Gran % 4 H Nucleated RBC % 0 Smear Path Review Sent to Pathologist PT 14.3 H INR 1.3 APTT > 139.0 H* D VBG pH VBG pCO2 VBG pO2 VBG O2 Sat (Slime) VBG Base Excess Sodium 140 Potassium 4.4 Chloride 103 Carbon Dioxide 24.6 Anion Gap 12 BUN 66 H Creatinine 2.4 H Estim Creat Clear Calc 25.1 L eGFR 23 L BUN/Creatinine Ratio 28 H Glucose 157 H Calculated Osmolality 301 H Lactic Acid Calcium 8.8 Corrected Calcium 9.6 Phosphorus 4.3 Magnesium 1.8 Total Bilirubin 0.4 AST 15 ALT 9 L Alkaline Phosphatase 51 D Total Protein 5.3 L Albumin 3.0 L D Globulin 2.3 Albumin/Globulin Ratio 1.3 Stool Occult Blood Positive A Random Vancomycin 11.9 Blood Type Antibody Screen Crossmatch Blood Bank Wristband ID 04/13/25 04/13/25 13:33 14:09 WBC RBC Hgb Hct MCV MCH MCHC RDW Std Deviation Plt Count Neut % (Auto) Lymph % (Auto) [place] % (Auto) Eos % (Auto) Baso % (Auto) Neut # (Auto) Lymph # (Auto) [place] # (Auto) Eos # (Auto) Baso # (Auto) Immature Gran # (Auto) Absolute Nucleated RBC Immature Gran % Nucleated RBC % Smear Path Review PT INR APTT VBG pH 7.49 VBG pCO2 32 L VBG pO2 68 H VBG O2 Sat (Slime) 96 VBG Base Excess 1 Sodium 140 Potassium 4.2 Chloride 103 Carbon Dioxide 23.6 Anion Gap 13 BUN 69 H Creatinine 2.5 H Estim Creat Clear Calc 24.1 L eGFR 22 L BUN/Creatinine Ratio 28 H Glucose 167 H Calculated Osmolality 303 H Lactic Acid 1.8 Calcium 8.8 Corrected Calcium 9.7 Phosphorus Magnesium Total Bilirubin 0.4 AST 14 ALT 8 L Alkaline Phosphatase 49 Total Protein 5.1 L Albumin 2.9 L Globulin 2.2 L Albumin/Globulin Ratio 1.3 Stool Occult Blood Random Vancomycin Blood Type AB Positive Antibody Screen NEGATIVE Crossmatch See Detail Blood Bank Wristband ID Yes ABG Interpretation ABG results: 03/26/25 03/26/25 03/26/25 11:18 11:44 16:23 ABG pH 7.27 L Cancelled ABG pCO2 40 Cancelled ABG pO2 146 H Cancelled ABG HCO3 18 L Cancelled ABG O2 Saturation 100 H Cancelled ABG Base Excess -8 L Cancelled VBG pH 7.19 L VBG pCO2 48 VBG pO2 37 VBG Base Excess -10 L 03/26/25 03/27/25 03/27/25 18:43 00:17 03:42 ABG pH 7.16 L* D 7.24 L Cancelled ABG pCO2 58 H D 44 D Cancelled ABG pO2 68 L D 80 L Cancelled ABG HCO3 21 19 L Cancelled ABG O2 Saturation 90 L 96 Cancelled ABG Base Excess -9 L -8 L Cancelled VBG pH VBG pCO2 VBG pO2 VBG Base Excess 03/27/25 03/27/25 03/27/25 04:04 07:55 18:48 ABG pH 7.26 L 7.30 L ABG pCO2 43 37 ABG pO2 83 174 H D ABG HCO3 19 L 18 L ABG O2 Saturation 97 101 H ABG Base Excess -7 L -8 L VBG pH 7.21 L 7.31 L VBG pCO2 49 48 VBG pO2 54 52 VBG Base Excess -8 L -2 03/27/25 03/28/25 03/28/25 19:07 04:06 13:37 ABG pH 7.36 7.38 7.41 ABG pCO2 41 45 44 ABG pO2 79 L D 73 L 105 D ABG HCO3 23 27 H 27 H ABG O2 Saturation 97 96 99 H ABG Base Excess -2 1 2 VBG pH VBG pCO2 VBG pO2 VBG Base Excess 03/29/25 03/30/25 03/31/25 04:45 04:50 04:40 ABG pH 7.38 7.42 7.39 ABG pCO2 45 40 41 ABG pO2 72 L D 66 L 63 L ABG HCO3 27 H 26 25 ABG O2 Saturation 98 93 92 ABG Base Excess 1 2 0 VBG pH VBG pCO2 VBG pO2 VBG Base Excess 03/31/25 04/13/25 17:30 13:33 ABG pH 7.39 ABG pCO2 36 ABG pO2 80 L ABG HCO3 21 ABG O2 Saturation 96 ABG Base Excess -3 VBG pH 7.49 VBG pCO2 32 L VBG pO2 68 H VBG Base Excess 1 Assessment & Plan Assessment and plan (1) Ischemic cerebrovascular accident (CVA): Status: Acute (2) Uncontrolled diabetes mellitus: Status: Chronic (3) Pneumonia: Status: Acute Additional Assessment & Plan Additional Plan: (1) Ischemic cerebrovascular accident (CVA): Status: Acute Assessment and plan: With the recent CT showing intracerebral hemorrhage Continue with statin Hold anticoagulation and ASA for now. (2) Uncontrolled diabetes mellitus: Status: Chronic Assessment and plan: Continue to check fingerstick glucose and follow sliding scale insulin per protocol (3) Pulmonary embolism: Status: Chronic Assessment and plan: She got the IVC filter placement Anticoagulation is difficult to decide from concurrent intracerebral hemorrhage on the repeat CT head
[2025-04-14] VITALS (39 sets, daily range): BP systolic 85–146; BP diastolic 50–123; PULSE 66–104; RESP 16–94; TEMP 36.2–36.6; O2SAT 90–96; BMI 35.1
[2025-04-14] MEDS: OLANZapine INJ 5 MG, Sterile Water 2.1 ML IM (00:26)
[2025-04-14 00:49] LABS: Hematocrit 24.0 % (36.0-46.0)
[2025-04-14 00:50] LABS: Hemoglobin 8.0 g/dL (12.0-16.0)
[2025-04-14 05:35] LABS: Basophils # (Auto) 0.0 Thou/mm3 (0.0-0.2); Basophils % (Auto) 0 % (0-2.5); Eosinophils # (Auto) 0.1 Thou/mm3 (0.0-0.5); Eosinophils % (Auto) 1 % (0-10); Hematocrit 23.6 % (36.0-46.0); Immature Granulocytes Auto 0.58 Thou/mm3 (0.00-0.00); Lymphocytes # (Auto) 2.5 Thou/mm3 (1.0-4.8); Lymphocytes % (Auto) 18 % (10-50); Mean Corpuscular HGB Conc 33.1 g/dl (31.0-37.0); Mean Corpuscular Hemoglobin 28.9 pg (25.0-35.0); Mean Corpuscular Volume 87 fL (80-100); Monocytes # (Auto) 1.0 Thou/mm3 (0.0-0.8); Monocytes % (Auto) 7 % (0-12); Neutrophils # (Auto) 9.6 Thou/mm3 (1.8-7.7); Neutrophils % (Auto) 70 % (37-80); Nucleated Red Blood Cell # 0.00 Thou/mm3 (0.00-0.00); Nucleated Red Blood Cell % 0 /100 WBC (0); Platelet Count 357 Thou/mm3 (140-440); RDW Standard Deviation 50.9 fL (36.4-46.3); Red Blood Count 2.70 Miln/mm3 (4.00-5.20); White Blood Count 13.7 Thou/mm3 (3.6-11.0)
[2025-04-14 05:51] LABS: INR 1.2 (0.9-1.3); Partial Thromboplastin Time 23.8 Seconds (22.0-36.0); Prothrombin Time 13.0 Seconds (9.0-12.2)
[2025-04-14 05:59] LABS: Hemoglobin 7.8 g/dL (12.0-16.0)
[2025-04-14 06:25] LABS: Alanine Aminotransferase 8 U/L (10-49); Albumin, Serum 3.1 gm/dL (3.5-5.0); Albumin/Globulin Ratio 1.2 (1.2-2.2); Alkaline Phosphatase 50 U/L (46-116); Anion Gap 14 (7-16); Aspartate Amino Transferase 16 U/L (0-34); BUN/Creatinine Ratio 33 Ratio (12-20); Bilirubin,Total 0.6 mg/dL (0.3-1.2); Blood Urea Nitrogen 77 mg/dL (9-23); Calcium 9.0 mg/dL (8.3-10.6); Calcium (Corrected) 9.7 mg/dL (8.5-10.1); Carbon Dioxide 24.3 mMol/L (20.0-31.0); Chloride 102 mMol/L (98-107); Creatinine (Component) 2.3 mg/dL (0.6-1.3); Estimated Creatinine Clearance 26.2 mL/min (>60); Globulin 2.5 gm/dL (2.3-3.5); Glucose 185 mg/dL (74-106); Magnesium 1.4 mg/dL (1.6-2.6); Osmolality,Calculated 307 (275-295); Phosphorous 3.6 mg/dL (2.4-5.1); Potassium 4.0 mMol/L (3.4-5.1); Sodium 140 mMol/L (136-145); Total Protein 5.6 gm/dL (5.7-8.2); eGFR 24 See Note
[2025-04-14] MEDS: GABAPENTIN 100 MG CAPSULE PO ×3 (06:45→21:24)
[2025-04-14 06:55] LABS: ANCA Screen NEGATIVE (NEGATIVE); CCP Antibody (IgG)* <16 Units; Complement Component C3* 142 mg/dL (83-193); Complement Component C4c* 26 mg/dL (15-57); HCV RNA, PCR Log IU (Src Pt) <1.18 NOT DETECTED Log IU/mL; Myeloperoxidase Ab <1.0 AI (<1.0); Proteinase-3 Ab <1.0 AI (<1.0)
--- NOTE | 2025-04-14 07:53 | ESCONSULT_ITS ---
HPI Data of Consult Requesting Physician: Hayley Dubois MD Primary Care Provider: Physician No Primary/Family Consult Narrative Reason for consult: Patient with CVA with suspected malignancy lung abdomen History of present illness: Patient a 59-year-old lady with multiple comorbidities including diabetes mellitus hypertension asthma methamphetamine use disorder admitted with change in mental status on 03/26/2025 along with chronic right leg wound.. CT of head right frontal lobe infarct. Patient had a significant decline during hospital stay with hemorrhagic conversion of her stroke with significant drop in hemoglobin and was upgraded to the ICU. Was intubated for period of time. CT yesterday 04/13/2025 there was more prominent hemorrhage of the posterior left parietal infarct. Venous Doppler was also noted to reveal exclusive nonocclusive DVT left lower extremity. CT showed multiple right lower lobe pulmonary artery and left upper lobe pulmonary artery emboli. IVC filter was placed 03/31/2025. Despite a significant drop in hemoglobin to 5.1 Dr. Zamora of GI despite FOBT being positive did not feel that any invasive GI workup is needed until patient has evelina GI bleeding. Noted also have KINJAL on CKD and receiving hemodialysis during admission. Chest CT on 04/03 32 mm right hilar 20 mm mass right lower lobe and 24 mm left adrenal gland mass. Patient is referred for oncological consultation. cc:: cc: Hayley Dubois MD Past Medical History Past Medical History Comments PMH COMMENT: Diabetes mellitus 2 hypertension asthma methamphetamine abuse e Meds Home Medications and Allergies Home Medications ?Medication ?Instructions ?Recorded ?Confirmed ?Type metformin 500 mg tablet 500 mg PO DAILY 04/04/25 History Allergies Allergy/AdvReac Type Severity Reaction Status Date / Time No Known Allergies Allergy Verified 03/26/25 11:03 Exam Vital Signs Temp Pulse Resp BP Pulse Ox O2 Del Method O2 Flow Rate 97.8 F 86 17 139/72 H 94 L Room Air 3 04/14/25 00:00 04/14/25 06:42 04/14/25 04:00 04/14/25 06:42 04/14/25 06:00 04/13/25 12:00 04/13/25 22:47 FiO2 40 04/13/25 12:00 Narrative Exam Patient extubated appearing comfortable but not speaking coherently. Results Labs 04/14/25 04:45 04/14/25 04:45 Labs: Short CBC 04/13/25 04/13/25 04/14/25 Range/Units 09:58 11:47 00:32 WBC 12.0 H (3.6-11.0) Thou/mm3 Hgb 5.7 L* D 6.4 L* 8.0 L D (12.0-16.0) g/dL Hct 18.5 L* 20.0 L* 24.0 L (36.0-46.0) % Plt Count 382 D (140-440) Thou/mm3 04/14/25 Range/Units 04:45 WBC 13.7 H (3.6-11.0) Thou/mm3 Hgb 7.8 L (12.0-16.0) g/dL Hct 23.6 L (36.0-46.0) % Plt Count 357 (140-440) Thou/mm3 [facility] 04/13/25 04/13/25 04/14/25 09:58 13:33 04:45 Sodium 140 140 140 Potassium 4.4 4.2 4.0 Chloride 103 103 102 Carbon Dioxide 24.6 23.6 24.3 BUN 66 H 69 H 77 H Creatinine 2.4 H 2.5 H 2.3 H Glucose 157 H 167 H 185 H Calcium 8.8 8.8 9.0 Liver Function 04/13/25 04/13/25 04/14/25 Range/Units 09:58 13:33 04:45 Total Bilirubin 0.4 0.4 0.6 (0.3-1.2) mg/dL AST 15 14 16 (0-34) U/L ALT 9 L 8 L 8 L (10-49) U/L Alkaline Phosphatase 51 D 49 50 (46-116) U/L Albumin 3.0 L D 2.9 L 3.1 L (3.5-5.0) gm/dL ABG Interpretation ABG results: 03/26/25 03/26/25 03/26/25 11:18 11:44 16:23 ABG pH 7.27 L Cancelled ABG pCO2 40 Cancelled ABG pO2 146 H Cancelled ABG HCO3 18 L Cancelled ABG O2 Saturation 100 H Cancelled ABG Base Excess -8 L Cancelled VBG pH 7.19 L VBG pCO2 48 VBG pO2 37 VBG Base Excess -10 L 03/26/25 03/27/25 03/27/25 18:43 00:17 03:42 ABG pH 7.16 L* D 7.24 L Cancelled ABG pCO2 58 H D 44 D Cancelled ABG pO2 68 L D 80 L Cancelled ABG HCO3 21 19 L Cancelled ABG O2 Saturation 90 L 96 Cancelled ABG Base Excess -9 L -8 L Cancelled VBG pH VBG pCO2 VBG pO2 VBG Base Excess 03/27/25 03/27/25 03/27/25 04:04 07:55 18:48 ABG pH 7.26 L 7.30 L ABG pCO2 43 37 ABG pO2 83 174 H D ABG HCO3 19 L 18 L ABG O2 Saturation 97 101 H ABG Base Excess -7 L -8 L VBG pH 7.21 L 7.31 L VBG pCO2 49 48 VBG pO2 54 52 VBG Base Excess -8 L -2 03/27/25 03/28/25 03/28/25 19:07 04:06 13:37 ABG pH 7.36 7.38 7.41 ABG pCO2 41 45 44 ABG pO2 79 L D 73 L 105 D ABG HCO3 23 27 H 27 H ABG O2 Saturation 97 96 99 H ABG Base Excess -2 1 2 VBG pH VBG pCO2 VBG pO2 VBG Base Excess 03/29/25 03/30/25 03/31/25 04:45 04:50 04:40 ABG pH 7.38 7.42 7.39 ABG pCO2 45 40 41 ABG pO2 72 L D 66 L 63 L ABG HCO3 27 H 26 25 ABG O2 Saturation 98 93 92 ABG Base Excess 1 2 0 VBG pH VBG pCO2 VBG pO2 VBG Base Excess 03/31/25 04/13/25 17:30 13:33 ABG pH 7.39 ABG pCO2 36 ABG pO2 80 L ABG HCO3 21 ABG O2 Saturation 96 ABG Base Excess -3 VBG pH 7.49 VBG pCO2 32 L VBG pO2 68 H VBG Base Excess 1 Assessment and Plan Additional Assessment & Plan Additional Plan: A#1. CVA hemorrhagic type right frontal and left parietal region, multiple comorbidities, now extubated remains in ICU scheduled for hemodialysis. A#2. Several lesions noted in chest and abdomen which suggest possible malignancy. This could be worked up once patient out of hospital and more stable. A#3. Noted patient to have normal AFP and CEA on prior blood draws. Recommend additional tumor markers CA 19?9 CA 15-3 and CA125.
[2025-04-14 08:31] LABS: CA 15-3 7.6 U/mL (<32.4)
[2025-04-14 08:47] LABS: Hematocrit 23.7 % (36.0-46.0); Hemoglobin 7.9 g/dL (12.0-16.0)
[2025-04-14] MEDS: EPOETIN ALFA-EPBX INJ 10,000 UNIT/ML VIAL (NON-ESRD) 10000 UNIT SC (09:34)
--- NOTE | 2025-04-14 09:36 | XR_ITS ---
Examination: CT brain head without contrast. 2-D sagittal coronal reconstructions Date and time of exam:April 14, 2025 1416 hours, comparison 04/13/2025 INDICATIONS: Acute infarcts with areas of hemorrhage density on prior CT brain scans CTDI: vol (mGy):48.3 DLP: (mGycm):975 Technique: Multiple CT axial sections of the brain have been obtained, 5 mm slice thickness. Contrast has not been administered. 2-D sagittal, coronal reconstructions have been obtained Low dose protocols were performed. One or more of the following dose reduction techniques were used; automated exposure control, adjustment of the mA and/or KV according to patient size, use of iterative reconstruction technique. Findings: Enlarging acute infarct in the left frontal parietal region, axial image 14, compared to the prior study Hemorrhage is more prominent in the infarct in the posterior left parietal lobe, axial image 18 compared with the prior study Stable hemorrhage in the right frontal lobe infarct axial image 20 No midline shift Cranial vault intact IMPRESSION: Enlarging acute infarct in the left frontal parietal region Hemorrhages more prominent in the infarct in the posterior left parietal lobe Stable hemorrhage in the acute right frontal lobe infarct
[2025-04-14] MEDS: SEVELAMER CARBONATE 800 MG TABLET PO ×3 (09:39→17:33)
[2025-04-14] MEDS: ZINC SULFATE 220 MG CAPSULE PO (09:39)
[2025-04-14] MEDS: VIT B12/Vit C/FA (Nephrovite) TABLET 1 TAB PO (09:39)
[2025-04-14] MEDS: ASCORBIC ACID 250 MG TABLET PO ×2 (09:39→21:24)
--- NOTE | 2025-04-14 09:45 | PC.SS ---
update: Patient currently getting Dialysis, on IV Fluids. Vitals are stable. Patient will be down graded to Telemetry. Once patient is medically cleared, pt will discharge home.
[2025-04-14] MEDS: Magnesium Sulfate 4 GM Ivpb 4 GM/50 ML BAG IV (09:52)
[2025-04-14] MEDS: NICOTINE PATCH 21 MG/24 HR PATCH.TD24 TOP (09:52)
--- NOTE | 2025-04-14 09:56 | ESPR_ITS ---
Documentation for date of: 04/14/25 Subjective Subjective Interval history: History of present illness: (patient was intubated during this lead technical writer's visit so the following narrative was constructed primarily via chart checking) Vashti Ross is a 59-year-old F with a PMH of diabetes, hypertension, asthma, substance use disorder (including opiates, probable methamphetamine, and marijuana) on methadone previously, and a chronic right leg wound brought in by ambulance from her home for altered mental status. Per ED rendition of EMS report, patient was noted to be altered with a respiratory rate of 4 en route to [facility]. A total of 8 mg of Narcan was administered at this time which initially improved mentation. Upon arrival, patient was noted to be somnolent and given an additional 0.4 mg of IV Narcan which made her more active but also more combative. She was also noted to be hypoxic and in respiratory distress upon arrival which led her to be put on BiPAP. During her agitated episode, patient endorsed that she hurt all over and loudly yelled that I gotta get out of here . She was eventually given 2 mg of IV Versed and put on restraints due to her continued agitation. Later, she was taken for an MRI which required removal of her BiPAP but upon removal a subsequent drop in O2 saturation to the low 90s was noted. It was deemed that her airway was not secure and the decision was made to intubate the patient. After the MRI was performed, patient was eventually admitted to the ICU. From family collateral, it was learned that patient's last known well time was 22:30 on 03/26. Patient had been found on the floor by her at 05:00 on 03/27 whereupon he tried to rouse her from her stupor, failed, called patient's sister to notify her about patient's condition, and finally left her to go to work. Patient's sister arrived around 09:00 and found patient still lying on the bathroom whereupon this lead technical writer assumes she called for an ambulance to bring the patient to the ED. In the ED, vitals showed: BP 107/78 HR 94 RR 35 Temp 101.3 SpO2 98% on 15 L BiPAP ED Course: CBC showed high WBC 13.1 w/ neutrophilic predominance but was otherwise WNL. Coagulation panel showed high PT 13.3. ABG showed acidic pH 7.27, normal pCO2 40, high pO2 146, low HCO3 18. CMP showed low carbon dioxide 18.1, high anion gap 19, high creatinine 2.8, low eGFR 19, very high blood glucose 550, very high lactic acid 4.7, high bilirubin 1.6, high AST 146, high ALT 61, high total creatine kinase 9752, very high troponin I 0.427, high BNP 297, and high procalcitonin 43.23. UA showed 2+ protein, 3+ glucose, 1+ ketones, 3+ blood, high RBC 10, high WBC 112, 3+ calcium oxalate crystals, 4+ bacteria, normal random sodium 34.2, normal random potassium 26, and low random chloride 23.2. UDS was (+) for amphetamines/methamphetamines and marijuana. Serological studies were reactive for hepatitis C antibody. Imaging: Head CT showed findings most consistent with acute right frontal lobe infarcts. Brain MRI showed multiple embolic-type foci of restricted diffusion in the b ilateral occipital lobes, bilateral frontal lobes, and bilateral parietal lobes most consistent with acute infarcts. CXR showed bibasilar pneumonia and findings suspicious for mild associated heart failure. Renal US showed small kidneys with right renal cortical thinning as well as mild right and moderate left renal parenchymal scar formation. Carotid doppler study showed 20-40% stenosis of the right internal carotid artery and 0-10% stenosis of the left internal carotid artery. EKG was unremarkable. In the ED, patient was given Duoneb Precedex, doxycycline, etomidate, Lasix, regular insulin, ketamine, Versed, naloxone, 1 L LR bolus, Zemuron, and 1 L NS bolus. Patient was intubated due to low GCS and was admitted to the ICU. Nephrology was consulted due to patient's need for urgent hemodialysis. Neurology is also following. Interval History 04/14/2025: Labs reviewed and patient examined at the bedside. Patient reports mild headache and generalized bodyache. No other complaints at this time. P lanned for Hemodialysis today. BP: 104/62 Cr: Improving to 2.3 from 2.5 BUN: 77 Exam Vital Signs Temp Pulse Resp BP Pulse Ox O2 Del Method O2 Flow Rate 97.8 F 87 21 H 100/65 91 L Room Air 3 04/14/25 08:50 04/14/25 09:45 04/14/25 08:50 04/14/25 09:45 04/14/25 08:50 04/13/25 12:00 04/13/25 22:47 FiO2 40 04/13/25 12:00 Narrative Exam General: No acute distress, well nourished, Generalized bodyache. HENT: Normocephalic, atraumatic, hearing intact to conversation at normal volume, moist oral mucosa Neck: Supple, non-tender, no JVD, no lymphadenopathy Lungs: Non-labored respirations, symmetric chest rise, Clear to auscultate bilaterally Heart: Peripheral pulses intact bilaterally, Regular Rate and Rhythm Abdomen: Soft, non-tender, non-distended Musculoskeletal: Noted surgical scar on left knee, Chronic wound of 5 x 6 cm in the right lower extremity, Tissue pressure injuries on the upper lateral right and left thigh and Infected area in the right toe. Demarcated ischemia of left foot of 1st and 5th digit. Skin: Skin is warm, dry, no rashes or lesions. Psychiatric: Cooperative, appropriate mood and affect Neuro: Alert and Oriented X2. Strength 5/5 throughout. Sensations intact to light touch. Unable to abduct right eye. Objective Labs 04/14/25 08:27 04/14/25 04:45 Labs: Laboratory Results - last 24 hr 04/02/25 04/13/25 04/13/25 11:00 09:58 11:45 WBC 12.0 H RBC 1.95 L* Hgb 5.7 L* D Hct 18.5 L* MCV 95 MCH 29.2 MCHC 30.8 L RDW Std Deviation 54.4 H Plt Count 382 D Neut % (Auto) 60 Lymph % (Auto) 24 [place] % (Auto) 10 Eos % (Auto) 1 Baso % (Auto) 0 Neut # (Auto) 7.2 Lymph # (Auto) 2.9 [place] # (Auto) 1.2 H Eos # (Auto) 0.1 Baso # (Auto) 0.1 Immature Gran # (Auto) 0.52 H Absolute Nucleated RBC 0.00 Immature Gran % 4 H Nucleated RBC % 0 Smear Path Review Sent to Pathologist PT 14.3 H INR 1.3 APTT > 139.0 H* D VBG pH VBG pCO2 VBG pO2 VBG O2 Sat (Slime) VBG Base Excess Sodium 140 Potassium 4.4 Chloride 103 Carbon Dioxide 24.6 Anion Gap 12 BUN 66 H Creatinine 2.4 H Estim Creat Clear Calc 25.1 L eGFR 23 L BUN/Creatinine Ratio 28 H Glucose 157 H Calculated Osmolality 301 H Lactic Acid Calcium 8.8 Corrected Calcium 9.6 Phosphorus 4.3 Magnesium 1.8 Total Bilirubin 0.4 AST 15 ALT 9 L Alkaline Phosphatase 51 D Total Protein 5.3 L Albumin 3.0 L D Globulin 2.3 Albumin/Globulin Ratio 1.3 CA 15-3 Antigen Stool Occult Blood Positive A Random Vancomycin 11.9 Cycl Citrul Peptide IgG <16 ANCA Screen NEGATIVE c-ANCA Titer TNP Anti-Proteinase 3 <1.0 p-ANCA Titer TNP Atypical p-ANCA Titer TNP Anti-Myeloperoxidase <1.0 Complement C3 142 Complement C4c 26 HCV RNA Quant (PCR) <15 NOT DETECTED HCV RNA (PCR) IU log10 <1.18 NOT DETECTED Blood Type Antibody Screen Crossmatch Blood Bank Wristband ID 04/13/25 04/13/25 04/13/25 11:47 13:33 14:09 WBC RBC Hgb 6.4 L* Hct 20.0 L* MCV MCH MCHC RDW Std Deviation Plt Count Neut % (Auto) Lymph % (Auto) [place] % (Auto) Eos % (Auto) Baso % (Auto) Neut # (Auto) Lymph # (Auto) [place] # (Auto) Eos # (Auto) Baso # (Auto) Immature Gran # (Auto) Absolute Nucleated RBC Immature Gran % Nucleated RBC % Smear Path Review PT INR APTT VBG pH 7.49 VBG pCO2 32 L VBG pO2 68 H VBG O2 Sat (Slime) 96 VBG Base Excess 1 Sodium 140 Potassium 4.2 Chloride 103 Carbon Dioxide 23.6 Anion Gap 13 BUN 69 H Creatinine 2.5 H Estim Creat Clear Calc 24.1 L eGFR 22 L BUN/Creatinine Ratio 28 H Glucose 167 H Calculated Osmolality 303 H Lactic Acid 1.8 Calcium 8.8 Corrected Calcium 9.7 Phosphorus Magnesium Total Bilirubin 0.4 AST 14 ALT 8 L Alkaline Phosphatase 49 Total Protein 5.1 L Albumin 2.9 L Globulin 2.2 L Albumin/Globulin Ratio 1.3 CA 15-3 Antigen Stool Occult Blood Random Vancomycin Cycl Citrul Peptide IgG ANCA Screen c-ANCA Titer Anti-Proteinase 3 p-ANCA Titer Atypical p-ANCA Titer Anti-Myeloperoxidase Complement C3 Complement C4c HCV RNA Quant (PCR) HCV RNA (PCR) IU log10 Blood Type AB Positive Antibody Screen NEGATIVE Crossmatch See Detail Blood Bank Wristband ID Yes 04/14/25 04/14/25 04/14/25 00:32 04:45 08:27 WBC 13.7 H RBC 2.70 L Hgb 8.0 L D 7.8 L 7.9 L Hct 24.0 L 23.6 L 23.7 L MCV 87 MCH 28.9 MCHC 33.1 RDW Std Deviation 50.9 H Plt Count 357 Neut % (Auto) 70 Lymph % (Auto) 18 [place] % (Auto) 7 Eos % (Auto) 1 Baso % (Auto) 0 Neut # (Auto) 9.6 H Lymph # (Auto) 2.5 [place] # (Auto) 1.0 H Eos # (Auto) 0.1 Baso # (Auto) 0.0 Immature Gran # (Auto) 0.58 H Absolute Nucleated RBC 0.00 Immature Gran % 4 H Nucleated RBC % 0 Smear Path Review PT 13.0 H INR 1.2 APTT 23.8 D VBG pH VBG pCO2 VBG pO2 VBG O2 Sat (Slime) VBG Base Excess Sodium 140 Potassium 4.0 Chloride 102 Carbon Dioxide 24.3 Anion Gap 14 BUN 77 H Creatinine 2.3 H Estim Creat Clear Calc 26.2 L eGFR 24 L BUN/Creatinine Ratio 33 H Glucose 185 H Calculated Osmolality 307 H Lactic Acid Calcium 9.0 Corrected Calcium 9.7 Phosphorus 3.6 Magnesium 1.4 L Total Bilirubin 0.6 AST 16 ALT 8 L Alkaline Phosphatase 50 Total Protein 5.6 L Albumin 3.1 L Globulin 2.5 Albumin/Globulin Ratio 1.2 CA 15-3 Antigen 7.6 Stool Occult Blood Random Vancomycin Cycl Citrul Peptide IgG ANCA Screen c-ANCA Titer Anti-Proteinase 3 p-ANCA Titer Atypical p-ANCA Titer Anti-Myeloperoxidase Complement C3 Complement C4c HCV RNA Quant (PCR) HCV RNA (PCR) IU log10 Blood Type Antibody Screen Crossmatch Blood Bank Wristband ID ABG Interpretation ABG results: 03/26/25 03/26/25 03/26/25 11:18 11:44 16:23 ABG pH 7.27 L Cancelled ABG pCO2 40 Cancelled ABG pO2 146 H Cancelled ABG HCO3 18 L Cancelled ABG O2 Saturation 100 H Cancelled ABG Base Excess -8 L Cancelled VBG pH 7.19 L VBG pCO2 48 VBG pO2 37 VBG Base Excess -10 L 03/26/25 03/27/25 03/27/25 18:43 00:17 03:42 ABG pH 7.16 L* D 7.24 L Cancelled ABG pCO2 58 H D 44 D Cancelled ABG pO2 68 L D 80 L Cancelled ABG HCO3 21 19 L Cancelled ABG O2 Saturation 90 L 96 Cancelled ABG Base Excess -9 L -8 L Cancelled VBG pH VBG pCO2 VBG pO2 VBG Base Excess 03/27/25 03/27/25 03/27/25 04:04 07:55 18:48 ABG pH 7.26 L 7.30 L ABG pCO2 43 37 ABG pO2 83 174 H D ABG HCO3 19 L 18 L ABG O2 Saturation 97 101 H ABG Base Excess -7 L -8 L VBG pH 7.21 L 7.31 L VBG pCO2 49 48 VBG pO2 54 52 VBG Base Excess -8 L -2 03/27/25 03/28/25 03/28/25 19:07 04:06 13:37 ABG pH 7.36 7.38 7.41 ABG pCO2 41 45 44 ABG pO2 79 L D 73 L 105 D ABG HCO3 23 27 H 27 H ABG O2 Saturation 97 96 99 H ABG Base Excess -2 1 2 VBG pH VBG pCO2 VBG pO2 VBG Base Excess 03/29/25 03/30/25 03/31/25 04:45 04:50 04:40 ABG pH 7.38 7.42 7.39 ABG pCO2 45 40 41 ABG pO2 72 L D 66 L 63 L ABG HCO3 27 H 26 25 ABG O2 Saturation 98 93 92 ABG Base Excess 1 2 0 VBG pH VBG pCO2 VBG pO2 VBG Base Excess 03/31/25 04/13/25 17:30 13:33 ABG pH 7.39 ABG pCO2 36 ABG pO2 80 L ABG HCO3 21 ABG O2 Saturation 96 ABG Base Excess -3 VBG pH 7.49 VBG pCO2 32 L VBG pO2 68 H VBG Base Excess 1 Quality Measures Quality Measures VTE prophylaxis Assessment & Plan Assessment Current Active Medications: Generic Name Dose Route Start Last Admin Trade Name Freq PRN Reason Stop Dose Admin Acetaminophen 650 mg 04/01/25 09:12 04/13/25 11:14 Acetaminophen 325 Mg Tablet PO 04/25/25 18:57 650 mg Q4HR PRN Administration Pain Scale 1-3 OR fever >100.4 Albuterol/Ipratropium 3 ml 04/11/25 10:04 Albuterol/Ipratropium (Duoneb) Rt Jenniefr 3 Ml Nebu INH 04/26/25 00:59 Q6HRRT PRN SHORTNESS OF BREATH Amlodipine Besylate 10 mg 04/02/25 09:00 04/13/25 09:02 Amlodipine Besylate 5 Mg Tablet PO 05/02/25 08:59 10 mg QDAY CRIS Administration Ascorbic Acid 250 mg 04/03/25 12:00 04/14/25 09:39 Ascorbic Acid 250 Mg Tablet PO 05/03/25 11:59 250 mg BID CRIS Administration Atorvastatin Calcium 80 mg 03/26/25 21:00 04/13/25 20:33 Atorvastatin Calcium 20 Mg Tablet PO 04/25/25 20:59 80 mg HS CRIS Administration Carvedilol 6.25 mg 04/01/25 17:30 04/13/25 18:04 Carvedilol 3.125 Mg Tablet PO 05/01/25 17:29 6.25 mg BIDWM CRIS Administration Dextrose 25 ml 03/26/25 20:20 Dextrose 50%-Water Inj 50 Ml Syringe IV 04/25/25 20:19 Q15MIN PRN BG 50-70 responsive npo pt Dextrose 50 ml 03/26/25 20:20 Dextrose 50%-Water Inj 50 Ml Syringe IV 04/25/25 20:19 Q15MIN PRN BG <50 OR BG <70 & pt unresponsive Gabapentin 100 mg 04/06/25 22:00 04/14/25 06:45 Gabapentin 100 Mg Capsule PO 05/06/25 21:59 100 mg TID CRIS Administration Glucagon 1 mg 03/26/25 20:20 Glucagon Inj 1 Mg Vial IM Q15MIN PRN BG <70, and no IV access Heparin Sodium (Porcine) 3,000 unit 04/09/25 17:10 Heparin Sod Inj 1000 Unit/Ml Vial 10 Ml INDWELLCAT 04/23/25 17:09 X1 PRN DIALYSIS Hydralazine HCl 25 mg 04/01/25 14:00 04/14/25 06:42 Hydralazine Hcl 25 Mg Tablet PO 05/01/25 13:59 Not Given TID CRIS Heparin Sodium/Dextrose 25,000 unit in 250 mls @ 15.059 mls/hr 04/11/25 16:45 04/13/25 10:57 Heparin In D5w Ivpb IV 04/25/25 16:44 Infused .[id number] [facility] Titration Protocol 18 UNITS/KG/HR Magnesium Sulfate 4 gm in 50 mls @ 12.5 mls/hr 04/14/25 07:34 04/14/25 09:52 Magnesium Sulfate Ivpb IV 04/14/25 11:33 12.5 mls/hr X1 ONE Administration Insulin Degludec 24 unit 04/01/25 21:00 04/13/25 20:45 Insulin Degludec 5 Unit/0.05 Ml (Per 5 Units) SC 05/01/25 20:59 24 unit HS CRIS Administration Insulin Human Lispro 0 unit 04/04/25 21:00 04/14/25 09:26 Insulin Lispro (Admelog) 1 Unit/0.01 Ml Unit SC 05/04/25 20:59 Not Given ACHS [facility] Protocol Labetalol HCl 10 mg 04/01/25 11:16 Labetalol Inj 5 Mg/Ml Vial 20 Ml IVP 05/01/25 11:29 Q4HR PRN if SBP>140 Nicotine 21 mg 04/05/25 10:45 04/14/25 09:52 Nicotine Patch 21 Mg/24 Hr Patch.Td24 TOP 05/05/25 10:44 21 mg QDAY CRIS Administration Quetiapine Fumarate 25 mg 04/08/25 21:00 04/13/25 20:30 Quetiapine Fumarate 25 Mg Tablet PO 05/08/25 20:59 25 mg HS CRIS Administration Sevelamer Carbonate 800 mg 04/05/25 08:00 04/14/25 09:39 Sevelamer Carbonate 800 Mg Tablet PO 05/05/25 07:59 800 mg TIDWM CRIS Administration Vitamin B Complex/Vit C/Folic Acid 1 tab 04/03/25 12:00 04/14/25 09:39 Vit B12/Vit C/Fa (Nephrovite) Tablet PO 05/03/25 11:59 1 tab QDAY CRIS Administration Zinc Sulfate 220 mg 04/03/25 12:00 04/14/25 09:39 Zinc Sulfate 220 Mg Capsule PO 04/17/25 11:59 220 mg QDAY CRIS Administration Plan Vashti Ross is a 59-year-old F with a PMH of diabetes, hypertension, asthma, substance use disorder (including opiates, probable methamphetamine, and marijuana) on methadone previously, and a chronic right leg wound brought in by ambulance from her home for altered mental status. Patient was intubated due to low GCS and was admitted to the ICU. echo with tricuspid vegitations and EF 40- 45%, pt with extensive PE and extensive non occlusive DVT of LLE, SYLVIE revealed atrial septal aneurysm, likely source of embolic strokes in the setting of DVT. per cards, holding off on anticoagulation due to concern for hemorrhagic conversion of infarct. s/p IVC filter, found to have nephrotic range proteinuria, repeat ct head with new infarcts of the L frontoparietal and L posterior parietal lobes.temporary HD catheter placed by dr. elizondo, pt has waxing and waning periods of behavioral changes suspected to be 2/2 frontoarietal infarcts. Patient planned for hemodialysis today. KINJAL on CKD Stage IV -suspect patient with ischemic ATN - Admission creatinine 2.8 (baseline: unknown), eGFR 19 - Nephrology consulted for worsening CKD while inpatient - - HD: 03/28 CRRT, HD 03/29, 03/30, 03/31, 04/03, 04/04, 04/06, 04/09 labs unable to be drawn 2/2 agitation and no IV access, 04/14 - RFT:04/14 Cr Improving to 2.3 from 2.5 Plan: - Temp HD catheter placed: (pt has high risk of potentially pulling out catheter in agitated state. - Planned for Hemodialysis today. Spoke to primary team-needs PermCath and outpatient dialysis prior to discharge. Might need to consider LTAC if family requesting all aggressive measures including outpatient dialysis. - Avoid nephrotoxic agents, avoid excessive fluids and renally dose medications. - Hold any KRISSY/ARB/diuretics as KINJAL causing worsening of CKD Other medical problems: Agitation and combative behavior query 2/2 frontoparietal infarcts pt at risk for pulling out hd tem cath CVA- Subarachnoid hemorrhage and multiple acute infarcts ? 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 Nathalie Stewart (PGY-1)- Internal medicine resident Attending Provider Attestation/Addendum Patient seen and examined with resident physician Dr. Stewart. note reviewed, agree with findings and recommendations. Patient received 2 days of CRRT, 5 conventional dialysis.. 04/14/2025 patient currently seen in medical floor. She went to ICU to get dialysis catheter placement by Dr. Elizondo. Apparently IR declined to do permcatheter due to her mentation. Patient has hypercoagulable // thrombotic disorder. Patient has both arterial infarcts, venous thrombosis cannot give heparin due to subarachnoid hemorrhage. CT brain showed questionable subarachnoid hemorrhage. CT angiography did not show any mesenteric occlusion. postcontrast did receive dialysis. Today she seems to be very restless and is currently seen in ICU. Noted family requesting all aggressive measures. Patient on dialysis. Hemodialysis for 3 hours, 2K, ultrafiltration 2 L, Epogen 6000, no heparin ordered. Plan of care discussed with the dialysis nurse. Please see dialysis flowsheet for further details. Spoke to ICU team.
[2025-04-14] MEDS: HEPARIN SOD INJ 1000 UNIT/ML VIAL 10 ML 3000 UNIT INDWELLCAT (12:03)
--- NOTE | 2025-04-14 12:32 | PC.SS ---
SS follow up note; HÉCTOR contacted Ashanti from [facility] and she informed SS that patient's Insurance approved for patient to get dialysis. Ashanti informed SS to contact her once perm cath is in place. SS will stand by for further needs.
--- NOTE | 2025-04-14 14:09 | PD.RESPRO ---
Documentation for date of: 04/14/25 Subjective Subjective Interval history: Patient examined at bedside today. Currently getting hemodialysis. No headache or chest pain at this time. No other complaints at this time. Exam Vital Signs Temp Pulse Resp BP Pulse Ox O2 Del Method O2 Flow Rate 97.1 F 78 23 H 94/63 96 Room Air 3 04/14/25 12:12 04/14/25 12:12 04/14/25 12:12 04/14/25 12:12 04/14/25 12:12 04/14/25 12:01 04/13/25 22:47 FiO2 40 04/13/25 12:00 Narrative Exam General: No acute distress, well nourished, Generalized bodyache. HENT: Normocephalic, atraumatic, hearing intact to conversation at normal volume, moist oral mucosa Neck: Supple, non-tender, no JVD, no lymphadenopathy Lungs: Non-labored respirations, symmetric chest rise, Clear to auscultate bilaterally Heart: Peripheral pulses intact bilaterally, Regular Rate and Rhythm Abdomen: Soft, non-tender, non-distended Musculoskeletal: Noted surgical scar on left knee, Chronic wound of 5 x 6 cm in the right lower extremity, Tissue pressure injuries on the upper lateral right and left thigh and Infected area in the right toe. Demarcated ischemia of left foot of 1st and 5th digit. Skin: Skin is warm, dry, no rashes or lesions. Psychiatric: Cooperative, appropriate mood and affect Neuro: Alert and Oriented X2. Strength 5/5 throughout. Sensations intact to light touch. Unable to abduct right eye. Objective Labs 04/14/25 22:23 04/14/25 04:45 Labs: Laboratory Results - last 24 hr 04/02/25 04/13/25 04/13/25 11:00 13:33 14:09 WBC RBC Hgb Hct MCV MCH MCHC RDW Std Deviation Plt Count Neut % (Auto) Lymph % (Auto) [place] % (Auto) Eos % (Auto) Baso % (Auto) Neut # (Auto) Lymph # (Auto) [place] # (Auto) Eos # (Auto) Baso # (Auto) Immature Gran # (Auto) Absolute Nucleated RBC Immature Gran % Nucleated RBC % PT INR APTT Sodium 140 Potassium 4.2 Chloride 103 Carbon Dioxide 23.6 Anion Gap 13 BUN 69 H Creatinine 2.5 H Estim Creat Clear Calc 24.1 L eGFR 22 L BUN/Creatinine Ratio 28 H Glucose 167 H Calculated Osmolality 303 H Calcium 8.8 Corrected Calcium 9.7 Phosphorus Magnesium Total Bilirubin 0.4 AST 14 ALT 8 L Alkaline Phosphatase 49 Total Protein 5.1 L Albumin 2.9 L Globulin 2.2 L Albumin/Globulin Ratio 1.3 CA 15-3 Antigen Cycl Citrul Peptide IgG <16 ANCA Screen NEGATIVE c-ANCA Titer TNP Anti-Proteinase 3 <1.0 p-ANCA Titer TNP Atypical p-ANCA Titer TNP Anti-Myeloperoxidase <1.0 Complement C3 142 Complement C4c 26 HCV RNA Quant (PCR) <15 NOT DETECTED HCV RNA (PCR) IU log10 <1.18 NOT DETECTED Blood Type AB Positive Antibody Screen NEGATIVE Crossmatch See Detail Blood Bank Wristband ID Yes 04/14/25 04/14/25 04/14/25 00:32 04:45 08:27 WBC 13.7 H RBC 2.70 L Hgb 8.0 L D 7.8 L 7.9 L Hct 24.0 L 23.6 L 23.7 L MCV 87 MCH 28.9 MCHC 33.1 RDW Std Deviation 50.9 H Plt Count 357 Neut % (Auto) 70 Lymph % (Auto) 18 [place] % (Auto) 7 Eos % (Auto) 1 Baso % (Auto) 0 Neut # (Auto) 9.6 H Lymph # (Auto) 2.5 [place] # (Auto) 1.0 H Eos # (Auto) 0.1 Baso # (Auto) 0.0 Immature Gran # (Auto) 0.58 H Absolute Nucleated RBC 0.00 Immature Gran % 4 H Nucleated RBC % 0 PT 13.0 H INR 1.2 APTT 23.8 D Sodium 140 Potassium 4.0 Chloride 102 Carbon Dioxide 24.3 Anion Gap 14 BUN 77 H Creatinine 2.3 H Estim Creat Clear Calc 26.2 L eGFR 24 L BUN/Creatinine Ratio 33 H Glucose 185 H Calculated Osmolality 307 H Calcium 9.0 Corrected Calcium 9.7 Phosphorus 3.6 Magnesium 1.4 L Total Bilirubin 0.6 AST 16 ALT 8 L Alkaline Phosphatase 50 Total Protein 5.6 L Albumin 3.1 L Globulin 2.5 Albumin/Globulin Ratio 1.2 CA 15-3 Antigen 7.6 Cycl Citrul Peptide IgG ANCA Screen c-ANCA Titer Anti-Proteinase 3 p-ANCA Titer Atypical p-ANCA Titer Anti-Myeloperoxidase Complement C3 Complement C4c HCV RNA Quant (PCR) HCV RNA (PCR) IU log10 Blood Type Antibody Screen Crossmatch Blood Bank Wristband ID ABG Interpretation ABG results: 03/26/25 03/26/25 03/26/25 11:18 11:44 16:23 ABG pH 7.27 L Cancelled ABG pCO2 40 Cancelled ABG pO2 146 H Cancelled ABG HCO3 18 L Cancelled ABG O2 Saturation 100 H Cancelled ABG Base Excess -8 L Cancelled VBG pH 7.19 L VBG pCO2 48 VBG pO2 37 VBG Base Excess -10 L 03/26/25 03/27/25 03/27/25 18:43 00:17 03:42 ABG pH 7.16 L* D 7.24 L Cancelled ABG pCO2 58 H D 44 D Cancelled ABG pO2 68 L D 80 L Cancelled ABG HCO3 21 19 L Cancelled ABG O2 Saturation 90 L 96 Cancelled ABG Base Excess -9 L -8 L Cancelled VBG pH VBG pCO2 VBG pO2 VBG Base Excess 03/27/25 03/27/25 03/27/25 04:04 07:55 18:48 ABG pH 7.26 L 7.30 L ABG pCO2 43 37 ABG pO2 83 174 H D ABG HCO3 19 L 18 L ABG O2 Saturation 97 101 H ABG Base Excess -7 L -8 L VBG pH 7.21 L 7.31 L VBG pCO2 49 48 VBG pO2 54 52 VBG Base Excess -8 L -2 03/27/25 03/28/25 03/28/25 19:07 04:06 13:37 ABG pH 7.36 7.38 7.41 ABG pCO2 41 45 44 ABG pO2 79 L D 73 L 105 D ABG HCO3 23 27 H 27 H ABG O2 Saturation 97 96 99 H ABG Base Excess -2 1 2 VBG pH VBG pCO2 VBG pO2 VBG Base Excess 03/29/25 03/30/25 03/31/25 04:45 04:50 04:40 ABG pH 7.38 7.42 7.39 ABG pCO2 45 40 41 ABG pO2 72 L D 66 L 63 L ABG HCO3 27 H 26 25 ABG O2 Saturation 98 93 92 ABG Base Excess 1 2 0 VBG pH VBG pCO2 VBG pO2 VBG Base Excess 03/31/25 04/13/25 17:30 13:33 ABG pH 7.39 ABG pCO2 36 ABG pO2 80 L ABG HCO3 21 ABG O2 Saturation 96 ABG Base Excess -3 VBG pH 7.49 VBG pCO2 32 L VBG pO2 68 H VBG Base Excess 1 Quality Measures Quality Measures VTE prophylaxis Assessment & Plan Assessment Current Active Medications: Generic Name Dose Route Start Last Admin Trade Name Freq PRN Reason Stop Dose Admin Acetaminophen 650 mg 04/01/25 09:12 04/13/25 11:14 Acetaminophen 325 Mg Tablet PO 04/25/25 18:57 650 mg Q4HR PRN Administration Pain Scale 1-3 OR fever >100.4 Albuterol/Ipratropium 3 ml 04/11/25 10:04 Albuterol/Ipratropium (Duoneb) Rt Jennifer 3 Ml Nebu INH 04/26/25 00:59 Q6HRRT PRN SHORTNESS OF BREATH Amlodipine Besylate 10 mg 04/02/25 09:00 04/14/25 13:07 Amlodipine Besylate 5 Mg Tablet PO 05/02/25 08:59 Not Given QDAY CRIS Ascorbic Acid 250 mg 04/03/25 12:00 04/14/25 09:39 Ascorbic Acid 250 Mg Tablet PO 05/03/25 11:59 250 mg BID CRIS Administration Atorvastatin Calcium 80 mg 03/26/25 21:00 04/13/25 20:33 Atorvastatin Calcium 20 Mg Tablet PO 04/25/25 20:59 80 mg HS CRIS Administration Carvedilol 6.25 mg 04/01/25 17:30 04/14/25 13:07 Carvedilol 3.125 Mg Tablet PO 05/01/25 17:29 Not Given BIDWM CRIS Dextrose 25 ml 03/26/25 20:20 Dextrose 50%-Water Inj 50 Ml Syringe IV 04/25/25 20:19 Q15MIN PRN BG 50-70 responsive npo pt Dextrose 50 ml 03/26/25 20:20 Dextrose 50%-Water Inj 50 Ml Syringe IV 04/25/25 20:19 Q15MIN PRN BG <50 OR BG <70 & pt unresponsive Gabapentin 100 mg 04/06/25 22:00 04/14/25 06:45 Gabapentin 100 Mg Capsule PO 05/06/25 21:59 100 mg TID CRIS Administration Glucagon 1 mg 03/26/25 20:20 Glucagon Inj 1 Mg Vial IM Q15MIN PRN BG <70, and no IV access Heparin Sodium (Porcine) 3,000 unit 04/09/25 17:10 04/14/25 12:03 Heparin Sod Inj 1000 Unit/Ml Vial 10 Ml INDWELLCAT 04/23/25 17:09 3,000 unit X1 PRN Administration DIALYSIS Hydralazine HCl 25 mg 04/01/25 14:00 04/14/25 06:42 Hydralazine Hcl 25 Mg Tablet PO 05/01/25 13:59 Not Given TID CRIS Insulin Degludec 24 unit 04/01/25 21:00 04/13/25 20:45 Insulin Degludec 5 Unit/0.05 Ml (Per 5 Units) SC 05/01/25 20:59 24 unit HS CRIS Administration Insulin Human Lispro 0 unit 04/04/25 21:00 04/14/25 13:07 Insulin Lispro (Admelog) 1 Unit/0.01 Ml Unit SC 05/04/25 20:59 Not Given ACHS [facility] Protocol Labetalol HCl 10 mg 04/01/25 11:16 Labetalol Inj 5 Mg/Ml Vial 20 Ml IVP 05/01/25 11:29 Q4HR PRN if SBP>140 Nicotine 21 mg 04/05/25 10:45 04/14/25 09:52 Nicotine Patch 21 Mg/24 Hr Patch.Td24 TOP 05/05/25 10:44 21 mg QDAY CRIS Administration Quetiapine Fumarate 25 mg 04/08/25 21:00 04/13/25 20:30 Quetiapine Fumarate 25 Mg Tablet PO 05/08/25 20:59 25 mg HS CRIS Administration Sevelamer Carbonate 800 mg 04/05/25 08:00 04/14/25 13:08 Sevelamer Carbonate 800 Mg Tablet PO 05/05/25 07:59 800 mg TIDWM CRIS Administration Vitamin B Complex/Vit C/Folic Acid 1 tab 04/03/25 12:00 04/14/25 09:39 Vit B12/Vit C/Fa (Nephrovite) Tablet PO 05/03/25 11:59 1 tab QDAY CRIS Administration Zinc Sulfate 220 mg 04/03/25 12:00 04/14/25 09:39 Zinc Sulfate 220 Mg Capsule PO 04/17/25 11:59 220 mg QDAY CRIS Administration Plan Assessment 59F with PMH of DM, HTN, asthma, drug use disorder, and a chronic right leg wound was brought to the ED after being found unresponsive (responsive after Narcan administration) at home where she was found to have acute encephalopathy with low GCS requiring intubation and ICU admission for ventilator support, pressor support for likely septic shock, and CRRT. Patient found to have multi embolic disease involving multiple systems including brain and left distal extremity, acute and failure with the cause likely renal emboli. #Acute encephalopathy, multifactorial, related to metabolic derangement, substance use, and embolic CVA (Resolving) #Acute Multiple embolic type foci occipital lobes, bilateral frontal and bilateral parietal lobe #Atrial septal aneurysm #PFO #Subarachnoid hemorrhage #Endocarditis - r/o #Tricuspid valve vegetation - r/o SYLVIE (03/30/25) confirmed no vegetations. Noted to have atrial aneurysm bulging into left atrium, bubble study done showed PFO EEG from 04/02/25 shows diffuse slowing suggestive of a diffuse encephalopathy of vascular origin. MR venogram negative for any thrombus Repeat brain CT (04/11/25) shows Acute infarction in left middle cerebral artery distribution, left frontal, parietal, left occipital lobes. Improvement in subarachnoid hemorrhage, minimal residual in right frontal convexity. Hypercoagulable studies: Positive cryoprecipitate but low < 1%, 1/2 samples positive for lupus anticoagulant. Weakly positive for hexagonal phase confirm test. Positive EFFIE. negative anti double-stranded. Negative antiphopholipid panel, Normal protein C and S activity, normal antithrombin III, Negative Factor V liden, elevated alpha 1,2 globulins, low B1 globulin, negative factor II Repeat head CT shows worsening hemorrhage (04/13/2025) Patient could have hypercoagulable pathology, Cryoglobulin positive Patient to get kidney biopsy Plan: ? Holding anticoagulation for now including aspirin ? Continue with high intensity statin ? Follow-up hypercoagulable panel ? Follow-up head CT ordered today #Septic shock (resolved) #Hospital-Acquired PNA (Improved) # UTI (Improved) #Acute hypoxic respiratory failure (resolving) #Respiratory acidosis (resolved) #KINJAL (Improving) #Acute renal failure likely 2/2 septic shock vs. renal emboli vs. rhabdomyolysis (improved) #Nephrotic range proteinuria #HFrEF, EF 40 to 45% #Substance Use Disorder #NSTEMI type type I (embolic CT) vs. Type 2 (demand ischemia 2/2 shock) #Pulmonary embolism #DVT #Hypertension #Agitation #Abdominal pain (resolved) #Umbilical hernia with incarcerated fat #Gallbladder sludge #Prominent pancreatic head #Right hilum mass #Right lower lobe mass #Left adrenal gland mass #Uterine fundal mass #Focal mucinosis #Transaminitis (resolved) #Hyperbilirubinemia (resolved) #Hepatitis C # High anion gap metabolic acidosis (resolved) #Lactic acidosis (resolved) #Rhabdomyolysis (resolved) #Uncontrolled type 2 diabetes mellitus #Chronic right leg wound #History of asthma Above handled by primary hospitalist team Patient seen and care discussed with my attending physician, Dr. Benito Hamilton, PGY-2 Attending Provider Attestation/Addendum I personally have seen and examined the patient at the bedside and I agreed with resident's findings, assessment and plan of care. 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 to multiple vascular territory mainly right frontal infarct with hgic conversion, not responding to low dose antipsychotics Plan/recommendations Even though the patient is clinically stable, she would benefit from neurosurgical evaluation and close follow-up for possible intervention if needed in case of progression. She is waiting for transfer for such services .
--- NOTE | 2025-04-14 14:32 | ESPR_ITS ---
<Statement entered by Amanda Oliver MD - 04/14/25 18:34> Patient seen and examined at bedside. Patient was downgraded from ICU today. Repeat CT head today shows enlarging acute infarct in the left frontoparietal region and more prominent hemorrhages noted in posterior left parietal lobe. Neurology recommended to consider neurosurgery consult at this time. Will reach out for further neurosurgery recommendations. Will order hemoglobin Q6 and transfuse if hemoglobin is less than 7 and monitor for evelina GI bleed. At this time GI does not recommend any invasive GI procedure. Will stop all patient's anticoagulation at this time. Will continue with olanzapine low-dose nightly for her delirium. I discussed with and supervised the staff internist office based only physician who took care of this patient. I personally saw and examined the patient and discussed the assessment and plan with the entire medicine team, including my attending Dr. Sexton, I agree with most of the assessment and plan as documented below Amanda Oliver M.D. PGY-3 Disclaimer: Despite multiple revisions, due to the dictation software being used, the document bellow may not be free of grammatical errors including phonetic/typographic errors. However, this does not deter from our commitment to providing health care in the patient's best interest in mind. <Statement entered by Amie Boyce MD - 04/14/25 17:49> Note reviewed, I agree with most of its contents and agree with the patient's care as documented by Dr. Rand. Patient downgraded from ICU today. Repeat CT head from this morning shows worsening SAH. Holding all blood thinners at this time. Neurologist agrees for transfer of patient. She received session of HD in ICU. No biopsies of masses were obtained by IR--stated that they are too small. CA 15-3 antigen came back within normal limits at 7.6. CA 19?9 antigen is still pending. Hb remains low (~7.8). She is not a candidate for EGD at this time. Patient has received a total of 2 units pRBC now. We will continue to closely monitor and transfuse when <7.0. The patient's management plan was discussed with my attending physician Dr. Sexton. Amie Boyce, PGY-2 Documentation for date of: 04/14/25 Subjective Subjective Interval history: 04/14/25: Yesterday morning patient was arousable but lethargic as she received olanzapine and seroquel overnight due to agitation. Night team also reported that she was refusing blood draws. Draw was eventually taken from periphery to monitor coag panel while on heparin drip. There was an acute drop in hemoglobin from 9.5 to 5.7. Repeat Hb was 6.4. There was a RR in the afternoon due to hypotension with BP 94/51, responding to sternal rub. She was given 1L bolus NS and [address] body [address] were perfomed which revealed more prominent hemorrhage in the posterior left parietal infarct. Heparin drip was discontinued. ICU was consulted and upgraded for closer monitoring. Upon administration of PRBC and discontinuation of heparin drip and aspirin, patient's hemodynamic state improved without any need for pressors. This morning (04/14/25) patient received hemodialysis and was transferred to tele floor for continuation of medical care given stable condition. Currently pending repeat brain CT to assess for any hemorrhagic exapasion and blood cancer markers to further investigate potential malignancies. From nephrology standpoint, patient will need permanent dialsysis catheter placement in order for her receive dialysis outpatient following discharge. Exam Vital Signs Temp Pulse Resp BP Pulse Ox O2 Del Method O2 Flow Rate 97.1 F 78 23 H 94/63 96 Room Air 3 04/14/25 12:12 04/14/25 12:12 04/14/25 12:12 04/14/25 12:12 04/14/25 12:12 04/14/25 12:01 04/13/25 22:47 FiO2 40 04/13/25 12:00 Narrative Exam General: No acute distress, well nourished, Generalized bodyache. HENT: Normocephalic, atraumatic, hearing intact to conversation at normal volume, moist oral mucosa Neck: Supple, non-tender, no JVD, no lymphadenopathy Lungs: Non-labored respirations, symmetric chest rise, Clear to auscultate bilaterally Heart: Peripheral pulses intact bilaterally, Regular Rate and Rhythm Abdomen: Soft, non-tender, non-distended Musculoskeletal: Noted surgical scar on left knee, Chronic wound of 5 x 6 cm in the right lower extremity, Tissue pressure injuries on the upper lateral right and left thigh and Infected area in the right toe. Demarcated ischemia of left foot of 1st and 5th digit. Skin: Skin is warm, dry, no rashes or lesions. Psychiatric: Cooperative, appropriate mood and affect Neuro: Alert and Oriented X2. Strength 5/5 throughout. Sensations intact to light touch. Unable to abduct right eye. Objective Labs 04/14/25 22:23 04/14/25 04:45 Labs: Laboratory Results - last 24 hr 04/02/25 04/13/25 04/14/25 11:00 14:09 00:32 WBC RBC Hgb 8.0 L D Hct 24.0 L MCV MCH MCHC RDW Std Deviation Plt Count Neut % (Auto) Lymph % (Auto) Boundary % (Auto) Eos % (Auto) Baso % (Auto) Neut # (Auto) Lymph # (Auto) Boundary # (Auto) Eos # (Auto) Baso # (Auto) Immature Gran # (Auto) Absolute Nucleated RBC Immature Gran % Nucleated RBC % PT INR APTT Sodium Potassium Chloride Carbon Dioxide Anion Gap BUN Creatinine Estim Creat Clear Calc eGFR BUN/Creatinine Ratio Glucose Calculated Osmolality Calcium Corrected Calcium Phosphorus Magnesium Total Bilirubin AST ALT Alkaline Phosphatase Total Protein Albumin Globulin Albumin/Globulin Ratio CA 15-3 Antigen Cycl Citrul Peptide IgG <16 ANCA Screen NEGATIVE c-ANCA Titer TNP Anti-Proteinase 3 <1.0 p-ANCA Titer TNP Atypical p-ANCA Titer TNP Anti-Myeloperoxidase <1.0 Complement C3 142 Complement C4c 26 HCV RNA Quant (PCR) <15 NOT DETECTED HCV RNA (PCR) IU log10 <1.18 NOT DETECTED Blood Type AB Positive Antibody Screen NEGATIVE Crossmatch See Detail Blood Bank Wristband ID Yes 04/14/25 04/14/25 04:45 08:27 WBC 13.7 H RBC 2.70 L Hgb 7.8 L 7.9 L Hct 23.6 L 23.7 L MCV 87 MCH 28.9 MCHC 33.1 RDW Std Deviation 50.9 H Plt Count 357 Neut % (Auto) 70 Lymph % (Auto) 18 Boundary % (Auto) 7 Eos % (Auto) 1 Baso % (Auto) 0 Neut # (Auto) 9.6 H Lymph # (Auto) 2.5 Boundary # (Auto) 1.0 H Eos # (Auto) 0.1 Baso # (Auto) 0.0 Immature Gran # (Auto) 0.58 H Absolute Nucleated RBC 0.00 Immature Gran % 4 H Nucleated RBC % 0 PT 13.0 H INR 1.2 APTT 23.8 D Sodium 140 Potassium 4.0 Chloride 102 Carbon Dioxide 24.3 Anion Gap 14 BUN 77 H Creatinine 2.3 H Estim Creat Clear Calc 26.2 L eGFR 24 L BUN/Creatinine Ratio 33 H Glucose 185 H Calculated Osmolality 307 H Calcium 9.0 Corrected Calcium 9.7 Phosphorus 3.6 Magnesium 1.4 L Total Bilirubin 0.6 AST 16 ALT 8 L Alkaline Phosphatase 50 Total Protein 5.6 L Albumin 3.1 L Globulin 2.5 Albumin/Globulin Ratio 1.2 CA 15-3 Antigen 7.6 Cycl Citrul Peptide IgG ANCA Screen c-ANCA Titer Anti-Proteinase 3 p-ANCA Titer Atypical p-ANCA Titer Anti-Myeloperoxidase Complement C3 Complement C4c HCV RNA Quant (PCR) HCV RNA (PCR) IU log10 Blood Type Antibody Screen Crossmatch Blood Bank Wristband ID ABG Interpretation ABG results: 03/26/25 03/26/25 03/26/25 11:18 11:44 16:23 ABG pH 7.27 L Cancelled ABG pCO2 40 Cancelled ABG pO2 146 H Cancelled ABG HCO3 18 L Cancelled ABG O2 Saturation 100 H Cancelled ABG Base Excess -8 L Cancelled VBG pH 7.19 L VBG pCO2 48 VBG pO2 37 VBG Base Excess -10 L 03/26/25 03/27/25 03/27/25 18:43 00:17 03:42 ABG pH 7.16 L* D 7.24 L Cancelled ABG pCO2 58 H D 44 D Cancelled ABG pO2 68 L D 80 L Cancelled ABG HCO3 21 19 L Cancelled ABG O2 Saturation 90 L 96 Cancelled ABG Base Excess -9 L -8 L Cancelled VBG pH VBG pCO2 VBG pO2 VBG Base Excess 03/27/25 03/27/25 03/27/25 04:04 07:55 18:48 ABG pH 7.26 L 7.30 L ABG pCO2 43 37 ABG pO2 83 174 H D ABG HCO3 19 L 18 L ABG O2 Saturation 97 101 H ABG Base Excess -7 L -8 L VBG pH 7.21 L 7.31 L VBG pCO2 49 48 VBG pO2 54 52 VBG Base Excess -8 L -2 03/27/25 03/28/25 03/28/25 19:07 04:06 13:37 ABG pH 7.36 7.38 7.41 ABG pCO2 41 45 44 ABG pO2 79 L D 73 L 105 D ABG HCO3 23 27 H 27 H ABG O2 Saturation 97 96 99 H ABG Base Excess -2 1 2 VBG pH VBG pCO2 VBG pO2 VBG Base Excess 03/29/25 03/30/25 03/31/25 04:45 04:50 04:40 ABG pH 7.38 7.42 7.39 ABG pCO2 45 40 41 ABG pO2 72 L D 66 L 63 L ABG HCO3 27 H 26 25 ABG O2 Saturation 98 93 92 ABG Base Excess 1 2 0 VBG pH VBG pCO2 VBG pO2 VBG Base Excess 03/31/25 04/13/25 17:30 13:33 ABG pH 7.39 ABG pCO2 36 ABG pO2 80 L ABG HCO3 21 ABG O2 Saturation 96 ABG Base Excess -3 VBG pH 7.49 VBG pCO2 32 L VBG pO2 68 H VBG Base Excess 1 Quality Measures Quality Measures VTE prophylaxis Assessment & Plan Assessment Current Active Medications: Generic Name Dose Route Start Last Admin Trade Name Freq PRN Reason Stop Dose Admin Acetaminophen 650 mg 04/01/25 09:12 04/13/25 11:14 Acetaminophen 325 Mg Tablet PO 04/25/25 18:57 650 mg Q4HR PRN Administration Pain Scale 1-3 OR fever >100.4 Albuterol/Ipratropium 3 ml 04/11/25 10:04 Albuterol/Ipratropium (Duoneb) Rt Jennifer 3 Ml Nebu INH 04/26/25 00:59 Q6HRRT PRN SHORTNESS OF BREATH Amlodipine Besylate 10 mg 04/02/25 09:00 04/14/25 13:07 Amlodipine Besylate 5 Mg Tablet PO 05/02/25 08:59 Not Given QDAY CRIS Ascorbic Acid 250 mg 04/03/25 12:00 04/14/25 09:39 Ascorbic Acid 250 Mg Tablet PO 05/03/25 11:59 250 mg BID CRIS Administration Atorvastatin Calcium 80 mg 03/26/25 21:00 04/13/25 20:33 Atorvastatin Calcium 20 Mg Tablet PO 04/25/25 20:59 80 mg HS CRIS Administration Carvedilol 6.25 mg 04/01/25 17:30 04/14/25 13:07 Carvedilol 3.125 Mg Tablet PO 05/01/25 17:29 Not Given BIDWM CRIS Dextrose 25 ml 03/26/25 20:20 Dextrose 50%-Water Inj 50 Ml Syringe IV 04/25/25 20:19 Q15MIN PRN BG 50-70 responsive npo pt Dextrose 50 ml 03/26/25 20:20 Dextrose 50%-Water Inj 50 Ml Syringe IV 04/25/25 20:19 Q15MIN PRN BG <50 OR BG <70 & pt unresponsive Gabapentin 100 mg 04/06/25 22:00 04/14/25 06:45 Gabapentin 100 Mg Capsule PO 05/06/25 21:59 100 mg TID CRIS Administration Glucagon 1 mg 03/26/25 20:20 Glucagon Inj 1 Mg Vial IM Q15MIN PRN BG <70, and no IV access Heparin Sodium (Porcine) 3,000 unit 04/09/25 17:10 04/14/25 12:03 Heparin Sod Inj 1000 Unit/Ml Vial 10 Ml INDWELLCAT 04/23/25 17:09 3,000 unit X1 PRN Administration DIALYSIS Hydralazine HCl 25 mg 04/01/25 14:00 04/14/25 06:42 Hydralazine Hcl 25 Mg Tablet PO 05/01/25 13:59 Not Given TID CRIS Insulin Degludec 24 unit 04/01/25 21:00 04/13/25 20:45 Insulin Degludec 5 Unit/0.05 Ml (Per 5 Units) [place] 05/01/25 20:59 24 unit HS CRIS Administration Insulin Human Lispro 0 unit 04/04/25 21:00 04/14/25 13:07 Insulin Lispro (Admelog) 1 Unit/0.01 Ml Unit [place] 05/04/25 20:59 Not Given ACHS [facility] Protocol Labetalol HCl 10 mg 04/01/25 11:16 Labetalol Inj 5 Mg/Ml Vial 20 Ml IVP 05/01/25 11:29 Q4HR PRN if SBP>140 Nicotine 21 mg 04/05/25 10:45 04/14/25 09:52 Nicotine Patch 21 Mg/24 Hr Patch.Td24 TOP 05/05/25 10:44 21 mg QDAY CRIS Administration Quetiapine Fumarate 25 mg 04/08/25 21:00 04/13/25 20:30 Quetiapine Fumarate 25 Mg Tablet PO 05/08/25 20:59 25 mg HS CRIS Administration Sevelamer Carbonate 800 mg 04/05/25 08:00 04/14/25 13:08 Sevelamer Carbonate 800 Mg Tablet PO 05/05/25 07:59 800 mg TIDWM CRIS Administration Vitamin B Complex/Vit C/Folic Acid 1 tab 04/03/25 12:00 04/14/25 09:39 Vit B12/Vit C/Fa (Nephrovite) Tablet PO 05/03/25 11:59 1 tab QDAY CRIS Administration Zinc Sulfate 220 mg 04/03/25 12:00 04/14/25 09:39 Zinc Sulfate 220 Mg Capsule PO 04/17/25 11:59 220 mg QDAY CRIS Administration Plan 59F with PMH of DM, HTN, asthma, drug use disorder, and a chronic right leg wound was brought to the ED after being found unresponsive (responsive after Narcan administration) at home where she was found to have acute encephalopathy with low GCS requiring intubation and ICU admission for ventilator support, pressor support for likely septic shock, and CRRT. Patient found to have multi embolic disease involving multiple systems including brain and left distal extremity, acute and failure with the cause likely renal emboli. #Acute encephalopathy, multifactorial, related to metabolic derangement, substance use, and embolic CVA (Resolving) #Acute Multiple embolic type foci occipital lobes, bilateral frontal and bilateral parietal lobe #Atrial septal aneurysm #PFO #Subarachnoid hemorrhage #Hemorrhage in the posterior left parietal #Endocarditis - r/o #Tricuspid valve vegetation - r/o -Patient came in with altered sensorium and head CT at the time showed multiple bilateral infarcts, likely embolic. Patient was weaned off sedation and extubated on 03/31/2025, tolerated well. Currently, patient is improving and is alert and oriented. Patient has extensive DVT in the left lower extremity also noted to have pulmonary embolism, patient might be having embolism through PFO and reaching the systemic circulation. -TTE showed normal size left ventricle with mild apical and global hypokinesis LVEF 40-45%. Evidence of Tricuspid valve vegetation suggestive of endocarditis. The RV is normal in size. The right ventricular systolic function is mildly decreased. Aortic valve sclerosis thickened wih mild aortic regurgitation. Mitral valve thickening with mild mitral regurgitation. -SYLVIE (03/30/25) confirmed no vegetations. Noted to have atrial aneurysm bulging into left atrium, bubble study done showed PFO -EEG from 04/02/25 shows diffuse slowing suggestive of a diffuse encephalopathy of vascular origin. -Per neurology team, given PE and small PFO, PE could be the cause of embolism vs endocardititis but less likely as negative SYLVIE for vegation. Although leukocytosis noted, less likely secondary to endocarditis in origin and more likely secondary to ischemia vs less likely increased coagulopathy as no previous history of DVTs. -Hematology Dr. Krishna was consulted who agreed with the current plan. -MR venogram negative for any thrombus -New blood cx negative -Repeat brain CT (04/11/25) shows Acute infarction in left middle cerebral artery distribution, left frontal, parietal, left occipital lobes. Improvement in subarachnoid hemorrhage, minimal residual in right frontal convexity. - (04/13/25) 2 days after heparin gtt started, inital brain CT revealed no new infacrts or hemorrhage, however when repeat brain CT was ordered following noted Hgb of 5.7 with hypotension, it revealed more prominent hemorrhage in the posterior left parietal infarct compared with the one done earlier. - Hypercoagulable studies: Positive cryoprecipitate but low < 1%, 1/2 samples positive for lupus anticoagulant. Weakly positive for hexagonal phase confirm test. Positive EFFIE. negative anti double-stranded. Negative antiphopholipid panel, Normal protein C and S activity, normal antithrombin III, Negative Factor V liden, elevated alpha 1,2 globulins, low B1 globulin, negative factor II Plan: - Repeat brain CT (04/14/25) shows enlarging acute infarct in the left frontal parietal region, hemorrhages more prominent in the infarct in the posterior left parietal lobe, stable hemorrhage in the acute right frontal lobe infarct - Patient was upgraded to ICU due to hemodyanmic instability on 04/13/25. Patient's condition stabilized and is hemodynamically stable for downgrade to Tele floor (04/14/25) - Hold Heparin and aspirin - Discussed with patient and their family members regarding the current plan of starting anticoagulation medication if cleared by neurology team. Explained to patient and their family members regarding risks and benefits of starting anticoagulation. Explained to them that if we don't start anticoagulation her PE and DVT may have negative consequences (ie. worsening of her current condition) and she may be at risk for more thromboses and on the other hand, if we do start these medications she may be at risk for new brain hemorrhage, worsening of current hemorrhage or bleedings else where in her body. Patient and family understands the risks and benefits and agree with the plan of starting anticoagulation if prompted by the neurology team. - Avoid sedative medication, monitor for any mental status changes - Continue atorvastatin - IVC filter placement is done on 03/31/2025 to prevent further embolic strokes through PFO from DVT - No need of urgent PFO closure as per Dr. Nayak. - Pending the rest of hypercoaugulable workup: ANCA, antiproteinase 3, anti myeloproxidase, complement C3 and C4 #Septic shock (resolved) #Hospital-Acquired PNA (Improved) # UTI (Improved) At the time of admission, patient was noted to have bilateral lower extremity edema and bilateral diffuse inspiratory crackles -possible heart failure in the setting of methamphetamine abuse, diabetes, hypertension. Also noted to have temperature of 101.8 ?F at the time of admission, likely due to some ongoing infection. Fits into 2/3 qsofa criteria. Noted to have GCS less than 15 and respiratory rate 35/min. Suspecting sepsis worsening the underlying heart failure resulting in suspected possible combined septic and cardiogenic shock. DDx: Combined cardiogenic and septic shock Patient was started on Levophed and weaned off completely on 03/30/2025 WBC on admission 13.1, procalcitonin 43.23. UA showed turbid urine with 2+ proteinuria, 3+ glucosuria, 112 WBC, 4+ bacteria suggestive of UTI. Urine culture positive for E.coli. Leukocytosis now resolved to 8.9. Patient remains afebrile. Initially patient was started on vancomycin and Zosyn [03/27-03/30], discontinued Vanco and Zosyn, Started on Rocephin (03/30-04/04) Blood cx and sputum culture negative Finished Vancomycin and cefepime 2g to cover for HAP (04/04/25-04/13/25) Plan: - Will continue to monitor vitals and labs # Acute hypoxic respiratory failure (resolving) # Respiratory acidosis (resolved) Per patient family, patient does not have any previous history of respiratory problems and is not using any inhalers. Not a smoker. ABG at the time of admission showed pH 7.16, pCO2 58, pO2 68, FiO2 100%. Repeat ABG done on 03/27/2024 showed pH 7.3, pCO2 37, bicarb 18. Repeat ABGs done after 03/28/2025 is within normal limits. CTA chest Positive for multiple right lower pulmonary artery filling defects. Positive for left upper lobe pulmonary artery filling defects. No emboli in the main pulmonary artery segments. Pneumonia versus infarction in both lower lung zones. CXR shows bibasilar pneumonia DDx: Sepsis, acute encephalopathy, pulmonary edema, pulmonary embolism, combined. Patient was intubated, sedated and placed on mechanical ventilator on 03/26 and extubated on 03/31. Though patient had pulmonary embolism, patient oxygen needs is coming down. Plan: - Will continue oxygen as needed for now. #KINJAL (Improving) #Acute renal failure likely 2/2 septic shock vs. renal emboli vs. rhabdomyolysis (improved) #Nephrotic range proteinuria Patient does not follow-up any primary care doctor and unsure of her baseline kidney functions. Patient noted to have decreased urine output and oliguric which have improved Creatinine at the time of admission is 2.8 --> 03/30, 2.4 --> 03/31, 3.1 --> 04/01, 4.9 --> 04/03, 5.5--> 04/07 3.0-->04/09, 3.0-->04/11 2.4--> 04/12 2.3 Possible kidney damage from elevated blood glucose 550 on admission, in addition to CK 9752 and U tox positive for amphetamines/methamphetamines DDx: multifactorial etiologies including intravascular depletion, diabetic nephropathy, blood pressure derangements, glomerular diseases, sepsis-induced ATN, rhabdomyolysis, cardiorenal syndrome, crystalline nephropathy associated with oxalate, or atheroembolic disease Cr improving wth electrolytes in normal ranges. No need for HD at this time. Negative blood cx x2 Plan: - Patient received HD this morning - Patient did not tolerate permanent cath placement (04/07/25). Recommended by radiology team to perform this under anesthesia; however, given current active medical problems we predict poor outcomes if patient undergoes anesthesia at this time. Discussed the case with the nephrology team, as they recommend permanent catheter placement for dialysis that patient will need for upon discharge. - IR refused repeating permanent catheter placement given patient's inadequate sedation during the last attempt as she was not cooperative. - Temporary HD cath was placed by ICU team (04/09/25). Patient will need a permanent cath placement prior to discharge, as this can be done on Sunday by IR here at [facility] or transfer to [facility]. - We will consider LTAC if family requesting all aggressive measures including outpatient dialysis. - IV albumin prn - Held IV Bumex - Will continue to monitor urine output - Monitor renal panel - Avoid nephrotoxic agents (aminoglycosides, NSAIDs, radiographic contrast) - Adjust medication dosing based on patient's impaired renal function - Hold any KRISSY/ARB/diuretics - HD: 03/28 CRRT, HD 03/29, 03/30, 03/31, 04/03, 04/04, 04/06, 04/09 labs unable to be drawn 2/ agitation and no IV access - Hold getting CT guided renal biopsy, to assess proteinuria - Started Sevelamer 800 mg TID with meals for hyperphosphatemia despite HD yesterday - Kidney biopsy was not performed due to small size of observed mass # HFrEF, EF 40 to 45% #Substance Use Disorder Unsure whether patient is regular methamphetamine user, as family members is not aware of the use. Patient also have severe uncontrolled diabetes mellitus, which could also contribute to the ischemic heart disease and CHF. Plan: - Patient should be started on GDMT but in the setting of ongoing acute kidney injury and recovering shock, will hold GDMT for now - Removed fluid through CRRT/HD #NSTEMI type type I (embolic AR) vs. Type 2 (demand ischemia 2/2 shock) In the setting of demand ischemia. Troponin at the time of admission is 0.427, peaked at 20.920 and later down trended. EKG did not show any ST-T wave changes Plan: - Will continue telemetry monitoring - Intake Counselor, Dr. Nayak is consulted and will follow the recommendations #Anemia #GI Bleed 2 days following the start of heparin gtt given no new brain hemorrhage, patient was noted to have Hgb of 5.7. SOBT positive (04/13/25) but no evelina blood was observed. Melena was noted. Differentials included GI bleed vs brain hemorrhage. Patient received 2 units of PRBC in the ICU (04/13/25) Per GI consult note, the acute drop in hemoglobin hematocrit to 5.1 and 18.5 without any evidence of evelina GI bleeding although patient is FOBT positive which is not significant enough to explain this drop in hemoglobin hematocrit. GI bleed is not the sole reason for drop in hemoglobin hematocrit as she is only Hemoccult positive without any evidence of evelina GI bleeding. Hgb is now stable at 7.9. Plan: -Conservative management with blood transfusion -Hold off doing any invasive GI workup at the moment unless and until patient has a evelina GI bleed - Monitor H&H, transfuse if Hgb <7 # Pulmonary embolism # DVT Patient was noted to have mismatch between end-tidal CO2 and arterial CO2, also noted to have increased oxygen requirements on the ventilator for which CTA chest was ordered on 03/28/2025 CTA chest was positive for multiple right lower pulmonary artery filling defects. Positive for left upper lobe pulmonary artery filling defects. No emboli in the main pulmonary artery segments. Pneumonia versus infarction in both lower lung zones. Echocardiogram did not show any RV strain, though patient noted to have elevated troponin with peak level at 20.920, later down trended. EKG did not show any signs suggestive of pulmonary embolism. Venous doppler of LLE showed extensive chronic nonocclusive DVT involving the common femoral left superficial femoral, popliteal, peroneal, posterior tibial and greater saphenous veins. Tubular structures in the right popliteal fossa 6.0 cm in left popliteal fossa Plan: - Held heparin gtt and aspirin due to new brain hemorrhage - IVC filter is by Dr. Murillo on 03/31/2025 - Patient is not a candidate of mechanical thrombectomy as of now and does not seem to be in right heart failure #Hypertension (imporved) Patient noted to have history of hypertension but not using any medications before coming to the hospital BP initially elevated with SBP around 180-190. Now stabilized around 130s-140s. Plan - Held amloidipine - Continue carvedilol - Will continue to monitor blood pressures and titrate medications as needed #Agitation Patient was noted to be agitated at times recently and pulling out her IV access lines and vital sign monitors. Plan: - Continue Seroquel 25 PO qhs - Apply soft restraints if medically indicated #Abdominal pain (resolved) #Umbilical hernia with incarcerated fat #Gallbladder sludge #Prominent pancreatic head #Right hilum mass #Right lower lobe mass #Left adrenal gland mass #Uterine fundal mass #Focal mucinosis Patient reported diffuse abdominal pain today (04/03/25). On exam, diffuse TTP noted mainly in RUQ and LUQ with no peritinic signs. Her LUQ could be due to the renal infarct that has been noted on recent CT. Lactate: 1.1 COUNSELOR EDUCATION PROFESSOR was called while receiving HD. CTA abd&pelvis was ordered which showed gallbladder sludge and 22mm umbilical hernia with incarcerated fat and negative for any bowel ischemia. Patient was placed NPO and OG tube was inserted however later was pulled out by pt. General surgery Dr. Wood was consulted who recommended no surgical intervention at this time given current comorbidities and the fact that the hernia is most likely chronic. RUQ US was ordered due to concern for budd chiari which was negative for gallstones, however showed thickened gallbladder wall of 0.45cm and prominent pancreatic head of 3.5cm and moderate hepatomegaly. Below incidental findings were also noted in the CTA abd&pelvis: Mass contiguous with the right hilum 32 mm Mass in the right lower lobe 28 mm Nodular thickening left adrenal gland measuring 24 mm Atrophic anteverted uterus with calcified uterine fundal mass Pathology report on 04/06 for the biopsy of the left medial knee skin shows benign skin with changes suggesting focal mucinosis without signs of neoplasia Normal AFP and CEA Plan: - CTM - Interventional radiology does not think that any of the patient's masses are good candidates for biopsy at this time - Consulted Radiation Oncology for suspected malignancy, recommended outpatient workup following discharge - Ordered tumor markers CA 19?9 CA 15-3 and CA125 - Patient will need to follow up with PCP upon discharge for the incidental findings listed above # Transaminitis (resolved) # Hyperbilirubinemia (resolved) #Hepatitis C At the time of admission patient was found to have bilirubin of 1.6, AST 146, ALT 61 ---> 8/19, AST 76, ALT 74 --> 8/, AST 42 , ALT 65--> 04/07 AST 25, ALT 29 DDx: Fatty liver versus chronic liver disease versus viral hepatitis versus secondary to ongoing septic shock and possible suspected ischemia Tested positive for hepatitis C antibody. Liver ultrasound showed 10 mm gallstone, CBD enlarged 0.6 cm, liver 18.5 cm fatty infiltration Plan: - Patient has to follow-up with program manager environmental planning on discharge on outpatient basis for follow-up on hepatitis C, currently does not suspect any active viral hepatitis # High anion gap metabolic acidosis (resolved) # Lactic acidosis (resolved) Likely in the setting of ongoing shock, likely due to sepsis. At the time of admission, anion gap is 19, lactate is 4.7 ---> 04/01, AG 22, Lactate 1.1 --> 04/03 AG 16, lactate 1.1 Anion gap improved on day of admission and lactic acidosis is slowly improving after starting CRRT. Plan: - Received CRRT on 03/27 and 03/28, HD on 03/29, 03/30, 03/31, 04/03, 04/04, 04/06, 04/14 - Will continue to monitor lab values # Rhabdomyolysis (resolved) Patient happened to be on the floor lying down for 4 to 5 hours and also tested positive for methamphetamine on urine toxicology CK at the time of presentation is 9752 and received 2 L of fluid in the ED, as patient is fluid overloaded cannot give more fluids CK levels continue to trend down slowly to 1187. Plan: -CTM # Uncontrolled type 2 diabetes mellitus Patient is not following any primary care provider and not taking medications properly per patient's family. Blood glucose at the time of admission is 550 for which patient was given 10 units of lispro in the ED. The patient had high anion gap metabolic acidosis, tested negative for beta- hydroxybutyrate and DKA is ruled out. A1C: 13.6 Patient achieving appropriate glucose control with current regimen Plan: - Degludec 24 U QHS + ISS step 3 - Will titrate degludec according to FBS # Chronic right leg wound Likely from uncontrolled diabetes mellitus and venous congestion. On physical examination, noted 5 x 6 cm wound with well-healing granulation tissue. Arterial Doppler was ordered which showed no PAD in bilateral lower extremities Plan - Wound care consulted - Continue Vitamin C 250mg BID - Continue Zinc sulfate 220mg Qday x14 days (04/03-) - Nephro-Vu # History of asthma Unclear if patient is using inhalers or if she has recent exacerbations. Currently does not appear to be in any exacerbations Plan: -CTM Health Maintenance: Diet: cons carb GI prophylaxis: Protonix DVT prophylaxis: Held Heparin gtt Antibiotics: Finished a course of cefepime and vanco on 04/13/25 CODE STATUS: Full Disposition: ICU upgrade Case discussed with attending Dr. Sexton and senior residents Drs. Boyce and Benito. Thomas Rand DO PGY1 Attending Provider Attestation/Addendum I have examined the patient, reviewed labs and imaging findings, discussed the case with the resident(s), and reviewed entered orders. I agree with the plan of care as outlined in this note. Dr. Darshan MD
--- NOTE | 2025-04-14 14:34 | ESPR_ITS ---
<Statement entered by Angelito East MD - 04/14/25 20:59> I personally examined the patient and supervised PGY 1 resident, Dr. Collins, with plan of care for this patient. I agree with their documentation with the exceptions as listed below. Today repeat head CT was done which confirmed stable hemorrhagic infarct in posterior left parietal and right frontal lobe patient also had hemodialysis as per nephrology recommendation. Radiation oncology, Dr. Ogden was consulted and commended CA 19?9 and CA 15-3, also said no acute intervention at but recommended patient follow-up outpatient for PET scan. Interventional radiologist, Dr. Weller was also curb sided, he said that none of the patient's masses, fluid in the lung, hilar and adrenal were not large enough to biopsy. Post 2 units PRBC infusion patient's hemoglobin remained stable at 7.9. Goals of care discussion with patient's , Scottie was. Informed about patient's poor prognosis due to high risk of bleeding and further worsening of hemorrhagic stroke with further anticoagulation. He was informed of high risks of bleeding and no further anticoagulation at this point. Also discussed difficulties with outpatient hemodialysis with regards to patient's being able to sit in a chair to 3 times a week. We also discussed the high likelihood of metastatic cancer and poor prognosis. At this time patient's would like more time to decide on a final decision. Currently patient is clinically stable and was downgraded to telemetry Plan of care discussed with Attending Dr. Ravi East MD PGY 2 Disclaimer: This note was dictated by speech recognition. Minor errors in machine setup operator may be present due to voice recognition software. Documentation for date of: 04/14/25 Subjective Subjective Interval history: Vashti Ross is a 59-year-old F with a PMH of 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 as well as DVT/PE that occurred during current hospitalization, PFO s/p 03/31/25 IVC filter placement, multiple masses spread throughout the body suspicious for metastasis (including locations at pancreatic head, right hilum, right lower lobe of the lung, left adrenal gland, and uterine fundus), chronically incarcerated umbilical hernia, stage IV CKD, HCV(+) status, mild CHF (EF of 40 to 45% from 03/28/25 echocardiogram), poorly controlled insulin-independent T2DM, hypertension, asthma, methamphetamine use disorder, and a chronic right leg wound who returns back to the ICU from floors for acute blood loss anemia concerning for worsening hemorrhagic stroke. Initially, patient was BIBA to the ED at [facility] around 09:00 on 03/27 after her sister came to check on her and called for an ambulance. Apparently, patient's first found her in a stuporous state at 05:00, tried to rouse her but failed, and then called patient's sister before leaving for work. Patient was noted to be altered with a respiratory rate of 4 en route to [facility]. A total of 8 mg of Narcan was administered at this time which initially improved mentation. Upon arrival, patient was noted to be somnolent and given an additional 0.4 mg of IV Narcan which made her more active but also more combative. She was also noted to be hypoxic and in respiratory distress upon arrival which led her to be put on BiPAP. During her agitated episode, patient endorsed that she hurt all over and loudly yelled that I gotta get out of here . She was eventually given 2 mg of IV Versed and put on restraints due to her continued agitation. Later, she was taken for an MRI which required removal of her BiPAP but upon removal a subsequent drop in O2 saturation to the low 90s was noted. It was deemed that her airway was not secure and the decision was made to intubate the patient. In the ED, vitals showed: BP 107/78 HR 94 RR 35 Temp 101.3 SpO2 98% on 15 L BiPAP ED Course: CBC showed high WBC 13.1 w/ neutrophilic predominance but was otherwise WNL. Coagulation panel showed high PT 13.3. ABG showed acidic pH 7.27, normal pCO2 40, high pO2 146, low HCO3 18. CMP showed low carbon dioxide 18.1, high anion gap 19, high creatinine 2.8, low eGFR 19, very high blood glucose 550, very high lactic acid 4.7, high bilirubin 1.6, high AST 146, high ALT 61, high total creatine kinase 9752, very high troponin I 0.427, high BNP 297, and high procalcitonin 43.23. UA showed 2+ protein, 3+ glucose, 1+ ketones, 3+ blood, high RBC 10, high WBC 112, 3+ calcium oxalate crystals, 4+ bacteria, normal random sodium 34.2, normal random potassium 26, and low random chloride 23.2. UDS was (+) for amphetamines/methamphetamines and marijuana. Serological studies were reactive for hepatitis C antibody. Imaging: Head CT showed findings most consistent with acute right frontal lobe infarcts. Brain MRI showed multiple embolic-type foci of restricted diffusion in the b ilateral occipital lobes, bilateral frontal lobes, and bilateral parietal lobes most consistent with acute infarcts. CXR showed bibasilar pneumonia and findings suspicious for mild associated heart failure. Renal US showed small kidneys with right renal cortical thinning as well as mild right and moderate left renal parenchymal scar formation. Carotid doppler study showed 20-40% stenosis of the right internal carotid artery and 0-10% stenosis of the left internal carotid artery. EKG was unremarkable. In the ED, patient was given Duoneb Precedex, doxycycline, etomidate, Lasix, regular insulin, ketamine, Versed, naloxone, 1 L LR bolus, Zemuron, and 1 L NS bolus. Patient was intubated due to low GCS and was admitted to the ICU for the 1st time. In the ICU, patient underwent management of acute hypoxic respiratory failure, acute toxic metabolic encephalopathy, and rhabdomyolysis. Due to KINJAL on CKD 2/2 multiorgan failure and septic shock, patient was started on CRRT over the course of her ICU stay. An 03/26/25 echocardiogram found mild apical and global hypokinesis with an LVEF of 40 to 45% with tricuspid valve vegetations suggestive of endocarditis. A CTA was also done due to patient's increasing negative FiO2 on the ventilator on 03/28 during which she was found to have multiple bilateral PEs mainly in the right lower lobe pulmonary artery and left upper lobe. A venous Doppler also showed extensive non-occlusive DVT in the left lower extremity extending up to the common femoral vein. Due to the concern for hemorrhagic transformation of the patient's embolic CVA as well as the suspicion that the multiple emboli were 2/2 infective endocarditis, anticoagulation was held. A repeat head CT was done during 03/30 which did show hemorrhagic transformation with multiple interval areas of subarachnoid hemorrhage involving the right frontal convexity as well as the left frontal parietal convexity in the right frontal sulci. A SYVLIE had been done as well on 03/30 during which no vegetations were seen, but patient was found to have an atrial septal aneurysm and PFO. Blood cultures at that point had been positive for Staphylococcus hominis in only 1 bottle, which was thought to be more likely secondary to contamination. A urine culture was done showing pansensitive E. coli. Patient had initially been on vancomycin and Zosyn since admission and was later switched to Rocephin 2 g IV daily beginning 03/30. Transfer had been initially initiated on 03/30 for higher level of care due to the concern of multiple embolic strokes in the setting of PFO. However, cardiothoracic surgery at [facility] had low suspicion for embolic stroke caused by small PFO and recommended hypercoagulability workup before considering PFO closure. An IVC filter was placed on 03/31. CT of chest abdomen pelvis was also done that day showing no left atrial thrombus, PE in upper and lower pulmonary artery branches, pneumonia versus infarct in the right upper lobe and both bases and large splenic infarct with thrombus in upper lobe splenic arteries. Patient was extubated on 03/31 and hypercoagulable workup was initiated. Repeat CT head on 03/31 was done showing stable areas of subarachnoid hemorrhage so anticoagulation. Skin biopsy was done at bedside of the livedo reticularis. Eventually patient was stabilized and downgraded to floors on 04/02. While on floors, it was found that patient had multiple masses spread throughout the body suspicious for metastasis (including locations at pancreatic head, right hilum, right lower lobe of the lung, left adrenal gland, and uterine fundus) but the source of the primary etiology is unclear. For the above finding, hematology- oncology and radiation-oncology were consulted. However, patient was being prepared for discharge on 04/13 when she had a sudden change in mentation and acute drop in hemoglobin from 9.5 to 5.7. As such, patient was readmitted to ICU for the 2nd time due to concern for worsening of hemorrhagic conversion of her stroke. Interval History 04/13/25: Patient seen and examined at bedside; she endorses symptoms of bilateral lower extremity pain and fatigue. Pertinent lab findings today include: WBC bump to 12.0 from 8.9, Hgb drop to 5.7 from 9.5 (MCV 95, RDW 54.4), normal platelet count 382, PT 14.3, INR 1.3, APTT >139.0, BUN 66, creatinine 2.4, glucose 157, calculated osmolality 301, and (+) stool occult blood. CTAP showed cholelithiasis, 18 mm left adrenal nodule, previously noted splenic artery infarct, and moderate bilateral renal scar formation. Chest CT showed an opacity at the right perihilar base suggesting possible pneumonia or pulmonary infarction. Head CT showed mild worsening of hemorrhagic conversion. Currently, patient is to receive 2 units of pRBCs for her acute blood loss anemia with one dose of IV Lasix 40 mg being given before the first transfusion to avoid TACO due to her heart failure. Per neurology recommendations, heparin has been stopped to prevent further worsening of hemorrhagic conversion and aspirin will be avoided. GI has been consulted for suspected acute blood loss anemia (in the setting of accompanying melena) 2/2 GI bleed 2/2 heparin use. As mentioned previously, hematology-oncology and radiation-oncology have been consulted for the multiple masses spread throughout the body. Tentatively, a left kidney biopsy is slated for tomorrow once cleared with interventional radiology in order to determine a primary source. 04/14/25: No overnight events. Patient seen and examined at bedside; she remains acutely agitated and continues to cry out MOM and HELP intermittently which has been ongoing all night per nurses. Pertinent labs today include: WBC bumped to 13.7 from 12.0, hemoglobin bump to 8.0 from 6.4, PT dropped to 13.0 from 14.3, APTT drop to 23.8 from greater than 139.0, BUN bumped to 77 from 69, creatinine dropped to 2.3 from 2.5, glucose 185, calculated osmolality 307, magnesium 1.4, and albumin 3.1. CA 15-3 antigen came back within normal limits at 7.6. CA 19?9 antigen is still pending. Per GI recommendations, endoscopy is not indicated at this time due to no evidence of evelina bleeding. Patient will be conservatively managed via blood transfusions and will receive hemodialysis today for her oliguria. Per neurology recommendations, patient's statin medication will be continued while heparin is held and aspirin is avoided. Interventional radiology does not think that any of the patient's masses are good candidates for biopsy at this time. Patient will be downgraded to floors for continued medical management due to lack of acute indications requiring ICU care. Exam Vital Signs Temp Pulse Resp BP Pulse Ox O2 Del Method O2 Flow Rate 97.1 F 78 23 H 94/63 96 Room Air 3 04/14/25 12:12 04/14/25 12:12 04/14/25 12:12 04/14/25 12:12 04/14/25 12:12 04/14/25 12:01 04/13/25 22:47 FiO2 40 04/13/25 12:00 Narrative Exam Physical Exam: General: Alert, no acute distress. Skin: Pale-appearing. Cool skin. Ulcer of the L big toe over the proximal phalange with blackening of the distal portions of that toe. Head: Normocephalic, atraumatic. Eye: Slightly icteric. Bilateral corneal arcus noted. EOMI and PERRLA. Throat: Oral mucosa moist. Cardiovascular: Regular rate and rhythm, no murmur, normal peripheral perfusion, no edema. Respiratory: Lungs are clear to auscultation, respirations non labored, no crackles, no wheezing. Gastrointestinal: Soft, mildly distended, mild discomfort to palpation throughout. No guarding or rebound tenderness. Temporary left femoral catheter in place. Psychiatric: Confused and agitated (calling for mom to help her and screaming). Neuro: Cannot assess due to patient's continued confusion and agitation. Objective Labs 04/14/25 22:23 04/14/25 04:45 Labs: Laboratory Results - last 24 hr 04/02/25 04/13/25 04/14/25 11:00 14:09 00:32 WBC RBC Hgb 8.0 L D Hct 24.0 L MCV MCH MCHC RDW Std Deviation Plt Count Neut % (Auto) Lymph % (Auto) [place] % (Auto) Eos % (Auto) Baso % (Auto) Neut # (Auto) Lymph # (Auto) [place] # (Auto) Eos # (Auto) Baso # (Auto) Immature Gran # (Auto) Absolute Nucleated RBC Immature Gran % Nucleated RBC % PT INR APTT Sodium Potassium Chloride Carbon Dioxide Anion Gap BUN Creatinine Estim Creat Clear Calc eGFR BUN/Creatinine Ratio Glucose Calculated Osmolality Calcium Corrected Calcium Phosphorus Magnesium Total Bilirubin AST ALT Alkaline Phosphatase Total Protein Albumin Globulin Albumin/Globulin Ratio CA 15-3 Antigen Cycl Citrul Peptide IgG <16 ANCA Screen NEGATIVE c-ANCA Titer TNP Anti-Proteinase 3 <1.0 p-ANCA Titer TNP Atypical p-ANCA Titer TNP Anti-Myeloperoxidase <1.0 Complement C3 142 Complement C4c 26 HCV RNA Quant (PCR) <15 NOT DETECTED HCV RNA (PCR) IU log10 <1.18 NOT DETECTED Blood Type AB Positive Antibody Screen NEGATIVE Crossmatch See Detail Blood Bank Wristband ID Yes 04/14/25 04/14/25 04:45 08:27 WBC 13.7 H RBC 2.70 L Hgb 7.8 L 7.9 L Hct 23.6 L 23.7 L MCV 87 MCH 28.9 MCHC 33.1 RDW Std Deviation 50.9 H Plt Count 357 Neut % (Auto) 70 Lymph % (Auto) 18 Madison % (Auto) 7 Eos % (Auto) 1 Baso % (Auto) 0 Neut # (Auto) 9.6 H Lymph # (Auto) 2.5 Madison # (Auto) 1.0 H Eos # (Auto) 0.1 Baso # (Auto) 0.0 Immature Gran # (Auto) 0.58 H Absolute Nucleated RBC 0.00 Immature Gran % 4 H Nucleated RBC % 0 PT 13.0 H INR 1.2 APTT 23.8 D Sodium 140 Potassium 4.0 Chloride 102 Carbon Dioxide 24.3 Anion Gap 14 BUN 77 H Creatinine 2.3 H Estim Creat Clear Calc 26.2 L eGFR 24 L BUN/Creatinine Ratio 33 H Glucose 185 H Calculated Osmolality 307 H Calcium 9.0 Corrected Calcium 9.7 Phosphorus 3.6 Magnesium 1.4 L Total Bilirubin 0.6 AST 16 ALT 8 L Alkaline Phosphatase 50 Total Protein 5.6 L Albumin 3.1 L Globulin 2.5 Albumin/Globulin Ratio 1.2 CA 15-3 Antigen 7.6 Cycl Citrul Peptide IgG ANCA Screen c-ANCA Titer Anti-Proteinase 3 p-ANCA Titer Atypical p-ANCA Titer Anti-Myeloperoxidase Complement C3 Complement C4c HCV RNA Quant (PCR) HCV RNA (PCR) IU log10 Blood Type Antibody Screen Crossmatch Blood Bank Wristband ID ABG Interpretation ABG results: 03/26/25 03/26/25 03/26/25 11:18 11:44 16:23 ABG pH 7.27 L Cancelled ABG pCO2 40 Cancelled ABG pO2 146 H Cancelled ABG HCO3 18 L Cancelled ABG O2 Saturation 100 H Cancelled ABG Base Excess -8 L Cancelled VBG pH 7.19 L VBG pCO2 48 VBG pO2 37 VBG Base Excess -10 L 03/26/25 03/27/25 03/27/25 18:43 00:17 03:42 ABG pH 7.16 L* D 7.24 L Cancelled ABG pCO2 58 H D 44 D Cancelled ABG pO2 68 L D 80 L Cancelled ABG HCO3 21 19 L Cancelled ABG O2 Saturation 90 L 96 Cancelled ABG Base Excess -9 L -8 L Cancelled VBG pH VBG pCO2 VBG pO2 VBG Base Excess 03/27/25 03/27/25 03/27/25 04:04 07:55 18:48 ABG pH 7.26 L 7.30 L ABG pCO2 43 37 ABG pO2 83 174 H D ABG HCO3 19 L 18 L ABG O2 Saturation 97 101 H ABG Base Excess -7 L -8 L VBG pH 7.21 L 7.31 L VBG pCO2 49 48 VBG pO2 54 52 VBG Base Excess -8 L -2 03/27/25 03/28/25 03/28/25 19:07 04:06 13:37 ABG pH 7.36 7.38 7.41 ABG pCO2 41 45 44 ABG pO2 79 L D 73 L 105 D ABG HCO3 23 27 H 27 H ABG O2 Saturation 97 96 99 H ABG Base Excess -2 1 2 VBG pH VBG pCO2 VBG pO2 VBG Base Excess 03/29/25 03/30/25 03/31/25 04:45 04:50 04:40 ABG pH 7.38 7.42 7.39 ABG pCO2 45 40 41 ABG pO2 72 L D 66 L 63 L ABG HCO3 27 H 26 25 ABG O2 Saturation 98 93 92 ABG Base Excess 1 2 0 VBG pH VBG pCO2 VBG pO2 VBG Base Excess 03/31/25 04/13/25 17:30 13:33 ABG pH 7.39 ABG pCO2 36 ABG pO2 80 L ABG HCO3 21 ABG O2 Saturation 96 ABG Base Excess -3 VBG pH 7.49 VBG pCO2 32 L VBG pO2 68 H VBG Base Excess 1 Quality Measures Quality Measures VTE prophylaxis Assessment & Plan Assessment Current Active Medications: Generic Name Dose Route Start Last Admin Trade Name Freq PRN Reason Stop Dose Admin Acetaminophen 650 mg 04/01/25 09:12 04/13/25 11:14 Acetaminophen 325 Mg Tablet PO 04/25/25 18:57 650 mg Q4HR PRN Administration Pain Scale 1-3 OR fever >100.4 Albuterol/Ipratropium 3 ml 04/11/25 10:04 Albuterol/Ipratropium (Duoneb) Rt Jennifer 3 Ml Nebu INH 04/26/25 00:59 Q6HRRT PRN SHORTNESS OF BREATH Amlodipine Besylate 10 mg 04/02/25 09:00 04/14/25 13:07 Amlodipine Besylate 5 Mg Tablet PO 05/02/25 08:59 Not Given QDAY CRIS Ascorbic Acid 250 mg 04/03/25 12:00 04/14/25 09:39 Ascorbic Acid 250 Mg Tablet PO 05/03/25 11:59 250 mg BID CRIS Administration Atorvastatin Calcium 80 mg 03/26/25 21:00 04/13/25 20:33 Atorvastatin Calcium 20 Mg Tablet PO 04/25/25 20:59 80 mg HS CRIS Administration Carvedilol 6.25 mg 04/01/25 17:30 04/14/25 13:07 Carvedilol 3.125 Mg Tablet PO 05/01/25 17:29 Not Given BIDWM CRIS Dextrose 25 ml 03/26/25 20:20 Dextrose 50%-Water Inj 50 Ml Syringe IV 04/25/25 20:19 Q15MIN PRN BG 50-70 responsive npo pt Dextrose 50 ml 03/26/25 20:20 Dextrose 50%-Water Inj 50 Ml Syringe IV 04/25/25 20:19 Q15MIN PRN BG <50 OR BG <70 & pt unresponsive Gabapentin 100 mg 04/06/25 22:00 04/14/25 06:45 Gabapentin 100 Mg Capsule PO 05/06/25 21:59 100 mg TID CRIS Administration Glucagon 1 mg 03/26/25 20:20 Glucagon Inj 1 Mg Vial IM Q15MIN PRN BG <70, and no IV access Heparin Sodium (Porcine) 3,000 unit 04/09/25 17:10 04/14/25 12:03 Heparin Sod Inj 1000 Unit/Ml Vial 10 Ml INDWELLCAT 04/23/25 17:09 3,000 unit X1 PRN Administration DIALYSIS Hydralazine HCl 25 mg 04/01/25 14:00 04/14/25 06:42 Hydralazine Hcl 25 Mg Tablet PO 05/01/25 13:59 Not Given TID CRIS Insulin Degludec 24 unit 04/01/25 21:00 04/13/25 20:45 Insulin Degludec 5 Unit/0.05 Ml (Per 5 Units) SC 05/01/25 20:59 24 unit HS CRIS Administration Insulin Human Lispro 0 unit 04/04/25 21:00 04/14/25 13:07 Insulin Lispro (Admelog) 1 Unit/0.01 Ml Unit SC 05/04/25 20:59 Not Given ACHS CRIS Protocol Labetalol HCl 10 mg 04/01/25 11:16 Labetalol Inj 5 Mg/Ml Vial 20 Ml IVP 05/01/25 11:29 Q4HR PRN if SBP>140 Nicotine 21 mg 04/05/25 10:45 04/14/25 09:52 Nicotine Patch 21 Mg/24 Hr Patch.Td24 TOP 05/05/25 10:44 21 mg QDAY CRIS Administration Quetiapine Fumarate 25 mg 04/08/25 21:00 04/13/25 20:30 Quetiapine Fumarate 25 Mg Tablet PO 05/08/25 20:59 25 mg HS CRIS Administration Sevelamer Carbonate 800 mg 04/05/25 08:00 04/14/25 13:08 Sevelamer Carbonate 800 Mg Tablet PO 05/05/25 07:59 800 mg TIDWM CRIS Administration Vitamin B Complex/Vit C/Folic Acid 1 tab 04/03/25 12:00 04/14/25 09:39 Vit B12/Vit C/Fa (Nephrovite) Tablet PO 05/03/25 11:59 1 tab QDAY CRIS Administration Zinc Sulfate 220 mg 04/03/25 12:00 04/14/25 09:39 Zinc Sulfate 220 Mg Capsule PO 04/17/25 11:59 220 mg QDAY CRIS Administration Plan Vashti Ross is a 59-year-old F with a PMH of 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 as well as DVT/PE that occurred during current hospitalization, PFO s/p 03/31/25 IVC filter placement, multiple masses spread throughout the body suspicious for metastasis (including locations at pancreatic head, right hilum, right lower lobe of the lung, left adrenal gland, and uterine fundus), chronically incarcerated umbilical hernia, stage IV CKD, HCV(+) status, mild CHF (EF of 40 to 45% from 03/28/25 echocardiogram), poorly controlled insulin-independent T2DM, hypertension, asthma, methamphetamine use disorder, and a chronic right leg wound who returns back to the ICU from floors for acute blood loss anemia concerning for worsening hemorrhagic stroke. Per GI recommendations, endoscopy is not indicated at this time due to no evidence of evelina bleeding. Patient will be conservatively managed via blood transfusions and will receive hemodialysis today for her oliguria. Per neurology recommendations, patient's statin medication will be continued while heparin is held and aspirin is avoided. Interventional radiology does not think that any of the patient's masses are good candidates for biopsy at this time. Patient will be downgraded to floors for continued medical management due to lack of acute indications requiring ICU care. NEURO #Hemorrhagic conversion of recent ischemic infarcts #Recently s/p acute multiple embolic-type foci of the occipital lobes, bilateral frontal lobes, and bilateral parietal lobes #Subarachnoid hemorrhage ICU readmission on 04/13 was due to a concern for worsening hemorrhagic stroke due to an acute drop in Hgb to 5.7 from 9.5 that occurred concomitantly with [facility] RE[facility]ION[facility] called for a hypotensive episode of BP in the 70s/40s Other hematological lab values at that time: normal platelet count 382, PT 14.3, INR 1.3, APTT >139.0, WBC bump to 12.0 from 8.9 Working diagnosis is that the suspected hemorrhagic conversion is 2/2 heparin drip which was started 2 days prior Patient's current agitation (waxing and waning) could be explained by the hemorrhagic conversion that occurred recently and this may be her new baseline DDx: None Dx: -04/[address] showed more prominent hemorrhage of the posterior left parietal infarct than an earlier head CT obtained on the same day (other areas of hemorrhage in the right frontal lobe remain stable) Rx: -Per neurology recommendations, heparin will be held and aspirin will be avoided for now -Head of bed elevation: 30 degrees or greater -Transfuse pRBCs for Hgb <7 with IV Lasix to avoid TACO from her CHF status -Patient's has been contacted to inform him of patient's condition and goals of care RRx: -Repeat head CT to monitor status of bleeding and recently infarcted areas of the brain -Post-transfusion H&H CARDIO #PFO #Atrial septal aneurysm #Endocarditis - r/o #Tricuspid valve vegetation - r/o Initially, it was believed that patient's multiple embolic events were 2/2 infective endocarditis due to the visualization of a small tricuspid valve vegetation and that patient's acute infarcts were due to emboli traveling through the PFO However, the current hypothesis is that patient's emboli were 2/2 hypercoagulable state in the setting of metastatic malignancy DDx: None Dx: -SYLVIE (03/30/25) confirmed no vegetations. Noted to have atrial aneurysm bulging into left atrium, bubble study done showed PFO Rx: -None RRx: -None PULM No active problems GI #Acute blood loss anemia (suspected to be 2/2 GI bleed 2/2 heparin use) There is concern for a new GI bleed due to an acute drop in Hgb today to 5.7 from 9.5 in the setting of melena and (+) stool occult blood Working diagnosis is that the suspected acute blood loss anemia is 2/2 heparin drip which was started around 2 days ago DDx: worsening hemorrhagic conversion of recent ischemic infarcts Dx: -None Rx: -Heparin will be held and aspirin will be avoided for now as mentioned above -Transfuse pRBCs for Hgb <7 with IV Lasix to avoid TACO from her CHF status -GI has been consulted, recommends conservative management of patient's anemia with transfusions due to no evidence of evelina bleeding (may consider endoscopy if evelina bleeding occurs) RRx: -Post-transfusion H&H NEPHRO #KINJAL on CKD Stage IV likely 2/2 #Ischemic ATN vs. renal emboli DDx: multifactorial etiologies including intravascular depletion, diabetic nephropathy, blood pressure derangements, glomerular diseases, sepsis-induced ATN, rhabdomyolysis, cardiorenal syndrome, crystalline nephropathy associated with oxalate, or atheroembolic disease Dx: -03/26 renal US shows small kidneys with right renal cortical thinning as well as mild right and moderate left parenchymal scar formation Rx: -Planned for HD today -Per Nephrology, patient needs permanent catheter and set-up with outpatient dialysis prior to discharge (may need to consider LTAC if family requests all aggressive measures including outpatient dialysis) RRx: -None #Multiple masses, including pancreatic, hilar, pulmonary, adrenal, renal, uterine Multiple masses spread throughout the body suspicious for metastasis (including locations at pancreatic head, right hilum, right lower lobe of the lung, left adrenal gland, left kidney and uterine fundus) DDx: metastatic malignancy originating from any of the above possible locations Dx: -CA 15-3 antigen WNL (less likely primary breast origin) -CA 19-9 antigen pending (assess if likely origin of metastasis is GI) Rx: -Discontinue plan to pursue biopsy of masses (IR does not think any of them are viable candidates) -Follow up on CA 19-9 antigen RRx: -None URO No active problems HEME #Acute blood loss anemia (suspected to be 2/2 GI bleed 2/2 heparin use) See GI section #Hypercoagulable state Thought to be 2/2 metastatic malignancy as none of the autoimmune work-up has been very illuminating DDx: antiphospholipid syndrome, rheumatoid arthritis, lupus, vasculitis Dx: -Positive for: EFFIE screen -Negative for: rheumatoid factor, anti-CCP, ANCA, anti-proteinase 3, anti-MPO, anti ds-DNA, anti-b2GPI, anti-phosphatidylserine, anti-cardiolipin, complement C3 and C4 Rx: -None RRx: -None ENDO No active problems ID No active problems MSK No active problems SKIN No active problems DVT prophylaxis: None (Bleeding Risk) GI prophylaxis: None (Bleeding Risk) Diet: Carbohydrate Consistent Low Jane: Present Lines: Peripheral IV, Central IV Antibiotics: none CODE STATUS: FULL Reason for ICU care: none, down-graded to floors Patient plan of care was discussed with the attending lead web application developer, Dr. Rodrigues . James Collins, PGY-1 Attending Provider Attestation/Addendum Patient seen and examined with above resident, James Collins, DO. Agree with the findings, assessment, and plan of care as document except for any differences below. Patient remains hemodynamically stable. Continues to require intermittent hemodialysis. Blood transfusion was given with no evidence of gross bleeding at this point. No planned endoscopic evaluation at this time. Patient with significant coagulopathy and procoaguable state despite negative workup. Malignancy seems like a alternate etiology with multiple lesions that potentially may be amenable to biopsy. Resident team will contact IR for determination of most likely site that can be accessed. Patient with significant PFO and will need to reapproach with cardiology about the role of closure at external center. Patient continues to have serial imaging for CT showing hemorrhagic conversion with relative stability though repeat imaging to be done this morning. She does not have any new focal deficits on exam. Yesterday, some concern for lower extremity lack of sensation but seems to have resolved now. Neurology remains involved. Otherwise plan to proceed with HD later today. After which time, patient can be transferred to medicine zuñiga for ongoing management. Total critical care time: I personally spent 40 minutes for review of physiologic parameters, directing plan of care throughout the day, coordination of care with other specialties, and counseling patient's at bedside. This is exclusive of time spent teaching of staff performing separate billable procedures. Patient continues to be at significant risk for further morbidity and mortality warranting close monitoring care only available in the ICU. Critical care services required for acute blood loss anemia, acute renal failure on hemodialysis, multiple embolic CVA with hemorrhagic conversion, undifferentiated hypercoagulable state.
--- NOTE | 2025-04-14 17:11 | PC.CM ---
Addendum entered by Heather Ochoa RN 04/14/25 19:09: 1910 [facility] and [facility] are reviewing patient at this time. I started packet and left it on transfer nurse desk. I did not have time to make a CD. 1909 I received a call from [facility]. They were not able to read the facesheet for policy number. I provide the number and I faxed over patients insurance care. Addendum entered by Heather Ochoa RN 04/14/25 18:52: 1850 I received a call from nurse at [facility] and I gave a detailed report on patient. Addendum entered by Heather Ochoa RN 04/14/25 18:42: 1840 I spoke to [facility] and provided information on patient. 1830 I received a call form [facility] asking for the images pushed over for all the once done on 04/13. I pushed over images. Addendum entered by Heather Ochoa RN 04/14/25 18:18: 1810 I Initiated a transfer with [facility] in [place]. I faxed over information. 1745 I received a call back from Yaneli and she states she was not able to get a hold of Dr. Rand. I called Dr. Rand and I gave him the number to call and speak to Yaneli at [facility]. 1720 I received a call back from Yaneli with [facility]. I provided her with the number to Dr. Thomas Rand. Original Note: 1705 I contacted [facility] and I faxed over information. 1655 I received a call back from Shelley with [facility] and she states they are at capacity and they will decline patient due to capcity. 1645 I spoke to Shelley transfer nurse at [facility]. I faxed over information. Packet started. 1630 I received a referral to transfer patient for neurosurgery for acute infarct n the left frontal parietal region and more prominent hemorrhages in the infarct in the posterior left parietal lobe.
[2025-04-14 17:50] LABS: Hematocrit 24.0 % (36.0-46.0)
[2025-04-14 18:20] LABS: Hemoglobin 7.9 g/dL (12.0-16.0)
--- NOTE | 2025-04-14 19:55 | ESPR_ITS ---
Documentation for date of: 04/14/25 Subjective Subjective Interval history: Hemoglobin hematocrit 7.9 and 24.0 with a platelet count of 57,000 BUN/creatinine 77 and 2.3 Patient evaluated by oncology in edition tumor markers are ordered but AFP and CEA levels are normal Exam Vital Signs Temp Pulse Resp BP Pulse Ox O2 Del Method O2 Flow Rate 97.4 F 85 18 102/61 93 L Room Air 3 04/14/25 17:11 04/14/25 17:35 04/14/25 17:11 04/14/25 17:35 04/14/25 17:11 04/14/25 17:11 04/13/25 22:47 FiO2 40 04/13/25 12:00 Objective Labs 04/14/25 17:10 04/14/25 04:45 Labs: Laboratory Results - last 24 hr 04/02/25 04/13/25 04/14/25 11:00 14:09 00:32 WBC RBC Hgb 8.0 L D Hct 24.0 L MCV MCH MCHC RDW Std Deviation Plt Count Neut % (Auto) Lymph % (Auto) Callaway % (Auto) Eos % (Auto) Baso % (Auto) Neut # (Auto) Lymph # (Auto) Callaway # (Auto) Eos # (Auto) Baso # (Auto) Immature Gran # (Auto) Absolute Nucleated RBC Immature Gran % Nucleated RBC % PT INR APTT Sodium Potassium Chloride Carbon Dioxide Anion Gap BUN Creatinine Estim Creat Clear Calc eGFR BUN/Creatinine Ratio Glucose Calculated Osmolality Calcium Corrected Calcium Phosphorus Magnesium Total Bilirubin AST ALT Alkaline Phosphatase Total Protein Albumin Globulin Albumin/Globulin Ratio CA 15-3 Antigen Cycl Citrul Peptide IgG <16 ANCA Screen NEGATIVE c-ANCA Titer TNP Anti-Proteinase 3 <1.0 p-ANCA Titer TNP Atypical p-ANCA Titer TNP Anti-Myeloperoxidase <1.0 Complement C3 142 Complement C4c 26 HCV RNA Quant (PCR) <15 NOT DETECTED HCV RNA (PCR) IU log10 <1.18 NOT DETECTED Blood Type AB Positive Antibody Screen NEGATIVE Crossmatch See Detail Blood Bank Wristband ID Yes 04/14/25 04/14/25 04/14/25 04:45 08:27 17:10 WBC 13.7 H RBC 2.70 L Hgb 7.8 L 7.9 L 7.9 L Hct 23.6 L 23.7 L 24.0 L MCV 87 MCH 28.9 MCHC 33.1 RDW Std Deviation 50.9 H Plt Count 357 Neut % (Auto) 70 Lymph % (Auto) 18 Callaway % (Auto) 7 Eos % (Auto) 1 Baso % (Auto) 0 Neut # (Auto) 9.6 H Lymph # (Auto) 2.5 Callaway # (Auto) 1.0 H Eos # (Auto) 0.1 Baso # (Auto) 0.0 Immature Gran # (Auto) 0.58 H Absolute Nucleated RBC 0.00 Immature Gran % 4 H Nucleated RBC % 0 PT 13.0 H INR 1.2 APTT 23.8 D Sodium 140 Potassium 4.0 Chloride 102 Carbon Dioxide 24.3 Anion Gap 14 BUN 77 H Creatinine 2.3 H Estim Creat Clear Calc 26.2 L eGFR 24 L BUN/Creatinine Ratio 33 H Glucose 185 H Calculated Osmolality 307 H Calcium 9.0 Corrected Calcium 9.7 Phosphorus 3.6 Magnesium 1.4 L Total Bilirubin 0.6 AST 16 ALT 8 L Alkaline Phosphatase 50 Total Protein 5.6 L Albumin 3.1 L Globulin 2.5 Albumin/Globulin Ratio 1.2 CA 15-3 Antigen 7.6 Cycl Citrul Peptide IgG ANCA Screen c-ANCA Titer Anti-Proteinase 3 p-ANCA Titer Atypical p-ANCA Titer Anti-Myeloperoxidase Complement C3 Complement C4c HCV RNA Quant (PCR) HCV RNA (PCR) IU log10 Blood Type Antibody Screen Crossmatch Blood Bank Wristband ID Impressions Impression: Anemia multifactorial FOBT positive Relatively stable hemoglobin hematocrit Oncology on board for possible malignancy Continue to monitor CBC ABG Interpretation ABG results: 03/26/25 03/26/25 03/26/25 11:18 11:44 16:23 ABG pH 7.27 L Cancelled ABG pCO2 40 Cancelled ABG pO2 146 H Cancelled ABG HCO3 18 L Cancelled ABG O2 Saturation 100 H Cancelled ABG Base Excess -8 L Cancelled VBG pH 7.19 L VBG pCO2 48 VBG pO2 37 VBG Base Excess -10 L 03/26/25 03/27/25 03/27/25 18:43 00:17 03:42 ABG pH 7.16 L* D 7.24 L Cancelled ABG pCO2 58 H D 44 D Cancelled ABG pO2 68 L D 80 L Cancelled ABG HCO3 21 19 L Cancelled ABG O2 Saturation 90 L 96 Cancelled ABG Base Excess -9 L -8 L Cancelled VBG pH VBG pCO2 VBG pO2 VBG Base Excess 03/27/25 03/27/25 03/27/25 04:04 07:55 18:48 ABG pH 7.26 L 7.30 L ABG pCO2 43 37 ABG pO2 83 174 H D ABG HCO3 19 L 18 L ABG O2 Saturation 97 101 H ABG Base Excess -7 L -8 L VBG pH 7.21 L 7.31 L VBG pCO2 49 48 VBG pO2 54 52 VBG Base Excess -8 L -2 03/27/25 03/28/25 03/28/25 19:07 04:06 13:37 ABG pH 7.36 7.38 7.41 ABG pCO2 41 45 44 ABG pO2 79 L D 73 L 105 D ABG HCO3 23 27 H 27 H ABG O2 Saturation 97 96 99 H ABG Base Excess -2 1 2 VBG pH VBG pCO2 VBG pO2 VBG Base Excess 03/29/25 03/30/25 03/31/25 04:45 04:50 04:40 ABG pH 7.38 7.42 7.39 ABG pCO2 45 40 41 ABG pO2 72 L D 66 L 63 L ABG HCO3 27 H 26 25 ABG O2 Saturation 98 93 92 ABG Base Excess 1 2 0 VBG pH VBG pCO2 VBG pO2 VBG Base Excess 03/31/25 04/13/25 17:30 13:33 ABG pH 7.39 ABG pCO2 36 ABG pO2 80 L ABG HCO3 21 ABG O2 Saturation 96 ABG Base Excess -3 VBG pH 7.49 VBG pCO2 32 L VBG pO2 68 H VBG Base Excess 1 Assessment & Plan A&P Narrative A#1. CVA hemorrhagic type right frontal and left parietal region, multiple comorbidities, now extubated remains in ICU scheduled for hemodialysis. A#2. Several lesions noted in chest and abdomen which suggest possible malignancy. This could be worked up once patient out of hospital and more stable. A#3. Noted patient to have normal AFP and CEA on prior blood draws. Recommend additional tumor markers CA 19?9 CA 15-3 and CA125. Time Spent With Patient Time: Total time spent is greater than 50% in coordination of care (as documented) at patient's floor/unit and/or counseling patient:
--- NOTE | 2025-04-14 20:13 | PC.NURSE ---
Received a call from [facility] transfer center c/o Jaimie and was informed that per Dr. Tariq (Neuro), pt does not need surgical intervention at this time for pt has no shift, bleed is very small and just need further medical work up. Request cancelled. HAILE Mccoy made aware of this conversation with [facility]
[2025-04-14] MEDS: INSULIN DEGLUDEC 5 UNIT/0.05 ML (PER 5 UNITS) 24 UNIT SC (21:20)
[2025-04-14] MEDS: INSULIN LISPRO (AdmeLOG) 1 UNIT/0.01 ML UNIT SC (21:22)
[2025-04-14] MEDS: ATORVASTATIN CALCIUM 20 MG TABLET 80 MG PO (21:24)
--- NOTE | 2025-04-14 21:35 | PD.RESDS ---
Planned Discharge Date 04/14/25 DS: Providers Provider Date of admission: 03/26/25 18:59 Primary care physician: Physician No Primary/Family Admitting Provider: Luann Grady MD Attending Provider on Admission: Hayley Dubois MD Consults: 03/26/25 12:47 Consult to Neurology / Tele-Neurology Routine Comment: Consulting Provider: [employer] 03/27/25 09:42 Consult to Nephrology Routine Comment: Acute kidney injury Consulting Provider: Jr Zelaya 03/27/25 18:32 Consult to Cardiology Routine Comment: Consulting Provider: Michael Nayak 03/27/25 19:26 Consult to Neurology / Tele-Neurology Routine Comment: Consulting Provider: Jose Oliver 03/27/25 19:37 Referral Wound Care Routine Comment: mult. areas of sdti, ulceration to right lower leg 03/31/25 17:23 Consult to Hematology Routine Comment: Suspicion of hypercoagulable state Consulting Provider: Malik Krishna 03/31/25 18:11 Referral Speech Therapy Routine Comment: 04/01/25 08:27 Referral Physical Therapy Routine Comment: Physician Instructions: 04/02/25 00:53 Referral Wound Care Routine Comment: 04/02/25 10:48 Referral Nutritional Services Routine Comment: Wounds 04/03/25 11:50 Referral Wound Care Routine Comment: 04/03/25 21:13 Consult to General Surgery Stat Comment: incarcerated umbilical hernia Consulting Provider: Ravi Wood 04/07/25 06:08 Referral Discharge Planning Routine Comment: Outpatient dialysis unit 04/09/25 06:45 Referral Miriam Routine Comment: 04/11/25 13:42 Consult to Oncology Stat Comment: Multiple masses @uterus, adrenals, lung, pancreas Consulting Provider: Alvarado Ogden 04/13/25 13:07 Consult to Gastroenterology Routine Comment: Consulting Provider: Constanza Zamora 04/14/25 16:23 Referral - Sharepoint Application Developer Stat Service Needed for Transfer: Neurosurgery Addl Comments:: Intervention for enlarging acute infarct in the left frontal parietal region and more prominent hemorrhages in the infarct in the posterior left parietal lobe. Impending herniation vs midline shift. Attending Provider on DC: Jose Sexton MD Discharging Provider: Jose Sexton MD DS: Diagnosis Problem List Completed Was Problem List Reviewed/Reconciled?: Yes Hospital Course Hospital Course Hospital course: Patient is a 59-year-old female with past medical history of diabetes mellitus, hypertension, asthma, chronic right leg ulcer who was brought to the ED due to altered mental starts. Patient was found unresponsive by her family members with pinpoint pupils. Patient was down for at least 7 hours. She received Narcan by EMS with some improvement of mentation. Upon evaluation in the ED, patient had a GCS of less than 8 and was subsequently intubated for airway protection. She was also noted to have a temperature of 101.3, respiratory rate of 35, blood pressure 107/78 heart rate of 94 at the time of presentation. Labs done at that time showed elevated WBC 13.1, creatinine 2.8, bicarb 18.1, lactate 4.7, glucose 550, AST 146, ALT 61, creatinine kinase 9752, procalcitonin 43.23. UDS was noted to be positive for marijuana and methamphetamine. Head CT was done showing 2 acute embolic CVAs. An MRI was also done showing multiple embolic type foci of restricted diffusion in bilateral occipital lobes, bilateral frontal and bilateral parietal lobes. Patient was subsequently admitted to the ICU for acute hypoxic respiratory failure, acute toxic metabolic encephalopathy and rhabdomyolysis. Due to KINJAL on CKD due to multiorgan failure and septic shock, patient was started on CRRT over the course of her ICU stay. An echocardiogram was done on during which patient was found to have a mild apical and global hypokinesis, LVEF of 40 to 45% with tricuspid valve vegetations suggestive of endocarditis. A CTA was also done due to patient's increasing negative FiO2 on the ventilator on 03/28/2025 during which she was found to have multiple bilateral PEs and moving mainly the right lower lobe pulmonary artery and left upper lobe. A venous Doppler also showed extensive nonocclusive DVT in the left lower extremity extending up to the common femoral vein. Due to the concern for hemorrhagic transformation of the patient's embolic CVA, anticoagulation was held. Moreover, the suspicion for infective endocarditis as the cause for the multiple emboli would not indicate for anticoagulation. A repeat head CT was done during 03/1820 which did show hemorrhagic transformation with interval multiple areas of subarachnoid hemorrhage involving the right frontal convexity, left frontal parietal convexity in the right frontal sulci. A SYLVIE had been done as well on 03/30/2025 during which no vegetations were seen, but patient had a atrial septal aneurysm and PFO. Blood cultures have been positive for Staph hominis only 1 bottle, more likely secondary to contamination. A urine culture was done showing pansensitive E. coli. Patient had initially been on vancomycin and Zosyn since admission and switched to Rocephin current 2 g IV daily since 03/30. Transfer had been initially initiated on 03/30 for higher level of care due to the concern of multiple embolic strokes in the setting of PFO. However, cardiothoracic surgery at [facility] had low suspicion for embolic stroke caused by small PFO and recommended hypercoagulable workup before considering PFO closure. An IVC filter was placed on 03/31/2025. CT a of chest abdomen pelvis was also done that day showing no left atrial thrombus, PE in upper and lower pulmonary artery branches,pneumonia versus infarct in the right upper lobe and both bases and large splenic infarct with thrombus in upper lobe splenic arteries. Patient was extubated on 03/31. Hypercoagulable workup has been initiated. Skin biopsy was done at bedside of livedo reticularis. Patient was downgraded from ICU post extubation. She appears to have a right-sided neglect on exam. She does require some prompting with commands. Left right leg ulcer appears to be healing and no drainage noted. Left big toe and fifth digit appears to be necrotic. Patient cannot recall why she came to the hospital. She appears to be somewhat confused but is A and O x 3. Gross sensation is intact. Multiple rapids were called on patient after downgrade due to agitation and confusion. She was started on olanzapine PRN which controlled symptoms. Additionally nursing staff reported that patient had large bowel movement. Repeat H&H testing showed significant acute drop in hemoglobin from around baseline of 8?9 to ~5.6. On 04/13 patient appeared to be more lethargic from baseline. There was concern for airway protection and need for possible massive transfusion therefore upgraded to ICU. Gastroenterology was consulted however deferred workup for GI bleed including EGD due to unstable underlying condition. She was transfused with a total of 2 units PRBC while in the ICU. No need for intubation as patient was returning back to her baseline but still very agitated. Repeat CT head again showed worsening hemorrhage with new lesions in frontal lobe. All anticoagulants/blood thinners were held including her heparin drip. Patient has an A1c of 13.6. And patient states that she only takes metformin outpatient. She also reported history of hypertension with which she takes medication for. Nephrology was consulted for worsening kidney function. She had one HD sesssion while in the ICU. Radiation oncology, Dr. Ogden was consulted and commended CA 19?9 and CA 15-3, also said no acute intervention at this time but recommended patient to follow-up outpatient for PET scan. Interventional radiologist was also curb sided. Stated that none of the patient's masses, fluid in the lung, hilar and adrenal were large enough to biopsy. Goals of care discussion with patient's , Scottie was. Informed about patient's poor prognosis due to high risk of bleeding and further worsening of hemorrhagic stroke with further anticoagulation. He was informed of high risks of bleeding and no further anticoagulation at this point. Also discussed difficulties with outpatient hemodialysis with regards to patient's being able to sit in a chair to 3 times a week. Family requested to continue full medical care at this time. The patient's management plan was discussed with my attending physician Dr. Sexton. Amie Boyce MD, PGY-2 Time spent discussing smoking cessation with patient: more than 10 minutes Status at Discharge Overall status at discharge: patient is not back to baseline Time Spent with Patient Time attestation: Total time spent providing and/or coordinating discharge services: Time spent: Greater than 30 minutes Exam Vital Signs Temp Pulse Resp BP Pulse Ox O2 Del Method O2 Flow Rate 97.7 F 66 18 115/64 90 L Room Air 3 04/14/25 20:00 04/14/25 21:27 04/14/25 20:00 04/14/25 21:27 04/14/25 20:00 04/14/25 20:00 04/13/25 22:47 FiO2 40 04/13/25 12:00 Narrative Exam Physical Exam: General: Alert, no acute distress. Skin: Pale-appearing. Cool skin. Ulcer of the L big toe over the proximal phalange with blackening of the distal portions of that toe. Head: Normocephalic, atraumatic. Eye: Slightly icteric. Bilateral corneal arcus noted. EOMI and PERRLA. Throat: Oral mucosa moist. Cardiovascular: Regular rate and rhythm, no murmur, normal peripheral perfusion, no edema. Respiratory: Lungs are clear to auscultation, respirations non labored, no crackles, no wheezing. Gastrointestinal: Soft, mildly distended, mild discomfort to palpation throughout. No guarding or rebound tenderness. Temporary left femoral catheter in place. Psychiatric: Confused and agitated (calling for mom to help her and screaming). Neuro: Cannot assess due to patient's continued confusion and agitation. Discharge Plan Plan Patient Disposition: Xfer Other Facility Pt Being Transferred to: [facility] Service Needed for Transfer: Neurosurgery Patient condition on transfer: Stable Prescriptions/Referrals Prescriptions/Med Rec: No Action metformin 500 mg tablet 500 mg PO DAILY Patient Comments: take 1 tablet by mouth once daily Referrals: No Primary/Family,Physician [Primary Care Provider] - Patient/Caregiver Discharge Instructions Education Materials: Chest and Lung Problems, Anatomy of the Brain Print Language: Wolof Stand Alone Forms: Rosa Elena Award Info., Patient Portal Info Letter Discharge Order Discharge Orders: Discharge (Routine); Ordered 04/14/25 Ordered By: Wandy Dasilva Quality Discharge Quality Measures VTE prophylaxis Attestestation MD Attestation I have examined the patient, reviewed labs and imaging findings, discussed the case with the resident(s), and reviewed entered orders. I agree with the plan of care as outlined in this note. Time Spent: [address] Darshan MD
--- NOTE | 2025-04-14 21:43 | PC.NURSE ---
Received a call from transfer center [facility], talked to Abelino - transfer RN, states patient is accepted. Dr Carole Lozoya is the accepting MD. Call back # is [phone] ext [phone], Neuro ICU, 3rd floor, Rm 373.
--- NOTE | 2025-04-14 21:43 | PC.NURSE ---
Antonio Oneil and palletizer Agnes informed of transfer.
--- NOTE | 2025-04-14 22:16 | PC.NURSE ---
Informed Scottie (POC-) re transfer to [facility] for neurosurgeon. Acknowledgement for transfer signed via phone , witnessed by HAILE Mccoy.
--- NOTE | 2025-04-14 22:27 | PC.NURSE ---
2223 Call made to [facility], report given to receiving HAILE Carter.
[2025-04-14 23:02] LABS: Hematocrit 23.0 % (36.0-46.0)
[2025-04-14 23:10] LABS: Hemoglobin 7.4 g/dL (12.0-16.0)
--- NOTE | 2025-04-14 23:33 | PC.NURSE ---
Arranged for transfortation via [facility], estimated time of transfort is 129. Patient updated. [facility] transfer center updated.
[2025-04-15] VITALS: BP 111/63; PULSE 90; RESP 20; TEMP 36.6; O2SAT 96
--- NOTE | 2025-04-15 00:15 | PC.NURSE ---
[facility] in, report given, patient for transfer now. Follow up call to transfer center [facility] made, updated of patient time of arrival.
--- NOTE | 2025-04-15 08:18 | CHAP ---
Patient was visited by a Spiritual Care Volunteer on 04/14/2025 between 0900 and 1100 and received comfort, encouragement and/or prayer.
[2025-04-20 08:49] LABS: CA 19-9 Antigen* 37 U/mL (<34)
== END 2025-04-15 00:15 | disposition other institution (70) | DRG 720 ==
LOC: SERX 15:42 → SERHOLD 19:23 → S2SX 21:17 → S2NX 04-02 15:55 → S3NX 04-07 22:20 → S2SX 04-14 08:48 → S3NX 04-14 08:48 → S2SX 04-14 08:49 → S3NX 04-14 16:32
PROVIDERS: Internal Medicine; Radiology Diagnostic Radiology; Specialist; Student in an Organized Health Care Education/Training Program; Admitting Provider Internal Medicine; Emergency Provider Family Medicine; Visit Provider Internal Medicine
DX: A41.51 Sepsis due to Escherichia coli [E. coli] (principal); I63.40 Cerebral infarction due to embolism of unspecified cerebral artery; I63.89 Other cerebral infarction; J45.909 Unspecified asthma, uncomplicated; F11.10 Opioid abuse, uncomplicated; T50.901A Poisoning by unspecified drugs, medicaments and biological substances, accidental (unintentional), initial encounter; J96.01 Acute respiratory failure with hypoxia; R74.01 Elevation of levels of liver transaminase levels; N17.9 Acute kidney failure, unspecified; R65.20 Severe sepsis without septic shock; Z78.1 Physical restraint status; B19.20 Unspecified viral hepatitis C without hepatic coma; G93.41 Metabolic encephalopathy; D62 Acute posthemorrhagic anemia; F17.200 Nicotine dependence, unspecified, uncomplicated; F15.10 Other stimulant abuse, uncomplicated; F19.129 Other psychoactive substance abuse with intoxication, unspecified; I13.0 Hypertensive heart and chronic kidney disease with heart failure and stage 1 through stage 4 chronic kidney disease, or unspecified chronic kidney disease; I25.3 Aneurysm of heart; I26.99 Other pulmonary embolism without acute cor pulmonale; I48.0 Paroxysmal atrial fibrillation; I50.22 Chronic systolic (congestive) heart failure; K42.0 Umbilical hernia with obstruction, without gangrene; K72.00 Acute and subacute hepatic failure without coma; K74.60 Unspecified cirrhosis of liver; J15.0 Pneumonia due to Klebsiella pneumoniae; J15.4 Pneumonia due to other streptococci; K80.20 Calculus of gallbladder without cholecystitis without obstruction; L97.919 Non-pressure chronic ulcer of unspecified part of right lower leg with unspecified severity; M62.82 Rhabdomyolysis; N18.4 Chronic kidney disease, stage 4 (severe); N27.1 Small kidney, bilateral; N39.0 Urinary tract infection, site not specified; R65.21 Severe sepsis with septic shock; Y95 Nosocomial condition; Z79.02 Long term (current) use of antithrombotics/antiplatelets; Z79.4 Long term (current) use of insulin; Z79.82 Long term (current) use of aspirin; Z79.899 Other long term (current) drug therapy; Z99.2 Dependence on renal dialysis; Z86.79 Personal history of other diseases of the circulatory system; D68.62 Lupus anticoagulant syndrome; D73.5 Infarction of spleen; E11.22 Type 2 diabetes mellitus with diabetic chronic kidney disease; E11.65 Type 2 diabetes mellitus with hyperglycemia; E27.9 Disorder of adrenal gland, unspecified; E83.39 Other disorders of phosphorus metabolism; E87.29 Other acidosis; H53.461 Homonymous bilateral field defects, right side; I60.9 Nontraumatic subarachnoid hemorrhage, unspecified; I61.1 Nontraumatic intracerebral hemorrhage in hemisphere, cortical; I82.412 Acute embolism and thrombosis of left femoral vein; L98.5 Mucinosis of the skin; N28.0 Ischemia and infarction of kidney; Q21.12 Patent foramen ovale; N85.4 Malposition of uterus; R41.4 Neurologic neglect syndrome
CPT/HCPCS: 36415; 36600; 70450; 70544; 70551; 71045; 71250; 71275; 73590; 74018; 74174; 74176; 76705; 76770; 76937; 77001; 80048; 80053; 80061; 80069; 80074; 80202; 80307; 81001; 81240; 81241; 82010; 82105; 82270; 82378; 82436; 82550; 82570; 82595; 82607; 82803; 83036; 83605; 83735; 83880; 84100; 84133; 84145; 84155; 84156; 84165; 84300; 84443; 84484; 85014; 85018; 85025; 85300; 85301; 85302; 85303; 85305; 85306; 85598; 85610; 85613; 85652; 85670; 85730; 86021; 86036; 86038; 86039; 86140; 86146; 86147; 86148; 86160; 86200; 86225; 86300; 86301; 86331; 86430; 86580; 86635; 86703; 86780; 86850; 86900; 86901; 86923; 87040; 87077; 87081; 87086; 87186; 87205; 87400; 87502; 87811; 89220; 92526; 92610; 93005; 93225; 93306; 93312; 93880; 93922; 93925; 93970; 94002; 94003; 94640; 94660; 95816; 96365; 96366; 96372; 96375; 97163; 99152; 99284; A4216; A4649; A9270; C1769; C1880; C1894; J0131; J0171; J0360; J0689; J0692; J0696; J1171; J1200; J1250; J1630; J1642; J1643; J1644; J1815; J1938; J2250; J2270; J2312; J2358; J2470; J2543; J2598; J2704; J3010; J3370; J3372; J3373; J3475; J3490; J7030; J7050; J7120; J7999; P9016; P9047; Q5105; Q5106; Q9967; J1920; J2359

== ENCOUNTER 2025-04-21 00:05 | Inpatient (IN) | payer MEDICAID, SELFPAY ==
--- NOTE | 2025-04-21 03:07 | PD.RESHP ---
Documentation for date of: 04/21/25 [facility] History of Present Illness History of present illness: This is a 59-year-old female with a history of diabetes mellitus (A1c 13.6), hypertension, asthma, and chronic right leg ulcer who presented at [facility] on 03/26/2025 after being found unresponsive at home with pinpoint pupils. She was down for approximately 7 hours and responded partially to NARCAN given by EMS. On ED arrival, she had a GCS <8 and required intubation. Vitals were notable for fever to 101.3, RR 35, BP 107/78. Labs revealed leukocytosis (WBC 13.1), KINJAL (Cr 2.8), acidosis (bicarb 18), lactic acidosis (lactate 4.7), hyperglycemia (glucose 550), transaminitis (AST 146, ALT 61), markedly elevated CK (9752), and high procalcitonin (43.23). UDS was positive for methamphetamine and marijuana. Imaging showed multiple embolic infarcts on head CT and MRI involving bilateral occipital, frontal, and parietal lobes. She was admitted to the ICU for acute hypoxic respiratory failure, toxic-metabolic encephalopathy, rhabdomyolysis, and multiorgan failure. Septic shock and KINJAL on CKD progressed, requiring initiation of CRRT. TTE on 03/26 showed mild global hypokinesis with EF 40?45% and tricuspid valve vegetations suggestive of endocarditis. CTA on 03/28 revealed bilateral PEs and extensive non-occlusive DVT in the LLE. Due to multiple embolic CVAs and concern for hemorrhagic conversion, anticoagulation was withheld. Head CT on 03/30 confirmed hemorrhagic transformation with subarachnoid hemorrhage. SYLVIE on 03/30 showed no vegetations but did reveal atrial septal aneurysm and PFO. Blood cultures grew Staph hominis in one bottle (likely contaminant); urine culture grew pansensitive E. coli. Antibiotics were switched from VANCOMYCIN and ZOSYN to CEFTRIAXONE on 03/30. She was considered for transfer for PFO evaluation, but [facility] CT surgery found the PFO unlikely to be the embolic source and recommended hypercoagulable workup prior to considering closure. An IVC filter was placed on 03/31. CT chest/abd/pelvis showed PE, pneumonia or infarct, and a large splenic infarct. She was extubated on 03/31 and downgraded from ICU. Skin biopsy of livedo reticularis was performed. She had persistent right-sided neglect and confusion with intermittent agitation managed with PRN OLANZAPINE. Right leg ulcer was healing; however, left great toe and fifth digit appeared necrotic. On 04/13, patient became more lethargic and had acute drop in hemoglobin to 5.6 from baseline 8?9. She was upgraded to ICU for concern of GI bleeding and possible need for intubation. She received 2 units PRBC. No intubation was needed. Repeat CT head showed worsening intracranial hemorrhage. All anticoagulation was held, including HEPARIN drip. Gastroenterology deferred endoscopy due to clinical instability. She had one HD session in ICU. Radiation oncology and IR were consulted for possible malignancy due to imaging findings and elevated tumor markers (CA 19-9 and CA 15-3). No biopsyable lesion was identified. PET scan was recommended outpatient. Goals of care discussion was held with . Family was informed of poor prognosis given extensive embolic strokes, hemorrhagic conversion, and inability to anticoagulate. Due to high bleeding risk and overall clinical instability, further anticoagulation was not pursued. Family elected to continue full medical care at this time. In light of the family decision and hemorrhagic conversion, transfer was initiated on 04/14/2025 to [facility] for neurosurgery. She was admitted to ICU for close monitoring with neurology on board with serial head CT to monitor for brain bleed. No surgical intervention was performed and she was continued on supportive care. Additionally, she was found to have DVT of deep femoral and superficial femoral veins on imaging. GCS remained around 14. Patient made hemodynamically stable. Most recent CT showed improvement in hemorrhagic infarction. She was downgraded to telemetry and subsequently transferred to [facility]. No further hypercoagulable workup was done at external hospital. On exam, she is alert, was able to tell me her birthday but did not recognize her last name or location or month or date or place. Otherwise she appeared comfortable and had no neurological deficits on exam. She denied headaches, visual changes, chest pain, shortness of breath, GI or urinary symptoms. Past medical history: As stated above Medications: pending med recon Allergies: NKDA Past surgical history: Unable to obtain at this time Past social history: Active smoker [id number] history, remote heroin abuse, methamphetamine use, marijuana use Exam Narrative Exam Skin: Ulcer of the L big toe over the proximal phalange with blackening of the distal portions of that toe. Right lower extremity edema below the ankle. Head: Normocephalic, atraumatic. Eye: Slightly icteric. Bilateral corneal arcus noted. EOMI and PERRLA. Throat: Oral mucosa moist. Cardiovascular: Regular rate and rhythm, no murmur, normal peripheral perfusion, no edema. Respiratory: Lungs are clear to auscultation, respirations non labored, no crackles, no wheezing. Gastrointestinal: Soft, mildly distended, mild discomfort to palpation throughout. No guarding or rebound tenderness. Temporary left femoral catheter in place. Psychiatric: Confused and agitated (calling for mom to help her and screaming). Results: Labs 04/25/25 05:33 04/25/25 05:33 Quality Measures Quality Measures VTE prophylaxis Medications Home Medications and Allergies Allergies Allergy/AdvReac Type Severity Reaction Status Date / Time No Known Allergies Allergy Verified 03/26/25 11:03 Assessment & Plan Plan 59-year-old female with diabetes (A1c 13.6), hypertension, asthma, and substance use was found unresponsive at home on 03/26/25, with GCS <8 and positive UDS for methamphetamine. Imaging revealed multiple embolic strokes, bilateral PEs, DVT, and splenic infarct. ICU course was complicated by septic shock, KINJAL requiring CRRT, rhabdomyolysis, and hemorrhagic transformation of strokes. Anticoagulation was withheld due to bleeding risk. She later developed a GI bleed requiring transfusion. After stabilization, she was transferred to [place] for neurosurgical evaluation, then to [place]. Currently alert but disoriented, without focal deficits. Embolic CVAs with Hemorrhagic Conversion Multiple embolic infarcts seen on MRI (bilateral occipital, frontal, parietal lobes). Later developed hemorrhagic transformation with SAH and new lesions on CT. ? No anticoagulation per neurology and neurosurgery recommendations ? Serial neuro exams and CT imaging as indicated ? Supportive care only; no surgical intervention indicated ? Rehabilitation needs assessment post-acute phase Acute Kidney Injury on CKD - CRRT / HD (resovled) Required CRRT, currently renal function stable with CR 1.2, GFR 52 ? Renally dose meds, avoid overdiuresis and NEPHROTOXINS ? Daily CMP DVT/PEs and Hypercoagulable State (PFO + ASA) Bilateral PEs and extensive LLE DVT. TTE showed vegetations; SYLVIE negative for IE but showed PFO and atrial septal aneurysm. Anticoagulation withheld due to high bleed risk. ? No anticoagulation per neurology and ID ? IVC filter placed 03/31 ? Hypercoagulable workup initiated, needs outpatient follow-up ? Avoid antiplatelet/anticoagulants until bleeding risk is reassessed Hemorrhagic Conversion + GI Bleed (Hb dropped to 5.6) ON previosu admission, had acute drop in Hgb from 8?[address] showed worsening brain hemorrhage. Likely UGIB; endoscopy deferred due to instability. Hgb stable at 8.7 ? Monitor CBC and hemodynamic stability ? GI follow-up if clinically stable ? Avoid anticoagulants and NSAIDs Diabetic Management / Hyperglycemia (A1c 13.6) Glucose 550 on last admission. Likely poorly controlled diabetes; only reported taking METFORMIN at home. Glucose 99 currently. ? INSULIN sliding scale ? Accu-Cheks Chronic Ulcers / Necrotic Toes Chronic right leg ulcer improving. New necrosis of left great toe and fifth digit. ? Wound care consultation Possible Underlying Malignancy CT showed lung and splenic findings concerning for infarct vs malignancy. Elevated CA 19-9 and CA 15-3. IR and oncology deferred biopsy due to lack of accessible lesion. ? PET scan recommended outpatient ? Monitor for progression ? Follow up with oncology outpatient Health maintenance Diet: Regular Diet (pending swallow eval) GI prophylaxis: PROTONIX DVT prophylaxis: Contraindicated, SCD Antibiotics: Not indicated CODE STATUS: Full code Disposition: Transfer back for hemorrhagic stroke Case was discussed with attending physician, Dr. Salas. Wandy Dasilva, PGY II This document was transcribed using voice recognition technology. Minor inaccuracies may be present. Attending Provider Attestation/Addendum After examination of the patient and review of the clinical data I feel that this patient needs admission to the hospital for further treatment/evaluation. Plan of care discussed with patient and is in agreement. I Arcadio Salas MD, attest that I was physically present for ramos portions of evaluation, and examined patient, labs and imagings and plan of care were discussed with IM residents team, and I agree with the findings and plans documented above.
[2025-04-21 03:43] LABS: Basophils # (Auto) 0.0 Thou/mm3 (0.0-0.2); Basophils % (Auto) 1 % (0-2.5); Eosinophils # (Auto) 0.2 Thou/mm3 (0.0-0.5); Eosinophils % (Auto) 3 % (0-10); Hematocrit 28.4 % (36.0-46.0); Immature Granulocytes Auto 0.11 Thou/mm3 (0.00-0.00); Lymphocytes # (Auto) 2.5 Thou/mm3 (1.0-4.8); Lymphocytes % (Auto) 29 % (10-50); Mean Corpuscular HGB Conc 30.6 g/dl (31.0-37.0); Mean Corpuscular Hemoglobin 29.4 pg (25.0-35.0); Mean Corpuscular Volume 96 fL (80-100); Monocytes # (Auto) 0.8 Thou/mm3 (0.0-0.8); Monocytes % (Auto) 9 % (0-12); Neutrophils # (Auto) 5.0 Thou/mm3 (1.8-7.7); Neutrophils % (Auto) 58 % (37-80); Nucleated Red Blood Cell # 0.00 Thou/mm3 (0.00-0.00); Nucleated Red Blood Cell % 0 /100 WBC (0); Platelet Count 204 Thou/mm3 (140-440); RDW Standard Deviation 62.0 fL (36.4-46.3); Red Blood Count 2.96 Miln/mm3 (4.00-5.20); White Blood Count 8.6 Thou/mm3 (3.6-11.0)
[2025-04-21 04:05] LABS: Hemoglobin 8.7 g/dL (12.0-16.0)
[2025-04-21 04:06] LABS: INR 1.2 (0.9-1.3); Partial Thromboplastin Time 21.2 Seconds (22.0-36.0); Prothrombin Time 13.3 Seconds (9.0-12.2)
[2025-04-21 04:09] LABS: Alanine Aminotransferase 13 U/L (10-49); Albumin, Serum 3.4 gm/dL (3.5-5.0); Albumin/Globulin Ratio 1.3 (1.2-2.2); Alkaline Phosphatase 70 U/L (46-116); Anion Gap 14 (7-16); Aspartate Amino Transferase 25 U/L (0-34); BUN/Creatinine Ratio 14 Ratio (12-20); Bilirubin,Total 1.2 mg/dL (0.3-1.2); Blood Urea Nitrogen 17 mg/dL (9-23); Calcium 9.0 mg/dL (8.3-10.6); Calcium (Corrected) 9.5 mg/dL (8.5-10.1); Carbon Dioxide 17.7 mMol/L (20.0-31.0); Chloride 113 mMol/L (98-107); Creatinine (Component) 1.2 mg/dL (0.6-1.3); Globulin 2.6 gm/dL (2.3-3.5); Glucose 99 mg/dL (74-106); Magnesium 1.6 mg/dL (1.6-2.6); Osmolality,Calculated 290 (275-295); Phosphorous 4.7 mg/dL (2.4-5.1); Potassium 4.0 mMol/L (3.4-5.1); Sodium 145 mMol/L (136-145); Total Protein 6.0 gm/dL (5.7-8.2); eGFR 52 See Note
--- NOTE | 2025-04-21 06:41 | PC.NURSE ---
Made Made MD aware patient has been removing telemetry box multiple times patient self removed midline to right upper arm . orders for 24 hour medical restraints to be placed. MD Dowell reminded patient has no IV access at this time
[2025-04-21 07:46] VITALS: BMI 33.2
[2025-04-21 08:00] VITALS: BP 146/80; PULSE 86; PULSE 91; RESP 14; TEMP 36.1; O2SAT 95
--- NOTE | 2025-04-21 08:26 | PC.CM ---
Addendum entered by Heather Ochoa RN 04/21/25 15:50: I received the discharge summary from [facility]. I placed it in patient's chart and I notified Dr. Garcia and bed side nurse. Original Note: I received a call from Dr. Garcia asking if I could get the discharge summary from [facility]. I called [facility] and I spoke to Melvin. He states he will fax me the discharge summary.
[2025-04-21] MEDS: Magnesium Sulfate 4 GM Ivpb 4 GM/50 ML BAG IV (09:45)
--- NOTE | 2025-04-21 09:45 | ESPR_ITS ---
<Statement entered by Albino Garcia MD - 04/21/25 14:24> Patient seen and assessed in hospital bed, awake and answering questions appropriately; however, later received call from nurse stating that patient has been agitated. Plan is to initiate Seroquel 25 mg at bedtime; additionally, paliperidone IV was given as the patient experienced acute agitation. Both neurology and hematology are on board regarding patient's recurrent embolic strokes and at this time since the patient developed hemorrhagic conversion the plan is to omit using anticoagulation. Will follow-up on recommendations from both neurology and hematology. Patient has an IVC filter which was placed on 03/31 and has a PFO which per cardiology recommendations will remain. Patient should also be worked up for coronary artery disease as she has a left lower extremity first digit necrotic ulcer likely secondary to peripheral artery disease. I have personally seen and examined the patient. I agree with the resident's assessment and plan as documented below. Albino Garcia DO PGY-2 Internal Medicine - GME Documentation for date of: 04/21/25 Subjective Subjective Interval history: Overnight events: No acute events overnight. Patient was transferred back to [facility] from [facility] in [place]. Patient was seen and examined at bedside. AM vitals and labs reviewed. Patient appeared calm and cooperative during examination. Not in any acute distress. Discussed with nursing staff, who noted that the patient was pulling at IV lines overnight. Noted pain over left leg with necrotic tissue. Patient required multiple doses of haloperidol due to agitation throughout the day today. Seroquel 25 mg nightly ordered for agitation. Neurology and heme-onc consulted for additional recommendations on if patient should be discharged with any anticoagulation given hypercoagulable state yet history of cerebral hemorrhage and GI bleed. Review of systems otherwise negative except for what is mentioned above. Exam Vital Signs Temp Pulse Resp BP Pulse Ox O2 Del Method 97.0 F 91 14 146/80 H 95 Room Air 04/21/25 08:00 04/21/25 08:00 04/21/25 08:00 04/21/25 08:00 04/21/25 08:00 04/21/25 08:00 Narrative Exam Physical Exam: General: Alert, no acute distress. Skin: Warm, dry, intact. Ulcer over left big toe and blackening of distal portions of left 2nd toe and 5th toe. Head: Normocephalic, atraumatic. Eye: Normal conjunctiva, PERRL. Cardiovascular: Regular rate and rhythm, no murmur, +S1/S2. Respiratory: Lungs are clear to auscultation, respirations unlabored, no crackles, no wheezing. Gastrointestinal: Soft, nontender, non-distended. No guarding or rebound tenderness. Extremities: Right lower extremity edema to ankles, no cyanosis, no clubbing. 2+ radial pulse bilaterally, 1+ pedal pulse bilaterally. Bandages over right leg with ulcer on right leg. Neuro: No focal deficits observed. Conversant, moving all extremities. No overt cerebellar signs/incoordination. Psychiatric: Cooperative, appropriate affect. Objective Labs 04/21/25 03:27 04/21/25 03:27 Labs: Laboratory Results - last 24 hr 04/21/25 03:27 WBC 8.6 D RBC 2.96 L Hgb 8.7 L Hct 28.4 L MCV 96 MCH 29.4 MCHC 30.6 L RDW Std Deviation 62.0 H Plt Count 204 D Neut % (Auto) 58 Lymph % (Auto) 29 [place] % (Auto) 9 Eos % (Auto) 3 Baso % (Auto) 1 Neut # (Auto) 5.0 Lymph # (Auto) 2.5 [place]row # (Auto) 0.8 Eos # (Auto) 0.2 Baso # (Auto) 0.0 Immature Gran # (Auto) 0.11 H Absolute Nucleated RBC 0.00 Immature Gran % 1 H Nucleated RBC % 0 PT 13.3 H INR 1.2 APTT 21.2 L Sodium 145 Potassium 4.0 Chloride 113 H Carbon Dioxide 17.7 L Anion Gap 14 BUN 17 Creatinine 1.2 D Estim Creat Clear Calc Not Performed. eGFR 52 L BUN/Creatinine Ratio 14 Glucose 99 Calculated Osmolality 290 Calcium 9.0 Corrected Calcium 9.5 Phosphorus 4.7 Magnesium 1.6 Total Bilirubin 1.2 AST 25 ALT 13 Alkaline Phosphatase 70 Total Protein 6.0 Albumin 3.4 L Globulin 2.6 Albumin/Globulin Ratio 1.3 Quality Measures Quality Measures VTE prophylaxis Assessment & Plan Assessment Current Active Medications: Generic Name Dose Route Start Last Admin Trade Name Freq PRN Reason Stop Dose Admin Acetaminophen 650 mg 04/21/25 06:40 Acetaminophen 325 Mg Tablet PO 05/21/25 06:39 Q6H PRN PAIN SCALE 1-3 (mild Acetaminophen 650 mg 04/21/25 06:40 Acetaminophen 325 Mg Tablet PO 05/21/25 06:39 Q6H PRN Fever >100.4 Hydrocodone Bitart/Acetaminophen 1 tab 04/21/25 06:40 04/21/25 09:44 Hydrocodone/Apap 10/325 Tab PO 04/26/25 06:39 1 tab Q4HR PRN Administration PAIN SCALE 7-10 (Severe Dextrose 25 ml 04/21/25 05:05 Dextrose 50%-Water Inj 50 Ml Syringe IV 05/21/25 05:04 Q15MIN PRN BG 50-70 responsive npo pt Dextrose 50 ml 04/21/25 05:05 Dextrose 50%-Water Inj 50 Ml Syringe IV 05/21/25 05:04 Q15MIN PRN BG <50 OR BG <70 & pt unresponsive Glucagon 1 mg 04/21/25 05:05 Glucagon Inj 1 Mg Vial IM Q15MIN PRN BG <70, and no IV access Magnesium Sulfate 4 gm in 50 mls @ 12.5 mls/hr 04/21/25 08:16 04/21/25 09:45 Magnesium Sulfate Ivpb IV 04/21/25 12:15 12.5 mls/hr X1 ONE Administration Insulin Human Lispro 0 unit 04/21/25 07:30 04/21/25 07:47 Insulin Lispro (Admelog) 1 Unit/0.01 Ml Unit SC 05/21/25 07:29 Not Given ACHS [facility] Protocol Labetalol HCl 10 mg 04/21/25 07:54 Labetalol Inj 5 Mg/Ml Vial 20 Ml IVP 05/21/25 07:51 Q2H PRN BP >180/85 Ondansetron HCl 4 mg 04/21/25 06:40 Ondansetron Inj 2 Mg/Ml Inj 2 Ml IVP 05/21/25 06:39 Q6H PRN NAUSEA OR VOMITING Protocol Oxycodone/Acetaminophen 1 tab 04/21/25 06:40 Oxycodone/Apap 5/325 Tablet PO 04/26/25 06:39 Q6H PRN PAIN SCALE 4-6 (Moderate Pantoprazole Sodium 40 mg 04/21/25 09:00 04/21/25 09:45 Pantoprazole Inj 40 Mg Vial IVP 05/21/25 08:59 40 mg QDAY CRIS Administration Plan 59-year-old female with diabetes (A1c 13.6), hypertension, asthma, and substance use was found unresponsive at home on 03/26/25, with GCS <8 and positive UDS for methamphetamine. Imaging revealed multiple embolic strokes, bilateral PEs, DVT, and splenic infarct. ICU course was complicated by septic shock, KINJAL requiring CRRT, rhabdomyolysis, and hemorrhagic transformation of strokes. Anticoagulation was withheld due to bleeding risk. She later developed a GI bleed requiring transfusion. After stabilization, she was transferred to [place] for neurosurgical evaluation, then to [place]. Embolic CVAs with Hemorrhagic Conversion Multiple embolic infarcts seen on MRI (bilateral occipital, frontal, parietal lobes). Later developed hemorrhagic transformation with SAH and new lesions on CT. ? No anticoagulation per neurology and neurosurgery recommendations ? Serial neuro exams and CT imaging as indicated ? Supportive care only; no surgical intervention indicated ? Rehabilitation needs assessment post-acute phase ? Consulted neurology, appreciate recommendations Agitation Patient noted to be agitated during previous hospital stay and per nursing staff. Patient required multiple units of haloperidol throughout the day due to slight agitation. ? Seroquel 25 mg nightly Acute Kidney Injury on CKD - CRRT / HD (resovled) Required CRRT, currently renal function stable with CR 1.2, GFR 52 ? Renally dose meds, avoid overdiuresis and NEPHROTOXINS ? Daily CMP DVT/PEs and Hypercoagulable State (PFO + ASA) Bilateral PEs and extensive LLE DVT. TTE showed vegetations; SYLVIE negative for IE but showed PFO and atrial septal aneurysm. Anticoagulation withheld due to high bleed risk. ? No anticoagulation per neurology and ID ? IVC filter placed 03/31 ? Hypercoagulable workup initiated, needs outpatient follow-up ? Avoid antiplatelet/anticoagulants until bleeding risk is reassessed ? Consulted heme-onc, appreciate recommendations Hemorrhagic Conversion + GI Bleed (Hb dropped to 5.6) ON previosu admission, had acute drop in Hgb from 8?[address] showed worsening brain hemorrhage. Likely UGIB; endoscopy deferred due to instability. Hgb stable at 8.7 ? Monitor CBC and hemodynamic stability ? GI follow-up if clinically stable ? Avoid anticoagulants and NSAIDs Diabetic Management / Hyperglycemia (A1c 13.6) Glucose 550 on last admission. Likely poorly controlled diabetes; only reported taking METFORMIN at home. Glucose 99 currently. ? INSULIN sliding scale ? Accu-Cheks Chronic Ulcers / Necrotic Toes Chronic right leg ulcer improving. New necrosis of left great toe and fifth digit. ? Wound care consultation Possible Underlying Malignancy CT showed lung and splenic findings concerning for infarct vs malignancy. Elevated CA 19-9 and CA 15-3. IR and oncology deferred biopsy due to lack of accessible lesion. ? PET scan recommended outpatient ? Monitor for progression ? Follow up with oncology outpatient Health maintenance Diet: Regular Diet (pending swallow eval) GI prophylaxis: PROTONIX DVT prophylaxis: Contraindicated, SCD Antibiotics: Not indicated CODE STATUS: Full code Disposition: Transfer back for hemorrhagic stroke Case was discussed with attending physician, Dr. Toney and senior resident Dr. Garcia (PGY-2). Carlin Pate, PGY-1 Attending Provider Attestation/Addendum I attest that I was physically present for the evaluation, physical examination, lab and imaging review of the patient with the residents. I discussed the case with the residents and agree with the findings and plans of care as documented above. Patient is a 59 years old female with past medical history of diabetes mellitus, hypertension, asthma, chronic right leg ulcer who initially presented to [facility] on 03/26/2025 after being found unresponsive at home. She was initially admitted to ICU for acute hypoxic respiratory failure, toxic metabolic encephalopathy, rhabdomyolysis and multiorgan failure. Patient had a long hospital course, with septic shock needing vasopressors, later on developed KINJAL requiring CRRT, patient was also later found to have multiple PE and DVTs. She was also found to have acute stroke, embolic, with hemorrhagic conversion. Patient also had splenic infarct, pneumonia, PFO, leg ulcers and necrotic digits. After she was found to have a stable hemorrhage on head CT, attempt was made to start her on heparin drip, but patient had change in mentation, worsening intracranial hemorrhage, possible GI bleed. Patient was then transferred to ICU again and was transferred to higher center for neurosurgical evaluation. Endoscopy could not be completed at that time due to patient's clinical instability, patient had multiple lesions concerning for possible malignancy around multiple sites of body but no biopsy of lesion was identified. Multiple goals of care discussion were held with the family, family wishes to continue aggressive management. Patient was then transferred to [facility], had close monitoring in the ICU, no surgical interventions were made, patient's GCS improved and was transferred back to [facility]. At bedside today, patient was sleeping comfortably, able to wake up and answer questions. Alert and waking up but oriented x 2, was able to move all her limbs. All anticoagulation and antiplatelets are on hold currently. We will obtain neurology consult, we will also attempt to reach out to hematology in regards to anticoagulation on discharge. Will also obtain physical therapy evaluation. Joe Toney MD
[2025-04-21 09:51] LABS: Lactate (Lactic Acid) 1.0 mMol/L (0.4-2.0)
--- NOTE | 2025-04-21 11:35 | PD.RESCONSUL ---
HPI Data of Consult Requesting Physician: Jose Sexton MD Admitting Provider: Jose Sexton MD Attending Provider: Jose Sexton MD Primary Care Provider: Physician No Primary/Family Consult Narrative History of present illness: This is a 59-year-old female with a history of diabetes mellitus (A1c 13.6), hypertension, asthma, and chronic right leg ulcer who presented at [facility] on 03/26/2025 after being found unresponsive at home with pinpoint pupils. She was down for approximately 7 hours and responded partially to NARCAN given by EMS. On ED arrival, she had a GCS <8 and required intubation. Vitals were notable for fever to 101.3, RR 35, BP 107/78. Labs revealed leukocytosis (WBC 13.1), KINJAL (Cr 2.8), acidosis (bicarb 18), lactic acidosis (lactate 4.7), hyperglycemia (glucose 550), transaminitis (AST 146, ALT 61), markedly elevated CK (9752), and high procalcitonin (43.23). UDS was positive for methamphetamine and marijuana. Imaging showed multiple embolic infarcts on head CT and MRI involving bilateral occipital, frontal, and parietal lobes. She was admitted to the ICU for acute hypoxic respiratory failure, toxic-metabolic encephalopathy, rhabdomyolysis, and multiorgan failure. Septic shock and KINJAL on CKD progressed, requiring initiation of CRRT. TTE on 03/26 showed mild global hypokinesis with EF 40?45% and tricuspid valve vegetations suggestive of endocarditis. CTA on 03/28 revealed bilateral PEs and extensive non-occlusive DVT in the LLE. Due to multiple embolic CVAs and concern for hemorrhagic conversion, anticoagulation was withheld. Head CT on 03/30 confirmed hemorrhagic transformation with subarachnoid hemorrhage. SYLVIE on 03/30 showed no vegetations but did reveal atrial septal aneurysm and PFO. Blood cultures grew Staph hominis in one bottle (likely contaminant); urine culture grew pansensitive E. coli. Antibiotics were switched from VANCOMYCIN and ZOSYN to CEFTRIAXONE on 03/30. She was considered for transfer for PFO evaluation, but [facility] CT surgery found the PFO unlikely to be the embolic source and recommended hypercoagulable workup prior to considering closure. An IVC filter was placed on 03/31. CT chest/abd/pelvis showed PE, pneumonia or infarct, and a large splenic infarct. She was extubated on 03/31 and downgraded from ICU. Skin biopsy of livedo reticularis was performed. She had persistent right-sided neglect and confusion with intermittent agitation managed with PRN OLANZAPINE. Right leg ulcer was healing; however, left great toe and fifth digit appeared necrotic. On 04/13, patient became more lethargic and had acute drop in hemoglobin to 5.6 from baseline 8?9. She was upgraded to ICU for concern of GI bleeding and possible need for intubation. She received 2 units PRBC. No intubation was needed. Repeat CT head showed worsening intracranial hemorrhage. All anticoagulation was held, including HEPARIN drip. Gastroenterology deferred endoscopy due to clinical instability. She had one HD session in ICU. Radiation oncology and IR were consulted for possible malignancy due to imaging findings and elevated tumor markers (CA 19-9 and CA 15-3). No biopsyable lesion was identified. PET scan was recommended outpatient. Goals of care discussion was held with . Family was informed of poor prognosis given extensive embolic strokes, hemorrhagic conversion, and inability to anticoagulate. Due to high bleeding risk and overall clinical instability, further anticoagulation was not pursued. Family elected to continue full medical care at this time. In light of the family decision and hemorrhagic conversion, transfer was initiated on 04/14/2025 to [facility] for neurosurgery. She was admitted to ICU for close monitoring with neurology on board with serial head CT to monitor for brain bleed. No surgical intervention was performed and she was continued on supportive care. Additionally, she was found to have DVT of deep femoral and superficial femoral veins on imaging. GCS remained around 14. Patient made hemodynamically stable. Most recent CT showed improvement in hemorrhagic infarction. She was downgraded to telemetry and subsequently transferred to [facility]. No further hypercoagulable workup was done at external hospital. On exam, she is alert, was able to tell me her birthday but did not recognize her last name or location or month or date or place. Otherwise she appeared comfortable and had no neurological deficits on exam. She denied headaches, visual changes, chest pain, shortness of breath, GI or urinary symptoms. Past medical history: As stated above Medications: pending med recon Allergies: NKDA Past surgical history: Unable to obtain at this time Past social history: Active smoker [id number] history, remote heroin abuse, methamphetamine use, marijuana use 04/21/25: Patient was seen and examined at the bedside. Patient appears drowsy however alert and answered some of the questions and sleep. Patient was agitated this afternoon and was given Seroquel and haloperidol due to acute agitation. ANCA screen negative. ANCA ANCA was negative. Complement levels were normal. A1c 13.6. Cryoglobulin qualitative positive. Vitals were stable. Hemoglobin at 8.7. Chemistry panel showed mild metabolic acidosis with bicarb 17.7. aPTT 21.2. IVC filter was placed on 03/31. Recommended to hold off antiplatelet agents due to risk of bleeding. Will repeat head CT without contrast tomorrow to evaluate and monitor bleeding. cc:: cc: Jose Sexton MD Review of Systems Review of Systems ROS Unobtainable: unobtainable due to mental status Past Medical History Past Medical History Comments PMH COMMENT: Diabetes mellitus 2 hypertension asthma methamphetamine abuse e Exam Vital Signs Temp Pulse Resp BP Pulse Ox O2 Del Method 97.0 F 91 14 146/80 H 95 Room Air 04/21/25 08:00 04/21/25 08:00 04/21/25 08:00 04/21/25 08:00 04/21/25 08:00 04/21/25 08:00 Narrative Exam Head: Normocephalic, atraumatic. Eye: Slightly icteric. Bilateral corneal arcus noted. EOMI and PERRLA. Throat: Oral mucosa moist. Cardiovascular: Regular rate and rhythm, no murmur, normal peripheral perfusion, no edema. Respiratory: Lungs are clear to auscultation, respirations non labored, no crackles, no wheezing. Gastrointestinal: Soft, mildly distended, mild discomfort to palpation throughout. No guarding or rebound tenderness. Temporary left femoral catheter in place. Psychiatric: Confused and agitated (calling for mom to help her and screaming). Skin: Ulcer of the L big toe over the proximal phalange with blackening of the distal portions of that toe. Right lower extremity edema below the ankle. Results Labs 04/21/25 03:27 04/21/25 03:27 Labs: Short CBC 04/21/25 Range/Units 03:27 WBC 8.6 D (3.6-11.0) Thou/mm3 Hgb 8.7 L (12.0-16.0) g/dL Hct 28.4 L (36.0-46.0) % Plt Count 204 D (140-440) Thou/mm3 BMP 04/21/25 03:27 Sodium 145 Potassium 4.0 Chloride 113 H Carbon Dioxide 17.7 L BUN 17 Creatinine 1.2 D Glucose 99 Calcium 9.0 Liver Function 04/21/25 Range/Units 03:27 Total Bilirubin 1.2 (0.3-1.2) mg/dL AST 25 (0-34) U/L ALT 13 (10-49) U/L Alkaline Phosphatase 70 (46-116) U/L Albumin 3.4 L (3.5-5.0) gm/dL Quality Measures Quality Measures VTE prophylaxis (scds) Medications Home Medications and Allergies Home Medications ?Medication ?Instructions ?Recorded ?Confirmed ?Type metformin 500 mg tablet 500 mg PO DAILY 04/04/25 04/04/25 History Allergies Allergy/AdvReac Type Severity Reaction Status Date / Time No Known Allergies Allergy Verified 03/26/25 11:03 Visit Medications Acetaminophen (Acetaminophen 325 Mg Tablet) 650 mg PO Q6H PRN PRN Reason: PAIN SCALE 1-3 (mild Stop: 05/21/25 06:39 Acetaminophen (Acetaminophen 325 Mg Tablet) 650 mg PO Q6H PRN PRN Reason: Fever >100.4 Stop: 05/21/25 06:39 Hydrocodone Bitart/Acetaminophen (Hydrocodone/Apap 10/325 Tab) 1 tab PO Q4HR PRN PRN Reason: PAIN SCALE 7-10 (Severe Stop: 04/26/25 06:39 Last Admin: 04/21/25 09:44 Dose: 1 tab Dextrose (Dextrose 50%-Water Inj 50 Ml Syringe) 25 ml IV Q15MIN PRN PRN Reason: BG 50-70 responsive npo pt Stop: 05/21/25 05:04 Dextrose (Dextrose 50%-Water Inj 50 Ml Syringe) 50 ml IV Q15MIN PRN PRN Reason: BG <50 OR BG <70 & pt unresponsive Stop: 05/21/25 05:04 Glucagon (Glucagon Inj 1 Mg Vial) 1 mg IM Q15MIN PRN PRN Reason: BG <70, and no IV access Magnesium Sulfate (Magnesium Sulfate Ivpb) 4 gm in 50 mls @ 12.5 mls/hr IV X1 ONE Stop: 04/21/25 12:15 Last Admin: 04/21/25 09:45 Dose: 12.5 mls/hr Insulin Human Lispro (Insulin Lispro (Admelog) 1 Unit/0.01 Ml Unit) 0 unit SC [facility]; Protocol Stop: 05/21/25 07:29 Last Admin: 04/21/25 11:03 Dose: Not Given Labetalol HCl (Labetalol Inj 5 Mg/Ml Vial 20 Ml) 10 mg IVP Q2H PRN PRN Reason: BP >180/85 Stop: 05/21/25 07:51 Ondansetron HCl (Ondansetron Inj 2 Mg/Ml Inj 2 Ml) 4 mg IVP Q6H PRN; Protocol PRN Reason: NAUSEA OR VOMITING Stop: 05/21/25 06:39 Oxycodone/Acetaminophen (Oxycodone/Apap 5/325 Tablet) 1 tab PO Q6H PRN PRN Reason: PAIN SCALE 4-6 (Moderate Stop: 04/26/25 06:39 Pantoprazole Sodium (Pantoprazole Inj 40 Mg Vial) 40 mg IVP QDAY [facility] Stop: 05/21/25 08:59 Last Admin: 04/21/25 09:45 Dose: 40 mg Quetiapine Fumarate (Quetiapine Fumarate 25 Mg Tablet) 25 mg PO HS [facility] Stop: 05/21/25 20:59 Discontinued Medications Labetalol HCl (Labetalol Inj 5 Mg/Ml Vial 20 Ml) 10 mg IVP Q6H PRN PRN Reason: BP >220/110 Stop: 05/21/25 07:09 Labetalol HCl (Labetalol Inj 5 Mg/Ml Vial 20 Ml) 10 mg IVP Q6H PRN PRN Reason: BP >180/85 Stop: 05/21/25 07:09 Assessment & Plan Plan This 59-year-old female with diabetes (A1c 13.6), hypertension, asthma, and substance use was found unresponsive at home on 03/26/25, with GCS <8 and positive UDS for methamphetamine. Imaging revealed multiple embolic strokes, bilateral PEs, DVT, and splenic infarct. ICU course was complicated by septic shock, KINJAL requiring CRRT, rhabdomyolysis, and hemorrhagic transformation of strokes. Anticoagulation was withheld due to bleeding risk. She later developed a GI bleed requiring transfusion. After stabilization, she was transferred to [place] for neurosurgical evaluation, then to [place]. Currently alert but disoriented, without focal deficits. #Embolic CVAs with Hemorrhagic Conversion Multiple embolic infarcts seen on MRI (bilateral occipital, frontal, parietal lobes). Later developed hemorrhagic transformation with SAH and new lesions on CT. Patient was agitated this afternoon and was given Seroquel and haloperidol due to acute agitation. ANCA screen negative. ANCA ANCA was negative. Complement levels were normal. A1c 13.6. Cryoglobulin qualitative positive. Plan - Will repeat head CT without contrast tomorrow to evaluate and monitor bleeding. ? No anticoagulation ? Serial neuro exams and CT imaging as indicated ? Supportive care only; no surgical intervention indicated ? Rehabilitation needs assessment post-acute phase #DVT/PEs and Hypercoagulable State (PFO + ASA) Bilateral PEs and extensive LLE DVT. TTE showed vegetations; SYLVIE negative for IE but showed PFO and atrial septal aneurysm. Anticoagulation withheld due to high bleed risk. ? No anticoagulation ? IVC filter placed 03/31 ? Hypercoagulable workup initiated, needs outpatient follow-up ? Avoid antiplatelet/anticoagulants until bleeding risk is reassessed #Acute Kidney Injury on CKD - CRRT / HD (resovled) #Hemorrhagic Conversion + GI Bleed (Hb dropped to 5.6) #Diabetic Management / Hyperglycemia (A1c 13.6) #Chronic Ulcers / Necrotic Toes #Possible Underlying Malignancy Plan of care discussed with Neurologist,Dr Benito Jay MD PGY-3
[2025-04-21 12:00] VITALS: BP 122/69; PULSE 92; PULSE 95; RESP 20; TEMP 36.8; O2SAT 96
[2025-04-21] MEDS: HALOPERIDOL LACT INJ 5 MG/ML VIAL IV ×2 (12:01→15:49)
--- NOTE | 2025-04-21 12:20 | PC.SS ---
SS met with patient regarding d/c plan. Pt is alert/oriented. Pt was admitted for Subarachnoid Hemorrhage. Pt confirmed demographic and contact information is correct on facesheet. Pt resides with and his mom. Pt ambulates independently without assistance or DME. Pt is ok with all ADLs. Patient?s pharmacy of [facility]. Pt named her , Daphne Schroeder medical decision maker if she is unable. Patient?s choice is to return home upon d/c. Pt is currently on restraints. Pt followed up with PCP 2 weeks ago. SS also spoke to patient's who will provide transportation home upon dc. D/C plan: Return home Next of Kin: Scottie Barone, , phone# [phone]/ mom, Daphne Schroeder, phone# [phone] PCP: Jeanie Davis Address: Correct on facesheet
[2025-04-21 16:00] VITALS: BP 118/62; PULSE 77; PULSE 79; RESP 19; TEMP 36.3; O2SAT 96
--- NOTE | 2025-04-21 18:46 | ESPR_ITS ---
RE: MARCOS MULLER : 1965 DATE OF SERVICE: 04/21/2025 SUBJECTIVE: Ms. Muller is a 59-year-old female with history of CVA, hemorrhagic type, frontal and left parietal area, multiple comorbidities like diabetes mellitus and possibly lesion in the chest and abdomen, which suggests possible malignancy. The patient was admitted here and then she was transferred to [place]. Nothing was done there and the patient was returned. The patient has IVC filter. She is not a candidate at the moment for any type of anticoagulation because of the hemorrhagic lesion in the brain. At the moment, one can do the supportive care because she is not a candidate for any type of anticoagulant treatment. PHYSICAL EXAMINATION: General: She is responsive. Vital Signs: She is afebrile. Vitals stable. HEENT: Pupils are reactive to light and accommodation. Sclerae nonicteric. Neck: Supple. There is no JVD. Lungs: There is good air entry bilaterally. There is decreased breath sounds at the bases. Heart: Regular. Abdomen: Soft. Bowel sounds are present. Extremities: 3+ pedal pulses. There is chronic edema with ulceration in the right leg. Central Nervous System: The patient is alert and responds very little. Her blood work today, WBC is 8.6, hemoglobin is 8.7, hematocrit 28.4, and platelet count of 204,000. The patient has multiple other comorbidities and she needed at the moment is supportive care because she is not a candidate for any type of anticoagulant treatment secondary to hemorrhagic stroke. DT: 17:00:54 TT: 17:19:00 Ref: [id number] - TID: [id number] MTDD
[2025-04-21 19:59] VITALS: BP 137/66; PULSE 84; RESP 40; TEMP 36.1; O2SAT 96
[2025-04-21 20:00] VITALS: PULSE 76
[2025-04-21] MEDS: INSULIN LISPRO (AdmeLOG) 1 UNIT/0.01 ML UNIT SC (20:48)
--- NOTE | 2025-04-21 22:00 | PC.NURSE ---
bladder scan showed 561ml encouraged pt to try and urinate. Pt urinated a large amount of urine. Redone bladder scan now 34ml in bladder. patient changed.
--- NOTE | 2025-04-21 23:03 | PC.NURSE ---
Contacted DR Dowell for patient appearing to be agitated screaming. No new orders given
[2025-04-22] VITALS (7 sets, daily range): BP systolic 132–157; BP diastolic 71–88; PULSE 77–90; RESP 14–24; TEMP 36.1–36.8; O2SAT 94–97; BMI 34.3
--- NOTE | 2025-04-22 02:00 | PC.NURSE ---
bladder scan not done patient has full brief
[2025-04-22 06:24] LABS: Basophils # (Auto) 0.0 Thou/mm3 (0.0-0.2); Basophils % (Auto) 1 % (0-2.5); Eosinophils # (Auto) 0.3 Thou/mm3 (0.0-0.5); Eosinophils % (Auto) 4 % (0-10); Hematocrit 25.0 % (36.0-46.0); Hemoglobin 8.0 g/dL (12.0-16.0); Immature Granulocytes Auto 0.11 Thou/mm3 (0.00-0.00); Lymphocytes # (Auto) 2.8 Thou/mm3 (1.0-4.8); Lymphocytes % (Auto) 34 % (10-50); Mean Corpuscular HGB Conc 32.0 g/dl (31.0-37.0); Mean Corpuscular Hemoglobin 30.1 pg (25.0-35.0); Mean Corpuscular Volume 94 fL (80-100); Monocytes # (Auto) 0.8 Thou/mm3 (0.0-0.8); Monocytes % (Auto) 9 % (0-12); Neutrophils # (Auto) 4.2 Thou/mm3 (1.8-7.7); Neutrophils % (Auto) 52 % (37-80); Nucleated Red Blood Cell # 0.00 Thou/mm3 (0.00-0.00); Nucleated Red Blood Cell % 0 /100 WBC (0); Platelet Count 244 Thou/mm3 (140-440); RDW Standard Deviation 59.1 fL (36.4-46.3); Red Blood Count 2.66 Miln/mm3 (4.00-5.20); White Blood Count 8.3 Thou/mm3 (3.6-11.0)
--- NOTE | 2025-04-22 06:43 | PC.NURSE ---
contacted Dr Murray for patient being very agitated new orders given and entered waiting for pharmacy to bring medication
[2025-04-22 06:44] LABS: Alanine Aminotransferase 9 U/L (10-49); Albumin, Serum 3.4 gm/dL (3.5-5.0); Albumin/Globulin Ratio 1.4 (1.2-2.2); Alkaline Phosphatase 69 U/L (46-116); Anion Gap 12 (7-16); Aspartate Amino Transferase 20 U/L (0-34); BUN/Creatinine Ratio 8 Ratio (12-20); Bilirubin,Total 0.9 mg/dL (0.3-1.2); Blood Urea Nitrogen 9 mg/dL (9-23); Calcium 8.9 mg/dL (8.3-10.6); Calcium (Corrected) 9.4 mg/dL (8.5-10.1); Carbon Dioxide 18.4 mMol/L (20.0-31.0); Chloride 113 mMol/L (98-107); Creatinine (Component) 1.2 mg/dL (0.6-1.3); Estimated Creatinine Clearance 53.8 mL/min (>60); Globulin 2.5 gm/dL (2.3-3.5); Glucose 93 mg/dL (74-106); Magnesium 1.7 mg/dL (1.6-2.6); Osmolality,Calculated 283 (275-295); Phosphorous 4.8 mg/dL (2.4-5.1); Potassium 3.8 mMol/L (3.4-5.1); Sodium 143 mMol/L (136-145); Total Protein 5.9 gm/dL (5.7-8.2); eGFR 52 See Note
--- NOTE | 2025-04-22 09:00 | XR_ITS ---
Examination: CT brain head without contrast. 2-D sagittal coronal reconstructions Date and time of exam:April 22, 2025 0953 hours Comment comparison April 14, 2025 INDICATIONS: Acute infarcts with areas of hemorrhage density on prior CT brain scans CTDI: vol (mGy):49.5 DLP: (mGycm):1006 Technique: Multiple CT axial sections of the brain have been obtained, 5 mm slice thickness. Contrast has not been administered. 2-D sagittal, coronal reconstructions have been obtained Low dose protocols were performed. One or more of the following dose reduction techniques were used; automated exposure control, adjustment of the mA and/or KV according to patient size, use of iterative reconstruction technique. Findings: No significant ventricular enlargement. Decrease in extent of hemorrhage in the left posterior parietal infarct Stable minimal hemorrhage in the right frontal infarct No new areas of hemorrhage Ventricles are not enlarged No significant mass effect upon the ventricular system IMPRESSION: Decrease in extent of hemorrhage in the left posterior parietal infarct Stable minimal hemorrhage in the right frontal infarct
[2025-04-22 10:03] LABS: Immature Reticulocyte Fraction 28.8 % (3.0-15.9); Reticulocyte % (Auto) 4.8 % (0.5-1.5); Reticulocyte Absolute Auto 127.6 Biln/L (25.0-75.0); Reticulocyte Hgb Content 29.2 pg (28.0-35.0)
[2025-04-22 11:44] LABS: Ferritin 256 ng/mL (7.3-270.7); Iron 32 mcg/dL (50-170); Percent Iron Saturation 14 % (20-55); Total Iron Binding Capacity 214 mcg/dL (250-425); Unsaturated Iron Binding 182 (225-295)
--- NOTE | 2025-04-22 12:23 | PC.SS ---
Rounding: Pending CT, DC plan home
--- NOTE | 2025-04-22 13:05 | PC.SS ---
SS spoke to Scottie Barone, pt , phone# [phone] who informed SS that they are interested in transitioning the pt into SNF for short term rehab. [facility]. SS submitted referral via [employer].
--- NOTE | 2025-04-22 13:29 | PC.SS ---
PAS LVL 1 completed and downloaded.
--- NOTE | 2025-04-22 13:44 | ESPR_ITS ---
<Statement entered by Albino Garcia MD - 04/22/25 16:13> Patient seen and assessed in hospital bed showing mild improvement in mental status, less agitated than last examination. Repeat CT was ordered as per neurology recommendations to assess for patient's hemorrhagic stroke. CT head does not show any concerning findings. Will continue to monitor patient and avoid any anticoagulation or antiplatelets. At this time, patient's hypercoagulable state remains unclear; moreover, further workup is required including cancer screening. Will continue to monitor the patient for any acute changes. I have personally seen and examined the patient. I agree with the resident's assessment and plan as documented below. Albino Garcia DO PGY-2 Internal Medicine - GME Documentation for date of: 04/22/25 Subjective Subjective Interval history: Overnight events: No acute events overnight. Patient was seen and examined at bedside. AM vitals and labs reviewed. Patient continues to be in a good mood. Discussed plan with family members at bedside. According to the patient, the Seroquel given to her at night helped her sleep. Hemoglobin 8.0 CT head shows decrease in extent of hemorrhage and left posterior parietal infarct and stable minimal hemorrhage and right frontal infarct. Repeat H&H ordered for 1500, resulted as 8.4/27.3 Per neurology and heme-onc, patient is not a candidate for anticoagulation. Pending further recommendations from neurology regarding CT head findings. Review of systems otherwise negative except for what is mentioned above. Exam Vital Signs Temp Pulse Resp BP Pulse Ox O2 Del Method 97.7 F 89 20 157/82 H 95 Room Air 04/22/25 12:00 04/22/25 12:00 04/22/25 12:00 04/22/25 12:00 04/22/25 12:04/22/25 12:00 Narrative Exam Physical Exam: General: Alert, no acute distress. Skin: Warm, dry, intact. Ulcer over left big toe and blackening of distal portions of left 2nd toe and 5th toe. Head: Normocephalic, atraumatic. Eye: Normal conjunctiva, PERRL. Cardiovascular: Regular rate and rhythm, no murmur, +S1/S2. Respiratory: Lungs are clear to auscultation, respirations unlabored, no crackles, no wheezing. Gastrointestinal: Soft, nontender, non-distended. No guarding or rebound tenderness. Extremities: Right lower extremity edema to ankles, no cyanosis, no clubbing. 2+ radial pulse bilaterally, 1+ pedal pulse bilaterally. Bandages over right leg with ulcer on right leg. Neuro: No focal deficits observed. Conversant, moving all extremities. No overt cerebellar signs/incoordination. Psychiatric: Cooperative, appropriate affect. Objective Labs 04/22/25 14:51 04/22/25 04:36 Labs: Laboratory Results - last 24 hr 04/22/25 04/22/25 04/22/25 04:36 06:10 11:02 WBC 8.3 RBC 2.66 L Hgb 8.0 L Hct 25.0 L MCV 94 MCH 30.1 MCHC 32.0 RDW Std Deviation 59.1 H Plt Count 244 D Neut % (Auto) 52 Lymph % (Auto) 34 [place] % (Auto) 9 Eos % (Auto) 4 Baso % (Auto) 1 Neut # (Auto) 4.2 Lymph # (Auto) 2.8 [place] # (Auto) 0.8 Eos # (Auto) 0.3 Baso # (Auto) 0.0 Immature Gran # (Auto) 0.11 H Absolute Nucleated RBC 0.00 Immature Gran % 1 H Nucleated RBC % 0 Retic Count (auto) 4.8 H Absolute Retic 127.6 H Immature Retic Fraction 28.8 H Retic Hgb Content CHr 29.2 Sodium 143 Potassium 3.8 Chloride 113 H Carbon Dioxide 18.4 L Anion Gap 12 BUN 9 Creatinine 1.2 Estim Creat Clear Calc 53.8 L eGFR 52 L BUN/Creatinine Ratio 8 L Glucose 93 Calculated Osmolality 283 Calcium 8.9 Corrected Calcium 9.4 Phosphorus 4.8 Magnesium 1.7 Iron 32 L TIBC 214 L Iron Saturation 14 L Unsat Iron Binding 182 L Ferritin 256 Total Bilirubin 0.9 AST 20 ALT 9 L Alkaline Phosphatase 69 Total Protein 5.9 Albumin 3.4 L Globulin 2.5 Albumin/Globulin Ratio 1.4 Quality Measures Quality Measures VTE prophylaxis (scds) Assessment & Plan Assessment Current Active Medications: Generic Name Dose Route Start Last Admin Trade Name Freq PRN Reason Stop Dose Admin Acetaminophen 650 mg 04/21/25 06:40 Acetaminophen 325 Mg Tablet PO 05/21/25 06:39 Q6H PRN PAIN SCALE 1-3 (mild Acetaminophen 650 mg 04/21/25 06:40 Acetaminophen 325 Mg Tablet PO 05/21/25 06:39 Q6H PRN Fever >100.4 Hydrocodone Bitart/Acetaminophen 1 tab 04/21/25 06:40 04/21/25 09:44 Hydrocodone/Apap 10/325 Tab PO 04/26/25 06:39 1 tab Q4HR PRN Administration PAIN SCALE 7-10 (Severe Dextrose 25 ml 04/21/25 05:05 Dextrose 50%-Water Inj 50 Ml Syringe IV 05/21/25 05:04 Q15MIN PRN BG 50-70 responsive npo pt Dextrose 50 ml 04/21/25 05:05 Dextrose 50%-Water Inj 50 Ml Syringe IV 05/21/25 05:04 Q15MIN PRN BG <50 OR BG <70 & pt unresponsive Glucagon 1 mg 04/21/25 05:05 Glucagon Inj 1 Mg Vial IM Q15MIN PRN BG <70, and no IV access Insulin Human Lispro 0 unit 04/21/25 07:30 04/22/25 13:04 Insulin Lispro (Admelog) 1 Unit/0.01 Ml Unit SC 05/21/25 07:29 Not Given ACHS CRIS Protocol Labetalol HCl 10 mg 04/21/25 07:54 Labetalol Inj 5 Mg/Ml Vial 20 Ml IVP 05/21/25 07:51 Q2H PRN BP >180/85 Ondansetron HCl 4 mg 04/21/25 06:40 Ondansetron Inj 2 Mg/Ml Inj 2 Ml IVP 05/21/25 06:39 Q6H PRN NAUSEA OR VOMITING Protocol Oxycodone/Acetaminophen 1 tab 04/21/25 06:40 Oxycodone/Apap 5/325 Tablet PO 04/26/25 06:39 Q6H PRN PAIN SCALE 4-6 (Moderate Pantoprazole Sodium 40 mg 04/21/25 09:00 04/22/25 09:47 Pantoprazole Inj 40 Mg Vial IVP 05/21/25 08:59 40 mg QDAY CRIS Administration Quetiapine Fumarate 25 mg 04/21/25 21:00 04/21/25 20:43 Quetiapine Fumarate 25 Mg Tablet PO 05/21/25 20:59 25 mg HS CRIS Administration Plan 59-year-old female with diabetes (A1c 13.6), hypertension, asthma, and substance use was found unresponsive at home on 03/26/25, with GCS <8 and positive UDS for methamphetamine. Imaging revealed multiple embolic strokes, bilateral PEs, DVT, and splenic infarct. ICU course was complicated by septic shock, KINJAL requiring CRRT, rhabdomyolysis, and hemorrhagic transformation of strokes. Anticoagulation was withheld due to bleeding risk. She later developed a GI bleed requiring transfusion. After stabilization, she was transferred to [place] for neurosurgical evaluation, then to [place]. Embolic CVAs with Hemorrhagic Conversion Multiple embolic infarcts seen on MRI (bilateral occipital, frontal, parietal lobes). Later developed hemorrhagic transformation with SAH and new lesions on CT. ? No anticoagulation per neurology and neurosurgery recommendations ? Serial neuro exams and CT imaging as indicated ? Supportive care only; no surgical intervention indicated ? Rehabilitation needs assessment post-acute phase ? Consulted neurology, appreciate recommendations ? CT head 04/22 showed decrease in extent of hemorrhage and left posterior parietal infarct and stable minimal hemorrhage and right frontal infarct Agitation Patient noted to be agitated during previous hospital stay and per nursing staff. Patient required multiple units of haloperidol throughout the day due to slight agitation. ? Seroquel 25 mg nightly Acute Kidney Injury on CKD - CRRT / HD (resovled) Required CRRT, currently renal function stable with CR 1.2, GFR 52 ? Renally dose meds, avoid overdiuresis and NEPHROTOXINS ? Daily CMP DVT/PEs and Hypercoagulable State (PFO + ASA) Bilateral PEs and extensive LLE DVT. TTE showed vegetations; SYLVIE negative for IE but showed PFO and atrial septal aneurysm. Anticoagulation withheld due to high bleed risk. ? No anticoagulation per neurology and ID ? IVC filter placed 03/31 ? Hypercoagulable workup initiated, needs outpatient follow-up ? Avoid antiplatelet/anticoagulants until bleeding risk is reassessed ? Consulted heme-onc, appreciate recommendations Hemorrhagic Conversion + GI Bleed (Hb dropped to 5.6) On previous admission, had acute drop in Hgb from 8?[address] showed worsening brain hemorrhage. Likely UGIB; endoscopy deferred due to instability. Hgb stable at 8.7 ? Monitor CBC and hemodynamic stability ? GI follow-up if clinically stable ? Avoid anticoagulants and NSAIDs ? Per neurology and heme-onc recommendations, patient has not a candidate for anticoagulation Diabetic Management / Hyperglycemia (A1c 13.6) Glucose 550 on last admission. Likely poorly controlled diabetes; only reported taking METFORMIN at home. Glucose 99 currently. ? INSULIN sliding scale ? Accu-Cheks Chronic Ulcers / Necrotic Toes Chronic right leg ulcer improving. New necrosis of left great toe and fifth digit. ? Wound care consultation Possible Underlying Malignancy CT showed lung and splenic findings concerning for infarct vs malignancy. Elevated CA 19-9 and CA 15-3. IR and oncology deferred biopsy due to lack of accessible lesion. ? PET scan recommended outpatient ? Monitor for progression ? Follow up with oncology outpatient Health maintenance Diet: Cardiac, dysphagia 3 advanced GI prophylaxis: PROTONIX DVT prophylaxis: Contraindicated, SCD Antibiotics: Not indicated CODE STATUS: Full code Disposition: Transfer back for hemorrhagic stroke Case was discussed with attending physician, Dr. Toney and senior resident Dr. Garcia (PGY-2). Carlin Pate, PGY-1 Attending Provider Attestation/Addendum I attest that I was physically present for the evaluation, physical examination, lab and imaging review of the patient with the residents. I discussed the case with the residents and agree with the findings and plans of care as documented above. Joe Toney MD
[2025-04-22 15:27] LABS: Hematocrit 27.3 % (36.0-46.0)
--- NOTE | 2025-04-22 15:29 | PD.RESPRO ---
Documentation for date of: 04/22/25 Subjective Subjective Interval history: Patient was seen and examined at the bedside. No acute overnight events reported. Patient appears alert and oriented x 2 not to day. Patient's right leg appears swollen and weak however left leg continues to have however 5/5. Repeat CT brain showed Decrease in extent of hemorrhage in the left posterior parietal infarct. Stable minimal hemorrhage in the right frontal infarct. Recommended to continue hold off antiplatelets. Exam Vital Signs Temp Pulse Resp BP Pulse Ox O2 Del Method 97.7 F 89 20 157/82 H 95 Room Air 04/22/25 12:00 04/22/25 12:00 04/22/25 12:00 04/22/25 12:00 04/22/25 12:00 04/22/25 12:00 Narrative Exam Head: Normocephalic, atraumatic. Saturating well on room air. Eye: Slightly icteric. Bilateral corneal arcus noted. EOMI and PERRLA. Throat: Oral mucosa moist. Cardiovascular: Regular rate and rhythm, no murmur, normal peripheral perfusion, no edema. Respiratory: Lungs are clear to auscultation, respirations non labored, no crackles, no wheezing. Gastrointestinal: Soft, mildly distended, mild discomfort to palpation throughout. No guarding or rebound tenderness. Neuro: Alert and oriented x 2 not to time. Right leg weak power 3/5, left leg power is 5/5 Psychiatric: Appropriate mood and affect Skin: Ulcer of the L big toe over the proximal phalange with blackening of the distal portions of that toe. Right lower extremity edema below the ankle. Objective Labs 04/22/25 06:10 04/22/25 04:36 Labs: Laboratory Results - last 24 hr 04/22/25 04/22/25 04/22/25 04:36 06:10 11:02 WBC 8.3 RBC 2.66 L Hgb 8.0 L Hct 25.0 L MCV 94 MCH 30.1 MCHC 32.0 RDW Std Deviation 59.1 H Plt Count 244 D Neut % (Auto) 52 Lymph % (Auto) 34 [place] % (Auto) 9 Eos % (Auto) 4 Baso % (Auto) 1 Neut # (Auto) 4.2 Lymph # (Auto) 2.8 [place] # (Auto) 0.8 Eos # (Auto) 0.3 Baso # (Auto) 0.0 Immature Gran # (Auto) 0.11 H Absolute Nucleated RBC 0.00 Immature Gran % 1 H Nucleated RBC % 0 Retic Count (auto) 4.8 H Absolute Retic 127.6 H Immature Retic Fraction 28.8 H Retic Hgb Content CHr 29.2 Sodium 143 Potassium 3.8 Chloride 113 H Carbon Dioxide 18.4 L Anion Gap 12 BUN 9 Creatinine 1.2 Estim Creat Clear Calc 53.8 L eGFR 52 L BUN/Creatinine Ratio 8 L Glucose 93 Calculated Osmolality 283 Calcium 8.9 Corrected Calcium 9.4 Phosphorus 4.8 Magnesium 1.7 Iron 32 L TIBC 214 L Iron Saturation 14 L Unsat Iron Binding 182 L Ferritin 256 Total Bilirubin 0.9 AST 20 ALT 9 L Alkaline Phosphatase 69 Total Protein 5.9 Albumin 3.4 L Globulin 2.5 Albumin/Globulin Ratio 1.4 Quality Measures Quality Measures VTE prophylaxis (scds) Assessment & Plan Assessment Current Active Medications: Generic Name Dose Route Start Last Admin Trade Name Freq PRN Reason Stop Dose Admin Acetaminophen 650 mg 04/21/25 06:40 Acetaminophen 325 Mg Tablet PO 05/21/25 06:39 Q6H PRN PAIN SCALE 1-3 (mild Acetaminophen 650 mg 04/21/25 06:40 Acetaminophen 325 Mg Tablet PO 05/21/25 06:39 Q6H PRN Fever >100.4 Hydrocodone Bitart/Acetaminophen 1 tab 04/21/25 06:40 04/21/25 09:44 Hydrocodone/Apap 10/325 Tab PO 04/26/25 06:39 1 tab Q4HR PRN Administration PAIN SCALE 7-10 (Severe Dextrose 25 ml 04/21/25 05:05 Dextrose 50%-Water Inj 50 Ml Syringe IV 05/21/25 05:04 Q15MIN PRN BG 50-70 responsive npo pt Dextrose 50 ml 04/21/25 05:05 Dextrose 50%-Water Inj 50 Ml Syringe IV 05/21/25 05:04 Q15MIN PRN BG <50 OR BG <70 & pt unresponsive Glucagon 1 mg 04/21/25 05:05 Glucagon Inj 1 Mg Vial IM Q15MIN PRN BG <70, and no IV access Insulin Human Lispro 0 unit 04/21/25 07:30 04/22/25 13:04 Insulin Lispro (Admelog) 1 Unit/0.01 Ml Unit SC 05/21/25 07:29 Not Given ACHS CRIS Protocol Labetalol HCl 10 mg 04/21/25 07:54 Labetalol Inj 5 Mg/Ml Vial 20 Ml IVP 05/21/25 07:51 Q2H PRN BP >180/85 Losartan Potassium 50 mg 04/22/25 15:30 Losartan Potassium 25 Mg Tablet PO 05/22/25 15:29 QDAY CRIS Ondansetron HCl 4 mg 04/21/25 06:40 Ondansetron Inj 2 Mg/Ml Inj 2 Ml IVP 05/21/25 06:39 Q6H PRN NAUSEA OR VOMITING Protocol Oxycodone/Acetaminophen 1 tab 04/21/25 06:40 Oxycodone/Apap 5/325 Tablet PO 04/26/25 06:39 Q6H PRN PAIN SCALE 4-6 (Moderate Pantoprazole Sodium 40 mg 04/21/25 09:00 04/22/25 09:47 Pantoprazole Inj 40 Mg Vial IVP 05/21/25 08:59 40 mg QDAY CRIS Administration Quetiapine Fumarate 25 mg 04/21/25 21:00 04/21/25 20:43 Quetiapine Fumarate 25 Mg Tablet PO 05/21/25 20:59 25 mg HS CRIS Administration Plan This 59-year-old female with diabetes (A1c 13.6), hypertension, asthma, and substance use was found unresponsive at home on 03/26/25, with GCS <8 and positive UDS for methamphetamine. Imaging revealed multiple embolic strokes, bilateral PEs, DVT, and splenic infarct. ICU course was complicated by septic shock, KINJAL requiring CRRT, rhabdomyolysis, and hemorrhagic transformation of strokes. Anticoagulation was withheld due to bleeding risk. She later developed a GI bleed requiring transfusion. After stabilization, she was transferred to [place] for neurosurgical evaluation, then to [place]. Currently alert but disoriented, without focal deficits. #Embolic CVAs with Hemorrhagic Conversion Multiple embolic infarcts seen on MRI (bilateral occipital, frontal, parietal lobes). Later developed hemorrhagic transformation with SAH and new lesions on CT. Patient was agitated this afternoon and was given Seroquel and haloperidol due to acute agitation. ANCA screen negative. ANCA ANCA was negative. Complement levels were normal. A1c 13.6. Cryoglobulin qualitative positive. -Patient appears alert and oriented x 2 not to day. Patient's right leg appears swollen and weak however left leg continues to have however 5/5. - Repeat CT brain showed Decrease in extent of hemorrhage in the left posterior parietal infarct. Stable minimal hemorrhage in the right frontal infarct. Plan - Recommended to continue hold off antiplatelets. ? Serial neuro exams and CT imaging as indicated ? Supportive care only; no surgical intervention indicated ? Rehabilitation needs assessment post-acute phase #DVT/PEs and Hypercoagulable State (PFO + ASA) Bilateral PEs and extensive LLE DVT. TTE showed vegetations; SYLVIE negative for IE but showed PFO and atrial septal aneurysm. Anticoagulation withheld due to high bleed risk. ? No anticoagulation ? IVC filter placed 03/31 ? Hypercoagulable workup negative ? Avoid antiplatelet/anticoagulants until bleeding risk is reassessed #Acute Kidney Injury on CKD - CRRT / HD (resovled) #Hemorrhagic Conversion + GI Bleed (Hb dropped to 5.6) #Diabetic Management / Hyperglycemia (A1c 13.6) #Chronic Ulcers / Necrotic Toes #Possible Underlying Malignancy Rest of the management as per primary care team. Plan of care discussed with Neurologist,Dr Benito Jay MD PGY-3
[2025-04-22] MEDS: LOSARTAN POTASSIUM 25 MG TABLET 50 MG PO (15:35)
[2025-04-22 15:45] LABS: Hemoglobin 8.4 g/dL (12.0-16.0)
--- NOTE | 2025-04-22 16:36 | PC.DIETICIAN ---
Dietitian recommendations: Add Vitamin C 500mg BID daily, zinc 220mg [id number], Multivitamin-Mineral daily to ensure adequate nutrient intake and promote wound healing. Thank you
[2025-04-23] VITALS (7 sets, daily range): BP systolic 122–146; BP diastolic 62–81; PULSE 73–92; RESP 15–20; TEMP 35.8–37.1; O2SAT 93–99
[2025-04-23 05:56] LABS: Basophils # (Auto) 0.1 Thou/mm3 (0.0-0.2); Basophils % (Auto) 1 % (0-2.5); Eosinophils # (Auto) 0.3 Thou/mm3 (0.0-0.5); Eosinophils % (Auto) 3 % (0-10); Hematocrit 26.9 % (36.0-46.0); Hemoglobin 8.2 g/dL (12.0-16.0); Immature Granulocytes Auto 0.12 Thou/mm3 (0.00-0.00); Lymphocytes # (Auto) 4.1 Thou/mm3 (1.0-4.8); Lymphocytes % (Auto) 42 % (10-50); Mean Corpuscular HGB Conc 30.5 g/dl (31.0-37.0); Mean Corpuscular Hemoglobin 29.0 pg (25.0-35.0); Mean Corpuscular Volume 95 fL (80-100); Monocytes # (Auto) 0.8 Thou/mm3 (0.0-0.8); Monocytes % (Auto) 8 % (0-12); Neutrophils # (Auto) 4.2 Thou/mm3 (1.8-7.7); Neutrophils % (Auto) 44 % (37-80); Nucleated Red Blood Cell # 0.00 Thou/mm3 (0.00-0.00); Nucleated Red Blood Cell % 0 /100 WBC (0); Platelet Count 257 Thou/mm3 (140-440); RDW Standard Deviation 58.4 fL (36.4-46.3); Red Blood Count 2.83 Miln/mm3 (4.00-5.20); White Blood Count 9.6 Thou/mm3 (3.6-11.0)
[2025-04-23 06:07] LABS: Alanine Aminotransferase 9 U/L (10-49); Albumin, Serum 3.4 gm/dL (3.5-5.0); Albumin/Globulin Ratio 1.3 (1.2-2.2); Alkaline Phosphatase 68 U/L (46-116); Anion Gap 12 (7-16); Aspartate Amino Transferase 23 U/L (0-34); BUN/Creatinine Ratio 8 Ratio (12-20); Bilirubin,Total 0.8 mg/dL (0.3-1.2); Blood Urea Nitrogen 8 mg/dL (9-23); Calcium 9.1 mg/dL (8.3-10.6); Calcium (Corrected) 9.6 mg/dL (8.5-10.1); Carbon Dioxide 20.5 mMol/L (20.0-31.0); Chloride 111 mMol/L (98-107); Creatinine (Component) 1.0 mg/dL (0.6-1.3); Estimated Creatinine Clearance 63.9 mL/min (>60); Globulin 2.6 gm/dL (2.3-3.5); Glucose 93 mg/dL (74-106); Osmolality,Calculated 283 (275-295); Potassium 4.2 mMol/L (3.4-5.1); Sodium 143 mMol/L (136-145); Total Protein 6.0 gm/dL (5.7-8.2); eGFR > 60 See Note
[2025-04-23 06:17] LABS: Glucose Estimated Average 146 mg/dL (80-131); Hemoglobin A1C 6.7 % Hgb (4.8-6.0)
[2025-04-23] MEDS: ZINC SULFATE 220 MG CAPSULE PO (08:30)
[2025-04-23] MEDS: ASCORBIC ACID 250 MG TABLET 500 MG PO ×2 (08:30→20:16)
[2025-04-23] MEDS: MULTIVITAMINS TABLET 1 TAB PO (08:30)
[2025-04-23] MEDS: LOSARTAN POTASSIUM 25 MG TABLET 50 MG PO (08:30)
--- NOTE | 2025-04-23 14:01 | ESPR_ITS ---
<Statement entered by Albino Garcia MD - 04/23/25 16:13> Patient seen and assessed in hospital bed reporting improvement in presenting symptoms and clinically appears better than yesterday. Prior to patient's transfer to outside hospital, there was concern about possible GI bleed as a result gastroenterology was consulted but due to patient having hemorrhagic conversion of stroke workup was deferred. Reconsulted gastroenterology and they will reassess the patient and see if further workup is necessary at this point. Will reach out to interventional radiology for possible biopsy. Patient is reason for hypercoagulable state remains unclear at this point; moreover, further workup is warranted. I have personally seen and examined the patient. I agree with the resident's assessment and plan as documented below. Albino Garcia, DO PGY-2 Internal Medicine - GME Documentation for date of: 04/23/25 Subjective Subjective Interval history: Overnight events: No acute events overnight. Patient was seen and examined at bedside. AM vitals and labs reviewed. Patient has no acute complaints at this time. Patient appears well and is happy. Patient is tolerating Seroquel and has not needed any additional sedation overnight. Hemoglobin 8.2, chloride 111, hemoglobin A1c 6.7% Ordered vitamin C 500 mg twice daily, zinc 220 mg daily, and multivitamin mineral solution per dietitian recommendations. Pending SNF placement. Per neurology, avoid antiplatelets. Discussed with patient. Consulted GI for possible GI bleed workup. GI was consulted previously for unexplained drop in hemoglobin, but avoided any invasive procedures as patient did not have any evelina evidence of GI bleed and was too unstable at the time. Review of systems otherwise negative except for what is mentioned above. Exam Vital Signs Temp Pulse Resp BP Pulse Ox O2 Del Method 96.5 F L 83 16 140/71 H 96 Room Air 04/23/25 12:00 04/23/25 12:00 04/23/25 12:00 04/23/25 12:04/23/25 12:04/23/25 12:00 Narrative Exam Physical Exam: General: Alert, no acute distress. Skin: Warm, dry, intact. Ulcer over left big toe and blackening of distal portions of left 2nd toe and 5th toe. Head: Normocephalic, atraumatic. Eye: Normal conjunctiva, PERRL. Cardiovascular: Regular rate and rhythm, no murmur, +S1/S2. Respiratory: Lungs are clear to auscultation, respirations unlabored, no crackles, no wheezing. Gastrointestinal: Soft, nontender, non-distended. No guarding or rebound tenderness. Extremities: Right lower extremity edema to ankles, no cyanosis, no clubbing. 2+ radial pulse bilaterally, 1+ pedal pulse bilaterally. Bandages over right leg with ulcer on right leg. Neuro: No focal deficits observed. Conversant, moving all extremities. No overt cerebellar signs/incoordination. Psychiatric: Cooperative, appropriate affect. Objective Labs 04/23/25 04:19 04/23/25 04:19 Labs: Laboratory Results - last 24 hr 04/22/25 04/23/25 14:51 04:19 WBC 9.6 RBC 2.83 L Hgb 8.4 L 8.2 L Hct 27.3 L 26.9 L MCV 95 MCH 29.0 MCHC 30.5 L RDW Std Deviation 58.4 H Plt Count 257 Neut % (Auto) 44 Lymph % (Auto) 42 [place] % (Auto) 8 Eos % (Auto) 3 Baso % (Auto) 1 Neut # (Auto) 4.2 Lymph # (Auto) 4.1 [place] # (Auto) 0.8 Eos # (Auto) 0.3 Baso # (Auto) 0.1 Immature Gran # (Auto) 0.12 H Absolute Nucleated RBC 0.00 Immature Gran % 1 H Nucleated RBC % 0 Sodium 143 Potassium 4.2 Chloride 111 H Carbon Dioxide 20.5 Anion Gap 12 BUN 8 L Creatinine 1.0 Estim Creat Clear Calc 63.9 eGFR > 60 BUN/Creatinine Ratio 8 L Glucose [address] Glu mg/dL 146 H Hemoglobin A1c 6.7 H Calculated Osmolality 283 Calcium 9.1 Corrected Calcium 9.6 Total Bilirubin 0.8 AST 23 ALT 9 L Alkaline Phosphatase 68 Total Protein 6.0 Albumin 3.4 L Globulin 2.6 Albumin/Globulin Ratio 1.3 Quality Measures Quality Measures VTE prophylaxis (scds) Assessment & Plan Assessment Current Active Medications: Generic Name Dose Route Start Last Admin Trade Name Freq PRN Reason Stop Dose Admin Acetaminophen 650 mg 04/21/25 06:40 Acetaminophen 325 Mg Tablet PO 05/21/25 06:39 Q6H PRN PAIN SCALE 1-3 (mild Acetaminophen 650 mg 04/21/25 06:40 Acetaminophen 325 Mg Tablet PO 05/21/25 06:39 Q6H PRN Fever >100.4 Hydrocodone Bitart/Acetaminophen 1 tab 04/21/25 06:40 04/23/25 04:50 Hydrocodone/Apap 10/325 Tab PO 04/26/25 06:39 1 tab Q4HR PRN Administration PAIN SCALE 7-10 (Severe Ascorbic Acid 500 mg 04/23/25 09:00 04/23/25 08:30 Ascorbic Acid 250 Mg Tablet PO 05/23/25 08:59 500 mg BID CRIS Administration Dextrose 25 ml 04/21/25 05:05 Dextrose 50%-Water Inj 50 Ml Syringe IV 05/21/25 05:04 Q15MIN PRN BG 50-70 responsive npo pt Dextrose 50 ml 04/21/25 05:05 Dextrose 50%-Water Inj 50 Ml Syringe IV 05/21/25 05:04 Q15MIN PRN BG <50 OR BG <70 & pt unresponsive Glucagon 1 mg 04/21/25 05:05 Glucagon Inj 1 Mg Vial IM Q15MIN PRN BG <70, and no IV access Insulin Human Lispro 0 unit 04/21/25 07:30 04/23/25 11:45 Insulin Lispro (Admelog) 1 Unit/0.01 Ml Unit SC 05/21/25 07:29 Not Given ACHS [facility] Protocol Labetalol HCl 10 mg 04/21/25 07:54 Labetalol Inj 5 Mg/Ml Vial 20 Ml IVP 05/21/25 07:51 Q2H PRN BP >180/85 Losartan Potassium 50 mg 04/22/25 15:30 04/23/25 08:30 Losartan Potassium 25 Mg Tablet PO 05/22/25 15:29 50 mg QDAY CRIS Administration Multivitamins 1 tab 04/23/25 09:00 04/23/25 08:30 Multivitamins Tablet PO 05/23/25 08:59 1 tab QDAY CRIS Administration Ondansetron HCl 4 mg 04/21/25 06:40 Ondansetron Inj 2 Mg/Ml Inj 2 Ml IVP 05/21/25 06:39 Q6H PRN NAUSEA OR VOMITING Protocol Oxycodone/Acetaminophen 1 tab 04/21/25 06:40 Oxycodone/Apap 5/325 Tablet PO 04/26/25 06:39 Q6H PRN PAIN SCALE 4-6 (Moderate Pantoprazole Sodium 40 mg 04/21/25 09:00 04/23/25 08:29 Pantoprazole Inj 40 Mg Vial IVP 05/21/25 08:59 40 mg QDAY CRIS Administration Quetiapine Fumarate 25 mg 04/21/25 21:00 04/22/25 20:24 Quetiapine Fumarate 25 Mg Tablet PO 05/21/25 20:59 25 mg HS CRIS Administration Zinc Sulfate 220 mg 04/23/25 09:00 04/23/25 08:30 Zinc Sulfate 220 Mg Capsule PO 05/07/25 08:59 220 mg QDAY CRIS Administration Plan 59-year-old female with diabetes (A1c 13.6), hypertension, asthma, and substance use was found unresponsive at home on 03/26/25, with GCS <8 and positive UDS for methamphetamine. Imaging revealed multiple embolic strokes, bilateral PEs, DVT, and splenic infarct. ICU course was complicated by septic shock, KINJAL requiring CRRT, rhabdomyolysis, and hemorrhagic transformation of strokes. Anticoagulation was withheld due to bleeding risk. She later developed a GI bleed requiring transfusion. After stabilization, she was transferred to [place] for neurosurgical evaluation, then to [place]. Embolic CVAs with Hemorrhagic Conversion Multiple embolic infarcts seen on MRI (bilateral occipital, frontal, parietal lobes). Later developed hemorrhagic transformation with SAH and new lesions on CT. ? No anticoagulation per neurology and neurosurgery recommendations ? Serial neuro exams and CT imaging as indicated ? Supportive care only; no surgical intervention indicated ? Rehabilitation needs assessment post-acute phase ? Consulted neurology, appreciate recommendations ? CT head 04/22 showed decrease in extent of hemorrhage and left posterior parietal infarct and stable minimal hemorrhage and right frontal infarct Agitation Patient noted to be agitated during previous hospital stay and per nursing staff. Patient required multiple units of haloperidol throughout the day due to slight agitation. ? Seroquel 25 mg nightly Acute Kidney Injury on CKD - CRRT / HD (resovled) Required CRRT, currently renal function stable with CR 1.2, GFR 52 ? Renally dose meds, avoid overdiuresis and NEPHROTOXINS ? Daily CMP DVT/PEs and Hypercoagulable State (PFO + ASA) Bilateral PEs and extensive LLE DVT. TTE showed vegetations; SYLVIE negative for IE but showed PFO and atrial septal aneurysm. Anticoagulation withheld due to high bleed risk. ? No anticoagulation per neurology and heme-onc, no antiplatelets per neurology ? IVC filter placed 03/31 ? Hypercoagulable workup initiated, results so far negative, needs outpatient follow-up ? Consulted heme-onc, appreciate recommendations Hemorrhagic Conversion + GI Bleed (Hb dropped to 5.6) On previous admission, had acute drop in Hgb from 8?[address] showed worsening brain hemorrhage. Likely UGIB; endoscopy deferred due to instability. Hgb stable at 8.7 ? Monitor CBC and hemodynamic stability ? GI follow-up if clinically stable ? Avoid anticoagulants and NSAIDs ? Per neurology and heme-onc recommendations, patient has not a candidate for anticoagulation ? GI consulted, appreciate recommendations Diabetic Management / Hyperglycemia (A1c 13.6) Glucose 550 on last admission. Likely poorly controlled diabetes; only reported taking METFORMIN at home. Glucose 99 currently. ? INSULIN sliding scale ? Accu-Cheks Chronic Ulcers / Necrotic Toes Chronic right leg ulcer improving. New necrosis of left great toe and fifth digit. ? Wound care consultation Possible Underlying Malignancy CT showed lung and splenic findings concerning for infarct vs malignancy. Elevated CA 19-9 and CA 15-3. IR and oncology deferred biopsy due to lack of accessible lesion. ? PET scan recommended outpatient ? Monitor for progression ? Follow up with oncology outpatient Health maintenance Diet: Cardiac, dysphagia 3 advanced GI prophylaxis: PROTONIX DVT prophylaxis: Contraindicated, SCD Antibiotics: Not indicated CODE STATUS: Full code Disposition: Transfer back for hemorrhagic stroke Case was discussed with attending physician, Dr. Toney and senior resident Dr. Garcia (PGY-2). Carlin Pate, PGY-1 Attending Provider Attestation/Addendum I attest that I was physically present for the evaluation, physical examination, lab and imaging review of the patient with the residents. I discussed the case with the residents and agree with the findings and plans of care as documented above. At bedside today, patient appears comfortable, alert and awake, able to answer questions and follow commands appropriately. Vital signs and lab results are stable. Discussed with gastroenterology regarding drop in hemoglobin during hospitalization prior to transfer to higher center, recommended further workup, will obtain GI consult. We will also try to reach out to IR for possible biopsy. Joe Toney MD
--- NOTE | 2025-04-23 14:20 | PD.RESPRO ---
Documentation for date of: 04/23/25 Subjective Subjective Interval history: Patient was seen and examined at the bedside. No acute overnight events were reported. No new acute neurological findings seen. Hemoglobin at 8.2. A1c 6.7. CT findings showed stable hemorrhage. Recommend to hold off antiplatelet agent. Right leg continues to appear weak however left leg has good strength. Exam Vital Signs Temp Pulse Resp BP Pulse Ox O2 Del Method 96.5 F L 83 16 140/71 H 96 Room Air 04/23/25 12:00 04/23/25 12:00 04/23/25 12:00 04/23/25 12:00 04/23/25 12:04/23/25 12:00 Narrative Exam Head: Normocephalic, atraumatic. Saturating well on room air. Eye: Slightly icteric. Bilateral corneal arcus noted. EOMI and PERRLA. Throat: Oral mucosa moist. Cardiovascular: Regular rate and rhythm, no murmur, normal peripheral perfusion, no edema. Respiratory: Lungs are clear to auscultation, respirations non labored, no crackles, no wheezing. Gastrointestinal: Soft, mildly distended, mild discomfort to palpation throughout. No guarding or rebound tenderness. Neuro: Alert and oriented x 2 not to time. Right leg weak power 3/5, left leg power is 5/5 Psychiatric: Appropriate mood and affect Skin: Ulcer of the L big toe over the proximal phalange with blackening of the distal portions of that toe. Right lower extremity edema below the ankle. Objective Labs 04/23/25 04:19 04/23/25 04:19 Labs: Laboratory Results - last 24 hr 04/22/25 04/23/25 14:51 04:19 WBC 9.6 RBC 2.83 L Hgb 8.4 L 8.2 L Hct 27.3 L 26.9 L MCV 95 MCH 29.0 MCHC 30.5 L RDW Std Deviation 58.4 H Plt Count 257 Neut % (Auto) 44 Lymph % (Auto) 42 [place] % (Auto) 8 Eos % (Auto) 3 Baso % (Auto) 1 Neut # (Auto) 4.2 Lymph # (Auto) 4.1 [place] # (Auto) 0.8 Eos # (Auto) 0.3 Baso # (Auto) 0.1 Immature Gran # (Auto) 0.12 H Absolute Nucleated RBC 0.00 Immature Gran % 1 H Nucleated RBC % 0 Sodium 143 Potassium 4.2 Chloride 111 H Carbon Dioxide 20.5 Anion Gap 12 BUN 8 L Creatinine 1.0 Estim Creat Clear Calc 63.9 eGFR > 60 BUN/Creatinine Ratio 8 L Glucose [address] Glu mg/dL 146 H Hemoglobin A1c 6.7 H Calculated Osmolality 283 Calcium 9.1 Corrected Calcium 9.6 Total Bilirubin 0.8 AST 23 ALT 9 L Alkaline Phosphatase 68 Total Protein 6.0 Albumin 3.4 L Globulin 2.6 Albumin/Globulin Ratio 1.3 Quality Measures Quality Measures VTE prophylaxis (scds) Assessment & Plan Assessment Current Active Medications: Generic Name Dose Route Start Last Admin Trade Name Freq PRN Reason Stop Dose Admin Acetaminophen 650 mg 04/21/25 06:40 Acetaminophen 325 Mg Tablet PO 05/21/25 06:39 Q6H PRN PAIN SCALE 1-3 (mild Acetaminophen 650 mg 04/21/25 06:40 Acetaminophen 325 Mg Tablet PO 05/21/25 06:39 Q6H PRN Fever >100.4 Hydrocodone Bitart/Acetaminophen 1 tab 04/21/25 06:40 04/23/25 04:50 Hydrocodone/Apap 10/325 Tab PO 04/26/25 06:39 1 tab Q4HR PRN Administration PAIN SCALE 7-10 (Severe Ascorbic Acid 500 mg 04/23/25 09:00 04/23/25 08:30 Ascorbic Acid 250 Mg Tablet PO 05/23/25 08:59 500 mg BID CRIS Administration Dextrose 25 ml 04/21/25 05:05 Dextrose 50%-Water Inj 50 Ml Syringe IV 05/21/25 05:04 Q15MIN PRN BG 50-70 responsive npo pt Dextrose 50 ml 04/21/25 05:05 Dextrose 50%-Water Inj 50 Ml Syringe IV 05/21/25 05:04 Q15MIN PRN BG <50 OR BG <70 & pt unresponsive Glucagon 1 mg 04/21/25 05:05 Glucagon Inj 1 Mg Vial IM Q15MIN PRN BG <70, and no IV access Insulin Human Lispro 0 unit 04/21/25 07:30 04/23/25 11:45 Insulin Lispro (Admelog) 1 Unit/0.01 Ml Unit SC 05/21/25 07:29 Not Given ACHS [facility] Protocol Labetalol HCl 10 mg 04/21/25 07:54 Labetalol Inj 5 Mg/Ml Vial 20 Ml IVP 05/21/25 07:51 Q2H PRN BP >180/85 Losartan Potassium 50 mg 04/22/25 15:30 04/23/25 08:30 Losartan Potassium 25 Mg Tablet PO 05/22/25 15:29 50 mg QDAY CRIS Administration Multivitamins 1 tab 04/23/25 09:00 04/23/25 08:30 Multivitamins Tablet PO 05/23/25 08:59 1 tab QDAY CRIS Administration Ondansetron HCl 4 mg 04/21/25 06:40 Ondansetron Inj 2 Mg/Ml Inj 2 Ml IVP 05/21/25 06:39 Q6H PRN NAUSEA OR VOMITING Protocol Oxycodone/Acetaminophen 1 tab 04/21/25 06:40 Oxycodone/Apap 5/325 Tablet PO 04/26/25 06:39 Q6H PRN PAIN SCALE 4-6 (Moderate Pantoprazole Sodium 40 mg 04/21/25 09:00 04/23/25 08:29 Pantoprazole Inj 40 Mg Vial IVP 05/21/25 08:59 40 mg QDAY CRIS Administration Quetiapine Fumarate 25 mg 04/21/25 21:00 04/22/25 20:24 Quetiapine Fumarate 25 Mg Tablet PO 05/21/25 20:59 25 mg HS CRIS Administration Zinc Sulfate 220 mg 04/23/25 09:00 04/23/25 08:30 Zinc Sulfate 220 Mg Capsule PO 05/07/25 08:59 220 mg QDAY CRIS Administration Plan This 59-year-old female with diabetes (A1c 13.6), hypertension, asthma, and substance use was found unresponsive at home on 03/26/25, with GCS <8 and positive UDS for methamphetamine. Imaging revealed multiple embolic strokes, bilateral PEs, DVT, and splenic infarct. ICU course was complicated by septic shock, KINJAL requiring CRRT, rhabdomyolysis, and hemorrhagic transformation of strokes. Anticoagulation was withheld due to bleeding risk. She later developed a GI bleed requiring transfusion. After stabilization, she was transferred to [place] for neurosurgical evaluation, then to [place]. Currently alert but disoriented, without focal deficits. #Embolic CVAs with Hemorrhagic Conversion Multiple embolic infarcts seen on MRI (bilateral occipital, frontal, parietal lobes). Later developed hemorrhagic transformation with SAH and new lesions on CT. Patient was agitated this afternoon and was given Seroquel and haloperidol due to acute agitation. ANCA screen negative. ANCA ANCA was negative. Complement levels were normal. A1c 13.6. Cryoglobulin qualitative positive. -Patient appears alert and oriented x 2 not to day. Patient's right leg appears swollen and weak however left leg continues to have however 5/5. - Repeat CT brain showed Decrease in extent of hemorrhage in the left posterior parietal infarct. Stable minimal hemorrhage in the right frontal infarct. Plan - Recommended to continue hold off antiplatelets. ? Serial neuro exams and CT imaging as indicated ? Supportive care only; no surgical intervention indicated ? Rehabilitation needs assessment post-acute phase #DVT/PEs and Hypercoagulable State (PFO + ASA) Bilateral PEs and extensive LLE DVT. TTE showed vegetations; SYLVIE negative for IE but showed PFO and atrial septal aneurysm. Anticoagulation withheld due to high bleed risk. ? No anticoagulation ? IVC filter placed 03/31 ? Hypercoagulable workup negative ? Might need cancer screening ? Avoid antiplatelet/anticoagulants until bleeding risk is reassessed #Acute Kidney Injury on CKD - CRRT / HD (resovled) #Hemorrhagic Conversion + GI Bleed (Hb dropped to 5.6) #Diabetic Management / Hyperglycemia (A1c 13.6) #Chronic Ulcers / Necrotic Toes #Possible Underlying Malignancy Rest of the management as per primary care team. Plan of care discussed with Neurologist,Dr Benito Jay MD PGY-3
--- NOTE | 2025-04-23 15:04 | PC.SS ---
Rounding: Pending Dr. Zamora reccs, DC plan [facility] pending auth
--- NOTE | 2025-04-23 15:29 | PC.SS ---
SS follow up note; SS faxed PT note to fax:[phone]. As requested by Awilda from [employer].
--- NOTE | 2025-04-23 22:16 | PD.IMCONS ---
HPI Data of Consult Requesting Physician: Joe Toney MD Primary Care Provider: Physician No Primary/Family Consult Narrative Reason for consult: Posthemorrhagic anemia History of present illness: 59 years old female consulted for low hemoglobin hematocrit and she is excepted in transfer from [facility] where she was transferred in first week of April for subarachnoid hemorrhage multiple embolic strokes in the occipital and the parietal lobe sepsis metabolic encephalopathy and hypoxic respiratory failure At that point I was consulted for a hemoglobin of 5.1 and hematocrit of 18.5 on 04/13/2025 My recommendation was not to do anything except transfusion till other medical issues are resolved Patient comes back with a low hemoglobin hematocrit and I have been consulted to get cc:: cc: Joe Toney MD Past Medical History Surgical History OTHER SURGICAL HX: As in the history of present illness Meds Home Medications and Allergies Allergies Allergy/AdvReac Type Severity Reaction Status Date / Time No Known Allergies Allergy Verified 03/26/25 11:03 Exam Vital Signs Temp Pulse Resp BP Pulse Ox O2 Del Method 97.6 F 84 18 145/81 H 99 Room Air 04/23/25 20:00 04/23/25 20:00 04/23/25 20:00 04/23/25 20:00 04/23/25 20:00 04/23/25 20:00 Constitutional Comments: Chronically ill-appearing Routine Respiratory Exam Comments: Normal to auscultation Results Labs 04/23/25 04:19 04/23/25 04:19 Labs: Short CBC 04/23/25 Range/Units 04:19 WBC 9.6 (3.6-11.0) Thou/mm3 Hgb 8.2 L (12.0-16.0) g/dL Hct 26.9 L (36.0-46.0) % Plt Count 257 (140-440) Thou/mm3 BMP 04/23/25 04:19 Sodium 143 Potassium 4.2 Chloride 111 H Carbon Dioxide 20.5 BUN 8 L Creatinine 1.0 Glucose 93 Calcium 9.1 Liver Function 04/23/25 Range/Units 04:19 Total Bilirubin 0.8 (0.3-1.2) mg/dL AST 23 (0-34) U/L ALT 9 L (10-49) U/L Alkaline Phosphatase 68 (46-116) U/L Albumin 3.4 L (3.5-5.0) gm/dL Assessment and Plan Additional Assessment & Plan Additional Plan: # Posthemorrhagic anemia requiring blood transfusion Initial presentation of hemoglobin of 5.1 and 18.5 hematocrit on 04/13/2025 Plan N.p.o. midnight tonight Fiberoptic esophagogastroduodenoscopy with possible therapeutic intervention possible biopsy under intravenous moderate sedation scheduled for tomorrow Further evaluation after above Other medical problems include Multiple embolic strokes into the occipital and parietal lobes with conversion into hemorrhage with subarachnoid hemorrhage Hypoxic respiratory failure Metabolic encephalopathy Thank you very much for the opportunity to participate in the care of this patient
[2025-04-24] VITALS (16 sets, daily range): BP systolic 126–175; BP diastolic 64–100; PULSE 66–93; RESP 13–20; TEMP 36.1–37.3; O2SAT 95–100; BMI 35.1
[2025-04-24 05:56] LABS: Basophils # (Auto) 0.1 Thou/mm3 (0.0-0.2); Basophils % (Auto) 1 % (0-2.5); Eosinophils # (Auto) 0.3 Thou/mm3 (0.0-0.5); Eosinophils % (Auto) 3 % (0-10); Hematocrit 25.1 % (36.0-46.0); Immature Granulocytes Auto 0.14 Thou/mm3 (0.00-0.00); Lymphocytes # (Auto) 3.2 Thou/mm3 (1.0-4.8); Lymphocytes % (Auto) 39 % (10-50); Mean Corpuscular HGB Conc 31.5 g/dl (31.0-37.0); Mean Corpuscular Hemoglobin 29.2 pg (25.0-35.0); Mean Corpuscular Volume 93 fL (80-100); Monocytes # (Auto) 0.7 Thou/mm3 (0.0-0.8); Monocytes % (Auto) 9 % (0-12); Neutrophils # (Auto) 3.9 Thou/mm3 (1.8-7.7); Neutrophils % (Auto) 47 % (37-80); Nucleated Red Blood Cell # 0.00 Thou/mm3 (0.00-0.00); Nucleated Red Blood Cell % 0 /100 WBC (0); Platelet Count 299 Thou/mm3 (140-440); RDW Standard Deviation 56.5 fL (36.4-46.3); Red Blood Count 2.71 Miln/mm3 (4.00-5.20); White Blood Count 8.2 Thou/mm3 (3.6-11.0)
[2025-04-24 05:57] LABS: Hemoglobin 7.9 g/dL (12.0-16.0)
[2025-04-24 06:25] LABS: Alanine Aminotransferase 11 U/L (10-49); Albumin, Serum 3.4 gm/dL (3.5-5.0); Albumin/Globulin Ratio 1.4 (1.2-2.2); Alkaline Phosphatase 65 U/L (46-116); Anion Gap 12 (7-16); Aspartate Amino Transferase 20 U/L (0-34); BUN/Creatinine Ratio 11 Ratio (12-20); Bilirubin,Total 0.7 mg/dL (0.3-1.2); Blood Urea Nitrogen 11 mg/dL (9-23); Calcium 8.9 mg/dL (8.3-10.6); Calcium (Corrected) 9.4 mg/dL (8.5-10.1); Carbon Dioxide 20.8 mMol/L (20.0-31.0); Chloride 109 mMol/L (98-107); Creatinine (Component) 1.0 mg/dL (0.6-1.3); Estimated Creatinine Clearance 63.9 mL/min (>60); Globulin 2.5 gm/dL (2.3-3.5); Glucose 103 mg/dL (74-106); Osmolality,Calculated 282 (275-295); Potassium 3.6 mMol/L (3.4-5.1); Sodium 142 mMol/L (136-145); Total Protein 5.9 gm/dL (5.7-8.2); eGFR > 60 See Note
[2025-04-24] MEDS: PANTOPRAZOLE 40 MG TABLET PO (08:34)
[2025-04-24] MEDS: MULTIVITAMINS TABLET 1 TAB PO (08:34)
[2025-04-24] MEDS: ZINC SULFATE 220 MG CAPSULE PO (08:34)
[2025-04-24] MEDS: ASCORBIC ACID 250 MG TABLET 500 MG PO ×2 (08:34→20:03)
[2025-04-24] MEDS: LOSARTAN POTASSIUM 25 MG TABLET 50 MG PO (08:34)
--- NOTE | 2025-04-24 09:03 | PC.SS ---
Follow up note: Scope with Dr. Tyler. [facility] is working on insurance authorization.
--- NOTE | 2025-04-24 11:10 | ESPR_ITS ---
Documentation for date of: 04/24/25 Subjective Subjective Interval history: Overnight patient was agitated again and required IV 5 mg Haldol. Patient seen and assessed in hospital bed alert oriented x 2 (person and place but unable to state the correct year). Patient's iron panel shows, iron deficiency anemia; repleted with IV iron. Patient is scheduled for colonoscopy with gastroenterology for suspicion of upper GI bleed. Increase patient's Seroquel to 50 mg at bedtime along with melatonin 3 mg at bedtime for nighttime agitation. Will continue monitor the patient for any acute changes. Exam Vital Signs Temp Pulse Resp BP Pulse Ox O2 Del Method 97.4 F 86 14 146/73 H 95 Room Air 04/24/25 08:00 04/24/25 08:34 04/24/25 08:00 04/24/25 08:34 04/24/25 08:00 04/24/25 08:00 Narrative Exam Physical Exam: General: Alert, no acute distress. Skin: Warm, dry, intact. Ulcer over left big toe and blackening of distal portions of left 2nd toe and 5th toe. Head: Normocephalic, atraumatic. Eye: Normal conjunctiva, PERRL. Cardiovascular: Regular rate and rhythm, no murmur, +S1/S2. Respiratory: Lungs are clear to auscultation, respirations unlabored, no crackles, no wheezing. Gastrointestinal: Soft, nontender, non-distended. No guarding or rebound tenderness. Extremities: Right lower extremity edema to ankles, no cyanosis, no clubbing. 2+ radial pulse bilaterally, 1+ pedal pulse bilaterally. Bandages over right leg with ulcer on right leg. Neuro: No focal deficits observed. Conversant, moving all extremities. No overt cerebellar signs/incoordination. Psychiatric: Cooperative, appropriate affect. Objective Labs 04/24/25 04:35 04/24/25 04:35 Labs: Laboratory Results - last 24 hr 04/24/25 04:35 WBC 8.2 RBC 2.71 L Hgb 7.9 L Hct 25.1 L MCV 93 MCH 29.2 MCHC 31.5 RDW Std Deviation 56.5 H Plt Count 299 D Neut % (Auto) 47 Lymph % (Auto) 39 [place] % (Auto) 9 Eos % (Auto) 3 Baso % (Auto) 1 Neut # (Auto) 3.9 Lymph # (Auto) 3.2 [place] # (Auto) 0.7 Eos # (Auto) 0.3 Baso # (Auto) 0.1 Immature Gran # (Auto) 0.14 H Absolute Nucleated RBC 0.00 Immature Gran % 2 H Nucleated RBC % 0 Sodium 142 Potassium 3.6 D Chloride 109 H Carbon Dioxide 20.8 Anion Gap 12 BUN 11 Creatinine 1.0 Estim Creat Clear Calc 63.9 eGFR > 60 BUN/Creatinine Ratio 11 L Glucose 103 Calculated Osmolality 282 Calcium 8.9 Corrected Calcium 9.4 Total Bilirubin 0.7 AST 20 ALT 11 Alkaline Phosphatase 65 Total Protein 5.9 Albumin 3.4 L Globulin 2.5 Albumin/Globulin Ratio 1.4 Quality Measures Quality Measures VTE prophylaxis (scds) Assessment & Plan Assessment Current Active Medications: Generic Name Dose Route Start Last Admin Trade Name Freq PRN Reason Stop Dose Admin Acetaminophen 650 mg 04/21/25 06:40 Acetaminophen 325 Mg Tablet PO 05/21/25 06:39 Q6H PRN PAIN SCALE 1-3 (mild Acetaminophen 650 mg 04/21/25 06:40 Acetaminophen 325 Mg Tablet PO 05/21/25 06:39 Q6H PRN Fever >100.4 Hydrocodone Bitart/Acetaminophen 1 tab 04/21/25 06:40 04/23/25 20:15 Hydrocodone/Apap 10/325 Tab PO 04/26/25 06:39 1 tab Q4HR PRN Administration PAIN SCALE 7-10 (Severe Ascorbic Acid 500 mg 04/23/25 09:00 04/24/25 08:34 Ascorbic Acid 250 Mg Tablet PO 05/23/25 08:59 500 mg BID CRIS Administration Dextrose 25 ml 04/21/25 05:05 Dextrose 50%-Water Inj 50 Ml Syringe IV 05/21/25 05:04 Q15MIN PRN BG 50-70 responsive npo pt Dextrose 50 ml 04/21/25 05:05 Dextrose 50%-Water Inj 50 Ml Syringe IV 05/21/25 05:04 Q15MIN PRN BG <50 OR BG <70 & pt unresponsive Glucagon 1 mg 04/21/25 05:05 Glucagon Inj 1 Mg Vial IM Q15MIN PRN BG <70, and no IV access Insulin Human Lispro 0 unit 04/21/25 07:30 04/24/25 07:49 Insulin Lispro (Admelog) 1 Unit/0.01 Ml Unit SC 05/21/25 07:29 Not Given ACHS CRIS Protocol Labetalol HCl 10 mg 04/21/25 07:54 Labetalol Inj 5 Mg/Ml Vial 20 Ml IVP 05/21/25 07:51 Q2H PRN BP >180/85 Losartan Potassium 50 mg 04/22/25 15:30 04/24/25 08:34 Losartan Potassium 25 Mg Tablet PO 05/22/25 15:29 50 mg QDAY CRIS Administration Melatonin 3 mg 04/24/25 21:00 Melatonin 3 Mg Tablet PO 05/24/25 20:59 HS [facility] Multivitamins 1 tab 04/23/25 09:00 04/24/25 08:34 Multivitamins Tablet PO 05/23/25 08:59 1 tab QDAY CRIS Administration Ondansetron HCl 4 mg 04/21/25 06:40 Ondansetron Inj 2 Mg/Ml Inj 2 Ml IVP 05/21/25 06:39 Q6H PRN NAUSEA OR VOMITING Protocol Oxycodone/Acetaminophen 1 tab 04/21/25 06:40 Oxycodone/Apap 5/325 Tablet PO 04/26/25 06:39 Q6H PRN PAIN SCALE 4-6 (Moderate Pantoprazole Sodium 40 mg 04/24/25 09:00 04/24/25 08:34 Pantoprazole 40 Mg Tablet PO 05/24/25 08:59 40 mg QDAY CRIS Administration Quetiapine Fumarate 50 mg 04/24/25 21:00 Quetiapine Fumarate 25 Mg Tablet PO 05/24/25 20:59 HS [facility] Zinc Sulfate 220 mg 04/23/25 09:00 04/24/25 08:34 Zinc Sulfate 220 Mg Capsule PO 05/07/25 08:59 220 mg QDAY CRIS Administration Plan 59-year-old female with diabetes (A1c 13.6), hypertension, asthma, and substance use was found unresponsive at home on 03/26/25, with GCS <8 and positive UDS for methamphetamine. Imaging revealed multiple embolic strokes, bilateral PEs, DVT, and splenic infarct. ICU course was complicated by septic shock, KINJAL requiring CRRT, rhabdomyolysis, and hemorrhagic transformation of strokes. Anticoagulation was withheld due to bleeding risk. She later developed a GI bleed requiring transfusion. After stabilization, she was transferred to [place] for neurosurgical evaluation, then to [place]. #Upper GI Bleed Prior to patient being transferred to a higher level of care, there was concern about upper GI bleed as the patient's initial hemoglobin was 5.7 with positive FOBT. - GoLytely prep - GI consulted, appreciate recommendations - Clear liquid diet #Embolic CVAs with Hemorrhagic Conversion Multiple embolic infarcts seen on MRI (bilateral occipital, frontal, parietal lobes). Later developed hemorrhagic transformation with SAH and new lesions on CT. ? No anticoagulation per neurology and neurosurgery recommendations ? Serial neuro exams and CT imaging as indicated ? Supportive care only; no surgical intervention indicated ? Rehabilitation needs assessment post-acute phase ? Consulted neurology, appreciate recommendations ? CT head 04/22 showed decrease in extent of hemorrhage and left posterior parietal infarct and stable minimal hemorrhage and right frontal infarct #Agitation Patient noted to be agitated during previous hospital stay and per nursing staff. Patient required multiple units of haloperidol throughout the day due to slight agitation. ? Increased Seroquel to 50 mg nightly - Added Melatonin 3mg HS #Acute Kidney Injury on CKD - CRRT / HD (resovled) Required CRRT, currently renal function stable with CR 1.2, GFR 52 ? Renally dose meds, avoid overdiuresis and NEPHROTOXINS ? Daily CMP #DVT/PEs and Hypercoagulable State (PFO + ASA) Bilateral PEs and extensive LLE DVT. TTE showed vegetations; SYLVIE negative for IE but showed PFO and atrial septal aneurysm. Anticoagulation withheld due to high bleed risk. ? No anticoagulation per neurology and heme-onc, no antiplatelets per neurology ? IVC filter placed 03/31 ? Hypercoagulable workup initiated, results so far negative, needs outpatient follow-up ? Consulted heme-onc, appreciate recommendations #Hemorrhagic Conversion + GI Bleed (Hb dropped to 5.6) On previous admission, had acute drop in Hgb from 8?[address] showed worsening brain hemorrhage. Likely UGIB; endoscopy deferred due to instability. Hgb stable at 8.7 ? Monitor CBC and hemodynamic stability ? GI follow-up if clinically stable ? Avoid anticoagulants and NSAIDs ? Per neurology and heme-onc recommendations, patient has not a candidate for anticoagulation ? GI consulted, appreciate recommendations #Diabetic Management / Hyperglycemia (A1c 13.6) Glucose 550 on last admission. Likely poorly controlled diabetes; only reported taking METFORMIN at home. Glucose 99 currently. ? INSULIN sliding scale ? Accu-Cheks #Chronic Ulcers / Necrotic Toes Chronic right leg ulcer improving. New necrosis of left great toe and fifth digit. ? Wound care consultation #Possible Underlying Malignancy CT showed lung and splenic findings concerning for infarct vs malignancy. Elevated CA 19-9 and CA 15-3. IR and oncology deferred biopsy due to lack of accessible lesion. ? PET scan recommended outpatient ? Monitor for progression ? Follow up with oncology outpatient Health maintenance Diet: Cardiac, dysphagia 3 advanced GI prophylaxis: PROTONIX DVT prophylaxis: Contraindicated, SCD Antibiotics: Not indicated CODE STATUS: Full code Disposition: Pending GI workup Patient seen and assessed with attending Dr. Feng Garcia, PGY-2 Internal Medicine - [facility] Attending Provider Attestation/Addendum I attest that I was physically present for the evaluation, physical examination, lab and imaging review of the patient with the residents. I discussed the case with the residents and agree with the findings and plans of care as documented above. At bedside today, patient is alert and awake but appears tired compared to yesterday. Overnight, she had episode of agitation and received Haldol. We will increase her send 50 mg at bedtime. Vital signs are stable except for mild hypertension. Labile hemoglobin at 7.9 today. Received potassium repletion this morning. We will also order iron infusion as patient noted to have low iron levels. Patient is planned for EGD today with GI. Joe Toney MD
[2025-04-24] MEDS: FERRIC SOD GLUC INJ 125 MG in SODIUM CHLORIDE 0.9% 100 ML 110 MG IV (15:05)
--- NOTE | 2025-04-24 16:19 | PC.SS ---
SS received call from Katerina Mayen from [facility] who states they have obtained insurance authorization. Pt is waiting for EGD today. Katerina Mayen states they can accept pt over the weekend.
[2025-04-24] MEDS: SODIUM CHLORIDE 0.9% 500 ML 500 ML 20 ML IV (16:31)
--- NOTE | 2025-04-24 16:48 | PC.NURSE ---
Patient was taken to OR at this time for EGD.
--- NOTE | 2025-04-24 17:16 | SUR.OPER ---
1712 Using sterile technique-TAIWO BE, placed a 16fr hernandez catheter. Yellow urine return seen. Hernandez secured to right thigh.
--- NOTE | 2025-04-24 17:20 | SUR.PHASEI ---
4682 patient arrived to recovery, drowsy on oxygen 3L via nasal cannula, breathing unlabored, vital signs stable, denies pain and nausea, 16F hernandez catheter in place with leg secure; draining to gravity, report received from Mamie BE
--- NOTE | 2025-04-24 18:02 | SUR.PHASEI ---
175 Report given to Sole BE, patient meets discharge criteria from recovery, awake and talking to staff, on oxygen 1L via nasal cannula, breathing unlabored, vital signs stable, eating ice chips; tolerating well, denies nausea 1801 Patient transported via gurney to room 367 without incident, patient able to transfer herself from [facility] to bed, Sully BE and BUTTONHOLE FACER present in room with tele-sitter active, staff remained with patient when this song writer left patients room.
--- NOTE | 2025-04-24 18:30 | PC.NURSE ---
Patient returned to floor at this time. EGD completed, see report. Patient arrived to unit with no IV's and hernandez catheter in place. Patient denies pain.
--- NOTE | 2025-04-24 18:58 | PC.NURSE ---
Report received, pt s/t p EGD plan for colonoscopy, currently no IV access Melisa medical management specialist in room attempting.
[2025-04-24] MEDS: NA SU/NAHCO3/KC/PEG (Golytely) 4,000 ML BTL 4000 ML PO (19:28)
--- NOTE | 2025-04-24 19:34 | PC.NURSE ---
Provided pt Luisly drank half cup currently will not drink stated, I don't want to be here I want to get out of here already, Educated pt, pt stated she will later.
--- NOTE | 2025-04-24 19:42 | PC.NURSE ---
Avasure alarm sounded pt trying to get out of bed, pt states needs to poop, provided pt with bedpan.
[2025-04-24] MEDS: MELATONIN 3 MG TABLET PO (20:03)
--- NOTE | 2025-04-24 20:07 | PC.NURSE ---
Multiple times avasure alarm sounded pt trying to get out of bed, stating, I want to get the fuck out of here, I hate hospitals, I don't want to be here!! placed pt back into bed and provided with phone to call mother pt threw phone on floor broke phone, yelling I want to call my mom!!! new phone found pt utilized, took NOC meds. Danieleasure remains in place.
--- NOTE | 2025-04-24 20:37 | PC.NURSE ---
Dr. Zamora in to see pt, informed pt will not drink Golytley drank one cup then threw the other cup on ground, spoke with pt, pt agrees to drink, will continue to provide.
--- NOTE | 2025-04-24 20:38 | PC.NURSE ---
Pt yelling adamant that she can get up to use commode, Attempted x3 assist up to commode pt very unsteady/weak difficult to get on commode. Once on x1 bowel movement, pt unable to stand to transfer self to bed, stood sat usp on bed, pt needed to be assisted x2 back onto bed. Informed pt currently not safe to utilize commode when too weak and unable to bear weight, pt statd, ok ok ok.... cover me up.
--- NOTE | 2025-04-24 21:20 | PC.NURSE ---
Attempts made to have pt drink Golytely, pt will not drink, threw on bedding.
--- NOTE | 2025-04-24 23:54 | ESPR_ITS ---
Documentation for date of: 04/24/25 Exam - Neurology Vital Signs Temp Pulse Resp BP Pulse Ox O2 Del Method O2 Flow Rate 97.6 F 66 19 148/64 H 100 Room Air 1 04/24/25 20:00 04/24/25 21:30 04/24/25 20:00 04/24/25 20:00 04/24/25 20:00 04/24/25 20:00 04/24/25 17:50 Objective Labs 04/24/25 04:35 04/24/25 04:35 Labs: Laboratory Results - last 24 hr 04/24/25 04:35 WBC 8.2 RBC 2.71 L Hgb 7.9 L Hct 25.1 L MCV 93 MCH 29.2 MCHC 31.5 RDW Std Deviation 56.5 H Plt Count 299 D Neut % (Auto) 47 Lymph % (Auto) 39 [place] % (Auto) 9 Eos % (Auto) 3 Baso % (Auto) 1 Neut # (Auto) 3.9 Lymph # (Auto) 3.2 [place] # (Auto) 0.7 Eos # (Auto) 0.3 Baso # (Auto) 0.1 Immature Gran # (Auto) 0.14 H Absolute Nucleated RBC 0.00 Immature Gran % 2 H Nucleated RBC % 0 Sodium 142 Potassium 3.6 D Chloride 109 H Carbon Dioxide 20.8 Anion Gap 12 BUN 11 Creatinine 1.0 Estim Creat Clear Calc 63.9 eGFR > 60 BUN/Creatinine Ratio 11 L Glucose 103 Calculated Osmolality 282 Calcium 8.9 Corrected Calcium 9.4 Total Bilirubin 0.7 AST 20 ALT 11 Alkaline Phosphatase 65 Total Protein 5.9 Albumin 3.4 L Globulin 2.5 Albumin/Globulin Ratio 1.4
[2025-04-25] VITALS (10 sets, daily range): BP systolic 132–151; BP diastolic 60–95; PULSE 69–85; RESP 17–20; TEMP 36.2–36.7; O2SAT 95–98
[2025-04-25 06:05] LABS: Basophils # (Auto) 0.1 Thou/mm3 (0.0-0.2); Basophils % (Auto) 1 % (0-2.5); Eosinophils # (Auto) 0.3 Thou/mm3 (0.0-0.5); Eosinophils % (Auto) 3 % (0-10); Hematocrit 28.7 % (36.0-46.0); Hemoglobin 8.9 g/dL (12.0-16.0); Immature Granulocytes Auto 0.14 Thou/mm3 (0.00-0.00); Lymphocytes # (Auto) 4.5 Thou/mm3 (1.0-4.8); Lymphocytes % (Auto) 48 % (10-50); Mean Corpuscular HGB Conc 31.0 g/dl (31.0-37.0); Mean Corpuscular Hemoglobin 29.5 pg (25.0-35.0); Mean Corpuscular Volume 95 fL (80-100); Monocytes # (Auto) 0.7 Thou/mm3 (0.0-0.8); Monocytes % (Auto) 8 % (0-12); Neutrophils # (Auto) 3.6 Thou/mm3 (1.8-7.7); Neutrophils % (Auto) 39 % (37-80); Nucleated Red Blood Cell # 0.00 Thou/mm3 (0.00-0.00); Nucleated Red Blood Cell % 0 /100 WBC (0); Platelet Count 347 Thou/mm3 (140-440); RDW Standard Deviation 59.3 fL (36.4-46.3); Red Blood Count 3.02 Miln/mm3 (4.00-5.20); White Blood Count 9.3 Thou/mm3 (3.6-11.0)
[2025-04-25 06:29] LABS: Alanine Aminotransferase 15 U/L (10-49); Albumin, Serum 3.7 gm/dL (3.5-5.0); Albumin/Globulin Ratio 1.3 (1.2-2.2); Alkaline Phosphatase 73 U/L (46-116); Anion Gap 11 (7-16); Aspartate Amino Transferase 29 U/L (0-34); BUN/Creatinine Ratio 9 Ratio (12-20); Bilirubin,Total 0.8 mg/dL (0.3-1.2); Blood Urea Nitrogen 9 mg/dL (9-23); Calcium 9.4 mg/dL (8.3-10.6); Calcium (Corrected) 9.6 mg/dL (8.5-10.1); Carbon Dioxide 23.6 mMol/L (20.0-31.0); Chloride 109 mMol/L (98-107); Creatinine (Component) 1.0 mg/dL (0.6-1.3); Estimated Creatinine Clearance 62.6 mL/min (>60); Globulin 2.8 gm/dL (2.3-3.5); Glucose 97 mg/dL (74-106); Magnesium 1.3 mg/dL (1.6-2.6); Osmolality,Calculated 285 (275-295); Phosphorous 4.5 mg/dL (2.4-5.1); Potassium 4.8 mMol/L (3.4-5.1); Sodium 144 mMol/L (136-145); Total Protein 6.5 gm/dL (5.7-8.2); eGFR > 60 See Note
--- NOTE | 2025-04-25 06:40 | PC.NURSE ---
Pt has been attempting to get out of bed pulling at catheter screaming, avasure alarms sounding. Pt is confused, attempts made to reorient pt, pt contines to try to get up out of bed despite being educated. Contacted and spoke with Dr. Hamilton and Dr. Stewart in regards to pt behavior MDs to look into chart and assess pt.
--- NOTE | 2025-04-25 06:42 | PC.NURSE ---
Dr. Hamilton and Dr. Stewart at bedside to assess pt, at this point pt at bedside, very upset began to be verbally aggressive towards MD's, MDs request security to remove , contacted security.
--- NOTE | 2025-04-25 06:55 | PC.NURSE ---
Security here speaking with pt , pt yelling out she is going to leave and will not stay here if her leaves, spoke with day charge, to stay at this time, educated on not being verbally aggressive towards staff.
--- NOTE | 2025-04-25 07:05 | PC.NURSE ---
Report given to Adore BE, informed of pt refusing to drink Golytley throughout the night with instances of throwing cup on ground. RN to follow up with pt and Dr. Zamora.
--- NOTE | 2025-04-25 07:18 | PC.NURSE ---
DR. JIMENEZ MADE AWARE PT WANTS TO PROCEED WITH COLONOSCOPY, CONTINUE GOLYTELY, CLEAR LIQUID DIET AND NPO AFTER PT IS CLEAR.
[2025-04-25] MEDS: MULTIVITAMINS TABLET 1 TAB PO (09:15)
[2025-04-25] MEDS: LOSARTAN POTASSIUM 25 MG TABLET 50 MG PO (09:16)
[2025-04-25] MEDS: ASCORBIC ACID 250 MG TABLET 500 MG PO ×2 (09:16→20:39)
[2025-04-25] MEDS: ZINC SULFATE 220 MG CAPSULE PO (09:16)
[2025-04-25] MEDS: Magnesium Sulfate 4 GM Ivpb 4 GM/50 ML BAG IV ×2 (09:17→09:23)
[2025-04-25] MEDS: PANTOPRAZOLE 40 MG TABLET PO (09:20)
[2025-04-25] MEDS: FERRIC SOD GLUC INJ 125 MG in SODIUM CHLORIDE 0.9% 100 ML 110 MG IV (10:06)
--- NOTE | 2025-04-25 13:38 | PC.NURSE ---
DR. SONG MADE AWARE PT NOT DRINKING GOLYTELY EVEN AFTER ENCOURAGING HER. NO NEW ORDERS MD TO CONTACT DR. JIMENEZ AND GET RECOMMENDATIONS.
--- NOTE | 2025-04-25 15:14 | PC.NURSE ---
CANCEL COLONOSCOPY PER DR. JIMENEZ AND PT CAN RESUME DIET TOLERATED.
--- NOTE | 2025-04-25 15:18 | PC.SS ---
Addendum entered by Mary Andres 04/25/25 16:45: [facility] confirmed patient can be accepted today. [employer] [phone] contacted to obtain transportation auth, reservation #[id number] provided. [phone], transportation placed on willcall until [employer] provides them with auth. Edward was instructed to contact after [phone] at [phone] if any changes or updates for transportation. Original Note: SS informed during rounding patient may discharge to [facility] if colonscopy is completed today, 04/25/25. SS attempted to connect with [facility] [phone] to confirm if patient can be accepted at [facility] today, confirmation pending.
--- NOTE | 2025-04-25 15:47 | ESPR_ITS ---
Documentation for date of: 04/25/25 Subjective Subjective Interval history: No acute overnight events. Patient denies any other complaints. Vitals are stable. Labs done this morning showed stable hemoglobin, 8.9 and renal functions are stable. Patient got EGD yesterday that showed gastritis and erythematous duodenopathy. Colonoscopy is deferred at this point and recommended to follow-up on the outpatient basis as the hemoglobin is stable over the last few days. Pending placement. Anticipate discharge in the next 24 hours to SNF Exam Vital Signs Temp Pulse Resp BP Pulse Ox O2 Del Method O2 Flow Rate 97.4 F 75 17 143/70 H 96 Room Air 1 04/25/25 13:20 04/25/25 13:20 04/25/25 13:20 04/25/25 13:20 04/25/25 13:20 04/25/25 13:20 04/24/25 17:50 Narrative Exam General: Awake. HEENT: Normocephalic, atraumatic, mucous membranes moist. Heart: Regular rate and rhythm, no murmurs. Lungs: Clear to auscultation with no wheezing or crackles. Abdomen: Soft, nondistended, nontender, positive bowel sounds. ?No guarding or rebound tenderness. Neurologic: Alert and oriented x3, no gross neurological deficit, and patient able to move all 4 extremities. Extremities: Noted swelling and ulcer in the right lower extremity Skin: Ulcer on right lower extremity Objective Labs 04/25/25 05:33 04/25/25 05:33 Labs: Laboratory Results - last 24 hr 04/25/25 05:33 WBC 9.3 RBC 3.02 L Hgb 8.9 L Hct 28.7 L MCV 95 MCH 29.5 MCHC 31.0 RDW Std Deviation 59.3 H Plt Count 347 D Neut % (Auto) 39 Lymph % (Auto) 48 Dawes % (Auto) 8 Eos % (Auto) 3 Baso % (Auto) 1 Neut # (Auto) 3.6 Lymph # (Auto) 4.5 Dawes # (Auto) 0.7 Eos # (Auto) 0.3 Baso # (Auto) 0.1 Immature Gran # (Auto) 0.14 H Absolute Nucleated RBC 0.00 Immature Gran % 2 H Nucleated RBC % 0 Sodium 144 Potassium 4.8 D Chloride 109 H Carbon Dioxide 23.6 Anion Gap 11 BUN 9 Creatinine 1.0 Estim Creat Clear Calc 62.6 eGFR > 60 BUN/Creatinine Ratio 9 L Glucose 97 Calculated Osmolality 285 Calcium 9.4 Corrected Calcium 9.6 Phosphorus 4.5 Magnesium 1.3 L Total Bilirubin 0.8 AST 29 ALT 15 Alkaline Phosphatase 73 Total Protein 6.5 Albumin 3.7 Globulin 2.8 Albumin/Globulin Ratio 1.3 Quality Measures Quality Measures VTE prophylaxis (scds) Assessment & Plan Assessment Current Active Medications: Generic Name Dose Route Start Last Admin Trade Name Freq PRN Reason Stop Dose Admin Acetaminophen 650 mg 04/21/25 06:40 Acetaminophen 325 Mg Tablet PO 05/21/25 06:39 Q6H PRN PAIN SCALE 1-3 (mild Acetaminophen 650 mg 04/21/25 06:40 Acetaminophen 325 Mg Tablet PO 05/21/25 06:39 Q6H PRN Fever >100.4 Hydrocodone Bitart/Acetaminophen 1 tab 04/21/25 06:40 04/23/25 20:15 Hydrocodone/Apap 10/325 Tab PO 04/26/25 06:39 1 tab Q4HR PRN Administration PAIN SCALE 7-10 (Severe Ascorbic Acid 500 mg 04/23/25 09:00 04/25/25 09:16 Ascorbic Acid 250 Mg Tablet PO 05/23/25 08:59 500 mg BID CRIS Administration Dextrose 25 ml 04/21/25 05:05 Dextrose 50%-Water Inj 50 Ml Syringe IV 05/21/25 05:04 Q15MIN PRN BG 50-70 responsive npo pt Dextrose 50 ml 04/21/25 05:05 Dextrose 50%-Water Inj 50 Ml Syringe IV 05/21/25 05:04 Q15MIN PRN BG <50 OR BG <70 & pt unresponsive Glucagon 1 mg 04/21/25 05:05 Glucagon Inj 1 Mg Vial IM Q15MIN PRN BG <70, and no IV access Ferric Sodium Gluconate 125 mg 110 mls @ 110 mls/hr 04/24/25 14:30 04/25/25 10:06 / Sodium Chloride IV 05/02/25 14:29 110 mls/hr QDAY CRIS Administration Sodium Chloride 500 mls @ 20 mls/hr 04/24/25 16:28 04/24/25 16:31 Ns IV 04/25/25 16:27 20 mls/hr .Q24H ONE Administration Insulin Human Lispro 0 unit 04/21/25 07:30 04/25/25 11:43 Insulin Lispro (Admelog) 1 Unit/0.01 Ml Unit SC 05/21/25 07:29 Not Given ACHS CRIS Protocol Labetalol HCl 10 mg 04/21/25 07:54 Labetalol Inj 5 Mg/Ml Vial 20 Ml IVP 05/21/25 07:51 Q2H PRN BP >180/85 Losartan Potassium 50 mg 04/25/25 09:00 04/25/25 09:16 Losartan Potassium 25 Mg Tablet PO 05/25/25 08:59 50 mg QDAY CRIS Administration Melatonin 3 mg 04/24/25 21:00 04/24/25 20:03 Melatonin 3 Mg Tablet PO 05/24/25 20:59 3 mg HS CRIS Administration Multivitamins 1 tab 04/23/25 09:00 04/25/25 09:15 Multivitamins Tablet PO 05/23/25 08:59 1 tab QDAY CRIS Administration Ondansetron HCl 4 mg 04/21/25 06:40 Ondansetron Inj 2 Mg/Ml Inj 2 Ml IVP 05/21/25 06:39 Q6H PRN NAUSEA OR VOMITING Protocol Oxycodone/Acetaminophen 1 tab 04/21/25 06:40 Oxycodone/Apap 5/325 Tablet PO 04/26/25 06:39 Q6H PRN PAIN SCALE 4-6 (Moderate Pantoprazole Sodium 40 mg 04/24/25 09:00 04/25/25 09:20 Pantoprazole 40 Mg Tablet PO 05/24/25 08:59 40 mg QDAY CRIS Administration Polyethylene Glycol/Electrolytes 4,000 ml 04/24/25 17:27 Na Melgar/Nahco3/Krzysztof/Peg (Golytely) 4,000 Ml Btl PO 04/25/25 17:26 X1 PRN SEE COMMENTS Quetiapine Fumarate 50 mg 04/24/25 21:00 04/24/25 20:03 Quetiapine Fumarate 25 Mg Tablet PO 05/24/25 20:59 50 mg HS CRIS Administration Zinc Sulfate 220 mg 04/23/25 09:00 04/25/25 09:16 Zinc Sulfate 220 Mg Capsule PO 05/07/25 08:59 220 mg QDAY CRIS Administration Plan 59-year-old female with diabetes (A1c 13.6), hypertension, asthma, and substance use was found unresponsive at home on 03/26/25, with GCS <8 and positive UDS for methamphetamine. Imaging revealed multiple embolic strokes, bilateral PEs, DVT, and splenic infarct. ICU course was complicated by septic shock, KINJAL requiring CRRT, rhabdomyolysis, and hemorrhagic transformation of strokes. Anticoagulation was withheld due to bleeding risk. She later developed a GI bleed requiring transfusion. After stabilization, she was transferred to [place] for neurosurgical evaluation, then to [place]. #Upper GI Bleed, ruled out Prior to patient being transferred to a higher level of care, there was concern about upper GI bleed as the patient's initial hemoglobin was 5.7 with positive FOBT. -UGI Endoscopy done - no significant abnormality #Embolic CVAs with Hemorrhagic Conversion Multiple embolic infarcts seen on MRI (bilateral occipital, frontal, parietal lobes). Later developed hemorrhagic transformation with SAH and new lesions on CT. ? No anticoagulation per neurology and neurosurgery recommendations ? Serial neuro exams and CT imaging as indicated ? Supportive care only; no surgical intervention indicated ? Rehabilitation needs assessment post-acute phase ? Consulted neurology, appreciate recommendations ? CT head 04/22 showed decrease in extent of hemorrhage and left posterior parietal infarct and stable minimal hemorrhage and right frontal infarct #Agitation, resolved Patient noted to be agitated during previous hospital stay and per nursing staff. Patient required multiple units of haloperidol throughout the day due to slight agitation. ? Increased Seroquel to 50 mg nightly - Added Melatonin 3mg HS #Acute Kidney Injury on CKD - CRRT / HD (resovled) Required CRRT, currently renal function stable with CR 1.2, GFR 52 ? Renally dose meds, avoid overdiuresis and NEPHROTOXINS ? Daily CMP #DVT/PEs and Hypercoagulable State (PFO + ASA) Bilateral PEs and extensive LLE DVT. TTE showed vegetations; SYLVIE negative for IE but showed PFO and atrial septal aneurysm. Anticoagulation withheld due to high bleed risk. ? No anticoagulation per neurology and heme-onc, no antiplatelets per neurology ? IVC filter placed 03/31 ? Hypercoagulable workup initiated, results so far negative, needs outpatient follow-up ? Consulted heme-onc, appreciate recommendations #Hemorrhagic Conversion + GI Bleed (Hb dropped to 5.6) On previous admission, had acute drop in Hgb from 8?[address] showed worsening brain hemorrhage. Likely UGIB; endoscopy deferred due to instability. Hgb stable at 8.7 ? Monitor CBC and hemodynamic stability ? GI follow-up if clinically stable ? Avoid anticoagulants and NSAIDs ? Per neurology and heme-onc recommendations, patient has not a candidate for anticoagulation ? GI consulted, appreciate recommendations #Diabetic Management / Hyperglycemia (A1c 13.6) Glucose 550 on last admission. Likely poorly controlled diabetes; only reported taking METFORMIN at home. Glucose 99 currently. ? INSULIN sliding scale ? Accu-Cheks #Chronic Ulcers / Necrotic Toes Chronic right leg ulcer improving. New necrosis of left great toe and fifth digit. ? Wound care consultation #Possible Underlying Malignancy CT showed lung and splenic findings concerning for infarct vs malignancy. Elevated CA 19-9 and CA 15-3. IR and oncology deferred biopsy due to lack of accessible lesion. ? PET scan recommended outpatient ? Monitor for progression ? Follow up with oncology outpatient Health maintenance Diet: Cardiac, dysphagia 3 advanced GI prophylaxis: PROTONIX DVT prophylaxis: Contraindicated, SCD Antibiotics: Not indicated CODE STATUS: Full code Disposition: Pending placement Patient plan of care was discussed with the attending physician, Dr. Feng Anna, PGY2 Attending Provider Attestation/Addendum I attest that I was physically present for the evaluation, physical examination, lab and imaging review of the patient with the residents. I discussed the case with the residents and agree with the findings and plans of care as documented above. At bedside today, patient appears comfortable and denies any new complaints. Refused GoLytely preparation for colonoscopy. Discussed with gastroenterology, agreed on performing colonoscopy as an outpatient as patient's hemoglobin has been stable and no signs of new bleeding. Rest of the vital signs and lab results are stable as well. Repleted magnesium. Patient awaiting placement to SNF. Joe Toney MD
--- NOTE | 2025-04-25 16:00 | ESDS_ITS ---
Planned Discharge Date 04/27/25 DS: Providers Provider Date of admission: 04/21/25 00:05 Primary care physician: Physician No Primary/Family Admitting Provider: Jose Sexton MD Attending Provider on Admission: Joe Toney MD Consults: 04/21/25 06:51 Referral Nutritional Services Routine Comment: Referral Nutritional Services Routine Comment: Referral Wound Care Routine Comment: Referral Wound Care Routine Comment: multiple wounds , R and L buttocks. Left heel 04/21/25 06:53 Referral Nutritional Services Routine Comment: Referral Wound Care Routine Comment: right ordonez - left great toe PINKY TOE 04/21/25 07:10 Referral Physical Therapy Routine Comment: Physician Instructions: Referral Speech Therapy Routine Comment: 04/21/25 10:19 Consult to Neurology / Tele-Neurology Routine Comment: Recs for embolic strokes w/ GI/brain bleeding Consulting Provider: Jose Oliver 04/21/25 10:24 Consult to Oncology Routine Comment: Recs for hypercoaguable state, prior consult Consulting Provider: Malik Krishna 04/21/25 16:11 Referral Registered Dietitian Routine Comment: Multiple SDTI to Feet 04/23/25 14:27 Consult to Gastroenterology Routine Comment: Previous consult for H/H drop Consulting Provider: Constanza Zamora Attending Provider on DC: Vj Anna MD Discharging Provider: Vj Anna MD DS: Diagnosis Problem List Completed Was Problem List Reviewed/Reconciled?: Yes Hospital Course Hospital Course Hospital course: Patient is a 59-year-old female with past medical history of diabetes mellitus, hypertension, asthma, chronic right leg ulcer who was brought to the ED due to altered mental starts. Patient was found unresponsive by her family members with pinpoint pupils. Patient was down for at least 7 hours. She received Narcan by EMS with some improvement of mentation. Upon evaluation in the ED, patient had a GCS of less than 8 and was subsequently intubated for airway p rotection. She was also noted to have a temperature of 101.3, respiratory rate of 35, blood pressure 107/78 heart rate of 94 at the time of presentation. Labs done at that time showed elevated WBC 13.1, creatinine 2.8, bicarb 18.1, lactate 4.7, glucose 550, AST 146, ALT 61, creatinine kinase 9752, procalcitonin 43.23. UDS was noted to be positive for marijuana and methamphetamine. Head CT was done showing 2 acute embolic CVAs. An MRI was also done showing multiple embolic type foci of restricted diffusion in bilateral occipital lobes, bilateral frontal and bilateral parietal lobes. Patient was subsequently admitted to the ICU for acute hypoxic respiratory failure, acute toxic metabolic encephalopathy and rhabdomyolysis. ICU course: Due to KINJAL on CKD due to multiorgan failure and septic shock, patient was started on CRRT over the course of her ICU stay. An echocardiogram was done on during which patient was found to have a mild apical and global hypokinesis, LVEF of 40 to 45% with tricuspid valve vegetations suggestive of endocarditis. A CTA was also done due to patient's increasing negative FiO2 on the ventilator on 03/28/2025 during which she was found to have multiple bilateral PEs and moving mainly the right lower lobe pulmonary artery and left upper lobe. A venous Doppler also showed extensive nonocclusive DVT in the left lower extremity extending up to the common femoral vein. Due to the concern for hemorrhagic transformation of the patient's embolic CVA, anticoagulation was held. Moreover, the suspicion for infective endocarditis as the cause for the multiple emboli would not indicate for anticoagulation. A repeat head CT was done during 03/30/2025 which did show hemorrhagic transformation with interval multiple areas of subarachnoid hemorrhage involving the right frontal convexity, left frontal parietal convexity in the right frontal sulci. A SYLVIE had been done as well on 03/30/2025 during which no vegetations were seen, but patient had a a trial septal aneurysm and PFO. Blood cultures have been positive for Staph hominis only 1 bottle, more likely secondary to contamination. A urine culture was done showing pansensitive E. coli. Patient had initially been on vancomycin and Zosyn since admission and switched to Rocephin current 2 g IV daily since 03/30. Transfer had been initially initiated on 03/30 for higher level of care due to the concern of multiple embolic strokes in the setting of PFO. However, cardiothoracic surgery at [facility] had low suspicion for embolic stroke caused by small PFO and recommended hypercoagulable workup before considering PFO closure. An IVC filter was placed on 03/31/2025. CT a of chest abdomen pelvis was also done that day showing no left atrial thrombus, PE in upper and lower pulmonary artery branches, pneumonia versus infarct in the right upper lobe and both bases and large splenic infarct with thrombus in upper lobe splenic arteries. Patient was extubated on 03/31. Hypercoagulable workup has been initiated. Skin biopsy was done at bedside of livedo reticularis. Patient was downgraded from ICU post extubation. She appears to have a right-sided neglect on exam. She does require some prompting with commands. Left right leg ulcer appears to be healing and no drainage noted. Left big toe and fifth digit appears to be necrotic. Patient cannot recall why she came to the hospital. She appears to be somewhat confused but is A and O x 3. Gross sensation is intact. On floors: Multiple rapids were called on patient after downgrade due to agitation and confusion. She was started on olanzapine PRN which controlled symptoms. Additionally nursing staff reported that patient had large bowel movement. Repeat H&H testing showed significant acute drop in hemoglobin from around baseline of 8?9 to ~5.6. On 04/13 patient appeared to be more lethargic from baseline. There was concern for airway protection and need for possible massive transfusion therefore upgraded to ICU. Gastroenterology was consulted however deferred workup for GI bleed including EGD due to unstable underlying condition. She was transfused with a total of 2 units PRBC while in the ICU. No need for intubation as patient was returning back to her baseline but still very agitated. Repeat CT head again showed worsening hemorrhage with new lesions in frontal lobe. All anticoagulants/blood thinners were held including her heparin drip. Patient has an A1c of 13.6. And patient states that she only takes metformin outpatient. She also reported history of hypertension with which she takes medication for. Nephrology was consulted for worsening kidney function. She had one HD sesssion while in the ICU. Radiation oncology, Dr. Ogden was consulted and commended CA 19?9 and CA 15-3, also said no acute intervention at this time but recommended patient to follow-up outpatient for PET scan. Interventional radiologist was also curb sided. Stated that none of the patient's masses, fluid in the lung, hilar and adrenal were large enough to biopsy. Goals of care discussion with patient's , Scottie was. Informed about patient's poor prognosis due to high risk of bleeding and further worseni ng of hemorrhagic stroke with further anticoagulation. He was informed of high risks of bleeding and no further anticoagulation at this point. Also discussed difficulties with outpatient hemodialysis with regards to patient's being able to sit in a chair to 3 times a week. Family requested to continue full medical care at this time. Later patient was transferred to [facility] in view of worsening of hemorrhagic stroke on 04/14/2025. No surgical interventions done at that facility and patient was transferred back to us on 04/21/2025. Heme-onc specialist, Dr. Krishna is consulted and he recommended no further anticoagulation in view of patient's condition. Later in view of previous history of low hemoglobin and suspected GI bleed, endoscopy was done that showed gastritis and erythematous duodenopathy. Patient was stable during the entire hospital stay. Repeat head CT done on 04/22/2025 showed stable hemorrhage. Later patient was discharged to nursing facility for further care. Patient is discharged to nursing facility with the following medications and recommendations Please follow-up with your PCP within 1 week of discharge - or follow-up at the [address] [place] [address] Do not take any form of anticoagulants or antiplatelet (blood thinner) medication Take Losartan 50mg by mouth once a day for high blood pressure Take iron supplement Ferric citrate 210 mg by mouth once a day Take Metformin ER 500mg by mouth twice daily for diabetes - ask your doctor if GLP-1 medications may be right for you Use Seroquel 25mg by mouth for nighttime anxiety/agitation Please follow-up with Dr. Krishna (hematology-oncology) and Dr. Oliver (neurology) within 1-2 weeks after discharge If your symptoms worsen or if you develop new chest pain, shortness of breath, dizziness or severe headache - please come back to the ED immediately. Patient plan of care was discussed with the attending physician, Dr. Feng Anna, PGY2 Time Spent with Patient Time attestation: Total time spent providing and/or coordinating discharge services:39 min Time spent: Greater than 30 minutes Exam Vital Signs Temp Pulse Resp BP Pulse Ox O2 Del Method O2 Flow Rate 97.7 F 82 18 142/95 H 98 Room Air 1 04/25/25 20:00 04/25/25 20:00 04/25/25 20:04/25/25 20:04/25/25 20:00 04/25/25 20:00 04/24/25 17:50 Narrative Exam General: Awake. HEENT: Normocephalic, atraumatic, mucous membranes moist. Heart: Regular rate and rhythm, no murmurs. Lungs: Clear to auscultation with no wheezing or crackles. Abdomen: Soft, nondistended, nontender, positive bowel sounds. ?No guarding or rebound tenderness. Neurologic: no gross neurological deficit, and patient able to move all 4 extremities. Extremities: Noted edema and ulcer in right lower extremity. Skin: No rash or ecchymoses. Discharge Plan Plan Patient Disposition: Xfer Skilled Nsg Fac (SNF) Patient condition on transfer: Stable Care Plan Goals: Please follow-up with your PCP within 1 week of discharge - or follow-up at the [facility] [address] [place] [address] Do not take any form of anticoagulants or antiplatelet (blood thinner) medication Take Losartan 50mg by mouth once a day for high blood pressure Take iron supplement Ferric citrate 210 mg by mouth once a day Take Metformin ER 500mg by mouth twice daily for diabetes - ask your doctor if GLP-1 medications may be right for you Use Seroquel 25mg by mouth for nighttime anxiety/agitation Please follow-up with Dr. Krishna (hematology-oncology) and Dr. Oliver (neurology) within 1-2 weeks after discharge If your symptoms worsen or if you develop new chest pain, shortness of breath, dizziness or severe headache - please come back to the ED immediately. Prescriptions/Referrals Prescriptions/Med Rec: New ferric citrate 210 mg iron tablet 210 mg PO QDAY 30 Days Qty: 30 0RF Rx Instructions: administer with a meal zinc sulfate 50 mg zinc (220 mg) Capsule 220 mg PO QDAY 20 Days Qty: 88 0RF multivitamin with folic acid [Tab-A-Vu] 400 mcg Tablet 1 tab PO QDAY 30 Days Qty: 30 0RF ascorbic acid (vitamin C) [Vitamin C] 250 mg Tablet 500 mg PO BID 30 Days Qty: 120 0RF metformin 500 mg tablet extended release 24 hr 500 mg PO BID 30 Days Qty: 60 0RF quetiapine 25 mg Tablet 25 mg PO HS PRN (Reason: agitation) 30 Days Qty: 30 0RF losartan 50 mg tablet 50 mg PO QDAY 30 Days Qty: 30 0RF Discontinued metformin 500 mg tablet 500 mg PO DAILY Patient Comments: take 1 tablet by mouth once daily Referrals: Malik Krishna MD [Physician, Oncology] No Primary/Family,Physician [Primary Care Provider] Jose Oliver MD [Physician, Neurology] Patient/Caregiver Discharge Instructions Education Materials: CGM, Diabetes and Heart Disease, Diabetes: Inspecting Your Feet Print Language: Upper Sorbian Stand Alone Forms: Rosa Elena Award Info., Patient Portal Info Letter Discharge Order Discharge Orders: Discharge (Routine); Ordered 04/25/25 Ordered By: Vj Anna Quality Discharge Quality Measures VTE prophylaxis MD Attestestation MD Attestation I attest that I was physically present for the evaluation, physical examination, lab and imaging review of the patient with the residents. I discussed the case with the residents and agree with the findings and plans of care as documented above. Joe Toney MD
--- NOTE | 2025-04-25 16:05 | PC.NURSE ---
COORDINATED CARE WITH DR. SONG, PER DOCTOR OKAY TO REMOVE MATHUR CATHETER.
--- NOTE | 2025-04-25 16:55 | ESPR_ITS ---
Documentation for date of: 04/25/25 Subjective Subjective Interval history: Hemoglobin hematocrit 8.9 and 28.7 Patient very uncooperative for drinking the GoLytely Putting an NGT and given the GoLytely is not a good idea as she we will pull the tube out Since hemoglobin hematocrit is going up and stable discontinue the GoLytely prep advance diet and cancel colonoscopy that can be done as an outpatient Exam Vital Signs Temp Pulse Resp BP Pulse Ox O2 Del Method O2 Flow Rate 97.8 F 81 18 138/71 H 98 Room Air 1 04/25/25 16:00 04/25/25 16:00 04/25/25 16:00 04/25/25 16:00 04/25/25 16:00 04/25/25 16:00 04/24/25 17:50 Objective Labs 04/25/25 05:33 04/25/25 05:33 Labs: Laboratory Results - last 24 hr 04/25/25 05:33 WBC 9.3 RBC 3.02 L Hgb 8.9 L Hct 28.7 L MCV 95 MCH 29.5 MCHC 31.0 RDW Std Deviation 59.3 H Plt Count 347 D Neut % (Auto) 39 Lymph % (Auto) 48 Gilchrist % (Auto) 8 Eos % (Auto) 3 Baso % (Auto) 1 Neut # (Auto) 3.6 Lymph # (Auto) 4.5 Gilchrist # (Auto) 0.7 Eos # (Auto) 0.3 Baso # (Auto) 0.1 Immature Gran # (Auto) 0.14 H Absolute Nucleated RBC 0.00 Immature Gran % 2 H Nucleated RBC % 0 Sodium 144 Potassium 4.8 D Chloride 109 H Carbon Dioxide 23.6 Anion Gap 11 BUN 9 Creatinine 1.0 Estim Creat Clear Calc 62.6 eGFR > 60 BUN/Creatinine Ratio 9 L Glucose 97 Calculated Osmolality 285 Calcium 9.4 Corrected Calcium 9.6 Phosphorus 4.5 Magnesium 1.3 L Total Bilirubin 0.8 AST 29 ALT 15 Alkaline Phosphatase 73 Total Protein 6.5 Albumin 3.7 Globulin 2.8 Albumin/Globulin Ratio 1.3 Impressions Impression: Anemia blood loss Gastritis Uncooperative patient for GoLytely prep Plan Discontinue the GoLytely prep Cancel the colonoscopy Advance diet as tolerated Case discussed with internal medicine PGY 2 Assessment & Plan A&P Narrative # Posthemorrhagic anemia requiring blood transfusion Initial presentation of hemoglobin of 5.1 and 18.5 hematocrit on 04/13/2025 Plan N.p.o. 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
--- NOTE | 2025-04-25 19:30 | PC.NURSE ---
Per day rn shift report ambulance time for pt pick at 20:30pm. 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 Adviced ambulance personnel to come back at 20:30pm.
--- NOTE | 2025-04-25 20:00 | PC.NURSE ---
Ambulance staff called rn- Advised to call them tel#[phone] when pt is ready to be discharged.
--- NOTE | 2025-04-25 20:30 | PC.NURSE ---
report given to Delia tovar at [facility] tel#[phone], made aware still waiting for pt to pee after hernandez catheter was removed at 17:30pm.
--- NOTE | 2025-04-27 10:21 | PC.SS ---
SS received call from Katerina Mayen from [facility] who requested PASRR assessment be sent. SS has sent PASRR through file exchange.
== END 2025-04-25 21:30 | disposition skilled nursing facility (03) | DRG 45 ==
LOC: S2NX 04-24 08:30 → S3SX 04-24 12:31
PROVIDERS: Specialist; Admitting Provider Student in an Organized Health Care Education/Training Program; Visit Provider Student in an Organized Health Care Education/Training Program
PROC: 0DJ08ZZ Inspection of Upper Intestinal Tract, Via Natural or Artificial Opening Endoscopic (ICD-10-PCS; CPT 43239; principal; 2025-04-24 17:30)
DX: I63.40 Cerebral infarction due to embolism of unspecified cerebral artery (principal); I60.9 Nontraumatic subarachnoid hemorrhage, unspecified; N17.9 Acute kidney failure, unspecified; N18.9 Chronic kidney disease, unspecified; E11.22 Type 2 diabetes mellitus with diabetic chronic kidney disease; I12.9 Hypertensive chronic kidney disease with stage 1 through stage 4 chronic kidney disease, or unspecified chronic kidney disease; F41.9 Anxiety disorder, unspecified; D73.5 Infarction of spleen; G92.8 Other toxic encephalopathy; I25.3 Aneurysm of heart; E11.65 Type 2 diabetes mellitus with hyperglycemia; Q21.12 Patent foramen ovale; I61.1 Nontraumatic intracerebral hemorrhage in hemisphere, cortical; D68.59 Other primary thrombophilia; J45.909 Unspecified asthma, uncomplicated; M62.82 Rhabdomyolysis; J96.01 Acute respiratory failure with hypoxia; R41.4 Neurologic neglect syndrome; Z79.899 Other long term (current) drug therapy; Z95.828 Presence of other vascular implants and grafts; Z79.84 Long term (current) use of oral hypoglycemic drugs; K29.71 Gastritis, unspecified, with bleeding; K31.89 Other diseases of stomach and duodenum; I33.0 Acute and subacute infective endocarditis; F17.200 Nicotine dependence, unspecified, uncomplicated; B96.20 Unspecified Escherichia coli [E. coli] as the cause of diseases classified elsewhere; D63.1 Anemia in chronic kidney disease; E87.20 Acidosis, unspecified; L97.919 Non-pressure chronic ulcer of unspecified part of right lower leg with unspecified severity; I82.412 Acute embolism and thrombosis of left femoral vein
CPT/HCPCS: 36415; 70450; 80053; 82728; 83036; 83540; 83550; 83605; 83735; 84100; 85014; 85018; 85025; 85046; 85610; 85730; 92507; 92523; 92610; 93225; 97162; A4649; J1200; J1630; J1815; J2250; J2470; J2916; J3010; J3475; J7050; J7999; A9270